=== PATIENT | male | born 1940 | race Caucasian/White ===

== ENCOUNTER 2016-07-31 19:36 | Inpatient (IN) | payer OTHER, MEDICARE ==
[~2016-07-31] VITALS: Ht 167.6 cm; Wt 69.0 kg
[2016-07-31] MEDS: ALBUTEROL 0.083% (NEB) 2.5 MG/3 ML AMP NEB SCH (02:00)
[~2016-07-31 19:36] MED LIST: ACET160O41 GTB; ASPI-535 GTB; ATOR10TA65 PO; DEXT37.55 PO; DEXT50DI2 INJ; DILT60TA29 PO; ENOX30DI10 SQ; GLUC1VIA7 IM; HYDR28CR43 TP; INSU100I22 SQ; MORP2CAR IV; NORM5DIS26 IJ; PANT40VI7 IV; RANI300T PO; [UNRECOGNIZED DRUG - CODE] IV; [UNRECOGNIZED DRUG - CODE] PO; [UNRECOGNIZED DRUG - OTHER] IV
--- NOTE | 2016-07-31 20:28 | RADRPT ---
PROCEDURE: XR Chest. CLINICAL INDICATION: Sepsis. TECHNIQUE: Chest x-ray, single view. COMPARISON: 10/14/2013. FINDINGS: The cardiac silhouette is magnified. Aortic arch atherosclerotic calcification is present. Low rain g volumes are observed. The lungs are clear. Skeletal structures and upper abdomen are unremarkabl e. IMPRESSION: No radiographic evidence of acute cardiopulmonary pathology. Low inspiratory lung volumes. RPTAT: HLST .Amber Orosco MD, MD Date Time Electronically viewed and signed by .Amber Orosco MD, MD on 07/31/2016 20:28 .T/
[2016-07-31 20:39] LABS: HEMATOCRIT 26.8 % (42.0-52.0); MEAN CORPUSCULAR HEMOGLOBIN 25.3 pg (29.0-33.0); MEAN CORPUSCULAR HGB CONC 33.7 g/dl (32.0-37.0); MEAN CORPUSCULAR VOLUME 75.1 fl (82.0-101.0); MEAN PLATELET VOLUME 9.1 fl (7.4-10.4); PLATELET COUNT 402 10^3/UL (140-440); RED BLOOD COUNT 3.57 10^6/ul (4.70-6.10); RED CELL DISTRIBUTION WIDTH 17.8 % (11.5-14.5); UNCORRECTED WBC 31.1 10^3/ul (4.8-10.8); WHITE BLOOD COUNT 31.1 10^3/ul (4.8-10.8)
[2016-07-31 20:45] LABS: CONDITION 1; SUSPECT 1
[2016-07-31 20:47] LABS: INR 0.99; PROTIME 13.1 Sec (12.2-14.2)
[2016-07-31 20:48] LABS: PARTIAL THROMBOPLASTIN TIME 29.2 Sec (25.0-35.0)
[2016-07-31] MEDS ORDERED: DILT120C77 GTB (20:51)
[2016-07-31] MEDS ORDERED: CHLO473M4 MM (20:54)
[2016-07-31] MEDS ORDERED: DOCU-144 GTB (20:55)
[2016-07-31] MEDS ORDERED: SODIUM CHLORIDE 0.9% 1L BAG IV* STA (20:55)
[2016-07-31 20:56] LABS: ALBUMIN 3.7 g/dl (3.3-4.9); POTASSIUM 5.7 mmol/L (3.5-5.1)
[2016-07-31] MEDS ORDERED: DOXA4TAB3 GTB (20:56)
[2016-07-31] MEDS ORDERED: DIGO125T6 GTB (20:56)
[2016-07-31] MEDS ORDERED: BISA10SU55 RC (20:57)
[2016-07-31 20:58] LABS: CREATININE 2.01 mg/dl (0.61-1.24)
[2016-07-31] MEDS ORDERED: OMEP20CA16 GTB (20:58)
[2016-07-31 20:59] LABS: ALBUMIN/GLOBULIN RATIO 1.05; BILIRUBIN,INDIRECT 0.1 mg/dl (0-1.1); BILIRUBIN,TOTAL 0.1 mg/dl (0.2-1.3); CALCIUM 11.6 mg/dl (8.4-10.2); TOTAL PROTEIN 7.2 g/dl (6.1-8.1)
[2016-07-31] MEDS ORDERED: MAGN400O4 GTB (20:59)
[2016-07-31 21:00] VITALS: TEMP 100.8
[2016-07-31] MEDS ORDERED: ENOX40DI14 SC (21:00)
[2016-07-31] MEDS ORDERED: ATOR20TA38 GTB (21:01)
[2016-07-31] MEDS ORDERED: NA P135E RC (21:02)
[2016-07-31] MEDS ORDERED: CRAN3875 GTB (21:04)
[2016-07-31] MEDS ORDERED: ASCO500S2 GTB (21:04)
[2016-07-31 21:05] LABS: ADD UMIC YES; URINE BLOOD (Dip) 3+ (NEGATIVE); URINE COLOR DK. RED (YELLOW); URINE KETONES (Dip) TRACE (NEGATIVE); URINE LEUKOCYTE ESTERASE (Dip) 2+ (NEGATIVE); URINE NITRITE (Dip) POSITIVE (NEGATIVE); URINE TOTAL PROTEIN (Dip) 4+ (NEGATIVE); URINE UROBILINOGEN (Dip) 1.0 E.U./dL (0.1-1.0)
[2016-07-31] MEDS ORDERED: ACET-2047 GTB ×2 (21:06→21:07)
[2016-07-31 21:08] LABS: URINE BILIRUBIN (Dip) NEGATIVE (NEGATIVE)
[2016-07-31] MEDS ORDERED: ACET-141 GTB (21:08)
[2016-07-31 21:09] LABS: TROPONIN-I 0.071 ng/ml (0.00-0.12)
[2016-07-31] MEDS ORDERED: LACTINEXG GTB (21:10)
[2016-07-31] MEDS ORDERED: ALBU2.5V3 NEB ×2 (21:10)
[2016-07-31 21:14] LABS: BACTERIA,URINE MODERATE; SQUAMOUS EPITHELIAL CELL,UR MODERATE; URINE RBCS >200 /HPF (0)
[2016-07-31 21:26] LABS: EOSINOPHILS # 0.6 10^3/ul (0.0-0.5); LYMPHOCYTES # 3.1 10^3/ul (0.8-2.9); MONOCYTE # 1.2 10^3/ul (0.3-0.9); NEUTROPHIL # 26.1 10^3/ul (1.6-7.5)
[2016-07-31 21:27] LABS: PLATELET ESTIMATE PLT APPEAR ADEQUATE; POLYCHROMASIA 1+
[2016-07-31] MEDS ORDERED: FERR220S3 GTB (21:33)
[2016-07-31] MEDS ORDERED: MULTI GTB (21:35)
[2016-07-31] MEDS ORDERED: FENO160T13 GTB (21:35)
[2016-07-31] MEDS ORDERED: VANCOMYCIN 1 GM (PMX) 250 ML IVPB STA (22:01)
[2016-07-31] MEDS ORDERED: PIPER-TAZO 3.375 GM IV (PMX) 100 ML IVPB STA (22:01)
[2016-07-31] MEDS ORDERED: DEXTROSE 50% 50 ML SYRINGE IV STA (22:04)
--- NOTE | 2016-07-31 22:11 | ERA ---
ER Documentation Chief Complaint Date/Time DATE: 07/31/16 TIME: 22:05 Chief Complaint BIBA from [facility],c/o hematuria & hyperglycemia accucheck >400 HPI This is a 76 year old male who presents to the emergency room for evaluation of hematuria and hypoglycemia from his fdc. According to his fdc his blood sugar was greater than 400, he did have blood in his [place] and was brought in for further evaluation. This patient is unable to give a history secondary to his clinical condition at this time. When I evaluated this patient he was tachycardic and did have a rectal temp of 100.4F ROS All systems reviewed and are negative except as per history of present illness. Medications Home Meds Reported Medications Multivitamins* (Theragran*) 1 Tab Tab, 1 TAB GTB DAILY, TAB 07/31/16 Fenofibrate, Micronized* (Fenofibrate*) 160 Mg Tablet, 160 MG GTB DAILY, TAB 07/31/16 Ferrous Sulfate (Ferrous Sulfate) 220 Mg/5 Ml Elixir, 7.5 ML GTB DAILY, BOTTLE 07/31/16 Acidophilus-Bulgaricus* (BD Lactinex*) 1 Pkt Packet, 1 PKT GTB BID, PACKET 07/31/16 Albuterol Sulfate* (Albuterol Sulfate* Neb) 0.083%-3 Ml Neb, 2.5 MG NEB Q6 Y for WHEEZING AND SOB, #30 VIAL 07/31/16 Albuterol Sulfate* (Albuterol Sulfate* Neb) 0.083%-3 Ml Neb, 2.5 MG NEB Q3H Y for WHEEZING AND SOB, #30 VIAL 07/31/16 Acetaminophen* (Acetaminophen*) 500 MG Extra Strength Tablet, 1000 MG GTB BID Y for REHAB, TAB 07/31/16 Acetaminophen* (Acetaminophen*) 650 Mg Tablet, 650 MG GTB Q4 Y for TRACH CHANGE , #30 TAB 07/31/16 Acetaminophen* (Acetaminophen*) 650 Mg Tablet, 650 MG GTB Q4 Y for ELEVATED TEMPERATURE, #30 TAB 07/31/16 Acetaminophen* (Acetaminophen*) 650 Mg Tablet, 650 MG GTB Q4 Y for MILD PAIN LEVEL 1-3, #30 TAB 07/31/16 Cran/Vitc/Mannose/Inulin/Brom (Uti-Stat Liquid) 3,875 Mg/30 Ml Liquid, 3875 MG GTB BID 07/31/16 Ascorbic Acid* (Vitamin C* Liq) 500 Mg/5 Ml Syrup, 500 MG GTB DAILY, ML 07/31/16 Na Phos,M-B/Na Phos,Di-Ba (ENEMA READY TO USE) 135 Ml Enema, 135 ML RC PRN Y for CONSTIPATION, ENEMA 07/31/16 Atorvastatin Calcium* (Atorvastatin Calcium*) 20 Mg Tablet, 20 MG GTB QHS, #30 TAB 07/31/16 Enoxaparin Sodium* (Lovenox*) 40 Mg/0.4 Ml Syringe, 40 MG SC DAILY, SYR 07/31/16 Magnesium Hydroxide* (Milk Of Magnesia*) 400 Mg/5 Ml Oral.susp, 30 ML GTB DAILY Y for CONSTIPATION, ML 07/31/16 Omeprazole* (Omeprazole*) 20 Mg Capsule.dr, 20 MG GTB DAILY, #30 CAP GIVE 30MIN PRIOR TO FEEDING 07/31/16 Bisacodyl (Dulcolax) 10 Mg Supp.rect, 10 MG RC PRN Y for CONSTIPATION, SUPP.RECT 07/31/16 Doxazosin Mesylate* (Doxazosin Mesylate*) 4 Mg Tablet, 4 MG GTB HS, TAB 07/31/16 Digoxin* (Lanoxin*) 0.125 Mg Tablet, 0.125 MG GTB DAILY, TAB 07/31/16 Docusate Sodium* (Colace*) 100 Mg Capsule, 100 MG GTB DAILY Y for CONSTIPATION, #30 CAP 07/31/16 Chlorhexidine Gluconate (Peridex) 473 Ml Mouthwash, 15 ML MM Q12, BOTTLE 07/31/16 Diltiazem Hcl* (Cardizem CD*) 120 Mg Cap.sr.24h, 120 MG GTB DAILY, #30 CAP 07/31/16 Glucagon* (Glucagen*) 1 Mg Soln, 1 MG IM Y [id number] NEEDED FOR UNCONCIOUS PATIENT OR NPO PATIENT WITHOUT IV ACCESS BLOOD GLUCOSE RESULT BELOW 70 REPEAT ABOVE TREATMENT EVERY 15 MINUTES UNTIL GLUCOSE IS GREATER THAN OR EQUAL TO 80 08/19/13 Aspirin Ec (Aspir 81) 81 Mg Tablet.dr, 81 MG GTB DAILY 08/19/13 Discontinued Reported Medications Levothyroxine Sodium* (Synthroid*) 112 Mcg Tablet, 112 MCG PO 10/14/13 Ranitidine Hcl* (Ranitidine Hcl*) 300 Mg Tablet, 300 MG PO 10/14/13 Insulin Aspart (Novolog FlexPen) 100 Unit/1 Ml Insuln.pen, 100 UNIT SQ Q4 SLIDING SCALE MILD ALGORITHM. NOVOLOG MEALTIME INSULIN COVERAGE BLOOD SUGAR: 70-140 0 UNITS 141-180 1 UNIT 181-220 2 UNITS [phone] 3 UNITS 261-300 4 UNITS 301-350 5 UNITS ABOVE 350 CALL PRESCRIBER FOR CORRECTION AND ADJUSTMENT OF MEALTIME/BASAL DOSE. 08/19/13 Normal Saline (Normal Saline Flush) 5 Ml Disp.syrin, 10 ML IJ DAILY WITH PROTONIX IVP 08/19/13 Pantoprazole* (Protonix* IV) 40 Mg Soln, 40 MG IV DAILY 08/19/13 Hydrocortisone (Neosporin) 28 Gm Cream..g., 30 GM TP TID APPLY TO TRACH SITE 08/19/13 Morphine Sulfate* (Morphine*) 2 Mg/1 Ml Cartridge, 2 MG IV Q4 NEEDED 08/19/13 Dextrose (Glutose) 15 Gm Gel..gm., 15 GM PO Y FOR UNCONCIOUS OR NPO PATIENT WITHOUT IV ACCESS FOR BLOOD GLUCOSE READING BELOW 70 IF UNCONCIOUS SQUEEZE GEL INTO LOWER CHEEK AND POSITION PATIENT ON SIDE REPEAT ABOVE TREATMENT EVERY 15 MIN UNTIL GLUCOSE IS GREATER THAN OR EQUAL TO 80 08/19/13 Dextrose (Glutose) 15 Gm Gel..gm., 15 GM PO Y Q15 MIN NEEDED FOR PATIENT WHO ARE ABLE TO SWALLOW FOR BLOOD GLUCOSE RESULT BELOW 51 REPEAT ABOVE TREATMENT EVERY 15 MIN UNTIL GLUCOSE IS GREATER THAN OR EQUAL TO 80 READINGS. 08/19/13 Dextrose (Glutose) 15 Gm Gel..gm., 15 GM PO Y Q15 MIN NEEDED FOR PATIENT WHO ARE ABLE TO SWALLOW FOR BLOOD GLUCOSE RESULT 51-69 REPEAT ABOVE TREATMENT EVERY 15 MIN UNTIL GLUCOSE IS GREATER THAN OR EQUAL TO 80 READINGS. 08/19/13 Enoxaparin Sodium* (Lovenox*) 30 Mg/0.3 Ml Disp.syrin, 30 MG SQ DAILY 08/19/13 Dextrose* (D50W Syringe*) 50 Ml Soln, 50 ML INJ Y Q15MIN NEEDED FOR UNCONCIOUS PATIENT OR NPO PATIENT WITH IV ACCESS FOR BLOOD GLUCOSE BELOW 51 REPEAT ABOVE TREATMENT EVERY 15 MIN UNTIL GLUCOSE IS GREATER THAN OR EQUAL TO 80 READINGS 08/19/13 Dextrose (Glutose) 15 Gm Gel..gm., 15 GM PO Y NEEDED FOR PATIENT ABLE TO SWALLOW FOR BLOOD SUGAR 51-69 08/19/13 Glucagon* (Glucagen*) 1 Mg Soln, 1 MG IM NEEDED FOR UNCONCIOUS OR NPO PATIENT FOR BLOOD SUGAR BELOW 70 08/19/13 Enoxaparin Sodium* (Lovenox*) 30 Mg/0.3 Ml Disp.syrin, 30 MG SQ DAILY 08/19/13 Diltiazem Hcl* (Cardizem*) 60 Mg Tablet, 30 MG PO Q8 HOLD FOR SBP LESS THAN 90 08/19/13 Dextrose* (D50W Syringe*) 50 Ml Soln, 50 ML INJ FOR BLOOD SUGAR 51-69 UNCONCIOUS OR NPO PATIENT WITH IV ACCESS REPEAT ABOVE TREATMENT EVERY 15 MINUTES UNTIL GLUCOSE IS GREATER THAN OR EQUAL TO 80 READINGS. 08/19/13 Dextrose (D5w) 100 Ml Iv.soln., 1000 ML IV 100ML/HR 08/19/13 Cefepime Hcl (MAXIPIME 1GM/D5W) 1 Gm/50 Ml Soln, 1 GM IV Q12 08/19/13 Atorvastatin Calcium (Atorvastatin Calcium) 10 Mg Tab, 20 MG PO DAILY 08/19/13 Acetaminophen* (Acetaminophen* Susp) 160 Mg/5 Ml Oral.susp, 650 MG GTB Q4 ACETAMINOPHEN 650MG/20.3ML CUP LIQUID TYLENOL MAXIMUM TOTAL ACETAMONIOPHEN 5 DOSES/24 HOURS CHECK FOR OTHER MEDS CONTAINING ACETAMINOPHEN 08/19/13 Allergies Allergies: Coded Allergies: No Known Allergy (Unverified , 07/31/16) PMhx/Soc History of Surgery: Yes (G-tube) Anesthesia Reaction: No Hx Neurological Disorder: Yes (CVA) Hx Respiratory Disorders: No (TRACH) Hx Cardiac Disorders: No Hx Psychiatric Problems: No Hx Miscellaneous Medical Probl: Yes (dyslipidemia, hematuria, neurogenic bladder) Hx Alcohol Use: No Hx Substance Use: No Hx Tobacco Use: No Smoking Status: Unknown if ever smoked Physical Exam Vitals Vital Signs Date Time Temp Pulse Resp B/P Pulse Ox O2 Delivery O2 Flow Rate FiO2 07/31/16 21:00 100.8 07/31/16 20:52 5 07/31/16 19:58 98.0 102 19 113/57 96 Physical Exam INITIAL VITAL SIGNS: Reviewed by me GENERAL: The patient is in ill-appearing older gentleman HEENT: Tracheostomy pupils equal, round, and reactive to light. EOMI. There is no scleral icterus. NECK: C-spine is soft and supple, there is no meningismus. There is no cervical lymphadenopathy. LUNGS: Clear to auscultation bilaterally. There are no rales, wheezes or rhonchi. HEART: Tachycardia, no murmurs, clicks, rubs or gallops. ABDOMEN: PEG tube in place soft, non-tender, non-distended. There are bowel sounds in all four quadrants. No rebound or guarding. EXTREMITIES: There is no peripheral cyanosis or edema. No focal swelling or erythema. NEUROLOGICAL: The patient moves all four extremities with 5/5 strength. Cranial nerves II - XII are intact. Normal gait. Alert and oriented SKIN: Warm to touch, there is no apparent rash or petechiae. HEME/LYMPHATIC: There is no evidence of excessive bruising or lymphedema. PSYCHIATRIC: The patient does not appear anxious or depressed. Result Diagram: 07/31/16201807/31/162018 Results 24 hrs Laboratory Tests Test 07/31/16 20:19 07/31/16 20:47 Activated Partial Thromboplast Time 29.2Sec Alanine Aminotransferase (ALT/SGPT) 23IU/L Albumin 3.7g/dl Albumin/Globulin Ratio 1.05 Alkaline Phosphatase 95IU/L Anion Gap 21 Aspartate Amino Transf (AST/SGOT) 20IU/L Blood Morphology Comment Blood Urea Nitrogen 63mg/dl Calcium Level 11.6mg/dl Carbon Dioxide Level 26mmol/L Chloride Level 88mmol/L Creatinine 2.01mg/dl Direct Bilirubin 0.00mg/dl Eosinophils # 0.610^3/ul Eosinophils % 2.0% Globulin 3.50g/dl Glucose Level 277mg/dl Hematocrit 26.8% Hemoglobin 9.0g/dl INR International Normalized Ratio 0.99 Indirect Bilirubin 0.1mg/dl Lactic Acid Level 3.4mmol/L Lymphocytes # 3.110^3/ul Lymphocytes % 10.0% Mean Corpuscular Hemoglobin 25.3pg Mean Corpuscular Hemoglobin Concent 33.7g/dl Mean Corpuscular Volume 75.1fl Mean Platelet Volume 9.1fl Monocytes # 1.210^3/ul Monocytes % 4.0% Neutrophils # 26.110^3/ul Neutrophils % 84.0% Nucleated Red Blood Cells % 1.0/100WBC Platelet Count 09597^3/UL Platelet Estimate PLT APPEAR ADEQUATE Polychromasia 1+ Potassium Level 5.7mmol/L Prothrombin Time 13.1Sec Prothrombin Time Ratio 1.0 Red Blood Count 3.5710^6/ul Red Cell Distribution Width 17.8% Sodium Level 129mmol/L Total Bilirubin 0.1mg/dl Total Protein 7.2g/dl Troponin I 0.071ng/ml White Blood Count 31.110^3/ul Urine Bacteria MODERATE Urine Bilirubin NEGATIVE Urine Clarity CLEAR Urine Color DK. RED Urine Glucose 0.25%% Urine Hemoglobin 3+ Urine Ketones TRACE Urine Leukocyte Esterase 2+ Urine Microscopic RBC >200/HPF Urine Microscopic WBC >50/HPF Urine Nitrite POSITIVE Urine Specific Iron 1.020 Urine Squamous Epithelial Cells MODERATE Urine Total Protein 4+ Urine Urobilinogen 1.0 E.U./dL Urine pH 7.0 Current Medications Medications (Trade) Dose Ordered Sig/Davidson Route PRN Reason Start Time Stop Time Status Last Admin Dose Admin Sodium Chloride 2470 ml 2,470 ml BOLUS OVER 2 HOURS STAT IV* 07/31/16 20:55 07/31/16 20:56 DC 07/31/16 21:01 Vancomycin HCl 250 ml @ 125 mls/hr ONCE STAT IVPB 07/31/16 22:01 08/01/16 00:00 Piperacillin Sod/ Tazobactam Sod 100 ml @ 200 mls/hr ONCE STAT IVPB 07/31/16 22:01 07/31/16 22:30 Calcium Gluconate/ Sodium Chloride (Ca Gluc/NS) 110 ml @ 110 mls/hr ONCE ONCE IVPB 07/31/16 22:30 07/31/16 23:29 Insulin Human Regular (Humulin R) 10 unit ONCE ONCE IV 07/31/16 22:30 07/31/16 22:31 Dextrose 50 ml 50 ml ONCE STAT IV 07/31/16 22:04 07/31/16 22:06 DC Sodium Chloride (NS) 1,000 ml @ 75 mls/hr [id number] IV 07/31/16 22:17 UNV IV Flush (NS 3 ml) 3 ml PER PROTOCOL IV 07/31/16 22:30 UNV Lorazepam (Ativan) 0.5 mg Q6H PRN IV ANXIETY 07/31/16 22:30 UNV Ondansetron HCl (Zofran Inj) 4 mg Q6H PRN IV NAUSEA AND/OR VOMITING 07/31/16 22:30 UNV Nitroglycerin (Nitroglycerin (Sl Tab) 0.4 Mg) 1 tab Q5M PRN SL CHEST PAIN 07/31/16 22:30 UNV Acetaminophen (Tylenol Supp) 650 mg Q6H PRN LA PAIN LEVEL 1-3 OR FEVER 07/31/16 22:30 UNV Morphine Sulfate (morphine) 2 mg Q4H PRN IV PAIN LEVEL 7-10 07/31/16 22:30 UNV Bisacodyl (Dulcolax Supp) 10 mg DAILY PRN LA CONSTIPATION 07/31/16 22:30 UNV Famotidine (Pepcid Iv) 20 mg Q12 IV 08/01/16 09:00 UNV Insulin Aspart (Novolog Insulin Pen) NOVOLOG *MILD* ALGORI... Q4 SC 08/01/16 01:00 UNV Miscellaneous Information (* Miscellaneous Pharmacy Order) HYPOGLYCEMIA PROTOCOL w... ONCE ONCE XX 07/31/16 22:30 07/31/16 22:31 UNV Miscellaneous Information (* Miscellaneous Pharmacy Order) Discontinue Glyburide, Glipizide,... ONCE ONCE XX 07/31/16 22:30 07/31/16 22:31 UNV Miscellaneous Information (* Miscellaneous Pharmacy Order) Discontinue all previ... ONCE ONCE XX 07/31/16 22:30 07/31/16 22:31 UNV Albuterol (Ventolin Hfa) 4 puff Q2H RESP THERAPY PRN INH SHORTNESS OF BREATH 07/31/16 22:30 UNV Albuterol (Proventil 0.083% (Neb)) 2.5 mg Q3H PRN NEB WHEEZING AND SOB 07/31/16 22:30 UNV Albuterol (Proventil 0.083% (Neb)) 2.5 mg Q6 PRN NEB WHEEZING AND SOB 07/31/16 22:30 UNV Ascorbic Acid (Vitamin C) 500 mg DAILY GTB 08/01/16 09:00 UNV Procedures/MDM Chest X-ray 1V Interpreted by me: Soft Tissue: No acute abnormalities Bones: No acute abnormalities Mediastinum/Cardiac Silhouette/Lungs: [No acute abnormalities] EKG: Rate/Rhythm: Sinus tachycardia QRS, ST, T-waves: [No changes consistent w/ acute ischemia] Impression: [No evidence of ischemia or arrhythmia] This is a 76-year-old male who presents to the emergency room for evaluation of a leukocytosis. This patient was sent from his fdc, further history was unobtainable from this patient. He did have a rectal temp of 100.8F. I did note that he was also tachycardic and the patient did undergo a septic workup with did show acute urinary tract infection with leukocytosis of 31,000 and lactic acid greater than 3 consistent with severe sepsis. The patient was given greater than 30 cc/kg of IV normal saline, he was started on vancomycin and Zosyn, there is no need for IV vasopressors at this time as the patient's mean arterial pressure is greater than 65. This patient will be admitted at this time to the telemetry floor under the care of our panel physician Dr. Razo. This patient was found also of acute renal failure with hyperkalemia. He was given calcium gluconate, Kayexalate, insulin, and D50. This patient also has hyponatremia, will be treated with IV fluids at this time. Patient's infectious symptoms have not stabilized and the patient is at risk of rapid decompensation. The patient will be admitted for careful hydration, antibiotic therapy, and infectious source control. Severe Sepsis Assessment: Infectious Source: Cystitis End organ damage indicated by: [Lactate > 2.0 mmol/L Hypotension( SBP < 90 or >40 mmHG drop or MAP < 65) Acute Resp Failure (sat < 92% w/o oxygen) Stuffer > 2.0 INR > 1.5 Plt < 100 Bili > 2] Severe Sepsis Managment: Blood Cultures X 2 before broad spectrum antibiotics initiated within 3 hours of recognition. 30 ml/kg NS bolus Completed Initial Lactate: 3.4 Repeat Lactate pending Critical Care: Time: 48 minutes Treatments/Evaluations: Emergent fluid management, while maintaining close respiratory support. Immediate broad spectrum antibiotic therapy. Simultaneous assessment for possible sources in order to direct therapy. Consideration for invasive and chemical support to prevent respiratory or cardiac collapse. Septic Shock Assessment (1 hour post 30 ml/kg fluid bolus): Hypotension (SBP < 90 or 40 mmHg drop, MAP < 65): [No] Lactic acid > 4.0 [No] Perfusion Reassessment for Septic Shock: Temp 98], [id number] RR 18, BP 113/57 Heart Exam: [Tachycardic] Lung Exam: [No Crackles] Capillary Refill: [Delayed] Peripheral Pulses: [Radially present] Skin: [Mottled, pale] Hypotensive Treatment (not required for isolated lactic acid elevation): Comfort Care: No Central LIne: [XOXOXO] Vasopressor started: [norepinephrine] I considered further perfusion assessment with CVP measurement, SCVO2, bedside ultrasound volume assessment, passive leg raise, trial of further fluid bolus. And preceded with further fluid bolus Accepting Care Team: Current data and ongoing care discussed. Time: Time of admission Primary Provider: José Consulting: [[email or web address]] Outstanding Data: none Departure Diagnosis: Primary Impression: Severe sepsis Additional Impressions: Acute cystitis Hyperkalemia Hyponatremia Acute renal failure Condition: Serious RICK CARTER DO Jul 31, 2016 22:10
[2016-07-31] MEDS: SOD CHLORIDE 0.9% 1,000 ML IV SCH (22:17)
[2016-07-31] MEDS ORDERED: SOD CHLORIDE 0.9% 1,000 ML IV SCH (22:27)
[2016-07-31] MEDS ORDERED: CALCIUM GLUCONATE 10% 1 GM in SOD CHLORIDE 0.9% 100 ML IVPB ONE (22:30)
[2016-07-31] MEDS ORDERED: NACL 0.9% 3 ML SYG IV SCH (22:30)
[2016-07-31] MEDS ORDERED: INSULIN REGULAR, HUMAN 100 UNIT/1 ML 3ML VIAL IV ONE (22:30)
[2016-07-31] MEDS ORDERED: ALBUTEROL 0.083% (NEB) 2.5 MG/3 ML AMP NEB PRN (22:30)
[2016-07-31] MEDS ORDERED: morphine 2 MG INJ IV PRN (22:30)
[2016-07-31] MEDS ORDERED: ALBUTEROL HFA 8 GM INHALER INH PRN (22:30)
[2016-07-31] MEDS ORDERED: VANCOMYCIN IV PER PHARMACY XX SCH (22:30)
[2016-07-31] MEDS ORDERED: MAGNESIUM HYDROXIDE 30ML CUP GTB PRN (22:30)
[2016-07-31] MEDS ORDERED: ACETAMINOPHEN 650 MG SUPP PR PRN (22:30)
[2016-07-31] MEDS ORDERED: NITROGLYCERIN (SL) 0.4 MG TAB SL PRN (22:30)
[2016-07-31] MEDS ORDERED: LORAZEPAM 2 MG INJ IV PRN (22:30)
[2016-07-31] MEDS ORDERED: ONDANSETRON 4 MG INJ IV PRN ×2 (22:30)
[2016-07-31] MEDS ORDERED: BISACODYL 10 MG SUPP PR PRN (22:30)
[2016-07-31] MEDS ORDERED: ACETAMINOPHEN 325 MG TAB PO PRN (22:30)
[2016-07-31 22:50] LABS: CHOLESTEROL 103 mg/dl (100-200)
[2016-07-31 22:51] LABS: HDL CHOLESTEROL 17 mg/dl (31-75); MAGNESIUM 2.5 mg/dl (1.7-2.5); TRIGLYCERIDES 434 mg/dl (0-149)
--- NOTE | 2016-07-31 22:54 | HP ---
Date/Time of Note Date/Time of Note DATE: 07/31/16 TIME: 22:42 Assessment/Plan VTE Prophylaxis VTE Prophylaxis Intervention: contraindicated VTE Contraindication Reason: bleeding Lines/Catheters Urinary Cath still in place: Yes Reason Cath still needed: urinary retention Assessment/Plan Assessment/Plan 76 yo male with a past medical history of trach/peg, SVT, anemia of chronic disease, indwelling catheter 2/2 neurogenic bladder, ASHD, essential hypertension, BPH, type II DM, CVA, dyslipidemia, GERD, previous GI bleed, COPD , who was brought in via ambulance from [facility] for evaluation of hematuria. 1. Hematuria - multifactorial - will admit the patient to telemetry - consult urology, avoid lovenox/aspirin - monitor UOP 2. Sepsis 2/2 UTI - tachycardia/leukocytosis - broad spectrum antibiotics, cultures drawn, ID c/s 3. ARF - 2/2 to #2 - dehydration - will continue with IVF 4. Trach dependent respiratory failure - will consult pulm 5. CVA with residual weakness/contractures - aspirin held for gross hematuria 6. Essential hypertension - continue with current SNF medications 7. Type II DM - ISS, check [id number] 8. GERD - pepcid IV 9. Anemia of chronic disease - monitor H/H, if < 8 g/dL consider tranfusion 10. Neurogenic bladder - see #1 11. Dyslipidemia - continue with statin 12. COPD - breathing treatments prn 13. Gi ppx - pepcid 14. DVT ppx - scds as per clinical course. this history and physical took greater then 45 minutes to complete HPI/ROS Admit Date/Time Admit Date/Time 07/31/2016, 10:42 pm Hx of Present Illness 76 yo male with a past medical history of trach/peg, SVT, anemia of chronic disease, indwelling catheter 2/2 neurogenic bladder, ASHD, essential hypertension, BPH, type II DM, CVA, dyslipidemia, GERD, previous GI bleed, COPD , who was brought in via ambulance from [facility] for evaluation of hematuria. All this information was gathered from the Chart and ED physician as he is not verbal communicating. 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 Medical History: coronary artery disease, diabetes, GERD, GI bleed, high cholesterol, hypertension, urinary tract infection Past Surgical History trach, PEG, cystoscopy, colonoscopy Family History Significant Family History: no pertinent family hx Social History Alcohol Use: none Smoking Status: Unknown if ever smoked Drug Use: none Exam/Review of Systems Vital Signs Vitals Vital Signs Date Time Temp Pulse Resp B/P Pulse Ox O2 Delivery O2 Flow Rate FiO2 07/31/16 21:00 100.8 07/31/16 20:52 5 07/31/16 19:58 102 19 113/57 96 Exam Exam Gen Erin: alert to self HEENT: NC/AT, PERRLA, trach, with copious secretions NECK: supple, no thyromegaly THORAX: symmetrical, no obvious deformities CV: S1S2, tachycardiac, no M/G/R Lungs: decreased aeration bibasilar, no wheezing/rhonchi Abd: soft, NT/ND, +BS, no rebound, no guarding, neg HSM, PEG site C/D/I, thapa noted EXT: no edema, no ecchymosis, no clubbing, contractures noted Neuro: contractures Psych: withdrawn Skin: clammy Labs Result Diagram: 07/31/16201807/31/162018 Medications Medications Current Medications Calcium Gluconate 1 gm/Sodium Chloride 110 ml @ 110 mls/hr ONCE ONCE IVPB ; Start 07/31/16 at 22:30; Stop 07/31/16 at 23:29 Sodium Chloride (NS) 1,000 ml @ 75 mls/hr [id number] IV ; Start 07/31/16 at 22:17; Status UNV Lorazepam (Ativan) 0.5 mg Q6H PRN IV ANXIETY; Start 07/31/16 at 22:30; Status UNV Ondansetron HCl (Zofran Inj) 4 mg Q6H PRN IV NAUSEA AND/OR VOMITING; Start 07/31 at 22:30; Status UNV Nitroglycerin (Nitroglycerin (Sl Tab) 0.4 Mg) 1 tab Q5M PRN SL CHEST PAIN; Start 07/31/16 at 22:30; Status UNV Acetaminophen (Tylenol Supp) 650 mg Q6H PRN [place] PAIN LEVEL 1-3 OR FEVER; Start 07/31/16 at 22:30; Status UNV Morphine Sulfate (morphine) 2 mg Q4H PRN IV PAIN LEVEL 7-10; Start 07/31/16 at 22:30; Status UNV Bisacodyl (Dulcolax Supp) 10 mg DAILY PRN CA CONSTIPATION; Start 07/31/16 at 22: 30; Status UNV Famotidine (Pepcid Iv) 20 mg Q12 IV ; Start 08/01/16 at 09:00; Status UNV Insulin Aspart (Novolog Insulin Pen) NOVOLOG *MILD* ALGORI... Q4 SC ; Start 05/08 at 01:00; Status UNV Miscellaneous Information (* Miscellaneous Pharmacy Order) HYPOGLYCEMIA PROTOCOL w... ONCE ONCE XX ; Start 07/31/16 at 22:30; Stop 07/31/16 at 22:31; Status UNV Miscellaneous Information (* Miscellaneous Pharmacy Order) Discontinue Glyburide , Glipizide,... ONCE ONCE XX ; Start 07/31/16 at 22:30; Stop 07/31/16 at 22:31; Status UNV Miscellaneous Information (* Miscellaneous Pharmacy Order) Discontinue all previ... ONCE ONCE XX ; Start 07/31/16 at 22:30; Stop 07/31/16 at 22:31; Status UNV Albuterol (Proventil 0.083% (Neb)) 2.5 mg Q3H PRN NEB WHEEZING AND SOB; Start 07/31/16 at 22:30; Status UNV Albuterol (Proventil 0.083% (Neb)) 2.5 mg Q6 PRN NEB WHEEZING AND SOB; Start at 22:30; Status UNV Ascorbic Acid (Vitamin C) 500 mg DAILY GTB ; Start 08/01/16 at 09:00; Status UNV Atorvastatin Calcium (Lipitor) 20 mg QHS GTB ; Start 08/01/16 at 21:00; Status UNV Chlorhexidine Gluconate (Peridex) 15 ml Q12 MM ; Start 08/01/16 at 09:00; Status UNV Digoxin (Digoxin) 0.125 mg DAILY GTB ; Start 08/01/16 at 09:00; Status UNV Diltiazem HCl (Cardizem Cd) 120 mg DAILY PO ; Start 08/01/16 at 09:00; Status UNV Doxazosin Mesylate (Cardura) 4 mg HS GTB ; Start 08/01/16 at 21:00; Status UNV Ferrous Sulfate (Ferrous Sulfate) 330 mg DAILY GTB ; Start 08/01/16 at 09:00; Status UNV Magnesium Hydroxide (Milk Of Mag) 30 ml DAILY PRN GTB CONSTIPATION; Start at 22:30; Status UNV Multivitamins Therapeutic (Theragran) 1 tab DAILY GTB ; Start 08/01/16 at 09:00 ; Status UNV Miscellaneous Information 1 pkt BID GTB ; Start 08/01/16 at 09:00; Status UNV Miscellaneous Information 3,875 mg BID GTB ; Start 08/01/16 at 09:00; Status UNV Miscellaneous Information 160 mg 160 mg DAILY GTB ; Start 08/01/16 at 09:00; Status UNV Cefepime HCl 50 ml @ 100 mls/hr Q12 IVPB ; Start 08/01/16 at 09:00; Status UNV Sodium Chloride (NS) 1,000 ml @ 125 mls/hr Q8H IV ; Start 07/31/16 at 22:27; Stop 08/01/16 at 06:26 Procedures Procedures CXR IMPRESSION: No radiographic evidence of acute cardiopulmonary pathology. Low inspiratory lung volumes. EV PEMBERTON MD Jul 31, 2016 22:53
[2016-07-31 23:22] LABS: THYROID STIMULATING HORMONE 0.651 MIU/L (0.465-4.680)
[2016-07-31] MEDS ORDERED: GLUCOSE GEL 15 GRAM TUBE BUCCAL PRN (23:30)
[2016-07-31] MEDS ORDERED: GLUCOSE GEL 15 GRAM TUBE PO PRN ×2 (23:30)
[2016-07-31] MEDS ORDERED: DEXTROSE 50% 50 ML SYRINGE IV PRN ×2 (23:30)
[2016-07-31] MEDS ORDERED: GLUCAGON 1 MG INJ IM PRN (23:30)
[2016-08-01] VITALS (11 sets, daily range): BP systolic 91–139; BP diastolic 52–80; PULSE 101–117; RESP 18–19; Ht 167.6 cm; Wt 69.0 kg
[2016-08-01] MEDS: INSULIN ASPART [NOVOLOG] 3 ML PEN SC SCH ×7 (01:00→22:19)
[2016-08-01 07:19] LABS: HEMATOCRIT 22.1 % (42.0-52.0); HEMOGLOBIN 7.4 g/dl (14.0-18.0); MEAN CORPUSCULAR HEMOGLOBIN 25.2 pg (29.0-33.0); MEAN CORPUSCULAR HGB CONC 33.4 g/dl (32.0-37.0); MEAN CORPUSCULAR VOLUME 75.4 fl (82.0-101.0); MEAN PLATELET VOLUME 9.1 fl (7.4-10.4); PLATELET COUNT 341 10^3/UL (140-440); RED BLOOD COUNT 2.92 10^6/ul (4.70-6.10); RED CELL DISTRIBUTION WIDTH 17.5 % (11.5-14.5); UNCORRECTED WBC 25.6 10^3/ul (4.8-10.8); WHITE BLOOD COUNT 25.6 10^3/ul (4.8-10.8)
[2016-08-01 07:21] LABS: CONDITION 1; LH ANALYZER COMMENTS 1; SUSPECT 1
[2016-08-01 07:58] LABS: POTASSIUM 5.4 mmol/L (3.5-5.1)
[2016-08-01 08:01] LABS: CALCIUM 10.4 mg/dl (8.4-10.2); CREATININE 2.07 mg/dl (0.61-1.24)
[2016-08-01] MEDS ORDERED: SOD CHLORIDE 0.9% 250 ML IV* ONE (08:19)
[2016-08-01] MEDS ORDERED: CEFEPIME 1GM/50 ML (PMX) 50 ML IVPB SCH (09:00)
[2016-08-01] MEDS ORDERED: FAMOTIDINE 20 MG INJ IV SCH (09:00)
[2016-08-01] MEDS ORDERED: NON-FORMULARY/PATIENT OWN MED (Fenofibrate, Micronized* (Fenofibrate*) 160 MG) GTB SCH (09:00)
[2016-08-01] MEDS ORDERED: FERROUS SULFATE 220 MG/5 ML ML GTB SCH (09:00)
[2016-08-01] MEDS ORDERED: NON-FORMULARY/PATIENT OWN MED (Cran/Vitc/Mannose/Inulin/Brom (Uti-Stat Liquid) 3,875 MG) GTB SCH (09:00)
[2016-08-01] MEDS ORDERED: ASCORBIC ACID 100 MG/ML 120ML BTL GTB SCH (09:00)
[2016-08-01] MEDS ORDERED: [UNRECOGNIZED DRUG - OTHER] GTB SCH (09:00)
[2016-08-01 09:19] LABS: EOSINOPHILS # 0.3 10^3/ul (0.0-0.5); LYMPHOCYTES # 1.3 10^3/ul (0.8-2.9); NEUTROPHIL # 22.5 10^3/ul (1.6-7.5)
[2016-08-01] MEDS: ALBUTEROL 0.083% (NEB) 2.5 MG/3 ML AMP NEB SCH ×3 (09:34→19:33)
[2016-08-01] MEDS: ASCORBIC ACID 500 MG TAB GTB SCH (10:36)
[2016-08-01] MEDS: CHLORHEXIDINE GLUCONATE 15 ML UD CUP MM SCH ×2 (10:36→22:12)
[2016-08-01] MEDS: FERROUS SULFATE 60 MG/ML 5ML CUP GTB SCH (10:36)
[2016-08-01] MEDS: MULTIVITAMINS THERAPEUTIC TAB GTB SCH (10:37)
[2016-08-01] MEDS: LACTOBACILLUS CHEW TAB GTB SCH ×2 (10:37→22:09)
[2016-08-01] MEDS: FAMOTIDINE 20 MG INJ IV SCH (10:37)
[2016-08-01] MEDS: FENOFIBRATE 145 MG TAB GTB SCH (10:37)
[2016-08-01] MEDS: DILTIAZEM (CD) 120 MG CAP PO SCH (10:40)
[2016-08-01] MEDS: CEFEPIME 2GM/50 ML IVPB SCH (11:08)
[2016-08-01] MEDS: SOD CHLORIDE 0.9% 1,000 ML IV SCH (11:37)
--- NOTE | 2016-08-01 12:55 | CONS ---
DATE OF ADMISSION: 07/31/2016 DATE OF CONSULTATION: 08/01/2016 TYPE OF CONSULTATION: Infectious Disease. REASON FOR CONSULTATION: Antibiotic management. HISTORY OF PRESENT ILLNESS: Kimberley Blackwood is a 76-year-old Greek [place] male with an ext ensive past medical history who comes in with fevers and is being seen for antibiotic management. His past problems include: 1. 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 2. Dysphagia, status post G-tube. 3. SVT. 4. Anemia of chronic disease. 5. Indwelling catheter secondary to neurogenic bladder. 6. Atherosclerotic cardiovascular disease. 7. Hypertension. 8. BPH. 9. Type 2 diabetes mellitus. 10. Cerebrovascular accident. 11. Dyslipidemia. 12. GERD. 13. Previous GI bleed. 14. COPD. The patient was brought in by ambulance from the [facility] for evaluation of hematuri a. He is nonverbal. PAST MEDICAL HISTORY: As outlined. 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 SURGICAL HISTORY: Status post trach, PEG, cystoscopy, colonoscopy. FAMILY HISTORY: Noncontributory. SOCIAL HISTORY: He does not smoke, drink or abuse drugs. ALLERGIES: NONE TO PENICILLIN, SULFA OR FOODS. MEDICATIONS: Per chart. REVIEW OF SYSTEMS: Noncontributory. PHYSICAL EXAMINATION: GENERAL: The patient is an elderly appearing male who is awake, noncommunicative, in no acute distr ess. VITAL SIGNS: Stable. He is afebrile. SKIN: Without generalized rash. HEENT: Within normal limits. NECK: Tracheostomy in place with copious secretions. Neck is supple. LYMPH NODES: None palpable. CHEST: Decreased breath sounds at the bases. HEART: Without murmur or gallop. ABDOMEN: Soft, nontender, without organosplenomegaly or masses. HEART: is tachycardic. CHEST: Decreased breath sounds at the bases is noted without rhonchi or wheezes. ABDOMEN: Soft, nontender without organosplenomegaly or masses. G-tube in place without discharge o r cellulitis. EXTREMITIES: Without cyanosis, clubbing, or edema. RECTAL AND GENITAL: Exams deferred. NEUROLOGIC EVALUATION: The patient is withdrawn, contractures. LABORATORY DATA: White count 31.1, H and H of 9 and 26.8, platelet count is 402,000. BUN and creat inine 63/2.0. Glucose is 277. BUN and creatinine 129/5.7. IMAGING STUDIES: Chest x-ray shows no radiographic evidence of acute pulmonary pathology. IMPRESSION AND PLAN: The patient does come in with fever and was started on vancomycin and cefepime . The patient did have blood in his urine and may have a urinary tract infection. Cultures are pen ding. I will dictate my findings to the hospitalist. Dictated By: VEGA BRUNER MD, JD/GENOVEVA Conf#: [id number] DID#: [id number]
[2016-08-01] MEDS: DIGOXIN 0.125 MG TAB GTB SCH (13:00)
--- NOTE | 2016-08-01 15:02 | CONS ---
DATE OF ADMISSION: 07/31/2016 DATE OF CONSULTATION: TYPE OF CONSULTATION: Pulmonary. REFERRING PHYSICIAN: Alex Kumar MD REASON FOR CONSULTATION: Chronic respiratory failure. HISTORY OF PRESENT ILLNESS: This is a 76-year-old male with a history of chronic respiratory failur e, trach-dependent, history of dysphagia status post G-tube placement, history of SVT, hypertension, atherosclerotic heart disease, anemia of chronic disease, neurogenic bladder with indwelling cathet er, BPH, type 2 diabetes mellitus, history of CVA, dyslipidemia, GERD, history of GI bleed and COPD, who was brought from the subacute care facility with findings of hematuria. He was found to have e vidence of sepsis and UTI and acute renal failure, and subsequently hospitalized. Bladder irrigatio n was started. Cultures were obtained. The patient was started on broad-spectrum antibiotics. Cur rently, the patient remains on oxygen via tracheostomy tube and is saturating 98%. The patient is q uite encephalopathic and is unable to provide any information. REVIEW OF SYSTEMS: Unable to obtain. PAST MEDICAL HISTORY: As mentioned above. ALLERGIES: NO KNOWN ALLERGIES. SOCIAL HABITS: Resident of a subacute care facility. FAMILY HISTORY: Unknown at this time. PHYSICAL EXAMINATION: VITAL SIGNS: Blood pressure 106/52, pulse 90, respirations 18, temperature 98.5. Currently on 28% FIO2, saturating 100%. HEENT: Pupils are equal and reactive to light. Anicteric sclerae. NECK: Supple, no JVD noted. No cervical lymphadenopathy noted. No carotid bruits heard. Tracheos katie site clear. LUNGS: Diminished breath sounds bilaterally with few scattered rhonchi. CARDIOVASCULAR: S1, S2 normal. ABDOMEN: Soft, nontender. G-tube in place. EXTREMITIES: No clubbing or cyanosis noted. Contractures are present in the upper extremities. NEUROLOGIC: The patient is severely encephalopathic. LABORATORY DATA: WBC 25.6, hemoglobin 7.4, hematocrit 22.1, platelets 341. Sodium 132, potassium 5 .4, chloride 93, CO2 of 23, BUN 64, creatinine 2.07, glucose 251. UA shows greater than 200 RBCs, g reater than 50 WBCs, nitrite is positive, leukocyte esterase is also positive. INR is 0.99, PTT is 29.2. IMAGING: Chest x-ray reportedly showed no acute infiltrates. IMPRESSION: A 76-year-old male with: 1. Hematuria secondary to . Also there is evidence of renal calculi on CAT scan. 2. Sepsis. 3. Urinary tract infection. 4. Chronic trach-dependent respiratory failure. 5. History of cerebrovascular accident. 6. Hypertension. 7. Diabetes mellitus type 2. 8. Anemia. 9. Neurogenic bladder. 10. Chronic obstructive pulmonary disease. 11. Dysphagia. RECOMMENDATIONS: 1. Check cultures. 2. Complete antibiotics. 3. Urology evaluation pending. 4. IV hydration. 5. Nephrology evaluation. 6. Followup labs. Dictated By: MARICARMEN MEZA MD, MA/GENOVEVA Conf#: [id number] DID#: [id number]
--- NOTE | 2016-08-01 16:18 | CONS ---
DATE OF ADMISSION: 07/31/2016 DATE OF CONSULTATION: 08/01/2016 REQUESTING PHYSICIAN: Dr. Kumar Dear Dr. Kumar: Thank you for asking me to see this patient in urological consultation. HISTORY OF PRESENT ILLNESS: This is a 76-year-old male who is a resident of a [facility] and has multiple medical problems and he was sent to the hospital yesterday because of gross hem aturia. Apparently, the patient had a Ferreira catheter and the catheter was changed in the emergency room and the urine remains bloody. PAST MEDICAL HISTORY: The patient himself is not capable of giving any history. He does have a his tory of chronic respiratory failure and he has a tracheostomy. He also does have a PEG tube, but it is not being used now. He has a supraventricular tachycardia and anemia. He does have a history o f neurogenic bladder and urinary retention, chronic indwelling Ferreira catheter and he also has arteri osclerotic heart disease, hypertension and type 2 diabetes. He also has a cerebrovascular accident, dyslipidemia, gastroesophageal reflux disease and GI bleed. PAST SURGICAL HISTORY: Includes history of tracheostomy and PEG tube placement. Previously also he has had a cystoscopy and a colonoscopy. He did also have in the past spinal surgery and hardware p lacement. SOCIAL HISTORY: Does not drink and there is no history. He does not smoke, and there is no history of drug abuse. ALLERGIES: HE HAS NO KNOWN DRUG ALLERGY. 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 MEDICATIONS: Presently His medications include: 1. Vancomycin. 2. Atorvastatin. 3. Doxazosin. 4. Digoxin. 5. Cefepime. 6. Cardizem. 7. Theragran. 8. Pepcid. 9. Ferrous sulfate. 10. Lactobacillus. 11. Tricor. 12. Insulin. 13. Multiple p.r.n. medications. PHYSICAL EXAMINATION: GENERAL: Reveals an elderly male who is in a tracheostomy. He weighs 69 kg and he is 66 inches bib l. ABDOMEN: Showed that the bladder is distended all the way up to the umbilicus, even though he does have a catheter that is draining gross bloody urine. GENITALIA: External genitalia otherwise are normal. EXTREMITIES: He does have contractures of his lower extremities. LABORATORY DATA: His CBC yesterday shows a white count of 31,100, today is 25,600, hemoglobin was 9 .0. This morning was 7.4. BUN is 64, creatinine 2.07, sodium 132, potassium 5.4, chloride 93, CO2 of 23. Blood cultures showing gram-positive cocci in clusters. IMPRESSION: 1. Gross hematuria. 2. Urinary clot retention. PLAN: To remove the Ferreira catheter and insert a new Ferreira catheter and irrigate the bladder until w e get all the clots out and then put him on continuous bladder irrigation. I did come in and see maddie nguyen at around 7:40 in the morning and I worked on him until about 9:10 in the morning. During that pe riod of time in addition to the consultation, I did remove the old Ferreira catheter, inserted a new 24 -[place] 3-way 30 mL balloon 3-way Ferreira catheter and I spent a good amount of time over 1 hour hand irrigating the blood clots out of the bladder until I got all the blood clots out and then I did sta rt him on continuous bladder irrigation. Since his hemoglobin has been low, I also asked the nurse to see if they could get order for blood transfusion on him and in fact he is getting blood transfu sions right now. I will follow his urological problem with you. I do thank you for allowing me to help in his care. Dictated By: TANA DUBOIS/GENOVEVA Conf#: [id number] DID#: [id number]
--- NOTE | 2016-08-01 16:52 | PN ---
DATE: 08/01/2016 HOSPITALIST PROGRESS NOTE TIME OF EVALUATION: 12:30 p.m. SUBJECTIVE DATA: The patient remains afebrile. The patient remains on continuous bladder irrigation. OBJECTIVE DATA: VITAL SIGNS: Temperature 98.5, pulse rate 105, respiratory rate 23, blood pressure 106/50, oxygen saturation 97% on oxygen via T-tube to a tracheostomy. GENERAL: This is an elderly, debilitated, male lying in bed in no apparent distress. HEENT: Head normocephalic and atraumatic. Eyes: Anicteric sclerae. Conjunctivae clear. ENT: Nasal septum is midline. Oral mucosa is dry. NECK: Short. Tracheostomy midline. RESPIRATORY: Bilaterally diminished breath sounds. No use of accessory muscles of respiration. Tracheostomy to T-tube. CARDIAC: S1, S2 heard. Tachycardic. ABDOMEN: Soft, nontender. Left upper quadrant G-tube in place. GENITOURINARY: Ferreira catheter with continuous bladder irrigation. EXTREMITIES: No cyanosis, no clubbing. NEUROLOGIC: Awake and alert. Follows commands. Contracture of the RUE. B/L LE flaccid. LABORATORY AND DIAGNOSTIC DATA: WBC 25.6, hemoglobin 7.4, hematocrit 22.1, platelet count 341. Sodium 132, potassium 5.4, chloride 98, carbon dioxide 23, anion gap 21, BUN 64, creatinine 2.07, glucose 251, calcium 10.4. ASSESSMENT AND PLAN: 1. Hematuria. Hold anticoagulation. Continue management as per urology. On continuous bladder irrigation. 2. Sepsis with underlying gram-positive bacteremia. No evidence of any septic shock. Continue antibiotics. Appreciate ID recommendations. 3. Acute kidney injury. Etiology unclear. The patient to be evaluated by nephrology. Nephrology consult was called. 4. Hyperkalemia, most probably secondary to worsening renal function. Will monitor the patient's telemetry rhythm. Will have nephrology evaluate the patient. 5. Essential hypertension. Continue antihypertensives. 6. Type 2 diabetes mellitus. Hemoglobin A1c 7.2. Continue sliding scale insulin. Will also start the patient on basal insulin since the patient was having elevated blood sugars. 7. Anemia of chronic disease. We will monitor the H and H closely. Will transfuse as needed. 8. Dyslipidemia. Continue statins. 9. Chronic obstructive pulmonary disease. Continue inhaled bronchodilators. 10. Hyponatremia. Etiology could be most probably from underlying acute kidney injury with fluid retention. Nephrology to evaluate the patient. 11. Dysphagia. Status post PEG tube placement. Continue aspiration precautions. 12. Chronic respiratory failure. Status post tracheostomy. Continue inhaled bronchodilators. Continue supplemental oxygen via T-tube. 13. Fluid, electrolytes, and nutrition. Continue IV fluids. Will start the patient on G-tube feedings. 14. Deep venous thrombosis prophylaxis. Bilateral SCDs. 15. Gastrointestinal prophylaxis. Histamine 2 receptor blockers. Plan. Continue antibiotics. Continue bladder irrigation as per urology recommendations. The patient is unstable to be discharged. Case discussed with Dr. Cervantes. DAX CERVANTES MD, AM/GENOVEVA Conf#: [id number] DID#: [id number] MTDD
--- NOTE | 2016-08-01 18:33 | CONS ---
DATE OF ADMISSION: 07/31/2016 DATE OF CONSULTATION: 08/01/2016 PHYSICIAN REQUESTING CONSULT: Dr. Pemberton REASON FOR CONSULTATION: Acute kidney injury, hyperkalemia. HISTORY OF PRESENT ILLNESS: This is a 76-year-old male with a past medical history of chronic respi ratory failure, status post tracheostomy, history of SVT, anemia, history of neurogenic bladder with indwelling Ferreira catheter, history of hypertension, BPH, diabetes, history of CVA, dyslipidemia, [place] who was brought in via ambulance from [facility] facility due to evaluation of gross hematur ia and fever. The patient, upon arrival in the emergency room, was noted to be afebrile with temper ature of 100.4. He was tachycardic. The patient, in the emergency room, had a chest x-ray obtained , which showed no findings of acute pulmonary disease. Laboratory data showed a white count of 31,0 00. Urinalysis was positive nitrites. The patient had blood cultures drawn in the emergency room, which showed gram-positive cocci. The patient was started on broad-spectrum antibiotics, IV fluids, and admitted to telemetry for further evaluation. While on telemetry, the patient was placed on co ntinuous bladder irrigation with improvement of his gross hematuria. No other acute events noted. No hemoptysis, hematemesis. In terms of the patient's renal history, the patient comes from a [facility] facility with prev iously unknown baseline serum creatinine. The patient's creatinine upon admission has been around 2 mg/dL. The patient had had gross hematuria that has been resolving. There have been no rashes, no hemoptysis. PAST MEDICAL HISTORY: As stated above. History of diabetes, CVA, GERD, chronic respiratory failure , history of neurogenic bladder with indwelling Ferreira catheter, history of hypertension. PAST SURGICAL HISTORY: Status post trach, status post PEG, status post colonoscopy. FAMILY HISTORY: No family history of kidney disease or heart disease. SOCIAL HISTORY: Lives at a skilled nurse facility. MEDICATIONS: The patient's medications have been reviewed. REVIEW OF SYSTEMS: Unable to do adequate review of systems, as the patient is obtunded. Pertinent positives obtained by reviewing medical records and speaking to hospital staff, stated in HPI, other mathew negative. PHYSICAL EXAMINATION: VITAL SIGNS: Blood pressure is 106/50, respiration 18, pulse 70, temperature 98.5. HEENT: Head is normocephalic. Pupils are reactive to light. NECK: Supple. HEART: Tachycardic. LUNGS: Show diminished breath sounds at base. ABDOMEN: Soft, nontender to palpation without rebound or guarding. EXTREMITIES: Negative for clubbing, cyanosis, edema. DERMATOLOGIC: No rashes. MUSCULOSKELETAL: No joint effusions. NEUROLOGIC: Limited exam due to lack of patient cooperation. LABORATORY DATA: Shows sodium 132, potassium 5.4, chloride 93, BUN 64, creatinine 2.7, glucose 251, calcium 10.4. Lactic acid is 3.0. Hemoglobin A1c 7.2. The patient's white count 25,000; hemoglob in 7.4, hematocrit 22.1, platelet count 341. IMAGING STUDIES: As stated in HPI. ASSESSMENT AND PLAN: This is a 76-year-old male who presents with: 1. Nonoliguric acute kidney injury with unknown baseline creatinine. Etiology of acute kidney inju ry is likely multifactorial secondary to septic acute kidney injury, volume depletion, possible unde rlying tubular injury. The patient's initial urinalysis shows gross hematuria, pyuria, and +4 prote in urine. These findings can be due to underlying gross hematuria and urinary tract infection. The possibility of interstitial nephritis and/or glomerulonephritis is less likely at this time, but wi ll be a consideration. Plan at this point is to check a renal ultrasound to rule out obstruction. Will repeat a urinalysis. We will check urine electrolytes. We will calculate FENa (fractional exc retion of urea). We will quantify the patient's proteinuria by checking a protein/creatinine ratio and an albumin/creatinine ratio. Would recommend to continue current treatment plan with aggressive IV hydration. Continue IV antibiotics. Will monitor renal function closely and if patient does sh ow significant levels of proteinuria, would also consider checking serological data. 2. Hyperkalemia secondary to acute kidney injury. The patient's potassium levels have been improvi ng. Continue IV hydration and monitor. 3. Hyponatremia secondary to acute kidney injury causing decreased free water urinary excretion. W ill continue to monitor with IV hydration. 4. Metabolic acidosis. Etiology secondary to acute kidney injury and lactic acidosis. We will con tinue to treat underlying sepsis, as stated above. Monitor lactic acid levels closely. 5. Gross hematuria. Underlying etiology is unclear. Possibly related to anticoagulation in the se tting of Ferreira catheter. Plan is to get a renal ultrasound. Consider urologic evaluation. Conside r CT scan of the abdomen and pelvis. 6. Sepsis. The patient has positive blood cultures, gram-positive cocci. Underlying source unclea r, possible urinary tract infection. Continue current medical management. Continue antibiotics. C ontinue IV fluids. Follow up with infectious disease. 7. Anemia. Etiology is like from gross hematuria. The patient is being transfused 2 units PRBC. Monitor H and H levels. 8. Chronic respiratory failure, status post tracheostomy. Currently stable on trach mask. We will continue. Follow up with pulmonary. 9. Diabetes. Will continue Accu-Cheks and sliding scale. 10. History of hypertension. Blood pressure currently controlled. Continue to monitor. 11. Acute encephalopathy on chronic dementia. Etiology is likely toxic metabolic. We will continu e current treatment plan. 12. Previous history of cerebrovascular accident. Continue medical management. 13. Neurogenic bladder with indwelling Ferreira catheter. Continue to monitor. Thank you, Dr. Pemberton, for this interesting consult. It will be a pleasure to follow patient with you throughout the hospital course. Dictated By: JOSÉ BLISS DO NR/NTS Conf#: [id number] DID#: [id number] CC: EV PEMBERTON MD;*EndCC*
[2016-08-01] MEDS ORDERED: INSULIN GLARGINE [LANtus] 3 ML PEN SC SCH (21:00)
[2016-08-01] MEDS ORDERED: DOXAZOSIN 4 MG TAB GTB SCH (21:00)
[2016-08-01] MEDS: ATORVASTATIN 20 MG TAB GTB SCH (22:09)
--- NOTE | 2016-08-01 22:21 | RADRPT ---
PROCEDURE: Renal US. CLINICAL INDICATION: Acute kidney injury. Hematuria. TECHNIQUE: Multiple sonographic images of the kidneys and urinary bladder were obtained. The imag es were reviewed on a PACS workstation. COMPARISON: No prior studies are available for comparison. FINDINGS: The right kidney measures 12.1 x 7.1 x 4.4 cm. The left kidney measures 10.0 x 5.6 x 4.3 cm. There is no solid renal mass. There are multiple benign right renal cysts with the largest measurin g 4.2 cm. There is a benign left renal cyst measuring 1.6 cm. There is mild bilateral hydronephrosis. There is no renal calculus. Renal parenchymal thickness and echogenicity is normal bilaterally. The perirenal regions are normal with no fluid collection or mass. There is a Ferreira catheter in the urinary bladder. There is moderate debris in the bladder consistent with blood clot. However, the bladder is distended with a volume of approximately 700 ml. IMPRESSION: 1. Benign bilateral renal cysts. 2. Mild bilateral hydronephrosis. 3. Ferreira catheter in the bladder. However, the bladder is distended indicating the Ferreira catheter may be occluded. Call report: A call report of the findings was made to the patient's nurse Rashad Jorge on 017 at 2220 hours. The the patient is on continuous bladder irritation which may account for the bl adder distension. RPTAT: QQ .Alhaji Schultz MD, Date Time Electronically viewed and signed by .Alhaji Schultz MD, MD on 08/01/2016 22:21 .R/
[2016-08-02] VITALS (12 sets, daily range): BP systolic 98–139; BP diastolic 50–73; PULSE 85–114; RESP 18–22
[2016-08-02] MEDS ORDERED: VANCOMYCIN 1.5 GM in SOD CHLORIDE 0.9% 250 ML IVPB SCH ×2
[2016-08-02] MEDS: SOD CHLORIDE 0.9% 1,000 ML IV SCH ×2 (00:57→14:31)
[2016-08-02] MEDS: INSULIN ASPART [NOVOLOG] 3 ML PEN SC SCH ×6 (00:59→22:47)
[2016-08-02] MEDS: ALBUTEROL 0.083% (NEB) 2.5 MG/3 ML AMP NEB SCH ×4 (01:49→20:54)
[2016-08-02 07:19] LABS: HEMATOCRIT 25.9 % (42.0-52.0); HEMOGLOBIN 8.7 g/dl (14.0-18.0); MEAN CORPUSCULAR HEMOGLOBIN 26.2 pg (29.0-33.0); MEAN CORPUSCULAR HGB CONC 33.7 g/dl (32.0-37.0); MEAN CORPUSCULAR VOLUME 77.9 fl (82.0-101.0); MEAN PLATELET VOLUME 8.7 fl (7.4-10.4); PLATELET COUNT 281 10^3/UL (140-440); RED BLOOD COUNT 3.32 10^6/ul (4.70-6.10); RED CELL DISTRIBUTION WIDTH 17.6 % (11.5-14.5); UNCORRECTED WBC 23.1 10^3/ul (4.8-10.8); WHITE BLOOD COUNT 23.1 10^3/ul (4.8-10.8)
[2016-08-02 07:20] LABS: CONDITION 1; LH ANALYZER COMMENTS 1; SUSPECT 1
[2016-08-02 07:28] LABS: POTASSIUM 5.1 mmol/L (3.5-5.1)
[2016-08-02 07:30] LABS: CREATININE 2.58 mg/dl (0.61-1.24)
[2016-08-02 07:31] LABS: CALCIUM 9.8 mg/dl (8.4-10.2)
[2016-08-02 07:43] LABS: MAGNESIUM 2.5 mg/dl (1.7-2.5); PHOSPHORUS 4.4 mg/dl (2.5-4.9)
[2016-08-02] MEDS: ASCORBIC ACID 500 MG TAB GTB SCH (08:27)
[2016-08-02] MEDS: FENOFIBRATE 145 MG TAB GTB SCH (08:27)
[2016-08-02] MEDS: FERROUS SULFATE 60 MG/ML 5ML CUP GTB SCH (08:27)
[2016-08-02] MEDS: LACTOBACILLUS CHEW TAB GTB SCH ×2 (08:27→22:46)
[2016-08-02] MEDS: DILTIAZEM (CD) 120 MG CAP PO SCH (08:27)
[2016-08-02] MEDS: FAMOTIDINE 20 MG INJ IV SCH (08:27)
[2016-08-02] MEDS: MULTIVITAMINS THERAPEUTIC TAB GTB SCH (08:28)
[2016-08-02] MEDS: CHLORHEXIDINE GLUCONATE 15 ML UD CUP MM SCH ×2 (08:28→22:46)
[2016-08-02 08:37] LABS: LH ANALYZER COMMENTS 1
[2016-08-02 09:55] LABS: ANISOCYTOSIS 1+; EOSINOPHILS # 0.2 10^3/ul (0.0-0.5); HYPOCHROMASIA 1+; MICROCYTOSIS 1+; MONOCYTE # 0.9 10^3/ul (0.3-0.9)
--- NOTE | 2016-08-02 10:27 | PN ---
DATE: 08/02/2016 SUBJECTIVE: Gross hematuria. Patient has continuous bladder irrigation. I did irrigate his bladder for over 1 hour yesterday and got all the clots out of the bladder. The patient appears to be comfortable and he does have tracheo stomy and G-tube and not communicative. PHYSICAL EXAMINATION: VITAL SIGNS: Temperature is 98.4, pulse is 109, respirations 20, blood pressure 98/56. ABDOMEN: Soft. GENITOURINARY: The bladder is not distended. External genitalia are normal and the Ferreira catheter is draining well and the return from the irrigation is water clear. LABORATORY DATA: CBC shows a white count of 23.1, hemoglobin 8.7, hematocrit 25.9. BUN is , c reatinine 2.58. Creatinine is going up compared to at the time of admission. The urine culture is t sebaso young to evaluate, but blood cultures did show gram-positive cocci in clusters. The patient is b eing followed by the infectious disease and he is on vancomycin and cefepime. He is also on doxazos in and that probably was given because of his urination issues maybe, and since his blood pressure i s low, I will discontinue that. IMPRESSION: Hematuria, it has reasonably cleared, this most likely related to his infection. PLAN: To continue the bladder irrigation and slow down the rate of the irrigation and stop the Card ura and once the urine remains clear, then we will stop the irrigation completely. Dictated By: TANA DUBOIS/GENOVEVA Conf#: [id number] DID#: [id number]
--- NOTE | 2016-08-02 11:08 | PN ---
DATE: 08/02/2016 SUBJECTIVE: The patient is stable, remains on continuous bladder irrigation, no acute events noted overnight. No hemoptysis, hematemesis or hematochezia. OBJECTIVE: VITAL SIGNS: Blood pressure is 134/73, respirations 22, pulse 102, temperature 99.0. I'S AND O'S: The patient had 1100 in with 400 out. HEENT: Head is normocephalic. NECK: Supple. HEART: Regular rate. LUNGS: Show diminished breath sounds at the base. ABDOMEN: Soft, nontender to palpation. No rebound or guarding. EXTREMITIES: Negative for clubbing, cyanosis. No edema. DERMATOLOGIC: No rashes. MUSCULOSKELETAL: No joint effusions. NEUROLOGIC: No change in exam. MEDICATIONS: The patient's medications have been reviewed. LABORATORY DATA: Showed sodium 134, potassium 5.1, chloride 98, bicarbonate 20, BUN 80, creatinine 2.58. White count 23.1, hemoglobin 9.7, hematocrit 25.9, platelet count is 281. Repeat urinalysis is pending. Renal ultrasound shows mild bilateral hydronephrosis with Ferreira catheter in bladder. B lood cultures have been reviewed. ASSESSMENT AND PLAN: 1. Nonoliguric acute kidney injury on top of chronic kidney disease stage IIIB/IV with a baseline c reatinine around 1.8 mg/dL. Etiology of current acute kidney injury is secondary to septic acute ki dney injury with possible tubular injury. The patient's renal ultrasound shows mild bilateral hydro nephrosis which may also be a contributing factor to THEO. The patient remains in injury phase of ac native tubular necrosis as renal function continues to decline. The possibility of acute glomeruloneph ritis and vasculitis is less likely, but a consideration given the patient's gross hematuria. Plan at this point is to repeat a UA with microanalysis. We will quantify the patient's proteinuria. Th e patient's repeat urinalysis continues to show findings of an active sediment we will do a full ser ological workup. Otherwise, continue current treatment plan with IV hydration. 2. Hyperkalemia secondary to acute kidney injury, improved. Continue to monitor. 3. Hypernatremia secondary to acute kidney injury. Continue to observe. Continue to limit free gautam er intake. 4. Metabolic acidosis secondary to acute kidney injury and lactic acidosis. Plan is to treat under lying sepsis. Continue to monitor. No need for bicarbonate therapy at this time. 5. Gross hematuria, etiology is unclear. Patient is clinically improving. Continue continuous yamile dder irrigation 6. Mild bilateral hydronephrosis. Urology is currently following the patient. We will continue to monitor closely. 7. Sepsis. Patient has positive gram-positive cocci on blood cultures, underlying source unclear. Continue current medical management, antibiotics and IV fluids. 8. Anemia. Continue to monitor H and H levels. 9. Chronic respiratory failure, status post tracheostomy, patient is stable on trach mask. Continu e to monitor. 10. Diabetes, continue Accu-Cheks and sliding scale. 11. Hypertension. Continue current blood pressure regimen. 12. Acute encephalopathy and chronic dementia. Etiology is likely metabolic. Continue current breonna tment plan. 13. Previous history of cerebrovascular accident. Continue medical management. 14. Neurogenic bladder with indwelling Ferreira catheter. Dictated By: JOSÉ BIGGS/NTS Conf#: [id number] DID#: [id number]
--- NOTE | 2016-08-02 11:46 | PN ---
Date/Time of Note Date/Time of Note DATE: 08/02/16 TIME: 11:45 Assessment/Plan VTE Prophylaxis VTE Prophylaxis Intervention: SCD's Lines/Catheters IV [facility]ter [facility]from [facility]): Saline Lock Urinary Cath still in place: Yes Reason Cath still needed: other (indicate) Assessment/Plan Chief Complaint/Hosp Course 1. Hematuria. Hold anticoagulation. Continue management as per urology. On continuous bladder irrigation. 2. Sepsis with underlying gram-positive bacteremia. No evidence of any septic shock. Continue antibiotics. Appreciate ID recommendations. 3. Acute kidney injury. Etiology unclear. Patient being followed by nephrology. 4. Hyperkalemia, most probably secondary to worsening renal function. Resolved. Will monitor the patient's telemetry rhythm. 5. Essential hypertension. Continue antihypertensives. 6. Type 2 diabetes mellitus. Hemoglobin A1c 7.2. Continue sliding scale insulin. Will adjust insulin to obtain optimal blood sugar control. 7. Anemia of chronic disease. Will monitor the H and H closely. Will transfuse as needed. 8. Dyslipidemia. Continue statins. 9. Chronic obstructive pulmonary disease. Continue inhaled bronchodilators. 10. Hyponatremia. Improving. 11. Dysphagia. Status post PEG tube placement. Continue aspiration precautions. 12. CVA with right hemiplegia. Continue supportive care. 13. Chronic respiratory failure. The patient has a tracheostomy in place. Continue supplemental oxygen. 12. Fluid, electrolytes, and nutrition. Continue IV fluids. Continue G-tube feedings. 13. Deep venous thrombosis prophylaxis. Bilateral SCDs. 14. Gastrointestinal prophylaxis. Histamine 2 receptor blockers. Plan. Continue antibiotics. Continue bladder irrigation as per urology recommendations. The patient is unstable to be discharged. Case discussed with Dr. Cervantes. Problems: Subjective 24 Hr Interval Summary Free Text/Dictation Remains on continuous bladder irrigation. Exam/Review of Systems Vital Signs Vitals Vital Signs Date Time Temp Pulse Resp B/P Pulse Ox O2 Delivery O2 Flow Rate FiO2 08/02/16 11:01 98.3 101 20 131/62 97 08/02/16 08:06 Aerosol 5.0 28 T Tube Intake and Output 08/01/16 08/01/16 08/02/16 15:00 23:00 07:00 Intake Total 50 ml 1100 ml Output Total 400 ml Balance -350 ml 1100 ml Exam GENERAL: This is an elderly, debilitated, male lying in bed in no apparent distress. HEENT: Head normocephalic and atraumatic. Eyes: Anicteric sclerae. Conjunctivae clear. ENT: Nasal septum is midline. Oral mucosa is dry. NECK: Short. Tracheostomy midline. RESPIRATORY: Bilaterally diminished breath sounds. No use of accessory muscles of respiration. Tracheostomy to T-tube. CARDIAC: S1, S2 heard. Tachycardic. ABDOMEN: Soft, nontender. Left upper quadrant G-tube in place. GENITOURINARY: Ferreira catheter with continuous bladder irrigation. EXTREMITIES: No cyanosis, no clubbing. NEUROLOGIC: Awake and alert. Follows commands. Contracture of the RUE. B/L LE flaccid. Results Result Diagram: 08/02/16 0610 08/02/16 0618 Results 24 hrs Laboratory Tests Test 08/01/16 13:17 08/01/16 17:57 08/01/16 22:15 08/02/16 00:35 Bedside Glucose 272 H 287 H 286 H 307 H Test 08/02/16 05:22 08/02/16 05:27 08/02/16 06:10 08/02/16 06:18 Bedside Glucose 293 H 288 H Anisocytosis 1+ Band Neutrophils % 4.0 Basophils # Basophils % Blood Morphology Comment Differential Comment MANUAL DIFF Eosinophils # 0.2 Eosinophils % 1.0 Hematocrit 25.9 L Hemoglobin 8.7 L Hypochromasia 1+ Large Platelets FEW Lymphocytes # 3.0 H Lymphocytes % 13.0 L Mean Corpuscular Hemoglobin 26.2 L Mean Corpuscular Hemoglobin Concent 33.7 Mean Corpuscular Volume 77.9 L Mean Platelet Volume 8.7 Microcytosis 1+ Monocytes # 0.9 Monocytes % 4.0 Neutrophils # 18.0 H Neutrophils % 78.0 H Nucleated Red Blood Cells # Nucleated Red Blood Cells % Platelet Count 281 Red Blood Count 3.32 L Red Cell Distribution Width 17.6 H White Blood Count 23.1 H Anion Gap 21 H Blood Urea Nitrogen 80 H Calcium Level 9.8 Carbon Dioxide Level 20 L Chloride Level 98 Creatinine 2.58 H Glucose Level 267 H Potassium Level 5.1 Sodium Level 134 L Test 08/02/16 06:19 08/02/16 08:41 Magnesium Level 2.5 Phosphorus Level 4.4 Bedside Glucose 334 H Medications Medications Current Medications Sodium Chloride (NS) 1,000 ml @ 75 mls/hr [id number] IV Last administered on 1/11 /17at 00:57; Admin Dose 75 MLS/HR; Start 07/31/16 at 22:17 Lorazepam (Ativan) 0.5 mg Q6H PRN IV ANXIETY; Start 07/31/16 at 22:30 Ondansetron HCl (Zofran Inj) 4 mg Q6H PRN IV NAUSEA AND/OR VOMITING; Start 07/31 at 22:30 Nitroglycerin (Nitroglycerin (Sl Tab) 0.4 Mg) 1 tab Q5M PRN SL CHEST PAIN; Start 07/31/16 at 22:30 Acetaminophen (Tylenol Supp) 650 mg Q6H PRN [place] PAIN LEVEL 1-3 OR FEVER; Start 07/31/16 at 22:30 Morphine Sulfate (morphine) 2 mg Q4H PRN IV PAIN LEVEL 7-10; Start 07/31/16 at 22:30 Bisacodyl (Dulcolax Supp) 10 mg DAILY PRN [place] CONSTIPATION; Start 07/31/16 at 22: 30 Insulin Aspart (Novolog Insulin Pen) NOVOLOG *MILD* ALGORI... Q4 SC Last administered on 08/02/16 08:43; Admin Dose 5 UNIT; Start 08/01/16 at 01:00 Atorvastatin Calcium (Lipitor) 20 mg QHS GTB Last administered on 08/01/16 22: 09; Admin Dose 20 MG; Start 08/01/16 at 21:00 Chlorhexidine Gluconate (Peridex) 15 ml Q12 MM Last administered on 08/02/16 08:28; Admin Dose 15 ML; Start 08/01/16 at 09:00 Digoxin (Digoxin) 0.125 mg DAILY@13 GTB Last administered on 08/01/16 13:00; Admin Dose 0.125 MG; Start 08/01/16 at 13:00 Diltiazem HCl (Cardizem Cd) 120 mg DAILY PO Last administered on 08/02/16 08: 27; Admin Dose 120 MG; Start 08/01/16 at 09:00 Magnesium Hydroxide (Milk Of Mag) 30 ml DAILY PRN GTB CONSTIPATION; Start at 22:30 Multivitamins Therapeutic (Theragran) 1 tab DAILY GTB Last administered on 08/02 08:28; Admin Dose 1 TAB; Start 08/01/16 at 09:00 Famotidine (Pepcid Iv) 20 mg DAILY IV Last administered on 08/02/16 08:27; Admin Dose 20 MG; Start 08/01/16 at 09:00 Ferrous Sulfate (Feosol Liquid Cup) 300 mg DAILY GTB Last administered on 08:27; Admin Dose 300 MG; Start 08/01/16 at 09:00 Lactobacillus Acidoph/Bulgaricus (Floranex) 1 tab BID GTB Last administered on 08/02/16 08:27; Admin Dose 1 TAB; Start 08/01/16 at 09:00 Fenofibrate (Tricor) 145 mg DAILY GTB Last administered on 08/02/16 08:27; Admin Dose 145 MG; Start 08/01/16 at 09:00 Ascorbic Acid (Vitamin C) 500 mg DAILY GTB Last administered on 08/02/16 08:27 ; Admin Dose 500 MG; Start 08/01/16 at 09:00 Miscellaneous Information 1 ea NOTE XX ; Start 07/31/16 at 23:30 Glucose (Glutose) 15 gm Q15M PRN PO DECREASED GLUCOSE; Start 07/31/16 at 23:30 Glucose (Glutose) 22.5 gm Q15M PRN PO DECREASED GLUCOSE; Start 07/31/16 at 23:30 Dextrose (D50w Syringe) 25 ml Q15M PRN IV DECREASED GLUCOSE; Start 07/31/16 at 23:30 Dextrose (D50w Syringe) 50 ml Q15M PRN IV DECREASED GLUCOSE; Start 07/31/16 at 23:30 Glucagon (Glucagen) 1 mg Q15M PRN IM DECREASED GLUCOSE; Start 07/31/16 at 23:30 Glucose 15 gm 15 gm Q15M PRN BUCCAL DECREASED GLUCOSE; Start 07/31/16 at 23:30 Vancomycin HCl 1.5 gm/Sodium Chloride 250 ml @ 83.333 mls/ hr Q48H IVPB Last administered on 08/02/16 00:01; Admin Dose 83.333 MLS/HR; Start 08/02/16 at 00: 00 Cefepime HCl (Maxipime 2gm/50 ml (Pmx)) 50 ml @ 100 mls/hr Q24H IVPB Last administered on 08/01/16 11:08; Admin Dose 100 MLS/HR; Start 08/01/16 at 12:30 Insulin Glargine (Lantus) 14 unit QHS SC Last administered on 08/01/16t 22:22; Admin Dose 14 UNIT; Start 08/01/16 at 21:00 DAX DENNIS NP Aug 02, 2016 11:46
[2016-08-02] MEDS ORDERED: INSULIN GLARGINE [LANtus] 3 ML PEN SC ONE (12:00)
[2016-08-02] MEDS: DIGOXIN 0.125 MG TAB GTB SCH (12:21)
[2016-08-02] MEDS: CEFEPIME 2GM/50 ML IVPB SCH (12:22)
--- NOTE | 2016-08-02 15:30 | CONS ---
Date/Time of Note Date/Time of Note DATE: 08/02/16 TIME: 15:27 Consult Date/Type/Reason Admit Date/Time Jul 31, 2016 at 22:29 Initial Consult Date Type of Consultation: pulmonary Subjective Patient remains stable on mechanical ventilation Still with hematuria continue bladder irrigation Currently hemodynamically stable Objective Vital Signs Date Time Temp Pulse Resp B/P Pulse Ox O2 Delivery O2 Flow Rate FiO2 08/02/16 15:07 107 20 98 Aerosol 5.0 28 T Tube 08/02/16 11:01 98.3 131/62 Intake and Output 08/01/16 08/01/16 08/02/16 15:00 23:00 07:00 Intake Total 50 ml 1100 ml Output Total 400 ml Balance -350 ml 1100 ml PHYSICAL EXAMINATION: VITAL SIGNS: HEENT: Pupils are equal and reactive to light. Anicteric sclerae. NECK: Supple, no JVD noted. No cervical lymphadenopathy noted. No carotid bruits heard. Tracheostomy site clear. LUNGS: Diminished breath sounds bilaterally with few scattered rhonchi. CARDIOVASCULAR: S1, S2 normal. ABDOMEN: Soft, nontender. G-tube in place. EXTREMITIES: No clubbing or cyanosis noted. Contractures are present in the upper extremities. NEUROLOGIC: The patient is severely encephalopathic. Results/Medications Result Diagram: 08/02/16 0610 08/02/16 0618 Results 24 hrs Laboratory Tests Test 08/01/16 17:57 08/01/16 22:15 08/02/16 00:35 08/02/16 05:22 Bedside Glucose 287 H 286 H 307 H 293 H Test 08/02/16 05:27 08/02/16 06:10 08/02/16 06:18 08/02/16 06:19 Bedside Glucose 288 H Anisocytosis 1+ Band Neutrophils % 4.0 Basophils # Basophils % Blood Morphology Comment Differential Comment MANUAL DIFF Eosinophils # 0.2 Eosinophils % 1.0 Hematocrit 25.9 L Hemoglobin 8.7 L Hypochromasia 1+ Large Platelets FEW Lymphocytes # 3.0 H Lymphocytes % 13.0 L Mean Corpuscular Hemoglobin 26.2 L Mean Corpuscular Hemoglobin Concent 33.7 Mean Corpuscular Volume 77.9 L Mean Platelet Volume 8.7 Microcytosis 1+ Monocytes # 0.9 Monocytes % 4.0 Neutrophils # 18.0 H Neutrophils % 78.0 H Nucleated Red Blood Cells # Nucleated Red Blood Cells % Platelet Count 281 Red Blood Count 3.32 L Red Cell Distribution Width 17.6 H White Blood Count 23.1 H Anion Gap 21 H Blood Urea Nitrogen 80 H Calcium Level 9.8 Carbon Dioxide Level 20 L Chloride Level 98 Creatinine 2.58 H Glucose Level 267 H Potassium Level 5.1 Sodium Level 134 L Magnesium Level 2.5 Phosphorus Level 4.4 Test 08/02/16 08:41 08/02/16 12:15 Bedside Glucose 334 H 293 H Medications Current Medications Sodium Chloride (NS) 1,000 ml @ 75 mls/hr [id number] IV Last administered on 08/02 14:31; Admin Dose 75 MLS/HR; Start 07/31/16 at 22:17 Lorazepam (Ativan) 0.5 mg Q6H PRN IV ANXIETY; Start 07/31/16 at 22:30 Ondansetron HCl (Zofran Inj) 4 mg Q6H PRN IV NAUSEA AND/OR VOMITING; Start 07/31 at 22:30 Nitroglycerin (Nitroglycerin (Sl Tab) 0.4 Mg) 1 tab Q5M PRN SL CHEST PAIN; Start 07/31/16 at 22:30 Acetaminophen (Tylenol Supp) 650 mg Q6H PRN [place] PAIN LEVEL 1-3 OR FEVER; Start 07/31/16 at 22:30 Morphine Sulfate (morphine) 2 mg Q4H PRN IV PAIN LEVEL 7-10; Start 07/31/16 at 22:30 Bisacodyl (Dulcolax Supp) 10 mg DAILY PRN [place] CONSTIPATION; Start 07/31/16 at 22: 30 Insulin Aspart (Novolog Insulin Pen) NOVOLOG *MILD* ALGORI... Q4 SC Last administered on 08/02/16 12:19; Admin Dose 4 UNIT; Start 08/01/16 at 01:00 Atorvastatin Calcium (Lipitor) 20 mg QHS GTB Last administered on 08/01/16 22: 09; Admin Dose 20 MG; Start 08/01/16 at 21:00 Chlorhexidine Gluconate (Peridex) 15 ml Q12 MM Last administered on 08/02/16 08:28; Admin Dose 15 ML; Start 08/01/16 at 09:00 Digoxin (Digoxin) 0.125 mg DAILY@13 GTB Last administered on 08/02/16 12:21; Admin Dose 0.125 MG; Start 08/01/16 at 13:00 Diltiazem HCl (Cardizem Cd) 120 mg DAILY PO Last administered on 08/02/16 08: 27; Admin Dose 120 MG; Start 08/01/16 at 09:00 Magnesium Hydroxide (Milk Of Mag) 30 ml DAILY PRN GTB CONSTIPATION; Start at 22:30 Multivitamins Therapeutic (Theragran) 1 tab DAILY GTB Last administered on 08/02 08:28; Admin Dose 1 TAB; Start 08/01/16 at 09:00 Famotidine (Pepcid Iv) 20 mg DAILY IV Last administered on 08/02/16 08:27; Admin Dose 20 MG; Start 08/01/16 at 09:00 Ferrous Sulfate (Feosol Liquid Cup) 300 mg DAILY GTB Last administered on 08:27; Admin Dose 300 MG; Start 08/01/16 at 09:00 Lactobacillus Acidoph/Bulgaricus (Floranex) 1 tab BID GTB Last administered on 08/02/16 08:27; Admin Dose 1 TAB; Start 08/01/16 at 09:00 Fenofibrate (Tricor) 145 mg DAILY GTB Last administered on 08/02/16 08:27; Admin Dose 145 MG; Start 08/01/16 at 09:00 Ascorbic Acid (Vitamin C) 500 mg DAILY GTB Last administered on 08/02/16 08:27 ; Admin Dose 500 MG; Start 08/01/16 at 09:00 Miscellaneous Information 1 ea NOTE XX ; Start 07/31/16 at 23:30 Glucose (Glutose) 15 gm Q15M PRN PO DECREASED GLUCOSE; Start 07/31/16 at 23:30 Glucose (Glutose) 22.5 gm Q15M PRN PO DECREASED GLUCOSE; Start 07/31/16 at 23:30 Dextrose (D50w Syringe) 25 ml Q15M PRN IV DECREASED GLUCOSE; Start 07/31/16 at 23:30 Dextrose (D50w Syringe) 50 ml Q15M PRN IV DECREASED GLUCOSE; Start 07/31/16 at 23:30 Glucagon (Glucagen) 1 mg Q15M PRN IM DECREASED GLUCOSE; Start 07/31/16 at 23:30 Glucose 15 gm 15 gm Q15M PRN BUCCAL DECREASED GLUCOSE; Start 07/31/16 at 23:30 Vancomycin HCl 1.5 gm/Sodium Chloride 250 ml @ 83.333 mls/ hr Q48H IVPB Last administered on 08/02/16 00:01; Admin Dose 83.333 MLS/HR; Start 08/02/16 at 00: 00 Cefepime HCl (Maxipime 2gm/50 ml (Pmx)) 50 ml @ 100 mls/hr Q24H IVPB Last administered on 08/02/16 12:22; Admin Dose 100 MLS/HR; Start 08/01/16 at 12:30 Insulin Glargine (Lantus) 18 unit QHS SC ; Start 08/02/16 at 21:00 Assessment/Plan Chief Complaint/Hosp Course IMPRESSION: A 76-year-old male with: 1. Hematuria. Urinary tract infection and renal calculi 2. Sepsis. 3. Urinary tract infection. 4. Chronic trach-dependent respiratory failure. 5. History of cerebrovascular accident. 6. Hypertension. 7. Diabetes mellitus type 2. 8. Anemia. 9. Neurogenic bladder. 10. Chronic obstructive pulmonary disease. 11. Dysphagia. RECOMMENDATIONS: 1. Check cultures. 2. Complete antibiotics. 3. Urology evaluation. Bladder Irrigation 4. IV hydration. 5. DVT and GI prophylaxis Disposition Garcia evaluation Problems: MUNIR DESHPANDE MD, [facility] Aug 02, 2016 15:29
--- NOTE | 2016-08-02 17:08 | PN ---
DATE: 08/02/2016 SUBJECTIVE: No acute events overnight. The patient is lying comfortably in bed. He is awake, not communicative. He is getting continuous bladder irrigation. WBC today 23.1 with platelets 281, esteban trophils 78, bands 4, lymphs 13, monos 4, BUN 80, creatinine 2.58, glucose 334. Sodium 134. MICROBIOLOGY: Blood culture growing staph species. Urine culture growing strep and gram-negative r ods. Nares swab negative for MRSA. INDWELLINGS: Trach, PEG, Ferreira. DIAGNOSTICS: Chest x-ray on admission revealed no radiographic evidence of acute cardiopulmonary pa thology. Renal ultrasound revealed bilateral hydronephrosis and distended bladder, possible Ferreira o cclusion. ANTIMICROBIALS: 1. Vancomycin. 2. Cefepime. PHYSICAL EXAMINATION: GENERAL: Fragile, elderly man, chronically ill-appearing, who is in no distress. HEENT: Head atraumatic, normocephalic. Sclerae anicteric. Buccal mucosa dry. NECK: Supple. Tracheostomy present. CHEST: Rise symmetrical. Breath sounds diminished to bases. HEART: S1, S2. ABDOMEN: Soft, bowel tones present. EXTREMITIES: Without cyanosis. ASSESSMENT: 1. Severe sepsis with bacteremia, likely secondary to #2. 2. Polymicrobial urinary tract infection with hematuria, currently getting continuous bladder irr igation and followed by urology. 3. Chronic respiratory failure. 4. Acute on chronic kidney disease. 5. Electrolyte imbalance. 6. Diabetes. 7. History of cerebrovascular accident. PLAN: The patient remains stable. White blood cell count tracing down. He is covered with broad s pectrum antibiotics, awaiting for final cultures. Dictated By: ADITYA CALLAHAN CLAY WASHER for VEGA SCHULER/GENOVEVA Conf#: [id number] DID#: [id number]
[2016-08-02] MEDS ORDERED: INSULIN GLARGINE [LANtus] 3 ML PEN SC SCH (21:00)
[2016-08-02] MEDS: ATORVASTATIN 20 MG TAB GTB SCH (22:46)
[2016-08-03] VITALS (10 sets, daily range): BP systolic 101–142; BP diastolic 49–82; PULSE 84–99; RESP 16–20
[2016-08-03] MEDS: ALBUTEROL 0.083% (NEB) 2.5 MG/3 ML AMP NEB SCH ×3 (01:23→13:54)
[2016-08-03] MEDS: INSULIN ASPART [NOVOLOG] 3 ML PEN SC SCH ×5 (02:02→16:41)
[2016-08-03] MEDS: SOD CHLORIDE 0.9% 1,000 ML IV SCH ×2 (03:37→10:08)
[2016-08-03 06:55] LABS: BASOPHILS % 0.2 % (0.0-2.0); EOSINOPHILS # 0.2 10^3/ul (0.0-0.5); EOSINOPHILS % 1.7 % (0.0-7.0); HEMATOCRIT 22.7 % (42.0-52.0); HEMOGLOBIN 7.6 g/dl (14.0-18.0); LYMPHOCYTES # 1.3 10^3/ul (0.8-2.9); LYMPHOCYTES % 9.1 % (15.0-51.0); MEAN CORPUSCULAR HEMOGLOBIN 26.7 pg (29.0-33.0); MEAN CORPUSCULAR HGB CONC 33.7 g/dl (32.0-37.0); MEAN CORPUSCULAR VOLUME 79.1 fl (82.0-101.0); MEAN PLATELET VOLUME 8.5 fl (7.4-10.4); MONOCYTE # 0.9 10^3/ul (0.3-0.9); MONOCYTES % 6.4 % (0.0-11.0); NEUTROPHIL # 12.2 10^3/ul (1.6-7.5); NEUTROPHILS % 82.6 % (39.0-77.0); PLATELET COUNT 268 10^3/UL (140-440); RED BLOOD COUNT 2.87 10^6/ul (4.70-6.10); RED CELL DISTRIBUTION WIDTH 17.7 % (11.5-14.5); UNCORRECTED WBC 14.7 10^3/ul (4.8-10.8); WHITE BLOOD COUNT 14.7 10^3/ul (4.8-10.8)
[2016-08-03 07:03] LABS: CONDITION 1; LH ANALYZER COMMENTS 1; POTASSIUM 4.7 mmol/L (3.5-5.1)
[2016-08-03 07:05] LABS: MAGNESIUM 2.4 mg/dl (1.7-2.5); PHOSPHORUS 4.2 mg/dl (2.5-4.9)
[2016-08-03 07:05] LABS: CREATININE 2.28 mg/dl (0.61-1.24)
[2016-08-03 07:06] LABS: CALCIUM 9.3 mg/dl (8.4-10.2)
[2016-08-03] MEDS: ASCORBIC ACID 500 MG TAB GTB SCH (08:59)
[2016-08-03] MEDS: DILTIAZEM (CD) 120 MG CAP PO SCH (08:59)
[2016-08-03] MEDS: FENOFIBRATE 145 MG TAB GTB SCH (08:59)
[2016-08-03] MEDS: LACTOBACILLUS CHEW TAB GTB SCH (08:59)
[2016-08-03] MEDS: FERROUS SULFATE 60 MG/ML 5ML CUP GTB SCH (08:59)
[2016-08-03] MEDS: MULTIVITAMINS THERAPEUTIC TAB GTB SCH (08:59)
[2016-08-03] MEDS ORDERED: FAMOTIDINE 20 MG TAB GTB SCH (09:00)
[2016-08-03] MEDS: CHLORHEXIDINE GLUCONATE 15 ML UD CUP MM SCH (09:01)
[2016-08-03 10:09] LABS: ADD UMIC YES; URINE BILIRUBIN (Dip) NEGATIVE (NEGATIVE); URINE BLOOD (Dip) 3+ (NEGATIVE); URINE COLOR LT. YELLOW (YELLOW); URINE GLUCOSE (Dip) NEGATIVE (NEGATIVE); URINE KETONES (Dip) NEGATIVE (NEGATIVE); URINE LEUKOCYTE ESTERASE (Dip) 1+ (NEGATIVE); URINE NITRITE (Dip) NEGATIVE (NEGATIVE); URINE TOTAL PROTEIN (Dip) NEGATIVE (NEGATIVE); URINE UROBILINOGEN (Dip) 0.2 E.U./dL (0.1-1.0)
--- NOTE | 2016-08-03 11:39 | PN ---
DATE: 08/03/2016 SUBJECTIVE: The patient remains stable on continuous bladder irrigation. No other acute events not ed. No hemoptysis, hemetemesis, hematochezia. OBJECTIVE: VITAL SIGNS: Blood pressure 112/54, respirations 20, pulse 74, temperature 98.5. INTAKE AND OUTPUT: The patient has 1500 in and output unclear as patient is on CBI. HEENT: Head is normocephalic. NECK: Shows trach. HEART: Regular rate. LUNGS: Show diminished breath sounds at base. ABDOMEN: Soft, nontender to palpation. No rebound or guarding. EXTREMITIES: Negative for clubbing, cyanosis, no edema. DERMATOLOGIC: No rashes. MUSCULOSKELETAL: No joint effusions. NEUROLOGIC: No change in exam. MEDICATIONS: The patient's medications have been reviewed. LABORATORY DATA: Shows white count 14.7, hemoglobin 7.6, hematocrit 32.7, platelet count is 268. S odium 141, potassium 4.7, chloride 103, BUN 78, creatinine 2.28. ASSESSMENT AND PLAN: 1. Nonoliguric acute kidney injury on top of chronic kidney disease stage IIIB/IV with a baseline c reatinine of 1.8 mg/dL. Etiology of acute kidney injury is secondary to sepsis with possible tubula r injury. The patient also noted to have mild bilateral hydronephrosis which may have been contribu ting factor to THEO. The patient's renal function has stabilized in the last 24 hours. At this point , would continue current treatment plan. Will decrease rate of IV fluids to 50 mL an hour and possi mery discontinue in the next 24 hours. Otherwise, continue supportive care, renally dose all meds, a void nephrotoxins. Please note, repeat urinalysis is still pending. 2. Hyperkalemia secondary to acute kidney injury, resolved. 3. Hypernatremia, resolved. 4. Metabolic acidosis secondary to acute kidney injury, improving. Continue to monitor. 5. Gross hematuria. Etiology is unclear. The patient is on CBI improving. Continue to monitor. 6. Mild bilateral hydronephrosis. The patient has been seen by urology. Continue to observe. 7. Sepsis. Likely secondary to urinary tract infection. Continue current antibiotic regimen. 8. Anemia. Continue to monitor hemoglobin and hematocrit levels. 9. Chronic respiratory failure, status post tracheostomy. The patient is currently stable on trach mask. Continue to observe. 10. Diabetes. Continue Accu-Cheks and sliding scale. 11. Hypertension. Continue current blood pressure regimen. 12. Acute encephalopathy and chronic dementia. Etiology is likely toxic metabolic. Continue to mo nitor. 13. History of cerebrovascular accident. Continue medical management. 14. Neurogenic bladder with indwelling Ferreira catheter. Continue to observe. Dictated By: JOSÉ BIGGS/GENOVEVA Conf#: [id number] DID#: [id number]
--- NOTE | 2016-08-03 11:45 | CONS ---
Date/Time of Note Date/Time of Note DATE: 08/03/16 TIME: 11:44 Consult Date/Type/Reason Admit Date/Time Jul 31, 2016 at 22:29 Type of Consultation: pulmonary Subjective Comfortable. No new events. Objective Vital Signs Date Time Temp Pulse Resp B/P Pulse Ox O2 Delivery O2 Flow Rate FiO2 08/03/16 08:56 5.0 28 08/03/16 08:56 86 22 94 Aerosol 08/03/16 08:28 98.5 112/54 Intake and Output 08/02/16 08/02/16 08/03/16 15:00 23:00 07:00 Intake Total 750 ml 800 ml Output Total 350 ml Balance 750 ml 450 ml PHYSICAL EXAMINATION: VITAL SIGNS: HEENT: Pupils are equal and reactive to light. Anicteric sclerae. NECK: Supple, no JVD noted. No cervical lymphadenopathy noted. No carotid bruits heard. Tracheostomy site clear. LUNGS: Diminished breath sounds bilaterally with few scattered rhonchi. CARDIOVASCULAR: S1, S2 normal. ABDOMEN: Soft, nontender. G-tube in place. EXTREMITIES: No clubbing or cyanosis noted. Contractures are present in the upper extremities. NEUROLOGIC: The patient is severely encephalopathic. Results/Medications Result Diagram: 08/03/16 0615 08/03/16 0615 Results 24 hrs Laboratory Tests Test 08/02/16 12:15 08/02/16 17:16 08/02/16 20:19 08/03/16 01:45 Bedside Glucose 293 H 276 H 243 H 193 Test 08/03/16 05:00 08/03/16 05:09 08/03/16 06:10 08/03/16 06:15 Urine Bilirubin NEGATIVE Urine Clarity SLIGHTLY CLOUDY Urine Color LT. YELLOW Urine Glucose NEGATIVE Urine Hemoglobin 3+ H Urine Ketones NEGATIVE Urine Leukocyte Esterase 1+ H Urine Microscopic RBC 10-25 Urine Microscopic WBC 2-5 Urine Nitrite NEGATIVE Urine Random Creatinine < 12.40 L Urine Random Sodium 147 H Urine Specific [place] 1.010 Urine Total Protein Urine Urobilinogen 0.2 E.U./dL Urine pH 6.0 Bedside Glucose 210 Magnesium Level 2.4 Phosphorus Level 4.2 Anion Gap 18 H Basophils # 0.0 Basophils % 0.2 Blood Morphology Comment Blood Urea Nitrogen 78 H Calcium Level 9.3 Carbon Dioxide Level 25 Chloride Level 103 Creatinine 2.28 H Eosinophils # 0.2 Eosinophils % 1.7 Glucose Level 192 Hematocrit 22.7 L Hemoglobin 7.6 L Lymphocytes # 1.3 Lymphocytes % 9.1 L Mean Corpuscular Hemoglobin 26.7 L Mean Corpuscular Hemoglobin Concent 33.7 Mean Corpuscular Volume 79.1 L Mean Platelet Volume 8.5 Monocytes # 0.9 Monocytes % 6.4 Neutrophils # 12.2 H Neutrophils % 82.6 H Nucleated Red Blood Cells # 0.0 Nucleated Red Blood Cells % 0.0 Platelet Count 268 Potassium Level 4.7 Red Blood Count 2.87 L Red Cell Distribution Width 17.7 H Sodium Level 141 White Blood Count 14.7 #H Test 08/03/16 08:51 Bedside Glucose 217 Medications Current Medications Sodium Chloride (NS) 1,000 ml @ 40 mls/hr Q24H IV Last administered on 10:08; Admin Dose 40 MLS/HR; Start 07/31/16 at 22:17 Lorazepam (Ativan) 0.5 mg Q6H PRN IV ANXIETY; Start 07/31/16 at 22:30 Ondansetron HCl (Zofran Inj) 4 mg Q6H PRN IV NAUSEA AND/OR VOMITING; Start 07/31 at 22:30 Nitroglycerin (Nitroglycerin (Sl Tab) 0.4 Mg) 1 tab Q5M PRN SL CHEST PAIN; Start 07/31/16 at 22:30 Acetaminophen (Tylenol Supp) 650 mg Q6H PRN SC PAIN LEVEL 1-3 OR FEVER; Start 07/31/16 at 22:30 Morphine Sulfate (morphine) 2 mg Q4H PRN IV PAIN LEVEL 7-10; Start 07/31/16 at 22:30 Bisacodyl (Dulcolax Supp) 10 mg DAILY PRN SC CONSTIPATION; Start 07/31/16 at 22: 30 Insulin Aspart (Novolog Insulin Pen) NOVOLOG *MILD* ALGORI... Q4 SC Last administered on 08/03/16 09:02; Admin Dose 2 UNIT; Start 08/01/16 at 01:00 Atorvastatin Calcium (Lipitor) 20 mg QHS GTB Last administered on 08/02/16 22: 46; Admin Dose 20 MG; Start 08/01/16 at 21:00 Chlorhexidine Gluconate (Peridex) 15 ml Q12 MM Last administered on 08/03/16 09:01; Admin Dose 15 ML; Start 08/01/16 at 09:00 Digoxin (Digoxin) 0.125 mg DAILY@13 GTB Last administered on 08/02/16 12:21; Admin Dose 0.125 MG; Start 08/01/16 at 13:00 Diltiazem HCl (Cardizem Cd) 120 mg DAILY PO Last administered on 08/03/16 08: 59; Admin Dose 120 MG; Start 08/01/16 at 09:00 Magnesium Hydroxide (Milk Of Mag) 30 ml DAILY PRN GTB CONSTIPATION; Start at 22:30 Multivitamins Therapeutic (Theragran) 1 tab DAILY GTB Last administered on 08/03 08:59; Admin Dose 1 TAB; Start 08/01/16 at 09:00 Ferrous Sulfate (Feosol Liquid Cup) 300 mg DAILY GTB Last administered on 08:59; Admin Dose 300 MG; Start 08/01/16 at 09:00 Lactobacillus Acidoph/Bulgaricus (Floranex) 1 tab BID GTB Last administered on 08/03/16 08:59; Admin Dose 1 TAB; Start 08/01/16 at 09:00 Fenofibrate (Tricor) 145 mg DAILY GTB Last administered on 08/03/16 08:59; Admin Dose 145 MG; Start 08/01/16 at 09:00 Ascorbic Acid (Vitamin C) 500 mg DAILY GTB Last administered on 08/03/16 08:59 ; Admin Dose 500 MG; Start 08/01/16 at 09:00 Miscellaneous Information 1 ea NOTE XX ; Start 07/31/16 at 23:30 Glucose (Glutose) 15 gm Q15M PRN PO DECREASED GLUCOSE; Start 07/31/16 at 23:30 Glucose (Glutose) 22.5 gm Q15M PRN PO DECREASED GLUCOSE; Start 07/31/16 at 23:30 Dextrose (D50w Syringe) 25 ml Q15M PRN IV DECREASED GLUCOSE; Start 07/31/16 at 23:30 Dextrose (D50w Syringe) 50 ml Q15M PRN IV DECREASED GLUCOSE; Start 07/31/16 at 23:30 Glucagon (Glucagen) 1 mg Q15M PRN IM DECREASED GLUCOSE; Start 07/31/16 at 23:30 Glucose 15 gm 15 gm Q15M PRN BUCCAL DECREASED GLUCOSE; Start 07/31/16 at 23:30 Vancomycin HCl 1.5 gm/Sodium Chloride 250 ml @ 83.333 mls/ hr Q48H IVPB Last administered on 08/02/16 00:01; Admin Dose 83.333 MLS/HR; Start 08/02/16 at 00: 00 Cefepime HCl (Maxipime 2gm/50 ml (Pmx)) 50 ml @ 100 mls/hr Q24H IVPB Last administered on 08/02/16 12:22; Admin Dose 100 MLS/HR; Start 08/01/16 at 12:30 Insulin Glargine (Lantus) 18 unit QHS SC Last administered on 08/02/16 22:48; Admin Dose 18 UNIT; Start 08/02/16 at 21:00 Famotidine (Pepcid) 20 mg DAILY GTB Last administered on 08/03/16 08:59; Admin Dose 20 MG; Start 08/03/16 at 09:00 Assessment/Plan Chief Complaint/Hosp Course IMPRESSION: A 76-year-old male with: 1. Hematuria. Urinary tract infection and renal calculi 2. Sepsis. 3. Urinary tract infection. 4. Chronic trach-dependent respiratory failure. 5. History of cerebrovascular accident. 6. Hypertension. 7. Diabetes mellitus type 2. 8. Anemia. 9. Neurogenic bladder. 10. Chronic obstructive pulmonary disease. 11. Dysphagia. RECOMMENDATIONS: 1. Check cultures. 2. Complete antibiotics. 3. Urology evaluation. Bladder Irrigation 4. IV hydration. 5. DVT and GI prophylaxis Radha merritt. Problems: MUNIR DESHPANDE MD, [facility] Aug 03, 2016 11:45
[2016-08-03] MEDS: CEFEPIME 2GM/50 ML IVPB SCH (12:42)
[2016-08-03] MEDS: DIGOXIN 0.125 MG TAB GTB SCH (12:42)
--- NOTE | 2016-08-03 15:04 | PDOCDIS ---
Discharge Instructions DIAGNOSIS Discharge Diagnosis: UTI, Sepsis. Hematuria. CONDITION Patient Condition: Stable HOME CARE INSTRUCTIONS: Special Diet: g-tube OTHER ORDERS: Other Orders: Transfer to [facility] with same orders. DAX DENNIS NP Aug 03, 2016 15:03
--- NOTE | 2016-08-03 15:12 | CONS ---
Date/Time of Note Date/Time of Note DATE: 08/03/16 TIME: 15:08 Consult Date/Type/Reason Admit Date/Time Jul 31, 2016 at 22:29 Initial Consult Date Type of Consultation: ID Subjective no acute changes, looks comfortable, no fevers Objective Vital Signs Date Time Temp Pulse Resp B/P Pulse Ox O2 Delivery O2 Flow Rate FiO2 08/03/16 13:54 83 20 96 Aerosol 5.0 28 08/03/16 12:00 98.9 110/59 Intake and Output 08/02/16 08/02/16 08/03/16 14:59 22:59 06:59 Intake Total 750 ml 800 ml Output Total 350 ml Balance 750 ml 450 ml Results/Medications Result Diagram: 08/03/16 0615 08/03/16 0615 Results 24 hrs Laboratory Tests Test 08/02/16 17:16 08/02/16 20:19 08/03/16 01:45 08/03/16 05:00 Bedside Glucose 276 H 243 H 193 Urine Bilirubin NEGATIVE Urine Clarity SLIGHTLY CLOUDY Urine Color LT. YELLOW Urine Glucose NEGATIVE Urine Hemoglobin 3+ H Urine Ketones NEGATIVE Urine Leukocyte Esterase 1+ H Urine Microscopic RBC 10-25 Urine Microscopic WBC 2-5 Urine Nitrite NEGATIVE Urine Random Creatinine < 12.40 L Urine Random Sodium 147 H Urine Specific [place] 1.010 Urine Total Protein Urine Urobilinogen 0.2 E.U./dL Urine pH 6.0 Test 08/03/16 05:09 08/03/16 06:10 08/03/16 06:15 08/03/16 08:51 Bedside Glucose 210 217 Magnesium Level 2.4 Phosphorus Level 4.2 Anion Gap 18 H Basophils # 0.0 Basophils % 0.2 Blood Morphology Comment Blood Urea Nitrogen 78 H Calcium Level 9.3 Carbon Dioxide Level 25 Chloride Level 103 Creatinine 2.28 H Eosinophils # 0.2 Eosinophils % 1.7 Glucose Level 192 Hematocrit 22.7 L Hemoglobin 7.6 L Lymphocytes # 1.3 Lymphocytes % 9.1 L Mean Corpuscular Hemoglobin 26.7 L Mean Corpuscular Hemoglobin Concent 33.7 Mean Corpuscular Volume 79.1 L Mean Platelet Volume 8.5 Monocytes # 0.9 Monocytes % 6.4 Neutrophils # 12.2 H Neutrophils % 82.6 H Nucleated Red Blood Cells # 0.0 Nucleated Red Blood Cells % 0.0 Platelet Count 268 Potassium Level 4.7 Red Blood Count 2.87 L Red Cell Distribution Width 17.7 H Sodium Level 141 White Blood Count 14.7 #H Test 08/03/16 12:40 Bedside Glucose 191 Medications Current Medications Sodium Chloride (NS) 1,000 ml @ 40 mls/hr Q24H IV Last administered on 10:08; Admin Dose 40 MLS/HR; Start 07/31/16 at 22:17 Lorazepam (Ativan) 0.5 mg Q6H PRN IV ANXIETY; Start 07/31/16 at 22:30 Ondansetron HCl (Zofran Inj) 4 mg Q6H PRN IV NAUSEA AND/OR VOMITING; Start 07/31 at 22:30 Nitroglycerin (Nitroglycerin (Sl Tab) 0.4 Mg) 1 tab Q5M PRN SL CHEST PAIN; Start 07/31/16 at 22:30 Acetaminophen (Tylenol Supp) 650 mg Q6H PRN [place] PAIN LEVEL 1-3 OR FEVER; Start 07/31/16 at 22:30 Morphine Sulfate (morphine) 2 mg Q4H PRN IV PAIN LEVEL 7-10; Start 07/31/16 at 22:30 Bisacodyl (Dulcolax Supp) 10 mg DAILY PRN [place] CONSTIPATION; Start 07/31/16 at 22: 30 Insulin Aspart (Novolog Insulin Pen) NOVOLOG *MILD* ALGORI... Q4 SC Last administered on 08/03/16 12:44; Admin Dose 2 UNIT; Start 08/01/16 at 01:00 Atorvastatin Calcium (Lipitor) 20 mg QHS GTB Last administered on 08/02/16 22: 46; Admin Dose 20 MG; Start 08/01/16 at 21:00 Chlorhexidine Gluconate (Peridex) 15 ml Q12 MM Last administered on 08/03/16 09:01; Admin Dose 15 ML; Start 08/01/16 at 09:00 Digoxin (Digoxin) 0.125 mg DAILY@13 GTB Last administered on 08/03/16 12:42; Admin Dose 0.125 MG; Start 08/01/16 at 13:00 Diltiazem HCl (Cardizem Cd) 120 mg DAILY PO Last administered on 08/03/16 08: 59; Admin Dose 120 MG; Start 08/01/16 at 09:00 Magnesium Hydroxide (Milk Of Mag) 30 ml DAILY PRN GTB CONSTIPATION; Start at 22:30 Multivitamins Therapeutic (Theragran) 1 tab DAILY GTB Last administered on 08/03 08:59; Admin Dose 1 TAB; Start 08/01/16 at 09:00 Ferrous Sulfate (Feosol Liquid Cup) 300 mg DAILY GTB Last administered on 08:59; Admin Dose 300 MG; Start 08/01/16 at 09:00 Lactobacillus Acidoph/Bulgaricus (Floranex) 1 tab BID GTB Last administered on 08/03/16 08:59; Admin Dose 1 TAB; Start 08/01/16 at 09:00 Fenofibrate (Tricor) 145 mg DAILY GTB Last administered on 08/03/16 08:59; Admin Dose 145 MG; Start 08/01/16 at 09:00 Ascorbic Acid (Vitamin C) 500 mg DAILY GTB Last administered on 08/03/16 08:59 ; Admin Dose 500 MG; Start 08/01/16 at 09:00 Miscellaneous Information 1 ea NOTE XX ; Start 07/31/16 at 23:30 Glucose (Glutose) 15 gm Q15M PRN PO DECREASED GLUCOSE; Start 07/31/16 at 23:30 Glucose (Glutose) 22.5 gm Q15M PRN PO DECREASED GLUCOSE; Start 07/31/16 at 23:30 Dextrose (D50w Syringe) 25 ml Q15M PRN IV DECREASED GLUCOSE; Start 07/31/16 at 23:30 Dextrose (D50w Syringe) 50 ml Q15M PRN IV DECREASED GLUCOSE; Start 07/31/16 at 23:30 Glucagon (Glucagen) 1 mg Q15M PRN IM DECREASED GLUCOSE; Start 07/31/16 at 23:30 Glucose 15 gm 15 gm Q15M PRN BUCCAL DECREASED GLUCOSE; Start 07/31/16 at 23:30 Vancomycin HCl 1.5 gm/Sodium Chloride 250 ml @ 83.333 mls/ hr Q48H IVPB Last administered on 08/02/16 00:01; Admin Dose 83.333 MLS/HR; Start 08/02/16 at 00: 00 Cefepime HCl (Maxipime 2gm/50 ml (Pmx)) 50 ml @ 100 mls/hr Q24H IVPB Last administered on 08/03/16 12:42; Admin Dose 100 MLS/HR; Start 08/01/16 at 12:30 Insulin Glargine (Lantus) 18 unit QHS SC Last administered on 08/02/16 22:48; Admin Dose 18 UNIT; Start 08/02/16 at 21:00 Famotidine (Pepcid) 20 mg DAILY GTB Last administered on 08/03/16 08:59; Admin Dose 20 MG; Start 08/03/16 at 09:00 Assessment/Plan Chief Complaint/Hosp Course MICROBIOLOGY: Blood culture growing staph species. Urine culture growing strep and PSA. Nares swab negative for MRSA. INDWELLINGS: Trach, PEG, Ferreira. DIAGNOSTICS: Chest x-ray on admission revealed no radiographic evidence of acute cardiopulmonary pathology. Renal ultrasound revealed bilateral hydronephrosis and distended bladder, possible Ferreira occlusion. ANTIMICROBIALS: 1. Vancomycin. 2. Cefepime. PHYSICAL EXAMINATION: GENERAL: Fragile, elderly man, chronically ill-appearing, who is in no distress. HEENT: Head atraumatic, normocephalic. Sclerae anicteric. Buccal mucosa dry. NECK: Supple. Tracheostomy present. CHEST: Rise symmetrical. Breath sounds diminished to bases. HEART: S1, S2. ABDOMEN: Soft, bowel tones present. EXTREMITIES: Without cyanosis. ASSESSMENT: 1. Severe sepsis with bacteremia, likely secondary to #2. 2. Polymicrobial urinary tract infection with hematuria===> on continuous bladder irrigation and followed by urology. 3. Chronic respiratory failure. 4. Acute on chronic kidney disease. 5. Electrolyte imbalance. 6. Diabetes. 7. History of cerebrovascular accident. PLAN: The patient remains stable. White blood cell count tracing down. Change Cefepime to Levaquin, continue Vanco, f/u repeat bld cx DW staff Problems: ADITYA CALLAHAN NP Aug 03, 2016 15:12
[2016-08-03] MEDS ORDERED: LEVOFLOXACIN 500 MG TAB PO ONE (15:30)
--- NOTE | 2016-08-03 16:06 | DS ---
DATE OF ADMISSION: 07/31/2016 DATE OF DISCHARGE: 08/03/2016 (Transfer to [facility]) FINAL DIAGNOSES 1. Hematuria, largely resolved. 2. Sepsis with coagulase negative staph bacteremia and urinary tract infection. 3. Acute kidney injury. 4. Hyperkalemia, resolved. 5. Essential hypertension. 6. Type 2 diabetes mellitus. 7. Anemia of chronic disease. 8. Dyslipidemia. 9. Chronic obstructive pulmonary disease. 10. Dysphagia. Status post percutaneous endoscopic gastrostomy tube placement. 11. Cerebrovascular accident with right hemiplegia. 12. Chronic respiratory failure, status post tracheostomy. 13. Chronic bedridden status. CONSULTATIONS: 1. Dr. Mustapha Chen, infectious disease. 2. Dr. Yann Miller, urology. 3. Dr. Andreia Pacheco, pulmonary. 4. Dr. Toro Maddox, pulmonary. 5. Dr. Juan Pitts, nephrology. HOSPITAL COURSE: This is a 76-year-old male with multiple comorbidities who has an indwelling Ferreira catheter secondary to neurogenic bladder. He was [facility] the emergency room [facility] because of hematuria. In the emergency room, the patient was noticed to have gross hematuria. The patient was also noticed to have severe leukocytosis with a WBC of 31.1. The patient was also had a febrile episode in the emergency room. Provided the patient's history of present illness, the comorbidities, and the diagnostic findings, a clinical decision was made to admit the patient to inpatient setting to have him further evaluated. The patient was admitted to inpatient telemetry floor. A pulmonary, infectious disease, and a urology consult was obtained on this patient. The patient was started on continuous bladder irrigation for his underlying hematuria. The patient's H and H was monitored closely and anticoagulation was held. The patient's hematuria resolved with continuous bladder irrigation. This was being managed by urology. The patient was also noticed to have sepsis with underlying gram-positive bacteremia and urinary tract infection. He was maintained on antibiotics as per infectious diseases. The patient had no evidence of any septic shock. The patient also had underlying acute kidney injury. The etiology of this remained unclear. It could be most probably from hemodynamics versus from underlying sepsis. Hence, nephrology was involved in the patient's care. The patient was also noticed to have hyperkalemia secondary to worsening renal function. The patient was monitored on telemetry floor with no underlying cardiac arrhythmias. The patient has underlying essential hypertension. He was maintained on antihypertensives for the same. He has underlying dyslipidemia. The patient was maintained on statins for the same. The patient also has underlying type 2 diabetes mellitus. The patient's hemoglobin A1c was found to be 7.2. The patient's insulin dose had to be adjusted multiple times to obtain optimal blood sugar control. The patient has underlying anemia of chronic disease. The patient's H and H was monitored closely. The patient did not require any blood transfusion during this hospitalization. The patient also has underlying COPD. The patient was treated with inhaled bronchodilators. The patient has history of chronic respiratory failure. The patient is status post tracheostomy. The patient was maintained on G tube feedings. The patient was being followed by pulmonology for the same. The patient has underlying dysphagia. He was maintained on PEG tube feedings throughout the hospital course. The patient has a CVA with right hemiplegia. The patient was provided with supportive care. The patient has multiple problems that require long-term care including the current sepsis that requires long-term antibiotics. Hence, it was decided that the patient can be transferred to [facility]. All the consultants agreed with transferring the patient to [facility]. Hence, the patient will be transferred to [facility] today. DISPOSITION AND PLAN: The patient will be discharged to [facility] today. The patient will be continued on T-tube for oxygenation. The patient will be continued on the same G-tube feedings. The patient will be continued on the same medications. The patient will remain a FULL CODE. CONDITION AT DISCHARGE: Stable. DISCHARGE MEDICATIONS: 1. Famotidine 20 mg via G-tube daily. 2. Lantus insulin 18 units subcutaneous at bedtime. 3. Intravenous vancomycin as per pharmacy. 4. Atorvastatin 20 mg p.o. via G-tube daily. 5. Digoxin 0.125 mg via G-tube daily. 6. Cefepime 2 gram IV piggyback q.24h. 7. Cardizem 120 mg via G-tube daily. 8. Theragran 1 tablet via G-tube daily. 9. Ferrous sulfate 300 mg via G-tube daily. 10. Lactobacillus 1 tab via G-tube b.i.d. 11. Fenofibrate 145 mg via G-tube daily. 12. Vitamin C 500 mg via G-tube. 13. Insulin sliding scale. 14. Ativan 0.5 mg IV q.6h. p.r.n. anxiety. 15. Zofran 4 mg IV q.6h. p.r.n. nausea, vomiting. 16. Morphine 2 mg q. 4 hours p.r.n. for symptoms of pain. 17. Ventolin HFA 2 puffs inhaled q.2h. p.r.n. shortness of breath. 18. Ventolin inhaler 2.5 q.3h. p.r.n. wheezing. 19. Sodium chloride at 40 mL per hour. 20. Albuterol nebulization 2.5 grams q.6h. around the clock. PERTINENT LABORATORY AND DIAGNOSTIC DATA: 1. Chest x-ray. No radiographic evidence of acute cardiopulmonary pathology. Low inspiratory lung volumes. 2. Renal ultrasound. Benign bilateral renal cysts. 3. Mild bilateral hydronephrosis. Ferreira catheter in the bladder. 4. Urine culture. Positive for strep agalactiae, strep beta hemolytic group G and Pseudomonas aeruginosa. 6. Blood culture x2 positive for coagulase-negative Staphylococcus. 7. Latest CBC: WBC 14.7, hemoglobin 7.6, hematocrit 20.7, platelet count 258. Latest BMP: Sodium 141, potassium 4.7, chloride 106, carbon dioxide 25, anion gap 18, BUN 70, creatinine 2.2, glucose 192, calcium 9.2, phosphorus 4.2, magnesium 2.4. 8. Fasting lipid panel: Triglycerides 434, total cholesterol 103, AST of 17. 9. Hemoglobin A1c 7.2. At this time, I would like to thank all the consultants for seeing the patient, doing the necessary procedures, and providing clinical recommendations. The case and management of this patient was fully discussed with Dr. Stevens. Approximately 40 minutes was spent on coordinating the discharge on this patient. DAX STEVENS MD, AM/GENOVEVA Conf#: [id number] DID#: [id number] MTDD
--- NOTE | 2016-08-03 17:56 | PN ---
DATE: 08/03/2016 SUBJECTIVE: Gross hematuria. The patient had urinary clot retention and had to have a bladder irri gation to remove a lot of blood clots from his bladder, then he was put on continuous bladder irriga tion. The irrigation did clear the urine, and now his urine is clear. The irrigation was stopped t his morning, and the urine remains clear. OBJECTIVE: VITAL SIGNS: Temperature is 98, pulse is 99, respirations 20, blood pressure 115/65. GENITOURINARY: The Ferreira catheter is still in place and draining clear urine. There is no irrigati on running, but it was still connected as I ordered. Therefore, since the urine remained clear with no irrigation running, we will discontinue the irriga tion and plug the irrigation port with a catheter plug, and the patient is going to be transferred t [facility] for respiratory treatment tonight, and that is okay from my side, but I will re commend to keep the Ferreira catheter in place. Dictated By: TANA DUBOIS/GENOVEVA Conf#: [id number] DID#: [id number]
[2016-08-04] MEDS ORDERED: LEVOFLOXACIN 250 MG TAB GTB SCH (06:00)
[2016-08-04 17:18] LABS: MICROALBUMIN 3.6 mg/dL
== END 2016-08-03 19:27 | DRG 871 ==
LOC: E/R 19:36 → TEL 22:29
PROVIDERS: ADMIT Student in an Organized Health Care Education/Training Program; ATTEND Student in an Organized Health Care Education/Training Program
PROC: 0T2BX0Z Change Drainage Device in Bladder, External Approach (ICD-10-PCS; principal; 2016-08-01)
PROC: 3E1K78Z Irrigation of Genitourinary Tract using Irrigating Substance, Via Natural or Artificial Opening (ICD-10-PCS; 2016-08-01)
PROC: 30233N1 Transfusion of Nonautologous Red Blood Cells into Peripheral Vein, Percutaneous Approach (ICD-10-PCS; 2016-08-01)
DX: A41.1 Sepsis due to other specified staphylococcus (principal); G93.40 Encephalopathy, unspecified; Z93.0 Tracheostomy status; N17.9 Acute kidney failure, unspecified; J96.10 Chronic respiratory failure, unspecified whether with hypoxia or hypercapnia; E87.2 Acidosis; N18.4 Chronic kidney disease, stage 4 (severe); N39.0 Urinary tract infection, site not specified; I47.1 Supraventricular tachycardia; E87.1 Hypo-osmolality and hyponatremia; I69.351 Hemiplegia and hemiparesis following cerebral infarction affecting right dominant side; N13.2 Hydronephrosis with renal and ureteral calculous obstruction; K21.9 Gastro-esophageal reflux disease without esophagitis; D63.8 Anemia in other chronic diseases classified elsewhere; N31.9 Neuromuscular dysfunction of bladder, unspecified; E78.5 Hyperlipidemia, unspecified; J44.9 Chronic obstructive pulmonary disease, unspecified; E86.0 Dehydration; Z93.1 Gastrostomy status; I25.10 Atherosclerotic heart disease of native coronary artery without angina pectoris; N40.1 Benign prostatic hyperplasia with lower urinary tract symptoms; R33.8 Other retention of urine; E11.9 Type 2 diabetes mellitus without complications; Z87.19 Personal history of other diseases of the digestive system; R31.0 Gross hematuria; E87.5 Hyperkalemia; F03.90 Unspecified dementia, unspecified severity, without behavioral disturbance, psychotic disturbance, mood disturbance, and anxiety; R65.20 Severe sepsis without septic shock; I12.9 Hypertensive chronic kidney disease with stage 1 through stage 4 chronic kidney disease, or unspecified chronic kidney disease; Z74.01 Bed confinement status
CPT/HCPCS: 36415; 36430; 71010; 76775; 80048; 80053; 80061; 81001; 81003; 82043; 82306; 82962; 83036; 83605; 83735; 84100; 84155; 84300; 84443; 84484; 85025; 85610; 85730; 86850; 86900; 86901; 86920; 87040; 87081; 87086; 93005; 94640; 96374; 96375; J0610; J0692; J1815; J2543; J3370; J7030; J7040; J7050; P9016

== ENCOUNTER 2016-08-16 20:13 | Inpatient (IN) | payer MEDICARE, OTHER ==
[~2016-08-16] VITALS: Ht 167.6 cm; Wt 73.0 kg
[~2016-08-16 20:13] MED LIST changes: +ACET-141 GTB; +ACET-2047 GTB; -ACET160O41 GTB; +ALBU2.5V3 NEB; +ASCO500S2 GTB; -ATOR10TA65 PO; +ATOR20TA38 GTB; +BISA10SU55 RC; +CHLO473M4 MM; +CRAN3875 GTB; -DEXT37.55 PO; -DEXT50DI2 INJ; +DIGO125T6 GTB; +DILT120C77 GTB; -DILT60TA29 PO; +DOCU-144 GTB; +DOXA4TAB3 GTB; -ENOX30DI10 SQ; +ENOX40DI14 SC; +FENO160T13 GTB; +FERR220S3 GTB; -HYDR28CR43 TP; -INSU100I22 SQ; +LACTINEXG GTB; +MAGN400O4 GTB; -MORP2CAR IV; +MULTI GTB; +NA P135E RC; -NORM5DIS26 IJ; +OMEP20CA16 GTB; -PANT40VI7 IV; -RANI300T PO; -[UNRECOGNIZED DRUG - CODE] IV; -[UNRECOGNIZED DRUG - CODE] PO; -[UNRECOGNIZED DRUG - OTHER] IV
[2016-08-16] MEDS: SOD CHLORIDE 0.9% 1,000 ML IV SCH ×2 (20:32→22:06)
[2016-08-16] MEDS ORDERED: morphine 2 MG INJ IV PRN (21:00)
[2016-08-16] MEDS ORDERED: LORAZEPAM 2 MG INJ IV PRN (21:00)
[2016-08-16] MEDS ORDERED: BISACODYL 10 MG SUPP PR PRN (21:00)
[2016-08-16] MEDS ORDERED: IPRATROPIUM (HFA) 12.9 GM INHALER INH PRN (21:00)
[2016-08-16] MEDS ORDERED: ALBUTEROL HFA 8 GM INHALER INH PRN (21:00)
[2016-08-16] MEDS ORDERED: ACETAMINOPHEN 650 MG SUPP PR PRN (21:00)
[2016-08-16] MEDS ORDERED: ONDANSETRON 4 MG INJ IV PRN (21:00)
[2016-08-16 21:30] VITALS: PULSE 99; RESP 30
[2016-08-16] MEDS ORDERED: GLUCAGON 1 MG INJ IM PRN (21:30)
[2016-08-16] MEDS ORDERED: GLUCOSE GEL 15 GRAM TUBE PO PRN ×2 (21:30)
[2016-08-16] MEDS ORDERED: PANTOPRAZOLE IV 80 MG in SOD CHLORIDE 0.9% 100 ML IV SCH (21:30)
[2016-08-16] MEDS ORDERED: DEXTROSE 50% 50 ML SYRINGE IV PRN ×2 (21:30)
[2016-08-16] MEDS: INSULIN ASPART [NOVOLOG] 3 ML PEN SC SCH (21:30)
[2016-08-16] MEDS ORDERED: GLUCOSE GEL 15 GRAM TUBE BUCCAL PRN (21:30)
[2016-08-16 21:38] VITALS: PULSE 98
--- NOTE | 2016-08-16 21:59 | HP ---
Date/Time of Note Date/Time of Note DATE: 08/16/16 TIME: 21:47 Assessment/Plan VTE Prophylaxis VTE Prophylaxis Intervention: contraindicated VTE Contraindication Reason: bleeding Assessment/Plan Assessment/Plan 76 yo male with a past medical history of essential hypertension, type II dm, anemia of chronic disease, trach dependent respiratory failure, COPD, dyslipidemia, dysphagia s/p PEG, who transferred from [place] for gross hematuria. 1. Gross hematuria - infectious vs clotting disorder - will admit the patient to the ICU, consult urology, continue with serial H/H, monitor for acute changes , check urine cultures. 2. Trach dependent respiratory failure - consult pulm, continue with supplemental oxygen 3. Dysphagia s/p peg - resume peg tube feeds 4. Essential hypertension - continue with current medications 5. Type II DM - continue with diabeta source, q6h POC glucose, ISS 6. Anemia of chronic disease - monitor H/H 7. COPD - prn breathing treatments 8. Dyslipidemia - continue with statin 9. GI ppx - protonix 10. DVT ppx - scds as per clinical course. this critical care note took greater than 1 hour to complete HPI/ROS Admit Date/Time Admit Date/Time Aug 16, 2016 at 9:47 pm Hx of Present Illness 76 yo male with a past medical history of essential hypertension, type II dm, anemia of chronic disease, trach dependent respiratory failure, COPD, dyslipidemia, dysphagia s/p PEG, who transferred from [place] for gross hematuria. He has been on continuous bladder irrigation as per urology. He had a similar admission on 08/03/16 for gross hematuria as well. No other complaints. Patient is non-verbal, all the information was gathered from the chart. ROS 14 point review of systems completed, please refer to HPI for any positive findings PMH/Family/Social Past Medical History trach dependent respiratory failure, COPD, dysphagia s/p PEG Medical History: diabetes, high cholesterol, hypertension, peptic ulcer disease , renal disease, urinary tract infection Past Surgical History colonoscopy, s/p trach, s/p PEG, cystoscopy Family History Significant Family History: no pertinent family hx Social History Alcohol Use: none Smoking Status: Unknown if ever smoked Drug Use: none Exam/Review of Systems Exam Exam Gen Erin: NAD, AAOx4 HEENT: NC/AT, PERRLA, EOMI, no pharyngeal erythema, no tonsillar exudates, no lymphadenopathy, no JVD, no carotid bruits NECK: supple, no thyromegaly, trach site C/D/I THORAX: symmetrical, no obvious deformities CV: S1S2, RRR, no M/G/R Lungs: CTAB no W/C/R/R Abd: soft, NT/ND, +BS, no rebound, no guarding, neg HSM : thapa in place - gross hematuria noted with irrigation EXT: no edema, no ecchymosis, no clubbing, FROM Neuro: contractures noted Psych: withdrawn Skin: C/D/I Medications Medications Current Medications Sodium Chloride (NS) 1,000 ml @ 50 mls/hr Q20H IV ; Start 08/16/16 at 20:32 Ondansetron HCl (Zofran Inj) 4 mg Q6H PRN IV NAUSEA AND/OR VOMITING; Start at 21:00 Acetaminophen (Tylenol Supp) 650 mg Q4H PRN [place] PAIN LEVEL 1-3 OR FEVER; Start 08/16/16 at 21:00 Morphine Sulfate (morphine) 2 mg Q4H PRN IV PAIN LEVEL 7-10; Start 08/16/16 at 21:00 Lorazepam (Ativan) 1 mg Q2H PRN IV ANXIETY; Start 08/16/16 at 21:00 Bisacodyl (Dulcolax Supp) 10 mg DAILY PRN [place] CONSTIPATION; Start 08/16/16 at 21 :00 Insulin Aspart NOVOLOG *MILD* ALGORI... Q4 SC ; Start 08/16/16 at 21:30 Pantoprazole/ Sodium Chloride (Protonix Iv/NS) 100 ml @ 10 mls/hr Q10H IV ; Start 08/16/16 at 21:30 Chlorhexidine Gluconate (Peridex) 15 ml Q12 MM ; Start 08/16/16 at 21:00 Digoxin (Digoxin) 0.125 mg DAILY@13 GTB ; Start 08/17/16 at 13:00 Diltiazem HCl (Cardizem Cd) 120 mg DAILY PO ; Start 08/17/16 at 09:00 Doxazosin Mesylate (Cardura) 4 mg HS GTB ; Start 08/16/16 at 22:00 Ferrous Sulfate (Feosol Liquid Cup) 300 mg DAILY GTB ; Start 08/17/16 at 09:00 Miscellaneous Information 1 ea NOTE XX ; Start 08/16/16 at 21:30 Glucose (Glutose) 15 gm Q15M PRN PO DECREASED GLUCOSE; Start 08/16/16 at 21:30 Glucose (Glutose) 22.5 gm Q15M PRN PO DECREASED GLUCOSE; Start 08/16/16 at 21: 30 Dextrose (D50w Syringe) 25 ml Q15M PRN IV DECREASED GLUCOSE; Start 08/16/16 at 21:30 Dextrose (D50w Syringe) 50 ml Q15M PRN IV DECREASED GLUCOSE; Start 08/16/16 at 21:30 Glucagon (Glucagen) 1 mg Q15M PRN IM DECREASED GLUCOSE; Start 08/16/16 at 21:30 Glucose (Glutose) 15 gm Q15M PRN BUCCAL DECREASED GLUCOSE; Start 08/16/16 at 21 :30 Procedures Procedures CXR IMPRESSION: 1. Tracheostomy tube. 2. Pulmonary edema or bilateral multifocal pneumonia, unchanged. 3. Atherosclerosis. EV PEMBERTON MD Aug 16, 2016 21:58
[2016-08-16 22:00] VITALS: BP 87/52; PULSE 82; RESP 23
[2016-08-16] MEDS: metroNIDAZOLE 500 MG/NS (PMX) 100 ML IVPB SCH (22:07)
[2016-08-16] MEDS: CHLORHEXIDINE GLUCONATE 15 ML UD CUP MM SCH (22:07)
[2016-08-16] MEDS: DOXAZOSIN 4 MG TAB GTB SCH (22:24)
[2016-08-16 22:30] VITALS: BP 99/48; PULSE 80; RESP 23
[2016-08-16 23:00] VITALS: BP 106/58; PULSE 80; RESP 23
[2016-08-16 23:30] VITALS: BP 90/54; PULSE 92; RESP 15
[2016-08-17] VITALS (31 sets, daily range): BP systolic 68–114; BP diastolic 41–74; PULSE 78–145; RESP 17–39
[2016-08-17] MEDS: INSULIN ASPART [NOVOLOG] 3 ML PEN SC SCH ×6 (01:00→20:48)
[2016-08-17] MEDS: metroNIDAZOLE 500 MG/NS (PMX) 100 ML IVPB SCH ×2 (05:02→13:28)
[2016-08-17 05:08] LABS: BASOPHILS % 0.2 % (0.0-2.0); EOSINOPHILS # 0.5 10^3/ul (0.0-0.5); EOSINOPHILS % 5.1 % (0.0-7.0); HEMATOCRIT 21.3 % (42.0-52.0); HEMOGLOBIN 7.1 g/dl (14.0-18.0); LYMPHOCYTES # 1.5 10^3/ul (0.8-2.9); LYMPHOCYTES % 16.7 % (15.0-51.0); MEAN CORPUSCULAR HEMOGLOBIN 28.2 pg (29.0-33.0); MEAN CORPUSCULAR HGB CONC 33.3 g/dl (32.0-37.0); MEAN CORPUSCULAR VOLUME 84.9 fl (82.0-101.0); MEAN PLATELET VOLUME 9.3 fl (7.4-10.4); MONOCYTE # 0.7 10^3/ul (0.3-0.9); NEUTROPHIL # 6.3 10^3/ul (1.6-7.5); PLATELET COUNT 247 10^3/UL (140-440); RED BLOOD COUNT 2.51 10^6/ul (4.70-6.10); RED CELL DISTRIBUTION WIDTH 19.6 % (11.5-14.5); UNCORRECTED WBC 8.9 10^3/ul (4.8-10.8); WHITE BLOOD COUNT 8.9 10^3/ul (4.8-10.8)
[2016-08-17 05:28] LABS: ALBUMIN 2.6 g/dl (3.3-4.9)
[2016-08-17 05:29] LABS: POTASSIUM 4.4 mmol/L (3.5-5.1)
[2016-08-17 05:31] LABS: ALBUMIN/GLOBULIN RATIO 0.81; CREATININE 1.61 mg/dl (0.61-1.24); TOTAL PROTEIN 5.8 g/dl (6.1-8.1)
[2016-08-17 05:32] LABS: CALCIUM 7.5 mg/dl (8.4-10.2)
[2016-08-17] MEDS ORDERED: PANTOPRAZOLE 40 MG INJ IV SCH (06:00)
[2016-08-17 06:04] LABS: CONDITION 1; LH ANALYZER COMMENTS 1
--- NOTE | 2016-08-17 08:26 | PN ---
Date/Time of Note Date/Time of Note DATE: 08/17/16 TIME: 08:24 Assessment/Plan VTE Prophylaxis VTE Prophylaxis Intervention: SCD's Lines/Catheters IV Catheter Type (from Nrs): Peripheral IV Urinary Cath still in place: Yes Reason Cath still needed: urinary retention Assessment/Plan Assessment/Plan 1. Gross hematuria - infectious vs clotting disorder - bladder irrigation, continue with serial H/H, monitor for acute changes, check urine cultures. 2. Trach dependent respiratory failure - pulm care, continue with supplemental oxygen 3. Dysphagia s/p peg - resume peg tube feeds 4. Essential hypertension - continue with current medications 5. Type II DM - continue with diabeta source, q6h POC glucose, ISS 6. Anemia of chronic disease - monitor H/H 7. COPD - prn breathing treatments 8. Dyslipidemia - continue with statin 9. PAF > NSR - NO AC DUE TO HEMATURIA 10. NSVT - REMAINS IN NSR 11. SVT - REMAINS IN NSR Subjective 24 Hr Interval Summary Free Text/Dictation The pteint transerrred to ICU due to hematuria Exam/Review of Systems Vital Signs Vitals Vital Signs Date Time Temp Pulse Resp B/P Pulse Ox O2 Delivery O2 Flow Rate FiO2 08/17/16 07:00 98.2 24 93/57 99 08/17/16 06:00 93 Trach Collar 08/17/16 05:40 10.0 40 Intake and Output 08/16/16 08/16/16 08/17/16 15:00 23:00 07:00 Intake Total 225 ml 700 ml Output Total 1000 ml 1600 ml Balance -775 ml -900 ml Results Result Diagram: 08/17/16 0428 08/17/16 0428 Results 24 hrs Laboratory Tests Test 08/16/16 22:15 08/17/16 01:45 08/17/16 04:28 08/17/16 04:54 Bedside Glucose 140 140 152 Alanine Aminotransferase (ALT/SGPT) 22 Albumin 2.6 L Albumin/Globulin Ratio 0.81 Alkaline Phosphatase 55 Anion Gap 14 Aspartate Amino Transf (AST/SGOT) 19 Basophils # 0.0 Basophils % 0.2 Blood Morphology Comment Blood Urea Nitrogen 49 H Calcium Level 7.5 L Carbon Dioxide Level 24 Chloride Level 107 Creatinine 1.61 H Direct Bilirubin 0.00 Eosinophils # 0.5 Eosinophils % 5.1 Globulin 3.20 Glucose Level 122 # Hematocrit 21.3 #L Hemoglobin 7.1 L Indirect Bilirubin 0.0 Lymphocytes # 1.5 Lymphocytes % 16.7 Mean Corpuscular Hemoglobin 28.2 L Mean Corpuscular Hemoglobin Concent 33.3 Mean Corpuscular Volume 84.9 Mean Platelet Volume 9.3 Monocytes # 0.7 Monocytes % 8.0 Neutrophils # 6.3 Neutrophils % 70.0 Nucleated Red Blood Cells # 0.0 Nucleated Red Blood Cells % 0.0 Platelet Count 247 Potassium Level 4.4 Red Blood Count 2.51 #L Red Cell Distribution Width 19.6 H Sodium Level 141 Total Bilirubin 0.0 L Total Protein 5.8 L White Blood Count 8.9 # Medications Medications Current Medications Sodium Chloride (NS) 1,000 ml @ 50 mls/hr Q20H IV Last administered on 22:06; Admin Dose 50 MLS/HR; Start 08/16/16 at 20:32 Ondansetron HCl (Zofran Inj) 4 mg Q6H PRN IV NAUSEA AND/OR VOMITING; Start at 21:00 Acetaminophen (Tylenol Supp) 650 mg Q4H PRN [place] PAIN LEVEL 1-3 OR FEVER; Start 08/16/16 at 21:00 Morphine Sulfate (morphine) 2 mg Q4H PRN IV PAIN LEVEL 7-10; Start 08/16/16 at 21:00 Lorazepam (Ativan) 1 mg Q2H PRN IV ANXIETY; Start 08/16/16 at 21:00 Bisacodyl (Dulcolax Supp) 10 mg DAILY PRN [place] CONSTIPATION; Start 08/16/16 at 21 :00 Insulin Aspart (Novolog Insulin Pen) NOVOLOG *MILD* ALGORI... Q4 SC Last administered on 08/17/16 05:03; Admin Dose 1 UNIT; Start 08/16/16 at 21:30 Chlorhexidine Gluconate (Peridex) 15 ml Q12 MM Last administered on 08/16/16 22:07; Admin Dose 15 ML; Start 08/16/16 at 21:00 Digoxin (Digoxin) 0.125 mg DAILY@13 GTB ; Start 08/17/16 at 13:00 Diltiazem HCl (Cardizem Cd) 120 mg DAILY PO ; Start 08/17/16 at 09:00 Doxazosin Mesylate (Cardura) 4 mg HS GTB Last administered on 08/16/16 22:24; Admin Dose 4 MG; Start 08/16/16 at 22:00 Ferrous Sulfate (Feosol Liquid Cup) 300 mg DAILY GTB ; Start 08/17/16 at 09:00 Miscellaneous Information 1 ea NOTE XX ; Start 08/16/16 at 21:30 Glucose (Glutose) 15 gm Q15M PRN PO DECREASED GLUCOSE; Start 08/16/16 at 21:30 Glucose (Glutose) 22.5 gm Q15M PRN PO DECREASED GLUCOSE; Start 08/16/16 at 21: 30 Dextrose (D50w Syringe) 25 ml Q15M PRN IV DECREASED GLUCOSE; Start 08/16/16 at 21:30 Dextrose (D50w Syringe) 50 ml Q15M PRN IV DECREASED GLUCOSE; Start 08/16/16 at 21:30 Glucagon (Glucagen) 1 mg Q15M PRN IM DECREASED GLUCOSE; Start 08/16/16 at 21:30 Glucose 15 gm 15 gm Q15M PRN BUCCAL DECREASED GLUCOSE; Start 08/16/16 at 21:30 Metronidazole (Flagyl 500 Mg (Pmx)) 100 ml @ 100 mls/hr Q8 IVPB Last administered on 08/17/16 05:02; Admin Dose 100 MLS/HR; Start 08/16/16 at 22:00 Pantoprazole (Protonix Iv) 40 mg DAILY@06 IV Last administered on 08/17/16 05: 55; Admin Dose 40 MG; Start 08/17/16 at 06:00 JORGE CAZARES MD Aug 17, 2016 08:26
[2016-08-17] MEDS: DILTIAZEM (CD) 120 MG CAP PO SCH ×2 (08:33→12:10)
[2016-08-17] MEDS: CHLORHEXIDINE GLUCONATE 15 ML UD CUP MM SCH ×2 (08:42→20:41)
[2016-08-17] MEDS: FERROUS SULFATE 60 MG/ML 5ML CUP GTB SCH (08:42)
--- NOTE | 2016-08-17 11:51 | CONS ---
DATE OF ADMISSION: 08/16/2016 DATE OF CONSULTATION: 08/17/2016 PULMONARY CONSULTATION REASON FOR CONSULTATION: Ventilator management. Thank you, Dr. Kumar, for this consultation. HISTORY OF PRESENT ILLNESS: This is a 76-year-old gentleman, vent-dependent respiratory failure, tr ansferred from [facility] for persistent gross hematuria requiring continuous bladd er irrigation upon request of urologist. The patient also had low blood pressure, but currently not requiring initiation of vasopressor support. PAST MEDICAL HISTORY: 1. Ongoing hematuria, pending urology recommendations. 2. Trach-dependent respiratory failure. 3. Dysphagia. 4. Essential hypertension. 5. Underlying history of chronic obstructive pulmonary disease. MEDICATIONS: Per chart. ALLERGIES: NONE. SOCIAL HISTORY: Ex-smoker, no alcohol, no history of drug use. FAMILY HISTORY: Unknown. REVIEW OF SYSTEMS: A 12-point review of systems currently unable to perform. PHYSICAL EXAMINATION: GENERAL: Elderly-appearing gentleman, intubated on mechanical ventilation. VITAL SIGNS: Currently afebrile, tracheostomy on cool aerosol. Temperature 98, pulse 78, blood pre ssure 93/57, O2 saturation 96%, FIO2 of 40%, cool aerosol. NECK: Trach site clean and intact. CARDIAC: S1, S2, no added sounds or murmurs. CHEST: Diminished air entry bilaterally. ABDOMEN: Soft, nontender. No guarding or rebound. EXTREMITIES: No cyanosis, clubbing or edema. NEUROLOGIC: Generalized weakness. LABORATORY DATA: White count 8.9, hemoglobin 7.1, platelets of 247. BUN 49, creatinine 1.61. DIAGNOSTIC DATA: Chest x-ray was reviewed, shows ongoing pulmonary edema. Renal ultrasound showed bilateral hydronephrosis, mild. Abdominal x-ray shows no free air or obstruction. IMPRESSION AND PLAN: 1. Chronic respiratory failure with tracheostomy. 2. Significant hematuria, pending further workup and recommendations. 3. Significant anemia, likely secondary to ongoing bleeding. 4. Paroxysmal atrial fibrillation complicated by supraventricular tachycardia, now in normal sinus rhythm. PLAN: 1. Transfusion of packed red blood cells. 2. Continue cool aerosol. 3. Tube feeding. 4. Urology recommendations. 5. DVT and GI prophylaxis. Dictated By: MUNIR JAMES/GENOVEVA Conf#: [id number] DID#: [id number]
[2016-08-17] MEDS: DIGOXIN 0.125 MG TAB GTB SCH (12:10)
[2016-08-17] MEDS ORDERED: AMIODARONE 150MG/D5W BOLUS 100 ML IV ONE (13:00)
[2016-08-17] MEDS ORDERED: AMIODARONE 900 MG in DEXTROSE 5% 482 ML IV SCH (13:00)
--- NOTE | 2016-08-17 13:00 | PN ---
DATE: 08/17/2016 SUBJECTIVE: The patient was transferred to ICU secondary to significant hematuria and anemia, curre ntly getting bladder irrigation. He is in no distress, awake. Tolerates tube feeding. VITAL SIGNS: Temperature 98.6, pulse 87, respirations 25, blood pressure 92/51, saturation 97% on T -piece. LABORATORY DATA: WBC 8.9, H and H 7.1 and 21.8, platelets 247, no shift, no bands. BUN 49, creatin ine 1.61. ANTIMICROBIALS: The patient remains on IV Flagyl. PHYSICAL EXAMINATION: GENERAL: This is a fragile, elderly man who is awake, in no distress. HEENT: Head atraumatic, normocephalic. Sclerae anicteric. Buccal mucosa dry. NECK: Supple. Tracheostomy present. CHEST: Rise symmetrical. Breath sounds diminished to bases. HEART: S1, S2. ABDOMEN: Soft, bowel sounds present. EXTREMITIES: Without cyanosis. Bilateral trace edema. ASSESSMENT: 1. Hematuria, getting bladder irrigation and being followed by Dr. Miller in urology consultation. 2. Clostridium difficile colitis. 3. Chronic respiratory failure. 4. Status post urinary tract infection. 5. Diabetes. 6. History of cerebrovascular accident. PLAN: The patient remains stable. Continue present care, bladder irrigation. Monitor H and H. Fo llow pulmonary, urology recommendations. Dictated By: ADITYA CALLAHAN HIDE SALTER for VEGA SCHULER/GENOVEVA Conf#: [id number] DID#: [id number]
--- NOTE | 2016-08-17 14:52 | PN ---
Date/Time of Note Date/Time of Note DATE: 08/17/16 TIME: 14:49 Assessment/Plan VTE Prophylaxis VTE Prophylaxis Intervention: SCD's Lines/Catheters IV [facility] Sal[place] Assessment/Plan Chief Complaint/Hosp Course 1. Gross hematuria - infectious vs clotting disorder - consult urology, continue with serial H/H, monitor for acute changes, check urine cultures. 2. Trach dependent respiratory failure - pulm consult appreciated, continue with supplemental oxygen 3. Dysphagia s/p peg - resume peg tube feeds 4. Essential hypertension - continue with current medications 5. Type II DM - continue with diabeta source, q6h POC glucose, ISS 6. Anemia of chronic disease - monitor H/H 7. COPD - prn breathing treatments 8. Dyslipidemia - continue with statin 9. C Diff Colitis -ID consult appreciated, cont Flagyl 10. DVT ppx - scds Problems: Subjective 24 Hr Interval Summary Subjective hx not possible: pt non-verbal Exam/Review of Systems Vital Signs Vitals Vital Signs Date Time Temp Pulse Resp B/P Pulse Ox O2 Delivery O2 Flow Rate FiO2 08/17/16 12:00 145 08/17/16 12:00 98.4 27 109/74 97 08/17/16 09:20 5.0 28 08/17/16 09:20 Aerosol T Tube Intake and Output 08/16/16 08/16/16 08/17/16 15:00 23:00 07:00 Intake Total 225 ml 700 ml Output Total 1000 ml 1600 ml Balance -775 ml -900 ml Exam Constitutional: non-verbal Respiratory: clear to auscultation Cardiovascular: regular rate and rhythm Gastrointestinal: soft, No distended Musculoskeletal: nl extremities to inspection Results Result Diagram: 08/17/16 0428 08/17/16 0428 Results 24 hrs Laboratory Tests Test 08/16/16 22:15 08/17/16 01:45 08/17/16 04:28 08/17/16 04:54 Bedside Glucose 140 140 152 Alanine Aminotransferase (ALT/SGPT) 22 Albumin 2.6 L Albumin/Globulin Ratio 0.81 Alkaline Phosphatase 55 Anion Gap 14 Aspartate Amino Transf (AST/SGOT) 19 Basophils # 0.0 Basophils % 0.2 Blood Morphology Comment Blood Urea Nitrogen 49 H Calcium Level 7.5 L Carbon Dioxide Level 24 Chloride Level 107 Creatinine 1.61 H Direct Bilirubin 0.00 Eosinophils # 0.5 Eosinophils % 5.1 Globulin 3.20 Glucose Level 122 # Hematocrit 21.3 #L Hemoglobin 7.1 L Indirect Bilirubin 0.0 Lymphocytes # 1.5 Lymphocytes % 16.7 Mean Corpuscular Hemoglobin 28.2 L Mean Corpuscular Hemoglobin Concent 33.3 Mean Corpuscular Volume 84.9 Mean Platelet Volume 9.3 Monocytes # 0.7 Monocytes % 8.0 Neutrophils # 6.3 Neutrophils % 70.0 Nucleated Red Blood Cells # 0.0 Nucleated Red Blood Cells % 0.0 Platelet Count 247 Potassium Level 4.4 Red Blood Count 2.51 #L Red Cell Distribution Width 19.6 H Sodium Level 141 Total Bilirubin 0.0 L Total Protein 5.8 L White Blood Count 8.9 # Test 08/17/16 08:41 08/17/16 13:06 Bedside Glucose 153 175 Medications Medications Current Medications Sodium Chloride (NS) 1,000 ml @ 50 mls/hr Q20H IV Last administered on 22:06; Admin Dose 50 MLS/HR; Start 08/16/16 at 20:32 Ondansetron HCl (Zofran Inj) 4 mg Q6H PRN IV NAUSEA AND/OR VOMITING; Start at 21:00 Acetaminophen (Tylenol Supp) 650 mg Q4H PRN [place] PAIN LEVEL 1-3 OR FEVER; Start 08/16/16 at 21:00 Morphine Sulfate (morphine) 2 mg Q4H PRN IV PAIN LEVEL 7-10 Last administered on 08/17/16 12:09; Admin Dose 2 MG; Start 08/16/16 at 21:00 Lorazepam (Ativan) 1 mg Q2H PRN IV ANXIETY; Start 08/16/16 at 21:00 Bisacodyl (Dulcolax Supp) 10 mg DAILY PRN [place] CONSTIPATION; Start 08/16/16 at 21 :00 Insulin Aspart (Novolog Insulin Pen) NOVOLOG *MILD* ALGORI... Q4 SC Last administered on 08/17/16 13:15; Admin Dose 1 UNIT; Start 08/16/16 at 21:30 Chlorhexidine Gluconate (Peridex) 15 ml Q12 MM Last administered on 08/17/16 08:42; Admin Dose 15 ML; Start 08/16/16 at 21:00 Digoxin (Digoxin) 0.125 mg DAILY@13 GTB Last administered on 08/17/16 12:10; Admin Dose 0.125 MG; Start 08/17/16 at 13:00 Diltiazem HCl (Cardizem Cd) 120 mg DAILY PO Last administered on 08/17/16 12: 10; Admin Dose 120 MG; Start 08/17/16 at 09:00 Doxazosin Mesylate (Cardura) 4 mg HS GTB Last administered on 08/16/16 22:24; Admin Dose 4 MG; Start 08/16/16 at 22:00 Ferrous Sulfate (Feosol Liquid Cup) 300 mg DAILY GTB Last administered on 08:42; Admin Dose 300 MG; Start 08/17/16 at 09:00 Miscellaneous Information 1 ea NOTE XX ; Start 08/16/16 at 21:30 Glucose (Glutose) 15 gm Q15M PRN PO DECREASED GLUCOSE; Start 08/16/16 at 21:30 Glucose (Glutose) 22.5 gm Q15M PRN PO DECREASED GLUCOSE; Start 08/16/16 at 21: 30 Dextrose (D50w Syringe) 25 ml Q15M PRN IV DECREASED GLUCOSE; Start 08/16/16 at 21:30 Dextrose (D50w Syringe) 50 ml Q15M PRN IV DECREASED GLUCOSE; Start 08/16/16 at 21:30 Glucagon (Glucagen) 1 mg Q15M PRN IM DECREASED GLUCOSE; Start 08/16/16 at 21:30 Glucose 15 gm 15 gm Q15M PRN BUCCAL DECREASED GLUCOSE; Start 08/16/16 at 21:30 Amiodarone HCl/ Dextrose (Cordarone Iv/ D5W) 500 ml @ 0 mls/hr Q0M IV Last administered on 08/17/16 14:14; Admin Dose 33.4 MLS/HR; Start 08/17/16 at 13:00 ; Stop 08/18/16 at 12:59 Metronidazole (Flagyl) 500 mg Q8 GTB ; Start 08/17/16 at 22:00 Lansoprazole (Prevacid) 30 mg DAILY@06 GTB ; Start 08/18/16 at 06:00 ISIS BATISTA Aug 17, 2016 14:52
--- NOTE | 2016-08-17 14:54 | CONS ---
DATE OF ADMISSION: 08/16/2016 DATE OF CONSULTATION: 08/17/2016 TYPE OF CONSULTATION: Nephrology. HISTORY OF PRESENT ILLNESS: This is a 76-year-old male with a past medical history of chronic respi ratory failure, status post tracheostomy, a history of SVT, anemia, a history of neurogenic bladder with indwelling Ferreira, a history of hypertension, BPH, diabetes, CVA, dyslipidemia, and COPD, who wa s transferred from [facility] to [facility] ICU due to gross hematuria. The patient was initially admitted to [facility] in early July. At that time the patient was noted to be septic, in acute kidney injury. The patient was eventually stabilized and t ransferred to [facility]. While at [place] the patient started developing gross hemat uria, and was seen by urologist, Dr. Miller, and placed on continuous bladder irrigation and transf erred to the intensive care unit for continued care. While in the intensive care unit the patient h as been hypotensive and tachycardic. There have been no episodes of hematochezia or hemoptysis. In terms of the patient's renal history, the patient has a previous creatinine of around 2.0 mg/dL o n initial admission. The patient's renal function has improved to 1.6 mg/dL. The patient is having gross hematuria. There is no reported NSAID use or recent contrast exposure noted. PAST MEDICAL HISTORY: As stated above, a history of chronic respiratory failure, a history of encep halopathy, hypertension, diabetes, as well as CKD, dysphagia, COPD, and dyslipidemia. PAST SURGICAL HISTORY: Status post trach, status post PEG, status post colonoscopy. FAMILY HISTORY: No family history of kidney disease or heart disease. SOCIAL HISTORY: He does not drink, smoke or do drugs. MEDICATIONS: The patient's medication were reviewed. REVIEW OF SYSTEMS: Unable to do an adequate review of systems as the patient is obtunded. Pertinen t positives were obtained by reviewing the medical records, speaking to the hospital staff, as stat ed in the HPI, otherwise negative. PHYSICAL EXAMINATION: VITAL SIGNS: Blood pressure is 109/74, respirations 27, pulse is 114, temperature 98.4. HEENT: Head is normocephalic. NECK: Supple. HEART: Tachycardic. LUNGS: Showed diminished breath sounds at the base. ABDOMEN: Soft, nontender to palpation. No rebound or guarding. EXTREMITIES: Negative for clubbing or cyanosis. No edema. DERMATOLOGIC: No rashes. MUSCULOSKELETAL: Have no joint effusion. NEUROLOGIC: Limited exam due to lack of patient cooperation. LABORATORY DATA: Showed sodium 141, potassium 4.4, chloride 107, BUN 49, creatinine 1.61, calcium 7 .5. White count 8.9, hemoglobin 7.1, hematocrit 21.3, platelet count is 247. ASSESSMENT AND PLAN: This is a 76-year-old male who presents with: 1. Nonoliguric acute kidney injury on top of chronic kidney disease stage IIIB/IV, with a previous baseline creatinine around 1.5 mg/dL. The etiology of acute kidney injury was secondary to acute tu bular necrosis, with a possible component of hydronephrosis. The patient's renal function has impro micah during the hospital course with supportive care. The patient's renal creatinine is currently be low previous baseline. At this point, continue the current treatment plan, continue continuous blad zeke irrigation, continue IV fluids, continue supportive care, renally dose all meds, and avoid nephr otoxins. 2. Gross hematuria. The patient is currently receiving continuous bladder irrigation. Will contin ue. Will follow up with urologist, Dr. Miller. 3. Metabolic acidosis secondary to acute kidney injury. The patient's bicarbonate levels have impr wan. Will continue to monitor. 4. Anemia secondary to gross hematuria. Continue to monitor hemoglobin and hematocrit levels and w ould recommend to transfuse 2 units of PRBC. 5. Chronic respiratory failure, status post tracheostomy, currently stable. Continue to monitor. 6. Dysphagia. Status post PEG. Continue tube feeding. 7. Chronic encephalopathy with a history of dementia. Continue to monitor. No significant changes . 8. Hypertension. The patient is currently hypotensive. Will continue to monitor, continue IV fluid s. Hold blood pressure medication. 9. Diabetes. Continue Accu-Cheks and insulin sliding scale. 10. History of cerebrovascular accident. Continue medical management. 11. History of neurogenic bladder, with indwelling Ferreira catheter. 12. Atrial fibrillation with rapid ventricular rate. The patient is currently on amiodarone. Will continue. 13. Gastrointestinal and deep venous thrombosis prophylaxis. Continue proton pump inhibitor and se quential leg squeezers. Thank you, Dr. Kumar, for this interesting consultation. It will be a pleasure to follow up the p atient with you throughout the hospital course. Dictated By: JOSÉ BIGGS/GENOVEVA Conf#: [id number] DID#: [id number]
[2016-08-17] MEDS: SOD CHLORIDE 0.9% 1,000 ML IV SCH (20:00)
[2016-08-17] MEDS: DOXAZOSIN 4 MG TAB GTB SCH (20:42)
--- NOTE | 2016-08-17 20:52 | PN ---
DATE: 08/17/2016 SUBJECTIVE: This is an unfortunate 76-year-old male, who has gross hematuria. He is on a respirato r and has a G-tube in place. The patient had to be transferred to the ICU from [facility] because of continuous gross hematuria and the need for continuous bladder irrigation, and mo re nursing care of this patient that would be needed to make sure that the irrigation does not go dr y and he bleeds again. OBJECTIVE: VITAL SIGNS: Temperature today is 97.7, blood pressure 99/47, pulse is 80, respirations 24. The magali brandon is on a respirator and G-tube in place. ABDOMEN: The Ferreira catheter that he has is a 26[place] 3-way catheter, and as I visited him in the ICU, the catheter was not draining. I called the nurse and had her hand irrigate the catheter, and once she had irrigated and got the clot out, then the bladder became not distended anymore and drain ed. The urine with the irrigation was still coming out blood-tinged. LABORATORY DATA: CBC shows hemoglobin of 7.1, hematocrit 21.3, WBC 8.9. BUN is 49, creatinine 1.61 . Electrolytes are normal. The patient did receive 1 unit of blood. IMPRESSION: Gross hematuria. Patient is getting continuous bladder irrigation with normal saline, and his hemoglobin and hematocrit will be monitored closely, and would transfuse him as needed. I d id see his [id number] at his bedside and talked to her. I explained to her his condition and t he problem that he is having. Dictated By: TANA DUBOIS/GENOVEVA Conf#: [id number] DID#: [id number]
[2016-08-17] MEDS: metroNIDAZOLE 500 MG TAB GTB SCH (21:37)
[2016-08-18] VITALS (27 sets, daily range): BP systolic 93–126; BP diastolic 44–67; PULSE 69–83; RESP 21–29
[2016-08-18] MEDS: INSULIN ASPART [NOVOLOG] 3 ML PEN SC SCH ×6 (00:48→21:00)
[2016-08-18] MEDS: LANSOPRAZOLE 30 MG CAP GTB SCH (05:42)
[2016-08-18] MEDS: metroNIDAZOLE 500 MG TAB GTB SCH ×3 (05:42→21:12)
[2016-08-18 07:20] LABS: BASOPHILS % 0.5 % (0.0-2.0); EOSINOPHILS # 0.5 10^3/ul (0.0-0.5); EOSINOPHILS % 5.8 % (0.0-7.0); HEMATOCRIT 27.1 % (42.0-52.0); LYMPHOCYTES # 1.5 10^3/ul (0.8-2.9); MEAN CORPUSCULAR HGB CONC 33.3 g/dl (32.0-37.0); MEAN CORPUSCULAR VOLUME 87.1 fl (82.0-101.0); MEAN PLATELET VOLUME 9.2 fl (7.4-10.4); MONOCYTE # 0.6 10^3/ul (0.3-0.9); NEUTROPHIL # 6.3 10^3/ul (1.6-7.5); NEUTROPHILS % 69.7 % (39.0-77.0); PLATELET COUNT 229 10^3/UL (140-440); RED BLOOD COUNT 3.12 10^6/ul (4.70-6.10); RED CELL DISTRIBUTION WIDTH 17.7 % (11.5-14.5)
[2016-08-18 07:23] LABS: POTASSIUM 4.2 mmol/L (3.5-5.1)
[2016-08-18 07:26] LABS: CREATININE 1.28 mg/dl (0.61-1.24)
[2016-08-18 07:27] LABS: CALCIUM 7.6 mg/dl (8.4-10.2); MAGNESIUM 2.3 mg/dl (1.7-2.5)
[2016-08-18 07:33] LABS: ALBUMIN 2.6 g/dl (3.3-4.9); POTASSIUM 4.3 mmol/L (3.5-5.1)
[2016-08-18 07:35] LABS: BILIRUBIN,INDIRECT 0.1 mg/dl (0-1.1); BILIRUBIN,TOTAL 0.1 mg/dl (0.2-1.3); CREATININE 1.25 mg/dl (0.61-1.24)
[2016-08-18 07:36] LABS: ALBUMIN/GLOBULIN RATIO 0.76; CALCIUM 7.7 mg/dl (8.4-10.2)
[2016-08-18 07:44] LABS: CONDITION 1
[2016-08-18 07:45] LABS: LH ANALYZER COMMENTS 1
--- NOTE | 2016-08-18 08:48 | PN ---
DATE: 08/18/2016 SUBJECTIVE: The patient is subjectively stable, remains on bladder irrigation. The patient is note d to have less hematuria and his urine is clearing. No other acute events noted. No hemoptysis or hematemesis. OBJECTIVE: VITAL SIGNS: Blood pressure is 113/61, respirations 25, pulse 76, temperature 98.2. I's AND O'S: The patient had 2.9 liters in, 2.3 liters out. HEENT: Head is normocephalic. NECK: Supple. HEART: Regular rate. LUNGS: Showed diminished breath sounds at the base. ABDOMEN: Soft, nontender to palpation. No rebound or guarding. EXTREMITIES: Negative for clubbing or cyanosis. Trace edema. DERMATOLOGIC: No rashes. MUSCULOSKELETAL: Have no joint effusion. NEUROLOGIC: No change in exam. MEDICATIONS: The patient's medication were reviewed. LABORATORY DATA: Shows sodium 145, potassium 4.3, chloride 111, BUN 34, creatinine 1.25. White cou nt 9.0, hemoglobin 9.0, hematocrit 27.1, platelet count 229. ASSESSMENT AND PLAN: 1. Nonoliguric acute kidney injury on top of chronic kidney disease stage IIIB/IV, with a previous baseline creatinine of 1.5 mg/dL. Etiology of acute kidney injury is secondary to acute tubular ne crosis. The patient's renal function has been improving during the hospital course. Will continue the current treatment plan, supportive care, renally dose all meds, and continue gentle IV hydration . 2. Hypernatremia. The patient has a free water deficit of approximately 2 liters. Will increase f ree water flushes to 100 mL q.6h and monitor. 4. Gross hematuria. The patient is currently receiving continuous bladder irrigation. Will contin ue. Follow up with urologist, Dr. Miller. 5. Anemia secondary to gross hematuria. The patient is status post blood transfusion. Continue to monitor H and H levels. 6. Chronic respiratory failure, status post trach. Continue the current medical management and fol low up with pulmonary. 7. Dysphagia. Status post PEG. Continue tube feeding. 8. Chronic encephalopathy. Continue to monitor. 9. Hypertension. Continue the current blood pressure regimen. 10. Diabetes. Continue Accu-Cheks and insulin sliding scale. 11. History of cerebrovascular accident. 12. History of neurogenic bladder, with indwelling Ferreira. 13. Atrial fibrillation. Currently rate controlled. The patient is on an amiodarone drip. Will mo shaeor. Follow up with cardiology. 14. Gastrointestinal and deep venous thrombosis prophylaxis. Continue proton pump inhibitor and se quential leg squeezers. Dictated By: JOSÉ BIGGS/GENOVEVA Conf#: [id number] DID#: [id number]
--- NOTE | 2016-08-18 09:01 | RADRPT ---
PROCEDURE: XR Chest. CLINICAL INDICATION: Shortness of breath. TECHNIQUE: Single frontal view. COMPARISON: 08/15/2016. FINDINGS: The tracheostomy tube, low lung volumes, and bilateral air space disease, unchanged. The heart is enlarged. There is calcification in the aorta consistent with atherosclerosis. There is no pleural effusion. There is no pneumothorax. IMPRESSION: 1. No change from 08/15/2016. RPTAT: QQ .Alhaji Schultz MD, MD Date Time Electronically viewed and signed by .Alhaji Schultz MD, MD on 08/18/2016 09:01 .R/
[2016-08-18] MEDS: CHLORHEXIDINE GLUCONATE 15 ML UD CUP MM SCH ×2 (09:05→21:04)
[2016-08-18] MEDS: FERROUS SULFATE 60 MG/ML 5ML CUP GTB SCH (09:05)
[2016-08-18] MEDS: DILTIAZEM (CD) 120 MG CAP PO SCH (09:06)
--- NOTE | 2016-08-18 10:03 | PN ---
Date/Time of Note Date/Time of Note DATE: 08/18/16 TIME: 10:00 Assessment/Plan VTE Prophylaxis VTE Prophylaxis Intervention: SCD's Lines/Catheters IV Catheter Type (from Nrs): Peripheral IV Urinary Cath still in place: Yes Reason Cath still needed: urinary retention Assessment/Plan Chief Complaint/Hosp Course A/P: 76 M sent from [place] for: 1. Gross hematuria - infectious vs clotting disorder. Seen by renal and teams yesterday, on CBI with improvement - monitor, f/u rec'a. - CBI for now - monitor for acute changes, check urine cultures. 2. Trach dependent respiratory failure - pulm consult appreciated, - continue with supplemental oxygen 3. Dysphagia s/p peg - resume peg tube feeds 4. Essential hypertension - continue with current medications 5. Type II DM - continue with diabeta source, q6h POC glucose, ISS 6. Anemia of chronic disease - monitor H/H 7. COPD - prn breathing treatments 8. Dyslipidemia - continue with statin 9. C Diff Colitis - Flagyl -ID consult appreciated, cont Flagyl 10. DVT ppx - scds Critical care time spent with pt care today = 40 min. Problems: Subjective 24 Hr Interval Summary Free Text/Dictation Pt still on CBI, no acute events overnight. Received blood transfusion yesterday. Exam/Review of Systems Vital Signs Vitals Vital Signs Date Time Temp Pulse Resp B/P Pulse Ox O2 Delivery O2 Flow Rate FiO2 08/18/16 08:00 72 08/18/16 07:00 25 113/61 96 08/18/16 05:38 Aerosol 5.0 28 T Tube 08/18/16 04:00 98.2 Intake and Output 08/17/16 08/17/16 08/18/16 14:59 22:59 06:59 Intake Total 950 ml 1183.7 ml 833.6 ml Output Total 755 ml 670 ml 875 ml Balance 195 ml 513.7 ml -41.4 ml Exam Constitutional: NAD Respiratory: clear to auscultation Cardiovascular: regular rate and rhythm Gastrointestinal: soft, No distended Musculoskeletal: nl extremities to inspection Results Result Diagram: 08/18/16 0640 08/18/16 0640 Results 24 hrs Laboratory Tests Test 08/17/16 13:06 08/17/16 17:29 08/17/16 20:41 08/18/16 00:45 Bedside Glucose 175 168 155 125 Test 08/18/16 05:03 08/18/16 06:40 08/18/16 09:05 Bedside Glucose 124 143 Alanine Aminotransferase (ALT/SGPT) 22 Albumin 2.6 L Albumin/Globulin Ratio 0.76 Alkaline Phosphatase 52 Anion Gap 16 Aspartate Amino Transf (AST/SGOT) 42 # Basophils # 0.0 Basophils % 0.5 Blood Morphology Comment Blood Urea Nitrogen 34 H Calcium Level 7.7 L Carbon Dioxide Level 22 Chloride Level 111 H Creatinine 1.25 H Direct Bilirubin 0.00 Eosinophils # 0.5 Eosinophils % 5.8 Globulin 3.40 H Glucose Level 122 Hematocrit 27.1 #L Hemoglobin 9.0 #L Indirect Bilirubin 0.1 Lymphocytes # 1.5 Lymphocytes % 17.0 Magnesium Level 2.3 Mean Corpuscular Hemoglobin 29.0 Mean Corpuscular Hemoglobin Concent 33.3 Mean Corpuscular Volume 87.1 Mean Platelet Volume 9.2 Monocytes # 0.6 Monocytes % 7.0 Neutrophils # 6.3 Neutrophils % 69.7 Nucleated Red Blood Cells # 0.0 Nucleated Red Blood Cells % 0.0 Phosphorus Level 3.0 Platelet Count 229 Potassium Level 4.3 Red Blood Count 3.12 #L Red Cell Distribution Width 17.7 H Sodium Level 145 H Total Bilirubin 0.1 L Total Protein 6.0 L White Blood Count 9.0 Medications Medications Current Medications Sodium Chloride (NS) 1,000 ml @ 50 mls/hr Q20H IV Last administered on 20:00; Admin Dose 50 MLS/HR; Start 08/16/16 at 20:32 Ondansetron HCl (Zofran Inj) 4 mg Q6H PRN IV NAUSEA AND/OR VOMITING; Start at 21:00 Acetaminophen (Tylenol Supp) 650 mg Q4H PRN [place] PAIN LEVEL 1-3 OR FEVER; Start 08/16/16 at 21:00 Morphine Sulfate (morphine) 2 mg Q4H PRN IV PAIN LEVEL 7-10 Last administered on 08/17/16 12:09; Admin Dose 2 MG; Start 08/16/16 at 21:00 Lorazepam (Ativan) 1 mg Q2H PRN IV ANXIETY; Start 08/16/16 at 21:00 Bisacodyl (Dulcolax Supp) 10 mg DAILY PRN [place] CONSTIPATION; Start 08/16/16 at 21 :00 Insulin Aspart (Novolog Insulin Pen) NOVOLOG *MILD* ALGORI... Q4 SC Last administered on 08/18/16 09:10; Admin Dose 1 UNIT; Start 08/16/16 at 21:30 Chlorhexidine Gluconate (Peridex) 15 ml Q12 MM Last administered on 08/18/16 09:05; Admin Dose 15 ML; Start 08/16/16 at 21:00 Digoxin (Digoxin) 0.125 mg DAILY@13 GTB Last administered on 08/17/16 12:10; Admin Dose 0.125 MG; Start 08/17/16 at 13:00 Diltiazem HCl (Cardizem Cd) 120 mg DAILY PO Last administered on 08/18/16 09: 06; Admin Dose 120 MG; Start 08/17/16 at 09:00 Doxazosin Mesylate (Cardura) 4 mg HS GTB Last administered on 08/17/16 20:42; Admin Dose 4 MG; Start 08/16/16 at 22:00 Ferrous Sulfate (Feosol Liquid Cup) 300 mg DAILY GTB Last administered on 09:05; Admin Dose 300 MG; Start 08/17/16 at 09:00 Miscellaneous Information 1 ea NOTE XX ; Start 08/16/16 at 21:30 Glucose (Glutose) 15 gm Q15M PRN PO DECREASED GLUCOSE; Start 08/16/16 at 21:30 Glucose (Glutose) 22.5 gm Q15M PRN PO DECREASED GLUCOSE; Start 08/16/16 at 21: 30 Dextrose (D50w Syringe) 25 ml Q15M PRN IV DECREASED GLUCOSE; Start 08/16/16 at 21:30 Dextrose (D50w Syringe) 50 ml Q15M PRN IV DECREASED GLUCOSE; Start 08/16/16 at 21:30 Glucagon (Glucagen) 1 mg Q15M PRN IM DECREASED GLUCOSE; Start 08/16/16 at 21:30 Glucose 15 gm 15 gm Q15M PRN BUCCAL DECREASED GLUCOSE; Start 08/16/16 at 21:30 Amiodarone HCl/ Dextrose (Cordarone Iv/ D5W) 500 ml @ 0 mls/hr Q0M IV Last administered on 08/17/16 14:14; Admin Dose 33.4 MLS/HR; Start 08/17/16 at 13:00 ; Stop 08/18/16 at 12:59 Metronidazole (Flagyl) 500 mg Q8 GTB Last administered on 08/18/16 05:42; Admin Dose 500 MG; Start 08/17/16 at 22:00 Lansoprazole (Prevacid) 30 mg DAILY@06 GTB Last administered on 08/18/16 05:42 ; Admin Dose 30 MG; Start 08/18/16 at 06:00 CAROLINE BARRETT Aug 18, 2016 10:02
[2016-08-18 10:41] LABS: AADO2 Arterial 77.3 mmHg (7.0-24.0); Allen Test ACCEPTAB; Arterial Base Excess -3.6 mmol/L (-3.0-3); Arterial COHb 0.3 % (0.0-3.0); Arterial Fraction of Oxyhgb 95.9 % (93.0-99.0); Arterial HCO3 19.9 mmol/L (22.0-26.0); Arterial MetHb 0 % (0.0-1.5); Arterial Total Hemglobin 9.8 g/dl (12.0-18.0); MODE TRACH COLLAR
--- NOTE | 2016-08-18 10:55 | CONS ---
Date/Time of Note Date/Time of Note DATE: 08/18/16 TIME: 10:52 Consult Date/Type/Reason Admit Date/Time Aug 16, 2016 at 20:13 Initial Consult Date Type of Consultation: Pulmonary Subjective Patient remains stable on cool aerosol with no significant respiratory distress Continues continues bladder irrigation with resolution of hematuria Continues amiodarone drip being switched to p.o. Objective Vital Signs Date Time Temp Pulse Resp B/P Pulse Ox O2 Delivery O2 Flow Rate FiO2 08/18/16 09:00 75 22 111/62 97 08/18/16 05:38 Aerosol 5.0 28 T Tube 08/18/16 04:00 98.2 Intake and Output 08/17/16 08/17/16 08/18/16 15:00 23:00 07:00 Intake Total 950 ml 1200.4 ml 741.9 ml Output Total 830 ml 695 ml 775 ml Balance 120 ml 505.4 ml -33.1 ml PHYSICAL EXAMINATION: GENERAL: Elderly-appearing gentleman, intubated on mechanical ventilation. VITAL SIGNS: As above NECK: Trach site clean and intact. CARDIAC: S1, S2, no added sounds or murmurs. CHEST: Diminished air entry bilaterally. ABDOMEN: Soft, nontender. No guarding or rebound. EXTREMITIES: No cyanosis, clubbing or edema. NEUROLOGIC: Generalized weakness. Results/Medications Result Diagram: 08/18/16 0640 08/18/16 0640 Results 24 hrs Laboratory Tests Test 08/17/16 13:06 08/17/16 17:29 08/17/16 20:41 08/18/16 00:45 Bedside Glucose 175 168 155 125 Test 08/18/16 05:03 08/18/16 06:40 08/18/16 07:00 08/18/16 09:05 Bedside Glucose 124 143 Alanine Aminotransferase (ALT/SGPT) 22 Albumin 2.6 L Albumin/Globulin Ratio 0.76 Alkaline Phosphatase 52 Anion Gap 16 Aspartate Amino Transf (AST/SGOT) 42 # Basophils # 0.0 Basophils % 0.5 Blood Morphology Comment Blood Urea Nitrogen 34 H Calcium Level 7.7 L Carbon Dioxide Level 22 Chloride Level 111 H Creatinine 1.25 H Direct Bilirubin 0.00 Eosinophils # 0.5 Eosinophils % 5.8 Globulin 3.40 H Glucose Level 122 Hematocrit 27.1 #L Hemoglobin 9.0 #L Indirect Bilirubin 0.1 Lymphocytes # 1.5 Lymphocytes % 17.0 Magnesium Level 2.3 Mean Corpuscular Hemoglobin 29.0 Mean Corpuscular Hemoglobin Concent 33.3 Mean Corpuscular Volume 87.1 Mean Platelet Volume 9.2 Monocytes # 0.6 Monocytes % 7.0 Neutrophils # 6.3 Neutrophils % 69.7 Nucleated Red Blood Cells # 0.0 Nucleated Red Blood Cells % 0.0 Phosphorus Level 3.0 Platelet Count 229 Potassium Level 4.3 Red Blood Count 3.12 #L Red Cell Distribution Width 17.7 H Sodium Level 145 H Total Bilirubin 0.1 L Total Protein 6.0 L White Blood Count 9.0 Arterial Blood HCO3 19.9 L Arterial Blood Base Excess -3.6 L Arterial Blood Oxygen Saturation 96.2 Vinayak Test ACCEPTAB Arterial Blood Gas Puncture Site Right Radial Arterial Blood Carboxyhemoglobin 0.3 Arterial Blood Date Drawn 08/18/2016 8:06:29 AM Arterial Blood Methemoglobin 0 Arterial Blood pCO2 (Temp correct) 30.4 L Arterial Blood pH (Temp corrected) 7.433 Arterial Blood pO2 (Temp corrected) 86.5 Blood Gas A-a O2 Differential 77.3 H Blood Gas Modality TRACH COLLAR Blood Gas Notified Time 08/18/2016 8:24:35 AM Blood Gas Notified Whom TM Blood Gas Specimen Source Blood arterial Blood Gas Temperature 37.0 FiO2 28.0 Oxyhemoglobin Percent 95.9 Total Hemoglobin 9.8 L Medications Current Medications Sodium Chloride (NS) 1,000 ml @ 50 mls/hr Q20H IV Last administered on 20:00; Admin Dose 50 MLS/HR; Start 08/16/16 at 20:32 Ondansetron HCl (Zofran Inj) 4 mg Q6H PRN IV NAUSEA AND/OR VOMITING; Start at 21:00 Acetaminophen (Tylenol Supp) 650 mg Q4H PRN [place] PAIN LEVEL 1-3 OR FEVER; Start 08/16/16 at 21:00 Morphine Sulfate (morphine) 2 mg Q4H PRN IV PAIN LEVEL 7-10 Last administered on 08/17/16 12:09; Admin Dose 2 MG; Start 08/16/16 at 21:00 Lorazepam (Ativan) 1 mg Q2H PRN IV ANXIETY; Start 08/16/16 at 21:00 Bisacodyl (Dulcolax Supp) 10 mg DAILY PRN [place] CONSTIPATION; Start 08/16/16 at 21 :00 Insulin Aspart (Novolog Insulin Pen) NOVOLOG *MILD* ALGORI... Q4 SC Last administered on 08/18/16 09:10; Admin Dose 1 UNIT; Start 08/16/16 at 21:30 Chlorhexidine Gluconate (Peridex) 15 ml Q12 MM Last administered on 08/18/16 09:05; Admin Dose 15 ML; Start 08/16/16 at 21:00 Digoxin (Digoxin) 0.125 mg DAILY@13 GTB Last administered on 08/17/16 12:10; Admin Dose 0.125 MG; Start 08/17/16 at 13:00 Diltiazem HCl (Cardizem Cd) 120 mg DAILY PO Last administered on 08/18/16 09: 06; Admin Dose 120 MG; Start 08/17/16 at 09:00 Doxazosin Mesylate (Cardura) 4 mg HS GTB Last administered on 08/17/16 20:42; Admin Dose 4 MG; Start 08/16/16 at 22:00 Ferrous Sulfate (Feosol Liquid Cup) 300 mg DAILY GTB Last administered on 09:05; Admin Dose 300 MG; Start 08/17/16 at 09:00 Miscellaneous Information 1 ea NOTE XX ; Start 08/16/16 at 21:30 Glucose (Glutose) 15 gm Q15M PRN PO DECREASED GLUCOSE; Start 08/16/16 at 21:30 Glucose (Glutose) 22.5 gm Q15M PRN PO DECREASED GLUCOSE; Start 08/16/16 at 21: 30 Dextrose (D50w Syringe) 25 ml Q15M PRN IV DECREASED GLUCOSE; Start 08/16/16 at 21:30 Dextrose (D50w Syringe) 50 ml Q15M PRN IV DECREASED GLUCOSE; Start 08/16/16 at 21:30 Glucagon (Glucagen) 1 mg Q15M PRN IM DECREASED GLUCOSE; Start 08/16/16 at 21:30 Glucose 15 gm 15 gm Q15M PRN BUCCAL DECREASED GLUCOSE; Start 08/16/16 at 21:30 Amiodarone HCl/ Dextrose (Cordarone Iv/ D5W) 500 ml @ 0 mls/hr Q0M IV Last administered on 08/17/16 14:14; Admin Dose 33.4 MLS/HR; Start 08/17/16 at 13:00 ; Stop 08/18/16 at 12:59 Metronidazole (Flagyl) 500 mg Q8 GTB Last administered on 08/18/16 05:42; Admin Dose 500 MG; Start 08/17/16 at 22:00 Lansoprazole (Prevacid) 30 mg DAILY@06 GTB Last administered on 08/18/16 05:42 ; Admin Dose 30 MG; Start 08/18/16 at 06:00 Assessment/Plan Chief Complaint/Hosp Course IMPRESSION AND PLAN: 1. Chronic respiratory failure with tracheostomy. 2. Significant hematuria, pending further workup and recommendations. Resolving hematuria 3. Significant anemia, likely secondary to hematuria 4. Paroxysmal atrial fibrillation complicated by supraventricular tachycardia, now in normal sinus rhythm. PLAN: 1. Status post transfusion of packed red blood cells monitor H&H 2. Continue cool aerosol. 3. Tube feeding. 4. Urology recommendations. 5. DVT and GI prophylaxis. 6. Continue rate control per cardiology Disposition Transfer back to follow okay from pulmonary standpoint Problems: MUNIR DESHPANDE MD, [facility] Aug 18, 2016 10:55
--- NOTE | 2016-08-18 12:31 | PN ---
DATE: 08/18/2016 INFECTIOUS DISEASE PROGRESS NOTE SUBJECTIVE: No changes overnight. No fevers. The patient was started on amiodarone for rapid atri al fibrillation, currently rate controlled. He is lying comfortably in bed. WBC 9, no shift, no ba nds. BUN 34, creatinine 1.25. ANTIMICROBIALS: Flagyl per G-tube. INDWELLINGS: Trach, PEG, Ferreira. PHYSICAL EXAMINATION: GENERAL: This is a fragile, elderly man, who is awake, noncommunicative and in no distress. HEENT: Head atraumatic, normocephalic. Sclerae are anicteric. Buccal mucosa dry. NECK: Supple. Tracheostomy present. CHEST: Chest rise is symmetrical. Breath sounds diminished to the bases. HEART: S1, S2. ABDOMEN: Soft. Bowel tones present. EXTREMITIES: With trace edema. ASSESSMENT: 1. Gross hematuria, improving. The patient is getting continuous bladder irrigation and followed by urology. 2. Atrial fibrillation, rate controlled. Currently on amiodarone drip. 3. Resolving Clostridium difficile colitis. 4. Status post urinary tract infection. 5. Chronic respiratory failure. 6. Dysphagia. 7. Diabetes. Blood sugar below 180. PLAN: The patient remains stable. Continue the present care, antibiotics and amiodarone drip. Fo llow recommendation of specialists. Monitor H and H. Dictated By: ADITYA CALLAHAN TRACTOR DISTRIBUTOR for [employer] SCH[employer]ER/GENOVEVA Conf#: [id number] DID#: [id number]
[2016-08-18] MEDS: DIGOXIN 0.125 MG TAB GTB SCH (13:24)
--- NOTE | 2016-08-18 16:19 | PN ---
Date/Time of Note Date/Time of Note DATE: 08/18/16 TIME: 16:18 Assessment/Plan VTE Prophylaxis VTE Prophylaxis Intervention: SCD's Lines/Catheters IV Catheter Type (from Nrs): Peripheral IV Urinary Cath still in place: Yes Reason Cath still needed: urinary retention Assessment/Plan Assessment/Plan 1. Gross hematuria - infectious vs clotting disorder - bladder irrigation, continue with serial H/H, monitor for acute changes, check urine cultures. 2. Trach dependent respiratory failure - pulm care, continue with supplemental oxygen 4. Essential hypertension - continue with current medications 5. Type II DM - continue with diabeta source, q6h POC glucose, ISS 6. Anemia of chronic disease - monitor H/H 7. COPD - prn breathing treatments 8. Dyslipidemia - continue with statin 9. PAF > NSR - NO AC DUE TO HEMATURIA, off iv amiodarone > if recurrent afib, rx detention po amiodaorne 10. NSVT - REMAINS IN NSR 11. SVT - REMAINS IN NSR Subjective 24 Hr Interval Summary Free Text/Dictation The patient stable off amiodarone Exam/Review of Systems Vital Signs Vitals Vital Signs Date Time Temp Pulse Resp B/P Pulse Ox O2 Delivery O2 Flow Rate FiO2 08/18/16 14:00 74 21 102/57 97 Trach Collar 08/18/16 12:00 98.4 08/18/16 05:38 5.0 28 Intake and Output 08/17/16 08/17/16 08/18/16 15:00 23:00 07:00 Intake Total 950 ml 1200.4 ml 766.9 ml Output Total 830 ml 695 ml 2575 ml Balance 120 ml 505.4 ml -1808.1 ml Results Result Diagram: 08/18/16 0640 08/18/16 0640 Results 24 hrs Laboratory Tests Test 08/17/16 17:29 08/17/16 20:41 08/18/16 00:45 08/18/16 05:03 Bedside Glucose 168 155 125 124 Test 08/18/16 06:40 08/18/16 07:00 08/18/16 09:05 08/18/16 13:19 Alanine Aminotransferase (ALT/SGPT) 22 Albumin 2.6 L Albumin/Globulin Ratio 0.76 Alkaline Phosphatase 52 Anion Gap 16 Aspartate Amino Transf (AST/SGOT) 42 # Basophils # 0.0 Basophils % 0.5 Blood Morphology Comment Blood Urea Nitrogen 34 H Calcium Level 7.7 L Carbon Dioxide Level 22 Chloride Level 111 H Creatinine 1.25 H Direct Bilirubin 0.00 Eosinophils # 0.5 Eosinophils % 5.8 Globulin 3.40 H Glucose Level 122 Hematocrit 27.1 #L Hemoglobin 9.0 #L Indirect Bilirubin 0.1 Lymphocytes # 1.5 Lymphocytes % 17.0 Magnesium Level 2.3 Mean Corpuscular Hemoglobin 29.0 Mean Corpuscular Hemoglobin Concent 33.3 Mean Corpuscular Volume 87.1 Mean Platelet Volume 9.2 Monocytes # 0.6 Monocytes % 7.0 Neutrophils # 6.3 Neutrophils % 69.7 Nucleated Red Blood Cells # 0.0 Nucleated Red Blood Cells % 0.0 Phosphorus Level 3.0 Platelet Count 229 Potassium Level 4.3 Red Blood Count 3.12 #L Red Cell Distribution Width 17.7 H Sodium Level 145 H Total Bilirubin 0.1 L Total Protein 6.0 L White Blood Count 9.0 Arterial Blood HCO3 19.9 L Arterial Blood Base Excess -3.6 L Arterial Blood Oxygen Saturation 96.2 Vinayak Test ACCEPTAB Arterial Blood Gas Puncture Site Right Radial Arterial Blood Carboxyhemoglobin 0.3 Arterial Blood Date Drawn 08/18/2016 8:06:29 AM Arterial Blood Methemoglobin 0 Arterial Blood pCO2 (Temp correct) 30.4 L Arterial Blood pH (Temp corrected) 7.433 Arterial Blood pO2 (Temp corrected) 86.5 Blood Gas A-a O2 Differential 77.3 H Blood Gas Modality TRACH COLLAR Blood Gas Notified Time 08/18/2016 8:24:35 AM Blood Gas Notified Whom TM Blood Gas Specimen Source Blood arterial Blood Gas Temperature 37.0 FiO2 28.0 Oxyhemoglobin Percent 95.9 Total Hemoglobin 9.8 L Bedside Glucose 143 145 Medications Medications Current Medications Sodium Chloride (NS) 1,000 ml @ 50 mls/hr Q20H IV Last administered on t 20:00; Admin Dose 50 MLS/HR; Start 08/16/16 at 20:32 Ondansetron HCl (Zofran Inj) 4 mg Q6H PRN IV NAUSEA AND/OR VOMITING; Start at 21:00 Acetaminophen (Tylenol Supp) 650 mg Q4H PRN [place] PAIN LEVEL 1-3 OR FEVER; Start 08/16/16 at 21:00 Morphine Sulfate (morphine) 2 mg Q4H PRN IV PAIN LEVEL 7-10 Last administered on 08/17/16 12:09; Admin Dose 2 MG; Start 08/16/16 at 21:00 Lorazepam (Ativan) 1 mg Q2H PRN IV ANXIETY; Start 08/16/16 at 21:00 Bisacodyl (Dulcolax Supp) 10 mg DAILY PRN [place] CONSTIPATION; Start 08/16/16 at 21 :00 Insulin Aspart (Novolog Insulin Pen) NOVOLOG *MILD* ALGORI... Q4 SC Last administered on 08/18/16 13:24; Admin Dose 1 UNIT; Start 08/16/16 at 21:30 Chlorhexidine Gluconate (Peridex) 15 ml Q12 MM Last administered on 08/18/16 09:05; Admin Dose 15 ML; Start 08/16/16 at 21:00 Digoxin (Digoxin) 0.125 mg DAILY@13 GTB Last administered on 08/18/16 13:24; Admin Dose 0.125 MG; Start 08/17/16 at 13:00 Diltiazem HCl (Cardizem Cd) 120 mg DAILY PO Last administered on 08/18/16 09: 06; Admin Dose 120 MG; Start 08/17/16 at 09:00 Doxazosin Mesylate (Cardura) 4 mg HS GTB Last administered on 08/17/16 20:42; Admin Dose 4 MG; Start 08/16/16 at 22:00 Ferrous Sulfate (Feosol Liquid Cup) 300 mg DAILY GTB Last administered on 09:05; Admin Dose 300 MG; Start 08/17/16 at 09:00 Miscellaneous Information 1 ea NOTE XX ; Start 08/16/16 at 21:30 Glucose (Glutose) 15 gm Q15M PRN PO DECREASED GLUCOSE; Start 08/16/16 at 21:30 Glucose (Glutose) 22.5 gm Q15M PRN PO DECREASED GLUCOSE; Start 08/16/16 at 21: 30 Dextrose (D50w Syringe) 25 ml Q15M PRN IV DECREASED GLUCOSE; Start 08/16/16 at 21:30 Dextrose (D50w Syringe) 50 ml Q15M PRN IV DECREASED GLUCOSE; Start 08/16/16 at 21:30 Glucagon (Glucagen) 1 mg Q15M PRN IM DECREASED GLUCOSE; Start 08/16/16 at 21:30 Glucose (Glutose) 15 gm Q15M PRN BUCCAL DECREASED GLUCOSE; Start 08/16/16 at 21 :30 Metronidazole (Flagyl) 500 mg Q8 GTB Last administered on 08/18/16 13:29; Admin Dose 500 MG; Start 08/17/16 at 22:00 Lansoprazole (Prevacid) 30 mg DAILY@06 GTB Last administered on 08/18/16 05:42 ; Admin Dose 30 MG; Start 08/18/16 at 06:00 JORGE CAZARES MD Aug 18, 2016 16:19
[2016-08-18] MEDS: SOD CHLORIDE 0.9% 1,000 ML IV SCH (17:15)
[2016-08-18] MEDS: DOXAZOSIN 4 MG TAB GTB SCH (21:12)
[2016-08-19] VITALS (23 sets, daily range): BP systolic 103–142; BP diastolic 56–105; PULSE 80–115; RESP 19–28; Ht 167.6 cm; Wt 73.0 kg
[2016-08-19] MEDS: INSULIN ASPART [NOVOLOG] 3 ML PEN SC SCH ×6 (00:22→21:00)
[2016-08-19] MEDS: metroNIDAZOLE 500 MG TAB GTB SCH ×3 (05:43→21:51)
[2016-08-19] MEDS: LANSOPRAZOLE 30 MG CAP GTB SCH (05:43)
--- NOTE | 2016-08-19 05:47 | PN ---
DATE: 08/18/2016 SUBJECTIVE: Gross hematuria. Patient on continuous bladder irrigation. He does have a tracheostomy and is on a respirator and not able to express any symptoms himself. OBJECTIVE VITAL SIGNS: His temperature is 98.3. The blood pressure 121/65, pulse is 83, respiratory rate 29. ABDOMEN: At the time of my visit, it appears that it was a little tender in the suprapubic area. As I checked the irrigation, was going in very slowly and not coming out. Therefore, I had the nurse h and-irrigate the catheter and so it will drain better. She did and I checked it later on and it was pinkish color. LABORATORY DATA: His CBC shows a white count of 9.0, hemoglobin 9.0, hematocrit 27.1. BUN is 34, creatinine 1.25. Sodium 145, potassium 4.3, chloride 111, CO2 22. IMPRESSION: Gross hematuria. The patient still has blood-tinged urine with continuous bladder irri gation. The plan is to continue the bladder irrigation and keep him in the ICU until we know that t he irrigation is slow and is draining well and there is no risk of him actively bleeding again and g oing into clot retention as he did twice already this week. We will have to transfuse him if there is any need for blood transfusions. He already got transfused so far 2 units. Dictated By: TANA DUBOIS/GENOVEVA Conf#: [id number] DID#: [id number]
--- NOTE | 2016-08-19 07:27 | PN ---
Date/Time of Note Date/Time of Note DATE: 08/19/16 TIME: 07:23 Assessment/Plan VTE Prophylaxis VTE Prophylaxis Intervention: contraindicated Lines/Catheters [facility] Saline Lock Urinary Cath still in place: Yes (3-way CBI in progress) Reason Cath still needed: urinary retention Assessment/Plan Problems: (1) COPD (chronic obstructive pulmonary disease) Status: Chronic Comment: Patient has a tracheostomy and is breathing adequately. 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 Given his renal function will use metformin and I will place him on Tradjenta to help smooth out his sugars (5) Anemia in chronic kidney disease Status: Chronic Comment: Noted the hematuria is not assisting with this but will continue to observe he is on iron replacement (6) Chronic kidney disease, stage III (moderate) Status: Chronic Comment: His renal function has actually improved with stabilizing and supporting his status (7) Hematuria Status: Acute Comment: As per urology (8) Status post insertion of percutaneous endoscopic gastrostomy (PEG) tube Status: Chronic Comment: He is receiving his nutrition through this without incident (9) Tracheostomy status Status: Chronic Comment: Respiratory status at this time is stable Subjective 24 Hr Interval Summary Free Text/Dictation 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 Please note he is not on a ventilator but has a trach. Subjective hx not possible: pt non-verbal Respiratory: shortness of breath (Patient indicates yes to questions about shortness of breath mild) Cardiovascular: no complaints Gastrointestinal: no complaints Genitourinary: bleeding (Patient does not complain of the hematuria but given his overall status he cannot see it), no complaints Skin: no complaints Exam/Review of Systems Vital Signs Vitals Vital Signs Date Time Temp Pulse Resp B/P Pulse Ox O2 Delivery O2 Flow Rate FiO2 08/19/16 05:00 142/78 99 Trach Collar 08/19/16 04:30 86 21 08/19/16 04:00 98.6 08/19/16 01:52 5.0 28 Intake and Output 08/18/16 08/18/16 08/19/16 15:00 23:00 07:00 Intake Total 88281 ml 6700 ml 700 ml Output Total 51264 ml 8700 ml 3900 ml Balance 1800 ml -2000 ml -3200 ml Exam Constitutional: alert Neck: non-tender, supple Respiratory: crackles/rales Cardiovascular: nl pulses, regular rate and rhythm Gastrointestinal: nl liver, spleen, non-tender, soft Genitourinary - Male: other (Urine is still blood-tinged) Extremities: other (Bilateral upper extremity hand contractures) Skin: other (He has protective issues for heel DTI's there is no evidence of significant acute) Results Result Diagram: 08/18/16 0640 08/18/16 0640 Results 24 hrs Laboratory Tests Test 08/18/16 09:05 08/18/16 13:19 08/18/16 16:19 08/18/16 21:06 Bedside Glucose 143 145 140 99 Test 08/19/16 00:21 08/19/16 05:39 Bedside Glucose 103 91 Medications Medications Current Medications Sodium Chloride (NS) 1,000 ml @ 50 mls/hr Q20H IV Last administered on 17:15; Admin Dose 50 MLS/HR; Start 08/16/16 at 20:32 Ondansetron HCl (Zofran Inj) 4 mg Q6H PRN IV NAUSEA AND/OR VOMITING; Start at 21:00 Acetaminophen (Tylenol Supp) 650 mg Q4H PRN [place] PAIN LEVEL 1-3 OR FEVER; Start 08/16/16 at 21:00 Morphine Sulfate (morphine) 2 mg Q4H PRN IV PAIN LEVEL 7-10 Last administered on 08/17/16 12:09; Admin Dose 2 MG; Start 08/16/16 at 21:00 Lorazepam (Ativan) 1 mg Q2H PRN IV ANXIETY; Start 08/16/16 at 21:00 Bisacodyl (Dulcolax Supp) 10 mg DAILY PRN [place] CONSTIPATION; Start 08/16/16 at 21 :00 Insulin Aspart (Novolog Insulin Pen) NOVOLOG *MILD* ALGORI... Q4 SC Last administered on 08/18/16 13:24; Admin Dose 1 UNIT; Start 08/16/16 at 21:30 Chlorhexidine Gluconate (Peridex) 15 ml Q12 MM Last administered on 08/18/16 21:04; Admin Dose 15 ML; Start 08/16/16 at 21:00 Digoxin (Digoxin) 0.125 mg DAILY@13 GTB Last administered on 08/18/16 13:24; Admin Dose 0.125 MG; Start 08/17/16 at 13:00 Diltiazem HCl (Cardizem Cd) 120 mg DAILY PO Last administered on 08/18/16 09: 06; Admin Dose 120 MG; Start 08/17/16 at 09:00 Doxazosin Mesylate (Cardura) 4 mg HS GTB Last administered on 08/18/16 21:12; Admin Dose 4 MG; Start 08/16/16 at 22:00 Ferrous Sulfate (Feosol Liquid Cup) 300 mg DAILY GTB Last administered on 09:05; Admin Dose 300 MG; Start 08/17/16 at 09:00 Miscellaneous Information 1 ea NOTE XX ; Start 08/16/16 at 21:30 Glucose (Glutose) 15 gm Q15M PRN PO DECREASED GLUCOSE; Start 08/16/16 at 21:30 Glucose (Glutose) 22.5 gm Q15M PRN PO DECREASED GLUCOSE; Start 08/16/16 at 21: 30 Dextrose (D50w Syringe) 25 ml Q15M PRN IV DECREASED GLUCOSE; Start 08/16/16 at 21:30 Dextrose (D50w Syringe) 50 ml Q15M PRN IV DECREASED GLUCOSE; Start 08/16/16 at 21:30 Glucagon (Glucagen) 1 mg Q15M PRN IM DECREASED GLUCOSE; Start 08/16/16 at 21:30 Glucose (Glutose) 15 gm Q15M PRN BUCCAL DECREASED GLUCOSE; Start 08/16/16 at 21 :30 Metronidazole (Flagyl) 500 mg Q8 GTB Last administered on 08/19/16 05:43; Admin Dose 500 MG; Start 08/17/16 at 22:00 Lansoprazole (Prevacid) 30 mg DAILY@06 GTB Last administered on 08/19/16 05:43 ; Admin Dose 30 MG; Start 08/18/16 at 06:00 OTTONIEL SEBASTIAN MD Aug 19, 2016 07:27
[2016-08-19 08:07] LABS: ALBUMIN 2.7 g/dl (3.3-4.9); BASOPHILS % 0.5 % (0.0-2.0); EOSINOPHILS # 0.5 10^3/ul (0.0-0.5); EOSINOPHILS % 5.2 % (0.0-7.0); HEMATOCRIT 26.3 % (42.0-52.0); HEMOGLOBIN 9.1 g/dl (14.0-18.0); LYMPHOCYTES # 1.4 10^3/ul (0.8-2.9); LYMPHOCYTES % 14.6 % (15.0-51.0); MEAN CORPUSCULAR HEMOGLOBIN 29.2 pg (29.0-33.0); MEAN CORPUSCULAR HGB CONC 34.5 g/dl (32.0-37.0); MEAN CORPUSCULAR VOLUME 84.7 fl (82.0-101.0); MEAN PLATELET VOLUME 9.6 fl (7.4-10.4); MONOCYTE # 0.6 10^3/ul (0.3-0.9); MONOCYTES % 6.9 % (0.0-11.0); NEUTROPHIL # 6.8 10^3/ul (1.6-7.5); NEUTROPHILS % 72.8 % (39.0-77.0); PLATELET COUNT 264 10^3/UL (140-440); POTASSIUM 4.1 mmol/L (3.5-5.1); RED CELL DISTRIBUTION WIDTH 17.4 % (11.5-14.5); UNCORRECTED WBC 9.4 10^3/ul (4.8-10.8); WHITE BLOOD COUNT 9.4 10^3/ul (4.8-10.8)
[2016-08-19 08:09] LABS: CREATININE 1.1 mg/dl (0.61-1.24)
[2016-08-19 08:10] LABS: ALBUMIN/GLOBULIN RATIO 0.79; CALCIUM 7.8 mg/dl (8.4-10.2); TOTAL PROTEIN 6.1 g/dl (6.1-8.1)
[2016-08-19] MEDS: FERROUS SULFATE 60 MG/ML 5ML CUP GTB SCH (08:15)
[2016-08-19] MEDS: CHLORHEXIDINE GLUCONATE 15 ML UD CUP MM SCH ×2 (08:15→21:50)
[2016-08-19] MEDS: LINAGLIPTIN 5 MG TABLET PEG SCH (08:15)
[2016-08-19] MEDS: DILTIAZEM (CD) 120 MG CAP PO SCH (08:15)
[2016-08-19 08:17] LABS: CONDITION 1; LH ANALYZER COMMENTS 1
--- NOTE | 2016-08-19 08:21 | PN ---
Date/Time of Note Date/Time of Note DATE: 08/19/16 TIME: 08:20 Assessment/Plan VTE Prophylaxis VTE Prophylaxis Intervention: SCD's Lines/Catheters IV Catheter Type (from Nrsg): Saline Lock Central line still needed: No Urinary Cath still in place: Yes (3-way CBI in progress) Reason Cath still needed: urinary retention Assessment/Plan Assessment/Plan Assessment/Plan 1. Gross hematuria - infectious vs clotting disorder - s/p bladder irrigation, continue with serial H/H, monitor for acute changes 2. Trach dependent respiratory failure - pulm care, continue with supplemental oxygen 4. Essential hypertension - continue with current medications 5. Type II DM - continue with diabeta source, q6h POC glucose, ISS 6. Anemia of chronic disease - monitor H/H 7. COPD - prn breathing treatments 8. Dyslipidemia - continue with statin 9. PAF > NSR - NO AC DUE TO HEMATURIA, off iv amiodarone > if recurrent afib, rx mcfp po amiodaorne 10. NSVT - REMAINS IN NSR 11. SVT - REMAINS IN NSR Subjective 24 Hr Interval Summary Free Text/Dictation The patinet is stable with no afib Exam/Review of Systems Vital Signs Vitals Vital Signs Date Time Temp Pulse Resp B/P Pulse Ox O2 Delivery O2 Flow Rate FiO2 08/19/16 08:00 5.0 08/19/16 05:00 142/78 99 Trach Collar 08/19/16 04:30 86 21 08/19/16 04:00 98.6 08/19/16 01:52 28 Intake and Output 08/18/16 08/18/16 08/19/16 15:00 23:00 07:00 Intake Total 99440 ml 6700 ml 700 ml Output Total 56227 ml 8700 ml 3900 ml Balance 1800 ml -2000 ml -3200 ml Results Result Diagram: 08/19/16 0650 08/19/16 0650 Results 24 hrs Laboratory Tests Test 08/18/16 09:05 08/18/16 13:19 08/18/16 16:19 08/18/16 21:06 Bedside Glucose 143 145 140 99 Test 08/19/16 00:21 08/19/16 05:39 08/19/16 06:50 08/19/16 08:14 Bedside Glucose 103 91 99 Alanine Aminotransferase (ALT/SGPT) 24 Albumin 2.7 L Albumin/Globulin Ratio 0.79 Alkaline Phosphatase 53 Anion Gap 14 Aspartate Amino Transf (AST/SGOT) 30 Basophils # 0.0 Basophils % 0.5 Blood Morphology Comment Blood Urea Nitrogen 24 H Calcium Level 7.8 L Carbon Dioxide Level 22 Chloride Level 110 Creatinine 1.10 Direct Bilirubin 0.00 Eosinophils # 0.5 Eosinophils % 5.2 Globulin 3.40 H Glucose Level 87 Hematocrit 26.3 L Hemoglobin 9.1 L Indirect Bilirubin 0.0 Lymphocytes # 1.4 Lymphocytes % 14.6 L Mean Corpuscular Hemoglobin 29.2 Mean Corpuscular Hemoglobin Concent 34.5 Mean Corpuscular Volume 84.7 Mean Platelet Volume 9.6 Monocytes # 0.6 Monocytes % 6.9 Neutrophils # 6.8 Neutrophils % 72.8 Nucleated Red Blood Cells # 0.0 Nucleated Red Blood Cells % 0.0 Platelet Count 264 Potassium Level 4.1 Red Blood Count 3.10 L Red Cell Distribution Width 17.4 H Sodium Level 142 Total Bilirubin 0.0 L Total Protein 6.1 White Blood Count 9.4 Medications Medications Current Medications Sodium Chloride (NS) 1,000 ml @ 50 mls/hr Q20H IV Last administered on 17:15; Admin Dose 50 MLS/HR; Start 08/16/16 at 20:32 Ondansetron HCl (Zofran Inj) 4 mg Q6H PRN IV NAUSEA AND/OR VOMITING; Start at 21:00 Acetaminophen (Tylenol Supp) 650 mg Q4H PRN [place] PAIN LEVEL 1-3 OR FEVER; Start 08/16/16 at 21:00 Morphine Sulfate (morphine) 2 mg Q4H PRN IV PAIN LEVEL 7-10 Last administered on 08/17/16 12:09; Admin Dose 2 MG; Start 08/16/16 at 21:00 Lorazepam (Ativan) 1 mg Q2H PRN IV ANXIETY; Start 08/16/16 at 21:00 Bisacodyl (Dulcolax Supp) 10 mg DAILY PRN [place] CONSTIPATION; Start 08/16/16 at 21 :00 Insulin Aspart (Novolog Insulin Pen) NOVOLOG *MILD* ALGORI... Q4 SC Last administered on 08/18/16 13:24; Admin Dose 1 UNIT; Start 08/16/16 at 21:30 Chlorhexidine Gluconate (Peridex) 15 ml Q12 MM Last administered on 08/19/16 08:15; Admin Dose 15 ML; Start 08/16/16 at 21:00 Digoxin (Digoxin) 0.125 mg DAILY@13 GTB Last administered on 08/18/16 13:24; Admin Dose 0.125 MG; Start 08/17/16 at 13:00 Diltiazem HCl (Cardizem Cd) 120 mg DAILY PO Last administered on 08/19/16 08: 15; Admin Dose 120 MG; Start 08/17/16 at 09:00 Doxazosin Mesylate (Cardura) 4 mg HS GTB Last administered on 08/18/16 21:12; Admin Dose 4 MG; Start 08/16/16 at 22:00 Ferrous Sulfate (Feosol Liquid Cup) 300 mg DAILY GTB Last administered on 08:15; Admin Dose 300 MG; Start 08/17/16 at 09:00 Miscellaneous Information 1 ea NOTE XX ; Start 08/16/16 at 21:30 Glucose (Glutose) 15 gm Q15M PRN PO DECREASED GLUCOSE; Start 08/16/16 at 21:30 Glucose (Glutose) 22.5 gm Q15M PRN PO DECREASED GLUCOSE; Start 08/16/16 at 21: 30 Dextrose (D50w Syringe) 25 ml Q15M PRN IV DECREASED GLUCOSE; Start 08/16/16 at 21:30 Dextrose (D50w Syringe) 50 ml Q15M PRN IV DECREASED GLUCOSE; Start 08/16/16 at 21:30 Glucagon (Glucagen) 1 mg Q15M PRN IM DECREASED GLUCOSE; Start 08/16/16 at 21:30 Glucose (Glutose) 15 gm Q15M PRN BUCCAL DECREASED GLUCOSE; Start 08/16/16 at 21 :30 Metronidazole (Flagyl) 500 mg Q8 GTB Last administered on 08/19/16 05:43; Admin Dose 500 MG; Start 08/17/16 at 22:00 Lansoprazole (Prevacid) 30 mg DAILY@06 GTB Last administered on 08/19/16 05:43 ; Admin Dose 30 MG; Start 08/18/16 at 06:00 Linagliptin 5 mg 5 mg DAILY PEG Last administered on 08/19/16 08:15; Admin Dose 5 MG; Start 08/19/16 at 09:00 Ferric Sodium Gluconate Complex/ Sodium Chloride (Ferrlecit/NS) 110 ml @ 100 mls/hr ONCE ONCE IVPB ; Start 08/19/16 at 08:30; Stop 08/19/16 at 09:35 JORGE CAZARES MD Aug 19, 2016 08:21
[2016-08-19] MEDS ORDERED: SOD FERRIC GLUC COMPLX 125 MG in SOD CHLORIDE 0.9% 100 ML IVPB ONE (08:30)
--- NOTE | 2016-08-19 09:56 | CONS ---
Date/Time of Note Date/Time of Note DATE: 08/19/16 TIME: 09:54 Assessment/Plan Assessment/Plan Chief Complaint/Hosp Course ID PROGRESS NOTE TOTAL ABX DAY =>FLAGYL GT 24H INTERVAL SUMMARY * Lethargic, VSS, NAD, Trach-> T-piece without dyspnea, (+)Hematuria on CBI * Chart reviewed. PHYSICAL EXAMINATION: GENERAL: 76 yo lethargic HEENT: Unremarkable NECK: Trach secure w/T-Piece CHEST: Equal chest rise bilaterally HEART: Pulse RRR ABDOMEN: Soft EXTREMITIES: Warm SKIN: See photos ID ASSESSMENT: 76 yo M with chronic Trach admit with: 1. Gross hematuria, improving. The patient is getting continuous bladder irrigation and followed by urology. * s/p polymicrobial UTI 07/31/16: (+)STREP x2 species + PSAR -> s/p ABX w/repeat Urine cx (-) 2. Atrial fibrillation, rate controlled. Currently on amiodarone drip. 3. Resolving Clostridium difficile colitis. 4. Status post urinary tract infection. 5. Chronic respiratory failure. 6. Dysphagia. 7. Diabetes 8. SIRS on admission with low grade temp 99.6, resolved 9. Acute kidney injury/CKD (-)MRSA Nares (+)VRE stool colonization INVASIVES: ABX ALLERGY: KNDA CURRENT ABX: Flagy GT ID RECOMMENDATIONS: 1. No evidence of recurrent urosepsis 2. Avoid renal toxic ABX 3. Flagyl continues for (+)C.Diff toxin @ [place] . Problems: Consultation Date/Type/Reason Admit Date/Time Aug 16, 2016 at 20:13 Initial Consult Date Type of Consultation: ID Exam/Review of Systems Vital Signs Vitals Vital Signs Date Time Temp Pulse Resp B/P Pulse Ox O2 Delivery O2 Flow Rate FiO2 08/19/16 09:00 87 26 119/66 97 Trach Collar 08/19/16 08:00 5.0 08/19/16 07:00 98.7 08/19/16 01:52 28 Intake and Output 08/18/16 08/18/16 08/19/16 15:00 23:00 07:00 Intake Total 22517 ml 6700 ml 700 ml Output Total 64834 ml 8700 ml 3900 ml Balance 1800 ml -2000 ml -3200 ml Results Result Diagram: 08/19/16 0650 08/19/16 0650 Results 24 hrs Laboratory Tests Test 08/18/16 13:19 08/18/16 16:19 08/18/16 21:06 08/19/16 00:21 Bedside Glucose 145 140 99 103 Test 08/19/16 05:39 08/19/16 06:50 08/19/16 08:14 Bedside Glucose 91 99 Alanine Aminotransferase (ALT/SGPT) 24 Albumin 2.7 L Albumin/Globulin Ratio 0.79 Alkaline Phosphatase 53 Anion Gap 14 Aspartate Amino Transf (AST/SGOT) 30 Basophils # 0.0 Basophils % 0.5 Blood Morphology Comment Blood Urea Nitrogen 24 H Calcium Level 7.8 L Carbon Dioxide Level 22 Chloride Level 110 Creatinine 1.10 Direct Bilirubin 0.00 Eosinophils # 0.5 Eosinophils % 5.2 Globulin 3.40 H Glucose Level 87 Hematocrit 26.3 L Hemoglobin 9.1 L Indirect Bilirubin 0.0 Lymphocytes # 1.4 Lymphocytes % 14.6 L Mean Corpuscular Hemoglobin 29.2 Mean Corpuscular Hemoglobin Concent 34.5 Mean Corpuscular Volume 84.7 Mean Platelet Volume 9.6 Monocytes # 0.6 Monocytes % 6.9 Neutrophils # 6.8 Neutrophils % 72.8 Nucleated Red Blood Cells # 0.0 Nucleated Red Blood Cells % 0.0 Platelet Count 264 Potassium Level 4.1 Red Blood Count 3.10 L Red Cell Distribution Width 17.4 H Sodium Level 142 Thyroid Stimulating Hormone (TSH) 1.250 Total Bilirubin 0.0 L Total Protein 6.1 White Blood Count 9.4 Medications Medications Current Medications Sodium Chloride (NS) 1,000 ml @ 50 mls/hr Q20H IV Last administered on 17:15; Admin Dose 50 MLS/HR; Start 08/16/16 at 20:32 Ondansetron HCl (Zofran Inj) 4 mg Q6H PRN IV NAUSEA AND/OR VOMITING; Start at 21:00 Acetaminophen (Tylenol Supp) 650 mg Q4H PRN [place] PAIN LEVEL 1-3 OR FEVER; Start 08/16/16 at 21:00 Morphine Sulfate (morphine) 2 mg Q4H PRN IV PAIN LEVEL 7-10 Last administered on 08/17/16 12:09; Admin Dose 2 MG; Start 08/16/16 at 21:00 Lorazepam (Ativan) 1 mg Q2H PRN IV ANXIETY; Start 08/16/16 at 21:00 Bisacodyl (Dulcolax Supp) 10 mg DAILY PRN [place] CONSTIPATION; Start 08/16/16 at 21 :00 Insulin Aspart (Novolog Insulin Pen) NOVOLOG *MILD* ALGORI... Q4 SC Last administered on 08/18/16 13:24; Admin Dose 1 UNIT; Start 08/16/16 at 21:30 Chlorhexidine Gluconate (Peridex) 15 ml Q12 MM Last administered on 08/19/16 08:15; Admin Dose 15 ML; Start 08/16/16 at 21:00 Digoxin (Digoxin) 0.125 mg DAILY@13 GTB Last administered on 08/18/16 13:24; Admin Dose 0.125 MG; Start 08/17/16 at 13:00 Diltiazem HCl (Cardizem Cd) 120 mg DAILY PO Last administered on 08/19/16 08: 15; Admin Dose 120 MG; Start 08/17/16 at 09:00 Doxazosin Mesylate (Cardura) 4 mg HS GTB Last administered on 08/18/16 21:12; Admin Dose 4 MG; Start 08/16/16 at 22:00 Ferrous Sulfate (Feosol Liquid Cup) 300 mg DAILY GTB Last administered on 08:15; Admin Dose 300 MG; Start 08/17/16 at 09:00 Miscellaneous Information 1 ea NOTE XX ; Start 08/16/16 at 21:30 Glucose (Glutose) 15 gm Q15M PRN PO DECREASED GLUCOSE; Start 08/16/16 at 21:30 Glucose (Glutose) 22.5 gm Q15M PRN PO DECREASED GLUCOSE; Start 08/16/16 at 21: 30 Dextrose (D50w Syringe) 25 ml Q15M PRN IV DECREASED GLUCOSE; Start 08/16/16 at 21:30 Dextrose (D50w Syringe) 50 ml Q15M PRN IV DECREASED GLUCOSE; Start 08/16/16 at 21:30 Glucagon (Glucagen) 1 mg Q15M PRN IM DECREASED GLUCOSE; Start 08/16/16 at 21:30 Glucose (Glutose) 15 gm Q15M PRN BUCCAL DECREASED GLUCOSE; Start 08/16/16 at 21 :30 Metronidazole (Flagyl) 500 mg Q8 GTB Last administered on 08/19/16 05:43; Admin Dose 500 MG; Start 08/17/16 at 22:00 Lansoprazole (Prevacid) 30 mg DAILY@06 GTB Last administered on 08/19/16 05:43 ; Admin Dose 30 MG; Start 08/18/16 at 06:00 Linagliptin (Tradjenta) 5 mg DAILY PEG Last administered on 08/19/16 08:15; Admin Dose 5 MG; Start 08/19/16 at 09:00 ANTON PORTILLO NP Aug 19, 2016 09:56
--- NOTE | 2016-08-19 09:57 | PN ---
DATE: 08/19/2016 SUBJECTIVE: The patient remains stable. The patient remains on bladder irrigation continuously. T he patient continues to have hematuria, although clearing. The urine is more blood-tinged. No other acute events noted. No hemoptysis, hematemesis or hematochezia. OBJECTIVE: VITAL SIGNS: Blood pressure is 142/78, respirations 21, pulse 86, temperature 98.6. HEENT: Head is normocephalic. NECK: Shows trach. HEART: Regular rate. LUNGS: Showed diminished breath sounds at the base. ABDOMEN: Soft, nontender to palpation. No rebound or guarding. EXTREMITIES: Negative for clubbing or cyanosis. No edema. DERMATOLOGIC: No rashes. MUSCULOSKELETAL: Have no joint effusion. NEUROLOGIC: No change in exam. GENITOURINARY: Positive Ferreira catheter. LABORATORY DATA: Currently pending. Chest x-ray 08/18/2016 shows no significant change. Bilateral air space disease. ASSESSMENT AND PLAN: 1. Nonoliguric acute kidney injury on top of chronic kidney disease stage IIIB/IV, with a previous baseline creatinine of 1.5 mg/dL. Etiology of acute kidney injury is secondary to acute tubular nec rosis. Renal function has been improving. Continue the current treatment plan, supportive care, re jozef dose, avoid nephrotoxins. 2. Hypernatremia. The patient is on free water flushes, 20 mL q.6h. Will follow up sodium level a nd monitor. 3. Gross hematuria. Improving. The patient is on continuous bladder irrigation. Follow up with [facility]. 4. Anemia. Continue to monitor H and H levels. Transfuse as needed. 5. Chronic respiratory failure. Status post trach. Continue the current medical management. 6. Dysphagia. Status post PEG. Continue tube feeding. 7. Chronic encephalopathy. No change. 8. Hypertension. Continue the current blood pressure regimen. 9. Diabetes. Continue Accu-Cheks and insulin sliding scale. 10. History of cerebrovascular accident. 11. Neurogenic bladder, with indwelling Ferreira. 12. Atrial fibrillation, rate controlled. The patient is currently rate controlled. Patient is on diltiazem, status post amiodarone drip. 13. Gastrointestinal and deep venous thrombosis prophylaxis. Continue proton pump inhibitor and se quential leg squeezers. 14. Clostridium difficile. The patient is on Flagyl. Continue. Dictated By: JOSÉ BIGGS/GENOVEVA Conf#: [id number] DID#: [id number]
[2016-08-19] MEDS: DIGOXIN 0.125 MG TAB GTB SCH (12:36)
[2016-08-19] MEDS: SOD CHLORIDE 0.9% 1,000 ML IV SCH (14:00)
--- NOTE | 2016-08-19 14:33 | CONS ---
Date/Time of Note Date/Time of Note DATE: 08/19/16 TIME: 14:32 Consult Date/Type/Reason Admit Date/Time Aug 16, 2016 at 20:13 Initial Consult Date Type of Consultation: pulm Subjective tolerating trach collar Objective Vital Signs Date Time Temp Pulse Resp B/P Pulse Ox O2 Delivery O2 Flow Rate FiO2 08/19/16 12:00 83 08/19/16 12:00 98.6 27 107/60 96 Trach Collar 08/19/16 08:00 5.0 08/19/16 01:52 28 Intake and Output 08/18/16 08/18/16 08/19/16 15:00 23:00 07:00 Intake Total 91362 ml 6700 ml 800 ml Output Total 13062 ml 8700 ml 4400 ml Balance 1800 ml -2000 ml -3600 ml NECK: Trach site clean and intact. CARDIAC: S1, S2, no added sounds or murmurs. CHEST: Diminished air entry bilaterally. ABDOMEN: Soft, nontender. No guarding or rebound. EXTREMITIES: No cyanosis, clubbing or edema. Results/Medications Result Diagram: 08/19/16 0650 08/19/16 0650 Results 24 hrs Laboratory Tests Test 08/18/16 16:19 08/18/16 21:06 08/19/16 00:21 08/19/16 05:39 Bedside Glucose 140 99 103 91 Test 08/19/16 06:50 08/19/16 08:14 08/19/16 12:24 Alanine Aminotransferase (ALT/SGPT) 24 Albumin 2.7 L Albumin/Globulin Ratio 0.79 Alkaline Phosphatase 53 Anion Gap 14 Aspartate Amino Transf (AST/SGOT) 30 Basophils # 0.0 Basophils % 0.5 Blood Morphology Comment Blood Urea Nitrogen 24 H Calcium Level 7.8 L Carbon Dioxide Level 22 Chloride Level 110 Creatinine 1.10 Direct Bilirubin 0.00 Eosinophils # 0.5 Eosinophils % 5.2 Globulin 3.40 H Glucose Level 87 Hematocrit 26.3 L Hemoglobin 9.1 L Indirect Bilirubin 0.0 Lymphocytes # 1.4 Lymphocytes % 14.6 L Mean Corpuscular Hemoglobin 29.2 Mean Corpuscular Hemoglobin Concent 34.5 Mean Corpuscular Volume 84.7 Mean Platelet Volume 9.6 Monocytes # 0.6 Monocytes % 6.9 Neutrophils # 6.8 Neutrophils % 72.8 Nucleated Red Blood Cells # 0.0 Nucleated Red Blood Cells % 0.0 Platelet Count 264 Potassium Level 4.1 Red Blood Count 3.10 L Red Cell Distribution Width 17.4 H Sodium Level 142 Thyroid Stimulating Hormone (TSH) 1.250 Total Bilirubin 0.0 L Total Protein 6.1 White Blood Count 9.4 Bedside Glucose 99 113 Medications Current Medications Sodium Chloride (NS) 1,000 ml @ 50 mls/hr Q20H IV Last administered on 17:15; Admin Dose 50 MLS/HR; Start 08/16/16 at 20:32 Ondansetron HCl (Zofran Inj) 4 mg Q6H PRN IV NAUSEA AND/OR VOMITING; Start at 21:00 Acetaminophen (Tylenol Supp) 650 mg Q4H PRN [place] PAIN LEVEL 1-3 OR FEVER; Start 08/16/16 at 21:00 Morphine Sulfate (morphine) 2 mg Q4H PRN IV PAIN LEVEL 7-10 Last administered on 08/17/16 12:09; Admin Dose 2 MG; Start 08/16/16 at 21:00 Lorazepam (Ativan) 1 mg Q2H PRN IV ANXIETY; Start 08/16/16 at 21:00 Bisacodyl (Dulcolax Supp) 10 mg DAILY PRN [place] CONSTIPATION; Start 08/16/16 at 21 :00 Insulin Aspart (Novolog Insulin Pen) NOVOLOG *MILD* ALGORI... Q4 SC Last administered on 08/18/16 13:24; Admin Dose 1 UNIT; Start 08/16/16 at 21:30 Chlorhexidine Gluconate (Peridex) 15 ml Q12 MM Last administered on 08/19/16 08:15; Admin Dose 15 ML; Start 08/16/16 at 21:00 Digoxin (Digoxin) 0.125 mg DAILY@13 GTB Last administered on 08/19/16 12:36; Admin Dose 0.125 MG; Start 08/17/16 at 13:00 Diltiazem HCl (Cardizem Cd) 120 mg DAILY PO Last administered on 08/19/16 08: 15; Admin Dose 120 MG; Start 08/17/16 at 09:00 Doxazosin Mesylate (Cardura) 4 mg HS GTB Last administered on 08/18/16 21:12; Admin Dose 4 MG; Start 08/16/16 at 22:00 Ferrous Sulfate (Feosol Liquid Cup) 300 mg DAILY GTB Last administered on 08:15; Admin Dose 300 MG; Start 08/17/16 at 09:00 Miscellaneous Information 1 ea NOTE XX ; Start 08/16/16 at 21:30 Glucose (Glutose) 15 gm Q15M PRN PO DECREASED GLUCOSE; Start 08/16/16 at 21:30 Glucose (Glutose) 22.5 gm Q15M PRN PO DECREASED GLUCOSE; Start 08/16/16 at 21: 30 Dextrose (D50w Syringe) 25 ml Q15M PRN IV DECREASED GLUCOSE; Start 08/16/16 at 21:30 Dextrose (D50w Syringe) 50 ml Q15M PRN IV DECREASED GLUCOSE; Start 08/16/16 at 21:30 Glucagon (Glucagen) 1 mg Q15M PRN IM DECREASED GLUCOSE; Start 08/16/16 at 21:30 Glucose (Glutose) 15 gm Q15M PRN BUCCAL DECREASED GLUCOSE; Start 08/16/16 at 21 :30 Metronidazole (Flagyl) 500 mg Q8 GTB Last administered on 08/19/16 05:43; Admin Dose 500 MG; Start 08/17/16 at 22:00 Lansoprazole (Prevacid) 30 mg DAILY@06 GTB Last administered on 08/19/16 05:43 ; Admin Dose 30 MG; Start 08/18/16 at 06:00 Linagliptin (Tradjenta) 5 mg DAILY PEG Last administered on 08/19/16 08:15; Admin Dose 5 MG; Start 08/19/16 at 09:00 Assessment/Plan Additional Assessment/Plan IMPRESSION: 1. Chronic respiratory failure with tracheostomy. 2. Significant hematuria, pending further workup and recommendations. Resolving hematuria 3. Significant anemia, likely secondary to hematuria 4. Paroxysmal atrial fibrillation complicated by supraventricular tachycardia, now in normal sinus rhythm. PLAN: 1. Status post transfusion of packed red blood cells monitor H&H 2. Continue cool aerosol. 3. Tube feeding. 4. Speech therapy MARI Menezes MD Aug 19, 2016 14:33
--- NOTE | 2016-08-19 20:22 | PN ---
DATE: 08/19/2016 SUBJECTIVE: Gross hematuria. The patient has an indwelling catheter and continuous bladder irrigat ion. He needs the irrigation to run in fast because he bleeds, and when he bleeds he goes very fast into clot retention. OBJECTIVE: VITAL SIGNS: Temperature is 98.6, blood pressure 107/60, respirations is 27, pulse is 82. ABDOMEN: Soft. GENITOURINARY: The bladder does not seem to be distended now. I hand irrigated the catheter, and i t irrigates reasonably well. I tried too; however, run the irrigation faster, it would not because the pole that it hangs is not too high, so we had to change it to a higher pole, and that sped it up a little bit more. LABORATORY DATA: His last CBC shows a white count of 9.4, hemoglobin 9.1, hematocrit 26.3. BUN is 24, creatinine 1. Electrolytes are normal. The patient did receive 2 units of blood since he was t ransferred to the ICU. IMPRESSION: Gross hematuria, most likely from infection, and the patient needs continuous bladder i rrigation, and we shall continue that. He is to remain in the ICU unless the urine is clear and it is running not fast, so if he does go to the floor, there will not be any problem with the bleeding to where he will need to be hand irrigated, and hopefully he does not have to go back to ICU after t hat. Dictated By: TANA DUBOIS/GENOVEVA Conf#: [id number] DID#: [id number]
[2016-08-19] MEDS: DOXAZOSIN 4 MG TAB GTB SCH (21:56)
[2016-08-20] VITALS (12 sets, daily range): BP systolic 109–131; BP diastolic 53–72; PULSE 75–100; RESP 18–34
[2016-08-20] MEDS: INSULIN ASPART [NOVOLOG] 3 ML PEN SC SCH ×6 (01:00→20:32)
[2016-08-20] MEDS: metroNIDAZOLE 500 MG TAB GTB SCH ×3 (05:40→21:44)
[2016-08-20] MEDS: LANSOPRAZOLE 30 MG CAP GTB SCH (05:40)
[2016-08-20 06:44] LABS: ALBUMIN 2.6 g/dl (3.3-4.9); BASOPHILS % 0.4 % (0.0-2.0); EOSINOPHILS # 0.5 10^3/ul (0.0-0.5); EOSINOPHILS % 5.2 % (0.0-7.0); HEMATOCRIT 28.3 % (42.0-52.0); HEMOGLOBIN 9.6 g/dl (14.0-18.0); LYMPHOCYTES # 1.5 10^3/ul (0.8-2.9); LYMPHOCYTES % 16.9 % (15.0-51.0); MEAN CORPUSCULAR HEMOGLOBIN 28.9 pg (29.0-33.0); MEAN CORPUSCULAR HGB CONC 33.9 g/dl (32.0-37.0); MEAN CORPUSCULAR VOLUME 85.3 fl (82.0-101.0); MONOCYTE # 0.7 10^3/ul (0.3-0.9); MONOCYTES % 7.6 % (0.0-11.0); NEUTROPHIL # 6.4 10^3/ul (1.6-7.5); NEUTROPHILS % 69.9 % (39.0-77.0); PLATELET COUNT 291 10^3/UL (140-440); POTASSIUM 3.8 mmol/L (3.5-5.1); RED BLOOD COUNT 3.32 10^6/ul (4.70-6.10); RED CELL DISTRIBUTION WIDTH 17.5 % (11.5-14.5); UNCORRECTED WBC 9.1 10^3/ul (4.8-10.8); WHITE BLOOD COUNT 9.1 10^3/ul (4.8-10.8)
[2016-08-20 06:46] LABS: CREATININE 1.05 mg/dl (0.61-1.24)
[2016-08-20 06:47] LABS: ALBUMIN/GLOBULIN RATIO 0.7; BILIRUBIN,INDIRECT 0.1 mg/dl (0-1.1); BILIRUBIN,TOTAL 0.1 mg/dl (0.2-1.3); TOTAL PROTEIN 6.3 g/dl (6.1-8.1)
[2016-08-20 06:48] LABS: CALCIUM 8.2 mg/dl (8.4-10.2)
[2016-08-20 06:50] LABS: CONDITION 1; LH ANALYZER COMMENTS 1
[2016-08-20 07:11] LABS: MAGNESIUM 1.7 mg/dl (1.7-2.5); PHOSPHORUS 2.7 mg/dl (2.5-4.9)
[2016-08-20] MEDS: FERROUS SULFATE 60 MG/ML 5ML CUP GTB SCH (09:27)
[2016-08-20] MEDS: CHLORHEXIDINE GLUCONATE 15 ML UD CUP MM SCH ×2 (09:27→20:29)
[2016-08-20] MEDS: LINAGLIPTIN 5 MG TABLET PEG SCH (09:34)
--- NOTE | 2016-08-20 10:02 | PN ---
Date/Time of Note Date/Time of Note DATE: 08/20/16 TIME: 09:59 Assessment/Plan VTE Prophylaxis VTE Prophylaxis Intervention: LMWH Lines/Catheters IV [facility]ter [facility]from [facility]): Peripheral IV Urinary Cath still in place: Yes Reason Cath still needed: urinary retention Assessment/Plan Problems: (1) COPD (chronic obstructive pulmonary disease) Status: Chronic Comment: His breathing is stabilized and is doing well on his current treatment regimen. He is approaching a time where he could return to [place] as indicated. Still waiting on full resolution of the hematuria. Qualifiers: COPD type: unspecified COPD Qualified Code: J44.9 - Chronic obstructive pulmonary disease, unspecified COPD type (2) Status post cerebrovascular accident Status: Chronic Comment: Noted with a primary effect being in the right upper extremity and right side no new event (3) Paroxysmal atrial fibrillation with rapid ventricular response Status: Chronic Comment: He is on amiodarone as well as other medications he is rate controlled. Can look at transitioning him over to medicines via his feeding tube (4) Hematuria Status: Acute Comment: Remains on a irrigation (5) Neurogenic bladder Status: Chronic Comment: Noted will need long-term drainage (6) Chronic kidney disease, stage III (moderate) Status: Chronic Comment: Stable and not worsening and in fact improved somewhat (7) Diabetes mellitus type 2 in nonobese Status: Chronic Comment: Good control Subjective 24 Hr Interval Summary Free Text/Dictation Patient is now stable in telemetry unit. He reports he is feeling a little bit less short of breath than yesterday. Respiratory: no complaints Exam/Review of Systems Vital Signs Vitals Vital Signs Date Time Temp Pulse Resp B/P Pulse Ox O2 Delivery O2 Flow Rate FiO2 08/20/16 08:14 97 08/20/16 07:38 98.1 19 131/72 95 08/20/16 04:00 Trach Collar 08/19/16 20:00 5.0 08/19/16 19:27 28 Intake and Output 08/19/16 08/19/16 08/20/16 15:00 23:00 07:00 Intake Total 5800 ml 38225 ml 91935 ml Output Total 6775 ml 66171 ml 67927 ml Balance -975 ml -5050 ml 2900 ml Exam Constitutional: alert Respiratory: clear to auscultation, normal air movement Cardiovascular: nl pulses, regular rate and rhythm Results Result Diagram: 08/20/16 0555 08/20/16 0555 Results 24 hrs Laboratory Tests Test 08/19/16 12:24 08/19/16 17:54 08/19/16 21:57 08/20/16 00:41 Bedside Glucose 113 106 84 87 Test 08/20/16 04:27 08/20/16 05:55 08/20/16 06:07 08/20/16 09:30 Bedside Glucose 90 102 Alanine Aminotransferase (ALT/SGPT) 24 Albumin 2.6 L Albumin/Globulin Ratio 0.70 Alkaline Phosphatase 53 Anion Gap 14 Aspartate Amino Transf (AST/SGOT) 25 Basophils # 0.0 Basophils % 0.4 Blood Morphology Comment Blood Urea Nitrogen 19 Calcium Level 8.2 L Carbon Dioxide Level 21 Chloride Level 111 H Creatinine 1.05 Direct Bilirubin 0.00 Eosinophils # 0.5 Eosinophils % 5.2 Globulin 3.70 H Glucose Level 82 Hematocrit 28.3 L Hemoglobin 9.6 L Indirect Bilirubin 0.1 Lymphocytes # 1.5 Lymphocytes % 16.9 Mean Corpuscular Hemoglobin 28.9 L Mean Corpuscular Hemoglobin Concent 33.9 Mean Corpuscular Volume 85.3 Mean Platelet Volume 9.0 Monocytes # 0.7 Monocytes % 7.6 Neutrophils # 6.4 Neutrophils % 69.9 Nucleated Red Blood Cells # 0.0 Nucleated Red Blood Cells % 0.0 Platelet Count 291 Potassium Level 3.8 Red Blood Count 3.32 L Red Cell Distribution Width 17.5 H Sodium Level 142 Total Bilirubin 0.1 L Total Protein 6.3 White Blood Count 9.1 Magnesium Level 1.7 Phosphorus Level 2.7 Medications Medications Current Medications Sodium Chloride (NS) 1,000 ml @ 50 mls/hr Q20H IV Last administered on 14:00; Admin Dose 50 MLS/HR; Start 08/16/16 at 20:32 Ondansetron HCl (Zofran Inj) 4 mg Q6H PRN IV NAUSEA AND/OR VOMITING; Start at 21:00 Acetaminophen (Tylenol Supp) 650 mg Q4H PRN [place] PAIN LEVEL 1-3 OR FEVER; Start 08/16/16 at 21:00 Morphine Sulfate (morphine) 2 mg Q4H PRN IV PAIN LEVEL 7-10 Last administered on 08/17/16 12:09; Admin Dose 2 MG; Start 08/16/16 at 21:00 Lorazepam (Ativan) 1 mg Q2H PRN IV ANXIETY; Start 08/16/16 at 21:00 Bisacodyl (Dulcolax Supp) 10 mg DAILY PRN [place] CONSTIPATION; Start 08/16/16 at 21 :00 Insulin Aspart (Novolog Insulin Pen) NOVOLOG *MILD* ALGORI... Q4 SC Last administered on 08/18/16 13:24; Admin Dose 1 UNIT; Start 08/16/16 at 21:30 Chlorhexidine Gluconate (Peridex) 15 ml Q12 MM Last administered on 08/20/16 09:27; Admin Dose 15 ML; Start 08/16/16 at 21:00 Digoxin (Digoxin) 0.125 mg DAILY@13 GTB Last administered on 08/19/16 12:36; Admin Dose 0.125 MG; Start 08/17/16 at 13:00 Doxazosin Mesylate (Cardura) 4 mg HS GTB Last administered on 08/19/16 21:56; Admin Dose 4 MG; Start 08/16/16 at 22:00 Ferrous Sulfate (Feosol Liquid Cup) 300 mg DAILY GTB Last administered on 09:27; Admin Dose 300 MG; Start 08/17/16 at 09:00 Miscellaneous Information 1 ea NOTE XX ; Start 08/16/16 at 21:30 Glucose (Glutose) 15 gm Q15M PRN PO DECREASED GLUCOSE; Start 08/16/16 at 21:30 Glucose (Glutose) 22.5 gm Q15M PRN PO DECREASED GLUCOSE; Start 08/16/16 at 21: 30 Dextrose (D50w Syringe) 25 ml Q15M PRN IV DECREASED GLUCOSE; Start 08/16/16 at 21:30 Dextrose (D50w Syringe) 50 ml Q15M PRN IV DECREASED GLUCOSE; Start 08/16/16 at 21:30 Glucagon (Glucagen) 1 mg Q15M PRN IM DECREASED GLUCOSE; Start 08/16/16 at 21:30 Glucose (Glutose) 15 gm Q15M PRN BUCCAL DECREASED GLUCOSE; Start 08/16/16 at 21 :30 Metronidazole (Flagyl) 500 mg Q8 GTB Last administered on 08/20/16 05:40; Admin Dose 500 MG; Start 08/17/16 at 22:00 Lansoprazole (Prevacid) 30 mg DAILY@06 GTB Last administered on 08/20/16 05:40 ; Admin Dose 30 MG; Start 08/18/16 at 06:00 Linagliptin (Tradjenta) 5 mg DAILY PEG Last administered on 08/20/16 09:34; Admin Dose 5 MG; Start 08/19/16 at 09:00 Diltiazem HCl (Cardizem) 30 mg Q6 GTB ; Start 08/20/16 at 12:00 OTTONIEL SEBASTIAN MD Aug 20, 2016 10:02
[2016-08-20] MEDS: DILTIAZEM 30 MG TAB GTB SCH ×2 (13:14→18:15)
[2016-08-20] MEDS: DIGOXIN 0.125 MG TAB GTB SCH (13:15)
--- NOTE | 2016-08-20 14:02 | CONS ---
Date/Time of Note Date/Time of Note DATE: 08/20/16 TIME: 14:00 Assessment/Plan Assessment/Plan Chief Complaint/Hosp Course ID PROGRESS NOTE TOTAL ABX DAY =>FLAGYL GT 24H INTERVAL SUMMARY * Awake, resting w/eyes closed, open eyes, No new complaints - breathing improved on T-piece/off Vent * TNS out of ICU to Tele still on CBI for hematuria PHYSICAL EXAMINATION: GENERAL: 76 yo lethargic - awakens HEENT: Unremarkable NECK: Trach secure w/T-Piece CHEST: Equal chest rise bilaterally w/course BS HEART: Pulse RRR ABDOMEN: Soft EXTREMITIES: Warm SKIN: See photos ID ASSESSMENT: 76 yo M with chronic Trach admit with: 1. Gross hematuria, improving. The patient is getting continuous bladder irrigation and followed by urology. * s/p polymicrobial UTI 07/31/16: (+)STREP x2 species + PSAR -> s/p ABX w/repeat Urine cx (-) 2. Atrial fibrillation, rate controlled. Currently on amiodarone drip. 3. Resolving Clostridium difficile colitis. 4. Status post urinary tract infection. 5. Chronic respiratory failure. 6. Dysphagia. 7. Diabetes 8. SIRS on admission with low grade temp 99.6=> RESOLVING 9. Acute kidney injury/CKD (-)MRSA Nares (+)VRE stool colonization INVASIVES: ABX ALLERGY: KNDA CURRENT ABX: Flagy GT ID RECOMMENDATIONS: 1. No evidence of recurrent urosepsis 2. Avoid renal toxic ABX 3. Flagyl continues for (+)C.Diff toxin @ [place] 4. ?Back to [place] when hematuria resolves . Problems: Consultation Date/Type/Reason Admit Date/Time Aug 16, 2016 at 20:13 Type of Consultation: ID Exam/Review of Systems Vital Signs Vitals Vital Signs Date Time Temp Pulse Resp B/P Pulse Ox O2 Delivery O2 Flow Rate FiO2 08/20/16 12:15 82 08/20/16 11:16 98.3 24 121/59 93 08/20/16 04:00 Trach Collar 08/19/16 20:00 5.0 08/19/16 19:27 28 Intake and Output 08/19/16 08/19/16 08/20/16 15:00 23:00 07:00 Intake Total 5800 ml 16902 ml 96466 ml Output Total 6775 ml 56556 ml 95813 ml Balance -975 ml -5050 ml 2900 ml Results Result Diagram: 08/20/16 0555 08/20/16 0555 Results 24 hrs Laboratory Tests Test 08/19/16 17:54 08/19/16 21:57 08/20/16 00:41 08/20/16 04:27 Bedside Glucose 106 84 87 90 Test 08/20/16 05:55 08/20/16 06:07 08/20/16 09:30 08/20/16 13:13 Alanine Aminotransferase (ALT/SGPT) 24 Albumin 2.6 L Albumin/Globulin Ratio 0.70 Alkaline Phosphatase 53 Anion Gap 14 Aspartate Amino Transf (AST/SGOT) 25 Basophils # 0.0 Basophils % 0.4 Blood Morphology Comment Blood Urea Nitrogen 19 Calcium Level 8.2 L Carbon Dioxide Level 21 Chloride Level 111 H Creatinine 1.05 Direct Bilirubin 0.00 Eosinophils # 0.5 Eosinophils % 5.2 Globulin 3.70 H Glucose Level 82 Hematocrit 28.3 L Hemoglobin 9.6 L Indirect Bilirubin 0.1 Lymphocytes # 1.5 Lymphocytes % 16.9 Mean Corpuscular Hemoglobin 28.9 L Mean Corpuscular Hemoglobin Concent 33.9 Mean Corpuscular Volume 85.3 Mean Platelet Volume 9.0 Monocytes # 0.7 Monocytes % 7.6 Neutrophils # 6.4 Neutrophils % 69.9 Nucleated Red Blood Cells # 0.0 Nucleated Red Blood Cells % 0.0 Platelet Count 291 Potassium Level 3.8 Red Blood Count 3.32 L Red Cell Distribution Width 17.5 H Sodium Level 142 Total Bilirubin 0.1 L Total Protein 6.3 White Blood Count 9.1 Magnesium Level 1.7 Phosphorus Level 2.7 Bedside Glucose 102 94 Medications Medications Current Medications Sodium Chloride (NS) 1,000 ml @ 50 mls/hr Q20H IV Last administered on t 14:00; Admin Dose 50 MLS/HR; Start 08/16/16 at 20:32 Ondansetron HCl (Zofran Inj) 4 mg Q6H PRN IV NAUSEA AND/OR VOMITING; Start at 21:00 Acetaminophen (Tylenol Supp) 650 mg Q4H PRN [place] PAIN LEVEL 1-3 OR FEVER; Start 08/16/16 at 21:00 Morphine Sulfate (morphine) 2 mg Q4H PRN IV PAIN LEVEL 7-10 Last administered on 08/17/16 12:09; Admin Dose 2 MG; Start 08/16/16 at 21:00 Lorazepam (Ativan) 1 mg Q2H PRN IV ANXIETY; Start 08/16/16 at 21:00 Bisacodyl (Dulcolax Supp) 10 mg DAILY PRN [place] CONSTIPATION; Start 08/16/16 at 21 :00 Insulin Aspart (Novolog Insulin Pen) NOVOLOG *MILD* ALGORI... Q4 SC Last administered on 08/18/16 13:24; Admin Dose 1 UNIT; Start 08/16/16 at 21:30 Chlorhexidine Gluconate (Peridex) 15 ml Q12 MM Last administered on 08/20/16 09:27; Admin Dose 15 ML; Start 08/16/16 at 21:00 Digoxin (Digoxin) 0.125 mg DAILY@13 GTB Last administered on 08/20/16 13:15; Admin Dose 0.125 MG; Start 08/17/16 at 13:00 Doxazosin Mesylate (Cardura) 4 mg HS GTB Last administered on 08/19/16 21:56; Admin Dose 4 MG; Start 08/16/16 at 22:00 Ferrous Sulfate (Feosol Liquid Cup) 300 mg DAILY GTB Last administered on 09:27; Admin Dose 300 MG; Start 08/17/16 at 09:00 Miscellaneous Information 1 ea NOTE XX ; Start 08/16/16 at 21:30 Glucose (Glutose) 15 gm Q15M PRN PO DECREASED GLUCOSE; Start 08/16/16 at 21:30 Glucose (Glutose) 22.5 gm Q15M PRN PO DECREASED GLUCOSE; Start 08/16/16 at 21: 30 Dextrose (D50w Syringe) 25 ml Q15M PRN IV DECREASED GLUCOSE; Start 08/16/16 at 21:30 Dextrose (D50w Syringe) 50 ml Q15M PRN IV DECREASED GLUCOSE; Start 08/16/16 at 21:30 Glucagon (Glucagen) 1 mg Q15M PRN IM DECREASED GLUCOSE; Start 08/16/16 at 21:30 Glucose (Glutose) 15 gm Q15M PRN BUCCAL DECREASED GLUCOSE; Start 08/16/16 at 21 :30 Metronidazole (Flagyl) 500 mg Q8 GTB Last administered on 08/20/16 13:14; Admin Dose 500 MG; Start 08/17/16 at 22:00 Lansoprazole (Prevacid) 30 mg DAILY@06 GTB Last administered on 08/20/16 05:40 ; Admin Dose 30 MG; Start 08/18/16 at 06:00 Linagliptin (Tradjenta) 5 mg DAILY PEG Last administered on 08/20/16 09:34; Admin Dose 5 MG; Start 08/19/16 at 09:00 Diltiazem HCl (Cardizem) 30 mg Q6 GTB Last administered on 08/20/16 13:14; Admin Dose 30 MG; Start 08/20/16 at 12:00 Influenza Virus Vaccine (Fluzone) 0.5 ml ONCE ONCE IM* ; Start 08/21/16 at 09:00 ; Stop 08/21/16 at 09:01 ANTON PORTILLO NP Aug 20, 2016 14:02
--- NOTE | 2016-08-20 14:56 | PN ---
DATE: 08/20/2016 SUBJECTIVE: The patient is stable, no acute events overnight. No fevers, chills, nausea, vomiting. The patient is currently off continuous bladder irrigation. No other events noted. OBJECTIVE: VITAL SIGNS: Blood pressure 131/72, respiration 19, pulse 96, temperature 98.1. HEENT: Head is normocephalic. NECK: Supple. HEART: Regular rate. LUNGS: Show diminished breath sounds at base. ABDOMEN: Soft, nontender to palpation. No rebound or guarding. EXTREMITIES: Negative for clubbing, cyanosis. No edema. DERMATOLOGIC: No rashes. MUSCULOSKELETAL: No joint effusions. NEUROLOGIC: No change in exam. MEDICATIONS: The patient's medications have been reviewed. LABORATORY DATA: Sodium 142, potassium 3.8, chloride 111, BUN 19, creatinine 1.05. White count 9.1 , hemoglobin 9.6, hematocrit 28.3, platelet count 291. ASSESSMENT AND PLAN: 1. Nonoliguric acute kidney injury on top of chronic kidney disease stage IIIB with previous baseli ne creatinine around 1.5 mg/dL. Etiology of acute kidney injury is secondary to acute tubular necro sis. The patient's renal function continues to improve renal function is currently below previous b aseline. Continue supportive care, renally dose has been nephrotoxins. 2. Hyponatremia, improved. Continue free water flushes and exercise gross hematuria improved. The patient is status post bladder irrigation, now discontinued. Continue to monitor. Follow up with urology. 3. Anemia. Continue to monitor hemoglobin and hematocrit levels. 4. Chronic respiratory failure, status post trach. Continue medical management. 5. Status post percutaneous endoscopic gastrostomy. Continue tube feeding. 6. Chronic encephalopathy. No change. 7. Hypertension. Continue current blood pressure regimen. 8. Diabetes, continue Accu-Cheks and sliding scale. 9. History of cerebrovascular accident. 10. Neurogenic bladder with Ferreira. 11. Atrial fibrillation, rate controlled. Continue current treatment plan. 12. Clostridium difficile. Continue Flagyl. Dictated By: JOSÉ BIGGS/GENOVEVA Conf#: [id number] DID#: [id number]
--- NOTE | 2016-08-20 17:46 | CONS ---
Date/Time of Note Date/Time of Note DATE: 08/20/16 TIME: 17:45 Consult Date/Type/Reason Admit Date/Time Aug 16, 2016 at 20:13 Type of Consultation: Pulm Subjective No events. Objective Vital Signs Date Time Temp Pulse Resp B/P Pulse Ox O2 Delivery O2 Flow Rate FiO2 08/20/16 16:28 75 08/20/16 15:27 98.1 34 127/60 96 08/20/16 04:00 Trach Collar 08/19/16 20:00 5.0 08/19/16 19:27 28 Intake and Output 08/19/16 08/19/16 08/20/16 15:00 23:00 07:00 Intake Total 5800 ml 59021 ml 17242 ml Output Total 6775 ml 73068 ml 96146 ml Balance -975 ml -5050 ml 2900 ml NECK: Trach site clean and intact. CARDIAC: S1, S2, no added sounds or murmurs. CHEST: Diminished air entry bilaterally. ABDOMEN: Soft, nontender. No guarding or rebound. EXTREMITIES: No cyanosis, clubbing or edema. Results/Medications Result Diagram: 08/20/16 0555 08/20/16 0555 Results 24 hrs Laboratory Tests Test 08/19/16 17:54 08/19/16 21:57 08/20/16 00:41 08/20/16 04:27 Bedside Glucose 106 84 87 90 Test 08/20/16 05:55 08/20/16 06:07 08/20/16 09:30 08/20/16 13:13 Alanine Aminotransferase (ALT/SGPT) 24 Albumin 2.6 L Albumin/Globulin Ratio 0.70 Alkaline Phosphatase 53 Anion Gap 14 Aspartate Amino Transf (AST/SGOT) 25 Basophils # 0.0 Basophils % 0.4 Blood Morphology Comment Blood Urea Nitrogen 19 Calcium Level 8.2 L Carbon Dioxide Level 21 Chloride Level 111 H Creatinine 1.05 Direct Bilirubin 0.00 Eosinophils # 0.5 Eosinophils % 5.2 Globulin 3.70 H Glucose Level 82 Hematocrit 28.3 L Hemoglobin 9.6 L Indirect Bilirubin 0.1 Lymphocytes # 1.5 Lymphocytes % 16.9 Mean Corpuscular Hemoglobin 28.9 L Mean Corpuscular Hemoglobin Concent 33.9 Mean Corpuscular Volume 85.3 Mean Platelet Volume 9.0 Monocytes # 0.7 Monocytes % 7.6 Neutrophils # 6.4 Neutrophils % 69.9 Nucleated Red Blood Cells # 0.0 Nucleated Red Blood Cells % 0.0 Platelet Count 291 Potassium Level 3.8 Red Blood Count 3.32 L Red Cell Distribution Width 17.5 H Sodium Level 142 Total Bilirubin 0.1 L Total Protein 6.3 White Blood Count 9.1 Magnesium Level 1.7 Phosphorus Level 2.7 Bedside Glucose 102 94 Medications Current Medications Sodium Chloride (NS) 1,000 ml @ 50 mls/hr Q20H IV Last administered on 14:00; Admin Dose 50 MLS/HR; Start 08/16/16 at 20:32 Ondansetron HCl (Zofran Inj) 4 mg Q6H PRN IV NAUSEA AND/OR VOMITING; Start at 21:00 Acetaminophen (Tylenol Supp) 650 mg Q4H PRN [place] PAIN LEVEL 1-3 OR FEVER; Start 08/16/16 at 21:00 Morphine Sulfate (morphine) 2 mg Q4H PRN IV PAIN LEVEL 7-10 Last administered on 08/17/16 12:09; Admin Dose 2 MG; Start 08/16/16 at 21:00 Lorazepam (Ativan) 1 mg Q2H PRN IV ANXIETY; Start 08/16/16 at 21:00 Bisacodyl (Dulcolax Supp) 10 mg DAILY PRN [place] CONSTIPATION; Start 08/16/16 at 21 :00 Insulin Aspart (Novolog Insulin Pen) NOVOLOG *MILD* ALGORI... Q4 SC Last administered on 08/18/16 13:24; Admin Dose 1 UNIT; Start 08/16/16 at 21:30 Chlorhexidine Gluconate (Peridex) 15 ml Q12 MM Last administered on 08/20/16 09:27; Admin Dose 15 ML; Start 08/16/16 at 21:00 Digoxin (Digoxin) 0.125 mg DAILY@13 GTB Last administered on 08/20/16 13:15; Admin Dose 0.125 MG; Start 08/17/16 at 13:00 Doxazosin Mesylate (Cardura) 4 mg HS GTB Last administered on 08/19/16 21:56; Admin Dose 4 MG; Start 08/16/16 at 22:00 Ferrous Sulfate (Feosol Liquid Cup) 300 mg DAILY GTB Last administered on 09:27; Admin Dose 300 MG; Start 08/17/16 at 09:00 Miscellaneous Information 1 ea NOTE XX ; Start 08/16/16 at 21:30 Glucose (Glutose) 15 gm Q15M PRN PO DECREASED GLUCOSE; Start 08/16/16 at 21:30 Glucose (Glutose) 22.5 gm Q15M PRN PO DECREASED GLUCOSE; Start 08/16/16 at 21: 30 Dextrose (D50w Syringe) 25 ml Q15M PRN IV DECREASED GLUCOSE; Start 08/16/16 at 21:30 Dextrose (D50w Syringe) 50 ml Q15M PRN IV DECREASED GLUCOSE; Start 08/16/16 at 21:30 Glucagon (Glucagen) 1 mg Q15M PRN IM DECREASED GLUCOSE; Start 08/16/16 at 21:30 Glucose (Glutose) 15 gm Q15M PRN BUCCAL DECREASED GLUCOSE; Start 08/16/16 at 21 :30 Metronidazole (Flagyl) 500 mg Q8 GTB Last administered on 08/20/16 13:14; Admin Dose 500 MG; Start 08/17/16 at 22:00 Lansoprazole (Prevacid) 30 mg DAILY@06 GTB Last administered on 08/20/16 05:40 ; Admin Dose 30 MG; Start 08/18/16 at 06:00 Linagliptin (Tradjenta) 5 mg DAILY PEG Last administered on 08/20/16 09:34; Admin Dose 5 MG; Start 08/19/16 at 09:00 Diltiazem HCl (Cardizem) 30 mg Q6 GTB Last administered on 08/20/16 13:14; Admin Dose 30 MG; Start 08/20/16 at 12:00 Influenza Virus Vaccine (Fluzone) 0.5 ml ONCE ONCE IM* ; Start 08/21/16 at 09:00 ; Stop 08/21/16 at 09:01 Assessment/Plan Additional Assessment/Plan IMPRESSION: 1. Chronic respiratory failure with tracheostomy. 2. Significant hematuria, pending further workup and recommendations. Resolving hematuria 3. Significant anemia, likely secondary to hematuria 4. Paroxysmal atrial fibrillation complicated by supraventricular tachycardia, now in normal sinus rhythm. PLAN: 1. Status post transfusion of packed red blood cells monitor H&H 2. Continue cool aerosol. 3. Tube feeding/free H2O 4. Speech therapy MARI Menezes MD Aug 20, 2016 17:46
--- NOTE | 2016-08-20 20:26 | PN ---
DATE: SUBJECTIVE: Gross hematuria. The patient does have a 3-way Ferreira catheter with continuous bladder irrigation. It seems that the hematuria has slowed down and the irrigation is running well and he d id not have to have the irrigation and hand irrigated today. He appears also to be comfortable. OBJECTIVE: VITAL SIGNS: Temperature 98.1, the pulse is 74, respiration is 34, and the blood pressure 126/60. ABDOMEN: Soft. The bladder is not distended. The Ferreira catheter is draining blood-tinged urine, b ut there are no clots. LABORATORY DATA: His CBC shows a white count of 9.1, hemoglobin 9.6, hematocrit 28.3. The BUN is 1 9, creatinine 1.05, sodium 142, potassium 3.8, chloride 111, CO2 of 21. IMPRESSION: Gross hematuria that has now stabilized. He is not actively bleeding, but he still nee ds continuous bladder irrigation. PLAN: To continue the continuous bladder irrigation, monitor his H and H, and transfuse him if need ed. Dictated By: TANA EMERSON MD BB/GENOVEVA Conf#: [id number] DID#: [id number] CC: DILIP ARELLANO MD;*EndCC*
[2016-08-20] MEDS: DOXAZOSIN 4 MG TAB GTB SCH (20:29)
[2016-08-21] VITALS (13 sets, daily range): BP systolic 102–124; BP diastolic 51–67; PULSE 77–80; RESP 18–20
[2016-08-21] MEDS: DILTIAZEM 30 MG TAB GTB SCH ×4 (00:10→17:33)
[2016-08-21] MEDS: SOD CHLORIDE 0.9% 1,000 ML IV SCH (00:10)
[2016-08-21] MEDS: INSULIN ASPART [NOVOLOG] 3 ML PEN SC SCH ×6 (00:20→21:00)
[2016-08-21] MEDS: LANSOPRAZOLE 30 MG CAP GTB SCH (05:45)
[2016-08-21] MEDS: metroNIDAZOLE 500 MG TAB GTB SCH ×3 (05:47→22:01)
[2016-08-21 06:37] LABS: BASOPHILS % 0.2 % (0.0-2.0); EOSINOPHILS # 0.5 10^3/ul (0.0-0.5); EOSINOPHILS % 4.2 % (0.0-7.0); HEMATOCRIT 30.6 % (42.0-52.0); HEMOGLOBIN 10.3 g/dl (14.0-18.0); LYMPHOCYTES # 1.5 10^3/ul (0.8-2.9); LYMPHOCYTES % 14.2 % (15.0-51.0); MEAN CORPUSCULAR HEMOGLOBIN 28.6 pg (29.0-33.0); MEAN CORPUSCULAR HGB CONC 33.7 g/dl (32.0-37.0); MEAN CORPUSCULAR VOLUME 84.9 fl (82.0-101.0); MEAN PLATELET VOLUME 8.8 fl (7.4-10.4); MONOCYTE # 0.7 10^3/ul (0.3-0.9); MONOCYTES % 6.2 % (0.0-11.0); NEUTROPHIL # 8.2 10^3/ul (1.6-7.5); NEUTROPHILS % 75.2 % (39.0-77.0); PLATELET COUNT 344 10^3/UL (140-440); RED CELL DISTRIBUTION WIDTH 17.8 % (11.5-14.5); UNCORRECTED WBC 10.9 10^3/ul (4.8-10.8); WHITE BLOOD COUNT 10.9 10^3/ul (4.8-10.8)
[2016-08-21 06:42] LABS: POTASSIUM 3.8 mmol/L (3.5-5.1)
[2016-08-21 06:43] LABS: CONDITION 1; LH ANALYZER COMMENTS 1
[2016-08-21 06:44] LABS: CREATININE 1.03 mg/dl (0.61-1.24)
[2016-08-21 06:45] LABS: CALCIUM 8.3 mg/dl (8.4-10.2); MAGNESIUM 1.8 mg/dl (1.7-2.5); PHOSPHORUS 2.5 mg/dl (2.5-4.9)
[2016-08-21] MEDS: FERROUS SULFATE 60 MG/ML 5ML CUP GTB SCH (08:45)
[2016-08-21] MEDS: LINAGLIPTIN 5 MG TABLET PEG SCH (08:45)
[2016-08-21] MEDS: CHLORHEXIDINE GLUCONATE 15 ML UD CUP MM SCH ×2 (08:45→22:01)
[2016-08-21] MEDS ORDERED: INFLUENZA VIRUS VACCINE 0.5 ML (DISPENSING) IM* ONE (09:00)
--- NOTE | 2016-08-21 09:18 | PN ---
DATE: 08/21/2016 SUBJECTIVE: The patient is stable, no acute events overnight. No fevers, chills, nausea, vomiting. OBJECTIVE: VITAL SIGNS: Blood pressure is 111/57, respirations 18, pulse 79, temperature 98.5. HEENT: Head is normocephalic. NECK: Supple. HEART: Regular rate. LUNGS: Show diminished breath sounds at base. ABDOMEN: Soft, nontender to palpation without rebound or guarding. EXTREMITIES: Negative for clubbing, cyanosis, no edema. DERMATOLOGIC: No rashes. MUSCULOSKELETAL: No joint effusions. NEUROLOGIC: No change in exam. MEDICATIONS: The patient's medications have been reviewed. LABORATORY DATA: Showed sodium 140, potassium 3.8, BUN 18, creatinine 1.03. White count 10.9, hemo globin 10.3, hematocrit 30.6, platelet count 344. ASSESSMENT AND PLAN: 1. Nonoliguric acute kidney injury on top of chronic kidney disease stage IIIB. With a baseline cr eatinine of 1.5 mg/dL. Etiology of acute kidney injury secondary to acute tubular necrosis. Renal fu nction has improved, currently below baseline. Continue supportive care, renally dose all medication s, avoid nephrotoxins. 2. Hypernatremia, improved. Continue free water flushes. 3. Anemia. Continue to monitor hemoglobin and hematocrit levels. 4. Chronic respiratory failure, status post tracheostomy, stable. Continue medical management. 5. Dysphagia, status post PEG. Continue tube feeding. 6. Chronic encephalopathy. No change. 7. Gross hematuria. The patient remains on continuous bladder irrigation. Will continue. Follow up with urology. 8. Hypertension. Continue current blood pressure regimen. 9. Diabetes, continue Accu-Cheks and sliding scale. 10. Neurogenic bladder with Ferreira catheter. 11. Atrial fibrillation, rate controlled. Continue medical management. 12. Clostridium difficile. Continue Flagyl. Dictated By: JOSÉ BIGGS/GENOVEVA Conf#: [id number] DID#: [id number]
--- NOTE | 2016-08-21 10:04 | PN ---
DATE: 08/21/2016 SUBJECTIVE: Gross hematuria. Patient on continuous bladder irrigation. The patient himself is not capable of giving any symptoms. He is on a respirator. OBJECTIVE VITAL SIGNS: His temperature is 98.5, blood pressure 111/57, pulse 79, respiration 18. ABDOMEN: Soft. The bladder does not seem to be distended. The Ferreira catheter is draining clear wi th a continuous bladder irrigation. There are no clots and no active bleeding. LABORATORY DATA: CBC today shows a white count of 10.9, hemoglobin 10.3, hematocrit 30.6. BUN is 1 8, creatinine 1.03. The electrolytes, sodium 140, potassium 3.8, chloride 111, CO2 19. IMPRESSION: Gross hematuria that has cleared and the patient on continuous bladder irrigation. PLAN: To slow down the irrigation, but keep it going and if the urine remains clear, then one may s top it; however, keep it connected just in case we need to resume it again. Continue to monitor his H and H and transfuse him as needed. Dictated By: TANA DUBOIS/GENOVEVA Conf#: [id number] DID#: [id number]
[2016-08-21] MEDS: DIGOXIN 0.125 MG TAB GTB SCH (12:17)
--- NOTE | 2016-08-21 13:01 | CONS ---
Date/Time of Note Date/Time of Note DATE: 08/21/16 TIME: 12:59 Consult Date/Type/Reason Admit Date/Time Aug 16, 2016 at 20:13 Type of Consultation: Pulm Subjective Patient remains comfortable no new events Awake alert oriented resolving hematuria Objective Vital Signs Date Time Temp Pulse Resp B/P Pulse Ox O2 Delivery O2 Flow Rate FiO2 08/21/16 12:40 80 08/21/16 11:46 98.7 18 113/59 96 08/21/16 11:46 Aerosol Mask 5.0 28 T Tube Intake and Output 08/20/16 08/20/16 08/21/16 15:00 23:00 07:00 Intake Total 79111 ml 94053 ml Output Total 68736 ml 67739 ml Balance -2050 ml -245 ml GENERAL: Elderly appearing gentleman on mechanical ventilation appears comfortable at rest VITAL SIGNS: per chart NECK: Supple. No JVD or lymphadenopathy. CARDIAC EXAM: S1, S2. No added sounds or murmurs. CHEST: clear bilaterally, No added sounds, rales or wheezes ABDOMEN: Soft, nontender. No guarding or rebound. EXTREMITIES: No cyanosis, clubbing or edema. NEUROLOGIC: Generalized weakness. No focal deficits. Results/Medications Result Diagram: 08/21/16 0556 08/21/16 0556 Results 24 hrs Laboratory Tests Test 08/20/16 13:13 08/20/16 17:24 08/20/16 20:31 08/21/16 00:20 Bedside Glucose 94 114 101 100 Test 08/21/16 05:44 08/21/16 05:56 08/21/16 07:59 08/21/16 12:07 Bedside Glucose 87 101 99 Anion Gap 14 Basophils # 0.0 Basophils % 0.2 Blood Morphology Comment Blood Urea Nitrogen 18 Calcium Level 8.3 L Carbon Dioxide Level 19 L Chloride Level 111 H Creatinine 1.03 Eosinophils # 0.5 Eosinophils % 4.2 Glucose Level 81 Hematocrit 30.6 L Hemoglobin 10.3 L Lymphocytes # 1.5 Lymphocytes % 14.2 L Magnesium Level 1.8 Mean Corpuscular Hemoglobin 28.6 L Mean Corpuscular Hemoglobin Concent 33.7 Mean Corpuscular Volume 84.9 Mean Platelet Volume 8.8 Monocytes # 0.7 Monocytes % 6.2 Neutrophils # 8.2 H Neutrophils % 75.2 Nucleated Red Blood Cells # 0.0 Nucleated Red Blood Cells % 0.0 Phosphorus Level 2.5 Platelet Count 344 Potassium Level 3.8 Red Blood Count 3.60 L Red Cell Distribution Width 17.8 H Sodium Level 140 White Blood Count 10.9 H Medications Current Medications Ondansetron HCl (Zofran Inj) 4 mg Q6H PRN IV NAUSEA AND/OR VOMITING; Start at 21:00 Acetaminophen (Tylenol Supp) 650 mg Q4H PRN [place] PAIN LEVEL 1-3 OR FEVER; Start 08/16/16 at 21:00 Morphine Sulfate (morphine) 2 mg Q4H PRN IV PAIN LEVEL 7-10 Last administered on 08/17/16 12:09; Admin Dose 2 MG; Start 08/16/16 at 21:00 Lorazepam (Ativan) 1 mg Q2H PRN IV ANXIETY Last administered on 08/20/16 20:28 ; Admin Dose 1 MG; Start 08/16/16 at 21:00 Bisacodyl (Dulcolax Supp) 10 mg DAILY PRN [place] CONSTIPATION; Start 08/16/16 at 21 :00 Insulin Aspart (Novolog Insulin Pen) NOVOLOG *MILD* ALGORI... Q4 SC Last administered on 08/18/16 13:24; Admin Dose 1 UNIT; Start 08/16/16 at 21:30 Chlorhexidine Gluconate (Peridex) 15 ml Q12 MM Last administered on 08/21/16 08:45; Admin Dose 15 ML; Start 08/16/16 at 21:00 Digoxin (Digoxin) 0.125 mg DAILY@13 GTB Last administered on 08/21/16 12:17; Admin Dose 0.125 MG; Start 08/17/16 at 13:00 Doxazosin Mesylate (Cardura) 4 mg HS GTB Last administered on 08/20/16 20:29; Admin Dose 4 MG; Start 08/16/16 at 22:00 Ferrous Sulfate (Feosol Liquid Cup) 300 mg DAILY GTB Last administered on 08:45; Admin Dose 300 MG; Start 08/17/16 at 09:00 Miscellaneous Information 1 ea NOTE XX ; Start 08/16/16 at 21:30 Glucose (Glutose) 15 gm Q15M PRN PO DECREASED GLUCOSE; Start 08/16/16 at 21:30 Glucose (Glutose) 22.5 gm Q15M PRN PO DECREASED GLUCOSE; Start 08/16/16 at 21: 30 Dextrose (D50w Syringe) 25 ml Q15M PRN IV DECREASED GLUCOSE; Start 08/16/16 at 21:30 Dextrose (D50w Syringe) 50 ml Q15M PRN IV DECREASED GLUCOSE; Start 08/16/16 at 21:30 Glucagon (Glucagen) 1 mg Q15M PRN IM DECREASED GLUCOSE; Start 08/16/16 at 21:30 Glucose (Glutose) 15 gm Q15M PRN BUCCAL DECREASED GLUCOSE; Start 08/16/16 at 21 :30 Metronidazole (Flagyl) 500 mg Q8 GTB Last administered on 08/21/16 05:47; Admin Dose 500 MG; Start 08/17/16 at 22:00 Lansoprazole (Prevacid) 30 mg DAILY@06 GTB Last administered on 08/21/16 05:45 ; Admin Dose 30 MG; Start 08/18/16 at 06:00 Linagliptin (Tradjenta) 5 mg DAILY PEG Last administered on 08/21/16 08:45; Admin Dose 5 MG; Start 08/19/16 at 09:00 Diltiazem HCl (Cardizem) 30 mg Q6 GTB Last administered on 08/21/16 12:09; Admin Dose 30 MG; Start 08/20/16 at 12:00 Assessment/Plan Chief Complaint/Hosp Course IMPRESSION: 1. Chronic respiratory failure with tracheostomy. 2. Significant hematuria, pending further workup and recommendations. Resolving hematuria 3. Significant anemia, likely secondary to hematuria 4. Paroxysmal atrial fibrillation complicated by supraventricular tachycardia, now in normal sinus rhythm. PLAN: 1. Status post transfusion of packed red blood cells monitor H&H 2. Continue cool aerosol. 3. Tube feeding/free H2O 4. Speech therapy eval Transfer back to [place] Problems: MUNIR DESHPANDE MD, [facility] Aug 21, 2016 13:01
--- NOTE | 2016-08-21 14:19 | CONS ---
Date/Time of Note Date/Time of Note DATE: 08/21/16 TIME: 14:17 Assessment/Plan Assessment/Plan Chief Complaint/Hosp Course SUBJECTIVE: No changes overnight. No fevers. The patient is awake, looks comfortable, no fevers ANTIMICROBIALS: Flagyl per G-tube. INDWELLINGS: Trach, PEG, Ferreira. PHYSICAL EXAMINATION: GENERAL: This is a fragile, elderly man, who is awake, noncommunicative and in no distress. HEENT: Head atraumatic, normocephalic. Sclerae are anicteric. Buccal mucosa dry. NECK: Supple. Tracheostomy present. CHEST: Chest rise is symmetrical. Breath sounds diminished to the bases. HEART: S1, S2. ABDOMEN: Soft. Bowel tones present. EXTREMITIES: With trace edema. ASSESSMENT: 1. Gross hematuria==> resolved. Urology follows. 2. Atrial fibrillation, rate controlled 3. Resolving Clostridium difficile colitis. 4. Status post urinary tract infection. 5. Chronic respiratory failure. 6. Dysphagia. 7. Diabetes. Blood sugar below 180. PLAN: The patient remains stable. Continue the present care, complete antibiotics. Follow recommendation of specialists. Dw staff Problems: Consultation Date/Type/Reason Admit Date/Time Aug 16, 2016 at 20:13 Initial Consult Date Type of Consultation: id Exam/Review of Systems Vital Signs Vitals Vital Signs Date Time Temp Pulse Resp B/P Pulse Ox O2 Delivery O2 Flow Rate FiO2 08/21/16 12:40 80 08/21/16 11:46 98.7 18 113/59 96 08/21/16 11:46 Aerosol Mask 5.0 28 T Tube Intake and Output 08/20/16 08/20/16 08/21/16 15:00 23:00 07:00 Intake Total 77427 ml 85009 ml Output Total 70280 ml 39280 ml Balance -2050 ml -245 ml Results Result Diagram: 08/21/16 0556 08/21/16 0556 Results 24 hrs Laboratory Tests Test 08/20/16 17:24 08/20/16 20:31 08/21/16 00:20 08/21/16 05:44 Bedside Glucose 114 101 100 87 Test 08/21/16 05:56 08/21/16 07:59 08/21/16 12:07 Anion Gap 14 Basophils # 0.0 Basophils % 0.2 Blood Morphology Comment Blood Urea Nitrogen 18 Calcium Level 8.3 L Carbon Dioxide Level 19 L Chloride Level 111 H Creatinine 1.03 Eosinophils # 0.5 Eosinophils % 4.2 Glucose Level 81 Hematocrit 30.6 L Hemoglobin 10.3 L Lymphocytes # 1.5 Lymphocytes % 14.2 L Magnesium Level 1.8 Mean Corpuscular Hemoglobin 28.6 L Mean Corpuscular Hemoglobin Concent 33.7 Mean Corpuscular Volume 84.9 Mean Platelet Volume 8.8 Monocytes # 0.7 Monocytes % 6.2 Neutrophils # 8.2 H Neutrophils % 75.2 Nucleated Red Blood Cells # 0.0 Nucleated Red Blood Cells % 0.0 Phosphorus Level 2.5 Platelet Count 344 Potassium Level 3.8 Red Blood Count 3.60 L Red Cell Distribution Width 17.8 H Sodium Level 140 White Blood Count 10.9 H Bedside Glucose 101 99 Medications Medications Current Medications Ondansetron HCl (Zofran Inj) 4 mg Q6H PRN IV NAUSEA AND/OR VOMITING; Start at 21:00 Acetaminophen (Tylenol Supp) 650 mg Q4H PRN [place] PAIN LEVEL 1-3 OR FEVER; Start 08/16/16 at 21:00 Morphine Sulfate (morphine) 2 mg Q4H PRN IV PAIN LEVEL 7-10 Last administered on 08/17/16 12:09; Admin Dose 2 MG; Start 08/16/16 at 21:00 Lorazepam (Ativan) 1 mg Q2H PRN IV ANXIETY Last administered on 08/20/16 20:28 ; Admin Dose 1 MG; Start 08/16/16 at 21:00 Bisacodyl (Dulcolax Supp) 10 mg DAILY PRN [place] CONSTIPATION; Start 08/16/16 at 21 :00 Insulin Aspart (Novolog Insulin Pen) NOVOLOG *MILD* ALGORI... Q4 SC Last administered on 08/18/16 13:24; Admin Dose 1 UNIT; Start 08/16/16 at 21:30 Chlorhexidine Gluconate (Peridex) 15 ml Q12 MM Last administered on 08/21/16 08:45; Admin Dose 15 ML; Start 08/16/16 at 21:00 Digoxin (Digoxin) 0.125 mg DAILY@13 GTB Last administered on 08/21/16 12:17; Admin Dose 0.125 MG; Start 08/17/16 at 13:00 Doxazosin Mesylate (Cardura) 4 mg HS GTB Last administered on 08/20/16 20:29; Admin Dose 4 MG; Start 08/16/16 at 22:00 Ferrous Sulfate (Feosol Liquid Cup) 300 mg DAILY GTB Last administered on 08:45; Admin Dose 300 MG; Start 08/17/16 at 09:00 Miscellaneous Information 1 ea NOTE XX ; Start 08/16/16 at 21:30 Glucose (Glutose) 15 gm Q15M PRN PO DECREASED GLUCOSE; Start 08/16/16 at 21:30 Glucose (Glutose) 22.5 gm Q15M PRN PO DECREASED GLUCOSE; Start 08/16/16 at 21: 30 Dextrose (D50w Syringe) 25 ml Q15M PRN IV DECREASED GLUCOSE; Start 08/16/16 at 21:30 Dextrose (D50w Syringe) 50 ml Q15M PRN IV DECREASED GLUCOSE; Start 08/16/16 at 21:30 Glucagon (Glucagen) 1 mg Q15M PRN IM DECREASED GLUCOSE; Start 08/16/16 at 21:30 Glucose (Glutose) 15 gm Q15M PRN BUCCAL DECREASED GLUCOSE; Start 08/16/16 at 21 :30 Metronidazole (Flagyl) 500 mg Q8 GTB Last administered on 08/21/16 14:09; Admin Dose 500 MG; Start 08/17/16 at 22:00 Lansoprazole (Prevacid) 30 mg DAILY@06 GTB Last administered on 08/21/16 05:45 ; Admin Dose 30 MG; Start 08/18/16 at 06:00 Linagliptin (Tradjenta) 5 mg DAILY PEG Last administered on 08/21/16 08:45; Admin Dose 5 MG; Start 08/19/16 at 09:00 Diltiazem HCl (Cardizem) 30 mg Q6 GTB Last administered on 08/21/16 12:09; Admin Dose 30 MG; Start 08/20/16 at 12:00 ADITYA CALLAHAN NP Aug 21, 2016 14:19
[2016-08-21] MEDS ORDERED: METR500T GTB (15:45)
--- NOTE | 2016-08-21 17:16 | PN ---
Date/Time of Note Date/Time of Note DATE: 08/21/16 TIME: 17:15 Assessment/Plan VTE Prophylaxis VTE Prophylaxis Intervention: SCD's Lines/Catheters IV Catheter Type (from Nrs): Saline Lock Urinary Cath still in place: Yes Reason Cath still needed: urinary retention Assessment/Plan Assessment/Plan 1. Gross hematuria - infectious vs clotting disorder - s/p bladder irrigation, continue with serial H/H, monitor for acute changes 2. Trach dependent respiratory failure - pulm care, continue with supplemental oxygen 4. Essential hypertension - continue with current medications 5. Type II DM - continue with diabeta source, q6h POC glucose, ISS 6. Anemia of chronic disease - monitor H/H 7. COPD - prn breathing treatments 8. Dyslipidemia - continue with statin 9. 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 NSVT - REMAINS IN NSR 11. SVT - REMAINS IN NSR Subjective 24 Hr Interval Summary Free Text/Dictation The patient with no change Exam/Review of Systems Vital Signs Vitals Vital Signs Date Time Temp Pulse Resp B/P Pulse Ox O2 Delivery O2 Flow Rate FiO2 08/21/16 16:02 78 18 98 Aerosol 5.0 28 T Tube 08/21/16 14:59 98.4 102/59 Intake and Output 08/20/16 08/20/16 08/21/16 15:00 23:00 07:00 Intake Total 05220 ml 25125 ml Output Total 01054 ml 29985 ml Balance -2050 ml -245 ml Results Result Diagram: 08/21/16 0556 08/21/16 0556 Results 24 hrs Laboratory Tests Test 08/20/16 17:24 08/20/16 20:31 08/21/16 00:20 08/21/16 05:44 Bedside Glucose 114 101 100 87 Test 08/21/16 05:56 08/21/16 07:59 08/21/16 12:07 Anion Gap 14 Basophils # 0.0 Basophils % 0.2 Blood Morphology Comment Blood Urea Nitrogen 18 Calcium Level 8.3 L Carbon Dioxide Level 19 L Chloride Level 111 H Creatinine 1.03 Eosinophils # 0.5 Eosinophils % 4.2 Glucose Level 81 Hematocrit 30.6 L Hemoglobin 10.3 L Lymphocytes # 1.5 Lymphocytes % 14.2 L Magnesium Level 1.8 Mean Corpuscular Hemoglobin 28.6 L Mean Corpuscular Hemoglobin Concent 33.7 Mean Corpuscular Volume 84.9 Mean Platelet Volume 8.8 Monocytes # 0.7 Monocytes % 6.2 Neutrophils # 8.2 H Neutrophils % 75.2 Nucleated Red Blood Cells # 0.0 Nucleated Red Blood Cells % 0.0 Phosphorus Level 2.5 Platelet Count 344 Potassium Level 3.8 Red Blood Count 3.60 L Red Cell Distribution Width 17.8 H Sodium Level 140 White Blood Count 10.9 H Bedside Glucose 101 99 Medications Medications Current Medications Ondansetron HCl (Zofran Inj) 4 mg Q6H PRN IV NAUSEA AND/OR VOMITING; Start at 21:00 Acetaminophen (Tylenol Supp) 650 mg Q4H PRN [place] PAIN LEVEL 1-3 OR FEVER; Start 08/16/16 at 21:00 Morphine Sulfate (morphine) 2 mg Q4H PRN IV PAIN LEVEL 7-10 Last administered on 08/17/16 12:09; Admin Dose 2 MG; Start 08/16/16 at 21:00 Lorazepam (Ativan) 1 mg Q2H PRN IV ANXIETY Last administered on 08/20/16 20:28 ; Admin Dose 1 MG; Start 08/16/16 at 21:00 Bisacodyl (Dulcolax Supp) 10 mg DAILY PRN [place] CONSTIPATION; Start 08/16/16 at 21 :00 Insulin Aspart (Novolog Insulin Pen) NOVOLOG *MILD* ALGORI... Q4 SC Last administered on 08/18/16 13:24; Admin Dose 1 UNIT; Start 08/16/16 at 21:30 Chlorhexidine Gluconate (Peridex) 15 ml Q12 MM Last administered on 08/21/16 08:45; Admin Dose 15 ML; Start 08/16/16 at 21:00 Digoxin (Digoxin) 0.125 mg DAILY@13 GTB Last administered on 08/21/16 12:17; Admin Dose 0.125 MG; Start 08/17/16 at 13:00 Doxazosin Mesylate (Cardura) 4 mg HS GTB Last administered on 08/20/16 20:29; Admin Dose 4 MG; Start 08/16/16 at 22:00 Ferrous Sulfate (Feosol Liquid Cup) 300 mg DAILY GTB Last administered on 08:45; Admin Dose 300 MG; Start 08/17/16 at 09:00 Miscellaneous Information 1 ea NOTE XX ; Start 08/16/16 at 21:30 Glucose (Glutose) 15 gm Q15M PRN PO DECREASED GLUCOSE; Start 08/16/16 at 21:30 Glucose (Glutose) 22.5 gm Q15M PRN PO DECREASED GLUCOSE; Start 08/16/16 at 21: 30 Dextrose (D50w Syringe) 25 ml Q15M PRN IV DECREASED GLUCOSE; Start 08/16/16 at 21:30 Dextrose (D50w Syringe) 50 ml Q15M PRN IV DECREASED GLUCOSE; Start 08/16/16 at 21:30 Glucagon (Glucagen) 1 mg Q15M PRN IM DECREASED GLUCOSE; Start 08/16/16 at 21:30 Glucose (Glutose) 15 gm Q15M PRN BUCCAL DECREASED GLUCOSE; Start 08/16/16 at 21 :30 Metronidazole (Flagyl) 500 mg Q8 GTB Last administered on 08/21/16 14:09; Admin Dose 500 MG; Start 08/17/16 at 22:00 Lansoprazole (Prevacid) 30 mg DAILY@06 GTB Last administered on 08/21/16 05:45 ; Admin Dose 30 MG; Start 08/18/16 at 06:00 Linagliptin (Tradjenta) 5 mg DAILY PEG Last administered on 08/21/16 08:45; Admin Dose 5 MG; Start 08/19/16 at 09:00 Diltiazem HCl (Cardizem) 30 mg Q6 GTB Last administered on 08/21/16 12:09; Admin Dose 30 MG; Start 08/20/16 at 12:00 JORGE CAZARES MD Aug 21, 2016 17:16
[2016-08-21] MEDS: DOXAZOSIN 4 MG TAB GTB SCH (22:01)
[2016-08-22] VITALS (11 sets, daily range): BP systolic 111–169; BP diastolic 62–89; PULSE 78–111; RESP 18–23
[2016-08-22] MEDS: DILTIAZEM 30 MG TAB GTB SCH ×3 (00:33→13:17)
[2016-08-22] MEDS: INSULIN ASPART [NOVOLOG] 3 ML PEN SC SCH ×6 (01:00→21:00)
[2016-08-22] MEDS: metroNIDAZOLE 500 MG TAB GTB SCH ×3 (06:23→21:21)
[2016-08-22] MEDS: LANSOPRAZOLE 30 MG CAP GTB SCH (06:23)
[2016-08-22 07:28] LABS: POTASSIUM 3.7 mmol/L (3.5-5.1)
[2016-08-22 07:30] LABS: CREATININE 0.99 mg/dl (0.61-1.24)
[2016-08-22 07:31] LABS: CALCIUM 8.5 mg/dl (8.4-10.2); PHOSPHORUS 2.6 mg/dl (2.5-4.9)
[2016-08-22 07:32] LABS: MAGNESIUM 1.8 mg/dl (1.7-2.5)
[2016-08-22] MEDS: CHLORHEXIDINE GLUCONATE 15 ML UD CUP MM SCH ×2 (08:39→21:21)
[2016-08-22] MEDS: LINAGLIPTIN 5 MG TABLET PEG SCH (08:39)
[2016-08-22] MEDS: FERROUS SULFATE 60 MG/ML 5ML CUP GTB SCH (08:39)
--- NOTE | 2016-08-22 09:59 | DS ---
DATE OF ADMISSION: 08/16/2016 DATE OF DISCHARGE: 08/21/2016 DISCHARGE DIAGNOSES 1. Chronic obstructive pulmonary disease, stable. 2. Clostridium difficile colitis. Continue Flagyl. 3. History of cerebrovascular accident. No acute issues 4. Paroxysmal atrial fibrillation with rapid ventricular rate. Hold any blood thinners at this josy e secondary to hematuria. 5. Hematuria. ____ consult appreciated. Continue bladder irrigation at [facility]. 6. Neurogenic bladder. Continue Ferreira. 7. Chronic kidney disease III, stable. 8. Diabetes type 2, stable. HOSPITAL COURSE: The patient is a 76-year-old male with history of hypertension, type 2 diabetes, a nemia of chronic disease, trach dependent respiratory failure, COPD, and dysphagia, status post PEG and hematuria. The patient presents with gross hematuria. The patient was seen by Dr. Miller of [facility]. The patient was started on continuous bladder irrigation. The hematuria did improve. The r ecommendation was to continue irrigation, but can stop if the urine remains clear. H and H was stab le. Patient was felt to be stable to return back to [facility]. On the day of discharge, the patient's vitals, labs, and physical exam were stable. The patient was being seen by ID and was on Flagyl du ring the hospitalization. CONDITION ON DISCHARGE: Fair. DISPOSITION: [place]. MEDICATIONS: The patient to continue his usual [place] medications, but is to stop aspirin and Loven ox, secondary to hematuria. The patient was given Flagyl. FOLLOWUP: The patient is to follow up with physicians at [facility]. Greater than 30 minutes was spent in coordinating discharge of this patient Dictated By: ISIS BATISTA MD BS/NTS Conf#: [id number] DID#: [id number]
--- NOTE | 2016-08-22 11:29 | PN ---
DATE: 08/22/2016 SUBJECTIVE: The patient is stable, no acute events overnight. Continues to be on continuous bladde r irrigation, no hemoptysis, hematemesis, hematochezia. OBJECTIVE: VITAL SIGNS: Blood pressure is 133/65, respiration 19, pulse 82, temperature 97.5. HEENT: Head is normocephalic. NECK: Shows trach. HEART: Regular rate. LUNGS: Show diminished breath sounds at the base. ABDOMEN: Soft, nontender to palpation. Positive PEG. EXTREMITIES: Negative for clubbing, cyanosis, no edema. DERMATOLOGIC: No rashes. MUSCULOSKELETAL: No joint effusions. NEUROLOGIC: No change in exam. MEDICATIONS: The patient's medications have been reviewed. LABORATORY DATA: Shows sodium 142, potassium 3.7, chloride 111, BUN 19, creatinine 0.99. White cou nt 10.9, hemoglobin 10.3, hematocrit 30.6, platelet count 344. ASSESSMENT AND PLAN: 1. Nonoliguric acute kidney injury on top of chronic kidney disease, stage IIIB. Etiology of acute kidney injury is secondary to acute tubular necrosis. Renal function has improved, currently below baseline. Continue current treatment plan, supportive care, renally dose medications. 2. Hyponatremia, improved. Continue free water flushes. 3. Gross hematuria, improving. The patient is on continuous bladder irrigation. Will continue. F ollow up with urology. 4. Anemia. Continue to monitor hemoglobin and hematocrit levels. 5. Chronic respiratory failure, status post trach. Continue medical management. 6. Dysphagia, status post PEG. Continue tube feeding. 7. Chronic encephalopathy. No change. 8. Hypertension. Continue current blood pressure regimen. 9. Diabetes, continue Accu-Cheks and sliding scale. 10. Atrial fibrillation, rate controlled. Continue medical management. 11. Clostridium difficile. Continue Flagyl. Dictated By: JOSÉ BIGGS/GENOVEVA Conf#: [id number] DID#: [id number]
[2016-08-22] MEDS: DIGOXIN 0.125 MG TAB GTB SCH (13:18)
--- NOTE | 2016-08-22 15:33 | PN ---
Date/Time of Note Date/Time of Note DATE: 08/22/16 TIME: 15:30 Assessment/Plan VTE Prophylaxis VTE Prophylaxis Intervention: SCD's Lines/Catheters IV Catheter Type (from Nrs): Saline Lock Assessment/Plan Chief Complaint/Hosp Course 1. Chronic obstructive pulmonary disease, stable 2. Clostridium difficile colitis. Continue Flagyl 3. History of cerebrovascular accident. No acute issues 4. Paroxysmal atrial fibrillation with rapid ventricular rate. Hold any blood thinners at this time secondary to hematuria. 5. Hematuria -Urology following, Continue bladder irrigation 6. Neurogenic bladder- Continue Ferreira. 7. Chronic kidney disease III- stable. 8. Diabetes type 2- stable PPx- SCD's Dispo- Have D/C'd to [facility] but bed pending Problems: Subjective 24 Hr Interval Summary Subjective hx not possible: pt non-verbal Exam/Review of Systems Vital Signs Vitals Vital Signs Date Time Temp Pulse Resp B/P Pulse Ox O2 Delivery O2 Flow Rate FiO2 08/22/16 15:02 120 32 93 T Tube 5.0 28 08/22/16 11:58 98.0 138/65 Intake and Output 08/21/16 08/21/16 08/22/16 15:00 23:00 07:00 Intake Total 6000 ml 350 ml 5350 ml Output Total 8000 ml 1900 ml 4500 ml Balance -2000 ml -1550 ml 850 ml Exam Constitutional: non-verbal Respiratory: clear to auscultation Cardiovascular: regular rate and rhythm Gastrointestinal: soft, No distended Musculoskeletal: nl extremities to inspection Results Result Diagram: 08/21/16 0556 08/22/16 0640 Results 24 hrs Laboratory Tests Test 08/21/16 17:11 08/21/16 22:03 08/22/16 06:17 08/22/16 06:40 Bedside Glucose 97 106 90 Anion Gap 14 Blood Urea Nitrogen 19 Calcium Level 8.5 Carbon Dioxide Level 21 Chloride Level 111 H Creatinine 0.99 Glucose Level 73 Magnesium Level 1.8 Phosphorus Level 2.6 Potassium Level 3.7 Sodium Level 142 Test 08/22/16 08:01 08/22/16 11:44 Bedside Glucose 83 101 Medications Medications Current Medications Ondansetron HCl (Zofran Inj) 4 mg Q6H PRN IV NAUSEA AND/OR VOMITING; Start at 21:00 Acetaminophen (Tylenol Supp) 650 mg Q4H PRN PA PAIN LEVEL 1-3 OR FEVER; Start 08/16/16 at 21:00 Morphine Sulfate (morphine) 2 mg Q4H PRN IV PAIN LEVEL 7-10 Last administered on 08/17/16 12:09; Admin Dose 2 MG; Start 08/16/16 at 21:00 Lorazepam (Ativan) 1 mg Q2H PRN IV ANXIETY Last administered on 08/20/16 20:28 ; Admin Dose 1 MG; Start 08/16/16 at 21:00 Bisacodyl (Dulcolax Supp) 10 mg DAILY PRN [place] CONSTIPATION; Start 08/16/16 at 21 :00 Insulin Aspart (Novolog Insulin Pen) NOVOLOG *MILD* ALGORI... Q4 SC Last administered on 08/18/16 13:24; Admin Dose 1 UNIT; Start 08/16/16 at 21:30 Chlorhexidine Gluconate (Peridex) 15 ml Q12 MM Last administered on 08/22/16 08:39; Admin Dose 15 ML; Start 08/16/16 at 21:00 Digoxin (Digoxin) 0.125 mg DAILY@13 GTB Last administered on 08/22/16 13:18; Admin Dose 0.125 MG; Start 08/17/16 at 13:00 Doxazosin Mesylate (Cardura) 4 mg HS GTB Last administered on 08/21/16 22:01; Admin Dose 4 MG; Start 08/16/16 at 22:00 Ferrous Sulfate (Feosol Liquid Cup) 300 mg DAILY GTB Last administered on 08:39; Admin Dose 300 MG; Start 08/17/16 at 09:00 Miscellaneous Information 1 ea NOTE XX ; Start 08/16/16 at 21:30 Glucose (Glutose) 15 gm Q15M PRN PO DECREASED GLUCOSE; Start 08/16/16 at 21:30 Glucose (Glutose) 22.5 gm Q15M PRN PO DECREASED GLUCOSE; Start 08/16/16 at 21: 30 Dextrose (D50w Syringe) 25 ml Q15M PRN IV DECREASED GLUCOSE; Start 08/16/16 at 21:30 Dextrose (D50w Syringe) 50 ml Q15M PRN IV DECREASED GLUCOSE; Start 08/16/16 at 21:30 Glucagon (Glucagen) 1 mg Q15M PRN IM DECREASED GLUCOSE; Start 08/16/16 at 21:30 Glucose (Glutose) 15 gm Q15M PRN BUCCAL DECREASED GLUCOSE; Start 08/16/16 at 21 :30 Metronidazole (Flagyl) 500 mg Q8 GTB Last administered on 08/22/16 13:17; Admin Dose 500 MG; Start 08/17/16 at 22:00 Lansoprazole (Prevacid) 30 mg DAILY@06 GTB Last administered on 08/22/16 06:23 ; Admin Dose 30 MG; Start 08/18/16 at 06:00 Linagliptin (Tradjenta) 5 mg DAILY PEG Last administered on 08/22/16 08:39; Admin Dose 5 MG; Start 08/19/16 at 09:00 Diltiazem HCl (Cardizem) 30 mg Q6 GTB Last administered on 08/22/16 13:17; Admin Dose 30 MG; Start 08/20/16 at 12:00 ISIS BATISTA Aug 22, 2016 15:33
--- NOTE | 2016-08-22 16:18 | CONS ---
Date/Time of Note Date/Time of Note DATE: 08/22/16 TIME: 16:15 Assessment/Plan Assessment/Plan Additional Assessment/Plan Paroxysmal atrial fibrillation Paroxysmal supraventricular tachycardia Hematuria Preserved ejection fraction Respiratory failure status post tracheostomy History of CVA -Heart rate appears stable on telemetry with episodes of rapid ventricular rates , would increase dose of Cardizem and blood pressure tolerates. No anticoagulation at the current time given hematuria. Consultation Date/Type/Reason Admit Date/Time Aug 16, 2016 at 20:13 Initial Consult Date Type of Consultation: cv 24 HR Interval Summary Free Text/Dictation Patient denies chest pain, shortness of breath or palpitations Exam/Review of Systems Vital Signs Vitals Vital Signs Date Time Temp Pulse Resp B/P Pulse Ox O2 Delivery O2 Flow Rate FiO2 08/22/16 16:05 98.5 105 19 169/89 96 08/22/16 16:01 Aerosol 5.0 28 T Tube Intake and Output 08/21/16 08/21/16 08/22/16 15:00 23:00 07:00 Intake Total 6000 ml 350 ml 5350 ml Output Total 8000 ml 1900 ml 4500 ml Balance -2000 ml -1550 ml 850 ml Exam No apparent distress Constitutional: alert, oriented Neck: other (tracheostomy) Cardiovascular: irregular rhythm, other (S1-S2 heard) Gastrointestinal: bowel sounds, non-tender, soft Extremities: other (no edema) Results Result Diagram: 08/21/16 0556 08/22/16 0640 Results 24 hrs Laboratory Tests Test 08/21/16 17:11 08/21/16 22:03 08/22/16 06:17 08/22/16 06:40 Bedside Glucose 97 106 90 Anion Gap 14 Blood Urea Nitrogen 19 Calcium Level 8.5 Carbon Dioxide Level 21 Chloride Level 111 H Creatinine 0.99 Glucose Level 73 Magnesium Level 1.8 Phosphorus Level 2.6 Potassium Level 3.7 Sodium Level 142 Test 08/22/16 08:01 08/22/16 11:44 Bedside Glucose 83 101 Medications Medications Current Medications Ondansetron HCl (Zofran Inj) 4 mg Q6H PRN IV NAUSEA AND/OR VOMITING; Start at 21:00 Acetaminophen (Tylenol Supp) 650 mg Q4H PRN [place] PAIN LEVEL 1-3 OR FEVER; Start 08/16/16 at 21:00 Morphine Sulfate (morphine) 2 mg Q4H PRN IV PAIN LEVEL 7-10 Last administered on 08/17/16 12:09; Admin Dose 2 MG; Start 08/16/16 at 21:00 Lorazepam (Ativan) 1 mg Q2H PRN IV ANXIETY Last administered on 08/20/16 20:28 ; Admin Dose 1 MG; Start 08/16/16 at 21:00 Bisacodyl (Dulcolax Supp) 10 mg DAILY PRN [place] CONSTIPATION; Start 08/16/16 at 21 :00 Insulin Aspart (Novolog Insulin Pen) NOVOLOG *MILD* ALGORI... Q4 SC Last administered on 08/18/16 13:24; Admin Dose 1 UNIT; Start 08/16/16 at 21:30 Chlorhexidine Gluconate (Peridex) 15 ml Q12 MM Last administered on 08/22/16 08:39; Admin Dose 15 ML; Start 08/16/16 at 21:00 Digoxin (Digoxin) 0.125 mg DAILY@13 GTB Last administered on 08/22/16 13:18; Admin Dose 0.125 MG; Start 08/17/16 at 13:00 Doxazosin Mesylate (Cardura) 4 mg HS GTB Last administered on 08/21/16 22:01; Admin Dose 4 MG; Start 08/16/16 at 22:00 Ferrous Sulfate (Feosol Liquid Cup) 300 mg DAILY GTB Last administered on 08:39; Admin Dose 300 MG; Start 08/17/16 at 09:00 Miscellaneous Information 1 ea NOTE XX ; Start 08/16/16 at 21:30 Glucose (Glutose) 15 gm Q15M PRN PO DECREASED GLUCOSE; Start 08/16/16 at 21:30 Glucose (Glutose) 22.5 gm Q15M PRN PO DECREASED GLUCOSE; Start 08/16/16 at 21: 30 Dextrose (D50w Syringe) 25 ml Q15M PRN IV DECREASED GLUCOSE; Start 08/16/16 at 21:30 Dextrose (D50w Syringe) 50 ml Q15M PRN IV DECREASED GLUCOSE; Start 08/16/16 at 21:30 Glucagon (Glucagen) 1 mg Q15M PRN IM DECREASED GLUCOSE; Start 08/16/16 at 21:30 Glucose (Glutose) 15 gm Q15M PRN BUCCAL DECREASED GLUCOSE; Start 08/16/16 at 21 :30 Metronidazole (Flagyl) 500 mg Q8 GTB Last administered on 08/22/16 13:17; Admin Dose 500 MG; Start 08/17/16 at 22:00 Lansoprazole (Prevacid) 30 mg DAILY@06 GTB Last administered on 08/22/16 06:23 ; Admin Dose 30 MG; Start 08/18/16 at 06:00 Linagliptin (Tradjenta) 5 mg DAILY PEG Last administered on 08/22/16 08:39; Admin Dose 5 MG; Start 08/19/16 at 09:00 Diltiazem HCl (Cardizem) 30 mg Q6 GTB Last administered on 08/22/16 13:17; Admin Dose 30 MG; Start 08/20/16 at 12:00 Ervin Ceja DO Aug 22, 2016 16:18
[2016-08-22] MEDS ORDERED: MAGNESIUM SULFATE 2 GM/50 ML 50 ML IVPB ONE (16:30)
[2016-08-22] MEDS ORDERED: POTASSIUM CHLORIDE 20 MEQ POWDER FOR ORAL SOLN NGT ONE (16:30)
--- NOTE | 2016-08-22 16:49 | CONS ---
Date/Time of Note Date/Time of Note DATE: 08/22/16 TIME: 16:48 Consult Date/Type/Reason Admit Date/Time Aug 16, 2016 at 20:13 Type of Consultation: Pulm Subjective Remains stable. Objective Vital Signs Date Time Temp Pulse Resp B/P Pulse Ox O2 Delivery O2 Flow Rate FiO2 08/22/16 16:05 98.5 105 19 169/89 96 08/22/16 16:01 Aerosol 5.0 28 T Tube Intake and Output 08/21/16 08/21/16 08/22/16 15:00 23:00 07:00 Intake Total 6000 ml 350 ml 5350 ml Output Total 8000 ml 1900 ml 4500 ml Balance -2000 ml -1550 ml 850 ml Results/Medications Result Diagram: 08/21/16 0556 08/22/16 0640 Results 24 hrs Laboratory Tests Test 08/21/16 17:11 08/21/16 22:03 08/22/16 06:17 08/22/16 06:40 Bedside Glucose 97 106 90 Anion Gap 14 Blood Urea Nitrogen 19 Calcium Level 8.5 Carbon Dioxide Level 21 Chloride Level 111 H Creatinine 0.99 Glucose Level 73 Magnesium Level 1.8 Phosphorus Level 2.6 Potassium Level 3.7 Sodium Level 142 Test 08/22/16 08:01 08/22/16 11:44 Bedside Glucose 83 101 Medications Current Medications Ondansetron HCl (Zofran Inj) 4 mg Q6H PRN IV NAUSEA AND/OR VOMITING; Start at 21:00 Acetaminophen (Tylenol Supp) 650 mg Q4H PRN PA PAIN LEVEL 1-3 OR FEVER; Start 08/16/16 at 21:00 Morphine Sulfate (morphine) 2 mg Q4H PRN IV PAIN LEVEL 7-10 Last administered on 08/17/16 12:09; Admin Dose 2 MG; Start 08/16/16 at 21:00 Lorazepam (Ativan) 1 mg Q2H PRN IV ANXIETY Last administered on 08/20/16 20:28 ; Admin Dose 1 MG; Start 08/16/16 at 21:00 Bisacodyl (Dulcolax Supp) 10 mg DAILY PRN PA CONSTIPATION; Start 08/16/16 at 21 :00 Insulin Aspart (Novolog Insulin Pen) NOVOLOG *MILD* ALGORI... Q4 SC Last administered on 08/18/16 13:24; Admin Dose 1 UNIT; Start 08/16/16 at 21:30 Chlorhexidine Gluconate (Peridex) 15 ml Q12 MM Last administered on 08/22/16 08:39; Admin Dose 15 ML; Start 08/16/16 at 21:00 Digoxin (Digoxin) 0.125 mg DAILY@13 GTB Last administered on 08/22/16 13:18; Admin Dose 0.125 MG; Start 08/17/16 at 13:00 Doxazosin Mesylate (Cardura) 4 mg HS GTB Last administered on 08/21/16 22:01; Admin Dose 4 MG; Start 08/16/16 at 22:00 Ferrous Sulfate (Feosol Liquid Cup) 300 mg DAILY GTB Last administered on 08:39; Admin Dose 300 MG; Start 08/17/16 at 09:00 Miscellaneous Information 1 ea NOTE XX ; Start 08/16/16 at 21:30 Glucose (Glutose) 15 gm Q15M PRN PO DECREASED GLUCOSE; Start 08/16/16 at 21:30 Glucose (Glutose) 22.5 gm Q15M PRN PO DECREASED GLUCOSE; Start 08/16/16 at 21: 30 Dextrose (D50w Syringe) 25 ml Q15M PRN IV DECREASED GLUCOSE; Start 08/16/16 at 21:30 Dextrose (D50w Syringe) 50 ml Q15M PRN IV DECREASED GLUCOSE; Start 08/16/16 at 21:30 Glucagon (Glucagen) 1 mg Q15M PRN IM DECREASED GLUCOSE; Start 08/16/16 at 21:30 Glucose (Glutose) 15 gm Q15M PRN BUCCAL DECREASED GLUCOSE; Start 08/16/16 at 21 :30 Metronidazole (Flagyl) 500 mg Q8 GTB Last administered on 08/22/16 13:17; Admin Dose 500 MG; Start 08/17/16 at 22:00 Lansoprazole (Prevacid) 30 mg DAILY@06 GTB Last administered on 08/22/16 06:23 ; Admin Dose 30 MG; Start 08/18/16 at 06:00 Linagliptin (Tradjenta) 5 mg DAILY PEG Last administered on 08/22/16 08:39; Admin Dose 5 MG; Start 08/19/16 at 09:00 Diltiazem HCl 60 mg 60 mg Q8 GTB ; Start 08/22/16 at 22:00 Magnesium Sulfate (Magnesium Sulfate 2 Gm/50 ml) 50 ml @ 25 mls/hr ONCE ONCE IVPB ; Start 08/22/16 at 16:30; Stop 08/22/16 at 18:29 Assessment/Plan Chief Complaint/Hosp Course IMPRESSION: 1. Chronic respiratory failure with tracheostomy. 2. Significant hematuria, pending further workup and recommendations. Resolving hematuria 3. Significant anemia, likely secondary to hematuria 4. Paroxysmal atrial fibrillation complicated by supraventricular tachycardia, now in normal sinus rhythm. PLAN: 1. Status post transfusion of packed red blood cells monitor H&H 2. Continue cool aerosol. 3. Tube feeding/free H2O 4. Speech therapy eval 5. Urology recs. Transfer back to [facility] Problems: MUNIR DESHPANDE MD, [facility] Aug 22, 2016 16:49
--- NOTE | 2016-08-22 17:40 | CONS ---
Date/Time of Note Date/Time of Note DATE: 08/22/16 TIME: 17:39 Assessment/Plan Assessment/Plan Chief Complaint/Hosp Course SUBJECTIVE: No changes overnight. No fevers. The patient is awake, looks comfortable, no fevers ANTIMICROBIALS: Flagyl per G-tube. INDWELLINGS: Trach, PEG, Ferreira. PHYSICAL EXAMINATION: GENERAL: This is a fragile, elderly man, who is awake, noncommunicative and in no distress. HEENT: Head atraumatic, normocephalic. Sclerae are anicteric. Buccal mucosa dry. NECK: Supple. Tracheostomy present. CHEST: Chest rise is symmetrical. Breath sounds diminished to the bases. HEART: S1, S2. ABDOMEN: Soft. Bowel tones present. EXTREMITIES: With trace edema. ASSESSMENT: 1. Gross hematuria==> resolved. Urology follows. 2. Atrial fibrillation, rate controlled 3. Resolving Clostridium difficile colitis. 4. Status post urinary tract infection. 5. Chronic respiratory failure. 6. Dysphagia. 7. Diabetes. Blood sugar below 180. PLAN: The patient remains stable, still with loose stools, no fevers, continue the present care, antibiotics. Follow recommendation of specialists. Dw staff Problems: Consultation Date/Type/Reason Admit Date/Time Aug 16, 2016 at 20:13 Type of Consultation: ID Exam/Review of Systems Vital Signs Vitals Vital Signs Date Time Temp Pulse Resp B/P Pulse Ox O2 Delivery O2 Flow Rate FiO2 08/22/16 17:00 109 08/22/16 16:05 98.5 19 169/89 96 08/22/16 16:01 Aerosol 5.0 28 T Tube Intake and Output 08/21/16 08/21/16 08/22/16 15:00 23:00 07:00 Intake Total 6000 ml 350 ml 5350 ml Output Total 8000 ml 1900 ml 4500 ml Balance -2000 ml -1550 ml 850 ml Results Result Diagram: 08/21/16 0556 08/22/16 0640 Results 24 hrs Laboratory Tests Test 08/21/16 22:03 08/22/16 06:17 08/22/16 06:40 08/22/16 08:01 Bedside Glucose 106 90 83 Anion Gap 14 Blood Urea Nitrogen 19 Calcium Level 8.5 Carbon Dioxide Level 21 Chloride Level 111 H Creatinine 0.99 Glucose Level 73 Magnesium Level 1.8 Phosphorus Level 2.6 Potassium Level 3.7 Sodium Level 142 Test 08/22/16 11:44 Bedside Glucose 101 Medications Medications Current Medications Ondansetron HCl (Zofran Inj) 4 mg Q6H PRN IV NAUSEA AND/OR VOMITING; Start at 21:00 Acetaminophen (Tylenol Supp) 650 mg Q4H PRN [place] PAIN LEVEL 1-3 OR FEVER; Start 08/16/16 at 21:00 Morphine Sulfate (morphine) 2 mg Q4H PRN IV PAIN LEVEL 7-10 Last administered on 08/17/16 12:09; Admin Dose 2 MG; Start 08/16/16 at 21:00 Lorazepam (Ativan) 1 mg Q2H PRN IV ANXIETY Last administered on 08/20/16 20:28 ; Admin Dose 1 MG; Start 08/16/16 at 21:00 Bisacodyl (Dulcolax Supp) 10 mg DAILY PRN ME CONSTIPATION; Start 08/16/16 at 21 :00 Insulin Aspart (Novolog Insulin Pen) NOVOLOG *MILD* ALGORI... Q4 SC Last administered on 08/18/16 13:24; Admin Dose 1 UNIT; Start 08/16/16 at 21:30 Chlorhexidine Gluconate (Peridex) 15 ml Q12 MM Last administered on 08/22/16 08:39; Admin Dose 15 ML; Start 08/16/16 at 21:00 Digoxin (Digoxin) 0.125 mg DAILY@13 GTB Last administered on 08/22/16 13:18; Admin Dose 0.125 MG; Start 08/17/16 at 13:00 Doxazosin Mesylate (Cardura) 4 mg HS GTB Last administered on 08/21/16 22:01; Admin Dose 4 MG; Start 08/16/16 at 22:00 Ferrous Sulfate (Feosol Liquid Cup) 300 mg DAILY GTB Last administered on 08:39; Admin Dose 300 MG; Start 08/17/16 at 09:00 Miscellaneous Information 1 ea NOTE XX ; Start 08/16/16 at 21:30 Glucose (Glutose) 15 gm Q15M PRN PO DECREASED GLUCOSE; Start 08/16/16 at 21:30 Glucose (Glutose) 22.5 gm Q15M PRN PO DECREASED GLUCOSE; Start 08/16/16 at 21: 30 Dextrose (D50w Syringe) 25 ml Q15M PRN IV DECREASED GLUCOSE; Start 08/16/16 at 21:30 Dextrose (D50w Syringe) 50 ml Q15M PRN IV DECREASED GLUCOSE; Start 08/16/16 at 21:30 Glucagon (Glucagen) 1 mg Q15M PRN IM DECREASED GLUCOSE; Start 08/16/16 at 21:30 Glucose (Glutose) 15 gm Q15M PRN BUCCAL DECREASED GLUCOSE; Start 08/16/16 at 21 :30 Metronidazole (Flagyl) 500 mg Q8 GTB Last administered on 08/22/16 13:17; Admin Dose 500 MG; Start 08/17/16 at 22:00 Lansoprazole (Prevacid) 30 mg DAILY@06 GTB Last administered on 08/22/16 06:23 ; Admin Dose 30 MG; Start 08/18/16 at 06:00 Linagliptin (Tradjenta) 5 mg DAILY PEG Last administered on 08/22/16 08:39; Admin Dose 5 MG; Start 08/19/16 at 09:00 Diltiazem HCl 60 mg 60 mg Q8 GTB ; Start 08/22/16 at 22:00 Magnesium Sulfate (Magnesium Sulfate 2 Gm/50 ml) 50 ml @ 25 mls/hr ONCE ONCE IVPB Last administered on 08/22/16 17:36; Admin Dose 25 MLS/HR; Start at 16:30; Stop 08/22/16 at 18:29 ADITYA CALLAHAN NP Aug 22, 2016 17:39
[2016-08-22] MEDS: DOXAZOSIN 4 MG TAB GTB SCH (21:22)
[2016-08-22] MEDS: DILTIAZEM 60 MG TAB GTB SCH (21:23)
[2016-08-23] VITALS (11 sets, daily range): BP systolic 118–127; BP diastolic 62–80; PULSE 83–92; RESP 20–86
[2016-08-23] MEDS: INSULIN ASPART [NOVOLOG] 3 ML PEN SC SCH ×6 (01:00→21:00)
[2016-08-23] MEDS: LANSOPRAZOLE 30 MG CAP GTB SCH (05:57)
[2016-08-23] MEDS: DILTIAZEM 60 MG TAB GTB SCH ×3 (05:57→21:47)
[2016-08-23] MEDS: metroNIDAZOLE 500 MG TAB GTB SCH ×3 (05:57→21:45)
[2016-08-23 06:16] LABS: BASOPHILS % 0.2 % (0.0-2.0); EOSINOPHILS # 0.3 10^3/ul (0.0-0.5); EOSINOPHILS % 2.9 % (0.0-7.0); HEMATOCRIT 32.6 % (42.0-52.0); HEMOGLOBIN 10.8 g/dl (14.0-18.0); LYMPHOCYTES # 1.2 10^3/ul (0.8-2.9); MEAN CORPUSCULAR HEMOGLOBIN 28.8 pg (29.0-33.0); MEAN CORPUSCULAR HGB CONC 33.3 g/dl (32.0-37.0); MEAN CORPUSCULAR VOLUME 86.6 fl (82.0-101.0); MEAN PLATELET VOLUME 8.7 fl (7.4-10.4); MONOCYTE # 0.8 10^3/ul (0.3-0.9); MONOCYTES % 7.9 % (0.0-11.0); PLATELET COUNT 359 10^3/UL (140-440); RED BLOOD COUNT 3.76 10^6/ul (4.70-6.10); RED CELL DISTRIBUTION WIDTH 17.7 % (11.5-14.5); UNCORRECTED WBC 10.4 10^3/ul (4.8-10.8); WHITE BLOOD COUNT 10.4 10^3/ul (4.8-10.8)
[2016-08-23 06:38] LABS: CONDITION 1; LH ANALYZER COMMENTS 1
[2016-08-23] MEDS: FERROUS SULFATE 60 MG/ML 5ML CUP GTB SCH (09:27)
[2016-08-23] MEDS: LINAGLIPTIN 5 MG TABLET PEG SCH (09:27)
[2016-08-23] MEDS: CHLORHEXIDINE GLUCONATE 15 ML UD CUP MM SCH ×2 (09:27→21:48)
--- NOTE | 2016-08-23 11:25 | PN ---
DATE: 08/23/2016 SUBJECTIVE: The patient is stable, no acute events overnight. No fevers, chills, nausea, vomiting, no shortness of breath. OBJECTIVE: VITAL SIGNS: Blood pressure 126/80, pulse 86, temperature 99.5. HEENT: Head is normocephalic. NECK: Supple. HEART: Regular rate. LUNGS: Show diminished breath sounds at the base. ABDOMEN: Soft, nontender to palpation. No rebound or guarding. EXTREMITIES: Negative for clubbing, cyanosis, no edema. DERMATOLOGIC: No rashes. MUSCULOSKELETAL: No joint effusions. NEUROLOGIC: No change in exam. MEDICATIONS: The patient's medications have been reviewed. ASSESSMENT AND PLAN: 1. Nonoliguric acute kidney injury on top of chronic kidney disease, stage IIIB. Etiology of acute kidney injury is secondary to acute tubular necrosis. Renal function has improved, currently below baseline. Will continue current treatment plan, supportive care, renally dose all meds. 2. Hypernatremia, improved. Continue free water flushes. 3. Gross hematuria, improving. Follow up with urology. 4. Anemia. Continue to monitor H and H levels. 5. Chronic respiratory failure, status post trach. Continue medical management. 6. Dysphagia. Status post PEG tube tube feeding. 7. Chronic encephalopathy. No change. 8. Hypertension. Continue current blood pressure regimen. 9. Diabetes, continue Accu-Cheks and sliding scale. 10. Atrial fibrillation, rate controlled. Continue medical management and follow up with cardiolog y. 11. Clostridium difficile. Continue Flagyl. Dictated By: JOSÉ BIGGS/GENOVEVA Conf#: [id number] DID#: [id number]
--- NOTE | 2016-08-23 11:33 | CONS ---
Date/Time of Note Date/Time of Note DATE: 08/23/16 TIME: 11:29 Assessment/Plan Assessment/Plan Additional Assessment/Plan Assessment and recommendations; 1. Chronic respiratory failure currently doing fairly well on T-piece. Next 2. Atrial fibrillation with history of STD. 3. Hematuria with interval improvement currently getting bladder irrigation. 4. Anemia with stable hematocrit now. Continue current supportive care. Consultation Date/Type/Reason Admit Date/Time Aug 16, 2016 at 20:13 Initial Consult Date Type of Consultation: ID [id number] HR Interval Summary Free Text/Dictation Patient's condition is stable. Patient is awake and responds appropriately by lip syncing and eye movements. Unable to move any extremities. General examination; elderly male, on T piece via tracheostomy. Currently in no distress. Exam/Review of Systems Vital Signs Vitals Vital Signs Date Time Temp Pulse Resp B/P Pulse Ox O2 Delivery O2 Flow Rate FiO2 08/23/16 09:05 96 5.0 28 08/23/16 08:30 86 08/23/16 05:18 99.5 86 126/80 08/23/16 04:45 Aerosol T Tube Intake and Output 08/22/16 08/22/16 08/23/16 15:00 23:00 07:00 Intake Total 5350 ml 5350 ml Output Total 4300 ml 4300 ml Balance 1050 ml 1050 ml Exam HEENT examination; supple neck, tracheostomy in place. No neck masses. No thyromegaly. No neck bruits. He does not multiple carious teeth. With the lower jaw being mostly edentulous. Chest examination; diminished breath sounds bilaterally. S1-S2 audible, irregular rhythm. Next Abdomen examination; soft, nondistended. PEG tube in place. Bowel sounds audible. No organomegaly felt. Extremity examination; no peripheral edema. Pulses 1+ bilaterally. [employer] examination; patient is awake, follows simple commands like mouth opening but is unable to move any extremities. Results Result Diagram: 08/23/16 0535 08/22/16 0640 Results 24 hrs Laboratory Tests Test 08/22/16 11:44 08/22/16 17:34 08/22/16 21:17 08/23/16 05:35 Bedside Glucose 101 118 109 Basophils # 0.0 Basophils % 0.2 Blood Morphology Comment Eosinophils # 0.3 Eosinophils % 2.9 Hematocrit 32.6 L Hemoglobin 10.8 L Lymphocytes # 1.2 Lymphocytes % 12.0 L Mean Corpuscular Hemoglobin 28.8 L Mean Corpuscular Hemoglobin Concent 33.3 Mean Corpuscular Volume 86.6 Mean Platelet Volume 8.7 Monocytes # 0.8 Monocytes % 7.9 Neutrophils # 8.0 H Neutrophils % 77.0 Nucleated Red Blood Cells # 0.0 Nucleated Red Blood Cells % 0.0 Platelet Count 359 Red Blood Count 3.76 L Red Cell Distribution Width 17.7 H White Blood Count 10.4 Test 08/23/16 08:29 Bedside Glucose 127 Medications Medications Current Medications Ondansetron HCl (Zofran Inj) 4 mg Q6H PRN IV NAUSEA AND/OR VOMITING; Start at 21:00 Acetaminophen (Tylenol Supp) 650 mg Q4H PRN [place] PAIN LEVEL 1-3 OR FEVER; Start 08/16/16 at 21:00 Morphine Sulfate (morphine) 2 mg Q4H PRN IV PAIN LEVEL 7-10 Last administered on 08/17/16 12:09; Admin Dose 2 MG; Start 08/16/16 at 21:00 Lorazepam (Ativan) 1 mg Q2H PRN IV ANXIETY Last administered on 08/20/16 20:28 ; Admin Dose 1 MG; Start 08/16/16 at 21:00 Bisacodyl (Dulcolax Supp) 10 mg DAILY PRN [place] CONSTIPATION; Start 08/16/16 at 21 :00 Insulin Aspart (Novolog Insulin Pen) NOVOLOG *MILD* ALGORI... Q4 SC Last administered on 08/18/16 13:24; Admin Dose 1 UNIT; Start 08/16/16 at 21:30 Chlorhexidine Gluconate (Peridex) 15 ml Q12 MM Last administered on 08/23/16 09 :27; Admin Dose 15 ML; Start 08/16/16 at 21:00 Digoxin (Digoxin) 0.125 mg DAILY@13 GTB Last administered on 08/22/16 13:18; Admin Dose 0.125 MG; Start 08/17/16 at 13:00 Doxazosin Mesylate (Cardura) 4 mg HS GTB Last administered on 08/22/16 21:22; Admin Dose 4 MG; Start 08/16/16 at 22:00 Ferrous Sulfate (Feosol Liquid Cup) 300 mg DAILY GTB Last administered on 09:27; Admin Dose 300 MG; Start 08/17/16 at 09:00 Miscellaneous Information 1 ea NOTE XX ; Start 08/16/16 at 21:30 Glucose (Glutose) 15 gm Q15M PRN PO DECREASED GLUCOSE; Start 08/16/16 at 21:30 Glucose (Glutose) 22.5 gm Q15M PRN PO DECREASED GLUCOSE; Start 08/16/16 at 21: 30 Dextrose (D50w Syringe) 25 ml Q15M PRN IV DECREASED GLUCOSE; Start 08/16/16 at 21:30 Dextrose (D50w Syringe) 50 ml Q15M PRN IV DECREASED GLUCOSE; Start 08/16/16 at 21:30 Glucagon (Glucagen) 1 mg Q15M PRN IM DECREASED GLUCOSE; Start 08/16/16 at 21:30 Glucose (Glutose) 15 gm Q15M PRN BUCCAL DECREASED GLUCOSE; Start 08/16/16 at 21 :30 Metronidazole (Flagyl) 500 mg Q8 GTB Last administered on 08/23/16 05:57; Admin Dose 500 MG; Start 08/17/16 at 22:00 Lansoprazole (Prevacid) 30 mg DAILY@06 GTB Last administered on 08/23/16 05:57 ; Admin Dose 30 MG; Start 08/18/16 at 06:00 Linagliptin (Tradjenta) 5 mg DAILY PEG Last administered on 08/23/16 09:27; Admin Dose 5 MG; Start 08/19/16 at 09:00 Diltiazem HCl (Cardizem) 60 mg Q8 GTB Last administered on 08/23/16 05:57; Admin Dose 60 MG; Start 08/22/16 at 22:00 JORGE ROBLES Aug 23, 2016 11:33
--- NOTE | 2016-08-23 13:17 | PN ---
DATE: 08/23/2016 SUBJECTIVE: Urinary retention, gross hematuria and urinary tract infection. The patient himself is on a respirator and not able to give any complaints; however, as one touches his lower abdomen he r eacts in pain and indeed his bladder is distended and there was some blood in the drainage tubing an d it was not the Ferreira catheter was not draining. It appears that the nurse during the night for so me reason, the patient was voiding around the catheter and they put towels rather than checking the irrigation and checking to make sure that the catheter is draining and is not blocked. OBJECTIVE: His temperature is 99.5, pulse is 86. The respiration is 20 and blood pressure 126/80. Again, the bladder was distended and the Ferreira catheter was not draining, so I did go ahead and jenn ve the old Ferreira catheter stop the irrigation and inserted a new 26-Portuguese 3-way Ferreira catheter and irrigated the bladder. I took out the blood clots that were blocking the catheter until at the end t he irrigation was coming out freely without any problem. So, continuous bladder irrigation was resu med. LABORATORY DATA: CBC today shows a white count of 10.4, hemoglobin 10.8, hematocrit 32.6. BUN is 1 9, creatinine 0.99. IMPRESSION: Urinary retention secondary to occlusion blockage of the Ferreira catheter by blood clots. PLAN: I did hand irrigate it, changed the Ferreira catheter and inserted a new one and irrigated all t he clots out and resumed the continuous bladder irrigation. Dictated By: TANA DUBOIS/GENOVEVA Conf#: [id number] DID#: [id number]
[2016-08-23] MEDS: DIGOXIN 0.125 MG TAB GTB SCH (13:54)
--- NOTE | 2016-08-23 15:21 | PN ---
Date/Time of Note Date/Time of Note DATE: 08/23/16 TIME: 15:20 Assessment/Plan VTE Prophylaxis VTE Prophylaxis Intervention: SCD's Lines/Catheters IV Catheter Type [facility]from [facility] [place] Assessment/Plan Chief Complaint/Hosp Course 1. Chronic obstructive pulmonary disease, stable 2. Clostridium difficile colitis. Continue Flagyl 3. History of cerebrovascular accident. No acute issues 4. Paroxysmal atrial fibrillation with rapid ventricular rate. Hold any blood thinners at this time secondary to hematuria. 5. Hematuria -Urology following, Continue bladder irrigation 6. Neurogenic bladder- Continue Ferreira. 7. Chronic kidney disease III- stable. 8. Diabetes type 2- stable PPx- SCD's Dispo- Have D/C'd to [facility] but bed pending Problems: Subjective 24 Hr Interval Summary Subjective hx not possible: pt non-verbal Exam/Review of Systems Vital Signs Vitals Vital Signs Date Time Temp Pulse Resp B/P Pulse Ox O2 Delivery O2 Flow Rate FiO2 08/23/16 15:09 98.4 82 82 126/64 96 08/23/16 09:05 5.0 28 08/23/16 04:45 Aerosol T Tube Intake and Output 08/22/16 08/22/16 08/23/16 15:00 23:00 07:00 Intake Total 5350 ml 5350 ml Output Total 4300 ml 4300 ml Balance 1050 ml 1050 ml Exam Constitutional: non-verbal Respiratory: clear to auscultation Cardiovascular: regular rate and rhythm Gastrointestinal: soft, No distended Musculoskeletal: nl extremities to inspection Results Result Diagram: 08/23/16 0535 08/22/16 0640 Results 24 hrs Laboratory Tests Test 08/22/16 17:34 08/22/16 21:17 08/23/16 05:35 08/23/16 08:29 Bedside Glucose 118 109 127 Basophils # 0.0 Basophils % 0.2 Blood Morphology Comment Eosinophils # 0.3 Eosinophils % 2.9 Hematocrit 32.6 L Hemoglobin 10.8 L Lymphocytes # 1.2 Lymphocytes % 12.0 L Mean Corpuscular Hemoglobin 28.8 L Mean Corpuscular Hemoglobin Concent 33.3 Mean Corpuscular Volume 86.6 Mean Platelet Volume 8.7 Monocytes # 0.8 Monocytes % 7.9 Neutrophils # 8.0 H Neutrophils % 77.0 Nucleated Red Blood Cells # 0.0 Nucleated Red Blood Cells % 0.0 Platelet Count 359 Red Blood Count 3.76 L Red Cell Distribution Width 17.7 H White Blood Count 10.4 Test 08/23/16 13:01 Bedside Glucose 128 Medications Medications Current Medications Ondansetron HCl (Zofran Inj) 4 mg Q6H PRN IV NAUSEA AND/OR VOMITING; Start at 21:00 Acetaminophen (Tylenol Supp) 650 mg Q4H PRN [place] PAIN LEVEL 1-3 OR FEVER; Start 08/16/16 at 21:00 Morphine Sulfate (morphine) 2 mg Q4H PRN IV PAIN LEVEL 7-10 Last administered on 08/17/16 12:09; Admin Dose 2 MG; Start 08/16/16 at 21:00 Lorazepam (Ativan) 1 mg Q2H PRN IV ANXIETY Last administered on 08/20/16 20:28 ; Admin Dose 1 MG; Start 08/16/16 at 21:00 Bisacodyl (Dulcolax Supp) 10 mg DAILY PRN [place] CONSTIPATION; Start 08/16/16 at 21 :00 Insulin Aspart (Novolog Insulin Pen) NOVOLOG *MILD* ALGORI... Q4 SC Last administered on 08/18/16 13:24; Admin Dose 1 UNIT; Start 08/16/16 at 21:30 Chlorhexidine Gluconate (Peridex) 15 ml Q12 MM Last administered on 08/23/16 09 :27; Admin Dose 15 ML; Start 08/16/16 at 21:00 Digoxin (Digoxin) 0.125 mg DAILY@13 GTB Last administered on 08/23/16 13:54; Admin Dose 0.125 MG; Start 08/17/16 at 13:00 Doxazosin Mesylate (Cardura) 4 mg HS GTB Last administered on 08/22/16 21:22; Admin Dose 4 MG; Start 08/16/16 at 22:00 Ferrous Sulfate (Feosol Liquid Cup) 300 mg DAILY GTB Last administered on 09:27; Admin Dose 300 MG; Start 08/17/16 at 09:00 Miscellaneous Information 1 ea NOTE XX ; Start 08/16/16 at 21:30 Glucose (Glutose) 15 gm Q15M PRN PO DECREASED GLUCOSE; Start 08/16/16 at 21:30 Glucose (Glutose) 22.5 gm Q15M PRN PO DECREASED GLUCOSE; Start 08/16/16 at 21: 30 Dextrose (D50w Syringe) 25 ml Q15M PRN IV DECREASED GLUCOSE; Start 08/16/16 at 21:30 Dextrose (D50w Syringe) 50 ml Q15M PRN IV DECREASED GLUCOSE; Start 08/16/16 at 21:30 Glucagon (Glucagen) 1 mg Q15M PRN IM DECREASED GLUCOSE; Start 08/16/16 at 21:30 Glucose (Glutose) 15 gm Q15M PRN BUCCAL DECREASED GLUCOSE; Start 08/16/16 at 21 :30 Metronidazole (Flagyl) 500 mg Q8 GTB Last administered on 08/23/16 13:54; Admin Dose 500 MG; Start 08/17/16 at 22:00 Lansoprazole (Prevacid) 30 mg DAILY@06 GTB Last administered on 08/23/16 05:57 ; Admin Dose 30 MG; Start 08/18/16 at 06:00 Linagliptin (Tradjenta) 5 mg DAILY PEG Last administered on 08/23/16 09:27; Admin Dose 5 MG; Start 08/19/16 at 09:00 Diltiazem HCl (Cardizem) 60 mg Q8 GTB Last administered on 08/23/16 13:54; Admin Dose 60 MG; Start 08/22/16 at 22:00 ISIS BATISTA Aug 23, 2016 15:21
--- NOTE | 2016-08-23 15:55 | CONS ---
Date/Time of Note Date/Time of Note DATE: 08/23/16 TIME: 15:54 Assessment/Plan Assessment/Plan Additional Assessment/Plan Paroxysmal atrial fibrillation Paroxysmal supraventricular tachycardia Hematuria Preserved ejection fraction Respiratory failure status post tracheostomy History of CVA -Heart rate trend improved, continue Cardizem, no anticoagulation at the current time given hematuria Consultation Date/Type/Reason Admit Date/Time Aug 16, 2016 at 20:13 Type of Consultation: cv 24 HR Interval Summary Free Text/Dictation Patient seen and examined, no cardiac issues as per nursing staff Exam/Review of Systems Vital Signs Vitals Vital Signs Date Time Temp Pulse Resp B/P Pulse Ox O2 Delivery O2 Flow Rate FiO2 08/23/16 15:09 98.4 82 82 126/64 96 08/23/16 09:05 5.0 28 08/23/16 04:45 Aerosol T Tube Intake and Output 08/22/16 08/22/16 08/23/16 15:00 23:00 07:00 Intake Total 5350 ml 5350 ml Output Total 4300 ml 4300 ml Balance 1050 ml 1050 ml Exam Follows commands, no apparent distress Constitutional: alert Head: normocephalic Neck: other (tracheostomy) Respiratory: other (course breath sounds bilaterally, no wheezing) Cardiovascular: other (S1-S2 heard), regular rate and rhythm (with occasional irregularities) Gastrointestinal: bowel sounds, non-tender, soft Extremities: edema Results Result Diagram: 08/23/16 0535 08/22/16 0640 Results 24 hrs Laboratory Tests Test 08/22/16 17:34 08/22/16 21:17 08/23/16 05:35 08/23/16 08:29 Bedside Glucose 118 109 127 Basophils # 0.0 Basophils % 0.2 Blood Morphology Comment Eosinophils # 0.3 Eosinophils % 2.9 Hematocrit 32.6 L Hemoglobin 10.8 L Lymphocytes # 1.2 Lymphocytes % 12.0 L Mean Corpuscular Hemoglobin 28.8 L Mean Corpuscular Hemoglobin Concent 33.3 Mean Corpuscular Volume 86.6 Mean Platelet Volume 8.7 Monocytes # 0.8 Monocytes % 7.9 Neutrophils # 8.0 H Neutrophils % 77.0 Nucleated Red Blood Cells # 0.0 Nucleated Red Blood Cells % 0.0 Platelet Count 359 Red Blood Count 3.76 L Red Cell Distribution Width 17.7 H White Blood Count 10.4 Test 08/23/16 13:01 Bedside Glucose 128 Medications Medications Current Medications Ondansetron HCl (Zofran Inj) 4 mg Q6H PRN IV NAUSEA AND/OR VOMITING; Start at 21:00 Acetaminophen (Tylenol Supp) 650 mg Q4H PRN [place] PAIN LEVEL 1-3 OR FEVER; Start 08/16/16 at 21:00 Morphine Sulfate (morphine) 2 mg Q4H PRN IV PAIN LEVEL 7-10 Last administered on 08/17/16 12:09; Admin Dose 2 MG; Start 08/16/16 at 21:00 Lorazepam (Ativan) 1 mg Q2H PRN IV ANXIETY Last administered on 08/20/16 20:28 ; Admin Dose 1 MG; Start 08/16/16 at 21:00 Bisacodyl (Dulcolax Supp) 10 mg DAILY PRN [place] CONSTIPATION; Start 08/16/16 at 21 :00 Insulin Aspart (Novolog Insulin Pen) NOVOLOG *MILD* ALGORI... Q4 SC Last administered on 08/18/16 13:24; Admin Dose 1 UNIT; Start 08/16/16 at 21:30 Chlorhexidine Gluconate (Peridex) 15 ml Q12 MM Last administered on 08/23/16 09 :27; Admin Dose 15 ML; Start 08/16/16 at 21:00 Digoxin (Digoxin) 0.125 mg DAILY@13 GTB Last administered on 08/23/16 13:54; Admin Dose 0.125 MG; Start 08/17/16 at 13:00 Doxazosin Mesylate (Cardura) 4 mg HS GTB Last administered on 08/22/16 21:22; Admin Dose 4 MG; Start 08/16/16 at 22:00 Ferrous Sulfate (Feosol Liquid Cup) 300 mg DAILY GTB Last administered on 09:27; Admin Dose 300 MG; Start 08/17/16 at 09:00 Miscellaneous Information 1 ea NOTE XX ; Start 08/16/16 at 21:30 Glucose (Glutose) 15 gm Q15M PRN PO DECREASED GLUCOSE; Start 08/16/16 at 21:30 Glucose (Glutose) 22.5 gm Q15M PRN PO DECREASED GLUCOSE; Start 08/16/16 at 21: 30 Dextrose (D50w Syringe) 25 ml Q15M PRN IV DECREASED GLUCOSE; Start 08/16/16 at 21:30 Dextrose (D50w Syringe) 50 ml Q15M PRN IV DECREASED GLUCOSE; Start 08/16/16 at 21:30 Glucagon (Glucagen) 1 mg Q15M PRN IM DECREASED GLUCOSE; Start 08/16/16 at 21:30 Glucose (Glutose) 15 gm Q15M PRN BUCCAL DECREASED GLUCOSE; Start 08/16/16 at 21 :30 Metronidazole (Flagyl) 500 mg Q8 GTB Last administered on 08/23/16 13:54; Admin Dose 500 MG; Start 08/17/16 at 22:00 Lansoprazole (Prevacid) 30 mg DAILY@06 GTB Last administered on 08/23/16 05:57 ; Admin Dose 30 MG; Start 08/18/16 at 06:00 Linagliptin (Tradjenta) 5 mg DAILY PEG Last administered on 08/23/16 09:27; Admin Dose 5 MG; Start 08/19/16 at 09:00 Diltiazem HCl (Cardizem) 60 mg Q8 GTB Last administered on 08/23/16 13:54; Admin Dose 60 MG; Start 08/22/16 at 22:00 Ervin Ceja DO Aug 23, 2016 15:55
--- NOTE | 2016-08-23 20:10 | CONS ---
Date/Time of Note Date/Time of Note DATE: 08/23/16 TIME: 20:07 Assessment/Plan Assessment/Plan Chief Complaint/Hosp Course SUBJECTIVE: All noted, chart reviewed. No changes overnight. No fevers. The patient is awake, looks comfortable ANTIMICROBIALS: Flagyl per G-tube. INDWELLINGS: Trach, PEG, Ferreira. PHYSICAL EXAMINATION: GENERAL: This is a fragile, elderly man, who is awake, noncommunicative and in no distress. HEENT: Head atraumatic, normocephalic. Sclerae are anicteric. Buccal mucosa dry. NECK: Supple. Tracheostomy present. CHEST: Chest rise is symmetrical. Breath sounds diminished to the bases. HEART: S1, S2. ABDOMEN: Soft. Bowel tones present. EXTREMITIES: With trace edema. ASSESSMENT: 1. Hematuria==> S/p Ferreira changed, on CBI 2. Atrial fibrillation, rate controlled 3. Resolving Clostridium difficile colitis. 4. Status post urinary tract infection. 5. Chronic respiratory failure. 6. Dysphagia. 7. Diabetes. PLAN: The patient remains stable, on CBI, follows, continue the present care , antibiotics. Follow recommendation of specialists. Dw staff Problems: Consultation Date/Type/Reason Admit Date/Time Aug 16, 2016 at 20:13 Type of Consultation: ID Exam/Review of Systems Vital Signs Vitals Vital Signs Date Time Temp Pulse Resp B/P Pulse Ox O2 Delivery O2 Flow Rate FiO2 08/23/16 17:46 96 5.0 28 08/23/16 16:34 83 08/23/16 15:09 98.4 82 126/64 08/23/16 04:45 Aerosol T Tube Intake and Output 08/22/16 08/22/16 08/23/16 15:00 23:00 07:00 Intake Total 5350 ml 5350 ml Output Total 4300 ml 4300 ml Balance 1050 ml 1050 ml Results Result Diagram: 08/23/16 0535 08/22/16 0640 Results 24 hrs Laboratory Tests Test 08/22/16 21:17 08/23/16 05:35 08/23/16 08:29 08/23/16 13:01 Bedside Glucose 109 127 128 Basophils # 0.0 Basophils % 0.2 Blood Morphology Comment Eosinophils # 0.3 Eosinophils % 2.9 Hematocrit 32.6 L Hemoglobin 10.8 L Lymphocytes # 1.2 Lymphocytes % 12.0 L Mean Corpuscular Hemoglobin 28.8 L Mean Corpuscular Hemoglobin Concent 33.3 Mean Corpuscular Volume 86.6 Mean Platelet Volume 8.7 Monocytes # 0.8 Monocytes % 7.9 Neutrophils # 8.0 H Neutrophils % 77.0 Nucleated Red Blood Cells # 0.0 Nucleated Red Blood Cells % 0.0 Platelet Count 359 Red Blood Count 3.76 L Red Cell Distribution Width 17.7 H White Blood Count 10.4 Test 08/23/16 17:11 Bedside Glucose 125 Medications Medications Current Medications Ondansetron HCl (Zofran Inj) 4 mg Q6H PRN IV NAUSEA AND/OR VOMITING; Start at 21:00 Acetaminophen (Tylenol Supp) 650 mg Q4H PRN IN PAIN LEVEL 1-3 OR FEVER; Start 08/16/16 at 21:00 Morphine Sulfate (morphine) 2 mg Q4H PRN IV PAIN LEVEL 7-10 Last administered on 08/17/16 12:09; Admin Dose 2 MG; Start 08/16/16 at 21:00 Lorazepam (Ativan) 1 mg Q2H PRN IV ANXIETY Last administered on 08/20/16 20:28 ; Admin Dose 1 MG; Start 08/16/16 at 21:00 Bisacodyl (Dulcolax Supp) 10 mg DAILY PRN IN CONSTIPATION; Start 08/16/16 at 21 :00 Insulin Aspart (Novolog Insulin Pen) NOVOLOG *MILD* ALGORI... Q4 SC Last administered on 08/18/16 13:24; Admin Dose 1 UNIT; Start 08/16/16 at 21:30 Chlorhexidine Gluconate (Peridex) 15 ml Q12 MM Last administered on 08/23/16 09 :27; Admin Dose 15 ML; Start 08/16/16 at 21:00 Digoxin (Digoxin) 0.125 mg DAILY@13 GTB Last administered on 08/23/16 13:54; Admin Dose 0.125 MG; Start 08/17/16 at 13:00 Doxazosin Mesylate (Cardura) 4 mg HS GTB Last administered on 08/22/16 21:22; Admin Dose 4 MG; Start 08/16/16 at 22:00 Ferrous Sulfate (Feosol Liquid Cup) 300 mg DAILY GTB Last administered on 09:27; Admin Dose 300 MG; Start 08/17/16 at 09:00 Miscellaneous Information 1 ea NOTE XX ; Start 08/16/16 at 21:30 Glucose (Glutose) 15 gm Q15M PRN PO DECREASED GLUCOSE; Start 08/16/16 at 21:30 Glucose (Glutose) 22.5 gm Q15M PRN PO DECREASED GLUCOSE; Start 08/16/16 at 21: 30 Dextrose (D50w Syringe) 25 ml Q15M PRN IV DECREASED GLUCOSE; Start 08/16/16 at 21:30 Dextrose (D50w Syringe) 50 ml Q15M PRN IV DECREASED GLUCOSE; Start 08/16/16 at 21:30 Glucagon (Glucagen) 1 mg Q15M PRN IM DECREASED GLUCOSE; Start 08/16/16 at 21:30 Glucose (Glutose) 15 gm Q15M PRN BUCCAL DECREASED GLUCOSE; Start 08/16/16 at 21 :30 Metronidazole (Flagyl) 500 mg Q8 GTB Last administered on 08/23/16 13:54; Admin Dose 500 MG; Start 08/17/16 at 22:00 Lansoprazole (Prevacid) 30 mg DAILY@06 GTB Last administered on 08/23/16 05:57 ; Admin Dose 30 MG; Start 08/18/16 at 06:00 Linagliptin (Tradjenta) 5 mg DAILY PEG Last administered on 08/23/16 09:27; Admin Dose 5 MG; Start 08/19/16 at 09:00 Diltiazem HCl (Cardizem) 60 mg Q8 GTB Last administered on 08/23/16 13:54; Admin Dose 60 MG; Start 08/22/16 at 22:00 ADITYA CALLAHAN NP Aug 23, 2016 20:10
[2016-08-23] MEDS: DOXAZOSIN 4 MG TAB GTB SCH (21:47)
[2016-08-24] VITALS (12 sets, daily range): BP systolic 101–131; BP diastolic 54–66; PULSE 83–100; RESP 17–20
[2016-08-24] MEDS: INSULIN ASPART [NOVOLOG] 3 ML PEN SC SCH ×6 (01:00→21:00)
[2016-08-24] MEDS: DILTIAZEM 60 MG TAB GTB SCH ×3 (06:00→23:13)
[2016-08-24] MEDS: LANSOPRAZOLE 30 MG CAP GTB SCH (06:07)
[2016-08-24] MEDS: metroNIDAZOLE 500 MG TAB GTB SCH ×3 (06:07→23:12)
[2016-08-24 08:21] LABS: BASOPHILS % 0.3 % (0.0-2.0); EOSINOPHILS # 0.4 10^3/ul (0.0-0.5); EOSINOPHILS % 3.8 % (0.0-7.0); HEMATOCRIT 29.4 % (42.0-52.0); HEMOGLOBIN 9.8 g/dl (14.0-18.0); LYMPHOCYTES # 1.4 10^3/ul (0.8-2.9); LYMPHOCYTES % 13.1 % (15.0-51.0); MEAN CORPUSCULAR HEMOGLOBIN 29.1 pg (29.0-33.0); MEAN CORPUSCULAR HGB CONC 33.3 g/dl (32.0-37.0); MEAN CORPUSCULAR VOLUME 87.4 fl (82.0-101.0); MEAN PLATELET VOLUME 8.5 fl (7.4-10.4); MONOCYTE # 0.7 10^3/ul (0.3-0.9); MONOCYTES % 6.3 % (0.0-11.0); NEUTROPHIL # 8.3 10^3/ul (1.6-7.5); NEUTROPHILS % 76.5 % (39.0-77.0); PLATELET COUNT 359 10^3/UL (140-440); RED BLOOD COUNT 3.37 10^6/ul (4.70-6.10); RED CELL DISTRIBUTION WIDTH 17.7 % (11.5-14.5); UNCORRECTED WBC 10.8 10^3/ul (4.8-10.8); WHITE BLOOD COUNT 10.8 10^3/ul (4.8-10.8)
[2016-08-24 08:29] LABS: CONDITION 1; LH ANALYZER COMMENTS 1
[2016-08-24 08:36] LABS: POTASSIUM 4.3 mmol/L (3.5-5.1)
[2016-08-24 08:38] LABS: CREATININE 1.3 mg/dl (0.61-1.24)
[2016-08-24 08:39] LABS: CALCIUM 8.7 mg/dl (8.4-10.2)
[2016-08-24 08:40] LABS: MAGNESIUM 2.1 mg/dl (1.7-2.5)
[2016-08-24] MEDS: FERROUS SULFATE 60 MG/ML 5ML CUP GTB SCH (09:44)
[2016-08-24] MEDS: LINAGLIPTIN 5 MG TABLET PEG SCH (09:44)
[2016-08-24] MEDS: CHLORHEXIDINE GLUCONATE 15 ML UD CUP MM SCH ×2 (09:44→23:12)
--- NOTE | 2016-08-24 11:56 | PN ---
DATE: 08/24/2016 SUBJECTIVE: The patient is stable, no acute events overnight. Continues to be on continuous bladde r irrigation No other events noted. OBJECTIVE: VITAL SIGNS: Blood pressure 109/57, respirations 20, pulse 95, temperature 98.9. INTAKE AND OUTPUT: Reviewed. HEENT: Head is normocephalic. NECK: Shows trach. HEART: Regular rate. LUNGS: Show diminished breath sounds at base, otherwise clear. ABDOMEN: Soft, nontender to palpation without rebound or guarding. EXTREMITIES: Negative for clubbing, cyanosis, edema. DERMATOLOGIC: No rashes. MUSCULOSKELETAL: No joint effusions. NEUROLOGIC: No change in exam. MEDICATIONS: Have been reviewed. LABORATORY DATA: Has been reviewed. No new labs. ASSESSMENT AND PLAN: 1. Nonoliguric acute kidney injury on top of chronic kidney disease, stage IIIB. Etiology of acute kidney injury is secondary to acute tubular necrosis. Renal function has improved, currently at go al placement. Continue current treatment, supportive care, renally dose medications. 2. Hyponatremia, improved. Continue free water flushes. 3. Gross hematuria improved, follow up with urology. Continue CBI. 4. Anemia, monitor hemoglobin and hematocrit levels. 5. Chronic respiratory failure, status post trach. Continue medical management. 6. Dysphagia, status post percutaneous endoscopic gastrostomy. Continue tube feed. 7. Chronic encephalopathy. No change. 8. Hypertension. Continue current blood pressure regimen. 9. Diabetes, continue Accu-Cheks and sliding scale. 10. Atrial fibrillation, rate controlled. Continue current medical management. Follow up with car diology. 11. Clostridium difficile. Continue Flagyl. Dictated By: JOSÉ BLISS DO NR/NTS Conf#: [id number] DID#: [id number]
--- NOTE | 2016-08-24 13:56 | CONS ---
Date/Time of Note Date/Time of Note DATE: 08/24/16 TIME: 13:53 Assessment/Plan Assessment/Plan Additional Assessment/Plan Assessment and recommendations; 1. Chronic respiratory failure currently doing very well on T piece 2. Colitis, improving 3. History of CVA. Continue current treatment. Consultation Date/Type/Reason Admit Date/Time Aug 16, 2016 at 20:13 Type of Consultation: ID 24 HR Interval Summary Free Text/Dictation Patient condition is stable. Awake. Currently in no distress. General examination; elderly male, on T piece. Exam/Review of Systems Vital Signs Vitals Vital Signs Date Time Temp Pulse Resp B/P Pulse Ox O2 Delivery O2 Flow Rate FiO2 08/24/16 13:34 86 08/24/16 11:38 99.5 20 101/54 95 08/24/16 11:17 5.0 28 08/24/16 04:55 Aerosol T Tube Intake and Output 08/23/16 08/23/16 08/24/16 15:00 23:00 07:00 Intake Total 6350 ml 4350 ml Output Total 6100 ml 4200 ml Balance 250 ml 150 ml Exam HEENT examination; supple neck, tracheostomy in place. He is edentulous. No neck masses. Chest examination; diminished but clear breath sounds. S1-S2 audible. Irregular rhythm. Abdomen; soft, nondistended. PEG tube in place. Bowel sounds audible. Extremity examination; no peripheral edema. CARDIOVASCULAR DISEASE SPECIALIST examination; patient is awake, responds by eye blinking. Results Result Diagram: 08/24/16 0723 08/24/16 0723 Results 24 hrs Laboratory Tests Test 08/23/16 17:11 08/23/16 23:31 08/24/16 07:23 08/24/16 09:42 Bedside Glucose 125 120 107 Anion Gap 15 Basophils # 0.0 Basophils % 0.3 Blood Morphology Comment Blood Urea Nitrogen 29 H Calcium Level 8.7 Carbon Dioxide Level 21 Chloride Level 113 H Creatinine 1.30 H Eosinophils # 0.4 Eosinophils % 3.8 Glucose Level 97 Hematocrit 29.4 L Hemoglobin 9.8 L Lymphocytes # 1.4 Lymphocytes % 13.1 L Magnesium Level 2.1 Mean Corpuscular Hemoglobin 29.1 Mean Corpuscular Hemoglobin Concent 33.3 Mean Corpuscular Volume 87.4 Mean Platelet Volume 8.5 Monocytes # 0.7 Monocytes % 6.3 Neutrophils # 8.3 H Neutrophils % 76.5 Nucleated Red Blood Cells # 0.0 Nucleated Red Blood Cells % 0.0 Phosphorus Level 3.0 Platelet Count 359 Potassium Level 4.3 Red Blood Count 3.37 L Red Cell Distribution Width 17.7 H Sodium Level 145 H White Blood Count 10.8 Test 08/24/16 11:47 Bedside Glucose 109 Medications Medications Current Medications Ondansetron HCl (Zofran Inj) 4 mg Q6H PRN IV NAUSEA AND/OR VOMITING; Start at 21:00 Acetaminophen (Tylenol Supp) 650 mg Q4H PRN MA PAIN LEVEL 1-3 OR FEVER; Start 08/16/16 at 21:00 Morphine Sulfate (morphine) 2 mg Q4H PRN IV PAIN LEVEL 7-10 Last administered on 08/17/16 12:09; Admin Dose 2 MG; Start 08/16/16 at 21:00 Lorazepam (Ativan) 1 mg Q2H PRN IV ANXIETY Last administered on 08/20/16 20:28 ; Admin Dose 1 MG; Start 08/16/16 at 21:00 Bisacodyl (Dulcolax Supp) 10 mg DAILY PRN MA CONSTIPATION; Start 08/16/16 at 21 :00 Insulin Aspart (Novolog Insulin Pen) NOVOLOG *MILD* ALGORI... Q4 SC Last administered on 08/18/16 13:24; Admin Dose 1 UNIT; Start 08/16/16 at 21:30 Chlorhexidine Gluconate (Peridex) 15 ml Q12 MM Last administered on 08/24/16 09 :44; Admin Dose 15 ML; Start 08/16/16 at 21:00 Digoxin (Digoxin) 0.125 mg DAILY@13 GTB Last administered on 08/23/16 13:54; Admin Dose 0.125 MG; Start 08/17/16 at 13:00 Doxazosin Mesylate (Cardura) 4 mg HS GTB Last administered on 08/23/16 21:47; Admin Dose 4 MG; Start 08/16/16 at 22:00 Ferrous Sulfate (Feosol Liquid Cup) 300 mg DAILY GTB Last administered on 09:44; Admin Dose 300 MG; Start 08/17/16 at 09:00 Miscellaneous Information 1 ea NOTE XX ; Start 08/16/16 at 21:30 Glucose (Glutose) 15 gm Q15M PRN PO DECREASED GLUCOSE; Start 08/16/16 at 21:30 Glucose (Glutose) 22.5 gm Q15M PRN PO DECREASED GLUCOSE; Start 08/16/16 at 21: 30 Dextrose (D50w Syringe) 25 ml Q15M PRN IV DECREASED GLUCOSE; Start 08/16/16 at 21:30 Dextrose (D50w Syringe) 50 ml Q15M PRN IV DECREASED GLUCOSE; Start 08/16/16 at 21:30 Glucagon (Glucagen) 1 mg Q15M PRN IM DECREASED GLUCOSE; Start 08/16/16 at 21:30 Glucose (Glutose) 15 gm Q15M PRN BUCCAL DECREASED GLUCOSE; Start 08/16/16 at 21 :30 Metronidazole (Flagyl) 500 mg Q8 GTB Last administered on 08/24/16 06:07; Admin Dose 500 MG; Start 08/17/16 at 22:00 Lansoprazole (Prevacid) 30 mg DAILY@06 GTB Last administered on 08/24/16 06:07 ; Admin Dose 30 MG; Start 08/18/16 at 06:00 Linagliptin (Tradjenta) 5 mg DAILY PEG Last administered on 08/24/16 09:44; Admin Dose 5 MG; Start 08/19/16 at 09:00 Diltiazem HCl (Cardizem) 60 mg Q8 GTB Last administered on 08/23/16 21:47; Admin Dose 60 MG; Start 08/22/16 at 22:00 JORGE ROBLES Aug 24, 2016 13:56
[2016-08-24] MEDS: DIGOXIN 0.125 MG TAB GTB SCH (14:16)
--- NOTE | 2016-08-24 15:42 | CONS ---
Date/Time of Note Date/Time of Note DATE: 08/24/16 TIME: 15:41 Assessment/Plan Assessment/Plan Chief Complaint/Hosp Course SUBJECTIVE: All noted, chart reviewed. No changes overnight. No fevers. The patient is sleeping, looks comfortable ANTIMICROBIALS: Flagyl per G-tube. INDWELLINGS: Trach, PEG, Ferreira. PHYSICAL EXAMINATION: GENERAL: This is a fragile, elderly man, who is awake, noncommunicative and in no distress. HEENT: Head atraumatic, normocephalic. Sclerae are anicteric. Buccal mucosa dry. NECK: Supple. Tracheostomy present. CHEST: Chest rise is symmetrical. Breath sounds diminished to the bases. HEART: S1, S2. ABDOMEN: Soft. Bowel tones present. EXTREMITIES: With trace edema. ASSESSMENT: 1. Hematuria==> S/p Ferreira changed, on CBI 2. Atrial fibrillation, rate controlled 3. Resolving Clostridium difficile colitis. 4. Status post urinary tract infection. 5. Chronic respiratory failure. 6. Dysphagia. 7. Diabetes. PLAN: The patient remains stable, continue the present care, antibiotics. Follow recommendation of specialists. Dw staff Problems: Consultation Date/Type/Reason Admit Date/Time Aug 16, 2016 at 20:13 Type of Consultation: ID 24 HR Interval Summary Subjective hx not possible: pt non-verbal Exam/Review of Systems Vital Signs Vitals Vital Signs Date Time Temp Pulse Resp B/P Pulse Ox O2 Delivery O2 Flow Rate FiO2 08/24/16 15:01 99.0 92 20 115/66 95 08/24/16 11:17 5.0 28 08/24/16 04:55 Aerosol T Tube Intake and Output 08/23/16 08/23/16 08/24/16 15:00 23:00 07:00 Intake Total 6350 ml 4350 ml Output Total 6100 ml 4200 ml Balance 250 ml 150 ml Results Result Diagram: 08/24/16 0723 08/24/16 0723 Results 24 hrs Laboratory Tests Test 08/23/16 17:11 08/23/16 23:31 08/24/16 07:23 08/24/16 09:42 Bedside Glucose 125 120 107 Anion Gap 15 Basophils # 0.0 Basophils % 0.3 Blood Morphology Comment Blood Urea Nitrogen 29 H Calcium Level 8.7 Carbon Dioxide Level 21 Chloride Level 113 H Creatinine 1.30 H Eosinophils # 0.4 Eosinophils % 3.8 Glucose Level 97 Hematocrit 29.4 L Hemoglobin 9.8 L Lymphocytes # 1.4 Lymphocytes % 13.1 L Magnesium Level 2.1 Mean Corpuscular Hemoglobin 29.1 Mean Corpuscular Hemoglobin Concent 33.3 Mean Corpuscular Volume 87.4 Mean Platelet Volume 8.5 Monocytes # 0.7 Monocytes % 6.3 Neutrophils # 8.3 H Neutrophils % 76.5 Nucleated Red Blood Cells # 0.0 Nucleated Red Blood Cells % 0.0 Phosphorus Level 3.0 Platelet Count 359 Potassium Level 4.3 Red Blood Count 3.37 L Red Cell Distribution Width 17.7 H Sodium Level 145 H White Blood Count 10.8 Test 08/24/16 11:47 Bedside Glucose 109 Medications Medications Current Medications Ondansetron HCl (Zofran Inj) 4 mg Q6H PRN IV NAUSEA AND/OR VOMITING; Start at 21:00 Acetaminophen (Tylenol Supp) 650 mg Q4H PRN MA PAIN LEVEL 1-3 OR FEVER; Start 08/16/16 at 21:00 Morphine Sulfate (morphine) 2 mg Q4H PRN IV PAIN LEVEL 7-10 Last administered on 08/17/16 12:09; Admin Dose 2 MG; Start 08/16/16 at 21:00 Lorazepam (Ativan) 1 mg Q2H PRN IV ANXIETY Last administered on 08/20/16 20:28 ; Admin Dose 1 MG; Start 08/16/16 at 21:00 Bisacodyl (Dulcolax Supp) 10 mg DAILY PRN MA CONSTIPATION; Start 08/16/16 at 21 :00 Insulin Aspart (Novolog Insulin Pen) NOVOLOG *MILD* ALGORI... Q4 SC Last administered on 08/18/16 13:24; Admin Dose 1 UNIT; Start 08/16/16 at 21:30 Chlorhexidine Gluconate (Peridex) 15 ml Q12 MM Last administered on 08/24/16 09 :44; Admin Dose 15 ML; Start 08/16/16 at 21:00 Digoxin (Digoxin) 0.125 mg DAILY@13 GTB Last administered on 08/24/16 14:16; Admin Dose 0.125 MG; Start 08/17/16 at 13:00 Doxazosin Mesylate (Cardura) 4 mg HS GTB Last administered on 08/23/16 21:47; Admin Dose 4 MG; Start 08/16/16 at 22:00 Ferrous Sulfate (Feosol Liquid Cup) 300 mg DAILY GTB Last administered on 09:44; Admin Dose 300 MG; Start 08/17/16 at 09:00 Miscellaneous Information 1 ea NOTE XX ; Start 08/16/16 at 21:30 Glucose (Glutose) 15 gm Q15M PRN PO DECREASED GLUCOSE; Start 08/16/16 at 21:30 Glucose (Glutose) 22.5 gm Q15M PRN PO DECREASED GLUCOSE; Start 08/16/16 at 21: 30 Dextrose (D50w Syringe) 25 ml Q15M PRN IV DECREASED GLUCOSE; Start 08/16/16 at 21:30 Dextrose (D50w Syringe) 50 ml Q15M PRN IV DECREASED GLUCOSE; Start 08/16/16 at 21:30 Glucagon (Glucagen) 1 mg Q15M PRN IM DECREASED GLUCOSE; Start 08/16/16 at 21:30 Glucose (Glutose) 15 gm Q15M PRN BUCCAL DECREASED GLUCOSE; Start 08/16/16 at 21 :30 Metronidazole (Flagyl) 500 mg Q8 GTB Last administered on 08/24/16 14:15; Admin Dose 500 MG; Start 08/17/16 at 22:00 Lansoprazole (Prevacid) 30 mg DAILY@06 GTB Last administered on 08/24/16 06:07 ; Admin Dose 30 MG; Start 08/18/16 at 06:00 Linagliptin (Tradjenta) 5 mg DAILY PEG Last administered on 08/24/16 09:44; Admin Dose 5 MG; Start 08/19/16 at 09:00 Diltiazem HCl (Cardizem) 60 mg Q8 GTB Last administered on 08/23/16 21:47; Admin Dose 60 MG; Start 08/22/16 at 22:00 ADITYA CALLAHAN NP Aug 24, 2016 15:42
--- NOTE | 2016-08-24 16:44 | CONS ---
Date/Time of Note Date/Time of Note DATE: 08/24/16 TIME: 16:43 Assessment/Plan Assessment/Plan Additional Assessment/Plan Paroxysmal atrial fibrillation Paroxysmal supraventricular tachycardia Hematuria Preserved ejection fraction Respiratory failure status post tracheostomy History of CVA -Heart rate remains well controlled, anticoagulation on hold secondary to hematuria, no new cardiac orders at the current time. Consultation Date/Type/Reason Admit Date/Time Aug 16, 2016 at 20:13 Type of Consultation: cv 24 HR Interval Summary Free Text/Dictation Patient seen and examined Exam/Review of Systems Vital Signs Vitals Vital Signs Date Time Temp Pulse Resp B/P Pulse Ox O2 Delivery O2 Flow Rate FiO2 08/24/16 16:37 89 20 97 Aerosol 5.0 28 T Tube 08/24/16 15:01 99.0 115/66 Intake and Output 08/23/16 08/23/16 08/24/16 15:00 23:00 07:00 Intake Total 6350 ml 4350 ml Output Total 6100 ml 4200 ml Balance 250 ml 150 ml Exam Sleeping, no apparent distress Head: normocephalic Neck: other (tracheostomy) Respiratory: other (course breath sounds bilaterally, no wheezing) Cardiovascular: irregular rhythm, other (S1-S2 heard) Gastrointestinal: bowel sounds, non-tender, soft Extremities: other (no edema) Results Result Diagram: 08/24/16 0723 08/24/16 0723 Results 24 hrs Laboratory Tests Test 08/23/16 17:11 08/23/16 23:31 08/24/16 07:23 08/24/16 09:42 Bedside Glucose 125 120 107 Anion Gap 15 Basophils # 0.0 Basophils % 0.3 Blood Morphology Comment Blood Urea Nitrogen 29 H Calcium Level 8.7 Carbon Dioxide Level 21 Chloride Level 113 H Creatinine 1.30 H Eosinophils # 0.4 Eosinophils % 3.8 Glucose Level 97 Hematocrit 29.4 L Hemoglobin 9.8 L Lymphocytes # 1.4 Lymphocytes % 13.1 L Magnesium Level 2.1 Mean Corpuscular Hemoglobin 29.1 Mean Corpuscular Hemoglobin Concent 33.3 Mean Corpuscular Volume 87.4 Mean Platelet Volume 8.5 Monocytes # 0.7 Monocytes % 6.3 Neutrophils # 8.3 H Neutrophils % 76.5 Nucleated Red Blood Cells # 0.0 Nucleated Red Blood Cells % 0.0 Phosphorus Level 3.0 Platelet Count 359 Potassium Level 4.3 Red Blood Count 3.37 L Red Cell Distribution Width 17.7 H Sodium Level 145 H White Blood Count 10.8 Test 08/24/16 11:47 Bedside Glucose 109 Medications Medications Current Medications Ondansetron HCl (Zofran Inj) 4 mg Q6H PRN IV NAUSEA AND/OR VOMITING; Start at 21:00 Acetaminophen (Tylenol Supp) [address] PAIN LEVEL 1-3 OR FEVER; Start 08/16/16 at 21:00 Morphine Sulfate (morphine) 2 mg Q4H PRN IV PAIN LEVEL 7-10 Last administered on 08/17/16 12:09; Admin Dose 2 MG; Start 08/16/16 at 21:00 Lorazepam (Ativan) 1 mg Q2H PRN IV ANXIETY Last administered on 08/20/16 20:28 ; Admin Dose 1 MG; Start 08/16/16 at 21:00 Bisacodyl (Dulcolax Supp) [address] CONSTIPATION; Start 08/16/16 at 21 :00 Insulin Aspart (Novolog Insulin Pen) NOVOLOG *MILD* ALGORI... Q4 SC Last administered on 08/18/16 13:24; Admin Dose 1 UNIT; Start 08/16/16 at 21:30 Chlorhexidine Gluconate (Peridex) 15 ml Q12 MM Last administered on 08/24/16 09 :44; Admin Dose 15 ML; Start 08/16/16 at 21:00 Digoxin (Digoxin) 0.125 mg DAILY@13 GTB Last administered on 08/24/16 14:16; Admin Dose 0.125 MG; Start 08/17/16 at 13:00 Doxazosin Mesylate (Cardura) 4 mg HS GTB Last administered on 08/23/16 21:47; Admin Dose 4 MG; Start 08/16/16 at 22:00 Ferrous Sulfate (Feosol Liquid Cup) 300 mg DAILY GTB Last administered on 09:44; Admin Dose 300 MG; Start 08/17/16 at 09:00 Miscellaneous Information 1 ea NOTE XX ; Start 08/16/16 at 21:30 Glucose (Glutose) 15 gm Q15M PRN PO DECREASED GLUCOSE; Start 08/16/16 at 21:30 Glucose (Glutose) 22.5 gm Q15M PRN PO DECREASED GLUCOSE; Start 08/16/16 at 21: 30 Dextrose (D50w Syringe) 25 ml Q15M PRN IV DECREASED GLUCOSE; Start 08/16/16 at 21:30 Dextrose (D50w Syringe) 50 ml Q15M PRN IV DECREASED GLUCOSE; Start 08/16/16 at 21:30 Glucagon (Glucagen) 1 mg Q15M PRN IM DECREASED GLUCOSE; Start 08/16/16 at 21:30 Glucose (Glutose) 15 gm Q15M PRN BUCCAL DECREASED GLUCOSE; Start 08/16/16 at 21 :30 Metronidazole (Flagyl) 500 mg Q8 GTB Last administered on 08/24/16 14:15; Admin Dose 500 MG; Start 08/17/16 at 22:00 Lansoprazole (Prevacid) 30 mg DAILY@06 GTB Last administered on 08/24/16 06:07 ; Admin Dose 30 MG; Start 08/18/16 at 06:00 Linagliptin (Tradjenta) 5 mg DAILY PEG Last administered on 08/24/16 09:44; Admin Dose 5 MG; Start 08/19/16 at 09:00 Diltiazem HCl (Cardizem) 60 mg Q8 GTB Last administered on 08/23/16 21:47; Admin Dose 60 MG; Start 08/22/16 at 22:00 Ervin Ceja DO Aug 24, 2016 16:44
--- NOTE | 2016-08-24 16:52 | PN ---
Date/Time of Note Date/Time of Note DATE: 08/24/16 TIME: 16:51 Assessment/Plan VTE Prophylaxis VTE Prophylaxis Intervention: SCD's Lines/Catheters IV [facility] Assessment/Plan Chief Complaint/Hosp Course 1. Chronic obstructive pulmonary disease, stable 2. Clostridium difficile colitis. Continue Flagyl 3. History of cerebrovascular accident. No acute issues 4. Paroxysmal atrial fibrillation with rapid ventricular rate. Hold any blood thinners at this time secondary to hematuria. 5. Hematuria -Urology following, Continue bladder irrigation 6. Neurogenic bladder- Continue Ferreira. 7. Chronic kidney disease III- stable. 8. Diabetes type 2- stable PPx- SCD's Dispo- Have D/C'd to [facility] but bed pending Problems: Subjective 24 Hr Interval Summary Subjective hx not possible: pt non-verbal Exam/Review of Systems Vital Signs Vitals Vital Signs Date Time Temp Pulse Resp B/P Pulse Ox O2 Delivery O2 Flow Rate FiO2 08/24/16 16:37 89 20 97 Aerosol 5.0 28 T Tube 08/24/16 15:01 99.0 115/66 Intake and Output 08/23/16 08/23/16 08/24/16 15:00 23:00 07:00 Intake Total 6350 ml 4350 ml Output Total 6100 ml 4200 ml Balance 250 ml 150 ml Exam Constitutional: non-verbal Respiratory: clear to auscultation Cardiovascular: regular rate and rhythm Gastrointestinal: soft, No distended Musculoskeletal: nl extremities to inspection Results Result Diagram: 08/24/16 0723 08/24/16 0723 Results 24 hrs Laboratory Tests Test 08/23/16 17:11 08/23/16 23:31 08/24/16 07:23 08/24/16 09:42 Bedside Glucose 125 120 107 Anion Gap 15 Basophils # 0.0 Basophils % 0.3 Blood Morphology Comment Blood Urea Nitrogen 29 H Calcium Level 8.7 Carbon Dioxide Level 21 Chloride Level 113 H Creatinine 1.30 H Eosinophils # 0.4 Eosinophils % 3.8 Glucose Level 97 Hematocrit 29.4 L Hemoglobin 9.8 L Lymphocytes # 1.4 Lymphocytes % 13.1 L Magnesium Level 2.1 Mean Corpuscular Hemoglobin 29.1 Mean Corpuscular Hemoglobin Concent 33.3 Mean Corpuscular Volume 87.4 Mean Platelet Volume 8.5 Monocytes # 0.7 Monocytes % 6.3 Neutrophils # 8.3 H Neutrophils % 76.5 Nucleated Red Blood Cells # 0.0 Nucleated Red Blood Cells % 0.0 Phosphorus Level 3.0 Platelet Count 359 Potassium Level 4.3 Red Blood Count 3.37 L Red Cell Distribution Width 17.7 H Sodium Level 145 H White Blood Count 10.8 Test 08/24/16 11:47 Bedside Glucose 109 Medications Medications Current Medications Ondansetron HCl (Zofran Inj) 4 mg Q6H PRN IV NAUSEA AND/OR VOMITING; Start at 21:00 Acetaminophen (Tylenol Supp) 650 mg Q4H PRN [place] PAIN LEVEL 1-3 OR FEVER; Start 08/16/16 at 21:00 Morphine Sulfate (morphine) 2 mg Q4H PRN IV PAIN LEVEL 7-10 Last administered on 08/17/16 12:09; Admin Dose 2 MG; Start 08/16/16 at 21:00 Lorazepam (Ativan) 1 mg Q2H PRN IV ANXIETY Last administered on 08/20/16 20:28 ; Admin Dose 1 MG; Start 08/16/16 at 21:00 Bisacodyl (Dulcolax Supp) 10 mg DAILY PRN [place] CONSTIPATION; Start 08/16/16 at 21 :00 Insulin Aspart (Novolog Insulin Pen) NOVOLOG *MILD* ALGORI... Q4 SC Last administered on 08/18/16 13:24; Admin Dose 1 UNIT; Start 08/16/16 at 21:30 Chlorhexidine Gluconate (Peridex) 15 ml Q12 MM Last administered on 08/24/16 09 :44; Admin Dose 15 ML; Start 08/16/16 at 21:00 Digoxin (Digoxin) 0.125 mg DAILY@13 GTB Last administered on 08/24/16 14:16; Admin Dose 0.125 MG; Start 08/17/16 at 13:00 Doxazosin Mesylate (Cardura) 4 mg HS GTB Last administered on 08/23/16 21:47; Admin Dose 4 MG; Start 08/16/16 at 22:00 Ferrous Sulfate (Feosol Liquid Cup) 300 mg DAILY GTB Last administered on 09:44; Admin Dose 300 MG; Start 08/17/16 at 09:00 Miscellaneous Information 1 ea NOTE XX ; Start 08/16/16 at 21:30 Glucose (Glutose) 15 gm Q15M PRN PO DECREASED GLUCOSE; Start 08/16/16 at 21:30 Glucose (Glutose) 22.5 gm Q15M PRN PO DECREASED GLUCOSE; Start 08/16/16 at 21: 30 Dextrose (D50w Syringe) 25 ml Q15M PRN IV DECREASED GLUCOSE; Start 08/16/16 at 21:30 Dextrose (D50w Syringe) 50 ml Q15M PRN IV DECREASED GLUCOSE; Start 08/16/16 at 21:30 Glucagon (Glucagen) 1 mg Q15M PRN IM DECREASED GLUCOSE; Start 08/16/16 at 21:30 Glucose (Glutose) 15 gm Q15M PRN BUCCAL DECREASED GLUCOSE; Start 08/16/16 at 21 :30 Metronidazole (Flagyl) 500 mg Q8 GTB Last administered on 08/24/16 14:15; Admin Dose 500 MG; Start 08/17/16 at 22:00 Lansoprazole (Prevacid) 30 mg DAILY@06 GTB Last administered on 08/24/16 06:07 ; Admin Dose 30 MG; Start 08/18/16 at 06:00 Linagliptin (Tradjenta) 5 mg DAILY PEG Last administered on 08/24/16 09:44; Admin Dose 5 MG; Start 08/19/16 at 09:00 Diltiazem HCl (Cardizem) 60 mg Q8 GTB Last administered on 08/23/16 21:47; Admin Dose 60 MG; Start 08/22/16 at 22:00 ISIS BATISTA Aug 24, 2016 16:52
--- NOTE | 2016-08-24 20:37 | PN ---
DATE: 08/24/2016 SUBJECTIVE: Gross hematuria. Patient is on continuous bladder irrigation. The patient is on a res pirator and a G-tube and cannot express any complaint himself. OBJECTIVE VITAL SIGNS: His temperature is 99.0, pulse is 95, respiration is 20, blood pressure 115/66. ABDOMEN: Soft. The Ferreira catheter is draining well and the urine is now turning yellowish with the irrigation that is at a slow rate. LABORATORY DATA: His CBC shows a white count of 10.8; hemoglobin 9.8; hematocrit 29.4; and the plat elet count 359,000. The BUN is 29, creatinine 1.3, sodium 145, potassium 4.3, chloride 113, CO2 is 21. IMPRESSION: Gross hematuria that now appears to be subsiding. PLAN: To keep irrigation overnight and tomorrow morning we will stop the irrigation and see if the urine remains clear. Dictated By: TANA DUBOIS/GENOVEVA Conf#: [id number] DID#: [id number]
[2016-08-24] MEDS: DOXAZOSIN 4 MG TAB GTB SCH (23:12)
[2016-08-25] VITALS (12 sets, daily range): BP systolic 106–136; BP diastolic 55–71; PULSE 80–140; RESP 18–22
[2016-08-25] MEDS: INSULIN ASPART [NOVOLOG] 3 ML PEN SC SCH ×6 (01:00→21:00)
[2016-08-25] MEDS: metroNIDAZOLE 500 MG TAB GTB SCH ×3 (06:34→22:16)
[2016-08-25] MEDS: LANSOPRAZOLE 30 MG CAP GTB SCH (06:34)
[2016-08-25] MEDS: DILTIAZEM 60 MG TAB GTB SCH ×3 (06:35→22:21)
[2016-08-25] MEDS: LINAGLIPTIN 5 MG TABLET PEG SCH (08:38)
[2016-08-25] MEDS: CHLORHEXIDINE GLUCONATE 15 ML UD CUP MM SCH ×2 (08:38→22:20)
[2016-08-25] MEDS: FERROUS SULFATE 60 MG/ML 5ML CUP GTB SCH (08:38)
--- NOTE | 2016-08-25 09:09 | CONS ---
Date/Time of Note Date/Time of Note DATE: 08/25/16 TIME: 09:05 Assessment/Plan Assessment/Plan Additional Assessment/Plan Chest x-ray was reviewed done just a minute ago which is showing infiltrative changes involving the right lung. Assessment and recommendations; next 1. Patient admitted for treatment of colitis. 2. Significant worsening in clinical status with patient becoming febrile heart rate in the 140s respiratory rate in the 40s as well and copious secretions through the endotracheal tube. Chest x-ray showing infiltrative changes in the right lung. 3. History of CVA with poor mental status. 4. Patient maintained on tracheostomy. Also the patient to ICU. Patient will be put on mechanical ventilation. The colostomy tube needs to be changed to a cuffed 1. Continue Flagyl for now added Zosyn 3.375 g every 8 hours and vancomycin 1 g IV daily to be followed by pharmacy. Send sputum for Gram stain culture. Consultation Date/Type/Reason Admit Date/Time Aug 16, 2016 at 20:13 Type of Consultation: pulmonary/critical care 24 HR Interval Summary Free Text/Dictation Patient condition is taken a turn for the worse. Patient appears quite tachypneic with a respiratory rate in the 40s also tachycardic with heart rate in the 140s as well abuse amounts of yellow secretions are being suctioned through the tracheostomy. Due to very poor mental status patient is not able to communicate but is awake. General examination; elderly male, appears in mild distress. Exam/Review of Systems Vital Signs Vitals Vital Signs Date Time Temp Pulse Resp B/P Pulse Ox O2 Delivery O2 Flow Rate FiO2 08/25/16 08:26 92 5.0 28 08/25/16 08:25 135 23 Aerosol T Tube 08/25/16 07:44 102.1 136/71 Intake and Output 08/24/16 08/24/16 08/25/16 15:00 23:00 07:00 Output Total 2500 ml Balance -2500 ml Exam H EENT examination; supple neck, tracheostomy in place. Patient does not multiple carious teeth, no neck masses. Next Chest examination; diminished breath sounds throughout. S1-S2 audible, no murmurs. Regular rhythm. Abdomen examination; soft, mildly protuberant. Bowel sounds audible. Extremity examination; no peripheral edema. PROMOTION SPECIALIST examination; patient is awake but does not follow any commands. Results Result Diagram: 08/24/16 0723 08/24/16 0723 Results 24 hrs Laboratory Tests Test 08/24/16 09:42 08/24/16 11:47 08/24/16 18:13 08/24/16 23:19 Bedside Glucose 107 109 118 112 Test 08/25/16 01:44 08/25/16 06:01 08/25/16 08:46 Bedside Glucose 103 118 127 Medications Medications Current Medications Ondansetron HCl (Zofran Inj) 4 mg Q6H PRN IV NAUSEA AND/OR VOMITING; Start at 21:00 Acetaminophen (Tylenol Supp) 650 mg Q4H PRN [place] PAIN LEVEL 1-3 OR FEVER Last administered on 08/25/16 08:38; Admin Dose 650 MG; Start 08/16/16 at 21:00 Morphine Sulfate (morphine) 2 mg Q4H PRN IV PAIN LEVEL 7-10 Last administered on 08/17/16 12:09; Admin Dose 2 MG; Start 08/16/16 at 21:00 Lorazepam (Ativan) 1 mg Q2H PRN IV ANXIETY Last administered on 08/20/16 20:28 ; Admin Dose 1 MG; Start 08/16/16 at 21:00 Bisacodyl (Dulcolax Supp) 10 mg DAILY PRN [place] CONSTIPATION; Start 08/16/16 at 21 :00 Insulin Aspart (Novolog Insulin Pen) NOVOLOG *MILD* ALGORI... Q4 SC Last administered on 08/18/16 13:24; Admin Dose 1 UNIT; Start 08/16/16 at 21:30 Chlorhexidine Gluconate (Peridex) 15 ml Q12 MM Last administered on 08/25/16 08 :38; Admin Dose 15 ML; Start 08/16/16 at 21:00 Digoxin (Digoxin) 0.125 mg DAILY@13 GTB Last administered on 08/24/16 14:16; Admin Dose 0.125 MG; Start 08/17/16 at 13:00 Doxazosin Mesylate (Cardura) 4 mg HS GTB Last administered on 08/24/16 23:12; Admin Dose 4 MG; Start 08/16/16 at 22:00 Ferrous Sulfate (Feosol Liquid Cup) 300 mg DAILY GTB Last administered on 08:38; Admin Dose 300 MG; Start 08/17/16 at 09:00 Miscellaneous Information 1 ea NOTE XX ; Start 08/16/16 at 21:30 Glucose (Glutose) 15 gm Q15M PRN PO DECREASED GLUCOSE; Start 08/16/16 at 21:30 Glucose (Glutose) 22.5 gm Q15M PRN PO DECREASED GLUCOSE; Start 08/16/16 at 21: 30 Dextrose (D50w Syringe) 25 ml Q15M PRN IV DECREASED GLUCOSE; Start 08/16/16 at 21:30 Dextrose (D50w Syringe) 50 ml Q15M PRN IV DECREASED GLUCOSE; Start 08/16/16 at 21:30 Glucagon (Glucagen) 1 mg Q15M PRN IM DECREASED GLUCOSE; Start 08/16/16 at 21:30 Glucose (Glutose) 15 gm Q15M PRN BUCCAL DECREASED GLUCOSE; Start 08/16/16 at 21 :30 Metronidazole (Flagyl) 500 mg Q8 GTB Last administered on 08/25/16 06:34; Admin Dose 500 MG; Start 08/17/16 at 22:00 Lansoprazole (Prevacid) 30 mg DAILY@06 GTB Last administered on 08/25/16 06:34 ; Admin Dose 30 MG; Start 08/18/16 at 06:00 Linagliptin (Tradjenta) 5 mg DAILY PEG Last administered on 08/25/16 08:38; Admin Dose 5 MG; Start 08/19/16 at 09:00 Diltiazem HCl (Cardizem) 60 mg Q8 GTB Last administered on 08/25/16 06:35; Admin Dose 60 MG; Start 08/22/16 at 22:00 JORGE ROBLES Aug 25, 2016 09:09
--- NOTE | 2016-08-25 09:29 | RADRPT ---
PROCEDURE: Chest Radiograph. CLINICAL INDICATION: Shortness of breath TECHNIQUE: Single frontal chest radiograph. COMPARISON: Chest radiograph 08/18/2016 FINDINGS: A tracheostomy tube remains in place. Heart size is poorly evaluated and may be enlarged. Atherosc lerotic calcifications of the aorta are present. Lung volumes are decreased in there is patchy basil ar atelectasis and central compressive changes.. There is mild improved aeration of the left lung with persistent patchy air space disease throughout the right lung. No definite pleural effusion i s seen. The bones are unchanged IMPRESSION: 1. Improved aeration of the left lung. 2. Otherwise stable radiographic appearance of the chest compared to 08/18/2016. RPTAT: AA .Addison Vilchis MD, Date Time Electronically viewed and signed by .Addison Vilchis MD, MD on 08/25/2016 09:28 .B/
[2016-08-25] MEDS ORDERED: VANCOMYCIN IV PER PHARMACY XX SCH (09:30)
--- NOTE | 2016-08-25 09:57 | PN ---
DATE: 08/25/2016 SUBJECTIVE: The patient noted to be afebrile overnight, to have copious secretions. No episodes of hemoptysis, hematemesis or hematochezia. The patient was noted to be tachycardic. OBJECTIVE: VITAL SIGNS: Blood pressure is 136/71, respirations 20, pulse 136, temperature 102.1. HEENT: Head is normocephalic. NECK: Supple. HEART: Tachycardic. LUNGS: Show diminished breath sounds at the base. ABDOMEN: Soft, nontender to palpation. No rebound or guarding. EXTREMITIES: Negative for clubbing, cyanosis, no edema. DERMATOLOGIC: No rashes. MUSCULOSKELETAL: No joint effusions. NEUROLOGIC: No change in exam. MEDICATIONS: The patient's medications have been reviewed. LABORATORY DATA: From 08/25/2016 is pending. Laboratory from 08/24/2016 showed sodium 145, potassi um 4.3, chloride 133, BUN 29, creatinine 1.30. ASSESSMENT AND PLAN: 1. Nonoliguric acute kidney injury on top of chronic kidney disease stage IIIB with previous baseli ne creatinine of 1.4 mg/dL. Renal function has been fluctuating but creatinine appears to be return ing at baseline. We will follow up with BMP today. Otherwise, continue supportive care, renally do se all medications. 2. Hypernatremia. The patient is on free water flushes. We will increase rate to 200 mL q.4 hours . 3. Gross hematuria improved with CBI. Continue to monitor. 4. Anemia. Continue to monitor H and H levels. 5. Chronic respiratory failure, status post trach. Patient is currently more tachypneic, short of breath, will be resumed back on vent settings. We will defer to pulmonary for management. 6. Dysphagia, status post PEG. Continue tube feeding. 7. Chronic encephalopathy. No change. 8. Hypertension. Continue current blood pressure regimen. 9. Diabetes, continue Accu-Cheks and sliding scale. 10. Atrial fibrillation, continue current medical management. Follow up with cardiology. 11. History of Clostridium difficile, continue Flagyl. Dictated By: JOSÉ BLISS DO NR/NTS Conf#: [id number] DID#: [id number]
[2016-08-25] MEDS ORDERED: VANCOMYCIN 1.25 GM in SOD CHLORIDE 0.9% 250 ML IVPB SCH (11:00)
--- NOTE | 2016-08-25 11:10 | CONS ---
Date/Time of Note Date/Time of Note DATE: 08/25/16 TIME: 11:08 Assessment/Plan Assessment/Plan Additional Assessment/Plan Sepsis Paroxysmal atrial fibrillation/flutter Paroxysmal supraventricular tachycardia Hematuria Preserved ejection fraction Respiratory failure status post tracheostomy History of CVA -Patient febrile this morning with tachypnea and tachycardia. Increased secretions and concern for possible pneumonia. Heart rate has since improved. Would continue Cardizem as blood pressure and renal function permits. No anticoagulation at the current time given hematuria. Consultation Date/Type/Reason Admit Date/Time Aug 16, 2016 at 20:13 Type of Consultation: cv 24 HR Interval Summary Free Text/Dictation Patient febrile this morning and tachypnea with tachycardia Exam/Review of Systems Vital Signs Vitals Vital Signs Date Time Temp Pulse Resp B/P Pulse Ox O2 Delivery O2 Flow Rate FiO2 08/25/16 08:26 92 5.0 28 08/25/16 08:25 135 23 Aerosol T Tube 08/25/16 07:44 102.1 136/71 Intake and Output 08/24/16 08/24/16 08/25/16 15:00 23:00 07:00 Output Total 2500 ml Balance -2500 ml Exam Follows commands, no apparent distress Constitutional: alert, frail Head: normocephalic Neck: other (tracheostomy) Respiratory: other (course breath sounds bilaterally with scattered rhonchi, no wheezing) Cardiovascular: irregular rhythm, other (S1-S2 heard) Gastrointestinal: bowel sounds, non-tender, soft Extremities: edema (trace) Results Result Diagram: 08/24/16 0723 08/24/16 0723 Results 24 hrs Laboratory Tests Test 08/24/16 11:47 08/24/16 18:13 08/24/16 23:19 08/25/16 01:44 Bedside Glucose 109 118 112 103 Test 08/25/16 06:01 08/25/16 08:46 Bedside Glucose 118 127 Medications Medications Current Medications Ondansetron HCl (Zofran Inj) 4 mg Q6H PRN IV NAUSEA AND/OR VOMITING; Start at 21:00 Acetaminophen (Tylenol Supp) 650 mg Q4H PRN [place] PAIN LEVEL 1-3 OR FEVER Last administered on 08/25/16 08:38; Admin Dose 650 MG; Start 08/16/16 at 21:00 Morphine Sulfate (morphine) 2 mg Q4H PRN IV PAIN LEVEL 7-10 Last administered on 08/17/16 12:09; Admin Dose 2 MG; Start 08/16/16 at 21:00 Lorazepam (Ativan) 1 mg Q2H PRN IV ANXIETY Last administered on 08/20/16 20:28 ; Admin Dose 1 MG; Start 08/16/16 at 21:00 Bisacodyl (Dulcolax Supp) 10 mg DAILY PRN [place] CONSTIPATION; Start 08/16/16 at 21 :00 Insulin Aspart (Novolog Insulin Pen) NOVOLOG *MILD* ALGORI... Q4 SC Last administered on 08/18/16 13:24; Admin Dose 1 UNIT; Start 08/16/16 at 21:30 Chlorhexidine Gluconate (Peridex) 15 ml Q12 MM Last administered on 08/25/16 08 :38; Admin Dose 15 ML; Start 08/16/16 at 21:00 Digoxin (Digoxin) 0.125 mg DAILY@13 GTB Last administered on 08/24/16 14:16; Admin Dose 0.125 MG; Start 08/17/16 at 13:00 Doxazosin Mesylate (Cardura) 4 mg HS GTB Last administered on 08/24/16 23:12; Admin Dose 4 MG; Start 08/16/16 at 22:00 Ferrous Sulfate (Feosol Liquid Cup) 300 mg DAILY GTB Last administered on 08:38; Admin Dose 300 MG; Start 08/17/16 at 09:00 Miscellaneous Information 1 ea NOTE XX ; Start 08/16/16 at 21:30 Glucose (Glutose) 15 gm Q15M PRN PO DECREASED GLUCOSE; Start 08/16/16 at 21:30 Glucose (Glutose) 22.5 gm Q15M PRN PO DECREASED GLUCOSE; Start 08/16/16 at 21: 30 Dextrose (D50w Syringe) 25 ml Q15M PRN IV DECREASED GLUCOSE; Start 08/16/16 at 21:30 Dextrose (D50w Syringe) 50 ml Q15M PRN IV DECREASED GLUCOSE; Start 08/16/16 at 21:30 Glucagon (Glucagen) 1 mg Q15M PRN IM DECREASED GLUCOSE; Start 08/16/16 at 21:30 Glucose (Glutose) 15 gm Q15M PRN BUCCAL DECREASED GLUCOSE; Start 08/16/16 at 21 :30 Metronidazole (Flagyl) 500 mg Q8 GTB Last administered on 08/25/16 06:34; Admin Dose 500 MG; Start 08/17/16 at 22:00 Lansoprazole (Prevacid) 30 mg DAILY@06 GTB Last administered on 08/25/16 06:34 ; Admin Dose 30 MG; Start 08/18/16 at 06:00 Linagliptin (Tradjenta) 5 mg DAILY PEG Last administered on 08/25/16 08:38; Admin Dose 5 MG; Start 08/19/16 at 09:00 Diltiazem HCl 60 mg 60 mg Q8 GTB Last administered on 08/25/16 06:35; Admin Dose 60 MG; Start 08/22/16 at 22:00 Piperacillin Sod/ Tazobactam Sod 100 ml @ 200 mls/hr Q8 IVPB ; Start 08/25/16 at 14:00 Vancomycin HCl/ Sodium Chloride (Vancocin/NS) 250 ml @ 83.333 mls/ hr ONCE IVPB ; Start 08/25/16 at 11:00; Stop 08/25/16 at 14:00 Vancomycin HCl PER PHARMACY DOSING NOTE XX ; Start 08/25/16 at 09:30 Vancomycin HCl (Vancocin) 250 ml @ 125 mls/hr Q24H IVPB ; Start 08/26/16 at 11: 00 Ervin Ceja DO Aug 25, 2016 11:09
[2016-08-25 11:58] LABS: POTASSIUM 4.4 mmol/L (3.5-5.1)
[2016-08-25 12:01] LABS: CALCIUM 8.8 mg/dl (8.4-10.2); CREATININE 1.12 mg/dl (0.61-1.24)
[2016-08-25 12:11] LABS: BASOPHILS % 0.3 % (0.0-2.0); EOSINOPHILS % 0.3 % (0.0-7.0); HEMATOCRIT 30.6 % (42.0-52.0); HEMOGLOBIN 10.1 g/dl (14.0-18.0); LYMPHOCYTES % 8.4 % (15.0-51.0); MEAN CORPUSCULAR HEMOGLOBIN 28.6 pg (29.0-33.0); MEAN CORPUSCULAR HGB CONC 33.1 g/dl (32.0-37.0); MEAN CORPUSCULAR VOLUME 86.5 fl (82.0-101.0); MEAN PLATELET VOLUME 8.8 fl (7.4-10.4); MONOCYTE # 0.8 10^3/ul (0.3-0.9); MONOCYTES % 6.8 % (0.0-11.0); NEUTROPHIL # 9.8 10^3/ul (1.6-7.5); NEUTROPHILS % 84.2 % (39.0-77.0); PLATELET COUNT 360 10^3/UL (140-440); RED BLOOD COUNT 3.54 10^6/ul (4.70-6.10); RED CELL DISTRIBUTION WIDTH 17.4 % (11.5-14.5); UNCORRECTED WBC 11.6 10^3/ul (4.8-10.8); WHITE BLOOD COUNT 11.6 10^3/ul (4.8-10.8)
[2016-08-25 12:16] LABS: CONDITION 1; LH ANALYZER COMMENTS 1
--- NOTE | 2016-08-25 12:54 | PN ---
Date/Time of Note Date/Time of Note DATE: 08/25/16 TIME: 12:50 Assessment/Plan VTE Prophylaxis VTE Prophylaxis Intervention: SCD's Lines/Catheters IV Catheter Type (from Nrs): Saline Lock Assessment/Plan Chief Complaint/Hosp Course 1. SIRS -check a UA -ID following and has been started on Vanco/Zosyn 2. Clostridium difficile colitis. Continue Flagyl 3. History of cerebrovascular accident s/p Trach/PEG in the past -Palliative Care consult 4. Paroxysmal atrial fibrillation with rapid ventricular rate. Hold any blood thinners at this time secondary to hematuria. 5. Hematuria -Urology following, Continue bladder irrigation 6. Neurogenic bladder- Continue Ferreira. 7. Chronic kidney disease III- stable. 8. Diabetes type 2- stable 9. Chronic obstructive pulmonary disease, stable PPx- SCD's Dispo- Have D/C'd to [place] but bed pending Problems: Subjective 24 Hr Interval Summary Subjective hx not possible: pt non-verbal Exam/Review of Systems Vital Signs Vitals Vital Signs Date Time Temp Pulse Resp B/P Pulse Ox O2 Delivery O2 Flow Rate FiO2 08/25/16 12:46 100.2 100 18 112/65 98 08/25/16 11:22 10.0 08/25/16 08:26 28 08/25/16 08:25 Aerosol T Tube Intake and Output 08/24/16 08/24/16 08/25/16 15:00 23:00 07:00 Output Total 2500 ml Balance -2500 ml Exam Constitutional: non-verbal Respiratory: clear to auscultation Cardiovascular: regular rate and rhythm Gastrointestinal: soft, No distended Musculoskeletal: nl extremities to inspection Results Result Diagram: 08/25/16 1135 08/25/16 1135 Results 24 hrs Laboratory Tests Test 08/24/16 18:13 08/24/16 23:19 08/25/16 01:44 08/25/16 06:01 Bedside Glucose 118 112 103 118 Test 08/25/16 08:46 08/25/16 11:35 Bedside Glucose 127 Anion Gap 15 Basophils # 0.0 Basophils % 0.3 Blood Morphology Comment Blood Urea Nitrogen 31 H Calcium Level 8.8 Carbon Dioxide Level 23 Chloride Level 111 H Creatinine 1.12 Eosinophils # 0.0 Eosinophils % 0.3 Glucose Level 136 Hematocrit 30.6 L Hemoglobin 10.1 L Lymphocytes # 1.0 Lymphocytes % 8.4 L Mean Corpuscular Hemoglobin 28.6 L Mean Corpuscular Hemoglobin Concent 33.1 Mean Corpuscular Volume 86.5 Mean Platelet Volume 8.8 Monocytes # 0.8 Monocytes % 6.8 Neutrophils # 9.8 H Neutrophils % 84.2 H Nucleated Red Blood Cells # 0.0 Nucleated Red Blood Cells % 0.0 Platelet Count 360 Potassium Level 4.4 Red Blood Count 3.54 L Red Cell Distribution Width 17.4 H Sodium Level 145 H White Blood Count 11.6 H Medications Medications Current Medications Ondansetron HCl (Zofran Inj) 4 mg Q6H PRN IV NAUSEA AND/OR VOMITING; Start at 21:00 Acetaminophen (Tylenol Supp) 650 mg Q4H PRN [place] PAIN LEVEL 1-3 OR FEVER Last administered on 08/25/16 08:38; Admin Dose 650 MG; Start 08/16/16 at 21:00 Morphine Sulfate (morphine) 2 mg Q4H PRN IV PAIN LEVEL 7-10 Last administered on 08/17/16 12:09; Admin Dose 2 MG; Start 08/16/16 at 21:00 Lorazepam (Ativan) 1 mg Q2H PRN IV ANXIETY Last administered on 08/20/16 20:28 ; Admin Dose 1 MG; Start 08/16/16 at 21:00 Bisacodyl (Dulcolax Supp) 10 mg DAILY PRN [place] CONSTIPATION; Start 08/16/16 at 21 :00 Insulin Aspart (Novolog Insulin Pen) NOVOLOG *MILD* ALGORI... Q4 SC Last administered on 08/18/16 13:24; Admin Dose 1 UNIT; Start 08/16/16 at 21:30 Chlorhexidine Gluconate (Peridex) 15 ml Q12 MM Last administered on 08/25/16 08 :38; Admin Dose 15 ML; Start 08/16/16 at 21:00 Digoxin (Digoxin) 0.125 mg DAILY@13 GTB Last administered on 08/24/16 14:16; Admin Dose 0.125 MG; Start 08/17/16 at 13:00 Doxazosin Mesylate (Cardura) 4 mg HS GTB Last administered on 08/24/16 23:12; Admin Dose 4 MG; Start 08/16/16 at 22:00 Ferrous Sulfate (Feosol Liquid Cup) 300 mg DAILY GTB Last administered on 08:38; Admin Dose 300 MG; Start 08/17/16 at 09:00 Miscellaneous Information 1 ea NOTE XX ; Start 08/16/16 at 21:30 Glucose (Glutose) 15 gm Q15M PRN PO DECREASED GLUCOSE; Start 08/16/16 at 21:30 Glucose (Glutose) 22.5 gm Q15M PRN PO DECREASED GLUCOSE; Start 08/16/16 at 21: 30 Dextrose (D50w Syringe) 25 ml Q15M PRN IV DECREASED GLUCOSE; Start 08/16/16 at 21:30 Dextrose (D50w Syringe) 50 ml Q15M PRN IV DECREASED GLUCOSE; Start 08/16/16 at 21:30 Glucagon (Glucagen) 1 mg Q15M PRN IM DECREASED GLUCOSE; Start 08/16/16 at 21:30 Glucose (Glutose) 15 gm Q15M PRN BUCCAL DECREASED GLUCOSE; Start 08/16/16 at 21 :30 Metronidazole (Flagyl) 500 mg Q8 GTB Last administered on 08/25/16 06:34; Admin Dose 500 MG; Start 08/17/16 at 22:00 Lansoprazole (Prevacid) 30 mg DAILY@06 GTB Last administered on 08/25/16 06:34 ; Admin Dose 30 MG; Start 08/18/16 at 06:00 Linagliptin (Tradjenta) 5 mg DAILY PEG Last administered on 08/25/16 08:38; Admin Dose 5 MG; Start 08/19/16 at 09:00 Diltiazem HCl 60 mg 60 mg Q8 GTB Last administered on 08/25/16 06:35; Admin Dose 60 MG; Start 08/22/16 at 22:00 Piperacillin Sod/ Tazobactam Sod 100 ml @ 200 mls/hr Q8 IVPB ; Start 08/25/16 at 14:00 Vancomycin HCl/ Sodium Chloride (Vancocin/NS) 250 ml @ 83.333 mls/ hr ONCE IVPB Last administered on 08/25/16 11:33; Admin Dose 83.333 MLS/HR; Start at 11:00; Stop 08/25/16 at 14:00 Vancomycin HCl PER PHARMACY DOSING NOTE XX ; Start 08/25/16 at 09:30 Vancomycin HCl (Vancocin) 250 ml @ 125 mls/hr Q24H IVPB ; Start 08/26/16 at 11: 00 ISIS BATISTA Aug 25, 2016 12:54
[2016-08-25] MEDS: DIGOXIN 0.125 MG TAB GTB SCH (13:21)
[2016-08-25] MEDS: PIPER-TAZO 3.375 GM IV (PMX) 100 ML IVPB SCH ×2 (13:22→22:21)
--- NOTE | 2016-08-25 15:24 | CONS ---
Date/Time of Note Date/Time of Note DATE: 08/25/16 TIME: 15:20 Assessment/Plan Assessment/Plan Chief Complaint/Hosp Course SUBJECTIVE: All noted, chart reviewed. Pt with high fevers, tachycardia, tachypnea, started on abx, s/p bdl cx's done ANTIMICROBIALS: Flagyl, Vanco Zosyn INDWELLINGS: Trach, PEG, Ferreira. PHYSICAL EXAMINATION: GENERAL: This is a fragile, elderly man, who is noncommunicative and in no distress. HEENT: Head atraumatic, normocephalic. Sclerae are anicteric. Buccal mucosa dry. NECK: Supple. Tracheostomy present. CHEST: Chest rise is symmetrical. Breath sounds with scattered rhonchi. HEART: S1, S2, tachycardic. ABDOMEN: Soft. Bowel tones present. EXTREMITIES: With trace edema. ASSESSMENT: 1. Sepsis 2. Poss aspiration PNA 3. S/p hematuria==> S/p Ferreira changed, on CBI 4. Atrial fibrillation with RVR 5. S/p Clostridium difficile colitis. 6. Status post urinary tract infection. 7. Chronic respiratory failure. 8. Dysphagia. 9. Diabetes. PLAN: Started on Vanco Zosyn, will repeat cx's, continue Flagyl, pulmonary/card/ rec-s Dw staff Problems: Consultation Date/Type/Reason Admit Date/Time Aug 16, 2016 at 20:13 Type of Consultation: id 24 HR Interval Summary Subjective hx not possible: pt non-verbal Exam/Review of Systems Vital Signs Vitals Vital Signs Date Time Temp Pulse Resp B/P Pulse Ox O2 Delivery O2 Flow Rate FiO2 08/25/16 13:23 115 08/25/16 12:46 100.2 18 112/65 98 08/25/16 11:22 10.0 08/25/16 08:26 28 08/25/16 08:25 Aerosol T Tube Intake and Output 08/24/16 08/24/16 08/25/16 15:00 23:00 07:00 Output Total 2500 ml Balance -2500 ml Results Result Diagram: 08/25/16 1135 08/25/16 1135 Results 24 hrs Laboratory Tests Test 08/24/16 18:13 08/24/16 23:19 08/25/16 01:44 08/25/16 06:01 Bedside Glucose 118 112 103 118 Test 08/25/16 08:46 08/25/16 11:35 08/25/16 12:52 Bedside Glucose 127 135 Anion Gap 15 Basophils # 0.0 Basophils % 0.3 Blood Morphology Comment Blood Urea Nitrogen 31 H Calcium Level 8.8 Carbon Dioxide Level 23 Chloride Level 111 H Creatinine 1.12 Eosinophils # 0.0 Eosinophils % 0.3 Glucose Level 136 Hematocrit 30.6 L Hemoglobin 10.1 L Lymphocytes # 1.0 Lymphocytes % 8.4 L Mean Corpuscular Hemoglobin 28.6 L Mean Corpuscular Hemoglobin Concent 33.1 Mean Corpuscular Volume 86.5 Mean Platelet Volume 8.8 Monocytes # 0.8 Monocytes % 6.8 Neutrophils # 9.8 H Neutrophils % 84.2 H Nucleated Red Blood Cells # 0.0 Nucleated Red Blood Cells % 0.0 Platelet Count 360 Potassium Level 4.4 Red Blood Count 3.54 L Red Cell Distribution Width 17.4 H Sodium Level 145 H White Blood Count 11.6 H Medications Medications Current Medications Ondansetron HCl (Zofran Inj) 4 mg Q6H PRN IV NAUSEA AND/OR VOMITING; Start at 21:00 Acetaminophen (Tylenol Supp) 650 mg Q4H PRN [place] PAIN LEVEL 1-3 OR FEVER Last administered on 08/25/16 08:38; Admin Dose 650 MG; Start 08/16/16 at 21:00 Morphine Sulfate (morphine) 2 mg Q4H PRN IV PAIN LEVEL 7-10 Last administered on 08/17/16 12:09; Admin Dose 2 MG; Start 08/16/16 at 21:00 Lorazepam (Ativan) 1 mg Q2H PRN IV ANXIETY Last administered on 08/20/16 20:28 ; Admin Dose 1 MG; Start 08/16/16 at 21:00 Bisacodyl (Dulcolax Supp) 10 mg DAILY PRN [place] CONSTIPATION; Start 08/16/16 at 21 :00 Insulin Aspart (Novolog Insulin Pen) NOVOLOG *MILD* ALGORI... Q4 SC Last administered on 08/18/16 13:24; Admin Dose 1 UNIT; Start 08/16/16 at 21:30 Chlorhexidine Gluconate (Peridex) 15 ml Q12 MM Last administered on 08/25/16 08 :38; Admin Dose 15 ML; Start 08/16/16 at 21:00 Digoxin (Digoxin) 0.125 mg DAILY@13 GTB Last administered on 08/25/16 13:21; Admin Dose 0.125 MG; Start 08/17/16 at 13:00 Doxazosin Mesylate (Cardura) 4 mg HS GTB Last administered on 08/24/16 23:12; Admin Dose 4 MG; Start 08/16/16 at 22:00 Ferrous Sulfate (Feosol Liquid Cup) 300 mg DAILY GTB Last administered on 08:38; Admin Dose 300 MG; Start 08/17/16 at 09:00 Miscellaneous Information 1 ea NOTE XX ; Start 08/16/16 at 21:30 Glucose (Glutose) 15 gm Q15M PRN PO DECREASED GLUCOSE; Start 08/16/16 at 21:30 Glucose (Glutose) 22.5 gm Q15M PRN PO DECREASED GLUCOSE; Start 08/16/16 at 21: 30 Dextrose (D50w Syringe) 25 ml Q15M PRN IV DECREASED GLUCOSE; Start 08/16/16 at 21:30 Dextrose (D50w Syringe) 50 ml Q15M PRN IV DECREASED GLUCOSE; Start 08/16/16 at 21:30 Glucagon (Glucagen) 1 mg Q15M PRN IM DECREASED GLUCOSE; Start 08/16/16 at 21:30 Glucose (Glutose) 15 gm Q15M PRN BUCCAL DECREASED GLUCOSE; Start 08/16/16 at 21 :30 Metronidazole (Flagyl) 500 mg Q8 GTB Last administered on 08/25/16 13:21; Admin Dose 500 MG; Start 08/17/16 at 22:00 Lansoprazole (Prevacid) 30 mg DAILY@06 GTB Last administered on 08/25/16 06:34 ; Admin Dose 30 MG; Start 08/18/16 at 06:00 Linagliptin (Tradjenta) 5 mg DAILY PEG Last administered on 08/25/16 08:38; Admin Dose 5 MG; Start 08/19/16 at 09:00 Diltiazem HCl 60 mg 60 mg Q8 GTB Last administered on 08/25/16 06:35; Admin Dose 60 MG; Start 08/22/16 at 22:00 Piperacillin Sod/ Tazobactam Sod (Zosyn 3.375gm/ 100 ml (Pmx)) 100 ml @ 200 mls /hr Q8 IVPB Last administered on 08/25/16t 13:22; Admin Dose 200 MLS/HR; Start 08/25/16 at 14:00 Vancomycin HCl PER PHARMACY DOSING NOTE XX ; Start 08/25/16 at 09:30 Vancomycin HCl (Vancocin) 250 ml @ 125 mls/hr Q24H IVPB ; Start 08/26/16 at 11: 00 ADITYA CALLAHAN NP Aug 25, 2016 15:24
[2016-08-25 16:11] LABS: ADD UMIC YES; URINE BILIRUBIN (Dip) NEGATIVE (NEGATIVE); URINE BLOOD (Dip) 2+ (NEGATIVE); URINE COLOR YELLOW (YELLOW); URINE GLUCOSE (Dip) NEGATIVE (NEGATIVE); URINE KETONES (Dip) TRACE (NEGATIVE); URINE LEUKOCYTE ESTERASE (Dip) 1+ (NEGATIVE); URINE NITRITE (Dip) NEGATIVE (NEGATIVE); URINE TOTAL PROTEIN (Dip) TRACE (NEGATIVE); URINE UROBILINOGEN (Dip) 1.0 E.U./dL (0.1-1.0)
--- NOTE | 2016-08-25 16:15 | PN ---
DATE: 08/25/2016 SUBJECTIVE: History of gross hematuria and the patient has had continuous bladder irrigation and th en the irrigation was stopped and the patient himself appeared to be comfortable and he is not capab le of expressing any symptoms. OBJECTIVE: VITAL SIGNS: His temperature is 100.2, and the maximum temperature was 102.1. The last temperature this afternoon at 12:46 it was 100.2. He had a temperature at 7:00 this morning of 102.1, the bloo d pressure is 112/65, pulse is 100, respiration 18. ABDOMEN: Ferreira catheter is draining clear urine. LABORATORY DATA: CBC shows a white count of 11.6, hemoglobin 10.1, hematocrit 30.6. BUN is 31, cre atinine 1.12, sodium 145, potassium 4.4, chloride 111, CO2 23. IMPRESSION: Gross hematuria that has cleared and the patient does have fever now, we shall do a uri ne culture and also the patient did have a chest x-ray today and that was reported as improved aerat ion of the left lung, otherwise, stable radiographic appearance of the chest compared to 08/18/2016. Patient is already placed on vancomycin and Zosyn. Dictated By: TANA DUBOIS/GENOVEVA Conf#: [id number] DID#: [id number]
[2016-08-25 16:30] LABS: BACTERIA,URINE MODERATE; TRANSITIONAL EPI CELLS,URINE FEW
[2016-08-25] MEDS: DOXAZOSIN 4 MG TAB GTB SCH (22:20)
--- NOTE | 2016-08-26 09:11 | DS ---
DATE OF ADMISSION: 08/16/2016 DATE OF DISCHARGE: 08/26/2016 DISCHARGE DIAGNOSES 1. Status post bladder irrigation. The patient continued on bladder irrigation for now, Urology is following. 2. Neurogenic bladder. Continue Ferreira. 3. Chronic kidney disease, stable. 4. Diabetes, stable. 5. Chronic obstructive pulmonary disease, stable. 6. Clostridium difficile colitis. Continue Flagyl. 7. History of cerebrovascular accident, status post tracheostomy and PEG in the past. 8. Systemic inflammatory response syndrome possibly secondary to urinary tract infection. I sent f or a UA, continue antibiotics. Infectious disease continue to follow. HOSPITAL COURSE: The patient is a 76-year-old male with a history of CVA, status post tracheostomy and PEG in the past. The patient presents with hematuria. The patient was seen by urology and was put on bladder irrigation. The patient was seen by ID during hospitalization, has a history of C. d ifficile colitis and this has been treated. The patient has been on Flagyl. There is a question of possible aspiration pneumonia. The patient was also put on antibiotics for that. The patient was discharged on 08/21/2014 and please refer to discharge summary on that date for further details. Th e patient's discharge was held as there were no beds available at [place]. In the interim, the patie nt did develop a fever was tachycardic. Blood pressure was stable. The patient was put on broad sp ectrum antibiotics with vancomycin, Zosyn and should be continued on this at [place]. The patient ot herwise felt stable for discharge. CONDITION ON DISCHARGE: Fair. DISPOSITION: To [place]. MEDICATIONS: The patient to continue in house medications. FOLLOWUP: The patient is to follow up with physicians at [place]. Greater than 30 minutes was spent coordinating discharge of this patient. Dictated By: ISIS BATISTA MD BS/NTS Conf#: [id number] DID#: [id number]
[2016-08-26] MEDS ORDERED: VANCOMYCIN 1 GM in NS 250 ML IVPB SCH (11:00)
== END 2016-08-26 | DRG 695 ==
LOC: ICU 20:13 → TEL 08-19 19:59
PROVIDERS: ADMIT Family Medicine; ATTEND Family Medicine
PROC: 30233N1 Transfusion of Nonautologous Red Blood Cells into Peripheral Vein, Percutaneous Approach (ICD-10-PCS; principal; 2016-08-17)
PROC: 3C1ZX8Z Irrigation of Indwelling Device using Irrigating Substance, External Approach (ICD-10-PCS; 2016-08-17)
PROC: 3E1K78Z Irrigation of Genitourinary Tract using Irrigating Substance, Via Natural or Artificial Opening (ICD-10-PCS; 2016-08-17)
DX: R31.0 Gross hematuria (principal); L89.153 Pressure ulcer of sacral region, stage 3; J69.0 Pneumonitis due to inhalation of food and vomit; N17.0 Acute kidney failure with tubular necrosis; G93.40 Encephalopathy, unspecified; A41.9 Sepsis, unspecified organism; J18.9 Pneumonia, unspecified organism; E87.0 Hyperosmolality and hypernatremia; J96.10 Chronic respiratory failure, unspecified whether with hypoxia or hypercapnia; A04.7 Enterocolitis due to Clostridium difficile; R65.10 Systemic inflammatory response syndrome (SIRS) of non-infectious origin without acute organ dysfunction; Z93.0 Tracheostomy status; Z93.1 Gastrostomy status; D63.8 Anemia in other chronic diseases classified elsewhere; J44.9 Chronic obstructive pulmonary disease, unspecified; E78.5 Hyperlipidemia, unspecified; Z86.73 Personal history of transient ischemic attack (TIA), and cerebral infarction without residual deficits; R13.10 Dysphagia, unspecified; N31.9 Neuromuscular dysfunction of bladder, unspecified; I12.9 Hypertensive chronic kidney disease with stage 1 through stage 4 chronic kidney disease, or unspecified chronic kidney disease; N18.3 Chronic kidney disease, stage 3 (moderate); E11.9 Type 2 diabetes mellitus without complications; T83.098A Other mechanical complication of other urinary catheter, initial encounter; R33.8 Other retention of urine
CPT/HCPCS: 36430; 36600; 71010; 80048; 80053; 81001; 81003; 82803; 82962; 83735; 84100; 84155; 84300; 84443; 85025; 86850; 86900; 86901; 86920; 87081; 87086; 90686; C9113; J0282; J1815; J2060; J2270; J2543; J2916; J3370; J3475; J7030; J7050; P9016

== ENCOUNTER → 2016-09-14 | Day surgery (SDC) | payer MEDICARE, OTHER ==
[~2016-09-14] VITALS: Ht 167.6 cm; Wt 66.1 kg
[~2016-09-14] MED LIST changes: -ASPI-535 GTB; -ENOX40DI14 SC; +GLYCOPYRROLATE 0.4 MG INJ ONE; +METR500T GTB; +NEOSTIGMINE 3 MG/3 ML SYRINGE ONE; +ROCURONIUM 50 MG INJ ONE
[2016-09-14 17:00] VITALS: BP 102/54; PULSE 69; RESP 20
[2016-09-14 19:40] VITALS: BP 125/55; PULSE 132; RESP 25
[2016-09-14 19:41] VITALS: BP 121/51; PULSE 132; RESP 24
[2016-09-14 19:46] VITALS: BP 123/68; PULSE 132
--- NOTE | 2016-09-15 00:01 | OPR ---
DATE OF OPERATION: 09/14/2016 PREOPERATIVE DIAGNOSIS: Gross hematuria, recurrent. POSTOPERATIVE DIAGNOSIS: Gross hematuria, recurrent. Patient is bleeding from the bladder around t he right ureteral orifice. He has bleeders also from an enlarged median lobe of the prostate. The prostatic fossa, however, is intact. OPERATION PERFORMED: Cystoscopy and fulguration of the bladder and right ureteral catheterization. TECHNIQUE: The patient was brought to the operating room. The patient was given general anesthesia and positioned in the lithotomy position. The patient was then positioned in the lithotomy positio n. The Ferreira catheter that he had was removed and the patient was then prepped and draped in the [facility] sterile manner. A #23 Faroese cystoscope sheath was introduced under direct vision through the p enile urethra all the way to the bladder. The bladder was full of blood clots. I had to irrigate t hem through the scope. Then, I did remove the scope and inserted a 26-Faroese resectoscope sheath wh ich made the irrigation much easier to remove all the clots. Once the clots were removed, then the bladder was inspected and the bleeders were coming lateral and distal to the right ureteral orifice and also medial over the trigone area and also from the median lobe that was protruding into the yamile dder. Most of the bleeders were on the right side. Therefore, I did use the resectoscope loop and cauterized all the bleeders. However, to protect the right ureteral orifice, I did pass a 5-Faroese open-ended ureteral catheter into the right ureter and kept it in place, removed the resectoscope an d reintroduced it again and this time, I cauterized all the bleeders and this way with the ureteral catheter inside the ureter, protected the ureteral orifice. Once all the bleeders were electrocoagu lated and there was no bleeder whatsoever, the resectoscope was removed. A #24 Faroese Ferreira cathete r, 3-way, with put in, connected to a drainage bag. Continuous bladder irrigation was started in th e operating room. The balloon of the Ferreira was inflated with 60 mL of sterile water and the patient was transferred to recovery room in stable and satisfactory condition. Dictated By: TANA DUBOIS/GENOVEVA Conf#: [id number] [facility]#: [id number]
== END | disposition home or self-care (01) ==
LOC: SUR 15:49 → SDS 16:33
PROVIDERS: ATTEND Urology
DX: R31.0 Gross hematuria (principal); I10 Essential (primary) hypertension; I25.10 Atherosclerotic heart disease of native coronary artery without angina pectoris; J96.90 Respiratory failure, unspecified, unspecified whether with hypoxia or hypercapnia; Z99.81 Dependence on supplemental oxygen; Z93.0 Tracheostomy status
CPT/HCPCS: 52214; 88304; J2710

== ENCOUNTER 2016-09-24 21:38 | Inpatient (IN) | payer OTHER, MEDICARE ==
[~2016-09-24] VITALS: Ht 167.6 cm; Wt 64.6 kg
[~2016-09-24 21:38] MED LIST changes: -GLYCOPYRROLATE 0.4 MG INJ ONE; -NEOSTIGMINE 3 MG/3 ML SYRINGE ONE; -ROCURONIUM 50 MG INJ ONE
[2016-09-24 21:51] VITALS: Ht 167.6 cm; Wt 64.6 kg
[2016-09-24] MEDS ORDERED: DILTIAZEM 25 MG INJ IV STA (22:13)
[2016-09-24] MEDS ORDERED: SOD CHLORIDE 0.9% 500 ML IV STA (22:13)
[2016-09-24 22:46] LABS: ADD SCAN DIFF NO
[2016-09-24 22:50] LABS: Allen Test ACCEPTAB; Arterial Base Excess 1.7 mmol/L (-3.0-3); Arterial COHb 0.3 % (0.0-3.0); Arterial Fraction of Oxyhgb 97.5 % (93.0-99.0); Arterial HCO3 25.3 mmol/L (22.0-26.0); Arterial MetHb 0.4 % (0.0-1.5); Arterial Total Hemglobin 12.5 g/dl (12.0-18.0); MODE VENT - AC
[2016-09-24 22:50] LABS: BASOPHIL # 0.1 10^3/ul (0.0-0.1); BASOPHILS % 0.4 % (0.0-2.0); EOSINOPHILS # 0.9 10^3/ul (0.0-0.5); EOSINOPHILS % 5.8 % (0.0-7.0); HEMATOCRIT 36.2 % (42.0-52.0); LYMPHOCYTES # 2.9 10^3/ul (0.8-2.9); LYMPHOCYTES % 18.2 % (15.0-51.0); MEAN CORPUSCULAR HEMOGLOBIN 27.1 pg (29.0-33.0); MEAN CORPUSCULAR HGB CONC 30.4 g/dl (32.0-37.0); MEAN CORPUSCULAR VOLUME 89.2 fl (82.0-101.0); MEAN PLATELET VOLUME 10.9 fl (7.4-10.4); MONOCYTE # 1.5 10^3/ul (0.3-0.9); MONOCYTES % 9.2 % (0.0-11.0); NEUTROPHIL # 10.5 10^3/ul (1.6-7.5); NEUTROPHILS % 65.8 % (39.0-77.0); PLATELET COUNT 402 10^3/UL (140-415); RED BLOOD COUNT 4.06 10^6/ul (4.70-6.10); RED CELL DISTRIBUTION WIDTH 17.2 % (11.5-14.5)
[2016-09-24 22:58] LABS: PROTIME 13.2 Sec (12.2-14.2)
[2016-09-24 22:59] LABS: PARTIAL THROMBOPLASTIN TIME 29.2 Sec (25.0-35.0)
--- NOTE | 2016-09-24 22:59 | RADRPT ---
PROCEDURE: XR Chest. CLINICAL INDICATION: Chest pain. TECHNIQUE: Portable AP supine view of the chest was obtained. COMPARISON: 09/03/2016 FINDINGS: The cardiomediastinal silhouette is borderline enlarged. Tracheostomy is again noted with minimal l eft lower lobe subsegmental atelectasis, the right lung is grossly clear. There is no evidence for pleural effusion, pneumothorax or pulmonary vascular congestion. The osseous structures are intact with no evidence for acute abnormality. RPTAT:HJJR IMPRESSION: Overall no significant interval change compared to 09/03/2016, tracheostomy, borderline cardiac silh ouette enlargement and left basilar subsegmental atelectasis. Physician Jr Date Time Electronically viewed and signed by Rico Davis Physician on 09/24/2016 22:59 /
[2016-09-24 23:21] LABS: ALBUMIN 3.8 g/dl (3.3-4.9); POTASSIUM 4.3 mmol/L (3.5-5.1)
[2016-09-24 23:23] LABS: CREATININE 1.33 mg/dl (0.61-1.24)
[2016-09-24 23:24] LABS: ALBUMIN/GLOBULIN RATIO 0.82; TOTAL PROTEIN 8.4 g/dl (6.1-8.1)
[2016-09-24 23:25] LABS: CALCIUM 10.3 mg/dl (8.4-10.2)
[2016-09-25] MEDS ORDERED: MAGNESIUM HYDROXIDE 30ML CUP PO PRN (01:00)
[2016-09-25] MEDS ORDERED: ONDANSETRON 4 MG INJ IV PRN (01:00)
[2016-09-25] MEDS ORDERED: ACETAMINOPHEN 325 MG TAB GTB PRN (01:00)
[2016-09-25] MEDS ORDERED: hydrALAzine 20 MG INJ IV PRN (01:00)
[2016-09-25] MEDS ORDERED: NACL 0.9% 3 ML SYG IV SCH (01:00)
[2016-09-25] MEDS ORDERED: NITROGLYCERIN (SL) 0.4 MG TAB SL PRN (01:00)
[2016-09-25] MEDS ORDERED: DOCUSATE SODIUM 100 MG CAP PO PRN (01:00)
[2016-09-25] MEDS ORDERED: ALBUTEROL 0.083% (NEB) 2.5 MG/3 ML AMP NEB PRN (01:00)
[2016-09-25] MEDS ORDERED: MAGNESIUM HYDROXIDE 30ML CUP GTB PRN (01:00)
[2016-09-25] MEDS ORDERED: NA PHOSPHATE/BIPHOS 133 ML ENEMA PR PRN (01:00)
[2016-09-25] MEDS ORDERED: ACETAMINOPHEN 325 MG TAB PO PRN (01:00)
[2016-09-25] MEDS ORDERED: HYDROCODONE/APAP (5/325) TAB PO PRN (01:00)
[2016-09-25] MEDS: DILTIAZEM-D5W 125MG/125ML DRIP 125 ML IV SCH ×2 (01:45→19:07)
--- NOTE | 2016-09-25 02:20 | ERA ---
ER Documentation Chief Complaint Date/Time DATE: 09/25/16 TIME: 02:18 Chief Complaint tachy HPI This is a 76-year-old male who comes in with complaints of tachycardia. Patient has a history of atrial fibrillation. Patient also had chest pain. Chest pain was mild to moderate in intensity with no exacerbating or alleviating factors. Lasted for about 10 minutes. On-and-off for the past 2 hours. Mild nausea. No vomiting. No other current complaints. ROS All systems reviewed and are negative except as per history of present illness. Medications Home Meds Active Scripts Metronidazole* (Flagyl*) 500 Mg Tablet, 500 MG GTB Q8 for 7 Days, TAB Prov:ISIS BATISTA 08/21/16 Reported Medications Multivitamins* (Theragran*) 1 Tab Tab, 1 TAB GTB DAILY, TAB 07/31/16 Fenofibrate, Micronized* (Fenofibrate*) 160 Mg Tablet, 160 MG GTB DAILY, TAB 07/31/16 Ferrous Sulfate (Ferrous Sulfate) 220 Mg/5 Ml Elixir, 7.5 ML GTB DAILY, BOTTLE 07/31/16 Acidophilus-Bulgaricus* (BD Lactinex*) 1 Pkt Packet, 1 PKT GTB BID, PACKET 07/31/16 Albuterol Sulfate* (Albuterol Sulfate* Neb) 0.083%-3 Ml Neb, 2.5 MG NEB Q6 Y for WHEEZING AND SOB, #30 VIAL 07/31/16 Albuterol Sulfate* (Albuterol Sulfate* Neb) 0.083%-3 Ml Neb, 2.5 MG NEB Q3H Y for WHEEZING AND SOB, #30 VIAL 07/31/16 Acetaminophen* (Acetaminophen*) 500 MG Extra Strength Tablet, 1000 MG GTB BID Y for REHAB, TAB 07/31/16 Acetaminophen* (Acetaminophen*) 650 Mg Tablet, 650 MG GTB Q4 Y for TRACH CHANGE , #30 TAB 07/31/16 Acetaminophen* (Acetaminophen*) 650 Mg Tablet, 650 MG GTB Q4 Y for ELEVATED TEMPERATURE, #30 TAB 07/31/16 Acetaminophen* (Acetaminophen*) 650 Mg Tablet, 650 MG GTB Q4 Y for MILD PAIN LEVEL 1-3, #30 TAB 07/31/16 Cran/Vitc/Mannose/Inulin/Brom (Uti-Stat Liquid) 3,875 Mg/30 Ml Liquid, 3875 MG GTB BID 07/31/16 Ascorbic Acid* (Vitamin C* Liq) 500 Mg/5 Ml Syrup, 500 MG GTB DAILY, ML 07/31/16 Na Phos,M-B/Na Phos,Di-Ba (ENEMA READY TO USE) 135 Ml Enema, 135 ML RC PRN Y for CONSTIPATION, ENEMA 07/31/16 Atorvastatin Calcium* (Atorvastatin Calcium*) 20 Mg Tablet, 20 MG GTB QHS, #30 TAB 07/31/16 Magnesium Hydroxide* (Milk Of Magnesia*) 400 Mg/5 Ml Oral.susp, 30 ML GTB DAILY Y for CONSTIPATION, ML 07/31/16 Omeprazole* (Omeprazole*) 20 Mg Capsule.dr, 20 MG GTB DAILY, #30 CAP GIVE 30MIN PRIOR TO FEEDING 07/31/16 Bisacodyl (Dulcolax) 10 Mg Supp.rect, 10 MG RC PRN Y for CONSTIPATION, SUPP.RECT 07/31/16 Doxazosin Mesylate* (Doxazosin Mesylate*) 4 Mg Tablet, 4 MG GTB HS, TAB 07/31/16 Digoxin* (Lanoxin*) 0.125 Mg Tablet, 0.125 MG GTB DAILY, TAB 07/31/16 Docusate Sodium* (Colace*) 100 Mg Capsule, 100 MG GTB DAILY Y for CONSTIPATION, #30 CAP 07/31/16 Chlorhexidine Gluconate (Peridex) 473 Ml Mouthwash, 15 ML MM Q12, BOTTLE 07/31/16 Diltiazem Hcl* (Cardizem CD*) 120 Mg Cap.sr.24h, 120 MG GTB DAILY, #30 CAP 07/31/16 Glucagon* (Glucagen*) 1 Mg Soln, 1 MG IM Y [id number] NEEDED FOR UNCONCIOUS PATIENT OR NPO PATIENT WITHOUT IV ACCESS BLOOD GLUCOSE RESULT BELOW 70 REPEAT ABOVE TREATMENT EVERY 15 MINUTES UNTIL GLUCOSE IS GREATER THAN OR EQUAL TO 80 08/19/13 Allergies Allergies: Coded Allergies: No Known Drug Allergies (Verified Allergy, Unknown, 08/01/16) PMhx/Soc History of Surgery: No (unable to assess) Anesthesia Reaction: No Hx Neurological Disorder: Yes (cva) Hx Respiratory Disorders: Yes (copd,resp failure, trach #6 portex-on humidifed o2) Hx Cardiac Disorders: Yes (a.fib, htn, cva, arteriosclerotic disease) Hx Psychiatric Problems: Yes (PT is AOx2) Hx Miscellaneous Medical Probl: No Hx Substance Use: No (unable to assess no family at bedside) Hx Tobacco Use: No (unable to assess no family at bedside) Smoking Status: Unknown if ever smoked Physical Exam Vitals Vital Signs Date Time Temp Pulse Resp B/P Pulse Ox O2 Delivery O2 Flow Rate FiO2 09/25/16 01:10 147 19 100 40 09/24/16 23:16 77 17 100 40 09/24/16 22:49 73 112/80 100 Mechanical Ventilator 09/24/16 21:51 97.4 146 16 112/80 100 09/24/16 21:40 145 21 99 40 Physical Exam Const: [] Head: Atraumatic Eyes: Normal Conjunctiva ENT: Normal External Ears, Nose and Mouth. Neck: Full range of motion..~ No meningismus. Resp: Clear to auscultation bilaterally Cardio: Regular rate and rhythm, no murmurs Abd: Soft, non tender, non distended. Normal bowel sounds Skin: No petechiae or rashes Back: No midline or flank tenderness Ext: No cyanosis, or edema Neur: Awake and alert Psych: Normal Mood and Affect Result Diagram: 09/24/16222409/24/162224 Results 24 hrs Laboratory Tests Test 09/24/16 22:25 09/24/16 22:30 Activated Partial Thromboplast Time 29.2Sec Alanine Aminotransferase (ALT/SGPT) 15IU/L Albumin 3.8g/dl Albumin/Globulin Ratio 0.82 Alkaline Phosphatase 148IU/L Anion Gap 23 Aspartate Amino Transf (AST/SGOT) 36IU/L B-Type Natriuretic Peptide 21832CK/ML Basophils # 0.110^3/ul Basophils % 0.4% Blood Urea Nitrogen 67mg/dl Calcium Level 10.3mg/dl Carbon Dioxide Level 26mmol/L Chloride Level 101mmol/L Creatinine 1.33mg/dl Direct Bilirubin 0.00mg/dl Eosinophils # 0.910^3/ul Eosinophils % 5.8% Globulin 4.60g/dl Glucose Level 200mg/dl Hematocrit 36.2% Hemoglobin 11.0g/dl INR International Normalized Ratio 1.00 Indirect Bilirubin 0.0mg/dl Lymphocytes # 2.910^3/ul Lymphocytes % 18.2% Mean Corpuscular Hemoglobin 27.1pg Mean Corpuscular Hemoglobin Concent 30.4g/dl Mean Corpuscular Volume 89.2fl Mean Platelet Volume 10.9fl Monocytes # 1.510^3/ul Monocytes % 9.2% Neutrophils # 10.510^3/ul Neutrophils % 65.8% Nucleated Red Blood Cells # 0.010^3/ul Nucleated Red Blood Cells % 0.0/100WBC Platelet Count 84729^3/UL Potassium Level 4.3mmol/L Prothrombin Time 13.2Sec Prothrombin Time Ratio 1.0 Red Blood Count 4.0610^6/ul Red Cell Distribution Width 17.2% Sodium Level 146mmol/L Total Bilirubin 0.0mg/dl Total Protein 8.4g/dl Troponin I 0.123ng/ml White Blood Count 16.010^3/ul Arterial Blood HCO3 25.3mmol/L Arterial Blood Base Excess 1.7mmol/L Arterial Blood Oxygen Saturation 98.2mmHG Vinayak Test ACCEPTAB Arterial Blood Gas Puncture Site Right Radial Arterial Blood Carboxyhemoglobin 0.3% Arterial Blood Date Drawn 09/24/2016 10:47:40 PM Arterial Blood Methemoglobin 0.4% Arterial Blood pCO2 (Temp correct) 36.1mmhg Arterial Blood pH (Temp corrected) 7.463 Arterial Blood pO2 (Temp corrected) 123.7mmHG Blood Gas A-a O2 Differential 120.0mmHg Blood Gas Actual Respiration Rate 20 Blood Gas Inspiratory Pressure 17.0 Blood Gas Low PEEP Setting 5.0cmH2O Blood Gas Modality VENT - AC Blood Gas Notified Time 09/24/2016 10:50:16 PM Blood Gas Notified Whom BR Blood Gas Respiration Rate 16.0 Blood Gas Specimen Source Blood arterial Blood Gas Temperature 37.0C Blood Gas Tidal Volume 500.0mL FiO2 40.0% Oxyhemoglobin Percent 97.5% Total Hemoglobin 12.5g/dl Current Medications Medications (Trade) Dose Ordered Sig/Davidson Route PRN Reason Start Time Stop Time Status Last Admin Dose Admin Sodium Chloride (NS) 500 ml @ 500 mls/hr Q1H STAT IV 09/24/16 22:13 09/24/16 23:12 DC 09/24/16 22:46 Diltiazem HCl (Cardizem Iv) 20 mg ONCE STAT IV 09/24/16 22:13 09/24/16 22:17 DC 09/24/16 22:45 IV Flush (NS 3 ml) 3 ml PER PROTOCOL IV 09/25/16 01:00 Ondansetron HCl (Zofran Inj) 4 mg Q6H PRN IV NAUSEA AND/OR VOMITING 09/25/16 01:00 Acetaminophen (Tylenol Tab) 650 mg Q6H PRN PO PAIN LEVEL 1-3 OR FEVER 09/25/16 01:00 Acetaminophen/ Hydrocodone Bitart ([place] (5/325)) 1 tab Q6H PRN PO MODERATE PAIN LEVEL 4-6 09/25/16 01:00 Morphine Sulfate (morphine) 2 mg Q4H PRN IV SEVERE PAIN LEVEL 7-10 09/25/16 01:00 Docusate Sodium (Colace) 100 mg Q12H PRN PO CONSTIPATION 09/25/16 01:00 Magnesium Hydroxide (Milk Of Mag) 30 ml DAILY PRN PO CONSTIPATION 09/25/16 01:00 09/25/16 01:36 DC Sodium Biphosphate/ Sodium Phosphate (Fleet Enema) 133 ml DAILY PRN [place] CONSTIPATION 09/25/16 01:00 Heparin Sodium (Porcine) (Heparin (5000 Units/0.5 ml)) 5,000 unit Q12 SC 09/25/16 09:00 Lorazepam (Ativan) 0.5 mg Q6H PRN IV ANXIETY 09/25/16 01:00 Albuterol/ Ipratropium 3 ml 3 ml Q4H RESP THERAPY PRN HHN SHORTNESS OF BREATH 09/25/16 01:00 Levofloxacin/ Dextrose (Levaquin 750 Mg/ D5W 150 ml (Pmx)) 150 ml @ 100 mls/hr DAILY IVPB 09/25/16 09:00 Hydralazine HCl (Apresoline) 10 mg Q6H PRN IV ELEVATED BLOOD PRESSURE 09/25/16 01:00 Nitroglycerin (Nitroglycerin (Sl Tab) 0.4 Mg) 1 tab Q5M PRN SL ANGINA 09/25/16 01:00 Aspirin (Ecotrin) 325 mg DAILY PO 09/25/16 09:00 Acetaminophen (Tylenol Tab) 650 mg Q4 PRN GTB ELEVATED TEMPERATURE 09/25/16 01:00 Albuterol (Proventil 0.083% (Neb)) 2.5 mg Q3H RESP THERAPY PRN NEB WHEEZING AND SOB 09/25/16 01:00 Ascorbic Acid (Vitamin C) 500 mg DAILY GTB 09/25/16 09:00 UNV Atorvastatin Calcium (Lipitor) 20 mg QHS GTB 09/25/16 21:00 Chlorhexidine Gluconate (Peridex) 15 ml Q12 MM 09/25/16 09:00 Digoxin (Digoxin) 0.125 mg DAILY@13 GTB 09/25/16 13:00 Doxazosin Mesylate (Cardura) 4 mg HS GTB 09/25/16 21:00 Ferrous Sulfate (Ferrous Sulfate) 330 mg DAILY GTB 09/25/16 09:00 UNV Magnesium Hydroxide (Milk Of Mag) 30 ml DAILY PRN GTB CONSTIPATION 09/25/16 01:00 Multivitamins Therapeutic (Theragran) 1 tab DAILY GTB 09/25/16 09:00 Miscellaneous Information 1 pkt BID GTB 09/25/16 09:00 UNV Miscellaneous Information 3,875 mg BID GTB 09/25/16 09:00 UNV Miscellaneous Information 160 mg DAILY GTB 09/25/16 09:00 UNV Miscellaneous Information 20 mg 20 mg DAILY GTB 09/25/16 09:00 UNV Diltiazem HCl (Cardizem-D5W 125 Mg/125 ml Drip) 125 ml @ 5 mls/hr TITRATE IV 09/25/16 01:00 09/25/16 01:45 Fenofibrate (Tricor) 145 mg DAILY PO 09/25/16 09:00 Lansoprazole (Prevacid) 30 mg DAILY@06 GTB 09/25/16 06:00 Lactobacillus Acidoph/Bulgaricus (Floranex) 1 tab BID GTB 09/25/16 09:00 Ascorbic Acid (Vitamin C) 500 mg DAILY PO 09/25/16 09:00 Ferrous Sulfate (Feosol Liquid Cup) 300 mg DAILY GTB 09/25/16 09:00 Procedures/MDM Chest X-ray 1V Interpreted by me: Soft Tissue: No acute abnormalities Bones: No acute abnormalities Mediastinum/Cardiac Silhouette/Lungs: No acute abnormalities EKG: Rate/Rhythm: Variable rhythm, variable rates. Variable [place] intervals QRS, ST, T-waves: [No changes consistent w/ acute ischemia] Impression: A. fib with RVR at 1 46 bpm EKG: #2 post Cardizem Rate/Rhythm: Variable [place] intervals, QRS, ST, T-waves: [No changes consistent w/ acute ischemia] Impression: [No evidence of ischemia or arrhythmia] Medical decision-makin-year-old male with a 2 fibrillation rapid ventricular response. Patient treated and placed on Cardizem drip. Patient will be admitted to telemetry. Critical Care: Time: 45 minutes Treatments/Evaluations: Close monitoring and treatment of unstable vital signs, cardiorespiratory, and neurologic status, while maintaining tight balance of fluid, respiratory, and cardiac interventions. Departure Diagnosis: Primary Impression: Paroxysmal atrial fibrillation with rapid ventricular response Additional Impression: Chest pain Qualified Code: R07.9 - Chest pain, unspecified type Condition: Critical GARCIA PERRY Sep 25, 2016 02:20
[2016-09-25 03:10] LABS: CREATINE KINASE < 20 IU/L (23-200)
[2016-09-25 03:17] LABS: CK-MB 0.93 ng/ml (0.0-2.4)
[2016-09-25 03:18] LABS: TROPONIN-I 0.127 ng/ml (0.00-0.12)
[2016-09-25 03:36] LABS: TROPONIN-I 0.123 ng/ml (0.00-0.12)
[2016-09-25] MEDS: LANSOPRAZOLE 30 MG CAP GTB SCH (06:30)
--- NOTE | 2016-09-25 07:04 | HP ---
DATE OF ADMISSION: 09/24/2016 The patient was seen and examined by me at 8 p.m. on 09/24/2016. CHIEF COMPLAINT: Shortness of breath. HISTORY OF PRESENT ILLNESS: A 76-year-old man with past medical history of atrial fibrillation, CAD , COPD, respiratory failure status post tracheostomy placement, hypertension, prior stroke who prese nts with tachycardia and shortness of breath. He also had some chest pressure as well, mild to mode rate in intensity. Chest pain lasted for about 10 minutes, but has been off and on for the past few hours. Having shortness breath that has been going on for about 1 day, mild nausea symptoms. No v omiting, no fever, no chills, no upper or lower GI bleeding. When he came into the ER today, he was found with elevated heart rate in the 140s and 150s, atrial fibrillation with RVR and was started o n Cardizem for that. The patient was last here at our hospital from 08/16/2016 2 to 08/26/2016. At that time, he was treated for a urologic issue and hematuria at that time. PAST MEDICAL HISTORY: As above. ALLERGIES: NO KNOWN DRUG ALLERGIES. HOME MEDICATIONS: 1. Flagyl 500 mg q.8 hours. 2. Albuterol nebulizers q.3 hours p.r.n. 3. Ferrous sulfate. 4. Atorvastatin 20 mg at bedtime. 5. Digoxin 0.125 mg daily. 6. Diltiazem 120 mg daily p.o. 7. ____ mg at bedtime. 8. Fenofibrate 160 mg daily. 9. Tylenol 650 q.4h. p.r.n. 10. Peridex 15 mL q.12 hours. 11. Dulcolax 10 mg p.r.n. 12. Lactinex 1 packet b.i.d. 13. Colace 100 mg daily p.r.n. 14. Milk of magnesia 30 mL daily p.r.n. 15. Fleets enema p.r.n. 16. Omeprazole 20 mg daily. 17. Vitamin C 500 mg daily. 18. Multivitamin 1 tab daily. 19. Cranberry as well. PAST SURGICAL HISTORY: Tracheostomy placement in the past. SOCIAL HISTORY: Negative for smoking, drinking, or IV drug abuse. FAMILY HISTORY: Noncontributory today. PHYSICAL EXAMINATION: VITAL SIGNS: T-max 97.4, pulse 73 to 146, respirations 16, blood pressure 112/80, saturating at 100 % on mechanical ventilation, FIO2 at 40%. GENERAL: The patient opens eyes, lying in bed, no acute distress. HEENT: Pupils equal, round, react to light. Extraocular muscles intact. NECK: Supple. Tracheostomy in place in the site. No bleeding or leakage from the trach site. LUNGS: Distant breath sounds bilaterally. CARDIOVASCULAR: Irregularly irregular heart rate, tachycardic. No rubs or gallops. ABDOMEN: Soft, nontender, nondistended. Normal bowel sounds. No rebound or guarding. MUSCULOSKELETAL: No lower extremity edema bilaterally. NEUROLOGIC: No focal deficits. LABORATORIES: WBC 16.0, hemoglobin 11.9, hematocrit 36.3, platelets of 402. Sodium 146, potassium 4.3, chloride 101, CO2 26, BUN 67, creatinine 1.33, glucose 200, calcium is 10.3. LFTs are normal. First troponin 0.123, second one 0.127. BNP is 14,400. Coags are normal. Chest x-ray: No signif icant interval change compared to 09/03/2016 chest x-ray. There is borderline cardiac silhouette en largement and left basilar subsegmental atelectasis. ASSESSMENT AND PLAN: This is a 76-year-old male coming in with atrial fibrillation with rapid ventr icular response after experiencing chest pressure and shortness of breath. 1. Chest pressure and shortness of breath secondary to atrial fibrillation with rapid ventricular r esponse. Continue Cardizem drip. Get cardiology consult. Continue checking 2-D echocardiogram as well. Continue p.o. digoxin as well. Check TSH, A1c, and lipid panel. 2. History of coronary artery disease. Again, he does have elevated troponins as well. Continue h igh dose aspirin. Trend his troponins. Could be signs of [id number] myocardial infarction ve rsus demand ischemia. We are going to get a cardiology consult. Continue high dose Lipitor and asp irin. 3. Morphine, oxygen, nitrates p.r.n. 4. History of prior stroke. Continue to monitor for now. 5. History of essential hypertension. Continue current medications. 6. History of respiratory failure along with tracheostomy. Get a pulmonary consult. Continue DuoN ebs p.r.n. 7. Gastrointestinal prophylaxis. Prevacid. 8. Deep venous thrombosis prophylaxis. Heparin subQ. Get PT and OT consult. Dictated By: CAROLINE WALL Conf#: [id number] DID#: [id number]
[2016-09-25 07:18] LABS: CK-MB 0.96 ng/ml (0.0-2.4); CREATINE KINASE < 20 IU/L (23-200)
[2016-09-25] MEDS ORDERED: ASCORBIC ACID 100 MG/ML 120ML BTL GTB SCH (09:00)
[2016-09-25] MEDS ORDERED: NON-FORMULARY/PATIENT OWN MED (Omeprazole* 20 MG) GTB SCH (09:00)
[2016-09-25] MEDS ORDERED: [UNRECOGNIZED DRUG - OTHER] GTB SCH (09:00)
[2016-09-25] MEDS ORDERED: NON-FORMULARY/PATIENT OWN MED (Fenofibrate, Micronized* (Fenofibrate*) 160 MG) GTB SCH (09:00)
[2016-09-25] MEDS ORDERED: FERROUS SULFATE 220 MG/5 ML ML GTB SCH (09:00)
[2016-09-25] MEDS ORDERED: NON-FORMULARY/PATIENT OWN MED (Cran/Vitc/Mannose/Inulin/Brom (Uti-Stat Liquid) 3,875 MG) GTB SCH (09:00)
[2016-09-25] MEDS: ASPIRIN (EC) 325 MG TAB PO SCH (10:07)
[2016-09-25] MEDS: FERROUS SULFATE 60 MG/ML 5ML CUP GTB SCH (10:08)
[2016-09-25] MEDS: MULTIVITAMINS THERAPEUTIC TAB GTB SCH (10:08)
[2016-09-25] MEDS: LEVOFLOXACIN 750MG/D5W (PMX) 150 ML IVPB SCH (10:08)
[2016-09-25] MEDS: FENOFIBRATE 145 MG TAB PO SCH (10:08)
[2016-09-25] MEDS: ASCORBIC ACID 500 MG TAB PO SCH (10:08)
[2016-09-25] MEDS: LACTOBACILLUS CHEW TAB GTB SCH ×2 (10:08→22:11)
[2016-09-25] MEDS: CHLORHEXIDINE GLUCONATE 15 ML UD CUP MM SCH ×2 (10:08→22:11)
[2016-09-25] MEDS: HEPARIN 5,000 UNIT/0.5 ML SYG SC SCH ×2 (10:11→21:47)
[2016-09-25 12:10] LABS: CREATINE KINASE < 20 IU/L (23-200)
[2016-09-25 12:21] LABS: TROPONIN-I 0.078 ng/ml (0.00-0.12)
[2016-09-25 12:38] LABS: CK-MB 0.81 ng/ml (0.0-2.4)
[2016-09-25] MEDS: DIGOXIN 0.125 MG TAB GTB SCH (13:00)
--- NOTE | 2016-09-25 14:25 | PN ---
Date/Time of Note Date/Time of Note DATE: 09/25/16 TIME: 14:20 Assessment/Plan VTE Prophylaxis VTE Prophylaxis Intervention: heparin Lines/Catheters IV [facility]ter Type [facility]from [facility] Assessment/Plan Chief Complaint/Hosp Course ASSESSMENT AND PLAN: 1. atrial fibrillation with rapid ventricular response , rate controlled, status post Cardizem drip, cardiology has been consulted 2. Chest pressure and shortness of breath secondary to atrial fibrillation with rapid ventricular response. Continue Cardizem drip. Continue p.o. digoxin 3. History of coronary artery disease. With elevated troponins which is trending down. Continue high dose aspirin. 4. NSTEMI versus demand ischemia. cardiology consult. Continue high dose Lipitor and aspirin. Morphine, oxygen, nitrates p.r.n. 5. History of prior stroke. Continue medical management 6. History of essential hypertension. Continue current medications. 7. History of respiratory failure along with tracheostomy. pulmonary consult. Continue DuoNebs p.r.n. 8. Urinary tract infection, continue Levaquin 9. Gastrointestinal prophylaxis. Prevacid. 10. Deep venous thrombosis prophylaxis. Heparin subQ. We will continue monitor patient closely for recommendation management treatment as clinical course Problems: Subjective 24 Hr Interval Summary Free Text/Dictation Patient is awake and alert though does not respond to verbal stimuli A phasic Exam/Review of Systems Vital Signs Vitals Vital Signs Date Time Temp Pulse Resp B/P Pulse Ox O2 Delivery O2 Flow Rate FiO2 09/25/16 13:00 77 16 100 40 09/25/16 12:33 98.0 110/72 Mechanical Ventilator Exam General: The patient is cachectic, Not in acute distress. HEENT: Atraumatic, normocephalic. The pupils are equal and round . Neck: Tracheostomy in place Chest: Normal expansion of the thorax during inspiration Lungs: Clear to auscultation bilaterally Heart: Normal S1-S2, Regular rhythm and rate. Abdomen: Soft , nontender, nondistended , bowel sounds are present. Extremities: Bilateral upper and lower extremity weakness, no edema no cyanosis Neurologic: The patient is awake, although neurologic for the examination is limited Results Result Diagram: 09/24/16222409/24/162224 Results 24 hrs Laboratory Tests Test 09/24/16 22:25 09/24/16 22:30 09/25/16 02:38 09/25/16 05:30 Activated Partial Thromboplast Time 29.2 Alanine Aminotransferase (ALT/SGPT) 15 Albumin 3.8 Albumin/Globulin Ratio 0.82 Alkaline Phosphatase 148 H Anion Gap 23 H Aspartate Amino Transf (AST/SGOT) 36 B-Type Natriuretic Peptide 69743 H Basophils # 0.1 Basophils % 0.4 Blood Urea Nitrogen 67 H Calcium Level 10.3 H Carbon Dioxide Level 26 Chloride Level 101 Creatinine 1.33 H Direct Bilirubin 0.00 Eosinophils # 0.9 H Eosinophils % 5.8 Globulin 4.60 H Glucose Level 200 Hematocrit 36.2 #L Hemoglobin 11.0 #L INR International Normalized Ratio 1.00 Indirect Bilirubin 0.0 Lymphocytes # 2.9 Lymphocytes % 18.2 Mean Corpuscular Hemoglobin 27.1 L Mean Corpuscular Hemoglobin Concent 30.4 L Mean Corpuscular Volume 89.2 Mean Platelet Volume 10.9 H Monocytes # 1.5 H Monocytes % 9.2 Neutrophils # 10.5 H Neutrophils % 65.8 Nucleated Red Blood Cells # 0.0 Nucleated Red Blood Cells % 0.0 Platelet Count 402 Potassium Level 4.3 Prothrombin Time 13.2 # Prothrombin Time Ratio 1.0 Red Blood Count 4.06 #L Red Cell Distribution Width 17.2 H Sodium Level 146 H Total Bilirubin 0.0 L Total Protein 8.4 H Troponin I 0.123 *H 0.127 *H 0.100 White Blood Count 16.0 #H Arterial Blood HCO3 25.3 Arterial Blood Base Excess 1.7 Arterial Blood Oxygen Saturation 98.2 Vinayak Test ACCEPTAB Arterial Blood Gas Puncture Site Right Radial Arterial Blood Carboxyhemoglobin 0.3 Arterial Blood Date Drawn 09/24/2016 10:47:40 PM Arterial Blood Methemoglobin 0.4 Arterial Blood pCO2 (Temp correct) 36.1 Arterial Blood pH (Temp corrected) 7.463 H Arterial Blood pO2 (Temp corrected) 123.7 H Blood Gas A-a O2 Differential 120.0 H Blood Gas Actual Respiration Rate 20 Blood Gas Inspiratory Pressure 17.0 Blood Gas Low PEEP Setting 5.0 Blood Gas Modality VENT - AC Blood Gas Notified Time 09/24/2016 10:50:16 PM Blood Gas Notified Whom BR Blood Gas Respiration Rate 16.0 Blood Gas Specimen Source Blood arterial Blood Gas Temperature 37.0 Blood Gas Tidal Volume 500.0 FiO2 40.0 Oxyhemoglobin Percent 97.5 Total Hemoglobin 12.5 Creatine Kinase < 20 L < 20 L Creatine Kinase Index Creatinine Kinase MB (Mass) 0.93 0.96 Free Thyroxine 1.85 Test 09/25/16 11:35 Creatine Kinase < 20 L Creatine Kinase Index Creatinine Kinase MB (Mass) 0.81 Troponin I 0.078 Medications Medications Current Medications Ondansetron HCl (Zofran Inj) 4 mg Q6H PRN IV NAUSEA AND/OR VOMITING; Start 09/25 at 01:00 Acetaminophen (Tylenol Tab) 650 mg Q6H PRN PO PAIN LEVEL 1-3 OR FEVER; Start at 01:00 Acetaminophen/ Hydrocodone Bitart ([place] (5/325)) 1 tab Q6H PRN PO MODERATE PAIN LEVEL 4-6; Start 09/25/16 at 01:00 Morphine Sulfate (morphine) 2 mg Q4H PRN IV SEVERE PAIN LEVEL 7-10; Start at 01:00 Docusate Sodium (Colace) 100 mg Q12H PRN PO CONSTIPATION; Start 09/25/16 at 01: 00 Sodium Biphosphate/ Sodium Phosphate (Fleet Enema) 133 ml DAILY PRN [place] CONSTIPATION; Start 09/25/16 at 01:00 Heparin Sodium (Porcine) (Heparin (5000 Units/0.5 ml)) 5,000 unit Q12 SC Last administered on 09/25/16 10:11; Admin Dose 5,000 UNIT; Start 09/25/16 at 09:00 Lorazepam 0.5 mg 0.5 mg Q6H PRN IV ANXIETY; Start 09/25/16 at 01:00 Levofloxacin/ Dextrose (Levaquin 750 Mg/ D5W 150 ml (Pmx)) 150 ml @ 100 mls/hr DAILY IVPB Last administered on 09/25/16 10:08; Admin Dose 100 MLS/HR; Start at 09:00 Hydralazine HCl (Apresoline) 10 mg Q6H PRN IV ELEVATED BLOOD PRESSURE; Start at 01:00 Nitroglycerin (Nitroglycerin (Sl Tab) 0.4 Mg) 1 tab Q5M PRN SL ANGINA; Start at 01:00 Aspirin (Ecotrin) 325 mg DAILY PO Last administered on 09/25/16 10:07; Admin Dose 325 MG; Start 09/25/16 at 09:00 Acetaminophen (Tylenol Tab) 650 mg Q4 PRN GTB ELEVATED TEMPERATURE; Start at 01:00 Atorvastatin Calcium (Lipitor) 20 mg QHS GTB ; Start 09/25/16 at 21:00 Chlorhexidine Gluconate (Peridex) 15 ml Q12 MM Last administered on 09/25/16 10 :08; Admin Dose 15 ML; Start 09/25/16 at 09:00 Digoxin (Digoxin) 0.125 mg DAILY@13 GTB ; Start 09/25/16 at 13:00 Doxazosin Mesylate (Cardura) 4 mg HS GTB ; Start 09/25/16 at 21:00 Magnesium Hydroxide (Milk Of Mag) 30 ml DAILY PRN GTB CONSTIPATION; Start at 01:00 Multivitamins Therapeutic 1 tab 1 tab DAILY GTB Last administered on 09/25/16 10:08; Admin Dose 1 TAB; Start 09/25/16 at 09:00 Diltiazem HCl (Cardizem-D5W 125 Mg/125 ml Drip) 125 ml @ 5 mls/hr TITRATE IV Last administered on 09/25/16 01:45; Admin Dose 5 MLS/HR; Start 09/25/16 at 01:00 Fenofibrate (Tricor) 145 mg DAILY PO Last administered on 09/25/16 10:08; Admin Dose 145 MG; Start 09/25/16 at 09:00 Lansoprazole (Prevacid) 30 mg DAILY@06 GTB Last administered on 09/25/16 06:30 ; Admin Dose 30 MG; Start 09/25/16 at 06:00 Lactobacillus Acidoph/Bulgaricus (Floranex) 1 tab BID GTB Last administered on 09/25/16 10:08; Admin Dose 1 TAB; Start 09/25/16 at 09:00 Ascorbic Acid (Vitamin C) 500 mg DAILY PO Last administered on 09/25/16 10:08; Admin Dose 500 MG; Start 09/25/16 at 09:00 Ferrous Sulfate (Feosol Liquid Cup) 300 mg DAILY GTB Last administered on 10:08; Admin Dose 300 MG; Start 09/25/16 at 09:00 DILIP ARELLANO MD Sep 25, 2016 14:25
--- NOTE | 2016-09-25 16:08 | CONS ---
Date/Time of Note Date/Time of Note DATE: 09/25/16 TIME: 16:03 Assessment/Plan Assessment/Plan Additional Assessment/Plan SIRS Paroxysmal atrial fibrillation/flutter Paroxysmal supraventricular tachycardia Preserved ejection fraction Respiratory failure status post tracheostomy History of CVA -Patient initially with tachycardia. He has a known history of atrial flutter and fibrillation as well as SVT. Heart rate improved on IV Cardizem. With switch to p.o. as blood pressure tolerates. Continue digoxin. Antibiotics as per our primary team colleagues. Withhold any antihypertensives at the current time given labile blood pressure. Consultation Date/Type/Reason Admit Date/Time Type of Consultation: cv Reason for Consultation Tachycardia and shortness of breath Hx of Present Illness This is a 76-year-old male who was transferred to our facility from a correction secondary to tachycardia, shortness of breath. Patient with history of tracheostomy. Patient was noted to have increased respiratory rates and increased secretions from the tracheostomy. Was also found to be tachycardic as well. Patient initially was having symptoms of chest pain and palpitations which has since resolved since heart rate has been controlled. He feels much better right now. He denies chest pain, palpitations, shortness of breath. He is able to answer yes or no questions by nodding his head. 12 point review of systems was performed with all pertinent positives and negatives mentioned above and all else is negative Past Medical History Paroxysmal atrial fibrillation/flutter Paroxysmal supraventricular tachycardia History of hematuria Preserved ejection fraction Respiratory failure status post tracheostomy History of CVA Past Surgical History Tracheostomy PEG placement Family History Significant Family History: no pertinent family hx Social History Smoking Status: Unknown if ever smoked Other Social History Patient from halfway facility Exam/Review of Systems Vital Signs Vitals Vital Signs Date Time Temp Pulse Resp B/P Pulse Ox O2 Delivery O2 Flow Rate FiO2 09/25/16 13:00 77 16 100 40 09/25/16 12:33 98.0 110/72 Mechanical Ventilator Exam Follows commands, no apparent distress, able to answer yes and no questions Constitutional: alert Head: normocephalic Neck: other (Tracheostomy) Respiratory: other (Coarse breath sounds bilaterally, no wheezing) Cardiovascular: irregular rhythm, other (S1-S2 heard) Gastrointestinal: bowel sounds, non-tender, other (No guarding), soft Extremities: other (No edema or cyanosis) Results Result Diagram: 09/24/165 09/24/16 2225 Results 24 hrs Laboratory Tests Test 09/24/16 22:25 09/24/16 22:30 09/25/16 02:38 09/25/16 05:30 Activated Partial Thromboplast Time 29.2 Alanine Aminotransferase (ALT/SGPT) 15 Albumin 3.8 Albumin/Globulin Ratio 0.82 Alkaline Phosphatase 148 H Anion Gap 23 H Aspartate Amino Transf (AST/SGOT) 36 B-Type Natriuretic Peptide 15974 H Basophils # 0.1 Basophils % 0.4 Blood Urea Nitrogen 67 H Calcium Level 10.3 H Carbon Dioxide Level 26 Chloride Level 101 Creatinine 1.33 H Direct Bilirubin 0.00 Eosinophils # 0.9 H Eosinophils % 5.8 Globulin 4.60 H Glucose Level 200 Hematocrit 36.2 #L Hemoglobin 11.0 #L INR International Normalized Ratio 1.00 Indirect Bilirubin 0.0 Lymphocytes # 2.9 Lymphocytes % 18.2 Mean Corpuscular Hemoglobin 27.1 L Mean Corpuscular Hemoglobin Concent 30.4 L Mean Corpuscular Volume 89.2 Mean Platelet Volume 10.9 H Monocytes # 1.5 H Monocytes % 9.2 Neutrophils # 10.5 H Neutrophils % 65.8 Nucleated Red Blood Cells # 0.0 Nucleated Red Blood Cells % 0.0 Platelet Count 402 Potassium Level 4.3 Prothrombin Time 13.2 # Prothrombin Time Ratio 1.0 Red Blood Count 4.06 #L Red Cell Distribution Width 17.2 H Sodium Level 146 H Total Bilirubin 0.0 L Total Protein 8.4 H Troponin I 0.123 *H 0.127 *H 0.100 White Blood Count 16.0 #H Arterial Blood HCO3 25.3 Arterial Blood Base Excess 1.7 Arterial Blood Oxygen Saturation 98.2 Vinayak Test ACCEPTAB Arterial Blood Gas Puncture Site Right Radial Arterial Blood Carboxyhemoglobin 0.3 Arterial Blood Date Drawn 09/24/2016 10:47:40 PM Arterial Blood Methemoglobin 0.4 Arterial Blood pCO2 (Temp correct) 36.1 Arterial Blood pH (Temp corrected) 7.463 H Arterial Blood pO2 (Temp corrected) 123.7 H Blood Gas A-a O2 Differential 120.0 H Blood Gas Actual Respiration Rate 20 Blood Gas Inspiratory Pressure 17.0 Blood Gas Low PEEP Setting 5.0 Blood Gas Modality VENT - AC Blood Gas Notified Time 09/24/2016 10:50:16 PM Blood Gas Notified Whom BR Blood Gas Respiration Rate 16.0 Blood Gas Specimen Source Blood arterial Blood Gas Temperature 37.0 Blood Gas Tidal Volume 500.0 FiO2 40.0 Oxyhemoglobin Percent 97.5 Total Hemoglobin 12.5 Creatine Kinase < 20 L < 20 L Creatine Kinase Index Creatinine Kinase MB (Mass) 0.93 0.96 Free Thyroxine 1.85 Test 09/25/16 11:35 Creatine Kinase < 20 L Creatine Kinase Index Creatinine Kinase MB (Mass) 0.81 Troponin I 0.078 Medications Medications Current Medications Ondansetron HCl (Zofran Inj) 4 mg Q6H PRN IV NAUSEA AND/OR VOMITING; Start 09/25 at 01:00 Acetaminophen (Tylenol Tab) 650 mg Q6H PRN PO PAIN LEVEL 1-3 OR FEVER; Start at 01:00 Acetaminophen/ Hydrocodone Bitart ([place] (5/325)) 1 tab Q6H PRN PO MODERATE PAIN LEVEL 4-6; Start 09/25/16 at 01:00 Morphine Sulfate (morphine) 2 mg Q4H PRN IV SEVERE PAIN LEVEL 7-10; Start at 01:00 Docusate Sodium (Colace) 100 mg Q12H PRN PO CONSTIPATION; Start 09/25/16 at 01: 00 Sodium Biphosphate/ Sodium Phosphate (Fleet Enema) 133 ml DAILY PRN [place] CONSTIPATION; Start 09/25/16 at 01:00 Heparin Sodium (Porcine) (Heparin (5000 Units/0.5 ml)) 5,000 unit Q12 SC Last administered on 09/25/16 10:11; Admin Dose 5,000 UNIT; Start 09/25/16 at 09:00 Lorazepam 0.5 mg 0.5 mg Q6H PRN IV ANXIETY; Start 09/25/16 at 01:00 Levofloxacin/ Dextrose (Levaquin 750 Mg/ D5W 150 ml (Pmx)) 150 ml @ 100 mls/hr DAILY IVPB Last administered on 09/25/16 10:08; Admin Dose 100 MLS/HR; Start at 09:00 Hydralazine HCl (Apresoline) 10 mg Q6H PRN IV ELEVATED BLOOD PRESSURE; Start at 01:00 Nitroglycerin (Nitroglycerin (Sl Tab) 0.4 Mg) 1 tab Q5M PRN SL ANGINA; Start at 01:00 Aspirin (Ecotrin) 325 mg DAILY PO Last administered on 09/25/16 10:07; Admin Dose 325 MG; Start 09/25/16 at 09:00 Acetaminophen (Tylenol Tab) 650 mg Q4 PRN GTB ELEVATED TEMPERATURE; Start at 01:00 Atorvastatin Calcium (Lipitor) 20 mg QHS GTB ; Start 09/25/16 at 21:00 Chlorhexidine Gluconate (Peridex) 15 ml Q12 MM Last administered on 09/25/16 10 :08; Admin Dose 15 ML; Start 09/25/16 at 09:00 Digoxin (Digoxin) 0.125 mg DAILY@13 GTB Last administered on 09/25/16 13:00; Admin Dose 0.125 MG; Start 09/25/16 at 13:00 Doxazosin Mesylate (Cardura) 4 mg HS GTB ; Start 09/25/16 at 21:00 Magnesium Hydroxide (Milk Of Mag) 30 ml DAILY PRN GTB CONSTIPATION; Start at 01:00 Multivitamins Therapeutic 1 tab 1 tab DAILY GTB Last administered on 09/25/16 10:08; Admin Dose 1 TAB; Start 09/25/16 at 09:00 Diltiazem HCl (Cardizem-D5W 125 Mg/125 ml Drip) 125 ml @ 5 mls/hr TITRATE IV Last administered on 09/25/16 01:45; Admin Dose 5 MLS/HR; Start 09/25/16 at 01:00 Fenofibrate (Tricor) 145 mg DAILY PO Last administered on 09/25/16 10:08; Admin Dose 145 MG; Start 09/25/16 at 09:00 Lansoprazole (Prevacid) 30 mg DAILY@06 GTB Last administered on 09/25/16 06:30 ; Admin Dose 30 MG; Start 09/25/16 at 06:00 Lactobacillus Acidoph/Bulgaricus (Floranex) 1 tab BID GTB Last administered on 09/25/16 10:08; Admin Dose 1 TAB; Start 09/25/16 at 09:00 Ascorbic Acid (Vitamin C) 500 mg DAILY PO Last administered on 09/25/16 10:08; Admin Dose 500 MG; Start 09/25/16 at 09:00 Ferrous Sulfate (Feosol Liquid Cup) 300 mg DAILY GTB Last administered on t 10:08; Admin Dose 300 MG; Start 09/25/16 at 09:00 Procedures Procedures Initial ECG with supraventricular tachycardia with heart rates in the 140s, possibly atrial flutter Ervin Ceja DO Sep 25, 2016 16:08
[2016-09-25] MEDS: LORAZEPAM 2 MG INJ IV PRN (18:23)
[2016-09-25 18:30] VITALS: TEMP 99.6
[2016-09-25] MEDS ORDERED: DOXAZOSIN 4 MG TAB GTB SCH (21:00)
[2016-09-25] MEDS: ATORVASTATIN 20 MG TAB GTB SCH (22:12)
[2016-09-25] MEDS: SOD CHLORIDE 0.9% 1,000 ML IV SCH (23:18)
[2016-09-26] VITALS (24 sets, daily range): BP systolic 92–145; BP diastolic 49–105; PULSE 70–147; RESP 14–35
[2016-09-26] MEDS: LANSOPRAZOLE 30 MG CAP GTB SCH (04:58)
[2016-09-26] MEDS: SOD CHLORIDE 0.9% 1,000 ML IV SCH ×2 (07:46→20:00)
[2016-09-26 08:35] LABS: ADD SCAN DIFF NO
--- NOTE | 2016-09-26 08:37 | CONS ---
Date/Time of Note Date/Time of Note DATE: 09/26/16 TIME: 08:32 Assessment/Plan Assessment/Plan Additional Assessment/Plan Continue to settings; AC of 16, tidal volume of 500, PEEP of 5, 30% FiO2. Chest x-ray was reviewed from the fifth of this month which is essentially clear. Assessment recommendations; 1. Patient admitted with atrial fibrillation with rapid ventricular response doing well now converted to sinus rhythm. 2. History of respiratory failure in the past not requiring invasive mechanical ventilation. ABG showing mild respiratory alkalosis. 3. History of hypertension. 4. History of COPD. Continue current supportive care. Wean the patient down to cool aerosol via tracheostomy as tolerated. Consultation Date/Type/Reason Admit Date/Time Date of Consultation: Sep 26, 2016 Type of Consultation: Pulmonary/critical care Reason for Consultation Pulmonary/critical care consult obtained for management of chronic respiratory failure. Patient admitted to hospital for atrial fibrillation with rapid ventricular response. Does not take any; patient is 76-year-old white male who was admitted to the hospital sent over to the ER from retirement on the fifth of this month with complaints of atrial fibrillation with rapid ventricular response. The patient was treated intravenously with medications with conversion to sinus rhythm patient was supposed to be admitted to telemetry unit however because of bed shortage patient has been transferred to ICU for continuation of care. The patient currently is on ventilator via tracheostomy is awake and follows very simple commands. Has remained hemodynamically stable not requiring any pressor support. Past medical history; next 1. Patient with a history of respiratory failure was weaned down to cool aerosol via T-piece transfer to retirement but is currently back on invasive mechanical ventilation. 2. History of CVA. 3. History of COPD. 4. History of paroxysmal atrial fibrillation Medications; were reviewed. Allergies; none. Social history; patient has a history of smoking in the past. Family history; not available. Occupational history; patient on disability. Review of systems; unable to be obtained. General exam; elderly male, awake, follows very simple commands like mouth opening and some eye movements. Social History Smoking Status: Unknown if ever smoked Exam/Review of Systems Vital Signs Vitals Vital Signs Date Time Temp Pulse Resp B/P Pulse Ox O2 Delivery O2 Flow Rate FiO2 09/26/16 05:46 92 18 100 30 09/26/16 05:09 116/67 Mechanical Ventilator Trach Collar 09/25/16 18:30 99.6 Intake and Output 09/25/16 09/25/16 09/26/16 15:00 23:00 07:00 Intake Total 900 ml Output Total 900 ml Balance 0 ml Exam H EENT examination; supple neck, no JVD. No lymphadenopathy. Midline trachea. No thyromegaly. Pharynx is clear. Fair dentition. Tracheostomy in place with clean insertion site. Pupils are midsize and reactive to light bilaterally. Chest examination; diminished but clear breath sounds bilaterally. S1-S2 audible, no murmurs. Regular rhythm. Abdomen examination; soft, nondistended, nontender. G-tube in place. Bowel sounds audible. No organomegaly. Extremity examination; no peripheral edema. Next [place] examination; patient does have contracture involving upper extremities. Able to move lower extremities able to move left upper extremity to some extent. Results Result Diagram: 09/24/16222409/24/162224 Results 24 hrs Laboratory Tests Test 09/25/16 11:35 09/25/16 19:52 Creatine Kinase < 20 L Creatine Kinase Index Creatinine Kinase MB (Mass) 0.81 Troponin I 0.078 Bedside Glucose 136 Medications Medications Current Medications Ondansetron HCl (Zofran Inj) 4 mg Q6H PRN IV NAUSEA AND/OR VOMITING; Start 09/25 at 01:00 Acetaminophen (Tylenol Tab) 650 mg Q6H PRN PO PAIN LEVEL 1-3 OR FEVER; Start at 01:00 Acetaminophen/ Hydrocodone Bitart ([place] (5/325)) 1 tab Q6H PRN PO MODERATE PAIN LEVEL 4-6; Start 09/25/16 at 01:00 Morphine Sulfate (morphine) 2 mg Q4H PRN IV SEVERE PAIN LEVEL 7-10; Start at 01:00 Docusate Sodium (Colace) 100 mg Q12H PRN PO CONSTIPATION; Start 09/25/16 at 01: 00 Sodium Biphosphate/ Sodium Phosphate (Fleet Enema) 133 ml DAILY PRN [place] CONSTIPATION; Start 09/25/16 at 01:00 Heparin Sodium (Porcine) (Heparin (5000 Units/0.5 ml)) 5,000 unit Q12 SC Last administered on 09/25/16t 21:47; Admin Dose 5,000 UNIT; Start 09/25/16 at 09:00 Lorazepam 0.5 mg 0.5 mg Q6H PRN IV ANXIETY Last administered on 09/25/16 18:23 ; Admin Dose 0.5 MG; Start 09/25/16 at 01:00 Levofloxacin/ Dextrose (Levaquin 750 Mg/ D5W 150 ml (Pmx)) 150 ml @ 100 mls/hr DAILY IVPB Last administered on 09/25/16 10:08; Admin Dose 100 MLS/HR; Start at 09:00 Hydralazine HCl (Apresoline) 10 mg Q6H PRN IV ELEVATED BLOOD PRESSURE; Start at 01:00 Nitroglycerin (Nitroglycerin (Sl Tab) 0.4 Mg) 1 tab Q5M PRN SL ANGINA; Start at 01:00 Aspirin (Ecotrin) 325 mg DAILY PO Last administered on 09/25/16 10:07; Admin Dose 325 MG; Start 09/25/16 at 09:00 Acetaminophen (Tylenol Tab) 650 mg Q4 PRN GTB ELEVATED TEMPERATURE; Start at 01:00 Atorvastatin Calcium (Lipitor) 20 mg QHS GTB Last administered on 09/25/16 22: 12; Admin Dose 20 MG; Start 09/25/16 at 21:00 Chlorhexidine Gluconate (Peridex) 15 ml Q12 MM Last administered on 09/25/16 22 :11; Admin Dose 15 ML; Start 09/25/16 at 09:00 Digoxin (Digoxin) 0.125 mg DAILY@13 GTB Last administered on 09/25/16 13:00; Admin Dose 0.125 MG; Start 09/25/16 at 13:00 Doxazosin Mesylate (Cardura) 4 mg HS GTB ; Start 09/25/16 at 21:00 Magnesium Hydroxide (Milk Of Mag) 30 ml DAILY PRN GTB CONSTIPATION; Start at 01:00 Multivitamins Therapeutic 1 tab 1 tab DAILY GTB Last administered on 09/25/16 10:08; Admin Dose 1 TAB; Start 09/25/16 at 09:00 Diltiazem HCl (Cardizem-D5W 125 Mg/125 ml Drip) 125 ml @ 5 mls/hr TITRATE IV Last administered on 09/25/16 19:07; Admin Dose 5 MLS/HR; Start 09/25/16 at 01:00 Fenofibrate (Tricor) 145 mg DAILY PO Last administered on 09/25/16 10:08; Admin Dose 145 MG; Start 09/25/16 at 09:00 Lansoprazole (Prevacid) 30 mg DAILY@06 GTB Last administered on 09/26/16 04:58 ; Admin Dose 30 MG; Start 09/25/16 at 06:00 Lactobacillus Acidoph/Bulgaricus (Floranex) 1 tab BID GTB Last administered on 09/25/16 22:11; Admin Dose 1 TAB; Start 09/25/16 at 09:00 Ascorbic Acid (Vitamin C) 500 mg DAILY PO Last administered on 09/25/16 10:08; Admin Dose 500 MG; Start 09/25/16 at 09:00 Ferrous Sulfate 300 mg 300 mg DAILY GTB Last administered on 09/25/16 10:08; Admin Dose 300 MG; Start 09/25/16 at 09:00 Sodium Chloride (NS) 1,000 ml @ 100 mls/hr Q10H IV Last administered on 07:46; Admin Dose 100 MLS/HR; Start 09/25/16 at 23:00 Diltiazem HCl (Cardizem Cd) 120 mg DAILY PO ; Start 09/26/16 at 09:00 JORGE ROBLES 7, 2017 08:37
[2016-09-26 08:47] LABS: POTASSIUM 3.8 mmol/L (3.5-5.1)
[2016-09-26 08:49] LABS: CHOL/HDL RATIO 7.8 RATIO; CREATININE 1.46 mg/dl (0.61-1.24)
[2016-09-26 08:50] LABS: CALCIUM 8.9 mg/dl (8.4-10.2); MAGNESIUM 2.6 mg/dl (1.7-2.5); PHOSPHORUS 4.6 mg/dl (2.5-4.9)
[2016-09-26 08:54] LABS: BASOPHILS % 0.4 % (0.0-2.0); EOSINOPHILS # 0.8 10^3/ul (0.0-0.5); EOSINOPHILS % 7.4 % (0.0-7.0); HEMATOCRIT 31.7 % (42.0-52.0); HEMOGLOBIN 9.5 g/dl (14.0-18.0); LYMPHOCYTES # 2.1 10^3/ul (0.8-2.9); LYMPHOCYTES % 18.8 % (15.0-51.0); MEAN CORPUSCULAR HEMOGLOBIN 26.7 pg (29.0-33.0); MEAN PLATELET VOLUME 10.9 fl (7.4-10.4); MONOCYTE # 0.9 10^3/ul (0.3-0.9); MONOCYTES % 8.1 % (0.0-11.0); NEUTROPHIL # 7.3 10^3/ul (1.6-7.5); NEUTROPHILS % 64.6 % (39.0-77.0); PLATELET COUNT 308 10^3/UL (140-415); RED BLOOD COUNT 3.56 10^6/ul (4.70-6.10); RED CELL DISTRIBUTION WIDTH 16.9 % (11.5-14.5); WHITE BLOOD COUNT 11.3 10^3/ul (4.8-10.8)
[2016-09-26] MEDS: ASPIRIN (EC) 325 MG TAB PO SCH (09:00)
[2016-09-26 09:20] LABS: THYROID STIMULATING HORMONE 1.16 MIU/L (0.465-4.680)
[2016-09-26] MEDS: HEPARIN 5,000 UNIT/0.5 ML SYG SC SCH ×2 (09:40→20:27)
[2016-09-26] MEDS: MULTIVITAMINS THERAPEUTIC TAB GTB SCH (09:40)
[2016-09-26] MEDS: ASCORBIC ACID 500 MG TAB PO SCH (09:40)
[2016-09-26] MEDS: CHLORHEXIDINE GLUCONATE 15 ML UD CUP MM SCH ×2 (09:40→20:15)
[2016-09-26] MEDS: LACTOBACILLUS CHEW TAB GTB SCH ×2 (09:40→20:15)
[2016-09-26] MEDS: FENOFIBRATE 145 MG TAB PO SCH (09:41)
[2016-09-26] MEDS: FERROUS SULFATE 60 MG/ML 5ML CUP GTB SCH (09:41)
[2016-09-26] MEDS: DILTIAZEM (CD) 120 MG CAP PO SCH (10:25)
[2016-09-26] MEDS: LEVOFLOXACIN 750MG/D5W (PMX) 150 ML IVPB SCH (11:01)
[2016-09-26] MEDS: DILTIAZEM-D5W 125MG/125ML DRIP 125 ML IV SCH (11:57)
[2016-09-26] MEDS ORDERED: AMIODARONE 150MG/D5W BOLUS 100 ML IV ONE (13:00)
--- NOTE | 2016-09-26 13:36 | CONS ---
Date/Time of Note Date/Time of Note DATE: 09/26/16 TIME: 13:33 Assessment/Plan Assessment/Plan Additional Assessment/Plan SIRS Paroxysmal atrial fibrillation/flutter Paroxysmal supraventricular tachycardia Preserved ejection fraction Respiratory failure status post tracheostomy History of CVA -Patient with atrial flutter with rapid ventricular rates this morning. Blood pressure has worsened since rapid rates. Would start amiodarone, continue digoxin. Patient has been off anticoagulation secondary to recurrent hematuria Consultation Date/Type/Reason Admit Date/Time Sep 26, 2016 at 07:55 Initial Consult Date 09/26/16 Type of Consultation: cv 24 HR Interval Summary Free Text/Dictation Patient with rapid atrial flutter this morning. Denies palpitations, chest pain or shortness of breath Exam/Review of Systems Vital Signs Vitals Vital Signs Date Time Temp Pulse Resp B/P Pulse Ox O2 Delivery O2 Flow Rate FiO2 09/26/16 12:00 146 09/26/16 05:46 18 100 30 09/26/16 05:09 116/67 Mechanical Ventilator Trach Collar 09/25/16 18:30 99.6 Intake and Output 09/25/16 09/25/16 09/26/16 15:00 23:00 07:00 Intake Total 900 ml Output Total 900 ml Balance 0 ml Exam Follows commands, no apparent distress Constitutional: alert Head: normocephalic Neck: other (Tracheostomy) Respiratory: other (Coarse breath sounds bilaterally, no wheezing) Cardiovascular: other (S1-S2 heard), regular rate and rhythm (Tachycardic) Gastrointestinal: bowel sounds, non-tender, other (No guarding), soft Extremities: edema (Trace) Results Result Diagram: 09/26/16 0828 09/26/16 0828 Results 24 hrs Laboratory Tests Test 09/25/16 19:52 09/26/16 08:28 Bedside Glucose 136 Anion Gap 20 H Basophils # 0.0 Basophils % 0.4 Blood Urea Nitrogen 74 H Calcium Level 8.9 Carbon Dioxide Level 23 Chloride Level 107 Cholesterol Level 149 Cholesterol/HDL Ratio 7.8 Creatinine 1.46 H Eosinophils # 0.8 H Eosinophils % 7.4 H Glucose Level 116 # HDL Cholesterol 19 L Hematocrit 31.7 L Hemoglobin 9.5 L LDL Cholesterol, Calculated 15 Lymphocytes # 2.1 Lymphocytes % 18.8 Magnesium Level 2.6 H Mean Corpuscular Hemoglobin 26.7 L Mean Corpuscular Hemoglobin Concent 30.0 L Mean Corpuscular Volume 89.0 Mean Platelet Volume 10.9 H Monocytes # 0.9 Monocytes % 8.1 Neutrophils # 7.3 Neutrophils % 64.6 Nucleated Red Blood Cells # 0.0 Nucleated Red Blood Cells % 0.0 Phosphorus Level 4.6 Platelet Count 308 # Potassium Level 3.8 Red Blood Count 3.56 L Red Cell Distribution Width 16.9 H Sodium Level 146 H Thyroid Stimulating Hormone (TSH) 1.160 Triglycerides Level 574 H White Blood Count 11.3 #H Medications Medications Current Medications Ondansetron HCl (Zofran Inj) 4 mg Q6H PRN IV NAUSEA AND/OR VOMITING; Start 09/25 at 01:00 Acetaminophen (Tylenol Tab) 650 mg Q6H PRN PO PAIN LEVEL 1-3 OR FEVER; Start at 01:00 Acetaminophen/ Hydrocodone Bitart ([place] (5/325)) 1 tab Q6H PRN PO MODERATE PAIN LEVEL 4-6; Start 09/25/16 at 01:00 Morphine Sulfate (morphine) 2 mg Q4H PRN IV SEVERE PAIN LEVEL 7-10; Start at 01:00 Docusate Sodium (Colace) 100 mg Q12H PRN PO CONSTIPATION; Start 09/25/16 at 01: 00 Sodium Biphosphate/ Sodium Phosphate (Fleet Enema) 133 ml DAILY PRN [place] CONSTIPATION; Start 09/25/16 at 01:00 Heparin Sodium (Porcine) (Heparin (5000 Units/0.5 ml)) 5,000 unit Q12 SC Last administered on 09/26/16 09:40; Admin Dose 5,000 UNIT; Start 09/25/16 at 09:00 Lorazepam 0.5 mg 0.5 mg Q6H PRN IV ANXIETY Last administered on 09/25/16 18:23 ; Admin Dose 0.5 MG; Start 09/25/16 at 01:00 Levofloxacin/ Dextrose (Levaquin 750 Mg/ D5W 150 ml (Pmx)) 150 ml @ 100 mls/hr DAILY IVPB Last administered on 09/26/16 11:01; Admin Dose 100 MLS/HR; Start at 09:00 Hydralazine HCl (Apresoline) 10 mg Q6H PRN IV ELEVATED BLOOD PRESSURE; Start at 01:00 Nitroglycerin (Nitroglycerin (Sl Tab) 0.4 Mg) 1 tab Q5M PRN SL ANGINA; Start at 01:00 Aspirin (Ecotrin) 325 mg DAILY PO Last administered on 09/25/16 10:07; Admin Dose 325 MG; Start 09/25/16 at 09:00 Acetaminophen (Tylenol Tab) 650 mg Q4 PRN GTB ELEVATED TEMPERATURE; Start at 01:00 Atorvastatin Calcium (Lipitor) 20 mg QHS GTB Last administered on 09/25/16 22: 12; Admin Dose 20 MG; Start 09/25/16 at 21:00 Chlorhexidine Gluconate (Peridex) 15 ml Q12 MM Last administered on 09/26/16 09 :40; Admin Dose 15 ML; Start 09/25/16 at 09:00 Digoxin (Digoxin) 0.125 mg DAILY@13 GTB Last administered on 09/25/16 13:00; Admin Dose 0.125 MG; Start 09/25/16 at 13:00 Doxazosin Mesylate (Cardura) 4 mg HS GTB ; Start 09/25/16 at 21:00 Magnesium Hydroxide (Milk Of Mag) 30 ml DAILY PRN GTB CONSTIPATION; Start at 01:00 Multivitamins Therapeutic (Theragran) 1 tab DAILY GTB Last administered on 09:40; Admin Dose 1 TAB; Start 09/25/16 at 09:00 Fenofibrate (Tricor) 145 mg DAILY PO Last administered on 09/26/16 09:41; Admin Dose 145 MG; Start 09/25/16 at 09:00 Lansoprazole (Prevacid) 30 mg DAILY@06 GTB Last administered on 09/26/16 04:58 ; Admin Dose 30 MG; Start 09/25/16 at 06:00 Lactobacillus Acidoph/Bulgaricus (Floranex) 1 tab BID GTB Last administered on 09/26/16 09:40; Admin Dose 1 TAB; Start 09/25/16 at 09:00 Ascorbic Acid (Vitamin C) 500 mg DAILY PO Last administered on 09/26/16 09:40; Admin Dose 500 MG; Start 09/25/16 at 09:00 Ferrous Sulfate 300 mg 300 mg DAILY GTB Last administered on 09/26/16 09:41; Admin Dose 300 MG; Start 09/25/16 at 09:00 Sodium Chloride (NS) 1,000 ml @ 100 mls/hr Q10H IV Last administered on 07:46; Admin Dose 100 MLS/HR; Start 09/25/16 at 23:00 Diltiazem HCl 120 mg 120 mg DAILY PO Last administered on 09/26/16 10:25; Admin Dose 120 MG; Start 09/26/16 at 09:00 Amiodarone HCl 100 ml @ 100 mls/hr ONCE ONCE IV Last administered on 13:22; Admin Dose 100 MLS/HR; Start 09/26/16 at 13:00; Stop 09/26/16 at 13:59 Amiodarone HCl/ Dextrose (Cordarone Iv/ D5W) 500 ml @ 0 mls/hr Q0M IV ; Start at 14:30; Stop 09/27/16 at 14:29 Ervin Ceja DO Sep 26, 2016 13:35
[2016-09-26] MEDS: DIGOXIN 0.125 MG TAB GTB SCH (14:00)
[2016-09-26] MEDS ORDERED: AMIODARONE 900 MG in DEXTROSE 5% 482 ML IV SCH (14:30)
--- NOTE | 2016-09-26 17:05 | PN ---
Date/Time of Note Date/Time of Note DATE: 09/26/16 TIME: 17:03 Assessment/Plan VTE Prophylaxis VTE Prophylaxis Intervention: heparin, SCD's Lines/Catheters IV Catheter Type (from [facility], [place]): [facility] Urinary Cath still in place: Yes (in place on admission) Reason Cath still needed: other (indicate) Assessment/Plan Chief Complaint/Hosp Course ASSESSMENT AND PLAN: 1. atrial fibrillation with rapid ventricular response , rate controlled, status post Cardizem drip now on amiodarone drip, cardiology has been consulted 2. Chest pressure and shortness of breath secondary to atrial fibrillation with rapid ventricular response. Continue p.o. digoxin 3. History of coronary artery disease. With elevated troponins which is trending down. Continue high dose aspirin. 4. NSTEMI versus demand ischemia. cardiology consult. Continue high dose Lipitor and aspirin. Morphine, oxygen, nitrates p.r.n. 5. History of prior stroke. Continue medical management 6. History of essential hypertension. Continue current medications. 7. History of respiratory failure along with tracheostomy. pulmonary consult. Continue DuoNebs p.r.n. 8. Urinary tract infection, continue Levaquin 9. Gastrointestinal prophylaxis. Prevacid. 10. Deep venous thrombosis prophylaxis. Heparin subQ. We will continue monitor patient closely for recommendation management treatment as clinical course Problems: Subjective 24 Hr Interval Summary Free Text/Dictation Patient has been having frequent coughs Has been placed back on amiodarone drip secondary to uncontrolled A. fib with RVR Exam/Review of Systems Vital Signs Vitals Vital Signs Date Time Temp Pulse Resp B/P Pulse Ox O2 Delivery O2 Flow Rate FiO2 09/26/16 16:40 5.0 28 09/26/16 16:00 71 09/26/16 10:00 28 102/49 97 Trach Collar 09/26/16 08:45 97.9 Intake and Output 09/25/16 09/25/16 09/26/16 14:59 22:59 06:59 Intake Total 900 ml Output Total 900 ml Balance 0 ml Exam General: The patient is not in acute distress HEENT: Atraumatic, normocephalic. The pupils are equal and round . Neck: Trach in place Chest: Normal expansion of the thorax during inspiration Lungs: Clear to auscultation bilaterally Heart: Irregular rhythm and rate Abdomen: Soft , nontender, nondistended , bowel sounds are present. PEG tube in place Extremities: Normal to inspection, no edema no cyanosis Neurologic: Normal mental status,The patient is awake, alert Results Result Diagram: 09/26/1682709/26/16827 Results 24 hrs Laboratory Tests Test 09/25/16 19:52 09/26/16 08:28 Bedside Glucose 136 Anion Gap 20 H Basophils # 0.0 Basophils % 0.4 Blood Urea Nitrogen 74 H Calcium Level 8.9 Carbon Dioxide Level 23 Chloride Level 107 Cholesterol Level 149 Cholesterol/HDL Ratio 7.8 Creatinine 1.46 H Eosinophils # 0.8 H Eosinophils % 7.4 H Glucose Level 116 # HDL Cholesterol 19 L Hematocrit 31.7 L Hemoglobin 9.5 L Hemoglobin A1c 6.0 H LDL Cholesterol, Calculated 15 Lymphocytes # 2.1 Lymphocytes % 18.8 Magnesium Level 2.6 H Mean Corpuscular Hemoglobin 26.7 L Mean Corpuscular Hemoglobin Concent 30.0 L Mean Corpuscular Volume 89.0 Mean Platelet Volume 10.9 H Monocytes # 0.9 Monocytes % 8.1 Neutrophils # 7.3 Neutrophils % 64.6 Nucleated Red Blood Cells # 0.0 Nucleated Red Blood Cells % 0.0 Phosphorus Level 4.6 Platelet Count 308 # Potassium Level 3.8 Red Blood Count 3.56 L Red Cell Distribution Width 16.9 H Sodium Level 146 H Thyroid Stimulating Hormone (TSH) 1.160 Triglycerides Level 574 H White Blood Count 11.3 #H Medications Medications Current Medications Ondansetron HCl (Zofran Inj) 4 mg Q6H PRN IV NAUSEA AND/OR VOMITING; Start 09/25 at 01:00 Acetaminophen (Tylenol Tab) 650 mg Q6H PRN PO PAIN LEVEL 1-3 OR FEVER; Start at 01:00 Acetaminophen/ Hydrocodone Bitart ([place] (5/325)) 1 tab Q6H PRN PO MODERATE PAIN LEVEL 4-6; Start 09/25/16 at 01:00 Morphine Sulfate (morphine) 2 mg Q4H PRN IV SEVERE PAIN LEVEL 7-10; Start at 01:00 Docusate Sodium (Colace) 100 mg Q12H PRN PO CONSTIPATION; Start 09/25/16 at 01: 00 Sodium Biphosphate/ Sodium Phosphate (Fleet Enema) [address] CONSTIPATION; Start 09/25/16 at 01:00 Heparin Sodium (Porcine) (Heparin (5000 Units/0.5 ml)) 5,000 unit Q12 SC Last administered on 09/26/16 09:40; Admin Dose 5,000 UNIT; Start 09/25/16 at 09:00 Lorazepam 0.5 mg 0.5 mg Q6H PRN IV ANXIETY Last administered on 09/25/16 18:23 ; Admin Dose 0.5 MG; Start 09/25/16 at 01:00 Levofloxacin/ Dextrose (Levaquin 750 Mg/ D5W 150 ml (Pmx)) 150 ml @ 100 mls/hr DAILY IVPB Last administered on 09/26/16 11:01; Admin Dose 100 MLS/HR; Start at 09:00 Hydralazine HCl (Apresoline) 10 mg Q6H PRN IV ELEVATED BLOOD PRESSURE; Start at 01:00 Nitroglycerin (Nitroglycerin (Sl Tab) 0.4 Mg) 1 tab Q5M PRN SL ANGINA; Start at 01:00 Aspirin (Ecotrin) 325 mg DAILY PO Last administered on 09/25/16 10:07; Admin Dose 325 MG; Start 09/25/16 at 09:00 Acetaminophen (Tylenol Tab) 650 mg Q4 PRN GTB ELEVATED TEMPERATURE; Start at 01:00 Atorvastatin Calcium (Lipitor) 20 mg QHS GTB Last administered on 09/25/16 22: 12; Admin Dose 20 MG; Start 09/25/16 at 21:00 Chlorhexidine Gluconate (Peridex) 15 ml Q12 MM Last administered on 09/26/16 09 :40; Admin Dose 15 ML; Start 09/25/16 at 09:00 Digoxin (Digoxin) 0.125 mg DAILY@13 GTB Last administered on 09/25/16 13:00; Admin Dose 0.125 MG; Start 09/25/16 at 13:00 Magnesium Hydroxide (Milk Of Mag) 30 ml DAILY PRN GTB CONSTIPATION; Start at 01:00 Multivitamins Therapeutic (Theragran) 1 tab DAILY GTB Last administered on 09:40; Admin Dose 1 TAB; Start 09/25/16 at 09:00 Fenofibrate (Tricor) 145 mg DAILY PO Last administered on 09/26/16 09:41; Admin Dose 145 MG; Start 09/25/16 at 09:00 Lansoprazole (Prevacid) 30 mg DAILY@06 GTB Last administered on 09/26/16 04:58 ; Admin Dose 30 MG; Start 09/25/16 at 06:00 Lactobacillus Acidoph/Bulgaricus (Floranex) 1 tab BID GTB Last administered on 09/26/16 09:40; Admin Dose 1 TAB; Start 09/25/16 at 09:00 Ascorbic Acid (Vitamin C) 500 mg DAILY PO Last administered on 09/26/16 09:40; Admin Dose 500 MG; Start 09/25/16 at 09:00 Ferrous Sulfate 300 mg 300 mg DAILY GTB Last administered on 09/26/16 09:41; Admin Dose 300 MG; Start 09/25/16 at 09:00 Sodium Chloride (NS) 1,000 ml @ 100 mls/hr Q10H IV Last administered on 07:46; Admin Dose 100 MLS/HR; Start 09/25/16 at 23:00 Diltiazem HCl 120 mg 120 mg DAILY PO Last administered on 09/26/16 10:25; Admin Dose 120 MG; Start 09/26/16 at 09:00 Amiodarone HCl/ Dextrose (Cordarone Iv/ D5W) 500 ml @ 0 mls/hr Q0M IV Last administered on 09/26/16 14:10; Admin Dose 33.4 MLS/HR; Start 09/26/16 at 14:30; Stop 09/27/16 at 14:29 DILIP ARELLANO MD Sep 26, 2016 17:05
[2016-09-26] MEDS ORDERED: GLUCAGON 1 MG INJ IM PRN (17:30)
[2016-09-26] MEDS ORDERED: DEXTROSE 50% 50 ML SYRINGE IV PRN ×2 (17:30)
[2016-09-26] MEDS ORDERED: GLUCOSE GEL 15 GRAM TUBE PO PRN ×2 (17:30)
[2016-09-26] MEDS ORDERED: GLUCOSE GEL 15 GRAM TUBE BUCCAL PRN (17:30)
[2016-09-26] MEDS: INSULIN ASPART [NOVOLOG] 3 ML PEN SC SCH ×2 (17:30→23:30)
[2016-09-26] MEDS: ATORVASTATIN 20 MG TAB GTB SCH (20:15)
[2016-09-27] VITALS (12 sets, daily range): BP systolic 111–140; BP diastolic 55–76; PULSE 71–146; RESP 17–20
[2016-09-27] MEDS: SOD CHLORIDE 0.9% 1,000 ML IV SCH ×3 (00:22→15:04)
[2016-09-27] MEDS: INSULIN ASPART [NOVOLOG] 3 ML PEN SC SCH ×3 (04:46→18:13)
[2016-09-27] MEDS: LANSOPRAZOLE 30 MG CAP GTB SCH (05:00)
[2016-09-27 07:16] LABS: ADD SCAN DIFF NO
[2016-09-27 07:24] LABS: POTASSIUM 3.4 mmol/L (3.5-5.1)
[2016-09-27 07:26] LABS: CREATININE 1.11 mg/dl (0.61-1.24)
[2016-09-27 07:27] LABS: BASOPHILS % 0.2 % (0.0-2.0); CALCIUM 8.8 mg/dl (8.4-10.2); EOSINOPHILS # 0.4 10^3/ul (0.0-0.5); EOSINOPHILS % 4.2 % (0.0-7.0); HEMATOCRIT 32.6 % (42.0-52.0); HEMOGLOBIN 9.8 g/dl (14.0-18.0); LYMPHOCYTES # 1.4 10^3/ul (0.8-2.9); LYMPHOCYTES % 13.4 % (15.0-51.0); MEAN CORPUSCULAR HEMOGLOBIN 27.3 pg (29.0-33.0); MEAN CORPUSCULAR HGB CONC 30.1 g/dl (32.0-37.0); MEAN CORPUSCULAR VOLUME 90.8 fl (82.0-101.0); MEAN PLATELET VOLUME 12.4 fl (7.4-10.4); MONOCYTE # 0.8 10^3/ul (0.3-0.9); MONOCYTES % 7.3 % (0.0-11.0); NEUTROPHIL # 7.7 10^3/ul (1.6-7.5); NEUTROPHILS % 74.4 % (39.0-77.0); PLATELET COUNT 264 10^3/UL (140-415); RED BLOOD COUNT 3.59 10^6/ul (4.70-6.10); WHITE BLOOD COUNT 10.4 10^3/ul (4.8-10.8)
[2016-09-27] MEDS: DILTIAZEM (CD) 120 MG CAP PO SCH (08:00)
[2016-09-27] MEDS ORDERED: DILTIAZEM 25 MG INJ IV ONE (10:30)
[2016-09-27] MEDS: CHLORHEXIDINE GLUCONATE 15 ML UD CUP MM SCH ×2 (10:31→21:11)
[2016-09-27] MEDS: LACTOBACILLUS CHEW TAB GTB SCH ×2 (10:31→21:11)
[2016-09-27] MEDS: ASPIRIN (EC) 325 MG TAB PO SCH (10:31)
[2016-09-27] MEDS: FENOFIBRATE 145 MG TAB PO SCH (10:31)
[2016-09-27] MEDS: MULTIVITAMINS THERAPEUTIC TAB GTB SCH (10:31)
[2016-09-27] MEDS: LEVOFLOXACIN 750MG/D5W (PMX) 150 ML IVPB SCH (10:31)
[2016-09-27] MEDS: ASCORBIC ACID 500 MG TAB PO SCH (10:31)
[2016-09-27] MEDS: FERROUS SULFATE 60 MG/ML 5ML CUP GTB SCH (10:31)
[2016-09-27] MEDS: HEPARIN 5,000 UNIT/0.5 ML SYG SC SCH ×2 (10:38→21:23)
--- NOTE | 2016-09-27 11:54 | CONS ---
Date/Time of Note Date/Time of Note DATE: 09/27/16 TIME: 11:52 Assessment/Plan Assessment/Plan Additional Assessment/Plan SIRS Paroxysmal atrial fibrillation/flutter Paroxysmal supraventricular tachycardia Preserved ejection fraction Respiratory failure status post tracheostomy History of CVA -Patient with rapid atrial flutter this morning, improved after IV Cardizem push. DC long-acting Cardizem and switch to short acting p.o. Maintain potassium above 4. and magnesium above 2.0. Consultation Date/Type/Reason Admit Date/Time Sep 26, 2016 at 07:55 Initial Consult Date 09/26/16 Type of Consultation: cv 24 HR Interval Summary Free Text/Dictation Patient with rapid a flutter this morning, denies shortness of breath, palpitations Exam/Review of Systems Vital Signs Vitals Vital Signs Date Time Temp Pulse Resp B/P Pulse Ox O2 Delivery O2 Flow Rate FiO2 09/27/16 11:16 99.0 98 18 128/63 96 09/27/16 08:00 5.0 09/27/16 07:51 28 09/27/16 05:44 Aerosol T Tube Intake and Output 09/26/16 09/26/16 09/27/16 15:00 23:00 07:00 Intake Total 883.4 ml 840.4 ml 200 ml Output Total 500 ml 365 ml 480 ml Balance 383.4 ml 475.4 ml -280 ml Exam Follows commands, no apparent distress Constitutional: alert Head: normocephalic Neck: other (Tracheostomy) Respiratory: other (Coarse breath sounds bilaterally with scattered rhonchi, no wheezing) Cardiovascular: other (S1-S2), regular rate and rhythm (Tachycardic) Gastrointestinal: bowel sounds, non-tender, other (No guarding), soft Extremities: edema (Trace), other (No cyanosis) Results Result Diagram: 09/27/16 0525 09/27/16 0525 Results 24 hrs Laboratory Tests Test 09/26/16 17:52 09/27/16 00:21 09/27/16 04:45 09/27/16 05:25 Bedside Glucose 100 116 134 Anion Gap 18 H Basophils # 0.0 Basophils % 0.2 Blood Urea Nitrogen 54 H Calcium Level 8.8 Carbon Dioxide Level 19 L Chloride Level 112 H Creatinine 1.11 Eosinophils # 0.4 Eosinophils % 4.2 Glucose Level 124 Hematocrit 32.6 L Hemoglobin 9.8 L Lymphocytes # 1.4 Lymphocytes % 13.4 L Mean Corpuscular Hemoglobin 27.3 L Mean Corpuscular Hemoglobin Concent 30.1 L Mean Corpuscular Volume 90.8 Mean Platelet Volume 12.4 H Monocytes # 0.8 Monocytes % 7.3 Neutrophils # 7.7 H Neutrophils % 74.4 Nucleated Red Blood Cells # 0.0 Nucleated Red Blood Cells % 0.0 Platelet Count 264 Potassium Level 3.4 L Prealbumin 25.3 Red Blood Count 3.59 L Red Cell Distribution Width 17.0 H Sodium Level 146 H White Blood Count 10.4 Test 09/27/16 11:15 Bedside Glucose 155 Medications Medications Current Medications Ondansetron HCl (Zofran Inj) 4 mg Q6H PRN IV NAUSEA AND/OR VOMITING; Start 09/25 at 01:00 Acetaminophen (Tylenol Tab) 650 mg Q6H PRN PO PAIN LEVEL 1-3 OR FEVER; Start at 01:00 Acetaminophen/ Hydrocodone Bitart ([place] (5/325)) 1 tab Q6H PRN PO MODERATE PAIN LEVEL 4-6; Start 09/25/16 at 01:00 Morphine Sulfate (morphine) 2 mg Q4H PRN IV SEVERE PAIN LEVEL 7-10; Start at 01:00 Docusate Sodium (Colace) 100 mg Q12H PRN PO CONSTIPATION; Start 09/25/16 at 01: 00 Sodium Biphosphate/ Sodium Phosphate (Fleet Enema) 133 ml DAILY PRN [place] CONSTIPATION; Start 09/25/16 at 01:00 Heparin Sodium (Porcine) (Heparin (5000 Units/0.5 ml)) 5,000 unit Q12 SC Last administered on 09/27/16 10:38; Admin Dose 5,000 UNIT; Start 09/25/16 at 09:00 Lorazepam 0.5 mg 0.5 mg Q6H PRN IV ANXIETY Last administered on 09/25/16 18:23 ; Admin Dose 0.5 MG; Start 09/25/16 at 01:00 Levofloxacin/ Dextrose (Levaquin 750 Mg/ D5W 150 ml (Pmx)) 150 ml @ 100 mls/hr DAILY IVPB Last administered on 09/27/16 10:31; Admin Dose 100 MLS/HR; Start at 09:00 Hydralazine HCl (Apresoline) 10 mg Q6H PRN IV ELEVATED BLOOD PRESSURE; Start at 01:00 Nitroglycerin (Nitroglycerin (Sl Tab) 0.4 Mg) 1 tab Q5M PRN SL ANGINA; Start at 01:00 Aspirin (Ecotrin) 325 mg DAILY PO Last administered on 09/27/16 10:31; Admin Dose 325 MG; Start 09/25/16 at 09:00 Acetaminophen (Tylenol Tab) 650 mg Q4 PRN GTB ELEVATED TEMPERATURE; Start at 01:00 Atorvastatin Calcium (Lipitor) 20 mg QHS GTB Last administered on 09/26/16 20: 15; Admin Dose 20 MG; Start 09/25/16 at 21:00 Chlorhexidine Gluconate (Peridex) 15 ml Q12 MM Last administered on 09/27/16 10 :31; Admin Dose 15 ML; Start 09/25/16 at 09:00 Digoxin (Digoxin) 0.125 mg DAILY@13 GTB Last administered on 09/25/16 13:00; Admin Dose 0.125 MG; Start 09/25/16 at 13:00 Magnesium Hydroxide (Milk Of Mag) 30 ml DAILY PRN GTB CONSTIPATION; Start at 01:00 Multivitamins Therapeutic (Theragran) 1 tab DAILY GTB Last administered on 10:31; Admin Dose 1 TAB; Start 09/25/16 at 09:00 Fenofibrate (Tricor) 145 mg DAILY PO Last administered on 09/27/16 10:31; Admin Dose 145 MG; Start 09/25/16 at 09:00 Lansoprazole (Prevacid) 30 mg DAILY@06 GTB Last administered on 09/27/16 05:00 ; Admin Dose 30 MG; Start 09/25/16 at 06:00 Lactobacillus Acidoph/Bulgaricus (Floranex) 1 tab BID GTB Last administered on 09/27/16 10:31; Admin Dose 1 TAB; Start 09/25/16 at 09:00 Ascorbic Acid (Vitamin C) 500 mg DAILY PO Last administered on 09/27/16 10:31; Admin Dose 500 MG; Start 09/25/16 at 09:00 Ferrous Sulfate 300 mg 300 mg DAILY GTB Last administered on 09/27/16 10:31; Admin Dose 300 MG; Start 09/25/16 at 09:00 Sodium Chloride (NS) 1,000 ml @ 100 mls/hr Q10H IV Last administered on 00:22; Admin Dose 100 MLS/HR; Start 09/25/16 at 23:00 Diltiazem HCl 120 mg 120 mg DAILY PO Last administered on 09/27/16 08:00; Admin Dose 120 MG; Start 09/26/16 at 09:00 Amiodarone HCl/ Dextrose (Cordarone Iv/ D5W) 500 ml @ 0 mls/hr Q0M IV Last administered on 09/26/16 14:10; Admin Dose 33.4 MLS/HR; Start 09/26/16 at 14:30; Stop 09/27/16 at 14:29 Insulin Aspart (Novolog Insulin Pen) NOVOLOG *MILD* ALGORI... Q6H SC ; Start 09/26/16 at 17:30 Miscellaneous Information 1 ea NOTE XX ; Start 09/26/16 at 17:30 Glucose (Glutose) 15 gm Q15M PRN PO DECREASED GLUCOSE; Start 09/26/16 at 17:30 Glucose (Glutose) 22.5 gm Q15M PRN PO DECREASED GLUCOSE; Start 09/26/16 at 17:30 Dextrose (D50w Syringe) 25 ml Q15M PRN IV DECREASED GLUCOSE; Start 09/26/16 at 17:30 Dextrose (D50w Syringe) 50 ml Q15M PRN IV DECREASED GLUCOSE; Start 09/26/16 at 17:30 Glucagon (Glucagen) 1 mg Q15M PRN IM DECREASED GLUCOSE; Start 09/26/16 at 17:30 Glucose (Glutose) 15 gm Q15M PRN BUCCAL DECREASED GLUCOSE; Start 09/26/16 at 17: 30 Collagenase (Santyl) 1 applic DAILY TOP ; Start 09/27/16 at 11:30 Ervin Ceja DO Sep 27, 2016 11:54
[2016-09-27] MEDS ORDERED: POTASSIUM CHLORIDE 20 MEQ POWDER FOR ORAL SOLN GTB ONE (12:00)
[2016-09-27] MEDS: COLLAGENASE 30 GM TUBE TOP SCH (13:04)
--- NOTE | 2016-09-27 13:04 | PN ---
Date/Time of Note Date/Time of Note DATE: 09/27/16 TIME: 13:00 Assessment/Plan VTE Prophylaxis VTE Prophylaxis Intervention: LMWH Lines/Catheters [facility] Type (from [facility] Peripheral IV Urinary Cath still in place: Yes Reason Cath still needed: urinary retention Assessment/Plan Chief Complaint/Hosp Course ASSESSMENT AND PLAN: 1. atrial fibrillation with rapid ventricular response , rate controlled, status post Cardizem transitioned to oral Cardizem, cardiology has been consulted 2. Chest pressure and shortness of breath secondary to atrial fibrillation with rapid ventricular response. Continue p.o. digoxin 3. History of coronary artery disease. With elevated troponins which is trending down. Continue high dose aspirin. 4. NSTEMI versus demand ischemia. cardiology consult. Continue high dose Lipitor and aspirin. Morphine, oxygen, nitrates p.r.n. 5. History of prior stroke. Continue medical management 6. History of essential hypertension. Continue current medications. 7. 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 continue breathing treatment and vent management, pulmonary consult. Continue DuoNebs p.r.n. 8. Urinary tract infection, continue Levaquin 9. Gastrointestinal prophylaxis. Prevacid. 10. Deep venous thrombosis prophylaxis. Heparin subQ. We will continue monitor patient closely for recommendation management treatment as clinical course Problems: Subjective 24 Hr Interval Summary Free Text/Dictation No acute changes Ventilator dependent respiratory failure on vent Denies of having any chest discomfort -Patient with rapid atrial flutter this morning, improved after IV Cardizem push. Exam/Review of Systems Vital Signs Vitals Vital Signs Date Time Temp Pulse Resp B/P Pulse Ox O2 Delivery O2 Flow Rate FiO2 09/27/16 12:35 96 09/27/16 11:16 99.0 18 128/63 96 09/27/16 08:00 5.0 09/27/16 07:51 28 09/27/16 05:44 Aerosol T Tube Intake and Output 09/26/16 09/26/16 09/27/16 15:00 23:00 07:00 Intake Total 883.4 ml 840.4 ml 200 ml Output Total 500 ml 365 ml 480 ml Balance 383.4 ml 475.4 ml -280 ml Exam General: The patient is not in acute distress. HEENT: Atraumatic, normocephalic. The pupils are equal and round . Neck: Tracheostomy in place Chest: Normal expansion of the thorax during inspiration Lungs: Clear to auscultation bilaterally Heart: Normal S1-S2, regular rhythm and rate Abdomen: Soft , nontender, nondistended , bowel sounds are present. PEG tube in place Extremities: Bilateral upper and lower extremity flexion with evidence of muscle wasting, no edema no cyanosis Neurologic: mental status at baseline,The patient is awake, alert Results Result Diagram: 09/27/16 0525 09/27/16 0525 Results 24 hrs Laboratory Tests Test 09/26/16 17:52 09/27/16 00:21 09/27/16 04:45 09/27/16 05:25 Bedside Glucose 100 116 134 Anion Gap 18 H Basophils # 0.0 Basophils % 0.2 Blood Urea Nitrogen 54 H Calcium Level 8.8 Carbon Dioxide Level 19 L Chloride Level 112 H Creatinine 1.11 Eosinophils # 0.4 Eosinophils % 4.2 Glucose Level 124 Hematocrit 32.6 L Hemoglobin 9.8 L Lymphocytes # 1.4 Lymphocytes % 13.4 L Mean Corpuscular Hemoglobin 27.3 L Mean Corpuscular Hemoglobin Concent 30.1 L Mean Corpuscular Volume 90.8 Mean Platelet Volume 12.4 H Monocytes # 0.8 Monocytes % 7.3 Neutrophils # 7.7 H Neutrophils % 74.4 Nucleated Red Blood Cells # 0.0 Nucleated Red Blood Cells % 0.0 Platelet Count 264 Potassium Level 3.4 L Prealbumin 25.3 Red Blood Count 3.59 L Red Cell Distribution Width 17.0 H Sodium Level 146 H White Blood Count 10.4 Test 09/27/16 11:15 Bedside Glucose 155 Medications Medications Current Medications Ondansetron HCl (Zofran Inj) 4 mg Q6H PRN IV NAUSEA AND/OR VOMITING; Start 09/25 at 01:00 Acetaminophen (Tylenol Tab) 650 mg Q6H PRN PO PAIN LEVEL 1-3 OR FEVER; Start at 01:00 Acetaminophen/ Hydrocodone Bitart ([place] (5/325)) 1 tab Q6H PRN PO MODERATE PAIN LEVEL 4-6; Start 09/25/16 at 01:00 Morphine Sulfate (morphine) 2 mg Q4H PRN IV SEVERE PAIN LEVEL 7-10; Start at 01:00 Docusate Sodium (Colace) 100 mg Q12H PRN PO CONSTIPATION; Start 09/25/16 at 01: 00 Sodium Biphosphate/ Sodium Phosphate (Fleet Enema) 133 ml DAILY PRN [place] CONSTIPATION; Start 09/25/16 at 01:00 Heparin Sodium (Porcine) (Heparin (5000 Units/0.5 ml)) 5,000 unit Q12 SC Last administered on 09/27/16 10:38; Admin Dose 5,000 UNIT; Start 09/25/16 at 09:00 Lorazepam 0.5 mg 0.5 mg Q6H PRN IV ANXIETY Last administered on 09/25/16 18:23 ; Admin Dose 0.5 MG; Start 09/25/16 at 01:00 Levofloxacin/ Dextrose (Levaquin 750 Mg/ D5W 150 ml (Pmx)) 150 ml @ 100 mls/hr DAILY IVPB Last administered on 09/27/16 10:31; Admin Dose 100 MLS/HR; Start at 09:00 Hydralazine HCl (Apresoline) 10 mg Q6H PRN IV ELEVATED BLOOD PRESSURE; Start at 01:00 Nitroglycerin (Nitroglycerin (Sl Tab) 0.4 Mg) 1 tab Q5M PRN SL ANGINA; Start at 01:00 Aspirin (Ecotrin) 325 mg DAILY PO Last administered on 09/27/16 10:31; Admin Dose 325 MG; Start 09/25/16 at 09:00 Acetaminophen (Tylenol Tab) 650 mg Q4 PRN GTB ELEVATED TEMPERATURE; Start at 01:00 Atorvastatin Calcium (Lipitor) 20 mg QHS GTB Last administered on 09/26/16 20: 15; Admin Dose 20 MG; Start 09/25/16 at 21:00 Chlorhexidine Gluconate (Peridex) 15 ml Q12 MM Last administered on 09/27/16 10 :31; Admin Dose 15 ML; Start 09/25/16 at 09:00 Digoxin (Digoxin) 0.125 mg DAILY@13 GTB Last administered on 09/25/16 13:00; Admin Dose 0.125 MG; Start 09/25/16 at 13:00 Magnesium Hydroxide (Milk Of Mag) 30 ml DAILY PRN GTB CONSTIPATION; Start at 01:00 Multivitamins Therapeutic (Theragran) 1 tab DAILY GTB Last administered on 10:31; Admin Dose 1 TAB; Start 09/25/16 at 09:00 Fenofibrate (Tricor) 145 mg DAILY PO Last administered on 09/27/16 10:31; Admin Dose 145 MG; Start 09/25/16 at 09:00 Lansoprazole (Prevacid) 30 mg DAILY@06 GTB Last administered on 09/27/16 05:00 ; Admin Dose 30 MG; Start 09/25/16 at 06:00 Lactobacillus Acidoph/Bulgaricus (Floranex) 1 tab BID GTB Last administered on 09/27/16 10:31; Admin Dose 1 TAB; Start 09/25/16 at 09:00 Ascorbic Acid (Vitamin C) 500 mg DAILY PO Last administered on 09/27/16 10:31; Admin Dose 500 MG; Start 09/25/16 at 09:00 Ferrous Sulfate 300 mg 300 mg DAILY GTB Last administered on 09/27/16 10:31; Admin Dose 300 MG; Start 09/25/16 at 09:00 Sodium Chloride 1,000 ml @ 100 mls/hr Q10H IV Last administered on 09/27/16 00 :22; Admin Dose 100 MLS/HR; Start 09/25/16 at 23:00 Amiodarone HCl/ Dextrose (Cordarone Iv/ D5W) 500 ml @ 0 mls/hr Q0M IV Last administered on 09/26/16 14:10; Admin Dose 33.4 MLS/HR; Start 09/26/16 at 14:30; Stop 09/27/16 at 14:29 Insulin Aspart (Novolog Insulin Pen) NOVOLOG *MILD* ALGORI... Q6H SC ; Start 09/26/16 at 17:30 Miscellaneous Information 1 ea NOTE XX ; Start 09/26/16 at 17:30 Glucose (Glutose) 15 gm Q15M PRN PO DECREASED GLUCOSE; Start 09/26/16 at 17:30 Glucose (Glutose) 22.5 gm Q15M PRN PO DECREASED GLUCOSE; Start 09/26/16 at 17:30 Dextrose (D50w Syringe) 25 ml Q15M PRN IV DECREASED GLUCOSE; Start 09/26/16 at 17:30 Dextrose (D50w Syringe) 50 ml Q15M PRN IV DECREASED GLUCOSE; Start 09/26/16 at 17:30 Glucagon (Glucagen) 1 mg Q15M PRN IM DECREASED GLUCOSE; Start 09/26/16 at 17:30 Glucose (Glutose) 15 gm Q15M PRN BUCCAL DECREASED GLUCOSE; Start 09/26/16 at 17: 30 Collagenase (Santyl) 1 applic DAILY TOP ; Start 09/27/16 at 11:30 Diltiazem HCl (Cardizem) 60 mg Q6 GTB ; Start 09/27/16 at 12:00 DILIP ARELLANO MD Sep 27, 2016 13:04
[2016-09-27] MEDS: DILTIAZEM 60 MG TAB GTB SCH ×3 (13:05→18:00)
[2016-09-27] MEDS: DIGOXIN 0.125 MG TAB GTB SCH (13:07)
[2016-09-27] MEDS ORDERED: DILTIAZEM 25 MG INJ IV PRN (16:30)
--- NOTE | 2016-09-27 16:44 | PN ---
DATE: 09/27/2016 PULMONARY FOLLOWUP NOTE SUBJECTIVE: The patient remains stable, no new events. Continues on nasal cannula oxygen. OBJECTIVE: VITAL SIGNS: Temperature 98, pulse is 100, blood pressure 139/60, O2 saturation 96%. NECK: Supple. No JVD or lymphadenopathy. CARDIAC: S1, S2, no added sounds or murmurs. CHEST: Diminished air entry bilaterally. ABDOMEN: Soft, nontender. No guarding or rebound. EXTREMITIES: No cyanosis, clubbing, edema. NEUROLOGIC: Generalized weakness. IMPRESSION AND PLAN: 1. Chronic respiratory failure with tracheostomy. 2. History of non-ST elevation myocardial infarction. 3. Atrial fibrillation with rapid ventricular response. 4. History of coronary artery disease. The patient to continue with 1. Supplemental O2 via tracheostomy. 2. Continue cardiac recommendations. 3. Continue rate control. 4. Deep venous thrombosis and gastrointestinal prophylaxis. 5. Start tube feeding as tolerated. Dictated By: MUNIR JAMES/GENOVEVA Conf#: [id number] DID#: [id number]
[2016-09-27] MEDS: ATORVASTATIN 20 MG TAB GTB SCH (21:11)
[2016-09-27] MEDS: AMIODARONE 200 MG TAB GTB SCH (21:12)
[2016-09-28] VITALS (12 sets, daily range): BP systolic 91–121; BP diastolic 50–71; PULSE 84–102; RESP 15–19
[2016-09-28] MEDS: DILTIAZEM 60 MG TAB GTB SCH ×4 (00:31→21:09)
[2016-09-28] MEDS: INSULIN ASPART [NOVOLOG] 3 ML PEN SC SCH ×4 (00:37→18:48)
[2016-09-28] MEDS: SOD CHLORIDE 0.9% 1,000 ML IV SCH ×2 (01:16→13:41)
[2016-09-28] MEDS: LANSOPRAZOLE 30 MG CAP GTB SCH (05:27)
[2016-09-28] MEDS: LEVOFLOXACIN 750 MG TABLET GTB SCH (05:27)
[2016-09-28 07:43] LABS: ADD SCAN DIFF NO
[2016-09-28 07:49] LABS: BASOPHILS % 0.2 % (0.0-2.0); EOSINOPHILS % 0.1 % (0.0-7.0); HEMATOCRIT 28.7 % (42.0-52.0); HEMOGLOBIN 8.8 g/dl (14.0-18.0); LYMPHOCYTES # 1.6 10^3/ul (0.8-2.9); LYMPHOCYTES % 10.9 % (15.0-51.0); MEAN CORPUSCULAR HGB CONC 30.7 g/dl (32.0-37.0); MEAN PLATELET VOLUME 11.9 fl (7.4-10.4); MONOCYTE # 1.2 10^3/ul (0.3-0.9); MONOCYTES % 7.8 % (0.0-11.0); NEUTROPHIL # 11.9 10^3/ul (1.6-7.5); NEUTROPHILS % 80.5 % (39.0-77.0); PLATELET COUNT 253 10^3/UL (140-415); RED BLOOD COUNT 3.26 10^6/ul (4.70-6.10); RED CELL DISTRIBUTION WIDTH 17.2 % (11.5-14.5); WHITE BLOOD COUNT 14.8 10^3/ul (4.8-10.8)
[2016-09-28 09:22] LABS: POTASSIUM 3.3 mmol/L (3.5-5.1)
[2016-09-28 09:24] LABS: CREATININE 1.13 mg/dl (0.61-1.24)
[2016-09-28 09:25] LABS: CALCIUM 8.4 mg/dl (8.4-10.2)
[2016-09-28] MEDS: LACTOBACILLUS CHEW TAB GTB SCH ×2 (09:32→21:04)
[2016-09-28] MEDS: FENOFIBRATE 145 MG TAB PO SCH (09:32)
[2016-09-28] MEDS: ASCORBIC ACID 500 MG TAB PO SCH (09:32)
[2016-09-28] MEDS: ASPIRIN (EC) 325 MG TAB PO SCH (09:33)
[2016-09-28] MEDS: CHLORHEXIDINE GLUCONATE 15 ML UD CUP MM SCH ×2 (09:33→21:04)
[2016-09-28] MEDS: FERROUS SULFATE 60 MG/ML 5ML CUP GTB SCH (09:33)
[2016-09-28] MEDS: MULTIVITAMINS THERAPEUTIC TAB GTB SCH (09:33)
[2016-09-28] MEDS: HEPARIN 5,000 UNIT/0.5 ML SYG SC SCH ×2 (09:34→21:06)
[2016-09-28] MEDS: AMIODARONE 200 MG TAB GTB SCH ×2 (09:37→21:07)
[2016-09-28] MEDS: COLLAGENASE 30 GM TUBE TOP SCH (09:43)
--- NOTE | 2016-09-28 11:21 | PN ---
DATE: 09/28/2016 SUBJECTIVE: Respiratory failure. The patient remains stable, continues cool aerosol. Makes eye co ntact, appears to have no respiratory distress. PHYSICAL EXAMINATION: VITAL SIGNS: Temperature 98, pulse is 100, blood pressure 121/60, O2 saturation 96%. NECK: Trach site clean and intact. CARDIAC: S1, S2, no added sounds or murmurs. CHEST: Diminished air entry bilaterally. ABDOMEN: Soft, nontender. No guarding or rebound. EXTREMITIES: No cyanosis, clubbing or edema. NEUROLOGIC: Generalized weakness. LABORATORY DATA: White count 14.8, hemoglobin 8.8, platelets of 253. Chemistry: Sodium 148, potas sium 3.3, BUN 41, creatinine 1.13. IMPRESSION AND PLAN: 1. Chronic respiratory failure. 2. Atrial fibrillation with rapid ventricular response. 3. Non-ST elevation myocardial infarction. 4. Urinary tract infection. PLAN: 1. Continue antibiotics of Levaquin. 2. Continue rate control. 3. Continue pulmonary toilet. 4. Deep venous thrombosis and gastrointestinal prophylaxis. 5. Tube feeding as tolerated. Consider discharge planning to shelter facility with continuation of antibiotics for another 7 days. Dictated By: MUNIR JAMES/GENOVEVA Conf#: [id number] DID#: [id number]
[2016-09-28] MEDS ORDERED: POTASSIUM CHLORIDE 250 ML IVPB SCH (13:30)
[2016-09-28] MEDS: DIGOXIN 0.125 MG TAB GTB SCH (13:50)
--- NOTE | 2016-09-28 14:37 | CONS ---
Date/Time of Note Date/Time of Note DATE: 09/28/16 TIME: 14:35 Assessment/Plan Assessment/Plan Additional Assessment/Plan SIRS Paroxysmal atrial fibrillation/flutter Paroxysmal supraventricular tachycardia Preserved ejection fraction Respiratory failure status post tracheostomy History of CVA -Heart rate trend has improved her blood pressure on the lower end, will decrease frequency of Cardizem. Maintain potassium above 4.0 and magnesium above 2.0. Consultation Date/Type/Reason Admit Date/Time Sep 26, 2016 at 07:55 Initial Consult Date 09/26/16 Type of Consultation: cv 24 HR Interval Summary Free Text/Dictation Heart rate improved, blood pressure on the lower end as per nursing staff. Exam/Review of Systems Vital Signs Vitals Vital Signs Date Time Temp Pulse Resp B/P Pulse Ox O2 Delivery O2 Flow Rate FiO2 09/28/16 12:09 98 09/28/16 11:27 98.6 19 98/55 97 09/28/16 09:00 Trach Collar 09/28/16 08:00 5.0 09/28/16 05:05 28 Intake and Output 09/27/16 09/27/16 09/28/16 15:00 23:00 07:00 Intake Total 2030 ml 786 ml Output Total 1200 ml 800 ml Balance 830 ml -14 ml Exam Sleeping, no apparent distress Head: normocephalic Neck: other (Tracheostomy) Respiratory: other (Coarse breath sounds bilaterally, no wheezing) Cardiovascular: other (S1-S2 heard), regular rate and rhythm (With occasional irregularities) Gastrointestinal: bowel sounds, non-tender, other (No grimacing with palpation) , soft Extremities: other (No edema or cyanosis) Results Result Diagram: 09/28/16 0658 09/28/16 0658 Results 24 hrs Laboratory Tests Test 09/27/16 18:09 09/28/16 00:29 09/28/16 05:25 09/28/16 06:58 Bedside Glucose 228 H 213 197 Anion Gap 16 Basophils # 0.0 Basophils % 0.2 Blood Urea Nitrogen 41 #H Calcium Level 8.4 Carbon Dioxide Level 20 L Chloride Level 115 H Creatinine 1.13 Eosinophils # 0.0 Eosinophils % 0.1 Glucose Level 221 H Hematocrit 28.7 L Hemoglobin 8.8 L Lymphocytes # 1.6 Lymphocytes % 10.9 L Magnesium Level 2.1 Mean Corpuscular Hemoglobin 27.0 L Mean Corpuscular Hemoglobin Concent 30.7 L Mean Corpuscular Volume 88.0 Mean Platelet Volume 11.9 H Monocytes # 1.2 H Monocytes % 7.8 Neutrophils # 11.9 H Neutrophils % 80.5 H Nucleated Red Blood Cells # 0.0 Nucleated Red Blood Cells % 0.0 Platelet Count 253 Potassium Level 3.3 L Red Blood Count 3.26 L Red Cell Distribution Width 17.2 H Sodium Level 148 H White Blood Count 14.8 #H Test 09/28/16 13:43 Bedside Glucose 200 Medications Medications Current Medications Ondansetron HCl (Zofran Inj) 4 mg Q6H PRN IV NAUSEA AND/OR VOMITING; Start 09/25 at 01:00 Acetaminophen (Tylenol Tab) 650 mg Q6H PRN PO PAIN LEVEL 1-3 OR FEVER; Start at 01:00 Acetaminophen/ Hydrocodone Bitart ([place] (5/325)) 1 tab Q6H PRN PO MODERATE PAIN LEVEL 4-6; Start 09/25/16 at 01:00 Morphine Sulfate (morphine) 2 mg Q4H PRN IV SEVERE PAIN LEVEL 7-10; Start at 01:00 Docusate Sodium (Colace) 100 mg Q12H PRN PO CONSTIPATION; Start 09/25/16 at 01: 00 Sodium Biphosphate/ Sodium Phosphate (Fleet Enema) 133 ml DAILY PRN [place] CONSTIPATION; Start 09/25/16 at 01:00 Heparin Sodium (Porcine) (Heparin (5000 Units/0.5 ml)) 5,000 unit Q12 SC Last administered on 09/28/16 09:34; Admin Dose 5,000 UNIT; Start 09/25/16 at 09:00 Lorazepam (Ativan) 0.5 mg Q6H PRN IV ANXIETY Last administered on 09/25/16 18: 23; Admin Dose 0.5 MG; Start 09/25/16 at 01:00 Hydralazine HCl (Apresoline) 10 mg Q6H PRN IV ELEVATED BLOOD PRESSURE; Start at 01:00 Nitroglycerin (Nitroglycerin (Sl Tab) 0.4 Mg) 1 tab Q5M PRN SL ANGINA; Start at 01:00 Aspirin (Ecotrin) 325 mg DAILY PO Last administered on 09/28/16 09:33; Admin Dose 325 MG; Start 09/25/16 at 09:00 Acetaminophen (Tylenol Tab) 650 mg Q4 PRN GTB ELEVATED TEMPERATURE; Start at 01:00 Atorvastatin Calcium (Lipitor) 20 mg QHS GTB Last administered on 09/27/16 21: 11; Admin Dose 20 MG; Start 09/25/16 at 21:00 Chlorhexidine Gluconate (Peridex) 15 ml Q12 MM Last administered on 09/28/16 09 :33; Admin Dose 15 ML; Start 09/25/16 at 09:00 Digoxin (Digoxin) 0.125 mg DAILY@13 GTB Last administered on 09/28/16 13:50; Admin Dose 0.125 MG; Start 09/25/16 at 13:00 Magnesium Hydroxide (Milk Of Mag) 30 ml DAILY PRN GTB CONSTIPATION; Start at 01:00 Multivitamins Therapeutic (Theragran) 1 tab DAILY GTB Last administered on 09:33; Admin Dose 1 TAB; Start 09/25/16 at 09:00 Fenofibrate (Tricor) 145 mg DAILY PO Last administered on 09/28/16 09:32; Admin Dose 145 MG; Start 09/25/16 at 09:00 Lansoprazole (Prevacid) 30 mg DAILY@06 GTB Last administered on 09/28/16 05:27 ; Admin Dose 30 MG; Start 09/25/16 at 06:00 Lactobacillus Acidoph/Bulgaricus (Floranex) 1 tab BID GTB Last administered on 09/28/16 09:32; Admin Dose 1 TAB; Start 09/25/16 at 09:00 Ascorbic Acid (Vitamin C) 500 mg DAILY PO Last administered on 09/28/16 09:32; Admin Dose 500 MG; Start 09/25/16 at 09:00 Ferrous Sulfate 300 mg 300 mg DAILY GTB Last administered on 09/28/16 09:33; Admin Dose 300 MG; Start 09/25/16 at 09:00 Sodium Chloride (NS) 1,000 ml @ 100 mls/hr Q10H IV Last administered on 13:41; Admin Dose 100 MLS/HR; Start 09/25/16 at 23:00 Insulin Aspart (Novolog Insulin Pen) NOVOLOG *MILD* ALGORI... Q6H SC Last administered on 09/28/16 13:45; Admin Dose 2 UNIT; Start 09/26/16 at 17:30 Miscellaneous Information 1 ea NOTE XX ; Start 09/26/16 at 17:30 Glucose (Glutose) 15 gm Q15M PRN PO DECREASED GLUCOSE; Start 09/26/16 at 17:30 Glucose (Glutose) 22.5 gm Q15M PRN PO DECREASED GLUCOSE; Start 09/26/16 at 17:30 Dextrose (D50w Syringe) 25 ml Q15M PRN IV DECREASED GLUCOSE; Start 09/26/16 at 17:30 Dextrose (D50w Syringe) 50 ml Q15M PRN IV DECREASED GLUCOSE; Start 09/26/16 at 17:30 Glucagon (Glucagen) 1 mg Q15M PRN IM DECREASED GLUCOSE; Start 09/26/16 at 17:30 Glucose (Glutose) 15 gm Q15M PRN BUCCAL DECREASED GLUCOSE; Start 09/26/16 at 17: 30 Collagenase (Santyl) 1 applic DAILY TOP Last administered on 09/28/16 09:43; Admin Dose 1 APPLIC; Start 09/27/16 at 11:30 Diltiazem HCl (Cardizem) 60 mg Q6 GTB Last administered on 09/28/16 00:31; Admin Dose 60 MG; Start 09/27/16 at 12:00 Amiodarone HCl (Cordarone) 400 mg BID GTB Last administered on 09/28/16 09:37; Admin Dose 400 MG; Start 09/27/16 at 21:00 Levofloxacin 750 mg 750 mg DAILY@06 GTB Last administered on 09/28/16 05:27; Admin Dose 750 MG; Start 09/28/16 at 06:00 Potassium Chloride (KCl 40 MEQ/250 ML NS) 250 ml @ 62.5 mls/hr ONCE IVPB Last administered on 09/28/16 13:50; Admin Dose 62.5 MLS/HR; Start 09/28/16 at 13:30; Stop 09/28/16 at 17:29 Ervin Ceja DO Sep 28, 2016 14:37
[2016-09-28] MEDS ORDERED: POTASSIUM CHLORIDE 20 MEQ POWDER FOR ORAL SOLN GTB ONE (15:00)
--- NOTE | 2016-09-28 15:33 | PN ---
Date/Time of Note Date/Time of Note DATE: 09/28/16 TIME: 15:28 Assessment/Plan VTE Prophylaxis VTE Prophylaxis Intervention: LMWH Lines/Catheters IV [facility] Type (from [facility] Peripheral IV Urinary Cath still in place: Yes Reason Cath still needed: urinary retention Assessment/Plan Chief Complaint/Hosp Course ASSESSMENT AND PLAN: 1. atrial fibrillation with rapid ventricular response , rate controlled, status post Cardizem transitioned to oral Cardizem and amiodarone, cardiology has been consulted 2. Chest pressure and shortness of breath secondary to atrial fibrillation with rapid ventricular response. Continue p.o. digoxin 3. History of coronary artery disease. With elevated troponins which is trending down. Continue high dose aspirin. Cardiology following 4. NSTEMI versus demand ischemia. cardiology consult. Continue high dose Lipitor and aspirin. Morphine, oxygen, nitrates p.r.n. 5. History of prior stroke. Continue medical management 6. History of essential hypertension. Continue current medications. 7. 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 continue breathing treatment and vent management, pulmonary consult. Continue DuoNebs p.r.n. 8. Urinary tract infection, continue Levaquin and Rocephin 9. Gastrointestinal prophylaxis. Prevacid. 10. Deep venous thrombosis prophylaxis. Heparin subQ. We will continue monitor patient closely for recommendation management treatment as clinical course Plan to discharge to [facility] facility if leukocytosis improves Problems: Subjective 24 Hr Interval Summary Free Text/Dictation No acute changes Heart rate is more stable in mid 90s Patient is tolerating PEG tube feeding Exam/Review of Systems Vital Signs Vitals Vital Signs Date Time Temp Pulse Resp B/P Pulse Ox O2 Delivery O2 Flow Rate FiO2 09/28/16 12:09 98 09/28/16 11:27 98.6 19 98/55 97 09/28/16 09:00 Trach Collar 09/28/16 08:00 5.0 09/28/16 05:05 28 Intake and Output 09/27/16 09/27/16 09/28/16 15:00 23:00 07:00 Intake Total 2030 ml 786 ml Output Total 1200 ml 800 ml Balance 830 ml -14 ml Exam General: The patient is not in acute distress. HEENT: Atraumatic, normocephalic. The pupils are equal and round . Neck: Trach in place Chest: Normal expansion of the thorax during inspiration Lungs: Decreased breath sounds bilateral lower lung field Heart: Normal S1-S2, irregular rhythm and rate Abdomen: Soft , nontender, nondistended , bowel sounds are present. Extremities: Normal to inspection, no edema no cyanosis Neurologic: mental status at baseline,The patient is awake Results Result Diagram: 09/28/16 0658 09/28/16 0658 Results 24 hrs Laboratory Tests Test 09/27/16 18:09 09/28/16 00:29 09/28/16 05:25 09/28/16 06:58 Bedside Glucose 228 H 213 197 Anion Gap 16 Basophils # 0.0 Basophils % 0.2 Blood Urea Nitrogen 41 #H Calcium Level 8.4 Carbon Dioxide Level 20 L Chloride Level 115 H Creatinine 1.13 Eosinophils # 0.0 Eosinophils % 0.1 Glucose Level 221 H Hematocrit 28.7 L Hemoglobin 8.8 L Lymphocytes # 1.6 Lymphocytes % 10.9 L Magnesium Level 2.1 Mean Corpuscular Hemoglobin 27.0 L Mean Corpuscular Hemoglobin Concent 30.7 L Mean Corpuscular Volume 88.0 Mean Platelet Volume 11.9 H Monocytes # 1.2 H Monocytes % 7.8 Neutrophils # 11.9 H Neutrophils % 80.5 H Nucleated Red Blood Cells # 0.0 Nucleated Red Blood Cells % 0.0 Platelet Count 253 Potassium Level 3.3 L Red Blood Count 3.26 L Red Cell Distribution Width 17.2 H Sodium Level 148 H White Blood Count 14.8 #H Test 09/28/16 13:43 Bedside Glucose 200 Medications Medications Current Medications Ondansetron HCl (Zofran Inj) 4 mg Q6H PRN IV NAUSEA AND/OR VOMITING; Start 09/25 at 01:00 Acetaminophen (Tylenol Tab) 650 mg Q6H PRN PO PAIN LEVEL 1-3 OR FEVER; Start at 01:00 Acetaminophen/ Hydrocodone Bitart ([place] (5/325)) 1 tab Q6H PRN PO MODERATE PAIN LEVEL 4-6; Start 09/25/16 at 01:00 Morphine Sulfate (morphine) 2 mg Q4H PRN IV SEVERE PAIN LEVEL 7-10; Start at 01:00 Docusate Sodium (Colace) 100 mg Q12H PRN PO CONSTIPATION; Start 09/25/16 at 01: 00 Sodium Biphosphate/ Sodium Phosphate (Fleet Enema) 133 ml DAILY PRN [place] CONSTIPATION; Start 09/25/16 at 01:00 Heparin Sodium (Porcine) (Heparin (5000 Units/0.5 ml)) 5,000 unit Q12 SC Last administered on 09/28/16 09:34; Admin Dose 5,000 UNIT; Start 09/25/16 at 09:00 Lorazepam (Ativan) 0.5 mg Q6H PRN IV ANXIETY Last administered on 09/25/16 18: 23; Admin Dose 0.5 MG; Start 09/25/16 at 01:00 Hydralazine HCl (Apresoline) 10 mg Q6H PRN IV ELEVATED BLOOD PRESSURE; Start at 01:00 Nitroglycerin (Nitroglycerin (Sl Tab) 0.4 Mg) 1 tab Q5M PRN SL ANGINA; Start at 01:00 Aspirin (Ecotrin) 325 mg DAILY PO Last administered on 09/28/16 09:33; Admin Dose 325 MG; Start 09/25/16 at 09:00 Acetaminophen (Tylenol Tab) 650 mg Q4 PRN GTB ELEVATED TEMPERATURE; Start at 01:00 Atorvastatin Calcium (Lipitor) 20 mg QHS GTB Last administered on 09/27/16 21: 11; Admin Dose 20 MG; Start 09/25/16 at 21:00 Chlorhexidine Gluconate (Peridex) 15 ml Q12 MM Last administered on 09/28/16 09 :33; Admin Dose 15 ML; Start 09/25/16 at 09:00 Digoxin (Digoxin) 0.125 mg DAILY@13 GTB Last administered on 09/28/16 13:50; Admin Dose 0.125 MG; Start 09/25/16 at 13:00 Magnesium Hydroxide (Milk Of Mag) 30 ml DAILY PRN GTB CONSTIPATION; Start at 01:00 Multivitamins Therapeutic (Theragran) 1 tab DAILY GTB Last administered on 09:33; Admin Dose 1 TAB; Start 09/25/16 at 09:00 Fenofibrate (Tricor) 145 mg DAILY PO Last administered on 09/28/16 09:32; Admin Dose 145 MG; Start 09/25/16 at 09:00 Lansoprazole (Prevacid) 30 mg DAILY@06 GTB Last administered on 09/28/16 05:27 ; Admin Dose 30 MG; Start 09/25/16 at 06:00 Lactobacillus Acidoph/Bulgaricus (Floranex) 1 tab BID GTB Last administered on 09/28/16 09:32; Admin Dose 1 TAB; Start 09/25/16 at 09:00 Ascorbic Acid (Vitamin C) 500 mg DAILY PO Last administered on 09/28/16 09:32; Admin Dose 500 MG; Start 09/25/16 at 09:00 Ferrous Sulfate 300 mg 300 mg DAILY GTB Last administered on 09/28/16 09:33; Admin Dose 300 MG; Start 09/25/16 at 09:00 Sodium Chloride (NS) 1,000 ml @ 100 mls/hr Q10H IV Last administered on 13:41; Admin Dose 100 MLS/HR; Start 09/25/16 at 23:00 Insulin Aspart (Novolog Insulin Pen) NOVOLOG *MILD* ALGORI... Q6H SC Last administered on 09/28/16 13:45; Admin Dose 2 UNIT; Start 09/26/16 at 17:30 Miscellaneous Information 1 ea NOTE XX ; Start 09/26/16 at 17:30 Glucose (Glutose) 15 gm Q15M PRN PO DECREASED GLUCOSE; Start 09/26/16 at 17:30 Glucose (Glutose) 22.5 gm Q15M PRN PO DECREASED GLUCOSE; Start 09/26/16 at 17:30 Dextrose (D50w Syringe) 25 ml Q15M PRN IV DECREASED GLUCOSE; Start 09/26/16 at 17:30 Dextrose (D50w Syringe) 50 ml Q15M PRN IV DECREASED GLUCOSE; Start 09/26/16 at 17:30 Glucagon (Glucagen) 1 mg Q15M PRN IM DECREASED GLUCOSE; Start 09/26/16 at 17:30 Glucose (Glutose) 15 gm Q15M PRN BUCCAL DECREASED GLUCOSE; Start 09/26/16 at 17: 30 Collagenase (Santyl) 1 applic DAILY TOP Last administered on 09/28/16 09:43; Admin Dose 1 APPLIC; Start 09/27/16 at 11:30 Amiodarone HCl (Cordarone) 400 mg BID GTB Last administered on 09/28/16 09:37; Admin Dose 400 MG; Start 09/27/16 at 21:00 Levofloxacin 750 mg 750 mg DAILY@06 GTB Last administered on 09/28/16 05:27; Admin Dose 750 MG; Start 09/28/16 at 06:00 Potassium Chloride (KCl 40 MEQ/250 ML NS) 250 ml @ 62.5 mls/hr ONCE IVPB Last administered on 09/28/16 13:50; Admin Dose 62.5 MLS/HR; Start 09/28/16 at 13:30; Stop 09/28/16 at 17:29 Diltiazem HCl (Cardizem) 60 mg Q8 GTB ; Start 09/28/16 at 22:00 DILIP ARELLANO MD Sep 28, 2016 15:32
[2016-09-28] MEDS: CEFTRIAXONE 1 GM/50 ML (PMX) 50 ML IVPB SCH (17:57)
[2016-09-28] MEDS: ATORVASTATIN 20 MG TAB GTB SCH (21:04)
[2016-09-28] MEDS: MUPIROCIN 2% 22 GM OINT TOP SCH (21:04)
[2016-09-29] VITALS (48 sets, daily range): BP systolic 89–125; BP diastolic 48–72; PULSE 71–137; RESP 7–27
[2016-09-29] MEDS: LORAZEPAM 2 MG INJ IV PRN ×2 (00:14→06:55)
[2016-09-29] MEDS: INSULIN ASPART [NOVOLOG] 3 ML PEN SC SCH ×5 (00:21→23:20)
[2016-09-29] MEDS: morphine 2 MG INJ IV PRN ×2 (02:39→11:26)
[2016-09-29] MEDS ORDERED: LEVALBUTEROL (NEB) 0.63 MG/3 ML AMP HHN PRN (04:05)
[2016-09-29] MEDS ORDERED: DILTIAZEM 60 MG TAB GTB ONE (04:09)
[2016-09-29 05:23] LABS: ADD SCAN DIFF NO
[2016-09-29] MEDS: LEVOFLOXACIN 750 MG TABLET GTB SCH (05:36)
[2016-09-29] MEDS: LANSOPRAZOLE 30 MG CAP GTB SCH (05:36)
[2016-09-29 05:45] LABS: BASOPHILS % 0.2 % (0.0-2.0); EOSINOPHILS % 0.1 % (0.0-7.0); HEMATOCRIT 31.7 % (42.0-52.0); HEMOGLOBIN 9.4 g/dl (14.0-18.0); LYMPHOCYTES # 2.1 10^3/ul (0.8-2.9); LYMPHOCYTES % 14.9 % (15.0-51.0); MEAN CORPUSCULAR HEMOGLOBIN 26.7 pg (29.0-33.0); MEAN CORPUSCULAR HGB CONC 29.7 g/dl (32.0-37.0); MEAN CORPUSCULAR VOLUME 90.1 fl (82.0-101.0); MEAN PLATELET VOLUME 12.5 fl (7.4-10.4); MONOCYTE # 0.9 10^3/ul (0.3-0.9); MONOCYTES % 6.2 % (0.0-11.0); NEUTROPHIL # 11.1 10^3/ul (1.6-7.5); NEUTROPHILS % 78.2 % (39.0-77.0); PLATELET COUNT 275 10^3/UL (140-415); RED BLOOD COUNT 3.52 10^6/ul (4.70-6.10); RED CELL DISTRIBUTION WIDTH 17.4 % (11.5-14.5); WHITE BLOOD COUNT 14.2 10^3/ul (4.8-10.8)
[2016-09-29 05:51] LABS: POTASSIUM 4.5 mmol/L (3.5-5.1)
[2016-09-29 05:53] LABS: CREATININE 1.07 mg/dl (0.61-1.24)
[2016-09-29 05:54] LABS: CALCIUM 8.2 mg/dl (8.4-10.2)
[2016-09-29] MEDS: DILTIAZEM 60 MG TAB GTB SCH ×3 (06:00→21:53)
[2016-09-29 06:10] LABS: AADO2 Arterial 199.3 mmHg (7.0-24.0); Allen Test ACCEPTAB; Arterial Base Excess -3.8 mmol/L (-3.0-3); Arterial COHb 0.3 % (0.0-3.0); Arterial Fraction of Oxyhgb 87.9 % (93.0-99.0); Arterial HCO3 19.1 mmol/L (22.0-26.0); Arterial MetHb 0.4 % (0.0-1.5); Arterial Total Hemglobin 10.6 g/dl (12.0-18.0); MODE TRACH COLLAR
[2016-09-29 07:07] LABS: D-DIMER 1843.49 ng/ml (<460)
[2016-09-29 09:20] LABS: AADO2 Arterial 258.9 mmHg (7.0-24.0); Allen Test ACCEPTAB; Arterial Base Excess -1.7 mmol/L (-3.0-3); Arterial COHb 0.3 % (0.0-3.0); Arterial Fraction of Oxyhgb 98.5 % (93.0-99.0); Arterial MetHb 0.5 % (0.0-1.5); Arterial Total Hemglobin 9.7 g/dl (12.0-18.0); MODE VENT - AC
[2016-09-29] MEDS: CHLORHEXIDINE GLUCONATE 15 ML UD CUP MM SCH ×2 (10:08→21:52)
[2016-09-29] MEDS: ASPIRIN (EC) 325 MG TAB PO SCH (10:08)
[2016-09-29] MEDS: LACTOBACILLUS CHEW TAB GTB SCH ×2 (10:08→21:52)
[2016-09-29] MEDS: FENOFIBRATE 145 MG TAB PO SCH (10:08)
[2016-09-29] MEDS: FERROUS SULFATE 60 MG/ML 5ML CUP GTB SCH (10:11)
[2016-09-29] MEDS: ASCORBIC ACID 500 MG TAB PO SCH (10:11)
[2016-09-29] MEDS: AMIODARONE 200 MG TAB GTB SCH ×2 (10:11→21:51)
[2016-09-29] MEDS: MULTIVITAMINS THERAPEUTIC TAB GTB SCH (10:12)
[2016-09-29] MEDS: HEPARIN 5,000 UNIT/0.5 ML SYG SC SCH ×2 (10:13→21:54)
--- NOTE | 2016-09-29 12:10 | PN ---
DATE: 09/29/2016 FOLLOWUP NOTE SUBJECTIVE: Patient Jaison was transferred to the intensive care unit for increasing congestion and hypoxemia, difficulty clearing secretions. Upon suctioning large mucus plugs were removed from his airway, with improvement in his overall respiratory status. PHYSICAL EXAMINATION: VITAL SIGNS: Temperature 98, pulse is 99, blood pressure 105/60, O2 saturation 96 on 28% cool aeros ol. NECK: Supple. No JVD or lymphadenopathy. CARDIAC EXAM: S1, S2. No added sounds or murmurs. CHEST: Diminished air entry bilaterally. ABDOMEN: Soft, nontender. No guarding or rebound. EXTREMITIES: No cyanosis, clubbing or edema. NEUROLOGIC: Generalized weakness, but unable to assess. LABORATORY: White count 14.2, hemoglobin 11.4, platelets of 275. BUN 45, creatinine 1.07. ABG, Pa O2 was 425 on mechanical ventilation. IMPRESSION AND PLAN: 1. Chronic respiratory failure, with evidence of mucus plugging, now improved following removal. 2. Atrial fibrillation with rapid ventricular response. 3. History of coronary artery disease. 4. Chronic encephalopathy. 5. Recent urinary tract infection. PLAN: 1. Continue pulmonary toilet. 2. Continue tube feeding. 3. Continue antibiotics. 4. Cardiology recommendations for current heart rate. 5. Consider transfer back to the nursing home facility now that the patient is more stable. Dictated By: MUNIR JAMES/GENOVEVA Conf#: [id number] DID#: [id number]
--- NOTE | 2016-09-29 12:45 | CONS ---
Date/Time of Note Date/Time of Note DATE: 09/29/16 TIME: 12:41 Assessment/Plan Assessment/Plan Additional Assessment/Plan SIRS Paroxysmal atrial fibrillation/flutter Paroxysmal supraventricular tachycardia Preserved ejection fraction Respiratory failure status post tracheostomy History of CVA -Patient with respiratory distress yesterday and resolved after treatment of mucous plugging and secretions. Heart rate trend has improved. Continue Cardizem, if his heart rate remains stable, with taper down amiodarone. Patient not on anticoagulation secondary to recent hematuria Consultation Date/Type/Reason Admit Date/Time Sep 25, 2016 at 06:58 Initial Consult Date 09/26/16 Type of Consultation: cv 24 HR Interval Summary Free Text/Dictation Patient with respiratory distress yesterday, found to have significant mucus plugging and resolved after treatment. Currently denies any shortness of breath , chest pain or palpitations Exam/Review of Systems Vital Signs Vitals Vital Signs Date Time Temp Pulse Resp B/P Pulse Ox O2 Delivery O2 Flow Rate FiO2 09/29/16 08:00 99 09/29/16 04:35 40 96 Aerosol 5.0 28 09/29/16 04:00 98.7 105/61 Intake and Output 09/28/16 09/28/16 09/29/16 15:00 23:00 07:00 Intake Total 900 ml 846 ml Output Total 500 ml 500 ml Balance 400 ml 346 ml Exam Follows commands, no apparent distress Constitutional: alert Head: normocephalic Neck: other (Tracheostomy) Respiratory: other (Coarse breath sounds bilaterally, no wheezing) Cardiovascular: irregular rhythm, other (S1-S2 heard) Gastrointestinal: bowel sounds, non-tender, other (No guarding), soft Extremities: edema (Trace), other (No cyanosis) Results Result Diagram: 09/29/16 0415 09/29/16 0415 Results 24 hrs Laboratory Tests Test 09/28/16 13:43 09/28/16 18:43 09/29/16 00:11 09/29/16 04:15 Bedside Glucose 200 186 181 Anion Gap 19 H Basophils # 0.0 Basophils % 0.2 Blood Urea Nitrogen 45 H Calcium Level 8.2 L Carbon Dioxide Level 22 Chloride Level 115 H Creatinine 1.07 D-Dimer 1843.49 H D-Dimer Comment Eosinophils # 0.0 Eosinophils % 0.1 Glucose Level 192 Hematocrit 31.7 L Hemoglobin 9.4 L Lymphocytes # 2.1 Lymphocytes % 14.9 L Mean Corpuscular Hemoglobin 26.7 L Mean Corpuscular Hemoglobin Concent 29.7 L Mean Corpuscular Volume 90.1 Mean Platelet Volume 12.5 H Monocytes # 0.9 Monocytes % 6.2 Neutrophils # 11.1 H Neutrophils % 78.2 H Nucleated Red Blood Cells # 0.0 Nucleated Red Blood Cells % 0.0 Platelet Count 275 Potassium Level 4.5 Red Blood Count 3.52 L Red Cell Distribution Width 17.4 H Sodium Level 151 H Troponin I 0.232 *H White Blood Count 14.2 H Test 09/29/16 05:34 09/29/16 06:05 09/29/16 09:14 09/29/16 12:02 Bedside Glucose 218 129 Arterial Blood HCO3 19.1 L 21.0 L Arterial Blood Base Excess -3.8 L -1.7 Arterial Blood Oxygen Saturation 88.5 L 99.3 Vinayak Test ACCEPTAB ACCEPTAB Arterial Blood Gas Puncture Site Right Radial Left Radial Arterial Blood Carboxyhemoglobin 0.3 0.3 Arterial Blood Date Drawn 09/29/2016 6:00:06 AM 09/29/2016 9:05:00 AM Arterial Blood Methemoglobin 0.4 0.5 Arterial Blood pCO2 (Temp correct) 27.7 L 28.4 L Arterial Blood pH (Temp corrected) 7.456 H 7.487 H Arterial Blood pO2 (Temp corrected) 54.0 *L 425.7 H Blood Gas A-a O2 Differential 199.3 H 258.9 H Blood Gas Critical Value Read Back [facility] RN Blood Gas Modality TRACH COLLAR VENT - AC Blood Gas Notified Time 09/29/2016 6:10:22 AM 09/29/2016 9:16:00 AM Blood Gas Notified Whom ANAYA ELIZONDO Blood Gas Specimen Source Blood arterial Blood arterial Blood Gas Temperature 37.0 37.0 FiO2 40.0 100.0 Oxyhemoglobin Percent 87.9 L 98.5 Total Hemoglobin 10.6 L 9.7 L Blood Gas Actual Respiration Rate 16 Blood Gas Low PEEP Setting 5.0 Blood Gas Respiration Rate 14.0 Blood Gas Tidal Volume 550.0 Medications Medications Current Medications Ondansetron HCl (Zofran Inj) 4 mg Q6H PRN IV NAUSEA AND/OR VOMITING; Start 09/25 at 01:00 Acetaminophen (Tylenol Tab) 650 mg Q6H PRN PO PAIN LEVEL 1-3 OR FEVER; Start at 01:00 Acetaminophen/ Hydrocodone Bitart ([place] (5/325)) 1 tab Q6H PRN PO MODERATE PAIN LEVEL 4-6; Start 09/25/16 at 01:00 Morphine Sulfate (morphine) 2 mg Q4H PRN IV SEVERE PAIN LEVEL 7-10 Last administered on 09/29/16 11:26; Admin Dose 2 MG; Start 09/25/16 at 01:00 Docusate Sodium (Colace) 100 mg Q12H PRN PO CONSTIPATION; Start 09/25/16 at 01: 00 Sodium Biphosphate/ Sodium Phosphate (Fleet Enema) 133 ml DAILY PRN [place] CONSTIPATION; Start 09/25/16 at 01:00 Heparin Sodium (Porcine) (Heparin (5000 Units/0.5 ml)) 5,000 unit Q12 SC Last administered on 09/29/16 10:13; Admin Dose 5,000 UNIT; Start 09/25/16 at 09:00 Lorazepam (Ativan) 0.5 mg Q6H PRN IV ANXIETY Last administered on 09/29/16 06: 55; Admin Dose 0.5 MG; Start 09/25/16 at 01:00 Hydralazine HCl (Apresoline) 10 mg Q6H PRN IV ELEVATED BLOOD PRESSURE; Start at 01:00 Nitroglycerin (Nitroglycerin (Sl Tab) 0.4 Mg) 1 tab Q5M PRN SL ANGINA; Start at 01:00 Aspirin (Ecotrin) 325 mg DAILY PO Last administered on 09/29/16 10:08; Admin Dose 325 MG; Start 09/25/16 at 09:00 Acetaminophen (Tylenol Tab) 650 mg Q4 PRN GTB ELEVATED TEMPERATURE; Start at 01:00 Atorvastatin Calcium (Lipitor) 20 mg QHS GTB Last administered on 09/28/16 21: 04; Admin Dose 20 MG; Start 09/25/16 at 21:00 Chlorhexidine Gluconate (Peridex) 15 ml Q12 MM Last administered on 09/29/16 10:08; Admin Dose 15 ML; Start 09/25/16 at 09:00 Digoxin (Digoxin) 0.125 mg DAILY@13 GTB Last administered on 09/28/16 13:50; Admin Dose 0.125 MG; Start 09/25/16 at 13:00 Magnesium Hydroxide (Milk Of Mag) 30 ml DAILY PRN GTB CONSTIPATION; Start at 01:00 Multivitamins Therapeutic (Theragran) 1 tab DAILY GTB Last administered on 09/29 10:12; Admin Dose 1 TAB; Start 09/25/16 at 09:00 Fenofibrate (Tricor) 145 mg DAILY PO Last administered on 09/29/16 10:08; Admin Dose 145 MG; Start 09/25/16 at 09:00 Lansoprazole (Prevacid) 30 mg DAILY@06 GTB Last administered on 09/29/16 05:36 ; Admin Dose 30 MG; Start 09/25/16 at 06:00 Lactobacillus Acidoph/Bulgaricus (Floranex) 1 tab BID GTB Last administered on 09/29/16 10:08; Admin Dose 1 TAB; Start 09/25/16 at 09:00 Ascorbic Acid (Vitamin C) 500 mg DAILY PO Last administered on 09/29/16 10:11 ; Admin Dose 500 MG; Start 09/25/16 at 09:00 Ferrous Sulfate (Feosol Liquid Cup) 300 mg DAILY GTB Last administered on 10:11; Admin Dose 300 MG; Start 09/25/16 at 09:00 Insulin Aspart (Novolog Insulin Pen) NOVOLOG *MILD* ALGORI... Q6H SC Last administered on 09/29/16 05:45; Admin Dose 2 UNIT; Start 09/26/16 at 17:30 Miscellaneous Information 1 ea NOTE XX ; Start 09/26/16 at 17:30 Glucose (Glutose) 15 gm Q15M PRN PO DECREASED GLUCOSE; Start 09/26/16 at 17:30 Glucose (Glutose) 22.5 gm Q15M PRN PO DECREASED GLUCOSE; Start 09/26/16 at 17:30 Dextrose (D50w Syringe) 25 ml Q15M PRN IV DECREASED GLUCOSE; Start 09/26/16 at 17:30 Dextrose (D50w Syringe) 50 ml Q15M PRN IV DECREASED GLUCOSE; Start 09/26/16 at 17:30 Glucagon (Glucagen) 1 mg Q15M PRN IM DECREASED GLUCOSE; Start 09/26/16 at 17:30 Glucose (Glutose) 15 gm Q15M PRN BUCCAL DECREASED GLUCOSE; Start 09/26/16 at 17: 30 Collagenase (Santyl) 1 applic DAILY TOP Last administered on 09/28/16 09:43; Admin Dose 1 APPLIC; Start 09/27/16 at 11:30 Amiodarone HCl (Cordarone) 400 mg BID GTB Last administered on 09/29/16 10:11 ; Admin Dose 400 MG; Start 09/27/16 at 21:00 Levofloxacin (Levaquin) 750 mg DAILY@06 GTB Last administered on 09/29/16 05: 36; Admin Dose 750 MG; Start 09/28/16 at 06:00 Diltiazem HCl 60 mg 60 mg Q8 GTB Last administered on 09/28/16 21:09; Admin Dose 60 MG; Start 09/28/16 at 22:00 Ceftriaxone Sodium (Rocephin) 50 ml @ 100 mls/hr Q24H IVPB Last administered on 09/28/16 17:57; Admin Dose 100 MLS/HR; Start 09/28/16 at 15:30 Mupirocin (Bactroban) 1 applic BID TOP Last administered on 09/28/16 21:04; Admin Dose 1 APPLIC; Start 09/28/16 at 21:00 Ervin Ceja DO Sep 29, 2016 12:44
[2016-09-29] MEDS: COLLAGENASE 30 GM TUBE TOP SCH (13:31)
[2016-09-29] MEDS: MUPIROCIN 2% 22 GM OINT TOP SCH ×2 (13:31→21:52)
[2016-09-29] MEDS: DIGOXIN 0.125 MG TAB GTB SCH (13:32)
[2016-09-29 14:36] LABS: CK-MB 0.35 ng/ml (0.0-2.4); CREATINE KINASE < 20 IU/L (23-200); TROPONIN-I 0.271 ng/ml (0.00-0.12)
--- NOTE | 2016-09-29 14:44 | RADRPT ---
Vent Rate: 131 bpm RR Interval: 0 msec [place] Interval: 0 msec QRS Duration: 96 msec QT Interval: 308 msec QTC Interval: 454 msec P-R-T [place]: 0 - 21 - -45 degrees Atrial fibrillation with rapis ventricvular response Cannot rule out Inferior infarct , age undetermined Abnormal ECG Electronically Signed By: Aram Ziegler [id number]
--- NOTE | 2016-09-29 16:55 | PN ---
Date/Time of Note Date/Time of Note DATE: 09/29/16 TIME: 16:53 Assessment/Plan VTE Prophylaxis VTE Prophylaxis Intervention: SCD's Lines/Catheters IV [facility] Urinary Cath still in place: Yes Reason Cath still needed: other (indicate) Assessment/Plan Chief Complaint/Hosp Course ASSESSMENT AND PLAN: 1. atrial fibrillation with rapid ventricular response , rate controlled, status post Cardizem transitioned to oral Cardizem and amiodarone, cardiology has been consulted 2. Chest pressure and shortness of breath secondary to atrial fibrillation with rapid ventricular response. Continue p.o. digoxin 3. History of coronary artery disease. With elevated troponins which is trending down. Continue high dose aspirin. Cardiology following 4. NSTEMI versus demand ischemia. cardiology consult. Continue high dose Lipitor and aspirin. Morphine, oxygen, nitrates p.r.n. 5. History of prior stroke. Continue medical management 6. History of essential hypertension. Continue current medications. 7. 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 continue breathing treatment and vent management, pulmonary consult. Continue DuoNebs p.r.n. 8. Urinary tract infection, continue Levaquin and Rocephin 9. Gastrointestinal prophylaxis. Prevacid. 10. Deep venous thrombosis prophylaxis. Heparin subQ. We will continue monitor patient closely for recommendation management treatment as clinical course Plan to discharge to assisted facility if leukocytosis improves Problems: Subjective 24 Hr Interval Summary Free Text/Dictation Patient was found to have respiratory distress this morning therefore was transferred to ICU He is awake alert Exam/Review of Systems Vital Signs Vitals Vital Signs Date Time Temp Pulse Resp B/P Pulse Ox O2 Delivery O2 Flow Rate FiO2 09/29/16 16:00 98.2 91 20 105/61 100 Mechanical Ventilator 09/29/16 04:35 5.0 28 Intake and Output 09/28/16 09/28/16 09/29/16 15:00 23:00 07:00 Intake Total 900 ml 846 ml Output Total 500 ml 500 ml Balance 400 ml 346 ml Exam General: The patient is in moderate distress. HEENT: Atraumatic, normocephalic. The pupils are equal and round . Neck: Trach in place Chest: Normal expansion of the thorax during inspiration Lungs: Clear to auscultation bilaterally Heart: Normal S1-S2, Regular rhythm and rate. Abdomen: Soft , nontender, nondistended , bowel sounds are present. PEG tube in place Extremities: Normal to inspection, no edema no cyanosis Neurologic: The patient is awake, alert Results Result Diagram: 09/29/16 0415 09/29/16 0415 Results 24 hrs Laboratory Tests Test 09/28/16 18:43 09/29/16 00:11 09/29/16 04:15 09/29/16 05:34 Bedside Glucose 186 181 218 Anion Gap 19 H Basophils # 0.0 Basophils % 0.2 Blood Urea Nitrogen 45 H Calcium Level 8.2 L Carbon Dioxide Level 22 Chloride Level 115 H Creatinine 1.07 D-Dimer 1843.49 H D-Dimer Comment Eosinophils # 0.0 Eosinophils % 0.1 Glucose Level 192 Hematocrit 31.7 L Hemoglobin 9.4 L Lymphocytes # 2.1 Lymphocytes % 14.9 L Mean Corpuscular Hemoglobin 26.7 L Mean Corpuscular Hemoglobin Concent 29.7 L Mean Corpuscular Volume 90.1 Mean Platelet Volume 12.5 H Monocytes # 0.9 Monocytes % 6.2 Neutrophils # 11.1 H Neutrophils % 78.2 H Nucleated Red Blood Cells # 0.0 Nucleated Red Blood Cells % 0.0 Platelet Count 275 Potassium Level 4.5 Red Blood Count 3.52 L Red Cell Distribution Width 17.4 H Sodium Level 151 H Troponin I 0.232 *H White Blood Count 14.2 H Test 09/29/16 06:05 09/29/16 09:14 09/29/16 12:02 09/29/16 13:20 Arterial Blood HCO3 19.1 L 21.0 L Arterial Blood Base Excess -3.8 L -1.7 Arterial Blood Oxygen Saturation 88.5 L 99.3 Vinayak Test ACCEPTAB ACCEPTAB Arterial Blood Gas Puncture Site Right Radial Left Radial Arterial Blood Carboxyhemoglobin 0.3 0.3 Arterial Blood Date Drawn 09/29/2016 6:00:06 AM 09/29/2016 9:05:00 AM Arterial Blood Methemoglobin 0.4 0.5 Arterial Blood pCO2 (Temp correct) 27.7 L 28.4 L Arterial Blood pH (Temp corrected) 7.456 H 7.487 H Arterial Blood pO2 (Temp corrected) 54.0 *L 425.7 H Blood Gas A-a O2 Differential 199.3 H 258.9 H Blood Gas Critical Value Read Back [facility] RN Blood Gas Modality TRACH COLLAR VENT - AC Blood Gas Notified Time 09/29/2016 6:10:22 AM 09/29/2016 9:16:00 AM Blood Gas Notified Whom ANAYA ELIZONDO Blood Gas Specimen Source Blood arterial Blood arterial Blood Gas Temperature 37.0 37.0 FiO2 40.0 100.0 Oxyhemoglobin Percent 87.9 L 98.5 Total Hemoglobin 10.6 L 9.7 L Blood Gas Actual Respiration Rate 16 Blood Gas Low PEEP Setting 5.0 Blood Gas Respiration Rate 14.0 Blood Gas Tidal Volume 550.0 Bedside Glucose 129 Creatine Kinase < 20 L Creatine Kinase Index Creatinine Kinase MB (Mass) 0.35 Troponin I 0.271 *H Medications Medications Current Medications Ondansetron HCl (Zofran Inj) 4 mg Q6H PRN IV NAUSEA AND/OR VOMITING; Start 09/25 at 01:00 Acetaminophen (Tylenol Tab) 650 mg Q6H PRN PO PAIN LEVEL 1-3 OR FEVER; Start at 01:00 Acetaminophen/ Hydrocodone Bitart ([place] (5/325)) 1 tab Q6H PRN PO MODERATE PAIN LEVEL 4-6; Start 09/25/16 at 01:00 Morphine Sulfate (morphine) 2 mg Q4H PRN IV SEVERE PAIN LEVEL 7-10 Last administered on 09/29/16 11:26; Admin Dose 2 MG; Start 09/25/16 at 01:00 Docusate Sodium (Colace) 100 mg Q12H PRN PO CONSTIPATION; Start 09/25/16 at 01: 00 Sodium Biphosphate/ Sodium Phosphate (Fleet Enema) 133 ml DAILY PRN [place] CONSTIPATION; Start 09/25/16 at 01:00 Heparin Sodium (Porcine) (Heparin (5000 Units/0.5 ml)) 5,000 unit Q12 SC Last administered on 09/29/16 10:13; Admin Dose 5,000 UNIT; Start 09/25/16 at 09:00 Lorazepam (Ativan) 0.5 mg Q6H PRN IV ANXIETY Last administered on 09/29/16 06: 55; Admin Dose 0.5 MG; Start 09/25/16 at 01:00 Hydralazine HCl (Apresoline) 10 mg Q6H PRN IV ELEVATED BLOOD PRESSURE; Start at 01:00 Nitroglycerin (Nitroglycerin (Sl Tab) 0.4 Mg) 1 tab Q5M PRN SL ANGINA; Start at 01:00 Aspirin (Ecotrin) 325 mg DAILY PO Last administered on 09/29/16 10:08; Admin Dose 325 MG; Start 09/25/16 at 09:00 Acetaminophen (Tylenol Tab) 650 mg Q4 PRN GTB ELEVATED TEMPERATURE; Start at 01:00 Atorvastatin Calcium (Lipitor) 20 mg QHS GTB Last administered on 09/28/16 21: 04; Admin Dose 20 MG; Start 09/25/16 at 21:00 Chlorhexidine Gluconate (Peridex) 15 ml Q12 MM Last administered on 09/29/16 10:08; Admin Dose 15 ML; Start 09/25/16 at 09:00 Digoxin (Digoxin) 0.125 mg DAILY@13 GTB Last administered on 09/29/16 13:32; Admin Dose 0.125 MG; Start 09/25/16 at 13:00 Magnesium Hydroxide (Milk Of Mag) 30 ml DAILY PRN GTB CONSTIPATION; Start at 01:00 Multivitamins Therapeutic (Theragran) 1 tab DAILY GTB Last administered on 09/29 10:12; Admin Dose 1 TAB; Start 09/25/16 at 09:00 Fenofibrate (Tricor) 145 mg DAILY PO Last administered on 09/29/16 10:08; Admin Dose 145 MG; Start 09/25/16 at 09:00 Lansoprazole (Prevacid) 30 mg DAILY@06 GTB Last administered on 09/29/16 05:36 ; Admin Dose 30 MG; Start 09/25/16 at 06:00 Lactobacillus Acidoph/Bulgaricus (Floranex) 1 tab BID GTB Last administered on 09/29/16 10:08; Admin Dose 1 TAB; Start 09/25/16 at 09:00 Ascorbic Acid (Vitamin C) 500 mg DAILY PO Last administered on 09/29/16 10:11 ; Admin Dose 500 MG; Start 09/25/16 at 09:00 Ferrous Sulfate (Feosol Liquid Cup) 300 mg DAILY GTB Last administered on 10:11; Admin Dose 300 MG; Start 09/25/16 at 09:00 Insulin Aspart (Novolog Insulin Pen) NOVOLOG *MILD* ALGORI... Q6H SC Last administered on 09/29/16 05:45; Admin Dose 2 UNIT; Start 09/26/16 at 17:30 Miscellaneous Information 1 ea NOTE XX ; Start 09/26/16 at 17:30 Glucose (Glutose) 15 gm Q15M PRN PO DECREASED GLUCOSE; Start 09/26/16 at 17:30 Glucose (Glutose) 22.5 gm Q15M PRN PO DECREASED GLUCOSE; Start 09/26/16 at 17:30 Dextrose (D50w Syringe) 25 ml Q15M PRN IV DECREASED GLUCOSE; Start 09/26/16 at 17:30 Dextrose (D50w Syringe) 50 ml Q15M PRN IV DECREASED GLUCOSE; Start 09/26/16 at 17:30 Glucagon (Glucagen) 1 mg Q15M PRN IM DECREASED GLUCOSE; Start 09/26/16 at 17:30 Glucose (Glutose) 15 gm Q15M PRN BUCCAL DECREASED GLUCOSE; Start 09/26/16 at 17: 30 Collagenase (Santyl) 1 applic DAILY TOP Last administered on 09/29/16 13:31; Admin Dose 1 APPLIC; Start 09/27/16 at 11:30 Amiodarone HCl (Cordarone) 400 mg BID GTB Last administered on 09/29/16 10:11 ; Admin Dose 400 MG; Start 09/27/16 at 21:00 Levofloxacin (Levaquin) 750 mg DAILY@06 GTB Last administered on 09/29/16 05: 36; Admin Dose 750 MG; Start 09/28/16 at 06:00 Diltiazem HCl 60 mg 60 mg Q8 GTB Last administered on 09/28/16 21:09; Admin Dose 60 MG; Start 09/28/16 at 22:00 Ceftriaxone Sodium (Rocephin) 50 ml @ 100 mls/hr Q24H IVPB Last administered on 09/28/16 17:57; Admin Dose 100 MLS/HR; Start 09/28/16 at 15:30 Mupirocin (Bactroban) 1 applic BID TOP Last administered on 09/29/16 13:31; Admin Dose 1 APPLIC; Start 09/28/16 at 21:00 DILIP ARELLANO MD Sep 29, 2016 16:55
[2016-09-29] MEDS: CEFTRIAXONE 1 GM/50 ML (PMX) 50 ML IVPB SCH (17:09)
[2016-09-29] MEDS: ATORVASTATIN 20 MG TAB GTB SCH (21:52)
[2016-09-30] VITALS (22 sets, daily range): BP systolic 89–114; BP diastolic 49–73; PULSE 67–140; RESP 13–30
[2016-09-30] MEDS ORDERED: DILTIAZEM 25 MG INJ IV ONE (01:00)
[2016-09-30] MEDS ORDERED: DILTIAZEM-D5W 125MG/125ML DRIP 125 ML IV SCH (02:26)
[2016-09-30 05:00] LABS: ADD SCAN DIFF NO
[2016-09-30] MEDS: INSULIN ASPART [NOVOLOG] 3 ML PEN SC SCH ×3 (05:14→17:36)
[2016-09-30] MEDS: DILTIAZEM 60 MG TAB GTB SCH ×3 (05:15→22:08)
[2016-09-30] MEDS: LANSOPRAZOLE 30 MG CAP GTB SCH (05:15)
[2016-09-30 05:16] LABS: BASOPHILS % 0.3 % (0.0-2.0); EOSINOPHILS % 0.1 % (0.0-7.0); HEMATOCRIT 30.4 % (42.0-52.0); LYMPHOCYTES # 2.2 10^3/ul (0.8-2.9); LYMPHOCYTES % 14.7 % (15.0-51.0); MEAN CORPUSCULAR HEMOGLOBIN 26.6 pg (29.0-33.0); MEAN CORPUSCULAR HGB CONC 29.6 g/dl (32.0-37.0); MEAN CORPUSCULAR VOLUME 89.9 fl (82.0-101.0); MEAN PLATELET VOLUME 11.8 fl (7.4-10.4); MONOCYTE # 0.8 10^3/ul (0.3-0.9); MONOCYTES % 5.2 % (0.0-11.0); NEUTROPHIL # 11.9 10^3/ul (1.6-7.5); NEUTROPHILS % 79.2 % (39.0-77.0); PLATELET COUNT 297 10^3/UL (140-415); RED BLOOD COUNT 3.38 10^6/ul (4.70-6.10); RED CELL DISTRIBUTION WIDTH 17.4 % (11.5-14.5)
[2016-09-30] MEDS: LEVOFLOXACIN 750 MG TABLET GTB SCH (05:16)
[2016-09-30 05:19] LABS: POTASSIUM 4.4 mmol/L (3.5-5.1)
[2016-09-30 05:22] LABS: CREATININE 1.51 mg/dl (0.61-1.24)
[2016-09-30 05:23] LABS: CALCIUM 8.9 mg/dl (8.4-10.2)
--- NOTE | 2016-09-30 08:55 | RADRPT ---
PROCEDURE: XR Chest. CLINICAL INDICATION: Shortness of breath. TECHNIQUE: Single frontal view. COMPARISON: 09/24/2016. FINDINGS: The tracheostomy tube is in satisfactory A position. There is mild pulmonary edema, worse than seen previously. Mild left basilar atelectasis is unchanged. The lungs are otherwise clear. The heart size is normal. There is no pleural effusion. There is no pneumothorax. IMPRESSION: 1. New mild pulmonary edema. 2. No other change from 09/24/2016. RPTAT: QQ .Alhaji Schultz MD, MD Date Time Electronically viewed and signed by .Alhaji Schultz MD, MD on 09/30/2016 08:54 .R/
[2016-09-30] MEDS: FERROUS SULFATE 60 MG/ML 5ML CUP GTB SCH (09:19)
[2016-09-30] MEDS: AMIODARONE 200 MG TAB GTB SCH ×2 (09:20→20:52)
[2016-09-30] MEDS: MULTIVITAMINS THERAPEUTIC TAB GTB SCH (09:22)
[2016-09-30] MEDS: LACTOBACILLUS CHEW TAB GTB SCH ×2 (09:22→21:02)
[2016-09-30] MEDS: ASPIRIN (EC) 325 MG TAB PO SCH (09:23)
[2016-09-30] MEDS: CHLORHEXIDINE GLUCONATE 15 ML UD CUP MM SCH ×2 (09:23→20:52)
[2016-09-30] MEDS: FENOFIBRATE 145 MG TAB PO SCH (09:24)
[2016-09-30] MEDS: ASCORBIC ACID 500 MG TAB PO SCH (09:24)
[2016-09-30] MEDS: MUPIROCIN 2% 22 GM OINT TOP SCH ×2 (09:26→21:21)
[2016-09-30] MEDS: COLLAGENASE 30 GM TUBE TOP SCH (09:26)
[2016-09-30] MEDS: HEPARIN 5,000 UNIT/0.5 ML SYG SC SCH ×2 (09:39→20:57)
--- NOTE | 2016-09-30 10:16 | PN ---
Date/Time of Note Date/Time of Note DATE: 09/30/16 TIME: 10:10 Assessment/Plan VTE Prophylaxis VTE Prophylaxis Intervention: heparin Lines/Catheters IV [facility]ter Type (from [facility]): Peripheral IV Urinary Cath still in place: Yes Reason Cath still needed: other (indicate) Assessment/Plan Chief Complaint/Hosp Course ASSESSMENT AND PLAN: 1. atrial fibrillation with rapid ventricular response , rate controlled, on Cardizem and amiodarone, cardiology has been consulted 2. Chest pressure and shortness of breath secondary to atrial fibrillation with rapid ventricular response. Continue p.o. digoxin 3. History of coronary artery disease. With elevated troponins which has trend down likely secondary to A. fib with RVR. Continue aspirin. Cardiology following 4. NSTEMI versus demand ischemia. cardiology consult. Continue high dose Lipitor and aspirin. Morphine, oxygen, nitrates p.r.n. 5. History of prior stroke. Continue medical management 6. History of essential hypertension. Continue current medications. 7. 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 continue breathing treatment and vent management, pulmonary consult. Continue DuoNebs p.r.n. 8. Urinary tract infection, continue Levaquin and Rocephin 9. Gastrointestinal prophylaxis. Prevacid. 10. Deep venous thrombosis prophylaxis. Heparin subQ. We will continue monitor patient closely for recommendation management treatment as clinical course Transfer to telemetry floor Problems: Subjective 24 Hr Interval Summary Free Text/Dictation No acute event Tolerating vent and PEG tube feeding Heart rate is well controlled on Cardizem Exam/Review of Systems Vital Signs Vitals Vital Signs Date Time Temp Pulse Resp B/P Pulse Ox O2 Delivery O2 Flow Rate FiO2 09/30/16 09:28 71 23 100 30 09/30/16 08:00 103/58 09/30/16 07:30 5.0 09/30/16 07:00 99.8 Trach Collar Intake and Output 09/29/16 09/29/16 09/30/16 15:00 23:00 07:00 Intake Total 100 ml 50 ml 1230 ml Output Total 275 ml 85 ml 700 ml Balance -175 ml -35 ml 530 ml Exam General: The patient is not in acute distress. HEENT: Atraumatic, normocephalic. The pupils are equal and round . Neck: Trach in place Chest: Normal expansion of the thorax during inspiration Lungs: Clear to auscultation bilaterally Heart: Normal S1-S2, irregular rhythm and rate Abdomen: Soft , nontender, nondistended , bowel sounds are present. PEG tube in place Extremities: Flaccid bilateral upper and lower extremity, with contracture, +1 edema no cyanosis Neurologic: Normal mental status,The patient is awake, alert and oriented . Results Result Diagram: 09/30/16 0425 09/30/16 0425 Results 24 hrs Laboratory Tests Test 09/29/16 12:02 09/29/16 13:20 09/29/16 17:03 09/29/16 23:17 Bedside Glucose 129 106 104 Creatine Kinase < 20 L Creatine Kinase Index Creatinine Kinase MB (Mass) 0.35 Troponin I 0.271 *H Test 09/30/16 04:25 09/30/16 05:13 Anion Gap 17 H Basophils # 0.0 Basophils % 0.3 Blood Urea Nitrogen 53 H Calcium Level 8.9 Carbon Dioxide Level 23 Chloride Level 119 H Creatinine 1.51 H Eosinophils # 0.0 Eosinophils % 0.1 Glucose Level 130 # Hematocrit 30.4 L Hemoglobin 9.0 L Lymphocytes # 2.2 Lymphocytes % 14.7 L Mean Corpuscular Hemoglobin 26.6 L Mean Corpuscular Hemoglobin Concent 29.6 L Mean Corpuscular Volume 89.9 Mean Platelet Volume 11.8 H Monocytes # 0.8 Monocytes % 5.2 Neutrophils # 11.9 H Neutrophils % 79.2 H Nucleated Red Blood Cells # 0.0 Nucleated Red Blood Cells % 0.0 Platelet Count 297 Potassium Level 4.4 Red Blood Count 3.38 L Red Cell Distribution Width 17.4 H Sodium Level 155 H White Blood Count 15.0 H Bedside Glucose 135 Medications Medications Current Medications Ondansetron HCl (Zofran Inj) 4 mg Q6H PRN IV NAUSEA AND/OR VOMITING; Start 09/25 at 01:00 Acetaminophen (Tylenol Tab) 650 mg Q6H PRN PO PAIN LEVEL 1-3 OR FEVER; Start at 01:00 Acetaminophen/ Hydrocodone Bitart ([place] (5/325)) 1 tab Q6H PRN PO MODERATE PAIN LEVEL 4-6; Start 09/25/16 at 01:00 Morphine Sulfate (morphine) 2 mg Q4H PRN IV SEVERE PAIN LEVEL 7-10 Last administered on 09/29/16t 11:26; Admin Dose 2 MG; Start 09/25/16 at 01:00 Docusate Sodium (Colace) 100 mg Q12H PRN PO CONSTIPATION; Start 09/25/16 at 01: 00 Heparin Sodium (Porcine) (Heparin (5000 Units/0.5 ml)) 5,000 unit Q12 SC Last administered on 09/30/16 09:39; Admin Dose 5,000 UNIT; Start 09/25/16 at 09:00 Lorazepam (Ativan) 0.5 mg Q6H PRN IV ANXIETY Last administered on 09/29/16 06: 55; Admin Dose 0.5 MG; Start 09/25/16 at 01:00 Hydralazine HCl (Apresoline) 10 mg Q6H PRN IV ELEVATED BLOOD PRESSURE; Start at 01:00 Nitroglycerin (Nitroglycerin (Sl Tab) 0.4 Mg) 1 tab Q5M PRN SL ANGINA; Start at 01:00 Aspirin (Ecotrin) 325 mg DAILY PO Last administered on 09/30/16 09:23; Admin Dose 325 MG; Start 09/25/16 at 09:00 Acetaminophen (Tylenol Tab) 650 mg Q4 PRN GTB ELEVATED TEMPERATURE Last administered on 09/30/16 09:27; Admin Dose 650 MG; Start 09/25/16 at 01:00 Atorvastatin Calcium (Lipitor) 20 mg QHS GTB Last administered on 09/29/16 21: 52; Admin Dose 20 MG; Start 09/25/16 at 21:00 Chlorhexidine Gluconate (Peridex) 15 ml Q12 MM Last administered on 09/30/16 09:23; Admin Dose 15 ML; Start 09/25/16 at 09:00 Digoxin (Digoxin) 0.125 mg DAILY@13 GTB Last administered on 09/29/16 13:32; Admin Dose 0.125 MG; Start 09/25/16 at 13:00 Multivitamins Therapeutic (Theragran) 1 tab DAILY GTB Last administered on 09/30 09:22; Admin Dose 1 TAB; Start 09/25/16 at 09:00 Fenofibrate (Tricor) 145 mg DAILY PO Last administered on 09/30/16 09:24; Admin Dose 145 MG; Start 09/25/16 at 09:00 Lansoprazole (Prevacid) 30 mg DAILY@06 GTB Last administered on 09/30/16 05:15 ; Admin Dose 30 MG; Start 09/25/16 at 06:00 Lactobacillus Acidoph/Bulgaricus (Floranex) 1 tab BID GTB Last administered on 09/30/16 09:22; Admin Dose 1 TAB; Start 09/25/16 at 09:00 Ascorbic Acid (Vitamin C) 500 mg DAILY PO Last administered on 09/30/16 09:24 ; Admin Dose 500 MG; Start 09/25/16 at 09:00 Ferrous Sulfate (Feosol Liquid Cup) 300 mg DAILY GTB Last administered on 09:19; Admin Dose 300 MG; Start 09/25/16 at 09:00 Insulin Aspart (Novolog Insulin Pen) NOVOLOG *MILD* ALGORI... Q6H SC Last administered on 09/29/16 05:45; Admin Dose 2 UNIT; Start 09/26/16 at 17:30 Miscellaneous Information 1 ea NOTE XX ; Start 09/26/16 at 17:30 Glucose (Glutose) 15 gm Q15M PRN PO DECREASED GLUCOSE; Start 09/26/16 at 17:30 Glucose (Glutose) 22.5 gm Q15M PRN PO DECREASED GLUCOSE; Start 09/26/16 at 17:30 Dextrose (D50w Syringe) 25 ml Q15M PRN IV DECREASED GLUCOSE; Start 09/26/16 at 17:30 Dextrose (D50w Syringe) 50 ml Q15M PRN IV DECREASED GLUCOSE; Start 09/26/16 at 17:30 Glucagon (Glucagen) 1 mg Q15M PRN IM DECREASED GLUCOSE; Start 09/26/16 at 17:30 Glucose (Glutose) 15 gm Q15M PRN BUCCAL DECREASED GLUCOSE; Start 09/26/16 at 17: 30 Collagenase (Santyl) 1 applic DAILY TOP Last administered on 09/30/16 09:26; Admin Dose 1 APPLIC; Start 09/27/16 at 11:30 Amiodarone HCl (Cordarone) 400 mg BID GTB Last administered on 09/30/16 09:20 ; Admin Dose 400 MG; Start 09/27/16 at 21:00 Levofloxacin (Levaquin) 750 mg DAILY@06 GTB Last administered on 09/30/16 05: 16; Admin Dose 750 MG; Start 09/28/16 at 06:00 Diltiazem HCl 60 mg 60 mg Q8 GTB Last administered on 09/29/16 21:53; Admin Dose 60 MG; Start 09/28/16 at 22:00 Ceftriaxone Sodium (Rocephin) 50 ml @ 100 mls/hr Q24H IVPB Last administered on 09/29/16 17:09; Admin Dose 100 MLS/HR; Start 09/28/16 at 15:30 Mupirocin (Bactroban) 1 applic BID TOP Last administered on 09/30/16 09:26; Admin Dose 1 APPLIC; Start 09/28/16 at 21:00 DILIP ARELLANO MD Sep 30, 2016 10:16
--- NOTE | 2016-09-30 11:24 | CONS ---
Date/Time of Note Date/Time of Note DATE: 09/30/16 TIME: 11:20 Assessment/Plan Assessment/Plan Additional Assessment/Plan Ventilator settings; AC of 14, tidal volume 500, PEEP of 5, 30% FiO2. Assessment recommendations; 1. Patient admitted for respiratory failure likely from underlying mucous plug with subsequent removal. Chest x-ray is essentially unremarkable. 2. History of dementia. 3. History of chronic respiratory failure, history of tracheostomy and G-tube placement. 4. History of coronary artery disease. 5. History of recent UTI. 6. History of cardiac arrhythmia. 7. History of COPD. 8. History of anemia. Continue current medications. Wean the patient to T-piece as tolerated. Consultation Date/Type/Reason Admit Date/Time Sep 25, 2016 at 06:58 Initial Consult Date 09/26/16 Type of Consultation: Coronary/critical care 24 HR Interval Summary Free Text/Dictation Patient's condition remains critical. Still on full ventilator support. Has remained hemodynamically stable. General exam; elderly male, on ventilator via tracheostomy , remains minimally responsive. Exam/Review of Systems Vital Signs Vitals Vital Signs Date Time Temp Pulse Resp B/P Pulse Ox O2 Delivery O2 Flow Rate FiO2 09/30/16 11:12 70 22 100 30 09/30/16 08:00 103/58 09/30/16 07:30 5.0 09/30/16 07:00 99.8 Trach Collar Intake and Output 09/29/16 09/29/16 09/30/16 15:00 23:00 07:00 Intake Total 100 ml 50 ml 1230 ml Output Total 275 ml 85 ml 700 ml Balance -175 ml -35 ml 530 ml Exam H EENT examination; supple neck, tracheostomy placed. Insertion site is clean. With a small bilaterally. No neck masses. No thyromegaly. Chest examination; diminished but clear breath sounds bilaterally. S1-S2 audible, irregular rhythm. No murmurs. Abdomen examination; soft, nondistended. No organomegaly. G-tube in place. Bowel sounds audible. Extremity examination; no peripheral edema. Pulses 1+ bilaterally. CHIEF OF PEDIATRIC UROLOGY examination; patient remains minimally responsive. Results Result Diagram: 09/30/16 0425 09/30/16 0425 Results 24 hrs Laboratory Tests Test 09/29/16 12:02 09/29/16 13:20 09/29/16 17:03 09/29/16 23:17 Bedside Glucose 129 106 104 Creatine Kinase < 20 L Creatine Kinase Index Creatinine Kinase MB (Mass) 0.35 Troponin I 0.271 *H Test 09/30/16 04:25 09/30/16 05:13 Anion Gap 17 H Basophils # 0.0 Basophils % 0.3 Blood Urea Nitrogen 53 H Calcium Level 8.9 Carbon Dioxide Level 23 Chloride Level 119 H Creatinine 1.51 H Eosinophils # 0.0 Eosinophils % 0.1 Glucose Level 130 # Hematocrit 30.4 L Hemoglobin 9.0 L Lymphocytes # 2.2 Lymphocytes % 14.7 L Mean Corpuscular Hemoglobin 26.6 L Mean Corpuscular Hemoglobin Concent 29.6 L Mean Corpuscular Volume 89.9 Mean Platelet Volume 11.8 H Monocytes # 0.8 Monocytes % 5.2 Neutrophils # 11.9 H Neutrophils % 79.2 H Nucleated Red Blood Cells # 0.0 Nucleated Red Blood Cells % 0.0 Platelet Count 297 Potassium Level 4.4 Red Blood Count 3.38 L Red Cell Distribution Width 17.4 H Sodium Level 155 H White Blood Count 15.0 H Bedside Glucose 135 Medications Medications Current Medications Ondansetron HCl (Zofran Inj) 4 mg Q6H PRN IV NAUSEA AND/OR VOMITING; Start 09/25 at 01:00 Acetaminophen (Tylenol Tab) 650 mg Q6H PRN PO PAIN LEVEL 1-3 OR FEVER; Start at 01:00 Acetaminophen/ Hydrocodone Bitart ([place] (5/325)) 1 tab Q6H PRN PO MODERATE PAIN LEVEL 4-6; Start 09/25/16 at 01:00 Morphine Sulfate (morphine) 2 mg Q4H PRN IV SEVERE PAIN LEVEL 7-10 Last administered on 09/29/16 11:26; Admin Dose 2 MG; Start 09/25/16 at 01:00 Docusate Sodium (Colace) 100 mg Q12H PRN PO CONSTIPATION; Start 09/25/16 at 01: 00 Heparin Sodium (Porcine) (Heparin (5000 Units/0.5 ml)) 5,000 unit Q12 SC Last administered on 09/30/16 09:39; Admin Dose 5,000 UNIT; Start 09/25/16 at 09:00 Lorazepam (Ativan) 0.5 mg Q6H PRN IV ANXIETY Last administered on 09/29/16 06: 55; Admin Dose 0.5 MG; Start 09/25/16 at 01:00 Hydralazine HCl (Apresoline) 10 mg Q6H PRN IV ELEVATED BLOOD PRESSURE; Start at 01:00 Nitroglycerin (Nitroglycerin (Sl Tab) 0.4 Mg) 1 tab Q5M PRN SL ANGINA; Start at 01:00 Aspirin (Ecotrin) 325 mg DAILY PO Last administered on 09/30/16 09:23; Admin Dose 325 MG; Start 09/25/16 at 09:00 Acetaminophen (Tylenol Tab) 650 mg Q4 PRN GTB ELEVATED TEMPERATURE Last administered on 09/30/16 09:27; Admin Dose 650 MG; Start 09/25/16 at 01:00 Atorvastatin Calcium (Lipitor) 20 mg QHS GTB Last administered on 09/29/16 21: 52; Admin Dose 20 MG; Start 09/25/16 at 21:00 Chlorhexidine Gluconate (Peridex) 15 ml Q12 MM Last administered on 09/30/16 09:23; Admin Dose 15 ML; Start 09/25/16 at 09:00 Digoxin (Digoxin) 0.125 mg DAILY@13 GTB Last administered on 09/29/16 13:32; Admin Dose 0.125 MG; Start 09/25/16 at 13:00 Multivitamins Therapeutic (Theragran) 1 tab DAILY GTB Last administered on 09/30 09:22; Admin Dose 1 TAB; Start 09/25/16 at 09:00 Fenofibrate (Tricor) 145 mg DAILY PO Last administered on 09/30/16 09:24; Admin Dose 145 MG; Start 09/25/16 at 09:00 Lansoprazole (Prevacid) 30 mg DAILY@06 GTB Last administered on 09/30/16 05:15 ; Admin Dose 30 MG; Start 09/25/16 at 06:00 Lactobacillus Acidoph/Bulgaricus (Floranex) 1 tab BID GTB Last administered on 09/30/16 09:22; Admin Dose 1 TAB; Start 09/25/16 at 09:00 Ascorbic Acid (Vitamin C) 500 mg DAILY PO Last administered on 09/30/16 09:24 ; Admin Dose 500 MG; Start 09/25/16 at 09:00 Ferrous Sulfate (Feosol Liquid Cup) 300 mg DAILY GTB Last administered on 09:19; Admin Dose 300 MG; Start 09/25/16 at 09:00 Insulin Aspart (Novolog Insulin Pen) NOVOLOG *MILD* ALGORI... Q6H SC Last administered on 09/29/16 05:45; Admin Dose 2 UNIT; Start 09/26/16 at 17:30 Miscellaneous Information 1 ea NOTE XX ; Start 09/26/16 at 17:30 Glucose (Glutose) 15 gm Q15M PRN PO DECREASED GLUCOSE; Start 09/26/16 at 17:30 Glucose (Glutose) 22.5 gm Q15M PRN PO DECREASED GLUCOSE; Start 09/26/16 at 17:30 Dextrose (D50w Syringe) 25 ml Q15M PRN IV DECREASED GLUCOSE; Start 09/26/16 at 17:30 Dextrose (D50w Syringe) 50 ml Q15M PRN IV DECREASED GLUCOSE; Start 09/26/16 at 17:30 Glucagon (Glucagen) 1 mg Q15M PRN IM DECREASED GLUCOSE; Start 09/26/16 at 17:30 Glucose (Glutose) 15 gm Q15M PRN BUCCAL DECREASED GLUCOSE; Start 09/26/16 at 17: 30 Collagenase (Santyl) 1 applic DAILY TOP Last administered on 09/30/16 09:26; Admin Dose 1 APPLIC; Start 09/27/16 at 11:30 Amiodarone HCl (Cordarone) 400 mg BID GTB Last administered on 09/30/16 09:20 ; Admin Dose 400 MG; Start 09/27/16 at 21:00 Levofloxacin (Levaquin) 750 mg DAILY@06 GTB Last administered on 09/30/16 05: 16; Admin Dose 750 MG; Start 09/28/16 at 06:00 Diltiazem HCl 60 mg 60 mg Q8 GTB Last administered on 09/29/16 21:53; Admin Dose 60 MG; Start 09/28/16 at 22:00 Ceftriaxone Sodium (Rocephin) 50 ml @ 100 mls/hr Q24H IVPB Last administered on 09/29/16 17:09; Admin Dose 100 MLS/HR; Start 09/28/16 at 15:30 Mupirocin (Bactroban) 1 applic BID TOP Last administered on 09/30/16t 09:26; Admin Dose 1 APPLIC; Start 09/28/16 at 21:00 JORGE ROBLES Sep 30, 2016 11:24
[2016-09-30] MEDS: DIGOXIN 0.125 MG TAB GTB SCH (15:14)
[2016-09-30] MEDS: CEFTRIAXONE 1 GM/50 ML (PMX) 50 ML IVPB SCH (15:15)
[2016-09-30] MEDS: ALBUTEROL/IPRATROPIUM (NEB) 3 ML AMP HHN PRN (20:46)
[2016-09-30] MEDS: ATORVASTATIN 20 MG TAB GTB SCH (20:52)
[2016-10-01] VITALS (13 sets, daily range): BP systolic 92–126; BP diastolic 55–60; PULSE 81–91; RESP 16–32
[2016-10-01] MEDS: INSULIN ASPART [NOVOLOG] 3 ML PEN SC SCH ×5 (00:01→23:42)
[2016-10-01] MEDS: DILTIAZEM 60 MG TAB GTB SCH ×3 (05:37→21:48)
[2016-10-01] MEDS: LEVOFLOXACIN 750 MG TABLET GTB SCH (05:38)
[2016-10-01] MEDS: LANSOPRAZOLE 30 MG CAP GTB SCH (05:38)
[2016-10-01] MEDS: LACTOBACILLUS CHEW TAB GTB SCH ×2 (08:22→21:02)
[2016-10-01] MEDS: AMIODARONE 200 MG TAB GTB SCH ×2 (08:22→21:02)
[2016-10-01] MEDS: CHLORHEXIDINE GLUCONATE 15 ML UD CUP MM SCH ×2 (08:22→21:02)
[2016-10-01] MEDS: FERROUS SULFATE 60 MG/ML 5ML CUP GTB SCH (08:22)
[2016-10-01] MEDS: ASPIRIN (EC) 325 MG TAB PO SCH (08:22)
[2016-10-01] MEDS: MULTIVITAMINS THERAPEUTIC TAB GTB SCH (08:22)
[2016-10-01] MEDS: ASCORBIC ACID 500 MG TAB PO SCH (08:23)
[2016-10-01] MEDS: FENOFIBRATE 145 MG TAB PO SCH (08:23)
[2016-10-01] MEDS: MUPIROCIN 2% 22 GM OINT TOP SCH ×2 (08:23→21:17)
[2016-10-01] MEDS: COLLAGENASE 30 GM TUBE TOP SCH (09:00)
[2016-10-01 09:03] LABS: ADD SCAN DIFF NO
[2016-10-01 09:05] LABS: ABNORMAL IP MESSAGE 1; BASOPHILS % 0.3 % (0.0-2.0); EOSINOPHILS # 0.1 10^3/ul (0.0-0.5); EOSINOPHILS % 1.4 % (0.0-7.0); HEMATOCRIT 30.2 % (42.0-52.0); HEMOGLOBIN 8.6 g/dl (14.0-18.0); LYMPHOCYTES # 1.9 10^3/ul (0.8-2.9); MEAN CORPUSCULAR HEMOGLOBIN 26.4 pg (29.0-33.0); MEAN CORPUSCULAR HGB CONC 28.5 g/dl (32.0-37.0); MEAN CORPUSCULAR VOLUME 92.6 fl (82.0-101.0); MEAN PLATELET VOLUME 11.6 fl (7.4-10.4); MONOCYTE # 0.7 10^3/ul (0.3-0.9); MONOCYTES % 6.6 % (0.0-11.0); NEUTROPHIL # 7.1 10^3/ul (1.6-7.5); NEUTROPHILS % 72.3 % (39.0-77.0); PLATELET COUNT 275 10^3/UL (140-415); RED BLOOD COUNT 3.26 10^6/ul (4.70-6.10); RED CELL DISTRIBUTION WIDTH 17.5 % (11.5-14.5); WHITE BLOOD COUNT 9.9 10^3/ul (4.8-10.8)
[2016-10-01] MEDS: HEPARIN 5,000 UNIT/0.5 ML SYG SC SCH ×2 (09:18→21:06)
[2016-10-01 09:29] LABS: POTASSIUM 4.3 mmol/L (3.5-5.1)
[2016-10-01 09:31] LABS: CREATININE 1.29 mg/dl (0.61-1.24)
[2016-10-01 09:32] LABS: CALCIUM 8.8 mg/dl (8.4-10.2)
--- NOTE | 2016-10-01 12:31 | PN ---
Date/Time of Note Date/Time of Note DATE: 10/01/16 TIME: 12:29 Assessment/Plan VTE Prophylaxis VTE Prophylaxis Intervention: LMWH Lines/Catheters [facility] Type (from [facility] Peripheral IV Urinary Cath still in place: Yes Reason Cath still needed: other (indicate) Assessment/Plan Chief Complaint/Hosp Course ASSESSMENT AND PLAN: 1. atrial fibrillation with rapid ventricular response , rate controlled, on Cardizem and amiodarone, cardiology has been consulted 2. Chest pressure and shortness of breath secondary to atrial fibrillation with rapid ventricular response. Continue p.o. digoxin 3. History of coronary artery disease. With elevated troponins which has trend down likely secondary to A. fib with RVR. Continue aspirin. Cardiology following 4. NSTEMI versus demand ischemia. cardiology consult. Continue high dose Lipitor and aspirin. Morphine, oxygen, nitrates p.r.n. 5. History of prior stroke. Continue medical management 6. History of essential hypertension. Continue current medications. 7. 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 continue breathing treatment and vent management, pulmonary consult. Continue DuoNebs p.r.n. 8. Urinary tract infection, continue Levaquin and Rocephin 9. Pulmonary edema, start patient on Lasix, 9. Gastrointestinal prophylaxis. Prevacid. 10. Deep venous thrombosis prophylaxis. Heparin subQ. We will continue monitor patient closely for recommendation management treatment as clinical course Transfer to telemetry floor Problems: Subjective 24 Hr Interval Summary Free Text/Dictation No acute changes Patient tolerating PEG tube feeding He is more alert than yesterday Exam/Review of Systems Vital Signs Vitals Vital Signs Date Time Temp Pulse Resp B/P Pulse Ox O2 Delivery O2 Flow Rate FiO2 10/01/16 12:22 85 10/01/16 12:02 18 92/55 99 Mechanical Ventilator 10/01/16 11:47 98.4 10/01/16 09:40 5.0 28 Intake and Output 09/30/16 09/30/16 10/01/16 15:00 23:00 07:00 Intake Total 670 ml 195 ml 1015 ml Output Total 540 ml 220 ml 450 ml Balance 130 ml -25 ml 565 ml Exam General: The patient is bedridden, Not in acute distress. HEENT: Atraumatic, normocephalic. The pupils are equal and round . Neck: Trach in place Chest: Normal expansion of the thorax during inspiration Lungs: Decreased breath sounds bilateral lower lung field Heart: Normal S1-S2, Regular rhythm and rate. Abdomen: Soft , nontender, nondistended , bowel sounds are present. PEG tube in place Extremities: Normal to inspection, no edema no cyanosis Neurologic: The patient is awake, alert Results Result Diagram: 10/01/16 0830 10/01/16 0830 Results 24 hrs Laboratory Tests Test 09/30/16 12:56 09/30/16 17:32 09/30/16 23:52 10/01/16 05:32 Bedside Glucose 154 181 187 181 Test 10/01/16 08:30 Anion Gap 17 H Basophils # 0.0 Basophils % 0.3 Blood Urea Nitrogen 58 H Calcium Level 8.8 Carbon Dioxide Level 25 Chloride Level 116 H Creatinine 1.29 H Eosinophils # 0.1 Eosinophils % 1.4 Glucose Level 153 Hematocrit 30.2 L Hemoglobin 8.6 L Lymphocytes # 1.9 Lymphocytes % 19.0 Mean Corpuscular Hemoglobin 26.4 L Mean Corpuscular Hemoglobin Concent 28.5 L Mean Corpuscular Volume 92.6 Mean Platelet Volume 11.6 H Monocytes # 0.7 Monocytes % 6.6 Neutrophils # 7.1 Neutrophils % 72.3 Nucleated Red Blood Cells # 0.0 Nucleated Red Blood Cells % 0.0 Platelet Count 275 Potassium Level 4.3 Red Blood Count 3.26 L Red Cell Distribution Width 17.5 H Sodium Level 154 H White Blood Count 9.9 # Medications Medications Current Medications Ondansetron HCl (Zofran Inj) 4 mg Q6H PRN IV NAUSEA AND/OR VOMITING; Start 09/25 at 01:00 Acetaminophen (Tylenol Tab) 650 mg Q6H PRN PO PAIN LEVEL 1-3 OR FEVER; Start at 01:00 Acetaminophen/ Hydrocodone Bitart ([place] (5/325)) 1 tab Q6H PRN PO MODERATE PAIN LEVEL 4-6; Start 09/25/16 at 01:00 Morphine Sulfate (morphine) 2 mg Q4H PRN IV SEVERE PAIN LEVEL 7-10 Last administered on 09/29/16t 11:26; Admin Dose 2 MG; Start 09/25/16 at 01:00 Docusate Sodium (Colace) 100 mg Q12H PRN PO CONSTIPATION; Start 09/25/16 at 01: 00 Heparin Sodium (Porcine) (Heparin (5000 Units/0.5 ml)) 5,000 unit Q12 SC Last administered on 10/01/16 09:18; Admin Dose 5,000 UNIT; Start 09/25/16 at 09:00 Lorazepam (Ativan) 0.5 mg Q6H PRN IV ANXIETY Last administered on 09/29/16 06: 55; Admin Dose 0.5 MG; Start 09/25/16 at 01:00 Hydralazine HCl (Apresoline) 10 mg Q6H PRN IV ELEVATED BLOOD PRESSURE; Start at 01:00 Nitroglycerin (Nitroglycerin (Sl Tab) 0.4 Mg) 1 tab Q5M PRN SL ANGINA; Start at 01:00 Aspirin (Ecotrin) 325 mg DAILY PO Last administered on 10/01/16 08:22; Admin Dose 325 MG; Start 09/25/16 at 09:00 Acetaminophen (Tylenol Tab) 650 mg Q4 PRN GTB ELEVATED TEMPERATURE Last administered on 09/30/16 09:27; Admin Dose 650 MG; Start 09/25/16 at 01:00 Atorvastatin Calcium (Lipitor) 20 mg QHS GTB Last administered on 09/30/16 20: 52; Admin Dose 20 MG; Start 09/25/16 at 21:00 Chlorhexidine Gluconate (Peridex) 15 ml Q12 MM Last administered on 10/01/16 08:22; Admin Dose 15 ML; Start 09/25/16 at 09:00 Digoxin (Digoxin) 0.125 mg DAILY@13 GTB Last administered on 09/30/16 15:14; Admin Dose 0.125 MG; Start 09/25/16 at 13:00 Multivitamins Therapeutic (Theragran) 1 tab DAILY GTB Last administered on 10/01 08:22; Admin Dose 1 TAB; Start 09/25/16 at 09:00 Fenofibrate (Tricor) 145 mg DAILY PO Last administered on 10/01/16 08:23; Admin Dose 145 MG; Start 09/25/16 at 09:00 Lansoprazole (Prevacid) 30 mg DAILY@06 GTB Last administered on 10/01/16 05:38 ; Admin Dose 30 MG; Start 09/25/16 at 06:00 Lactobacillus Acidoph/Bulgaricus (Floranex) 1 tab BID GTB Last administered on 10/01/16 08:22; Admin Dose 1 TAB; Start 09/25/16 at 09:00 Ascorbic Acid (Vitamin C) 500 mg DAILY PO Last administered on 10/01/16 08:23 ; Admin Dose 500 MG; Start 09/25/16 at 09:00 Ferrous Sulfate (Feosol Liquid Cup) 300 mg DAILY GTB Last administered on 08:22; Admin Dose 300 MG; Start 09/25/16 at 09:00 Insulin Aspart (Novolog Insulin Pen) NOVOLOG *MILD* ALGORI... Q6H SC Last administered on 10/01/16 12:21; Admin Dose 1 UNIT; Start 09/26/16 at 17:30 Miscellaneous Information 1 ea NOTE XX ; Start 09/26/16 at 17:30 Glucose (Glutose) 15 gm Q15M PRN PO DECREASED GLUCOSE; Start 09/26/16 at 17:30 Glucose (Glutose) 22.5 gm Q15M PRN PO DECREASED GLUCOSE; Start 09/26/16 at 17:30 Dextrose (D50w Syringe) 25 ml Q15M PRN IV DECREASED GLUCOSE; Start 09/26/16 at 17:30 Dextrose (D50w Syringe) 50 ml Q15M PRN IV DECREASED GLUCOSE; Start 09/26/16 at 17:30 Glucagon (Glucagen) 1 mg Q15M PRN IM DECREASED GLUCOSE; Start 09/26/16 at 17:30 Glucose (Glutose) 15 gm Q15M PRN BUCCAL DECREASED GLUCOSE; Start 09/26/16 at 17: 30 Collagenase (Santyl) 1 applic DAILY TOP Last administered on 09/30/16 09:26; Admin Dose 1 APPLIC; Start 09/27/16 at 11:30 Amiodarone HCl (Cordarone) 400 mg BID GTB Last administered on 10/01/16 08:22 ; Admin Dose 400 MG; Start 09/27/16 at 21:00 Levofloxacin (Levaquin) 750 mg DAILY@06 GTB Last administered on 10/01/16 05: 38; Admin Dose 750 MG; Start 09/28/16 at 06:00 Diltiazem HCl 60 mg 60 mg Q8 GTB Last administered on 10/01/16 05:37; Admin Dose 60 MG; Start 09/28/16 at 22:00 Ceftriaxone Sodium (Rocephin) 50 ml @ 100 mls/hr Q24H IVPB Last administered on 09/30/16 15:15; Admin Dose 100 MLS/HR; Start 09/28/16 at 15:30 Mupirocin (Bactroban) 1 applic BID TOP Last administered on 10/01/16 08:23; Admin Dose 1 APPLIC; Start 09/28/16 at 21:00 DILIP ARELLANO MD Oct 01, 2016 12:31
[2016-10-01] MEDS: DIGOXIN 0.125 MG TAB GTB SCH (13:55)
[2016-10-01] MEDS: FUROSEMIDE 20 MG INJ IV SCH ×2 (13:55→17:39)
--- NOTE | 2016-10-01 14:31 | PN ---
DATE: 09/30/2016 CARDIOLOGY FOLLOWUP SUBJECTIVE: The patient remains in atrial fibrillation. Heart rate remained stable. Discussed wit h the staff. Rhythm strip reviewed. The patient is still on the vent. MEDICATIONS: Reviewed. PHYSICAL EXAMINATION: VITAL SIGNS: Temperature 99.8, heart rate of 67, blood pressure 103/58, respiratory rate of 22. HEENT: Normocephalic, atraumatic. CARDIOVASCULAR: Irregularly irregular. PULMONARY: Anteriorly with mild rhonchi, diffuse. GASTROINTESTINAL: Soft, nontender. EXTREMITIES: With trivial edema. NEUROLOGIC: Opens his eyes, does not answer my questions. LABORATORY DATA: WBC of 15, hemoglobin 9, platelets 297. Sodium 155, potassium 4.4, BUN of 53, cre atinine 1.5, glucose of 130. ASSESSMENT AND PLAN: 1. Atrial fibrillation. 2. Hypoxemic respiratory failure. 3. Status post tracheostomy, on the vent 4. History of cerebrovascular accident. 5. Renal insufficiency. 6. History of coronary artery disease. 7. History of urinary tract infection. RECOMMENDATIONS: We will continue the current cardiac care. Heart rate control will be continued, off Cardizem drip. Vent support will be continued. Continue with ICU care. Dictated By: BOY FIERRO/GENOVEVA Conf#: [id number] DID#: [id number] CC: ;*EndCC*
[2016-10-01] MEDS: CEFTRIAXONE 1 GM/50 ML (PMX) 50 ML IVPB SCH (15:49)
[2016-10-01] MEDS: ALBUTEROL/IPRATROPIUM (NEB) 3 ML AMP HHN PRN (17:28)
[2016-10-01] MEDS: ATORVASTATIN 20 MG TAB GTB SCH (21:03)
[2016-10-02] VITALS (9 sets, daily range): BP systolic 120–135; BP diastolic 51–71; PULSE 80–88; RESP 18–19
[2016-10-02] MEDS: INSULIN ASPART [NOVOLOG] 3 ML PEN SC SCH ×2 (05:40→11:22)
[2016-10-02] MEDS: FUROSEMIDE 20 MG INJ IV SCH (05:41)
[2016-10-02] MEDS: LANSOPRAZOLE 30 MG CAP GTB SCH (05:41)
[2016-10-02] MEDS: LEVOFLOXACIN 750 MG TABLET GTB SCH (05:41)
[2016-10-02] MEDS: DILTIAZEM 60 MG TAB GTB SCH ×2 (05:49→13:18)
--- NOTE | 2016-10-02 07:21 | PN ---
DATE: 10/01/2016 CARDIOLOGY FOLLOWUP SUBJECTIVE: Discussed with the staff. Rhythm strip was reviewed. The patient remains in sinus rhy thm. No more episodes of atrial fibrillation. The patient denies any chest pain or pressure or pal pitations to me. Status post trach, on oxygen, now has been transferred out of ICU. MEDICATIONS: Reviewed. PHYSICAL EXAMINATION: VITAL SIGNS: Temperature 98, heart rate of 80, blood pressure 112/59, respiration rate of 17, satur ating 96%. HEENT: Normocephalic, atraumatic. status post tracheostomy, on oxygen. CARDIOVASCULAR: Regular rate and rhythm. PULMONARY: With mild rhonchi, diffuse. GASTROINTESTINAL: Soft, nontender. EXTREMITIES: With trivial edema. NEUROLOGIC: Opens his eyes, responds appropriately. PSYCHOLOGIC: Appears to be calm. ASSESSMENT AND PLAN: 1. Paroxysmal atrial fibrillation, currently in sinus. 2. Hypoxemic respiratory failure status post tracheostomy, vent dependent. 3. History of cerebrovascular accident. 4. Systemic inflammatory response syndrome. RECOMMENDATIONS: Respiratory care will be continued and managed as per pulmonary. We will continue to monitor on telemetry. Heart rate remains stable on the current regimen. Cardizem will be contin ued. Thank you, . , will resume the care tomorrow. Dictated By: BOY RANDOLPH MD AV/GENOVEVA Conf#: [id number] DID#: [id number] CC: DILIP ARELLANO MD;*End*
[2016-10-02 07:42] LABS: ADD SCAN DIFF NO
[2016-10-02 07:49] LABS: BASOPHIL # 0.1 10^3/ul (0.0-0.1); BASOPHILS % 0.4 % (0.0-2.0); EOSINOPHILS # 0.2 10^3/ul (0.0-0.5); EOSINOPHILS % 1.9 % (0.0-7.0); HEMATOCRIT 33.2 % (42.0-52.0); HEMOGLOBIN 9.8 g/dl (14.0-18.0); LYMPHOCYTES # 1.8 10^3/ul (0.8-2.9); LYMPHOCYTES % 14.4 % (15.0-51.0); MEAN CORPUSCULAR HEMOGLOBIN 26.8 pg (29.0-33.0); MEAN CORPUSCULAR HGB CONC 29.5 g/dl (32.0-37.0); MEAN CORPUSCULAR VOLUME 90.7 fl (82.0-101.0); MEAN PLATELET VOLUME 11.3 fl (7.4-10.4); MONOCYTE # 0.7 10^3/ul (0.3-0.9); MONOCYTES % 5.8 % (0.0-11.0); NEUTROPHIL # 9.5 10^3/ul (1.6-7.5); NEUTROPHILS % 76.9 % (39.0-77.0); NUCLEATED RED BLOOD CELLS% 0.2 /100WBC (0.0-0.0); PLATELET COUNT 277 10^3/UL (140-415); RED BLOOD COUNT 3.66 10^6/ul (4.70-6.10); RED CELL DISTRIBUTION WIDTH 17.2 % (11.5-14.5); WHITE BLOOD COUNT 12.4 10^3/ul (4.8-10.8)
[2016-10-02 08:21] LABS: CALCIUM 8.8 mg/dl (8.4-10.2); CREATININE 1.22 mg/dl (0.61-1.24)
[2016-10-02] MEDS: AMIODARONE 200 MG TAB GTB SCH (08:22)
[2016-10-02] MEDS: CHLORHEXIDINE GLUCONATE 15 ML UD CUP MM SCH (08:23)
[2016-10-02] MEDS: MULTIVITAMINS THERAPEUTIC TAB GTB SCH (08:23)
[2016-10-02] MEDS: LACTOBACILLUS CHEW TAB GTB SCH (08:23)
[2016-10-02] MEDS: ASPIRIN (EC) 325 MG TAB PO SCH (08:23)
[2016-10-02] MEDS: ASCORBIC ACID 500 MG TAB PO SCH (08:23)
[2016-10-02] MEDS: FENOFIBRATE 145 MG TAB PO SCH (08:23)
[2016-10-02] MEDS: FERROUS SULFATE 60 MG/ML 5ML CUP GTB SCH (08:23)
[2016-10-02] MEDS: MUPIROCIN 2% 22 GM OINT TOP SCH (08:24)
[2016-10-02] MEDS: COLLAGENASE 30 GM TUBE TOP SCH (08:25)
[2016-10-02] MEDS: HEPARIN 5,000 UNIT/0.5 ML SYG SC SCH (09:21)
[2016-10-02] MEDS: ALBUTEROL/IPRATROPIUM (NEB) 3 ML AMP HHN PRN (09:57)
--- NOTE | 2016-10-02 11:37 | PDOCDIS ---
Discharge Instructions CONDITION Patient Condition: Fair HOME CARE INSTRUCTIONS: Special Diet: PEG tube feeding ACTIVITY: Activity Restrictions: Special Program FOLLOW UP/APPOINTMENTS Appointments Follow up with Pulmonary and Cardiology as out-pt DILIP ARELLANO MD Oct 02, 2016 11:37
[2016-10-02] MEDS ORDERED: ASPI325T32 PO (11:48)
[2016-10-02] MEDS ORDERED: DIGO125T GTB (11:48)
[2016-10-02] MEDS ORDERED: DILT60TA29 GTB (11:48)
[2016-10-02] MEDS ORDERED: SAN30GM TOP (11:48)
[2016-10-02] MEDS ORDERED: AMIO200T2 GTB (11:48)
[2016-10-02] MEDS ORDERED: LEVO750T25 GTB (11:48)
[2016-10-02] MEDS: DIGOXIN 0.125 MG TAB GTB SCH (13:18)
--- NOTE | 2016-10-02 13:20 | PN ---
DATE: 10/02/2016 SUBJECTIVE: Patient Jaison is stable this morning. No shortness of breath, no hypoxemia, hypoxi a, moderate well-controlled secretions. PHYSICAL EXAMINATION: VITAL SIGNS: Temperature 98, pulse is 88, blood pressure 132/64, O2 saturation 96% on 5 liters cool aerosol. NECK: Supple. No JVD or lymphadenopathy. CARDIAC: S1, S2, no added sounds or murmurs. LUNGS: Clear to auscultation bilaterally. ABDOMEN: Soft, nontender. No guarding or rebound. EXTREMITIES: No cyanosis, clubbing, edema. NEUROLOGIC: Generalized weakness. LABORATORY DATA: White count 12.4, hemoglobin 9.8, platelets 277. BUN 59, creatinine 1.22. IMPRESSION AND PLAN: 1. Chronic hypoxemic respiratory failure, currently stable. 2. History of encephalopathy. 3. History of atrial fibrillation. 4. Non-ST elevation myocardial infarction. PLAN: 1. Continue pulmonary toilet. 2. Tube feeding. 3. Agree with discharge planning. 4 Have patient followup as scheduled. Dictated By: MUNIR JAMES/GENOVEVA Conf#: [id number] DID#: [id number]
--- NOTE | 2016-10-02 14:26 | DS ---
DATE OF ADMISSION: 09/25/2016 DATE OF DISCHARGE: 10/02/2016 CONSULTANTS: 1. Dr. Ervin Ceja 2. 3. Dr. Toro Maddox PROCEDURES: None. DISCHARGE DIAGNOSES: 1. Atrial fibrillation with rapid ventricular response, rate controlled on Cardizem and amiodarone. 2. Ventilator-dependent respiratory failure with tracheostomy. Continue breathing treatment. 3. Urinary tract infection, on Levaquin and Rocephin. 4. Pulmonary edema, on Lasix. 5. GERD. Continue Prevacid. 6. Essential hypertension, well controlled on medical management. 7. History of cerebrovascular accident. Continue aspirin and statin and blood pressure monitoring. 8. History of coronary artery disease, continue aggressive medical management. 9. Non-ST myocardial infarction versus demand ischemia. Cardiology was consulted. Continue Lipito r, aspirin. 10. Anxiety. Continue on lorazepam. MEDICATIONS: 1. Tylenol. 2. DuoNeb. 3. Amiodarone. 4. Vitamin C. 5. Aspirin. 6. Lipitor. 7. Rocephin x7 days. 8. Santyl. 9. Digoxin. 10. Cardizem. 11. Colace. 12. Milk of magnesia. 13. Fleet enema. 14. Tricor. 15. Ferrous sulfate. 16. [place]. 17. Insulin sliding scale. 18. 19. Prevacid. 20. Levaquin. 21. Multivitamin. 22. Bactroban x3 days. 23 Nitroglycerin. 24. Uristat liquid. 25. Lasix 20 mg G-tube b.i.d. x30 days mEq daily. 26. Free water 100 mL G-tube q.6h. 27. Isosource 45 mL per hour. 28. Lorazepam 1 mg PEG-tube q.6h. p.r.n. ALLERGIES: NO KNOWN DRUG ALLERGIES. HOSPITAL COURSE: This is an unfortunate 76-year-old gentleman with past medical history of atrial f ibrillation, coronary artery disease, COPD, respiratory failure, status post tracheostomy, hypertens ion, CVA, bed bound, dependent on others for his daily activity who resides at [facility], was transferred from [facility] to [facility] secondary to havi shortness of breath and was found to be tachycardic. The patient also complained of chest pressu re. The chest pain lasted about 10 minutes, was likely secondary to the palpitation. Upon arrival to ER, patient was found to have atrial fibrillation, uncontrolled 140 to 150s, with RVR, started on Cardizem drip and was admitted to ICU. Cardiology was consulted. The patient was also found to lopez ve pneumonia and left basilar segmental atelectasis. Was started on broad spectrum antibiotic, pulm onology was consulted. Patient was eventually transferred to telemetry floor, although was found to have respiratory depression and mucous plugging and rapid response was called and was transferred t o ICU, which he was found to be stable. He was transferred back to telemetry floor. He was continu ed on aggressive IV antibiotics, pain medication, PEG tube feeding which has been continued. The magali brandon's atrial fibrillation has been well controlled on Cardizem, amiodarone and for anti-coagulatio n has been placed on aspirin as per Cardiology. Today, the patient's vitals are stable with temperature 98.2, pulse 64, respiration 18, blood pressu re 132/64, saturation 95% on FIO2 of 28% on vent. LABORATORIES: WBC 12.4, hemoglobin 9.8, hematocrit 32.2, platelet 277. Sodium 153, potassium 4.0, chloride 111, bicarbonate 27, BUN 59, creatinine 1.22, glucose 138, calcium 8.8. The patient has be en started on free water for his hypernatremia and acute renal insufficiency, which has been actuall y improving for the past 2 days since his admission. CONDITION AT TIME OF DISCHARGE: Fair. The patient has been cleared from director of customer acquisition standpoint f or discharge. Dictated By: DILIP MITCHELL/NTS Conf#: [id number] DID#: [id number]
[2016-10-02] MEDS: CEFTRIAXONE 1 GM/50 ML (PMX) 50 ML IVPB SCH (15:30)
--- NOTE | 2016-10-02 15:32 | CONS ---
Date/Time of Note Date/Time of Note DATE: 10/02/16 TIME: 15:28 Assessment/Plan Assessment/Plan Additional Assessment/Plan SIRS Paroxysmal atrial fibrillation/flutter Paroxysmal supraventricular tachycardia Preserved ejection fraction Respiratory failure status post tracheostomy History of CVA -Patient in sinus rhythm, decrease amiodarone 200 mg twice a day, and slowly titrate down over the next few weeks if patient remains in sinus rhythm. Continue calcium channel fox as heart rate and blood pressure permits. Consultation Date/Type/Reason Admit Date/Time Sep 25, 2016 at 06:58 Initial Consult Date 09/26/16 Type of Consultation: cv 24 HR Interval Summary Free Text/Dictation Patient seen and examined. Denies shortness of breath, palpitations or chest pain Exam/Review of Systems Vital Signs Vitals Vital Signs Date Time Temp Pulse Resp B/P Pulse Ox O2 Delivery O2 Flow Rate FiO2 10/02/16 12:27 88 10/02/16 11:21 98.2 18 132/64 95 10/02/16 09:57 Aerosol 5.0 28 T Tube Intake and Output 10/01/16 10/01/16 10/02/16 15:00 23:00 07:00 Intake Total 1080 ml 950 ml Output Total 1050 ml 1500 ml Balance 30 ml -550 ml Exam Follows commands, no apparent distress Constitutional: alert Head: normocephalic Neck: other (Tracheostomy) Respiratory: other (Coarse breath sounds bilaterally, no wheezing) Cardiovascular: other (S1-S2 heard), regular rate and rhythm Gastrointestinal: bowel sounds, non-tender, other (No guarding), soft Extremities: other (Trace lower extremity edema, no cyanosis) Results Result Diagram: 10/02/16 0735 10/02/16 0735 Results 24 hrs Laboratory Tests Test 10/01/16 17:10 10/01/16 23:37 10/02/16 05:37 10/02/16 07:35 Bedside Glucose 155 183 164 Anion Gap 19 H Basophils # 0.1 Basophils % 0.4 Blood Urea Nitrogen 59 H Calcium Level 8.8 Carbon Dioxide Level 27 Chloride Level 111 H Creatinine 1.22 Eosinophils # 0.2 Eosinophils % 1.9 Glucose Level 138 Hematocrit 33.2 L Hemoglobin 9.8 L Lymphocytes # 1.8 Lymphocytes % 14.4 L Mean Corpuscular Hemoglobin 26.8 L Mean Corpuscular Hemoglobin Concent 29.5 L Mean Corpuscular Volume 90.7 Mean Platelet Volume 11.3 H Monocytes # 0.7 Monocytes % 5.8 Neutrophils # 9.5 H Neutrophils % 76.9 Nucleated Red Blood Cells # 0.0 Nucleated Red Blood Cells % 0.2 H Platelet Count 277 Potassium Level 4.0 Red Blood Count 3.66 L Red Cell Distribution Width 17.2 H Sodium Level 153 H White Blood Count 12.4 #H Test 10/02/16 11:18 Bedside Glucose 126 Medications Medications Current Medications Ondansetron HCl (Zofran Inj) 4 mg Q6H PRN IV NAUSEA AND/OR VOMITING; Start 09/25 at 01:00 Acetaminophen (Tylenol Tab) 650 mg Q6H PRN PO PAIN LEVEL 1-3 OR FEVER; Start at 01:00 Acetaminophen/ Hydrocodone Bitart ([place] (5/325)) 1 tab Q6H PRN PO MODERATE PAIN LEVEL 4-6; Start 09/25/16 at 01:00 Morphine Sulfate (morphine) 2 mg Q4H PRN IV SEVERE PAIN LEVEL 7-10 Last administered on 09/29/16 11:26; Admin Dose 2 MG; Start 09/25/16 at 01:00 Docusate Sodium (Colace) 100 mg Q12H PRN PO CONSTIPATION; Start 09/25/16 at 01: 00 Heparin Sodium (Porcine) (Heparin (5000 Units/0.5 ml)) 5,000 unit Q12 SC Last administered on 10/02/16 09:21; Admin Dose 5,000 UNIT; Start 09/25/16 at 09:00 Lorazepam (Ativan) 0.5 mg Q6H PRN IV ANXIETY Last administered on 09/29/16 06: 55; Admin Dose 0.5 MG; Start 09/25/16 at 01:00 Hydralazine HCl (Apresoline) 10 mg Q6H PRN IV ELEVATED BLOOD PRESSURE; Start at 01:00 Nitroglycerin (Nitroglycerin (Sl Tab) 0.4 Mg) 1 tab Q5M PRN SL ANGINA; Start at 01:00 Aspirin (Ecotrin) 325 mg DAILY PO Last administered on 10/02/16 08:23; Admin Dose 325 MG; Start 09/25/16 at 09:00 Acetaminophen (Tylenol Tab) 650 mg Q4 PRN GTB ELEVATED TEMPERATURE Last administered on 09/30/16 09:27; Admin Dose 650 MG; Start 09/25/16 at 01:00 Atorvastatin Calcium (Lipitor) 20 mg QHS GTB Last administered on 10/01/16 21: 03; Admin Dose 20 MG; Start 09/25/16 at 21:00 Chlorhexidine Gluconate (Peridex) 15 ml Q12 MM Last administered on 10/02/16 08:23; Admin Dose 15 ML; Start 09/25/16 at 09:00 Digoxin (Digoxin) 0.125 mg DAILY@13 GTB Last administered on 10/02/16 13:18; Admin Dose 0.125 MG; Start 09/25/16 at 13:00 Multivitamins Therapeutic (Theragran) 1 tab DAILY GTB Last administered on 10/02 08:23; Admin Dose 1 TAB; Start 09/25/16 at 09:00 Fenofibrate (Tricor) 145 mg DAILY PO Last administered on 10/02/16 08:23; Admin Dose 145 MG; Start 09/25/16 at 09:00 Lansoprazole (Prevacid) 30 mg DAILY@06 GTB Last administered on 10/02/16 05:41 ; Admin Dose 30 MG; Start 09/25/16 at 06:00 Lactobacillus Acidoph/[place] (Floranex) 1 tab BID GTB Last administered on 10/02/16 08:23; Admin Dose 1 TAB; Start 09/25/16 at 09:00 Ascorbic Acid (Vitamin C) 500 mg DAILY PO Last administered on 10/02/16 08:23 ; Admin Dose 500 MG; Start 09/25/16 at 09:00 Ferrous Sulfate (Feosol Liquid Cup) 300 mg DAILY GTB Last administered on 08:23; Admin Dose 300 MG; Start 09/25/16 at 09:00 Insulin Aspart (Novolog Insulin Pen) NOVOLOG *MILD* ALGORI... Q6H SC Last administered on 10/02/16 05:40; Admin Dose 1 UNIT; Start 09/26/16 at 17:30 Miscellaneous Information 1 ea NOTE XX ; Start 09/26/16 at 17:30 Glucose (Glutose) 15 gm Q15M PRN PO DECREASED GLUCOSE; Start 09/26/16 at 17:30 Glucose (Glutose) 22.5 gm Q15M PRN PO DECREASED GLUCOSE; Start 09/26/16 at 17:30 Dextrose (D50w Syringe) 25 ml Q15M PRN IV DECREASED GLUCOSE; Start 09/26/16 at 17:30 Dextrose (D50w Syringe) 50 ml Q15M PRN IV DECREASED GLUCOSE; Start 09/26/16 at 17:30 Glucagon (Glucagen) 1 mg Q15M PRN IM DECREASED GLUCOSE; Start 09/26/16 at 17:30 Glucose (Glutose) 15 gm Q15M PRN BUCCAL DECREASED GLUCOSE; Start 09/26/16 at 17: 30 Collagenase (Santyl) 1 applic DAILY TOP Last administered on 10/02/16 08:25; Admin Dose 1 APPLIC; Start 09/27/16 at 11:30 Amiodarone HCl (Cordarone) 400 mg BID GTB Last administered on 10/02/16 08:22 ; Admin Dose 400 MG; Start 09/27/16 at 21:00 Levofloxacin (Levaquin) 750 mg DAILY@06 GTB Last administered on 10/02/16 05: 41; Admin Dose 750 MG; Start 09/28/16 at 06:00 Diltiazem HCl 60 mg 60 mg Q8 GTB Last administered on 10/02/16 13:18; Admin Dose 60 MG; Start 09/28/16 at 22:00 Ceftriaxone Sodium (Rocephin) 50 ml @ 100 mls/hr Q24H IVPB Last administered on 10/01/16 15:49; Admin Dose 100 MLS/HR; Start 09/28/16 at 15:30 Mupirocin (Bactroban) 1 applic BID TOP Last administered on 10/02/16 08:24; Admin Dose 1 APPLIC; Start 09/28/16 at 21:00 Ervin Ceja DO Oct 02, 2016 15:31
[2016-10-02] MEDS ORDERED: AMIODARONE 200 MG TAB GTB SCH ×2 (16:00→21:00)
== END 2016-10-02 15:35 | DRG 280 ==
LOC: E/R 21:38 → ICU 09-25 06:58 → UNDOADMIN 09-26 07:55 → ICU 09-26 07:55 → MS4 09-26 23:32 → ICU 09-29 07:35 → TEL 09-30 19:58
PROVIDERS: ADMIT Hospitalist; ATTEND Hospitalist
PROC: 5A1945Z Respiratory Ventilation, 24-96 Consecutive Hours (ICD-10-PCS; principal; 2016-09-25)
DX: I48.0 Paroxysmal atrial fibrillation (principal); I21.4 Non-ST elevation (NSTEMI) myocardial infarction; J18.9 Pneumonia, unspecified organism; J81.1 Chronic pulmonary edema; E87.0 Hyperosmolality and hypernatremia; J96.10 Chronic respiratory failure, unspecified whether with hypoxia or hypercapnia; T17.890A Other foreign object in other parts of respiratory tract causing asphyxiation, initial encounter; F03.90 Unspecified dementia, unspecified severity, without behavioral disturbance, psychotic disturbance, mood disturbance, and anxiety; R65.10 Systemic inflammatory response syndrome (SIRS) of non-infectious origin without acute organ dysfunction; N39.0 Urinary tract infection, site not specified; I24.8 Other forms of acute ischemic heart disease; J98.11 Atelectasis; Z93.0 Tracheostomy status; I25.10 Atherosclerotic heart disease of native coronary artery without angina pectoris; J44.9 Chronic obstructive pulmonary disease, unspecified; I10 Essential (primary) hypertension; I47.1 Supraventricular tachycardia; X58.XXXA Exposure to other specified factors, initial encounter; Y92.230 Patient room in hospital as the place of occurrence of the external cause; K21.9 Gastro-esophageal reflux disease without esophagitis; F41.9 Anxiety disorder, unspecified; N28.9 Disorder of kidney and ureter, unspecified; Z86.73 Personal history of transient ischemic attack (TIA), and cerebral infarction without residual deficits; Z74.01 Bed confinement status; Z93.1 Gastrostomy status
CPT/HCPCS: 36600; 71010; 80048; 80053; 80061; 82550; 82553; 82803; 82962; 83036; 83735; 83880; 84100; 84134; 84439; 84443; 84484; 85025; 85378; 85610; 85730; 87081; 93005; 94002; 94003; 94640; 94664; 94770; J1940; J0282; J0696; J1815; J1956; J2060; J2270; J3480; J7030; J7040

== ENCOUNTER 2016-10-25 07:21 | Inpatient (IN) | payer OTHER, MEDICARE ==
[2016-10-25] VITALS (10 sets, daily range): BP systolic 81–91; BP diastolic 44–49; PULSE 74–86; RESP 14–21; TEMP 98.4
[~2016-10-25] VITALS: Ht 167.6 cm; Wt 73.0 kg
[~2016-10-25 07:21] MED LIST changes: -ACET-141 GTB; +AMIO200T2 GTB; +ASPI325T32 PO; -BISA10SU55 RC; +DIGO125T GTB; -DIGO125T6 GTB; -DILT120C77 GTB; +DILT60TA29 GTB; -DOXA4TAB3 GTB; -GLUC1VIA7 IM; +LEVO750T25 GTB; -METR500T GTB; +SAN30GM TOP
[2016-10-25] MEDS ORDERED: CEFEPIME 2GM/50 ML (PMX) 50 ML IVPB STA (07:34)
[2016-10-25] MEDS ORDERED: SODIUM CHLORIDE 0.9% 1L BAG IV* STA ×2 (07:34→11:47)
[2016-10-25] MEDS ORDERED: ACETAMINOPHEN 650MG/20.3ML CUP NGT STA (07:34)
--- NOTE | 2016-10-25 07:39 | ERA ---
ER Documentation Chief Complaint Date/Time DATE: 10/25/16 TIME: 07:38 Chief Complaint LO BP PER STAFF THIS MORNING. NO NEURO DEF. BASELINE MENTAL STATUS. FEVER HPI History is limited due to the patient's cognitive impairment and clinical condition and is obtained entirely from transferring paramedics and review a [facility] records and supplemented by private medical records. 76-year-old male history of CVA, diabetes mellitus type 2, or COPD, respiratory failure status post tracheostomy, dysphasia status post PEG tube placement, hypertension, peptic ulcer disease, BPH and ASHD brought to the ED via rescue ambulance from [facility] for evaluation of hypotension. He was found today in bed with low blood pressure normal saline fluid bolus was initiated, paramedics were called and he is transported to the ED for further evaluation. According to nurses at the penitentiary facility he was in his usual state of health without obvious distress. No shortness of breath or cough. No vomiting or diarrhea. No change in mental status. Afebrile. No other history is obtainable at this time. ROS All systems reviewed and are negative except as per history of present illness. Medications Home Meds Active Scripts Levofloxacin* (Levaquin*) 750 Mg Tablet, 750 MG GTB DAILY@06 for 10 Days, TAB Prov:DILIP ARELLANO MD 10/02/16 Diltiazem Hcl* (Cardizem*) 60 Mg Tablet, 60 MG GTB Q8 for 30 Days, TAB Prov:DILIP ARELLANO MD 10/02/16 Digoxin* (Digitek*) 125 Mcg Tablet, 0.125 MG GTB DAILY@13 for 30 Days, TAB Prov:DILIP ARELLANO MD 10/02/16 Collagenase* (Santyl*) 30 Gm Oint..gm., 1 APPLIC TOP DAILY for 30 Days Prov:DILIP ARELLANO MD 10/02/16 Aspirin (Aspir-Elvira) 325 Mg Tablet., 325 MG PO DAILY, #30 Prov:DILIP ARELLANO MD 10/02/16 Amiodarone Hcl* (Amiodarone Hcl*) 200 Mg Tablet, 400 MG GTB BID for 30 Days, TAB Prov:DILIP ARELLANO MD 10/02/16 Reported Medications Multivitamins* (Theragran*) 1 Tab Tab, 1 TAB GTB DAILY, TAB 07/31/16 Fenofibrate, Micronized* (Fenofibrate*) 160 Mg Tablet, 160 MG GTB DAILY, TAB 07/31/16 Ferrous Sulfate (Ferrous Sulfate) 220 Mg/5 Ml Elixir, 7.5 ML GTB DAILY, BOTTLE 07/31/16 Acidophilus-Bulgaricus* (BD Lactinex*) 1 Pkt Packet, 1 PKT GTB BID, PACKET 07/31/16 Albuterol Sulfate* (Albuterol Sulfate* Neb) 0.083%-3 Ml Neb, 2.5 MG NEB Q3H Y for WHEEZING AND SOB, #30 VIAL 07/31/16 Acetaminophen* (Acetaminophen*) 650 Mg Tablet, 650 MG GTB Q4 Y for MILD PAIN LEVEL 1-3, #30 TAB 07/31/16 Cran/Vitc/Mannose/Inulin/Brom (Uti-Stat Liquid) 3,875 Mg/30 Ml Liquid, 3875 MG GTB BID 07/31/16 Ascorbic Acid* (Vitamin C* Liq) 500 Mg/5 Ml Syrup, 500 MG GTB DAILY, ML 07/31/16 Na Phos,M-B/Na Phos,Di-Ba (ENEMA READY TO USE) 135 Ml Enema, 135 ML RC PRN Y for CONSTIPATION, ENEMA 07/31/16 Atorvastatin Calcium* (Atorvastatin Calcium*) 20 Mg Tablet, 20 MG GTB QHS, #30 TAB 07/31/16 Magnesium Hydroxide* (Milk Of Magnesia*) 400 Mg/5 Ml Oral.susp, 30 ML GTB DAILY Y for CONSTIPATION, ML 07/31/16 Omeprazole* (Omeprazole*) 20 Mg Capsule.dr, 20 MG GTB DAILY, #30 CAP GIVE 30MIN PRIOR TO FEEDING 07/31/16 Docusate Sodium* (Colace*) 100 Mg Capsule, 100 MG GTB DAILY Y for CONSTIPATION, #30 CAP 07/31/16 Chlorhexidine Gluconate (Peridex) 473 Ml Mouthwash, 15 ML MM Q12, BOTTLE 07/31/16 Allergies Allergies: Coded Allergies: No Known Drug Allergies (Verified Allergy, Unknown, 10/25/16) PMhx/Soc Reviewed in chart. As per HPI. 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 Physical Exam Vitals Vital Signs Date Time Temp Pulse Resp B/P Pulse Ox O2 Delivery O2 Flow Rate FiO2 10/25/16 09:15 73 15 100 50 10/25/16 07:45 87 21 100 50 10/25/16 07:26 100.9 86 16 84/46 98 Physical Exam Const: Alert but unresponsive. Chronically ill-appearing. Moderate to severe distress. Head: Atraumatic Eyes: Normal Conjunctiva ENT: Normal External Ears, Nose and Mouth. Mucous membranes are dry. Neck: Full range of motion tracheostomy site clean without erythema, induration or drainage. Resp: Breath sounds are equal bilaterally with assisted ventilations. Clear to auscultation bilaterally Cardio: Regular rate and rhythm, no murmurs Abd: Soft, non tender, non distended. Normal bowel sounds. G-tube site clean without erythema, induration or drainage Skin: No petechiae or rashes multiple decubiti in various stages including sacral and both heels. Back: No midline or flank tenderness Ext: No cyanosis, or edema Neur: Awake and alert but unresponsive. Uncooperative. Result Diagram: 10/28/16 0530 10/28/16 0530 Results 24 hrs Laboratory Tests Test 10/25/16 08:00 10/25/16 08:12 10/25/16 09:11 10/25/16 10:30 White Blood Count 12.610^3/ul Red Blood Count 2.4910^6/ul Hemoglobin 6.4g/dl Hematocrit 20.2% Mean Corpuscular Volume 81.1fl Mean Corpuscular Hemoglobin 25.7pg Mean Corpuscular Hemoglobin Concent 31.7g/dl Red Cell Distribution Width 16.5% Platelet Count 40887^3/UL Mean Platelet Volume 14.1fl Neutrophils % 81.0% Band Neutrophils % 4.0% Lymphocytes % 11.0% Monocytes % 4.0% Neutrophils # 10.210^3/ul Lymphocytes # 1.410^3/ul Monocytes # 0.510^3/ul Differential Comment MANUAL DIFF Large Platelets OCCASIONAL Prothrombin Time 15.4Sec Prothrombin Time Ratio 1.2 INR International Normalized Ratio 1.21 Activated Partial Thromboplast Time 29.1Sec Sodium Level 132mmol/L Potassium Level 6.0mmol/L Chloride Level 100mmol/L Carbon Dioxide Level 20mmol/L Anion Gap 18 Blood Urea Nitrogen 213mg/dl Creatinine 2.59mg/dl Glucose Level 207mg/dl Lactic Acid Level 2.3mmol/L 0.9mmol/L Calcium Level 7.2mg/dl Total Bilirubin 0.1mg/dl Direct Bilirubin 0.10mg/dl Indirect Bilirubin 0.0mg/dl Aspartate Amino Transf (AST/SGOT) 59IU/L Alanine Aminotransferase (ALT/SGPT) 26IU/L Alkaline Phosphatase 168IU/L Troponin I 0.152ng/ml Total Protein 6.4g/dl Albumin 2.8g/dl Globulin 3.60g/dl Albumin/Globulin Ratio 0.77 Thyroid Stimulating Hormone (TSH) 0.375MIU/L Free Thyroxine 2.92ng/dl Digoxin Level 3.0ng/ml Bedside Glucose 241mg/dL Stool Occult Blood POSITIVE Test 10/25/16 10:50 Hemoglobin 5.8g/dl Hematocrit 19.4% B-Type Natriuretic Peptide 37998HK/ML Current Medications Medications (Trade) Dose Ordered Sig/Davidson Route PRN Reason Start Time Stop Time Status Last Admin Dose Admin Sodium Chloride 2480 ml 2,480 ml BOLUS OVER 2 HOURS STAT IV* 10/25/16 07:34 10/25/16 07:38 DC 10/25/16 08:50 Cefepime HCl 50 ml @ 100 mls/hr ONCE STAT IVPB 10/25/16 07:34 10/25/16 08:03 DC 10/25/16 08:51 Vancomycin HCl (Vancocin) 250 ml @ 125 mls/hr ONCE ONCE IVPB 10/25/16 08:00 10/25/16 09:59 DC 10/25/16 08:51 Acetaminophen (Tylenol Liquid) 650 mg ONCE STAT NGT 10/25/16 07:34 10/25/16 07:38 DC 10/25/16 08:51 Lidocaine (Xylocaine 1% (Mdv) 20 ml) 20 ml ONCE ONCE SC 10/25/16 08:00 10/25/16 08:01 DC Pantoprazole (Protonix Iv) 40 mg ONCE ONCE IV 10/25/16 09:00 10/25/16 09:01 DC 10/25/16 08:50 Albuterol (Proventil 0.5% (Neb)) 15 mg ONCE STAT INH 10/25/16 10:45 10/25/16 10:46 DC 10/25/16 11:06 Insulin Human Regular (Humulin R) 10 unit ONCE STAT IV 10/25/16 10:47 10/25/16 10:49 DC 10/25/16 14:22 RHYTHM STRIP INTERPRETATION: Time: 07:40. Sinus rhythm. Ventricular rate 78. No ectopy. Indication: Hypotension. EKG: TIME: 08:06. Sinus rhythm. PA interval 258 ms consistent with first-degree AV block. Q waves in leads [address] depressions in V3 through V6. No acute ST segment elevations. No ectopy. EP Interpretation: Abnormal EKG. IMAGING: PROCEDURE: XR Chest. CLINICAL INDICATION: Shortness of breath. TECHNIQUE: Single frontal view. COMPARISON: 09/30/2016. FINDINGS: The tracheostomy tube is in satisfactory A position. There is mild pulmonary edema, decreased compared to the prior exam. Mild bibasilar atelectasis persists. The lungs are otherwise clear. The heart size is normal. There is no pleural effusion. There is no pneumothorax. IMPRESSION: 1. Interval decreased congestion/edema. 2. Persistent bibasilar atelectasis. RPTAT: JJ Clau .Troy Almeida MD, MD Date Time Electronically viewed and signed by .Troy Almeida MD, on 10/25/2016 09:05 .A/ Procedures/MDM DOCUMENTS REVIEWED: ED nurse, penitentiary facility records, prior admission records including history and physical, progress notes and discharge summary of an admission 09/25/2016 through 10/02/2016. PROCEDURES: 08:45. Patient with a Randleman Coma Scale of 3 unable to provide consent obtained from his son. MEDICAL DECISION MAKIN-year-old male history of CVA, diabetes mellitus type 2, or COPD, respiratory failure status post tracheostomy, dysphasia status post PEG tube placement, hypertension, peptic ulcer disease, BPH and ASHD brought to the ED via rescue ambulance from [facility] for evaluation of hypotension. Patient with multiple criteria for systemic inflammatory response syndrome and sepsis secondary to urinary tract infection with hypotension and septic shock. Initial lactate was 2.3 and repeat 0.9. Normal saline 30 mL/kg fluid bolus given and cefepime and vancomycin initiated after cultures. Severe anemia with guaiac positive stools. Patient typed and crossmatched for 2 units of packed red blood cells. Patient's infectious symptoms have not stabilized and the patient is at risk of rapid decompensation. The patient will be admitted to the intensive care unit for further evaluation and management including careful hydration, antibiotic therapy, and infectious source control. Severe Sepsis criteria: Infectious source: Urinary tract infection End organ damage indicated by: Lactate > 2.0 mmol/L Hypotension (SBP < 90 or >40 mmHG drop or MAP < 65) Acute Resp Failure (sat < 92% w/o oxygen) Gasket Former > 2.0 Sepsis Management: Time of recognition of severe sepsis/septic shock: 08:00 Within 3 hours of recognition: Blood cultures x 2 before broad-spectrum antibiotics: Yes 30 ml/kg NS bolus Completed Initial lactate 2.3 Repeat lactate 0.9 Septic Shock Assessment: Persistent hypotension (SBP < 90 or 40 mmHg drop, MAP < 65) despite 30 mL/kg IV fluid bolus []No Volume Re-assessment for Septic Shock (post 30 ml/kg bolus @ time:11:20 Temp 98.1, BP 84/48, HR 71, RR 18, Pox 100% Heart Regular rate & rhythm Lungs No crackles Skin Warm & dry Cap Refill Less than 2 seconds Peripheral pulses Radially present Persistent Hypotension Treatment: Comfort care No Hypotension caused by: pt. baseline, med-induced, erroneous value, condition other than infection No Refusal by patient/decision maker for: blood draw, IVF, Antibiotics, Pressors No Central line periphery inserted central catheter I considered further perfusion assessment with CVP measurement, SCVO2, bedside ultrasound volume assessment, passive leg raise, trial of further fluid bolus and proceeded with repeat fluid bolus and blood transfusion. Critical Care Note: Treatments/Evaluations: Close monitoring and treatment of unstable vital signs, cardiorespiratory, and neurologic status, while maintaining tight balance of fluid, respiratory, and cardiac interventions. This includes the administration of emergency fluid management while maintaining close respiratory support as well as the provision of immediate and broad-spectrum antibiotic therapy, while performing a simultaneous assessment for possible sources in order to direct targeted therapy. This time includes the consideration for invasive and chemical support to prevent cardiopulmonary collapse. This time does not include all procedures stated elsewhere in this record. This time also includes reviewing old records, labs and radiological studies. This time includes examining and re-examining the patient. Additionally, this time also includes arranging care with admitting and consulting physicians. Family history not relevant to presenting complaint. Total critical care time not including other separately reportable procedures: 35 minutes. CALLS/CONSULTS: Time 10:00, Dr. Arellano, Recommends admission to the intensive care unit and will arrange for cardiology and infectious disease consultations PATIENT CARE TRANSITIONED: Time: 10:10, Dr. Arellano. Departure Diagnosis: Primary Impression: Septic shock Additional Impressions: Chronic respiratory failure Qualified Code: J96.11 - Chronic respiratory failure with hypoxia Ventilator dependent Urinary tract infection without hematuria Qualified Code: N39.0 - Urinary tract infection without hematuria, site unspecified Acute renal failure Qualified Code: N17.9 - Acute renal failure, unspecified acute renal failure type Dehydration History of CVA (cerebrovascular accident) Diabetes mellitus type 2 in obese History of atrial fibrillation Severe anemia Upper GI bleed Condition: Critical BRIANNA CALLES MD Oct 25, 2016 07:39 Insulin Human Regular (Humulin R) 10 unit ONCE STAT IV 10/25/16 10:47 10/25/16 10:49 DC 10/25/16 14:22 Dextrose (D50w Syringe) 50 ml ONCE PRN IV POC BLOOD GLUCOSE <250 MG/DL 10/25/16 11:00 Ondansetron HCl (Zofran Inj) 4 mg Q6H PRN IV NAUSEA AND/OR VOMITING 10/25/16 11:00 Nitroglycerin (Nitroglycerin (Sl Tab) 0.4 Mg) 1 tab Q5M PRN SL CHEST PAIN 10/25/16 11:00 Acetaminophen (Tylenol Tab) 650 mg Q6H PRN PO PAIN LEVEL 1-3 OR FEVER 10/25/16 11:00 Acetaminophen (Tylenol Supp) 650 mg Q4H PRN PA PAIN LEVEL 1-3 OR FEVER 10/25/16 11:00 Docusate Sodium (Colace) 100 mg Q12H PRN PO CONSTIPATION 10/25/16 11:00 Bisacodyl (Dulcolax Supp) 10 mg DAILY PRN PA CONSTIPATION 10/25/16 11:00 Pantoprazole (Protonix Iv) 40 mg DAILY@06 IV 10/26/16 06:00 10/26/16 06:00 DC Albuterol (Proventil 0.083% (Neb)) 2.5 mg Q3H RESP THERAPY PRN NEB WHEEZING AND SOB 10/25/16 11:00 Amiodarone HCl (Cordarone) 400 mg BID GTB 10/25/16 21:00 Ascorbic Acid (Vitamin C) 500 mg DAILY GTB 10/26/16 09:00 Chlorhexidine Gluconate (Peridex) 15 ml Q12 MM 10/25/16 21:00 Collagenase (Santyl) 1 applic DAILY TOP 10/26/16 09:00 Digoxin (Digoxin) 0.125 mg DAILY@13 GTB 10/25/16 13:00 Future Hold Ferrous Sulfate (Ferrous Sulfate) 330 mg DAILY GTB 10/26/16 09:00 UNV Multivitamins Therapeutic (Theragran) 1 tab DAILY GTB 10/26/16 09:00 Miscellaneous Information 1 pkt BID GTB 10/25/16 21:00 UNV Miscellaneous Information 3,875 mg BID GTB 10/25/16 21:00 UNV Miscellaneous Information 160 mg 160 mg DAILY GTB 10/26/16 09:00 UNV Dextrose/Sodium Chloride 1,000 ml @ 75 mls/hr [id number] IV 10/25/16 15:30 10/25/16 14:35 Sodium Chloride 1,000 ml @ 1,000 mls/hr Q1H IV 10/25/16 13:30 10/25/16 15:29 10/25/16 14:13 Dobutamine HCl/ Dextrose 250 ml @ 12 mls/hr TITRATE IV 10/25/16 11:30 UNV Aztreonam/Sodium Chloride (Azactam/NS) 100 ml @ 100 mls/hr Q8 IVPB 10/25/16 14:00 UNV IV Flush (NS 10 ml) 10 ml PRN PRN IV IV PROTOCOL 10/25/16 11:30 Sodium Chloride 2480 ml 2,480 ml BOLUS OVER 2 HOURS STAT IV* 10/25/16 11:47 10/25/16 11:48 DC 10/25/16 11:47 Sodium Chloride (NS) 100 ml @ ud STK-MED ONCE .ROUTE 10/25/16 12:09 10/25/16 12:10 DC 10/25/16 10:10 Atorvastatin Calcium (Lipitor) 20 mg HS PO 10/25/16 21:00 Pantoprazole (Protonix Iv) 40 mg BID IV 10/25/16 21:00 RHYTHM STRIP INTERPRETATION: Time: 07:40. Sinus rhythm. Ventricular rate 78. No ectopy. Indication: Hypotension. EKG: TIME: 08:06. Sinus rhythm. PA interval 258 ms consistent with first-degree AV block. Q waves in leads [address] depressions in V3 through V6. No acute ST segment elevations. No ectopy. EP Interpretation: Abnormal EKG. IMAGING: PROCEDURE: XR Chest. CLINICAL INDICATION: Shortness of breath. TECHNIQUE: Single frontal view. COMPARISON: 09/30/2016. FINDINGS: The tracheostomy tube is in satisfactory A position. There is mild pulmonary edema, decreased compared to the prior exam. Mild bibasilar atelectasis persists. The lungs are otherwise clear. The heart size is normal. There is no pleural effusion. There is no pneumothorax. IMPRESSION: 1. Interval decreased congestion/edema. 2. Persistent bibasilar atelectasis. RPTAT: JJ Clau .Troy Almeida MD, Date Time Electronically viewed and signed by .Troy Almeida MD, on 10/25/2016 09:05 .A/ Procedures/MDM DOCUMENTS REVIEWED: ED nurse, penitentiary facility records, prior admission records including history and physical, progress notes and discharge summary of an admission 09/25/2016 through 10/02/2016. PROCEDURES: 08:45. Patient with a Randleman Coma Scale of 3 unable to provide consent obtained from his son. ED COURSE: [] REEXAMINATION/REEVALUATION: Time:[] MEDICAL DECISION MAKIN-year-old male history of CVA, diabetes mellitus type 2, or COPD, respiratory failure status post tracheostomy, dysphasia status post PEG tube placement, hypertension, peptic ulcer disease, BPH and ASHD brought to the ED via rescue ambulance from [facility] for evaluation of hypotension. Patient's infectious symptoms have not stabilized and the patient is at risk of rapid decompensation. The patient will be admitted to the intensive care unit for further evaluation and management including careful hydration, antibiotic therapy, and infectious source control. Severe Sepsis criteria: Infectious source: Urinary tract infection End organ damage indicated by: [] Lactate > 2.0 mmol/L Hypotension (SBP < 90 or >40 mmHG drop or MAP < 65) Acute Resp Failure (sat < 92% w/o oxygen) Gasket Former > 2.0 INR > 1.5 Plt < 100 Bili > 2 Sepsis Management: Time of recognition of severe sepsis/septic shock: [] Within 3 hours of recognition: Blood cultures x 2 before broad-spectrum antibiotics: []Yes 30 ml/kg NS bolus []Completed Initial lactate [] Repeat lactate []Not indicated as initial lactate < 2.0 Septic Shock Assessment: Any lactic acid > 4.0 []No Persistent hypotension (SBP < 90 or 40 mmHg drop, MAP < 65) despite 30 mL/kg IV fluid bolus []No Volume Re-assessment for Septic Shock (post 30 ml/kg bolus @ [] time): Temp [], BP [], HR [], RR[], Pox [] Heart []Regular rate & rhythm Lungs []No crackles Skin []Warm & dry Cap Refill []Less than 2 seconds Peripheral pulses []Radially present Persistent Hypotension Treatment: Comfort care []No Hypotension caused by: pt. baseline, med-induced, erroneous value, condition other than infection []No Refusal by patient/decision maker for: blood draw, IVF, Antibiotics, Pressors [* ]No Central line [] Vasopressor started []Norepinehrine I considered further perfusion assessment with CVP measurement, SCVO2, bedside ultrasound volume assessment, passive leg raise, trial of further fluid bolus and proceeded with []. Accepting Care Team Current data and ongoing care discussed. Time: [] Admitting Physician: [] Manager Mall(s): Outstanding Data: []None Critical Care Note: Treatments/Evaluations: Close monitoring and treatment of unstable vital signs, cardiorespiratory, and neurologic status, while maintaining tight balance of fluid, respiratory, and cardiac interventions. This includes the administration of emergency fluid management while maintaining close respiratory support as well as the provision of immediate and broad-spectrum antibiotic therapy, while performing a simultaneous assessment for possible sources in order to direct targeted therapy. This time includes the consideration for invasive and chemical support to prevent cardiopulmonary collapse. This time does not include all procedures stated elsewhere in this record. This time also includes reviewing old records, labs and radiological studies. This time includes examining and re-examining the patient. Additionally, this time also includes arranging care with admitting and consulting physicians. Total critical care time not including other separately reportable procedures: 35 minutes. CALLS/CONSULTS: Time[Dr. Greer [], Recommends []. PATIENT CARE TRANSITIONED: Time: [Dr. Greer []. Departure Diagnosis: Primary Impression: Severe sepsis Additional Impressions: Severe anemia Acute renal failure Qualified Code: N17.9 - Acute renal failure, unspecified acute renal failure type Dehydration History of CVA (cerebrovascular accident) Diabetes mellitus type 2 in obese Condition: Critical BRIANNA CALLES MD Oct 25, 2016 07:39
[2016-10-25] MEDS ORDERED: VANCOMYCIN 1 GM (PMX) 250 ML IVPB ONE (08:00)
[2016-10-25] MEDS ORDERED: LIDOCAINE 1% (MDV) 20 ML INJ SC ONE (08:00)
[2016-10-25 08:18] LABS: ADD SCAN DIFF NO
[2016-10-25 08:22] LABS: ABNORMAL IP MESSAGE 1; HEMATOCRIT 20.2 % (42.0-52.0); MEAN CORPUSCULAR HEMOGLOBIN 25.7 pg (29.0-33.0); MEAN CORPUSCULAR HGB CONC 31.7 g/dl (32.0-37.0); MEAN CORPUSCULAR VOLUME 81.1 fl (82.0-101.0); MEAN PLATELET VOLUME 14.1 fl (7.4-10.4); PLATELET COUNT 186 10^3/UL (140-415); RED BLOOD COUNT 2.49 10^6/ul (4.70-6.10); RED CELL DISTRIBUTION WIDTH 16.5 % (11.5-14.5); WHITE BLOOD COUNT 12.6 10^3/ul (4.8-10.8)
[2016-10-25 08:28] LABS: HEMOGLOBIN 6.4 g/dl (14.0-18.0)
[2016-10-25 08:36] LABS: ALBUMIN 2.8 g/dl (3.3-4.9)
[2016-10-25 08:39] LABS: ALBUMIN/GLOBULIN RATIO 0.77; BILIRUBIN,DIRECT 0.1 mg/dl (0.00-0.20); BILIRUBIN,TOTAL 0.1 mg/dl (0.2-1.3); TOTAL PROTEIN 6.4 g/dl (6.1-8.1)
[2016-10-25 08:40] LABS: CALCIUM 7.2 mg/dl (8.4-10.2)
[2016-10-25 08:45] LABS: INR 1.21; PROTIME 15.4 Sec (12.2-14.2); PT RATIO 1.2
[2016-10-25 08:46] LABS: CREATININE 2.59 mg/dl (0.61-1.24); PARTIAL THROMBOPLASTIN TIME 29.1 Sec (25.0-35.0)
[2016-10-25] MEDS ORDERED: PANTOPRAZOLE 40 MG INJ IV ONE (09:00)
--- NOTE | 2016-10-25 09:05 | RADRPT ---
PROCEDURE: XR Chest. CLINICAL INDICATION: Shortness of breath. TECHNIQUE: Single frontal view. COMPARISON: 09/30/2016. FINDINGS: The tracheostomy tube is in satisfactory A position. There is mild pulmonary edema, decreased shalom red to the prior exam. Mild bibasilar atelectasis persists. The lungs are otherwise clear. The he art size is normal. There is no pleural effusion. There is no pneumothorax. IMPRESSION: 1. Interval decreased congestion/edema. 2. Persistent bibasilar atelectasis. RPTAT: JJ Clau .Troy Almeida MD, MD Date Time Electronically viewed and signed by .Troy Almeida MD, on 10/25/2016 09:05 .A/
[2016-10-25 09:07] LABS: TROPONIN-I 0.152 ng/ml (0.00-0.12)
[2016-10-25 09:59] LABS: LYMPHOCYTES # 1.4 10^3/ul (0.8-2.9); MONOCYTE # 0.5 10^3/ul (0.3-0.9); NEUTROPHIL # 10.2 10^3/ul (1.6-7.5)
--- NOTE | 2016-10-25 10:40 | RADRPT ---
PROCEDURE: US guidance for PICC line CLINICAL INDICATION: PICC line placement TECHNIQUE: Multiple real-time images were acquired of the patient's arm utilizing a high resolutio n transducer. This was performed by the PICC line nurse for venous access. COMPARISON: None FINDINGS: Ultrasound guidance for PICC line placement. IMPRESSION: Ultrasound guidance for PICC line placement. RPTAT: AA .Pan Galloway MD, MD Date Time Electronically viewed and signed by .Pan Galloway MD, on 10/25/2016 10:39 .S/
[2016-10-25] MEDS ORDERED: ALBUTEROL 0.5% (NEB) 2.5 MG/0.5 ML AMP INH STA (10:45)
[2016-10-25] MEDS ORDERED: INSULIN REGULAR, HUMAN 100 UNIT/1 ML 3ML VIAL IV STA (10:47)
[2016-10-25] MEDS ORDERED: ACETAMINOPHEN 650 MG SUPP PR PRN (11:00)
[2016-10-25] MEDS ORDERED: DOCUSATE SODIUM 100 MG CAP PO PRN (11:00)
[2016-10-25] MEDS ORDERED: NITROGLYCERIN (SL) 0.4 MG TAB SL PRN (11:00)
[2016-10-25] MEDS ORDERED: ALBUTEROL 0.083% (NEB) 2.5 MG/3 ML AMP NEB PRN (11:00)
[2016-10-25] MEDS ORDERED: ONDANSETRON 4 MG INJ IV PRN (11:00)
[2016-10-25] MEDS ORDERED: DEXTROSE 50% 50 ML SYRINGE IV PRN (11:00)
[2016-10-25] MEDS ORDERED: ACETAMINOPHEN 325 MG TAB PO PRN (11:00)
[2016-10-25] MEDS ORDERED: BISACODYL 10 MG SUPP PR PRN (11:00)
[2016-10-25 11:03] LABS: HEMATOCRIT 19.4 % (42.0-52.0)
[2016-10-25 11:08] LABS: HEMOGLOBIN 5.8 g/dl (14.0-18.0)
--- NOTE | 2016-10-25 11:12 | RADRPT ---
PROCEDURE: XR Chest. CLINICAL INDICATION: PICC line placement TECHNIQUE: An AP view of the chest was obtained. COMPARISON: Chest x-ray dated 10/25/2016 at 08:19 a.m. FINDINGS: A tracheostomy tube remains in place. There is a left upper extremity PICC line with tip near the cavoatrial junction. There is prominence of the bibasilar interstitial markings probable small right pleural effusion. No focal airspace opacification or pneumothorax is seen. The cardiomediastinal silhouette is mildl y enlarged . Calcifications are seen within the aortic arch. The osseous structures demonstrate sen escent changes. IMPRESSION: 1. Bibasilar interstitial edema versus atelectasis with probable small right pleural effusion. Over all, no significant interval change. 2. Mild cardiomegaly and aortic atherosclerosis. 3. Tubes and lines, as described above. Interval placement of a left upper extremity PICC line with tip near the cavoatrial junction. RPTAT: HH .Lorraine Sarabia MD, MD Date Time Electronically viewed and signed by .Lorraine Sarabia MD, on 10/25/2016 11:12 .G/
[2016-10-25 11:35] LABS: ADD UMIC YES; URINE BILIRUBIN (Dip) NEGATIVE (NEGATIVE); URINE BLOOD (Dip) 1+ (NEGATIVE); URINE COLOR LT. YELLOW (YELLOW); URINE GLUCOSE (Dip) NEGATIVE (NEGATIVE); URINE KETONES (Dip) NEGATIVE (NEGATIVE); URINE LEUKOCYTE ESTERASE (Dip) 3+ (NEGATIVE); URINE NITRITE (Dip) NEGATIVE (NEGATIVE); URINE TOTAL PROTEIN (Dip) TRACE (NEGATIVE); URINE UROBILINOGEN (Dip) 0.2 E.U./dL (0.1-1.0)
[2016-10-25 11:59] LABS: BACTERIA,URINE MANY
[2016-10-25] MEDS ORDERED: SOD CHLORIDE 0.9% 100 ML ONE (12:09)
--- NOTE | 2016-10-25 12:14 | CONS ---
Date/Time of Note Date/Time of Note DATE: 10/25/16 TIME: 12:08 Assessment/Plan Assessment/Plan Additional Assessment/Plan Septic shock Acute blood loss anemia Elevated troponin likely secondary to above Respiratory failure Paroxysmal atrial fibrillation, currently sinus rhythm Paroxysmal atrial tachycardia Preserved ejection fraction Acute kidney injury with hyperkalemia -Patient with severe hypotension likely evidence of sepsis as well as acute blood loss anemia and acute kidney injury. Troponins are minimally elevated likely secondary to above. Patient receiving IV fluid boluses, awaiting blood transfusion, and blood pressure does not improve with urgent blood transfusion, would recommend initiation of IV levophed to maintain SBP greater than 90 and/ or map above 60. No aspirin at the current time secondary to severe anemia. Start statin therapy, no beta-fox secondary to hypotension. Serial cardiac enzymes. Consultation Date/Type/Reason Admit Date/Time Type of Consultation: cv Reason for Consultation Hypotension and elevated troponin Hx of Present Illness This is a 76-year-old male with history of CVA, respiratory failure with tracheostomy, paroxysmal atrial fibrillation, atrial tachycardia who presented from a nursing facility secondary to altered mental status, fevers and hypotension. Patient with presumed diagnosis of sepsis. Patient also found to be severely anemic and acute kidney injury and mildly elevated troponin. Cardiology position was requested secondary to above. Unable to be performed at the current time given patient's mental status Past Medical History Respiratory failure Paroxysmal atrial fibrillation CVA Atrial tachycardia Past Surgical History Including but not limited to tracheostomy, PEG placement Family History Significant Family History: no pertinent family hx Social History Alcohol Use: none Smoking Status: Unknown if ever smoked Other Social History From half-way facility Exam/Review of Systems Vital Signs Vitals Vital Signs Date Time Temp Pulse Resp B/P Pulse Ox O2 Delivery O2 Flow Rate FiO2 10/25/16 11:29 98.1 71 18 84/48 100 Room Air 10/25/16 11:00 50 Exam Sleeping, opens his eyes to his name but does not follow commands, being seen in the emergency room Head: normocephalic Neck: other (Tracheostomy) Respiratory: crackles/rales, other (Coarse breath sounds bilaterally, no wheezing) Cardiovascular: other (S1-S2 heard), regular rate and rhythm Gastrointestinal: bowel sounds, distended, other (No grimacing with palpation) , soft Extremities: edema (Trace), other (Bandage lower extremity) Results Result Diagram: 10/25/16 1050 10/25/16 0800 Results 24 hrs Laboratory Tests Test 10/25/16 08:00 10/25/16 08:12 10/25/16 09:11 10/25/16 10:30 White Blood Count 12.6 H Red Blood Count 2.49 #L Hemoglobin 6.4 #*L Hematocrit 20.2 #L Mean Corpuscular Volume 81.1 L Mean Corpuscular Hemoglobin 25.7 L Mean Corpuscular Hemoglobin Concent 31.7 L Red Cell Distribution Width 16.5 H Platelet Count 186 # Mean Platelet Volume 14.1 #H Neutrophils % 81.0 H Band Neutrophils % 4.0 Lymphocytes % 11.0 L Monocytes % 4.0 Neutrophils # 10.2 H Lymphocytes # 1.4 Monocytes # 0.5 Differential Comment MANUAL DIFF Large Platelets OCCASIONAL Prothrombin Time 15.4 H Prothrombin Time Ratio 1.2 INR International Normalized Ratio 1.21 Activated Partial Thromboplast Time 29.1 Sodium Level 132 L Potassium Level 6.0 H Chloride Level 100 Carbon Dioxide Level 20 L Anion Gap 18 H Blood Urea Nitrogen 213 H Creatinine 2.59 H Glucose Level 207 Lactic Acid Level 2.3 H 0.9 Calcium Level 7.2 L Total Bilirubin 0.1 L Direct Bilirubin 0.10 Indirect Bilirubin 0.0 Aspartate Amino Transf (AST/SGOT) 59 H Alanine Aminotransferase (ALT/SGPT) 26 Alkaline Phosphatase 168 H Troponin I 0.152 *H Total Protein 6.4 Albumin 2.8 L Globulin 3.60 H Albumin/Globulin Ratio 0.77 Thyroid Stimulating Hormone (TSH) 0.375 L Digoxin Level 3.0 *H Bedside Glucose 241 H Stool Occult Blood POSITIVE Test 10/25/16 10:50 10/25/16 11:00 10/25/16 11:15 Hemoglobin 5.8 *L Hematocrit 19.4 L B-Type Natriuretic Peptide 56306 H Urine Color LT. YELLOW Urine Clarity CLEAR Urine pH 5.0 Urine Specific [place] <=1.005 L Urine Ketones NEGATIVE Urine Nitrite NEGATIVE Urine Bilirubin NEGATIVE Urine Urobilinogen 0.2 E.U./dL Urine Leukocyte Esterase 3+ H Urine Microscopic RBC 2-5 Urine Microscopic WBC >50 Urine Bacteria MANY Urine Yeast MODERATE Urine Hemoglobin 1+ H Urine Glucose NEGATIVE Urine Total Protein TRACE Lactic Acid Level 0.8 Medications Medications Current Medications Dextrose (D50w Syringe) 50 ml ONCE PRN IV POC BLOOD GLUCOSE <250 MG/DL; Start 10/25/16 at 11:00 Ondansetron HCl (Zofran Inj) 4 mg Q6H PRN IV NAUSEA AND/OR VOMITING; Start 10/25 at 11:00; Status UNV Nitroglycerin (Nitroglycerin (Sl Tab) 0.4 Mg) 1 tab Q5M PRN SL CHEST PAIN; Start 10/25/16 at 11:00; Status UNV Acetaminophen (Tylenol Tab) 650 mg Q6H PRN PO PAIN LEVEL 1-3 OR FEVER; Start at 11:00; Status UNV Acetaminophen (Tylenol Supp) 650 mg Q4H PRN [place] PAIN LEVEL 1-3 OR FEVER; Start 10/25/16 at 11:00; Status UNV Docusate Sodium (Colace) 100 mg Q12H PRN PO CONSTIPATION; Start 10/25/16 at 11: 00; Status UNV Bisacodyl (Dulcolax Supp) 10 mg DAILY PRN [place] CONSTIPATION; Start 10/25/16 at 11: 00; Status UNV Pantoprazole (Protonix Iv) 40 mg DAILY@06 IV ; Start 10/26/16 at 06:00; Status UNV Albuterol (Proventil 0.083% (Neb)) 2.5 mg Q3H PRN NEB WHEEZING AND SOB; Start 10/25/16 at 11:00; Status UNV Amiodarone HCl (Cordarone) 400 mg BID GTB ; Start 10/25/16 at 21:00; Status UNV Ascorbic Acid (Vitamin C) 500 mg DAILY GTB ; Start 10/26/16 at 09:00; Status UNV Chlorhexidine Gluconate (Peridex) 15 ml Q12 MM ; Start 10/25/16 at 21:00; Status UNV Collagenase (Santyl) 1 applic DAILY TOP ; Start 10/26/16 at 09:00; Status UNV Digoxin (Digoxin) 0.125 mg DAILY@13 GTB ; Start 10/25/16 at 13:00; Status UNV Ferrous Sulfate (Ferrous Sulfate) 330 mg DAILY GTB ; Start 10/26/16 at 09:00; Status UNV Multivitamins Therapeutic (Theragran) 1 tab DAILY GTB ; Start 10/26/16 at 09:00; Status UNV Miscellaneous Information 1 pkt BID GTB ; Start 10/25/16 at 21:00; Status UNV Miscellaneous Information 3,875 mg BID GTB ; Start 10/25/16 at 21:00; Status UNV Miscellaneous Information 160 mg 160 mg DAILY GTB ; Start 10/26/16 at 09:00; Status UNV Dextrose/Sodium Chloride 1,000 ml @ 75 mls/hr [id number] IV ; Start 10/25/16 at 11: 00; Status UNV Sodium Chloride 1,000 ml @ 1,000 mls/hr Q1H IV ; Start 10/25/16 at 11:01; Stop 10/25/16 at 13:00; Status UNV Dobutamine HCl/ Dextrose 250 ml @ 12 mls/hr TITRATE IV ; Start 10/25/16 at 11:30 ; Status UNV Aztreonam/Sodium Chloride (Azactam/NS) 100 ml @ 100 mls/hr Q8 IVPB ; Start 10/25 at 14:00; Status UNV IV Flush (NS 10 ml) 10 ml PRN PRN IV IV PROTOCOL; Start 10/25/16 at 11:30; Status UNV Procedures Procedures ECG demonstrates sinus rhythm with first-degree AV block, nonspecific STT wave abnormalities Ervin Ceja DO Oct 25, 2016 12:13
[2016-10-25] MEDS ORDERED: DIGOXIN 0.125 MG TAB GTB SCH (13:00)
[2016-10-25 13:19] LABS: ADD SCAN DIFF NO
[2016-10-25 13:22] LABS: ABNORMAL IP MESSAGE 1; HEMATOCRIT 18.1 % (42.0-52.0); LYMPHOCYTES # 2.1 10^3/ul (0.8-2.9); LYMPHOCYTES % 17.4 % (15.0-51.0); MEAN CORPUSCULAR HEMOGLOBIN 26.2 pg (29.0-33.0); MEAN CORPUSCULAR HGB CONC 30.9 g/dl (32.0-37.0); MEAN CORPUSCULAR VOLUME 84.6 fl (82.0-101.0); MEAN PLATELET VOLUME 13.7 fl (7.4-10.4); MONOCYTE # 0.7 10^3/ul (0.3-0.9); NEUTROPHIL # 9.1 10^3/ul (1.6-7.5); NEUTROPHILS % 76.2 % (39.0-77.0); PLATELET COUNT 119 10^3/UL (140-415); RED BLOOD COUNT 2.14 10^6/ul (4.70-6.10); RED CELL DISTRIBUTION WIDTH 16.4 % (11.5-14.5); WHITE BLOOD COUNT 11.9 10^3/ul (4.8-10.8)
[2016-10-25 13:33] LABS: ALBUMIN 2.3 g/dl (3.3-4.9); POTASSIUM 4.4 mmol/L (3.5-5.1)
[2016-10-25 13:35] LABS: CREATININE 2.4 mg/dl (0.61-1.24)
[2016-10-25 13:36] LABS: ALBUMIN/GLOBULIN RATIO 0.69; BILIRUBIN,DIRECT 0.1 mg/dl (0.00-0.20); BILIRUBIN,TOTAL 0.1 mg/dl (0.2-1.3); CALCIUM 6.3 mg/dl (8.4-10.2); TOTAL PROTEIN 5.6 g/dl (6.1-8.1)
--- NOTE | 2016-10-25 13:39 | CONS ---
Date/Time of Note Date/Time of Note DATE: 10/25/16 TIME: 13:34 Assessment/Plan Assessment/Plan Additional Assessment/Plan Ventilator settings; AC of 12, tidal volume 550, PEEP of 5, 50% FiO2. Chest x-ray was reviewed from today which is essentially clear. UA is positive for UTI. Assessment recommendations; 1. Patient admitted for anemia etiology is unclear. 2. Hypotension combination of intravascular volume depletion as well as anemia. Patient adequately fluid resuscitated not requiring any further pressor support. 3. 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 4. Chronic respiratory failure, ventilator dependent. 5. Multiple episodes of sepsis and pneumonia in the past. 6. UTI. Continue current supportive care. Patient overall prognosis remains poor. Consultation Date/Type/Reason Admit Date/Time Date of Consultation: Oct 25, 2016 Type of Consultation: Pulmonary/critical care Reason for Consultation Pulmonary consultations requested for evaluation of hypotension, chronic respiratory failure. History presenting any; patient is a 76-year-old white male who was transferred over from senior living with complaints of being hypotensive. Upon further evaluation here the patient also found to be quite anemic as well as dehydrated patient. The patient has been fluid resuscitated and also will be getting packed RBC transfusion for anemia. The patient because of history of severe CVA is unable to give any history whatsoever. History was obtained from medical records. Past medical history; 1. History of chronic respiratory failure, ventilator dependent. 2. History of multiple CVAs. 3. Status post tracheostomy and G-tube placement. 4. Peripheral vascular disease. 5. Chronic renal insufficiency. 6. Multiple episodes of pneumonia and sepsis in the past. Medications; were reviewed. Allergies; are none. Social history; most of any smoking. Family history; not available. Next Occupational history; not available. Review of systems; unable to be obtained. General exam; elderly male, awake and follows very simple commands by head nodding. Currently in no distress. Social History Alcohol Use: none Smoking Status: Unknown if ever smoked Exam/Review of Systems Vital Signs Vitals Vital Signs Date Time Temp Pulse Resp B/P Pulse Ox O2 Delivery O2 Flow Rate FiO2 10/25/16 11:29 98.1 71 18 84/48 100 Room Air 10/25/16 11:00 50 Exam H EENT exam; supple neck, no JVD. No lymphadenopathy. Midline trachea. Nipples are equal and reactive to light. Patient does have fair dentition. Trachea ostomy in place with clean insertion site. No thyromegaly, no neck bruits. Chest exam is; diminished but clear breath sounds bilaterally. S1-S2 audible, no murmurs. Regular rhythm. Abdomen exam is; there is mild abdominal wall edema present. G-tube in place. Bowel sounds audible. There is no scrotal or penile edema. Extremity exam is; there is a dressing applied over the left foot. Dorsalis pedis pulses 1+ on the right side and not palpable on the left foot. HOOKER ON examination; patient is awake and answers simple questions by head nodding. Results Result Diagram: 10/25/16 1050 10/25/16 0800 Results 24 hrs Laboratory Tests Test 10/25/16 08:00 10/25/16 08:12 10/25/16 09:11 10/25/16 10:30 White Blood Count 12.6 H Red Blood Count 2.49 #L Hemoglobin 6.4 #*L Hematocrit 20.2 #L Mean Corpuscular Volume 81.1 L Mean Corpuscular Hemoglobin 25.7 L Mean Corpuscular Hemoglobin Concent 31.7 L Red Cell Distribution Width 16.5 H Platelet Count 186 # Mean Platelet Volume 14.1 #H Neutrophils % 81.0 H Band Neutrophils % 4.0 Lymphocytes % 11.0 L Monocytes % 4.0 Neutrophils # 10.2 H Lymphocytes # 1.4 Monocytes # 0.5 Differential Comment MANUAL DIFF Large Platelets OCCASIONAL Prothrombin Time 15.4 H Prothrombin Time Ratio 1.2 INR International Normalized Ratio 1.21 Activated Partial Thromboplast Time 29.1 Sodium Level 132 L Potassium Level 6.0 H Chloride Level 100 Carbon Dioxide Level 20 L Anion Gap 18 H Blood Urea Nitrogen 213 H Creatinine 2.59 H Glucose Level 207 Lactic Acid Level 2.3 H 0.9 Calcium Level 7.2 L Total Bilirubin 0.1 L Direct Bilirubin 0.10 Indirect Bilirubin 0.0 Aspartate Amino Transf (AST/SGOT) 59 H Alanine Aminotransferase (ALT/SGPT) 26 Alkaline Phosphatase 168 H Troponin I 0.152 *H Total Protein 6.4 Albumin 2.8 L Globulin 3.60 H Albumin/Globulin Ratio 0.77 Thyroid Stimulating Hormone (TSH) 0.375 L Free Thyroxine 2.92 H Digoxin Level 3.0 *H Bedside Glucose 241 H Stool Occult Blood POSITIVE Test 10/25/16 10:50 10/25/16 11:00 10/25/16 11:15 Hemoglobin 5.8 *L Hematocrit 19.4 L B-Type Natriuretic Peptide 23016 H Urine Color LT. YELLOW Urine Clarity CLEAR Urine pH 5.0 Urine Specific [place] <=1.005 L Urine Ketones NEGATIVE Urine Nitrite NEGATIVE Urine Bilirubin NEGATIVE Urine Urobilinogen 0.2 E.U./dL Urine Leukocyte Esterase 3+ H Urine Microscopic RBC 2-5 Urine Microscopic WBC >50 Urine Bacteria MANY Urine Yeast MODERATE Urine Hemoglobin 1+ H Urine Glucose NEGATIVE Urine Total Protein TRACE Lactic Acid Level 0.8 Medications Medications Current Medications Dextrose (D50w Syringe) 50 ml ONCE PRN IV POC BLOOD GLUCOSE <250 MG/DL; Start 10/25/16 at 11:00 Ondansetron HCl (Zofran Inj) 4 mg Q6H PRN IV NAUSEA AND/OR VOMITING; Start 10/25 at 11:00 Nitroglycerin (Nitroglycerin (Sl Tab) 0.4 Mg) 1 tab Q5M PRN SL CHEST PAIN; Start 10/25/16 at 11:00 Acetaminophen (Tylenol Tab) 650 mg Q6H PRN PO PAIN LEVEL 1-3 OR FEVER; Start at 11:00 Acetaminophen (Tylenol Supp) 650 mg Q4H PRN [place] PAIN LEVEL 1-3 OR FEVER; Start 10/25/16 at 11:00 Docusate Sodium (Colace) 100 mg Q12H PRN PO CONSTIPATION; Start 10/25/16 at 11: 00 Bisacodyl (Dulcolax Supp) 10 mg DAILY PRN [place] CONSTIPATION; Start 10/25/16 at 11: 00 Pantoprazole (Protonix Iv) 40 mg DAILY@06 IV ; Start 10/26/16 at 06:00 Amiodarone HCl (Cordarone) 400 mg BID GTB ; Start 10/25/16 at 21:00 Ascorbic Acid (Vitamin C) 500 mg DAILY GTB ; Start 10/26/16 at 09:00 Chlorhexidine Gluconate (Peridex) 15 ml Q12 MM ; Start 10/25/16 at 21:00 Collagenase (Santyl) 1 applic DAILY TOP ; Start 10/26/16 at 09:00 Digoxin (Digoxin) 0.125 mg DAILY@13 GTB ; Start 10/25/16 at 13:00; Status Future Hold Ferrous Sulfate (Ferrous Sulfate) 330 mg DAILY GTB ; Start 10/26/16 at 09:00; Status UNV Multivitamins Therapeutic (Theragran) 1 tab DAILY GTB ; Start 10/26/16 at 09:00 Miscellaneous Information 1 pkt BID GTB ; Start 10/25/16 at 21:00; Status UNV Miscellaneous Information 3,875 mg BID GTB ; Start 10/25/16 at 21:00; Status UNV Miscellaneous Information 160 mg 160 mg DAILY GTB ; Start 10/26/16 at 09:00; Status UNV Dextrose/Sodium Chloride 1,000 ml @ 75 mls/hr [id number] IV ; Start 10/25/16 at 15: 30 Sodium Chloride 1,000 ml @ 1,000 mls/hr Q1H IV ; Start 10/25/16 at 13:30; Stop 10/25/16 at 15:29 Dobutamine HCl/ Dextrose 250 ml @ 12 mls/hr TITRATE IV ; Start 10/25/16 at 11:30 ; Status UNV Aztreonam/Sodium Chloride (Azactam/NS) 100 ml @ 100 mls/hr Q8 IVPB ; Start 10/25 at 14:00; Status UNV IV Flush (NS 10 ml) 10 ml PRN PRN IV IV PROTOCOL; Start 10/25/16 at 11:30 Atorvastatin Calcium (Lipitor) 20 mg HS PO ; Start 10/25/16 at 21:00 JORGE ROBLES Oct 25, 2016 13:39
[2016-10-25 13:42] LABS: INR 1.43; PROTIME 17.5 Sec (12.2-14.2); PT RATIO 1.4
[2016-10-25 13:43] LABS: PARTIAL THROMBOPLASTIN TIME 29.2 Sec (25.0-35.0)
[2016-10-25 13:45] LABS: HEMOGLOBIN 5.6 g/dl (14.0-18.0)
[2016-10-25 13:55] LABS: TROPONIN-I 0.139 ng/ml (0.00-0.12)
[2016-10-25] MEDS: SOD CHLORIDE 0.9% 1,000 ML IV SCH ×2 (14:13→14:30)
[2016-10-25] MEDS: DEXTROSE 5%-0.9% NACL 1,000 ML IV SCH ×2 (14:35→22:59)
--- NOTE | 2016-10-25 15:18 | HP ---
DATE OF ADMISSION: 10/25/2016 CONSULTANTS: 1. Dr. Ervin Ceja 2. Dr. Min Degroot 3. Dr. Chen, infectious disease. A great amount of information was obtained from the ER note and the patient's old records. The [facility] ent is not able to provide me with any information. 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 HISTORY OF PRESENT ILLNESS: This is a 76-year-old gentleman with past medical history of CVA, diabe jinny mellitus type 2, COPD, respiratory failure, status post tracheostomy, dysphagia, status post PEG tube placement, hypertension, peptic ulcer disease, BPH, coronary artery disease, arrhythmia, anemi a, and dyslipidemia who resides at [facility], and was found to be severely hypotensive. The patient was found today in bed with low blood p ressure. Normal saline fluid bolus was initiated. Paramedics were called. The patient was transpo rted to the emergency room for further evaluation. According to the nurses at the [facility], he was in usual state of health without any obvious distress yesterday. No shortness of br eath or cough, no vomiting, no diarrhea, no change in mental status, although at this time, the [facility] ent has worsening of his mental status compared to his previous hospitalization last month. Upon ev aluation in the ER, the patient was found to have temperature of 100.9, pulse 86, respirations 16, b lood pressure 84/46, oxygen saturation 98% on FIO2 of 50%. He was treated with Tylenol, cefepime, n ormal saline, 2.5 liter, Vancomycin, Protonix, albuterol, and insulin. The patient was found to be severely anemic with hemoglobin 6.4, hematocrit 20.2, platelets 186. His BUN was found to be 213, c reatinine 2.59. Lactic acid 2.3. Troponin 0.152. At this time, the patient is not able to provide me any information. He continues to be hypotensive and encephalopathic, not able to respond to any of my questions and is not able to follow commands. PAST MEDICAL AND SURGICAL HISTORY: As above per HPI. MEDICATIONS: 1. Tylenol. 2. Albuterol sulfate. 3. Amiodarone. 4. Vitamin C. 5. Aspirin. 6. Lipitor. 7. Peridex. 8. Santyl. 9. liquid. 10. Digoxin 11. Cardizem. 12. Colace. 13. Fenofibrate. 14. Ferrous sulfate. 15. Lactobacillus. 16. Levaquin. 17. Milk of magnesia. 18. Multivitamin. 19. Enema. 20. Omeprazole. ALLERGIES: NO KNOWN DRUG ALLERGY. FAMILY HISTORY: Noncontributory. SOCIAL HISTORY: He resides at a longterm facility and is dependent on others for his daily a ctivity. Substance abuse, unknown if he ever smoked. REVIEW OF SYSTEMS: Not obtainable secondary to patient's mental status. PHYSICAL EXAMINATION: VITAL SIGNS: At this time, temperature 98.1, pulse 71, respiration 18, blood pressure 84/48, oxygen saturation 100%, FiO2 50%. GENERAL APPEARANCE: The patient is lying in the bed on the vent via trach. Minimal response to zain n and verbal stimuli. EYES AND ENT: Conjunctivae and lids are normal. Pupils are normal. Extraocular normal. Oral muco sa is severely dry. NECK: Supple. There is a trach in place. CARDIOVASCULAR: Normal S1, S2. Irregular rhythm, regular rate. No murmur. Positive 1 bilateral l ower extremity edema. LUNGS: Decreased breath sounds bilateral lower lung may. No crackles, no rales. ABDOMEN: Soft, nontender, not distended. PEG tube in place. GENITOURINARY: There is a Ferreira in place. Otherwise, normal external genitalia. MUSCULOSKELETAL: Upper and lower extremities within normal limits. No deformity. Positive 1 edema . NEUROLOGIC: The patient is awake but not able to follow commands. LABORATORY WORK AND IMAGING: Sodium 132, potassium 6.0, chloride 100, bicarbonate 20, BUN 213, crea tinine 2.59, anion gap 18, glucose 241. Lactic acid 2.3, calcium 7.2, total bilirubin 0.1, AST 59, ALT 26, alkaline phosphatase 168. Troponin 0.152. TSH 0.375, free T4 2.98, albumin 2.8. WBC 12.6, hemoglobin 6.4, hematocrit 20.2, platelets 186. Chest x-ray showed interval decreased congestion a nd edema with persistent bibasilar atelectasis. ASSESSMENT AND PLAN: 1. Sepsis, likely secondary to urinary tract infection with +3 leukocyte esterase, WBC greater than 50, many bacteria. The patient has been started on Zosyn and ____. Infectious disease doctor has been consulted. 2. Ventilator-dependent respiratory failure. Continue vent management by chairman emeritus. 3. Non-ST myocardial infarction with elevated troponin, likely demand ischemia secondary to anemia. Cardiology has been consulted. 4. Anemia, unknown source. Follow up guaiac. The patient has been placed on IV PPI. The patient has been typed and screened. We will transfuse 2 units of packed red blood cell. 5. Severe dehydration, likely secondary to anemia. The patient has been typed and crossed and whitney sfused 2 units of packed red blood cells and IV fluid. Follow renal panel. 6. Acute renal insufficiency. Nephrology has been consulted. 7. Elevated glucose level. Follow hemoglobin A1c. Place the patient on insulin sliding scale. 8. History of essential hypertension. At this time, the patient is hypotensive secondary to septic shock. Hold all blood pressure medication. 9. Dyslipidemia, on statin. CONDITION: Poor and critical. We will continue to monitor patient closely. Further recommendations, management, and treatment as per clinical course. Dictated By: DILIP MITCHELL/GENOVEVA Conf#: [id number] DID#: [id number]
[2016-10-25] MEDS: AZTREONAM 2 GM in SOD CHLORIDE 0.9% 100 ML IVPB SCH (15:57)
--- NOTE | 2016-10-25 16:39 | CONS ---
DATE OF ADMISSION: 10/25/2016 DATE OF CONSULTATION: 10/25/2016 TYPE OF CONSULTATION: Infectious Disease. REASON FOR CONSULTATION: Antibiotic management. HISTORY OF PRESENT ILLNESS: Mr. Blackwood is a 76-year-old [place]istanian [place]ian male who comes in with hypotension and fever and is being seen for antibiotic management. The patient has a past history of: 1. History of cerebrovascular accident. 2. Adult-onset diabetes mellitus. 3. Chronic obstructive pulmonary disease. 4. Respiratory failure, status post tracheostomy. 5. Dysphagia, status post G-tube placement. 6. Hypertension. 7. Peptic ulcer disease. 8. Benign prostatic hypertrophy. 9. Coronary artery disease. Acutely, the patient is brought in from [facility] with hypotension. He was g iven a saline bolus and transported to the emergency room. On admission, his white count was 11.9, H and H of 5.6 and 18.1, very anemic. Platelet count 119,000. BUN and creatinine 187/2.40, glucose of 224. The patient was started on aztreonam. He received a dose of vancomycin and cefepime and a lso aztreonam. He had a PICC line that was placed. He has bibasilar interstitial edema versus atel ectasis. He has a tracheostomy, left upper extremity PICC line, mild cardiomegaly. The patient was seen in consultation also by Dr. Degroot and Dr. Ceja. Dr. Degroot, from pulmonary, chest x-ray was clear. The patient admitted with anemia, multiple episodes of sepsis in the past, and also UTI. PAST MEDICAL HISTORY: Operations as outlined. FAMILY HISTORY: Noncontributory. SOCIAL HISTORY: He smoked in the past. He does not drink or abuse drugs. ALLERGIES: NONE TO PENICILLIN, SULFA, OR FOODS. MEDICATIONS: Per chart. REVIEW OF SYSTEMS: Noncontributory. PHYSICAL EXAMINATION: GENERAL: The patient is a chronically ill-appearing male who is in moderate to severe distress. VITAL SIGNS: Stable with T-max of 100.9. SKIN: Without generalized rash. HEENT: Within normal limits. NECK: Tracheostomy site is clean without erythema, induration, or drainage. CHEST: Decreased breath sounds at the bases. HEART: Without murmur or gallop. ABDOMEN: Soft, nontender, without organosplenomegaly or masses. G-tube in place which is also johny n. EXTREMITIES: Without cyanosis, clubbing, or edema. RECTAL AND GENITAL: Deferred. NEUROLOGIC: No focal neurological abnormality. His laboratory data shows a BUN and creatinine of 1 87 and 2.4, significant for renal failure. He has 3+ leukocyte esterase, greater than 50 white cell s per high-power field. IMPRESSION AND PLAN: Mr. Blackwood comes in now with urinary tract infections and with septic shock . He received vancomycin and cefepime which should be continued. I will dictate my findings. Bloo d cultures are pending. C. difficile is pending. MRSA urine cultures are pending. I will dictate my findings to the hospitalist. Dictated By: VEGA BRUNER MD, JD/GENOVEVA Conf#: [id number] DID#: [id number]
[2016-10-25] MEDS: DOBUTamine/D5W 1 MG/ML DRIP 250 ML IV SCH ×2 (17:01→23:01)
--- NOTE | 2016-10-25 20:29 | CONS ---
Date/Time of Note Date/Time of Note DATE: 10/25/16 TIME: 20:28 Assessment/Plan Assessment/Plan Additional Assessment/Plan 76 yo Male with 1) Septic Shock 2nd to UTI 2) Severe Anemia 3) THEO on likely CKD, Pre-Renal Azotemia 4) Hyperkalemia- Resolved 5) Metabolic Acidosis 6) VDRF, S/p Tracheostomy 7) Dysphagia, S/p PEG S/p Aggressive IVFs in ER Planned for PRBC, repeat H/Hct and Chemistry after transfusion. As patients BUN/Cr are improving with Fluids, Non Oliguric and Hyperkalemia has resolved, there is no emergent indication for Dialysis at this time Will cont to closely monitor electrolytes, ACID/Base/Volume Status and renal function closely. If acidosis is persistent then will start Bicitra through Gtube. Would appreciate ABG if worsening. Thank you for the opportunity to participate in the care of Mr Blackwood. Consultation Date/Type/Reason Admit Date/Time Date of Consultation: Oct 25, 2016 Type of Consultation: Nephrology Reason for Consultation THEO Referring Provider: DILIP ARELLANO MD Hx of Present Illness 76-year-old male history of CVA, Diabetes mellitus type 2, or COPD, Chronic respiratory failure S/p Tracheostomy, history of dysphagia S/P PEG tube Essential hypertension, history BPH and ASHD who was BIBEMS from [facility] for evaluation of sepsis. In the emergency department was for to be hypotensive and with severe anemia, S/p aggressive IVFs with plan for PRBC later today. Urinalysis revealed UTI. History is limited due to patient condition. Nephrology is consulted for THEO, elevated BUN /Cr. Pt is making urine output and has thapa catheter placed. Past Medical History Medical History: diabetes, hypertension, renal disease Past Surgical History Past Surgical Hx: other (as above) Family History Significant Family History: no pertinent family hx Social History Alcohol Use: none Smoking Status: Unknown if ever smoked Drug Use: none Exam/Review of Systems Vital Signs Vitals Vital Signs Date Time Temp Pulse Resp B/P Pulse Ox O2 Delivery O2 Flow Rate FiO2 10/25/16 18:47 98.6 82 18 84/47 100 Mechanical Ventilator 10/25/16 17:00 50 Exam Constitutional: No distress Eyes: EOMI ENMT: mucosa pink and moist, other (Trach) Neck: No jvd Respiratory: crackles/rales, other (Vent), No diminished breath sounds Cardiovascular: edema, regular rate and rhythm Gastrointestinal: non-tender, soft, No distended Extremities: pitting pedal edema Neurological: other (Arousable) Results Result Diagram: 10/25/16 1310 10/25/16 1310 Results 24 hrs Laboratory Tests Test 10/25/16 08:00 10/25/16 08:12 10/25/16 09:11 10/25/16 10:30 White Blood Count 12.6 H Red Blood Count 2.49 #L Hemoglobin 6.4 #*L Hematocrit 20.2 #L Mean Corpuscular Volume 81.1 L Mean Corpuscular Hemoglobin 25.7 L Mean Corpuscular Hemoglobin Concent 31.7 L Red Cell Distribution Width 16.5 H Platelet Count 186 # Mean Platelet Volume 14.1 #H Neutrophils % 81.0 H Band Neutrophils % 4.0 Lymphocytes % 11.0 L Monocytes % 4.0 Neutrophils # 10.2 H Lymphocytes # 1.4 Monocytes # 0.5 Differential Comment MANUAL DIFF Large Platelets OCCASIONAL Prothrombin Time 15.4 H Prothrombin Time Ratio 1.2 INR International Normalized Ratio 1.21 Activated Partial Thromboplast Time 29.1 Sodium Level 132 L Potassium Level 6.0 H Chloride Level 100 Carbon Dioxide Level 20 L Anion Gap 18 H Blood Urea Nitrogen 213 H Creatinine 2.59 H Glucose Level 207 Lactic Acid Level 2.3 H 0.9 Calcium Level 7.2 L Total Bilirubin 0.1 L Direct Bilirubin 0.10 Indirect Bilirubin 0.0 Aspartate Amino Transf (AST/SGOT) 59 H Alanine Aminotransferase (ALT/SGPT) 26 Alkaline Phosphatase 168 H Troponin I 0.152 *H Total Protein 6.4 Albumin 2.8 L Globulin 3.60 H Albumin/Globulin Ratio 0.77 Thyroid Stimulating Hormone (TSH) 0.375 L Free Thyroxine 2.92 H Digoxin Level 3.0 *H Bedside Glucose 241 H Stool Occult Blood POSITIVE Test 10/25/16 10:50 10/25/16 11:00 10/25/16 11:15 10/25/16 13:10 Hemoglobin 5.8 *L 5.6 *L Hematocrit 19.4 L 18.1 L B-Type Natriuretic Peptide 04291 H Urine Color LT. YELLOW Urine Clarity CLEAR Urine pH 5.0 Urine Specific [place] <=1.005 L Urine Ketones NEGATIVE Urine Nitrite NEGATIVE Urine Bilirubin NEGATIVE Urine Urobilinogen 0.2 E.U./dL Urine Leukocyte Esterase 3+ H Urine Microscopic RBC 2-5 Urine Microscopic WBC >50 Urine Bacteria MANY Urine Yeast MODERATE Urine Hemoglobin 1+ H Urine Glucose NEGATIVE Urine Total Protein TRACE Lactic Acid Level 0.8 0.7 White Blood Count 11.9 H Red Blood Count 2.14 L Mean Corpuscular Volume 84.6 Mean Corpuscular Hemoglobin 26.2 L Mean Corpuscular Hemoglobin Concent 30.9 L Red Cell Distribution Width 16.4 H Platelet Count 119 #L Mean Platelet Volume 13.7 H Neutrophils % 76.2 Lymphocytes % 17.4 Monocytes % 6.0 Eosinophils % 0.0 Basophils % 0.0 Nucleated Red Blood Cells % 0.0 Neutrophils # 9.1 H Lymphocytes # 2.1 Monocytes # 0.7 Eosinophils # 0.0 Basophils # 0.0 Nucleated Red Blood Cells # 0.0 Prothrombin Time 17.5 H Prothrombin Time Ratio 1.4 INR International Normalized Ratio 1.43 Activated Partial Thromboplast Time 29.2 Sodium Level 138 Potassium Level 4.4 Chloride Level 106 Carbon Dioxide Level 19 L Anion Gap 17 H Blood Urea Nitrogen 187 H Creatinine 2.40 H Glucose Level 224 H Calcium Level 6.3 L Total Bilirubin 0.1 L Direct Bilirubin 0.10 Indirect Bilirubin 0.0 Aspartate Amino Transf (AST/SGOT) 50 H Alanine Aminotransferase (ALT/SGPT) 32 Alkaline Phosphatase 141 H Lactate Dehydrogenase 590 Troponin I 0.139 *H Total Protein 5.6 L Albumin 2.3 L Globulin 3.30 H Albumin/Globulin Ratio 0.69 Test 10/25/16 14:24 Bedside Glucose 222 H Medications Medications Current Medications Dextrose (D50w Syringe) 50 ml ONCE PRN IV POC BLOOD GLUCOSE <250 MG/DL; Start 10/25/16 at 11:00 Ondansetron HCl (Zofran Inj) 4 mg Q6H PRN IV NAUSEA AND/OR VOMITING; Start 10/25 at 11:00 Nitroglycerin (Nitroglycerin (Sl Tab) 0.4 Mg) 1 tab Q5M PRN SL CHEST PAIN; Start 10/25/16 at 11:00 Acetaminophen (Tylenol Tab) 650 mg Q6H PRN PO PAIN LEVEL 1-3 OR FEVER; Start at 11:00 Acetaminophen (Tylenol Supp) 650 mg Q4H PRN [place] PAIN LEVEL 1-3 OR FEVER; Start 10/25/16 at 11:00 Docusate Sodium (Colace) 100 mg Q12H PRN PO CONSTIPATION; Start 10/25/16 at 11: 00 Bisacodyl (Dulcolax Supp) 10 mg DAILY PRN [place] CONSTIPATION; Start 10/25/16 at 11: 00 Amiodarone HCl (Cordarone) 400 mg BID GTB ; Start 10/25/16 at 21:00 Ascorbic Acid (Vitamin C) 500 mg DAILY GTB ; Start 10/26/16 at 09:00 Chlorhexidine Gluconate (Peridex) 15 ml Q12 MM ; Start 10/25/16 at 21:00 Collagenase (Santyl) 1 applic DAILY TOP ; Start 10/26/16 at 09:00 Ferrous Sulfate (Ferrous Sulfate) 330 mg DAILY GTB ; Start 10/26/16 at 09:00 Multivitamins Therapeutic (Theragran) 1 tab DAILY GTB ; Start 10/26/16 at 09:00 Lactobacillus Acidoph/Bulgaricus (Floranex) 1 tab BID PO ; Start 10/25/16 at 21: 00 Fenofibrate 145 mg 145 mg DAILY PO ; Start 10/26/16 at 09:00 Dextrose/Sodium Chloride 1,000 ml @ 75 mls/hr [id number] IV Last administered on 10/25/16 14:35; Admin Dose 75 MLS/HR; Start 10/25/16 at 15:30 Dobutamine HCl/ Dextrose 250 ml @ 12 mls/hr TITRATE IV Last administered on 17:01; Admin Dose 12 MLS/HR; Start 10/25/16 at 11:30 Aztreonam/Sodium Chloride (Azactam/NS) 100 ml @ 100 mls/hr Q8 IVPB Last administered on 10/25/16 15:57; Admin Dose 100 MLS/HR; Start 10/25/16 at 14:00 IV Flush (NS 10 ml) 10 ml PRN PRN IV IV PROTOCOL; Start 10/25/16 at 11:30 Atorvastatin Calcium (Lipitor) 20 mg HS PO ; Start 10/25/16 at 21:00 Pantoprazole (Protonix Iv) 40 mg BID IV ; Start 10/25/16 at 21:00 Procedures Procedures PROCEDURE: XR Chest. CLINICAL INDICATION: Shortness of breath. TECHNIQUE: Single frontal view. COMPARISON: 09/30/2016. FINDINGS: The tracheostomy tube is in satisfactory A position. There is mild pulmonary edema, decreased compared to the prior exam. Mild bibasilar atelectasis persists. The lungs are otherwise clear. The heart size is normal. There is no pleural effusion. There is no pneumothorax. IMPRESSION: 1. Interval decreased congestion/edema. 2. Persistent bibasilar atelectasis. RPTAT: JJ Clau .Troy Almeida MD, MD Date Time Electronically viewed and signed by .Troy Almeida MD, MD on 10/25/2016 09:05 ODALIS REYNA MD Oct 25, 2016 20:29
[2016-10-25 20:51] LABS: ADD SCAN DIFF NO
[2016-10-25 20:53] LABS: ABNORMAL IP MESSAGE 1; HEMATOCRIT 23.9 % (42.0-52.0); HEMOGLOBIN 7.2 g/dl (14.0-18.0); MEAN CORPUSCULAR HEMOGLOBIN 25.8 pg (29.0-33.0); MEAN CORPUSCULAR HGB CONC 30.1 g/dl (32.0-37.0); MEAN CORPUSCULAR VOLUME 85.7 fl (82.0-101.0); MEAN PLATELET VOLUME 13.6 fl (7.4-10.4); PLATELET COUNT 99 10^3/UL (140-415); RED BLOOD COUNT 2.79 10^6/ul (4.70-6.10); WHITE BLOOD COUNT 10.3 10^3/ul (4.8-10.8)
[2016-10-25] MEDS ORDERED: NON-FORMULARY/PATIENT OWN MED (Cran/Vitc/Mannose/Inulin/Brom (Uti-Stat Liquid) 3,875 MG) GTB SCH (21:00)
[2016-10-25 21:52] LABS: POTASSIUM 3.8 mmol/L (3.5-5.1)
[2016-10-25 21:54] LABS: CREATININE 1.82 mg/dl (0.61-1.24)
[2016-10-25 22:00] LABS: CALCIUM 5.8 mg/dl (8.4-10.2)
[2016-10-25] MEDS: LACTOBACILLUS CHEW TAB PO SCH (22:59)
[2016-10-25] MEDS: CHLORHEXIDINE GLUCONATE 15 ML UD CUP MM SCH (22:59)
[2016-10-25] MEDS: AMIODARONE 200 MG TAB GTB SCH (22:59)
[2016-10-25] MEDS: ATORVASTATIN 20 MG TAB PO SCH (22:59)
[2016-10-25] MEDS: PANTOPRAZOLE 40 MG INJ IV SCH (22:59)
[2016-10-25 23:08] LABS: LYMPHOCYTES # 0.6 10^3/ul (0.8-2.9); MONOCYTE # 0.4 10^3/ul (0.3-0.9); NEUTROPHIL # 9.3 10^3/ul (1.6-7.5)
[2016-10-25 23:09] LABS: PLATELET ESTIMATE PLT APPEAR DECREASED
[2016-10-26] VITALS (89 sets, daily range): BP systolic 83–126; BP diastolic 42–62; PULSE 71–92; RESP 11–30
[2016-10-26] MEDS: AZTREONAM 2 GM in SOD CHLORIDE 0.9% 100 ML IVPB SCH ×2 (01:11→05:20)
[2016-10-26] MEDS: DOBUTamine/D5W 1 MG/ML DRIP 250 ML IV SCH ×4 (02:05→12:19)
[2016-10-26 03:27] LABS: ADD SCAN DIFF NO
[2016-10-26 03:31] LABS: BASOPHILS % 0.1 % (0.0-2.0); EOSINOPHILS % 0.1 % (0.0-7.0); HEMATOCRIT 24.7 % (42.0-52.0); HEMOGLOBIN 7.6 g/dl (14.0-18.0); LYMPHOCYTES # 0.8 10^3/ul (0.8-2.9); LYMPHOCYTES % 6.9 % (15.0-51.0); MEAN CORPUSCULAR HEMOGLOBIN 26.4 pg (29.0-33.0); MEAN CORPUSCULAR HGB CONC 30.8 g/dl (32.0-37.0); MEAN CORPUSCULAR VOLUME 85.8 fl (82.0-101.0); MEAN PLATELET VOLUME 13.7 fl (7.4-10.4); MONOCYTE # 0.5 10^3/ul (0.3-0.9); MONOCYTES % 4.8 % (0.0-11.0); NEUTROPHIL # 9.7 10^3/ul (1.6-7.5); NEUTROPHILS % 87.7 % (39.0-77.0); PLATELET COUNT 103 10^3/UL (140-415); RED BLOOD COUNT 2.88 10^6/ul (4.70-6.10); WHITE BLOOD COUNT 11.1 10^3/ul (4.8-10.8)
[2016-10-26 04:01] LABS: POTASSIUM 3.6 mmol/L (3.5-5.1)
[2016-10-26 04:04] LABS: CREATININE 1.66 mg/dl (0.61-1.24); IRON 17 ug/dl (35-150)
[2016-10-26 04:05] LABS: CALCIUM 6.2 mg/dl (8.4-10.2)
[2016-10-26 04:15] LABS: TOTAL IRON BINDING CAPACITY 217 ug/dl (241-421)
[2016-10-26] MEDS ORDERED: PANTOPRAZOLE 40 MG INJ IV SCH (06:00)
[2016-10-26] MEDS ORDERED: NORepinephrine 32 MG in DEXTROSE 5% 218 ML IV SCH (09:30)
[2016-10-26] MEDS ORDERED: GLUCOSE GEL 15 GRAM TUBE BUCCAL PRN (09:30)
[2016-10-26] MEDS ORDERED: GLUCOSE GEL 15 GRAM TUBE PO PRN ×2 (09:30)
[2016-10-26] MEDS ORDERED: GLUCAGON 1 MG INJ IM PRN (09:30)
[2016-10-26] MEDS ORDERED: DEXTROSE 50% 50 ML SYRINGE IV PRN (09:30)
[2016-10-26] MEDS: LACTOBACILLUS CHEW TAB PO SCH ×2 (09:44→20:27)
[2016-10-26] MEDS: MULTIVITAMINS THERAPEUTIC TAB GTB SCH (09:44)
[2016-10-26] MEDS: ASCORBIC ACID 500 MG TAB GTB SCH (09:45)
[2016-10-26] MEDS: FENOFIBRATE 145 MG TAB PO SCH (09:45)
[2016-10-26] MEDS: AMIODARONE 200 MG TAB GTB SCH ×2 (09:45→20:27)
[2016-10-26] MEDS: PANTOPRAZOLE 40 MG INJ IV SCH ×2 (09:46→20:27)
[2016-10-26] MEDS: FERROUS SULFATE 60 MG/ML 5ML CUP GTB SCH (09:46)
[2016-10-26] MEDS: COLLAGENASE 30 GM TUBE TOP SCH (09:46)
[2016-10-26] MEDS: CHLORHEXIDINE GLUCONATE 15 ML UD CUP MM SCH ×2 (09:46→20:27)
--- NOTE | 2016-10-26 09:50 | CONS ---
Date/Time of Note Date/Time of Note DATE: 10/26/16 TIME: 09:48 Consult Date/Type/Reason Admit Date/Time Oct 25, 2016 at 10:54 Initial Consult Date 10/25/16 Type of Consultation: pulmonary intensive care Ordering Provider: DILIP ARELLANO MD Subjective Patient remains somnolent on mechanical ventilation Continues vasopressors Neurologically unchanged Objective Vital Signs Date Time Temp Pulse Resp B/P Pulse Ox O2 Delivery O2 Flow Rate FiO2 10/26/16 09:08 87 18 100 35 10/26/16 08:45 102/48 Mechanical Ventilator 10/26/16 08:00 98.2 Intake and Output 10/25/16 10/25/16 10/26/16 15:00 23:00 07:00 Intake Total 50 ml 1318.4 ml Output Total 500 ml 1570 ml Balance -450 ml -251.6 ml Exam PHYSICAL EXAMINATION GENERAL: Elderly gentleman, tracheostomy on mechanical ventilation, opens eyes. VITAL SIGNS: see below. HEENT: Pupils equal, round, and reactive to light. Tracheostomy site clean and intact. CARDIAC: S1, S2, 2/6 systolic ejection murmur CHEST: Diminished air entry bilaterally. ABDOMEN: Mildly distended. Bowel sounds present no guarding or rebound EXTREMITIES: No cyanosis, clubbing edema +2 NEUROLOGIC: Unable to assess Results/Medications Result Diagram: 10/26/16 0318 10/26/16 0318 Results 24 hrs Laboratory Tests Test 10/25/16 10:30 10/25/16 10:50 10/25/16 11:00 10/25/16 11:15 Lactic Acid Level 0.9 0.8 Hemoglobin 5.8 *L Hematocrit 19.4 L B-Type Natriuretic Peptide 66670 H Urine Color LT. YELLOW Urine Clarity CLEAR Urine pH 5.0 Urine Specific [place] <=1.005 L Urine Ketones NEGATIVE Urine Nitrite NEGATIVE Urine Bilirubin NEGATIVE Urine Urobilinogen 0.2 E.U./dL Urine Leukocyte Esterase 3+ H Urine Microscopic RBC 2-5 Urine Microscopic WBC >50 Urine Bacteria MANY Urine Yeast MODERATE Urine Hemoglobin 1+ H Urine Glucose NEGATIVE Urine Total Protein TRACE Test 10/25/16 13:10 10/25/16 14:24 10/25/16 20:45 10/25/16 21:35 White Blood Count 11.9 H 10.3 Red Blood Count 2.14 L 2.79 #L Hemoglobin 5.6 *L 7.2 #L Hematocrit 18.1 L 23.9 #L Mean Corpuscular Volume 84.6 85.7 Mean Corpuscular Hemoglobin 26.2 L 25.8 L Mean Corpuscular Hemoglobin Concent 30.9 L 30.1 L Red Cell Distribution Width 16.4 H 16.0 H Platelet Count 119 #L 99 L Mean Platelet Volume 13.7 H 13.6 H Neutrophils % 76.2 90.0 H Lymphocytes % 17.4 6.0 L Monocytes % 6.0 4.0 Eosinophils % 0.0 Basophils % 0.0 Nucleated Red Blood Cells % 0.0 Neutrophils # 9.1 H 9.3 H Lymphocytes # 2.1 0.6 L Monocytes # 0.7 0.4 Eosinophils # 0.0 Basophils # 0.0 Nucleated Red Blood Cells # 0.0 Prothrombin Time 17.5 H Prothrombin Time Ratio 1.4 INR International Normalized Ratio 1.43 Activated Partial Thromboplast Time 29.2 Sodium Level 138 138 Potassium Level 4.4 3.8 Chloride Level 106 115 H Carbon Dioxide Level 19 L 15 L Anion Gap 17 H 12 Blood Urea Nitrogen 187 H 151 H Creatinine 2.40 H 1.82 H Glucose Level 224 H 356 H Lactic Acid Level 0.7 Calcium Level 6.3 L 5.8 *L Total Bilirubin 0.1 L Direct Bilirubin 0.10 Indirect Bilirubin 0.0 Aspartate Amino Transf (AST/SGOT) 50 H Alanine Aminotransferase (ALT/SGPT) 32 Alkaline Phosphatase 141 H Lactate Dehydrogenase 590 Troponin I 0.139 *H Total Protein 5.6 L Albumin 2.3 L Globulin 3.30 H Albumin/Globulin Ratio 0.69 Bedside Glucose 222 H Platelet Estimate PLT APPEAR DECREASED Test 10/25/16 23:45 10/26/16 03:18 10/26/16 07:55 Lactic Acid Level 2.3 H 1.4 1.8 White Blood Count 11.1 H Red Blood Count 2.88 L Hemoglobin 7.6 L Hematocrit 24.7 L Mean Corpuscular Volume 85.8 Mean Corpuscular Hemoglobin 26.4 L Mean Corpuscular Hemoglobin Concent 30.8 L Red Cell Distribution Width 16.0 H Platelet Count 103 L Mean Platelet Volume 13.7 H Neutrophils % 87.7 H Lymphocytes % 6.9 L Monocytes % 4.8 Eosinophils % 0.1 Basophils % 0.1 Nucleated Red Blood Cells % 0.0 Neutrophils # 9.7 H Lymphocytes # 0.8 Monocytes # 0.5 Eosinophils # 0.0 Basophils # 0.0 Nucleated Red Blood Cells # 0.0 Sodium Level 139 Potassium Level 3.6 Chloride Level 115 H Carbon Dioxide Level 15 L Anion Gap 13 Blood Urea Nitrogen 142 H Creatinine 1.66 H Glucose Level 313 H Calcium Level 6.2 L Magnesium Level 3.0 H Iron Level 17 L Total Iron Binding Capacity 217 L Percent Iron Saturation 8 L Ferritin 2110.0 H Free Thyroxine 2.67 H Free Triiodothyronine (T3) pg/mL 3.42 Medications Current Medications Dextrose (D50w Syringe) 50 ml ONCE PRN IV POC BLOOD GLUCOSE <250 MG/DL; Start 10/25/16 at 11:00 Ondansetron HCl (Zofran Inj) 4 mg Q6H PRN IV NAUSEA AND/OR VOMITING; Start 10/25 at 11:00 Nitroglycerin (Nitroglycerin (Sl Tab) 0.4 Mg) 1 tab Q5M PRN SL CHEST PAIN; Start 10/25/16 at 11:00 Acetaminophen (Tylenol Tab) 650 mg Q6H PRN PO PAIN LEVEL 1-3 OR FEVER; Start at 11:00 Acetaminophen (Tylenol Supp) 650 mg Q4H PRN [place] PAIN LEVEL 1-3 OR FEVER; Start 10/25/16 at 11:00 Docusate Sodium (Colace) 100 mg Q12H PRN PO CONSTIPATION; Start 10/25/16 at 11: 00 Bisacodyl (Dulcolax Supp) 10 mg DAILY PRN [place] CONSTIPATION; Start 10/25/16 at 11: 00 Amiodarone HCl (Cordarone) 400 mg BID GTB Last administered on 10/26/16 09:45; Admin Dose 400 MG; Start 10/25/16 at 21:00 Ascorbic Acid (Vitamin C) 500 mg DAILY GTB Last administered on 10/26/16 09:45 ; Admin Dose 500 MG; Start 10/26/16 at 09:00 Chlorhexidine Gluconate (Peridex) 15 ml Q12 MM Last administered on 10/26/16 09 :46; Admin Dose 15 ML; Start 10/25/16 at 21:00 Collagenase (Santyl) 1 applic DAILY TOP Last administered on 10/26/16 09:46; Admin Dose 1 APPLIC; Start 10/26/16 at 09:00 Ferrous Sulfate (Feosol Liquid Cup) 330 mg DAILY GTB Last administered on 09:46; Admin Dose 330 MG; Start 10/26/16 at 09:00 Multivitamins Therapeutic (Theragran) 1 tab DAILY GTB Last administered on 09:44; Admin Dose 1 TAB; Start 10/26/16 at 09:00 Lactobacillus Acidoph/Bulgaricus (Floranex) 1 tab BID PO Last administered on 09:44; Admin Dose 1 TAB; Start 10/25/16 at 21:00 Fenofibrate 145 mg 145 mg DAILY PO Last administered on 10/26/16 09:45; Admin Dose 145 MG; Start 10/26/16 at 09:00 Dextrose/Sodium Chloride 1,000 ml @ 75 mls/hr [id number] IV Last administered on 10/25/16 22:59; Admin Dose 75 MLS/HR; Start 10/25/16 at 15:30 Dobutamine HCl/ Dextrose 250 ml @ 12 mls/hr TITRATE IV Last administered on 05:23; Admin Dose 96 MLS/HR; Start 10/25/16 at 11:30 Aztreonam/Sodium Chloride (Azactam/NS) 100 ml @ 100 mls/hr Q8 IVPB Last administered on 10/26/16 05:20; Admin Dose 100 MLS/HR; Start 10/25/16 at 14:00 IV Flush (NS 10 ml) 10 ml PRN PRN IV IV PROTOCOL; Start 10/25/16 at 11:30 Atorvastatin Calcium (Lipitor) 20 mg HS PO Last administered on 10/25/16 22:59 ; Admin Dose 20 MG; Start 10/25/16 at 21:00 Pantoprazole (Protonix Iv) 40 mg BID IV Last administered on 10/26/16 09:46; Admin Dose 40 MG; Start 10/25/16 at 21:00 Insulin Aspart NOVOLOG *MILD* ALGORI... Q4 SC ; Start 10/26/16 at 13:00 Norepinephrine/ Dextrose (Levophed/D5W) 250 ml @ 0.46 mls/hr TITRATE IV ; Start 10/26/16 at 09:30 Miscellaneous Information 1 ea NOTE XX ; Start 10/26/16 at 09:30 Glucose (Glutose) 15 gm Q15M PRN PO DECREASED GLUCOSE; Start 10/26/16 at 09:30 Glucose (Glutose) 22.5 gm Q15M PRN PO DECREASED GLUCOSE; Start 10/26/16 at 09:30 Dextrose (D50w Syringe) 25 ml Q15M PRN IV DECREASED GLUCOSE; Start 10/26/16 at 09:30 Dextrose (D50w Syringe) 50 ml Q15M PRN IV DECREASED GLUCOSE; Start 10/26/16 at 09:30 Glucagon (Glucagen) 1 mg Q15M PRN IM DECREASED GLUCOSE; Start 10/26/16 at 09:30 Glucose (Glutose) 15 gm Q15M PRN [place] DECREASED GLUCOSE; Start 10/26/16 at 09: 30 Assessment/Plan Chief Complaint/Hosp Course Assessment 1. Septic shock secondary to urinary tract infection cultures pending 2. Severe anemia possibly secondary to chronic disease with component of GI bleeding 3. Metabolic acidosis 4. Chronic renal insufficiency component of dehydration also 5. Vent dependent respiratory failure 6. Chronic encephalopathy 7. Dysphagia with G-tube Plan 1. Continue broad-spectrum antibiotics pending cultures 2. Continue mechanical ventilation 3. Continue to feeding as tolerated 4. Transfusion 1 unit packed red blood cells for hemodynamic support 5. DVT and GI prophylaxis 6. Consider discussion of CODE STATUS with family as overall prognosis very poor Disposition Continue ICU care until hemodynamically stable Stable for transfer to telemetry once off vasopressors Problems: MUNIR DESHPANDE MD, [facility] Oct 26, 2016 09:50
--- NOTE | 2016-10-26 10:01 | CONS ---
Date/Time of Note Date/Time of Note DATE: 10/26/16 TIME: 10:00 Assessment/Plan Assessment/Plan Additional Assessment/Plan 76 yo Male with 1) Septic Shock 2nd to UTI 2) Severe Anemia 3) THEO on likely CKD, Pre-Renal Azotemia 4) Hyperkalemia- Resolved 5) Metabolic Acidosis 6) VDRF, S/p Tracheostomy 7) Dysphagia, S/p PEG Bun/Cr cont to improve with IVFs Pt may benefit from another unit of PRBC Pressor Support as needed Will order Bicitra BID PEG for acidosis. Will Cont to monitor UO, Electrolytes and renal function Consultation Date/Type/Reason Admit Date/Time Oct 25, 2016 at 10:54 Initial Consult Date 10/25/16 Type of Consultation: Nephrology Reason for Consultation THEO Referring Provider: DILIP ARELLANO MD 24 HR Interval Summary Free Text/Dictation Pt is making urine output. Requires pressors due to hypotension. S/p PRBC and is currently receiving IVFs. Seen by Pulm and ID Consultants Subjective hx not possible: pt critical status Constitutional: requiring O2 (Vent) Exam/Review of Systems Vital Signs Vitals Vital Signs Date Time Temp Pulse Resp B/P Pulse Ox O2 Delivery O2 Flow Rate FiO2 10/26/16 09:08 87 18 100 35 10/26/16 08:45 102/48 Mechanical Ventilator 10/26/16 08:00 98.2 Intake and Output 10/25/16 10/25/16 10/26/16 15:00 23:00 07:00 Intake Total 50 ml 1318.4 ml Output Total 500 ml 1570 ml Balance -450 ml -251.6 ml Exam Eyes: EOMI Neck: No jvd Respiratory: crackles/rales, other (Vemt) Cardiovascular: edema, regular rate and rhythm Gastrointestinal: non-tender, soft, No distended Neurological: other (Responsive to verbal and tactile stimuli. ) Skin: No diaphoresis Results Result Diagram: 10/26/1631710/26/16317 Results 24 hrs Laboratory Tests Test 10/25/16 10:30 10/25/16 10:50 10/25/16 11:00 10/25/16 11:15 Lactic Acid Level 0.9 0.8 Hemoglobin 5.8 *L Hematocrit 19.4 L B-Type Natriuretic Peptide 86945 H Urine Color LT. YELLOW Urine Clarity CLEAR Urine pH 5.0 Urine Specific [place] <=1.005 L Urine Ketones NEGATIVE Urine Nitrite NEGATIVE Urine Bilirubin NEGATIVE Urine Urobilinogen 0.2 E.U./dL Urine Leukocyte Esterase 3+ H Urine Microscopic RBC 2-5 Urine Microscopic WBC >50 Urine Bacteria MANY Urine Yeast MODERATE Urine Hemoglobin 1+ H Urine Glucose NEGATIVE Urine Total Protein TRACE Test 10/25/16 13:10 10/25/16 14:24 10/25/16 20:45 10/25/16 21:35 White Blood Count 11.9 H 10.3 Red Blood Count 2.14 L 2.79 #L Hemoglobin 5.6 *L 7.2 #L Hematocrit 18.1 L 23.9 #L Mean Corpuscular Volume 84.6 85.7 Mean Corpuscular Hemoglobin 26.2 L 25.8 L Mean Corpuscular Hemoglobin Concent 30.9 L 30.1 L Red Cell Distribution Width 16.4 H 16.0 H Platelet Count 119 #L 99 L Mean Platelet Volume 13.7 H 13.6 H Neutrophils % 76.2 90.0 H Lymphocytes % 17.4 6.0 L Monocytes % 6.0 4.0 Eosinophils % 0.0 Basophils % 0.0 Nucleated Red Blood Cells % 0.0 Neutrophils # 9.1 H 9.3 H Lymphocytes # 2.1 0.6 L Monocytes # 0.7 0.4 Eosinophils # 0.0 Basophils # 0.0 Nucleated Red Blood Cells # 0.0 Prothrombin Time 17.5 H Prothrombin Time Ratio 1.4 INR International Normalized Ratio 1.43 Activated Partial Thromboplast Time 29.2 Sodium Level 138 138 Potassium Level 4.4 3.8 Chloride Level 106 115 H Carbon Dioxide Level 19 L 15 L Anion Gap 17 H 12 Blood Urea Nitrogen 187 H 151 H Creatinine 2.40 H 1.82 H Glucose Level 224 H 356 H Lactic Acid Level 0.7 Calcium Level 6.3 L 5.8 *L Total Bilirubin 0.1 L Direct Bilirubin 0.10 Indirect Bilirubin 0.0 Aspartate Amino Transf (AST/SGOT) 50 H Alanine Aminotransferase (ALT/SGPT) 32 Alkaline Phosphatase 141 H Lactate Dehydrogenase 590 Troponin I 0.139 *H Total Protein 5.6 L Albumin 2.3 L Globulin 3.30 H Albumin/Globulin Ratio 0.69 Bedside Glucose 222 H Platelet Estimate PLT APPEAR DECREASED Test 10/25/16 23:45 10/26/16 03:18 10/26/16 07:55 Lactic Acid Level 2.3 H 1.4 1.8 White Blood Count 11.1 H Red Blood Count 2.88 L Hemoglobin 7.6 L Hematocrit 24.7 L Mean Corpuscular Volume 85.8 Mean Corpuscular Hemoglobin 26.4 L Mean Corpuscular Hemoglobin Concent 30.8 L Red Cell Distribution Width 16.0 H Platelet Count 103 L Mean Platelet Volume 13.7 H Neutrophils % 87.7 H Lymphocytes % 6.9 L Monocytes % 4.8 Eosinophils % 0.1 Basophils % 0.1 Nucleated Red Blood Cells % 0.0 Neutrophils # 9.7 H Lymphocytes # 0.8 Monocytes # 0.5 Eosinophils # 0.0 Basophils # 0.0 Nucleated Red Blood Cells # 0.0 Sodium Level 139 Potassium Level 3.6 Chloride Level 115 H Carbon Dioxide Level 15 L Anion Gap 13 Blood Urea Nitrogen 142 H Creatinine 1.66 H Glucose Level 313 H Calcium Level 6.2 L Magnesium Level 3.0 H Iron Level 17 L Total Iron Binding Capacity 217 L Percent Iron Saturation 8 L Ferritin 2110.0 H Free Thyroxine 2.67 H Free Triiodothyronine (T3) pg/mL 3.42 Medications Medications Current Medications Dextrose (D50w Syringe) 50 ml ONCE PRN IV POC BLOOD GLUCOSE <250 MG/DL; Start 10/25/16 at 11:00 Ondansetron HCl (Zofran Inj) 4 mg Q6H PRN IV NAUSEA AND/OR VOMITING; Start 10/25 at 11:00 Nitroglycerin (Nitroglycerin (Sl Tab) 0.4 Mg) 1 tab Q5M PRN SL CHEST PAIN; Start 10/25/16 at 11:00 Acetaminophen (Tylenol Tab) 650 mg Q6H PRN PO PAIN LEVEL 1-3 OR FEVER; Start at 11:00 Acetaminophen (Tylenol Supp) 650 mg Q4H PRN [place] PAIN LEVEL 1-3 OR FEVER; Start 10/25/16 at 11:00 Docusate Sodium (Colace) 100 mg Q12H PRN PO CONSTIPATION; Start 10/25/16 at 11: 00 Bisacodyl (Dulcolax Supp) 10 mg DAILY PRN [place] CONSTIPATION; Start 10/25/16 at 11: 00 Amiodarone HCl (Cordarone) 400 mg BID GTB Last administered on 10/26/16 09:45; Admin Dose 400 MG; Start 10/25/16 at 21:00 Ascorbic Acid (Vitamin C) 500 mg DAILY GTB Last administered on 10/26/16 09:45 ; Admin Dose 500 MG; Start 10/26/16 at 09:00 Chlorhexidine Gluconate (Peridex) 15 ml Q12 MM Last administered on 10/26/16 09 :46; Admin Dose 15 ML; Start 10/25/16 at 21:00 Collagenase (Santyl) 1 applic DAILY TOP Last administered on 10/26/16 09:46; Admin Dose 1 APPLIC; Start 10/26/16 at 09:00 Ferrous Sulfate (Feosol Liquid Cup) 330 mg DAILY GTB Last administered on 09:46; Admin Dose 330 MG; Start 10/26/16 at 09:00 Multivitamins Therapeutic (Theragran) 1 tab DAILY GTB Last administered on 09:44; Admin Dose 1 TAB; Start 10/26/16 at 09:00 Lactobacillus Acidoph/Bulgaricus (Floranex) 1 tab BID PO Last administered on 09:44; Admin Dose 1 TAB; Start 10/25/16 at 21:00 Fenofibrate 145 mg 145 mg DAILY PO Last administered on 10/26/16 09:45; Admin Dose 145 MG; Start 10/26/16 at 09:00 Dextrose/Sodium Chloride 1,000 ml @ 75 mls/hr [id number] IV Last administered on 10/25/16 22:59; Admin Dose 75 MLS/HR; Start 10/25/16 at 15:30 Dobutamine HCl/ Dextrose 250 ml @ 12 mls/hr TITRATE IV Last administered on 05:23; Admin Dose 96 MLS/HR; Start 10/25/16 at 11:30 Aztreonam/Sodium Chloride (Azactam/NS) 100 ml @ 100 mls/hr Q8 IVPB Last administered on 10/26/16 05:20; Admin Dose 100 MLS/HR; Start 10/25/16 at 14:00 IV Flush (NS 10 ml) 10 ml PRN PRN IV IV PROTOCOL; Start 10/25/16 at 11:30 Atorvastatin Calcium (Lipitor) 20 mg HS PO Last administered on 10/25/16 22:59 ; Admin Dose 20 MG; Start 10/25/16 at 21:00 Pantoprazole (Protonix Iv) 40 mg BID IV Last administered on 10/26/16 09:46; Admin Dose 40 MG; Start 10/25/16 at 21:00 Insulin Aspart NOVOLOG *MILD* ALGORI... Q4 SC ; Start 10/26/16 at 13:00 Norepinephrine/ Dextrose (Levophed/D5W) 250 ml @ 0.46 mls/hr TITRATE IV ; Start 10/26/16 at 09:30 Miscellaneous Information 1 ea NOTE XX ; Start 10/26/16 at 09:30 Glucose (Glutose) 15 gm Q15M PRN PO DECREASED GLUCOSE; Start 10/26/16 at 09:30 Glucose (Glutose) 22.5 gm Q15M PRN PO DECREASED GLUCOSE; Start 10/26/16 at 09:30 Dextrose (D50w Syringe) 25 ml Q15M PRN IV DECREASED GLUCOSE; Start 10/26/16 at 09:30 Dextrose (D50w Syringe) 50 ml Q15M PRN IV DECREASED GLUCOSE; Start 10/26/16 at 09:30 Glucagon (Glucagen) 1 mg Q15M PRN IM DECREASED GLUCOSE; Start 10/26/16 at 09:30 Glucose (Glutose) 15 gm Q15M PRN BUCCAL DECREASED GLUCOSE; Start 10/26/16 at 09: 30 ODALIS REYNA MD Oct 26, 2016 10:01
--- NOTE | 2016-10-26 10:27 | PN ---
Date/Time of Note Date/Time of Note DATE: 10/26/16 TIME: 10:10 Assessment/Plan VTE Prophylaxis VTE Prophylaxis Intervention: other Lines/Catheters IV C[facility] Type ([facility] PICC Line Central line still needed: Yes Urinary Cath still in place: Yes Reason Cath still needed: other (indicate) Assessment/Plan Chief Complaint/Hosp Course ASSESSMENT AND PLAN: 1. Sepsis, likely secondary to urinary tract infection Continue Zosyn and Aztreonam. Infectious disease doctor has been consulted. 2. Ventilator-dependent respiratory failure. Continue vent management by [employer] professor. 3. Non-ST myocardial infarction with elevated troponin, likely demand ischemia secondary to anemia. Cardiology has been consulted. 4. Anemia, secondary to GI bleed positive guaiac. We will consult international logistics coordinator, continue IV PPI. Status post 2 units of packed red blood cell. Follow hemoglobin hematocrit 5. Severe dehydration, improving, status post 2 units of packed red blood cells and IV fluid. Follow renal panel. 6. Acute renal insufficiency. Secondary to #5 as above, nephrology has been consulted. 7. Diabetic mellitus . Place the patient on Lantus, continue insulin sliding scale. 8. History of essential hypertension. At this time, the patient is hypotensive secondary to septic shock. Hold all blood pressure medication. 9. Dyslipidemia, on statin. 10. GI bleed, gastroenterology been consulted continue IV PPI CONDITION: Poor and critical. We will continue to monitor patient closely. Further recommendations, management, and treatment as per clinical course. Critical time 40 minutes Problems: Subjective 24 Hr Interval Summary Free Text/Dictation Patient is more awake and alert Able to respond to verbal stimuli On pressors via dopamine On vent via trach Exam/Review of Systems Vital Signs Vitals Vital Signs Date Time Temp Pulse Resp B/P Pulse Ox O2 Delivery O2 Flow Rate FiO2 10/26/16 09:08 87 18 100 35 10/26/16 08:45 102/48 Mechanical Ventilator 10/26/16 08:00 98.2 Intake and Output 10/25/16 10/25/16 10/26/16 15:00 23:00 07:00 Intake Total 50 ml 1318.4 ml Output Total 500 ml 1570 ml Balance -450 ml -251.6 ml Exam General: The patient is not in acute distress. HEENT: Atraumatic, normocephalic. The pupils are equal and round . Patient also has bilateral earlobes Neck: Supple , trach in place Chest: Normal Lungs: Decreased breath sounds bilateral lower lung field with crackles Heart: Normal S1-S2, irregular regular Abdomen: Soft , nontender, nondistended , bowel sounds are present. PEG tube in place Extremities: Sacral decubitus with multiple lower extremity decubitus, no edema no cyanosis Neurologic: The patient is awake, alert Results Result Diagram: 10/26/16 0318 10/26/16 0318 Results 24 hrs Laboratory Tests Test 10/25/16 10:30 10/25/16 10:50 10/25/16 11:00 10/25/16 11:15 Lactic Acid Level 0.9 0.8 Hemoglobin 5.8 *L Hematocrit 19.4 L B-Type Natriuretic Peptide 95048 H Urine Color LT. YELLOW Urine Clarity CLEAR Urine pH 5.0 Urine Specific [place] <=1.005 L Urine Ketones NEGATIVE Urine Nitrite NEGATIVE Urine Bilirubin NEGATIVE Urine Urobilinogen 0.2 E.U./dL Urine Leukocyte Esterase 3+ H Urine Microscopic RBC 2-5 Urine Microscopic WBC >50 Urine Bacteria MANY Urine Yeast MODERATE Urine Hemoglobin 1+ H Urine Glucose NEGATIVE Urine Total Protein TRACE Test 10/25/16 13:10 10/25/16 14:24 10/25/16 20:45 10/25/16 21:35 White Blood Count 11.9 H 10.3 Red Blood Count 2.14 L 2.79 #L Hemoglobin 5.6 *L 7.2 #L Hematocrit 18.1 L 23.9 #L Mean Corpuscular Volume 84.6 85.7 Mean Corpuscular Hemoglobin 26.2 L 25.8 L Mean Corpuscular Hemoglobin Concent 30.9 L 30.1 L Red Cell Distribution Width 16.4 H 16.0 H Platelet Count 119 #L 99 L Mean Platelet Volume 13.7 H 13.6 H Neutrophils % 76.2 90.0 H Lymphocytes % 17.4 6.0 L Monocytes % 6.0 4.0 Eosinophils % 0.0 Basophils % 0.0 Nucleated Red Blood Cells % 0.0 Neutrophils # 9.1 H 9.3 H Lymphocytes # 2.1 0.6 L Monocytes # 0.7 0.4 Eosinophils # 0.0 Basophils # 0.0 Nucleated Red Blood Cells # 0.0 Prothrombin Time 17.5 H Prothrombin Time Ratio 1.4 INR International Normalized Ratio 1.43 Activated Partial Thromboplast Time 29.2 Sodium Level 138 138 Potassium Level 4.4 3.8 Chloride Level 106 115 H Carbon Dioxide Level 19 L 15 L Anion Gap 17 H 12 Blood Urea Nitrogen 187 H 151 H Creatinine 2.40 H 1.82 H Glucose Level 224 H 356 H Lactic Acid Level 0.7 Calcium Level 6.3 L 5.8 *L Total Bilirubin 0.1 L Direct Bilirubin 0.10 Indirect Bilirubin 0.0 Aspartate Amino Transf (AST/SGOT) 50 H Alanine Aminotransferase (ALT/SGPT) 32 Alkaline Phosphatase 141 H Lactate Dehydrogenase 590 Troponin I 0.139 *H Total Protein 5.6 L Albumin 2.3 L Globulin 3.30 H Albumin/Globulin Ratio 0.69 Bedside Glucose 222 H Platelet Estimate PLT APPEAR DECREASED Test 10/25/16 23:45 10/26/16 03:18 10/26/16 07:55 Lactic Acid Level 2.3 H 1.4 1.8 White Blood Count 11.1 H Red Blood Count 2.88 L Hemoglobin 7.6 L Hematocrit 24.7 L Mean Corpuscular Volume 85.8 Mean Corpuscular Hemoglobin 26.4 L Mean Corpuscular Hemoglobin Concent 30.8 L Red Cell Distribution Width 16.0 H Platelet Count 103 L Mean Platelet Volume 13.7 H Neutrophils % 87.7 H Lymphocytes % 6.9 L Monocytes % 4.8 Eosinophils % 0.1 Basophils % 0.1 Nucleated Red Blood Cells % 0.0 Neutrophils # 9.7 H Lymphocytes # 0.8 Monocytes # 0.5 Eosinophils # 0.0 Basophils # 0.0 Nucleated Red Blood Cells # 0.0 Sodium Level 139 Potassium Level 3.6 Chloride Level 115 H Carbon Dioxide Level 15 L Anion Gap 13 Blood Urea Nitrogen 142 H Creatinine 1.66 H Glucose Level 313 H Calcium Level 6.2 L Magnesium Level 3.0 H Iron Level 17 L Total Iron Binding Capacity 217 L Percent Iron Saturation 8 L Ferritin 2110.0 H Free Thyroxine 2.67 H Free Triiodothyronine (T3) pg/mL 3.42 Medications Medications Current Medications Dextrose (D50w Syringe) 50 ml ONCE PRN IV POC BLOOD GLUCOSE <250 MG/DL; Start 10/25/16 at 11:00 Ondansetron HCl (Zofran Inj) 4 mg Q6H PRN IV NAUSEA AND/OR VOMITING; Start 10/25 at 11:00 Nitroglycerin (Nitroglycerin (Sl Tab) 0.4 Mg) 1 tab Q5M PRN SL CHEST PAIN; Start 10/25/16 at 11:00 Acetaminophen (Tylenol Tab) 650 mg Q6H PRN PO PAIN LEVEL 1-3 OR FEVER; Start at 11:00 Acetaminophen (Tylenol Supp) 650 mg Q4H PRN [place] PAIN LEVEL 1-3 OR FEVER; Start 10/25/16 at 11:00 Docusate Sodium (Colace) 100 mg Q12H PRN PO CONSTIPATION; Start 10/25/16 at 11: 00 Bisacodyl (Dulcolax Supp) 10 mg DAILY PRN [place] CONSTIPATION; Start 10/25/16 at 11: 00 Amiodarone HCl (Cordarone) 400 mg BID GTB Last administered on 10/26/16 09:45; Admin Dose 400 MG; Start 10/25/16 at 21:00 Ascorbic Acid (Vitamin C) 500 mg DAILY GTB Last administered on 10/26/16 09:45 ; Admin Dose 500 MG; Start 10/26/16 at 09:00 Chlorhexidine Gluconate (Peridex) 15 ml Q12 MM Last administered on 10/26/16 09 :46; Admin Dose 15 ML; Start 10/25/16 at 21:00 Collagenase (Santyl) 1 applic DAILY TOP Last administered on 10/26/16 09:46; Admin Dose 1 APPLIC; Start 10/26/16 at 09:00 Ferrous Sulfate (Feosol Liquid Cup) 330 mg DAILY GTB Last administered on 09:46; Admin Dose 330 MG; Start 10/26/16 at 09:00 Multivitamins Therapeutic (Theragran) 1 tab DAILY GTB Last administered on 09:44; Admin Dose 1 TAB; Start 10/26/16 at 09:00 Lactobacillus Acidoph/Bulgaricus (Floranex) 1 tab BID PO Last administered on 09:44; Admin Dose 1 TAB; Start 10/25/16 at 21:00 Fenofibrate 145 mg 145 mg DAILY PO Last administered on 10/26/16 09:45; Admin Dose 145 MG; Start 10/26/16 at 09:00 Dextrose/Sodium Chloride 1,000 ml @ 75 mls/hr [id number] IV Last administered on 10/25/16 22:59; Admin Dose 75 MLS/HR; Start 10/25/16 at 15:30 Dobutamine HCl/ Dextrose 250 ml @ 12 mls/hr TITRATE IV Last administered on 05:23; Admin Dose 96 MLS/HR; Start 10/25/16 at 11:30 Aztreonam/Sodium Chloride (Azactam/NS) 100 ml @ 100 mls/hr Q8 IVPB Last administered on 10/26/16 05:20; Admin Dose 100 MLS/HR; Start 10/25/16 at 14:00 IV Flush (NS 10 ml) 10 ml PRN PRN IV IV PROTOCOL; Start 10/25/16 at 11:30 Atorvastatin Calcium (Lipitor) 20 mg HS PO Last administered on 10/25/16 22:59 ; Admin Dose 20 MG; Start 10/25/16 at 21:00 Pantoprazole (Protonix Iv) 40 mg BID IV Last administered on 10/26/16 09:46; Admin Dose 40 MG; Start 10/25/16 at 21:00 Insulin Aspart NOVOLOG *MILD* ALGORI... Q4 SC ; Start 10/26/16 at 13:00 Norepinephrine/ Dextrose (Levophed/D5W) 250 ml @ 0.46 mls/hr TITRATE IV ; Start 10/26/16 at 09:30 Miscellaneous Information 1 ea NOTE XX ; Start 10/26/16 at 09:30 Glucose (Glutose) 15 gm Q15M PRN PO DECREASED GLUCOSE; Start 10/26/16 at 09:30 Glucose (Glutose) 22.5 gm Q15M PRN PO DECREASED GLUCOSE; Start 10/26/16 at 09:30 Dextrose (D50w Syringe) 25 ml Q15M PRN IV DECREASED GLUCOSE; Start 10/26/16 at 09:30 Dextrose (D50w Syringe) 50 ml Q15M PRN IV DECREASED GLUCOSE; Start 10/26/16 at 09:30 Glucagon (Glucagen) 1 mg Q15M PRN IM DECREASED GLUCOSE; Start 10/26/16 at 09:30 Glucose (Glutose) 15 gm Q15M PRN BUCCAL DECREASED GLUCOSE; Start 10/26/16 at 09: 30 DILIP ARELLANO MD Oct 26, 2016 10:20
[2016-10-26] MEDS ORDERED: SOD CHLORIDE 0.45% 1,000 ML IV SCH (10:30)
[2016-10-26] MEDS: CITRIC ACID/NA CITRATE 30 ML CUP PO SCH ×2 (12:00→20:27)
[2016-10-26] MEDS ORDERED: VANCOMYCIN IV PER PHARMACY XX SCH (13:30)
--- NOTE | 2016-10-26 13:37 | PN ---
DATE: 10/26/2016 SUBJECTIVE: The patient is lying comfortably in bed. He is on dobutamine drip, afebrile. VITAL SIGNS: Temperature 97.8, pulse 89, respirations 22, blood pressure 106/50, saturation 100 on vent. WBC 11.1, H and H 7.6 and 24.7, platelets 103, neutrophils 87.7. BUN 142, creatinine 1.66. MICROBIOLOGY: Blood cultures growing gram-negative rods and gram-positive cocci in clusters. Urine culture growing gram-negative rods INDWELLINGS: PICC line placed yesterday. Ferreira, trach, PEG. DIAGNOSTICS: Chest x-ray revealed persistent bibasilar atelectasis. ANTIMICROBIALS: Aztreonam. PHYSICAL EXAMINATION: GENERAL: This is a chronically ill-appearing, elderly man who is in no distress. HEENT: Head atraumatic, normocephalic. Sclerae anicteric. Buccal mucosa dry. NECK: Supple. Tracheostomy present. CHEST: Rise symmetrical. Breath sounds diminished to bases. HEART: S1, S2. ABDOMEN: Soft, bowel tones present. EXTREMITIES: Without cyanosis. ASSESSMENT: 1. Septic shock. 2. Polymicrobial bacteremia, likely secondary to #2. 3. Gram-negative rods urinary tract infection. 4. Acute on chronic anemia. 5. Chronic respiratory failure. 6. Atrial fibrillation status post rapid ventricular response. 7. Diabetes. PLAN: We are going to change antibiotics to meropenem and add vancomycin to cover gram-positive jimbo ci that he is growing in his blood. Repeat blood cultures and await for final cultures. Follow rec ommendations of consultants. Dictated By: ADITYA CALLAHAN MAIL FORWARDING SYSTEM MARKUP CLERK for [employer] Conf#: [id number] DID#: [id number]
[2016-10-26] MEDS: INSULIN ASPART [NOVOLOG] 3 ML PEN SC SCH ×3 (13:57→20:31)
[2016-10-26] MEDS ORDERED: BISACODYL (EC) 5 MG TAB PO ONE (14:00)
--- NOTE | 2016-10-26 14:17 | CONS ---
Date/Time of Note Date/Time of Note DATE: 10/26/16 TIME: 13:43 Assessment/Plan Assessment/Plan Additional Assessment/Plan Assessment * Sepsis * Anemia GI bleed upper vs lower vs tumors vs others * Ventilator dependent respiratory failure * Decubitus ulcer sacral * Diabetes mellitus * History of Hypertension * Dyslipidemia Plan * continue pressors * monitor H and h Q6 and transfuse per protocol * EGD/Colonoscopy in 10/27/2016 family aware of the planned procedures,risks benefits explained to relatives ,agreed with the planned procedure * continue present management * continue ppi Consultation Date/Type/Reason Admit Date/Time Oct 25, 2016 at 10:54 Type of Consultation: gastroenterology Reason for Consultation anemia Referring Provider: DILIP ARELLANO MD Hx of Present Illness 76 year old male with with history of cva,dm, , chronic respiratory failure, trach to vent,s/p peg,hypertension,coronary artery disease,anemia,and multiple decubitus ulcer was brought to er because of hypotension and altered level of consciousness.He was found to be hypotensive at the [place] [facility] facility and subsequently transferred.upon examination at the er,he was hypotensive and altered level of consciousness Laboratory examination revealed hemoglobin 6.4, wbc 11.8,,bun 187,creatinine 2.4 and lactic acid 0.9 a total of 3 units of blood was tranfused.Presently ,no active bleeding,no nausea,no vomiting,,no blood per G tube,nor hematochezia.Patient presently on pressors with latest hemoglobin of 7.6 Subjective hx not possible: pt non-verbal Constitutional: requiring O2 (Vent) Past Medical History Medical History: diabetes, hypertension, renal disease Past Surgical History Past Surgical Hx: other (as above) Social History Alcohol Use: none Smoking Status: Unknown if ever smoked Drug Use: none Exam/Review of Systems Vital Signs Vitals Vital Signs Date Time Temp Pulse Resp B/P Pulse Ox O2 Delivery O2 Flow Rate FiO2 10/26/16 13:22 91 19 100 30 10/26/16 12:15 106/50 Mechanical Ventilator 10/26/16 12:00 97.8 Intake and Output 10/25/16 10/25/16 10/26/16 15:00 23:00 07:00 Intake Total 50 ml 1318.4 ml Output Total 500 ml 1570 ml Balance -450 ml -251.6 ml Exam Constitutional: frail Eyes: PERRL, nl sclera, other (pale conjunctiva) ENMT: other (trach to vent) Neck: supple Respiratory: diminished breath sounds, normal air movement Cardiovascular: nl pulses, regular rate and rhythm Gastrointestinal: bowel sounds, non-tender, other (g tube in placed), soft, No rebound or guarding Genitourinary - Male: other (thapa cathether) Musculoskeletal: muscle weakness Extremities: normal pulses Skin: other (multiple decubitus sacral) Lymph: nl lymph nodes Results Result Diagram: 10/26/1631710/26/16 0318 Results 24 hrs Laboratory Tests Test 10/25/16 14:24 10/25/16 20:45 10/25/16 21:35 10/25/16 23:45 Bedside Glucose 222 H White Blood Count 10.3 Red Blood Count 2.79 #L Hemoglobin 7.2 #L Hematocrit 23.9 #L Mean Corpuscular Volume 85.7 Mean Corpuscular Hemoglobin 25.8 L Mean Corpuscular Hemoglobin Concent 30.1 L Red Cell Distribution Width 16.0 H Platelet Count 99 L Mean Platelet Volume 13.6 H Neutrophils % 90.0 H Lymphocytes % 6.0 L Monocytes % 4.0 Neutrophils # 9.3 H Lymphocytes # 0.6 L Monocytes # 0.4 Platelet Estimate PLT APPEAR DECREASED Sodium Level 138 Potassium Level 3.8 Chloride Level 115 H Carbon Dioxide Level 15 L Anion Gap 12 Blood Urea Nitrogen 151 H Creatinine 1.82 H Glucose Level 356 H Calcium Level 5.8 *L Lactic Acid Level 2.3 H Test 10/26/16 03:18 10/26/16 07:55 White Blood Count 11.1 H Red Blood Count 2.88 L Hemoglobin 7.6 L Hematocrit 24.7 L Mean Corpuscular Volume 85.8 Mean Corpuscular Hemoglobin 26.4 L Mean Corpuscular Hemoglobin Concent 30.8 L Red Cell Distribution Width 16.0 H Platelet Count 103 L Mean Platelet Volume 13.7 H Neutrophils % 87.7 H Lymphocytes % 6.9 L Monocytes % 4.8 Eosinophils % 0.1 Basophils % 0.1 Nucleated Red Blood Cells % 0.0 Neutrophils # 9.7 H Lymphocytes # 0.8 Monocytes # 0.5 Eosinophils # 0.0 Basophils # 0.0 Nucleated Red Blood Cells # 0.0 Sodium Level 139 Potassium Level 3.6 Chloride Level 115 H Carbon Dioxide Level 15 L Anion Gap 13 Blood Urea Nitrogen 142 H Creatinine 1.66 H Glucose Level 313 H Lactic Acid Level 1.4 1.8 Calcium Level 6.2 L Magnesium Level 3.0 H Iron Level 17 L Total Iron Binding Capacity 217 L Percent Iron Saturation 8 L Ferritin 2110.0 H Free Thyroxine 2.67 H Free Triiodothyronine (T3) pg/mL 3.42 Medications Medications Current Medications Dextrose (D50w Syringe) 50 ml ONCE PRN IV POC BLOOD GLUCOSE <250 MG/DL; Start 10/25/16 at 11:00 Ondansetron HCl (Zofran Inj) 4 mg Q6H PRN IV NAUSEA AND/OR VOMITING; Start 10/25 at 11:00 Nitroglycerin (Nitroglycerin (Sl Tab) 0.4 Mg) 1 tab Q5M PRN SL CHEST PAIN; Start 10/25/16 at 11:00 Acetaminophen (Tylenol Tab) 650 mg Q6H PRN PO PAIN LEVEL 1-3 OR FEVER; Start at 11:00 Acetaminophen (Tylenol Supp) 650 mg Q4H PRN [place] PAIN LEVEL 1-3 OR FEVER; Start 10/25/16 at 11:00 Docusate Sodium (Colace) 100 mg Q12H PRN PO CONSTIPATION; Start 10/25/16 at 11: 00 Bisacodyl (Dulcolax Supp) 10 mg DAILY PRN [place] CONSTIPATION; Start 10/25/16 at 11: 00 Amiodarone HCl (Cordarone) 400 mg BID GTB Last administered on 10/26/16 09:45; Admin Dose 400 MG; Start 10/25/16 at 21:00 Ascorbic Acid (Vitamin C) 500 mg DAILY GTB Last administered on 10/26/16 09:45 ; Admin Dose 500 MG; Start 10/26/16 at 09:00 Chlorhexidine Gluconate (Peridex) 15 ml Q12 MM Last administered on 10/26/16 09 :46; Admin Dose 15 ML; Start 10/25/16 at 21:00 Collagenase (Santyl) 1 applic DAILY TOP Last administered on 10/26/16 09:46; Admin Dose 1 APPLIC; Start 10/26/16 at 09:00 Ferrous Sulfate (Feosol Liquid Cup) 330 mg DAILY GTB Last administered on 09:46; Admin Dose 330 MG; Start 10/26/16 at 09:00 Multivitamins Therapeutic (Theragran) 1 tab DAILY GTB Last administered on 09:44; Admin Dose 1 TAB; Start 10/26/16 at 09:00 Lactobacillus Acidoph/Bulgaricus (Floranex) 1 tab BID PO Last administered on 09:44; Admin Dose 1 TAB; Start 10/25/16 at 21:00 Fenofibrate 145 mg 145 mg DAILY PO Last administered on 10/26/16 09:45; Admin Dose 145 MG; Start 10/26/16 at 09:00 Dobutamine HCl/ Dextrose 250 ml @ 12 mls/hr TITRATE IV Last administered on 12:19; Admin Dose 9.4 MLS/HR; Start 10/25/16 at 11:30 IV Flush (NS 10 ml) 10 ml PRN PRN IV IV PROTOCOL; Start 10/25/16 at 11:30 Atorvastatin Calcium (Lipitor) 20 mg HS PO Last administered on 10/25/16 22:59 ; Admin Dose 20 MG; Start 10/25/16 at 21:00 Pantoprazole (Protonix Iv) 40 mg BID IV Last administered on 10/26/16 09:46; Admin Dose 40 MG; Start 10/25/16 at 21:00 Insulin Aspart NOVOLOG *MILD* ALGORI... Q4 SC ; Start 10/26/16 at 13:00 Norepinephrine/ Dextrose (Levophed/D5W) 250 ml @ 0.46 mls/hr TITRATE IV ; Start 10/26/16 at 09:30 Miscellaneous Information 1 ea NOTE XX ; Start 10/26/16 at 09:30 Glucose (Glutose) 15 gm Q15M PRN PO DECREASED GLUCOSE; Start 10/26/16 at 09:30 Glucose (Glutose) 22.5 gm Q15M PRN PO DECREASED GLUCOSE; Start 10/26/16 at 09:30 Dextrose (D50w Syringe) 25 ml Q15M PRN IV DECREASED GLUCOSE; Start 10/26/16 at 09:30 Dextrose (D50w Syringe) 50 ml Q15M PRN IV DECREASED GLUCOSE; Start 10/26/16 at 09:30 Glucagon (Glucagen) 1 mg Q15M PRN IM DECREASED GLUCOSE; Start 10/26/16 at 09:30 Glucose (Glutose) 15 gm Q15M PRN BUCCAL DECREASED GLUCOSE; Start 10/26/16 at 09: 30 Insulin Glargine 12 unit 12 unit DAILY@20 SC ; Start 10/26/16 at 20:00 Sodium Chloride (1/2 NS) 1,000 ml @ 70 mls/hr [id number] IV Last administered on 10/26/16 11:30; Admin Dose 70 MLS/HR; Start 10/26/16 at 10:30 Citric Acid/ Sodium Citrate 30 ml 30 ml BID PO Last administered on 10/26/16 12 :00; Admin Dose 30 ML; Start 10/26/16 at 10:30 Meropenem (Merrem 500 Mg/ 100 ml (Pmx)) 100 ml @ 200 mls/hr Q8 IVPB ; Start 10/26/16 at 14:00 RAYMON BETANCOURT MD Oct 26, 2016 13:54
[2016-10-26] MEDS: MEROPENEM 500 MG/100 ML (PMX) 100 ML IVPB SCH ×2 (14:24→22:46)
[2016-10-26] MEDS ORDERED: VANCOMYCIN 1 GM in NS 250 ML IVPB SCH (15:10)
[2016-10-26] MEDS ORDERED: MAGNESIUM CITRATE 300 ML BTL PO ONE (17:30)
--- NOTE | 2016-10-26 17:34 | CONS ---
Date/Time of Note Date/Time of Note DATE: 10/26/16 TIME: 17:32 Assessment/Plan Assessment/Plan Additional Assessment/Plan Septic shock Acute blood loss anemia Elevated troponin likely secondary to above Respiratory failure Paroxysmal atrial fibrillation, currently sinus rhythm Paroxysmal atrial tachycardia Preserved ejection fraction Acute kidney injury -IV pressor requirements are decreasing, titrate to maintain SBP greater than 90 and/or map above 60. IV fluids as per nephrology. No antihypertensive medications at the current time. Consultation Date/Type/Reason Admit Date/Time Oct 25, 2016 at 10:54 Initial Consult Date 10/25/16 Type of Consultation: cv Referring Provider: DILIP AERLLANO MD 24 HR Interval Summary Free Text/Dictation Patient seen and examined, pressor requirements decreasing, no new cardiac issues as per nursing staff Exam/Review of Systems Vital Signs Vitals Vital Signs Date Time Temp Pulse Resp B/P Pulse Ox O2 Delivery O2 Flow Rate FiO2 10/26/16 16:00 85 10/26/16 13:22 19 100 30 10/26/16 12:15 106/50 Mechanical Ventilator 10/26/16 12:00 97.8 Intake and Output 10/25/16 10/25/16 10/26/16 15:00 23:00 07:00 Intake Total 50 ml 1318.4 ml Output Total 500 ml 1570 ml Balance -450 ml -251.6 ml Exam No apparent distress Head: normocephalic Neck: other (Tracheostomy) Respiratory: crackles/rales, other (Coarse breath sounds bilaterally) Cardiovascular: other (S1-S2), regular rate and rhythm Gastrointestinal: bowel sounds, non-tender, other (No guarding), soft Extremities: edema Results Result Diagram: 10/26/16 0318 10/26/16 0318 Results 24 hrs Laboratory Tests Test 10/25/16 20:45 10/25/16 21:35 10/25/16 23:45 10/26/16 03:18 White Blood Count 10.3 11.1 H Red Blood Count 2.79 #L 2.88 L Hemoglobin 7.2 #L 7.6 L Hematocrit 23.9 #L 24.7 L Mean Corpuscular Volume 85.7 85.8 Mean Corpuscular Hemoglobin 25.8 L 26.4 L Mean Corpuscular Hemoglobin Concent 30.1 L 30.8 L Red Cell Distribution Width 16.0 H 16.0 H Platelet Count 99 L 103 L Mean Platelet Volume 13.6 H 13.7 H Neutrophils % 90.0 H 87.7 H Lymphocytes % 6.0 L 6.9 L Monocytes % 4.0 4.8 Neutrophils # 9.3 H 9.7 H Lymphocytes # 0.6 L 0.8 Monocytes # 0.4 0.5 Platelet Estimate PLT APPEAR DECREASED Sodium Level 138 139 Potassium Level 3.8 3.6 Chloride Level 115 H 115 H Carbon Dioxide Level 15 L 15 L Anion Gap 12 13 Blood Urea Nitrogen 151 H 142 H Creatinine 1.82 H 1.66 H Glucose Level 356 H 313 H Calcium Level 5.8 *L 6.2 L Lactic Acid Level 2.3 H 1.4 Eosinophils % 0.1 Basophils % 0.1 Nucleated Red Blood Cells % 0.0 Eosinophils # 0.0 Basophils # 0.0 Nucleated Red Blood Cells # 0.0 Magnesium Level 3.0 H Iron Level 17 L Total Iron Binding Capacity 217 L Percent Iron Saturation 8 L Ferritin 2110.0 H Free Thyroxine 2.67 H Free Triiodothyronine (T3) pg/mL 3.42 Test 10/26/16 07:55 10/26/16 13:52 10/26/16 16:55 Lactic Acid Level 1.8 1.9 Bedside Glucose 347 H Medications Medications Current Medications Dextrose (D50w Syringe) 50 ml ONCE PRN IV POC BLOOD GLUCOSE <250 MG/DL; Start 10/25/16 at 11:00 Ondansetron HCl (Zofran Inj) 4 mg Q6H PRN IV NAUSEA AND/OR VOMITING; Start 10/25 at 11:00 Nitroglycerin (Nitroglycerin (Sl Tab) 0.4 Mg) 1 tab Q5M PRN SL CHEST PAIN; Start 10/25/16 at 11:00 Acetaminophen (Tylenol Tab) 650 mg Q6H PRN PO PAIN LEVEL 1-3 OR FEVER; Start at 11:00 Acetaminophen (Tylenol Supp) 650 mg Q4H PRN [place] PAIN LEVEL 1-3 OR FEVER; Start 10/25/16 at 11:00 Docusate Sodium (Colace) 100 mg Q12H PRN PO CONSTIPATION; Start 10/25/16 at 11: 00 Bisacodyl (Dulcolax Supp) 10 mg DAILY PRN [place] CONSTIPATION; Start 10/25/16 at 11: 00 Amiodarone HCl (Cordarone) 400 mg BID GTB Last administered on 10/26/16 09:45; Admin Dose 400 MG; Start 10/25/16 at 21:00 Ascorbic Acid (Vitamin C) 500 mg DAILY GTB Last administered on 10/26/16 09:45 ; Admin Dose 500 MG; Start 10/26/16 at 09:00 Chlorhexidine Gluconate (Peridex) 15 ml Q12 MM Last administered on 10/26/16 09 :46; Admin Dose 15 ML; Start 10/25/16 at 21:00 Collagenase (Santyl) 1 applic DAILY TOP Last administered on 10/26/16 09:46; Admin Dose 1 APPLIC; Start 10/26/16 at 09:00 Ferrous Sulfate (Feosol Liquid Cup) 330 mg DAILY GTB Last administered on 09:46; Admin Dose 330 MG; Start 10/26/16 at 09:00 Multivitamins Therapeutic (Theragran) 1 tab DAILY GTB Last administered on 09:44; Admin Dose 1 TAB; Start 10/26/16 at 09:00 Lactobacillus Acidoph/Bulgaricus (Floranex) 1 tab BID PO Last administered on 09:44; Admin Dose 1 TAB; Start 10/25/16 at 21:00 Fenofibrate 145 mg 145 mg DAILY PO Last administered on 10/26/16 09:45; Admin Dose 145 MG; Start 10/26/16 at 09:00 Dobutamine HCl/ Dextrose 250 ml @ 12 mls/hr TITRATE IV Last administered on 12:19; Admin Dose 9.4 MLS/HR; Start 10/25/16 at 11:30 IV Flush (NS 10 ml) 10 ml PRN PRN IV IV PROTOCOL; Start 10/25/16 at 11:30 Atorvastatin Calcium (Lipitor) 20 mg HS PO Last administered on 10/25/16 22:59 ; Admin Dose 20 MG; Start 10/25/16 at 21:00 Pantoprazole (Protonix Iv) 40 mg BID IV Last administered on 10/26/16 09:46; Admin Dose 40 MG; Start 10/25/16 at 21:00 Insulin Aspart NOVOLOG *MILD* ALGORI... Q4 SC Last administered on 10/26/16 13: 57; Admin Dose 5 UNIT; Start 10/26/16 at 13:00 Norepinephrine/ Dextrose (Levophed/D5W) 250 ml @ 0.46 mls/hr TITRATE IV Last administered on 10/26/16 13:48; Admin Dose 1.87 MLS/HR; Start 10/26/16 at 09:30 Miscellaneous Information 1 ea NOTE XX ; Start 10/26/16 at 09:30 Glucose (Glutose) 15 gm Q15M PRN PO DECREASED GLUCOSE; Start 10/26/16 at 09:30 Glucose (Glutose) 22.5 gm Q15M PRN PO DECREASED GLUCOSE; Start 10/26/16 at 09:30 Dextrose (D50w Syringe) 25 ml Q15M PRN IV DECREASED GLUCOSE; Start 10/26/16 at 09:30 Dextrose (D50w Syringe) 50 ml Q15M PRN IV DECREASED GLUCOSE; Start 10/26/16 at 09:30 Glucagon (Glucagen) 1 mg Q15M PRN IM DECREASED GLUCOSE; Start 10/26/16 at 09:30 Glucose (Glutose) 15 gm Q15M PRN BUCCAL DECREASED GLUCOSE; Start 10/26/16 at 09: 30 Insulin Glargine (Lantus) 12 unit DAILY@20 SC ; Start 10/26/16 at 20:00 Citric Acid/ Sodium Citrate 30 ml 30 ml BID PO Last administered on 10/26/16 12 :00; Admin Dose 30 ML; Start 10/26/16 at 10:30 Meropenem (Merrem 500 Mg/ 100 ml (Pmx)) 100 ml @ 200 mls/hr Q8 IVPB Last administered on 10/26/16 14:24; Admin Dose 200 MLS/HR; Start 10/26/16 at 14:00 Polyethylene Glycol 119 gm 119 gm ONCE ONCE PO ; Start 10/26/16 at 18:30; Stop 10/26/16 at 18:31 Vancomycin HCl 250 ml @ 125 mls/hr Q24H IVPB Last administered on 10/26/16 16: 30; Admin Dose 125 MLS/HR; Start 10/26/16 at 15:10 Dextrose/Sodium Chloride (D5-1/2ns) 1,000 ml @ 75 mls/hr [id number] IV ; Start 10/26/16 at 17:30 Ervin Ceja DO Oct 26, 2016 17:34
[2016-10-26] MEDS: DEXTROSE 5%-0.45% NACL 1,000 ML IV SCH (18:08)
[2016-10-26] MEDS ORDERED: POLYETHYLENE GLYCOL 3350 119 GM POWDER PO ONE (18:30)
[2016-10-26] MEDS: ATORVASTATIN 20 MG TAB PO SCH (20:27)
[2016-10-26] MEDS: INSULIN GLARGINE [LANtus] 3 ML PEN SC SCH (20:38)
[2016-10-27] VITALS (52 sets, daily range): BP systolic 78–121; BP diastolic 43–67; PULSE 74–92; RESP 12–27
[2016-10-27] MEDS: INSULIN ASPART [NOVOLOG] 3 ML PEN SC SCH ×6 (01:00→20:12)
[2016-10-27] MEDS: MEROPENEM 500 MG/100 ML (PMX) 100 ML IVPB SCH ×3 (05:31→21:02)
[2016-10-27] MEDS ORDERED: POLYETHYLENE GLYCOL 3350 119 GM POWDER PO ONE (06:00)
[2016-10-27 06:08] LABS: ADD SCAN DIFF NO
[2016-10-27 06:30] LABS: BASOPHILS % 0.1 % (0.0-2.0); EOSINOPHILS % 0.3 % (0.0-7.0); HEMATOCRIT 26.9 % (42.0-52.0); HEMOGLOBIN 8.5 g/dl (14.0-18.0); LYMPHOCYTES # 0.7 10^3/ul (0.8-2.9); LYMPHOCYTES % 5.7 % (15.0-51.0); MEAN CORPUSCULAR HEMOGLOBIN 26.9 pg (29.0-33.0); MEAN CORPUSCULAR HGB CONC 31.6 g/dl (32.0-37.0); MEAN CORPUSCULAR VOLUME 85.1 fl (82.0-101.0); MONOCYTE # 0.6 10^3/ul (0.3-0.9); MONOCYTES % 4.9 % (0.0-11.0); NEUTROPHIL # 11.5 10^3/ul (1.6-7.5); NEUTROPHILS % 88.7 % (39.0-77.0); PLATELET COUNT 113 10^3/UL (140-415); RED BLOOD COUNT 3.16 10^6/ul (4.70-6.10); RED CELL DISTRIBUTION WIDTH 16.2 % (11.5-14.5); WHITE BLOOD COUNT 12.9 10^3/ul (4.8-10.8)
[2016-10-27] MEDS: DEXTROSE 5%-0.45% NACL 1,000 ML IV SCH ×2 (06:46→09:42)
[2016-10-27 07:03] LABS: CREATININE 1.11 mg/dl (0.61-1.24)
[2016-10-27 07:04] LABS: CALCIUM 7.4 mg/dl (8.4-10.2); MAGNESIUM 2.9 mg/dl (1.7-2.5)
[2016-10-27] MEDS ORDERED: BISACODYL (EC) 5 MG TAB PO ONE (08:00)
[2016-10-27] MEDS: ASCORBIC ACID 500 MG TAB GTB SCH (08:40)
[2016-10-27] MEDS: AMIODARONE 200 MG TAB GTB SCH ×2 (08:40→20:13)
[2016-10-27] MEDS: LACTOBACILLUS CHEW TAB PO SCH ×2 (08:40→20:13)
[2016-10-27] MEDS: MULTIVITAMINS THERAPEUTIC TAB GTB SCH (08:40)
[2016-10-27] MEDS: FERROUS SULFATE 60 MG/ML 5ML CUP GTB SCH (08:40)
[2016-10-27] MEDS: FENOFIBRATE 145 MG TAB PO SCH (08:40)
[2016-10-27] MEDS: CHLORHEXIDINE GLUCONATE 15 ML UD CUP MM SCH ×2 (08:41→20:13)
[2016-10-27] MEDS: COLLAGENASE 30 GM TUBE TOP SCH (08:41)
[2016-10-27] MEDS: PANTOPRAZOLE 40 MG INJ IV SCH ×2 (08:41→20:13)
[2016-10-27] MEDS: CITRIC ACID/NA CITRATE 30 ML CUP PO SCH ×2 (08:41→20:13)
[2016-10-27] MEDS: SODIUM HYPOCHLORITE 0.125% 473 ML BTL IRR SCH (08:41)
--- NOTE | 2016-10-27 09:19 | RADRPT ---
PROCEDURE: XR Chest. CLINICAL INDICATION: Shortness of breath. TECHNIQUE: Single frontal view. COMPARISON: 10/25/2016. FINDINGS: The tracheostomy tube and left arm PICC line remain in satisfactory position. There is atelectasis at the lung bases, unchanged. The lungs are otherwise clear. The heart is enlarged. There is calcification in the aorta consistent with atherosclerosis. There are small bilateral pleural effusions. There is no pneumothorax. IMPRESSION: 1. No change from 10/25/2016. RPTAT: QQ .Alhaji Schultz MD, MD Date Time Electronically viewed and signed by .Alhaji Schultz MD, MD on 10/27/2016 09:19 .R/
--- NOTE | 2016-10-27 10:08 | PN ---
Date/Time of Note Date/Time of Note DATE: 10/27/16 TIME: 10:02 Assessment/Plan VTE Prophylaxis VTE Prophylaxis Intervention: other Lines/Catheters IV [facility] Type ([facility] PICC Line Central line still needed: Yes Urinary Cath still in place: Yes Reason Cath still needed: other (indicate) Assessment/Plan Chief Complaint/Hosp Course ASSESSMENT AND PLAN: 1. Sepsis, likely secondary to urinary tract infection Off pressors Continue Zosyn and Aztreonam. Infectious disease doctor has been consulted. 2. Ventilator-dependent respiratory failure. Continue vent management by adjuster. 3. Non-ST myocardial infarction with elevated troponin, likely demand ischemia secondary to anemia. Follow-up cardiology recommendations 4. Anemia, secondary to GI bleed positive guaiac. 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 Status post 2 units of packed red blood cell. Follow hemoglobin hematocrit 5. Severe dehydration, improving, status post 2 units of packed red blood cells and IV fluid. Follow renal panel. 6. Acute renal insufficiency. Secondary to #5 as above, nephrology has been consulted. 7. Diabetic mellitus . Place the patient on Lantus, continue insulin sliding scale. 8. History of essential hypertension. At this time, the patient is hypotensive secondary to septic shock. Hold all blood pressure medication. 9. Dyslipidemia, on statin. 10. GI bleed, gastroenterology been consulted continue IV PPI CONDITION: Poor and critical. We will continue to monitor patient closely. Further recommendations, management, and treatment as per clinical course. Critical time 40 minutes Transfer to telemetry floor Problems: Subjective 24 Hr Interval Summary Free Text/Dictation Off pressors No tube feeding secondary to GI bleed Tolerating vent Easily arousable Exam/Review of Systems Vital Signs Vitals Vital Signs Date Time Temp Pulse Resp B/P Pulse Ox O2 Delivery O2 Flow Rate FiO2 10/27/16 08:00 86 10/27/16 06:00 22 96/52 99 Mechanical Ventilator 10/27/16 05:52 30 10/27/16 04:00 99.0 Intake and Output 10/26/16 10/26/16 10/27/16 15:00 23:00 07:00 Intake Total 902.87 ml 796 ml 625 ml Output Total 760 ml 1030 ml 1150 ml Balance 142.87 ml -234 ml -525 ml Exam General: The patient is not in acute distress. HEENT: Atraumatic, normocephalic. The pupils are equal and round . Neck: Supple, trach in place Chest: Normal Lungs: Clear to auscultation bilaterally Heart: Normal S1-S2, Regular rhythm and rate. Abdomen: Soft , nontender, nondistended , bowel sounds are present. PEG tube in place Extremities: Bilateral lower extremity decubitus ulcer, sacral decubitus ulcer stage III, no edema no cyanosis Neurologic:,The patient is awake, alert Results Result Diagram: 10/27/16 0500 10/27/16 0400 Results 24 hrs Laboratory Tests Test 10/26/16 13:52 10/26/16 16:55 10/26/16 18:18 10/26/16 19:00 Bedside Glucose 347 H 194 Lactic Acid Level 1.9 1.6 Test 10/26/16 20:26 10/27/16 01:14 10/27/16 04:00 10/27/16 05:00 Bedside Glucose 191 139 Sodium Level 148 H Potassium Level 3.0 L Chloride Level 120 H Carbon Dioxide Level 17 L Anion Gap 14 Blood Urea Nitrogen 110 #H Creatinine 1.11 Glucose Level 91 # Calcium Level 7.4 L Magnesium Level 2.9 H White Blood Count 12.9 H Red Blood Count 3.16 L Hemoglobin 8.5 L Hematocrit 26.9 L Mean Corpuscular Volume 85.1 Mean Corpuscular Hemoglobin 26.9 L Mean Corpuscular Hemoglobin Concent 31.6 L Red Cell Distribution Width 16.2 H Platelet Count 113 L Mean Platelet Volume 14.0 H Neutrophils % 88.7 H Lymphocytes % 5.7 L Monocytes % 4.9 Eosinophils % 0.3 Basophils % 0.1 Nucleated Red Blood Cells % 0.0 Neutrophils # 11.5 H Lymphocytes # 0.7 L Monocytes # 0.6 Eosinophils # 0.0 Basophils # 0.0 Nucleated Red Blood Cells # 0.0 Hemoglobin A1c 6.0 H Test 10/27/16 05:29 10/27/16 08:33 Bedside Glucose 110 91 Medications Medications Current Medications Dextrose (D50w Syringe) 50 ml ONCE PRN IV POC BLOOD GLUCOSE <250 MG/DL; Start 10/25/16 at 11:00 Ondansetron HCl (Zofran Inj) 4 mg Q6H PRN IV NAUSEA AND/OR VOMITING; Start 10/25 at 11:00 Nitroglycerin (Nitroglycerin (Sl Tab) 0.4 Mg) 1 tab Q5M PRN SL CHEST PAIN; Start 10/25/16 at 11:00 Acetaminophen (Tylenol Tab) 650 mg Q6H PRN PO PAIN LEVEL 1-3 OR FEVER; Start at 11:00 Acetaminophen (Tylenol Supp) 650 mg Q4H PRN [place] PAIN LEVEL 1-3 OR FEVER; Start 10/25/16 at 11:00 Docusate Sodium (Colace) 100 mg Q12H PRN PO CONSTIPATION; Start 10/25/16 at 11: 00 Bisacodyl (Dulcolax Supp) 10 mg DAILY PRN [place] CONSTIPATION; Start 10/25/16 at 11: 00 Amiodarone HCl (Cordarone) 400 mg BID GTB Last administered on 10/27/16 08:40; Admin Dose 400 MG; Start 10/25/16 at 21:00 Ascorbic Acid (Vitamin C) 500 mg DAILY GTB Last administered on 10/27/16 08:40 ; Admin Dose 500 MG; Start 10/26/16 at 09:00 Chlorhexidine Gluconate (Peridex) 15 ml Q12 MM Last administered on 10/27/16 08 :41; Admin Dose 15 ML; Start 10/25/16 at 21:00 Collagenase (Santyl) 1 applic DAILY TOP Last administered on 10/27/16 08:41; Admin Dose 1 APPLIC; Start 10/26/16 at 09:00 Ferrous Sulfate (Feosol Liquid Cup) 330 mg DAILY GTB Last administered on 08:40; Admin Dose 330 MG; Start 10/26/16 at 09:00 Multivitamins Therapeutic (Theragran) 1 tab DAILY GTB Last administered on 08:40; Admin Dose 1 TAB; Start 10/26/16 at 09:00 Lactobacillus Acidoph/Bulgaricus (Floranex) 1 tab BID PO Last administered on 08:40; Admin Dose 1 TAB; Start 10/25/16 at 21:00 Fenofibrate 145 mg 145 mg DAILY PO Last administered on 10/27/16 08:40; Admin Dose 145 MG; Start 10/26/16 at 09:00 Dobutamine HCl/ Dextrose 250 ml @ 12 mls/hr TITRATE IV Last administered on 12:19; Admin Dose 9.4 MLS/HR; Start 10/25/16 at 11:30 IV Flush (NS 10 ml) 10 ml PRN PRN IV IV PROTOCOL; Start 10/25/16 at 11:30 Atorvastatin Calcium (Lipitor) 20 mg HS PO Last administered on 10/26/16 20:27 ; Admin Dose 20 MG; Start 10/25/16 at 21:00 Pantoprazole (Protonix Iv) 40 mg BID IV Last administered on 10/27/16 08:41; Admin Dose 40 MG; Start 10/25/16 at 21:00 Insulin Aspart NOVOLOG *MILD* ALGORI... Q4 SC Last administered on 10/26/16 20: 31; Admin Dose 2 UNIT; Start 10/26/16 at 13:00 Norepinephrine/ Dextrose (Levophed/D5W) 250 ml @ 0.46 mls/hr TITRATE IV Last administered on 10/26/16 13:48; Admin Dose 1.87 MLS/HR; Start 10/26/16 at 09:30 Miscellaneous Information 1 ea NOTE XX ; Start 10/26/16 at 09:30 Glucose (Glutose) 15 gm Q15M PRN PO DECREASED GLUCOSE; Start 10/26/16 at 09:30 Glucose (Glutose) 22.5 gm Q15M PRN PO DECREASED GLUCOSE; Start 10/26/16 at 09:30 Dextrose (D50w Syringe) 25 ml Q15M PRN IV DECREASED GLUCOSE; Start 10/26/16 at 09:30 Dextrose (D50w Syringe) 50 ml Q15M PRN IV DECREASED GLUCOSE; Start 10/26/16 at 09:30 Glucagon (Glucagen) 1 mg Q15M PRN IM DECREASED GLUCOSE; Start 10/26/16 at 09:30 Glucose (Glutose) 15 gm Q15M PRN BUCCAL DECREASED GLUCOSE; Start 10/26/16 at 09: 30 Insulin Glargine (Lantus) 12 unit DAILY@20 SC Last administered on 10/26/16 20: 38; Admin Dose 12 UNIT; Start 10/26/16 at 20:00 Citric Acid/ Sodium Citrate 30 ml 30 ml BID PO Last administered on 10/27/16 08 :41; Admin Dose 30 ML; Start 4/6/17 at 10:30 Meropenem 100 ml @ 200 mls/hr Q8 IVPB Last administered on 10/27/16 05:31; Admin Dose 200 MLS/HR; Start 10/26/16 at 14:00 Dextrose/Sodium Chloride (D5-1/2ns) 1,000 ml @ 75 mls/hr [id number] IV Last administered on 10/27/16 09:42; Admin Dose 75 MLS/HR; Start 10/26/16 at 17:30 Sodium Hypochlorite 1 applic 1 applic DAILY IRR Last administered on 10/27/16 08:41; Admin Dose 1 APPLIC; Start 10/27/16 at 09:00 Vancomycin HCl/ Sodium Chloride (Vancocin/NS) 250 ml @ 83.333 mls/ hr Q24H IVPB ; Start 10/27/16 at 16:00 DILIP ARELLANO MD Oct 27, 2016 10:08
--- NOTE | 2016-10-27 10:13 | CONS ---
Date/Time of Note Date/Time of Note DATE: 10/27/16 TIME: 10:12 Consult Date/Type/Reason Admit Date/Time Oct 25, 2016 at 10:54 Initial Consult Date 10/25/16 Type of Consultation: pulmonary ICU Ordering Provider: DILIP ARELLANO MD Subjective Continues mechanical ventilation Makes eye contact but is otherwise nonverbal. Not requiring vasopressors at present Objective Vital Signs Date Time Temp Pulse Resp B/P Pulse Ox O2 Delivery O2 Flow Rate FiO2 10/27/16 08:00 86 10/27/16 06:00 22 96/52 99 Mechanical Ventilator 10/27/16 05:52 30 10/27/16 04:00 99.0 Intake and Output 10/26/16 10/26/16 10/27/16 15:00 23:00 07:00 Intake Total 902.87 ml 796 ml 625 ml Output Total 760 ml 1030 ml 1150 ml Balance 142.87 ml -234 ml -525 ml Exam PHYSICAL EXAMINATION GENERAL: Elderly gentleman, tracheostomy on mechanical ventilation, opens eyes. VITAL SIGNS: see below. HEENT: Pupils equal, round, and reactive to light. Tracheostomy site clean and intact. CARDIAC: S1, S2, 2/6 systolic ejection murmur CHEST: Diminished air entry bilaterally. ABDOMEN: Mildly distended. Bowel sounds present no guarding or rebound EXTREMITIES: No cyanosis, clubbing edema +2 NEUROLOGIC: Unable to assess Results/Medications Result Diagram: 10/27/16 0500 10/27/16 0400 Results 24 hrs Chest x-ray Pulmonary edema Laboratory Tests Test 10/26/16 13:52 10/26/16 16:55 10/26/16 18:18 10/26/16 19:00 Bedside Glucose 347 H 194 Lactic Acid Level 1.9 1.6 Test 10/26/16 20:26 10/27/16 01:14 10/27/16 04:00 10/27/16 05:00 Bedside Glucose 191 139 Sodium Level 148 H Potassium Level 3.0 L Chloride Level 120 H Carbon Dioxide Level 17 L Anion Gap 14 Blood Urea Nitrogen 110 #H Creatinine 1.11 Glucose Level 91 # Calcium Level 7.4 L Magnesium Level 2.9 H White Blood Count 12.9 H Red Blood Count 3.16 L Hemoglobin 8.5 L Hematocrit 26.9 L Mean Corpuscular Volume 85.1 Mean Corpuscular Hemoglobin 26.9 L Mean Corpuscular Hemoglobin Concent 31.6 L Red Cell Distribution Width 16.2 H Platelet Count 113 L Mean Platelet Volume 14.0 H Neutrophils % 88.7 H Lymphocytes % 5.7 L Monocytes % 4.9 Eosinophils % 0.3 Basophils % 0.1 Nucleated Red Blood Cells % 0.0 Neutrophils # 11.5 H Lymphocytes # 0.7 L Monocytes # 0.6 Eosinophils # 0.0 Basophils # 0.0 Nucleated Red Blood Cells # 0.0 Hemoglobin A1c 6.0 H Test 10/27/16 05:29 10/27/16 08:33 Bedside Glucose 110 91 Medications Current Medications Dextrose (D50w Syringe) 50 ml ONCE PRN IV POC BLOOD GLUCOSE <250 MG/DL; Start 10/25/16 at 11:00 Ondansetron HCl (Zofran Inj) 4 mg Q6H PRN IV NAUSEA AND/OR VOMITING; Start 10/25 at 11:00 Nitroglycerin (Nitroglycerin (Sl Tab) 0.4 Mg) 1 tab Q5M PRN SL CHEST PAIN; Start 10/25/16 at 11:00 Acetaminophen (Tylenol Tab) 650 mg Q6H PRN PO PAIN LEVEL 1-3 OR FEVER; Start at 11:00 Acetaminophen (Tylenol Supp) 650 mg Q4H PRN SD PAIN LEVEL 1-3 OR FEVER; Start 10/25/16 at 11:00 Docusate Sodium (Colace) 100 mg Q12H PRN PO CONSTIPATION; Start 10/25/16 at 11: 00 Bisacodyl (Dulcolax Supp) 10 mg DAILY PRN SD CONSTIPATION; Start 10/25/16 at 11: 00 Amiodarone HCl (Cordarone) 400 mg BID GTB Last administered on 10/27/16 08:40; Admin Dose 400 MG; Start 10/25/16 at 21:00 Ascorbic Acid (Vitamin C) 500 mg DAILY GTB Last administered on 10/27/16 08:40 ; Admin Dose 500 MG; Start 10/26/16 at 09:00 Chlorhexidine Gluconate (Peridex) 15 ml Q12 MM Last administered on 10/27/16 08 :41; Admin Dose 15 ML; Start 10/25/16 at 21:00 Collagenase (Santyl) 1 applic DAILY TOP Last administered on 10/27/16 08:41; Admin Dose 1 APPLIC; Start 10/26/16 at 09:00 Ferrous Sulfate (Feosol Liquid Cup) 330 mg DAILY GTB Last administered on 08:40; Admin Dose 330 MG; Start 10/26/16 at 09:00 Multivitamins Therapeutic (Theragran) 1 tab DAILY GTB Last administered on 08:40; Admin Dose 1 TAB; Start 10/26/16 at 09:00 Lactobacillus Acidoph/Bulgaricus (Floranex) 1 tab BID PO Last administered on 08:40; Admin Dose 1 TAB; Start 10/25/16 at 21:00 Fenofibrate 145 mg 145 mg DAILY PO Last administered on 10/27/16 08:40; Admin Dose 145 MG; Start 10/26/16 at 09:00 Dobutamine HCl/ Dextrose 250 ml @ 12 mls/hr TITRATE IV Last administered on 12:19; Admin Dose 9.4 MLS/HR; Start 10/25/16 at 11:30 IV Flush (NS 10 ml) 10 ml PRN PRN IV IV PROTOCOL; Start 10/25/16 at 11:30 Atorvastatin Calcium (Lipitor) 20 mg HS PO Last administered on 10/26/16 20:27 ; Admin Dose 20 MG; Start 10/25/16 at 21:00 Pantoprazole (Protonix Iv) 40 mg BID IV Last administered on 10/27/16 08:41; Admin Dose 40 MG; Start 10/25/16 at 21:00 Insulin Aspart NOVOLOG *MILD* ALGORI... Q4 SC Last administered on 10/26/16 20: 31; Admin Dose 2 UNIT; Start 10/26/16 at 13:00 Norepinephrine/ Dextrose (Levophed/D5W) 250 ml @ 0.46 mls/hr TITRATE IV Last administered on 10/26/16 13:48; Admin Dose 1.87 MLS/HR; Start 10/26/16 at 09:30 Miscellaneous Information 1 ea NOTE XX ; Start 10/26/16 at 09:30 Glucose (Glutose) 15 gm Q15M PRN PO DECREASED GLUCOSE; Start 10/26/16 at 09:30 Glucose (Glutose) 22.5 gm Q15M PRN PO DECREASED GLUCOSE; Start 10/26/16 at 09:30 Dextrose (D50w Syringe) 25 ml Q15M PRN IV DECREASED GLUCOSE; Start 10/26/16 at 09:30 Dextrose (D50w Syringe) 50 ml Q15M PRN IV DECREASED GLUCOSE; Start 10/26/16 at 09:30 Glucagon (Glucagen) 1 mg Q15M PRN IM DECREASED GLUCOSE; Start 10/26/16 at 09:30 Glucose (Glutose) 15 gm Q15M PRN BUCCAL DECREASED GLUCOSE; Start 10/26/16 at 09: 30 Insulin Glargine (Lantus) 12 unit DAILY@20 SC Last administered on 10/26/16 20: 38; Admin Dose 12 UNIT; Start 10/26/16 at 20:00 Citric Acid/ Sodium Citrate 30 ml 30 ml BID PO Last administered on 10/27/16 08 :41; Admin Dose 30 ML; Start 10/26/16 at 10:30 Meropenem 100 ml @ 200 mls/hr Q8 IVPB Last administered on 10/27/16 05:31; Admin Dose 200 MLS/HR; Start 10/26/16 at 14:00 Dextrose/Sodium Chloride (D5-1/2ns) 1,000 ml @ 75 mls/hr [id number] IV Last administered on 10/27/16 09:42; Admin Dose 75 MLS/HR; Start 10/26/16 at 17:30 Sodium Hypochlorite 1 applic 1 applic DAILY IRR Last administered on 10/27/16 08:41; Admin Dose 1 APPLIC; Start 10/27/16 at 09:00 Vancomycin HCl/ Sodium Chloride (Vancocin/NS) 250 ml @ 83.333 mls/ hr Q24H IVPB ; Start 10/27/16 at 16:00 Assessment/Plan Chief Complaint/Hosp Course Assessment 1. Status post Septic shock secondary to urinary tract infection cultures demonstrating gram-negative organism 2. Severe anemia possibly secondary to chronic disease with component of GI bleeding 3. Metabolic acidosis 4. Chronic renal insufficiency component of dehydration also 5. Vent dependent respiratory failure 6. Chronic encephalopathy 7. Dysphagia with G-tube Plan 1. Continue broad-spectrum antibiotics 2. Continue mechanical ventilation 3. Continue to feeding as tolerated 4. Status post transfusion 1 unit packed cells 5. DVT and GI prophylaxis 6. Consider discussion of CODE STATUS with family as overall prognosis very poor 7. Replace potassium Disposition Transfer to telemetry Problems: MUNIR DESHPANDE MD, [facility] Oct 27, 2016 10:13
[2016-10-27] MEDS ORDERED: MAGNESIUM CITRATE 300 ML BTL PO ONE (12:00)
[2016-10-27] MEDS ORDERED: SOD CHLORIDE 0.9% 500 ML IV ONE (12:30)
--- NOTE | 2016-10-27 12:48 | CONS ---
Date/Time of Note Date/Time of Note DATE: 10/27/16 TIME: 12:46 Assessment/Plan Assessment/Plan Additional Assessment/Plan Septic shock Acute blood loss anemia Elevated troponin likely secondary to above Respiratory failure Paroxysmal atrial fibrillation, currently sinus rhythm Paroxysmal atrial tachycardia Preserved ejection fraction Acute kidney injury -Blood pressure on the lower end this morning, will give fluid bolus, blood pressure does not improve, restart IV pressor and titrate to maintain SBP greater than 90 and/or map above 60. We will give him 1 dose of IV potassium now. Consultation Date/Type/Reason Admit Date/Time Oct 25, 2016 at 10:54 Initial Consult Date 10/25/16 Type of Consultation: cv Referring Provider: DILIP ARELLANO MD 24 HR Interval Summary Free Text/Dictation Patient seen and examined, denies shortness of breath. Blood pressure lower this morning as per nursing staff Exam/Review of Systems Vital Signs Vitals Vital Signs Date Time Temp Pulse Resp B/P Pulse Ox O2 Delivery O2 Flow Rate FiO2 10/27/16 12:00 85 10/27/16 11:15 22 98 30 10/27/16 06:00 96/52 Mechanical Ventilator 10/27/16 04:00 99.0 Intake and Output 10/26/16 10/26/16 10/27/16 15:00 23:00 07:00 Intake Total 902.87 ml 796 ml 625 ml Output Total 760 ml 1030 ml 1150 ml Balance 142.87 ml -234 ml -525 ml Exam Awake, no apparent distress Head: normocephalic Neck: other (Tracheostomy) Respiratory: crackles/rales, other (Coarse breath sounds bilaterally, no wheezing) Cardiovascular: other (S1-S2 heard), regular rate and rhythm Gastrointestinal: bowel sounds, distended, other (No pain with palpation), soft Extremities: edema Results Result Diagram: 10/27/16 0500 10/27/16 0400 Results 24 hrs Laboratory Tests Test 10/26/16 13:52 10/26/16 16:55 10/26/16 18:18 10/26/16 19:00 Bedside Glucose 347 H 194 Lactic Acid Level 1.9 1.6 Test 10/26/16 20:26 10/27/16 01:14 10/27/16 04:00 10/27/16 05:00 Bedside Glucose 191 139 Sodium Level 148 H Potassium Level 3.0 L Chloride Level 120 H Carbon Dioxide Level 17 L Anion Gap 14 Blood Urea Nitrogen 110 #H Creatinine 1.11 Glucose Level 91 # Calcium Level 7.4 L Magnesium Level 2.9 H White Blood Count 12.9 H Red Blood Count 3.16 L Hemoglobin 8.5 L Hematocrit 26.9 L Mean Corpuscular Volume 85.1 Mean Corpuscular Hemoglobin 26.9 L Mean Corpuscular Hemoglobin Concent 31.6 L Red Cell Distribution Width 16.2 H Platelet Count 113 L Mean Platelet Volume 14.0 H Neutrophils % 88.7 H Lymphocytes % 5.7 L Monocytes % 4.9 Eosinophils % 0.3 Basophils % 0.1 Nucleated Red Blood Cells % 0.0 Neutrophils # 11.5 H Lymphocytes # 0.7 L Monocytes # 0.6 Eosinophils # 0.0 Basophils # 0.0 Nucleated Red Blood Cells # 0.0 Hemoglobin A1c 6.0 H Test 10/27/16 05:29 10/27/16 08:33 10/27/16 12:43 Bedside Glucose 110 91 91 Medications Medications Current Medications Dextrose (D50w Syringe) 50 ml ONCE PRN IV POC BLOOD GLUCOSE <250 MG/DL; Start 10/25/16 at 11:00 Ondansetron HCl (Zofran Inj) 4 mg Q6H PRN IV NAUSEA AND/OR VOMITING; Start 10/25 at 11:00 Nitroglycerin (Nitroglycerin (Sl Tab) 0.4 Mg) 1 tab Q5M PRN SL CHEST PAIN; Start 10/25/16 at 11:00 Acetaminophen (Tylenol Tab) 650 mg Q6H PRN PO PAIN LEVEL 1-3 OR FEVER; Start at 11:00 Acetaminophen (Tylenol Supp) 650 mg Q4H PRN IN PAIN LEVEL 1-3 OR FEVER; Start 10/25/16 at 11:00 Docusate Sodium (Colace) 100 mg Q12H PRN PO CONSTIPATION; Start 10/25/16 at 11: 00 Bisacodyl (Dulcolax Supp) 10 mg DAILY PRN IN CONSTIPATION; Start 10/25/16 at 11: 00 Amiodarone HCl (Cordarone) 400 mg BID GTB Last administered on 10/27/16t 08:40; Admin Dose 400 MG; Start 10/25/16 at 21:00 Ascorbic Acid (Vitamin C) 500 mg DAILY GTB Last administered on 10/27/16 08:40 ; Admin Dose 500 MG; Start 10/26/16 at 09:00 Chlorhexidine Gluconate (Peridex) 15 ml Q12 MM Last administered on 10/27/16 08 :41; Admin Dose 15 ML; Start 10/25/16 at 21:00 Collagenase (Santyl) 1 applic DAILY TOP Last administered on 10/27/16 08:41; Admin Dose 1 APPLIC; Start 10/26/16 at 09:00 Ferrous Sulfate (Feosol Liquid Cup) 330 mg DAILY GTB Last administered on 08:40; Admin Dose 330 MG; Start 10/26/16 at 09:00 Multivitamins Therapeutic (Theragran) 1 tab DAILY GTB Last administered on 08:40; Admin Dose 1 TAB; Start 10/26/16 at 09:00 Lactobacillus Acidoph/Bulgaricus (Floranex) 1 tab BID PO Last administered on 08:40; Admin Dose 1 TAB; Start 10/25/16 at 21:00 Fenofibrate 145 mg 145 mg DAILY PO Last administered on 10/27/16 08:40; Admin Dose 145 MG; Start 10/26/16 at 09:00 Dobutamine HCl/ Dextrose 250 ml @ 12 mls/hr TITRATE IV Last administered on 12:19; Admin Dose 9.4 MLS/HR; Start 10/25/16 at 11:30 IV Flush (NS 10 ml) 10 ml PRN PRN IV IV PROTOCOL; Start 10/25/16 at 11:30 Atorvastatin Calcium (Lipitor) 20 mg HS PO Last administered on 10/26/16 20:27 ; Admin Dose 20 MG; Start 10/25/16 at 21:00 Pantoprazole (Protonix Iv) 40 mg BID IV Last administered on 10/27/16 08:41; Admin Dose 40 MG; Start 10/25/16 at 21:00 Insulin Aspart NOVOLOG *MILD* ALGORI... Q4 SC Last administered on 10/26/16 20: 31; Admin Dose 2 UNIT; Start 10/26/16 at 13:00 Norepinephrine/ Dextrose (Levophed/D5W) 250 ml @ 0.46 mls/hr TITRATE IV Last administered on 10/26/16 13:48; Admin Dose 1.87 MLS/HR; Start 10/26/16 at 09:30 Miscellaneous Information 1 ea NOTE XX ; Start 10/26/16 at 09:30 Glucose (Glutose) 15 gm Q15M PRN PO DECREASED GLUCOSE; Start 10/26/16 at 09:30 Glucose (Glutose) 22.5 gm Q15M PRN PO DECREASED GLUCOSE; Start 10/26/16 at 09:30 Dextrose (D50w Syringe) 25 ml Q15M PRN IV DECREASED GLUCOSE; Start 10/26/16 at 09:30 Dextrose (D50w Syringe) 50 ml Q15M PRN IV DECREASED GLUCOSE; Start 10/26/16 at 09:30 Glucagon (Glucagen) 1 mg Q15M PRN IM DECREASED GLUCOSE; Start 10/26/16 at 09:30 Glucose (Glutose) 15 gm Q15M PRN BUCCAL DECREASED GLUCOSE; Start 10/26/16 at 09: 30 Insulin Glargine (Lantus) 12 unit DAILY@20 SC Last administered on 10/26/16 20: 38; Admin Dose 12 UNIT; Start 10/26/16 at 20:00 Citric Acid/ Sodium Citrate 30 ml 30 ml BID PO Last administered on 10/27/16 08 :41; Admin Dose 30 ML; Start 10/26/16 at 10:30 Meropenem 100 ml @ 200 mls/hr Q8 IVPB Last administered on 10/27/16 05:31; Admin Dose 200 MLS/HR; Start 10/26/16 at 14:00 Dextrose/Sodium Chloride (D5-1/2ns) 1,000 ml @ 75 mls/hr [id number] IV Last administered on 10/27/16 09:42; Admin Dose 75 MLS/HR; Start 10/26/16 at 17:30 Sodium Hypochlorite 1 applic 1 applic DAILY IRR Last administered on 10/27/16 08:41; Admin Dose 1 APPLIC; Start 10/27/16 at 09:00 Vancomycin HCl 1.5 gm/Sodium Chloride 250 ml @ 83.333 mls/ hr Q24H IVPB ; Start 10/27/16 at 16:00 Sodium Chloride (NS) 500 ml @ 500 mls/hr Q1H ONCE IV Last administered on 4/7/ 17at 12:20; Admin Dose 500 MLS/HR; Start 10/27/16 at 12:30; Stop 10/27/16 at 13:29 Ervin Ceja DO Oct 27, 2016 12:48
--- NOTE | 2016-10-27 12:54 | PN ---
DATE: 10/27/2016 SUBJECTIVE: No acute changes. The patient is back on Levophed drip. Blood pressure is low. He is also bleeding from the sacral wound. He is lethargic, in no distress. VITAL SIGNS: Temperature 99, pulse 85, respirations 22, blood pressure 96/52, saturation 99% on 30 FIO2. LABORATORY DATA: WBC 12.9, H and H 8.5 and 26.9, platelets 113, neutrophils 88.7, no bands. BUN 110, creatinine 1.11. MICROBIOLOGY: Blood culture growing gram-negative rods and gram-positive cocci in clusters. Urine culture growing E. coli and Morganella morganii, both susceptible to cefotaxime and gentamicin. Wound culture growing gram-negative rods. DIAGNOSTICS: Chest x-ray this morning revealed unchanged. INDWELLINGS: Trach, PEG, Ferreira, left upper extremity PICC line placed on 2016. ANTIMICROBIALS: The patient is: 1. IV vancomycin. 2. Meropenem. PHYSICAL EXAMINATION: GENERAL: This is a well-developed, fragile, chronically ill-appearing, elderly man who is lying comfortably in bed. HEENT: Head atraumatic, normocephalic. Sclerae anicteric. Buccal mucosa dry. NECK: Supple. Tracheostomy present. CHEST: Rise symmetrical. Breath sounds diminished at the bases. HEART: S1, S2. ABDOMEN: Soft. Bowel tones present. EXTREMITIES: Without cyanosis. Trace edema and multiple pressure sores. SKIN: With unstageable sacral wound. ASSESSMENT: 1. Severe sepsis with shock, multifactorial. 2. Acute anemia. 3. Recurrent urinary tract infection. 4. Polymicrobial bacteremia. 5. Unstageable sacral decubitus. 6. Chronic respiratory failure. 7. Atrial fibrillation. 8. Diabetes, blood sugars controlled. PLAN: The patient remains hemodynamically unstable, pending EGD and colonoscopy. He is on appropriate antimicrobials, pending final cultures. He is being followed by multiple consultants. Dictated By: ADITYA CALLAHAN HOUSEKEEPER C[employer] for [employer] Conf#: [id number] DID#: [id number] [facility]
[2016-10-27] MEDS ORDERED: POTASSIUM CHLORIDE 250 ML IVPB ONE (13:00)
[2016-10-27 13:33] LABS: AADO2 Arterial 74.6 mmHg (7.0-24.0); Allen Test ACCEPTAB; Arterial Base Excess -5.7 mmol/L (-3.0-3); Arterial COHb 0.3 % (0.0-3.0); Arterial Fraction of Oxyhgb 96.9 % (93.0-99.0); Arterial HCO3 17.1 mmol/L (22.0-26.0); Arterial MetHb 0.4 % (0.0-1.5); Arterial Total Hemglobin 9.4 g/dl (12.0-18.0); MODE VENT - AC
--- NOTE | 2016-10-27 13:37 | CONS ---
Date/Time of Note Date/Time of Note DATE: 10/27/16 TIME: 13:33 Assessment/Plan Assessment/Plan Additional Assessment/Plan 76 yo Male with 1) S/p Septic Shock 2nd to UTI 2) Severe Anemia- Stable, improved 3) THEO on likely CKD, Pre-Renal Azotemia, Improving 4) Hyperkalemia- Resolved, now Hypokalemic 5) Metabolic Acidosis- Improving on Bicitra, 6) VDRF, S/p Tracheostomy 7) Dysphagia, S/p PEG Renal function continues to improve with current treatment Cont Bicitra, Supplement K already ordered. Check Mg in am Will Cont to monitor UO, Electrolytes and renal function Consultation Date/Type/Reason Admit Date/Time Oct 25, 2016 at 10:54 Initial Consult Date 10/25/16 Type of Consultation: Nephrology Reason for Consultation THEO Referring Provider: DILIP ARELLANO MD 24 HR Interval Summary Free Text/Dictation S/p PRBC yesterday, No IV pressors, IV Bolus. Subjective hx not possible: pt critical status Constitutional: requiring O2 Exam/Review of Systems Vital Signs Vitals Vital Signs Date Time Temp Pulse Resp B/P Pulse Ox O2 Delivery O2 Flow Rate FiO2 10/27/16 12:00 85 10/27/16 11:15 22 98 30 10/27/16 06:00 96/52 Mechanical Ventilator 10/27/16 04:00 99.0 Intake and Output 10/26/16 10/26/16 10/27/16 15:00 23:00 07:00 Intake Total 902.87 ml 796 ml 625 ml Output Total 760 ml 1030 ml 1150 ml Balance 142.87 ml -234 ml -525 ml Exam Constitutional: No distress ENMT: mucosa pink and moist Respiratory: other (Vent), No labored breathing Cardiovascular: edema, regular rate and rhythm Gastrointestinal: non-tender, soft Neurological: lethargic, other (Arousable) Results Result Diagram: 10/27/16 0500 10/27/16 0400 Results 24 hrs Laboratory Tests Test 10/26/16 13:52 10/26/16 16:55 10/26/16 18:18 10/26/16 19:00 Bedside Glucose 347 H 194 Lactic Acid Level 1.9 1.6 Test 10/26/16 20:26 10/27/16 01:14 10/27/16 04:00 10/27/16 05:00 Bedside Glucose 191 139 Sodium Level 148 H Potassium Level 3.0 L Chloride Level 120 H Carbon Dioxide Level 17 L Anion Gap 14 Blood Urea Nitrogen 110 #H Creatinine 1.11 Glucose Level 91 # Calcium Level 7.4 L Magnesium Level 2.9 H White Blood Count 12.9 H Red Blood Count 3.16 L Hemoglobin 8.5 L Hematocrit 26.9 L Mean Corpuscular Volume 85.1 Mean Corpuscular Hemoglobin 26.9 L Mean Corpuscular Hemoglobin Concent 31.6 L Red Cell Distribution Width 16.2 H Platelet Count 113 L Mean Platelet Volume 14.0 H Neutrophils % 88.7 H Lymphocytes % 5.7 L Monocytes % 4.9 Eosinophils % 0.3 Basophils % 0.1 Nucleated Red Blood Cells % 0.0 Neutrophils # 11.5 H Lymphocytes # 0.7 L Monocytes # 0.6 Eosinophils # 0.0 Basophils # 0.0 Nucleated Red Blood Cells # 0.0 Hemoglobin A1c 6.0 H Test 10/27/16 05:29 10/27/16 08:33 10/27/16 12:43 Bedside Glucose 110 91 91 Medications Medications Current Medications Dextrose (D50w Syringe) 50 ml ONCE PRN IV POC BLOOD GLUCOSE <250 MG/DL; Start 10/25/16 at 11:00 Ondansetron HCl (Zofran Inj) 4 mg Q6H PRN IV NAUSEA AND/OR VOMITING; Start 10/25 at 11:00 Nitroglycerin (Nitroglycerin (Sl Tab) 0.4 Mg) 1 tab Q5M PRN SL CHEST PAIN; Start 10/25/16 at 11:00 Acetaminophen (Tylenol Tab) 650 mg Q6H PRN PO PAIN LEVEL 1-3 OR FEVER; Start at 11:00 Acetaminophen (Tylenol Supp) 650 mg Q4H PRN DC PAIN LEVEL 1-3 OR FEVER; Start 10/25/16 at 11:00 Docusate Sodium (Colace) 100 mg Q12H PRN PO CONSTIPATION; Start 10/25/16 at 11: 00 Bisacodyl (Dulcolax Supp) 10 mg DAILY PRN DC CONSTIPATION; Start 10/25/16 at 11: 00 Amiodarone HCl (Cordarone) 400 mg BID GTB Last administered on 10/27/16t 08:40; Admin Dose 400 MG; Start 10/25/16 at 21:00 Ascorbic Acid (Vitamin C) 500 mg DAILY GTB Last administered on 10/27/16 08:40 ; Admin Dose 500 MG; Start 10/26/16 at 09:00 Chlorhexidine Gluconate (Peridex) 15 ml Q12 MM Last administered on 10/27/16 08 :41; Admin Dose 15 ML; Start 10/25/16 at 21:00 Collagenase (Santyl) 1 applic DAILY TOP Last administered on 10/27/16 08:41; Admin Dose 1 APPLIC; Start 10/26/16 at 09:00 Ferrous Sulfate (Feosol Liquid Cup) 330 mg DAILY GTB Last administered on 08:40; Admin Dose 330 MG; Start 10/26/16 at 09:00 Multivitamins Therapeutic (Theragran) 1 tab DAILY GTB Last administered on 08:40; Admin Dose 1 TAB; Start 10/26/16 at 09:00 Lactobacillus Acidoph/Bulgaricus (Floranex) 1 tab BID PO Last administered on 08:40; Admin Dose 1 TAB; Start 10/25/16 at 21:00 Fenofibrate 145 mg 145 mg DAILY PO Last administered on 10/27/16 08:40; Admin Dose 145 MG; Start 10/26/16 at 09:00 Dobutamine HCl/ Dextrose 250 ml @ 12 mls/hr TITRATE IV Last administered on 12:19; Admin Dose 9.4 MLS/HR; Start 10/25/16 at 11:30 IV Flush (NS 10 ml) 10 ml PRN PRN IV IV PROTOCOL; Start 10/25/16 at 11:30 Atorvastatin Calcium (Lipitor) 20 mg HS PO Last administered on 10/26/16 20:27 ; Admin Dose 20 MG; Start 10/25/16 at 21:00 Pantoprazole (Protonix Iv) 40 mg BID IV Last administered on 10/27/16 08:41; Admin Dose 40 MG; Start 10/25/16 at 21:00 Insulin Aspart NOVOLOG *MILD* ALGORI... Q4 SC Last administered on 10/26/16 20: 31; Admin Dose 2 UNIT; Start 10/26/16 at 13:00 Norepinephrine/ Dextrose (Levophed/D5W) 250 ml @ 0.46 mls/hr TITRATE IV Last administered on 10/26/16 13:48; Admin Dose 1.87 MLS/HR; Start 10/26/16 at 09:30 Miscellaneous Information 1 ea NOTE XX ; Start 10/26/16 at 09:30 Glucose (Glutose) 15 gm Q15M PRN PO DECREASED GLUCOSE; Start 10/26/16 at 09:30 Glucose (Glutose) 22.5 gm Q15M PRN PO DECREASED GLUCOSE; Start 10/26/16 at 09:30 Dextrose (D50w Syringe) 25 ml Q15M PRN IV DECREASED GLUCOSE; Start 10/26/16 at 09:30 Dextrose (D50w Syringe) 50 ml Q15M PRN IV DECREASED GLUCOSE; Start 10/26/16 at 09:30 Glucagon (Glucagen) 1 mg Q15M PRN IM DECREASED GLUCOSE; Start 10/26/16 at 09:30 Glucose (Glutose) 15 gm Q15M PRN BUCCAL DECREASED GLUCOSE; Start 10/26/16 at 09: 30 Insulin Glargine (Lantus) 12 unit DAILY@20 SC Last administered on 10/26/16 20: 38; Admin Dose 12 UNIT; Start 10/26/16 at 20:00 Citric Acid/ Sodium Citrate 30 ml 30 ml BID PO Last administered on 10/27/16 08 :41; Admin Dose 30 ML; Start 10/26/16 at 10:30 Meropenem 100 ml @ 200 mls/hr Q8 IVPB Last administered on 10/27/16 05:31; Admin Dose 200 MLS/HR; Start 10/26/16 at 14:00 Dextrose/Sodium Chloride (D5-1/2ns) 1,000 ml @ 75 mls/hr [id number] IV Last administered on 10/27/16 09:42; Admin Dose 75 MLS/HR; Start 10/26/16 at 17:30 Sodium Hypochlorite 1 applic 1 applic DAILY IRR Last administered on 10/27/16 08:41; Admin Dose 1 APPLIC; Start 10/27/16 at 09:00 Vancomycin HCl 1.5 gm/Sodium Chloride 250 ml @ 83.333 mls/ hr Q24H IVPB ; Start 10/27/16 at 16:00 Potassium Chloride (KCl 40 MEQ/250 ML NS) 250 ml @ 62.5 mls/hr ONCE ONCE IVPB ; Start 10/27/16 at 13:00; Stop 10/27/16 at 16:59 Procedures Procedures PROCEDURE: XR Chest. CLINICAL INDICATION: Shortness of breath. TECHNIQUE: Single frontal view. COMPARISON: 10/25/2016. FINDINGS: The tracheostomy tube and left arm PICC line remain in satisfactory position. There is atelectasis at the lung bases, unchanged. The lungs are otherwise clear. The heart is enlarged. There is calcification in the aorta consistent with atherosclerosis. There are small bilateral pleural effusions. There is no pneumothorax. IMPRESSION: 1. No change from 10/25/2016. RPTAT: QQ .Alhaji Schultz MD, MD Date Time Electronically viewed and signed by .Alhaji Schultz MD, MD on 10/27/2016 09:19 ODLAIS REYNA MD Oct 27, 2016 13:37
[2016-10-27] MEDS ORDERED: FENTAnyl 50 MCG/ML VIAL ONE (16:55)
[2016-10-27] MEDS ORDERED: PROPOFOL 40 ML ONE (16:55)
[2016-10-27] MEDS ORDERED: MIDAZOLAM 1 MG/ML 2 ML INJ ONE (16:56)
[2016-10-27] MEDS: VANCOMYCIN 1.5 GM in SOD CHLORIDE 0.9% 250 ML IVPB SCH (16:56)
[2016-10-27] MEDS ORDERED: METOCLOPRAMIDE 10 MG INJ ONE (16:56)
[2016-10-27] MEDS ORDERED: FAMOTIDINE 20 MG INJ ONE (16:56)
[2016-10-27] MEDS: INSULIN GLARGINE [LANtus] 3 ML PEN SC SCH (20:00)
[2016-10-27] MEDS: ATORVASTATIN 20 MG TAB PO SCH (20:14)
[2016-10-28] VITALS (31 sets, daily range): BP systolic 88–121; BP diastolic 52–61; PULSE 85–99; RESP 12–26
[2016-10-28] MEDS: INSULIN ASPART [NOVOLOG] 3 ML PEN SC SCH ×6 (01:00→20:55)
--- NOTE | 2016-10-28 04:23 | CONS ---
DATE OF ADMISSION: 10/25/2016 DATE OF CONSULTATION: 10/27/2016 TYPE OF CONSULTATION: Surgical. REFERRING PHYSICIAN: DILIP ARELLANO MD CHIEF COMPLAINT: 1. Sacral deep tissue injury. 2. Sepsis with shock. 3. Anemia, questionable bleeding. 4. Acute kidney injury. 5. Metabolic acidosis. HISTORY OF PRESENT ILLNESS: Kimberley Blackwood is a 76-year-old male with multiple significant com orbidities who is a resident of long term facility, [facility] and was found to be significantly hypotensive. He was transferred to [facility] and found to have significant anemia and lactic acidosis with elevated troponin. He was also foun d to have UTI. He is admitted to ICU on pressors. The patient is found to have multiple decubitus ulcers with deep tissue injury of the sacrum. Surgical consult is obtained for further evaluation a nd treatment. The patient is unable to give any information. There are no fevers or chills. There is no cough. No seizure. There is no blood per mouth, however, dark stool per rectum. No blood i n urine. PAST MEDICAL HISTORY: 1. Sepsis. 2. Urinary tract infection. 3. Anemia. 4. Shock. 5. Non-ST elevation myocardial infarction, acute. 6. Ventilator dependent respiratory failure. 7. Dehydration. 8. Acute renal insufficiency. 9. Essential hypertension history. 10. Dyslipidemia. 11. Cerebrovascular accident history. 12. Diabetes mellitus type 2. 13. Chronic obstructive pulmonary disease. 14. Dysphagia. 15. Peptic ulcer disease. 16. Benign prostatic hypertrophy. 17. Coronary artery disease. 18. Arrhythmia. 19. Functional quadriplegia. 20. Metabolic acidosis. PAST SURGICAL HISTORY: 1. Trach 2. PEG. MEDICATIONS: As per MAR. ALLERGIES: As per chart. SOCIAL HISTORY: No current alcohol, drugs or tobacco. Resides at a nursing facility. REVIEW OF SYSTEMS: A 12-point systems negative unless addressed in the HPI. PHYSICAL EXAMINATION: VITAL SIGNS: Temperature is 98.1, pulse 80s to 90s, blood pressure 80s to 100s over 40s to 60s, cur rently on pressor. 100% on 50% FIO2. GENERAL: Awake but noncommunicative. HEENT: The pupils are equal and reactive. No scleral icterus. Mucous membranes are moist. NECK: Trach in place. No JVD. PULMONARY: Decreased breath sounds. No wheezing. CARDIAC: S1, S2 present. ABDOMEN: Soft. PEG in place. EXTREMITIES: Minimal edema. VASCULAR: Capillary refill is 3 seconds. NEUROLOGIC: Awake, but does not follow commands. SKIN: Deep tissue injury of the sacrococcyx. Bilateral lower extremity skin injuries. LABORATORY AND RADIOGRAPHIC DATA : Per chart and HPI with a leukocytosis at 12.9, hemoglobin 8, hem atocrit 27, platelets of 113 and low. Lactic acid was initially 2.3. It is down to 1.6 and normal. Troponin 0.152, down to 0.139 with mild coagulopathy. INR 1.43. ASSESSMENT AND PLAN: Kimberley Blackwood is a 76-year-old male with multiple significant comorbiditi es. 1. Sacral deep tissue injury. Will eventually need excisional debridement; however, the patient is not stable for surgical intervention at this time. Continue offloading, optimize nutrition, vitamin C administration and local care. 2. Lower extremity decubitus ulcerations as above. 3. Shock (sepsis plus or minus hypovolemia, plus or minus cardiac). 4. Continue judicious fluid management, cardiac optimization and treatment of underlying infections . 5. Urinary tract infection. Continue antibiotics. 6. Significant anemia of unknown etiology. EGD performed. No sources identified. Apparently howev er, patient needs a colonoscopy. 7. Diabetes. Continue nutrition and medication control. 8. Elevated troponin with non-ST elevation myocardial infarction. Continue cardiac optimization. 9. History of cerebrovascular accident. Continue medical optimization. 10. Peptic ulcer disease. Continue proton pump inhibitors. 11. Coronary artery disease. Continue cardiac optimization. 12. Acute renal insufficiency secondary to above. Continue judicious fluid management. 13. Ventilator-dependent respiratory failure. Continue pulmonary toilet. 14. Dysphagia and tube feeds. Thank you very much for consulting me in this patient's care. Dictated By: MINNIE TODD/GENOVEVA Conf#: [id number] DID#: [id number]
[2016-10-28] MEDS: DEXTROSE 5%-0.45% NACL 1,000 ML IV SCH (04:49)
[2016-10-28] MEDS: MEROPENEM 500 MG/100 ML (PMX) 100 ML IVPB SCH ×4 (05:02→22:00)
[2016-10-28 05:59] LABS: ADD SCAN DIFF NO
[2016-10-28 06:16] LABS: CALCIUM 7.4 mg/dl (8.4-10.2); CREATININE 0.87 mg/dl (0.61-1.24); MAGNESIUM 2.8 mg/dl (1.7-2.5); POTASSIUM 3.3 mmol/L (3.5-5.1)
--- NOTE | 2016-10-28 06:24 | GILP ---
DATE OF PROCEDURE: PROCEDURE: Esophagogastroduodenoscopy with biopsies. BRIEF HISTORY AND INDICATIONS: The patient is being evaluated for significant anemia. PREMEDICATION: Monitored anesthesia care by anesthesiologist. SURGEON: Raymon Overton MD. INSTRUMENT USED: Olympus panendoscope. TECHNIQUE: After informed consent, with the patient/relatives understanding the procedure, its indic ations, potential risks and complications, including but not limited to: allergic reaction, bleeding , perforation or infection, and after all pertinent questions were answered to the patients satisfac tion, the patient/relatives signed witnessed informed consent. Following this, premedication was administered slowly IV push under careful cardiovascular and respi ratory monitoring with pulse oximetry, automatic blood pressure and media monitor. Once the sedative effect was achieved the patient was place in the left lateral decubitus, the panen doscope was introduced and advanced under visual control. Careful examination of the upper gastrointestinal tract, both on insertion as well as withdrawal of the instrument disclosed the following findings: ESOPHAGUS: The mucosa of the entire esophagus appears within normal limits. There is no evidence of esophagitis, varices, neoplasm or stricture. No hiatal hernia identified. STOMACH: Upon entrance to the stomach, air was insufflated, and the gastric alvarado distended normall y. There is the presence of a gastrostomy tube. Otherwise, the gastric mucosa appears unremarkable . PYLORUS: The pylorus appears patent and within normal limits, with no evidence of gastric outlet obs truction. DUODENUM: The duodenal mucosa was carefully examined in the duodenal bulb as well as the second port ion of the duodenum and appears unremarkable with no evidence of duodenitis, ulcer or neoplasm. The instrument was then withdrawn, the patient tolerated the procedure well and was transfer out of the endoscopy suite awake, and in good condition to continue recovery under observation IMPRESSION: 1. Gastrostomy tube in the body of the stomach. 2. Otherwise, normal esophagogastroduodenoscopy with no bleeding site identified. PLAN: The patient will undergo colonoscopy. Unfortunately preparation is suboptimal today; therefor e, this procedure had to be postponed and further preparation will be administered to the patient. Dictated By: RAYMON OVERTON MS/GENOVEVA Conf#: [id number] DID#: [id number]
[2016-10-28 07:21] LABS: BASOPHILS % 0.2 % (0.0-2.0); EOSINOPHILS # 0.1 10^3/ul (0.0-0.5); EOSINOPHILS % 0.8 % (0.0-7.0); HEMATOCRIT 27.5 % (42.0-52.0); HEMOGLOBIN 8.4 g/dl (14.0-18.0); LYMPHOCYTES # 1.2 10^3/ul (0.8-2.9); LYMPHOCYTES % 9.1 % (15.0-51.0); MEAN CORPUSCULAR HEMOGLOBIN 25.9 pg (29.0-33.0); MEAN CORPUSCULAR HGB CONC 30.5 g/dl (32.0-37.0); MEAN CORPUSCULAR VOLUME 84.9 fl (82.0-101.0); MEAN PLATELET VOLUME 13.5 fl (7.4-10.4); MONOCYTE # 0.5 10^3/ul (0.3-0.9); NEUTROPHIL # 11.3 10^3/ul (1.6-7.5); NEUTROPHILS % 84.6 % (39.0-77.0); PLATELET COUNT 134 10^3/UL (140-415); RED BLOOD COUNT 3.24 10^6/ul (4.70-6.10); RED CELL DISTRIBUTION WIDTH 16.4 % (11.5-14.5); WHITE BLOOD COUNT 13.3 10^3/ul (4.8-10.8)
--- NOTE | 2016-10-28 08:28 | CONS ---
Date/Time of Note Date/Time of Note DATE: 10/28/16 TIME: 08:18 Assessment/Plan Assessment/Plan Additional Assessment/Plan Acute anemia Evaluate GI bleed versus chronic iron deficiency vs other etiology EGD:Gastrostomy tube in the body of the stomach. Monitor H&H every 8 hours, transfuse 2 units for hemoglobin less than 7.5 Monitor labs Continue PPI therapy Colonoscopy on Sunday with Dr. Overton. Pt and family advised of R/B/A to procedure and provide informed consent to proceed Ventilator dependent respiratory failure Pulmonology following Status post tracheostomy Decubitus ulcer sacral Continue supportive care Management per Primary Diabetes mellitus Continue home medication Management per Primary History of Hypertension Continue home medication Management per Primary Dyslipidemia Continue home medication Management per Primary Further recommendations depend on clinical course Patient seen in collaboration with Dr. Overton Consultation Date/Type/Reason Admit Date/Time Oct 25, 2016 at 10:54 Initial Consult Date 10/25/16 Type of Consultation: Gastroenterology Referring Provider: DILIP ARELLANO MD 24 HR Interval Summary Free Text/Dictation Hemoglobin stable Loose stool and rectal bag Will start tube feedings per dietary recommendations Exam/Review of Systems Vital Signs Vitals Vital Signs Date Time Temp Pulse Resp B/P Pulse Ox O2 Delivery O2 Flow Rate FiO2 10/28/16 07:00 86 20 101/54 100 10/28/16 06:00 Mechanical Ventilator 10/28/16 05:47 30 10/28/16 04:00 98.5 Intake and Output 10/27/16 10/27/16 10/28/16 15:00 23:00 07:00 Intake Total 420 ml 464.67 ml 625 ml Output Total 915 ml 570 ml 750 ml Balance -495 ml -105.33 ml -125 ml Exam Constitutional: alert, oriented, well developed Psych: nl mood/affect Head: normocephalic Eyes: EOMI, nl conjunctiva, nl lids ENMT: nl external ears & nose, nl lips & teeth, nl nasal mucosa & septum Respiratory: Status post tracheostomy Cardiovascular: regular rate and rhythm Gastrointestinal: soft, non-tender Musculoskeletal: nl extremities to inspection Neurological: TECHNICAL AGRONOMIST II-XII intact Results Result Diagram: 10/28/16 0530 10/28/16 0530 Results 24 hrs Laboratory Tests Test 10/27/16 08:33 10/27/16 12:43 10/27/16 17:00 10/27/16 20:10 Bedside Glucose 91 91 92 86 Test 10/28/16 01:18 10/28/16 04:48 10/28/16 05:30 Bedside Glucose 115 100 White Blood Count 13.3 H Red Blood Count 3.24 L Hemoglobin 8.4 L Hematocrit 27.5 L Mean Corpuscular Volume 84.9 Mean Corpuscular Hemoglobin 25.9 L Mean Corpuscular Hemoglobin Concent 30.5 L Red Cell Distribution Width 16.4 H Platelet Count 134 L Mean Platelet Volume 13.5 H Neutrophils % 84.6 H Lymphocytes % 9.1 L Monocytes % 4.0 Eosinophils % 0.8 Basophils % 0.2 Nucleated Red Blood Cells % 0.0 Neutrophils # 11.3 H Lymphocytes # 1.2 Monocytes # 0.5 Eosinophils # 0.1 Basophils # 0.0 Nucleated Red Blood Cells # 0.0 Sodium Level 151 H Potassium Level 3.3 L Chloride Level 127 H Carbon Dioxide Level 19 L Anion Gap 8 Blood Urea Nitrogen 78 #H Creatinine 0.87 Glucose Level 102 Calcium Level 7.4 L Magnesium Level 2.8 H Medications Medications Current Medications Dextrose (D50w Syringe) 50 ml ONCE PRN IV POC BLOOD GLUCOSE <250 MG/DL; Start 10/25/16 at 11:00 Ondansetron HCl (Zofran Inj) 4 mg Q6H PRN IV NAUSEA AND/OR VOMITING Last administered on 10/27/16 13:51; Admin Dose 4 MG; Start 10/25/16 at 11:00 Nitroglycerin (Nitroglycerin (Sl Tab) 0.4 Mg) 1 tab Q5M PRN SL CHEST PAIN; Start 10/25/16 at 11:00 Acetaminophen (Tylenol Tab) 650 mg Q6H PRN PO PAIN LEVEL 1-3 OR FEVER; Start at 11:00 Acetaminophen (Tylenol Supp) 650 mg Q4H PRN [place] PAIN LEVEL 1-3 OR FEVER; Start 10/25/16 at 11:00 Docusate Sodium (Colace) 100 mg Q12H PRN PO CONSTIPATION; Start 10/25/16 at 11: 00 Bisacodyl (Dulcolax Supp) 10 mg DAILY PRN [place] CONSTIPATION; Start 10/25/16 at 11: 00 Amiodarone HCl (Cordarone) 400 mg BID GTB Last administered on 10/27/16 20:13; Admin Dose 400 MG; Start 10/25/16 at 21:00 Ascorbic Acid (Vitamin C) 500 mg DAILY GTB Last administered on 10/27/16 08:40 ; Admin Dose 500 MG; Start 10/26/16 at 09:00 Chlorhexidine Gluconate (Peridex) 15 ml Q12 MM Last administered on 10/27/16 20 :13; Admin Dose 15 ML; Start 10/25/16 at 21:00 Collagenase (Santyl) 1 applic DAILY TOP Last administered on 10/27/16 08:41; Admin Dose 1 APPLIC; Start 10/26/16 at 09:00 Ferrous Sulfate (Feosol Liquid Cup) 330 mg DAILY GTB Last administered on 08:40; Admin Dose 330 MG; Start 10/26/16 at 09:00 Multivitamins Therapeutic (Theragran) 1 tab DAILY GTB Last administered on 08:40; Admin Dose 1 TAB; Start 10/26/16 at 09:00 Lactobacillus Acidoph/Bulgaricus (Floranex) 1 tab BID PO Last administered on 20:13; Admin Dose 1 TAB; Start 10/25/16 at 21:00 Fenofibrate 145 mg 145 mg DAILY PO Last administered on 10/27/16 08:40; Admin Dose 145 MG; Start 10/26/16 at 09:00 Dobutamine HCl/ Dextrose 250 ml @ 12 mls/hr TITRATE IV Last administered on 12:19; Admin Dose 9.4 MLS/HR; Start 10/25/16 at 11:30 IV Flush (NS 10 ml) 10 ml PRN PRN IV IV PROTOCOL; Start 10/25/16 at 11:30 Atorvastatin Calcium (Lipitor) 20 mg HS PO Last administered on 10/27/16 20:14 ; Admin Dose 20 MG; Start 10/25/16 at 21:00 Pantoprazole (Protonix Iv) 40 mg BID IV Last administered on 10/27/16 20:13; Admin Dose 40 MG; Start 10/25/16 at 21:00 Insulin Aspart NOVOLOG *MILD* ALGORI... Q4 SC Last administered on 10/26/16 20: 31; Admin Dose 2 UNIT; Start 10/26/16 at 13:00 Norepinephrine/ Dextrose (Levophed/D5W) 250 ml @ 0.46 mls/hr TITRATE IV Last administered on 10/26/16 13:48; Admin Dose 1.87 MLS/HR; Start 10/26/16 at 09:30 Miscellaneous Information 1 ea NOTE XX ; Start 10/26/16 at 09:30 Glucose (Glutose) 15 gm Q15M PRN PO DECREASED GLUCOSE; Start 10/26/16 at 09:30 Glucose (Glutose) 22.5 gm Q15M PRN PO DECREASED GLUCOSE; Start 10/26/16 at 09:30 Dextrose (D50w Syringe) 25 ml Q15M PRN IV DECREASED GLUCOSE; Start 10/26/16 at 09:30 Dextrose (D50w Syringe) 50 ml Q15M PRN IV DECREASED GLUCOSE; Start 10/26/16 at 09:30 Glucagon (Glucagen) 1 mg Q15M PRN IM DECREASED GLUCOSE; Start 10/26/16 at 09:30 Glucose (Glutose) 15 gm Q15M PRN BUCCAL DECREASED GLUCOSE; Start 10/26/16 at 09: 30 Insulin Glargine (Lantus) 12 unit DAILY@20 SC Last administered on 10/26/16 20: 38; Admin Dose 12 UNIT; Start 10/26/16 at 20:00 Citric Acid/ Sodium Citrate 30 ml 30 ml BID PO Last administered on 10/27/16 20 :13; Admin Dose 30 ML; Start 10/26/16 at 10:30 Meropenem 100 ml @ 200 mls/hr Q8 IVPB Last administered on 10/28/16 05:02; Admin Dose 200 MLS/HR; Start 10/26/16 at 14:00 Dextrose/Sodium Chloride (D5-1/2ns) 1,000 ml @ 75 mls/hr [id number] IV Last administered on 10/28/16 04:49; Admin Dose 75 MLS/HR; Start 10/26/16 at 17:30 Sodium Hypochlorite 1 applic 1 applic DAILY IRR Last administered on 10/27/16 08:41; Admin Dose 1 APPLIC; Start 10/27/16 at 09:00 Vancomycin HCl/ Sodium Chloride (Vancocin/NS) 250 ml @ 83.333 mls/ hr Q24H IVPB Last administered on 4/7/17at 16:56; Admin Dose 83.333 MLS/HR; Start at 16:00 SABINE STEWART Oct 28, 2016 08:28
[2016-10-28] MEDS: AMIODARONE 200 MG TAB GTB SCH ×2 (09:17→20:54)
[2016-10-28] MEDS: MULTIVITAMINS THERAPEUTIC TAB GTB SCH (09:18)
[2016-10-28] MEDS: ASCORBIC ACID 500 MG TAB GTB SCH (09:19)
[2016-10-28] MEDS: SODIUM HYPOCHLORITE 0.125% 473 ML BTL IRR SCH (09:19)
[2016-10-28] MEDS: CITRIC ACID/NA CITRATE 30 ML CUP PO SCH ×2 (09:20→20:54)
[2016-10-28] MEDS: FENOFIBRATE 145 MG TAB PO SCH (09:20)
[2016-10-28] MEDS: PANTOPRAZOLE 40 MG INJ IV SCH ×2 (09:20→20:55)
[2016-10-28] MEDS: LACTOBACILLUS CHEW TAB PO SCH ×2 (09:20→20:54)
[2016-10-28] MEDS: CHLORHEXIDINE GLUCONATE 15 ML UD CUP MM SCH ×2 (09:20→20:54)
[2016-10-28] MEDS: FERROUS SULFATE 60 MG/ML 5ML CUP GTB SCH (09:27)
[2016-10-28] MEDS: COLLAGENASE 30 GM TUBE TOP SCH (09:31)
[2016-10-28] MEDS: D5-0.2 NACL + KCL 20 MEQ 1,000 ML IV SCH ×2 (09:45→22:20)
--- NOTE | 2016-10-28 10:51 | PN ---
Date/Time of Note Date/Time of Note DATE: 10/28/16 TIME: 10:43 Assessment/Plan VTE Prophylaxis VTE Prophylaxis Intervention: SCD's Lines/Catheters IV Catheter Type (from [facility]): PICC Line Central line still needed: Yes Urinary Cath still in place: Yes Reason Cath still needed: other (indicate) Assessment/Plan Chief Complaint/Hosp Course ASSESSMENT AND PLAN: 1. Sepsis, likely secondary to urinary tract infection Was placed on pressors on 10/28/1999 10:43 PM , off pressors Continue Zosyn and Aztreonam. Infectious disease doctor has been consulted. 2. Ventilator-dependent respiratory failure. Continue vent management by casting coordinator. 3. Non-ST myocardial infarction with elevated troponin, likely demand ischemia secondary to anemia. Follow-up cardiology recommendations 4. Anemia, secondary to GI bleed positive guaiac. precision printing worker consulted , continue IV PPI. Status post 2 units of packed red blood cell. Follow hemoglobin hematocrit. No evidence of bleeding on upper endoscopy. Plan for colonoscopy on 10/30/2016 5. Severe dehydration, improving, status post 2 units of packed red blood cells and IV fluid. Follow renal panel. 6. Acute renal insufficiency. Secondary to #5 as above, nephrology has been consulted. 7. Diabetic mellitus . Place the patient on Lantus, continue insulin sliding scale. 8. History of essential hypertension. At this time, the patient is hypotensive secondary to septic shock. Hold all blood pressure medication. 9. Dyslipidemia, on statin. 10. GI bleed, gastroenterology been consulted continue IV PPI CONDITION: Poor and critical. We will continue to monitor patient closely. Further recommendations, management, and treatment as per clinical course. Critical time 40 minutes Transfer to telemetry floor Problems: Subjective 24 Hr Interval Summary Free Text/Dictation No acute changes Off pressors Tolerating PEG tube feeding Exam/Review of Systems Vital Signs Vitals Vital Signs Date Time Temp Pulse Resp B/P Pulse Ox O2 Delivery O2 Flow Rate FiO2 10/28/16 08:00 92 10/28/16 08:00 98.4 18 109/61 100 Mechanical Ventilator 10/28/16 05:47 30 Intake and Output 10/27/16 10/27/16 10/28/16 15:00 23:00 07:00 Intake Total 420 ml 464.67 ml 625 ml Output Total 915 ml 570 ml 750 ml Balance -495 ml -105.33 ml -125 ml Exam General: The patient is not in acute distress. HEENT: Atraumatic, normocephalic. The pupils are equal and round . Neck: Supple , trach in place Chest: Normal Lungs: Decreased breath sounds bilateral lower lung field Heart: Normal S1-S2, Regular rhythm and rate. Abdomen: Soft , nontender, nondistended , bowel sounds are present. PEG tube in place Extremities: Stage III to IV sacral decubitus, decubitus ulcer bilateral lower extremity, no edema no cyanosis Neurologic: ,The patient is awake, alert Results Result Diagram: 10/28/16 0530 10/28/1630 Results 24 hrs Laboratory Tests Test 10/27/16 12:43 10/27/16 17:00 10/27/16 20:10 10/28/16 01:18 Bedside Glucose 91 92 86 115 Test 10/28/16 04:48 10/28/16 05:30 10/28/16 09:36 Bedside Glucose 100 110 White Blood Count 13.3 H Red Blood Count 3.24 L Hemoglobin 8.4 L Hematocrit 27.5 L Mean Corpuscular Volume 84.9 Mean Corpuscular Hemoglobin 25.9 L Mean Corpuscular Hemoglobin Concent 30.5 L Red Cell Distribution Width 16.4 H Platelet Count 134 L Mean Platelet Volume 13.5 H Neutrophils % 84.6 H Lymphocytes % 9.1 L Monocytes % 4.0 Eosinophils % 0.8 Basophils % 0.2 Nucleated Red Blood Cells % 0.0 Neutrophils # 11.3 H Lymphocytes # 1.2 Monocytes # 0.5 Eosinophils # 0.1 Basophils # 0.0 Nucleated Red Blood Cells # 0.0 Sodium Level 151 H Potassium Level 3.3 L Chloride Level 127 H Carbon Dioxide Level 19 L Anion Gap 8 Blood Urea Nitrogen 78 #H Creatinine 0.87 Glucose Level 102 Calcium Level 7.4 L Magnesium Level 2.8 H Medications Medications Current Medications Dextrose (D50w Syringe) 50 ml ONCE PRN IV POC BLOOD GLUCOSE <250 MG/DL; Start 10/25/16 at 11:00 Ondansetron HCl (Zofran Inj) 4 mg Q6H PRN IV NAUSEA AND/OR VOMITING Last administered on 10/27/16t 13:51; Admin Dose 4 MG; Start 10/25/16 at 11:00 Nitroglycerin (Nitroglycerin (Sl Tab) 0.4 Mg) 1 tab Q5M PRN SL CHEST PAIN; Start 10/25/16 at 11:00 Acetaminophen (Tylenol Tab) 650 mg Q6H PRN PO PAIN LEVEL 1-3 OR FEVER; Start at 11:00 Acetaminophen (Tylenol Supp) 650 mg Q4H PRN [place] PAIN LEVEL 1-3 OR FEVER; Start 10/25/16 at 11:00 Docusate Sodium (Colace) 100 mg Q12H PRN PO CONSTIPATION; Start 10/25/16 at 11: 00 Bisacodyl (Dulcolax Supp) 10 mg DAILY PRN [place] CONSTIPATION; Start 10/25/16 at 11: 00 Amiodarone HCl (Cordarone) 400 mg BID GTB Last administered on 10/28/16 09:17; Admin Dose 400 MG; Start 10/25/16 at 21:00 Ascorbic Acid (Vitamin C) 500 mg DAILY GTB Last administered on 10/28/16 09:19 ; Admin Dose 500 MG; Start 10/26/16 at 09:00 Chlorhexidine Gluconate (Peridex) 15 ml Q12 MM Last administered on 10/28/16 09 :20; Admin Dose 15 ML; Start 10/25/16 at 21:00 Collagenase (Santyl) 1 applic DAILY TOP Last administered on 10/28/16 09:31; Admin Dose 1 APPLIC; Start 10/26/16 at 09:00 Ferrous Sulfate (Feosol Liquid Cup) 330 mg DAILY GTB Last administered on 09:27; Admin Dose 330 MG; Start 10/26/16 at 09:00 Multivitamins Therapeutic (Theragran) 1 tab DAILY GTB Last administered on 09:18; Admin Dose 1 TAB; Start 10/26/16 at 09:00 Lactobacillus Acidoph/Bulgaricus (Floranex) 1 tab BID PO Last administered on 09:20; Admin Dose 1 TAB; Start 10/25/16 at 21:00 Fenofibrate 145 mg 145 mg DAILY PO Last administered on 10/28/16 09:20; Admin Dose 145 MG; Start 10/26/16 at 09:00 Dobutamine HCl/ Dextrose 250 ml @ 12 mls/hr TITRATE IV Last administered on 12:19; Admin Dose 9.4 MLS/HR; Start 10/25/16 at 11:30 IV Flush (NS 10 ml) 10 ml PRN PRN IV IV PROTOCOL; Start 10/25/16 at 11:30 Atorvastatin Calcium (Lipitor) 20 mg HS PO Last administered on 10/27/16 20:14 ; Admin Dose 20 MG; Start 10/25/16 at 21:00 Pantoprazole (Protonix Iv) 40 mg BID IV Last administered on 10/28/16 09:20; Admin Dose 40 MG; Start 10/25/16 at 21:00 Insulin Aspart NOVOLOG *MILD* ALGORI... Q4 SC Last administered on 10/26/16 20: 31; Admin Dose 2 UNIT; Start 10/26/16 at 13:00 Norepinephrine/ Dextrose (Levophed/D5W) 250 ml @ 0.46 mls/hr TITRATE IV Last administered on 10/26/16 13:48; Admin Dose 1.87 MLS/HR; Start 10/26/16 at 09:30 Miscellaneous Information 1 ea NOTE XX ; Start 10/26/16 at 09:30 Glucose (Glutose) 15 gm Q15M PRN PO DECREASED GLUCOSE; Start 10/26/16 at 09:30 Glucose (Glutose) 22.5 gm Q15M PRN PO DECREASED GLUCOSE; Start 10/26/16 at 09:30 Dextrose (D50w Syringe) 25 ml Q15M PRN IV DECREASED GLUCOSE; Start 10/26/16 at 09:30 Dextrose (D50w Syringe) 50 ml Q15M PRN IV DECREASED GLUCOSE; Start 10/26/16 at 09:30 Glucagon (Glucagen) 1 mg Q15M PRN IM DECREASED GLUCOSE; Start 10/26/16 at 09:30 Glucose (Glutose) 15 gm Q15M PRN BUCCAL DECREASED GLUCOSE; Start 10/26/16 at 09: 30 Insulin Glargine (Lantus) 12 unit DAILY@20 SC Last administered on 10/26/16 20: 38; Admin Dose 12 UNIT; Start 10/26/16 at 20:00 Citric Acid/ Sodium Citrate 30 ml 30 ml BID PO Last administered on 10/28/16 09 :20; Admin Dose 30 ML; Start 10/26/16 at 10:30 Meropenem (Merrem 500 Mg/ 100 ml (Pmx)) 100 ml @ 200 mls/hr Q8 IVPB Last administered on 10/28/16 05:02; Admin Dose 200 MLS/HR; Start 10/26/16 at 14:00 Sodium Hypochlorite 1 applic 1 applic DAILY IRR Last administered on 10/28/16 09:19; Admin Dose 1 APPLIC; Start 10/27/16 at 09:00 Vancomycin HCl 1.5 gm/Sodium Chloride 250 ml @ 83.333 mls/ hr Q24H IVPB Last administered on 10/27/16 16:56; Admin Dose 83.333 MLS/HR; Start 10/27/16 at 16:00 Potassium Chloride/Dextrose/ Sod Cl (D5-1/4ns + KCl 20 Meq) 1,000 ml @ 75 mls/ hr [id number] IV Last administered on 10/28/16 09:45; Admin Dose 75 MLS/HR; Start 10/28/16 at 09:00 Miscellaneous Information (*Rx Drug Level Order Reminder*) VANCOMYCIN TROUGH 10/29 AT 1500 ONCE ONCE XX ; Start 10/29/16 at 15:00; Stop 10/29/16 at 15:01 DILIP ARELLANO MD Oct 28, 2016 10:51
[2016-10-28] MEDS ORDERED: POTASSIUM CHLORIDE (SR) 10 MEQ TAB PO ONE (11:00)
[2016-10-28] MEDS ORDERED: POTASSIUM CHLORIDE 20 MEQ POWDER FOR ORAL SOLN GTB SCH (12:00)
--- NOTE | 2016-10-28 12:06 | CONS ---
Date/Time of Note Date/Time of Note DATE: 10/28/16 TIME: 12:06 Assessment/Plan Assessment/Plan Chief Complaint/Hosp Course ID PROGRESS NOTE CURRENT ABX=> Vanco IV + Merrem 24H INTERVAL SUMMARY * Resting comfortably, awake, nonverbal eyes tracking * 1. MICROBIOLOGY: Blood culture growing gram-negative rods and gram-positive cocci in clusters. Urine culture growing E. coli and Morganella morganii, both susceptible to cefotaxime and gentamicin. Wound culture growing gram-negative rods. * BLOOD CX Organism 1 PROTEUS MIRABILIS Organism 2 COAGULASE NEGATIVE STAPH P. MIRAB COAG NEG M.I.C. RX M.I.C. RX --------- --- --------- --- AMPICILLIN >=32 R CEFAZOLIN >=64 R CEFOTAXIME S CIPROFLOXACIN >=4 R >=8 R CLINDAMYCIN <=0.25 S DOXYCYCLINE S ERYTHROMYCIN <=0.25 S GENTAMICIN 4 S LEVOFLOXACIN >=8 R >=8 R OXACILLIN 2 R PENICILLIN-G >=0.5 R RIFAMPIN <=0.5 S VANCOMYCIN 2 S TOBRAMYCIN >=16 R TRIMETHOPRIM/SULFAMETHOXAZOLE >=320 R 80 R URINE CULTURE Final Organism 1 ESCHERICHIA COLI COLONY COUNT >100,000 CFU/ml Organism 2 MORGANELLA MORGANII SSP MORG. E COLI MORMOSP M.I.C. RX M.I.C. RX --------- --- --------- --- AMIKACIN 4 S AMPICILLIN >=32 R CEFAZOLIN S CEFOTAXIME S S CIPROFLOXACIN >=4 R >=4 R GENTAMICIN <=1 S <=1 S LEVOFLOXACIN >=8 R >=8 R NITROFURANTOIN 64 I R TOBRAMYCIN >=16 R <=1 S TRIMETHOPRIM/SULFAMETHOXAZOLE >=320 R >=320 R WOUND CULTURE Preliminary Organism 1 ACINETOBACTER BAUMANNII QUANTITY 4+ A.BAUMANNI M.I.C. RX --------- --- AMIKACIN R CEFTAZIDIME >=64 R CIPROFLOXACIN >=4 R GENTAMICIN 8 I IMIPENEM >=16 R LEVOFLOXACIN >=8 R TOBRAMYCIN 8 I TRIMETHOPRIM/SULFAMETHOXAZOLE >=320 R PIPERACILLIN/TAZOBACTAM >=128 R PHYSICAL EXAMINATION: GENERAL: VSS, NAD, Afebrile HEENT: Unremarkable NECK: Supple, trach-> Vent secure CHEST: Rise symmetrical, without dyspnea on observation HEART: Pulse RRR ABDOMEN: Soft, peg EXTREMITIES: Warm, trace edema SKIN: See wound photos ID ASSESSMENT 76 yo M admit with: 1. Severe sepsis with shock, Polymicrobial bacteremia=> multifactorial. 2. Acute anemia. 3. Recurrent urinary tract infection.URINE CULTURE Final Organism 1 ESCHERICHIA COLI COLONY COUNT >100,000 CFU/ml Organism 2 MORGANELLA MORGANII SSP MORG. 4. Chronic respiratory failure. 5. Unstageable sacral decubitus => GROWING MDRO * OUND CULTURE Preliminary Organism 1 ACINETOBACTER BAUMANNII QUANTITY 4+ 6. Diabetes, blood sugars controlled. 7. Atrial fibrillation. MRSA Nares -> INVASIVES: Trach, PEG, Ferreira, left upper extremity PICC line placed on 2016. ABX ALLERGY: KNDA CURRENT ABX: => Vanco IV + Merrem ID RECOMMENDATIONS 1. Continue current ABX => wound growing MDRO ACBA -- hold off on adding Colistin IV, local wound care w/debridement if possible 2. Observe over the weekend on ABX -> Reassess by ID team next week . Problems: Consultation Date/Type/Reason Admit Date/Time Oct 25, 2016 at 10:54 Initial Consult Date 10/25/16 Type of Consultation: ID Referring Provider: DILIP ARELLANO MD Exam/Review of Systems Vital Signs Vitals Vital Signs Date Time Temp Pulse Resp B/P Pulse Ox O2 Delivery O2 Flow Rate FiO2 10/28/16 08:00 92 10/28/16 08:00 98.4 18 109/61 100 Mechanical Ventilator 10/28/16 05:47 30 Intake and Output 10/27/16 10/27/16 10/28/16 15:00 23:00 07:00 Intake Total 420 ml 464.67 ml 625 ml Output Total 915 ml 570 ml 750 ml Balance -495 ml -105.33 ml -125 ml Results Result Diagram: 10/28/16 0530 10/28/16 0530 Results 24 hrs Laboratory Tests Test 10/27/16 12:43 10/27/16 17:00 10/27/16 20:10 10/28/16 01:18 Bedside Glucose 91 92 86 115 Test 10/28/16 04:48 10/28/16 05:30 10/28/16 09:36 Bedside Glucose 100 110 White Blood Count 13.3 H Red Blood Count 3.24 L Hemoglobin 8.4 L Hematocrit 27.5 L Mean Corpuscular Volume 84.9 Mean Corpuscular Hemoglobin 25.9 L Mean Corpuscular Hemoglobin Concent 30.5 L Red Cell Distribution Width 16.4 H Platelet Count 134 L Mean Platelet Volume 13.5 H Neutrophils % 84.6 H Lymphocytes % 9.1 L Monocytes % 4.0 Eosinophils % 0.8 Basophils % 0.2 Nucleated Red Blood Cells % 0.0 Neutrophils # 11.3 H Lymphocytes # 1.2 Monocytes # 0.5 Eosinophils # 0.1 Basophils # 0.0 Nucleated Red Blood Cells # 0.0 Sodium Level 151 H Potassium Level 3.3 L Chloride Level 127 H Carbon Dioxide Level 19 L Anion Gap 8 Blood Urea Nitrogen 78 #H Creatinine 0.87 Glucose Level 102 Calcium Level 7.4 L Magnesium Level 2.8 H Medications Medications Current Medications Dextrose (D50w Syringe) 50 ml ONCE PRN IV POC BLOOD GLUCOSE <250 MG/DL; Start 10/25/16 at 11:00 Ondansetron HCl (Zofran Inj) 4 mg Q6H PRN IV NAUSEA AND/OR VOMITING Last administered on 10/27/16t 13:51; Admin Dose 4 MG; Start 10/25/16 at 11:00 Nitroglycerin (Nitroglycerin (Sl Tab) 0.4 Mg) 1 tab Q5M PRN SL CHEST PAIN; Start 10/25/16 at 11:00 Acetaminophen (Tylenol Tab) 650 mg Q6H PRN PO PAIN LEVEL 1-3 OR FEVER; Start at 11:00 Acetaminophen (Tylenol Supp) 650 mg Q4H PRN IN PAIN LEVEL 1-3 OR FEVER; Start 10/25/16 at 11:00 Docusate Sodium (Colace) 100 mg Q12H PRN PO CONSTIPATION; Start 10/25/16 at 11: 00 Bisacodyl (Dulcolax Supp) 10 mg DAILY PRN IN CONSTIPATION; Start 10/25/16 at 11: 00 Amiodarone HCl (Cordarone) 400 mg BID GTB Last administered on 10/28/16 09:17; Admin Dose 400 MG; Start 10/25/16 at 21:00 Ascorbic Acid (Vitamin C) 500 mg DAILY GTB Last administered on 10/28/16 09:19 ; Admin Dose 500 MG; Start 10/26/16 at 09:00 Chlorhexidine Gluconate (Peridex) 15 ml Q12 MM Last administered on 10/28/16 09 :20; Admin Dose 15 ML; Start 10/25/16 at 21:00 Collagenase (Santyl) 1 applic DAILY TOP Last administered on 10/28/16 09:31; Admin Dose 1 APPLIC; Start 10/26/16 at 09:00 Ferrous Sulfate (Feosol Liquid Cup) 330 mg DAILY GTB Last administered on 09:27; Admin Dose 330 MG; Start 10/26/16 at 09:00 Multivitamins Therapeutic (Theragran) 1 tab DAILY GTB Last administered on 09:18; Admin Dose 1 TAB; Start 10/26/16 at 09:00 Lactobacillus Acidoph/Bulgaricus (Floranex) 1 tab BID PO Last administered on 09:20; Admin Dose 1 TAB; Start 10/25/16 at 21:00 Fenofibrate 145 mg 145 mg DAILY PO Last administered on 10/28/16 09:20; Admin Dose 145 MG; Start 10/26/16 at 09:00 Dobutamine HCl/ Dextrose 250 ml @ 12 mls/hr TITRATE IV Last administered on 12:19; Admin Dose 9.4 MLS/HR; Start 10/25/16 at 11:30 IV Flush (NS 10 ml) 10 ml PRN PRN IV IV PROTOCOL; Start 10/25/16 at 11:30 Atorvastatin Calcium (Lipitor) 20 mg HS PO Last administered on 10/27/16 20:14 ; Admin Dose 20 MG; Start 10/25/16 at 21:00 Pantoprazole (Protonix Iv) 40 mg BID IV Last administered on 10/28/16 09:20; Admin Dose 40 MG; Start 10/25/16 at 21:00 Insulin Aspart NOVOLOG *MILD* ALGORI... Q4 SC Last administered on 10/26/16 20: 31; Admin Dose 2 UNIT; Start 10/26/16 at 13:00 Norepinephrine/ Dextrose (Levophed/D5W) 250 ml @ 0.46 mls/hr TITRATE IV Last administered on 10/26/16 13:48; Admin Dose 1.87 MLS/HR; Start 10/26/16 at 09:30 Miscellaneous Information 1 ea NOTE XX ; Start 10/26/16 at 09:30 Glucose (Glutose) 15 gm Q15M PRN PO DECREASED GLUCOSE; Start 10/26/16 at 09:30 Glucose (Glutose) 22.5 gm Q15M PRN PO DECREASED GLUCOSE; Start 10/26/16 at 09:30 Dextrose (D50w Syringe) 25 ml Q15M PRN IV DECREASED GLUCOSE; Start 10/26/16 at 09:30 Dextrose (D50w Syringe) 50 ml Q15M PRN IV DECREASED GLUCOSE; Start 10/26/16 at 09:30 Glucagon (Glucagen) 1 mg Q15M PRN IM DECREASED GLUCOSE; Start 10/26/16 at 09:30 Glucose (Glutose) 15 gm Q15M PRN BUCCAL DECREASED GLUCOSE; Start 10/26/16 at 09: 30 Insulin Glargine (Lantus) 12 unit DAILY@20 SC Last administered on 10/26/16 20: 38; Admin Dose 12 UNIT; Start 10/26/16 at 20:00 Citric Acid/ Sodium Citrate 30 ml 30 ml BID PO Last administered on 10/28/16 09 :20; Admin Dose 30 ML; Start 10/26/16 at 10:30 Meropenem (Merrem 500 Mg/ 100 ml (Pmx)) 100 ml @ 200 mls/hr Q8 IVPB Last administered on 10/28/16 05:02; Admin Dose 200 MLS/HR; Start 10/26/16 at 14:00 Sodium Hypochlorite 1 applic 1 applic DAILY IRR Last administered on 10/28/16 09:19; Admin Dose 1 APPLIC; Start 10/27/16 at 09:00 Vancomycin HCl 1.5 gm/Sodium Chloride 250 ml @ 83.333 mls/ hr Q24H IVPB Last administered on 10/27/16 16:56; Admin Dose 83.333 MLS/HR; Start 10/27/16 at 16:00 Potassium Chloride/Dextrose/ Sod Cl (D5-1/4ns + KCl 20 Meq) 1,000 ml @ 75 mls/ hr [id number] IV Last administered on 10/28/16 09:45; Admin Dose 75 MLS/HR; Start 10/28/16 at 09:00 Miscellaneous Information (*Rx Drug Level Order Reminder*) VANCOMYCIN TROUGH 10/29 AT 1500 ONCE ONCE XX ; Start 10/29/16 at 15:00; Stop 10/29/16 at 15:01 Potassium Chloride (Potassium Chloride Pwd/Soln) 30 meq ONCE GTB Last administered on 10/28/16 11:59; Admin Dose 30 MEQ; Start 10/28/16 at 12:00; Stop 10/28/16 at 13:00 ANTON PORTILLO NP Oct 28, 2016 12:06
--- NOTE | 2016-10-28 13:46 | PN ---
DATE: 10/28/2016 CARDIOLOGY FOLLOWUP SUBJECTIVE: Discussed with the staff. The patient is ____. Lethargy has improved and off all pres sors. MEDICATIONS: Reviewed. PHYSICAL EXAMINATION: VITAL SIGNS: Temperature 98.4, heart rate of 91, blood pressure 111/61, respirations 18, saturating 100%. HEENT: Normocephalic, atraumatic. NECK: Tracheostomy. CARDIOVASCULAR: Regular rate and rhythm. PULMONARY: Mild rhonchi, diffuse. GASTROINTESTINAL: Soft. EXTREMITIES: With positive edema. NEUROLOGIC: Opens his eyes, responds appropriately. LABORATORY: WBC of 13.3, hemoglobin 8.4, platelet 134. Sodium 151, potassium 3.3, BUN of 78, creat inine 0.87, glucose ____ ASSESSMENT AND PLAN: 1. Hypoxemic respiratory failure, status post tracheostomy. 2. Paroxysmal atrial fibrillation, currently in sinus. 3. Septic shock and sepsis, currently is improving. Mildly abnormal troponin secondary to above. 4. Tachycardia secondary to above. 5. Renal insufficiency. 6. Electrolyte abnormalities with hypernatremia and hypokalemia. RECOMMENDATIONS: Electrolytes will be corrected as needed. We will continue with the supportive ca re, antibiotic as per internal medicine as well as ID recommendations. We will continue the ventila tor support and ICU care. Dictated By: BOY RANDOLPH MD AV/GENOVEVA Conf#: [id number] DID#: [id number] CC: DILIP ARELLANO MD;*EndCC*
--- NOTE | 2016-10-28 14:33 | CONS ---
Date/Time of Note Date/Time of Note DATE: 10/28/16 TIME: 14:30 Consult Date/Type/Reason Admit Date/Time Oct 25, 2016 at 10:54 Initial Consult Date 10/25/16 Type of Consultation: Pulm/CCM Ordering Provider: DILIP ARELLANO MD Subjective No events on MV. Objective Vital Signs Date Time Temp Pulse Resp B/P Pulse Ox O2 Delivery O2 Flow Rate FiO2 10/28/16 13:00 93 17 106/61 99 10/28/16 12:00 98.8 Mechanical Ventilator 10/28/16 12:00 30 Intake and Output 10/27/16 10/27/16 10/28/16 15:00 23:00 07:00 Intake Total 420 ml 464.67 ml 625 ml Output Total 915 ml 570 ml 850 ml Balance -495 ml -105.33 ml -225 ml Exam HEENT: Pupils equal, round, and reactive to light. Tracheostomy site clean and intact. CARDIAC: S1, S2, 2/6 systolic ejection murmur CHEST: Diminished air entry bilaterally. ABDOMEN: Mildly distended. Bowel sounds present no guarding or rebound EXTREMITIES: No cyanosis, clubbing edema +2 Results/Medications Result Diagram: 10/28/16 0530 10/28/16 0530 Results 24 hrs Laboratory Tests Test 10/27/16 17:00 10/27/16 20:10 10/28/16 01:18 10/28/16 04:48 Bedside Glucose 92 86 115 100 Test 10/28/16 05:30 10/28/16 09:36 White Blood Count 13.3 H Red Blood Count 3.24 L Hemoglobin 8.4 L Hematocrit 27.5 L Mean Corpuscular Volume 84.9 Mean Corpuscular Hemoglobin 25.9 L Mean Corpuscular Hemoglobin Concent 30.5 L Red Cell Distribution Width 16.4 H Platelet Count 134 L Mean Platelet Volume 13.5 H Neutrophils % 84.6 H Lymphocytes % 9.1 L Monocytes % 4.0 Eosinophils % 0.8 Basophils % 0.2 Nucleated Red Blood Cells % 0.0 Neutrophils # 11.3 H Lymphocytes # 1.2 Monocytes # 0.5 Eosinophils # 0.1 Basophils # 0.0 Nucleated Red Blood Cells # 0.0 Sodium Level 151 H Potassium Level 3.3 L Chloride Level 127 H Carbon Dioxide Level 19 L Anion Gap 8 Blood Urea Nitrogen 78 #H Creatinine 0.87 Glucose Level 102 Calcium Level 7.4 L Magnesium Level 2.8 H Bedside Glucose 110 Medications Current Medications Dextrose (D50w Syringe) 50 ml ONCE PRN IV POC BLOOD GLUCOSE <250 MG/DL; Start 10/25/16 at 11:00 Ondansetron HCl (Zofran Inj) 4 mg Q6H PRN IV NAUSEA AND/OR VOMITING Last administered on 10/27/16 13:51; Admin Dose 4 MG; Start 10/25/16 at 11:00 Nitroglycerin (Nitroglycerin (Sl Tab) 0.4 Mg) 1 tab Q5M PRN SL CHEST PAIN; Start 10/25/16 at 11:00 Acetaminophen (Tylenol Tab) 650 mg Q6H PRN PO PAIN LEVEL 1-3 OR FEVER; Start at 11:00 Acetaminophen (Tylenol Supp) 650 mg Q4H PRN [place] PAIN LEVEL 1-3 OR FEVER; Start 10/25/16 at 11:00 Docusate Sodium (Colace) 100 mg Q12H PRN PO CONSTIPATION; Start 10/25/16 at 11: 00 Bisacodyl (Dulcolax Supp) 10 mg DAILY PRN [place] CONSTIPATION; Start 10/25/16 at 11: 00 Amiodarone HCl (Cordarone) 400 mg BID GTB Last administered on 10/28/16 09:17; Admin Dose 400 MG; Start 10/25/16 at 21:00 Ascorbic Acid (Vitamin C) 500 mg DAILY GTB Last administered on 10/28/16 09:19 ; Admin Dose 500 MG; Start 10/26/16 at 09:00 Chlorhexidine Gluconate (Peridex) 15 ml Q12 MM Last administered on 10/28/16 09 :20; Admin Dose 15 ML; Start 10/25/16 at 21:00 Collagenase (Santyl) 1 applic DAILY TOP Last administered on 10/28/16 09:31; Admin Dose 1 APPLIC; Start 10/26/16 at 09:00 Ferrous Sulfate (Feosol Liquid Cup) 330 mg DAILY GTB Last administered on 09:27; Admin Dose 330 MG; Start 10/26/16 at 09:00 Multivitamins Therapeutic (Theragran) 1 tab DAILY GTB Last administered on 09:18; Admin Dose 1 TAB; Start 10/26/16 at 09:00 Lactobacillus Acidoph/Bulgaricus (Floranex) 1 tab BID PO Last administered on 09:20; Admin Dose 1 TAB; Start 10/25/16 at 21:00 Fenofibrate 145 mg 145 mg DAILY PO Last administered on 10/28/16 09:20; Admin Dose 145 MG; Start 10/26/16 at 09:00 Dobutamine HCl/ Dextrose 250 ml @ 12 mls/hr TITRATE IV Last administered on 12:19; Admin Dose 9.4 MLS/HR; Start 10/25/16 at 11:30 IV Flush (NS 10 ml) 10 ml PRN PRN IV IV PROTOCOL; Start 10/25/16 at 11:30 Atorvastatin Calcium (Lipitor) 20 mg HS PO Last administered on 10/27/16 20:14 ; Admin Dose 20 MG; Start 10/25/16 at 21:00 Pantoprazole (Protonix Iv) 40 mg BID IV Last administered on 10/28/16 09:20; Admin Dose 40 MG; Start 10/25/16 at 21:00 Insulin Aspart NOVOLOG *MILD* ALGORI... Q4 SC Last administered on 10/26/16 20: 31; Admin Dose 2 UNIT; Start 10/26/16 at 13:00 Norepinephrine/ Dextrose (Levophed/D5W) 250 ml @ 0.46 mls/hr TITRATE IV Last administered on 10/26/16 13:48; Admin Dose 1.87 MLS/HR; Start 10/26/16 at 09:30 Miscellaneous Information 1 ea NOTE XX ; Start 10/26/16 at 09:30 Glucose (Glutose) 15 gm Q15M PRN PO DECREASED GLUCOSE; Start 10/26/16 at 09:30 Glucose (Glutose) 22.5 gm Q15M PRN PO DECREASED GLUCOSE; Start 10/26/16 at 09:30 Dextrose (D50w Syringe) 25 ml Q15M PRN IV DECREASED GLUCOSE; Start 10/26/16 at 09:30 Dextrose (D50w Syringe) 50 ml Q15M PRN IV DECREASED GLUCOSE; Start 10/26/16 at 09:30 Glucagon (Glucagen) 1 mg Q15M PRN IM DECREASED GLUCOSE; Start 10/26/16 at 09:30 Glucose (Glutose) 15 gm Q15M PRN BUCCAL DECREASED GLUCOSE; Start 10/26/16 at 09: 30 Insulin Glargine (Lantus) 12 unit DAILY@20 SC Last administered on 10/26/16 20: 38; Admin Dose 12 UNIT; Start 10/26/16 at 20:00 Citric Acid/ Sodium Citrate 30 ml 30 ml BID PO Last administered on 10/28/16 09 :20; Admin Dose 30 ML; Start 10/26/16 at 10:30 Meropenem (Merrem 500 Mg/ 100 ml (Pmx)) 100 ml @ 200 mls/hr Q8 IVPB Last administered on 10/28/16 05:02; Admin Dose 200 MLS/HR; Start 10/26/16 at 14:00 Sodium Hypochlorite 1 applic 1 applic DAILY IRR Last administered on 10/28/16 09:19; Admin Dose 1 APPLIC; Start 10/27/16 at 09:00 Vancomycin HCl 1.5 gm/Sodium Chloride 250 ml @ 83.333 mls/ hr Q24H IVPB Last administered on 10/27/16 16:56; Admin Dose 83.333 MLS/HR; Start 10/27/16 at 16:00 Potassium Chloride/Dextrose/ Sod Cl (D5-1/4ns + KCl 20 Meq) 1,000 ml @ 75 mls/ hr [id number] IV Last administered on 10/28/16 09:45; Admin Dose 75 MLS/HR; Start 10/28/16 at 09:00 Miscellaneous Information (*Rx Drug Level Order Reminder*) VANCOMYCIN TROUGH 10/29 AT 1500 ONCE ONCE XX ; Start 10/29/16 at 15:00; Stop 10/29/16 at 15:01 Assessment/Plan Additional Assessment/Plan IMPRESSION: 1. Septic shock secondary to urinary tract infection 2. Severe anemia possibly secondary to chronic disease with component of GI bleeding 3. Metabolic acidosis 4. Chronic renal insufficiency 5. Vent dependent respiratory failure 6. Chronic encephalopathy 7. Dysphagia with G-tube RECS: 1. De-escalate abx 2. Vent support 3. Follow cultures 4. Continue to hold antihypertensives 5. Increase free H2O 35 min cc time MARI PACHECO MD Oct 28, 2016 14:33
--- NOTE | 2016-10-28 19:31 | CONS ---
Date/Time of Note Date/Time of Note DATE: 10/28/16 TIME: 19:27 Assessment/Plan Assessment/Plan Additional Assessment/Plan Will increase free water via GTube Note Stools ob +ve for bld, suggesting high BUN could be due to blood loss Pt being followed by GI Consultation Date/Type/Reason Admit Date/Time Oct 25, 2016 at 10:54 Initial Consult Date 10/25/16 Type of Consultation: renal Referring Provider: DILIP ARELLANO MD 24 HR Interval Summary Subjective hx not possible: pt non-verbal Exam/Review of Systems Vital Signs Vitals Vital Signs Date Time Temp Pulse Resp B/P Pulse Ox O2 Delivery O2 Flow Rate FiO2 10/28/16 18:42 98.2 89 18 105/55 99 10/28/16 17:50 30 10/28/16 12:00 Mechanical Ventilator Intake and Output 10/27/16 10/27/16 10/28/16 15:00 23:00 07:00 Intake Total 420 ml 464.67 ml 625 ml Output Total 915 ml 570 ml 850 ml Balance -495 ml -105.33 ml -225 ml Exam Constitutional: non-verbal, obese Head: normocephalic Eyes: EOMI, PERRL ENMT: intubated Neck: supple Respiratory: clear to auscultation, diminished breath sounds Cardiovascular: regular rate and rhythm Gastrointestinal: soft Additional Comments Note higher SNa Results Pt with Ch resp f, vent dependent Result Diagram: 10/28/16 0530 10/28/16 0530 Results 24 hrs Laboratory Tests Test 10/27/16 20:10 10/28/16 01:18 10/28/16 04:48 10/28/16 05:30 Bedside Glucose 86 115 100 White Blood Count 13.3 H Red Blood Count 3.24 L Hemoglobin 8.4 L Hematocrit 27.5 L Mean Corpuscular Volume 84.9 Mean Corpuscular Hemoglobin 25.9 L Mean Corpuscular Hemoglobin Concent 30.5 L Red Cell Distribution Width 16.4 H Platelet Count 134 L Mean Platelet Volume 13.5 H Neutrophils % 84.6 H Lymphocytes % 9.1 L Monocytes % 4.0 Eosinophils % 0.8 Basophils % 0.2 Nucleated Red Blood Cells % 0.0 Neutrophils # 11.3 H Lymphocytes # 1.2 Monocytes # 0.5 Eosinophils # 0.1 Basophils # 0.0 Nucleated Red Blood Cells # 0.0 Sodium Level 151 H Potassium Level 3.3 L Chloride Level 127 H Carbon Dioxide Level 19 L Anion Gap 8 Blood Urea Nitrogen 78 #H Creatinine 0.87 Glucose Level 102 Calcium Level 7.4 L Magnesium Level 2.8 H Test 10/28/16 09:36 10/28/16 18:44 Bedside Glucose 110 117 Medications Medications Current Medications Dextrose (D50w Syringe) 50 ml ONCE PRN IV POC BLOOD GLUCOSE <250 MG/DL; Start 10/25/16 at 11:00 Ondansetron HCl (Zofran Inj) 4 mg Q6H PRN IV NAUSEA AND/OR VOMITING Last administered on 10/27/16 13:51; Admin Dose 4 MG; Start 10/25/16 at 11:00 Nitroglycerin (Nitroglycerin (Sl Tab) 0.4 Mg) 1 tab Q5M PRN SL CHEST PAIN; Start 10/25/16 at 11:00 Acetaminophen (Tylenol Tab) 650 mg Q6H PRN PO PAIN LEVEL 1-3 OR FEVER; Start at 11:00 Acetaminophen (Tylenol Supp) 650 mg Q4H PRN [place] PAIN LEVEL 1-3 OR FEVER; Start 10/25/16 at 11:00 Docusate Sodium (Colace) 100 mg Q12H PRN PO CONSTIPATION; Start 10/25/16 at 11: 00 Bisacodyl (Dulcolax Supp) 10 mg DAILY PRN [place] CONSTIPATION; Start 10/25/16 at 11: 00 Amiodarone HCl (Cordarone) 400 mg BID GTB Last administered on 10/28/16 09:17; Admin Dose 400 MG; Start 10/25/16 at 21:00 Ascorbic Acid (Vitamin C) 500 mg DAILY GTB Last administered on 10/28/16 09:19 ; Admin Dose 500 MG; Start 10/26/16 at 09:00 Chlorhexidine Gluconate (Peridex) 15 ml Q12 MM Last administered on 10/28/16 09 :20; Admin Dose 15 ML; Start 10/25/16 at 21:00 Collagenase (Santyl) 1 applic DAILY TOP Last administered on 10/28/16 09:31; Admin Dose 1 APPLIC; Start 10/26/16 at 09:00 Ferrous Sulfate (Feosol Liquid Cup) 330 mg DAILY GTB Last administered on 09:27; Admin Dose 330 MG; Start 10/26/16 at 09:00 Multivitamins Therapeutic (Theragran) 1 tab DAILY GTB Last administered on 09:18; Admin Dose 1 TAB; Start 10/26/16 at 09:00 Lactobacillus Acidoph/Bulgaricus (Floranex) 1 tab BID PO Last administered on 09:20; Admin Dose 1 TAB; Start 10/25/16 at 21:00 Fenofibrate (Tricor) 145 mg DAILY PO Last administered on 10/28/16 09:20; Admin Dose 145 MG; Start 10/26/16 at 09:00 IV Flush (NS 10 ml) 10 ml PRN PRN IV IV PROTOCOL; Start 10/25/16 at 11:30 Atorvastatin Calcium (Lipitor) 20 mg HS PO Last administered on 10/27/16 20:14 ; Admin Dose 20 MG; Start 10/25/16 at 21:00 Pantoprazole (Protonix Iv) 40 mg BID IV Last administered on 10/28/16 09:20; Admin Dose 40 MG; Start 10/25/16 at 21:00 Insulin Aspart (Novolog Insulin Pen) NOVOLOG *MILD* ALGORI... Q4 SC Last administered on 10/26/16 20:31; Admin Dose 2 UNIT; Start 10/26/16 at 13:00 Miscellaneous Information 1 ea NOTE XX ; Start 10/26/16 at 09:30 Glucose (Glutose) 15 gm Q15M PRN PO DECREASED GLUCOSE; Start 10/26/16 at 09:30 Glucose (Glutose) 22.5 gm Q15M PRN PO DECREASED GLUCOSE; Start 10/26/16 at 09:30 Dextrose (D50w Syringe) 25 ml Q15M PRN IV DECREASED GLUCOSE; Start 10/26/16 at 09:30 Dextrose (D50w Syringe) 50 ml Q15M PRN IV DECREASED GLUCOSE; Start 10/26/16 at 09:30 Glucagon (Glucagen) 1 mg Q15M PRN IM DECREASED GLUCOSE; Start 10/26/16 at 09:30 Glucose (Glutose) 15 gm Q15M PRN BUCCAL DECREASED GLUCOSE; Start 10/26/16 at 09: 30 Insulin Glargine (Lantus) 12 unit DAILY@20 SC Last administered on 10/26/16 20: 38; Admin Dose 12 UNIT; Start 10/26/16 at 20:00 Citric Acid/ Sodium Citrate 30 ml 30 ml BID PO Last administered on 10/28/16 09 :20; Admin Dose 30 ML; Start 10/26/16 at 10:30 Meropenem (Merrem 500 Mg/ 100 ml (Pmx)) 100 ml @ 200 mls/hr Q8 IVPB Last administered on 10/28/16 05:02; Admin Dose 200 MLS/HR; Start 10/26/16 at 14:00 Sodium Hypochlorite 1 applic 1 applic DAILY IRR Last administered on 10/28/16 09:19; Admin Dose 1 APPLIC; Start 10/27/16 at 09:00 Vancomycin HCl 1.5 gm/Sodium Chloride 250 ml @ 83.333 mls/ hr Q24H IVPB Last administered on 10/27/16 16:56; Admin Dose 83.333 MLS/HR; Start 10/27/16 at 16:00 Potassium Chloride/Dextrose/ Sod Cl (D5-1/4ns + KCl 20 Meq) 1,000 ml @ 75 mls/ hr [id number] IV Last administered on 10/28/16 09:45; Admin Dose 75 MLS/HR; Start 10/28/16 at 09:00 Miscellaneous Information (*Rx Drug Level Order Reminder*) VANCOMYCIN TROUGH 10/29 AT 1500 ONCE ONCE XX ; Start 10/29/16 at 15:00; Stop 10/29/16 at 15:01 RANDALL FRANKLIN MD Oct 28, 2016 19:31
[2016-10-28] MEDS: VANCOMYCIN 1.5 GM in SOD CHLORIDE 0.9% 250 ML IVPB SCH (20:51)
[2016-10-28] MEDS: ATORVASTATIN 20 MG TAB PO SCH (20:54)
[2016-10-28] MEDS: INSULIN GLARGINE [LANtus] 3 ML PEN SC SCH (21:07)
[2016-10-29] VITALS (23 sets, daily range): BP systolic 109–124; BP diastolic 59–69; PULSE 92–107; RESP 15–23
[2016-10-29] MEDS: MEROPENEM 500 MG/100 ML (PMX) 100 ML IVPB SCH ×4 (00:51→22:34)
[2016-10-29] MEDS: INSULIN ASPART [NOVOLOG] 3 ML PEN SC SCH ×4 (01:05→17:51)
[2016-10-29 05:28] LABS: AADO2 Arterial 77.5 mmHg (7.0-24.0); Allen Test ACCEPTAB; Arterial Base Excess -2.9 mmol/L (-3.0-3); Arterial COHb 0.3 % (0.0-3.0); Arterial Fraction of Oxyhgb 97.1 % (93.0-99.0); Arterial HCO3 18.7 mmol/L (22.0-26.0); Arterial MetHb 0.4 % (0.0-1.5); MODE VENT - AC
[2016-10-29] MEDS: D5-0.2 NACL + KCL 20 MEQ 1,000 ML IV SCH (06:09)
[2016-10-29 08:54] LABS: ADD SCAN DIFF NO
[2016-10-29 09:02] LABS: BASOPHILS % 0.1 % (0.0-2.0); EOSINOPHILS # 0.2 10^3/ul (0.0-0.5); EOSINOPHILS % 1.7 % (0.0-7.0); HEMATOCRIT 27.2 % (42.0-52.0); HEMOGLOBIN 8.2 g/dl (14.0-18.0); LYMPHOCYTES # 1.7 10^3/ul (0.8-2.9); LYMPHOCYTES % 13.1 % (15.0-51.0); MEAN CORPUSCULAR HEMOGLOBIN 25.9 pg (29.0-33.0); MEAN CORPUSCULAR HGB CONC 30.1 g/dl (32.0-37.0); MEAN CORPUSCULAR VOLUME 85.8 fl (82.0-101.0); MEAN PLATELET VOLUME 12.3 fl (7.4-10.4); MONOCYTE # 0.5 10^3/ul (0.3-0.9); NEUTROPHIL # 10.3 10^3/ul (1.6-7.5); NEUTROPHILS % 80.2 % (39.0-77.0); PLATELET COUNT 142 10^3/UL (140-415); RED BLOOD COUNT 3.17 10^6/ul (4.70-6.10); RED CELL DISTRIBUTION WIDTH 16.6 % (11.5-14.5); WHITE BLOOD COUNT 12.9 10^3/ul (4.8-10.8)
[2016-10-29 09:18] LABS: POTASSIUM 3.7 mmol/L (3.5-5.1)
[2016-10-29 09:20] LABS: CREATININE 0.71 mg/dl (0.61-1.24)
[2016-10-29 09:21] LABS: CALCIUM 7.8 mg/dl (8.4-10.2)
--- NOTE | 2016-10-29 10:19 | CONS ---
Date/Time of Note Date/Time of Note DATE: 10/29/16 TIME: 10:18 Assessment/Plan Assessment/Plan Additional Assessment/Plan Acute anemia Evaluate GI bleed versus chronic iron deficiency vs other etiology EGD:Gastrostomy tube in the body of the stomach. Monitor H&H every 8 hours, transfuse 2 units for hemoglobin less than 7.5 Monitor labs Continue PPI therapy Colonoscopy on Sunday with Dr. Overton. Pt and family advised of R/B/A to procedure and provide informed consent to proceed Ventilator dependent respiratory failure Pulmonology following Status post tracheostomy Decubitus ulcer sacral Continue supportive care Management per Primary Diabetes mellitus Continue home medication Management per Primary History of Hypertension Continue home medication Management per Primary Dyslipidemia Continue home medication Management per Primary Further recommendations depend on clinical course Patient seen in collaboration with Dr. Overton Consultation Date/Type/Reason Admit Date/Time Oct 25, 2016 at 10:54 Initial Consult Date 10/25/16 Type of Consultation: renal Referring Provider: DILIP ARELLANO MD 24 HR Interval Summary Free Text/Dictation Hemoglobin stable Prepare for colonoscopy on Sunday with Dr. Overton Exam/Review of Systems Vital Signs Vitals Vital Signs Date Time Temp Pulse Resp B/P Pulse Ox O2 Delivery O2 Flow Rate FiO2 10/29/16 09:20 102 18 99 30 10/29/16 07:35 99.4 112/63 10/28/16 12:00 Mechanical Ventilator Intake and Output 10/28/16 10/28/16 10/29/16 15:00 23:00 07:00 Intake Total 75 ml 250 ml 1450 ml Output Total 600 ml 1300 ml Balance -525 ml 250 ml 150 ml Exam Constitutional: alert, oriented, well developed Psych: nl mood/affect Head: normocephalic Eyes: EOMI, nl conjunctiva, nl lids ENMT: nl external ears & nose, nl lips & teeth, nl nasal mucosa & septum Respiratory: Status post tracheostomy Cardiovascular: regular rate and rhythm Gastrointestinal: soft, non-tender Musculoskeletal: nl extremities to inspection Neurological: ICT BUSINESS ANALYST II-XII intact Results Result Diagram: 10/29/16 0555 10/29/16 0555 Results 24 hrs Laboratory Tests Test 10/28/16 18:44 10/28/16 20:53 10/29/16 00:54 10/29/16 05:00 Bedside Glucose 117 117 146 Blood Gas Specimen Source Blood arterial Arterial Blood Date Drawn 10/29/2016 5:12:21 AM Arterial Blood pH (Temp corrected) 7.521 H Arterial Blood pCO2 (Temp correct) 23.4 L Arterial Blood pO2 (Temp corrected) 108.9 H Arterial Blood HCO3 18.7 L Arterial Blood Base Excess -2.9 Arterial Blood Oxygen Saturation 97.8 Vinayak Test ACCEPTAB Arterial Blood Gas Puncture Site Right Radial Arterial Blood Carboxyhemoglobin 0.3 Arterial Blood Methemoglobin 0.4 Blood Gas A-a O2 Differential 77.5 H Oxyhemoglobin Percent 97.1 Total Hemoglobin 10.0 L Blood Gas Temperature 37.0 Blood Gas Respiration Rate 12.0 Blood Gas Actual Respiration Rate 18 Blood Gas Modality VENT - AC FiO2 30.0 Blood Gas Tidal Volume 550.0 Blood Gas Low PEEP Setting 5.0 Blood Gas Inspiratory Pressure 20.0 Blood Gas Notified Whom AA Blood Gas Notified Time 10/29/2016 5:26:59 AM Test 10/29/16 05:55 10/29/16 06:07 10/29/16 09:06 White Blood Count 12.9 H Red Blood Count 3.17 L Hemoglobin 8.2 L Hematocrit 27.2 L Mean Corpuscular Volume 85.8 Mean Corpuscular Hemoglobin 25.9 L Mean Corpuscular Hemoglobin Concent 30.1 L Red Cell Distribution Width 16.6 H Platelet Count 142 Mean Platelet Volume 12.3 H Neutrophils % 80.2 H Lymphocytes % 13.1 L Monocytes % 4.0 Eosinophils % 1.7 Basophils % 0.1 Nucleated Red Blood Cells % 0.0 Neutrophils # 10.3 H Lymphocytes # 1.7 Monocytes # 0.5 Eosinophils # 0.2 Basophils # 0.0 Nucleated Red Blood Cells # 0.0 Sodium Level 153 H Potassium Level 3.7 Chloride Level 124 H Carbon Dioxide Level 18 L Anion Gap 15 # Blood Urea Nitrogen 57 H Creatinine 0.71 Glucose Level 118 Lactic Acid Level 0.9 Calcium Level 7.8 L Bedside Glucose 130 134 Medications Medications Current Medications Dextrose (D50w Syringe) 50 ml ONCE PRN IV POC BLOOD GLUCOSE <250 MG/DL; Start 10/25/16 at 11:00 Ondansetron HCl (Zofran Inj) 4 mg Q6H PRN IV NAUSEA AND/OR VOMITING Last administered on 10/27/16t 13:51; Admin Dose 4 MG; Start 10/25/16 at 11:00 Nitroglycerin (Nitroglycerin (Sl Tab) 0.4 Mg) 1 tab Q5M PRN SL CHEST PAIN; Start 10/25/16 at 11:00 Acetaminophen (Tylenol Tab) 650 mg Q6H PRN PO PAIN LEVEL 1-3 OR FEVER; Start at 11:00 Acetaminophen (Tylenol Supp) 650 mg Q4H PRN [place] PAIN LEVEL 1-3 OR FEVER; Start 10/25/16 at 11:00 Docusate Sodium (Colace) 100 mg Q12H PRN PO CONSTIPATION; Start 10/25/16 at 11: 00 Bisacodyl (Dulcolax Supp) 10 mg DAILY PRN [place] CONSTIPATION; Start 10/25/16 at 11: 00 Amiodarone HCl (Cordarone) 400 mg BID GTB Last administered on 10/28/16 20:54; Admin Dose 400 MG; Start 10/25/16 at 21:00 Ascorbic Acid (Vitamin C) 500 mg DAILY GTB Last administered on 10/28/16 09:19 ; Admin Dose 500 MG; Start 10/26/16 at 09:00 Chlorhexidine Gluconate (Peridex) 15 ml Q12 MM Last administered on 10/28/16 20 :54; Admin Dose 15 ML; Start 10/25/16 at 21:00 Collagenase (Santyl) 1 applic DAILY TOP Last administered on 10/28/16 09:31; Admin Dose 1 APPLIC; Start 10/26/16 at 09:00 Ferrous Sulfate (Feosol Liquid Cup) 330 mg DAILY GTB Last administered on 09:27; Admin Dose 330 MG; Start 10/26/16 at 09:00 Multivitamins Therapeutic (Theragran) 1 tab DAILY GTB Last administered on 09:18; Admin Dose 1 TAB; Start 10/26/16 at 09:00 Lactobacillus Acidoph/Bulgaricus (Floranex) 1 tab BID PO Last administered on 20:54; Admin Dose 1 TAB; Start 10/25/16 at 21:00 Fenofibrate (Tricor) 145 mg DAILY PO Last administered on 10/28/16 09:20; Admin Dose 145 MG; Start 10/26/16 at 09:00 IV Flush (NS 10 ml) 10 ml PRN PRN IV IV PROTOCOL; Start 10/25/16 at 11:30 Atorvastatin Calcium (Lipitor) 20 mg HS PO Last administered on 10/28/16 20:54 ; Admin Dose 20 MG; Start 10/25/16 at 21:00 Pantoprazole (Protonix Iv) 40 mg BID IV Last administered on 10/28/16 20:55; Admin Dose 40 MG; Start 10/25/16 at 21:00 Miscellaneous Information 1 ea NOTE XX ; Start 10/26/16 at 09:30 Glucose (Glutose) 15 gm Q15M PRN PO DECREASED GLUCOSE; Start 10/26/16 at 09:30 Glucose (Glutose) 22.5 gm Q15M PRN PO DECREASED GLUCOSE; Start 10/26/16 at 09:30 Dextrose (D50w Syringe) 25 ml Q15M PRN IV DECREASED GLUCOSE; Start 10/26/16 at 09:30 Dextrose (D50w Syringe) 50 ml Q15M PRN IV DECREASED GLUCOSE; Start 10/26/16 at 09:30 Glucagon (Glucagen) 1 mg Q15M PRN IM DECREASED GLUCOSE; Start 10/26/16 at 09:30 Glucose (Glutose) 15 gm Q15M PRN BUCCAL DECREASED GLUCOSE; Start 10/26/16 at 09: 30 Insulin Glargine (Lantus) 12 unit DAILY@20 SC Last administered on 10/28/16 21: 07; Admin Dose 12 UNIT; Start 10/26/16 at 20:00 Citric Acid/ Sodium Citrate 30 ml 30 ml BID PO Last administered on 10/28/16 20 :54; Admin Dose 30 ML; Start 10/26/16 at 10:30 Meropenem (Merrem 500 Mg/ 100 ml (Pmx)) 100 ml @ 200 mls/hr Q8 IVPB Last administered on 10/29/16 06:08; Admin Dose 200 MLS/HR; Start 10/26/16 at 14:00 Sodium Hypochlorite 1 applic 1 applic DAILY IRR Last administered on 10/28/16 09:19; Admin Dose 1 APPLIC; Start 10/27/16 at 09:00 Vancomycin HCl 1.5 gm/Sodium Chloride 250 ml @ 83.333 mls/ hr Q24H IVPB Last administered on 10/28/16 20:51; Admin Dose 83.333 MLS/HR; Start 10/27/16 at 16:00 Potassium Chloride/Dextrose/ Sod Cl (D5-1/4ns + KCl 20 Meq) 1,000 ml @ 75 mls/ hr [id number] IV Last administered on 10/29/16t 06:09; Admin Dose 75 MLS/HR; Start 10/28/16 at 09:00 Miscellaneous Information (*Rx Drug Level Order Reminder*) VANCOMYCIN TROUGH 10/29 AT 1900 ONCE ONCE XX ; Start 10/29/16 at 19:00; Stop 10/29/16 at 19:01 Insulin Aspart (Novolog Insulin Pen) NOVOLOG *MILD* ALGORI... Q6 SC ; Start 10/29 at 12:00 Miscellaneous Information (* Miscellaneous Pharmacy Order) HYPOGLYCEMIA PROTOCOL w... ONCE ONCE XX ; Start 10/29/16 at 09:30; Stop 10/29/16 at 09:31; Status UNV Miscellaneous Information (* Miscellaneous Pharmacy Order) Discontinue Glyburide , Glipizide,... ONCE ONCE XX ; Start 10/29/16 at 09:30; Stop 10/29/16 at 09:31; Status UNV Miscellaneous Information (* Miscellaneous Pharmacy Order) Discontinue all previ... ONCE ONCE XX ; Start 10/29/16 at 09:30; Stop 10/29/16 at 09:31; Status UNV SABINE STEWART Oct 29, 2016 10:19
[2016-10-29] MEDS: PANTOPRAZOLE 40 MG INJ IV SCH ×2 (10:51→20:28)
[2016-10-29] MEDS: CHLORHEXIDINE GLUCONATE 15 ML UD CUP MM SCH ×2 (10:51→20:28)
[2016-10-29] MEDS: FERROUS SULFATE 60 MG/ML 5ML CUP GTB SCH (10:51)
[2016-10-29] MEDS: CITRIC ACID/NA CITRATE 30 ML CUP PO SCH ×2 (10:51→20:28)
[2016-10-29] MEDS: LACTOBACILLUS CHEW TAB PO SCH ×2 (10:52→20:27)
[2016-10-29] MEDS: FENOFIBRATE 145 MG TAB PO SCH (10:53)
[2016-10-29] MEDS: ASCORBIC ACID 500 MG TAB GTB SCH (10:53)
[2016-10-29] MEDS: SODIUM HYPOCHLORITE 0.125% 473 ML BTL IRR SCH (10:53)
[2016-10-29] MEDS: MULTIVITAMINS THERAPEUTIC TAB GTB SCH (10:53)
[2016-10-29] MEDS: AMIODARONE 200 MG TAB GTB SCH ×2 (10:54→20:28)
[2016-10-29] MEDS: COLLAGENASE 30 GM TUBE TOP SCH (10:54)
[2016-10-29] MEDS: D5W + KCL 20 MEQ 1,000 ML IV SCH ×2 (11:30→20:48)
[2016-10-29] MEDS ORDERED: BISACODYL (EC) 5 MG TAB PO ONE ×2 (14:00→18:00)
[2016-10-29] MEDS ORDERED: MAGNESIUM CITRATE 300 ML BTL PO ONE (15:00)
--- NOTE | 2016-10-29 15:08 | PN ---
Date/Time of Note Date/Time of Note DATE: 10/29/16 TIME: 15:05 Assessment/Plan VTE Prophylaxis VTE Prophylaxis Intervention: SCD's Lines/Catheters IV [facility] Type ([facility]): PICC Line Central line still needed: Yes Urinary Cath still in place: Yes Reason Cath still needed: other (indicate) Assessment/Plan Chief Complaint/Hosp Course ASSESSMENT AND PLAN: 1. Sepsis, likely secondary to urinary tract infection Was placed on pressors on 10/28/1999 10:43 PM , off pressors Continue Zosyn and Aztreonam. Infectious disease doctor has been consulted. 2. Ventilator-dependent respiratory failure. Continue vent management by economics consultant. 3. Non-ST myocardial infarction with elevated troponin, likely demand ischemia secondary to anemia. Follow-up cardiology recommendations 4. Anemia, secondary to GI bleed positive guaiac. seafood clerk consulted , continue IV PPI. Status post 2 units of packed red blood cell. Follow hemoglobin hematocrit. No evidence of bleeding on upper endoscopy. Plan for colonoscopy on 10/30/2016 5. Severe dehydration, improving, status post 2 units of packed red blood cells and IV fluid. Follow renal panel. 6. Acute renal insufficiency. Secondary to #5 as above, nephrology has been consulted. 7. Diabetic mellitus . Place the patient on Lantus, continue insulin sliding scale. 8. History of essential hypertension. At this time, the patient is hypotensive secondary to septic shock. Hold all blood pressure medication. 9. Dyslipidemia, on statin. 10. GI bleed, gastroenterology been consulted continue IV PPI 11. Sacral decubitus, continue wound care, general surgery has been consulted and will follow his recommendations CONDITION: Guarded We will continue to monitor patient closely. Further recommendations, management, and treatment as per clinical course. Continue to monitor and telemetry floor Plan for colonoscopy tomorrow on 10/30/2016 Problems: Subjective 24 Hr Interval Summary Free Text/Dictation No acute changes Tolerating PEG tube feeding Exam/Review of Systems Vital Signs Vitals Vital Signs Date Time Temp Pulse Resp B/P Pulse Ox O2 Delivery O2 Flow Rate FiO2 10/29/16 13:30 104 21 98 30 10/29/16 10:59 98.2 124/69 10/28/16 12:00 Mechanical Ventilator Intake and Output 10/28/16 10/28/16 10/29/16 15:00 23:00 07:00 Intake Total 75 ml 250 ml 1450 ml Output Total 600 ml 1300 ml Balance -525 ml 250 ml 150 ml Exam General: The patient is minimally lethargic, Not in acute distress. HEENT: Atraumatic, normocephalic. The pupils are equal and round . Neck: Supple , trach in place Chest: Normal expansion of the thorax during inspiration Lungs: Clear to auscultation bilaterally Heart: Normal S1-S2, Regular rhythm and rate. Abdomen: Soft , nontender, nondistended , bowel sounds are present. PEG tube in place Extremities: Normal to inspection, no edema no cyanosis Neurologic: The patient is awake, easily arousable Results Result Diagram: 10/29/16 0555 10/29/16 0555 Results 24 hrs Laboratory Tests Test 10/28/16 18:44 10/28/16 20:53 10/29/16 00:54 10/29/16 05:00 Bedside Glucose 117 117 146 Blood Gas Specimen Source Blood arterial Arterial Blood Date Drawn 10/29/2016 5:12:21 AM Arterial Blood pH (Temp corrected) 7.521 H Arterial Blood pCO2 (Temp correct) 23.4 L Arterial Blood pO2 (Temp corrected) 108.9 H Arterial Blood HCO3 18.7 L Arterial Blood Base Excess -2.9 Arterial Blood Oxygen Saturation 97.8 Vinayak Test ACCEPTAB Arterial Blood Gas Puncture Site Right Radial Arterial Blood Carboxyhemoglobin 0.3 Arterial Blood Methemoglobin 0.4 Blood Gas A-a O2 Differential 77.5 H Oxyhemoglobin Percent 97.1 Total Hemoglobin 10.0 L Blood Gas Temperature 37.0 Blood Gas Respiration Rate 12.0 Blood Gas Actual Respiration Rate 18 Blood Gas Modality VENT - AC FiO2 30.0 Blood Gas Tidal Volume 550.0 Blood Gas Low PEEP Setting 5.0 Blood Gas Inspiratory Pressure 20.0 Blood Gas Notified Whom AA Blood Gas Notified Time 10/29/2016 5:26:59 AM Test 10/29/16 05:55 10/29/16 06:07 10/29/16 09:06 10/29/16 12:56 White Blood Count 12.9 H Red Blood Count 3.17 L Hemoglobin 8.2 L Hematocrit 27.2 L Mean Corpuscular Volume 85.8 Mean Corpuscular Hemoglobin 25.9 L Mean Corpuscular Hemoglobin Concent 30.1 L Red Cell Distribution Width 16.6 H Platelet Count 142 Mean Platelet Volume 12.3 H Neutrophils % 80.2 H Lymphocytes % 13.1 L Monocytes % 4.0 Eosinophils % 1.7 Basophils % 0.1 Nucleated Red Blood Cells % 0.0 Neutrophils # 10.3 H Lymphocytes # 1.7 Monocytes # 0.5 Eosinophils # 0.2 Basophils # 0.0 Nucleated Red Blood Cells # 0.0 Sodium Level 153 H Potassium Level 3.7 Chloride Level 124 H Carbon Dioxide Level 18 L Anion Gap 15 # Blood Urea Nitrogen 57 H Creatinine 0.71 Glucose Level 118 Lactic Acid Level 0.9 Calcium Level 7.8 L Bedside Glucose 130 134 170 Medications Medications Current Medications Dextrose (D50w Syringe) 50 ml ONCE PRN IV POC BLOOD GLUCOSE <250 MG/DL; Start 10/25/16 at 11:00 Ondansetron HCl (Zofran Inj) 4 mg Q6H PRN IV NAUSEA AND/OR VOMITING Last administered on 10/27/16 13:51; Admin Dose 4 MG; Start 10/25/16 at 11:00 Nitroglycerin (Nitroglycerin (Sl Tab) 0.4 Mg) 1 tab Q5M PRN SL CHEST PAIN; Start 10/25/16 at 11:00 Acetaminophen (Tylenol Tab) 650 mg Q6H PRN PO PAIN LEVEL 1-3 OR FEVER; Start at 11:00 Acetaminophen (Tylenol Supp) 650 mg Q4H PRN [place] PAIN LEVEL 1-3 OR FEVER; Start 10/25/16 at 11:00 Docusate Sodium (Colace) 100 mg Q12H PRN PO CONSTIPATION; Start 10/25/16 at 11: 00 Bisacodyl (Dulcolax Supp) 10 mg DAILY PRN [place] CONSTIPATION; Start 10/25/16 at 11: 00 Amiodarone HCl (Cordarone) 400 mg BID GTB Last administered on 10/29/16 10:54; Admin Dose 400 MG; Start 10/25/16 at 21:00 Ascorbic Acid (Vitamin C) 500 mg DAILY GTB Last administered on 10/29/16 10:53 ; Admin Dose 500 MG; Start 10/26/16 at 09:00 Chlorhexidine Gluconate (Peridex) 15 ml Q12 MM Last administered on 10/29/16 10 :51; Admin Dose 15 ML; Start 10/25/16 at 21:00 Collagenase (Santyl) 1 applic DAILY TOP Last administered on 10/29/16 10:54; Admin Dose 1 APPLIC; Start 10/26/16 at 09:00 Ferrous Sulfate (Feosol Liquid Cup) 330 mg DAILY GTB Last administered on 10:51; Admin Dose 330 MG; Start 10/26/16 at 09:00 Multivitamins Therapeutic (Theragran) 1 tab DAILY GTB Last administered on 10:53; Admin Dose 1 TAB; Start 10/26/16 at 09:00 Lactobacillus Acidoph/Bulgaricus (Floranex) 1 tab BID PO Last administered on 10:52; Admin Dose 1 TAB; Start 10/25/16 at 21:00 Fenofibrate (Tricor) 145 mg DAILY PO Last administered on 10/29/16 10:53; Admin Dose 145 MG; Start 10/26/16 at 09:00 IV Flush (NS 10 ml) 10 ml PRN PRN IV IV PROTOCOL; Start 10/25/16 at 11:30 Atorvastatin Calcium (Lipitor) 20 mg HS PO Last administered on 10/28/16 20:54 ; Admin Dose 20 MG; Start 10/25/16 at 21:00 Pantoprazole (Protonix Iv) 40 mg BID IV Last administered on 10/29/16 10:51; Admin Dose 40 MG; Start 10/25/16 at 21:00 Miscellaneous Information 1 ea NOTE XX ; Start 10/26/16 at 09:30 Glucose (Glutose) 15 gm Q15M PRN PO DECREASED GLUCOSE; Start 10/26/16 at 09:30 Glucose (Glutose) 22.5 gm Q15M PRN PO DECREASED GLUCOSE; Start 10/26/16 at 09:30 Dextrose (D50w Syringe) 25 ml Q15M PRN IV DECREASED GLUCOSE; Start 10/26/16 at 09:30 Dextrose (D50w Syringe) 50 ml Q15M PRN IV DECREASED GLUCOSE; Start 10/26/16 at 09:30 Glucagon (Glucagen) 1 mg Q15M PRN IM DECREASED GLUCOSE; Start 10/26/16 at 09:30 Glucose (Glutose) 15 gm Q15M PRN BUCCAL DECREASED GLUCOSE; Start 10/26/16 at 09: 30 Insulin Glargine (Lantus) 12 unit DAILY@20 SC Last administered on 10/28/16 21: 07; Admin Dose 12 UNIT; Start 10/26/16 at 20:00 Citric Acid/ Sodium Citrate 30 ml 30 ml BID PO Last administered on 10/29/16 10 :51; Admin Dose 30 ML; Start 10/26/16 at 10:30 Meropenem (Merrem 500 Mg/ 100 ml (Pmx)) 100 ml @ 200 mls/hr Q8 IVPB Last administered on 10/29/16 06:08; Admin Dose 200 MLS/HR; Start 10/26/16 at 14:00 Sodium Hypochlorite (Dakin'S (/ Strength)) 1 applic DAILY IRR Last administered on 10/29/16 10:53; Admin Dose 1 APPLIC; Start 10/27/16 at 09:00 Miscellaneous Information (*Rx Drug Level Order Reminder*) VANCOMYCIN TROUGH 10/29 AT 1900 ONCE ONCE XX ; Start 10/29/16 at 19:00; Stop 10/29/16 at 19:01 Insulin Aspart NOVOLOG *MILD* ALGORI... Q6 SC Last administered on 10/29/16 12: 57; Admin Dose 1 UNIT; Start 10/29/16 at 12:00 Vancomycin HCl/ Sodium Chloride (Vancocin/NS) 250 ml @ 83.333 mls/ hr Q24H IVPB ; Start 10/29/16 at 20:00 Polyethylene Glycol 119 gm 119 gm ONCE ONCE PO ; Start 10/29/16 at 16:00; Stop 10/29/16 at 16:01 Potassium Chloride/Dextrose (D5W + KCl 20 Meq) 1,000 ml @ 80 mls/hr [id number] IV ; Start 10/29/16 at 11:30 DILIP ARELLANO MD Oct 29, 2016 15:08
[2016-10-29] MEDS ORDERED: POLYETHYLENE GLYCOL 3350 119 GM POWDER PO ONE ×2 (16:00→18:00)
--- NOTE | 2016-10-29 16:36 | CONS ---
Date/Time of Note Date/Time of Note DATE: 10/29/16 TIME: 16:34 Consult Date/Type/Reason Admit Date/Time Oct 25, 2016 at 10:54 Initial Consult Date 10/25/16 Type of Consultation: Pulm Ordering Provider: DILIP ARELLANO MD Subjective No events overnight. Objective Vital Signs Date Time Temp Pulse Resp B/P Pulse Ox O2 Delivery O2 Flow Rate FiO2 10/29/16 16:22 104 10/29/16 15:05 18 98 30 10/29/16 10:59 98.2 124/69 10/28/16 12:00 Mechanical Ventilator Intake and Output 10/28/16 10/28/16 10/29/16 15:00 23:00 07:00 Intake Total 75 ml 250 ml 1450 ml Output Total 600 ml 1300 ml Balance -525 ml 250 ml 150 ml Exam HEENT: Pupils equal, round, and reactive to light. Tracheostomy site clean and intact. CARDIAC: S1, S2, 2/6 systolic ejection murmur CHEST: Diminished air entry bilaterally. ABDOMEN: Mildly distended. Bowel sounds present no guarding or rebound EXTREMITIES: No cyanosis, clubbing edema +2 Results/Medications Result Diagram: 10/29/16 0555 10/29/16 0555 Results 24 hrs Laboratory Tests Test 10/28/16 18:44 10/28/16 20:53 10/29/16 00:54 10/29/16 05:00 Bedside Glucose 117 117 146 Blood Gas Specimen Source Blood arterial Arterial Blood Date Drawn 10/29/2016 5:12:21 AM Arterial Blood pH (Temp corrected) 7.521 H Arterial Blood pCO2 (Temp correct) 23.4 L Arterial Blood pO2 (Temp corrected) 108.9 H Arterial Blood HCO3 18.7 L Arterial Blood Base Excess -2.9 Arterial Blood Oxygen Saturation 97.8 Vinayak Test ACCEPTAB Arterial Blood Gas Puncture Site Right Radial Arterial Blood Carboxyhemoglobin 0.3 Arterial Blood Methemoglobin 0.4 Blood Gas A-a O2 Differential 77.5 H Oxyhemoglobin Percent 97.1 Total Hemoglobin 10.0 L Blood Gas Temperature 37.0 Blood Gas Respiration Rate 12.0 Blood Gas Actual Respiration Rate 18 Blood Gas Modality VENT - AC FiO2 30.0 Blood Gas Tidal Volume 550.0 Blood Gas Low PEEP Setting 5.0 Blood Gas Inspiratory Pressure 20.0 Blood Gas Notified Whom AA Blood Gas Notified Time 10/29/2016 5:26:59 AM Test 10/29/16 05:55 10/29/16 06:07 10/29/16 09:06 10/29/16 12:56 White Blood Count 12.9 H Red Blood Count 3.17 L Hemoglobin 8.2 L Hematocrit 27.2 L Mean Corpuscular Volume 85.8 Mean Corpuscular Hemoglobin 25.9 L Mean Corpuscular Hemoglobin Concent 30.1 L Red Cell Distribution Width 16.6 H Platelet Count 142 Mean Platelet Volume 12.3 H Neutrophils % 80.2 H Lymphocytes % 13.1 L Monocytes % 4.0 Eosinophils % 1.7 Basophils % 0.1 Nucleated Red Blood Cells % 0.0 Neutrophils # 10.3 H Lymphocytes # 1.7 Monocytes # 0.5 Eosinophils # 0.2 Basophils # 0.0 Nucleated Red Blood Cells # 0.0 Sodium Level 153 H Potassium Level 3.7 Chloride Level 124 H Carbon Dioxide Level 18 L Anion Gap 15 # Blood Urea Nitrogen 57 H Creatinine 0.71 Glucose Level 118 Lactic Acid Level 0.9 Calcium Level 7.8 L Bedside Glucose 130 134 170 Medications Current Medications Dextrose (D50w Syringe) 50 ml ONCE PRN IV POC BLOOD GLUCOSE <250 MG/DL; Start 10/25/16 at 11:00 Ondansetron HCl (Zofran Inj) 4 mg Q6H PRN IV NAUSEA AND/OR VOMITING Last administered on 10/27/16t 13:51; Admin Dose 4 MG; Start 10/25/16 at 11:00 Nitroglycerin (Nitroglycerin (Sl Tab) 0.4 Mg) 1 tab Q5M PRN SL CHEST PAIN; Start 10/25/16 at 11:00 Acetaminophen (Tylenol Tab) 650 mg Q6H PRN PO PAIN LEVEL 1-3 OR FEVER; Start at 11:00 Acetaminophen (Tylenol Supp) 650 mg Q4H PRN [place] PAIN LEVEL 1-3 OR FEVER; Start 10/25/16 at 11:00 Docusate Sodium (Colace) 100 mg Q12H PRN PO CONSTIPATION; Start 10/25/16 at 11: 00 Bisacodyl (Dulcolax Supp) 10 mg DAILY PRN [place] CONSTIPATION; Start 10/25/16 at 11: 00 Amiodarone HCl (Cordarone) 400 mg BID GTB Last administered on 10/29/16 10:54; Admin Dose 400 MG; Start 10/25/16 at 21:00 Ascorbic Acid (Vitamin C) 500 mg DAILY GTB Last administered on 10/29/16 10:53 ; Admin Dose 500 MG; Start 10/26/16 at 09:00 Chlorhexidine Gluconate (Peridex) 15 ml Q12 MM Last administered on 10/29/16 10 :51; Admin Dose 15 ML; Start 10/25/16 at 21:00 Collagenase (Santyl) 1 applic DAILY TOP Last administered on 10/29/16 10:54; Admin Dose 1 APPLIC; Start 10/26/16 at 09:00 Ferrous Sulfate (Feosol Liquid Cup) 330 mg DAILY GTB Last administered on 10:51; Admin Dose 330 MG; Start 10/26/16 at 09:00 Multivitamins Therapeutic (Theragran) 1 tab DAILY GTB Last administered on 10:53; Admin Dose 1 TAB; Start 10/26/16 at 09:00 Lactobacillus Acidoph/Bulgaricus (Floranex) 1 tab BID PO Last administered on 10:52; Admin Dose 1 TAB; Start 10/25/16 at 21:00 Fenofibrate (Tricor) 145 mg DAILY PO Last administered on 10/29/16 10:53; Admin Dose 145 MG; Start 10/26/16 at 09:00 IV Flush (NS 10 ml) 10 ml PRN PRN IV IV PROTOCOL; Start 10/25/16 at 11:30 Atorvastatin Calcium (Lipitor) 20 mg HS PO Last administered on 10/28/16 20:54 ; Admin Dose 20 MG; Start 10/25/16 at 21:00 Pantoprazole (Protonix Iv) 40 mg BID IV Last administered on 10/29/16 10:51; Admin Dose 40 MG; Start 10/25/16 at 21:00 Miscellaneous Information 1 ea NOTE XX ; Start 10/26/16 at 09:30 Glucose (Glutose) 15 gm Q15M PRN PO DECREASED GLUCOSE; Start 10/26/16 at 09:30 Glucose (Glutose) 22.5 gm Q15M PRN PO DECREASED GLUCOSE; Start 10/26/16 at 09:30 Dextrose (D50w Syringe) 25 ml Q15M PRN IV DECREASED GLUCOSE; Start 10/26/16 at 09:30 Dextrose (D50w Syringe) 50 ml Q15M PRN IV DECREASED GLUCOSE; Start 10/26/16 at 09:30 Glucagon (Glucagen) 1 mg Q15M PRN IM DECREASED GLUCOSE; Start 10/26/16 at 09:30 Glucose (Glutose) 15 gm Q15M PRN BUCCAL DECREASED GLUCOSE; Start 10/26/16 at 09: 30 Insulin Glargine (Lantus) 12 unit DAILY@20 SC Last administered on 10/28/16 21: 07; Admin Dose 12 UNIT; Start 10/26/16 at 20:00 Citric Acid/ Sodium Citrate 30 ml 30 ml BID PO Last administered on 10/29/16 10 :51; Admin Dose 30 ML; Start 10/26/16 at 10:30 Meropenem (Merrem 500 Mg/ 100 ml (Pmx)) 100 ml @ 200 mls/hr Q8 IVPB Last administered on 10/29/16 15:12; Admin Dose 200 MLS/HR; Start 10/26/16 at 14:00 Sodium Hypochlorite (Dakin'S (1/4 Strength)) 1 applic DAILY IRR Last administered on 10/29/16 10:53; Admin Dose 1 APPLIC; Start 10/27/16 at 09:00 Miscellaneous Information (*Rx Drug Level Order Reminder*) VANCOMYCIN TROUGH 10/29 AT 1900 ONCE ONCE XX ; Start 10/29/16 at 19:00; Stop 10/29/16 at 19:01 Insulin Aspart NOVOLOG *MILD* ALGORI... Q6 SC Last administered on 10/29/16 12: 57; Admin Dose 1 UNIT; Start 10/29/16 at 12:00 Vancomycin HCl 1.5 gm/Sodium Chloride 250 ml @ 83.333 mls/ hr Q24H IVPB ; Start 10/29/16 at 20:00 Potassium Chloride/Dextrose (D5W + KCl 20 Meq) 1,000 ml @ 80 mls/hr [id number] IV ; Start 10/29/16 at 11:30 Assessment/Plan Additional Assessment/Plan IMPRESSION: 1. S/P septic shock secondary to urinary tract infection 2. Severe anemia possibly secondary to chronic disease with component of GI bleeding 3. Metabolic acidosis--improved 4. Chronic renal insufficiency 5. Vent dependent respiratory failure 6. Chronic encephalopathy 7. Dysphagia with G-tube RECS: 1. De-escalate abx 2. Vent support 3. Follow cultures 4. TF's 5. Increase free H2O MARI PACHECO MD Oct 29, 2016 16:35
--- NOTE | 2016-10-29 19:30 | CONS ---
Date/Time of Note Date/Time of Note DATE: 10/29/16 TIME: 19:29 Assessment/Plan Assessment/Plan Chief Complaint/Hosp Course ID PROGRESS NOTE CURRENT ABX=> Vanco IV + Merrem 24H INTERVAL SUMMARY * Overall improved -- transferred out of ICU to [facility] -- WBC down with low grade [id number] -- awake, nonverbal eyes tracking * 1. MICROBIOLOGY: Blood culture growing gram-negative rods and gram-positive cocci in clusters. Urine culture growing E. coli and Morganella morganii, both susceptible to cefotaxime and gentamicin. Wound culture growing gram-negative rods. * BLOOD CX Organism 1 PROTEUS MIRABILIS Organism 2 COAGULASE NEGATIVE STAPH P. MIRAB COAG NEG M.I.C. RX M.I.C. RX --------- --- --------- --- AMPICILLIN >=32 R CEFAZOLIN >=64 R CEFOTAXIME S CIPROFLOXACIN >=4 R >=8 R CLINDAMYCIN <=0.25 S DOXYCYCLINE S ERYTHROMYCIN <=0.25 S GENTAMICIN 4 S LEVOFLOXACIN >=8 R >=8 R OXACILLIN 2 R PENICILLIN-G >=0.5 R RIFAMPIN <=0.5 S VANCOMYCIN 2 S TOBRAMYCIN >=16 R TRIMETHOPRIM/SULFAMETHOXAZOLE >=320 R 80 R URINE CULTURE Final Organism 1 ESCHERICHIA COLI COLONY COUNT >100,000 CFU/ml Organism 2 MORGANELLA MORGANII SSP MORG. E COLI MORMOSP M.I.C. RX M.I.C. RX --------- --- --------- --- AMIKACIN 4 S AMPICILLIN >=32 R CEFAZOLIN S CEFOTAXIME S S CIPROFLOXACIN >=4 R >=4 R GENTAMICIN <=1 S <=1 S LEVOFLOXACIN >=8 R >=8 R NITROFURANTOIN 64 I R TOBRAMYCIN >=16 R <=1 S TRIMETHOPRIM/SULFAMETHOXAZOLE >=320 R >=320 R WOUND CULTURE Preliminary Organism 1 ACINETOBACTER BAUMANNII QUANTITY 4+ A.BAUMANNI M.I.C. RX --------- --- AMIKACIN R CEFTAZIDIME >=64 R CIPROFLOXACIN >=4 R GENTAMICIN 8 I IMIPENEM >=16 R LEVOFLOXACIN >=8 R TOBRAMYCIN 8 I TRIMETHOPRIM/SULFAMETHOXAZOLE >=320 R PIPERACILLIN/TAZOBACTAM >=128 R PHYSICAL EXAMINATION: GENERAL: VSS, NAD, Afebrile HEENT: Unremarkable NECK: Supple, trach-> Vent secure CHEST: Rise symmetrical, without dyspnea on observation HEART: Pulse RRR ABDOMEN: Soft, peg EXTREMITIES: Warm, trace edema SKIN: See wound photos ID ASSESSMENT 76 yo M admit with: 1. Severe sepsis with shock, Polymicrobial bacteremia=> multifactorial. 2. Acute anemia. 3. Recurrent urinary tract infection.URINE CULTURE Final Organism 1 ESCHERICHIA COLI COLONY COUNT >100,000 CFU/ml Organism 2 MORGANELLA MORGANII SSP MORG. 4. Chronic respiratory failure. 5. Unstageable sacral decubitus => GROWING MDRO * OUND CULTURE Preliminary Organism 1 ACINETOBACTER BAUMANNII QUANTITY 4+ 6. Diabetes, blood sugars controlled. 7. Atrial fibrillation. MRSA Nares -> INVASIVES: Trach, PEG, Ferreira, left upper extremity PICC line placed on 2016. ABX ALLERGY: KNDA CURRENT ABX: => Vanco IV + Merrem ID RECOMMENDATIONS 1. Continue current ABX => wound growing MDRO ACBA -- hold off on adding Colistin IV, local wound care w/debridement if possible 2. Observe over the weekend on ABX -> Reassess by ID team next week . Problems: Consultation Date/Type/Reason Admit Date/Time Oct 25, 2016 at 10:54 Initial Consult Date 10/25/16 Type of Consultation: ID Referring Provider: DILIP ARELLANO MD Exam/Review of Systems Vital Signs Vitals Vital Signs Date Time Temp Pulse Resp B/P Pulse Ox O2 Delivery O2 Flow Rate FiO2 10/29/16 17:05 105 18 98 30 10/29/16 10:59 98.2 124/69 10/28/16 12:00 Mechanical Ventilator Intake and Output 10/28/16 10/28/16 10/29/16 15:00 23:00 07:00 Intake Total 75 ml 250 ml 1450 ml Output Total 600 ml 1300 ml Balance -525 ml 250 ml 150 ml Results Result Diagram: 10/29/16 0555 10/29/16 0555 Results 24 hrs Laboratory Tests Test 10/28/16 20:53 10/29/16 00:54 10/29/16 05:00 10/29/16 05:55 Bedside Glucose 117 146 Blood Gas Specimen Source Blood arterial Arterial Blood Date Drawn 10/29/2016 5:12:21 AM Arterial Blood pH (Temp corrected) 7.521 H Arterial Blood pCO2 (Temp correct) 23.4 L Arterial Blood pO2 (Temp corrected) 108.9 H Arterial Blood HCO3 18.7 L Arterial Blood Base Excess -2.9 Arterial Blood Oxygen Saturation 97.8 Vinayak Test ACCEPTAB Arterial Blood Gas Puncture Site Right Radial Arterial Blood Carboxyhemoglobin 0.3 Arterial Blood Methemoglobin 0.4 Blood Gas A-a O2 Differential 77.5 H Oxyhemoglobin Percent 97.1 Total Hemoglobin 10.0 L Blood Gas Temperature 37.0 Blood Gas Respiration Rate 12.0 Blood Gas Actual Respiration Rate 18 Blood Gas Modality VENT - AC FiO2 30.0 Blood Gas Tidal Volume 550.0 Blood Gas Low PEEP Setting 5.0 Blood Gas Inspiratory Pressure 20.0 Blood Gas Notified Whom AA Blood Gas Notified Time 10/29/2016 5:26:59 AM White Blood Count 12.9 H Red Blood Count 3.17 L Hemoglobin 8.2 L Hematocrit 27.2 L Mean Corpuscular Volume 85.8 Mean Corpuscular Hemoglobin 25.9 L Mean Corpuscular Hemoglobin Concent 30.1 L Red Cell Distribution Width 16.6 H Platelet Count 142 Mean Platelet Volume 12.3 H Neutrophils % 80.2 H Lymphocytes % 13.1 L Monocytes % 4.0 Eosinophils % 1.7 Basophils % 0.1 Nucleated Red Blood Cells % 0.0 Neutrophils # 10.3 H Lymphocytes # 1.7 Monocytes # 0.5 Eosinophils # 0.2 Basophils # 0.0 Nucleated Red Blood Cells # 0.0 Sodium Level 153 H Potassium Level 3.7 Chloride Level 124 H Carbon Dioxide Level 18 L Anion Gap 15 # Blood Urea Nitrogen 57 H Creatinine 0.71 Glucose Level 118 Lactic Acid Level 0.9 Calcium Level 7.8 L Test 10/29/16 06:07 10/29/16 09:06 10/29/16 12:56 10/29/16 17:18 Bedside Glucose 130 134 170 167 Medications Medications Current Medications Dextrose (D50w Syringe) 50 ml ONCE PRN IV POC BLOOD GLUCOSE <250 MG/DL; Start 10/25/16 at 11:00 Ondansetron HCl (Zofran Inj) 4 mg Q6H PRN IV NAUSEA AND/OR VOMITING Last administered on 10/27/16 13:51; Admin Dose 4 MG; Start 10/25/16 at 11:00 Nitroglycerin (Nitroglycerin (Sl Tab) 0.4 Mg) 1 tab Q5M PRN SL CHEST PAIN; Start 10/25/16 at 11:00 Acetaminophen (Tylenol Tab) 650 mg Q6H PRN PO PAIN LEVEL 1-3 OR FEVER; Start at 11:00 Acetaminophen (Tylenol Supp) 650 mg Q4H PRN [place] PAIN LEVEL 1-3 OR FEVER; Start 10/25/16 at 11:00 Docusate Sodium (Colace) 100 mg Q12H PRN PO CONSTIPATION; Start 10/25/16 at 11: 00 Bisacodyl (Dulcolax Supp) 10 mg DAILY PRN [place] CONSTIPATION; Start 10/25/16 at 11: 00 Amiodarone HCl (Cordarone) 400 mg BID GTB Last administered on 10/29/16 10:54; Admin Dose 400 MG; Start 10/25/16 at 21:00 Ascorbic Acid (Vitamin C) 500 mg DAILY GTB Last administered on 10/29/16 10:53 ; Admin Dose 500 MG; Start 10/26/16 at 09:00 Chlorhexidine Gluconate (Peridex) 15 ml Q12 MM Last administered on 10/29/16 10 :51; Admin Dose 15 ML; Start 10/25/16 at 21:00 Collagenase (Santyl) 1 applic DAILY TOP Last administered on 10/29/16 10:54; Admin Dose 1 APPLIC; Start 10/26/16 at 09:00 Ferrous Sulfate (Feosol Liquid Cup) 330 mg DAILY GTB Last administered on 10:51; Admin Dose 330 MG; Start 10/26/16 at 09:00 Multivitamins Therapeutic (Theragran) 1 tab DAILY GTB Last administered on 10:53; Admin Dose 1 TAB; Start 10/26/16 at 09:00 Lactobacillus Acidoph/Bulgaricus (Floranex) 1 tab BID PO Last administered on 10:52; Admin Dose 1 TAB; Start 10/25/16 at 21:00 Fenofibrate (Tricor) 145 mg DAILY PO Last administered on 10/29/16 10:53; Admin Dose 145 MG; Start 10/26/16 at 09:00 IV Flush (NS 10 ml) 10 ml PRN PRN IV IV PROTOCOL; Start 10/25/16 at 11:30 Atorvastatin Calcium (Lipitor) 20 mg HS PO Last administered on 10/28/16 20:54 ; Admin Dose 20 MG; Start 10/25/16 at 21:00 Pantoprazole (Protonix Iv) 40 mg BID IV Last administered on 10/29/16 10:51; Admin Dose 40 MG; Start 10/25/16 at 21:00 Miscellaneous Information 1 ea NOTE XX ; Start 10/26/16 at 09:30 Glucose (Glutose) 15 gm Q15M PRN PO DECREASED GLUCOSE; Start 10/26/16 at 09:30 Glucose (Glutose) 22.5 gm Q15M PRN PO DECREASED GLUCOSE; Start 10/26/16 at 09:30 Dextrose (D50w Syringe) 25 ml Q15M PRN IV DECREASED GLUCOSE; Start 10/26/16 at 09:30 Dextrose (D50w Syringe) 50 ml Q15M PRN IV DECREASED GLUCOSE; Start 10/26/16 at 09:30 Glucagon (Glucagen) 1 mg Q15M PRN IM DECREASED GLUCOSE; Start 10/26/16 at 09:30 Glucose (Glutose) 15 gm Q15M PRN BUCCAL DECREASED GLUCOSE; Start 10/26/16 at 09: 30 Insulin Glargine (Lantus) 12 unit DAILY@20 SC Last administered on 10/28/16 21: 07; Admin Dose 12 UNIT; Start 10/26/16 at 20:00 Citric Acid/ Sodium Citrate 30 ml 30 ml BID PO Last administered on 10/29/16 10 :51; Admin Dose 30 ML; Start 10/26/16 at 10:30 Meropenem (Merrem 500 Mg/ 100 ml (Pmx)) 100 ml @ 200 mls/hr Q8 IVPB Last administered on 10/29/16 15:12; Admin Dose 200 MLS/HR; Start 10/26/16 at 14:00 Sodium Hypochlorite (Dakin'S (07/26 Strength)) 1 applic DAILY IRR Last administered on 10/29/16 10:53; Admin Dose 1 APPLIC; Start 10/27/16 at 09:00 Insulin Aspart NOVOLOG *MILD* ALGORI... Q6 SC Last administered on 10/29/16 17: 51; Admin Dose 1 UNIT; Start 10/29/16 at 12:00 Vancomycin HCl 1.5 gm/Sodium Chloride 250 ml @ 83.333 mls/ hr Q24H IVPB ; Start 10/29/16 at 20:00 Potassium Chloride/Dextrose (D5W + KCl 20 Meq) 1,000 ml @ 80 mls/hr [id number] IV ; Start 10/29/16 at 11:30 [facility] Oct 29, 2016 19:30
--- NOTE | 2016-10-29 19:48 | CONS ---
Date/Time of Note Date/Time of Note DATE: 10/29/16 TIME: 19:43 Assessment/Plan Assessment/Plan Chief Complaint/Hosp Course Pt being closely followed by several consultatnts Problems: Additional Assessment/Plan Renal mathew improved, will change IV & try free water via GT F/U lab in AM Consultation Date/Type/Reason Admit Date/Time Oct 25, 2016 at 10:54 Initial Consult Date 10/25/16 Type of Consultation: renal Referring Provider: DILIP ARELLANO MD 24 HR Interval Summary Free Text/Dictation Pt is vent dependant, confined to bed Subjective hx not possible: pt non-verbal Exam/Review of Systems Vital Signs Vitals Vital Signs Date Time Temp Pulse Resp B/P Pulse Ox O2 Delivery O2 Flow Rate FiO2 10/29/16 17:05 105 18 98 30 10/29/16 10:59 98.2 124/69 10/28/16 12:00 Mechanical Ventilator Intake and Output 10/28/16 10/28/16 10/29/16 15:00 23:00 07:00 Intake Total 75 ml 250 ml 1450 ml Output Total 600 ml 1300 ml Balance -525 ml 250 ml 150 ml Exam Constitutional: non-verbal Head: normocephalic Eyes: PERRL ENMT: intubated Neck: other (Trach), supple Respiratory: crackles/rales Cardiovascular: regular rate and rhythm Gastrointestinal: other (peg site inflamed, pt to have colonoscopy in AM), soft Extremities: normal pulses Skin: nl turgor Results Seum Na is higher at 153 Result Diagram: 10/29/16 0555 10/29/16 0555 Results 24 hrs Laboratory Tests Test 10/28/16 20:53 10/29/16 00:54 10/29/16 05:00 10/29/16 05:55 Bedside Glucose 117 146 Blood Gas Specimen Source Blood arterial Arterial Blood Date Drawn 10/29/2016 5:12:21 AM Arterial Blood pH (Temp corrected) 7.521 H Arterial Blood pCO2 (Temp correct) 23.4 L Arterial Blood pO2 (Temp corrected) 108.9 H Arterial Blood HCO3 18.7 L Arterial Blood Base Excess -2.9 Arterial Blood Oxygen Saturation 97.8 Vinayak Test ACCEPTAB Arterial Blood Gas Puncture Site Right Radial Arterial Blood Carboxyhemoglobin 0.3 Arterial Blood Methemoglobin 0.4 Blood Gas A-a O2 Differential 77.5 H Oxyhemoglobin Percent 97.1 Total Hemoglobin 10.0 L Blood Gas Temperature 37.0 Blood Gas Respiration Rate 12.0 Blood Gas Actual Respiration Rate 18 Blood Gas Modality VENT - AC FiO2 30.0 Blood Gas Tidal Volume 550.0 Blood Gas Low PEEP Setting 5.0 Blood Gas Inspiratory Pressure 20.0 Blood Gas Notified Whom AA Blood Gas Notified Time 10/29/2016 5:26:59 AM White Blood Count 12.9 H Red Blood Count 3.17 L Hemoglobin 8.2 L Hematocrit 27.2 L Mean Corpuscular Volume 85.8 Mean Corpuscular Hemoglobin 25.9 L Mean Corpuscular Hemoglobin Concent 30.1 L Red Cell Distribution Width 16.6 H Platelet Count 142 Mean Platelet Volume 12.3 H Neutrophils % 80.2 H Lymphocytes % 13.1 L Monocytes % 4.0 Eosinophils % 1.7 Basophils % 0.1 Nucleated Red Blood Cells % 0.0 Neutrophils # 10.3 H Lymphocytes # 1.7 Monocytes # 0.5 Eosinophils # 0.2 Basophils # 0.0 Nucleated Red Blood Cells # 0.0 Sodium Level 153 H Potassium Level 3.7 Chloride Level 124 H Carbon Dioxide Level 18 L Anion Gap 15 # Blood Urea Nitrogen 57 H Creatinine 0.71 Glucose Level 118 Lactic Acid Level 0.9 Calcium Level 7.8 L Test 10/29/16 06:07 10/29/16 09:06 10/29/16 12:56 10/29/16 17:18 Bedside Glucose 130 134 170 167 Medications Medications Current Medications Dextrose (D50w Syringe) 50 ml ONCE PRN IV POC BLOOD GLUCOSE <250 MG/DL; Start 10/25/16 at 11:00 Ondansetron HCl (Zofran Inj) 4 mg Q6H PRN IV NAUSEA AND/OR VOMITING Last administered on 10/27/16t 13:51; Admin Dose 4 MG; Start 10/25/16 at 11:00 Nitroglycerin (Nitroglycerin (Sl Tab) 0.4 Mg) 1 tab Q5M PRN SL CHEST PAIN; Start 10/25/16 at 11:00 Acetaminophen (Tylenol Tab) 650 mg Q6H PRN PO PAIN LEVEL 1-3 OR FEVER; Start at 11:00 Acetaminophen (Tylenol Supp) 650 mg Q4H PRN [place] PAIN LEVEL 1-3 OR FEVER; Start 10/25/16 at 11:00 Docusate Sodium (Colace) 100 mg Q12H PRN PO CONSTIPATION; Start 10/25/16 at 11: 00 Bisacodyl (Dulcolax Supp) 10 mg DAILY PRN [place] CONSTIPATION; Start 10/25/16 at 11: 00 Amiodarone HCl (Cordarone) 400 mg BID GTB Last administered on 10/29/16 10:54; Admin Dose 400 MG; Start 10/25/16 at 21:00 Ascorbic Acid (Vitamin C) 500 mg DAILY GTB Last administered on 10/29/16 10:53 ; Admin Dose 500 MG; Start 10/26/16 at 09:00 Chlorhexidine Gluconate (Peridex) 15 ml Q12 MM Last administered on 10/29/16 10 :51; Admin Dose 15 ML; Start 10/25/16 at 21:00 Collagenase (Santyl) 1 applic DAILY TOP Last administered on 10/29/16 10:54; Admin Dose 1 APPLIC; Start 10/26/16 at 09:00 Ferrous Sulfate (Feosol Liquid Cup) 330 mg DAILY GTB Last administered on 10:51; Admin Dose 330 MG; Start 10/26/16 at 09:00 Multivitamins Therapeutic (Theragran) 1 tab DAILY GTB Last administered on 10:53; Admin Dose 1 TAB; Start 10/26/16 at 09:00 Lactobacillus Acidoph/Bulgaricus (Floranex) 1 tab BID PO Last administered on 10:52; Admin Dose 1 TAB; Start 10/25/16 at 21:00 Fenofibrate (Tricor) 145 mg DAILY PO Last administered on 10/29/16 10:53; Admin Dose 145 MG; Start 10/26/16 at 09:00 IV Flush (NS 10 ml) 10 ml PRN PRN IV IV PROTOCOL; Start 10/25/16 at 11:30 Atorvastatin Calcium (Lipitor) 20 mg HS PO Last administered on 10/28/16 20:54 ; Admin Dose 20 MG; Start 10/25/16 at 21:00 Pantoprazole (Protonix Iv) 40 mg BID IV Last administered on 10/29/16 10:51; Admin Dose 40 MG; Start 10/25/16 at 21:00 Miscellaneous Information 1 ea NOTE XX ; Start 10/26/16 at 09:30 Glucose (Glutose) 15 gm Q15M PRN PO DECREASED GLUCOSE; Start 10/26/16 at 09:30 Glucose (Glutose) 22.5 gm Q15M PRN PO DECREASED GLUCOSE; Start 10/26/16 at 09:30 Dextrose (D50w Syringe) 25 ml Q15M PRN IV DECREASED GLUCOSE; Start 10/26/16 at 09:30 Dextrose (D50w Syringe) 50 ml Q15M PRN IV DECREASED GLUCOSE; Start 10/26/16 at 09:30 Glucagon (Glucagen) 1 mg Q15M PRN IM DECREASED GLUCOSE; Start 10/26/16 at 09:30 Glucose (Glutose) 15 gm Q15M PRN BUCCAL DECREASED GLUCOSE; Start 10/26/16 at 09: 30 Insulin Glargine (Lantus) 12 unit DAILY@20 SC Last administered on 10/28/16 21: 07; Admin Dose 12 UNIT; Start 10/26/16 at 20:00 Citric Acid/ Sodium Citrate 30 ml 30 ml BID PO Last administered on 10/29/16 10 :51; Admin Dose 30 ML; Start 10/26/16 at 10:30 Meropenem (Merrem 500 Mg/ 100 ml (Pmx)) 100 ml @ 200 mls/hr Q8 IVPB Last administered on 10/29/16 15:12; Admin Dose 200 MLS/HR; Start 10/26/16 at 14:00 Sodium Hypochlorite (Dakin'S (1/4 Strength)) 1 applic DAILY IRR Last administered on 10/29/16 10:53; Admin Dose 1 APPLIC; Start 10/27/16 at 09:00 Insulin Aspart NOVOLOG *MILD* ALGORI... Q6 SC Last administered on 10/29/16 17: 51; Admin Dose 1 UNIT; Start 10/29/16 at 12:00 Vancomycin HCl 1.5 gm/Sodium Chloride 250 ml @ 83.333 mls/ hr Q24H IVPB ; Start 10/29/16 at 20:00 Potassium Chloride/Dextrose (D5W + KCl 20 Meq) 1,000 ml @ 80 mls/hr [id number] IV ; Start 10/29/16 at 11:30 RANDALL FRANKLIN MD Oct 29, 2016 19:48
[2016-10-29] MEDS ORDERED: VANCOMYCIN 1.5 GM in SOD CHLORIDE 0.9% 250 ML IVPB SCH (20:00)
--- NOTE | 2016-10-29 20:06 | PN ---
Date/Time of Note Date/Time of Note DATE: 10/28/16 TIME: 20:03 Assessment/Plan Lines/Catheters IV Catheter Type (from [facility]): PICC Line Ferreira in Place (from [facility]): Yes Assessment/Plan Chief Complaint/Hosp Course 1. Sacral deep tissue injury. -eventual excisional debridement -offloading -optimize nutrition per feeding tube -vitamin C administration -local care. 2. Lower extremity decubitus ulcerations as above. 3. Shock (sepsis plus or minus hypovolemia, plus or minus cardiac). Improved 4. Continue judicious fluid management, cardiac optimization and treatment of underlying infections. 5. Urinary tract infection. Continue antibiotics. 6. Significant anemia of unknown etiology. EGD performed. No sources identified. Apparently however, patient needs a colonoscopy. 7. Diabetes. Continue nutrition and medication control. 8. Elevated troponin with non-ST elevation myocardial infarction. Continue cardiac optimization. 9. History of cerebrovascular accident. Continue medical optimization. 10. Peptic ulcer disease. Continue proton pump inhibitors. 11. Coronary artery disease. Continue cardiac optimization. 12. Acute renal insufficiency secondary to above. Continue judicious fluid management. 13. Ventilator-dependent respiratory failure. Continue pulmonary toilet. 14. Dysphagia and tube feeds s/p PEG Thank you Late entry 10/28 Problems: Subjective 24 Hr Interval Summary Transferred out of ICU. No f/c. No pressors. No cough. No sz/rash. No bloating. No vomiting. Leukocytosis. Exam/Review of Systems Vital Signs Vitals Vital Signs Date Time Temp Pulse Resp B/P Pulse Ox O2 Delivery O2 Flow Rate FiO2 10/29/16 17:05 105 18 98 30 10/29/16 10:59 98.2 124/69 10/28/16 12:00 Mechanical Ventilator Intake and Output 10/28/16 10/28/16 10/29/16 15:00 23:00 07:00 Intake Total 75 ml 250 ml 1450 ml Output Total 600 ml 1300 ml Balance -525 ml 250 ml 150 ml Exam Free Text/Dictation GENERAL: Awake but noncommunicative. HEENT: The pupils are equal and reactive. No scleral icterus. Mucous membranes are moist. NECK: Trach in place. No JVD. PULMONARY: Decreased breath sounds. No wheezing. CARDIAC: S1, S2 present. ABDOMEN: Soft. PEG in place. EXTREMITIES: Minimal edema. VASCULAR: Capillary refill is 3 seconds. NEUROLOGIC: Awake, but does not follow commands. SKIN: Deep tissue injury of the sacrococcyx. Bilateral lower extremity skin injuries. Results Result Diagram: 10/29/16 0555 10/29/16 0555 MINNIE SHIELDS MD Oct 29, 2016 20:06
--- NOTE | 2016-10-29 20:07 | PN ---
Date/Time of Note Date/Time of Note DATE: 10/29/16 TIME: 20:06 Assessment/Plan Lines/Catheters IV Catheter Type (from [facility]): PICC Line Ferreira in Place (from [facility]): Yes Assessment/Plan Chief Complaint/Hosp Course 1. Sacral deep tissue injury. -eventual excisional debridement -offloading -optimize nutrition per feeding tube -vitamin C administration -local care. 2. Lower extremity decubitus ulcerations as above. 3. Shock (sepsis plus or minus hypovolemia, plus or minus cardiac). Improved 4. Continue judicious fluid management, cardiac optimization and treatment of underlying infections. 5. Urinary tract infection. Continue antibiotics. 6. Significant anemia of unknown etiology. EGD performed. No sources identified. Apparently however, patient needs a colonoscopy. 7. Diabetes. Continue nutrition and medication control. 8. Elevated troponin with non-ST elevation myocardial infarction. Continue cardiac optimization. 9. History of cerebrovascular accident. Continue medical optimization. 10. Peptic ulcer disease. Continue proton pump inhibitors. 11. Coronary artery disease. Continue cardiac optimization. 12. Acute renal insufficiency secondary to above. Continue judicious fluid management. 13. Ventilator-dependent respiratory failure. Continue pulmonary toilet. 14. Dysphagia and tube feeds s/p PEG Thank you, Problems: Subjective 24 Hr Interval Summary Transferred out of ICU. No f/c. No pressors. No cough. No sz/rash. No bloating. No vomiting. Leukocytosis. Exam/Review of Systems Vital Signs Vitals Vital Signs Date Time Temp Pulse Resp B/P Pulse Ox O2 Delivery O2 Flow Rate FiO2 10/29/16 17:05 105 18 98 30 10/29/16 10:59 98.2 124/69 10/28/16 12:00 Mechanical Ventilator Intake and Output 10/28/16 10/28/16 10/29/16 15:00 23:00 07:00 Intake Total 75 ml 250 ml 1450 ml Output Total 600 ml 1300 ml Balance -525 ml 250 ml 150 ml Exam Free Text/Dictation GENERAL: Awake but noncommunicative. HEENT: The pupils are equal and reactive. No scleral icterus. Mucous membranes are moist. NECK: Trach in place. No JVD. PULMONARY: Decreased breath sounds. No wheezing. CARDIAC: S1, S2 present. ABDOMEN: Soft. PEG in place. EXTREMITIES: Minimal edema. VASCULAR: Capillary refill is 3 seconds. NEUROLOGIC: Awake, but does not follow commands. SKIN: Deep tissue injury of the sacrococcyx. Bilateral lower extremity skin injuries. Results Result Diagram: 10/29/16 0555 10/29/16 0555 MINNIE SHIELDS MD Oct 29, 2016 20:07
[2016-10-29] MEDS: ATORVASTATIN 20 MG TAB PO SCH (20:28)
[2016-10-29] MEDS: INSULIN GLARGINE [LANtus] 3 ML PEN SC SCH (20:43)
[2016-10-30] VITALS (23 sets, daily range): BP systolic 104–143; BP diastolic 53–73; PULSE 89–103; RESP 14–22
[2016-10-30] MEDS ORDERED: VANCOMYCIN 1 GM in NS 250 ML IVPB SCH (04:00)
[2016-10-30] MEDS: INSULIN ASPART [NOVOLOG] 3 ML PEN SC SCH ×4 (06:00→17:18)
[2016-10-30] MEDS ORDERED: PEG/ELECTROLYTES 4L BTL GTB ONE ×2 (06:00→18:30)
[2016-10-30] MEDS: MEROPENEM 500 MG/100 ML (PMX) 100 ML IVPB SCH ×2 (06:14→14:24)
[2016-10-30 07:11] LABS: ADD SCAN DIFF NO
[2016-10-30 07:14] LABS: BASOPHILS % 0.2 % (0.0-2.0); EOSINOPHILS # 0.2 10^3/ul (0.0-0.5); HEMATOCRIT 25.8 % (42.0-52.0); HEMOGLOBIN 7.6 g/dl (14.0-18.0); LYMPHOCYTES % 19.1 % (15.0-51.0); MEAN CORPUSCULAR HEMOGLOBIN 25.7 pg (29.0-33.0); MEAN CORPUSCULAR HGB CONC 29.5 g/dl (32.0-37.0); MEAN CORPUSCULAR VOLUME 87.2 fl (82.0-101.0); MEAN PLATELET VOLUME 12.2 fl (7.4-10.4); MONOCYTE # 0.8 10^3/ul (0.3-0.9); MONOCYTES % 5.2 % (0.0-11.0); NEUTROPHIL # 11.4 10^3/ul (1.6-7.5); NEUTROPHILS % 72.8 % (39.0-77.0); PLATELET COUNT 133 10^3/UL (140-415); RED BLOOD COUNT 2.96 10^6/ul (4.70-6.10); RED CELL DISTRIBUTION WIDTH 17.2 % (11.5-14.5); WHITE BLOOD COUNT 15.6 10^3/ul (4.8-10.8)
[2016-10-30 07:25] LABS: INR 1.36; PARTIAL THROMBOPLASTIN TIME 35.1 Sec (25.0-35.0); PROTIME 16.8 Sec (12.2-14.2); PT RATIO 1.3
[2016-10-30 07:26] LABS: POTASSIUM 3.7 mmol/L (3.5-5.1)
[2016-10-30 07:29] LABS: CREATININE 0.72 mg/dl (0.61-1.24)
[2016-10-30 07:30] LABS: CALCIUM 7.8 mg/dl (8.4-10.2)
--- NOTE | 2016-10-30 07:46 | PN ---
DATE: 10/29/2016 CARDIOLOGY FOLLOWUP SUBJECTIVE: Discussed with the staff in the ICU. remains status post tracheostomy, on the ve nt. She remains in sinus tachycardia. No evidence of atrial fibrillation. MEDICATIONS: Reviewed. PHYSICAL EXAMINATION: VITAL SIGNS: Temperature 98, heart rate of 104, blood pressure 124/69, respiration rate of 21, satu rating 98%. HEENT: Normocephalic, atraumatic. Pupils are equal. NECK: Status post tracheostomy, on the vent. CARDIOVASCULAR: Tachycardic. PULMONARY: With mild rhonchi. GASTROINTESTINAL: Soft. EXTREMITIES: Diffuse edema. NEUROLOGIC: Opens eyes, does not follow commands. LABORATORY: WBC of 12.9, hemoglobin 8.2, platelets of 142. Sodium 153, potassium 3.7, BUN of 57, c reatinine 0.71, glucose 118. ASSESSMENT AND PLAN: 1. Hypoxemia respiratory failure, status post tracheostomy. 2. Paroxysmal atrial fibrillation, currently in sinus rhythm, sinus tachycardia. 3. Status post septic shock, currently blood pressure has improved. 4. Mildly abnormal troponin due to above. 5. Tachycardia secondary to above as well as anemia. 6. Renal insufficiency. 7. Severe anemia, electrolyte abnormalities including hypernatremia, hyperkalemia. RECOMMENDATIONS: 1. electrolytes. Continue vent support. Antibiotic as per ID's recommendations. 2. Respiratory care will be continued. Diabetic management as per internal medicine. 3. Dr. Ceja and associate will follow up tomorrow. Dictated By: BOY FIERRO/GENOVEVA Conf#: [id number] DID#: [id number]
[2016-10-30] MEDS: FERROUS SULFATE 60 MG/ML 5ML CUP GTB SCH (09:48)
[2016-10-30] MEDS: AMIODARONE 200 MG TAB GTB SCH ×2 (09:48→22:04)
[2016-10-30] MEDS: CITRIC ACID/NA CITRATE 30 ML CUP PO SCH ×2 (09:49→20:58)
[2016-10-30] MEDS: FENOFIBRATE 145 MG TAB PO SCH (09:49)
[2016-10-30] MEDS: LACTOBACILLUS CHEW TAB PO SCH ×2 (09:49→21:00)
[2016-10-30] MEDS: CHLORHEXIDINE GLUCONATE 15 ML UD CUP MM SCH ×2 (09:49→20:58)
[2016-10-30] MEDS: MULTIVITAMINS THERAPEUTIC TAB GTB SCH (09:49)
[2016-10-30] MEDS: PANTOPRAZOLE 40 MG INJ IV SCH ×2 (09:49→20:58)
[2016-10-30] MEDS: ASCORBIC ACID 500 MG TAB GTB SCH (09:49)
[2016-10-30] MEDS: COLLAGENASE 30 GM TUBE TOP SCH (09:49)
[2016-10-30] MEDS: SODIUM HYPOCHLORITE 0.125% 473 ML BTL IRR SCH (09:50)
--- NOTE | 2016-10-30 10:56 | CONS ---
Date/Time of Note Date/Time of Note DATE: 10/30/16 TIME: 10:53 Assessment/Plan Assessment/Plan Additional Assessment/Plan Septic shock Acute blood loss anemia Elevated troponin likely secondary to above Respiratory failure Paroxysmal atrial fibrillation, currently sinus rhythm Paroxysmal atrial tachycardia Preserved ejection fraction Acute kidney injury -Blood pressure trend improved, IV fluids as per nephrology. Continue to hold any antihypertensives at the current time. No anticoagulation given history of recurrent hematuria and currently active hematuria. Consultation Date/Type/Reason Admit Date/Time Oct 25, 2016 at 10:54 Initial Consult Date 10/25/16 Type of Consultation: cv Referring Provider: DILIP ARELLANO MD 24 HR Interval Summary Free Text/Dictation Patient seen and examined, now with hematuria Exam/Review of Systems Vital Signs Vitals Vital Signs Date Time Temp Pulse Resp B/P Pulse Ox O2 Delivery O2 Flow Rate FiO2 10/30/16 09:37 100 14 99 30 10/30/16 07:21 99.1 114/73 10/28/16 12:00 Mechanical Ventilator Intake and Output 10/29/16 10/29/16 10/30/16 15:00 23:00 07:00 Intake Total 1160 ml 1300 ml Output Total 800 ml 5850 ml Balance 360 ml -4550 ml Exam Alert, no apparent distress, occasionally following commands Head: normocephalic Neck: other (Tracheostomy) Respiratory: other (Coarse breath sounds bilaterally, no wheezing) Cardiovascular: other (S1-S2 heard), regular rate and rhythm Gastrointestinal: bowel sounds, non-tender, soft Extremities: edema Results Result Diagram: 10/30/16 0655 10/30/16 0655 Results 24 hrs Laboratory Tests Test 10/29/16 12:56 10/29/16 17:18 10/29/16 19:05 10/29/16 20:31 Bedside Glucose 170 167 159 Vancomycin Level Trough 23.4 *H Test 10/30/16 00:24 10/30/16 05:29 10/30/16 06:55 Bedside Glucose 130 105 White Blood Count 15.6 #H Red Blood Count 2.96 L Hemoglobin 7.6 L Hematocrit 25.8 L Mean Corpuscular Volume 87.2 Mean Corpuscular Hemoglobin 25.7 L Mean Corpuscular Hemoglobin Concent 29.5 L Red Cell Distribution Width 17.2 H Platelet Count 133 L Mean Platelet Volume 12.2 H Neutrophils % 72.8 Lymphocytes % 19.1 Monocytes % 5.2 Eosinophils % 1.0 Basophils % 0.2 Nucleated Red Blood Cells % 0.0 Neutrophils # 11.4 H Lymphocytes # 3.0 H Monocytes # 0.8 Eosinophils # 0.2 Basophils # 0.0 Nucleated Red Blood Cells # 0.0 Prothrombin Time 16.8 H Prothrombin Time Ratio 1.3 INR International Normalized Ratio 1.36 Activated Partial Thromboplast Time 35.1 H Sodium Level 152 H Potassium Level 3.7 Chloride Level 124 H Carbon Dioxide Level 22 Anion Gap 10 # Blood Urea Nitrogen 38 #H Creatinine 0.72 Glucose Level 97 Calcium Level 7.8 L Medications Medications Current Medications Dextrose (D50w Syringe) 50 ml ONCE PRN IV POC BLOOD GLUCOSE <250 MG/DL; Start 10/25/16 at 11:00 Ondansetron HCl (Zofran Inj) 4 mg Q6H PRN IV NAUSEA AND/OR VOMITING Last administered on 10/27/16 13:51; Admin Dose 4 MG; Start 10/25/16 at 11:00 Nitroglycerin (Nitroglycerin (Sl Tab) 0.4 Mg) 1 tab Q5M PRN SL CHEST PAIN; Start 10/25/16 at 11:00 Acetaminophen (Tylenol Tab) 650 mg Q6H PRN PO PAIN LEVEL 1-3 OR FEVER; Start at 11:00 Acetaminophen (Tylenol Supp) 650 mg Q4H PRN [place] PAIN LEVEL 1-3 OR FEVER; Start 10/25/16 at 11:00 Docusate Sodium (Colace) 100 mg Q12H PRN PO CONSTIPATION; Start 10/25/16 at 11: 00 Bisacodyl (Dulcolax Supp) 10 mg DAILY PRN [place] CONSTIPATION; Start 10/25/16 at 11: 00 Amiodarone HCl (Cordarone) 400 mg BID GTB Last administered on 10/30/16 09:48 ; Admin Dose 400 MG; Start 10/25/16 at 21:00 Ascorbic Acid (Vitamin C) 500 mg DAILY GTB Last administered on 10/30/16 09:49 ; Admin Dose 500 MG; Start 10/26/16 at 09:00 Chlorhexidine Gluconate (Peridex) 15 ml Q12 MM Last administered on 10/30/16 09:49; Admin Dose 15 ML; Start 10/25/16 at 21:00 Collagenase (Santyl) 1 applic DAILY TOP Last administered on 10/30/16 09:49; Admin Dose 1 APPLIC; Start 10/26/16 at 09:00 Ferrous Sulfate (Feosol Liquid Cup) 330 mg DAILY GTB Last administered on 09:48; Admin Dose 330 MG; Start 10/26/16 at 09:00 Multivitamins Therapeutic (Theragran) 1 tab DAILY GTB Last administered on 10/30 09:49; Admin Dose 1 TAB; Start 10/26/16 at 09:00 Lactobacillus Acidoph/Bulgaricus (Floranex) 1 tab BID PO Last administered on 09:49; Admin Dose 1 TAB; Start 10/25/16 at 21:00 Fenofibrate (Tricor) 145 mg DAILY PO Last administered on 10/30/16 09:49; Admin Dose 145 MG; Start 10/26/16 at 09:00 IV Flush (NS 10 ml) 10 ml PRN PRN IV IV PROTOCOL; Start 10/25/16 at 11:30 Atorvastatin Calcium (Lipitor) 20 mg HS PO Last administered on 10/29/16 20:28 ; Admin Dose 20 MG; Start 10/25/16 at 21:00 Pantoprazole (Protonix Iv) 40 mg BID IV Last administered on 10/30/16 09:49; Admin Dose 40 MG; Start 10/25/16 at 21:00 Miscellaneous Information 1 ea NOTE XX ; Start 10/26/16 at 09:30 Glucose (Glutose) 15 gm Q15M PRN PO DECREASED GLUCOSE; Start 10/26/16 at 09:30 Glucose (Glutose) 22.5 gm Q15M PRN PO DECREASED GLUCOSE; Start 10/26/16 at 09:30 Dextrose (D50w Syringe) 25 ml Q15M PRN IV DECREASED GLUCOSE; Start 10/26/16 at 09:30 Dextrose (D50w Syringe) 50 ml Q15M PRN IV DECREASED GLUCOSE; Start 10/26/16 at 09:30 Glucagon (Glucagen) 1 mg Q15M PRN IM DECREASED GLUCOSE; Start 10/26/16 at 09:30 Glucose (Glutose) 15 gm Q15M PRN BUCCAL DECREASED GLUCOSE; Start 10/26/16 at 09: 30 Insulin Glargine (Lantus) 12 unit DAILY@20 SC Last administered on 10/29/16 20: 43; Admin Dose 12 UNIT; Start 10/26/16 at 20:00 Citric Acid/ Sodium Citrate 30 ml 30 ml BID PO Last administered on 10/30/16 09:49; Admin Dose 30 ML; Start 10/26/16 at 10:30 Meropenem (Merrem 500 Mg/ 100 ml (Pmx)) 100 ml @ 200 mls/hr Q8 IVPB Last administered on 10/30/16 06:14; Admin Dose 200 MLS/HR; Start 10/26/16 at 14:00 Sodium Hypochlorite (Dakin'S (1/4 Strength)) 1 applic DAILY IRR Last administered on 10/30/16 09:50; Admin Dose 1 APPLIC; Start 10/27/16 at 09:00 Insulin Aspart NOVOLOG *MILD* ALGORI... Q6 SC Last administered on 10/29/16 17: 51; Admin Dose 1 UNIT; Start 10/29/16 at 12:00 Potassium Chloride/Dextrose 1,000 ml @ 80 mls/hr [id number] IV Last administered on 10/29/16 20:48; Admin Dose 80 MLS/HR; Start 10/29/16 at 11:30 Vancomycin HCl (Vancocin) 250 ml @ 125 mls/hr Q24H IVPB Last administered on 04:40; Admin Dose 125 MLS/HR; Start 10/30/16 at 04:00 Ervin Ceja DO Oct 30, 2016 10:56
[2016-10-30] MEDS: D5W + KCL 20 MEQ 1,000 ML IV SCH ×4 (12:55→20:36)
[2016-10-30] MEDS ORDERED: MAGNESIUM CITRATE 300 ML BTL GTB ONE (13:00)
--- NOTE | 2016-10-30 13:29 | CONS ---
Date/Time of Note Date/Time of Note DATE: 10/30/16 TIME: 13:27 Assessment/Plan Assessment/Plan Additional Assessment/Plan Ventilator settings; AC of 12, tidal volume 550, PEEP of 5, 30% FiO2. Assessment recommendations; next 1. Patient admitted for UTI and sepsis with significant clinical improvement. 2. History of multiple pneumonias in the past. 3. Chronic respiratory failure, ventilator dependent. 5. History of multi-infarct dementia. Continue current treatment. Patient can be transferred to the half-way. Consultation Date/Type/Reason Admit Date/Time Oct 25, 2016 at 10:54 Initial Consult Date 10/25/16 Type of Consultation: Pulmonary Referring Provider: DILIP ARELLANO MD 24 HR Interval Summary Free Text/Dictation Patient condition remains stable. Has been transferred out to telemetry unit. Because of underlying dementia patient not much responsive. Has remained hemodynamically stable. General exam; elderly male, on ventilator via tracheostomy currently in no distress. Exam/Review of Systems Vital Signs Vitals Vital Signs Date Time Temp Pulse Resp B/P Pulse Ox O2 Delivery O2 Flow Rate FiO2 10/30/16 13:08 100 14 95 30 10/30/16 11:53 99.0 121/70 10/28/16 12:00 Mechanical Ventilator Intake and Output 10/29/16 10/29/16 10/30/16 15:00 23:00 07:00 Intake Total 1160 ml 1300 ml Output Total 800 ml 5850 ml Balance 360 ml -4550 ml Exam H EENT exam is; supple neck, tracheostomy in place. Insertion site is clean. No neck masses. No thyromegaly. Pupils are small bilaterally. No lymphadenopathy. Chest examination; clear to auscultation bilaterally. S1-S2 audible, no murmurs. Regular rhythm. Abdomen examination; soft, G-tube in place. No organomegaly. Nondistended. Bowel sounds audible. Extremity exam is; no peripheral edema. VISUAL ASSOCIATE examination; patient wakes up on command. Results Result Diagram: 10/30/16 0655 10/30/16 0655 Results 24 hrs Laboratory Tests Test 10/29/16 17:18 10/29/16 19:05 10/29/16 20:31 10/30/16 00:24 Bedside Glucose 167 159 130 Vancomycin Level Trough 23.4 *H Test 10/30/16 05:29 10/30/16 06:55 10/30/16 12:55 Bedside Glucose 105 111 White Blood Count 15.6 #H Red Blood Count 2.96 L Hemoglobin 7.6 L Hematocrit 25.8 L Mean Corpuscular Volume 87.2 Mean Corpuscular Hemoglobin 25.7 L Mean Corpuscular Hemoglobin Concent 29.5 L Red Cell Distribution Width 17.2 H Platelet Count 133 L Mean Platelet Volume 12.2 H Neutrophils % 72.8 Lymphocytes % 19.1 Monocytes % 5.2 Eosinophils % 1.0 Basophils % 0.2 Nucleated Red Blood Cells % 0.0 Neutrophils # 11.4 H Lymphocytes # 3.0 H Monocytes # 0.8 Eosinophils # 0.2 Basophils # 0.0 Nucleated Red Blood Cells # 0.0 Prothrombin Time 16.8 H Prothrombin Time Ratio 1.3 INR International Normalized Ratio 1.36 Activated Partial Thromboplast Time 35.1 H Sodium Level 152 H Potassium Level 3.7 Chloride Level 124 H Carbon Dioxide Level 22 Anion Gap 10 # Blood Urea Nitrogen 38 #H Creatinine 0.72 Glucose Level 97 Calcium Level 7.8 L Medications Medications Current Medications Dextrose (D50w Syringe) 50 ml ONCE PRN IV POC BLOOD GLUCOSE <250 MG/DL; Start 10/25/16 at 11:00 Ondansetron HCl (Zofran Inj) 4 mg Q6H PRN IV NAUSEA AND/OR VOMITING Last administered on 10/27/16 13:51; Admin Dose 4 MG; Start 10/25/16 at 11:00 Nitroglycerin (Nitroglycerin (Sl Tab) 0.4 Mg) 1 tab Q5M PRN SL CHEST PAIN; Start 10/25/16 at 11:00 Acetaminophen (Tylenol Tab) 650 mg Q6H PRN PO PAIN LEVEL 1-3 OR FEVER; Start at 11:00 Acetaminophen (Tylenol Supp) 650 mg Q4H PRN [place] PAIN LEVEL 1-3 OR FEVER; Start 10/25/16 at 11:00 Docusate Sodium (Colace) 100 mg Q12H PRN PO CONSTIPATION; Start 10/25/16 at 11: 00 Bisacodyl (Dulcolax Supp) 10 mg DAILY PRN [place] CONSTIPATION; Start 10/25/16 at 11: 00 Amiodarone HCl (Cordarone) 400 mg BID GTB Last administered on 10/30/16 09:48 ; Admin Dose 400 MG; Start 10/25/16 at 21:00 Ascorbic Acid (Vitamin C) 500 mg DAILY GTB Last administered on 10/30/16 09:49 ; Admin Dose 500 MG; Start 10/26/16 at 09:00 Chlorhexidine Gluconate (Peridex) 15 ml Q12 MM Last administered on 10/30/16 09:49; Admin Dose 15 ML; Start 10/25/16 at 21:00 Collagenase (Santyl) 1 applic DAILY TOP Last administered on 10/30/16 09:49; Admin Dose 1 APPLIC; Start 10/26/16 at 09:00 Ferrous Sulfate (Feosol Liquid Cup) 330 mg DAILY GTB Last administered on 09:48; Admin Dose 330 MG; Start 10/26/16 at 09:00 Multivitamins Therapeutic (Theragran) 1 tab DAILY GTB Last administered on 10/30 09:49; Admin Dose 1 TAB; Start 10/26/16 at 09:00 Lactobacillus Acidoph/Bulgaricus (Floranex) 1 tab BID PO Last administered on 09:49; Admin Dose 1 TAB; Start 10/25/16 at 21:00 Fenofibrate (Tricor) 145 mg DAILY PO Last administered on 10/30/16 09:49; Admin Dose 145 MG; Start 10/26/16 at 09:00 IV Flush (NS 10 ml) 10 ml PRN PRN IV IV PROTOCOL; Start 10/25/16 at 11:30 Atorvastatin Calcium (Lipitor) 20 mg HS PO Last administered on 10/29/16 20:28 ; Admin Dose 20 MG; Start 10/25/16 at 21:00 Pantoprazole (Protonix Iv) 40 mg BID IV Last administered on 10/30/16 09:49; Admin Dose 40 MG; Start 10/25/16 at 21:00 Miscellaneous Information 1 ea NOTE XX ; Start 10/26/16 at 09:30 Glucose (Glutose) 15 gm Q15M PRN PO DECREASED GLUCOSE; Start 10/26/16 at 09:30 Glucose (Glutose) 22.5 gm Q15M PRN PO DECREASED GLUCOSE; Start 10/26/16 at 09:30 Dextrose (D50w Syringe) 25 ml Q15M PRN IV DECREASED GLUCOSE; Start 10/26/16 at 09:30 Dextrose (D50w Syringe) 50 ml Q15M PRN IV DECREASED GLUCOSE; Start 10/26/16 at 09:30 Glucagon (Glucagen) 1 mg Q15M PRN IM DECREASED GLUCOSE; Start 10/26/16 at 09:30 Glucose (Glutose) 15 gm Q15M PRN BUCCAL DECREASED GLUCOSE; Start 10/26/16 at 09: 30 Insulin Glargine (Lantus) 12 unit DAILY@20 SC Last administered on 10/29/16 20: 43; Admin Dose 12 UNIT; Start 10/26/16 at 20:00 Citric Acid/ Sodium Citrate 30 ml 30 ml BID PO Last administered on 10/30/16 09:49; Admin Dose 30 ML; Start 10/26/16 at 10:30 Meropenem (Merrem 500 Mg/ 100 ml (Pmx)) 100 ml @ 200 mls/hr Q8 IVPB Last administered on 10/30/16 06:14; Admin Dose 200 MLS/HR; Start 10/26/16 at 14:00 Sodium Hypochlorite (Dakin'S (1/4 Strength)) 1 applic DAILY IRR Last administered on 10/30/16 09:50; Admin Dose 1 APPLIC; Start 10/27/16 at 09:00 Insulin Aspart NOVOLOG *MILD* ALGORI... Q6 SC Last administered on 10/29/16 17: 51; Admin Dose 1 UNIT; Start 10/29/16 at 12:00 Potassium Chloride/Dextrose 1,000 ml @ 125 mls/hr Q8H IV Last administered on 10/30/16 12:55; Admin Dose 125 MLS/HR; Start 10/29/16 at 11:30; Stop 10/31/16 at 11:29 Vancomycin HCl 250 ml @ 125 mls/hr Q24H IVPB Last administered on 10/30/16 04 :40; Admin Dose 125 MLS/HR; Start 10/30/16 at 04:00 Potassium Chloride/Dextrose (D5W + KCl 20 Meq) 1,000 ml @ 60 mls/hr [id number] IV ; Start 10/31/16 at 11:00; Stop 11/01/16 at 10:59 JORGE ROBLES Oct 30, 2016 13:29
--- NOTE | 2016-10-30 14:32 | PN ---
Date/Time of Note Date/Time of Note DATE: 10/30/16 TIME: 14:27 Assessment/Plan VTE Prophylaxis VTE Prophylaxis Intervention: SCD's Lines/Catheters IV [facility] PICC Line Central line still needed: Yes Urinary Cath still in place: Yes Reason Cath still needed: other (indicate) Assessment/Plan Chief Complaint/Hosp Course ASSESSMENT AND PLAN: 1. Sepsis, likely secondary to urinary tract infection off pressors Continue Zosyn and Aztreonam. Infectious disease doctor has been consulted. 2. Ventilator-dependent respiratory failure. Continue vent management by mechanical and auto body car checker. 3. Non-ST myocardial infarction with elevated troponin, likely demand ischemia secondary to anemia. Follow-up cardiology recommendations 4. Anemia, secondary to GI bleed positive guaiac. campground caretaker consulted , continue IV PPI. Status post 2 units of packed red blood cell. Follow hemoglobin hematocrit. No evidence of bleeding on upper endoscopy. Plan for colonoscopy on 10/30/2016 5. Severe dehydration, improving, status post 2 units of packed red blood cells and IV fluid. Follow renal panel. 6. Acute renal insufficiency. Secondary to #5 as above, nephrology has been consulted. 7. Diabetic mellitus . Place the patient on Lantus, continue insulin sliding scale. 8. History of essential hypertension. At this time, the patient is hypotensive secondary to septic shock. Hold all blood pressure medication. 9. Dyslipidemia, on statin. 10. GI bleed, gastroenterology been consulted continue IV PPI, plan for colonoscopy today 11. Sacral decubitus, continue wound care, general surgery has been consulted and will follow his recommendations 12. Hematuria, urology has been consulted, recommend to start continuous irrigation CONDITION: Guarded We will continue to monitor patient closely. Further recommendations, management, and treatment as per clinical course. Continue to monitor and telemetry floor Plan for colonoscopy Problems: Subjective 24 Hr Interval Summary Free Text/Dictation Patient started to have hematuria through his Ferreira yesterday evening No other acute changes Lethargic although arousable Off pressors Vent via trach Exam/Review of Systems Vital Signs Vitals Vital Signs Date Time Temp Pulse Resp B/P Pulse Ox O2 Delivery O2 Flow Rate FiO2 10/30/16 13:08 100 14 95 30 10/30/16 11:53 99.0 121/70 10/28/16 12:00 Mechanical Ventilator Intake and Output 4/910/29/16 10/30/16 15:00 23:00 07:00 Intake Total 1160 ml 1300 ml Output Total 800 ml 5850 ml Balance 360 ml -4550 ml Exam General: The patient is well-developed, Not in acute distress. HEENT: Atraumatic, normocephalic. The pupils are equal and round . Neck: Supple with full range of motion. Chest: Normal expansion of the thorax during inspiration Lungs: Clear to auscultation bilaterally Heart: Normal S1-S2, Regular rhythm and rate. Abdomen: Soft , nontender, nondistended , bowel sounds are present. Extremities: Bilateral lower extremity decubitus ulcer, +1 edema no cyanosis Neurologic: Patient is awake and arousable but not alert Genitourinary: Ferreira in place with evidence of hematuria Skin: Stage III sacral decubitus Results Result Diagram: 10/30/16 0655 10/30/16 0655 Results 24 hrs Laboratory Tests Test 10/29/16 17:18 10/29/16 19:05 10/29/16 20:31 10/30/16 00:24 Bedside Glucose 167 159 130 Vancomycin Level Trough 23.4 *H Test 10/30/16 05:29 10/30/16 06:55 10/30/16 12:55 Bedside Glucose 105 111 White Blood Count 15.6 #H Red Blood Count 2.96 L Hemoglobin 7.6 L Hematocrit 25.8 L Mean Corpuscular Volume 87.2 Mean Corpuscular Hemoglobin 25.7 L Mean Corpuscular Hemoglobin Concent 29.5 L Red Cell Distribution Width 17.2 H Platelet Count 133 L Mean Platelet Volume 12.2 H Neutrophils % 72.8 Lymphocytes % 19.1 Monocytes % 5.2 Eosinophils % 1.0 Basophils % 0.2 Nucleated Red Blood Cells % 0.0 Neutrophils # 11.4 H Lymphocytes # 3.0 H Monocytes # 0.8 Eosinophils # 0.2 Basophils # 0.0 Nucleated Red Blood Cells # 0.0 Prothrombin Time 16.8 H Prothrombin Time Ratio 1.3 INR International Normalized Ratio 1.36 Activated Partial Thromboplast Time 35.1 H Sodium Level 152 H Potassium Level 3.7 Chloride Level 124 H Carbon Dioxide Level 22 Anion Gap 10 # Blood Urea Nitrogen 38 #H Creatinine 0.72 Glucose Level 97 Calcium Level 7.8 L Medications Medications Current Medications Dextrose (D50w Syringe) 50 ml ONCE PRN IV POC BLOOD GLUCOSE <250 MG/DL; Start 10/25/16 at 11:00 Ondansetron HCl (Zofran Inj) 4 mg Q6H PRN IV NAUSEA AND/OR VOMITING Last administered on 10/27/16 13:51; Admin Dose 4 MG; Start 10/25/16 at 11:00 Nitroglycerin (Nitroglycerin (Sl Tab) 0.4 Mg) 1 tab Q5M PRN SL CHEST PAIN; Start 10/25/16 at 11:00 Acetaminophen (Tylenol Tab) 650 mg Q6H PRN PO PAIN LEVEL 1-3 OR FEVER; Start at 11:00 Acetaminophen (Tylenol Supp) 650 mg Q4H PRN [place] PAIN LEVEL 1-3 OR FEVER; Start 10/25/16 at 11:00 Docusate Sodium (Colace) 100 mg Q12H PRN PO CONSTIPATION; Start 10/25/16 at 11: 00 Bisacodyl (Dulcolax Supp) 10 mg DAILY PRN [place] CONSTIPATION; Start 10/25/16 at 11: 00 Amiodarone HCl (Cordarone) 400 mg BID GTB Last administered on 10/30/16 09:48 ; Admin Dose 400 MG; Start 10/25/16 at 21:00 Ascorbic Acid (Vitamin C) 500 mg DAILY GTB Last administered on 10/30/16 09:49 ; Admin Dose 500 MG; Start 10/26/16 at 09:00 Chlorhexidine Gluconate (Peridex) 15 ml Q12 MM Last administered on 10/30/16 09:49; Admin Dose 15 ML; Start 10/25/16 at 21:00 Collagenase (Santyl) 1 applic DAILY TOP Last administered on 10/30/16 09:49; Admin Dose 1 APPLIC; Start 10/26/16 at 09:00 Ferrous Sulfate (Feosol Liquid Cup) 330 mg DAILY GTB Last administered on 09:48; Admin Dose 330 MG; Start 10/26/16 at 09:00 Multivitamins Therapeutic (Theragran) 1 tab DAILY GTB Last administered on 10/30 09:49; Admin Dose 1 TAB; Start 10/26/16 at 09:00 Lactobacillus Acidoph/Bulgaricus (Floranex) 1 tab BID PO Last administered on 09:49; Admin Dose 1 TAB; Start 10/25/16 at 21:00 Fenofibrate (Tricor) 145 mg DAILY PO Last administered on 10/30/16 09:49; Admin Dose 145 MG; Start 10/26/16 at 09:00 IV Flush (NS 10 ml) 10 ml PRN PRN IV IV PROTOCOL; Start 10/25/16 at 11:30 Atorvastatin Calcium (Lipitor) 20 mg HS PO Last administered on 10/29/16 20:28 ; Admin Dose 20 MG; Start 10/25/16 at 21:00 Pantoprazole (Protonix Iv) 40 mg BID IV Last administered on 10/30/16 09:49; Admin Dose 40 MG; Start 10/25/16 at 21:00 Miscellaneous Information 1 ea NOTE XX ; Start 10/26/16 at 09:30 Glucose (Glutose) 15 gm Q15M PRN PO DECREASED GLUCOSE; Start 10/26/16 at 09:30 Glucose (Glutose) 22.5 gm Q15M PRN PO DECREASED GLUCOSE; Start 10/26/16 at 09:30 Dextrose (D50w Syringe) 25 ml Q15M PRN IV DECREASED GLUCOSE; Start 10/26/16 at 09:30 Dextrose (D50w Syringe) 50 ml Q15M PRN IV DECREASED GLUCOSE; Start 10/26/16 at 09:30 Glucagon (Glucagen) 1 mg Q15M PRN IM DECREASED GLUCOSE; Start 10/26/16 at 09:30 Glucose (Glutose) 15 gm Q15M PRN BUCCAL DECREASED GLUCOSE; Start 10/26/16 at 09: 30 Insulin Glargine (Lantus) 12 unit DAILY@20 SC Last administered on 10/29/16 20: 43; Admin Dose 12 UNIT; Start 10/26/16 at 20:00 Citric Acid/ Sodium Citrate 30 ml 30 ml BID PO Last administered on 10/30/16 09:49; Admin Dose 30 ML; Start 10/26/16 at 10:30 Meropenem (Merrem 500 Mg/ 100 ml (Pmx)) 100 ml @ 200 mls/hr Q8 IVPB Last administered on 10/30/16 06:14; Admin Dose 200 MLS/HR; Start 10/26/16 at 14:00 Sodium Hypochlorite (Dakin'S (1/4 Strength)) 1 applic DAILY IRR Last administered on 10/30/16 09:50; Admin Dose 1 APPLIC; Start 10/27/16 at 09:00 Insulin Aspart NOVOLOG *MILD* ALGORI... Q6 SC Last administered on 10/29/16 17: 51; Admin Dose 1 UNIT; Start 10/29/16 at 12:00 Potassium Chloride/Dextrose 1,000 ml @ 125 mls/hr Q8H IV Last administered on 10/30/16 12:55; Admin Dose 125 MLS/HR; Start 10/29/16 at 11:30; Stop 10/31/16 at 11:29 Vancomycin HCl 250 ml @ 125 mls/hr Q24H IVPB Last administered on 10/30/16 04 :40; Admin Dose 125 MLS/HR; Start 10/30/16 at 04:00 Potassium Chloride/Dextrose (D5W + KCl 20 Meq) 1,000 ml @ 60 mls/hr [id number] IV ; Start 10/31/16 at 11:00; Stop 11/01/16 at 10:59 DILIP ARELLANO MD Oct 30, 2016 14:32
--- NOTE | 2016-10-30 17:15 | PN ---
DATE: 10/30/2016 SUBJECTIVE: No events overnight. The patient is nonverbal, lying comfortably in bed. He is afebri le, still has hematuria. WBC today 15.6, H and H 7.6 and 25.8, platelets 133, neutrophils 72.8, BUN 38, creatinine 0.7. MICROBIOLOGY: Blood culture growing Proteus and coagulase-negative staph species. Urine culture gr owing E. coli, Morganella morganii. Nares swab came back positive for MRSA. Sacral wound culture g rowing methicillin-resistant Staphylococcus and Acinetobacter baumannii, multi-drug resistant. ANTIMICROBIALS: The patient is on IV vancomycin and meropenem. INDWELLINGS: Trach, PEG, Ferreira, PICC line placed on 10/25/2016. PHYSICAL EXAMINATION: GENERAL: This is a fragile, chronically ill-appearing, elderly man who is lying comfortably in bed. HEENT: Head atraumatic, normocephalic. Sclerae anicteric. Buccal mucosa dry. NECK: Supple. Tracheostomy present. CHEST: Rise symmetrical. Breath sounds diminished to bases. HEART: S1, S2. ABDOMEN: Soft, bowel tones present. EXTREMITIES: Without cyanosis. Bilateral trace edema. ASSESSMENT: 1. Sepsis, status post shock. 2. Polymicrobial bacteremia. 3. Current urinary tract infection. 4. Sacral decubitus. 5. Methicillin-resistant Staphylococcus aureus nares colonization. 6. Recurrent hematuria. 7. Acute on chronic anemia. PLAN: We are going to change antibiotics to Zyvox and colistin to cover multi-drug resistant organi sms and to preserve renal function. Continue Bactroban to nares. Consider urology evaluation for r ecurrent hematuria. Continue local wound care as per surgery. Dictated By: ADITYA CALLAHAN LIABILITY CLAIMS ADJUSTER for VEGA BRUNER MD NI/NTS Conf#: [id number] DID#: [id number]
--- NOTE | 2016-10-30 18:07 | PN ---
Date/Time of Note Date/Time of Note DATE: 10/30/16 TIME: 17:59 Assessment/Plan VTE Prophylaxis VTE Prophylaxis Intervention: SCD's Lines/Catheters IV Catheter Type (from [facility]): PICC Line Central line still needed: Yes Urinary Cath still in place: Yes Reason Cath still needed: urinary retention Assessment/Plan Chief Complaint/Hosp Course 76 year old male with with history of cva,dm, , chronic respiratory failure, trach to vent,s/p peg,hypertension,coronary artery disease,anemia,and multiple decubitus ulcer was brought to er because of hypotension and altered level of consciousness.He was found to be hypotensive at the [facility] and subsequently transferred.upon examination at the er,he was hypotensive and altered level of consciousness Laboratory examination revealed hemoglobin 6.4, wbc 11.8,,bun 187,creatinine 2.4 and lactic acid 0.9 a total of 3 units of blood was tranfused.Presently ,no active bleeding,no nausea,no vomiting,,no blood per G tube,nor hematochezia.Patient presently on pressors with latest hemoglobin of 7.6 Problems: Assessment/Plan Assessment * Sepsis resolving * Anemia GI bleed lower vs tumors vs others 10/27/2016 EGD Gastrostomy tube in the body of the stomach. Otherwise, normal esophagogastroduodenoscopy with no bleeding site identified. * Ventilator dependent respiratory failure * Decubitus ulcer sacral * Diabetes mellitus * History of Hypertension * Dyslipidemia Plan * * monitor H and h Q6 and transfuse per protocol * Colonoscopy in 10/31/2016 family aware of the planned procedures,risks benefits explained to relatives ,agreed with the planned procedure * continue present management * continue ppi Subjective 24 Hr Interval Summary Free Text/Dictation * course reviewed with rn * patient seen and examined * patient colonoscopy will be rescheduled tomorrow because of poor bowel prep * EGD 10/27/2016 * Gastrostomy tube in the body of the stomach. * Otherwise, normal esophagogastroduodenoscopy with no bleeding site identified. Exam/Review of Systems Vital Signs Vitals Vital Signs Date Time Temp Pulse Resp B/P Pulse Ox O2 Delivery O2 Flow Rate FiO2 10/30/16 17:09 84 15 98 30 10/30/16 15:58 98.2 143/62 10/28/16 12:00 Mechanical Ventilator Intake and Output 410/29/16 10/30/16 15:00 23:00 07:00 Intake Total 1160 ml 1300 ml Output Total 800 ml 5850 ml Balance 360 ml -4550 ml Exam Constitutional: frail Respiratory: diminished breath sounds, other (trach to vent) Cardiovascular: nl pulses, regular rate and rhythm Gastrointestinal: other (g tube in placed), rebound or guarding, soft Results Result Diagram: 10/30/16 0655 10/30/16 0655 Results 24 hrs Laboratory Tests Test 10/29/16 19:05 10/29/16 20:31 10/30/16 00:24 10/30/16 05:29 Vancomycin Level Trough 23.4 *H Bedside Glucose 159 130 105 Test 10/30/16 06:55 10/30/16 12:55 10/30/16 17:17 White Blood Count 15.6 #H Red Blood Count 2.96 L Hemoglobin 7.6 L Hematocrit 25.8 L Mean Corpuscular Volume 87.2 Mean Corpuscular Hemoglobin 25.7 L Mean Corpuscular Hemoglobin Concent 29.5 L Red Cell Distribution Width 17.2 H Platelet Count 133 L Mean Platelet Volume 12.2 H Neutrophils % 72.8 Lymphocytes % 19.1 Monocytes % 5.2 Eosinophils % 1.0 Basophils % 0.2 Nucleated Red Blood Cells % 0.0 Neutrophils # 11.4 H Lymphocytes # 3.0 H Monocytes # 0.8 Eosinophils # 0.2 Basophils # 0.0 Nucleated Red Blood Cells # 0.0 Prothrombin Time 16.8 H Prothrombin Time Ratio 1.3 INR International Normalized Ratio 1.36 Activated Partial Thromboplast Time 35.1 H Sodium Level 152 H Potassium Level 3.7 Chloride Level 124 H Carbon Dioxide Level 22 Anion Gap 10 # Blood Urea Nitrogen 38 #H Creatinine 0.72 Glucose Level 97 Calcium Level 7.8 L Bedside Glucose 111 126 Medications Medications Current Medications Dextrose (D50w Syringe) 50 ml ONCE PRN IV POC BLOOD GLUCOSE <250 MG/DL; Start 10/25/16 at 11:00 Ondansetron HCl (Zofran Inj) 4 mg Q6H PRN IV NAUSEA AND/OR VOMITING Last administered on 10/27/16t 13:51; Admin Dose 4 MG; Start 10/25/16 at 11:00 Nitroglycerin (Nitroglycerin (Sl Tab) 0.4 Mg) 1 tab Q5M PRN SL CHEST PAIN; Start 10/25/16 at 11:00 Acetaminophen (Tylenol Tab) 650 mg Q6H PRN PO PAIN LEVEL 1-3 OR FEVER; Start at 11:00 Acetaminophen (Tylenol Supp) 650 mg Q4H PRN MO PAIN LEVEL 1-3 OR FEVER; Start 10/25/16 at 11:00 Docusate Sodium (Colace) 100 mg Q12H PRN PO CONSTIPATION; Start 10/25/16 at 11: 00 Bisacodyl (Dulcolax Supp) 10 mg DAILY PRN MO CONSTIPATION; Start 10/25/16 at 11: 00 Amiodarone HCl (Cordarone) 400 mg BID GTB Last administered on 10/30/16 09:48 ; Admin Dose 400 MG; Start 10/25/16 at 21:00 Ascorbic Acid (Vitamin C) 500 mg DAILY GTB Last administered on 10/30/16 09:49 ; Admin Dose 500 MG; Start 10/26/16 at 09:00 Chlorhexidine Gluconate (Peridex) 15 ml Q12 MM Last administered on 10/30/16 09:49; Admin Dose 15 ML; Start 10/25/16 at 21:00 Collagenase (Santyl) 1 applic DAILY TOP Last administered on 10/30/16 09:49; Admin Dose 1 APPLIC; Start 10/26/16 at 09:00 Ferrous Sulfate (Feosol Liquid Cup) 330 mg DAILY GTB Last administered on 09:48; Admin Dose 330 MG; Start 10/26/16 at 09:00 Multivitamins Therapeutic (Theragran) 1 tab DAILY GTB Last administered on 10/30 09:49; Admin Dose 1 TAB; Start 10/26/16 at 09:00 Lactobacillus Acidoph/Bulgaricus (Floranex) 1 tab BID PO Last administered on 09:49; Admin Dose 1 TAB; Start 10/25/16 at 21:00 Fenofibrate (Tricor) 145 mg DAILY PO Last administered on 10/30/16 09:49; Admin Dose 145 MG; Start 10/26/16 at 09:00 IV Flush (NS 10 ml) 10 ml PRN PRN IV IV PROTOCOL; Start 10/25/16 at 11:30 Atorvastatin Calcium (Lipitor) 20 mg HS PO Last administered on 10/29/16 20:28 ; Admin Dose 20 MG; Start 10/25/16 at 21:00 Pantoprazole (Protonix Iv) 40 mg BID IV Last administered on 10/30/16 09:49; Admin Dose 40 MG; Start 10/25/16 at 21:00 Miscellaneous Information 1 ea NOTE XX ; Start 10/26/16 at 09:30 Glucose (Glutose) 15 gm Q15M PRN PO DECREASED GLUCOSE; Start 10/26/16 at 09:30 Glucose (Glutose) 22.5 gm Q15M PRN PO DECREASED GLUCOSE; Start 10/26/16 at 09:30 Dextrose (D50w Syringe) 25 ml Q15M PRN IV DECREASED GLUCOSE; Start 10/26/16 at 09:30 Dextrose (D50w Syringe) 50 ml Q15M PRN IV DECREASED GLUCOSE; Start 10/26/16 at 09:30 Glucagon (Glucagen) 1 mg Q15M PRN IM DECREASED GLUCOSE; Start 10/26/16 at 09:30 Glucose (Glutose) 15 gm Q15M PRN BUCCAL DECREASED GLUCOSE; Start 10/26/16 at 09: 30 Insulin Glargine (Lantus) 12 unit DAILY@20 SC Last administered on 10/29/16 20: 43; Admin Dose 12 UNIT; Start 10/26/16 at 20:00 Citric Acid/ Sodium Citrate (Bicitra) 30 ml BID PO Last administered on 09:49; Admin Dose 30 ML; Start 10/26/16 at 10:30 Sodium Hypochlorite (Dakin'S (1/4 Strength)) 1 applic DAILY IRR Last administered on 10/30/16 09:50; Admin Dose 1 APPLIC; Start 10/27/16 at 09:00 Insulin Aspart NOVOLOG *MILD* ALGORI... Q6 SC Last administered on 10/29/16 17: 51; Admin Dose 1 UNIT; Start 10/29/16 at 12:00 Potassium Chloride/Dextrose 1,000 ml @ 125 mls/hr Q8H IV Last administered on 10/30/16 14:26; Admin Dose 125 MLS/HR; Start 10/29/16 at 11:30; Stop 10/31/16 at 11:29 Potassium Chloride/Dextrose (D5W + KCl 20 Meq) 1,000 ml @ 60 mls/hr [id number] IV ; Start 10/31/16 at 11:00; Stop 11/01/16 at 10:59 Linezolid 600 mg 600 mg BID PO ; Start 10/30/16 at 21:00 Colistimethate Sodium/Sodium Chloride (Coly-Mycin/NS) 100 ml @ 200 mls/hr Q12 IVPB ; Start 10/30/16 at 21:00 RAYMON BETANCOURT MD Oct 30, 2016 18:07
--- NOTE | 2016-10-30 18:09 | PN ---
Date/Time of Note Date/Time of Note DATE: 10/30/16 TIME: 18:08 Assessment/Plan Lines/Catheters IV Catheter Type (from [facility]): PICC Line Ferreira in Place (from [facility]): Yes Assessment/Plan Chief Complaint/Hosp Course 1. Sacral deep tissue injury. -eventual excisional debridement -offloading -optimize nutrition per feeding tube -vitamin C administration -local care. 2. Lower extremity decubitus ulcerations as above. 3. Shock (sepsis plus or minus hypovolemia, plus or minus cardiac). Improved 4. Continue judicious fluid management, cardiac optimization and treatment of underlying infections. 5. Urinary tract infection. Continue antibiotics. 6. Significant anemia of unknown etiology. EGD performed. No sources identified. Apparently however, patient needs a colonoscopy. 7. Diabetes. Continue nutrition and medication control. 8. Elevated troponin with non-ST elevation myocardial infarction. Continue cardiac optimization. 9. History of cerebrovascular accident. Continue medical optimization. 10. Peptic ulcer disease. Continue proton pump inhibitors. 11. Coronary artery disease. Continue cardiac optimization. 12. Acute renal insufficiency secondary to above. Continue judicious fluid management. 13. Ventilator-dependent respiratory failure. Continue pulmonary toilet. 14. Dysphagia and tube feeds s/p PEG Thank you, Problems: Subjective 24 Hr Interval Summary No f/c. No cough. No sz/rash. No bloating. No vomiting. Leukocytosis worsening. Bowel function. Exam/Review of Systems Vital Signs Vitals Vital Signs Date Time Temp Pulse Resp B/P Pulse Ox O2 Delivery O2 Flow Rate FiO2 10/30/16 17:09 84 15 98 30 10/30/16 15:58 98.2 143/62 10/28/16 12:00 Mechanical Ventilator Intake and Output 10/29/16 10/29/16 10/30/16 15:00 23:00 07:00 Intake Total 1160 ml 1300 ml Output Total 800 ml 5850 ml Balance 360 ml -4550 ml Exam Free Text/Dictation GENERAL: Awake but noncommunicative. HEENT: The pupils are equal and reactive. No scleral icterus. Mucous membranes are moist. NECK: Trach in place. No JVD. PULMONARY: Decreased breath sounds. No wheezing. CARDIAC: S1, S2 present. ABDOMEN: Soft. PEG in place. EXTREMITIES: Minimal edema. VASCULAR: Capillary refill is 3 seconds. NEUROLOGIC: Awake, but does not follow commands. SKIN: Deep tissue injury of the sacrococcyx. Bilateral lower extremity skin injuries. Results Result Diagram: 10/30/16 0655 10/30/16 0655 MINNIE SHIELDS MD Oct 30, 2016 18:09
[2016-10-30] MEDS: ATORVASTATIN 20 MG TAB PO SCH (20:59)
[2016-10-30] MEDS: ZYVOX 600 MG TAB PO SCH (20:59)
--- NOTE | 2016-10-30 21:00 | CONS ---
DATE OF ADMISSION: 10/25/2016 DATE OF CONSULTATION: 10/30/2016 REQUESTING PHYSICIAN: Dr. Quintana Dear Fawad, Thank you for asking me to help again in the care of Mr. Blackwood. He is a well-known patient to [facility]. I have seen him multiple times in the hospital here for similar problem where he does have hemat uria, and last time in August of this year, I did a cystoscopy on him and electrocoagulated bleede rs from the right side of the bladder. Then the urine became clear, and then the patient was discha rged. Presently, the patient was admitted to the hospital with sepsis, most likely secondary to uri nary tract infection. At the time of his admission, he was placed on vasopressors, and right now he is off that. He is known to have respiratory failure and is ventilator-dependent respiratory failu re, and he has had a non-ST myocardial infarction, dehydration, renal insufficiency, diabetes mellit us, hypertension, dyslipidemia, history of gross hematuria in the past requiring bladder irrigation and hand irrigation and even blood transfusions and also sacral decubitus. The patient himself is n ot able of complaining of any pain or discomfort. MEDICATION LIST: Reviewed, and he is on: 1. Potassium chloride. 2. Linezolid. 3. Colistimethate. 4. Insulin. 5. Citric acid. 6. Sodium citrate (Bicitra). 7. Ascorbic acid. 8. Ferrous sulfate. 9. Multivitamin. 10. Fenofibrate. 11. Cordarone. 12. Atorvastatin. 13. Pantoprazole. 14. Nitroglycerin p.r.n. 15. Tylenol p.r.n. 16. Colace 100 mg twice a day. 17. Dulcolax suppository p.r.n. 18. Albuterol. PHYSICAL EXAMINATION: GENERAL: Again reveals an elderly male. He is 76 years old. He weighs about 73 kg. He is 66 inch es tall. VITAL SIGNS: Temperature is 98.2, respirations 18, ____ blood pressure 143/62. ABDOMEN: A little distended but the bladder is not distended. GENITOURINARY: The patient does have penoscrotal edema, and he does have diarrhea, and the Ferreira ca theter that he has appears to be the Ferreira catheter that we probably used when he was here in and doesn't seem that it has been changed. The patient also had diarrhea, and that was contamina ting the Ferreira catheter as well. EXTREMITIES: The patient does have extremity contractures. LABORATORY DATA: His CBC today shows a white count of 15.6, hemoglobin 7.6, hematocrit 25.8. BUN i s 38, creatinine 0.72, sodium 152, potassium 3.7, chloride 124 and CO2 22. The Ferreira catheter is draining bloody urine, and then sometimes the urine in the tubing appears to b e somehow clear. The urine culture showing E. coli and Morganella morganii. Blood cultures are pos itive for proteus. IMPRESSION: Gross hematuria which is recurrent. The patient has urinary tract infection. At the present I will keep the Ferreira catheter in, and I'll see him again in the morning, see how the urine is clearing or not, and then I may have to change the catheter, but the patient is going to h ave what appears colonoscopy tomorrow, so I will wait until that is done and then I will change the Ferreira catheter, and if we have to hand irrigate or continuous bladder irrigation, will do that. Dictated By: TANA DUBOIS/GENOVEVA Conf#: [id number] DID#: [id number]
[2016-10-30] MEDS: INSULIN GLARGINE [LANtus] 3 ML PEN SC SCH (21:46)
[2016-10-30] MEDS: COLISTIMETHATE 75 MG in SOD CHLORIDE 0.9% 100 ML IVPB SCH (21:59)
--- NOTE | 2016-10-30 23:01 | CONS ---
DATE OF ADMISSION: 10/25/2016 DATE OF CONSULTATION: This unfortunate [place] man has been on chronic ventilator support and is confined to bed. This renal function has improved. His BUN is minimally elevated, although sodium remains high despite changing the IV fluids. At this time, the patient's IV fluid rate has increased and the patient's BUN & SNa should improve gradually with this therapy. I would continue to monitor the patient's clinical course closely. Dictated By: RANDALL ROMO/NTS Conf#: [id number] DID#: [id number] CC: DILIP ARELLANO MD;*EndCC* MTDD
[2016-10-31] VITALS (25 sets, daily range): BP systolic 97–127; BP diastolic 46–68; PULSE 72–97; RESP 12–23
[2016-10-31] MEDS: D5W + KCL 20 MEQ 1,000 ML IV SCH ×2 (04:36→11:00)
[2016-10-31] MEDS: INSULIN ASPART [NOVOLOG] 3 ML PEN SC SCH ×4 (06:00→18:00)
[2016-10-31] MEDS ORDERED: EPINEPHrine 100 MCG/10 ML SYG IV ONE (07:00)
--- NOTE | 2016-10-31 07:23 | PN ---
Date/Time of Note Date/Time of Note DATE: 10/31/16 TIME: 07:22 Assessment/Plan VTE Prophylaxis VTE Prophylaxis Intervention: SCD's Lines/Catheters IV Catheter Type (from [facility]): PICC Line Central line still needed: No Urinary Cath still in place: Yes Reason Cath still needed: urinary retention Assessment/Plan Assessment/Plan Septic shock Acute blood loss anemia Elevated troponin likely secondary to above Respiratory failure Paroxysmal atrial fibrillation, currently sinus rhythm Paroxysmal atrial tachycardia Preserved ejection fraction Acute kidney injury -Blood pressure trend improved, IV fluids as per nephrology. Continue to hold any antihypertensives at the current time. No anticoagulation given history of recurrent hematuria and currently active hematuria. Subjective 24 Hr Interval Summary Free Text/Dictation The patient with no change Exam/Review of Systems Vital Signs Vitals Vital Signs Date Time Temp Pulse Resp B/P Pulse Ox O2 Delivery O2 Flow Rate FiO2 10/31/16 05:50 85 14 97 30 10/31/16 04:00 98.3 127/68 10/28/16 12:00 Mechanical Ventilator Intake and Output 10/30/16 10/30/16 10/31/16 15:00 23:00 07:00 Output Total 450 ml Balance -450 ml Results Result Diagram: 10/30/16 0655 10/30/16 0655 Results 24 hrs Laboratory Tests Test 10/30/16 12:55 10/30/16 17:17 10/30/16 21:42 10/31/16 01:20 Bedside Glucose 111 126 158 129 Medications Medications Current Medications Dextrose (D50w Syringe) 50 ml ONCE PRN IV POC BLOOD GLUCOSE <250 MG/DL; Start 10/25/16 at 11:00 Ondansetron HCl (Zofran Inj) 4 mg Q6H PRN IV NAUSEA AND/OR VOMITING Last administered on 10/27/16t 13:51; Admin Dose 4 MG; Start 10/25/16 at 11:00 Nitroglycerin (Nitroglycerin (Sl Tab) 0.4 Mg) 1 tab Q5M PRN SL CHEST PAIN; Start 10/25/16 at 11:00 Acetaminophen (Tylenol Tab) 650 mg Q6H PRN PO PAIN LEVEL 1-3 OR FEVER; Start at 11:00 Acetaminophen (Tylenol Supp) 650 mg Q4H PRN GA PAIN LEVEL 1-3 OR FEVER; Start 10/25/16 at 11:00 Docusate Sodium (Colace) 100 mg Q12H PRN PO CONSTIPATION; Start 10/25/16 at 11: 00 Bisacodyl (Dulcolax Supp) 10 mg DAILY PRN GA CONSTIPATION; Start 10/25/16 at 11: 00 Amiodarone HCl (Cordarone) 400 mg BID GTB Last administered on 10/30/16 22:04 ; Admin Dose 400 MG; Start 10/25/16 at 21:00 Ascorbic Acid (Vitamin C) 500 mg DAILY GTB Last administered on 10/30/16 09:49 ; Admin Dose 500 MG; Start 10/26/16 at 09:00 Chlorhexidine Gluconate (Peridex) 15 ml Q12 MM Last administered on 10/30/16 20:58; Admin Dose 15 ML; Start 10/25/16 at 21:00 Collagenase (Santyl) 1 applic DAILY TOP Last administered on 10/30/16 09:49; Admin Dose 1 APPLIC; Start 10/26/16 at 09:00 Ferrous Sulfate (Feosol Liquid Cup) 330 mg DAILY GTB Last administered on 09:48; Admin Dose 330 MG; Start 10/26/16 at 09:00 Multivitamins Therapeutic (Theragran) 1 tab DAILY GTB Last administered on 10/30 09:49; Admin Dose 1 TAB; Start 10/26/16 at 09:00 Lactobacillus Acidoph/Bulgaricus (Floranex) 1 tab BID PO Last administered on 09:49; Admin Dose 1 TAB; Start 10/25/16 at 21:00 Fenofibrate (Tricor) 145 mg DAILY PO Last administered on 10/30/16 09:49; Admin Dose 145 MG; Start 10/26/16 at 09:00 IV Flush (NS 10 ml) 10 ml PRN PRN IV IV PROTOCOL; Start 10/25/16 at 11:30 Atorvastatin Calcium (Lipitor) 20 mg HS PO Last administered on 10/30/16 20:59 ; Admin Dose 20 MG; Start 10/25/16 at 21:00 Pantoprazole (Protonix Iv) 40 mg BID IV Last administered on 10/30/16 20:58; Admin Dose 40 MG; Start 10/25/16 at 21:00 Miscellaneous Information 1 ea NOTE XX ; Start 10/26/16 at 09:30 Glucose (Glutose) 15 gm Q15M PRN PO DECREASED GLUCOSE; Start 10/26/16 at 09:30 Glucose (Glutose) 22.5 gm Q15M PRN PO DECREASED GLUCOSE; Start 10/26/16 at 09:30 Dextrose (D50w Syringe) 25 ml Q15M PRN IV DECREASED GLUCOSE; Start 10/26/16 at 09:30 Dextrose (D50w Syringe) 50 ml Q15M PRN IV DECREASED GLUCOSE; Start 10/26/16 at 09:30 Glucagon (Glucagen) 1 mg Q15M PRN IM DECREASED GLUCOSE; Start 10/26/16 at 09:30 Glucose (Glutose) 15 gm Q15M PRN BUCCAL DECREASED GLUCOSE; Start 10/26/16 at 09: 30 Insulin Glargine (Lantus) 12 unit DAILY@20 SC Last administered on 10/30/16 21 :46; Admin Dose 12 UNIT; Start 10/26/16 at 20:00 Citric Acid/ Sodium Citrate (Bicitra) 30 ml BID PO Last administered on 20:58; Admin Dose 30 ML; Start 10/26/16 at 10:30 Sodium Hypochlorite (Dakin'S (1/4 Strength)) 1 applic DAILY IRR Last administered on 10/30/16 09:50; Admin Dose 1 APPLIC; Start 10/27/16 at 09:00 Insulin Aspart NOVOLOG *MILD* ALGORI... Q6 SC Last administered on 10/29/16 17: 51; Admin Dose 1 UNIT; Start 10/29/16 at 12:00 Potassium Chloride/Dextrose 1,000 ml @ 125 mls/hr Q8H IV Last administered on 10/31/16 04:36; Admin Dose 125 MLS/HR; Start 10/29/16 at 11:30; Stop 10/31/16 at 11:29 Potassium Chloride/Dextrose (D5W + KCl 20 Meq) 1,000 ml @ 60 mls/hr [id number] IV ; Start 10/31/16 at 11:00; Stop 11/01/16 at 10:59 Linezolid 600 mg 600 mg BID PO Last administered on 10/30/16 20:59; Admin Dose 600 MG; Start 10/30/16 at 21:00 Colistimethate Sodium/Sodium Chloride (Coly-Mycin/NS) 100 ml @ 200 mls/hr Q12 IVPB Last administered on 10/30/16t 21:59; Admin Dose 200 MLS/HR; Start at 21:00 JORGE CAZARES MD Oct 31, 2016 07:23
[2016-10-31] MEDS: LACTOBACILLUS CHEW TAB PO SCH ×2 (09:00→20:23)
[2016-10-31] MEDS: SODIUM HYPOCHLORITE 0.125% 473 ML BTL IRR SCH (09:00)
--- NOTE | 2016-10-31 09:23 | PN ---
DATE: 10/31/2016 SUBJECTIVE: The patient himself is on a respirator and does not express any complaints. The patien t does have gross hematuria. OBJECTIVE VITAL SIGNS: His temperature is 97.6, pulse 72, respiration 18, blood pressure 119/58. ABDOMEN: The Ferreira catheter is draining bloody urine. In the tubing one notices that sometimes the urine is clear. It looks an infected urine, and indeed the patient does have a urinary tract infection with E. coli and Morganella morganii. The patient is already on linezolid and colistin. For now I would leave the Ferreira catheter in and I would repla ce it later on. He still has a lot of diarrhea. We just have wait and hopefully with the antibioti c treatment his hematuria will subside. Dictated By: TANA DUBOIS/GENOVEVA Conf#: [id number] DID#: [id number]
[2016-10-31] MEDS: FERROUS SULFATE 60 MG/ML 5ML CUP GTB SCH (09:35)
[2016-10-31] MEDS: MULTIVITAMINS THERAPEUTIC TAB GTB SCH (09:35)
[2016-10-31] MEDS: CHLORHEXIDINE GLUCONATE 15 ML UD CUP MM SCH ×2 (09:35→20:26)
[2016-10-31] MEDS: ASCORBIC ACID 500 MG TAB GTB SCH (09:36)
[2016-10-31] MEDS: FENOFIBRATE 145 MG TAB PO SCH (09:36)
[2016-10-31] MEDS: ZYVOX 600 MG TAB PO SCH ×2 (09:36→20:24)
[2016-10-31] MEDS: AMIODARONE 200 MG TAB GTB SCH ×2 (09:36→20:25)
[2016-10-31] MEDS: CITRIC ACID/NA CITRATE 30 ML CUP PO SCH ×2 (09:37→22:24)
[2016-10-31] MEDS: PANTOPRAZOLE 40 MG INJ IV SCH ×2 (09:37→20:26)
[2016-10-31] MEDS: COLLAGENASE 30 GM TUBE TOP SCH (09:37)
[2016-10-31] MEDS: COLISTIMETHATE 75 MG in SOD CHLORIDE 0.9% 100 ML IVPB SCH ×2 (09:43→20:26)
--- NOTE | 2016-10-31 10:42 | CONS ---
Date/Time of Note Date/Time of Note DATE: 10/31/16 TIME: 10:41 Assessment/Plan Assessment/Plan Additional Assessment/Plan 76 yo Male with 1) S/p Septic Shock 2nd to UTI 2) Severe Anemia 3) THOE on likely CKD, Pre-Renal Azotemia, Improving 4) Hyperkalemia- Resolved 5) Metabolic Acidosis- Improved 6) VDRF, S/p Tracheostomy 7) Dysphagia, S/p PEG Renal function continues to improve with current treatment Will DC Bicitra at this time. Will Cont to monitor UO, Electrolytes and renal function Consultation Date/Type/Reason Admit Date/Time Oct 25, 2016 at 10:54 Initial Consult Date 10/25/16 Type of Consultation: Renal Referring Provider: DILIP ARELLANO MD 24 HR Interval Summary Free Text/Dictation No overnight Events Exam/Review of Systems Vital Signs Vitals Vital Signs Date Time Temp Pulse Resp B/P Pulse Ox O2 Delivery O2 Flow Rate FiO2 10/31/16 09:23 78 14 98 30 10/31/16 08:26 97.6 119/58 10/28/16 12:00 Mechanical Ventilator Intake and Output 10/30/16 10/30/16 10/31/16 15:00 23:00 07:00 Intake Total 5080 ml Output Total 2250 ml Balance 2830 ml Exam Constitutional: distress ENMT: mucosa pink and moist, other (Trach) Respiratory: crackles/rales Cardiovascular: edema Neurological: lethargic Results Result Diagram: 10/30/16 0655 10/30/16 0655 Results 24 hrs Laboratory Tests Test 10/30/16 12:55 10/30/16 17:17 10/30/16 21:42 10/31/16 01:20 Bedside Glucose 111 126 158 129 Test 10/31/16 07:16 10/31/16 08:08 Bedside Glucose 96 96 Medications Medications Current Medications Dextrose (D50w Syringe) 50 ml ONCE PRN IV POC BLOOD GLUCOSE <250 MG/DL; Start 10/25/16 at 11:00 Ondansetron HCl (Zofran Inj) 4 mg Q6H PRN IV NAUSEA AND/OR VOMITING Last administered on 10/27/16t 13:51; Admin Dose 4 MG; Start 10/25/16 at 11:00 Nitroglycerin (Nitroglycerin (Sl Tab) 0.4 Mg) 1 tab Q5M PRN SL CHEST PAIN; Start 10/25/16 at 11:00 Acetaminophen (Tylenol Tab) 650 mg Q6H PRN PO PAIN LEVEL 1-3 OR FEVER; Start at 11:00 Acetaminophen (Tylenol Supp) 650 mg Q4H PRN [place] PAIN LEVEL 1-3 OR FEVER; Start 10/25/16 at 11:00 Docusate Sodium (Colace) 100 mg Q12H PRN PO CONSTIPATION; Start 10/25/16 at 11: 00 Bisacodyl (Dulcolax Supp) 10 mg DAILY PRN [place] CONSTIPATION; Start 10/25/16 at 11: 00 Amiodarone HCl (Cordarone) 400 mg BID GTB Last administered on 10/31/16 09:36 ; Admin Dose 400 MG; Start 10/25/16 at 21:00 Ascorbic Acid (Vitamin C) 500 mg DAILY GTB Last administered on 10/31/16 09:36 ; Admin Dose 500 MG; Start 10/26/16 at 09:00 Chlorhexidine Gluconate (Peridex) 15 ml Q12 MM Last administered on 10/31/16 09:35; Admin Dose 15 ML; Start 10/25/16 at 21:00 Collagenase (Santyl) 1 applic DAILY TOP Last administered on 10/31/16 09:37; Admin Dose 1 APPLIC; Start 10/26/16 at 09:00 Ferrous Sulfate (Feosol Liquid Cup) 330 mg DAILY GTB Last administered on 09:35; Admin Dose 330 MG; Start 10/26/16 at 09:00 Multivitamins Therapeutic (Theragran) 1 tab DAILY GTB Last administered on 10/31 09:35; Admin Dose 1 TAB; Start 10/26/16 at 09:00 Lactobacillus Acidoph/Bulgaricus (Floranex) 1 tab BID PO Last administered on 09:49; Admin Dose 1 TAB; Start 10/25/16 at 21:00 Fenofibrate (Tricor) 145 mg DAILY PO Last administered on 10/31/16 09:36; Admin Dose 145 MG; Start 10/26/16 at 09:00 IV Flush (NS 10 ml) 10 ml PRN PRN IV IV PROTOCOL; Start 10/25/16 at 11:30 Atorvastatin Calcium (Lipitor) 20 mg HS PO Last administered on 10/30/16 20:59 ; Admin Dose 20 MG; Start 10/25/16 at 21:00 Pantoprazole (Protonix Iv) 40 mg BID IV Last administered on 10/31/16 09:37; Admin Dose 40 MG; Start 10/25/16 at 21:00 Miscellaneous Information 1 ea NOTE XX ; Start 10/26/16 at 09:30 Glucose (Glutose) 15 gm Q15M PRN PO DECREASED GLUCOSE; Start 10/26/16 at 09:30 Glucose (Glutose) 22.5 gm Q15M PRN PO DECREASED GLUCOSE; Start 10/26/16 at 09:30 Dextrose (D50w Syringe) 25 ml Q15M PRN IV DECREASED GLUCOSE; Start 10/26/16 at 09:30 Dextrose (D50w Syringe) 50 ml Q15M PRN IV DECREASED GLUCOSE; Start 10/26/16 at 09:30 Glucagon (Glucagen) 1 mg Q15M PRN IM DECREASED GLUCOSE; Start 10/26/16 at 09:30 Glucose (Glutose) 15 gm Q15M PRN BUCCAL DECREASED GLUCOSE; Start 10/26/16 at 09: 30 Insulin Glargine (Lantus) 12 unit DAILY@20 SC Last administered on 10/30/16 21 :46; Admin Dose 12 UNIT; Start 10/26/16 at 20:00 Citric Acid/ Sodium Citrate (Bicitra) 30 ml BID PO Last administered on 09:37; Admin Dose 30 ML; Start 10/26/16 at 10:30 Sodium Hypochlorite (Dakin'S (1/4 Strength)) 1 applic DAILY IRR Last administered on 10/30/16 09:50; Admin Dose 1 APPLIC; Start 10/27/16 at 09:00 Insulin Aspart NOVOLOG *MILD* ALGORI... Q6 SC Last administered on 10/29/16 17: 51; Admin Dose 1 UNIT; Start 10/29/16 at 12:00 Potassium Chloride/Dextrose 1,000 ml @ 125 mls/hr Q8H IV Last administered on 10/31/16 04:36; Admin Dose 125 MLS/HR; Start 10/29/16 at 11:30; Stop 10/31/16 at 11:29 Potassium Chloride/Dextrose (D5W + KCl 20 Meq) 1,000 ml @ 60 mls/hr [id number] IV ; Start 10/31/16 at 11:00; Stop 11/01/16 at 10:59 Linezolid 600 mg 600 mg BID PO Last administered on 10/31/16 09:36; Admin Dose 600 MG; Start 10/30/16 at 21:00 Colistimethate Sodium/Sodium Chloride (Coly-Mycin/NS) 100 ml @ 200 mls/hr Q12 IVPB Last administered on 10/31/16 09:43; Admin Dose 200 MLS/HR; Start at 21:00 ODALIS REYNA MD Oct 31, 2016 10:42
[2016-10-31 10:45] LABS: ADD SCAN DIFF NO
[2016-10-31 10:48] LABS: BASOPHIL # 0.1 10^3/ul (0.0-0.1); BASOPHILS % 0.3 % (0.0-2.0); EOSINOPHILS # 0.3 10^3/ul (0.0-0.5); EOSINOPHILS % 1.9 % (0.0-7.0); HEMATOCRIT 27.9 % (42.0-52.0); HEMOGLOBIN 8.3 g/dl (14.0-18.0); LYMPHOCYTES # 3.1 10^3/ul (0.8-2.9); LYMPHOCYTES % 18.2 % (15.0-51.0); MEAN CORPUSCULAR HEMOGLOBIN 26.3 pg (29.0-33.0); MEAN CORPUSCULAR HGB CONC 29.7 g/dl (32.0-37.0); MEAN CORPUSCULAR VOLUME 88.3 fl (82.0-101.0); MEAN PLATELET VOLUME 11.9 fl (7.4-10.4); MONOCYTE # 0.9 10^3/ul (0.3-0.9); MONOCYTES % 5.2 % (0.0-11.0); NEUTROPHIL # 12.4 10^3/ul (1.6-7.5); NEUTROPHILS % 73.2 % (39.0-77.0); PLATELET COUNT 126 10^3/UL (140-415); RED BLOOD COUNT 3.16 10^6/ul (4.70-6.10); RED CELL DISTRIBUTION WIDTH 17.2 % (11.5-14.5)
--- NOTE | 2016-10-31 10:48 | CONS ---
Date/Time of Note Date/Time of Note DATE: 10/31/16 TIME: 10:46 Assessment/Plan Assessment/Plan Additional Assessment/Plan Ventilator settings; AC of 12, tidal volume 550, PEEP of 5, 30% FiO2. Assessment recommendations; 1. Patient admitted for sepsis and UTI with significant clinical improvement. 2. Chronic respiratory failure, ventilator dependent. 3. Multi-infarct dementia. 4. Prior history of multiple episodes of pneumonia and sepsis. 5. History of cardiac arrhythmia. Continue current treatment. Patient can be transferred to the correction. Consultation Date/Type/Reason Admit Date/Time Oct 25, 2016 at 10:54 Initial Consult Date 10/25/16 Type of Consultation: Pulmonary Referring Provider: DILIP ARELLANO MD 24 HR Interval Summary Free Text/Dictation Patient condition stable. Remains ventilator dependent. He is arousable. General exam; elderly male, on ventilator via tracheostomy currently in no distress. Exam/Review of Systems Vital Signs Vitals Vital Signs Date Time Temp Pulse Resp B/P Pulse Ox O2 Delivery O2 Flow Rate FiO2 10/31/16 09:23 78 14 98 30 10/31/16 08:26 97.6 119/58 10/28/16 12:00 Mechanical Ventilator Intake and Output 10/30/16 10/30/16 10/31/16 15:00 23:00 07:00 Intake Total 5080 ml Output Total 2250 ml Balance 2830 ml Results HEENT examination; supple neck, JVD no JVD no lymphadenopathy midline trachea. Tracheostomy in place with clean insertion site. Pupils are small bilaterally. Chest examination; clear to auscultation. S1-S2 audible, no murmurs. Regular rhythm. Abdomen examination; soft, no organomegaly. Bowel sounds audible. G-tube in place. Extremity examination; no peripheral edema. [employer] exam is; patient is awake and does not follow any commands. Result Diagram: 10/30/16 0655 10/30/1655 Results 24 hrs Laboratory Tests Test 10/30/16 12:55 10/30/16 17:17 10/30/16 21:42 10/31/16 01:20 Bedside Glucose 111 126 158 129 Test 10/31/16 07:16 10/31/16 08:08 Bedside Glucose 96 96 Medications Medications Current Medications Dextrose (D50w Syringe) 50 ml ONCE PRN IV POC BLOOD GLUCOSE <250 MG/DL; Start 10/25/16 at 11:00 Ondansetron HCl (Zofran Inj) 4 mg Q6H PRN IV NAUSEA AND/OR VOMITING Last administered on 10/27/16 13:51; Admin Dose 4 MG; Start 10/25/16 at 11:00 Nitroglycerin (Nitroglycerin (Sl Tab) 0.4 Mg) 1 tab Q5M PRN SL CHEST PAIN; Start 10/25/16 at 11:00 Acetaminophen (Tylenol Tab) 650 mg Q6H PRN PO PAIN LEVEL 1-3 OR FEVER; Start at 11:00 Acetaminophen (Tylenol Supp) 650 mg Q4H PRN [place] PAIN LEVEL 1-3 OR FEVER; Start 10/25/16 at 11:00 Docusate Sodium (Colace) 100 mg Q12H PRN PO CONSTIPATION; Start 10/25/16 at 11: 00 Bisacodyl (Dulcolax Supp) 10 mg DAILY PRN [place] CONSTIPATION; Start 10/25/16 at 11: 00 Amiodarone HCl (Cordarone) 400 mg BID GTB Last administered on 10/31/16 09:36 ; Admin Dose 400 MG; Start 10/25/16 at 21:00 Ascorbic Acid (Vitamin C) 500 mg DAILY GTB Last administered on 10/31/16 09:36 ; Admin Dose 500 MG; Start 10/26/16 at 09:00 Chlorhexidine Gluconate (Peridex) 15 ml Q12 MM Last administered on 10/31/16 09:35; Admin Dose 15 ML; Start 10/25/16 at 21:00 Collagenase (Santyl) 1 applic DAILY TOP Last administered on 10/31/16 09:37; Admin Dose 1 APPLIC; Start 10/26/16 at 09:00 Ferrous Sulfate (Feosol Liquid Cup) 330 mg DAILY GTB Last administered on 09:35; Admin Dose 330 MG; Start 10/26/16 at 09:00 Multivitamins Therapeutic (Theragran) 1 tab DAILY GTB Last administered on 10/31 09:35; Admin Dose 1 TAB; Start 10/26/16 at 09:00 Lactobacillus Acidoph/Bulgaricus (Floranex) 1 tab BID PO Last administered on 09:49; Admin Dose 1 TAB; Start 10/25/16 at 21:00 Fenofibrate (Tricor) 145 mg DAILY PO Last administered on 10/31/16 09:36; Admin Dose 145 MG; Start 10/26/16 at 09:00 IV Flush (NS 10 ml) 10 ml PRN PRN IV IV PROTOCOL; Start 10/25/16 at 11:30 Atorvastatin Calcium (Lipitor) 20 mg HS PO Last administered on 10/30/16 20:59 ; Admin Dose 20 MG; Start 10/25/16 at 21:00 Pantoprazole (Protonix Iv) 40 mg BID IV Last administered on 10/31/16 09:37; Admin Dose 40 MG; Start 10/25/16 at 21:00 Miscellaneous Information 1 ea NOTE XX ; Start 10/26/16 at 09:30 Glucose (Glutose) 15 gm Q15M PRN PO DECREASED GLUCOSE; Start 10/26/16 at 09:30 Glucose (Glutose) 22.5 gm Q15M PRN PO DECREASED GLUCOSE; Start 10/26/16 at 09:30 Dextrose (D50w Syringe) 25 ml Q15M PRN IV DECREASED GLUCOSE; Start 10/26/16 at 09:30 Dextrose (D50w Syringe) 50 ml Q15M PRN IV DECREASED GLUCOSE; Start 10/26/16 at 09:30 Glucagon (Glucagen) 1 mg Q15M PRN IM DECREASED GLUCOSE; Start 10/26/16 at 09:30 Glucose (Glutose) 15 gm Q15M PRN BUCCAL DECREASED GLUCOSE; Start 10/26/16 at 09: 30 Insulin Glargine (Lantus) 12 unit DAILY@20 SC Last administered on 10/30/16 21 :46; Admin Dose 12 UNIT; Start 10/26/16 at 20:00 Citric Acid/ Sodium Citrate (Bicitra) 30 ml BID PO Last administered on 09:37; Admin Dose 30 ML; Start 10/26/16 at 10:30 Sodium Hypochlorite (Dakin'S (1/4 Strength)) 1 applic DAILY IRR Last administered on 10/30/16 09:50; Admin Dose 1 APPLIC; Start 10/27/16 at 09:00 Insulin Aspart NOVOLOG *MILD* ALGORI... Q6 SC Last administered on 10/29/16 17: 51; Admin Dose 1 UNIT; Start 10/29/16 at 12:00 Potassium Chloride/Dextrose 1,000 ml @ 125 mls/hr Q8H IV Last administered on 10/31/16 04:36; Admin Dose 125 MLS/HR; Start 10/29/16 at 11:30; Stop 10/31/16 at 11:29 Potassium Chloride/Dextrose (D5W + KCl 20 Meq) 1,000 ml @ 60 mls/hr [id number] IV ; Start 10/31/16 at 11:00; Stop 11/01/16 at 10:59 Linezolid 600 mg 600 mg BID PO Last administered on 10/31/16 09:36; Admin Dose 600 MG; Start 10/30/16 at 21:00 Colistimethate Sodium/Sodium Chloride (Coly-Mycin/NS) 100 ml @ 200 mls/hr Q12 IVPB Last administered on 10/31/16 09:43; Admin Dose 200 MLS/HR; Start at 21:00 JORGE ROBLES Oct 31, 2016 10:48
[2016-10-31 11:02] LABS: CALCIUM 7.6 mg/dl (8.4-10.2); CREATININE 0.61 mg/dl (0.61-1.24); POTASSIUM 3.8 mmol/L (3.5-5.1)
--- NOTE | 2016-10-31 13:43 | CONS ---
Date/Time of Note Date/Time of Note DATE: 10/31/16 TIME: 13:40 Assessment/Plan Assessment/Plan Chief Complaint/Hosp Course SUBJECTIVE: No events overnight. The patient is nonverbal, awake, lying comfortably in bed. MICROBIOLOGY: Blood culture growing Proteus and coagulase-negative staph species. Urine culture growing E. coli, Morganella morganii. Nares swab came back positive for MRSA. Sacral wound culture growing methicillin-resistant Staphylococcus and Acinetobacter baumannii, multi-drug resistant. ANTIMICROBIALS: Zyvox, Colistin INDWELLINGS: Trach, PEG, Ferreira, PICC line placed on 10/25/2016. PHYSICAL EXAMINATION: GENERAL: This is a fragile, chronically ill-appearing, elderly man who is lying comfortably in bed. HEENT: Head atraumatic, normocephalic. Sclerae anicteric. Buccal mucosa dry. NECK: Supple. Tracheostomy present. CHEST: Rise symmetrical. Breath sounds diminished to bases. HEART: S1, S2. ABDOMEN: Soft, bowel tones present. EXTREMITIES: Without cyanosis. Bilateral trace edema. ASSESSMENT: 1. Sepsis, status post shock. 2. Polymicrobial bacteremia. 3. Recurrent urinary tract infection with hematuria. 4. Sacral decubitus. 5. Methicillin-resistant Staphylococcus aureus nares colonization. 6. Recurrent hematuria. 7. Acute on chronic anemia. PLAN: Stable, pending colonoscopy, continue abx, Bactroban to nares, local wound care as per surgery. Urology rec-s noted. DW staff Problems: Consultation Date/Type/Reason Admit Date/Time Oct 25, 2016 at 10:54 Initial Consult Date 10/25/16 Type of Consultation: id Referring Provider: DILIP ARELLANO MD Exam/Review of Systems Vital Signs Vitals Vital Signs Date Time Temp Pulse Resp B/P Pulse Ox O2 Delivery O2 Flow Rate FiO2 10/31/16 13:16 80 15 100 30 10/31/16 11:34 97.6 124/57 10/28/16 12:00 Mechanical Ventilator Intake and Output 10/30/16 10/30/16 10/31/16 14:59 22:59 06:59 Intake Total 5080 ml Output Total 2250 ml Balance 2830 ml Results Result Diagram: 10/31/16 1020 10/31/16 1020 Results 24 hrs Laboratory Tests Test 10/30/16 17:17 10/30/16 21:42 10/31/16 01:20 10/31/16 07:16 Bedside Glucose 126 158 129 96 Test 10/31/16 08:08 10/31/16 10:20 10/31/16 12:48 Bedside Glucose 96 89 White Blood Count 17.0 H Red Blood Count 3.16 L Hemoglobin 8.3 L Hematocrit 27.9 L Mean Corpuscular Volume 88.3 Mean Corpuscular Hemoglobin 26.3 L Mean Corpuscular Hemoglobin Concent 29.7 L Red Cell Distribution Width 17.2 H Platelet Count 126 L Mean Platelet Volume 11.9 H Neutrophils % 73.2 Lymphocytes % 18.2 Monocytes % 5.2 Eosinophils % 1.9 Basophils % 0.3 Nucleated Red Blood Cells % 0.0 Neutrophils # 12.4 H Lymphocytes # 3.1 H Monocytes # 0.9 Eosinophils # 0.3 Basophils # 0.1 Nucleated Red Blood Cells # 0.0 Sodium Level 146 H Potassium Level 3.8 Chloride Level 118 H Carbon Dioxide Level 22 Anion Gap 10 Blood Urea Nitrogen 25 #H Creatinine 0.61 Glucose Level 84 Calcium Level 7.6 L Medications Medications Current Medications Dextrose (D50w Syringe) 50 ml ONCE PRN IV POC BLOOD GLUCOSE <250 MG/DL; Start 10/25/16 at 11:00 Ondansetron HCl (Zofran Inj) 4 mg Q6H PRN IV NAUSEA AND/OR VOMITING Last administered on 10/27/16 13:51; Admin Dose 4 MG; Start 10/25/16 at 11:00 Nitroglycerin (Nitroglycerin (Sl Tab) 0.4 Mg) 1 tab Q5M PRN SL CHEST PAIN; Start 10/25/16 at 11:00 Acetaminophen (Tylenol Tab) 650 mg Q6H PRN PO PAIN LEVEL 1-3 OR FEVER; Start at 11:00 Acetaminophen (Tylenol Supp) 650 mg Q4H PRN [place] PAIN LEVEL 1-3 OR FEVER; Start 10/25/16 at 11:00 Docusate Sodium (Colace) 100 mg Q12H PRN PO CONSTIPATION; Start 10/25/16 at 11: 00 Bisacodyl (Dulcolax Supp) 10 mg DAILY PRN [place] CONSTIPATION; Start 10/25/16 at 11: 00 Amiodarone HCl (Cordarone) 400 mg BID GTB Last administered on 10/31/16 09:36 ; Admin Dose 400 MG; Start 10/25/16 at 21:00 Ascorbic Acid (Vitamin C) 500 mg DAILY GTB Last administered on 10/31/16 09:36 ; Admin Dose 500 MG; Start 10/26/16 at 09:00 Chlorhexidine Gluconate (Peridex) 15 ml Q12 MM Last administered on 10/31/16 09:35; Admin Dose 15 ML; Start 10/25/16 at 21:00 Collagenase (Santyl) 1 applic DAILY TOP Last administered on 10/31/16 09:37; Admin Dose 1 APPLIC; Start 10/26/16 at 09:00 Ferrous Sulfate (Feosol Liquid Cup) 330 mg DAILY GTB Last administered on 09:35; Admin Dose 330 MG; Start 10/26/16 at 09:00 Multivitamins Therapeutic (Theragran) 1 tab DAILY GTB Last administered on 10/31 09:35; Admin Dose 1 TAB; Start 10/26/16 at 09:00 Lactobacillus Acidoph/Bulgaricus (Floranex) 1 tab BID PO Last administered on 09:49; Admin Dose 1 TAB; Start 10/25/16 at 21:00 Fenofibrate (Tricor) 145 mg DAILY PO Last administered on 10/31/16 09:36; Admin Dose 145 MG; Start 10/26/16 at 09:00 IV Flush (NS 10 ml) 10 ml PRN PRN IV IV PROTOCOL; Start 10/25/16 at 11:30 Atorvastatin Calcium (Lipitor) 20 mg HS PO Last administered on 10/30/16 20:59 ; Admin Dose 20 MG; Start 10/25/16 at 21:00 Pantoprazole (Protonix Iv) 40 mg BID IV Last administered on 10/31/16 09:37; Admin Dose 40 MG; Start 10/25/16 at 21:00 Miscellaneous Information 1 ea NOTE XX ; Start 10/26/16 at 09:30 Glucose (Glutose) 15 gm Q15M PRN PO DECREASED GLUCOSE; Start 10/26/16 at 09:30 Glucose (Glutose) 22.5 gm Q15M PRN PO DECREASED GLUCOSE; Start 10/26/16 at 09:30 Dextrose (D50w Syringe) 25 ml Q15M PRN IV DECREASED GLUCOSE; Start 10/26/16 at 09:30 Dextrose (D50w Syringe) 50 ml Q15M PRN IV DECREASED GLUCOSE; Start 10/26/16 at 09:30 Glucagon (Glucagen) 1 mg Q15M PRN IM DECREASED GLUCOSE; Start 10/26/16 at 09:30 Glucose (Glutose) 15 gm Q15M PRN BUCCAL DECREASED GLUCOSE; Start 10/26/16 at 09: 30 Insulin Glargine (Lantus) 12 unit DAILY@20 SC Last administered on 10/30/16 21 :46; Admin Dose 12 UNIT; Start 10/26/16 at 20:00 Citric Acid/ Sodium Citrate (Bicitra) 30 ml BID PO Last administered on 09:37; Admin Dose 30 ML; Start 10/26/16 at 10:30 Sodium Hypochlorite (Dakin'S (1/4 Strength)) 1 applic DAILY IRR Last administered on 10/30/16 09:50; Admin Dose 1 APPLIC; Start 10/27/16 at 09:00 Insulin Aspart NOVOLOG *MILD* ALGORI... Q6 SC Last administered on 10/29/16 17: 51; Admin Dose 1 UNIT; Start 10/29/16 at 12:00 Potassium Chloride/Dextrose (D5W + KCl 20 Meq) 1,000 ml @ 60 mls/hr [id number] IV ; Start 10/31/16 at 11:00; Stop 11/01/16 at 10:59 Linezolid 600 mg 600 mg BID PO Last administered on 10/31/16 09:36; Admin Dose 600 MG; Start 10/30/16 at 21:00 Colistimethate Sodium/Sodium Chloride (Coly-Mycin/NS) 100 ml @ 200 mls/hr Q12 IVPB Last administered on 10/31/16 09:43; Admin Dose 200 MLS/HR; Start at 21:00 ADITYA CALLAHAN NP Oct 31, 2016 13:43
--- NOTE | 2016-10-31 14:55 | PN ---
Date/Time of Note Date/Time of Note DATE: 10/31/16 TIME: 14:51 Assessment/Plan VTE Prophylaxis VTE Prophylaxis Intervention: SCD's Lines/Catheters IV Catheter Type (from [facility]): PICC Line Central line still needed: Yes Urinary Cath still in place: Yes Reason Cath still needed: other (indicate) Assessment/Plan Chief Complaint/Hosp Course ASSESSMENT AND PLAN: 1. Sepsis, likely secondary to urinary tract infection off pressors Continue Zosyn and Aztreonam. Infectious disease doctor has been consulted. 2. Ventilator-dependent respiratory failure. Continue vent management by alum operator. 3. Non-ST myocardial infarction with elevated troponin, likely demand ischemia secondary to anemia. Follow-up cardiology recommendations 4. Anemia, secondary to GI bleed positive guaiac. electrical mechanical technician consulted , continue IV PPI. Status post 2 units of packed red blood cell. Follow hemoglobin hematocrit. No evidence of bleeding on upper endoscopy. Colonoscopy demonstrated 2 ulcers colon , continue medical management 5. Severe dehydration, improving, status post 2 units of packed red blood cells and IV fluid. Follow renal panel. 6. Acute renal insufficiency. Secondary to #5 as above, nephrology has been consulted. 7. Diabetic mellitus . Place the patient on Lantus, continue insulin sliding scale. 8. History of essential hypertension. At this time, the patient is hypotensive secondary to septic shock. Hold all blood pressure medication. 9. Dyslipidemia, on statin. 10. GI bleed, gastroenterology been consulted continue IV PPI, plan for colonoscopy today 11. Sacral decubitus, continue wound care, general surgery has been consulted and will follow his recommendations 12. Hematuria, urology has been consulted, recommend to start continuous irrigation CONDITION: Guarded We will continue to monitor patient closely. Further recommendations, management, and treatment as per clinical course. Continue to monitor and telemetry floor Plan for cystoscopy Problems: Subjective 24 Hr Interval Summary Free Text/Dictation No acute changes Patient is being made n.p.o. for GI evaluation Tolerating trach/vent Exam/Review of Systems Vital Signs Vitals Vital Signs Date Time Temp Pulse Resp B/P Pulse Ox O2 Delivery O2 Flow Rate FiO2 10/31/16 13:16 80 15 100 30 10/31/16 11:34 97.6 124/57 10/28/16 12:00 Mechanical Ventilator Intake and Output 10/30/16 10/30/16 10/31/16 15:00 23:00 07:00 Intake Total 5080 ml Output Total 2250 ml Balance 2830 ml Exam General: The patient is cachectic, Not in acute distress. HEENT: Atraumatic, normocephalic. The pupils are equal and round . Neck: Trach in place Chest: Normal Lungs: Decreased breath sounds bilateral lower lung field Heart: Normal S1-S2, irregularly irregular Abdomen: Soft , nontender, nondistended , bowel sounds are present. PEG tube in place Extremities: Bilateral lower extremity decubitus ulcers, no edema no cyanosis Neurologic: ,The patient is awake, Lumbar sacral: Stage III decubitus ulcer Results Result Diagram: 10/31/16 1020 10/31/16 1020 Results 24 hrs Laboratory Tests Test 10/30/16 17:17 10/30/16 21:42 10/31/16 01:20 10/31/16 07:16 Bedside Glucose 126 158 129 96 Test 10/31/16 08:08 10/31/16 10:20 10/31/16 12:48 Bedside Glucose 96 89 White Blood Count 17.0 H Red Blood Count 3.16 L Hemoglobin 8.3 L Hematocrit 27.9 L Mean Corpuscular Volume 88.3 Mean Corpuscular Hemoglobin 26.3 L Mean Corpuscular Hemoglobin Concent 29.7 L Red Cell Distribution Width 17.2 H Platelet Count 126 L Mean Platelet Volume 11.9 H Neutrophils % 73.2 Lymphocytes % 18.2 Monocytes % 5.2 Eosinophils % 1.9 Basophils % 0.3 Nucleated Red Blood Cells % 0.0 Neutrophils # 12.4 H Lymphocytes # 3.1 H Monocytes # 0.9 Eosinophils # 0.3 Basophils # 0.1 Nucleated Red Blood Cells # 0.0 Sodium Level 146 H Potassium Level 3.8 Chloride Level 118 H Carbon Dioxide Level 22 Anion Gap 10 Blood Urea Nitrogen 25 #H Creatinine 0.61 Glucose Level 84 Calcium Level 7.6 L Medications Medications Current Medications Ondansetron HCl (Zofran Inj) 4 mg Q6H PRN IV NAUSEA AND/OR VOMITING Last administered on 10/27/16t 13:51; Admin Dose 4 MG; Start 10/25/16 at 11:00 Nitroglycerin (Nitroglycerin (Sl Tab) 0.4 Mg) 1 tab Q5M PRN SL CHEST PAIN; Start 10/25/16 at 11:00 Acetaminophen (Tylenol Tab) 650 mg Q6H PRN PO PAIN LEVEL 1-3 OR FEVER; Start at 11:00 Acetaminophen (Tylenol Supp) 650 mg Q4H PRN NV PAIN LEVEL 1-3 OR FEVER; Start 10/25/16 at 11:00 Docusate Sodium (Colace) 100 mg Q12H PRN PO CONSTIPATION; Start 10/25/16 at 11: 00 Bisacodyl (Dulcolax Supp) 10 mg DAILY PRN NV CONSTIPATION; Start 10/25/16 at 11: 00 Amiodarone HCl (Cordarone) 400 mg BID GTB Last administered on 10/31/16 09:36 ; Admin Dose 400 MG; Start 10/25/16 at 21:00 Ascorbic Acid (Vitamin C) 500 mg DAILY GTB Last administered on 10/31/16 09:36 ; Admin Dose 500 MG; Start 10/26/16 at 09:00 Chlorhexidine Gluconate (Peridex) 15 ml Q12 MM Last administered on 10/31/16 09:35; Admin Dose 15 ML; Start 10/25/16 at 21:00 Collagenase (Santyl) 1 applic DAILY TOP Last administered on 10/31/16 09:37; Admin Dose 1 APPLIC; Start 10/26/16 at 09:00 Ferrous Sulfate (Feosol Liquid Cup) 330 mg DAILY GTB Last administered on 09:35; Admin Dose 330 MG; Start 10/26/16 at 09:00 Multivitamins Therapeutic (Theragran) 1 tab DAILY GTB Last administered on 10/31 09:35; Admin Dose 1 TAB; Start 10/26/16 at 09:00 Lactobacillus Acidoph/Bulgaricus (Floranex) 1 tab BID PO Last administered on 09:49; Admin Dose 1 TAB; Start 10/25/16 at 21:00 Fenofibrate (Tricor) 145 mg DAILY PO Last administered on 10/31/16 09:36; Admin Dose 145 MG; Start 10/26/16 at 09:00 IV Flush (NS 10 ml) 10 ml PRN PRN IV IV PROTOCOL; Start 10/25/16 at 11:30 Atorvastatin Calcium (Lipitor) 20 mg HS PO Last administered on 10/30/16 20:59 ; Admin Dose 20 MG; Start 10/25/16 at 21:00 Pantoprazole (Protonix Iv) 40 mg BID IV Last administered on 10/31/16 09:37; Admin Dose 40 MG; Start 10/25/16 at 21:00 Miscellaneous Information 1 ea NOTE XX ; Start 10/26/16 at 09:30 Glucose (Glutose) 15 gm Q15M PRN PO DECREASED GLUCOSE; Start 10/26/16 at 09:30 Glucose (Glutose) 22.5 gm Q15M PRN PO DECREASED GLUCOSE; Start 10/26/16 at 09:30 Dextrose (D50w Syringe) 25 ml Q15M PRN IV DECREASED GLUCOSE; Start 10/26/16 at 09:30 Dextrose (D50w Syringe) 50 ml Q15M PRN IV DECREASED GLUCOSE; Start 10/26/16 at 09:30 Glucagon (Glucagen) 1 mg Q15M PRN IM DECREASED GLUCOSE; Start 10/26/16 at 09:30 Glucose (Glutose) 15 gm Q15M PRN BUCCAL DECREASED GLUCOSE; Start 10/26/16 at 09: 30 Insulin Glargine (Lantus) 12 unit DAILY@20 SC Last administered on 10/30/16 21 :46; Admin Dose 12 UNIT; Start 10/26/16 at 20:00 Citric Acid/ Sodium Citrate (Bicitra) 30 ml BID PO Last administered on 09:37; Admin Dose 30 ML; Start 10/26/16 at 10:30 Sodium Hypochlorite (Dakin'S (1/4 Strength)) 1 applic DAILY IRR Last administered on 10/30/16 09:50; Admin Dose 1 APPLIC; Start 10/27/16 at 09:00 Insulin Aspart NOVOLOG *MILD* ALGORI... Q6 SC Last administered on 10/29/16 17: 51; Admin Dose 1 UNIT; Start 10/29/16 at 12:00 Potassium Chloride/Dextrose (D5W + KCl 20 Meq) 1,000 ml @ 60 mls/hr [id number] IV Last administered on 10/31/16 11:00; Admin Dose 60 MLS/HR; Start 10/31/16 at 11:00; Stop 11/01/16 at 10:59 Linezolid 600 mg 600 mg BID PO Last administered on 10/31/16 09:36; Admin Dose 600 MG; Start 10/30/16 at 21:00 Colistimethate Sodium/Sodium Chloride (Coly-Mycin/NS) 100 ml @ 200 mls/hr Q12 IVPB Last administered on 10/31/16 09:43; Admin Dose 200 MLS/HR; Start at 21:00 DILIP ARELLANO MD Oct 31, 2016 14:55
[2016-10-31] MEDS ORDERED: morphine (1 MG/ML) 10ML SYRINGE IV PRN ×2 (15:30)
[2016-10-31] MEDS ORDERED: EPHEDrine SULFATE 50 MG/5 ML SYG IV PRN (15:30)
[2016-10-31] MEDS ORDERED: LABETALOL HCL 20MG INJ IV PRN (15:30)
[2016-10-31] MEDS ORDERED: hydrALAzine 20 MG INJ IV PRN (15:30)
[2016-10-31] MEDS ORDERED: SULFASALAZINE 500 MG TAB GTB SCH (17:00)
--- NOTE | 2016-10-31 17:06 | QN ---
Documentation Job number: Medical evaluation Comment This is a 76-year-old gentleman with past medical history of CVA, diabetes mellitus type 2, COPD, respiratory failure, status post tracheostomy, dysphagia , status post PEG tube placement, hypertension, peptic ulcer disease, BPH, coronary artery disease, arrhythmia, anemia, and dyslipidemia who resides at [facility], and was found to be severely hypotensive. Patient was admitted to ICU and was placed on pressors secondary to severe hypotension and sepsis. Patient has been placed on IV antibiotics IV fluid and at this time is off pressors. On physical examination patient is been found to have stage III to IV sacral decubitus and general surgery has been consulted for debridement. At this time patient has been transferred to telemetry floor. Consultation with infectious disease and surgeon has been obtain. Patient is found to have multiple comorbidities. He presents with moderate to high risk for any perioperative event due to his comorbidities. DILIP ARELLANO MD Oct 31, 2016 17:06
[2016-10-31] MEDS: DEXTROSE 50% 50 ML SYRINGE IV PRN (17:52)
[2016-10-31] MEDS: SULFASALAZINE GTB SCH ×2 (18:15→20:18)
--- NOTE | 2016-10-31 18:37 | GILP ---
DATE OF PROCEDURE: 10/31/2016 DATE: 10/31/2016 NAME OF PROCEDURE: Colonoscopy with biopsies. SURGEON: Elder Overton MD HISTORY AND INDICATIONS: The patient is being evaluated for severe anemia. PREMEDICATION: Monitored anesthesia care by anesthesiologist. INSTRUMENT USED: Olympus colonoscope. PREPARATION: Adequate. TECHNIQUE: After informed consent, with the patient/relatives understanding the procedure, its indic ations potential risks and complications, including but not limited to: allergic reaction, bleeding, perforation, infection, missed lesions and, after all pertinent questions were answered to the mel ent's satisfaction, the patient/relatives signed the witnessed informed consent. Following this, premedication was administered slowly IV push by under careful cardiovascular and re spiratory monitoring with pulse oximetry, automatic blood pressure and telemetry monitor. Once the sedati ve effect was achieved, the patient was placed in the left lateral decubitus position, digital recta l examination was performed. The colonoscope was then introduced and advanced under visual control throughout all segments of the colon including: the rectum, sigmoid, descending colon, splenic flexu re, transverse colon, hepatic flexure, ascending colon and finally reaching the cecum which was johny rly identified by transillumination, finger indentation and the ileocecal valve. Careful examinatio n of the mucosa of the lower gastrointestinal tract both on insertion as well as withdrawal of the i nstrument disclosed the following findings: Rectal Examination: Small external hemorrhoids are noted. Colonic Mucosa: There is an 8 mm area of ulceration in the proximal descending colon. Biopsies wer e obtained. The remainder of colonic mucosa is unremarkable until we reached the area of the cecum where a 4 cm ulceration with no stigmata of recent bleeding was identified. Biopsies were obtained. The remainder of colonic mucosa unremarkable. The terminal ileum was unremarkable as well. The instrument was withdrawn. On withdrawal of the instrument, no additional abnormalities are note d with the exception of large internal hemorrhoids. IMPRESSION: 1. An 8 mm ulcer in the proximal descending colon, biopsied. 2. A 4 cm ulcer in the cecum, biopsied. 3. Normal ileum. 4. Otherwise, normal colonic mucosa. 5. Large internal hemorrhoids. PLAN: The patient will be treated with ____ suspension. This will be formulated or compounded by [facility]. One dose would be 1 gram q.i.d. Pathology will be reviewed as soon as available. Dictated By: ELDER OVERTON MS/NTS Conf#: [id number] DID#: [id number] CC: DILIP ARELLANO MD; ELDER OVERTON;*EndCC*
--- NOTE | 2016-10-31 19:06 | PN ---
Date/Time of Note Date/Time of Note DATE: 10/31/16 TIME: 19:03 Assessment/Plan Lines/Catheters IV Catheter Type (from [facility]): PICC Line Ferreira in Place (from [facility]): Yes Assessment/Plan Chief Complaint/Hosp Course 1. Sacral deep tissue injury. -eventual excisional debridement -offloading -optimize nutrition per feeding tube -vitamin C administration -local care. 2. Lower extremity decubitus ulcerations as above. 3. Shock (sepsis plus or minus hypovolemia, plus or minus cardiac). Improved -Continue judicious fluid management, cardiac optimization and treatment of underlying infections. 4. Urinary tract infection. Continue antibiotics. 5. Significant anemia of unknown etiology. EGD performed. Colonoscopy noted . -await path -gi/medical management -tx prn 6. Diabetes. Continue nutrition and medication control. 7. Elevated troponin with non-ST elevation myocardial infarction. Continue cardiac optimization. 8. History of cerebrovascular accident. Continue medical optimization. 9. Peptic ulcer disease. Continue proton pump inhibitors. 10. Coronary artery disease. Continue cardiac optimization. 11. Acute renal insufficiency secondary to above. Continue judicious fluid management. 12. Ventilator-dependent respiratory failure. Continue pulmonary toilet. 13. Dysphagia and tube feeds s/p PEG Thank you, Problems: Subjective 24 Hr Interval Summary s/p Colonoscopy 10/31. No f/c. No cough. No sz/rash. No bloating. No vomiting. Leukocytosis worsening. Bowel function. Exam/Review of Systems Vital Signs Vitals Vital Signs Date Time Temp Pulse Resp B/P Pulse Ox O2 Delivery O2 Flow Rate FiO2 10/31/16 17:31 93 15 100 30 10/31/16 15:56 98.1 108/51 10/28/16 12:00 Mechanical Ventilator Intake and Output 10/30/16 10/30/16 10/31/16 15:00 23:00 07:00 Intake Total 5080 ml Output Total 2250 ml Balance 2830 ml Exam Free Text/Dictation GENERAL: Awake but noncommunicative. HEENT: The pupils are equal and reactive. No scleral icterus. Mucous membranes are moist. NECK: Trach in place. No JVD. PULMONARY: Decreased breath sounds. No wheezing. CARDIAC: S1, S2 present. ABDOMEN: Soft. PEG in place. EXTREMITIES: Minimal edema. VASCULAR: Capillary refill is 3 seconds. NEUROLOGIC: Awake, but does not follow commands. SKIN: Deep tissue injury of the sacrococcyx. Bilateral lower extremity skin injuries. Results Free Text/Dictation Colonoscopy: 1. An 8 mm ulcer in the proximal descending colon, biopsied. 2. A 4 cm ulcer in the cecum, biopsied. 3. Normal ileum. 4. Otherwise, normal colonic mucosa. 5. Large internal hemorrhoids. Result Diagram: 10/31/16 1020 10/31/16 1020 MINNIE SHIELDS MD Oct 31, 2016 19:06
[2016-10-31] MEDS: INSULIN GLARGINE [LANtus] 3 ML PEN SC SCH ×2 (20:00→20:33)
[2016-10-31] MEDS: ATORVASTATIN 20 MG TAB PO SCH (20:24)
[2016-11-01] VITALS (42 sets, daily range): BP systolic 86–132; BP diastolic 50–72; PULSE 89–99; RESP 14–30
[2016-11-01] MEDS: D5W + KCL 20 MEQ 1,000 ML IV SCH (03:40)
--- NOTE | 2016-11-01 05:37 | RADRPT ---
PROCEDURE: XR Chest. CLINICAL INDICATION: Preop TECHNIQUE: An AP view of the chest was obtained. COMPARISON: Chest x-ray dated 10/27/2016 FINDINGS: A tracheostomy tube is in place. There is a left upper extremity PICC line with tip near the cavoat rial junction. There is prominence of the interstitial and central pulmonary vascular markings with small bilatera l pleural effusions. No focal airspace opacification or pneumothorax is seen. The cardiomediastina l silhouette is mildly enlarged . Calcifications are seen within the aortic arch. The osseous stru ctures demonstrate senescent changes. IMPRESSION: 1. Findings suggestive of pulmonary vascular congestion with small bilateral pleural effusions. Fi ndings are increased when compared to the prior examination. 2. Mild cardiomegaly and aortic atherosclerosis. 3. Tubes and lines, as described above. RPTAT: HH .Lorraine Sarabia MD, MD Date Time Electronically viewed and signed by .Lorraine Sarabia MD, MD on 11/01/2016 05:37 .G/
[2016-11-01] MEDS: INSULIN ASPART [NOVOLOG] 3 ML PEN SC SCH ×4 (06:00→18:00)
[2016-11-01 06:17] LABS: ADD SCAN DIFF NO
[2016-11-01 06:18] LABS: BASOPHIL # 0.1 10^3/ul (0.0-0.1); BASOPHILS % 0.3 % (0.0-2.0); EOSINOPHILS # 0.3 10^3/ul (0.0-0.5); EOSINOPHILS % 1.6 % (0.0-7.0); HEMATOCRIT 24.3 % (42.0-52.0); HEMOGLOBIN 7.4 g/dl (14.0-18.0); LYMPHOCYTES # 2.4 10^3/ul (0.8-2.9); LYMPHOCYTES % 13.9 % (15.0-51.0); MEAN CORPUSCULAR HEMOGLOBIN 26.8 pg (29.0-33.0); MEAN CORPUSCULAR HGB CONC 30.5 g/dl (32.0-37.0); MEAN PLATELET VOLUME 12.4 fl (7.4-10.4); MONOCYTE # 0.6 10^3/ul (0.3-0.9); MONOCYTES % 3.5 % (0.0-11.0); NEUTROPHIL # 13.9 10^3/ul (1.6-7.5); NEUTROPHILS % 79.9 % (39.0-77.0); PLATELET COUNT 146 10^3/UL (140-415); RED BLOOD COUNT 2.76 10^6/ul (4.70-6.10); RED CELL DISTRIBUTION WIDTH 17.7 % (11.5-14.5); WHITE BLOOD COUNT 17.4 10^3/ul (4.8-10.8)
[2016-11-01 06:44] LABS: CALCIUM 7.5 mg/dl (8.4-10.2); CREATININE 0.59 mg/dl (0.61-1.24); POTASSIUM 3.6 mmol/L (3.5-5.1)
[2016-11-01] MEDS ORDERED: SEVOFLURANE 15 MIN ONE (07:00)
[2016-11-01] MEDS: CITRIC ACID/NA CITRATE 30 ML CUP PO SCH (09:00)
--- NOTE | 2016-11-01 10:00 | PN ---
Date/Time of Note Date/Time of Note DATE: 11/01/16 TIME: 09:59 Assessment/Plan Lines/Catheters IV Catheter Type (from [facility]): PICC Line Ferreira in Place (from [facility]): Yes Assessment/Plan Chief Complaint/Hosp Course 1. Sacral deep tissue injury. -eventual excisional debridement -offloading -optimize nutrition per feeding tube -vitamin C administration -local care. 2. Lower extremity decubitus ulcerations as above. 3. Shock (sepsis plus or minus hypovolemia, plus or minus cardiac). Improved -Continue judicious fluid management, cardiac optimization and treatment of underlying infections. 4. Urinary tract infection. Continue antibiotics. 5. Significant anemia of unknown etiology. EGD performed. Colonoscopy noted . -await path -gi/medical management -tx prn 6. Diabetes. Continue nutrition and medication control. 7. Elevated troponin with non-ST elevation myocardial infarction. Continue cardiac optimization. 8. History of cerebrovascular accident. Continue medical optimization. 9. Peptic ulcer disease. Continue proton pump inhibitors. 10. Coronary artery disease. Continue cardiac optimization. 11. Acute renal insufficiency secondary to above. Continue judicious fluid management. 12. Ventilator-dependent respiratory failure. Continue pulmonary toilet. 13. Dysphagia and tube feeds s/p PEG Thank you, Problems: Subjective 24 Hr Interval Summary s/p Colonoscopy 10/31. No f/c. No cough. No sz/rash. No bloating. No vomiting. Leukocytosis persisting. Bowel function. Exam/Review of Systems Vital Signs Vitals Vital Signs Date Time Temp Pulse Resp B/P Pulse Ox O2 Delivery O2 Flow Rate FiO2 11/01/16 08:38 89 11/01/16 08:07 99.0 18 107/52 96 11/01/16 05:02 30 10/28/16 12:00 Mechanical Ventilator Intake and Output 10/31/16 10/31/16 11/01/16 15:00 23:00 07:00 Intake Total 100 ml 440 ml Output Total 900 ml 400 ml Balance -800 ml 40 ml Exam Free Text/Dictation GENERAL: Awake but noncommunicative. HEENT: The pupils are equal and reactive. No scleral icterus. Mucous membranes are moist. NECK: Trach in place. No JVD. PULMONARY: Decreased breath sounds. No wheezing. CARDIAC: S1, S2 present. ABDOMEN: Soft. PEG in place. EXTREMITIES: Minimal edema. VASCULAR: Capillary refill is 3 seconds. NEUROLOGIC: Awake, but does not follow commands. SKIN: Deep tissue injury of the sacrococcyx. Bilateral lower extremity skin injuries. Results Result Diagram: 11/01/16 0542 11/01/16 0542 MINNIE SHIELDS MD Nov 01, 2016 10:00
--- NOTE | 2016-11-01 10:00 | HPN ---
Date/Time of Note Date/Time of Note DATE: 11/01/16 TIME: 10:00 Interval H&P Admission Note Pt. seen H&P reviewed: Systems changes noted below per daily notes MINNIE SHIELDS MD Nov 01, 2016 10:00
--- NOTE | 2016-11-01 10:02 | PN ---
DATE: 11/01/2016 SUBJECTIVE: Gross hematuria. The patient is on a respirator and is not communicative. OBJECTIVE: VITAL SIGNS: His temperature is 99.0, blood pressure 107/52, pulse is 89, respirations 18. GENITOURINARY: The Ferreira catheter is draining well and the urine now is clear and there is no bleed ing. LABORATORY DATA: The urine culture did show E. coli and Morganella morganii, and The patient is fol lowed by infectious disease for antibiotic coverage. CBC shows a white count of 17.4, hemoglobin 7. 4, hematocrit 24.3. BUN is 22, creatinine 0.59, sodium 141, potassium 3.6, chloride 116, CO2 of 22. RECOMMENDATIONS: From a urological standpoint just for the time being, we will just keep the Ferreira catheter in and no need for irrigation and treat his infection. Dictated By: TANA DUBOIS/GENOVEVA Conf#: [id number] DID#: [id number]
--- NOTE | 2016-11-01 10:15 | PN ---
Date/Time of Note Date/Time of Note DATE: 11/01/16 TIME: 10:06 Assessment/Plan VTE Prophylaxis VTE Prophylaxis Intervention: SCD's Lines/Catheters IV C[facility]ter Type (from [facility]): PICC Line Central line still needed: Yes Urinary Cath still in place: Yes Reason Cath still needed: urinary retention Assessment/Plan Chief Complaint/Hosp Course 76 year old male with with history of cva,dm, , chronic respiratory failure, trach to vent,s/p peg,hypertension,coronary artery disease,anemia,and multiple decubitus ulcer was brought to er because of hypotension and altered level of consciousness.He was found to be hypotensive at the [facility] and subsequently transferred.upon examination at the er,he was hypotensive and altered level of consciousness Laboratory examination revealed hemoglobin 6.4, wbc 11.8,,bun 187,creatinine 2.4 and lactic acid 0.9 a total of 3 units of blood was tranfused.Presently ,no active bleeding,no nausea,no vomiting,,no blood per G tube,nor hematochezia.Patient presently on pressors with latest hemoglobin of 7.6 Problems: Assessment/Plan * Sepsis resolving * Anemia GI bleed lower vs tumors vs others 10/27/2016 EGD Gastrostomy tube in the body of the stomach. Otherwise, normal esophagogastroduodenoscopy with no bleeding site identified. 10/31/2016 Colonoscopy * 1. An 8 mm ulcer in the proximal descending colon, biopsied. 2. A 4 cm ulcer in the cecum, biopsied. 3. Normal ileum. 4. Otherwise, normal colonic mucosa. 5. Large internal hemorrhoids. * Ventilator dependent respiratory failure * Decubitus ulcer sacral * Diabetes mellitus * History of Hypertension * Dyslipidemia * Plan * continue present management Subjective 24 Hr Interval Summary Free Text/Dictation * course reviewed with Nurse * patient seen and examined * no episodes of diarrhea nor bleeding * Colonoscopy 10/31/2016 * 1. An 8 mm ulcer in the proximal descending colon, biopsied. 2. A 4 cm ulcer in the cecum, biopsied. 3. Normal ileum. 4. Otherwise, normal colonic mucosa. 5. Large internal hemorrhoids. Exam/Review of Systems Vital Signs Vitals Vital Signs Date Time Temp Pulse Resp B/P Pulse Ox O2 Delivery O2 Flow Rate FiO2 11/01/16 08:38 89 11/01/16 08:07 99.0 18 107/52 96 11/01/16 05:02 30 10/28/16 12:00 Mechanical Ventilator Intake and Output 10/31/16 10/31/16 11/01/16 15:00 23:00 07:00 Intake Total 100 ml 440 ml Output Total 900 ml 400 ml Balance -800 ml 40 ml Exam Constitutional: frail, non-verbal Neck: supple Respiratory: diminished breath sounds, other (trach to vent) Cardiovascular: nl pulses, regular rate and rhythm Gastrointestinal: non-tender, other (g tube in placed), soft Results Result Diagram: 11/01/16 0542 11/01/16 0542 Results 24 hrs Laboratory Tests Test 10/31/16 10:20 10/31/16 12:48 10/31/16 17:26 10/31/16 17:51 White Blood Count 17.0 H Red Blood Count 3.16 L Hemoglobin 8.3 L Hematocrit 27.9 L Mean Corpuscular Volume 88.3 Mean Corpuscular Hemoglobin 26.3 L Mean Corpuscular Hemoglobin Concent 29.7 L Red Cell Distribution Width 17.2 H Platelet Count 126 L Mean Platelet Volume 11.9 H Neutrophils % 73.2 Lymphocytes % 18.2 Monocytes % 5.2 Eosinophils % 1.9 Basophils % 0.3 Nucleated Red Blood Cells % 0.0 Neutrophils # 12.4 H Lymphocytes # 3.1 H Monocytes # 0.9 Eosinophils # 0.3 Basophils # 0.1 Nucleated Red Blood Cells # 0.0 Sodium Level 146 H Potassium Level 3.8 Chloride Level 118 H Carbon Dioxide Level 22 Anion Gap 10 Blood Urea Nitrogen 25 #H Creatinine 0.61 Glucose Level 84 Calcium Level 7.6 L Bedside Glucose 89 63 L 62 L Test 10/31/16 18:14 10/31/16 18:42 10/31/16 20:07 11/01/16 00:24 Bedside Glucose 101 99 100 100 Test 11/01/16 05:42 11/01/16 06:13 11/01/16 08:58 White Blood Count 17.4 H Red Blood Count 2.76 L Hemoglobin 7.4 L Hematocrit 24.3 L Mean Corpuscular Volume 88.0 Mean Corpuscular Hemoglobin 26.8 L Mean Corpuscular Hemoglobin Concent 30.5 L Red Cell Distribution Width 17.7 H Platelet Count 146 Mean Platelet Volume 12.4 H Neutrophils % 79.9 H Lymphocytes % 13.9 L Monocytes % 3.5 Eosinophils % 1.6 Basophils % 0.3 Nucleated Red Blood Cells % 0.0 Neutrophils # 13.9 H Lymphocytes # 2.4 Monocytes # 0.6 Eosinophils # 0.3 Basophils # 0.1 Nucleated Red Blood Cells # 0.0 Sodium Level 141 Potassium Level 3.6 Chloride Level 116 H Carbon Dioxide Level 22 Anion Gap 7 L Blood Urea Nitrogen 22 H Creatinine 0.59 L Glucose Level 98 Calcium Level 7.5 L Bedside Glucose 102 81 Medications Medications Current Medications Ondansetron HCl (Zofran Inj) 4 mg Q6H PRN IV NAUSEA AND/OR VOMITING Last administered on 10/27/16 13:51; Admin Dose 4 MG; Start 10/25/16 at 11:00 Nitroglycerin (Nitroglycerin (Sl Tab) 0.4 Mg) 1 tab Q5M PRN SL CHEST PAIN; Start 10/25/16 at 11:00 Acetaminophen (Tylenol Tab) 650 mg Q6H PRN PO PAIN LEVEL 1-3 OR FEVER; Start at 11:00 Acetaminophen (Tylenol Supp) 650 mg Q4H PRN [place] PAIN LEVEL 1-3 OR FEVER; Start 10/25/16 at 11:00 Docusate Sodium (Colace) 100 mg Q12H PRN PO CONSTIPATION; Start 10/25/16 at 11: 00 Bisacodyl (Dulcolax Supp) 10 mg DAILY PRN [place] CONSTIPATION; Start 10/25/16 at 11: 00 Amiodarone HCl (Cordarone) 400 mg BID GTB Last administered on 10/31/16 20:25 ; Admin Dose 400 MG; Start 10/25/16 at 21:00 Ascorbic Acid (Vitamin C) 500 mg DAILY GTB Last administered on 10/31/16 09:36 ; Admin Dose 500 MG; Start 10/26/16 at 09:00 Chlorhexidine Gluconate (Peridex) 15 ml Q12 MM Last administered on 10/31/16 20:26; Admin Dose 15 ML; Start 10/25/16 at 21:00 Collagenase (Santyl) 1 applic DAILY TOP Last administered on 10/31/16 09:37; Admin Dose 1 APPLIC; Start 10/26/16 at 09:00 Ferrous Sulfate (Feosol Liquid Cup) 330 mg DAILY GTB Last administered on 09:35; Admin Dose 330 MG; Start 10/26/16 at 09:00 Multivitamins Therapeutic (Theragran) 1 tab DAILY GTB Last administered on 10/31 09:35; Admin Dose 1 TAB; Start 10/26/16 at 09:00 Lactobacillus Acidoph/Bulgaricus (Floranex) 1 tab BID PO Last administered on 20:23; Admin Dose 1 TAB; Start 10/25/16 at 21:00 Fenofibrate (Tricor) 145 mg DAILY PO Last administered on 10/31/16 09:36; Admin Dose 145 MG; Start 10/26/16 at 09:00 IV Flush (NS 10 ml) 10 ml PRN PRN IV IV PROTOCOL; Start 10/25/16 at 11:30 Atorvastatin Calcium (Lipitor) 20 mg HS PO Last administered on 10/31/16 20:24 ; Admin Dose 20 MG; Start 10/25/16 at 21:00 Pantoprazole (Protonix Iv) 40 mg BID IV Last administered on 10/31/16 20:26; Admin Dose 40 MG; Start 10/25/16 at 21:00 Miscellaneous Information 1 ea NOTE XX ; Start 10/26/16 at 09:30 Glucose (Glutose) 15 gm Q15M PRN PO DECREASED GLUCOSE; Start 10/26/16 at 09:30 Glucose (Glutose) 22.5 gm Q15M PRN PO DECREASED GLUCOSE; Start 10/26/16 at 09:30 Dextrose (D50w Syringe) 25 ml Q15M PRN IV DECREASED GLUCOSE Last administered on 10/31/16 17:52; Admin Dose 25 ML; Start 10/26/16 at 09:30 Dextrose (D50w Syringe) 50 ml Q15M PRN IV DECREASED GLUCOSE; Start 10/26/16 at 09:30 Glucagon (Glucagen) 1 mg Q15M PRN IM DECREASED GLUCOSE; Start 10/26/16 at 09:30 Glucose (Glutose) 15 gm Q15M PRN BUCCAL DECREASED GLUCOSE; Start 10/26/16 at 09: 30 Insulin Glargine (Lantus) 12 unit DAILY@20 SC Last administered on 10/30/16 21 :46; Admin Dose 12 UNIT; Start 10/26/16 at 20:00 Citric Acid/ Sodium Citrate (Bicitra) 30 ml BID PO Last administered on 22:24; Admin Dose 30 ML; Start 10/26/16 at 10:30 Sodium Hypochlorite (Dakin'S (1/4 Strength)) 1 applic DAILY IRR Last administered on 10/31/16 09:00; Admin Dose 1 APPLIC; Start 10/27/16 at 09:00 Insulin Aspart NOVOLOG *MILD* ALGORI... Q6 SC Last administered on 10/29/16 17: 51; Admin Dose 1 UNIT; Start 10/29/16 at 12:00 Potassium Chloride/Dextrose (D5W + KCl 20 Meq) 1,000 ml @ 60 mls/hr [id number] IV Last administered on 10/31/16 11:00; Admin Dose 60 MLS/HR; Start 10/31/16 at 11:00; Stop 11/01/16 at 10:59 Linezolid 600 mg 600 mg BID PO Last administered on 10/31/16 20:24; Admin Dose 600 MG; Start 10/30/16 at 21:00 Colistimethate Sodium/Sodium Chloride (Coly-Mycin/NS) 100 ml @ 200 mls/hr Q12 IVPB Last administered on 10/31/16 20:26; Admin Dose 200 MLS/HR; Start at 21:00 Non-Formulary Medication 10 ml QID GTB Last administered on 10/31/16 18:15; Admin Dose 10 ML; Start 10/31/16 at 17:00 RAYMON BETANCOURT MD Nov 01, 2016 10:15
[2016-11-01] MEDS: MULTIVITAMINS THERAPEUTIC TAB GTB SCH (10:20)
[2016-11-01] MEDS: FENOFIBRATE 145 MG TAB PO SCH (10:20)
[2016-11-01] MEDS: ASCORBIC ACID 500 MG TAB GTB SCH (10:21)
[2016-11-01] MEDS: ZYVOX 600 MG TAB PO SCH ×2 (10:21→21:40)
[2016-11-01] MEDS: AMIODARONE 200 MG TAB GTB SCH ×2 (10:22→21:00)
[2016-11-01] MEDS: PANTOPRAZOLE 40 MG INJ IV SCH ×2 (10:29→21:39)
[2016-11-01] MEDS: FERROUS SULFATE 60 MG/ML 5ML CUP GTB SCH (10:29)
[2016-11-01] MEDS: CHLORHEXIDINE GLUCONATE 15 ML UD CUP MM SCH ×2 (10:29→21:41)
[2016-11-01] MEDS: SODIUM HYPOCHLORITE 0.125% 473 ML BTL IRR SCH (10:30)
[2016-11-01] MEDS: LACTOBACILLUS CHEW TAB PO SCH ×2 (10:45→21:40)
[2016-11-01] MEDS: COLISTIMETHATE 75 MG in SOD CHLORIDE 0.9% 100 ML IVPB SCH ×2 (10:45→21:54)
[2016-11-01] MEDS: SULFASALAZINE GTB SCH ×3 (10:45→21:39)
[2016-11-01] MEDS: COLLAGENASE 30 GM TUBE TOP SCH (10:46)
--- NOTE | 2016-11-01 13:16 | CONS ---
Date/Time of Note Date/Time of Note DATE: 11/01/16 TIME: 13:14 Assessment/Plan Assessment/Plan Additional Assessment/Plan Ventilator settings; AC of 12, tidal volume 550, PEEP of 5, 30% FiO2. Chest x-ray was reviewed which is showing bibasilar infiltrates. Assessment recommendations; 1. Patient admitted for UTI and sepsis currently on appropriate antibiotic regimen. 2. Possibly bibasilar pneumonia. 3. Chronic respiratory failure. 4. Multi-infarct dementia. Continue current treatment. Prognosis remains poor. Consultation Date/Type/Reason Admit Date/Time Oct 25, 2016 at 10:54 Initial Consult Date 10/25/16 Type of Consultation: Pulmonary Referring Provider: DILIP ARELLANO MD 24 HR Interval Summary Free Text/Dictation Patient condition remains stable. Remains essentially unresponsive to any commands. Remains ventilator dependent. Has remained hemodynamically stable. General exam; elderly male, on ventilator via tracheostomy currently in no distress. Exam/Review of Systems Vital Signs Vitals Vital Signs Date Time Temp Pulse Resp B/P Pulse Ox O2 Delivery O2 Flow Rate FiO2 11/01/16 12:26 99 11/01/16 12:08 98.9 18 116/64 96 11/01/16 05:02 30 10/28/16 12:00 Mechanical Ventilator Intake and Output 10/31/16 10/31/16 11/01/16 14:59 22:59 06:59 Intake Total 100 ml 440 ml Output Total 900 ml 400 ml Balance -800 ml 40 ml Exam HEENT exam is; supple neck, no JVD. No lymphadenopathy. Midline trachea. No thyromegaly. Tracheostomy in place with clean insertion site. No neck masses. Chest exam; diminished breath on lung bases. Upper lobes are clear to auscultation. S1-S2 audible, no murmurs. Regular rhythm. Abdomen examination; soft, G-tube in place. No organomegaly. Bowel sounds audible. Extremity exam is; no peripheral edema. PNEUMATIC TUBE FITTER examination; patient remains unresponsive. But remains awake. Results Result Diagram: 11/01/16 0542 11/01/16 0542 Results 24 hrs Laboratory Tests Test 10/31/16 17:26 10/31/16 17:51 10/31/16 18:14 10/31/16 18:42 Bedside Glucose 63 L 62 L 101 99 Test 10/31/16 20:07 11/01/16 00:24 11/01/16 05:42 11/01/16 06:13 Bedside Glucose 100 100 102 White Blood Count 17.4 H Red Blood Count 2.76 L Hemoglobin 7.4 L Hematocrit 24.3 L Mean Corpuscular Volume 88.0 Mean Corpuscular Hemoglobin 26.8 L Mean Corpuscular Hemoglobin Concent 30.5 L Red Cell Distribution Width 17.7 H Platelet Count 146 Mean Platelet Volume 12.4 H Neutrophils % 79.9 H Lymphocytes % 13.9 L Monocytes % 3.5 Eosinophils % 1.6 Basophils % 0.3 Nucleated Red Blood Cells % 0.0 Neutrophils # 13.9 H Lymphocytes # 2.4 Monocytes # 0.6 Eosinophils # 0.3 Basophils # 0.1 Nucleated Red Blood Cells # 0.0 Sodium Level 141 Potassium Level 3.6 Chloride Level 116 H Carbon Dioxide Level 22 Anion Gap 7 L Blood Urea Nitrogen 22 H Creatinine 0.59 L Glucose Level 98 Calcium Level 7.5 L Test 11/01/16 08:58 11/01/16 12:32 Bedside Glucose 81 90 Medications Medications Current Medications Ondansetron HCl (Zofran Inj) 4 mg Q6H PRN IV NAUSEA AND/OR VOMITING Last administered on 10/27/16 13:51; Admin Dose 4 MG; Start 10/25/16 at 11:00 Nitroglycerin (Nitroglycerin (Sl Tab) 0.4 Mg) 1 tab Q5M PRN SL CHEST PAIN; Start 10/25/16 at 11:00 Acetaminophen (Tylenol Tab) 650 mg Q6H PRN PO PAIN LEVEL 1-3 OR FEVER; Start at 11:00 Acetaminophen (Tylenol Supp) 650 mg Q4H PRN [place] PAIN LEVEL 1-3 OR FEVER; Start 10/25/16 at 11:00 Docusate Sodium (Colace) 100 mg Q12H PRN PO CONSTIPATION; Start 10/25/16 at 11: 00 Bisacodyl (Dulcolax Supp) 10 mg DAILY PRN [place] CONSTIPATION; Start 10/25/16 at 11: 00 Amiodarone HCl (Cordarone) 400 mg BID GTB Last administered on 11/01/16 10:22 ; Admin Dose 400 MG; Start 10/25/16 at 21:00 Ascorbic Acid (Vitamin C) 500 mg DAILY GTB Last administered on 11/01/16 10:21 ; Admin Dose 500 MG; Start 10/26/16 at 09:00 Chlorhexidine Gluconate (Peridex) 15 ml Q12 MM Last administered on 11/01/16 10:29; Admin Dose 15 ML; Start 10/25/16 at 21:00 Collagenase (Santyl) 1 applic DAILY TOP Last administered on 11/01/16 10:46; Admin Dose 1 APPLIC; Start 10/26/16 at 09:00 Ferrous Sulfate (Feosol Liquid Cup) 330 mg DAILY GTB Last administered on 10:29; Admin Dose 330 MG; Start 10/26/16 at 09:00 Multivitamins Therapeutic (Theragran) 1 tab DAILY GTB Last administered on 11/01 10:20; Admin Dose 1 TAB; Start 10/26/16 at 09:00 Lactobacillus Acidoph/Bulgaricus (Floranex) 1 tab BID PO Last administered on 10:45; Admin Dose 1 TAB; Start 10/25/16 at 21:00 Fenofibrate (Tricor) 145 mg DAILY PO Last administered on 11/01/16 10:20; Admin Dose 145 MG; Start 10/26/16 at 09:00 IV Flush (NS 10 ml) 10 ml PRN PRN IV IV PROTOCOL; Start 10/25/16 at 11:30 Atorvastatin Calcium (Lipitor) 20 mg HS PO Last administered on 10/31/16 20:24 ; Admin Dose 20 MG; Start 10/25/16 at 21:00 Pantoprazole (Protonix Iv) 40 mg BID IV Last administered on 11/01/16 10:29; Admin Dose 40 MG; Start 10/25/16 at 21:00 Miscellaneous Information 1 ea NOTE XX ; Start 10/26/16 at 09:30 Glucose (Glutose) 15 gm Q15M PRN PO DECREASED GLUCOSE; Start 10/26/16 at 09:30 Glucose (Glutose) 22.5 gm Q15M PRN PO DECREASED GLUCOSE; Start 10/26/16 at 09:30 Dextrose (D50w Syringe) 25 ml Q15M PRN IV DECREASED GLUCOSE Last administered on 10/31/16 17:52; Admin Dose 25 ML; Start 10/26/16 at 09:30 Dextrose (D50w Syringe) 50 ml Q15M PRN IV DECREASED GLUCOSE; Start 10/26/16 at 09:30 Glucagon (Glucagen) 1 mg Q15M PRN IM DECREASED GLUCOSE; Start 10/26/16 at 09:30 Glucose (Glutose) 15 gm Q15M PRN BUCCAL DECREASED GLUCOSE; Start 10/26/16 at 09: 30 Insulin Glargine (Lantus) 12 unit DAILY@20 SC Last administered on 10/30/16 21 :46; Admin Dose 12 UNIT; Start 10/26/16 at 20:00 Citric Acid/ Sodium Citrate (Bicitra) 30 ml BID PO Last administered on 09:00; Admin Dose 30 ML; Start 10/26/16 at 10:30 Sodium Hypochlorite (Dakin'S (1/4 Strength)) 1 applic DAILY IRR Last administered on 11/01/16 10:30; Admin Dose 1 APPLIC; Start 10/27/16 at 09:00 Insulin Aspart (Novolog Insulin Pen) NOVOLOG *MILD* ALGORI... Q6 SC Last administered on 10/29/16 17:51; Admin Dose 1 UNIT; Start 10/29/16 at 12:00 Linezolid 600 mg 600 mg BID PO Last administered on 11/01/16 10:21; Admin Dose 600 MG; Start 10/30/16 at 21:00 Colistimethate Sodium/Sodium Chloride (Coly-Mycin/NS) 100 ml @ 200 mls/hr Q12 IVPB Last administered on 11/01/16 10:45; Admin Dose 200 MLS/HR; Start at 21:00 Non-Formulary Medication 10 ml QID GTB Last administered on 11/01/16 10:45; Admin Dose 10 ML; Start 10/31/16 at 17:00 JORGE ROBLES Nov 01, 2016 13:16
--- NOTE | 2016-11-01 13:26 | PN ---
Date/Time of Note Date/Time of Note DATE: 11/01/16 TIME: 13:20 Assessment/Plan VTE Prophylaxis VTE Prophylaxis Intervention: SCD's Lines/Catheters IV [facility]ter Type (from [facility]): PICC Line Central line still needed: Yes Urinary Cath still in place: Yes Reason Cath still needed: urinary retention Assessment/Plan Chief Complaint/Hosp Course ASSESSMENT AND PLAN: 1. Sepsis, likely secondary to urinary tract infection Status post pressors, off pressors at this time Continue Zosyn and Aztreonam. Infectious disease doctor has been consulted. 2. Ventilator-dependent respiratory failure. Continue vent management by ranch hand supervisor. 3. Non-ST myocardial infarction with elevated troponin, likely demand ischemia secondary to anemia. Follow-up cardiology recommendations 4. Anemia, secondary to GI bleed positive guaiac. program management intern consulted , continue IV PPI. Status post 2 units of packed red blood cell, Plan to transfuse 1 unit of PRBC today . Follow hemoglobin hematocrit. No evidence of bleeding on upper endoscopy. Colonoscopy demonstrated 2 ulcers colon , continue medical management 5. Severe dehydration, improving, status post 2 units of packed red blood cells and IV fluid. Follow renal panel. 6. Acute renal insufficiency. Secondary to #5 as above, nephrology has been consulted. 7. Diabetic mellitus . Place the patient on Lantus, continue insulin sliding scale. 8. History of essential hypertension. At this time, the patient is hypotensive secondary to septic shock. Hold all blood pressure medication. 9. Dyslipidemia, on statin. 10. GI bleed, gastroenterology been consulted continue IV PPI, plan for colonoscopy today 11. Sacral decubitus, continue wound care, plan for surgical debridement today , continue postop care 12. Hematuria, urology has been consulted, recommend to start continuous irrigation CONDITION: Guarded We will continue to monitor patient closely. Further recommendations, management, and treatment as per clinical course. Continue to monitor and telemetry floor Plan for cystoscopy Problems: Subjective 24 Hr Interval Summary Free Text/Dictation No acute changes Patient is scheduled for sacral decubitus debridement Tolerating vent N.p.o. Exam/Review of Systems Vital Signs Vitals Vital Signs Date Time Temp Pulse Resp B/P Pulse Ox O2 Delivery O2 Flow Rate FiO2 11/01/16 12:26 99 11/01/16 12:08 98.9 18 116/64 96 11/01/16 05:02 30 10/28/16 12:00 Mechanical Ventilator Intake and Output 10/31/16 10/31/16 11/01/16 15:00 23:00 07:00 Intake Total 100 ml 440 ml Output Total 900 ml 400 ml Balance -800 ml 40 ml Exam General: The patient is cachectic, Not in acute distress. HEENT: Atraumatic, normocephalic. The pupils are equal and round . Neck: Tracheostomy in place Chest: Normal Lungs: Decreased breath sounds bilateral lower lung field Heart: Normal S1-S2, Regular rhythm and rate. Abdomen: Soft , nontender, nondistended , bowel sounds are present. PEG tube in place Extremities: Lower extremity decubitus ulcers, +1 edema no cyanosis Neurologic: Patient is arousable, and awake, does not follow any command Skin: Stage III sacral decubitus Results Result Diagram: 11/01/16 0542 11/01/16 0542 Results 24 hrs Laboratory Tests Test 10/31/16 17:26 10/31/16 17:51 10/31/16 18:14 10/31/16 18:42 Bedside Glucose 63 L 62 L 101 99 Test 10/31/16 20:07 11/01/16 00:24 11/01/16 05:42 11/01/16 06:13 Bedside Glucose 100 100 102 White Blood Count 17.4 H Red Blood Count 2.76 L Hemoglobin 7.4 L Hematocrit 24.3 L Mean Corpuscular Volume 88.0 Mean Corpuscular Hemoglobin 26.8 L Mean Corpuscular Hemoglobin Concent 30.5 L Red Cell Distribution Width 17.7 H Platelet Count 146 Mean Platelet Volume 12.4 H Neutrophils % 79.9 H Lymphocytes % 13.9 L Monocytes % 3.5 Eosinophils % 1.6 Basophils % 0.3 Nucleated Red Blood Cells % 0.0 Neutrophils # 13.9 H Lymphocytes # 2.4 Monocytes # 0.6 Eosinophils # 0.3 Basophils # 0.1 Nucleated Red Blood Cells # 0.0 Sodium Level 141 Potassium Level 3.6 Chloride Level 116 H Carbon Dioxide Level 22 Anion Gap 7 L Blood Urea Nitrogen 22 H Creatinine 0.59 L Glucose Level 98 Calcium Level 7.5 L Test 11/01/16 08:58 11/01/16 12:32 Bedside Glucose 81 90 Medications Medications Current Medications Ondansetron HCl (Zofran Inj) 4 mg Q6H PRN IV NAUSEA AND/OR VOMITING Last administered on 10/27/16 13:51; Admin Dose 4 MG; Start 10/25/16 at 11:00 Nitroglycerin (Nitroglycerin (Sl Tab) 0.4 Mg) 1 tab Q5M PRN SL CHEST PAIN; Start 10/25/16 at 11:00 Acetaminophen (Tylenol Tab) 650 mg Q6H PRN PO PAIN LEVEL 1-3 OR FEVER; Start at 11:00 Acetaminophen (Tylenol Supp) 650 mg Q4H PRN [place] PAIN LEVEL 1-3 OR FEVER; Start 10/25/16 at 11:00 Docusate Sodium (Colace) 100 mg Q12H PRN PO CONSTIPATION; Start 10/25/16 at 11: 00 Bisacodyl (Dulcolax Supp) 10 mg DAILY PRN [place] CONSTIPATION; Start 10/25/16 at 11: 00 Amiodarone HCl (Cordarone) 400 mg BID GTB Last administered on 11/01/16 10:22 ; Admin Dose 400 MG; Start 10/25/16 at 21:00 Ascorbic Acid (Vitamin C) 500 mg DAILY GTB Last administered on 11/01/16 10:21 ; Admin Dose 500 MG; Start 10/26/16 at 09:00 Chlorhexidine Gluconate (Peridex) 15 ml Q12 MM Last administered on 11/01/16 10:29; Admin Dose 15 ML; Start 10/25/16 at 21:00 Collagenase (Santyl) 1 applic DAILY TOP Last administered on 11/01/16 10:46; Admin Dose 1 APPLIC; Start 10/26/16 at 09:00 Ferrous Sulfate (Feosol Liquid Cup) 330 mg DAILY GTB Last administered on 10:29; Admin Dose 330 MG; Start 10/26/16 at 09:00 Multivitamins Therapeutic (Theragran) 1 tab DAILY GTB Last administered on 11/01 10:20; Admin Dose 1 TAB; Start 10/26/16 at 09:00 Lactobacillus Acidoph/Bulgaricus (Floranex) 1 tab BID PO Last administered on 10:45; Admin Dose 1 TAB; Start 10/25/16 at 21:00 Fenofibrate (Tricor) 145 mg DAILY PO Last administered on 11/01/16 10:20; Admin Dose 145 MG; Start 10/26/16 at 09:00 IV Flush (NS 10 ml) 10 ml PRN PRN IV IV PROTOCOL; Start 10/25/16 at 11:30 Atorvastatin Calcium (Lipitor) 20 mg HS PO Last administered on 10/31/16 20:24 ; Admin Dose 20 MG; Start 10/25/16 at 21:00 Pantoprazole (Protonix Iv) 40 mg BID IV Last administered on 11/01/16 10:29; Admin Dose 40 MG; Start 10/25/16 at 21:00 Miscellaneous Information 1 ea NOTE XX ; Start 10/26/16 at 09:30 Glucose (Glutose) 15 gm Q15M PRN PO DECREASED GLUCOSE; Start 10/26/16 at 09:30 Glucose (Glutose) 22.5 gm Q15M PRN PO DECREASED GLUCOSE; Start 10/26/16 at 09:30 Dextrose (D50w Syringe) 25 ml Q15M PRN IV DECREASED GLUCOSE Last administered on 10/31/16 17:52; Admin Dose 25 ML; Start 10/26/16 at 09:30 Dextrose (D50w Syringe) 50 ml Q15M PRN IV DECREASED GLUCOSE; Start 10/26/16 at 09:30 Glucagon (Glucagen) 1 mg Q15M PRN IM DECREASED GLUCOSE; Start 10/26/16 at 09:30 Glucose (Glutose) 15 gm Q15M PRN BUCCAL DECREASED GLUCOSE; Start 10/26/16 at 09: 30 Insulin Glargine (Lantus) 12 unit DAILY@20 SC Last administered on 10/30/16 21 :46; Admin Dose 12 UNIT; Start 10/26/16 at 20:00 Citric Acid/ Sodium Citrate (Bicitra) 30 ml BID PO Last administered on 09:00; Admin Dose 30 ML; Start 10/26/16 at 10:30 Sodium Hypochlorite (Dakin'S (1/4 Strength)) 1 applic DAILY IRR Last administered on 11/01/16 10:30; Admin Dose 1 APPLIC; Start 10/27/16 at 09:00 Insulin Aspart (Novolog Insulin Pen) NOVOLOG *MILD* ALGORI... Q6 SC Last administered on 10/29/16 17:51; Admin Dose 1 UNIT; Start 10/29/16 at 12:00 Linezolid 600 mg 600 mg BID PO Last administered on 11/01/16 10:21; Admin Dose 600 MG; Start 10/30/16 at 21:00 Colistimethate Sodium/Sodium Chloride (Coly-Mycin/NS) 100 ml @ 200 mls/hr Q12 IVPB Last administered on 11/01/16 10:45; Admin Dose 200 MLS/HR; Start at 21:00 Non-Formulary Medication 10 ml QID GTB Last administered on 11/01/16 10:45; Admin Dose 10 ML; Start 10/31/16 at 17:00 DILIP ARELLANO MD Nov 01, 2016 13:26
--- NOTE | 2016-11-01 14:16 | OPR ---
Date/Time of Note Date/Time of Note DATE: 11/01/16 TIME: 14:14 Operative Report Procedure Date: Nov 01, 2016 Preoperative Diagnosis Sacral deep tissue injury Postoperative Diagnosis Sacral decubitus ulcer with necrotic skin and subcutaneous tissue Operation Performed Excisional debridement of skin and subcutaneous tissue of sacral decubitus ulcer. 9 x 7 cm Surgeon: MINNIE SHIELDS MD Anesthesia: general Anesthesiologist: JADON HAMEED MD Estimated Blood Loss: 0 - 10 ml's Specimens Tissue Tubes/Drains Curlex packing with Betadine Complications: None Pt Condition Post Procedure: stable Disposition: PACU Indications Per consult note Risks include but are not limited to bleeding, infection, abscess, seroma, chronic pain, need for re-operations or further surgeries, ID, stroke, PE, DVT, pneumonia, organ failures, or even . Procedure Description Patient was brought in on his own bed to the OR. Placed in lateral decubitus position. All pressure points were well-padded. Patient is already on antibiotics. Anesthesia was instituted. Timeout was performed. He was prepped and draped in usual sterile fashion. Using electrocautery skin, subcutaneous were excised down to healthier tissue. Hemostasis was obtained. Wound was irrigated and packed with Betadine soaked Kerlix. Dry dressing was applied. Patient was taken back to recovery room in stable condition. All counts were correct at the end of the operation 2. MINNIE SHIELDS MD Nov 01, 2016 14:16
[2016-11-01] MEDS ORDERED: morphine (1 MG/ML) 10ML SYRINGE IV PRN ×2 (14:30)
[2016-11-01] MEDS ORDERED: MEPERIDINE 25 MG INJ IV PRN (14:30)
[2016-11-01] MEDS ORDERED: MIDAZOLAM 1 MG/ML 2 ML INJ IV PRN (14:30)
[2016-11-01] MEDS ORDERED: ONDANSETRON 4 MG INJ IV PRN (14:30)
[2016-11-01] MEDS ORDERED: DIPHENHYDRAMINE 50 MG INJ IV PRN (14:30)
[2016-11-01] MEDS ORDERED: FENTAnyl 50 MCG/ML VIAL IV PRN ×2 (14:30)
[2016-11-01] MEDS ORDERED: METOCLOPRAMIDE 10 MG INJ IV PRN (14:30)
--- NOTE | 2016-11-01 14:38 | CONS ---
Date/Time of Note Date/Time of Note DATE: 11/01/16 TIME: 14:36 Assessment/Plan Assessment/Plan Additional Assessment/Plan 76 yo Male with 1) S/p Septic Shock 2nd to UTI 2) Severe Anemia 3) THEO on likely CKD, Pre-Renal Azotemia, Improving 4) Hyperkalemia- Resolved 5) Metabolic Acidosis- Improved 6) VDRF, S/p Tracheostomy 7) Dysphagia, S/p PEG Renal function continues to improve with current treatment Possible need for PRBC, Hemodynamicall stable, will defer to primary Bicitra has been discontinued. CXR reviewed, Diuretic Rx as needed. Will Cont to monitor UO, Electrolytes and renal function Consultation Date/Type/Reason Admit Date/Time Oct 25, 2016 at 10:54 Initial Consult Date 10/25/16 Type of Consultation: Renal Referring Provider: DILIP ARELLANO MD 24 HR Interval Summary Constitutional: requiring O2 Exam/Review of Systems Vital Signs Vitals Vital Signs Date Time Temp Pulse Resp B/P Pulse Ox O2 Delivery O2 Flow Rate FiO2 11/01/16 12:26 99 11/01/16 12:08 98.9 18 116/64 96 11/01/16 09:00 30 10/28/16 12:00 Mechanical Ventilator Intake and Output 10/31/16 10/31/16 11/01/16 15:00 23:00 07:00 Intake Total 100 ml 440 ml Output Total 900 ml 400 ml Balance -800 ml 40 ml Exam Constitutional: distress ENMT: mucosa pink and moist Respiratory: labored breathing Cardiovascular: edema Extremities: edema Results Result Diagram: 11/01/16 0542 11/01/16 0542 Results 24 hrs Laboratory Tests Test 10/31/16 17:26 10/31/16 17:51 10/31/16 18:14 10/31/16 18:42 Bedside Glucose 63 L 62 L 101 99 Test 10/31/16 20:07 11/01/16 00:24 11/01/16 05:42 11/01/16 06:13 Bedside Glucose 100 100 102 White Blood Count 17.4 H Red Blood Count 2.76 L Hemoglobin 7.4 L Hematocrit 24.3 L Mean Corpuscular Volume 88.0 Mean Corpuscular Hemoglobin 26.8 L Mean Corpuscular Hemoglobin Concent 30.5 L Red Cell Distribution Width 17.7 H Platelet Count 146 Mean Platelet Volume 12.4 H Neutrophils % 79.9 H Lymphocytes % 13.9 L Monocytes % 3.5 Eosinophils % 1.6 Basophils % 0.3 Nucleated Red Blood Cells % 0.0 Neutrophils # 13.9 H Lymphocytes # 2.4 Monocytes # 0.6 Eosinophils # 0.3 Basophils # 0.1 Nucleated Red Blood Cells # 0.0 Sodium Level 141 Potassium Level 3.6 Chloride Level 116 H Carbon Dioxide Level 22 Anion Gap 7 L Blood Urea Nitrogen 22 H Creatinine 0.59 L Glucose Level 98 Calcium Level 7.5 L Test 11/01/16 08:58 11/01/16 12:32 Bedside Glucose 81 90 Medications Medications Current Medications Ondansetron HCl (Zofran Inj) 4 mg Q6H PRN IV NAUSEA AND/OR VOMITING Last administered on 10/27/16 13:51; Admin Dose 4 MG; Start 10/25/16 at 11:00 Nitroglycerin (Nitroglycerin (Sl Tab) 0.4 Mg) 1 tab Q5M PRN SL CHEST PAIN; Start 10/25/16 at 11:00 Acetaminophen (Tylenol Tab) 650 mg Q6H PRN PO PAIN LEVEL 1-3 OR FEVER; Start at 11:00 Acetaminophen (Tylenol Supp) 650 mg Q4H PRN [place] PAIN LEVEL 1-3 OR FEVER; Start 10/25/16 at 11:00 Docusate Sodium (Colace) 100 mg Q12H PRN PO CONSTIPATION; Start 10/25/16 at 11: 00 Bisacodyl (Dulcolax Supp) 10 mg DAILY PRN [place] CONSTIPATION; Start 10/25/16 at 11: 00 Amiodarone HCl (Cordarone) 400 mg BID GTB Last administered on 11/01/16 10:22 ; Admin Dose 400 MG; Start 10/25/16 at 21:00 Ascorbic Acid (Vitamin C) 500 mg DAILY GTB Last administered on 11/01/16 10:21 ; Admin Dose 500 MG; Start 10/26/16 at 09:00 Chlorhexidine Gluconate (Peridex) 15 ml Q12 MM Last administered on 11/01/16 10:29; Admin Dose 15 ML; Start 10/25/16 at 21:00 Collagenase (Santyl) 1 applic DAILY TOP Last administered on 11/01/16 10:46; Admin Dose 1 APPLIC; Start 10/26/16 at 09:00 Ferrous Sulfate (Feosol Liquid Cup) 330 mg DAILY GTB Last administered on 10:29; Admin Dose 330 MG; Start 10/26/16 at 09:00 Multivitamins Therapeutic (Theragran) 1 tab DAILY GTB Last administered on 11/01 10:20; Admin Dose 1 TAB; Start 10/26/16 at 09:00 Lactobacillus Acidoph/Bulgaricus (Floranex) 1 tab BID PO Last administered on 10:45; Admin Dose 1 TAB; Start 10/25/16 at 21:00 Fenofibrate (Tricor) 145 mg DAILY PO Last administered on 11/01/16 10:20; Admin Dose 145 MG; Start 10/26/16 at 09:00 IV Flush (NS 10 ml) 10 ml PRN PRN IV IV PROTOCOL; Start 10/25/16 at 11:30 Atorvastatin Calcium (Lipitor) 20 mg HS PO Last administered on 10/31/16 20:24 ; Admin Dose 20 MG; Start 10/25/16 at 21:00 Pantoprazole (Protonix Iv) 40 mg BID IV Last administered on 11/01/16 10:29; Admin Dose 40 MG; Start 10/25/16 at 21:00 Miscellaneous Information 1 ea NOTE XX ; Start 10/26/16 at 09:30 Glucose (Glutose) 15 gm Q15M PRN PO DECREASED GLUCOSE; Start 10/26/16 at 09:30 Glucose (Glutose) 22.5 gm Q15M PRN PO DECREASED GLUCOSE; Start 10/26/16 at 09:30 Dextrose (D50w Syringe) 25 ml Q15M PRN IV DECREASED GLUCOSE Last administered on 10/31/16 17:52; Admin Dose 25 ML; Start 10/26/16 at 09:30 Dextrose (D50w Syringe) 50 ml Q15M PRN IV DECREASED GLUCOSE; Start 10/26/16 at 09:30 Glucagon (Glucagen) 1 mg Q15M PRN IM DECREASED GLUCOSE; Start 10/26/16 at 09:30 Glucose (Glutose) 15 gm Q15M PRN BUCCAL DECREASED GLUCOSE; Start 10/26/16 at 09: 30 Insulin Glargine (Lantus) 12 unit DAILY@20 SC Last administered on 10/30/16 21 :46; Admin Dose 12 UNIT; Start 10/26/16 at 20:00 Citric Acid/ Sodium Citrate (Bicitra) 30 ml BID PO Last administered on 09:00; Admin Dose 30 ML; Start 10/26/16 at 10:30 Sodium Hypochlorite (Dakin'S (1/4 Strength)) 1 applic DAILY IRR Last administered on 11/01/16 10:30; Admin Dose 1 APPLIC; Start 10/27/16 at 09:00 Insulin Aspart (Novolog Insulin Pen) NOVOLOG *MILD* ALGORI... Q6 SC Last administered on 10/29/16 17:51; Admin Dose 1 UNIT; Start 10/29/16 at 12:00 Linezolid 600 mg 600 mg BID PO Last administered on 11/01/16 10:21; Admin Dose 600 MG; Start 10/30/16 at 21:00 Colistimethate Sodium/Sodium Chloride (Coly-Mycin/NS) 100 ml @ 200 mls/hr Q12 IVPB Last administered on 11/01/16 10:45; Admin Dose 200 MLS/HR; Start at 21:00 Non-Formulary Medication 10 ml QID GTB Last administered on 11/01/16 10:45; Admin Dose 10 ML; Start 10/31/16 at 17:00 Procedures Procedures PROCEDURE: XR Chest. CLINICAL INDICATION: Preop TECHNIQUE: An AP view of the chest was obtained. COMPARISON: Chest x-ray dated 10/27/2016 FINDINGS: A tracheostomy tube is in place. There is a left upper extremity PICC line with tip near the cavoatrial junction. There is prominence of the interstitial and central pulmonary vascular markings with small bilateral pleural effusions. No focal airspace opacification or pneumothorax is seen. The cardiomediastinal silhouette is mildly enlarged . Calcifications are seen within the aortic arch. The osseous structures demonstrate senescent changes. IMPRESSION: 1. Findings suggestive of pulmonary vascular congestion with small bilateral pleural effusions. Findings are increased when compared to the prior examination. 2. Mild cardiomegaly and aortic atherosclerosis. 3. Tubes and lines, as described above. RPTAT: .Lorraine Sarabia MD, Date Time Electronically viewed and signed by .Lorraine Sarabia MD, MD on 11/01/2016 05 :37 ODALIS REYNA MD Nov 01, 2016 14:37
[2016-11-01] MEDS: DEXTROSE 50% 50 ML SYRINGE IV PRN (15:12)
--- NOTE | 2016-11-01 16:29 | CONS ---
Date/Time of Note Date/Time of Note DATE: 11/01/16 TIME: 16:28 Assessment/Plan Assessment/Plan Chief Complaint/Hosp Course SUBJECTIVE: No events overnight. The patient is nonverbal, lying comfortably in bed. MICROBIOLOGY: Blood culture growing Proteus and coagulase-negative staph species. Urine culture growing E. coli, Morganella morganii. Nares swab came back positive for MRSA. Sacral wound culture growing methicillin-resistant Staphylococcus and Acinetobacter baumannii, multi-drug resistant. ANTIMICROBIALS: Zyvox, Colistin INDWELLINGS: Trach, PEG, Ferreira, PICC line placed on 10/25/2016. PHYSICAL EXAMINATION: GENERAL: This is a fragile, chronically ill-appearing, elderly man who is lying comfortably in bed. HEENT: Head atraumatic, normocephalic. Sclerae anicteric. Buccal mucosa dry. NECK: Supple. Tracheostomy present. CHEST: Rise symmetrical. Breath sounds diminished to bases. HEART: S1, S2. ABDOMEN: Soft, bowel tones present. EXTREMITIES: Without cyanosis. Bilateral trace edema. ASSESSMENT: 1. Sepsis, status post shock. 2. Polymicrobial bacteremia. 3. Recurrent urinary tract infection with hematuria. 4. Sacral decubitus===> s/p debridement. 5. Methicillin-resistant Staphylococcus aureus nares colonization. 6. Recurrent hematuria. 7. Acute on chronic anemia==> s/p EGD/colonoscopy. PLAN: Clinically stable,continue abx, Bactroban to nares, local wound care as per surgery. Urology/GI rec-s, pending patho report [facility] staff Problems: Consultation Date/Type/Reason Admit Date/Time Oct 25, 2016 at 10:54 Initial Consult Date 10/25/16 Type of Consultation: id Referring Provider: DILIP ARELLANO MD Exam/Review of Systems Vital Signs Vitals Vital Signs Date Time Temp Pulse Resp B/P Pulse Ox O2 Delivery O2 Flow Rate FiO2 11/01/16 15:58 98.2 99 18 112/58 100 11/01/16 14:42 30 10/28/16 12:00 Mechanical Ventilator Intake and Output 10/31/16 10/31/16 11/01/16 15:00 23:00 07:00 Intake Total 100 ml 440 ml Output Total 900 ml 400 ml Balance -800 ml 40 ml Results Result Diagram: 11/01/16 0542 11/01/16 0542 Results 24 hrs Laboratory Tests Test 10/31/16 17:26 10/31/16 17:51 10/31/16 18:14 10/31/16 18:42 Bedside Glucose 63 L 62 L 101 99 Test 10/31/16 20:07 11/01/16 00:24 11/01/16 05:42 11/01/16 06:13 Bedside Glucose 100 100 102 White Blood Count 17.4 H Red Blood Count 2.76 L Hemoglobin 7.4 L Hematocrit 24.3 L Mean Corpuscular Volume 88.0 Mean Corpuscular Hemoglobin 26.8 L Mean Corpuscular Hemoglobin Concent 30.5 L Red Cell Distribution Width 17.7 H Platelet Count 146 Mean Platelet Volume 12.4 H Neutrophils % 79.9 H Lymphocytes % 13.9 L Monocytes % 3.5 Eosinophils % 1.6 Basophils % 0.3 Nucleated Red Blood Cells % 0.0 Neutrophils # 13.9 H Lymphocytes # 2.4 Monocytes # 0.6 Eosinophils # 0.3 Basophils # 0.1 Nucleated Red Blood Cells # 0.0 Sodium Level 141 Potassium Level 3.6 Chloride Level 116 H Carbon Dioxide Level 22 Anion Gap 7 L Blood Urea Nitrogen 22 H Creatinine 0.59 L Glucose Level 98 Calcium Level 7.5 L Test 11/01/16 08:58 11/01/16 12:32 11/01/16 15:10 11/01/16 15:27 Bedside Glucose 81 90 67 L 115 Test 11/01/16 15:44 Bedside Glucose 109 Medications Medications Current Medications Ondansetron HCl (Zofran Inj) 4 mg Q6H PRN IV NAUSEA AND/OR VOMITING Last administered on 10/27/16t 13:51; Admin Dose 4 MG; Start 10/25/16 at 11:00 Nitroglycerin (Nitroglycerin (Sl Tab) 0.4 Mg) 1 tab Q5M PRN SL CHEST PAIN; Start 10/25/16 at 11:00 Acetaminophen (Tylenol Tab) 650 mg Q6H PRN PO PAIN LEVEL 1-3 OR FEVER; Start at 11:00 Acetaminophen (Tylenol Supp) 650 mg Q4H PRN [place] PAIN LEVEL 1-3 OR FEVER; Start 10/25/16 at 11:00 Docusate Sodium (Colace) 100 mg Q12H PRN PO CONSTIPATION; Start 10/25/16 at 11: 00 Bisacodyl (Dulcolax Supp) 10 mg DAILY PRN [place] CONSTIPATION; Start 10/25/16 at 11: 00 Amiodarone HCl (Cordarone) 400 mg BID GTB Last administered on 11/01/16 10:22 ; Admin Dose 400 MG; Start 10/25/16 at 21:00 Ascorbic Acid (Vitamin C) 500 mg DAILY GTB Last administered on 11/01/16 10:21 ; Admin Dose 500 MG; Start 10/26/16 at 09:00 Chlorhexidine Gluconate (Peridex) 15 ml Q12 MM Last administered on 11/01/16 10:29; Admin Dose 15 ML; Start 10/25/16 at 21:00 Collagenase (Santyl) 1 applic DAILY TOP Last administered on 11/01/16 10:46; Admin Dose 1 APPLIC; Start 10/26/16 at 09:00 Ferrous Sulfate (Feosol Liquid Cup) 330 mg DAILY GTB Last administered on 10:29; Admin Dose 330 MG; Start 10/26/16 at 09:00 Multivitamins Therapeutic (Theragran) 1 tab DAILY GTB Last administered on 11/01 10:20; Admin Dose 1 TAB; Start 10/26/16 at 09:00 Lactobacillus Acidoph/Bulgaricus (Floranex) 1 tab BID PO Last administered on 10:45; Admin Dose 1 TAB; Start 10/25/16 at 21:00 Fenofibrate (Tricor) 145 mg DAILY PO Last administered on 11/01/16 10:20; Admin Dose 145 MG; Start 10/26/16 at 09:00 IV Flush (NS 10 ml) 10 ml PRN PRN IV IV PROTOCOL; Start 10/25/16 at 11:30 Atorvastatin Calcium (Lipitor) 20 mg HS PO Last administered on 10/31/16 20:24 ; Admin Dose 20 MG; Start 10/25/16 at 21:00 Pantoprazole (Protonix Iv) 40 mg BID IV Last administered on 11/01/16 10:29; Admin Dose 40 MG; Start 10/25/16 at 21:00 Miscellaneous Information 1 ea NOTE XX ; Start 10/26/16 at 09:30 Glucose (Glutose) 15 gm Q15M PRN PO DECREASED GLUCOSE; Start 10/26/16 at 09:30 Glucose (Glutose) 22.5 gm Q15M PRN PO DECREASED GLUCOSE; Start 10/26/16 at 09:30 Dextrose (D50w Syringe) 25 ml Q15M PRN IV DECREASED GLUCOSE Last administered on 11/01/16 15:12; Admin Dose 25 ML; Start 10/26/16 at 09:30 Dextrose (D50w Syringe) 50 ml Q15M PRN IV DECREASED GLUCOSE; Start 10/26/16 at 09:30 Glucagon (Glucagen) 1 mg Q15M PRN IM DECREASED GLUCOSE; Start 10/26/16 at 09:30 Glucose (Glutose) 15 gm Q15M PRN BUCCAL DECREASED GLUCOSE; Start 10/26/16 at 09: 30 Insulin Glargine (Lantus) 12 unit DAILY@20 SC Last administered on 10/30/16 21 :46; Admin Dose 12 UNIT; Start 10/26/16 at 20:00 Sodium Hypochlorite (Dakin'S (1/4 Strength)) 1 applic DAILY IRR Last administered on 11/01/16 10:30; Admin Dose 1 APPLIC; Start 10/27/16 at 09:00 Insulin Aspart (Novolog Insulin Pen) NOVOLOG *MILD* ALGORI... Q6 SC Last administered on 10/29/16 17:51; Admin Dose 1 UNIT; Start 10/29/16 at 12:00 Linezolid 600 mg 600 mg BID PO Last administered on 11/01/16 10:21; Admin Dose 600 MG; Start 10/30/16 at 21:00 Colistimethate Sodium/Sodium Chloride (Coly-Mycin/NS) 100 ml @ 200 mls/hr Q12 IVPB Last administered on 11/01/16 10:45; Admin Dose 200 MLS/HR; Start at 21:00 Non-Formulary Medication 10 ml QID GTB Last administered on 11/01/16 10:45; Admin Dose 10 ML; Start 10/31/16 at 17:00 ADITYA CALLAHAN NP Nov 01, 2016 16:29
--- NOTE | 2016-11-01 17:05 | CONS ---
Date/Time of Note Date/Time of Note DATE: 11/01/16 TIME: 17:03 Assessment/Plan Assessment/Plan Additional Assessment/Plan 76 yo Male with 1) S/p Septic Shock 2nd to UTI 2) Severe Anemia 3) THEO on likely CKD, Pre-Renal Azotemia, Improving 4) Hyperkalemia- Resolved 5) Metabolic Acidosis- Improved 6) VDRF, S/p Tracheostomy 7) Dysphagia, S/p PEG 8) S/p wound debridement Renal function continues to improve with current treatment CXR reviewed, Diuretic Rx as needed, when BP more stable. Borderline especially after procedure Repeat after PRBC transfusion. Will Cont to monitor UO, Electrolytes and renal function Consultation Date/Type/Reason Admit Date/Time Oct 25, 2016 at 10:54 Initial Consult Date 10/25/16 Type of Consultation: Renal Referring Provider: DILIP ARELLANO MD 24 HR Interval Summary Free Text/Dictation Recieving PRBC transfusion, S/p Wound debridement Exam/Review of Systems Vital Signs Vitals Vital Signs Date Time Temp Pulse Resp B/P Pulse Ox O2 Delivery O2 Flow Rate FiO2 11/01/16 16:31 94 11/01/16 15:58 98.2 18 112/58 100 11/01/16 14:42 30 10/28/16 12:00 Mechanical Ventilator Intake and Output 10/31/16 10/31/16 11/01/16 15:00 23:00 07:00 Intake Total 100 ml 440 ml Output Total 900 ml 400 ml Balance -800 ml 40 ml Exam Constitutional: alert, No distress ENMT: mucosa pink and moist Respiratory: crackles/rales, other (Vent) Cardiovascular: edema, regular rate and rhythm Gastrointestinal: non-tender, soft Results Result Diagram: 11/01/16 0542 11/01/16 0542 Results 24 hrs Laboratory Tests Test 10/31/16 17:26 10/31/16 17:51 10/31/16 18:14 10/31/16 18:42 Bedside Glucose 63 L 62 L 101 99 Test 10/31/16 20:07 11/01/16 00:24 11/01/16 05:42 11/01/16 06:13 Bedside Glucose 100 100 102 White Blood Count 17.4 H Red Blood Count 2.76 L Hemoglobin 7.4 L Hematocrit 24.3 L Mean Corpuscular Volume 88.0 Mean Corpuscular Hemoglobin 26.8 L Mean Corpuscular Hemoglobin Concent 30.5 L Red Cell Distribution Width 17.7 H Platelet Count 146 Mean Platelet Volume 12.4 H Neutrophils % 79.9 H Lymphocytes % 13.9 L Monocytes % 3.5 Eosinophils % 1.6 Basophils % 0.3 Nucleated Red Blood Cells % 0.0 Neutrophils # 13.9 H Lymphocytes # 2.4 Monocytes # 0.6 Eosinophils # 0.3 Basophils # 0.1 Nucleated Red Blood Cells # 0.0 Sodium Level 141 Potassium Level 3.6 Chloride Level 116 H Carbon Dioxide Level 22 Anion Gap 7 L Blood Urea Nitrogen 22 H Creatinine 0.59 L Glucose Level 98 Calcium Level 7.5 L Test 11/01/16 08:58 11/01/16 12:32 11/01/16 15:10 11/01/16 15:27 Bedside Glucose 81 90 67 L 115 Test 11/01/16 15:44 Bedside Glucose 109 Medications Medications Current Medications Ondansetron HCl (Zofran Inj) 4 mg Q6H PRN IV NAUSEA AND/OR VOMITING Last administered on 10/27/16 13:51; Admin Dose 4 MG; Start 10/25/16 at 11:00 Nitroglycerin (Nitroglycerin (Sl Tab) 0.4 Mg) 1 tab Q5M PRN SL CHEST PAIN; Start 10/25/16 at 11:00 Acetaminophen (Tylenol Tab) 650 mg Q6H PRN PO PAIN LEVEL 1-3 OR FEVER; Start at 11:00 Acetaminophen (Tylenol Supp) 650 mg Q4H PRN [place] PAIN LEVEL 1-3 OR FEVER; Start 10/25/16 at 11:00 Docusate Sodium (Colace) 100 mg Q12H PRN PO CONSTIPATION; Start 10/25/16 at 11: 00 Bisacodyl (Dulcolax Supp) 10 mg DAILY PRN [place] CONSTIPATION; Start 10/25/16 at 11: 00 Amiodarone HCl (Cordarone) 400 mg BID GTB Last administered on 11/01/16 10:22 ; Admin Dose 400 MG; Start 10/25/16 at 21:00 Ascorbic Acid (Vitamin C) 500 mg DAILY GTB Last administered on 11/01/16 10:21 ; Admin Dose 500 MG; Start 10/26/16 at 09:00 Chlorhexidine Gluconate (Peridex) 15 ml Q12 MM Last administered on 11/01/16 10:29; Admin Dose 15 ML; Start 10/25/16 at 21:00 Collagenase (Santyl) 1 applic DAILY TOP Last administered on 11/01/16 10:46; Admin Dose 1 APPLIC; Start 10/26/16 at 09:00 Ferrous Sulfate (Feosol Liquid Cup) 330 mg DAILY GTB Last administered on 10:29; Admin Dose 330 MG; Start 10/26/16 at 09:00 Multivitamins Therapeutic (Theragran) 1 tab DAILY GTB Last administered on 11/01 10:20; Admin Dose 1 TAB; Start 10/26/16 at 09:00 Lactobacillus Acidoph/Bulgaricus (Floranex) 1 tab BID PO Last administered on 10:45; Admin Dose 1 TAB; Start 10/25/16 at 21:00 Fenofibrate (Tricor) 145 mg DAILY PO Last administered on 11/01/16 10:20; Admin Dose 145 MG; Start 10/26/16 at 09:00 IV Flush (NS 10 ml) 10 ml PRN PRN IV IV PROTOCOL; Start 10/25/16 at 11:30 Atorvastatin Calcium (Lipitor) 20 mg HS PO Last administered on 10/31/16 20:24 ; Admin Dose 20 MG; Start 10/25/16 at 21:00 Pantoprazole (Protonix Iv) 40 mg BID IV Last administered on 11/01/16 10:29; Admin Dose 40 MG; Start 10/25/16 at 21:00 Miscellaneous Information 1 ea NOTE XX ; Start 10/26/16 at 09:30 Glucose (Glutose) 15 gm Q15M PRN PO DECREASED GLUCOSE; Start 10/26/16 at 09:30 Glucose (Glutose) 22.5 gm Q15M PRN PO DECREASED GLUCOSE; Start 10/26/16 at 09:30 Dextrose (D50w Syringe) 25 ml Q15M PRN IV DECREASED GLUCOSE Last administered on 11/01/16 15:12; Admin Dose 25 ML; Start 10/26/16 at 09:30 Dextrose (D50w Syringe) 50 ml Q15M PRN IV DECREASED GLUCOSE; Start 10/26/16 at 09:30 Glucagon (Glucagen) 1 mg Q15M PRN IM DECREASED GLUCOSE; Start 10/26/16 at 09:30 Glucose (Glutose) 15 gm Q15M PRN BUCCAL DECREASED GLUCOSE; Start 10/26/16 at 09: 30 Insulin Glargine (Lantus) 12 unit DAILY@20 SC Last administered on 10/30/16 21 :46; Admin Dose 12 UNIT; Start 10/26/16 at 20:00 Sodium Hypochlorite (Dakin'S (/ Strength)) 1 applic DAILY IRR Last administered on 11/01/16 10:30; Admin Dose 1 APPLIC; Start 10/27/16 at 09:00 Insulin Aspart (Novolog Insulin Pen) NOVOLOG *MILD* ALGORI... Q6 SC Last administered on 10/29/16 17:51; Admin Dose 1 UNIT; Start 10/29/16 at 12:00 Linezolid 600 mg 600 mg BID PO Last administered on 11/01/16 10:21; Admin Dose 600 MG; Start 10/30/16 at 21:00 Colistimethate Sodium/Sodium Chloride (Coly-Mycin/NS) 100 ml @ 200 mls/hr Q12 IVPB Last administered on 11/01/16 10:45; Admin Dose 200 MLS/HR; Start at 21:00 Non-Formulary Medication 10 ml QID GTB Last administered on 11/01/16 10:45; Admin Dose 10 ML; Start 10/31/16 at 17:00 ODALIS REYNA MD Nov 01, 2016 17:05
[2016-11-01] MEDS: INSULIN GLARGINE [LANtus] 3 ML PEN SC SCH (20:00)
[2016-11-01] MEDS: ATORVASTATIN 20 MG TAB PO SCH (21:40)
[2016-11-01 23:38] LABS: HEMATOCRIT 28.8 % (42.0-52.0); HEMOGLOBIN 8.6 g/dl (14.0-18.0)
[2016-11-02] VITALS (24 sets, daily range): BP systolic 73–103; BP diastolic 37–54; PULSE 85–103; RESP 12–20
[2016-11-02] MEDS: INSULIN ASPART [NOVOLOG] 3 ML PEN SC SCH ×4 (06:00→18:00)
[2016-11-02 06:45] LABS: ADD SCAN DIFF NO
[2016-11-02 06:48] LABS: BASOPHILS % 0.2 % (0.0-2.0); EOSINOPHILS # 0.1 10^3/ul (0.0-0.5); EOSINOPHILS % 0.8 % (0.0-7.0); HEMATOCRIT 27.6 % (42.0-52.0); HEMOGLOBIN 8.3 g/dl (14.0-18.0); LYMPHOCYTES % 17.9 % (15.0-51.0); MEAN CORPUSCULAR HEMOGLOBIN 26.8 pg (29.0-33.0); MEAN CORPUSCULAR HGB CONC 30.1 g/dl (32.0-37.0); MEAN PLATELET VOLUME 12.9 fl (7.4-10.4); MONOCYTE # 0.7 10^3/ul (0.3-0.9); MONOCYTES % 4.1 % (0.0-11.0); NEUTROPHILS % 76.4 % (39.0-77.0); PLATELET COUNT 143 10^3/UL (140-415); RED CELL DISTRIBUTION WIDTH 17.9 % (11.5-14.5)
[2016-11-02 06:57] LABS: POTASSIUM 3.4 mmol/L (3.5-5.1)
[2016-11-02 07:00] LABS: CREATININE 0.61 mg/dl (0.61-1.24)
[2016-11-02 07:01] LABS: CALCIUM 7.7 mg/dl (8.4-10.2); MAGNESIUM 1.4 mg/dl (1.7-2.5)
--- NOTE | 2016-11-02 08:11 | PN ---
Date/Time of Note Date/Time of Note DATE: 11/02/16 TIME: 08:11 Assessment/Plan VTE Prophylaxis VTE Prophylaxis Intervention: SCD's Lines/Catheters IV Catheter Type (from Nrs): PICC Line Central line still needed: No Urinary Cath still in place: Yes Reason Cath still needed: urinary retention Assessment/Plan Assessment/Plan Septic shock Acute blood loss anemia Elevated troponin likely secondary to above Respiratory failure Paroxysmal atrial fibrillation, currently sinus rhythm Paroxysmal atrial tachycardia Preserved ejection fraction Acute kidney injury -Blood pressure trend improved, IV fluids as per nephrology. Continue to hold any antihypertensives at the current time. No anticoagulation given history of recurrent hematuria - possibly in the future Subjective 24 Hr Interval Summary Free Text/Dictation the patient with no change Exam/Review of Systems Vital Signs Vitals Vital Signs Date Time Temp Pulse Resp B/P Pulse Ox O2 Delivery O2 Flow Rate FiO2 11/02/16 07:07 98.5 95 18 83/53 95 11/02/16 05:22 30 11/01/16 15:44 Mechanical Ventilator Intake and Output 11/01/16 11/01/16 11/02/16 15:00 23:00 07:00 Intake Total 50 ml 730 ml 880 ml Output Total 2 ml 500 ml 900 ml Balance 48 ml 230 ml -20 ml Results Result Diagram: 11/02/16 0613 11/02/16 0613 Results 24 hrs Laboratory Tests Test 11/01/16 08:58 11/01/16 12:32 11/01/16 15:10 11/01/16 15:27 Bedside Glucose 81 90 67 L 115 Test 11/01/16 15:44 11/01/16 17:47 11/01/16 21:20 11/01/16 23:03 Bedside Glucose 109 85 94 Hemoglobin 8.6 L Hematocrit 28.8 L Test 11/02/16 01:06 11/02/16 05:00 11/02/16 06:13 Bedside Glucose 134 106 White Blood Count 17.0 H Red Blood Count 3.10 L Hemoglobin 8.3 L Hematocrit 27.6 L Mean Corpuscular Volume 89.0 Mean Corpuscular Hemoglobin 26.8 L Mean Corpuscular Hemoglobin Concent 30.1 L Red Cell Distribution Width 17.9 H Platelet Count 143 Mean Platelet Volume 12.9 H Neutrophils % 76.4 Lymphocytes % 17.9 Monocytes % 4.1 Eosinophils % 0.8 Basophils % 0.2 Nucleated Red Blood Cells % 0.0 Neutrophils # 13.0 H Lymphocytes # 3.0 H Monocytes # 0.7 Eosinophils # 0.1 Basophils # 0.0 Nucleated Red Blood Cells # 0.0 Sodium Level 141 Potassium Level 3.4 L Chloride Level 111 H Carbon Dioxide Level 21 Anion Gap 12 Blood Urea Nitrogen 20 Creatinine 0.61 Glucose Level 96 Calcium Level 7.7 L Magnesium Level 1.4 L Medications Medications Current Medications Ondansetron HCl (Zofran Inj) 4 mg Q6H PRN IV NAUSEA AND/OR VOMITING Last administered on 10/27/16 13:51; Admin Dose 4 MG; Start 10/25/16 at 11:00 Nitroglycerin (Nitroglycerin (Sl Tab) 0.4 Mg) 1 tab Q5M PRN SL CHEST PAIN; Start 10/25/16 at 11:00 Acetaminophen (Tylenol Tab) 650 mg Q6H PRN PO PAIN LEVEL 1-3 OR FEVER; Start at 11:00 Acetaminophen (Tylenol Supp) 650 mg Q4H PRN HI PAIN LEVEL 1-3 OR FEVER; Start 10/25/16 at 11:00 Docusate Sodium (Colace) 100 mg Q12H PRN PO CONSTIPATION; Start 10/25/16 at 11: 00 Bisacodyl (Dulcolax Supp) 10 mg DAILY PRN [place] CONSTIPATION; Start 10/25/16 at 11: 00 Amiodarone HCl (Cordarone) 400 mg BID GTB Last administered on 11/01/16 10:22 ; Admin Dose 400 MG; Start 10/25/16 at 21:00 Ascorbic Acid (Vitamin C) 500 mg DAILY GTB Last administered on 11/01/16 10:21 ; Admin Dose 500 MG; Start 10/26/16 at 09:00 Chlorhexidine Gluconate (Peridex) 15 ml Q12 MM Last administered on 11/01/16 21:41; Admin Dose 15 ML; Start 10/25/16 at 21:00 Collagenase (Santyl) 1 applic DAILY TOP Last administered on 11/01/16 10:46; Admin Dose 1 APPLIC; Start 10/26/16 at 09:00 Ferrous Sulfate (Feosol Liquid Cup) 330 mg DAILY GTB Last administered on 10:29; Admin Dose 330 MG; Start 10/26/16 at 09:00 Multivitamins Therapeutic (Theragran) 1 tab DAILY GTB Last administered on 11/01 10:20; Admin Dose 1 TAB; Start 10/26/16 at 09:00 Lactobacillus Acidoph/Bulgaricus (Floranex) 1 tab BID PO Last administered on 21:40; Admin Dose 1 TAB; Start 10/25/16 at 21:00 Fenofibrate (Tricor) 145 mg DAILY PO Last administered on 11/01/16 10:20; Admin Dose 145 MG; Start 10/26/16 at 09:00 IV Flush (NS 10 ml) 10 ml PRN PRN IV IV PROTOCOL; Start 10/25/16 at 11:30 Atorvastatin Calcium (Lipitor) 20 mg HS PO Last administered on 11/01/16 21:40 ; Admin Dose 20 MG; Start 10/25/16 at 21:00 Pantoprazole (Protonix Iv) 40 mg BID IV Last administered on 11/01/16 21:39; Admin Dose 40 MG; Start 10/25/16 at 21:00 Miscellaneous Information 1 ea NOTE XX ; Start 10/26/16 at 09:30 Glucose (Glutose) 15 gm Q15M PRN PO DECREASED GLUCOSE; Start 10/26/16 at 09:30 Glucose (Glutose) 22.5 gm Q15M PRN PO DECREASED GLUCOSE; Start 10/26/16 at 09:30 Dextrose (D50w Syringe) 25 ml Q15M PRN IV DECREASED GLUCOSE Last administered on 11/01/16 15:12; Admin Dose 25 ML; Start 10/26/16 at 09:30 Dextrose (D50w Syringe) 50 ml Q15M PRN IV DECREASED GLUCOSE; Start 10/26/16 at 09:30 Glucagon (Glucagen) 1 mg Q15M PRN IM DECREASED GLUCOSE; Start 10/26/16 at 09:30 Glucose (Glutose) 15 gm Q15M PRN BUCCAL DECREASED GLUCOSE; Start 10/26/16 at 09: 30 Insulin Glargine (Lantus) 12 unit DAILY@20 SC Last administered on 10/30/16 21 :46; Admin Dose 12 UNIT; Start 10/26/16 at 20:00 Sodium Hypochlorite (Dakin'S (/ Strength)) 1 applic DAILY IRR Last administered on 11/01/16 10:30; Admin Dose 1 APPLIC; Start 10/27/16 at 09:00 Insulin Aspart (Novolog Insulin Pen) NOVOLOG *MILD* ALGORI... Q6 SC Last administered on 10/29/16 17:51; Admin Dose 1 UNIT; Start 10/29/16 at 12:00 Linezolid 600 mg 600 mg BID PO Last administered on 11/01/16 21:40; Admin Dose 600 MG; Start 10/30/16 at 21:00 Colistimethate Sodium/Sodium Chloride (Coly-Mycin/NS) 100 ml @ 200 mls/hr Q12 IVPB Last administered on 11/01/16 21:54; Admin Dose 200 MLS/HR; Start at 21:00 Non-Formulary Medication 10 ml QID GTB Last administered on 11/01/16 21:39; Admin Dose 10 ML; Start 10/31/16 at 17:00 JORGE CAZARES MD Nov 02, 2016 08:11
[2016-11-02] MEDS: SODIUM HYPOCHLORITE 0.125% 473 ML BTL IRR SCH (09:00)
[2016-11-02] MEDS: LACTOBACILLUS CHEW TAB PO SCH ×2 (09:00→20:47)
[2016-11-02] MEDS: ZYVOX 600 MG TAB PO SCH ×2 (09:00→20:48)
[2016-11-02] MEDS: AMIODARONE 200 MG TAB GTB SCH ×2 (09:00→20:47)
[2016-11-02] MEDS: ASCORBIC ACID 500 MG TAB GTB SCH (09:00)
[2016-11-02] MEDS: FENOFIBRATE 145 MG TAB PO SCH (09:00)
[2016-11-02] MEDS: CHLORHEXIDINE GLUCONATE 15 ML UD CUP MM SCH ×2 (09:00→20:47)
[2016-11-02] MEDS: COLLAGENASE 30 GM TUBE TOP SCH (09:00)
[2016-11-02] MEDS: FERROUS SULFATE 60 MG/ML 5ML CUP GTB SCH (09:00)
[2016-11-02] MEDS: SULFASALAZINE GTB SCH ×4 (09:00→20:46)
[2016-11-02] MEDS: MULTIVITAMINS THERAPEUTIC TAB GTB SCH (09:00)
--- NOTE | 2016-11-02 10:36 | CONS ---
Date/Time of Note Date/Time of Note DATE: 11/02/16 TIME: 10:33 Assessment/Plan Assessment/Plan Additional Assessment/Plan Ventilator settings; AC of 12, tidal volume 550, PEEP of 5, 30% FiO2. Assessment recommendations; 1. Patient admitted for UTI and sepsis with interval improvement. 2. Multi-infarct dementia. 3. Chronic respiratory failure, ventilator dependent. Continue current treatment. Patient can be discharged to [facility]. Consultation Date/Type/Reason Admit Date/Time Oct 25, 2016 at 10:54 Initial Consult Date 10/25/16 Type of Consultation: Pulmonary Referring Provider: DILIP ARELLANO MD 24 HR Interval Summary Free Text/Dictation Patient condition remains stable. Awaiting discharge to [facility] facility. Has remained hemodynamically stable. General exam; elderly male, on ventilator via tracheostomy awake but does not follow any commands. Exam/Review of Systems Vital Signs Vitals Vital Signs Date Time Temp Pulse Resp B/P Pulse Ox O2 Delivery O2 Flow Rate FiO2 11/02/16 09:15 90 13 98 30 11/02/16 07:07 98.5 83/53 11/01/16 15:44 Mechanical Ventilator Intake and Output 11/01/16 11/01/16 11/02/16 15:00 23:00 07:00 Intake Total 50 ml 730 ml 880 ml Output Total 2 ml 500 ml 900 ml Balance 48 ml 230 ml -20 ml Exam HEENT exam is; supple neck, no JVD. No lymphadenopathy. Midline trachea. No thyromegaly. Pupils are small bilaterally. Vision has fair dentition. No neck masses. Chest examination; diminished but clear breath sounds bilaterally tracheostomy in place with clean insertion site. S1-S2 audible, no murmurs. Regular rhythm. Abdomen examination; soft, G-tube in place. Nondistended. No organomegaly. Bowel sounds audible. Extremity exam is; no peripheral edema. Patient does have contractures involving all 4 extremities. RECONCILIATION CLERK exam is; patient is awake but does not follow any commands. Results Result Diagram: 11/02/16 0613 11/02/16 0613 Results 24 hrs Laboratory Tests Test 11/01/16 12:32 11/01/16 15:10 11/01/16 15:27 11/01/16 15:44 Bedside Glucose 90 67 L 115 109 Test 11/01/16 17:47 11/01/16 21:20 11/01/16 23:03 11/02/16 01:06 Bedside Glucose 85 94 134 Hemoglobin 8.6 L Hematocrit 28.8 L Test 11/02/16 05:00 11/02/16 06:13 Bedside Glucose 106 White Blood Count 17.0 H Red Blood Count 3.10 L Hemoglobin 8.3 L Hematocrit 27.6 L Mean Corpuscular Volume 89.0 Mean Corpuscular Hemoglobin 26.8 L Mean Corpuscular Hemoglobin Concent 30.1 L Red Cell Distribution Width 17.9 H Platelet Count 143 Mean Platelet Volume 12.9 H Neutrophils % 76.4 Lymphocytes % 17.9 Monocytes % 4.1 Eosinophils % 0.8 Basophils % 0.2 Nucleated Red Blood Cells % 0.0 Neutrophils # 13.0 H Lymphocytes # 3.0 H Monocytes # 0.7 Eosinophils # 0.1 Basophils # 0.0 Nucleated Red Blood Cells # 0.0 Sodium Level 141 Potassium Level 3.4 L Chloride Level 111 H Carbon Dioxide Level 21 Anion Gap 12 Blood Urea Nitrogen 20 Creatinine 0.61 Glucose Level 96 Calcium Level 7.7 L Magnesium Level 1.4 L Medications Medications Current Medications Ondansetron HCl (Zofran Inj) 4 mg Q6H PRN IV NAUSEA AND/OR VOMITING Last administered on 10/27/16 13:51; Admin Dose 4 MG; Start 10/25/16 at 11:00 Nitroglycerin (Nitroglycerin (Sl Tab) 0.4 Mg) 1 tab Q5M PRN SL CHEST PAIN; Start 10/25/16 at 11:00 Acetaminophen (Tylenol Tab) 650 mg Q6H PRN PO PAIN LEVEL 1-3 OR FEVER; Start at 11:00 Acetaminophen (Tylenol Supp) 650 mg Q4H PRN SD PAIN LEVEL 1-3 OR FEVER; Start 10/25/16 at 11:00 Docusate Sodium (Colace) 100 mg Q12H PRN PO CONSTIPATION; Start 10/25/16 at 11: 00 Bisacodyl (Dulcolax Supp) 10 mg DAILY PRN [place] CONSTIPATION; Start 10/25/16 at 11: 00 Amiodarone HCl (Cordarone) 400 mg BID GTB Last administered on 11/01/16 10:22 ; Admin Dose 400 MG; Start 10/25/16 at 21:00 Ascorbic Acid (Vitamin C) 500 mg DAILY GTB Last administered on 11/01/16 10:21 ; Admin Dose 500 MG; Start 10/26/16 at 09:00 Chlorhexidine Gluconate (Peridex) 15 ml Q12 MM Last administered on 11/01/16 21:41; Admin Dose 15 ML; Start 10/25/16 at 21:00 Collagenase (Santyl) 1 applic DAILY TOP Last administered on 11/01/16 10:46; Admin Dose 1 APPLIC; Start 10/26/16 at 09:00 Ferrous Sulfate (Feosol Liquid Cup) 330 mg DAILY GTB Last administered on 10:29; Admin Dose 330 MG; Start 10/26/16 at 09:00 Multivitamins Therapeutic (Theragran) 1 tab DAILY GTB Last administered on 11/01 10:20; Admin Dose 1 TAB; Start 10/26/16 at 09:00 Lactobacillus Acidoph/Bulgaricus (Floranex) 1 tab BID PO Last administered on 21:40; Admin Dose 1 TAB; Start 10/25/16 at 21:00 Fenofibrate (Tricor) 145 mg DAILY PO Last administered on 11/01/16 10:20; Admin Dose 145 MG; Start 10/26/16 at 09:00 IV Flush (NS 10 ml) 10 ml PRN PRN IV IV PROTOCOL; Start 10/25/16 at 11:30 Atorvastatin Calcium (Lipitor) 20 mg HS PO Last administered on 11/01/16 21:40 ; Admin Dose 20 MG; Start 10/25/16 at 21:00 Pantoprazole (Protonix Iv) 40 mg BID IV Last administered on 11/01/16 21:39; Admin Dose 40 MG; Start 10/25/16 at 21:00 Miscellaneous Information 1 ea NOTE XX ; Start 10/26/16 at 09:30 Glucose (Glutose) 15 gm Q15M PRN PO DECREASED GLUCOSE; Start 10/26/16 at 09:30 Glucose (Glutose) 22.5 gm Q15M PRN PO DECREASED GLUCOSE; Start 10/26/16 at 09:30 Dextrose (D50w Syringe) 25 ml Q15M PRN IV DECREASED GLUCOSE Last administered on 11/01/16 15:12; Admin Dose 25 ML; Start 10/26/16 at 09:30 Dextrose (D50w Syringe) 50 ml Q15M PRN IV DECREASED GLUCOSE; Start 10/26/16 at 09:30 Glucagon (Glucagen) 1 mg Q15M PRN IM DECREASED GLUCOSE; Start 10/26/16 at 09:30 Glucose (Glutose) 15 gm Q15M PRN BUCCAL DECREASED GLUCOSE; Start 10/26/16 at 09: 30 Insulin Glargine (Lantus) 12 unit DAILY@20 SC Last administered on 10/30/16 21 :46; Admin Dose 12 UNIT; Start 10/26/16 at 20:00 Sodium Hypochlorite (Dakin'S (07/26 Strength)) 1 applic DAILY IRR Last administered on 11/01/16 10:30; Admin Dose 1 APPLIC; Start 10/27/16 at 09:00 Insulin Aspart (Novolog Insulin Pen) NOVOLOG *MILD* ALGORI... Q6 SC Last administered on 10/29/16 17:51; Admin Dose 1 UNIT; Start 10/29/16 at 12:00 Linezolid 600 mg 600 mg BID PO Last administered on 11/01/16 21:40; Admin Dose 600 MG; Start 10/30/16 at 21:00 Colistimethate Sodium/Sodium Chloride (Coly-Mycin/NS) 100 ml @ 200 mls/hr Q12 IVPB Last administered on 11/01/16 21:54; Admin Dose 200 MLS/HR; Start at 21:00 Non-Formulary Medication 10 ml QID GTB Last administered on 11/01/16 21:39; Admin Dose 10 ML; Start 10/31/16 at 17:00 JORGE ROBLES Nov 02, 2016 10:35
[2016-11-02] MEDS: PANTOPRAZOLE 40 MG INJ IV SCH ×2 (12:07→20:48)
[2016-11-02] MEDS: COLISTIMETHATE 75 MG in SOD CHLORIDE 0.9% 100 ML IVPB SCH ×2 (12:07→20:47)
[2016-11-02] MEDS: D5W-0.45 NACL + KCL 20 MEQ 1,000 ML IV SCH (12:44)
--- NOTE | 2016-11-02 15:22 | PN ---
DATE: 11/02/2016 INFECTIOUS DISEASE PROGRESS NOTE SUBJECTIVE: No events overnight. No fevers. The patient is nonverbal, non-communicative. Per rep ort, G-tube was dislodged. The patient is now n.p.o. WBC today 17, platelets 143, neutrophils 76.4, BUN 20, creatinine 0.61. MICROBIOLOGY: Sacral wound on admission grew MRSA, Acinetobacter baumannii. Urine culture grew E. coli, Morganella. Blood cultures grew coagulase-negative staph and Proteus mirabilis. Repeat blood cultures negative. MRSA swab came back positive. INDWELLINGS: Trach, Ferreira. PICC line placed on 10/25/2016. ANTIMICROBIALS: The patient is on: 1. Zyvox. 2. Colistin. 3. He is also getting topical Bactroban to the nares. PHYSICAL EXAMINATION: GENERAL: This is a chronically ill-appearing, elderly man, who is in no distress. HEENT: Head atraumatic, normocephalic. Sclerae anicteric. Buccal mucosa dry. NECK: Supple. Tracheostomy present. CHEST: Chest rise is symmetrical. Breath sounds diminished. HEART: S1, S2. ABDOMEN: Soft. G-tube site with some leakage. EXTREMITIES: Without cyanosis. ASSESSMENT: 1. Sepsis with polymicrobial bacteremia. 2. Recurrent urinary tract infections. 3. Sacral decubitus, status post debridement. 4. Methicillin-resistant Staphylococcus aureus nares colonization. 5. Anemia, status post esophagogastroduodenoscopy and colonoscopy. No evidence for malignancy, per pathology report. PLAN: The patient remains stable. Gastroenterology on the case. He is also seen by pulmonary and cardiology teams. He is covered with appropriate antimicrobials. Renal function within normal limi ts. He will need a new PEG placement. Dictated By: ADITYA CALLAHAN [employer]WARE DEVELOPER for [employer] Conf#: [id number] DID#: [id number]
--- NOTE | 2016-11-02 15:37 | PN ---
Date/Time of Note Date/Time of Note DATE: 11/02/16 TIME: 15:30 Assessment/Plan VTE Prophylaxis VTE Prophylaxis Intervention: SCD's Lines/Catheters IV [facility]ter Type (from [email or web address] PICC Line Central line still needed: Yes Urinary Cath still in place: Yes Reason Cath still needed: urinary retention Assessment/Plan Chief Complaint/Hosp Course Problems: Assessment/Plan Assessment/Plan * Sepsis resolving * Anemia GI bleed lower vs tumors vs others 10/27/2016 EGD Gastrostomy tube in the body of the stomach. Otherwise, normal esophagogastroduodenoscopy with no bleeding site identified. 10/31/2016 Colonoscopy * 1. An 8 mm ulcer in the proximal descending colon, biopsied. 2. A 4 cm ulcer in the cecum, biopsied. 3. Normal ileum. 4. Otherwise, normal colonic mucosa. 5. Large internal hemorrhoids. * Ventilator dependent respiratory failure * Decubitus ulcer sacral * Diabetes mellitus * History of Hypertension * Dyslipidemia * Plan * continue present management * will check for thapa Gastrostomy tube location * hold tube feeding Subjective 24 Hr Interval Summary Free Text/Dictation * course reviewed with RN * thapa catheter g tube found on the dressing site and allegedly reinserted by RN on duty * patient seen and examined' * tube feeding on hold * Colonoscopy 10/21/2016 * 1. An 8 mm ulcer in the proximal descending colon, biopsied. 2. A 4 cm ulcer in the cecum, biopsied. 3. Normal ileum. 4. Otherwise, normal colonic mucosa. 5. Large internal hemorrhoids. Exam/Review of Systems Vital Signs Vitals Vital Signs Date Time Temp Pulse Resp B/P Pulse Ox O2 Delivery O2 Flow Rate FiO2 11/02/16 15:05 98.5 88 18 86/50 97 11/02/16 13:40 30 11/01/16 15:44 Mechanical Ventilator Intake and Output 11/01/16 11/01/16 11/02/16 15:00 23:00 07:00 Intake Total 50 ml 730 ml 880 ml Output Total 2 ml 500 ml 900 ml Balance 48 ml 230 ml -20 ml Exam Constitutional: frail, non-verbal Neck: supple Respiratory: diminished breath sounds, other (trach to vent) Cardiovascular: nl pulses, regular rate and rhythm Gastrointestinal: non-tender, other (thapa catheter g tube in abdomen,minimal drainage), soft Results Result Diagram: 11/02/16 0613 11/02/16 0613 Results 24 hrs Laboratory Tests Test 11/01/16 15:44 11/01/16 17:47 11/01/16 21:20 11/01/16 23:03 Bedside Glucose 109 85 94 Hemoglobin 8.6 L Hematocrit 28.8 L Test 11/02/16 01:06 11/02/16 05:00 11/02/16 06:13 11/02/16 12:05 Bedside Glucose 134 106 72 White Blood Count 17.0 H Red Blood Count 3.10 L Hemoglobin 8.3 L Hematocrit 27.6 L Mean Corpuscular Volume 89.0 Mean Corpuscular Hemoglobin 26.8 L Mean Corpuscular Hemoglobin Concent 30.1 L Red Cell Distribution Width 17.9 H Platelet Count 143 Mean Platelet Volume 12.9 H Neutrophils % 76.4 Lymphocytes % 17.9 Monocytes % 4.1 Eosinophils % 0.8 Basophils % 0.2 Nucleated Red Blood Cells % 0.0 Neutrophils # 13.0 H Lymphocytes # 3.0 H Monocytes # 0.7 Eosinophils # 0.1 Basophils # 0.0 Nucleated Red Blood Cells # 0.0 Sodium Level 141 Potassium Level 3.4 L Chloride Level 111 H Carbon Dioxide Level 21 Anion Gap 12 Blood Urea Nitrogen 20 Creatinine 0.61 Glucose Level 96 Calcium Level 7.7 L Magnesium Level 1.4 L Medications Medications Current Medications Ondansetron HCl (Zofran Inj) 4 mg Q6H PRN IV NAUSEA AND/OR VOMITING Last administered on 10/27/16t 13:51; Admin Dose 4 MG; Start 10/25/16 at 11:00 Nitroglycerin (Nitroglycerin (Sl Tab) 0.4 Mg) 1 tab Q5M PRN SL CHEST PAIN; Start 10/25/16 at 11:00 Acetaminophen (Tylenol Tab) 650 mg Q6H PRN PO PAIN LEVEL 1-3 OR FEVER; Start at 11:00 Acetaminophen (Tylenol Supp) 650 mg Q4H PRN [place] PAIN LEVEL 1-3 OR FEVER; Start 10/25/16 at 11:00 Docusate Sodium (Colace) 100 mg Q12H PRN PO CONSTIPATION; Start 10/25/16 at 11: 00 Bisacodyl (Dulcolax Supp) 10 mg DAILY PRN [place] CONSTIPATION; Start 10/25/16 at 11: 00 Amiodarone HCl (Cordarone) 400 mg BID GTB Last administered on 11/01/16 10:22 ; Admin Dose 400 MG; Start 10/25/16 at 21:00 Ascorbic Acid (Vitamin C) 500 mg DAILY GTB Last administered on 11/01/16 10:21 ; Admin Dose 500 MG; Start 10/26/16 at 09:00 Chlorhexidine Gluconate (Peridex) 15 ml Q12 MM Last administered on 11/02/16 09:00; Admin Dose 15 ML; Start 10/25/16 at 21:00 Collagenase (Santyl) 1 applic DAILY TOP Last administered on 11/01/16 10:46; Admin Dose 1 APPLIC; Start 10/26/16 at 09:00 Ferrous Sulfate (Feosol Liquid Cup) 330 mg DAILY GTB Last administered on 10:29; Admin Dose 330 MG; Start 10/26/16 at 09:00 Multivitamins Therapeutic (Theragran) 1 tab DAILY GTB Last administered on 11/01 10:20; Admin Dose 1 TAB; Start 10/26/16 at 09:00 Lactobacillus Acidoph/Bulgaricus (Floranex) 1 tab BID PO Last administered on 21:40; Admin Dose 1 TAB; Start 10/25/16 at 21:00 Fenofibrate (Tricor) 145 mg DAILY PO Last administered on 11/01/16 10:20; Admin Dose 145 MG; Start 10/26/16 at 09:00 IV Flush (NS 10 ml) 10 ml PRN PRN IV IV PROTOCOL; Start 10/25/16 at 11:30 Atorvastatin Calcium (Lipitor) 20 mg HS PO Last administered on 11/01/16 21:40 ; Admin Dose 20 MG; Start 10/25/16 at 21:00 Pantoprazole (Protonix Iv) 40 mg BID IV Last administered on 11/02/16 12:07; Admin Dose 40 MG; Start 10/25/16 at 21:00 Miscellaneous Information 1 ea NOTE XX ; Start 10/26/16 at 09:30 Glucose (Glutose) 15 gm Q15M PRN PO DECREASED GLUCOSE; Start 10/26/16 at 09:30 Glucose (Glutose) 22.5 gm Q15M PRN PO DECREASED GLUCOSE; Start 10/26/16 at 09:30 Dextrose (D50w Syringe) 25 ml Q15M PRN IV DECREASED GLUCOSE Last administered on 11/01/16 15:12; Admin Dose 25 ML; Start 10/26/16 at 09:30 Dextrose (D50w Syringe) 50 ml Q15M PRN IV DECREASED GLUCOSE; Start 10/26/16 at 09:30 Glucagon (Glucagen) 1 mg Q15M PRN IM DECREASED GLUCOSE; Start 10/26/16 at 09:30 Glucose (Glutose) 15 gm Q15M PRN BUCCAL DECREASED GLUCOSE; Start 10/26/16 at 09: 30 Insulin Glargine (Lantus) 12 unit DAILY@20 SC Last administered on 10/30/16 21 :46; Admin Dose 12 UNIT; Start 10/26/16 at 20:00 Sodium Hypochlorite (Dakin'S (1/4 Strength)) 1 applic DAILY IRR Last administered on 11/02/16 09:00; Admin Dose 1 APPLIC; Start 10/27/16 at 09:00 Insulin Aspart (Novolog Insulin Pen) NOVOLOG *MILD* ALGORI... Q6 SC Last administered on 10/29/16 17:51; Admin Dose 1 UNIT; Start 10/29/16 at 12:00 Linezolid 600 mg 600 mg BID PO Last administered on 11/01/16 21:40; Admin Dose 600 MG; Start 10/30/16 at 21:00 Colistimethate Sodium/Sodium Chloride (Coly-Mycin/NS) 100 ml @ 200 mls/hr Q12 IVPB Last administered on 11/02/16 12:07; Admin Dose 200 MLS/HR; Start at 21:00 Non-Formulary Medication 10 ml 10 ml QID GTB Last administered on 11/01/16 21: 39; Admin Dose 10 ML; Start 10/31/16 at 17:00 Potassium Chloride/Dextrose/ Sod Cl (D5-1/2ns + KCl 20 Meq) 1,000 ml @ 60 mls/ hr [id number] IV Last administered on 11/02/16 12:44; Admin Dose 60 MLS/HR; Start 11/02/16 at 12:30 Mupirocin 1 applic 1 applic BID TOP ; Start 11/02/16 at 16:30 Metronidazole (Flagyl 500 Mg (Pmx)) 100 ml @ 100 mls/hr Q8 IVPB ; Start at 15:30 RAYMON BETANCOURT MD Nov 02, 2016 15:37
--- NOTE | 2016-11-02 16:03 | PN ---
Date/Time of Note Date/Time of Note DATE: 11/02/16 TIME: 16:00 Assessment/Plan VTE Prophylaxis VTE Prophylaxis Intervention: other Lines/Catheters IV Catheter Type (from [facility]): PICC Line Central line still needed: Yes Urinary Cath still in place: Yes Reason Cath still needed: other (indicate) Assessment/Plan Chief Complaint/Hosp Course ASSESSMENT AND PLAN: 1. Sepsis, likely secondary to urinary tract infection Status post pressors, off pressors at this time Continue Zosyn and Aztreonam. Infectious disease doctor has been consulted. 2. Ventilator-dependent respiratory failure. Continue vent management by lead injection mold technician. 3. Non-ST myocardial infarction with elevated troponin, likely demand ischemia secondary to anemia. Follow-up cardiology recommendations 4. Anemia, secondary to GI bleed positive guaiac. credit risk management director consulted , continue IV PPI. Status post 2 units of packed red blood cell, Plan to transfuse 1 unit of PRBC today . Follow hemoglobin hematocrit. No evidence of bleeding on upper endoscopy. Colonoscopy demonstrated 2 ulcers colon , continue medical management 5. Severe dehydration, improving, status post 2 units of packed red blood cells and IV fluid. Follow renal panel. 6. Acute renal insufficiency. Secondary to #5 as above, nephrology has been consulted. 7. Diabetic mellitus . Place the patient on Lantus, continue insulin sliding scale. 8. History of essential hypertension. At this time, the patient is hypotensive secondary to septic shock. Hold all blood pressure medication. 9. Dyslipidemia, on statin. 10. GI bleed, gastroenterology been consulted continue IV PPI, plan for colonoscopy today 11. Sacral decubitus, continue wound care, status post surgical debridement on 11/01/2016, continue postop care 12. Hematuria, urology has been consulted, resolved 13. PEG tube dysfunction, credit risk management director been consulted, replaced CONDITION: Guarded We will continue to monitor patient closely. Further recommendations, management, and treatment as per clinical course. Continue to monitor and telemetry floor Problems: Subjective 24 Hr Interval Summary Free Text/Dictation Patient found to have PEG tube dysfunction No other acute event Exam/Review of Systems Vital Signs Vitals Vital Signs Date Time Temp Pulse Resp B/P Pulse Ox O2 Delivery O2 Flow Rate FiO2 11/02/16 15:05 98.5 88 18 86/50 97 11/02/16 15:05 30 11/01/16 15:44 Mechanical Ventilator Intake and Output 11/01/16 11/01/16 11/02/16 15:00 23:00 07:00 Intake Total 50 ml 730 ml 880 ml Output Total 2 ml 500 ml 900 ml Balance 48 ml 230 ml -20 ml Exam General: The patient is cachectic, Not in acute distress. HEENT: Atraumatic, normocephalic. The pupils are equal and round . Neck: Trach in place Chest: Normal expansion of the thorax during inspiration Lungs: Clear to auscultation bilaterally Heart: Normal S1-S2, Regular rhythm and rate. Abdomen: Soft , nontender, nondistended , bowel sounds are present. PEG tube has been replaced by GI Extremities: Normal to inspection, no edema no cyanosis Neurologic:The patient is awake, Results Result Diagram: 11/02/1661211/02/16612 Results 24 hrs Laboratory Tests Test 11/01/16 17:47 11/01/16 21:20 11/01/16 23:03 11/02/16 01:06 Bedside Glucose 85 94 134 Hemoglobin 8.6 L Hematocrit 28.8 L Test 11/02/16 05:00 11/02/16 06:13 11/02/16 12:05 Bedside Glucose 106 72 White Blood Count 17.0 H Red Blood Count 3.10 L Hemoglobin 8.3 L Hematocrit 27.6 L Mean Corpuscular Volume 89.0 Mean Corpuscular Hemoglobin 26.8 L Mean Corpuscular Hemoglobin Concent 30.1 L Red Cell Distribution Width 17.9 H Platelet Count 143 Mean Platelet Volume 12.9 H Neutrophils % 76.4 Lymphocytes % 17.9 Monocytes % 4.1 Eosinophils % 0.8 Basophils % 0.2 Nucleated Red Blood Cells % 0.0 Neutrophils # 13.0 H Lymphocytes # 3.0 H Monocytes # 0.7 Eosinophils # 0.1 Basophils # 0.0 Nucleated Red Blood Cells # 0.0 Sodium Level 141 Potassium Level 3.4 L Chloride Level 111 H Carbon Dioxide Level 21 Anion Gap 12 Blood Urea Nitrogen 20 Creatinine 0.61 Glucose Level 96 Calcium Level 7.7 L Magnesium Level 1.4 L Medications Medications Current Medications Ondansetron HCl (Zofran Inj) 4 mg Q6H PRN IV NAUSEA AND/OR VOMITING Last administered on 10/27/16t 13:51; Admin Dose 4 MG; Start 10/25/16 at 11:00 Nitroglycerin (Nitroglycerin (Sl Tab) 0.4 Mg) 1 tab Q5M PRN SL CHEST PAIN; Start 10/25/16 at 11:00 Acetaminophen (Tylenol Tab) 650 mg Q6H PRN PO PAIN LEVEL 1-3 OR FEVER; Start at 11:00 Acetaminophen (Tylenol Supp) 650 mg Q4H PRN MA PAIN LEVEL 1-3 OR FEVER; Start 10/25/16 at 11:00 Docusate Sodium (Colace) 100 mg Q12H PRN PO CONSTIPATION; Start 10/25/16 at 11: 00 Bisacodyl (Dulcolax Supp) 10 mg DAILY PRN MA CONSTIPATION; Start 10/25/16 at 11: 00 Amiodarone HCl (Cordarone) 400 mg BID GTB Last administered on 11/01/16 10:22 ; Admin Dose 400 MG; Start 10/25/16 at 21:00 Ascorbic Acid (Vitamin C) 500 mg DAILY GTB Last administered on 11/01/16 10:21 ; Admin Dose 500 MG; Start 10/26/16 at 09:00 Chlorhexidine Gluconate (Peridex) 15 ml Q12 MM Last administered on 11/02/16 09:00; Admin Dose 15 ML; Start 10/25/16 at 21:00 Collagenase (Santyl) 1 applic DAILY TOP Last administered on 11/01/16 10:46; Admin Dose 1 APPLIC; Start 10/26/16 at 09:00 Ferrous Sulfate (Feosol Liquid Cup) 330 mg DAILY GTB Last administered on 10:29; Admin Dose 330 MG; Start 10/26/16 at 09:00 Multivitamins Therapeutic (Theragran) 1 tab DAILY GTB Last administered on 11/01 10:20; Admin Dose 1 TAB; Start 10/26/16 at 09:00 Lactobacillus Acidoph/Bulgaricus (Floranex) 1 tab BID PO Last administered on 21:40; Admin Dose 1 TAB; Start 10/25/16 at 21:00 Fenofibrate (Tricor) 145 mg DAILY PO Last administered on 11/01/16 10:20; Admin Dose 145 MG; Start 10/26/16 at 09:00 IV Flush (NS 10 ml) 10 ml PRN PRN IV IV PROTOCOL; Start 10/25/16 at 11:30 Atorvastatin Calcium (Lipitor) 20 mg HS PO Last administered on 11/01/16 21:40 ; Admin Dose 20 MG; Start 10/25/16 at 21:00 Pantoprazole (Protonix Iv) 40 mg BID IV Last administered on 11/02/16 12:07; Admin Dose 40 MG; Start 10/25/16 at 21:00 Miscellaneous Information 1 ea NOTE XX ; Start 10/26/16 at 09:30 Glucose (Glutose) 15 gm Q15M PRN PO DECREASED GLUCOSE; Start 10/26/16 at 09:30 Glucose (Glutose) 22.5 gm Q15M PRN PO DECREASED GLUCOSE; Start 10/26/16 at 09:30 Dextrose (D50w Syringe) 25 ml Q15M PRN IV DECREASED GLUCOSE Last administered on 11/01/16 15:12; Admin Dose 25 ML; Start 10/26/16 at 09:30 Dextrose (D50w Syringe) 50 ml Q15M PRN IV DECREASED GLUCOSE; Start 10/26/16 at 09:30 Glucagon (Glucagen) 1 mg Q15M PRN IM DECREASED GLUCOSE; Start 10/26/16 at 09:30 Glucose (Glutose) 15 gm Q15M PRN BUCCAL DECREASED GLUCOSE; Start 10/26/16 at 09: 30 Insulin Glargine (Lantus) 12 unit DAILY@20 SC Last administered on 10/30/16 21 :46; Admin Dose 12 UNIT; Start 10/26/16 at 20:00 Sodium Hypochlorite (Dakin'S (1/4 Strength)) 1 applic DAILY IRR Last administered on 11/02/16 09:00; Admin Dose 1 APPLIC; Start 10/27/16 at 09:00 Insulin Aspart (Novolog Insulin Pen) NOVOLOG *MILD* ALGORI... Q6 SC Last administered on 10/29/16 17:51; Admin Dose 1 UNIT; Start 10/29/16 at 12:00 Linezolid 600 mg 600 mg BID PO Last administered on 11/01/16 21:40; Admin Dose 600 MG; Start 10/30/16 at 21:00 Colistimethate Sodium/Sodium Chloride (Coly-Mycin/NS) 100 ml @ 200 mls/hr Q12 IVPB Last administered on 11/02/16 12:07; Admin Dose 200 MLS/HR; Start at 21:00 Non-Formulary Medication 10 ml 10 ml QID GTB Last administered on 11/01/16 21: 39; Admin Dose 10 ML; Start 10/31/16 at 17:00 Potassium Chloride/Dextrose/ Sod Cl (D5-1/2ns + KCl 20 Meq) 1,000 ml @ 60 mls/ hr [id number] IV Last administered on 11/02/16 12:44; Admin Dose 60 MLS/HR; Start 11/02/16 at 12:30 Mupirocin 1 applic 1 applic BID TOP ; Start 11/02/16 at 16:30 Metronidazole (Flagyl 500 Mg (Pmx)) 100 ml @ 100 mls/hr Q8 IVPB ; Start at 15:30 DILIP ARELLANO MD Nov 02, 2016 16:02
--- NOTE | 2016-11-02 17:00 | RADRPT ---
PROCEDURE: XR Abdomen. CLINICAL INDICATION: Abdomen pain. TECHNIQUE: AP supine abdomen x-ray. COMPARISON: 08/10/2016. FINDINGS: There is a tube overlying the midline abdomen. An IVC filter is present with the superior tip at th e mid L2 level. There is mild gaseous distension of the colon. The bowel gas pattern is otherwise normal. There are no abnormal calcifications overlying the urinary tracts. There are degenerative changes of the spine. IMPRESSION: 1. Tube overlying the mid abdomen. 2. IVC filter. 3. Mild gaseous distension of the colon. Clinical correlation advised. No evidence of obstruction . 4. Degenerative changes of the spine. RPTAT: QQ .Alhaji Schultz MD, MD Date Time Electronically viewed and signed by .Alhaji Schultz MD, MD on 11/02/2016 16:59 .R/
[2016-11-02] MEDS: metroNIDAZOLE 500 MG/NS (PMX) 100 ML IVPB SCH (18:01)
[2016-11-02] MEDS: MUPIROCIN 2% 22 GM OINT TOP SCH (18:02)
[2016-11-02] MEDS ORDERED: DIATR MEGLU/DIATRIZOATE SODIUM 120 ML BTL ONE (18:49)
[2016-11-02] MEDS ORDERED: MAGNESIUM SULFATE 3 GM in SOD CHLORIDE 0.9% 100 ML IVPB ONE (20:00)
[2016-11-02] MEDS: INSULIN GLARGINE [LANtus] 3 ML PEN SC SCH (20:00)
[2016-11-02] MEDS ORDERED: POTASSIUM CHLORIDE 50 ML IVPB ONE (20:00)
[2016-11-02] MEDS: ATORVASTATIN 20 MG TAB PO SCH (20:48)
--- NOTE | 2016-11-02 21:29 | RADRPT ---
PROCEDURE: XR Abdomen CLINICAL INDICATION: G tube placement TECHNIQUE: An AP supine radiograph of the abdomen was submitted. COMPARISON: 08/10/2016 FINDINGS: Contrast is seen to have been introduced into a G tube and mildly descends the fundus of the stomach with no extravasation of contrast evident. Dilated and distended segments of colon are seen within the abdomen was compatible with colonic ileus. No organomegaly or discrete mass is identified. No pathological calcification is identified. An inferior vena cava filter is again seen to be in place. Mild degenerative spine changes are noted. IMPRESSION: 1. The G tube tip is seen to lie within the stomach and there is no extravasation of contrast. 2. Development of increased gaseous distension of colon most compatible with colonic ileus. 3. The vena cava filter remains in place. 4. Degenerative spine changes are again noted. Physician Mino Date Time Electronically viewed and signed by Physician Mino on 11/02/2016 21:29 /
--- NOTE | 2016-11-02 23:52 | PN ---
Date/Time of Note Date/Time of Note DATE: 11/02/16 TIME: 23:49 Assessment/Plan Lines/Catheters IV Catheter Type (from [facility]): PICC Line Ferreira in Place (from [facility]): Yes Assessment/Plan Chief Complaint/Hosp Course 1. Sacral deep tissue injury s/p excisional debridement 11/01 -offloading -optimize nutrition per feeding tube -vitamin C administration -local care. 2. Lower extremity decubitus ulcerations as above. 3. Shock (sepsis plus or minus hypovolemia, plus or minus cardiac). Improved -Continue judicious fluid management, cardiac optimization and treatment of underlying infections. 4. Urinary tract infection. Continue antibiotics. 5. Significant anemia of unknown etiology. EGD performed. Colonoscopy noted . -await path -gi/medical management -tx prn 6. Diabetes. Continue nutrition and medication control. 7. Elevated troponin with non-ST elevation myocardial infarction. Continue cardiac optimization. 8. History of cerebrovascular accident. Continue medical optimization. 9. Peptic ulcer disease. Continue proton pump inhibitors. 10. Coronary artery disease. Continue cardiac optimization. 11. Acute renal insufficiency secondary to above. Continue judicious fluid management. 12. Ventilator-dependent respiratory failure. Continue pulmonary toilet. 13. Dysphagia and tube feeds s/p PEG Thank you, Problems: Subjective 24 Hr Interval Summary s/p Exc huy sacrum 11/01. s/p Colonoscopy 10/31. No f/c. No cough. No sz/ rash. No bloating. No vomiting. Leukocytosis persisting. Bowel function. Exam/Review of Systems Vital Signs Vitals Vital Signs Date Time Temp Pulse Resp B/P Pulse Ox O2 Delivery O2 Flow Rate FiO2 11/02/16 20:35 85 11/02/16 20:00 97.8 20 91/54 92 11/02/16 17:40 30 11/01/16 15:44 Mechanical Ventilator Intake and Output 11/01/16 11/01/16 11/02/16 15:00 23:00 07:00 Intake Total 50 ml 730 ml 880 ml Output Total 2 ml 500 ml 900 ml Balance 48 ml 230 ml -20 ml Exam Free Text/Dictation GENERAL: Awake but noncommunicative. HEENT: The pupils are equal and reactive. No scleral icterus. Mucous membranes are moist. NECK: Trach in place. No JVD. PULMONARY: Decreased breath sounds. No wheezing. CARDIAC: S1, S2 present. ABDOMEN: Soft. PEG in place. EXTREMITIES: Minimal edema. VASCULAR: Capillary refill is 3 seconds. NEUROLOGIC: Awake, but does not follow commands. SKIN: Sacrococcygeal ulcer with packing. Bilateral lower extremity skin injuries. Results Result Diagram: 11/02/16 0613 11/02/16 0613 MINNIE SHIELDS MD Nov 02, 2016 23:51
[2016-11-03] VITALS (24 sets, daily range): BP systolic 81–99; BP diastolic 46–54; PULSE 80–97; RESP 12–19
[2016-11-03] MEDS: MUPIROCIN 2% 22 GM OINT TOP SCH ×3 (00:52→20:48)
[2016-11-03] MEDS: metroNIDAZOLE 500 MG/NS (PMX) 100 ML IVPB SCH ×4 (00:52→22:43)
[2016-11-03] MEDS: D5W-0.45 NACL + KCL 20 MEQ 1,000 ML IV SCH ×3 (05:10→22:43)
[2016-11-03] MEDS: INSULIN ASPART [NOVOLOG] 3 ML PEN SC SCH ×5 (06:00→23:46)
[2016-11-03 07:09] LABS: ADD SCAN DIFF NO
[2016-11-03 07:18] LABS: BASOPHILS % 0.2 % (0.0-2.0); EOSINOPHILS # 0.1 10^3/ul (0.0-0.5); EOSINOPHILS % 0.7 % (0.0-7.0); HEMATOCRIT 24.2 % (42.0-52.0); HEMOGLOBIN 7.4 g/dl (14.0-18.0); LYMPHOCYTES # 2.1 10^3/ul (0.8-2.9); LYMPHOCYTES % 17.4 % (15.0-51.0); MEAN CORPUSCULAR HEMOGLOBIN 26.9 pg (29.0-33.0); MEAN CORPUSCULAR HGB CONC 30.6 g/dl (32.0-37.0); MEAN PLATELET VOLUME 12.7 fl (7.4-10.4); MONOCYTE # 0.5 10^3/ul (0.3-0.9); NEUTROPHIL # 9.4 10^3/ul (1.6-7.5); PLATELET COUNT 138 10^3/UL (140-415); RED BLOOD COUNT 2.75 10^6/ul (4.70-6.10); RED CELL DISTRIBUTION WIDTH 17.7 % (11.5-14.5); WHITE BLOOD COUNT 12.2 10^3/ul (4.8-10.8)
[2016-11-03] MEDS: MULTIVITAMINS THERAPEUTIC TAB GTB SCH (07:44)
[2016-11-03] MEDS: AMIODARONE 200 MG TAB GTB SCH ×2 (07:44→20:30)
[2016-11-03] MEDS: FERROUS SULFATE 60 MG/ML 5ML CUP GTB SCH (07:44)
[2016-11-03] MEDS: SULFASALAZINE GTB SCH ×4 (07:44→20:31)
[2016-11-03] MEDS: ASCORBIC ACID 500 MG TAB GTB SCH (07:44)
[2016-11-03] MEDS: LACTOBACILLUS CHEW TAB PO SCH ×2 (07:45→20:32)
[2016-11-03] MEDS: FENOFIBRATE 145 MG TAB PO SCH (07:45)
[2016-11-03] MEDS: ZYVOX 600 MG TAB PO SCH ×2 (07:45→20:32)
[2016-11-03 07:50] LABS: CALCIUM 7.8 mg/dl (8.4-10.2); CREATININE 0.69 mg/dl (0.61-1.24); POTASSIUM 3.6 mmol/L (3.5-5.1)
[2016-11-03] MEDS: COLISTIMETHATE 75 MG in SOD CHLORIDE 0.9% 100 ML IVPB SCH ×2 (08:48→20:47)
[2016-11-03] MEDS: PANTOPRAZOLE 40 MG INJ IV SCH ×2 (08:49→20:42)
[2016-11-03] MEDS: CHLORHEXIDINE GLUCONATE 15 ML UD CUP MM SCH ×2 (08:49→20:41)
--- NOTE | 2016-11-03 11:18 | PN ---
DATE: 11/03/2016 SUBJECTIVE: The patient is not verbal, has had hematuria, and has an indwelling Ferreira catheter. OBJECTIVE: VITAL SIGNS: Temperature is 98.5, the blood pressure 81/46, pulse is 85, respiration 15. ABDOMEN: Soft but a little large. GENITOURINARY: Ferreira catheter is draining clear urine. There is no more bleeding, and the scrotum is normal. LABORATORY DATA: CBC shows a white count of 12.2, hemoglobin 7.4, hematocrit 24.2, BUN is 16, creat inine 0.69. Sodium 137, potassium 3.6, chloride 115, CO2 21. IMPRESSION: From a urological standpoint, the patient's urine is clear for now. The Ferreira catheter is draining well. Therefore, we will just continue the present treatment. The patient has had pre vious gross hematuria in the past, and I cauterized his bladder and his prostate area. For now, we will leave the Ferreira catheter in. The urine is clear, so we do not have to do anything else. Dictated By: TANA DUBOIS/GENOVEVA Conf#: [id number] DID#: [id number]
--- NOTE | 2016-11-03 11:19 | CONS ---
Date/Time of Note Date/Time of Note DATE: 11/03/16 TIME: 11:18 Assessment/Plan Assessment/Plan Additional Assessment/Plan Sepsis resolving Anemia * GI bleed evaluate lower vs tumors vs others * s/p EGD 10/27/2016. 1.Gastrostomy tube in the body of the stomach.Otherwise, normal esophagogastroduodenoscopy with no bleeding site identified * s/o 10/31/2016 Colonoscopy * 1. An 8 mm ulcer in the proximal descending colon, biopsied. * 2. A 4 cm ulcer in the cecum, biopsied. * 3. Normal ileum. * 4. Otherwise, normal colonic mucosa. * 5. Large internal hemorrhoids. Ventilator dependent respiratory failure Decubitus ulcer sacral Diabetes mellitus History of Hypertension Dyslipidemia Plan * Repeat KUB in a.m. to assess colonic ileus * Plan for bedside PEG reinsertion * Monitor H&H daily, transfuse 1 unit for hemoglobin less than 7.5 and 2 units for hemoglobin less than 7 Consultation Date/Type/Reason Admit Date/Time Oct 25, 2016 at 10:54 Initial Consult Date 10/25/16 Type of Consultation: GI Referring Provider: DILIP ARELLANO MD 24 HR Interval Summary Free Text/Dictation Patient passing gas and having bowel movements Thapa inserted secondary to G-tube being dislodged Repeat KUB tomorrow to assess for ileus Plan for bedside PEG reinsertion Exam/Review of Systems Vital Signs Vitals Vital Signs Date Time Temp Pulse Resp B/P Pulse Ox O2 Delivery O2 Flow Rate FiO2 11/03/16 11:04 98.2 98 18 99/54 89 11/03/16 09:40 30 11/01/16 15:44 Mechanical Ventilator Intake and Output 11/02/16 11/02/16 11/03/16 15:00 23:00 07:00 Intake Total 100 ml Output Total 1100 ml 750 ml Balance -1100 ml -650 ml Exam Constitutional: frail, non-verbal Neck: supple Respiratory: diminished breath sounds, other (trach to vent) Cardiovascular: nl pulses, regular rate and rhythm Gastrointestinal: non-tender, other (thapa catheter in abdomen,minimal drainage , slight erythema), soft Results Result Diagram: 11/03/16 0630 11/03/16 0630 Results 24 hrs Laboratory Tests Test 11/02/16 12:05 11/02/16 18:11 11/02/16 20:06 11/03/16 00:53 Bedside Glucose 72 80 72 85 Test 11/03/16 06:30 11/03/16 06:36 White Blood Count 12.2 #H Red Blood Count 2.75 L Hemoglobin 7.4 L Hematocrit 24.2 L Mean Corpuscular Volume 88.0 Mean Corpuscular Hemoglobin 26.9 L Mean Corpuscular Hemoglobin Concent 30.6 L Red Cell Distribution Width 17.7 H Platelet Count 138 L Mean Platelet Volume 12.7 H Neutrophils % 77.0 Lymphocytes % 17.4 Monocytes % 4.0 Eosinophils % 0.7 Basophils % 0.2 Nucleated Red Blood Cells % 0.0 Neutrophils # 9.4 H Lymphocytes # 2.1 Monocytes # 0.5 Eosinophils # 0.1 Basophils # 0.0 Nucleated Red Blood Cells # 0.0 Sodium Level 137 Potassium Level 3.6 Chloride Level 115 H Carbon Dioxide Level 21 Anion Gap 5 L Blood Urea Nitrogen 16 Creatinine 0.69 Glucose Level 77 Calcium Level 7.8 L Bedside Glucose 81 Medications Medications Current Medications Ondansetron HCl (Zofran Inj) 4 mg Q6H PRN IV NAUSEA AND/OR VOMITING Last administered on 10/27/16 13:51; Admin Dose 4 MG; Start 10/25/16 at 11:00 Nitroglycerin (Nitroglycerin (Sl Tab) 0.4 Mg) 1 tab Q5M PRN SL CHEST PAIN; Start 10/25/16 at 11:00 Acetaminophen (Tylenol Tab) 650 mg Q6H PRN PO PAIN LEVEL 1-3 OR FEVER; Start at 11:00 Acetaminophen (Tylenol Supp) 650 mg Q4H PRN MA PAIN LEVEL 1-3 OR FEVER; Start 10/25/16 at 11:00 Docusate Sodium (Colace) 100 mg Q12H PRN PO CONSTIPATION; Start 10/25/16 at 11: 00 Bisacodyl (Dulcolax Supp) 10 mg DAILY PRN MA CONSTIPATION; Start 10/25/16 at 11: 00 Amiodarone HCl (Cordarone) 400 mg BID GTB Last administered on 11/01/16 10:22 ; Admin Dose 400 MG; Start 10/25/16 at 21:00 Ascorbic Acid (Vitamin C) 500 mg DAILY GTB Last administered on 11/01/16 10:21 ; Admin Dose 500 MG; Start 10/26/16 at 09:00 Chlorhexidine Gluconate (Peridex) 15 ml Q12 MM Last administered on 11/03/16 08:49; Admin Dose 15 ML; Start 10/25/16 at 21:00 Collagenase (Santyl) 1 applic DAILY TOP Last administered on 11/01/16 10:46; Admin Dose 1 APPLIC; Start 10/26/16 at 09:00 Ferrous Sulfate (Feosol Liquid Cup) 330 mg DAILY GTB Last administered on 10:29; Admin Dose 330 MG; Start 10/26/16 at 09:00 Multivitamins Therapeutic (Theragran) 1 tab DAILY GTB Last administered on 11/01 10:20; Admin Dose 1 TAB; Start 10/26/16 at 09:00 Lactobacillus Acidoph/Bulgaricus (Floranex) 1 tab BID PO Last administered on 21:40; Admin Dose 1 TAB; Start 10/25/16 at 21:00 Fenofibrate (Tricor) 145 mg DAILY PO Last administered on 11/01/16 10:20; Admin Dose 145 MG; Start 10/26/16 at 09:00 IV Flush (NS 10 ml) 10 ml PRN PRN IV IV PROTOCOL; Start 10/25/16 at 11:30 Atorvastatin Calcium (Lipitor) 20 mg HS PO Last administered on 11/01/16 21:40 ; Admin Dose 20 MG; Start 10/25/16 at 21:00 Pantoprazole (Protonix Iv) 40 mg BID IV Last administered on 11/03/16 08:49; Admin Dose 40 MG; Start 10/25/16 at 21:00 Miscellaneous Information 1 ea NOTE XX ; Start 10/26/16 at 09:30 Glucose (Glutose) 15 gm Q15M PRN PO DECREASED GLUCOSE; Start 10/26/16 at 09:30 Glucose (Glutose) 22.5 gm Q15M PRN PO DECREASED GLUCOSE; Start 10/26/16 at 09:30 Dextrose (D50w Syringe) 25 ml Q15M PRN IV DECREASED GLUCOSE Last administered on 11/01/16 15:12; Admin Dose 25 ML; Start 10/26/16 at 09:30 Dextrose (D50w Syringe) 50 ml Q15M PRN IV DECREASED GLUCOSE; Start 10/26/16 at 09:30 Glucagon (Glucagen) 1 mg Q15M PRN IM DECREASED GLUCOSE; Start 10/26/16 at 09:30 Glucose (Glutose) 15 gm Q15M PRN BUCCAL DECREASED GLUCOSE; Start 10/26/16 at 09: 30 Insulin Glargine (Lantus) 12 unit DAILY@20 SC Last administered on 10/30/16 21 :46; Admin Dose 12 UNIT; Start 10/26/16 at 20:00 Sodium Hypochlorite (Dakin'S (07/26 Strength)) 1 applic DAILY IRR Last administered on 11/02/16 09:00; Admin Dose 1 APPLIC; Start 10/27/16 at 09:00 Insulin Aspart (Novolog Insulin Pen) NOVOLOG *MILD* ALGORI... Q6 SC Last administered on 10/29/16 17:51; Admin Dose 1 UNIT; Start 10/29/16 at 12:00 Linezolid 600 mg 600 mg BID PO Last administered on 11/01/16 21:40; Admin Dose 600 MG; Start 10/30/16 at 21:00 Colistimethate Sodium/Sodium Chloride (Coly-Mycin/NS) 100 ml @ 200 mls/hr Q12 IVPB Last administered on 11/03/16 08:48; Admin Dose 200 MLS/HR; Start at 21:00 Non-Formulary Medication 10 ml 10 ml QID GTB Last administered on 11/01/16 21: 39; Admin Dose 10 ML; Start 10/31/16 at 17:00 Potassium Chloride/Dextrose/ Sod Cl (D5-1/2ns + KCl 20 Meq) 1,000 ml @ 60 mls/ hr [id number] IV Last administered on 11/03/16 07:56; Admin Dose 60 MLS/HR; Start 11/02/16 at 12:30 Mupirocin 1 applic 1 applic BID TOP Last administered on 11/03/16 08:49; Admin Dose 1 APPLIC; Start 11/02/16 at 16:30 Metronidazole (Flagyl 500 Mg (Pmx)) 100 ml @ 100 mls/hr Q8 IVPB Last administered on 11/03/16 06:38; Admin Dose 100 MLS/HR; Start 11/02/16 at 15:30 SABINE STEWART Nov 03, 2016 11:18
--- NOTE | 2016-11-03 11:53 | PN ---
Date/Time of Note Date/Time of Note DATE: 11/03/16 TIME: 11:43 Assessment/Plan VTE Prophylaxis VTE Prophylaxis Intervention: other Lines/Catheters IV C[facility] Type ([facility] PICC Line Central line still needed: Yes Urinary Cath still in place: Yes Reason Cath still needed: other (indicate) Assessment/Plan Chief Complaint/Hosp Course ASSESSMENT AND PLAN: 1. Sepsis, likely secondary to urinary tract infection Status post pressors, off pressors at this time Continue Zyvox and Flagyl. Infectious disease doctor has been consulted. 2. Ventilator-dependent respiratory failure. Continue vent management by commercial construction project manager. 3. Non-ST myocardial infarction with elevated troponin, likely demand ischemia secondary to anemia. Follow-up cardiology recommendations 4. Anemia, secondary to GI bleed positive guaiac. brewery technician consulted , continue IV PPI. Status post total of 3 units of packed red blood cell, . Follow hemoglobin hematocrit. s/p EGD 10/27/2016 with finding of gastrostomy tube in the body of the stomach.Otherwise, normal esophagogastroduodenoscopy with no bleeding site identified s/p 10/31/2016 Colonoscopy and finding of an 8 mm ulcer in the proximal descending colon & A 4 cm ulcer in the cecum with Large internal hemorrhoids. 5. Severe dehydration, improving, status post 2 units of packed red blood cells and IV fluid. Follow renal panel. 6. Acute renal insufficiency. Secondary to #5 as above, nephrology has been consulted. 7. Diabetic mellitus . Place the patient on Lantus, continue insulin sliding scale. 8. History of essential hypertension. At this time, the patient is hypotensive secondary to septic shock. Hold all blood pressure medication. 9. Dyslipidemia, on statin. 10. GI bleed, gastroenterology been consulted continue IV PPI, status post colonoscopy result as above 11. Sacral decubitus, continue wound care, status post surgical debridement on 11/01/2016, continue postop care 12. Hematuria, urology has been consulted, resolved 13. PEG tube dysfunction, brewery technician been consulted, Plan for repeat EGD plus PEG CONDITION: Guarded We will continue to monitor patient closely. Further recommendations, management, and treatment as per clinical course. Continue to monitor and telemetry floor Problems: Subjective 24 Hr Interval Summary Free Text/Dictation No acute changes Patient PEG tube is not functioning, waiting for brewery technician Awake and alert does not follow commands Exam/Review of Systems Vital Signs Vitals Vital Signs Date Time Temp Pulse Resp B/P Pulse Ox O2 Delivery O2 Flow Rate FiO2 11/03/16 11:04 98.2 98 18 99/54 89 11/03/16 09:40 30 11/01/16 15:44 Mechanical Ventilator Intake and Output 11/02/16 11/02/16 11/03/16 15:00 23:00 07:00 Intake Total 100 ml Output Total 1100 ml 750 ml Balance -1100 ml -650 ml Exam General: The patient is cachectic, Not in acute distress. HEENT: Atraumatic, normocephalic. The pupils are equal and round . Neck: Trach in place Chest: Normal expansion of the thorax during inspiration Lungs: Clear to auscultation bilaterally Heart: Normal S1-S2, Regular rhythm and rate. Abdomen: Soft , nontender, nondistended , bowel sounds are present. PEG tube dysfunction Extremities: Normal to inspection, no edema no cyanosis Neurologic:The patient is awake, and alert Results Result Diagram: 11/03/16 0630 11/03/16 0630 Results 24 hrs Laboratory Tests Test 11/02/16 12:05 11/02/16 18:11 11/02/16 20:06 11/03/16 00:53 Bedside Glucose 72 80 72 85 Test 11/03/16 06:30 11/03/16 06:36 White Blood Count 12.2 #H Red Blood Count 2.75 L Hemoglobin 7.4 L Hematocrit 24.2 L Mean Corpuscular Volume 88.0 Mean Corpuscular Hemoglobin 26.9 L Mean Corpuscular Hemoglobin Concent 30.6 L Red Cell Distribution Width 17.7 H Platelet Count 138 L Mean Platelet Volume 12.7 H Neutrophils % 77.0 Lymphocytes % 17.4 Monocytes % 4.0 Eosinophils % 0.7 Basophils % 0.2 Nucleated Red Blood Cells % 0.0 Neutrophils # 9.4 H Lymphocytes # 2.1 Monocytes # 0.5 Eosinophils # 0.1 Basophils # 0.0 Nucleated Red Blood Cells # 0.0 Sodium Level 137 Potassium Level 3.6 Chloride Level 115 H Carbon Dioxide Level 21 Anion Gap 5 L Blood Urea Nitrogen 16 Creatinine 0.69 Glucose Level 77 Calcium Level 7.8 L Bedside Glucose 81 Medications Medications Current Medications Ondansetron HCl (Zofran Inj) 4 mg Q6H PRN IV NAUSEA AND/OR VOMITING Last administered on 10/27/16 13:51; Admin Dose 4 MG; Start 10/25/16 at 11:00 Nitroglycerin (Nitroglycerin (Sl Tab) 0.4 Mg) 1 tab Q5M PRN SL CHEST PAIN; Start 10/25/16 at 11:00 Acetaminophen (Tylenol Tab) 650 mg Q6H PRN PO PAIN LEVEL 1-3 OR FEVER; Start at 11:00 Acetaminophen (Tylenol Supp) 650 mg Q4H PRN [place] PAIN LEVEL 1-3 OR FEVER; Start 10/25/16 at 11:00 Docusate Sodium (Colace) 100 mg Q12H PRN PO CONSTIPATION; Start 10/25/16 at 11: 00 Bisacodyl (Dulcolax Supp) 10 mg DAILY PRN [place] CONSTIPATION; Start 10/25/16 at 11: 00 Amiodarone HCl (Cordarone) 400 mg BID GTB Last administered on 11/01/16 10:22 ; Admin Dose 400 MG; Start 10/25/16 at 21:00 Ascorbic Acid (Vitamin C) 500 mg DAILY GTB Last administered on 11/01/16 10:21 ; Admin Dose 500 MG; Start 10/26/16 at 09:00 Chlorhexidine Gluconate (Peridex) 15 ml Q12 MM Last administered on 11/03/16 08:49; Admin Dose 15 ML; Start 10/25/16 at 21:00 Collagenase (Santyl) 1 applic DAILY TOP Last administered on 11/01/16 10:46; Admin Dose 1 APPLIC; Start 10/26/16 at 09:00 Ferrous Sulfate (Feosol Liquid Cup) 330 mg DAILY GTB Last administered on 10:29; Admin Dose 330 MG; Start 10/26/16 at 09:00 Multivitamins Therapeutic (Theragran) 1 tab DAILY GTB Last administered on 11/01 10:20; Admin Dose 1 TAB; Start 10/26/16 at 09:00 Lactobacillus Acidoph/Bulgaricus (Floranex) 1 tab BID PO Last administered on 21:40; Admin Dose 1 TAB; Start 10/25/16 at 21:00 Fenofibrate (Tricor) 145 mg DAILY PO Last administered on 4/12/17at 10:20; Admin Dose 145 MG; Start 10/26/16 at 09:00 IV Flush (NS 10 ml) 10 ml PRN PRN IV IV PROTOCOL; Start 10/25/16 at 11:30 Atorvastatin Calcium (Lipitor) 20 mg HS PO Last administered on 11/01/16 21:40 ; Admin Dose 20 MG; Start 10/25/16 at 21:00 Pantoprazole (Protonix Iv) 40 mg BID IV Last administered on 11/03/16 08:49; Admin Dose 40 MG; Start 10/25/16 at 21:00 Miscellaneous Information 1 ea NOTE XX ; Start 10/26/16 at 09:30 Glucose (Glutose) 15 gm Q15M PRN PO DECREASED GLUCOSE; Start 10/26/16 at 09:30 Glucose (Glutose) 22.5 gm Q15M PRN PO DECREASED GLUCOSE; Start 10/26/16 at 09:30 Dextrose (D50w Syringe) 25 ml Q15M PRN IV DECREASED GLUCOSE Last administered on 11/01/16 15:12; Admin Dose 25 ML; Start 10/26/16 at 09:30 Dextrose (D50w Syringe) 50 ml Q15M PRN IV DECREASED GLUCOSE; Start 10/26/16 at 09:30 Glucagon (Glucagen) 1 mg Q15M PRN IM DECREASED GLUCOSE; Start 10/26/16 at 09:30 Glucose (Glutose) 15 gm Q15M PRN BUCCAL DECREASED GLUCOSE; Start 10/26/16 at 09: 30 Insulin Glargine (Lantus) 12 unit DAILY@20 SC Last administered on 10/30/16 21 :46; Admin Dose 12 UNIT; Start 10/26/16 at 20:00 Sodium Hypochlorite (Dakin'S (1/4 Strength)) 1 applic DAILY IRR Last administered on 11/02/16 09:00; Admin Dose 1 APPLIC; Start 10/27/16 at 09:00 Insulin Aspart (Novolog Insulin Pen) NOVOLOG *MILD* ALGORI... Q6 SC Last administered on 10/29/16 17:51; Admin Dose 1 UNIT; Start 10/29/16 at 12:00 Linezolid 600 mg 600 mg BID PO Last administered on 11/01/16 21:40; Admin Dose 600 MG; Start 10/30/16 at 21:00 Colistimethate Sodium/Sodium Chloride (Coly-Mycin/NS) 100 ml @ 200 mls/hr Q12 IVPB Last administered on 11/03/16 08:48; Admin Dose 200 MLS/HR; Start at 21:00 Non-Formulary Medication 10 ml 10 ml QID GTB Last administered on 11/01/16 21: 39; Admin Dose 10 ML; Start 10/31/16 at 17:00 Potassium Chloride/Dextrose/ Sod Cl (D5-1/2ns + KCl 20 Meq) 1,000 ml @ 60 mls/ hr [id number] IV Last administered on 11/03/16 07:56; Admin Dose 60 MLS/HR; Start 11/02/16 at 12:30 Mupirocin 1 applic 1 applic BID TOP Last administered on 11/03/16 08:49; Admin Dose 1 APPLIC; Start 11/02/16 at 16:30 Metronidazole (Flagyl 500 Mg (Pmx)) 100 ml @ 100 mls/hr Q8 IVPB Last administered on 11/03/16 06:38; Admin Dose 100 MLS/HR; Start 11/02/16 at 15:30 DILIP ARELLANO MD Nov 03, 2016 11:52
--- NOTE | 2016-11-03 12:22 | CONS ---
Date/Time of Note Date/Time of Note DATE: 11/03/16 TIME: 12:21 Assessment/Plan Assessment/Plan Additional Assessment/Plan Ventilator settings; AC of 12, tidal volume 550, PEEP of 5, 30% FiO2. Assessment recommendations; 1. Patient admitted for UTI and sepsis 2. Chronic respiratory failure. 3. Multi-infarct dementia. 4. Anemia. Continue current treatment. Transfuse 1 unit packed RBC. Prognosis remains poor Consultation Date/Type/Reason Admit Date/Time Oct 25, 2016 at 10:54 Initial Consult Date 10/25/16 Type of Consultation: Pulmonary Referring Provider: DILIP ARELLANO MD 24 HR Interval Summary Free Text/Dictation Patient condition remains stable. Remains essentially unresponsive. Has remained hemodynamically stable. General exam; elderly male, on ventilator via tracheostomy currently in no distress unresponsive. Exam/Review of Systems Vital Signs Vitals Vital Signs Date Time Temp Pulse Resp B/P Pulse Ox O2 Delivery O2 Flow Rate FiO2 11/03/16 11:20 90 15 96 30 11/03/16 11:04 98.2 99/54 11/01/16 15:44 Mechanical Ventilator Intake and Output 11/02/16 11/02/16 11/03/16 15:00 23:00 07:00 Intake Total 100 ml Output Total 1100 ml 750 ml Balance -1100 ml -650 ml Exam HEENT exam is; supple neck, no JVD. No lymphadenopathy. Midline trachea. No thyromegaly. Tracheostomy in place with clean insertion site. Chest examination; diminished but clear vessel bilaterally. S1-S2 audible, no murmurs. Regular rhythm. Abdomen examination; soft, no organomegaly. G-tube in place. Bowel sounds audible. Extremity exam is; no peripheral edema. SHOE LACER exam is; patient remains unresponsive. Has contractures involving all 4 extremities. Results Result Diagram: 11/03/16 0630 11/03/16 0630 Results 24 hrs Laboratory Tests Test 11/02/16 18:11 11/02/16 20:06 11/03/16 00:53 11/03/16 06:30 Bedside Glucose 80 72 85 White Blood Count 12.2 #H Red Blood Count 2.75 L Hemoglobin 7.4 L Hematocrit 24.2 L Mean Corpuscular Volume 88.0 Mean Corpuscular Hemoglobin 26.9 L Mean Corpuscular Hemoglobin Concent 30.6 L Red Cell Distribution Width 17.7 H Platelet Count 138 L Mean Platelet Volume 12.7 H Neutrophils % 77.0 Lymphocytes % 17.4 Monocytes % 4.0 Eosinophils % 0.7 Basophils % 0.2 Nucleated Red Blood Cells % 0.0 Neutrophils # 9.4 H Lymphocytes # 2.1 Monocytes # 0.5 Eosinophils # 0.1 Basophils # 0.0 Nucleated Red Blood Cells # 0.0 Sodium Level 137 Potassium Level 3.6 Chloride Level 115 H Carbon Dioxide Level 21 Anion Gap 5 L Blood Urea Nitrogen 16 Creatinine 0.69 Glucose Level 77 Calcium Level 7.8 L Test 11/03/16 06:36 Bedside Glucose 81 Medications Medications Current Medications Ondansetron HCl (Zofran Inj) 4 mg Q6H PRN IV NAUSEA AND/OR VOMITING Last administered on 10/27/16 13:51; Admin Dose 4 MG; Start 10/25/16 at 11:00 Nitroglycerin (Nitroglycerin (Sl Tab) 0.4 Mg) 1 tab Q5M PRN SL CHEST PAIN; Start 10/25/16 at 11:00 Acetaminophen (Tylenol Tab) 650 mg Q6H PRN PO PAIN LEVEL 1-3 OR FEVER; Start at 11:00 Acetaminophen (Tylenol Supp) 650 mg Q4H PRN [place] PAIN LEVEL 1-3 OR FEVER; Start 10/25/16 at 11:00 Docusate Sodium (Colace) 100 mg Q12H PRN PO CONSTIPATION; Start 10/25/16 at 11: 00 Bisacodyl (Dulcolax Supp) 10 mg DAILY PRN [place] CONSTIPATION; Start 10/25/16 at 11: 00 Amiodarone HCl (Cordarone) 400 mg BID GTB Last administered on 11/01/16 10:22 ; Admin Dose 400 MG; Start 10/25/16 at 21:00 Ascorbic Acid (Vitamin C) 500 mg DAILY GTB Last administered on 11/01/16 10:21 ; Admin Dose 500 MG; Start 10/26/16 at 09:00 Chlorhexidine Gluconate (Peridex) 15 ml Q12 MM Last administered on 11/03/16 08:49; Admin Dose 15 ML; Start 10/25/16 at 21:00 Collagenase (Santyl) 1 applic DAILY TOP Last administered on 11/01/16 10:46; Admin Dose 1 APPLIC; Start 10/26/16 at 09:00 Ferrous Sulfate (Feosol Liquid Cup) 330 mg DAILY GTB Last administered on 10:29; Admin Dose 330 MG; Start 10/26/16 at 09:00 Multivitamins Therapeutic (Theragran) 1 tab DAILY GTB Last administered on 11/01 10:20; Admin Dose 1 TAB; Start 10/26/16 at 09:00 Lactobacillus Acidoph/Bulgaricus (Floranex) 1 tab BID PO Last administered on 21:40; Admin Dose 1 TAB; Start 10/25/16 at 21:00 Fenofibrate (Tricor) 145 mg DAILY PO Last administered on 11/01/16 10:20; Admin Dose 145 MG; Start 10/26/16 at 09:00 IV Flush (NS 10 ml) 10 ml PRN PRN IV IV PROTOCOL; Start 10/25/16 at 11:30 Atorvastatin Calcium (Lipitor) 20 mg HS PO Last administered on 11/01/16 21:40 ; Admin Dose 20 MG; Start 10/25/16 at 21:00 Pantoprazole (Protonix Iv) 40 mg BID IV Last administered on 11/03/16 08:49; Admin Dose 40 MG; Start 10/25/16 at 21:00 Miscellaneous Information 1 ea NOTE XX ; Start 10/26/16 at 09:30 Glucose (Glutose) 15 gm Q15M PRN PO DECREASED GLUCOSE; Start 10/26/16 at 09:30 Glucose (Glutose) 22.5 gm Q15M PRN PO DECREASED GLUCOSE; Start 10/26/16 at 09:30 Dextrose (D50w Syringe) 25 ml Q15M PRN IV DECREASED GLUCOSE Last administered on 11/01/16 15:12; Admin Dose 25 ML; Start 10/26/16 at 09:30 Dextrose (D50w Syringe) 50 ml Q15M PRN IV DECREASED GLUCOSE; Start 10/26/16 at 09:30 Glucagon (Glucagen) 1 mg Q15M PRN IM DECREASED GLUCOSE; Start 10/26/16 at 09:30 Glucose (Glutose) 15 gm Q15M PRN BUCCAL DECREASED GLUCOSE; Start 10/26/16 at 09: 30 Insulin Glargine (Lantus) 12 unit DAILY@20 SC Last administered on 10/30/16 21 :46; Admin Dose 12 UNIT; Start 10/26/16 at 20:00 Sodium Hypochlorite (Dakin'S (1/4 Strength)) 1 applic DAILY IRR Last administered on 11/02/16 09:00; Admin Dose 1 APPLIC; Start 10/27/16 at 09:00 Insulin Aspart (Novolog Insulin Pen) NOVOLOG *MILD* ALGORI... Q6 SC Last administered on 10/29/16 17:51; Admin Dose 1 UNIT; Start 10/29/16 at 12:00 Linezolid 600 mg 600 mg BID PO Last administered on 11/01/16 21:40; Admin Dose 600 MG; Start 10/30/16 at 21:00 Colistimethate Sodium/Sodium Chloride (Coly-Mycin/NS) 100 ml @ 200 mls/hr Q12 IVPB Last administered on 11/03/16 08:48; Admin Dose 200 MLS/HR; Start at 21:00 Non-Formulary Medication 10 ml 10 ml QID GTB Last administered on 11/01/16 21: 39; Admin Dose 10 ML; Start 10/31/16 at 17:00 Potassium Chloride/Dextrose/ Sod Cl (D5-1/2ns + KCl 20 Meq) 1,000 ml @ 60 mls/ hr [id number] IV Last administered on 11/03/16 07:56; Admin Dose 60 MLS/HR; Start 11/02/16 at 12:30 Mupirocin 1 applic 1 applic BID TOP Last administered on 11/03/16 08:49; Admin Dose 1 APPLIC; Start 11/02/16 at 16:30 Metronidazole 100 ml @ 100 mls/hr Q8 IVPB Last administered on 11/03/16 06:38 ; Admin Dose 100 MLS/HR; Start 11/02/16 at 15:30 Potassium Chloride/Sodium Chloride (KCl/NS) 110 ml @ 55 mls/hr ONCE ONCE IVPB ; Start 11/03/16 at 13:00; Stop 11/03/16 at 14:59 JORGE ROBLES Nov 03, 2016 12:22
[2016-11-03] MEDS ORDERED: POTASSIUM CHLORIDE 20 MEQ in SOD CHLORIDE 0.9% 100 ML IVPB ONE (13:00)
[2016-11-03] MEDS: COLLAGENASE 30 GM TUBE TOP SCH (13:48)
[2016-11-03] MEDS: SODIUM HYPOCHLORITE 0.125% 473 ML BTL IRR SCH (13:48)
--- NOTE | 2016-11-03 15:33 | PN ---
Date/Time of Note Date/Time of Note DATE: 11/03/16 TIME: 15:33 Assessment/Plan VTE Prophylaxis VTE Prophylaxis Intervention: SCD's Lines/Catheters IV Catheter Type (from Nrs): PICC Line Central line still needed: No Urinary Cath still in place: Yes Reason Cath still needed: urinary retention Assessment/Plan Assessment/Plan Septic shock Acute blood loss anemia Elevated troponin likely secondary to above Respiratory failure Paroxysmal atrial fibrillation, currently sinus rhythm Paroxysmal atrial tachycardia Preserved ejection fraction Acute kidney injury -Blood pressure trend improved, IV fluids as per nephrology. Continue to hold any antihypertensives at the current time. No anticoagulation given history of recurrent hematuria - possibly in the future Subjective 24 Hr Interval Summary Free Text/Dictation the patient with no change Exam/Review of Systems Vital Signs Vitals Vital Signs Date Time Temp Pulse Resp B/P Pulse Ox O2 Delivery O2 Flow Rate FiO2 11/03/16 13:30 102 18 98 30 11/03/16 11:04 98.2 99/54 11/01/16 15:44 Mechanical Ventilator Intake and Output 11/02/16 11/02/16 11/03/16 15:00 23:00 07:00 Intake Total 100 ml Output Total 1100 ml 750 ml Balance -1100 ml -650 ml Results Result Diagram: 11/03/16 0630 11/03/16 0630 Results 24 hrs Laboratory Tests Test 11/02/16 18:11 11/02/16 20:06 11/03/16 00:53 11/03/16 06:30 Bedside Glucose 80 72 85 White Blood Count 12.2 #H Red Blood Count 2.75 L Hemoglobin 7.4 L Hematocrit 24.2 L Mean Corpuscular Volume 88.0 Mean Corpuscular Hemoglobin 26.9 L Mean Corpuscular Hemoglobin Concent 30.6 L Red Cell Distribution Width 17.7 H Platelet Count 138 L Mean Platelet Volume 12.7 H Neutrophils % 77.0 Lymphocytes % 17.4 Monocytes % 4.0 Eosinophils % 0.7 Basophils % 0.2 Nucleated Red Blood Cells % 0.0 Neutrophils # 9.4 H Lymphocytes # 2.1 Monocytes # 0.5 Eosinophils # 0.1 Basophils # 0.0 Nucleated Red Blood Cells # 0.0 Sodium Level 137 Potassium Level 3.6 Chloride Level 115 H Carbon Dioxide Level 21 Anion Gap 5 L Blood Urea Nitrogen 16 Creatinine 0.69 Glucose Level 77 Calcium Level 7.8 L Test 11/03/16 06:36 11/03/16 13:02 Bedside Glucose 81 74 Medications Medications Current Medications Ondansetron HCl (Zofran Inj) 4 mg Q6H PRN IV NAUSEA AND/OR VOMITING Last administered on 10/27/16 13:51; Admin Dose 4 MG; Start 10/25/16 at 11:00 Nitroglycerin (Nitroglycerin (Sl Tab) 0.4 Mg) 1 tab Q5M PRN SL CHEST PAIN; Start 10/25/16 at 11:00 Acetaminophen (Tylenol Tab) 650 mg Q6H PRN PO PAIN LEVEL 1-3 OR FEVER; Start at 11:00 Acetaminophen (Tylenol Supp) 650 mg Q4H PRN [place] PAIN LEVEL 1-3 OR FEVER; Start 10/25/16 at 11:00 Docusate Sodium (Colace) 100 mg Q12H PRN PO CONSTIPATION; Start 10/25/16 at 11: 00 Bisacodyl (Dulcolax Supp) 10 mg DAILY PRN [place] CONSTIPATION; Start 10/25/16 at 11: 00 Amiodarone HCl (Cordarone) 400 mg BID GTB Last administered on 11/01/16 10:22 ; Admin Dose 400 MG; Start 10/25/16 at 21:00 Ascorbic Acid (Vitamin C) 500 mg DAILY GTB Last administered on 11/01/16 10:21 ; Admin Dose 500 MG; Start 10/26/16 at 09:00 Chlorhexidine Gluconate (Peridex) 15 ml Q12 MM Last administered on 11/03/16 08:49; Admin Dose 15 ML; Start 10/25/16 at 21:00 Collagenase (Santyl) 1 applic DAILY TOP Last administered on 11/03/16 13:48; Admin Dose 1 APPLIC; Start 10/26/16 at 09:00 Ferrous Sulfate (Feosol Liquid Cup) 330 mg DAILY GTB Last administered on 10:29; Admin Dose 330 MG; Start 10/26/16 at 09:00 Multivitamins Therapeutic (Theragran) 1 tab DAILY GTB Last administered on 11/01 10:20; Admin Dose 1 TAB; Start 10/26/16 at 09:00 Lactobacillus Acidoph/Bulgaricus (Floranex) 1 tab BID PO Last administered on 21:40; Admin Dose 1 TAB; Start 10/25/16 at 21:00 Fenofibrate (Tricor) 145 mg DAILY PO Last administered on 11/01/16 10:20; Admin Dose 145 MG; Start 10/26/16 at 09:00 IV Flush (NS 10 ml) 10 ml PRN PRN IV IV PROTOCOL; Start 10/25/16 at 11:30 Atorvastatin Calcium (Lipitor) 20 mg HS PO Last administered on 11/01/16 21:40 ; Admin Dose 20 MG; Start 10/25/16 at 21:00 Pantoprazole (Protonix Iv) 40 mg BID IV Last administered on 11/03/16 08:49; Admin Dose 40 MG; Start 10/25/16 at 21:00 Miscellaneous Information 1 ea NOTE XX ; Start 10/26/16 at 09:30 Glucose (Glutose) 15 gm Q15M PRN PO DECREASED GLUCOSE; Start 10/26/16 at 09:30 Glucose (Glutose) 22.5 gm Q15M PRN PO DECREASED GLUCOSE; Start 10/26/16 at 09:30 Dextrose (D50w Syringe) 25 ml Q15M PRN IV DECREASED GLUCOSE Last administered on 11/01/16 15:12; Admin Dose 25 ML; Start 10/26/16 at 09:30 Dextrose (D50w Syringe) 50 ml Q15M PRN IV DECREASED GLUCOSE; Start 10/26/16 at 09:30 Glucagon (Glucagen) 1 mg Q15M PRN IM DECREASED GLUCOSE; Start 10/26/16 at 09:30 Glucose (Glutose) 15 gm Q15M PRN BUCCAL DECREASED GLUCOSE; Start 10/26/16 at 09: 30 Insulin Glargine (Lantus) 12 unit DAILY@20 SC Last administered on 10/30/16 21 :46; Admin Dose 12 UNIT; Start 10/26/16 at 20:00 Sodium Hypochlorite (Dakin'S (1/4 Strength)) 1 applic DAILY IRR Last administered on 11/03/16 13:48; Admin Dose 1 APPLIC; Start 10/27/16 at 09:00 Insulin Aspart (Novolog Insulin Pen) NOVOLOG *MILD* ALGORI... Q6 SC Last administered on 10/29/16 17:51; Admin Dose 1 UNIT; Start 10/29/16 at 12:00 Linezolid 600 mg 600 mg BID PO Last administered on 11/01/16 21:40; Admin Dose 600 MG; Start 10/30/16 at 21:00 Colistimethate Sodium/Sodium Chloride (Coly-Mycin/NS) 100 ml @ 200 mls/hr Q12 IVPB Last administered on 11/03/16 08:48; Admin Dose 200 MLS/HR; Start at 21:00 Non-Formulary Medication 10 ml 10 ml QID GTB Last administered on 11/01/16 21: 39; Admin Dose 10 ML; Start 10/31/16 at 17:00 Potassium Chloride/Dextrose/ Sod Cl (D5-1/2ns + KCl 20 Meq) 1,000 ml @ 60 mls/ hr [id number] IV Last administered on 11/03/16 07:56; Admin Dose 60 MLS/HR; Start 11/02/16 at 12:30 Mupirocin 1 applic 1 applic BID TOP Last administered on 11/03/16 08:49; Admin Dose 1 APPLIC; Start 11/02/16 at 16:30 Metronidazole (Flagyl 500 Mg (Pmx)) 100 ml @ 100 mls/hr Q8 IVPB Last administered on 11/03/16 14:13; Admin Dose 100 MLS/HR; Start 11/02/16 at 15:30 JORGE CAZARES MD Nov 03, 2016 15:33
--- NOTE | 2016-11-03 15:36 | PN ---
Date/Time of Note Date/Time of Note DATE: 11/03/16 TIME: 15:34 Assessment/Plan VTE Prophylaxis VTE Prophylaxis Intervention: SCD's Lines/Catheters IV Catheter Type (from Nrs): PICC Line Central line still needed: No Urinary Cath still in place: Yes Reason Cath still needed: urinary retention Assessment/Plan Assessment/Plan Septic shock Acute blood loss anemia Elevated troponin likely secondary to above Respiratory failure Paroxysmal atrial fibrillation, currently sinus rhythm Paroxysmal atrial tachycardia Preserved ejection fraction Acute kidney injury -Blood pressure trend improved, IV fluids as per nephrology. Continue to hold any antihypertensives at the current time. No anticoagulation given history of recurrent hematuria - possibly in the future Subjective 24 Hr Interval Summary Free Text/Dictation the patient with no cahgne Exam/Review of Systems Vital Signs Vitals Vital Signs Date Time Temp Pulse Resp B/P Pulse Ox O2 Delivery O2 Flow Rate FiO2 11/03/16 13:30 102 18 98 30 11/03/16 11:04 98.2 99/54 11/01/16 15:44 Mechanical Ventilator Intake and Output 11/02/16 11/02/16 11/03/16 15:00 23:00 07:00 Intake Total 100 ml Output Total 1100 ml 750 ml Balance -1100 ml -650 ml Results Result Diagram: 11/03/16 0630 11/03/16 0630 Results 24 hrs Laboratory Tests Test 11/02/16 18:11 11/02/16 20:06 11/03/16 00:53 11/03/16 06:30 Bedside Glucose 80 72 85 White Blood Count 12.2 #H Red Blood Count 2.75 L Hemoglobin 7.4 L Hematocrit 24.2 L Mean Corpuscular Volume 88.0 Mean Corpuscular Hemoglobin 26.9 L Mean Corpuscular Hemoglobin Concent 30.6 L Red Cell Distribution Width 17.7 H Platelet Count 138 L Mean Platelet Volume 12.7 H Neutrophils % 77.0 Lymphocytes % 17.4 Monocytes % 4.0 Eosinophils % 0.7 Basophils % 0.2 Nucleated Red Blood Cells % 0.0 Neutrophils # 9.4 H Lymphocytes # 2.1 Monocytes # 0.5 Eosinophils # 0.1 Basophils # 0.0 Nucleated Red Blood Cells # 0.0 Sodium Level 137 Potassium Level 3.6 Chloride Level 115 H Carbon Dioxide Level 21 Anion Gap 5 L Blood Urea Nitrogen 16 Creatinine 0.69 Glucose Level 77 Calcium Level 7.8 L Test 11/03/16 06:36 11/03/16 13:02 Bedside Glucose 81 74 Medications Medications Current Medications Ondansetron HCl (Zofran Inj) 4 mg Q6H PRN IV NAUSEA AND/OR VOMITING Last administered on 10/27/16 13:51; Admin Dose 4 MG; Start 10/25/16 at 11:00 Nitroglycerin (Nitroglycerin (Sl Tab) 0.4 Mg) 1 tab Q5M PRN SL CHEST PAIN; Start 10/25/16 at 11:00 Acetaminophen (Tylenol Tab) 650 mg Q6H PRN PO PAIN LEVEL 1-3 OR FEVER; Start at 11:00 Acetaminophen (Tylenol Supp) 650 mg Q4H PRN NE PAIN LEVEL 1-3 OR FEVER; Start 10/25/16 at 11:00 Docusate Sodium (Colace) 100 mg Q12H PRN PO CONSTIPATION; Start 10/25/16 at 11: 00 Bisacodyl (Dulcolax Supp) 10 mg DAILY PRN NE CONSTIPATION; Start 10/25/16 at 11: 00 Amiodarone HCl (Cordarone) 400 mg BID GTB Last administered on 11/01/16 10:22 ; Admin Dose 400 MG; Start 10/25/16 at 21:00 Ascorbic Acid (Vitamin C) 500 mg DAILY GTB Last administered on 11/01/16 10:21 ; Admin Dose 500 MG; Start 10/26/16 at 09:00 Chlorhexidine Gluconate (Peridex) 15 ml Q12 MM Last administered on 11/03/16 08:49; Admin Dose 15 ML; Start 10/25/16 at 21:00 Collagenase (Santyl) 1 applic DAILY TOP Last administered on 11/03/16 13:48; Admin Dose 1 APPLIC; Start 10/26/16 at 09:00 Ferrous Sulfate (Feosol Liquid Cup) 330 mg DAILY GTB Last administered on 10:29; Admin Dose 330 MG; Start 10/26/16 at 09:00 Multivitamins Therapeutic (Theragran) 1 tab DAILY GTB Last administered on 11/01 10:20; Admin Dose 1 TAB; Start 10/26/16 at 09:00 Lactobacillus Acidoph/Bulgaricus (Floranex) 1 tab BID PO Last administered on 21:40; Admin Dose 1 TAB; Start 10/25/16 at 21:00 Fenofibrate (Tricor) 145 mg DAILY PO Last administered on 11/01/16 10:20; Admin Dose 145 MG; Start 10/26/16 at 09:00 IV Flush (NS 10 ml) 10 ml PRN PRN IV IV PROTOCOL; Start 10/25/16 at 11:30 Atorvastatin Calcium (Lipitor) 20 mg HS PO Last administered on 11/01/16 21:40 ; Admin Dose 20 MG; Start 10/25/16 at 21:00 Pantoprazole (Protonix Iv) 40 mg BID IV Last administered on 11/03/16 08:49; Admin Dose 40 MG; Start 10/25/16 at 21:00 Miscellaneous Information 1 ea NOTE XX ; Start 10/26/16 at 09:30 Glucose (Glutose) 15 gm Q15M PRN PO DECREASED GLUCOSE; Start 10/26/16 at 09:30 Glucose (Glutose) 22.5 gm Q15M PRN PO DECREASED GLUCOSE; Start 10/26/16 at 09:30 Dextrose (D50w Syringe) 25 ml Q15M PRN IV DECREASED GLUCOSE Last administered on 11/01/16 15:12; Admin Dose 25 ML; Start 10/26/16 at 09:30 Dextrose (D50w Syringe) 50 ml Q15M PRN IV DECREASED GLUCOSE; Start 10/26/16 at 09:30 Glucagon (Glucagen) 1 mg Q15M PRN IM DECREASED GLUCOSE; Start 10/26/16 at 09:30 Glucose (Glutose) 15 gm Q15M PRN BUCCAL DECREASED GLUCOSE; Start 10/26/16 at 09: 30 Insulin Glargine (Lantus) 12 unit DAILY@20 SC Last administered on 10/30/16 21 :46; Admin Dose 12 UNIT; Start 10/26/16 at 20:00 Sodium Hypochlorite (Dakin'S (1/4 Strength)) 1 applic DAILY IRR Last administered on 11/03/16 13:48; Admin Dose 1 APPLIC; Start 10/27/16 at 09:00 Insulin Aspart (Novolog Insulin Pen) NOVOLOG *MILD* ALGORI... Q6 SC Last administered on 10/29/16 17:51; Admin Dose 1 UNIT; Start 10/29/16 at 12:00 Linezolid 600 mg 600 mg BID PO Last administered on 11/01/16 21:40; Admin Dose 600 MG; Start 10/30/16 at 21:00 Colistimethate Sodium/Sodium Chloride (Coly-Mycin/NS) 100 ml @ 200 mls/hr Q12 IVPB Last administered on 11/03/16 08:48; Admin Dose 200 MLS/HR; Start at 21:00 Non-Formulary Medication 10 ml 10 ml QID GTB Last administered on 11/01/16 21: 39; Admin Dose 10 ML; Start 10/31/16 at 17:00 Potassium Chloride/Dextrose/ Sod Cl (D5-1/2ns + KCl 20 Meq) 1,000 ml @ 60 mls/ hr [id number] IV Last administered on 11/03/16 07:56; Admin Dose 60 MLS/HR; Start 11/02/16 at 12:30 Mupirocin 1 applic 1 applic BID TOP Last administered on 11/03/16 08:49; Admin Dose 1 APPLIC; Start 11/02/16 at 16:30 Metronidazole (Flagyl 500 Mg (Pmx)) 100 ml @ 100 mls/hr Q8 IVPB Last administered on 11/03/16 14:13; Admin Dose 100 MLS/HR; Start 11/02/16 at 15:30 JORGE CAZARES MD Nov 03, 2016 15:36
--- NOTE | 2016-11-03 15:44 | CONS ---
Date/Time of Note Date/Time of Note DATE: 11/03/16 TIME: 15:42 Assessment/Plan Assessment/Plan Chief Complaint/Hosp Course SUBJECTIVE: No events overnight. No fevers. The patient is nonverbal, non- communicative. No fevers MICROBIOLOGY: Sacral wound on admission grew MRSA, Acinetobacter baumannii. Urine culture grew E. coli, Morganella. Blood cultures grew coagulase-negative staph and Proteus mirabilis. Repeat blood cultures negative. MRSA swab came back positive. INDWELLINGS: Trach, Ferreira, PEG. PICC line placed on 10/25/2016. ANTIMICROBIALS: The patient is on: 1. Zyvox. 2. Colistin. 3. Bactroban to the nares. 4. Flagyl PHYSICAL EXAMINATION: GENERAL: This is a chronically ill-appearing, elderly man, who is in no distress. HEENT: Head atraumatic, normocephalic. Sclerae anicteric. Buccal mucosa dry. NECK: Supple. Tracheostomy present. CHEST: Chest rise is symmetrical. Breath sounds diminished. HEART: S1, S2. ABDOMEN: Soft. G-tube site with some leakage. EXTREMITIES: Without cyanosis. ASSESSMENT: 1. Sepsis with polymicrobial bacteremia. 2. Recurrent urinary tract infections. 3. Sacral decubitus, status post debridement. 4. Methicillin-resistant Staphylococcus aureus nares colonization. 5. Anemia, status post esophagogastroduodenoscopy and colonoscopy. 6. Ileus PLAN: The patient remains stable. Continue present care, abx, GI/card/pulmonary /urology rec-s. S/p PEG. DW staff Problems: Consultation Date/Type/Reason Admit Date/Time Oct 25, 2016 at 10:54 Initial Consult Date 10/25/16 Type of Consultation: id Referring Provider: DILIP ARELLANO MD Exam/Review of Systems Vital Signs Vitals Vital Signs Date Time Temp Pulse Resp B/P Pulse Ox O2 Delivery O2 Flow Rate FiO2 11/03/16 13:30 102 18 98 30 11/03/16 11:04 98.2 99/54 11/01/16 15:44 Mechanical Ventilator Intake and Output 11/02/16 11/02/16 11/03/16 15:00 23:00 07:00 Intake Total 100 ml Output Total 1100 ml 750 ml Balance -1100 ml -650 ml Results Result Diagram: 11/03/16 0630 11/03/16 0630 Results 24 hrs Laboratory Tests Test 11/02/16 18:11 11/02/16 20:06 11/03/16 00:53 11/03/16 06:30 Bedside Glucose 80 72 85 White Blood Count 12.2 #H Red Blood Count 2.75 L Hemoglobin 7.4 L Hematocrit 24.2 L Mean Corpuscular Volume 88.0 Mean Corpuscular Hemoglobin 26.9 L Mean Corpuscular Hemoglobin Concent 30.6 L Red Cell Distribution Width 17.7 H Platelet Count 138 L Mean Platelet Volume 12.7 H Neutrophils % 77.0 Lymphocytes % 17.4 Monocytes % 4.0 Eosinophils % 0.7 Basophils % 0.2 Nucleated Red Blood Cells % 0.0 Neutrophils # 9.4 H Lymphocytes # 2.1 Monocytes # 0.5 Eosinophils # 0.1 Basophils # 0.0 Nucleated Red Blood Cells # 0.0 Sodium Level 137 Potassium Level 3.6 Chloride Level 115 H Carbon Dioxide Level 21 Anion Gap 5 L Blood Urea Nitrogen 16 Creatinine 0.69 Glucose Level 77 Calcium Level 7.8 L Test 11/03/16 06:36 11/03/16 13:02 Bedside Glucose 81 74 Medications Medications Current Medications Ondansetron HCl (Zofran Inj) 4 mg Q6H PRN IV NAUSEA AND/OR VOMITING Last administered on 10/27/16 13:51; Admin Dose 4 MG; Start 10/25/16 at 11:00 Nitroglycerin (Nitroglycerin (Sl Tab) 0.4 Mg) 1 tab Q5M PRN SL CHEST PAIN; Start 10/25/16 at 11:00 Acetaminophen (Tylenol Tab) 650 mg Q6H PRN PO PAIN LEVEL 1-3 OR FEVER; Start at 11:00 Acetaminophen (Tylenol Supp) 650 mg Q4H PRN RI PAIN LEVEL 1-3 OR FEVER; Start 10/25/16 at 11:00 Docusate Sodium (Colace) 100 mg Q12H PRN PO CONSTIPATION; Start 10/25/16 at 11: 00 Bisacodyl (Dulcolax Supp) 10 mg DAILY PRN RI CONSTIPATION; Start 10/25/16 at 11: 00 Amiodarone HCl (Cordarone) 400 mg BID GTB Last administered on 11/01/16 10:22 ; Admin Dose 400 MG; Start 10/25/16 at 21:00 Ascorbic Acid (Vitamin C) 500 mg DAILY GTB Last administered on 11/01/16 10:21 ; Admin Dose 500 MG; Start 10/26/16 at 09:00 Chlorhexidine Gluconate (Peridex) 15 ml Q12 MM Last administered on 11/03/16 08:49; Admin Dose 15 ML; Start 10/25/16 at 21:00 Collagenase (Santyl) 1 applic DAILY TOP Last administered on 11/03/16 13:48; Admin Dose 1 APPLIC; Start 10/26/16 at 09:00 Ferrous Sulfate (Feosol Liquid Cup) 330 mg DAILY GTB Last administered on 10:29; Admin Dose 330 MG; Start 10/26/16 at 09:00 Multivitamins Therapeutic (Theragran) 1 tab DAILY GTB Last administered on 11/01 10:20; Admin Dose 1 TAB; Start 10/26/16 at 09:00 Lactobacillus Acidoph/Bulgaricus (Floranex) 1 tab BID PO Last administered on 21:40; Admin Dose 1 TAB; Start 10/25/16 at 21:00 Fenofibrate (Tricor) 145 mg DAILY PO Last administered on 11/01/16 10:20; Admin Dose 145 MG; Start 10/26/16 at 09:00 IV Flush (NS 10 ml) 10 ml PRN PRN IV IV PROTOCOL; Start 10/25/16 at 11:30 Atorvastatin Calcium (Lipitor) 20 mg HS PO Last administered on 11/01/16 21:40 ; Admin Dose 20 MG; Start 10/25/16 at 21:00 Pantoprazole (Protonix Iv) 40 mg BID IV Last administered on 11/03/16 08:49; Admin Dose 40 MG; Start 10/25/16 at 21:00 Miscellaneous Information 1 ea NOTE XX ; Start 10/26/16 at 09:30 Glucose (Glutose) 15 gm Q15M PRN PO DECREASED GLUCOSE; Start 10/26/16 at 09:30 Glucose (Glutose) 22.5 gm Q15M PRN PO DECREASED GLUCOSE; Start 10/26/16 at 09:30 Dextrose (D50w Syringe) 25 ml Q15M PRN IV DECREASED GLUCOSE Last administered on 11/01/16 15:12; Admin Dose 25 ML; Start 10/26/16 at 09:30 Dextrose (D50w Syringe) 50 ml Q15M PRN IV DECREASED GLUCOSE; Start 10/26/16 at 09:30 Glucagon (Glucagen) 1 mg Q15M PRN IM DECREASED GLUCOSE; Start 10/26/16 at 09:30 Glucose (Glutose) 15 gm Q15M PRN BUCCAL DECREASED GLUCOSE; Start 10/26/16 at 09: 30 Insulin Glargine (Lantus) 12 unit DAILY@20 SC Last administered on 10/30/16 21 :46; Admin Dose 12 UNIT; Start 10/26/16 at 20:00 Sodium Hypochlorite (Dakin'S (07/26 Strength)) 1 applic DAILY IRR Last administered on 11/03/16 13:48; Admin Dose 1 APPLIC; Start 10/27/16 at 09:00 Insulin Aspart (Novolog Insulin Pen) NOVOLOG *MILD* ALGORI... Q6 SC Last administered on 10/29/16 17:51; Admin Dose 1 UNIT; Start 10/29/16 at 12:00 Linezolid 600 mg 600 mg BID PO Last administered on 11/01/16 21:40; Admin Dose 600 MG; Start 10/30/16 at 21:00 Colistimethate Sodium/Sodium Chloride (Coly-Mycin/NS) 100 ml @ 200 mls/hr Q12 IVPB Last administered on 11/03/16 08:48; Admin Dose 200 MLS/HR; Start at 21:00 Non-Formulary Medication 10 ml 10 ml QID GTB Last administered on 11/01/16 21: 39; Admin Dose 10 ML; Start 10/31/16 at 17:00 Potassium Chloride/Dextrose/ Sod Cl (D5-1/2ns + KCl 20 Meq) 1,000 ml @ 60 mls/ hr [id number] IV Last administered on 11/03/16 07:56; Admin Dose 60 MLS/HR; Start 11/02/16 at 12:30 Mupirocin 1 applic 1 applic BID TOP Last administered on 11/03/16 08:49; Admin Dose 1 APPLIC; Start 11/02/16 at 16:30 Metronidazole (Flagyl 500 Mg (Pmx)) 100 ml @ 100 mls/hr Q8 IVPB Last administered on 11/03/16t 14:13; Admin Dose 100 MLS/HR; Start 11/02/16 at 15:30 ADITYA CALLAHAN NP Nov 03, 2016 15:44
[2016-11-03] MEDS: DEXTROSE 50% 50 ML SYRINGE IV PRN (17:45)
[2016-11-03] MEDS: INSULIN GLARGINE [LANtus] 3 ML PEN SC SCH (20:00)
[2016-11-03] MEDS: ATORVASTATIN 20 MG TAB PO SCH (20:32)
--- NOTE | 2016-11-03 22:52 | PN ---
Date/Time of Note Date/Time of Note DATE: 11/03/16 TIME: 22:51 Assessment/Plan Lines/Catheters IV Catheter Type (from [facility]): PICC Line Ferreira in Place (from [facility]): Yes Assessment/Plan Chief Complaint/Hosp Course 1. Sacral deep tissue injury s/p excisional debridement 11/01 -offloading -optimize nutrition per feeding tube -vitamin C administration -local care. 2. Lower extremity decubitus ulcerations as above. 3. Shock (sepsis plus or minus hypovolemia, plus or minus cardiac). Improved -Continue judicious fluid management, cardiac optimization and treatment of underlying infections. 4. Urinary tract infection. Continue antibiotics. 5. Significant anemia of unknown etiology. EGD performed. Colonoscopy noted . -await path -gi/medical management -tx prn 6. Diabetes. Continue nutrition and medication control. 7. Elevated troponin with non-ST elevation myocardial infarction. Continue cardiac optimization. 8. History of cerebrovascular accident. Continue medical optimization. 9. Peptic ulcer disease. Continue proton pump inhibitors. 10. Coronary artery disease. Continue cardiac optimization. 11. Acute renal insufficiency secondary to above. Continue judicious fluid management. 12. Ventilator-dependent respiratory failure. Continue pulmonary toilet. 13. Dysphagia and tube feeds s/p PEG Thank you, Problems: Subjective 24 Hr Interval Summary s/p Exc huy sacrum 11/01. s/p Colonoscopy 10/31. No f/c. No cough. No sz/ rash. No bloating. No vomiting. Leukocytosis improving. Bowel function. Exam/Review of Systems Vital Signs Vitals Vital Signs Date Time Temp Pulse Resp B/P Pulse Ox O2 Delivery O2 Flow Rate FiO2 11/03/16 21:25 92 15 97 30 11/03/16 20:52 98/53 11/03/16 20:31 99.1 11/01/16 15:44 Mechanical Ventilator Intake and Output 11/02/16 11/02/16 11/03/16 15:00 23:00 07:00 Intake Total 100 ml Output Total 1100 ml 750 ml Balance -1100 ml -650 ml Exam Free Text/Dictation GENERAL: Awake but noncommunicative. HEENT: The pupils are equal and reactive. No scleral icterus. Mucous membranes are moist. NECK: Trach in place. No JVD. PULMONARY: Decreased breath sounds. No wheezing. CARDIAC: S1, S2 present. ABDOMEN: Soft. PEG in place. EXTREMITIES: Minimal edema. VASCULAR: Capillary refill is 3 seconds. NEUROLOGIC: Awake, but does not follow commands. SKIN: Sacrococcygeal ulcer with packing. Bilateral lower extremity skin injuries. Results Result Diagram: 11/03/16 0630 11/03/16 0630 MINNIE SHIELDS MD Nov 03, 2016 22:52
[2016-11-04] VITALS (33 sets, daily range): BP systolic 79–106; BP diastolic 48–57; PULSE 79–112; RESP 12–19
[2016-11-04] MEDS: metroNIDAZOLE 500 MG/NS (PMX) 100 ML IVPB SCH ×3 (05:09→21:51)
[2016-11-04] MEDS: D5W-0.45 NACL + KCL 20 MEQ 1,000 ML IV SCH ×2 (05:11→14:30)
[2016-11-04] MEDS: INSULIN ASPART [NOVOLOG] 3 ML PEN SC SCH ×3 (05:21→17:54)
[2016-11-04 06:15] LABS: ADD SCAN DIFF NO
[2016-11-04 06:24] LABS: BASOPHILS % 0.2 % (0.0-2.0); EOSINOPHILS # 0.1 10^3/ul (0.0-0.5); EOSINOPHILS % 0.8 % (0.0-7.0); HEMATOCRIT 27.1 % (42.0-52.0); HEMOGLOBIN 8.1 g/dl (14.0-18.0); LYMPHOCYTES # 1.6 10^3/ul (0.8-2.9); LYMPHOCYTES % 16.3 % (15.0-51.0); MEAN CORPUSCULAR HEMOGLOBIN 26.5 pg (29.0-33.0); MEAN CORPUSCULAR HGB CONC 29.9 g/dl (32.0-37.0); MEAN CORPUSCULAR VOLUME 88.6 fl (82.0-101.0); MEAN PLATELET VOLUME 12.7 fl (7.4-10.4); MONOCYTE # 0.5 10^3/ul (0.3-0.9); MONOCYTES % 4.5 % (0.0-11.0); NEUTROPHIL # 7.7 10^3/ul (1.6-7.5); NEUTROPHILS % 77.5 % (39.0-77.0); PLATELET COUNT 140 10^3/UL (140-415); RED BLOOD COUNT 3.06 10^6/ul (4.70-6.10); RED CELL DISTRIBUTION WIDTH 17.3 % (11.5-14.5)
[2016-11-04 06:45] LABS: POTASSIUM 3.2 mmol/L (3.5-5.1)
[2016-11-04 06:48] LABS: CREATININE 0.72 mg/dl (0.61-1.24)
[2016-11-04 06:49] LABS: CALCIUM 8.2 mg/dl (8.4-10.2)
[2016-11-04] MEDS: DEXTROSE 50% 50 ML SYRINGE IV PRN (07:38)
--- NOTE | 2016-11-04 08:46 | PN ---
Date/Time of Note Date/Time of Note DATE: 11/04/16 TIME: 08:45 Assessment/Plan VTE Prophylaxis VTE Prophylaxis Intervention: SCD's Lines/Catheters IV Catheter Type (from Nrs): PICC Line Central line still needed: No Urinary Cath still in place: Yes Reason Cath still needed: urinary retention Assessment/Plan Assessment/Plan Septic shock Acute blood loss anemia Elevated troponin likely secondary to above Respiratory failure Paroxysmal atrial fibrillation, currently sinus rhythm Paroxysmal atrial tachycardia Preserved ejection fraction Acute kidney injury Hypokalemia -Blood pressure trend improved, IV fluids as per nephrology. Continue to hold any antihypertensives at the current time. No anticoagulation given history of recurrent hematuria - possibly in the future -rx kcl due to hypokalemia - renal service involved Subjective 24 Hr Interval Summary Free Text/Dictation The patient stable at this time Exam/Review of Systems Vital Signs Vitals Vital Signs Date Time Temp Pulse Resp B/P Pulse Ox O2 Delivery O2 Flow Rate FiO2 11/04/16 08:28 88 11/04/16 07:17 98.6 18 95/51 96 11/04/16 05:28 30 11/03/16 23:47 Mechanical Ventilator Intake and Output 11/03/16 11/03/16 11/04/16 15:00 23:00 07:00 Intake Total 1460 ml 850 ml Output Total 1100 ml 750 ml Balance 360 ml 100 ml Results Result Diagram: 11/04/1617 11/04/1617 Results 24 hrs Laboratory Tests Test 11/03/16 13:02 11/03/16 17:38 11/03/16 19:23 11/03/16 23:45 Bedside Glucose 74 62 L 82 73 Test 11/04/16 05:17 11/04/16 05:19 11/04/16 07:35 11/04/16 07:56 White Blood Count 10.0 Red Blood Count 3.06 L Hemoglobin 8.1 L Hematocrit 27.1 L Mean Corpuscular Volume 88.6 Mean Corpuscular Hemoglobin 26.5 L Mean Corpuscular Hemoglobin Concent 29.9 L Red Cell Distribution Width 17.3 H Platelet Count 140 Mean Platelet Volume 12.7 H Neutrophils % 77.5 H Lymphocytes % 16.3 Monocytes % 4.5 Eosinophils % 0.8 Basophils % 0.2 Nucleated Red Blood Cells % 0.0 Neutrophils # 7.7 H Lymphocytes # 1.6 Monocytes # 0.5 Eosinophils # 0.1 Basophils # 0.0 Nucleated Red Blood Cells # 0.0 Sodium Level 141 Potassium Level 3.2 L Chloride Level 113 H Carbon Dioxide Level 20 L Anion Gap 11 Blood Urea Nitrogen 13 Creatinine 0.72 Glucose Level 89 Calcium Level 8.2 L Bedside Glucose 83 67 L 97 Test 11/04/16 08:18 Bedside Glucose 95 Medications Medications Current Medications Ondansetron HCl (Zofran Inj) 4 mg Q6H PRN IV NAUSEA AND/OR VOMITING Last administered on 10/27/16 13:51; Admin Dose 4 MG; Start 10/25/16 at 11:00 Nitroglycerin (Nitroglycerin (Sl Tab) 0.4 Mg) 1 tab Q5M PRN SL CHEST PAIN; Start 10/25/16 at 11:00 Acetaminophen (Tylenol Tab) 650 mg Q6H PRN PO PAIN LEVEL 1-3 OR FEVER; Start at 11:00 Acetaminophen (Tylenol Supp) 650 mg Q4H PRN DC PAIN LEVEL 1-3 OR FEVER; Start 10/25/16 at 11:00 Docusate Sodium (Colace) 100 mg Q12H PRN PO CONSTIPATION; Start 10/25/16 at 11: 00 Bisacodyl (Dulcolax Supp) 10 mg DAILY PRN DC CONSTIPATION; Start 10/25/16 at 11: 00 Amiodarone HCl (Cordarone) 400 mg BID GTB Last administered on 11/01/16 10:22 ; Admin Dose 400 MG; Start 10/25/16 at 21:00 Ascorbic Acid (Vitamin C) 500 mg DAILY GTB Last administered on 11/01/16 10:21 ; Admin Dose 500 MG; Start 10/26/16 at 09:00 Chlorhexidine Gluconate (Peridex) 15 ml Q12 MM Last administered on 11/03/16 20:41; Admin Dose 15 ML; Start 10/25/16 at 21:00 Collagenase (Santyl) 1 applic DAILY TOP Last administered on 11/03/16 13:48; Admin Dose 1 APPLIC; Start 10/26/16 at 09:00 Ferrous Sulfate (Feosol Liquid Cup) 330 mg DAILY GTB Last administered on 10:29; Admin Dose 330 MG; Start 10/26/16 at 09:00 Multivitamins Therapeutic (Theragran) 1 tab DAILY GTB Last administered on 11/01 10:20; Admin Dose 1 TAB; Start 10/26/16 at 09:00 Lactobacillus Acidoph/Bulgaricus (Floranex) 1 tab BID PO Last administered on 21:40; Admin Dose 1 TAB; Start 10/25/16 at 21:00 Fenofibrate (Tricor) 145 mg DAILY PO Last administered on 11/01/16 10:20; Admin Dose 145 MG; Start 10/26/16 at 09:00 IV Flush (NS 10 ml) 10 ml PRN PRN IV IV PROTOCOL; Start 10/25/16 at 11:30 Atorvastatin Calcium (Lipitor) 20 mg HS PO Last administered on 11/01/16 21:40 ; Admin Dose 20 MG; Start 10/25/16 at 21:00 Pantoprazole (Protonix Iv) 40 mg BID IV Last administered on 11/03/16 20:42; Admin Dose 40 MG; Start 10/25/16 at 21:00 Miscellaneous Information 1 ea NOTE XX ; Start 10/26/16 at 09:30 Glucose (Glutose) 15 gm Q15M PRN PO DECREASED GLUCOSE; Start 10/26/16 at 09:30 Glucose (Glutose) 22.5 gm Q15M PRN PO DECREASED GLUCOSE; Start 10/26/16 at 09:30 Dextrose (D50w Syringe) 25 ml Q15M PRN IV DECREASED GLUCOSE Last administered on 11/04/16 07:38; Admin Dose 25 ML; Start 10/26/16 at 09:30 Dextrose (D50w Syringe) 50 ml Q15M PRN IV DECREASED GLUCOSE; Start 10/26/16 at 09:30 Glucagon (Glucagen) 1 mg Q15M PRN IM DECREASED GLUCOSE; Start 10/26/16 at 09:30 Glucose (Glutose) 15 gm Q15M PRN BUCCAL DECREASED GLUCOSE; Start 10/26/16 at 09: 30 Insulin Glargine (Lantus) 12 unit DAILY@20 SC Last administered on 10/30/16 21 :46; Admin Dose 12 UNIT; Start 10/26/16 at 20:00 Sodium Hypochlorite (Dakin'S (1/4 Strength)) 1 applic DAILY IRR Last administered on 11/03/16 13:48; Admin Dose 1 APPLIC; Start 10/27/16 at 09:00 Insulin Aspart (Novolog Insulin Pen) NOVOLOG *MILD* ALGORI... Q6 SC Last administered on 10/29/16 17:51; Admin Dose 1 UNIT; Start 10/29/16 at 12:00 Linezolid 600 mg 600 mg BID PO Last administered on 11/01/16 21:40; Admin Dose 600 MG; Start 10/30/16 at 21:00 Colistimethate Sodium/Sodium Chloride (Coly-Mycin/NS) 100 ml @ 200 mls/hr Q12 IVPB Last administered on 11/03/16 20:47; Admin Dose 200 MLS/HR; Start at 21:00 Non-Formulary Medication 10 ml 10 ml QID GTB Last administered on 11/01/16 21: 39; Admin Dose 10 ML; Start 10/31/16 at 17:00 Potassium Chloride/Dextrose/ Sod Cl (D5-1/2ns + KCl 20 Meq) 1,000 ml @ 60 mls/ hr [id number] IV Last administered on 11/04/16 05:11; Admin Dose 60 MLS/HR; Start 11/02/16 at 12:30 Mupirocin 1 applic 1 applic BID TOP Last administered on 11/03/16 20:48; Admin Dose 1 APPLIC; Start 11/02/16 at 16:30 Metronidazole (Flagyl 500 Mg (Pmx)) 100 ml @ 100 mls/hr Q8 IVPB Last administered on 11/04/16 05:09; Admin Dose 100 MLS/HR; Start 11/02/16 at 15:30 JORGE CAZARES MD Nov 04, 2016 08:46
[2016-11-04] MEDS: AMIODARONE 200 MG TAB GTB SCH ×2 (08:48→21:00)
[2016-11-04] MEDS: SULFASALAZINE GTB SCH ×4 (08:48→21:00)
[2016-11-04] MEDS: MULTIVITAMINS THERAPEUTIC TAB GTB SCH (08:49)
[2016-11-04] MEDS: SODIUM HYPOCHLORITE 0.125% 473 ML BTL IRR SCH (08:49)
[2016-11-04] MEDS: ASCORBIC ACID 500 MG TAB GTB SCH (08:49)
[2016-11-04] MEDS: FERROUS SULFATE 60 MG/ML 5ML CUP GTB SCH (08:49)
[2016-11-04] MEDS: ZYVOX 600 MG TAB PO SCH ×2 (08:50→21:00)
[2016-11-04] MEDS: FENOFIBRATE 145 MG TAB PO SCH (08:50)
[2016-11-04] MEDS: CHLORHEXIDINE GLUCONATE 15 ML UD CUP MM SCH ×2 (08:50→21:50)
[2016-11-04] MEDS: COLISTIMETHATE 75 MG in SOD CHLORIDE 0.9% 100 ML IVPB SCH ×2 (08:50→21:50)
[2016-11-04] MEDS: MUPIROCIN 2% 22 GM OINT TOP SCH ×2 (08:50→21:51)
[2016-11-04] MEDS: LACTOBACILLUS CHEW TAB PO SCH ×2 (08:50→21:00)
[2016-11-04] MEDS: PANTOPRAZOLE 40 MG INJ IV SCH ×2 (08:50→21:50)
[2016-11-04] MEDS: COLLAGENASE 30 GM TUBE TOP SCH (08:51)
--- NOTE | 2016-11-04 10:43 | PN ---
DATE: 11/04/2016 SUBJECTIVE: Gross hematuria. The patient himself is on a respirator and has no complaints that he could express. OBJECTIVE: VITAL SIGNS: His temperature is 98.6, pulse is 86, respirations 18, blood pressure 95/51. ABDOMEN: Obese. GENITOURINARY: The Ferreira catheter is draining clear urine. There is no more hematuria. LABORATORY DATA: CBC shows a white count of 10.0, hemoglobin 8.1, hematocrit 27.1. BUN is 13, crea tinine 0.72, sodium 141, potassium 3.2, chloride 113, CO2 of 20. The patient is getting potassium c hloride IV. IMPRESSION: Gross hematuria that has cleared. PLAN: To keep the Ferreira catheter in, and I will change the catheter later on since this catheter lopez s been probably there for a while. Dictated By: TANA DUBOIS/GENOVEVA Conf#: [id number] DID#: [id number]
--- NOTE | 2016-11-04 12:05 | CONS ---
Date/Time of Note Date/Time of Note DATE: 11/04/16 TIME: 12:01 Assessment/Plan Assessment/Plan Additional Assessment/Plan Sepsis resolving Anemia * GI bleed evaluate lower vs tumors vs others * s/p EGD 10/27/2016. 1.Gastrostomy tube in the body of the stomach.Otherwise, normal esophagogastroduodenoscopy with no bleeding site identified * Status post bedside PEG reinsertion * s/o 10/31/2016 Colonoscopy * 1. An 8 mm ulcer in the proximal descending colon, biopsied. * 2. A 4 cm ulcer in the cecum, biopsied. * 3. Normal ileum. * 4. Otherwise, normal colonic mucosa. * 5. Large internal hemorrhoids. Ventilator dependent respiratory failure Decubitus ulcer sacral Diabetes mellitus History of Hypertension Dyslipidemia Plan * Review KUB in a.m. to assess colonic ileus * Monitor tube feed for residual every 12 hours, hold tube feeds for residual greater than 150 mL * Monitor H&H daily, transfuse 1 unit for hemoglobin less than 7.5 and 2 units for hemoglobin less than 7 * Further recommendations pending clinical course * Patient seen in collaboration with Dr. Overton Consultation Date/Type/Reason Admit Date/Time Oct 25, 2016 at 10:54 Initial Consult Date 10/25/16 Type of Consultation: GI Referring Provider: DILIP ARELLANO MD 24 HR Interval Summary Free Text/Dictation Pt had large stool last night and this morning We will restart tube feed at 30ml and monitor residuals Exam/Review of Systems Vital Signs Vitals Vital Signs Date Time Temp Pulse Resp B/P Pulse Ox O2 Delivery O2 Flow Rate FiO2 11/04/16 09:25 86 18 98 30 11/04/16 07:17 98.6 95/51 11/03/16 23:47 Mechanical Ventilator Intake and Output 11/03/16 11/03/16 11/04/16 15:00 23:00 07:00 Intake Total 1460 ml 850 ml Output Total 1100 ml 750 ml Balance 360 ml 100 ml Exam Constitutional: frail, non-verbal Neck: supple Respiratory: diminished breath sounds, other (trach to vent) Cardiovascular: nl pulses, regular rate and rhythm Gastrointestinal: non-tender, other (G-tube in abdomen,minimal drainage, slight erythema), soft Results Result Diagram: 11/04/1651611/04/16516 Results 24 hrs Laboratory Tests Test 11/03/16 13:02 11/03/16 17:38 11/03/16 19:23 11/03/16 23:45 Bedside Glucose 74 62 L 82 73 Test 11/04/16 05:17 11/04/16 05:19 11/04/16 07:35 11/04/16 07:56 White Blood Count 10.0 Red Blood Count 3.06 L Hemoglobin 8.1 L Hematocrit 27.1 L Mean Corpuscular Volume 88.6 Mean Corpuscular Hemoglobin 26.5 L Mean Corpuscular Hemoglobin Concent 29.9 L Red Cell Distribution Width 17.3 H Platelet Count 140 Mean Platelet Volume 12.7 H Neutrophils % 77.5 H Lymphocytes % 16.3 Monocytes % 4.5 Eosinophils % 0.8 Basophils % 0.2 Nucleated Red Blood Cells % 0.0 Neutrophils # 7.7 H Lymphocytes # 1.6 Monocytes # 0.5 Eosinophils # 0.1 Basophils # 0.0 Nucleated Red Blood Cells # 0.0 Sodium Level 141 Potassium Level 3.2 L Chloride Level 113 H Carbon Dioxide Level 20 L Anion Gap 11 Blood Urea Nitrogen 13 Creatinine 0.72 Glucose Level 89 Calcium Level 8.2 L Bedside Glucose 83 67 L 97 Test 11/04/16 08:18 11/04/16 11:47 Bedside Glucose 95 75 Medications Medications Current Medications Ondansetron HCl (Zofran Inj) 4 mg Q6H PRN IV NAUSEA AND/OR VOMITING Last administered on 10/27/16t 13:51; Admin Dose 4 MG; Start 10/25/16 at 11:00 Nitroglycerin (Nitroglycerin (Sl Tab) 0.4 Mg) 1 tab Q5M PRN SL CHEST PAIN; Start 10/25/16 at 11:00 Acetaminophen (Tylenol Tab) 650 mg Q6H PRN PO PAIN LEVEL 1-3 OR FEVER; Start at 11:00 Acetaminophen (Tylenol Supp) 650 mg Q4H PRN [place] PAIN LEVEL 1-3 OR FEVER; Start 10/25/16 at 11:00 Docusate Sodium (Colace) 100 mg Q12H PRN PO CONSTIPATION; Start 10/25/16 at 11: 00 Bisacodyl (Dulcolax Supp) 10 mg DAILY PRN [place] CONSTIPATION; Start 10/25/16 at 11: 00 Amiodarone HCl (Cordarone) 400 mg BID GTB Last administered on 11/01/16 10:22 ; Admin Dose 400 MG; Start 10/25/16 at 21:00 Ascorbic Acid (Vitamin C) 500 mg DAILY GTB Last administered on 11/01/16 10:21 ; Admin Dose 500 MG; Start 10/26/16 at 09:00 Chlorhexidine Gluconate (Peridex) 15 ml Q12 MM Last administered on 11/04/16 08:50; Admin Dose 15 ML; Start 10/25/16 at 21:00 Collagenase (Santyl) 1 applic DAILY TOP Last administered on 11/04/16 08:51; Admin Dose 1 APPLIC; Start 10/26/16 at 09:00 Ferrous Sulfate (Feosol Liquid Cup) 330 mg DAILY GTB Last administered on 10:29; Admin Dose 330 MG; Start 10/26/16 at 09:00 Multivitamins Therapeutic (Theragran) 1 tab DAILY GTB Last administered on 11/01 10:20; Admin Dose 1 TAB; Start 10/26/16 at 09:00 Lactobacillus Acidoph/Bulgaricus (Floranex) 1 tab BID PO Last administered on 21:40; Admin Dose 1 TAB; Start 10/25/16 at 21:00 Fenofibrate (Tricor) 145 mg DAILY PO Last administered on 11/01/16 10:20; Admin Dose 145 MG; Start 10/26/16 at 09:00 IV Flush (NS 10 ml) 10 ml PRN PRN IV IV PROTOCOL; Start 10/25/16 at 11:30 Atorvastatin Calcium (Lipitor) 20 mg HS PO Last administered on 11/01/16 21:40 ; Admin Dose 20 MG; Start 10/25/16 at 21:00 Pantoprazole (Protonix Iv) 40 mg BID IV Last administered on 11/04/16 08:50; Admin Dose 40 MG; Start 10/25/16 at 21:00 Miscellaneous Information 1 ea NOTE XX ; Start 10/26/16 at 09:30 Glucose (Glutose) 15 gm Q15M PRN PO DECREASED GLUCOSE; Start 10/26/16 at 09:30 Glucose (Glutose) 22.5 gm Q15M PRN PO DECREASED GLUCOSE; Start 10/26/16 at 09:30 Dextrose (D50w Syringe) 25 ml Q15M PRN IV DECREASED GLUCOSE Last administered on 11/04/16 07:38; Admin Dose 25 ML; Start 10/26/16 at 09:30 Dextrose (D50w Syringe) 50 ml Q15M PRN IV DECREASED GLUCOSE; Start 10/26/16 at 09:30 Glucagon (Glucagen) 1 mg Q15M PRN IM DECREASED GLUCOSE; Start 10/26/16 at 09:30 Glucose (Glutose) 15 gm Q15M PRN BUCCAL DECREASED GLUCOSE; Start 10/26/16 at 09: 30 Insulin Glargine (Lantus) 12 unit DAILY@20 SC Last administered on 10/30/16 21 :46; Admin Dose 12 UNIT; Start 10/26/16 at 20:00 Sodium Hypochlorite (Dakin'S (/ Strength)) 1 applic DAILY IRR Last administered on 11/04/16 08:49; Admin Dose 1 APPLIC; Start 10/27/16 at 09:00 Insulin Aspart (Novolog Insulin Pen) NOVOLOG *MILD* ALGORI... Q6 SC Last administered on 10/29/16 17:51; Admin Dose 1 UNIT; Start 10/29/16 at 12:00 Linezolid 600 mg 600 mg BID PO Last administered on 11/01/16 21:40; Admin Dose 600 MG; Start 10/30/16 at 21:00 Colistimethate Sodium/Sodium Chloride (Coly-Mycin/NS) 100 ml @ 200 mls/hr Q12 IVPB Last administered on 11/04/16 08:50; Admin Dose 200 MLS/HR; Start at 21:00 Non-Formulary Medication 10 ml 10 ml QID GTB Last administered on 11/01/16 21: 39; Admin Dose 10 ML; Start 10/31/16 at 17:00 Potassium Chloride/Dextrose/ Sod Cl (D5-1/2ns + KCl 20 Meq) 1,000 ml @ 60 mls/ hr [id number] IV Last administered on 11/04/16 05:11; Admin Dose 60 MLS/HR; Start 11/02/16 at 12:30 Mupirocin 1 applic 1 applic BID TOP Last administered on 11/04/16 08:50; Admin Dose 1 APPLIC; Start 11/02/16 at 16:30 Metronidazole (Flagyl 500 Mg (Pmx)) 100 ml @ 100 mls/hr Q8 IVPB Last administered on 11/04/16t 05:09; Admin Dose 100 MLS/HR; Start 11/02/16 at 15:30 SABINE STEWART Nov 04, 2016 12:05
--- NOTE | 2016-11-04 16:36 | PN ---
Date/Time of Note Date/Time of Note DATE: 11/04/16 TIME: 16:32 Assessment/Plan Lines/Catheters IV Catheter Type (from [facility]): PICC Line Ferreira in Place (from [facility]): Yes Assessment/Plan Chief Complaint/Hosp Course 1. Sacral deep tissue injury s/p excisional debridement 11/01 -offloading -optimize nutrition per feeding tube -vitamin C administration -local care. 2. Lower extremity decubitus ulcerations as above. 3. Shock (sepsis plus or minus hypovolemia, plus or minus cardiac). Improved -Continue judicious fluid management, cardiac optimization and treatment of underlying infections. 4. Urinary tract infection. Continue antibiotics. 5. Significant anemia of unknown etiology. EGD performed. Colonoscopy noted . -await path -gi/medical management -tx prn 6. Diabetes. Continue nutrition and medication control. 7. Elevated troponin with non-ST elevation myocardial infarction. Continue cardiac optimization. 8. History of cerebrovascular accident. Continue medical optimization. 9. Peptic ulcer disease. Continue proton pump inhibitors. 10. Coronary artery disease. Continue cardiac optimization. 11. Acute renal insufficiency secondary to above. Continue judicious fluid management. 12. Ventilator-dependent respiratory failure. Continue pulmonary toilet. 13. Dysphagia and tube feeds s/p PEG Thank you, Problems: Subjective 24 Hr Interval Summary s/p Exc huy sacrum 11/01. s/p Colonoscopy 10/31. Fevers with tachycardia. No cough. No sz/rash. No bloating. No vomiting. Leukocytosis improved. Bowel function. Exam/Review of Systems Vital Signs Vitals Vital Signs Date Time Temp Pulse Resp B/P Pulse Ox O2 Delivery O2 Flow Rate FiO2 11/04/16 16:21 99.0 109 91/50 11/04/16 15:21 18 98 11/04/16 13:48 30 11/03/16 23:47 Mechanical Ventilator Intake and Output 11/03/16 11/03/16 11/04/16 15:00 23:00 07:00 Intake Total 1460 ml 850 ml Output Total 1100 ml 750 ml Balance 360 ml 100 ml Exam Free Text/Dictation GENERAL: Awake but noncommunicative. HEENT: The pupils are equal and reactive. No scleral icterus. Mucous membranes are moist. NECK: Trach in place. No JVD. PULMONARY: Decreased breath sounds. No wheezing. CARDIAC: S1, S2 present. ABDOMEN: Soft. PEG in place. EXTREMITIES: Minimal edema. VASCULAR: Capillary refill is 3 seconds. NEUROLOGIC: Awake, but does not follow commands. SKIN: Sacrococcygeal ulcer with packing. Bilateral lower extremity skin injuries. Results Result Diagram: 11/04/16 0517 11/04/16 0517 MINNIE SHIELDS MD Nov 04, 2016 16:36
[2016-11-04] MEDS: INSULIN GLARGINE [LANtus] 3 ML PEN SC SCH (20:00)
--- NOTE | 2016-11-04 20:40 | CONS ---
Date/Time of Note Date/Time of Note DATE: 11/04/16 TIME: 20:38 Assessment/Plan Assessment/Plan Chief Complaint/Hosp Course SUBJECTIVE: No events overnight. No fevers. The patient is non- communicative. NAD MICROBIOLOGY: Sacral wound on admission grew MRSA, Acinetobacter baumannii. Urine culture grew E. coli, Morganella. Blood cultures grew coagulase-negative staph and Proteus mirabilis. Repeat blood cultures negative. MRSA swab came back positive. INDWELLINGS: Trach, Ferreira, PEG. PICC line placed on 10/25/2016. ANTIMICROBIALS: 1. Zyvox. 2. Colistin. 3. Bactroban to the nares. 4. Flagyl PHYSICAL EXAMINATION: GENERAL: This is a chronically ill-appearing, elderly man, who is in no distress. HEENT: Head atraumatic, normocephalic. Sclerae anicteric. Buccal mucosa dry. NECK: Supple. Tracheostomy present. CHEST: Chest rise is symmetrical. Breath sounds diminished. HEART: S1, S2. ABDOMEN: Soft. G-tube site with some leakage. EXTREMITIES: Without cyanosis. ASSESSMENT: 1. Sepsis with polymicrobial bacteremia==> repeat bld cx negative. 2. Recurrent urinary tract infections. 3. Sacral decubitus, status post debridement. 4. Methicillin-resistant Staphylococcus aureus nares colonization. 5. Anemia, status post esophagogastroduodenoscopy and colonoscopy. 6. Ileus PLAN: The patient remains stable. Continue present care, abx, f/u GI/card/ pulmonary/urology/surgical rec-s. DW staff Problems: Consultation Date/Type/Reason Admit Date/Time Oct 25, 2016 at 10:54 Initial Consult Date 10/25/16 Type of Consultation: ID Referring Provider: DILIP ARELLANO MD Exam/Review of Systems Vital Signs Vitals Vital Signs Date Time Temp Pulse Resp B/P Pulse Ox O2 Delivery O2 Flow Rate FiO2 11/04/16 19:41 96 18 100 30 11/04/16 19:32 98.3 106/56 11/03/16 23:47 Mechanical Ventilator Intake and Output 11/03/16 11/03/16 11/04/16 15:00 23:00 07:00 Intake Total 1460 ml 850 ml Output Total 1100 ml 750 ml Balance 360 ml 100 ml Results Result Diagram: 11/04/1651611/04/1617 Results 24 hrs Laboratory Tests Test 11/03/16 23:45 11/04/16 05:17 11/04/16 05:19 11/04/16 07:35 Bedside Glucose 73 83 67 L White Blood Count 10.0 Red Blood Count 3.06 L Hemoglobin 8.1 L Hematocrit 27.1 L Mean Corpuscular Volume 88.6 Mean Corpuscular Hemoglobin 26.5 L Mean Corpuscular Hemoglobin Concent 29.9 L Red Cell Distribution Width 17.3 H Platelet Count 140 Mean Platelet Volume 12.7 H Neutrophils % 77.5 H Lymphocytes % 16.3 Monocytes % 4.5 Eosinophils % 0.8 Basophils % 0.2 Nucleated Red Blood Cells % 0.0 Neutrophils # 7.7 H Lymphocytes # 1.6 Monocytes # 0.5 Eosinophils # 0.1 Basophils # 0.0 Nucleated Red Blood Cells # 0.0 Sodium Level 141 Potassium Level 3.2 L Chloride Level 113 H Carbon Dioxide Level 20 L Anion Gap 11 Blood Urea Nitrogen 13 Creatinine 0.72 Glucose Level 89 Calcium Level 8.2 L Test 11/04/16 07:56 11/04/16 08:18 11/04/16 11:47 11/04/16 16:04 Bedside Glucose 97 95 75 95 Test 11/04/16 17:19 Bedside Glucose 93 Medications Medications Current Medications Ondansetron HCl (Zofran Inj) 4 mg Q6H PRN IV NAUSEA AND/OR VOMITING Last administered on 10/27/16 13:51; Admin Dose 4 MG; Start 10/25/16 at 11:00 Nitroglycerin (Nitroglycerin (Sl Tab) 0.4 Mg) 1 tab Q5M PRN SL CHEST PAIN; Start 10/25/16 at 11:00 Acetaminophen (Tylenol Tab) 650 mg Q6H PRN PO PAIN LEVEL 1-3 OR FEVER Last administered on 11/04/16 15:30; Admin Dose 650 MG; Start 10/25/16 at 11:00 Acetaminophen (Tylenol Supp) 650 mg Q4H PRN [place] PAIN LEVEL 1-3 OR FEVER; Start 10/25/16 at 11:00 Docusate Sodium (Colace) 100 mg Q12H PRN PO CONSTIPATION; Start 10/25/16 at 11: 00 Bisacodyl (Dulcolax Supp) 10 mg DAILY PRN [place] CONSTIPATION; Start 10/25/16 at 11: 00 Amiodarone HCl (Cordarone) 400 mg BID GTB Last administered on 11/01/16 10:22 ; Admin Dose 400 MG; Start 10/25/16 at 21:00 Ascorbic Acid (Vitamin C) 500 mg DAILY GTB Last administered on 11/01/16 10:21 ; Admin Dose 500 MG; Start 10/26/16 at 09:00 Chlorhexidine Gluconate (Peridex) 15 ml Q12 MM Last administered on 11/04/16 08:50; Admin Dose 15 ML; Start 10/25/16 at 21:00 Collagenase (Santyl) 1 applic DAILY TOP Last administered on 11/04/16 08:51; Admin Dose 1 APPLIC; Start 10/26/16 at 09:00 Ferrous Sulfate (Feosol Liquid Cup) 330 mg DAILY GTB Last administered on 10:29; Admin Dose 330 MG; Start 10/26/16 at 09:00 Multivitamins Therapeutic (Theragran) 1 tab DAILY GTB Last administered on 11/01 10:20; Admin Dose 1 TAB; Start 10/26/16 at 09:00 Lactobacillus Acidoph/Bulgaricus (Floranex) 1 tab BID PO Last administered on 21:40; Admin Dose 1 TAB; Start 10/25/16 at 21:00 Fenofibrate (Tricor) 145 mg DAILY PO Last administered on 11/01/16 10:20; Admin Dose 145 MG; Start 10/26/16 at 09:00 IV Flush (NS 10 ml) 10 ml PRN PRN IV IV PROTOCOL; Start 10/25/16 at 11:30 Atorvastatin Calcium (Lipitor) 20 mg HS PO Last administered on 11/01/16 21:40 ; Admin Dose 20 MG; Start 10/25/16 at 21:00 Pantoprazole (Protonix Iv) 40 mg BID IV Last administered on 11/04/16 08:50; Admin Dose 40 MG; Start 10/25/16 at 21:00 Miscellaneous Information 1 ea NOTE XX ; Start 10/26/16 at 09:30 Glucose (Glutose) 15 gm Q15M PRN PO DECREASED GLUCOSE; Start 10/26/16 at 09:30 Glucose (Glutose) 22.5 gm Q15M PRN PO DECREASED GLUCOSE; Start 10/26/16 at 09:30 Dextrose (D50w Syringe) 25 ml Q15M PRN IV DECREASED GLUCOSE Last administered on 11/04/16 07:38; Admin Dose 25 ML; Start 10/26/16 at 09:30 Dextrose (D50w Syringe) 50 ml Q15M PRN IV DECREASED GLUCOSE; Start 10/26/16 at 09:30 Glucagon (Glucagen) 1 mg Q15M PRN IM DECREASED GLUCOSE; Start 10/26/16 at 09:30 Glucose (Glutose) 15 gm Q15M PRN BUCCAL DECREASED GLUCOSE; Start 10/26/16 at 09: 30 Insulin Glargine (Lantus) 12 unit DAILY@20 SC Last administered on 10/30/16 21 :46; Admin Dose 12 UNIT; Start 10/26/16 at 20:00 Sodium Hypochlorite (Dakin'S (1/4 Strength)) 1 applic DAILY IRR Last administered on 11/04/16 08:49; Admin Dose 1 APPLIC; Start 10/27/16 at 09:00 Insulin Aspart (Novolog Insulin Pen) NOVOLOG *MILD* ALGORI... Q6 SC Last administered on 10/29/16 17:51; Admin Dose 1 UNIT; Start 10/29/16 at 12:00 Linezolid 600 mg 600 mg BID PO Last administered on 11/01/16 21:40; Admin Dose 600 MG; Start 10/30/16 at 21:00 Colistimethate Sodium/Sodium Chloride (Coly-Mycin/NS) 100 ml @ 200 mls/hr Q12 IVPB Last administered on 11/04/16 08:50; Admin Dose 200 MLS/HR; Start at 21:00 Non-Formulary Medication 10 ml 10 ml QID GTB Last administered on 11/04/16 17: 59; Admin Dose 10 ML; Start 10/31/16 at 17:00 Potassium Chloride/Dextrose/ Sod Cl (D5-1/2ns + KCl 20 Meq) 1,000 ml @ 60 mls/ hr [id number] IV Last administered on 11/04/16 05:11; Admin Dose 60 MLS/HR; Start 11/02/16 at 12:30 Mupirocin 1 applic 1 applic BID TOP Last administered on 11/04/16 08:50; Admin Dose 1 APPLIC; Start 11/02/16 at 16:30 Metronidazole (Flagyl 500 Mg (Pmx)) 100 ml @ 100 mls/hr Q8 IVPB Last administered on 11/04/16 14:47; Admin Dose 100 MLS/HR; Start 11/02/16 at 15:30 ADITYA CALLAHAN NP Nov 04, 2016 20:39
[2016-11-04] MEDS: ATORVASTATIN 20 MG TAB PO SCH (21:00)
--- NOTE | 2016-11-04 21:57 | PN ---
Date/Time of Note Date/Time of Note DATE: 11/04/16 TIME: 21:51 Assessment/Plan VTE Prophylaxis VTE Prophylaxis Intervention: SCD's Lines/Catheters IV Catheter Type (from Nrs): PICC Line Central line still needed: Yes (IV abx ) Urinary Cath still in place: Yes Reason Cath still needed: urinary retention Assessment/Plan Assessment/Plan 1. S/p Septic shock 2/2 urinary tract infection, Off Pressors now, ID following 2. Ventilator-dependent respiratory failure. Continue vent management by dough cutter. 3. Non-ST myocardial infarction with elevated troponin, likely demand ischemia secondary to anemia. 4. Severe symptomatic anemia due to lower Gi bleeding s/p 2 U PRBC transfusion during this hospitalization- s/p EGD 10/27/2016 with finding of gastrostomy tube in the body of the stomach.Otherwise, normal esophagogastroduodenoscopy with no bleeding site identified s/p 10/31/2016 Colonoscopy and finding of an 8 mm ulcer in the proximal descending colon & A 4 cm ulcer in the cecum with Large internal hemorrhoids. 5. THEO due to ATN from sepsis and prerenal azotemia 7. Diabetic mellitus . Place the patient on Lantus, continue insulin sliding scale. 8. History of essential hypertension. At this time, the patient is hypotensive secondary to septic shock. Hold all blood pressure medication. 9. Dyslipidemia, on statin. 10. Sacral decubitus, continue wound care, status post surgical debridement on 11/01/2016, continue postop care 12. Hematuria, urology has been consulted, resolved 13. PEG tube dysfunction, GI on case DVT prophylaxis; SCD, no Heparin/Lovenox due to GI bleeding CONDITION: Guarded We will continue to monitor patient closely. Further recommendations, management, and treatment as per clinical course. Continue to monitor and telemetry floor Subjective 24 Hr Interval Summary Free Text/Dictation remained stable on ventilator, Bp stable Exam/Review of Systems Vital Signs Vitals Vital Signs Date Time Temp Pulse Resp B/P Pulse Ox O2 Delivery O2 Flow Rate FiO2 11/04/16 21:48 94 106/53 11/04/16 21:28 17 100 30 11/04/16 19:32 98.3 11/03/16 23:47 Mechanical Ventilator Intake and Output 11/03/16 11/03/16 11/04/16 15:00 23:00 07:00 Intake Total 1460 ml 850 ml Output Total 1100 ml 750 ml Balance 360 ml 100 ml Exam General: The patient is cachectic, Not in acute distress. HEENT: Atraumatic, normocephalic. The pupils are equal and round . Neck: Tracheostomy in place Chest: Normal expansion of the thorax during inspiration Lungs: Clear to auscultation bilaterally Heart: Normal S1-S2, Regular rhythm and rate. Abdomen: Soft , nontender, nondistended , bowel sounds are present. + PEG tube in place Extremities: Normal to inspection, no edema no cyanosis Results Result Diagram: 11/04/1651611/04/16516 Results 24 hrs Laboratory Tests Test 11/03/16 23:45 11/04/16 05:17 11/04/16 05:19 11/04/16 07:35 Bedside Glucose 73 83 67 L White Blood Count 10.0 Red Blood Count 3.06 L Hemoglobin 8.1 L Hematocrit 27.1 L Mean Corpuscular Volume 88.6 Mean Corpuscular Hemoglobin 26.5 L Mean Corpuscular Hemoglobin Concent 29.9 L Red Cell Distribution Width 17.3 H Platelet Count 140 Mean Platelet Volume 12.7 H Neutrophils % 77.5 H Lymphocytes % 16.3 Monocytes % 4.5 Eosinophils % 0.8 Basophils % 0.2 Nucleated Red Blood Cells % 0.0 Neutrophils # 7.7 H Lymphocytes # 1.6 Monocytes # 0.5 Eosinophils # 0.1 Basophils # 0.0 Nucleated Red Blood Cells # 0.0 Sodium Level 141 Potassium Level 3.2 L Chloride Level 113 H Carbon Dioxide Level 20 L Anion Gap 11 Blood Urea Nitrogen 13 Creatinine 0.72 Glucose Level 89 Calcium Level 8.2 L Test 11/04/16 07:56 11/04/16 08:18 11/04/16 11:47 11/04/16 16:04 Bedside Glucose 97 95 75 95 Test 11/04/16 17:19 11/04/16 21:48 Bedside Glucose 93 98 Medications Medications Current Medications Ondansetron HCl (Zofran Inj) 4 mg Q6H PRN IV NAUSEA AND/OR VOMITING Last administered on 10/27/16t 13:51; Admin Dose 4 MG; Start 10/25/16 at 11:00 Nitroglycerin (Nitroglycerin (Sl Tab) 0.4 Mg) 1 tab Q5M PRN SL CHEST PAIN; Start 10/25/16 at 11:00 Acetaminophen (Tylenol Tab) 650 mg Q6H PRN PO PAIN LEVEL 1-3 OR FEVER Last administered on 11/04/16 15:30; Admin Dose 650 MG; Start 10/25/16 at 11:00 Acetaminophen (Tylenol Supp) 650 mg Q4H PRN [place] PAIN LEVEL 1-3 OR FEVER; Start 10/25/16 at 11:00 Docusate Sodium (Colace) 100 mg Q12H PRN PO CONSTIPATION; Start 10/25/16 at 11: 00 Bisacodyl (Dulcolax Supp) 10 mg DAILY PRN [place] CONSTIPATION; Start 10/25/16 at 11: 00 Amiodarone HCl (Cordarone) 400 mg BID GTB Last administered on 11/01/16 10:22 ; Admin Dose 400 MG; Start 10/25/16 at 21:00 Ascorbic Acid (Vitamin C) 500 mg DAILY GTB Last administered on 11/01/16 10:21 ; Admin Dose 500 MG; Start 10/26/16 at 09:00 Chlorhexidine Gluconate (Peridex) 15 ml Q12 MM Last administered on 11/04/16 08:50; Admin Dose 15 ML; Start 10/25/16 at 21:00 Collagenase (Santyl) 1 applic DAILY TOP Last administered on 11/04/16 08:51; Admin Dose 1 APPLIC; Start 10/26/16 at 09:00 Ferrous Sulfate (Feosol Liquid Cup) 330 mg DAILY GTB Last administered on 10:29; Admin Dose 330 MG; Start 10/26/16 at 09:00 Multivitamins Therapeutic (Theragran) 1 tab DAILY GTB Last administered on 11/01 10:20; Admin Dose 1 TAB; Start 10/26/16 at 09:00 Lactobacillus Acidoph/Bulgaricus (Floranex) 1 tab BID PO Last administered on 21:40; Admin Dose 1 TAB; Start 10/25/16 at 21:00 Fenofibrate (Tricor) 145 mg DAILY PO Last administered on 11/01/16 10:20; Admin Dose 145 MG; Start 10/26/16 at 09:00 IV Flush (NS 10 ml) 10 ml PRN PRN IV IV PROTOCOL; Start 10/25/16 at 11:30 Atorvastatin Calcium (Lipitor) 20 mg HS PO Last administered on 11/01/16 21:40 ; Admin Dose 20 MG; Start 10/25/16 at 21:00 Pantoprazole (Protonix Iv) 40 mg BID IV Last administered on 11/04/16 08:50; Admin Dose 40 MG; Start 10/25/16 at 21:00 Miscellaneous Information 1 ea NOTE XX ; Start 10/26/16 at 09:30 Glucose (Glutose) 15 gm Q15M PRN PO DECREASED GLUCOSE; Start 10/26/16 at 09:30 Glucose (Glutose) 22.5 gm Q15M PRN PO DECREASED GLUCOSE; Start 10/26/16 at 09:30 Dextrose (D50w Syringe) 25 ml Q15M PRN IV DECREASED GLUCOSE Last administered on 11/04/16 07:38; Admin Dose 25 ML; Start 10/26/16 at 09:30 Dextrose (D50w Syringe) 50 ml Q15M PRN IV DECREASED GLUCOSE; Start 10/26/16 at 09:30 Glucagon (Glucagen) 1 mg Q15M PRN IM DECREASED GLUCOSE; Start 10/26/16 at 09:30 Glucose (Glutose) 15 gm Q15M PRN BUCCAL DECREASED GLUCOSE; Start 10/26/16 at 09: 30 Insulin Glargine (Lantus) 12 unit DAILY@20 SC Last administered on 10/30/16 21 :46; Admin Dose 12 UNIT; Start 10/26/16 at 20:00 Sodium Hypochlorite (Dakin'S (1/4 Strength)) 1 applic DAILY IRR Last administered on 11/04/16 08:49; Admin Dose 1 APPLIC; Start 10/27/16 at 09:00 Insulin Aspart (Novolog Insulin Pen) NOVOLOG *MILD* ALGORI... Q6 SC Last administered on 10/29/16 17:51; Admin Dose 1 UNIT; Start 10/29/16 at 12:00 Linezolid 600 mg 600 mg BID PO Last administered on 11/01/16 21:40; Admin Dose 600 MG; Start 10/30/16 at 21:00 Colistimethate Sodium/Sodium Chloride (Coly-Mycin/NS) 100 ml @ 200 mls/hr Q12 IVPB Last administered on 11/04/16 08:50; Admin Dose 200 MLS/HR; Start at 21:00 Non-Formulary Medication 10 ml 10 ml QID GTB Last administered on 11/04/16 17: 59; Admin Dose 10 ML; Start 10/31/16 at 17:00 Potassium Chloride/Dextrose/ Sod Cl (D5-1/2ns + KCl 20 Meq) 1,000 ml @ 60 mls/ hr [id number] IV Last administered on 11/04/16 05:11; Admin Dose 60 MLS/HR; Start 11/02/16 at 12:30 Mupirocin 1 applic 1 applic BID TOP Last administered on 11/04/16 08:50; Admin Dose 1 APPLIC; Start 11/02/16 at 16:30 Metronidazole (Flagyl 500 Mg (Pmx)) 100 ml @ 100 mls/hr Q8 IVPB Last administered on 11/04/16 14:47; Admin Dose 100 MLS/HR; Start 11/02/16 at 15:30 DAO PÉREZ MD Nov 04, 2016 21:56
[2016-11-05] VITALS (26 sets, daily range): BP systolic 87–110; BP diastolic 52–55; PULSE 93–109; RESP 14–20
[2016-11-05] MEDS: D5W-0.45 NACL + KCL 20 MEQ 1,000 ML IV SCH (02:36)
--- NOTE | 2016-11-05 03:10 | RADRPT ---
PROCEDURE: XR Abdomen. CLINICAL INDICATION: Colonic ileus. TECHNIQUE: 3 frontal views of the abdomen. COMPARISON: CT abdomen pelvis dated 07/08/2017. Plain film abdomen dated 11/02/2016. Plain film ab domen dated 08/10/2016. FINDINGS: Dilation the cecum measures up to 13 cm, with increased risk of perforation. Differential considerat ions include dilated sigmoid colon. The anatomy is not clear on this plain film series. Recommend CT correlation. Sigmoid colon was filled with stool and CT abdomen and pelvis dated 09/08/2016. Transverse colon measures up to 8 cm. Differential considerations include dilated proximal sigmoid c olon. There is a new small bowel ileus in the left lower quadrant and this is mild to moderate. Cardiomeg douglas with left lung base atelectasis versus airspace disease versus pleural effusion. Right lung bas e is clear. IMPRESSION: 1. New dilation of the cecum measuring up to 13 cm, with increased risk of perforation. 2. Differential considerations include dilated sigmoid colon. 3. Recommend CT correlation. 4. New dilatation of the transverse colon measuring up to about 8 cm, and differential consideratio ns include dilated air-filled sigmoid colon. 3. New mild to moderate small bowel ileus, otherwise nonspecific. RPTAT: [facility]U Physician Kailee Date Time Electronically viewed and signed by Physician Kailee on 11/05/2016 03:09 RS/
[2016-11-05] MEDS: metroNIDAZOLE 500 MG/NS (PMX) 100 ML IVPB SCH ×3 (05:50→21:40)
[2016-11-05] MEDS: INSULIN ASPART [NOVOLOG] 3 ML PEN SC SCH ×4 (05:50→17:44)
[2016-11-05] MEDS: ZYVOX 600 MG TAB PO SCH ×2 (09:00→21:00)
[2016-11-05] MEDS: LACTOBACILLUS CHEW TAB PO SCH ×2 (09:00→21:00)
[2016-11-05] MEDS: ASCORBIC ACID 500 MG TAB GTB SCH (09:00)
[2016-11-05] MEDS: FERROUS SULFATE 60 MG/ML 5ML CUP GTB SCH (09:00)
[2016-11-05] MEDS: FENOFIBRATE 145 MG TAB PO SCH (09:00)
[2016-11-05] MEDS: AMIODARONE 200 MG TAB GTB SCH ×2 (09:00→21:00)
[2016-11-05] MEDS: MULTIVITAMINS THERAPEUTIC TAB GTB SCH (09:00)
[2016-11-05] MEDS: SULFASALAZINE GTB SCH ×4 (09:00→21:00)
[2016-11-05] MEDS: CHLORHEXIDINE GLUCONATE 15 ML UD CUP MM SCH ×2 (09:10→21:37)
[2016-11-05] MEDS: COLISTIMETHATE 75 MG in SOD CHLORIDE 0.9% 100 ML IVPB SCH ×2 (09:10→21:35)
[2016-11-05] MEDS: PANTOPRAZOLE 40 MG INJ IV SCH ×2 (09:10→21:35)
[2016-11-05] MEDS: COLLAGENASE 30 GM TUBE TOP SCH (09:11)
[2016-11-05] MEDS: SODIUM HYPOCHLORITE 0.125% 473 ML BTL IRR SCH (09:11)
[2016-11-05] MEDS: MUPIROCIN 2% 22 GM OINT TOP SCH ×2 (09:11→21:38)
--- NOTE | 2016-11-05 11:00 | PN ---
Date/Time of Note Date/Time of Note DATE: 11/05/16 TIME: 10:57 Assessment/Plan VTE Prophylaxis VTE Prophylaxis Intervention: SCD's Lines/Catheters IV Catheter Type (from Nrs): PICC Line Central line still needed: Yes (IV access , IV Fluid, difficult to maintain peripheral access ) Urinary Cath still in place: Yes Reason Cath still needed: urinary retention Assessment/Plan Assessment/Plan 1. S/p Septic shock 2/2 urinary tract infection, Off Pressors now, ID following 2. Ventilator-dependent respiratory failure. 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 3. Non-ST myocardial infarction with elevated troponin, likely demand ischemia secondary to anemia. 4. Severe symptomatic anemia due to lower Gi bleeding s/p 2 U PRBC transfusion during this hospitalization- s/p EGD 10/27/2016 with finding of gastrostomy tube in the body of the stomach.Otherwise, normal esophagogastroduodenoscopy with no bleeding site identified s/p 10/31/2016 Colonoscopy and finding of an 8 mm ulcer in the proximal descending colon & A 4 cm ulcer in the cecum with Large internal hemorrhoids. 5. THEO due to ATN from sepsis and prerenal azotemia 7. Diabetic mellitus . Place the patient on Lantus, continue insulin sliding scale. 8. History of essential hypertension. At this time, the patient is hypotensive secondary to septic shock. Hold all blood pressure medication. 9. Dyslipidemia, on statin. 10. Sacral decubitus, continue wound care, status post surgical debridement on 11/01/2016, continue postop care 12. Hematuria, urology has been consulted, resolved 13. PEG tube dysfunction, GI on case DVT prophylaxis; SCD, no Heparin/Lovenox due to GI bleeding CONDITION: Guarded We will continue to monitor patient closely. Further recommendations, management, and treatment as per clinical course. Continue to monitor and telemetry floor Subjective 24 Hr Interval Summary Free Text/Dictation K low, Bp stable Exam/Review of Systems Vital Signs Vitals Vital Signs Date Time Temp Pulse Resp B/P Pulse Ox O2 Delivery O2 Flow Rate FiO2 11/05/16 08:48 101 11/05/16 08:00 30 11/05/16 07:50 99.0 17 96/52 98 11/03/16 23:47 Mechanical Ventilator Intake and Output 11/04/16 11/04/16 11/05/16 15:00 23:00 07:00 Intake Total 950 ml 750 ml Output Total 400 ml 650 ml Balance 550 ml 100 ml Exam General: The patient is cachectic, Not in acute distress. HEENT: Atraumatic, normocephalic. The pupils are equal and round . Neck: Tracheostomy in place Chest: Normal expansion of the thorax during inspiration Lungs: Clear to auscultation bilaterally Heart: Normal S1-S2, Regular rhythm and rate. Abdomen: Soft , nontender, nondistended , bowel sounds are present. + PEG tube in place Extremities: Normal to inspection, no edema no cyanosis Results Result Diagram: 11/04/1651611/04/16516 Results 24 hrs Laboratory Tests Test 11/04/16 11:47 11/04/16 16:04 11/04/16 17:19 11/04/16 21:48 Bedside Glucose 75 95 93 98 Test 11/05/16 00:27 11/05/16 04:05 11/05/16 05:49 11/05/16 07:47 Bedside Glucose 80 87 89 83 Medications Medications Current Medications Ondansetron HCl (Zofran Inj) 4 mg Q6H PRN IV NAUSEA AND/OR VOMITING Last administered on 10/27/16 13:51; Admin Dose 4 MG; Start 10/25/16 at 11:00 Nitroglycerin (Nitroglycerin (Sl Tab) 0.4 Mg) 1 tab Q5M PRN SL CHEST PAIN; Start 10/25/16 at 11:00 Acetaminophen (Tylenol Tab) 650 mg Q6H PRN PO PAIN LEVEL 1-3 OR FEVER Last administered on 11/04/16 15:30; Admin Dose 650 MG; Start 10/25/16 at 11:00 Acetaminophen (Tylenol Supp) 650 mg Q4H PRN [place] PAIN LEVEL 1-3 OR FEVER; Start 10/25/16 at 11:00 Docusate Sodium (Colace) 100 mg Q12H PRN PO CONSTIPATION; Start 10/25/16 at 11: 00 Bisacodyl (Dulcolax Supp) 10 mg DAILY PRN [place] CONSTIPATION; Start 10/25/16 at 11: 00 Amiodarone HCl (Cordarone) 400 mg BID GTB Last administered on 11/01/16 10:22 ; Admin Dose 400 MG; Start 10/25/16 at 21:00 Ascorbic Acid (Vitamin C) 500 mg DAILY GTB Last administered on 11/01/16 10:21 ; Admin Dose 500 MG; Start 10/26/16 at 09:00 Chlorhexidine Gluconate (Peridex) 15 ml Q12 MM Last administered on 11/05/16 09:10; Admin Dose 15 ML; Start 10/25/16 at 21:00 Collagenase (Santyl) 1 applic DAILY TOP Last administered on 11/05/16 09:11; Admin Dose 1 APPLIC; Start 10/26/16 at 09:00 Ferrous Sulfate (Feosol Liquid Cup) 330 mg DAILY GTB Last administered on 10:29; Admin Dose 330 MG; Start 10/26/16 at 09:00 Multivitamins Therapeutic (Theragran) 1 tab DAILY GTB Last administered on 11/01 10:20; Admin Dose 1 TAB; Start 10/26/16 at 09:00 Lactobacillus Acidoph/Bulgaricus (Floranex) 1 tab BID PO Last administered on 21:40; Admin Dose 1 TAB; Start 10/25/16 at 21:00 Fenofibrate (Tricor) 145 mg DAILY PO Last administered on 11/01/16 10:20; Admin Dose 145 MG; Start 10/26/16 at 09:00 IV Flush (NS 10 ml) 10 ml PRN PRN IV IV PROTOCOL; Start 10/25/16 at 11:30 Atorvastatin Calcium (Lipitor) 20 mg HS PO Last administered on 11/01/16 21:40 ; Admin Dose 20 MG; Start 10/25/16 at 21:00 Pantoprazole (Protonix Iv) 40 mg BID IV Last administered on 11/05/16 09:10; Admin Dose 40 MG; Start 10/25/16 at 21:00 Miscellaneous Information 1 ea NOTE XX ; Start 10/26/16 at 09:30 Glucose (Glutose) 15 gm Q15M PRN PO DECREASED GLUCOSE; Start 10/26/16 at 09:30 Glucose (Glutose) 22.5 gm Q15M PRN PO DECREASED GLUCOSE; Start 10/26/16 at 09:30 Dextrose (D50w Syringe) 25 ml Q15M PRN IV DECREASED GLUCOSE Last administered on 11/04/16 07:38; Admin Dose 25 ML; Start 10/26/16 at 09:30 Dextrose (D50w Syringe) 50 ml Q15M PRN IV DECREASED GLUCOSE; Start 10/26/16 at 09:30 Glucagon (Glucagen) 1 mg Q15M PRN IM DECREASED GLUCOSE; Start 10/26/16 at 09:30 Glucose (Glutose) 15 gm Q15M PRN BUCCAL DECREASED GLUCOSE; Start 10/26/16 at 09: 30 Insulin Glargine (Lantus) 12 unit DAILY@20 SC Last administered on 10/30/16 21 :46; Admin Dose 12 UNIT; Start 10/26/16 at 20:00 Sodium Hypochlorite (Dakin'S (07/26 Strength)) 1 applic DAILY IRR Last administered on 11/05/16 09:11; Admin Dose 1 APPLIC; Start 10/27/16 at 09:00 Insulin Aspart (Novolog Insulin Pen) NOVOLOG *MILD* ALGORI... Q6 SC Last administered on 10/29/16 17:51; Admin Dose 1 UNIT; Start 10/29/16 at 12:00 Linezolid 600 mg 600 mg BID PO Last administered on 11/01/16 21:40; Admin Dose 600 MG; Start 10/30/16 at 21:00 Colistimethate Sodium/Sodium Chloride (Coly-Mycin/NS) 100 ml @ 200 mls/hr Q12 IVPB Last administered on 11/05/16 09:10; Admin Dose 200 MLS/HR; Start at 21:00 Non-Formulary Medication 10 ml 10 ml QID GTB Last administered on 11/04/16 17: 59; Admin Dose 10 ML; Start 10/31/16 at 17:00 Potassium Chloride/Dextrose/ Sod Cl (D5-1/2ns + KCl 20 Meq) 1,000 ml @ 60 mls/ hr [id number] IV Last administered on 11/05/16 02:36; Admin Dose 60 MLS/HR; Start 11/02/16 at 12:30 Mupirocin 1 applic 1 applic BID TOP Last administered on 11/05/16 09:11; Admin Dose 1 APPLIC; Start 11/02/16 at 16:30 Metronidazole (Flagyl 500 Mg (Pmx)) 100 ml @ 100 mls/hr Q8 IVPB Last administered on 11/05/16t 05:50; Admin Dose 100 MLS/HR; Start 11/02/16 at 15:30 DAO PÉREZ MD Nov 05, 2016 10:59
--- NOTE | 2016-11-05 11:55 | PN ---
Date/Time of Note Date/Time of Note DATE: 11/05/16 TIME: 11:54 Assessment/Plan VTE Prophylaxis VTE Prophylaxis Intervention: SCD's Lines/Catheters IV Catheter Type (from Nrsg): PICC Line Central line still needed: No Urinary Cath still in place: Yes Reason Cath still needed: urinary retention Assessment/Plan Assessment/Plan Septic shock Acute blood loss anemia Elevated troponin likely secondary to above Respiratory failure Paroxysmal atrial fibrillation, currently sinus rhythm Paroxysmal atrial tachycardia Preserved ejection fraction Acute kidney injury Hypokalemia -Blood pressure trend improved, IV fluids as per nephrology. Continue to hold any antihypertensives at the current time. No anticoagulation given history of recurrent hematuria - possibly in the future -rx kcl due to hypokalemia - renal service involved Subjective 24 Hr Interval Summary Free Text/Dictation the patient with no cahge Exam/Review of Systems Vital Signs Vitals Vital Signs Date Time Temp Pulse Resp B/P Pulse Ox O2 Delivery O2 Flow Rate FiO2 11/05/16 11:49 93 18 100 30 11/05/16 11:19 99.0 89/54 11/03/16 23:47 Mechanical Ventilator Intake and Output 11/04/16 11/04/16 11/05/16 15:00 23:00 07:00 Intake Total 950 ml 750 ml Output Total 400 ml 650 ml Balance 550 ml 100 ml Results Result Diagram: 11/04/1651611/04/16 0517 Results 24 hrs Laboratory Tests Test 11/04/16 16:04 11/04/16 17:19 11/04/16 21:48 11/05/16 00:27 Bedside Glucose 95 93 98 80 Test 11/05/16 04:05 11/05/16 05:49 11/05/16 07:47 11/05/16 11:42 Bedside Glucose 87 89 83 80 Medications Medications Current Medications Ondansetron HCl (Zofran Inj) 4 mg Q6H PRN IV NAUSEA AND/OR VOMITING Last administered on 10/27/16 13:51; Admin Dose 4 MG; Start 10/25/16 at 11:00 Nitroglycerin (Nitroglycerin (Sl Tab) 0.4 Mg) 1 tab Q5M PRN SL CHEST PAIN; Start 10/25/16 at 11:00 Acetaminophen (Tylenol Tab) 650 mg Q6H PRN PO PAIN LEVEL 1-3 OR FEVER Last administered on 11/04/16 15:30; Admin Dose 650 MG; Start 10/25/16 at 11:00 Acetaminophen (Tylenol Supp) 650 mg Q4H PRN [place] PAIN LEVEL 1-3 OR FEVER; Start 10/25/16 at 11:00 Docusate Sodium (Colace) 100 mg Q12H PRN PO CONSTIPATION; Start 10/25/16 at 11: 00 Bisacodyl (Dulcolax Supp) 10 mg DAILY PRN [place] CONSTIPATION; Start 10/25/16 at 11: 00 Amiodarone HCl (Cordarone) 400 mg BID GTB Last administered on 11/01/16 10:22 ; Admin Dose 400 MG; Start 10/25/16 at 21:00 Ascorbic Acid (Vitamin C) 500 mg DAILY GTB Last administered on 11/01/16 10:21 ; Admin Dose 500 MG; Start 10/26/16 at 09:00 Chlorhexidine Gluconate (Peridex) 15 ml Q12 MM Last administered on 11/05/16 09:10; Admin Dose 15 ML; Start 10/25/16 at 21:00 Collagenase (Santyl) 1 applic DAILY TOP Last administered on 11/05/16 09:11; Admin Dose 1 APPLIC; Start 10/26/16 at 09:00 Ferrous Sulfate (Feosol Liquid Cup) 330 mg DAILY GTB Last administered on 10:29; Admin Dose 330 MG; Start 10/26/16 at 09:00 Multivitamins Therapeutic (Theragran) 1 tab DAILY GTB Last administered on 11/01 10:20; Admin Dose 1 TAB; Start 10/26/16 at 09:00 Lactobacillus Acidoph/Bulgaricus (Floranex) 1 tab BID PO Last administered on 21:40; Admin Dose 1 TAB; Start 10/25/16 at 21:00 Fenofibrate (Tricor) 145 mg DAILY PO Last administered on 11/01/16 10:20; Admin Dose 145 MG; Start 10/26/16 at 09:00 IV Flush (NS 10 ml) 10 ml PRN PRN IV IV PROTOCOL; Start 10/25/16 at 11:30 Atorvastatin Calcium (Lipitor) 20 mg HS PO Last administered on 11/01/16 21:40 ; Admin Dose 20 MG; Start 10/25/16 at 21:00 Pantoprazole (Protonix Iv) 40 mg BID IV Last administered on 11/05/16 09:10; Admin Dose 40 MG; Start 10/25/16 at 21:00 Miscellaneous Information 1 ea NOTE XX ; Start 10/26/16 at 09:30 Glucose (Glutose) 15 gm Q15M PRN PO DECREASED GLUCOSE; Start 10/26/16 at 09:30 Glucose (Glutose) 22.5 gm Q15M PRN PO DECREASED GLUCOSE; Start 10/26/16 at 09:30 Dextrose (D50w Syringe) 25 ml Q15M PRN IV DECREASED GLUCOSE Last administered on 11/04/16 07:38; Admin Dose 25 ML; Start 10/26/16 at 09:30 Dextrose (D50w Syringe) 50 ml Q15M PRN IV DECREASED GLUCOSE; Start 10/26/16 at 09:30 Glucagon (Glucagen) 1 mg Q15M PRN IM DECREASED GLUCOSE; Start 10/26/16 at 09:30 Glucose (Glutose) 15 gm Q15M PRN BUCCAL DECREASED GLUCOSE; Start 10/26/16 at 09: 30 Insulin Glargine (Lantus) 12 unit DAILY@20 SC Last administered on 10/30/16 21 :46; Admin Dose 12 UNIT; Start 10/26/16 at 20:00 Sodium Hypochlorite (Dakin'S (1/4 Strength)) 1 applic DAILY IRR Last administered on 11/05/16 09:11; Admin Dose 1 APPLIC; Start 10/27/16 at 09:00 Insulin Aspart (Novolog Insulin Pen) NOVOLOG *MILD* ALGORI... Q6 SC Last administered on 10/29/16 17:51; Admin Dose 1 UNIT; Start 10/29/16 at 12:00 Linezolid 600 mg 600 mg BID PO Last administered on 11/01/16 21:40; Admin Dose 600 MG; Start 10/30/16 at 21:00 Colistimethate Sodium/Sodium Chloride (Coly-Mycin/NS) 100 ml @ 200 mls/hr Q12 IVPB Last administered on 11/05/16 09:10; Admin Dose 200 MLS/HR; Start at 21:00 Non-Formulary Medication 10 ml 10 ml QID GTB Last administered on 11/04/16 17: 59; Admin Dose 10 ML; Start 10/31/16 at 17:00 Potassium Chloride/Dextrose/ Sod Cl (D5-1/2ns + KCl 20 Meq) 1,000 ml @ 60 mls/ hr [id number] IV Last administered on 11/05/16 02:36; Admin Dose 60 MLS/HR; Start 11/02/16 at 12:30 Mupirocin 1 applic 1 applic BID TOP Last administered on 11/05/16 09:11; Admin Dose 1 APPLIC; Start 11/02/16 at 16:30 Metronidazole (Flagyl 500 Mg (Pmx)) 100 ml @ 100 mls/hr Q8 IVPB Last administered on 11/05/16 05:50; Admin Dose 100 MLS/HR; Start 11/02/16 at 15:30 JORGE CAZARES MD Nov 05, 2016 11:55
--- NOTE | 2016-11-05 13:59 | PN ---
Date/Time of Note Date/Time of Note DATE: 11/05/16 TIME: 13:49 Assessment/Plan VTE Prophylaxis VTE Prophylaxis Intervention: SCD's Lines/Catheters IV [facility] Type (from [facility]): PICC Line Central line still needed: Yes Urinary Cath still in place: Yes Reason Cath still needed: urinary retention Assessment/Plan Chief Complaint/Hosp Course Problems: Assessment/Plan Colonic ileus KUB 11/04/2016 1. New dilation of the cecum measuring up to 13 cm, with increased risk of perforation. 2. Differential considerations include dilated sigmoid colon. 3. Recommend CT correlation. 4. New dilatation of the transverse colon measuring up to about 8 cm , and differential considerations include dilated air-filled sigmoid colon. 3. New mild to moderate small bowel ileus, otherwise nonspecific. Sepsis resolving Anemia * Cecal ulcer /ulcer descending colon * s/p EGD 10/27/2016. 1.Gastrostomy tube in the body of the stomach.Otherwise, normal esophagogastroduodenoscopy with no bleeding site identified * Status post bedside PEG reinsertion * s/o 10/31/2016 Colonoscopy * 1. An 8 mm ulcer in the proximal descending colon, biopsied. * 2. A 4 cm ulcer in the cecum, biopsied. * 3. Normal ileum. * 4. Otherwise, normal colonic mucosa. * 5. Large internal hemorrhoids. Ventilator dependent respiratory failure Decubitus ulcer sacral Diabetes mellitus History of Hypertension Dyslipidemia Plan * npo * insert rectal tube * CT abdomen/ pelvis Subjective 24 Hr Interval Summary Free Text/Dictation * course reviewed with RN * patient seen and examined * Still on npo * KUB * 1. New dilation of the cecum measuring up to 13 cm, with increased risk of perforation. 2. Differential considerations include dilated sigmoid colon. 3. Recommend CT correlation. 4. New dilatation of the transverse colon measuring up to about 8 cm, and differential considerations include dilated air-filled sigmoid colon. 3. New mild to moderate small bowel ileus, otherwise nonspecific. Exam/Review of Systems Vital Signs Vitals Vital Signs Date Time Temp Pulse Resp B/P Pulse Ox O2 Delivery O2 Flow Rate FiO2 11/05/16 13:16 109 11/05/16 11:49 18 100 30 11/05/16 11:19 99.0 89/54 11/03/16 23:47 Mechanical Ventilator Intake and Output 411/04/16 11/05/16 15:00 23:00 07:00 Intake Total 950 ml 750 ml Output Total 400 ml 650 ml Balance 550 ml 100 ml Exam Constitutional: frail Respiratory: clear to auscultation, diminished breath sounds Cardiovascular: nl pulses, regular rate and rhythm Gastrointestinal: bowel sounds, distended, non-tender, soft Skin: other (nultiple decubitus ulcer) Results Result Diagram: 11/04/1651611/04/16516 Results 24 hrs Laboratory Tests Test 11/04/16 16:04 11/04/16 17:19 11/04/16 21:48 11/05/16 00:27 Bedside Glucose 95 93 98 80 Test 11/05/16 04:05 11/05/16 05:49 11/05/16 07:47 11/05/16 11:42 Bedside Glucose 87 89 83 80 Medications Medications Current Medications Ondansetron HCl (Zofran Inj) 4 mg Q6H PRN IV NAUSEA AND/OR VOMITING Last administered on 10/27/16 13:51; Admin Dose 4 MG; Start 10/25/16 at 11:00 Nitroglycerin (Nitroglycerin (Sl Tab) 0.4 Mg) 1 tab Q5M PRN SL CHEST PAIN; Start 10/25/16 at 11:00 Acetaminophen (Tylenol Tab) 650 mg Q6H PRN PO PAIN LEVEL 1-3 OR FEVER Last administered on 11/04/16 15:30; Admin Dose 650 MG; Start 10/25/16 at 11:00 Acetaminophen (Tylenol Supp) 650 mg Q4H PRN [place] PAIN LEVEL 1-3 OR FEVER; Start 10/25/16 at 11:00 Docusate Sodium (Colace) 100 mg Q12H PRN PO CONSTIPATION; Start 10/25/16 at 11: 00 Bisacodyl (Dulcolax Supp) 10 mg DAILY PRN [place] CONSTIPATION; Start 10/25/16 at 11: 00 Amiodarone HCl (Cordarone) 400 mg BID GTB Last administered on 11/01/16 10:22 ; Admin Dose 400 MG; Start 10/25/16 at 21:00 Ascorbic Acid (Vitamin C) 500 mg DAILY GTB Last administered on 11/01/16 10:21 ; Admin Dose 500 MG; Start 4/6/17 at 09:00 Chlorhexidine Gluconate (Peridex) 15 ml Q12 MM Last administered on 11/05/16 09:10; Admin Dose 15 ML; Start 10/25/16 at 21:00 Collagenase (Santyl) 1 applic DAILY TOP Last administered on 11/05/16 09:11; Admin Dose 1 APPLIC; Start 10/26/16 at 09:00 Ferrous Sulfate (Feosol Liquid Cup) 330 mg DAILY GTB Last administered on 10:29; Admin Dose 330 MG; Start 10/26/16 at 09:00 Multivitamins Therapeutic (Theragran) 1 tab DAILY GTB Last administered on 11/01 10:20; Admin Dose 1 TAB; Start 10/26/16 at 09:00 Lactobacillus Acidoph/Bulgaricus (Floranex) 1 tab BID PO Last administered on 21:40; Admin Dose 1 TAB; Start 10/25/16 at 21:00 Fenofibrate (Tricor) 145 mg DAILY PO Last administered on 11/01/16 10:20; Admin Dose 145 MG; Start 10/26/16 at 09:00 IV Flush (NS 10 ml) 10 ml PRN PRN IV IV PROTOCOL; Start 10/25/16 at 11:30 Atorvastatin Calcium (Lipitor) 20 mg HS PO Last administered on 11/01/16 21:40 ; Admin Dose 20 MG; Start 10/25/16 at 21:00 Pantoprazole (Protonix Iv) 40 mg BID IV Last administered on 11/05/16 09:10; Admin Dose 40 MG; Start 10/25/16 at 21:00 Miscellaneous Information 1 ea NOTE XX ; Start 10/26/16 at 09:30 Glucose (Glutose) 15 gm Q15M PRN PO DECREASED GLUCOSE; Start 10/26/16 at 09:30 Glucose (Glutose) 22.5 gm Q15M PRN PO DECREASED GLUCOSE; Start 10/26/16 at 09:30 Dextrose (D50w Syringe) 25 ml Q15M PRN IV DECREASED GLUCOSE Last administered on 11/04/16 07:38; Admin Dose 25 ML; Start 10/26/16 at 09:30 Dextrose (D50w Syringe) 50 ml Q15M PRN IV DECREASED GLUCOSE; Start 10/26/16 at 09:30 Glucagon (Glucagen) 1 mg Q15M PRN IM DECREASED GLUCOSE; Start 10/26/16 at 09:30 Glucose (Glutose) 15 gm Q15M PRN BUCCAL DECREASED GLUCOSE; Start 10/26/16 at 09: 30 Insulin Glargine (Lantus) 12 unit DAILY@20 SC Last administered on 10/30/16 21 :46; Admin Dose 12 UNIT; Start 10/26/16 at 20:00 Sodium Hypochlorite (Dakin'S (07/26 Strength)) 1 applic DAILY IRR Last administered on 11/05/16 09:11; Admin Dose 1 APPLIC; Start 10/27/16 at 09:00 Insulin Aspart (Novolog Insulin Pen) NOVOLOG *MILD* ALGORI... Q6 SC Last administered on 10/29/16 17:51; Admin Dose 1 UNIT; Start 10/29/16 at 12:00 Linezolid 600 mg 600 mg BID PO Last administered on 11/01/16 21:40; Admin Dose 600 MG; Start 10/30/16 at 21:00 Colistimethate Sodium/Sodium Chloride (Coly-Mycin/NS) 100 ml @ 200 mls/hr Q12 IVPB Last administered on 11/05/16 09:10; Admin Dose 200 MLS/HR; Start at 21:00 Non-Formulary Medication 10 ml 10 ml QID GTB Last administered on 11/04/16 17: 59; Admin Dose 10 ML; Start 10/31/16 at 17:00 Potassium Chloride/Dextrose/ Sod Cl (D5-1/2ns + KCl 20 Meq) 1,000 ml @ 60 mls/ hr [id number] IV Last administered on 11/05/16 02:36; Admin Dose 60 MLS/HR; Start 11/02/16 at 12:30 Mupirocin 1 applic 1 applic BID TOP Last administered on 11/05/16 09:11; Admin Dose 1 APPLIC; Start 11/02/16 at 16:30 Metronidazole (Flagyl 500 Mg (Pmx)) 100 ml @ 100 mls/hr Q8 IVPB Last administered on 11/05/16 13:18; Admin Dose 100 MLS/HR; Start 11/02/16 at 15:30 RAYMON BETANCOURT MD Nov 05, 2016 13:59
--- NOTE | 2016-11-05 15:19 | CONS ---
Date/Time of Note Date/Time of Note DATE: 11/05/16 TIME: 15:17 Assessment/Plan Assessment/Plan Additional Assessment/Plan Ventilator settings; AC of 12, tidal volume 550, PEEP of 5, 30% FiO2. Assessment recommendations; 1. Patient admitted for UTI and sepsis also has sacral decubitus ulcer. Currently on broad-spectrum antibiotic coverage. 2. Chronic respiratory failure, ventilator dependent. 3. Anemia. 4. Multi-infarct dementia. Continue current supportive care. Overall prognosis remains poor. Consultation Date/Type/Reason Admit Date/Time Oct 25, 2016 at 10:54 Initial Consult Date 10/25/16 Type of Consultation: Pulmonary/critical care Referring Provider: DILIP ARELLANO MD 24 HR Interval Summary Free Text/Dictation Patient condition remains unchanged. Remains essentially unresponsive. Has remained hemodynamically stable. General exam; elderly male, on ventilator via tracheostomy currently in no distress. Exam/Review of Systems Vital Signs Vitals Vital Signs Date Time Temp Pulse Resp B/P Pulse Ox O2 Delivery O2 Flow Rate FiO2 11/05/16 13:16 109 11/05/16 13:02 18 100 30 11/05/16 11:19 99.0 89/54 11/03/16 23:47 Mechanical Ventilator Intake and Output 11/04/16 11/04/16 11/05/16 15:00 23:00 07:00 Intake Total 950 ml 750 ml Output Total 400 ml 650 ml Balance 550 ml 100 ml Exam HEENT exam is; supple neck, no JVD. No lymphadenopathy. Midline trachea. Tracheostomy in place with clean insertion site. Chest examination OH: Diminished but clear breath sound bilaterally. S1-S2 audible no murmurs. Regular rhythm. Abdomen exam is; soft, G-tube in place. Bowel sounds audible. No organomegaly. Abdomen is nondistended. Extremity exam; no peripheral edema. Patient has severe contractures involving all 4 extremities. 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 Results Result Diagram: 11/04/1651611/04/16516 Results 24 hrs Laboratory Tests Test 11/04/16 16:04 11/04/16 17:19 11/04/16 21:48 11/05/16 00:27 Bedside Glucose 95 93 98 80 Test 11/05/16 04:05 11/05/16 05:49 11/05/16 07:47 11/05/16 11:42 Bedside Glucose 87 89 83 80 Medications Medications Current Medications Ondansetron HCl (Zofran Inj) 4 mg Q6H PRN IV NAUSEA AND/OR VOMITING Last administered on 10/27/16 13:51; Admin Dose 4 MG; Start 10/25/16 at 11:00 Nitroglycerin (Nitroglycerin (Sl Tab) 0.4 Mg) 1 tab Q5M PRN SL CHEST PAIN; Start 10/25/16 at 11:00 Acetaminophen (Tylenol Tab) 650 mg Q6H PRN PO PAIN LEVEL 1-3 OR FEVER Last administered on 11/04/16 15:30; Admin Dose 650 MG; Start 10/25/16 at 11:00 Acetaminophen (Tylenol Supp) 650 mg Q4H PRN MD PAIN LEVEL 1-3 OR FEVER; Start 10/25/16 at 11:00 Docusate Sodium (Colace) 100 mg Q12H PRN PO CONSTIPATION; Start 10/25/16 at 11: 00 Bisacodyl (Dulcolax Supp) 10 mg DAILY PRN MD CONSTIPATION; Start 10/25/16 at 11: 00 Amiodarone HCl (Cordarone) 400 mg BID GTB Last administered on 11/01/16 10:22 ; Admin Dose 400 MG; Start 10/25/16 at 21:00 Ascorbic Acid (Vitamin C) 500 mg DAILY GTB Last administered on 11/01/16 10:21 ; Admin Dose 500 MG; Start 10/26/16 at 09:00 Chlorhexidine Gluconate (Peridex) 15 ml Q12 MM Last administered on 11/05/16 09:10; Admin Dose 15 ML; Start 10/25/16 at 21:00 Collagenase (Santyl) 1 applic DAILY TOP Last administered on 11/05/16 09:11; Admin Dose 1 APPLIC; Start 10/26/16 at 09:00 Ferrous Sulfate (Feosol Liquid Cup) 330 mg DAILY GTB Last administered on 10:29; Admin Dose 330 MG; Start 10/26/16 at 09:00 Multivitamins Therapeutic (Theragran) 1 tab DAILY GTB Last administered on 11/01 10:20; Admin Dose 1 TAB; Start 10/26/16 at 09:00 Lactobacillus Acidoph/Bulgaricus (Floranex) 1 tab BID PO Last administered on 21:40; Admin Dose 1 TAB; Start 10/25/16 at 21:00 Fenofibrate (Tricor) 145 mg DAILY PO Last administered on 11/01/16 10:20; Admin Dose 145 MG; Start 10/26/16 at 09:00 IV Flush (NS 10 ml) 10 ml PRN PRN IV IV PROTOCOL; Start 10/25/16 at 11:30 Atorvastatin Calcium (Lipitor) 20 mg HS PO Last administered on 11/01/16 21:40 ; Admin Dose 20 MG; Start 10/25/16 at 21:00 Pantoprazole (Protonix Iv) 40 mg BID IV Last administered on 11/05/16 09:10; Admin Dose 40 MG; Start 10/25/16 at 21:00 Miscellaneous Information 1 ea NOTE XX ; Start 10/26/16 at 09:30 Glucose (Glutose) 15 gm Q15M PRN PO DECREASED GLUCOSE; Start 10/26/16 at 09:30 Glucose (Glutose) 22.5 gm Q15M PRN PO DECREASED GLUCOSE; Start 10/26/16 at 09:30 Dextrose (D50w Syringe) 25 ml Q15M PRN IV DECREASED GLUCOSE Last administered on 11/04/16 07:38; Admin Dose 25 ML; Start 10/26/16 at 09:30 Dextrose (D50w Syringe) 50 ml Q15M PRN IV DECREASED GLUCOSE; Start 10/26/16 at 09:30 Glucagon (Glucagen) 1 mg Q15M PRN IM DECREASED GLUCOSE; Start 10/26/16 at 09:30 Glucose (Glutose) 15 gm Q15M PRN BUCCAL DECREASED GLUCOSE; Start 10/26/16 at 09: 30 Insulin Glargine (Lantus) 12 unit DAILY@20 SC Last administered on 10/30/16 21 :46; Admin Dose 12 UNIT; Start 10/26/16 at 20:00 Sodium Hypochlorite (Dakin'S (1/4 Strength)) 1 applic DAILY IRR Last administered on 11/05/16 09:11; Admin Dose 1 APPLIC; Start 10/27/16 at 09:00 Insulin Aspart (Novolog Insulin Pen) NOVOLOG *MILD* ALGORI... Q6 SC Last administered on 10/29/16 17:51; Admin Dose 1 UNIT; Start 10/29/16 at 12:00 Linezolid 600 mg 600 mg BID PO Last administered on 11/01/16 21:40; Admin Dose 600 MG; Start 10/30/16 at 21:00 Colistimethate Sodium/Sodium Chloride (Coly-Mycin/NS) 100 ml @ 200 mls/hr Q12 IVPB Last administered on 11/05/16 09:10; Admin Dose 200 MLS/HR; Start at 21:00 Non-Formulary Medication 10 ml 10 ml QID GTB Last administered on 11/04/16 17: 59; Admin Dose 10 ML; Start 10/31/16 at 17:00 Potassium Chloride/Dextrose/ Sod Cl (D5-1/2ns + KCl 20 Meq) 1,000 ml @ 60 mls/ hr [id number] IV Last administered on 11/05/16 02:36; Admin Dose 60 MLS/HR; Start 11/02/16 at 12:30 Mupirocin 1 applic 1 applic BID TOP Last administered on 11/05/16 09:11; Admin Dose 1 APPLIC; Start 11/02/16 at 16:30 Metronidazole (Flagyl 500 Mg (Pmx)) 100 ml @ 100 mls/hr Q8 IVPB Last administered on 11/05/16 13:18; Admin Dose 100 MLS/HR; Start 11/02/16 at 15:30 JORGE ROBLES Nov 05, 2016 15:19
--- NOTE | 2016-11-05 15:29 | PN ---
DATE: 11/05/2016 SUBJECTIVE: Gross hematuria. The patient is on a respirator and does not communicate any complaint s. OBJECTIVE: VITAL SIGNS: His temperature is 99.0. The blood pressure 89/54, pulse 105, respirations 17. ABDOMEN: Soft. The Ferreira catheter presently is draining clear urine. He does have some sediment i n the tubing itself. There is no however any gross hematuria. LABORATORY DATA: CBC shows a white count of 10.0, hemoglobin 8.1, hematocrit 27.1. The BUN is 13, creatinine 0.72. The urine culture did show initially E. coli and Morganella morganii and that has been treated. IMPRESSION: Gross hematuria that has cleared with treatment. PLAN: To continue present treatment and before he is discharged back to the [facility], I will ch jolanta his Ferreira catheter and insert a new one. Dictated By: TANA DUBOIS/GENOVEVA Conf#: [id number] DID#: [id number]
[2016-11-05] MEDS: INSULIN GLARGINE [LANtus] 3 ML PEN SC SCH (20:00)
--- NOTE | 2016-11-05 20:25 | PN ---
DATE: 11/05/2016 SUBJECTIVE: No acute events overnight. The patient is awake, lying comfortably in bed. He is nonc ommunicative. No fevers. LABORATORY DATA: No labs. DIAGNOSTICS: KUB is a new dilatation of the cecum, new dilatation of the transverse colon, new mild to moderate small bowel ileus. INDWELLINGS: Trach, PEG, Ferreira. ANTIMICROBIALS: 1. Flagyl. 2. Colistin. 3. Zyvox. 4. Topical Bactroban to nares. PHYSICAL EXAMINATION: GENERAL: Chronically ill-appearing, elderly man who is in no distress. HEENT: Head atraumatic, normocephalic. Sclerae anicteric. Buccal mucosa dry. NECK: Supple. Tracheostomy present. CHEST: Rise symmetrical. Breath sounds diminished. HEART: S1, S2. ABDOMEN: Distended, soft. Bowel tones hypoactive. EXTREMITIES: Bilateral trace edema. ASSESSMENT: 1. Ileus with new dilatation of the cecum and transverse colon. 2. Status post bacteremia and urinary tract infection. Repeat blood cultures negative. 3. Methicillin-resistant Staphylococcus aureus nares colonization. 4. Unstageable sacral decubitus where culture grew methicillin-resistant Staphylococcus aureus, Aci netobacter baumannii, status post debridement. 5. Resolved hematuria. 6. Anemia, status post esophagogastroduodenoscopy and colonoscopy. PLAN: The patient is clinically stable. Per GI recommendations, plan for rectal tube and repeat CT of the abdomen. Continue present care, antibiotics. Follow recommendations of consultants. Dictated By: ADITYA CALLAHAN JANITORIAL SUPERVISOR for VEGA SCHULER/NTS Conf#: [id number] DID#: [id number]
[2016-11-05] MEDS: ATORVASTATIN 20 MG TAB PO SCH (21:00)
--- NOTE | 2016-11-05 22:19 | PN ---
Date/Time of Note Date/Time of Note DATE: 11/05/16 TIME: 22:18 Assessment/Plan Lines/Catheters IV Catheter Type (from [facility]): PICC Line Ferreira in Place (from [facility]): Yes Assessment/Plan Chief Complaint/Hosp Course 1. Sacral deep tissue injury s/p excisional debridement 11/01 -offloading -optimize nutrition per feeding tube -vitamin C administration -local care. 2. Lower extremity decubitus ulcerations as above. 3. Shock (sepsis plus or minus hypovolemia, plus or minus cardiac). Improved -Continue judicious fluid management, cardiac optimization and treatment of underlying infections. 4. Urinary tract infection. Continue antibiotics. 5. Significant anemia of unknown etiology. EGD performed. Colonoscopy noted . -await path -gi/medical management -tx prn 6. Diabetes. Continue nutrition and medication control. 7. Elevated troponin with non-ST elevation myocardial infarction. Continue cardiac optimization. 8. History of cerebrovascular accident. Continue medical optimization. 9. Peptic ulcer disease. Continue proton pump inhibitors. 10. Coronary artery disease. Continue cardiac optimization. 11. Acute renal insufficiency secondary to above. Continue judicious fluid management. 12. Ventilator-dependent respiratory failure. Continue pulmonary toilet. 13. Dysphagia and tube feeds s/p PEG Thank you, Problems: Subjective 24 Hr Interval Summary s/p Exc huy sacrum 11/01. s/p Colonoscopy 10/31. Fevers with tachycardia. No cough. No sz/rash. No bloating. No vomiting. Leukocytosis resolved. Bowel function. Exam/Review of Systems Vital Signs Vitals Vital Signs Date Time Temp Pulse Resp B/P Pulse Ox O2 Delivery O2 Flow Rate FiO2 11/05/16 21:41 101 18 98 30 11/05/16 19:47 98.4 110/54 11/03/16 23:47 Mechanical Ventilator Intake and Output 11/04/16 11/04/16 11/05/16 15:00 23:00 07:00 Intake Total 950 ml 750 ml Output Total 400 ml 650 ml Balance 550 ml 100 ml Exam Free Text/Dictation GENERAL: Awake but noncommunicative. HEENT: The pupils are equal and reactive. No scleral icterus. Mucous membranes are moist. NECK: Trach in place. No JVD. PULMONARY: Decreased breath sounds. No wheezing. CARDIAC: S1, S2 present. ABDOMEN: Soft. PEG in place. EXTREMITIES: Minimal edema. VASCULAR: Capillary refill is 3 seconds. NEUROLOGIC: Awake, but does not follow commands. SKIN: Sacrococcygeal ulcer with packing. Bilateral lower extremity skin injuries. Results Result Diagram: 11/04/16 0517 11/04/16 0517 MINNIE SHIELDS MD Nov 05, 2016 22:19
--- NOTE | 2016-11-05 23:44 | RADRPT ---
PROCEDURE: CT abdomen and pelvis without contrast. CLINICAL INDICATION: Colonic ileus and dilated cecum. TECHNIQUE: Noncontrast CT examination of the abdomen and pelvis, with axial, sagittal and coronal reformatted images. CTDI: 19.27 mGy and DLP: 1171.81 mGy-cm. COMPARISON: Plain film abdomen dated 11/04/2016. CT abdomen and pelvis dated 09/08/2016. FINDINGS: CT abdomen: Bilateral moderate pleural effusions with dependent atelectasis versus airspace disease. Cardiomega ly. No evident pleural fluid. G tube in place with tip in bone in the gastric lumen. Mild ascites the liver. Mild to moderate ascites of the spleen and in the left pericolic gutter. Ab dominal ascites is new over interval. The liver is normal in size and density without focal mass or intrahepatic biliary dilatation. The spleen is normal in size and homogeneous in density. The stomach is partially collapsed, but is maxwell ssly unremarkable. The pancreas as visualized is normal. The gallbladder and biliary tree are unre markable and there is no evidence for biliary dilatation. The adrenal glands are symmetric and norm al. Bilateral renal cysts are seen. With relatively high attenuation exophytic cyst of the right k idney suggesting proteinaceous fluid. The largest cyst measures about 4 cm than right. Consider ul trasound correlation. Otherwise, the kidneys are unremarkable. No renal calculus or obstructive uro yessenia or mass lesion is seen. The aorta is of normal caliber. Aortic vascular calcifications are present. There is no retroperit baird lymphadenopathy. The chaz hepatis region is clear. Mild small bowel ascites in the left abdomen is otherwise nonspecific. IVC filter in place. CT pelvis: The sigmoid colon is dilated from its midportion to distal portion, and distended with air. The dis ibb sigmoid colon measures up to 8 cm in diameter. Dilation appears to be decreased over interval s teddy plain film abdomen dated 11/04/2016. There is no evident sigmoid volvulus. The cecum is not distended. A rectal tube and balloon are in place. The small bowel loops situated within the pelvis are unremarkable. The pelvic organs are normal. T he pelvic sidewalls and inguinal regions are clear. The sigmoid colon and rectum are all unremarkab le. Mild left pericolic gutter ascites. No evident mass or adenopathy. Mild inflammatory changes in the left celso pelvis associated with ascites. The region of the appendix is somewhat obscured by p eristaltic bowel motion, and the appendix is otherwise not identified. Unremarkable appendix was cassi ntified on prior CT examination dated to 09/08/2016. The surrounding osseous structures are remarkable for mild degenerative spondylosis of the spine. N o osteolytic or osteoblastic lesion is detected. IMPRESSION: 1. Dilation air distension of the mid to distal sigmoid colon, without evident volvulus. 2. The cecum is not dilated. 3. Moderate bilateral pleural effusions with dependent atelectasis versus airspace disease. 4. Cardiomegaly, without pericardial fluid. 5. Mild ascites over the liver, and moderate ascites over the spleen and extending into the left pe ricolic gutter. 6. Mild nonspecific small bowel ileus in the left abdomen. RPTAT: [facility] Physician Kailee Date Time Electronically viewed and signed by Physician Kailee on 11/05/2016 23:43 RS/
[2016-11-06] VITALS (24 sets, daily range): BP systolic 86–102; BP diastolic 50–57; PULSE 96–110; RESP 14–20
[2016-11-06] MEDS: D5W-0.45 NACL + KCL 20 MEQ 1,000 ML IV SCH (02:11)
[2016-11-06] MEDS: metroNIDAZOLE 500 MG/NS (PMX) 100 ML IVPB SCH ×3 (05:39→22:47)
[2016-11-06] MEDS: INSULIN ASPART [NOVOLOG] 3 ML PEN SC SCH ×4 (05:46→18:00)
[2016-11-06 06:04] LABS: ADD SCAN DIFF NO
[2016-11-06 06:18] LABS: BASOPHILS % 0.3 % (0.0-2.0); EOSINOPHILS # 0.1 10^3/ul (0.0-0.5); EOSINOPHILS % 1.2 % (0.0-7.0); HEMATOCRIT 26.5 % (42.0-52.0); HEMOGLOBIN 8.1 g/dl (14.0-18.0); LYMPHOCYTES # 1.6 10^3/ul (0.8-2.9); LYMPHOCYTES % 15.8 % (15.0-51.0); MEAN CORPUSCULAR HEMOGLOBIN 27.1 pg (29.0-33.0); MEAN CORPUSCULAR HGB CONC 30.6 g/dl (32.0-37.0); MEAN CORPUSCULAR VOLUME 88.6 fl (82.0-101.0); MEAN PLATELET VOLUME 11.9 fl (7.4-10.4); MONOCYTE # 0.7 10^3/ul (0.3-0.9); MONOCYTES % 6.7 % (0.0-11.0); NEUTROPHIL # 7.7 10^3/ul (1.6-7.5); NEUTROPHILS % 75.5 % (39.0-77.0); PLATELET COUNT 166 10^3/UL (140-415); RED BLOOD COUNT 2.99 10^6/ul (4.70-6.10); RED CELL DISTRIBUTION WIDTH 17.8 % (11.5-14.5); WHITE BLOOD COUNT 10.2 10^3/ul (4.8-10.8)
[2016-11-06 06:29] LABS: INR 2.05; PROTIME 23.3 Sec (12.2-14.2); PT RATIO 1.8
[2016-11-06 06:30] LABS: PARTIAL THROMBOPLASTIN TIME 55.3 Sec (25.0-35.0)
[2016-11-06 07:33] LABS: ALBUMIN 1.6 g/dl (3.3-4.9); ALBUMIN/GLOBULIN RATIO 0.57; CALCIUM 8.3 mg/dl (8.4-10.2); CREATININE 0.87 mg/dl (0.61-1.24); TOTAL PROTEIN 4.4 g/dl (6.1-8.1)
[2016-11-06] MEDS: COLLAGENASE 30 GM TUBE TOP SCH ×3 (09:00→12:43)
[2016-11-06] MEDS: LACTOBACILLUS CHEW TAB PO SCH ×2 (09:00→22:47)
[2016-11-06] MEDS: ZYVOX 600 MG TAB PO SCH ×2 (09:00→21:54)
[2016-11-06] MEDS: ASCORBIC ACID 500 MG TAB GTB SCH (09:00)
[2016-11-06] MEDS: MULTIVITAMINS THERAPEUTIC TAB GTB SCH (09:00)
[2016-11-06] MEDS: FERROUS SULFATE 60 MG/ML 5ML CUP GTB SCH (09:00)
[2016-11-06] MEDS: FENOFIBRATE 145 MG TAB PO SCH (09:00)
[2016-11-06] MEDS: SULFASALAZINE GTB SCH ×4 (09:00→21:53)
[2016-11-06] MEDS: SODIUM HYPOCHLORITE 0.125% 473 ML BTL IRR SCH ×3 (09:00→12:44)
[2016-11-06] MEDS: AMIODARONE 200 MG TAB GTB SCH ×2 (09:00→21:00)
[2016-11-06] MEDS: MUPIROCIN 2% 22 GM OINT TOP SCH ×2 (09:18→21:54)
[2016-11-06] MEDS: COLISTIMETHATE 75 MG in SOD CHLORIDE 0.9% 100 ML IVPB SCH ×2 (09:18→21:54)
[2016-11-06] MEDS: CHLORHEXIDINE GLUCONATE 15 ML UD CUP MM SCH ×2 (09:19→21:53)
[2016-11-06] MEDS: PANTOPRAZOLE 40 MG INJ IV SCH (09:19)
--- NOTE | 2016-11-06 09:29 | PN ---
Date/Time of Note Date/Time of Note DATE: 11/06/16 TIME: 09:26 Assessment/Plan VTE Prophylaxis VTE Prophylaxis Intervention: SCD's Lines/Catheters IV Catheter Type (from Nrs): PICC Line Central line still needed: Yes (IV abx , IVF bicarbonate drip ) Urinary Cath still in place: Yes Reason Cath still needed: urinary retention Assessment/Plan Assessment/Plan 1. S/p Septic shock 2/2 urinary tract infection, Off Pressors now, ID following 2. Ventilator-dependent respiratory failure. 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 3. Non-ST myocardial infarction with elevated troponin, likely demand ischemia secondary to anemia. 4. Severe symptomatic anemia due to lower Gi bleeding s/p 2 U PRBC transfusion during this hospitalization- s/p EGD 10/27/2016 with finding of gastrostomy tube in the body of the stomach.Otherwise, normal esophagogastroduodenoscopy with no bleeding site identified s/p 10/31/2016 Colonoscopy and finding of an 8 mm ulcer in the proximal descending colon & A 4 cm ulcer in the cecum with Large internal hemorrhoids. 5. THEO due to ATN from sepsis and prerenal azotemia 7. Diabetic mellitus . Place the patient on Lantus, continue insulin sliding scale. 8. History of essential hypertension. At this time, the patient is hypotensive secondary to septic shock. Hold all blood pressure medication. 9. Dyslipidemia, on statin. 10. Sacral decubitus, continue wound care, status post surgical debridement on 11/01/2016, continue postop care 12. Hematuria, urology has been consulted, resolved 13. PEG tube dysfunction, GI on case 14. Hypokalemia, Hypomagnesemia KCl 40mEQ IV x 1 , magensium suflate 3 gram IV x 1 dose now will switch iVF to D5W with 1 ampoule of Sodium bicarbonate to run at 80 cc/hr DVT prophylaxis; SCD, no Heparin/Lovenox due to GI bleeding CONDITION: Guarded Subjective 24 Hr Interval Summary Free Text/Dictation HCO3 17, K low, mag 1.0, pt stable on current vent settings Exam/Review of Systems Vital Signs Vitals Vital Signs Date Time Temp Pulse Resp B/P Pulse Ox O2 Delivery O2 Flow Rate FiO2 11/06/16 08:18 96 11/06/16 07:58 98.3 17 95/52 99 11/06/16 07:20 30 11/03/16 23:47 Mechanical Ventilator Intake and Output 11/05/16 11/05/16 11/06/16 15:00 23:00 07:00 Intake Total 1020 ml 450 ml Output Total 600 ml 400 ml Balance 420 ml 50 ml Exam General: The patient is cachectic, Not in acute distress. HEENT: Atraumatic, normocephalic. The pupils are equal and round . Neck: Tracheostomy in place Chest: Normal expansion of the thorax during inspiration Lungs: Clear to auscultation bilaterally Heart: Normal S1-S2, Regular rhythm and rate. Abdomen: Soft , nontender, nondistended , bowel sounds are present. + PEG tube in place Extremities: Normal to inspection, no edema no cyanosis Results Result Diagram: 11/06/16 0542 11/06/16 0542 Results 24 hrs Laboratory Tests Test 11/05/16 11:42 11/05/16 17:40 11/05/16 19:57 11/05/16 23:52 Bedside Glucose 80 83 80 78 Test 11/06/16 05:42 11/06/16 05:44 White Blood Count 10.2 Red Blood Count 2.99 L Hemoglobin 8.1 L Hematocrit 26.5 L Mean Corpuscular Volume 88.6 Mean Corpuscular Hemoglobin 27.1 L Mean Corpuscular Hemoglobin Concent 30.6 L Red Cell Distribution Width 17.8 H Platelet Count 166 Mean Platelet Volume 11.9 H Neutrophils % 75.5 Lymphocytes % 15.8 Monocytes % 6.7 Eosinophils % 1.2 Basophils % 0.3 Nucleated Red Blood Cells % 0.0 Neutrophils # 7.7 H Lymphocytes # 1.6 Monocytes # 0.7 Eosinophils # 0.1 Basophils # 0.0 Nucleated Red Blood Cells # 0.0 Prothrombin Time 23.3 #H Prothrombin Time Ratio 1.8 INR International Normalized Ratio 2.05 Activated Partial Thromboplast Time 55.3 H Sodium Level 138 Potassium Level 3.0 L Chloride Level 116 H Carbon Dioxide Level 17 L Anion Gap 8 Blood Urea Nitrogen 9 Creatinine 0.87 Glucose Level 82 Calcium Level 8.3 L Phosphorus Level 4.0 Magnesium Level 1.0 L Total Bilirubin 0.0 L Direct Bilirubin 0.00 Indirect Bilirubin 0.0 Aspartate Amino Transf (AST/SGOT) 27 Alanine Aminotransferase (ALT/SGPT) 28 Alkaline Phosphatase 73 Total Protein 4.4 L Albumin 1.6 L Globulin 2.80 Albumin/Globulin Ratio 0.57 Bedside Glucose 73 Medications Medications Current Medications Ondansetron HCl (Zofran Inj) 4 mg Q6H PRN IV NAUSEA AND/OR VOMITING Last administered on 10/27/16 13:51; Admin Dose 4 MG; Start 10/25/16 at 11:00 Nitroglycerin (Nitroglycerin (Sl Tab) 0.4 Mg) 1 tab Q5M PRN SL CHEST PAIN; Start 10/25/16 at 11:00 Acetaminophen (Tylenol Tab) 650 mg Q6H PRN PO PAIN LEVEL 1-3 OR FEVER Last administered on 11/04/16 15:30; Admin Dose 650 MG; Start 10/25/16 at 11:00 Acetaminophen (Tylenol Supp) 650 mg Q4H PRN MT PAIN LEVEL 1-3 OR FEVER; Start 10/25/16 at 11:00 Docusate Sodium (Colace) 100 mg Q12H PRN PO CONSTIPATION; Start 10/25/16 at 11: 00 Bisacodyl (Dulcolax Supp) 10 mg DAILY PRN MT CONSTIPATION; Start 10/25/16 at 11: 00 Amiodarone HCl (Cordarone) 400 mg BID GTB Last administered on 11/01/16 10:22 ; Admin Dose 400 MG; Start 10/25/16 at 21:00 Ascorbic Acid (Vitamin C) 500 mg DAILY GTB Last administered on 11/01/16 10:21 ; Admin Dose 500 MG; Start 10/26/16 at 09:00 Chlorhexidine Gluconate (Peridex) 15 ml Q12 MM Last administered on 11/05/16 21:37; Admin Dose 15 ML; Start 10/25/16 at 21:00 Collagenase (Santyl) 1 applic DAILY TOP Last administered on 11/05/16 09:11; Admin Dose 1 APPLIC; Start 10/26/16 at 09:00 Ferrous Sulfate (Feosol Liquid Cup) 330 mg DAILY GTB Last administered on 10:29; Admin Dose 330 MG; Start 10/26/16 at 09:00 Multivitamins Therapeutic (Theragran) 1 tab DAILY GTB Last administered on 11/01 10:20; Admin Dose 1 TAB; Start 10/26/16 at 09:00 Lactobacillus Acidoph/Bulgaricus (Floranex) 1 tab BID PO Last administered on 21:40; Admin Dose 1 TAB; Start 10/25/16 at 21:00 Fenofibrate (Tricor) 145 mg DAILY PO Last administered on 11/01/16 10:20; Admin Dose 145 MG; Start 10/26/16 at 09:00 IV Flush (NS 10 ml) 10 ml PRN PRN IV IV PROTOCOL; Start 10/25/16 at 11:30 Atorvastatin Calcium (Lipitor) 20 mg HS PO Last administered on 11/01/16 21:40 ; Admin Dose 20 MG; Start 10/25/16 at 21:00 Pantoprazole (Protonix Iv) 40 mg BID IV Last administered on 11/05/16 21:35; Admin Dose 40 MG; Start 10/25/16 at 21:00 Miscellaneous Information 1 ea NOTE XX ; Start 10/26/16 at 09:30 Glucose (Glutose) 15 gm Q15M PRN PO DECREASED GLUCOSE; Start 10/26/16 at 09:30 Glucose (Glutose) 22.5 gm Q15M PRN PO DECREASED GLUCOSE; Start 10/26/16 at 09:30 Dextrose (D50w Syringe) 25 ml Q15M PRN IV DECREASED GLUCOSE Last administered on 11/04/16 07:38; Admin Dose 25 ML; Start 10/26/16 at 09:30 Dextrose (D50w Syringe) 50 ml Q15M PRN IV DECREASED GLUCOSE; Start 10/26/16 at 09:30 Glucagon (Glucagen) 1 mg Q15M PRN IM DECREASED GLUCOSE; Start 10/26/16 at 09:30 Glucose (Glutose) 15 gm Q15M PRN BUCCAL DECREASED GLUCOSE; Start 10/26/16 at 09: 30 Insulin Glargine (Lantus) 12 unit DAILY@20 SC Last administered on 10/30/16 21 :46; Admin Dose 12 UNIT; Start 10/26/16 at 20:00 Sodium Hypochlorite (Dakin'S (1/4 Strength)) 1 applic DAILY IRR Last administered on 11/05/16 09:11; Admin Dose 1 APPLIC; Start 10/27/16 at 09:00 Insulin Aspart (Novolog Insulin Pen) NOVOLOG *MILD* ALGORI... Q6 SC Last administered on 10/29/16 17:51; Admin Dose 1 UNIT; Start 10/29/16 at 12:00 Linezolid 600 mg 600 mg BID PO Last administered on 11/01/16 21:40; Admin Dose 600 MG; Start 10/30/16 at 21:00 Colistimethate Sodium/Sodium Chloride (Coly-Mycin/NS) 100 ml @ 200 mls/hr Q12 IVPB Last administered on 11/05/16 21:35; Admin Dose 200 MLS/HR; Start at 21:00 Non-Formulary Medication 10 ml 10 ml QID GTB Last administered on 11/04/16 17: 59; Admin Dose 10 ML; Start 10/31/16 at 17:00 Potassium Chloride/Dextrose/ Sod Cl (D5-1/2ns + KCl 20 Meq) 1,000 ml @ 60 mls/ hr [id number] IV Last administered on 11/06/16 02:11; Admin Dose 60 MLS/HR; Start 11/02/16 at 12:30 Mupirocin 1 applic 1 applic BID TOP Last administered on 11/05/16 21:38; Admin Dose 1 APPLIC; Start 11/02/16 at 16:30 Metronidazole 100 ml @ 100 mls/hr Q8 IVPB Last administered on 11/06/16 05:39 ; Admin Dose 100 MLS/HR; Start 11/02/16 at 15:30 Magnesium Sulfate 3 gm/Sodium Chloride 106 ml @ 35.333 mls/ hr ONCE ONCE IVPB ; Start 11/06/16 at 09:30; Stop 11/06/16 at 12:29 Potassium Chloride (KCl 40 MEQ/250 ML NS) 250 ml @ 62.5 mls/hr ONCE ONCE IVPB ; Start 11/06/16 at 12:30; Stop 11/06/16 at 16:29 DAO PÉREZ MD Nov 06, 2016 09:29
[2016-11-06] MEDS ORDERED: MAGNESIUM SULFATE 3 GM in SOD CHLORIDE 0.9% 100 ML IVPB ONE (09:30)
[2016-11-06] MEDS: SODIUM BICARBONATE (IV ADD) 50 MEQ in DEXTROSE 5% 1,000 ML IV SCH ×2 (11:44→23:08)
[2016-11-06] MEDS ORDERED: POTASSIUM CHLORIDE 250 ML IVPB ONE (12:30)
--- NOTE | 2016-11-06 14:18 | CONS ---
Date/Time of Note Date/Time of Note DATE: 11/06/16 TIME: 14:17 Consult Date/Type/Reason Admit Date/Time Oct 25, 2016 at 10:54 Initial Consult Date 10/25/16 Type of Consultation: Pulmonary/critical care Ordering Provider: DILIP ARELLANO MD Subjective Patient remains comfortable no new events Objective Vital Signs Date Time Temp Pulse Resp B/P Pulse Ox O2 Delivery O2 Flow Rate FiO2 11/06/16 13:30 98 16 98 30 11/06/16 11:12 98.6 86/50 11/03/16 23:47 Mechanical Ventilator Intake and Output 11/05/16 11/05/16 11/06/16 15:00 23:00 07:00 Intake Total 1020 ml 450 ml Output Total 600 ml 400 ml Balance 420 ml 50 ml Exam PHYSICAL EXAMINATION GENERAL: Elderly gentleman, on mechanical ventilation VITAL SIGNS: see below. HEENT: Pupils equal, round, and reactive to light. Tracheostomy site clean and intact. CARDIAC: S1, S2, no added sounds or murmurs CHEST: Diminished air entry bilaterally. ABDOMEN: Mildly distended. Bowel sounds present. EXTREMITIES: No cyanosis, clubbing or edema. NEUROLOGIC: Unable to assess Results/Medications Result Diagram: 11/06/16 0542 11/06/16 0542 Results 24 hrs Laboratory Tests Test 11/05/16 17:40 11/05/16 19:57 11/05/16 23:52 11/06/16 05:42 Bedside Glucose 83 80 78 White Blood Count 10.2 Red Blood Count 2.99 L Hemoglobin 8.1 L Hematocrit 26.5 L Mean Corpuscular Volume 88.6 Mean Corpuscular Hemoglobin 27.1 L Mean Corpuscular Hemoglobin Concent 30.6 L Red Cell Distribution Width 17.8 H Platelet Count 166 Mean Platelet Volume 11.9 H Neutrophils % 75.5 Lymphocytes % 15.8 Monocytes % 6.7 Eosinophils % 1.2 Basophils % 0.3 Nucleated Red Blood Cells % 0.0 Neutrophils # 7.7 H Lymphocytes # 1.6 Monocytes # 0.7 Eosinophils # 0.1 Basophils # 0.0 Nucleated Red Blood Cells # 0.0 Prothrombin Time 23.3 #H Prothrombin Time Ratio 1.8 INR International Normalized Ratio 2.05 Activated Partial Thromboplast Time 55.3 H Sodium Level 138 Potassium Level 3.0 L Chloride Level 116 H Carbon Dioxide Level 17 L Anion Gap 8 Blood Urea Nitrogen 9 Creatinine 0.87 Glucose Level 82 Calcium Level 8.3 L Phosphorus Level 4.0 Magnesium Level 1.0 L Total Bilirubin 0.0 L Direct Bilirubin 0.00 Indirect Bilirubin 0.0 Aspartate Amino Transf (AST/SGOT) 27 Alanine Aminotransferase (ALT/SGPT) 28 Alkaline Phosphatase 73 Total Protein 4.4 L Albumin 1.6 L Globulin 2.80 Albumin/Globulin Ratio 0.57 Test 11/06/16 05:44 11/06/16 12:19 Bedside Glucose 73 90 Medications Current Medications Ondansetron HCl (Zofran Inj) 4 mg Q6H PRN IV NAUSEA AND/OR VOMITING Last administered on 10/27/16 13:51; Admin Dose 4 MG; Start 10/25/16 at 11:00 Nitroglycerin (Nitroglycerin (Sl Tab) 0.4 Mg) 1 tab Q5M PRN SL CHEST PAIN; Start 10/25/16 at 11:00 Acetaminophen (Tylenol Tab) 650 mg Q6H PRN PO PAIN LEVEL 1-3 OR FEVER Last administered on 11/04/16 15:30; Admin Dose 650 MG; Start 10/25/16 at 11:00 Acetaminophen (Tylenol Supp) 650 mg Q4H PRN [place] PAIN LEVEL 1-3 OR FEVER; Start 10/25/16 at 11:00 Docusate Sodium (Colace) 100 mg Q12H PRN PO CONSTIPATION; Start 10/25/16 at 11: 00 Bisacodyl (Dulcolax Supp) 10 mg DAILY PRN [place] CONSTIPATION; Start 10/25/16 at 11: 00 Amiodarone HCl (Cordarone) 400 mg BID GTB Last administered on 11/01/16 10:22 ; Admin Dose 400 MG; Start 10/25/16 at 21:00 Ascorbic Acid (Vitamin C) 500 mg DAILY GTB Last administered on 11/01/16 10:21 ; Admin Dose 500 MG; Start 10/26/16 at 09:00 Chlorhexidine Gluconate (Peridex) 15 ml Q12 MM Last administered on 11/06/16 09:19; Admin Dose 15 ML; Start 10/25/16 at 21:00 Collagenase (Santyl) 1 applic DAILY TOP Last administered on 11/06/16 12:43; Admin Dose 1 APPLIC; Start 10/26/16 at 09:00 Ferrous Sulfate (Feosol Liquid Cup) 330 mg DAILY GTB Last administered on 10:29; Admin Dose 330 MG; Start 10/26/16 at 09:00 Multivitamins Therapeutic (Theragran) 1 tab DAILY GTB Last administered on 11/01 10:20; Admin Dose 1 TAB; Start 10/26/16 at 09:00 Lactobacillus Acidoph/Bulgaricus (Floranex) 1 tab BID PO Last administered on 21:40; Admin Dose 1 TAB; Start 10/25/16 at 21:00 Fenofibrate (Tricor) 145 mg DAILY PO Last administered on 11/01/16 10:20; Admin Dose 145 MG; Start 10/26/16 at 09:00 IV Flush (NS 10 ml) 10 ml PRN PRN IV IV PROTOCOL; Start 10/25/16 at 11:30 Atorvastatin Calcium (Lipitor) 20 mg HS PO Last administered on 11/01/16 21:40 ; Admin Dose 20 MG; Start 10/25/16 at 21:00 Miscellaneous Information 1 ea NOTE XX ; Start 10/26/16 at 09:30 Glucose (Glutose) 15 gm Q15M PRN PO DECREASED GLUCOSE; Start 10/26/16 at 09:30 Glucose (Glutose) 22.5 gm Q15M PRN PO DECREASED GLUCOSE; Start 10/26/16 at 09:30 Dextrose (D50w Syringe) 25 ml Q15M PRN IV DECREASED GLUCOSE Last administered on 11/04/16 07:38; Admin Dose 25 ML; Start 10/26/16 at 09:30 Dextrose (D50w Syringe) 50 ml Q15M PRN IV DECREASED GLUCOSE; Start 10/26/16 at 09:30 Glucagon (Glucagen) 1 mg Q15M PRN IM DECREASED GLUCOSE; Start 10/26/16 at 09:30 Glucose (Glutose) 15 gm Q15M PRN BUCCAL DECREASED GLUCOSE; Start 10/26/16 at 09: 30 Insulin Glargine (Lantus) 12 unit DAILY@20 SC Last administered on 10/30/16 21 :46; Admin Dose 12 UNIT; Start 10/26/16 at 20:00 Sodium Hypochlorite (Dakin'S (1/4 Strength)) 1 applic DAILY IRR Last administered on 11/06/16 12:44; Admin Dose 1 APPLIC; Start 10/27/16 at 09:00 Insulin Aspart (Novolog Insulin Pen) NOVOLOG *MILD* ALGORI... Q6 SC Last administered on 10/29/16 17:51; Admin Dose 1 UNIT; Start 10/29/16 at 12:00 Linezolid 600 mg 600 mg BID PO Last administered on 11/01/16 21:40; Admin Dose 600 MG; Start 10/30/16 at 21:00 Colistimethate Sodium/Sodium Chloride (Coly-Mycin/NS) 100 ml @ 200 mls/hr Q12 IVPB Last administered on 11/06/16 09:18; Admin Dose 200 MLS/HR; Start at 21:00 Non-Formulary Medication 10 ml QID GTB Last administered on 11/04/16 17:59; Admin Dose 10 ML; Start 10/31/16 at 17:00 Mupirocin 1 applic 1 applic BID TOP Last administered on 11/06/16 09:18; Admin Dose 1 APPLIC; Start 11/02/16 at 16:30 Metronidazole 100 ml @ 100 mls/hr Q8 IVPB Last administered on 11/06/16 14:15 ; Admin Dose 100 MLS/HR; Start 11/02/16 at 15:30 Potassium Chloride 250 ml @ 62.5 mls/hr ONCE ONCE IVPB Last administered on 12:44; Admin Dose 62.5 MLS/HR; Start 11/06/16 at 12:30; Stop 11/06/16 at 16:29 Sodium Bicarbonate/ Dextrose (Na Bicarb/D5W) 1,050 ml @ 80 mls/hr Q13H8M IV Last administered on 11/06/16 11:44; Admin Dose 80 MLS/HR; Start 11/06/16 at 10 :00 Lansoprazole (Prevacid) 30 mg BID@06,18 PO ; Start 11/06/16 at 18:00 Assessment/Plan Chief Complaint/Hosp Course Assessment 1. Status post Septic shock secondary to urinary tract infection cultures demonstrating gram-negative organism 2. Severe anemia possibly secondary to chronic disease with component of GI bleeding status post colonoscopy and endoscopy 3. Metabolic acidosis 4. Chronic renal insufficiency component of dehydration improved 5. Vent dependent respiratory failure 6. Chronic encephalopathy 7. Dysphagia with G-tube Plan 1. Continue ID recommendations 2. Continue mechanical ventilation 3. Continue to feeding as tolerated 4. Monitor H&H 5. DVT and GI prophylaxis 6. Consider discussion of CODE STATUS with family as overall prognosis very poor 7. Replace potassium Disposition Discharge planning Problems: MUNIR DESHPANDE [facility], [facility] Nov 06, 2016 14:18
--- NOTE | 2016-11-06 14:32 | CONS ---
Date/Time of Note Date/Time of Note DATE: 11/06/16 TIME: 14:29 Assessment/Plan Assessment/Plan Chief Complaint/Hosp Course SUBJECTIVE: No acute events overnight. The patient is awake, lying comfortably in bed. He is noncommunicative. No fevers. DIAGNOSTICS: CT abdomen ==> no volvulus INDWELLINGS: Trach, PEG, Ferreira, PICC, rectal tube. ANTIMICROBIALS: 1. Flagyl. 2. Colistin. 3. Zyvox. 4. Topical Bactroban to nares. PHYSICAL EXAMINATION: GENERAL: Chronically ill-appearing, elderly man who is in no distress. HEENT: Head atraumatic, normocephalic. Sclerae anicteric. Buccal mucosa dry. NECK: Supple. Tracheostomy present. CHEST: Rise symmetrical. Breath sounds diminished. HEART: S1, S2. ABDOMEN: Distended, soft. Bowel tones hypoactive. EXTREMITIES: Bilateral trace edema. ASSESSMENT: 1. Ileus with new dilatation of the cecum and transverse colon. 2. Status post bacteremia and urinary tract infection. Repeat blood cultures negative. 3. Methicillin-resistant Staphylococcus aureus nares colonization. 4. Unstageable sacral decubitus where culture grew methicillin-resistant Staphylococcus aureus, Acinetobacter baumannii, status post debridement. 5. Resolved hematuria. 6. Anemia, status post esophagogastroduodenoscopy and colonoscopy. PLAN: The patient is clinically stable. S/p rectal tube placed, no volvulus per CT of the abdomen. Continue present care, antibiotics. Follow recommendations of consultants. DW staff Problems: Consultation Date/Type/Reason Admit Date/Time Oct 25, 2016 at 10:54 Initial Consult Date 10/25/16 Type of Consultation: ID Referring Provider: DILIP ARELLANO MD Exam/Review of Systems Vital Signs Vitals Vital Signs Date Time Temp Pulse Resp B/P Pulse Ox O2 Delivery O2 Flow Rate FiO2 11/06/16 13:30 98 16 98 30 11/06/16 11:12 98.6 86/50 11/03/16 23:47 Mechanical Ventilator Intake and Output 11/05/16 11/05/16 11/06/16 15:00 23:00 07:00 Intake Total 1020 ml 450 ml Output Total 600 ml 400 ml Balance 420 ml 50 ml Results Result Diagram: 11/06/16 0542 11/06/16 0542 Results 24 hrs Laboratory Tests Test 11/05/16 17:40 11/05/16 19:57 11/05/16 23:52 11/06/16 05:42 Bedside Glucose 83 80 78 White Blood Count 10.2 Red Blood Count 2.99 L Hemoglobin 8.1 L Hematocrit 26.5 L Mean Corpuscular Volume 88.6 Mean Corpuscular Hemoglobin 27.1 L Mean Corpuscular Hemoglobin Concent 30.6 L Red Cell Distribution Width 17.8 H Platelet Count 166 Mean Platelet Volume 11.9 H Neutrophils % 75.5 Lymphocytes % 15.8 Monocytes % 6.7 Eosinophils % 1.2 Basophils % 0.3 Nucleated Red Blood Cells % 0.0 Neutrophils # 7.7 H Lymphocytes # 1.6 Monocytes # 0.7 Eosinophils # 0.1 Basophils # 0.0 Nucleated Red Blood Cells # 0.0 Prothrombin Time 23.3 #H Prothrombin Time Ratio 1.8 INR International Normalized Ratio 2.05 Activated Partial Thromboplast Time 55.3 H Sodium Level 138 Potassium Level 3.0 L Chloride Level 116 H Carbon Dioxide Level 17 L Anion Gap 8 Blood Urea Nitrogen 9 Creatinine 0.87 Glucose Level 82 Calcium Level 8.3 L Phosphorus Level 4.0 Magnesium Level 1.0 L Total Bilirubin 0.0 L Direct Bilirubin 0.00 Indirect Bilirubin 0.0 Aspartate Amino Transf (AST/SGOT) 27 Alanine Aminotransferase (ALT/SGPT) 28 Alkaline Phosphatase 73 Total Protein 4.4 L Albumin 1.6 L Globulin 2.80 Albumin/Globulin Ratio 0.57 Test 11/06/16 05:44 11/06/16 12:19 Bedside Glucose 73 90 Medications Medications Current Medications Ondansetron HCl (Zofran Inj) 4 mg Q6H PRN IV NAUSEA AND/OR VOMITING Last administered on 10/27/16 13:51; Admin Dose 4 MG; Start 10/25/16 at 11:00 Nitroglycerin (Nitroglycerin (Sl Tab) 0.4 Mg) 1 tab Q5M PRN SL CHEST PAIN; Start 10/25/16 at 11:00 Acetaminophen (Tylenol Tab) 650 mg Q6H PRN PO PAIN LEVEL 1-3 OR FEVER Last administered on 11/04/16 15:30; Admin Dose 650 MG; Start 10/25/16 at 11:00 Acetaminophen (Tylenol Supp) 650 mg Q4H PRN [place] PAIN LEVEL 1-3 OR FEVER; Start 10/25/16 at 11:00 Docusate Sodium (Colace) 100 mg Q12H PRN PO CONSTIPATION; Start 10/25/16 at 11: 00 Bisacodyl (Dulcolax Supp) 10 mg DAILY PRN [place] CONSTIPATION; Start 10/25/16 at 11: 00 Amiodarone HCl (Cordarone) 400 mg BID GTB Last administered on 11/01/16 10:22 ; Admin Dose 400 MG; Start 10/25/16 at 21:00 Ascorbic Acid (Vitamin C) 500 mg DAILY GTB Last administered on 11/01/16 10:21 ; Admin Dose 500 MG; Start 10/26/16 at 09:00 Chlorhexidine Gluconate (Peridex) 15 ml Q12 MM Last administered on 11/06/16 09:19; Admin Dose 15 ML; Start 10/25/16 at 21:00 Collagenase (Santyl) 1 applic DAILY TOP Last administered on 11/06/16 12:43; Admin Dose 1 APPLIC; Start 10/26/16 at 09:00 Ferrous Sulfate (Feosol Liquid Cup) 330 mg DAILY GTB Last administered on 10:29; Admin Dose 330 MG; Start 10/26/16 at 09:00 Multivitamins Therapeutic (Theragran) 1 tab DAILY GTB Last administered on 11/01 10:20; Admin Dose 1 TAB; Start 10/26/16 at 09:00 Lactobacillus Acidoph/Bulgaricus (Floranex) 1 tab BID PO Last administered on 21:40; Admin Dose 1 TAB; Start 10/25/16 at 21:00 Fenofibrate (Tricor) 145 mg DAILY PO Last administered on 11/01/16 10:20; Admin Dose 145 MG; Start 10/26/16 at 09:00 IV Flush (NS 10 ml) 10 ml PRN PRN IV IV PROTOCOL; Start 10/25/16 at 11:30 Atorvastatin Calcium (Lipitor) 20 mg HS PO Last administered on 11/01/16 21:40 ; Admin Dose 20 MG; Start 10/25/16 at 21:00 Miscellaneous Information 1 ea NOTE XX ; Start 10/26/16 at 09:30 Glucose (Glutose) 15 gm Q15M PRN PO DECREASED GLUCOSE; Start 10/26/16 at 09:30 Glucose (Glutose) 22.5 gm Q15M PRN PO DECREASED GLUCOSE; Start 10/26/16 at 09:30 Dextrose (D50w Syringe) 25 ml Q15M PRN IV DECREASED GLUCOSE Last administered on 11/04/16 07:38; Admin Dose 25 ML; Start 10/26/16 at 09:30 Dextrose (D50w Syringe) 50 ml Q15M PRN IV DECREASED GLUCOSE; Start 10/26/16 at 09:30 Glucagon (Glucagen) 1 mg Q15M PRN IM DECREASED GLUCOSE; Start 10/26/16 at 09:30 Glucose (Glutose) 15 gm Q15M PRN BUCCAL DECREASED GLUCOSE; Start 10/26/16 at 09: 30 Insulin Glargine (Lantus) 12 unit DAILY@20 SC Last administered on 10/30/16 21 :46; Admin Dose 12 UNIT; Start 10/26/16 at 20:00 Sodium Hypochlorite (Dakin'S (1/4 Strength)) 1 applic DAILY IRR Last administered on 11/06/16 12:44; Admin Dose 1 APPLIC; Start 10/27/16 at 09:00 Insulin Aspart (Novolog Insulin Pen) NOVOLOG *MILD* ALGORI... Q6 SC Last administered on 10/29/16 17:51; Admin Dose 1 UNIT; Start 10/29/16 at 12:00 Linezolid 600 mg 600 mg BID PO Last administered on 11/01/16 21:40; Admin Dose 600 MG; Start 10/30/16 at 21:00 Colistimethate Sodium/Sodium Chloride (Coly-Mycin/NS) 100 ml @ 200 mls/hr Q12 IVPB Last administered on 11/06/16 09:18; Admin Dose 200 MLS/HR; Start at 21:00 Non-Formulary Medication 10 ml QID GTB Last administered on 11/04/16 17:59; Admin Dose 10 ML; Start 10/31/16 at 17:00 Mupirocin 1 applic 1 applic BID TOP Last administered on 11/06/16 09:18; Admin Dose 1 APPLIC; Start 11/02/16 at 16:30 Metronidazole 100 ml @ 100 mls/hr Q8 IVPB Last administered on 11/06/16 14:15 ; Admin Dose 100 MLS/HR; Start 11/02/16 at 15:30 Potassium Chloride 250 ml @ 62.5 mls/hr ONCE ONCE IVPB Last administered on 12:44; Admin Dose 62.5 MLS/HR; Start 11/06/16 at 12:30; Stop 11/06/16 at 16:29 Sodium Bicarbonate/ Dextrose (Na Bicarb/D5W) 1,050 ml @ 80 mls/hr Q13H8M IV Last administered on 11/06/16 11:44; Admin Dose 80 MLS/HR; Start 11/06/16 at 10 :00 Lansoprazole (Prevacid) 30 mg BID@06,18 PO ; Start 11/06/16 at 18:00 ADITYA CALLAHAN NP Nov 06, 2016 14:32
--- NOTE | 2016-11-06 15:26 | PN ---
Date/Time of Note Date/Time of Note DATE: 11/06/16 TIME: 15:18 Assessment/Plan VTE Prophylaxis VTE Prophylaxis Intervention: SCD's Lines/Catheters IV Catheter Type (from Nrs): PICC Line Central line still needed: Yes Urinary Cath still in place: Yes Reason Cath still needed: urinary retention Assessment/Plan Chief Complaint/Hosp Course Problems: Assessment/Plan Colonic ileus resolving CT abdomen /Pelvis 11/05/2016 1. Dilation air distension of the mid to distal sigmoid colon, without evident volvulus. 2. The cecum is not dilated. 3. Moderate bilateral pleural effusions with dependent atelectasis versus airspace disease. 4. Cardiomegaly, without pericardial fluid. 5. Mild ascites over the liver, and moderate ascites over the spleen and extending into the left pericolic gutter. 6. Mild nonspecific small bowel ileus in the left abdomen. KUB 11/04/2016 1. New dilation of the cecum measuring up to 13 cm, with increased risk of perforation. 2. Differential considerations include dilated sigmoid colon. 3. Recommend CT correlation. 4. New dilatation of the transverse colon measuring up to about 8 cm , and differential considerations include dilated air-filled sigmoid colon. 3. New mild to moderate small bowel ileus, otherwise nonspecific. Sepsis resolving Anemia * Cecal ulcer /ulcer descending colon * s/p EGD 10/27/2016. 1.Gastrostomy tube in the body of the stomach.Otherwise, normal esophagogastroduodenoscopy with no bleeding site identified * Status post bedside PEG reinsertion * s/o 10/31/2016 Colonoscopy * 1. An 8 mm ulcer in the proximal descending colon, biopsied. * 2. A 4 cm ulcer in the cecum, biopsied. * 3. Normal ileum. * 4. Otherwise, normal colonic mucosa. * 5. Large internal hemorrhoids. Plan * Resume tube feeding * continue present management Subjective 24 Hr Interval Summary Free Text/Dictation * Course reviewed with RN * patient seen and examined * CT abdomen/Pelvis 11/05/2016 * . 1 Dilation air distension of the mid to distal sigmoid colon, without evident volvulus. 2. The cecum is not dilated. 3. Moderate bilateral pleural effusions with dependent atelectasis versus airspace disease. 4. Cardiomegaly, without pericardial fluid. 5. Mild ascites over the liver, and moderate ascites over the spleen and extending into the left pericolic gutter. 6. Mild nonspecific small bowel ileus in the left abdomen. Exam/Review of Systems Vital Signs Vitals Vital Signs Date Time Temp Pulse Resp B/P Pulse Ox O2 Delivery O2 Flow Rate FiO2 11/06/16 13:30 98 16 98 30 11/06/16 11:12 98.6 86/50 11/03/16 23:47 Mechanical Ventilator Intake and Output 11/05/16 11/05/16 11/06/16 15:00 23:00 07:00 Intake Total 1020 ml 450 ml Output Total 600 ml 400 ml Balance 420 ml 50 ml Exam Constitutional: frail, non-verbal Neck: supple Respiratory: diminished breath sounds, normal air movement, other (trach to vent) Cardiovascular: nl pulses, regular rate and rhythm Gastrointestinal: bowel sounds, distended, non-tender, other (rectal tube in placed), soft, No rebound or guarding Skin: other (multiple decubitus) Results Result Diagram: 11/06/16 0542 11/06/16 0542 Results 24 hrs Laboratory Tests Test 11/05/16 17:40 11/05/16 19:57 11/05/16 23:52 11/06/16 05:42 Bedside Glucose 83 80 78 White Blood Count 10.2 Red Blood Count 2.99 L Hemoglobin 8.1 L Hematocrit 26.5 L Mean Corpuscular Volume 88.6 Mean Corpuscular Hemoglobin 27.1 L Mean Corpuscular Hemoglobin Concent 30.6 L Red Cell Distribution Width 17.8 H Platelet Count 166 Mean Platelet Volume 11.9 H Neutrophils % 75.5 Lymphocytes % 15.8 Monocytes % 6.7 Eosinophils % 1.2 Basophils % 0.3 Nucleated Red Blood Cells % 0.0 Neutrophils # 7.7 H Lymphocytes # 1.6 Monocytes # 0.7 Eosinophils # 0.1 Basophils # 0.0 Nucleated Red Blood Cells # 0.0 Prothrombin Time 23.3 #H Prothrombin Time Ratio 1.8 INR International Normalized Ratio 2.05 Activated Partial Thromboplast Time 55.3 H Sodium Level 138 Potassium Level 3.0 L Chloride Level 116 H Carbon Dioxide Level 17 L Anion Gap 8 Blood Urea Nitrogen 9 Creatinine 0.87 Glucose Level 82 Calcium Level 8.3 L Phosphorus Level 4.0 Magnesium Level 1.0 L Total Bilirubin 0.0 L Direct Bilirubin 0.00 Indirect Bilirubin 0.0 Aspartate Amino Transf (AST/SGOT) 27 Alanine Aminotransferase (ALT/SGPT) 28 Alkaline Phosphatase 73 Total Protein 4.4 L Albumin 1.6 L Globulin 2.80 Albumin/Globulin Ratio 0.57 Test 11/06/16 05:44 11/06/16 12:19 Bedside Glucose 73 90 Medications Medications Current Medications Ondansetron HCl (Zofran Inj) 4 mg Q6H PRN IV NAUSEA AND/OR VOMITING Last administered on 10/27/16 13:51; Admin Dose 4 MG; Start 10/25/16 at 11:00 Nitroglycerin (Nitroglycerin (Sl Tab) 0.4 Mg) 1 tab Q5M PRN SL CHEST PAIN; Start 10/25/16 at 11:00 Acetaminophen (Tylenol Tab) 650 mg Q6H PRN PO PAIN LEVEL 1-3 OR FEVER Last administered on 11/04/16 15:30; Admin Dose 650 MG; Start 10/25/16 at 11:00 Acetaminophen (Tylenol Supp) 650 mg Q4H PRN [place] PAIN LEVEL 1-3 OR FEVER; Start 10/25/16 at 11:00 Docusate Sodium (Colace) 100 mg Q12H PRN PO CONSTIPATION; Start 10/25/16 at 11: 00 Bisacodyl (Dulcolax Supp) 10 mg DAILY PRN [place] CONSTIPATION; Start 10/25/16 at 11: 00 Amiodarone HCl (Cordarone) 400 mg BID GTB Last administered on 11/01/16 10:22 ; Admin Dose 400 MG; Start 10/25/16 at 21:00 Ascorbic Acid (Vitamin C) 500 mg DAILY GTB Last administered on 11/01/16 10:21 ; Admin Dose 500 MG; Start 10/26/16 at 09:00 Chlorhexidine Gluconate (Peridex) 15 ml Q12 MM Last administered on 11/06/16 09:19; Admin Dose 15 ML; Start 10/25/16 at 21:00 Collagenase (Santyl) 1 applic DAILY TOP Last administered on 11/06/16 12:43; Admin Dose 1 APPLIC; Start 10/26/16 at 09:00 Ferrous Sulfate (Feosol Liquid Cup) 330 mg DAILY GTB Last administered on 10:29; Admin Dose 330 MG; Start 10/26/16 at 09:00 Multivitamins Therapeutic (Theragran) 1 tab DAILY GTB Last administered on 11/01 10:20; Admin Dose 1 TAB; Start 10/26/16 at 09:00 Lactobacillus Acidoph/Bulgaricus (Floranex) 1 tab BID PO Last administered on 21:40; Admin Dose 1 TAB; Start 10/25/16 at 21:00 Fenofibrate (Tricor) 145 mg DAILY PO Last administered on 11/01/16 10:20; Admin Dose 145 MG; Start 10/26/16 at 09:00 IV Flush (NS 10 ml) 10 ml PRN PRN IV IV PROTOCOL; Start 10/25/16 at 11:30 Atorvastatin Calcium (Lipitor) 20 mg HS PO Last administered on 11/01/16 21:40 ; Admin Dose 20 MG; Start 10/25/16 at 21:00 Miscellaneous Information 1 ea NOTE XX ; Start 10/26/16 at 09:30 Glucose (Glutose) 15 gm Q15M PRN PO DECREASED GLUCOSE; Start 10/26/16 at 09:30 Glucose (Glutose) 22.5 gm Q15M PRN PO DECREASED GLUCOSE; Start 10/26/16 at 09:30 Dextrose (D50w Syringe) 25 ml Q15M PRN IV DECREASED GLUCOSE Last administered on 11/04/16 07:38; Admin Dose 25 ML; Start 10/26/16 at 09:30 Dextrose (D50w Syringe) 50 ml Q15M PRN IV DECREASED GLUCOSE; Start 10/26/16 at 09:30 Glucagon (Glucagen) 1 mg Q15M PRN IM DECREASED GLUCOSE; Start 10/26/16 at 09:30 Glucose (Glutose) 15 gm Q15M PRN BUCCAL DECREASED GLUCOSE; Start 10/26/16 at 09: 30 Insulin Glargine (Lantus) 12 unit DAILY@20 SC Last administered on 10/30/16 21 :46; Admin Dose 12 UNIT; Start 10/26/16 at 20:00 Sodium Hypochlorite (Dakin'S (1/4 Strength)) 1 applic DAILY IRR Last administered on 11/06/16 12:44; Admin Dose 1 APPLIC; Start 10/27/16 at 09:00 Insulin Aspart (Novolog Insulin Pen) NOVOLOG *MILD* ALGORI... Q6 SC Last administered on 10/29/16 17:51; Admin Dose 1 UNIT; Start 10/29/16 at 12:00 Linezolid 600 mg 600 mg BID PO Last administered on 11/01/16 21:40; Admin Dose 600 MG; Start 10/30/16 at 21:00 Colistimethate Sodium/Sodium Chloride (Coly-Mycin/NS) 100 ml @ 200 mls/hr Q12 IVPB Last administered on 11/06/16 09:18; Admin Dose 200 MLS/HR; Start at 21:00 Non-Formulary Medication 10 ml QID GTB Last administered on 11/04/16 17:59; Admin Dose 10 ML; Start 10/31/16 at 17:00 Mupirocin 1 applic 1 applic BID TOP Last administered on 11/06/16 09:18; Admin Dose 1 APPLIC; Start 11/02/16 at 16:30 Metronidazole 100 ml @ 100 mls/hr Q8 IVPB Last administered on 11/06/16 14:15 ; Admin Dose 100 MLS/HR; Start 11/02/16 at 15:30 Potassium Chloride 250 ml @ 62.5 mls/hr ONCE ONCE IVPB Last administered on 12:44; Admin Dose 62.5 MLS/HR; Start 11/06/16 at 12:30; Stop 11/06/16 at 16:29 Sodium Bicarbonate/ Dextrose (Na Bicarb/D5W) 1,050 ml @ 80 mls/hr Q13H8M IV Last administered on 11/06/16 11:44; Admin Dose 80 MLS/HR; Start 11/06/16 at 10 :00 Lansoprazole (Prevacid) 30 mg BID@06,18 PO ; Start 11/06/16 at 18:00 RAYMON BETANCOURT MD Nov 06, 2016 15:25
--- NOTE | 2016-11-06 16:48 | PN ---
Date/Time of Note Date/Time of Note DATE: 11/06/16 TIME: 16:47 Assessment/Plan VTE Prophylaxis VTE Prophylaxis Intervention: SCD's Lines/Catheters IV Catheter Type (from Nrs): PICC Line Central line still needed: No Urinary Cath still in place: Yes Reason Cath still needed: urinary retention Assessment/Plan Assessment/Plan Septic shock Acute blood loss anemia Elevated troponin likely secondary to above Respiratory failure Paroxysmal atrial fibrillation, currently sinus rhythm Paroxysmal atrial tachycardia Preserved ejection fraction Acute kidney injury Hypokalemia -Blood pressure trend improved, IV fluids as per nephrology. Continue to hold any antihypertensives at the current time. No anticoagulation given history of recurrent hematuria - possibly in the future -rx kcl due to hypokalemia - renal service involved Subjective 24 Hr Interval Summary Free Text/Dictation The patient with no cahnge Exam/Review of Systems Vital Signs Vitals Vital Signs Date Time Temp Pulse Resp B/P Pulse Ox O2 Delivery O2 Flow Rate FiO2 11/06/16 16:20 110 11/06/16 16:07 98.5 19 102/57 96 11/06/16 15:20 30 11/03/16 23:47 Mechanical Ventilator Intake and Output 11/05/16 11/05/16 11/06/16 15:00 23:00 07:00 Intake Total 1020 ml 450 ml Output Total 600 ml 400 ml Balance 420 ml 50 ml Results Result Diagram: 11/06/16 0542 11/06/16 0542 Results 24 hrs Laboratory Tests Test 11/05/16 17:40 11/05/16 19:57 11/05/16 23:52 11/06/16 05:42 Bedside Glucose 83 80 78 White Blood Count 10.2 Red Blood Count 2.99 L Hemoglobin 8.1 L Hematocrit 26.5 L Mean Corpuscular Volume 88.6 Mean Corpuscular Hemoglobin 27.1 L Mean Corpuscular Hemoglobin Concent 30.6 L Red Cell Distribution Width 17.8 H Platelet Count 166 Mean Platelet Volume 11.9 H Neutrophils % 75.5 Lymphocytes % 15.8 Monocytes % 6.7 Eosinophils % 1.2 Basophils % 0.3 Nucleated Red Blood Cells % 0.0 Neutrophils # 7.7 H Lymphocytes # 1.6 Monocytes # 0.7 Eosinophils # 0.1 Basophils # 0.0 Nucleated Red Blood Cells # 0.0 Prothrombin Time 23.3 #H Prothrombin Time Ratio 1.8 INR International Normalized Ratio 2.05 Activated Partial Thromboplast Time 55.3 H Sodium Level 138 Potassium Level 3.0 L Chloride Level 116 H Carbon Dioxide Level 17 L Anion Gap 8 Blood Urea Nitrogen 9 Creatinine 0.87 Glucose Level 82 Calcium Level 8.3 L Phosphorus Level 4.0 Magnesium Level 1.0 L Total Bilirubin 0.0 L Direct Bilirubin 0.00 Indirect Bilirubin 0.0 Aspartate Amino Transf (AST/SGOT) 27 Alanine Aminotransferase (ALT/SGPT) 28 Alkaline Phosphatase 73 Total Protein 4.4 L Albumin 1.6 L Globulin 2.80 Albumin/Globulin Ratio 0.57 Test 11/06/16 05:44 11/06/16 12:19 Bedside Glucose 73 90 Medications Medications Current Medications Ondansetron HCl (Zofran Inj) 4 mg Q6H PRN IV NAUSEA AND/OR VOMITING Last administered on 10/27/16 13:51; Admin Dose 4 MG; Start 10/25/16 at 11:00 Nitroglycerin (Nitroglycerin (Sl Tab) 0.4 Mg) 1 tab Q5M PRN SL CHEST PAIN; Start 10/25/16 at 11:00 Acetaminophen (Tylenol Tab) 650 mg Q6H PRN PO PAIN LEVEL 1-3 OR FEVER Last administered on 11/04/16 15:30; Admin Dose 650 MG; Start 10/25/16 at 11:00 Acetaminophen (Tylenol Supp) 650 mg Q4H PRN ID PAIN LEVEL 1-3 OR FEVER; Start 10/25/16 at 11:00 Docusate Sodium (Colace) 100 mg Q12H PRN PO CONSTIPATION; Start 10/25/16 at 11: 00 Bisacodyl (Dulcolax Supp) 10 mg DAILY PRN ID CONSTIPATION; Start 10/25/16 at 11: 00 Amiodarone HCl (Cordarone) 400 mg BID GTB Last administered on 11/01/16 10:22 ; Admin Dose 400 MG; Start 10/25/16 at 21:00 Ascorbic Acid (Vitamin C) 500 mg DAILY GTB Last administered on 11/01/16 10:21 ; Admin Dose 500 MG; Start 10/26/16 at 09:00 Chlorhexidine Gluconate (Peridex) 15 ml Q12 MM Last administered on 11/06/16 09:19; Admin Dose 15 ML; Start 10/25/16 at 21:00 Collagenase (Santyl) 1 applic DAILY TOP Last administered on 11/06/16 12:43; Admin Dose 1 APPLIC; Start 10/26/16 at 09:00 Ferrous Sulfate (Feosol Liquid Cup) 330 mg DAILY GTB Last administered on 10:29; Admin Dose 330 MG; Start 10/26/16 at 09:00 Multivitamins Therapeutic (Theragran) 1 tab DAILY GTB Last administered on 11/01 10:20; Admin Dose 1 TAB; Start 10/26/16 at 09:00 Lactobacillus Acidoph/Bulgaricus (Floranex) 1 tab BID PO Last administered on 21:40; Admin Dose 1 TAB; Start 10/25/16 at 21:00 Fenofibrate (Tricor) 145 mg DAILY PO Last administered on 11/01/16 10:20; Admin Dose 145 MG; Start 10/26/16 at 09:00 IV Flush (NS 10 ml) 10 ml PRN PRN IV IV PROTOCOL; Start 10/25/16 at 11:30 Atorvastatin Calcium (Lipitor) 20 mg HS PO Last administered on 11/01/16 21:40 ; Admin Dose 20 MG; Start 10/25/16 at 21:00 Miscellaneous Information 1 ea NOTE XX ; Start 10/26/16 at 09:30 Glucose (Glutose) 15 gm Q15M PRN PO DECREASED GLUCOSE; Start 10/26/16 at 09:30 Glucose (Glutose) 22.5 gm Q15M PRN PO DECREASED GLUCOSE; Start 10/26/16 at 09:30 Dextrose (D50w Syringe) 25 ml Q15M PRN IV DECREASED GLUCOSE Last administered on 11/04/16 07:38; Admin Dose 25 ML; Start 10/26/16 at 09:30 Dextrose (D50w Syringe) 50 ml Q15M PRN IV DECREASED GLUCOSE; Start 10/26/16 at 09:30 Glucagon (Glucagen) 1 mg Q15M PRN IM DECREASED GLUCOSE; Start 10/26/16 at 09:30 Glucose (Glutose) 15 gm Q15M PRN BUCCAL DECREASED GLUCOSE; Start 10/26/16 at 09: 30 Insulin Glargine (Lantus) 12 unit DAILY@20 SC Last administered on 10/30/16 21 :46; Admin Dose 12 UNIT; Start 10/26/16 at 20:00 Sodium Hypochlorite (Dakin'S (1/4 Strength)) 1 applic DAILY IRR Last administered on 11/06/16 12:44; Admin Dose 1 APPLIC; Start 10/27/16 at 09:00 Insulin Aspart (Novolog Insulin Pen) NOVOLOG *MILD* ALGORI... Q6 SC Last administered on 10/29/16 17:51; Admin Dose 1 UNIT; Start 10/29/16 at 12:00 Linezolid 600 mg 600 mg BID PO Last administered on 11/01/16 21:40; Admin Dose 600 MG; Start 10/30/16 at 21:00 Colistimethate Sodium/Sodium Chloride (Coly-Mycin/NS) 100 ml @ 200 mls/hr Q12 IVPB Last administered on 11/06/16 09:18; Admin Dose 200 MLS/HR; Start at 21:00 Non-Formulary Medication 10 ml QID GTB Last administered on 11/04/16 17:59; Admin Dose 10 ML; Start 10/31/16 at 17:00 Mupirocin 1 applic 1 applic BID TOP Last administered on 11/06/16 09:18; Admin Dose 1 APPLIC; Start 11/02/16 at 16:30 Metronidazole 100 ml @ 100 mls/hr Q8 IVPB Last administered on 11/06/16 14:15 ; Admin Dose 100 MLS/HR; Start 11/02/16 at 15:30 Sodium Bicarbonate/ Dextrose (Na Bicarb/D5W) 1,050 ml @ 80 mls/hr Q13H8M IV Last administered on 11/06/16 11:44; Admin Dose 80 MLS/HR; Start 11/06/16 at 10 :00 Lansoprazole (Prevacid) 30 mg BID@06,18 PO ; Start 11/06/16 at 18:00 JORGE CAZARES MD Nov 06, 2016 16:48
[2016-11-06] MEDS: LANSOPRAZOLE 30 MG CAP PO SCH (17:19)
[2016-11-06] MEDS: INSULIN GLARGINE [LANtus] 3 ML PEN SC SCH (20:00)
--- NOTE | 2016-11-06 20:12 | PN ---
Date/Time of Note Date/Time of Note DATE: 11/06/16 TIME: 20:10 Assessment/Plan Lines/Catheters IV Catheter Type (from [facility]): PICC Line Ferreira in Place (from [facility]): Yes Assessment/Plan Chief Complaint/Hosp Course 1. Sacral deep tissue injury s/p excisional debridement 11/01 -offloading -optimize nutrition per feeding tube -vitamin C administration -local care. 2. Lower extremity decubitus ulcerations as above. 3. Shock (sepsis plus or minus hypovolemia, plus or minus cardiac). Improved -Continue judicious fluid management, cardiac optimization and treatment of underlying infections. 4. Urinary tract infection. Continue antibiotics. 5. Significant anemia of unknown etiology. EGD performed. Colonoscopy 10/31. -gi/medical management -tx prn 6. Diabetes. Continue nutrition and medication control. 7. Elevated troponin with non-ST elevation myocardial infarction. Continue cardiac optimization. 8. History of cerebrovascular accident. Continue medical optimization. 9. Peptic ulcer disease. Continue proton pump inhibitors. 10. Coronary artery disease. Continue cardiac optimization. 11. Acute renal insufficiency secondary to above. Continue judicious fluid management. 12. Ventilator-dependent respiratory failure. Continue pulmonary toilet. 13. Dysphagia and tube feeds s/p PEG Thank you, Problems: Subjective 24 Hr Interval Summary Fevers resolved. Tachycardia on/off. No cough. No sz/rash. No bloating. No vomiting. Bowel function. Exam/Review of Systems Vital Signs Vitals Vital Signs Date Time Temp Pulse Resp B/P Pulse Ox O2 Delivery O2 Flow Rate FiO2 11/06/16 17:25 108 17 96 30 11/06/16 16:07 98.5 102/57 11/03/16 23:47 Mechanical Ventilator Intake and Output 11/05/16 11/05/16 11/06/16 15:00 23:00 07:00 Intake Total 1020 ml 450 ml Output Total 600 ml 400 ml Balance 420 ml 50 ml Exam Free Text/Dictation GENERAL: Awake but noncommunicative. HEENT: The pupils are equal and reactive. No scleral icterus. Mucous membranes are moist. NECK: Trach in place. No JVD. PULMONARY: Decreased breath sounds. No wheezing. CARDIAC: S1, S2 ABDOMEN: Soft. PEG in place. EXTREMITIES: Minimal edema. VASCULAR: Capillary refill is 3 seconds. NEUROLOGIC: Awake, but does not follow commands. SKIN: Sacrococcygeal ulcer with packing. Bilateral lower extremity skin injuries. Results Result Diagram: 11/06/16 0542 11/06/16 0542 MINNIE SHIELDS MD Nov 06, 2016 20:12
[2016-11-06] MEDS: ATORVASTATIN 20 MG TAB PO SCH (21:54)
[2016-11-07] VITALS (24 sets, daily range): BP systolic 88–107; BP diastolic 50–57; PULSE 95–105; RESP 16–21
[2016-11-07] MEDS: INSULIN ASPART [NOVOLOG] 3 ML PEN SC SCH ×4 (00:32→17:43)
--- NOTE | 2016-11-07 00:38 | PN ---
DATE: 11/06/2016 SUBJECTIVE: Gross hematuria that has subsided and the patient is on a respirator and cannot express any complaints. PHYSICAL EXAMINATION: VITAL SIGNS: His temperature is 98.1, blood pressure 93/51, pulse 108, CO2 18. ABDOMEN: A little obese. GENITOURINARY: The Ferreira catheter that he has now is draining clear urine. LABORATORY DATA: His CBC shows a white count 10.2, hemoglobin 8.1, hematocrit 26.5. BUN is 9, crea tinine 0.87, sodium 138, potassium 3.0, chloride 116, and CO2 17. IMPRESSION: Gross hematuria that has cleared and the Ferreira catheter is draining well. PLAN: To continue present treatment. Dictated By: TANA DUBOIS/GENOVEVA Conf#: [id number] DID#: [id number]
[2016-11-07] MEDS: metroNIDAZOLE 500 MG/NS (PMX) 100 ML IVPB SCH ×3 (06:01→22:32)
[2016-11-07] MEDS: SODIUM BICARBONATE (IV ADD) 50 MEQ in DEXTROSE 5% 1,000 ML IV SCH (06:02)
[2016-11-07] MEDS: LANSOPRAZOLE 30 MG CAP PO SCH ×2 (06:02→17:34)
[2016-11-07 06:34] LABS: ADD SCAN DIFF NO
[2016-11-07 06:39] LABS: BASOPHILS % 0.2 % (0.0-2.0); EOSINOPHILS # 0.1 10^3/ul (0.0-0.5); EOSINOPHILS % 1.3 % (0.0-7.0); HEMOGLOBIN 7.9 g/dl (14.0-18.0); LYMPHOCYTES # 1.6 10^3/ul (0.8-2.9); LYMPHOCYTES % 16.5 % (15.0-51.0); MEAN CORPUSCULAR HEMOGLOBIN 27.1 pg (29.0-33.0); MEAN CORPUSCULAR HGB CONC 30.4 g/dl (32.0-37.0); MEAN PLATELET VOLUME 11.9 fl (7.4-10.4); MONOCYTE # 0.6 10^3/ul (0.3-0.9); MONOCYTES % 6.7 % (0.0-11.0); NEUTROPHIL # 7.1 10^3/ul (1.6-7.5); NEUTROPHILS % 74.6 % (39.0-77.0); PLATELET COUNT 192 10^3/UL (140-415); RED BLOOD COUNT 2.92 10^6/ul (4.70-6.10); RED CELL DISTRIBUTION WIDTH 17.8 % (11.5-14.5); WHITE BLOOD COUNT 9.6 10^3/ul (4.8-10.8)
[2016-11-07 06:57] LABS: INR 2.21; PROTIME 24.8 Sec (12.2-14.2); PT RATIO 1.9
[2016-11-07 06:58] LABS: PARTIAL THROMBOPLASTIN TIME 52.2 Sec (25.0-35.0)
[2016-11-07 07:07] LABS: CALCIUM 7.9 mg/dl (8.4-10.2); CREATININE 0.91 mg/dl (0.61-1.24); POTASSIUM 3.2 mmol/L (3.5-5.1)
[2016-11-07] MEDS: AMIODARONE 200 MG TAB GTB SCH ×2 (09:00→20:54)
[2016-11-07] MEDS: ZYVOX 600 MG TAB PO SCH ×2 (09:32→20:37)
[2016-11-07] MEDS: ASCORBIC ACID 500 MG TAB GTB SCH (09:32)
[2016-11-07] MEDS: MULTIVITAMINS THERAPEUTIC TAB GTB SCH (09:32)
[2016-11-07] MEDS: LACTOBACILLUS CHEW TAB PO SCH ×2 (09:32→20:37)
[2016-11-07] MEDS: FERROUS SULFATE 60 MG/ML 5ML CUP GTB SCH (09:32)
[2016-11-07] MEDS: FENOFIBRATE 145 MG TAB PO SCH (09:33)
[2016-11-07] MEDS: SULFASALAZINE GTB SCH ×4 (09:33→20:37)
[2016-11-07] MEDS: CHLORHEXIDINE GLUCONATE 15 ML UD CUP MM SCH ×2 (09:33→20:37)
[2016-11-07] MEDS: MUPIROCIN 2% 22 GM OINT TOP SCH ×2 (09:34→21:03)
[2016-11-07] MEDS: COLISTIMETHATE 75 MG in SOD CHLORIDE 0.9% 100 ML IVPB SCH ×2 (09:34→22:24)
--- NOTE | 2016-11-07 09:37 | PN ---
Date/Time of Note Date/Time of Note DATE: 11/07/16 TIME: 09:32 Assessment/Plan VTE Prophylaxis VTE Prophylaxis Intervention: SCD's Lines/Catheters IV Catheter Type (from Nrs): PICC Line Central line still needed: Yes (IV acces, IV abx ) Urinary Cath still in place: Yes Reason Cath still needed: pres ulcer contaminated by urine Assessment/Plan Assessment/Plan 1. S/p Septic shock 2/2 urinary tract infection, Off Pressors now, ID following 2. Ventilator-dependent respiratory failure. Continue vent management by heel seat fitter. 3. Non-ST myocardial infarction with elevated troponin, likely demand ischemia secondary to anemia. 4. Severe symptomatic anemia due to lower Gi bleeding s/p 2 U PRBC transfusion during this hospitalization- s/p EGD 10/27/2016 with finding of gastrostomy tube in the body of the stomach.Otherwise, normal esophagogastroduodenoscopy with no bleeding site identified s/p 10/31/2016 Colonoscopy and finding of an 8 mm ulcer in the proximal descending colon & A 4 cm ulcer in the cecum with Large internal hemorrhoids. 5. THEO due to ATN from sepsis and prerenal azotemia - stable cr 7. Diabetic mellitus . Place the patient on Lantus, continue insulin sliding scale. 8. History of essential hypertension. 9. Dyslipidemia, on statin. 10. Sacral decubitus, continue wound care, status post surgical debridement on 11/01/2016, continue postop care 12. Hematuria, urology has been consulted, resolved 13. PEG tube dysfunction, GI on case 14. Hypokalemia, Hypomagnesemia - pt is having interstitial defect due to IV colistin, will replace electrolytes, Continue Bicarbonate drip for low HCo3 16 KCl 30mEQ IV x 1 , magensium suflate 4 gram IV x 1 dose now continue D5W with 1 ampoule of Sodium bicarbonate to run at 80 cc/hr , HCO3 still low 16 DVT prophylaxis; SCD, no Heparin/Lovenox due to GI bleeding CONDITION: Guarded Subjective 24 Hr Interval Summary Free Text/Dictation pt remained stable on ventilator but his Mag and K has been low, Hb 7.9 Exam/Review of Systems Vital Signs Vitals Vital Signs Date Time Temp Pulse Resp B/P Pulse Ox O2 Delivery O2 Flow Rate FiO2 11/07/16 08:26 105 4/18/17 07:45 16 98 30 11/07/16 07:35 98.5 96/53 11/03/16 23:47 Mechanical Ventilator Intake and Output 11/06/16 11/06/16 11/07/16 15:00 23:00 07:00 Intake Total 326 ml 810 ml 670 ml Output Total 300 ml 415 ml Balance 326 ml 510 ml 255 ml Exam General: The patient is cachectic, Not in acute distress. unresponsive HEENT: Atraumatic, normocephalic. The pupils are equal and round . Neck: Tracheostomy in place Chest: Normal expansion of the thorax during inspiration Lungs: Bilateral Coarse BS + Heart: Normal S1-S2, Regular rhythm and rate. Abdomen: Soft , nontender, nondistended , bowel sounds are present. + PEG tube in place Extremities: Normal to inspection, no edema no cyanosis Results Result Diagram: 11/07/16 0445 11/07/16 0445 Results 24 hrs Laboratory Tests Test 11/06/16 12:19 11/06/16 17:23 11/07/16 00:27 11/07/16 04:45 Bedside Glucose 90 78 149 White Blood Count 9.6 Red Blood Count 2.92 L Hemoglobin 7.9 L Hematocrit 26.0 L Mean Corpuscular Volume 89.0 Mean Corpuscular Hemoglobin 27.1 L Mean Corpuscular Hemoglobin Concent 30.4 L Red Cell Distribution Width 17.8 H Platelet Count 192 Mean Platelet Volume 11.9 H Neutrophils % 74.6 Lymphocytes % 16.5 Monocytes % 6.7 Eosinophils % 1.3 Basophils % 0.2 Nucleated Red Blood Cells % 0.0 Neutrophils # 7.1 Lymphocytes # 1.6 Monocytes # 0.6 Eosinophils # 0.1 Basophils # 0.0 Nucleated Red Blood Cells # 0.0 Prothrombin Time 24.8 H Prothrombin Time Ratio 1.9 INR International Normalized Ratio 2.21 Activated Partial Thromboplast Time 52.2 H Sodium Level 134 L Potassium Level 3.2 L Chloride Level 114 H Carbon Dioxide Level 16 L Anion Gap 7 L Blood Urea Nitrogen 9 Creatinine 0.91 Glucose Level 147 # Calcium Level 7.9 L Magnesium Level 1.3 L Test 11/07/16 05:07 Bedside Glucose 160 Medications Medications Current Medications Ondansetron HCl (Zofran Inj) 4 mg Q6H PRN IV NAUSEA AND/OR VOMITING Last administered on 10/27/16t 13:51; Admin Dose 4 MG; Start 10/25/16 at 11:00 Nitroglycerin (Nitroglycerin (Sl Tab) 0.4 Mg) 1 tab Q5M PRN SL CHEST PAIN; Start 10/25/16 at 11:00 Acetaminophen (Tylenol Tab) 650 mg Q6H PRN PO PAIN LEVEL 1-3 OR FEVER Last administered on 11/04/16 15:30; Admin Dose 650 MG; Start 10/25/16 at 11:00 Acetaminophen (Tylenol Supp) 650 mg Q4H PRN GA PAIN LEVEL 1-3 OR FEVER; Start 10/25/16 at 11:00 Docusate Sodium (Colace) 100 mg Q12H PRN PO CONSTIPATION; Start 10/25/16 at 11: 00 Bisacodyl (Dulcolax Supp) 10 mg DAILY PRN GA CONSTIPATION; Start 10/25/16 at 11: 00 Amiodarone HCl (Cordarone) 400 mg BID GTB Last administered on 11/01/16 10:22 ; Admin Dose 400 MG; Start 10/25/16 at 21:00 Ascorbic Acid (Vitamin C) 500 mg DAILY GTB Last administered on 11/01/16 10:21 ; Admin Dose 500 MG; Start 10/26/16 at 09:00 Chlorhexidine Gluconate (Peridex) 15 ml Q12 MM Last administered on 11/06/16 21:53; Admin Dose 15 ML; Start 10/25/16 at 21:00 Collagenase (Santyl) 1 applic DAILY TOP Last administered on 11/06/16 12:43; Admin Dose 1 APPLIC; Start 10/26/16 at 09:00 Ferrous Sulfate (Feosol Liquid Cup) 330 mg DAILY GTB Last administered on 10:29; Admin Dose 330 MG; Start 10/26/16 at 09:00 Multivitamins Therapeutic (Theragran) 1 tab DAILY GTB Last administered on 11/01 10:20; Admin Dose 1 TAB; Start 10/26/16 at 09:00 Lactobacillus Acidoph/Bulgaricus (Floranex) 1 tab BID PO Last administered on 22:47; Admin Dose 1 TAB; Start 10/25/16 at 21:00 Fenofibrate (Tricor) 145 mg DAILY PO Last administered on 11/01/16 10:20; Admin Dose 145 MG; Start 10/26/16 at 09:00 IV Flush (NS 10 ml) 10 ml PRN PRN IV IV PROTOCOL; Start 10/25/16 at 11:30 Atorvastatin Calcium (Lipitor) 20 mg HS PO Last administered on 11/06/16 21:54 ; Admin Dose 20 MG; Start 10/25/16 at 21:00 Miscellaneous Information 1 ea NOTE XX ; Start 10/26/16 at 09:30 Glucose (Glutose) 15 gm Q15M PRN PO DECREASED GLUCOSE; Start 10/26/16 at 09:30 Glucose (Glutose) 22.5 gm Q15M PRN PO DECREASED GLUCOSE; Start 10/26/16 at 09:30 Dextrose (D50w Syringe) 25 ml Q15M PRN IV DECREASED GLUCOSE Last administered on 11/04/16 07:38; Admin Dose 25 ML; Start 10/26/16 at 09:30 Dextrose (D50w Syringe) 50 ml Q15M PRN IV DECREASED GLUCOSE; Start 10/26/16 at 09:30 Glucagon (Glucagen) 1 mg Q15M PRN IM DECREASED GLUCOSE; Start 10/26/16 at 09:30 Glucose (Glutose) 15 gm Q15M PRN BUCCAL DECREASED GLUCOSE; Start 10/26/16 at 09: 30 Insulin Glargine (Lantus) 12 unit DAILY@20 SC Last administered on 10/30/16 21 :46; Admin Dose 12 UNIT; Start 10/26/16 at 20:00 Sodium Hypochlorite (Dakin'S (1/4 Strength)) 1 applic DAILY IRR Last administered on 11/06/16 12:44; Admin Dose 1 APPLIC; Start 10/27/16 at 09:00 Insulin Aspart (Novolog Insulin Pen) NOVOLOG *MILD* ALGORI... Q6 SC Last administered on 11/07/16 05:20; Admin Dose 1 UNIT; Start 10/29/16 at 12:00 Linezolid 600 mg 600 mg BID PO Last administered on 11/06/16 21:54; Admin Dose 600 MG; Start 10/30/16 at 21:00 Colistimethate Sodium/Sodium Chloride (Coly-Mycin/NS) 100 ml @ 200 mls/hr Q12 IVPB Last administered on 11/06/16 21:54; Admin Dose 200 MLS/HR; Start at 21:00 Non-Formulary Medication 10 ml QID GTB Last administered on 11/06/16 21:53; Admin Dose 10 ML; Start 10/31/16 at 17:00 Mupirocin 1 applic 1 applic BID TOP Last administered on 11/06/16 21:54; Admin Dose 1 APPLIC; Start 11/02/16 at 16:30 Metronidazole 100 ml @ 100 mls/hr Q8 IVPB Last administered on 11/07/16 06:01 ; Admin Dose 100 MLS/HR; Start 11/02/16 at 15:30 Sodium Bicarbonate/ Dextrose (Na Bicarb/D5W) 1,050 ml @ 80 mls/hr Q13H8M IV Last administered on 11/07/16 06:02; Admin Dose 80 MLS/HR; Start 11/06/16 at 10 :00 Lansoprazole (Prevacid) 30 mg BID@06,18 PO Last administered on 11/07/16 06:02 ; Admin Dose 30 MG; Start 11/06/16 at 18:00 DAO PÉREZ MD Nov 07, 2016 09:37
--- NOTE | 2016-11-07 10:58 | CONS ---
Date/Time of Note Date/Time of Note DATE: 11/07/16 TIME: 10:54 Assessment/Plan Assessment/Plan Additional Assessment/Plan Ventilator settings; AC of 12, tidal volume 550, PEEP of 5, 30% FiO2. Assessment recommendations; 1. Patient admitted for sepsis due to sacral decubitus ulcer and UTI , currently on broad-spectrum antibiotic coverage. 2. Advanced multi-infarct dementia. 3. Chronic respiratory failure, ventilator dependent. 4. Anemia and diabetes. Continue current supportive care. Prognosis remains poor. Consultation Date/Type/Reason Admit Date/Time Oct 25, 2016 at 10:54 Initial Consult Date 10/25/16 Type of Consultation: Pulmonary Referring Provider: DILIP ARELLANO MD 24 HR Interval Summary Free Text/Dictation Patient condition remains unchanged. Remains essentially unresponsive. Has remained hemodynamically stable. General exam; elderly male, on ventilator via tracheostomy currently in no distress. Exam/Review of Systems Vital Signs Vitals Vital Signs Date Time Temp Pulse Resp B/P Pulse Ox O2 Delivery O2 Flow Rate FiO2 11/07/16 09:40 102 17 97 30 11/07/16 07:35 98.5 96/53 11/03/16 23:47 Mechanical Ventilator Intake and Output 11/06/16 11/06/16 11/07/16 15:00 23:00 07:00 Intake Total 326 ml 810 ml 670 ml Output Total 300 ml 415 ml Balance 326 ml 510 ml 255 ml Exam HEENT exam is; supple neck, no JVD. No lymphadenopathy. Midline trachea. No thyromegaly. Trach ostomy in place with clean insertion site. Chest exam; clear to auscultation. S1-S2 audible, no murmurs. Regular rhythm. Abdomen examination; soft, nondistended. G-tube in place. No organomegaly. Extremity exam is; 2+ pitting lower extremity peripheral edema. WEB ENGINEER examination; patient remains unresponsive. Results Result Diagram: 11/07/16 0445 11/07/16 0445 Results 24 hrs Laboratory Tests Test 11/06/16 12:19 11/06/16 17:23 11/07/16 00:27 11/07/16 04:45 Bedside Glucose 90 78 149 White Blood Count 9.6 Red Blood Count 2.92 L Hemoglobin 7.9 L Hematocrit 26.0 L Mean Corpuscular Volume 89.0 Mean Corpuscular Hemoglobin 27.1 L Mean Corpuscular Hemoglobin Concent 30.4 L Red Cell Distribution Width 17.8 H Platelet Count 192 Mean Platelet Volume 11.9 H Neutrophils % 74.6 Lymphocytes % 16.5 Monocytes % 6.7 Eosinophils % 1.3 Basophils % 0.2 Nucleated Red Blood Cells % 0.0 Neutrophils # 7.1 Lymphocytes # 1.6 Monocytes # 0.6 Eosinophils # 0.1 Basophils # 0.0 Nucleated Red Blood Cells # 0.0 Prothrombin Time 24.8 H Prothrombin Time Ratio 1.9 INR International Normalized Ratio 2.21 Activated Partial Thromboplast Time 52.2 H Sodium Level 134 L Potassium Level 3.2 L Chloride Level 114 H Carbon Dioxide Level 16 L Anion Gap 7 L Blood Urea Nitrogen 9 Creatinine 0.91 Glucose Level 147 # Calcium Level 7.9 L Magnesium Level 1.3 L Test 11/07/16 05:07 Bedside Glucose 160 Medications Medications Current Medications Ondansetron HCl (Zofran Inj) 4 mg Q6H PRN IV NAUSEA AND/OR VOMITING Last administered on 10/27/16 13:51; Admin Dose 4 MG; Start 10/25/16 at 11:00 Nitroglycerin (Nitroglycerin (Sl Tab) 0.4 Mg) 1 tab Q5M PRN SL CHEST PAIN; Start 10/25/16 at 11:00 Acetaminophen (Tylenol Tab) 650 mg Q6H PRN PO PAIN LEVEL 1-3 OR FEVER Last administered on 11/04/16 15:30; Admin Dose 650 MG; Start 10/25/16 at 11:00 Acetaminophen (Tylenol Supp) 650 mg Q4H PRN [place] PAIN LEVEL 1-3 OR FEVER; Start 10/25/16 at 11:00 Docusate Sodium (Colace) 100 mg Q12H PRN PO CONSTIPATION; Start 10/25/16 at 11: 00 Bisacodyl (Dulcolax Supp) 10 mg DAILY PRN [place] CONSTIPATION; Start 10/25/16 at 11: 00 Amiodarone HCl (Cordarone) 400 mg BID GTB Last administered on 11/01/16 10:22 ; Admin Dose 400 MG; Start 10/25/16 at 21:00 Ascorbic Acid (Vitamin C) 500 mg DAILY GTB Last administered on 11/07/16 09:32 ; Admin Dose 500 MG; Start 10/26/16 at 09:00 Chlorhexidine Gluconate (Peridex) 15 ml Q12 MM Last administered on 11/07/16 09:33; Admin Dose 15 ML; Start 10/25/16 at 21:00 Collagenase (Santyl) 1 applic DAILY TOP Last administered on 11/06/16 12:43; Admin Dose 1 APPLIC; Start 10/26/16 at 09:00 Ferrous Sulfate (Feosol Liquid Cup) 330 mg DAILY GTB Last administered on 09:32; Admin Dose 330 MG; Start 10/26/16 at 09:00 Multivitamins Therapeutic (Theragran) 1 tab DAILY GTB Last administered on 11/07 09:32; Admin Dose 1 TAB; Start 10/26/16 at 09:00 Lactobacillus Acidoph/Bulgaricus (Floranex) 1 tab BID PO Last administered on 09:32; Admin Dose 1 TAB; Start 10/25/16 at 21:00 Fenofibrate (Tricor) 145 mg DAILY PO Last administered on 11/07/16 09:33; Admin Dose 145 MG; Start 10/26/16 at 09:00 IV Flush (NS 10 ml) 10 ml PRN PRN IV IV PROTOCOL; Start 10/25/16 at 11:30 Atorvastatin Calcium (Lipitor) 20 mg HS PO Last administered on 11/06/16 21:54 ; Admin Dose 20 MG; Start 10/25/16 at 21:00 Miscellaneous Information 1 ea NOTE XX ; Start 10/26/16 at 09:30 Glucose (Glutose) 15 gm Q15M PRN PO DECREASED GLUCOSE; Start 10/26/16 at 09:30 Glucose (Glutose) 22.5 gm Q15M PRN PO DECREASED GLUCOSE; Start 10/26/16 at 09:30 Dextrose (D50w Syringe) 25 ml Q15M PRN IV DECREASED GLUCOSE Last administered on 11/04/16 07:38; Admin Dose 25 ML; Start 10/26/16 at 09:30 Dextrose (D50w Syringe) 50 ml Q15M PRN IV DECREASED GLUCOSE; Start 10/26/16 at 09:30 Glucagon (Glucagen) 1 mg Q15M PRN IM DECREASED GLUCOSE; Start 10/26/16 at 09:30 Glucose (Glutose) 15 gm Q15M PRN BUCCAL DECREASED GLUCOSE; Start 10/26/16 at 09: 30 Insulin Glargine (Lantus) 12 unit DAILY@20 SC Last administered on 10/30/16 21 :46; Admin Dose 12 UNIT; Start 10/26/16 at 20:00 Sodium Hypochlorite (Dakin'S (1/4 Strength)) 1 applic DAILY IRR Last administered on 11/06/16 12:44; Admin Dose 1 APPLIC; Start 10/27/16 at 09:00 Insulin Aspart (Novolog Insulin Pen) NOVOLOG *MILD* ALGORI... Q6 SC Last administered on 11/07/16 05:20; Admin Dose 1 UNIT; Start 10/29/16 at 12:00 Linezolid 600 mg 600 mg BID PO Last administered on 11/07/16 09:32; Admin Dose 600 MG; Start 10/30/16 at 21:00 Colistimethate Sodium/Sodium Chloride (Coly-Mycin/NS) 100 ml @ 200 mls/hr Q12 IVPB Last administered on 11/07/16 09:34; Admin Dose 200 MLS/HR; Start at 21:00 Non-Formulary Medication 10 ml QID GTB Last administered on 11/07/16 09:33; Admin Dose 10 ML; Start 10/31/16 at 17:00 Mupirocin 1 applic 1 applic BID TOP Last administered on 11/07/16 09:34; Admin Dose 1 APPLIC; Start 11/02/16 at 16:30 Metronidazole 100 ml @ 100 mls/hr Q8 IVPB Last administered on 11/07/16 06:01 ; Admin Dose 100 MLS/HR; Start 11/02/16 at 15:30 Sodium Bicarbonate/ Dextrose (Na Bicarb/D5W) 1,050 ml @ 80 mls/hr Q13H8M IV Last administered on 11/07/16 06:02; Admin Dose 80 MLS/HR; Start 11/06/16 at 10 :00 Lansoprazole 30 mg 30 mg BID@06,18 PO Last administered on 11/07/16 06:02; Admin Dose 30 MG; Start 11/06/16 at 18:00 Magnesium Sulfate 100 ml @ 25 mls/hr ONCE ONCE IVPB ; Start 11/07/16 at 11:00 ; Stop 11/07/16 at 14:59 Potassium Chloride/Sodium Chloride (KCl/NS) 165 ml @ 55 mls/hr ONCE ONCE IVPB ; Start 11/07/16 at 11:00; Stop 11/07/16 at 13:59 JORGE ROBLES Nov 07, 2016 10:58
[2016-11-07] MEDS ORDERED: POTASSIUM CHLORIDE 30 MEQ in SOD CHLORIDE 0.9% 150 ML IVPB ONE (11:00)
[2016-11-07] MEDS ORDERED: MAGNESIUM SULFATE 4 GM/100 ML 100 ML IVPB ONE (11:00)
--- NOTE | 2016-11-07 13:06 | PN ---
Date/Time of Note Date/Time of Note DATE: 11/07/16 TIME: 13:05 Assessment/Plan Lines/Catheters IV Catheter Type (from [facility]): PICC Line Ferreira in Place (from [facility]): Yes Assessment/Plan Chief Complaint/Hosp Course 1. Sacral deep tissue injury s/p excisional debridement 11/01 -offloading -optimize nutrition per feeding tube -vitamin C administration -local care. 2. Lower extremity decubitus ulcerations as above. 3. Shock (sepsis plus or minus hypovolemia, plus or minus cardiac). Improved -Continue judicious fluid management, cardiac optimization and treatment of underlying infections. 4. Urinary tract infection. Continue antibiotics. 5. Significant anemia of unknown etiology. EGD performed. Colonoscopy 10/31. -gi/medical management -tx prn 6. Diabetes. Continue nutrition and medication control. 7. Elevated troponin with non-ST elevation myocardial infarction. Continue cardiac optimization. 8. History of cerebrovascular accident. Continue medical optimization. 9. Peptic ulcer disease. Continue proton pump inhibitors. 10. Coronary artery disease. Continue cardiac optimization. 11. Acute renal insufficiency secondary to above. Continue judicious fluid management. 12. Ventilator-dependent respiratory failure. Continue pulmonary toilet. 13. Dysphagia and tube feeds s/p PEG Thank you, Problems: Subjective 24 Hr Interval Summary Fevers resolved. Tachycardia on/off. No cough. No sz/rash. No bloating. No vomiting. Bowel function. Exam/Review of Systems Vital Signs Vitals Vital Signs Date Time Temp Pulse Resp B/P Pulse Ox O2 Delivery O2 Flow Rate FiO2 11/07/16 12:12 103 11/07/16 11:04 98.8 18 98/57 96 11/07/16 11:00 30 11/03/16 23:47 Mechanical Ventilator Intake and Output 11/06/16 11/06/16 11/07/16 15:00 23:00 07:00 Intake Total 326 ml 810 ml 670 ml Output Total 300 ml 415 ml Balance 326 ml 510 ml 255 ml Exam Free Text/Dictation GENERAL: Awake but noncommunicative. HEENT: The pupils are equal and reactive. No scleral icterus. Mucous membranes are moist. NECK: Trach in place. No JVD. PULMONARY: Decreased breath sounds. No wheezing. CARDIAC: S1, S2 ABDOMEN: Soft. PEG in place. EXTREMITIES: Minimal edema. VASCULAR: Capillary refill is 3 seconds. NEUROLOGIC: Awake, but does not follow commands. SKIN: Sacrococcygeal ulcer with packing. Bilateral lower extremity skin injuries. Results Result Diagram: 11/07/16 0445 11/07/16 0445 MINNIE SHIELDS MD Nov 07, 2016 13:06
--- NOTE | 2016-11-07 17:21 | PN ---
Date/Time of Note Date/Time of Note DATE: 11/07/16 TIME: 17:18 Assessment/Plan VTE Prophylaxis VTE Prophylaxis Intervention: SCD's Lines/Catheters IV Catheter Type (from [facility]): PICC Line Central line still needed: Yes Urinary Cath still in place: Yes Reason Cath still needed: urinary retention Assessment/Plan Chief Complaint/Hosp Course Problems: Assessment/Plan Colonic ileus resolver CT abdomen /Pelvis 11/05/2016 1. Dilation air distension of the mid to distal sigmoid colon, without evident volvulus. 2. The cecum is not dilated. 3. Moderate bilateral pleural effusions with dependent atelectasis versus airspace disease. 4. Cardiomegaly, without pericardial fluid. 5. Mild ascites over the liver, and moderate ascites over the spleen and extending into the left pericolic gutter. 6. Mild nonspecific small bowel ileus in the left abdomen. KUB 11/04/2016 1. New dilation of the cecum measuring up to 13 cm, with increased risk of perforation. 2. Differential considerations include dilated sigmoid colon. 3. Recommend CT correlation. 4. New dilatation of the transverse colon measuring up to about 8 cm , and differential considerations include dilated air-filled sigmoid colon. 3. New mild to moderate small bowel ileus, otherwise nonspecific. Sepsis resolving Anemia * Cecal ulcer /ulcer descending colon * s/p EGD 10/27/2016. 1.Gastrostomy tube in the body of the stomach.Otherwise, normal esophagogastroduodenoscopy with no bleeding site identified * Status post bedside PEG reinsertion * s/o 10/31/2016 Colonoscopy * 1. An 8 mm ulcer in the proximal descending colon, biopsied. * 2. A 4 cm ulcer in the cecum, biopsied. * 3. Normal ileum. * 4. Otherwise, normal colonic mucosa. * 5. Large internal hemorrhoids. Plan * tolerating diet * continue present management Subjective 24 Hr Interval Summary Free Text/Dictation * course reviewed with Nurse * patient seen and examined * tolerating feeding minimal residuals Exam/Review of Systems Vital Signs Vitals Vital Signs Date Time Temp Pulse Resp B/P Pulse Ox O2 Delivery O2 Flow Rate FiO2 11/07/16 15:05 100 19 97 30 11/07/16 14:57 97.9 99/55 11/03/16 23:47 Mechanical Ventilator Intake and Output 11/06/16 11/06/16 11/07/16 15:00 23:00 07:00 Intake Total 326 ml 810 ml 670 ml Output Total 300 ml 415 ml Balance 326 ml 510 ml 255 ml Exam Constitutional: frail Respiratory: diminished breath sounds, normal air movement, other (trach to vent) Cardiovascular: nl pulses, regular rate and rhythm Gastrointestinal: bowel sounds, distended, other (g tube in placed/rectal tube intact), soft Skin: other (multiple decubitus) Results Result Diagram: 11/07/165 11/07/16 0445 Results 24 hrs Laboratory Tests Test 11/06/16 17:23 11/07/16 00:27 11/07/16 04:45 11/07/16 05:07 Bedside Glucose 78 149 160 White Blood Count 9.6 Red Blood Count 2.92 L Hemoglobin 7.9 L Hematocrit 26.0 L Mean Corpuscular Volume 89.0 Mean Corpuscular Hemoglobin 27.1 L Mean Corpuscular Hemoglobin Concent 30.4 L Red Cell Distribution Width 17.8 H Platelet Count 192 Mean Platelet Volume 11.9 H Neutrophils % 74.6 Lymphocytes % 16.5 Monocytes % 6.7 Eosinophils % 1.3 Basophils % 0.2 Nucleated Red Blood Cells % 0.0 Neutrophils # 7.1 Lymphocytes # 1.6 Monocytes # 0.6 Eosinophils # 0.1 Basophils # 0.0 Nucleated Red Blood Cells # 0.0 Prothrombin Time 24.8 H Prothrombin Time Ratio 1.9 INR International Normalized Ratio 2.21 Activated Partial Thromboplast Time 52.2 H Sodium Level 134 L Potassium Level 3.2 L Chloride Level 114 H Carbon Dioxide Level 16 L Anion Gap 7 L Blood Urea Nitrogen 9 Creatinine 0.91 Glucose Level 147 # Calcium Level 7.9 L Magnesium Level 1.3 L Test 11/07/16 12:00 Bedside Glucose 191 Medications Medications Current Medications Ondansetron HCl (Zofran Inj) 4 mg Q6H PRN IV NAUSEA AND/OR VOMITING Last administered on 10/27/16 13:51; Admin Dose 4 MG; Start 10/25/16 at 11:00 Nitroglycerin (Nitroglycerin (Sl Tab) 0.4 Mg) 1 tab Q5M PRN SL CHEST PAIN; Start 10/25/16 at 11:00 Acetaminophen (Tylenol Tab) 650 mg Q6H PRN PO PAIN LEVEL 1-3 OR FEVER Last administered on 11/04/16 15:30; Admin Dose 650 MG; Start 10/25/16 at 11:00 Acetaminophen (Tylenol Supp) 650 mg Q4H PRN [place] PAIN LEVEL 1-3 OR FEVER; Start 10/25/16 at 11:00 Docusate Sodium (Colace) 100 mg Q12H PRN PO CONSTIPATION; Start 10/25/16 at 11: 00 Bisacodyl (Dulcolax Supp) 10 mg DAILY PRN [place] CONSTIPATION; Start 10/25/16 at 11: 00 Amiodarone HCl (Cordarone) 400 mg BID GTB Last administered on 11/01/16 10:22 ; Admin Dose 400 MG; Start 10/25/16 at 21:00 Ascorbic Acid (Vitamin C) 500 mg DAILY GTB Last administered on 11/07/16 09:32 ; Admin Dose 500 MG; Start 10/26/16 at 09:00 Chlorhexidine Gluconate (Peridex) 15 ml Q12 MM Last administered on 11/07/16 09:33; Admin Dose 15 ML; Start 10/25/16 at 21:00 Collagenase (Santyl) 1 applic DAILY TOP Last administered on 11/06/16 12:43; Admin Dose 1 APPLIC; Start 10/26/16 at 09:00 Ferrous Sulfate (Feosol Liquid Cup) 330 mg DAILY GTB Last administered on 09:32; Admin Dose 330 MG; Start 10/26/16 at 09:00 Multivitamins Therapeutic (Theragran) 1 tab DAILY GTB Last administered on 11/07 09:32; Admin Dose 1 TAB; Start 10/26/16 at 09:00 Lactobacillus Acidoph/Bulgaricus (Floranex) 1 tab BID PO Last administered on 09:32; Admin Dose 1 TAB; Start 10/25/16 at 21:00 Fenofibrate (Tricor) 145 mg DAILY PO Last administered on 11/07/16 09:33; Admin Dose 145 MG; Start 10/26/16 at 09:00 IV Flush (NS 10 ml) 10 ml PRN PRN IV IV PROTOCOL; Start 10/25/16 at 11:30 Atorvastatin Calcium (Lipitor) 20 mg HS PO Last administered on 11/06/16 21:54 ; Admin Dose 20 MG; Start 10/25/16 at 21:00 Miscellaneous Information 1 ea NOTE XX ; Start 10/26/16 at 09:30 Glucose (Glutose) 15 gm Q15M PRN PO DECREASED GLUCOSE; Start 10/26/16 at 09:30 Glucose (Glutose) 22.5 gm Q15M PRN PO DECREASED GLUCOSE; Start 10/26/16 at 09:30 Dextrose (D50w Syringe) 25 ml Q15M PRN IV DECREASED GLUCOSE Last administered on 11/04/16 07:38; Admin Dose 25 ML; Start 10/26/16 at 09:30 Dextrose (D50w Syringe) 50 ml Q15M PRN IV DECREASED GLUCOSE; Start 10/26/16 at 09:30 Glucagon (Glucagen) 1 mg Q15M PRN IM DECREASED GLUCOSE; Start 10/26/16 at 09:30 Glucose (Glutose) 15 gm Q15M PRN BUCCAL DECREASED GLUCOSE; Start 10/26/16 at 09: 30 Insulin Glargine (Lantus) 12 unit DAILY@20 SC Last administered on 10/30/16 21 :46; Admin Dose 12 UNIT; Start 10/26/16 at 20:00 Sodium Hypochlorite (Dakin'S (1/4 Strength)) 1 applic DAILY IRR Last administered on 11/06/16 12:44; Admin Dose 1 APPLIC; Start 10/27/16 at 09:00 Insulin Aspart (Novolog Insulin Pen) NOVOLOG *MILD* ALGORI... Q6 SC Last administered on 11/07/16 12:07; Admin Dose 2 UNIT; Start 10/29/16 at 12:00 Linezolid 600 mg 600 mg BID PO Last administered on 11/07/16 09:32; Admin Dose 600 MG; Start 10/30/16 at 21:00 Colistimethate Sodium/Sodium Chloride (Coly-Mycin/NS) 100 ml @ 200 mls/hr Q12 IVPB Last administered on 11/07/16 09:34; Admin Dose 200 MLS/HR; Start at 21:00 Non-Formulary Medication 10 ml QID GTB Last administered on 11/07/16 13:51; Admin Dose 10 ML; Start 10/31/16 at 17:00 Mupirocin 1 applic 1 applic BID TOP Last administered on 11/07/16 09:34; Admin Dose 1 APPLIC; Start 11/02/16 at 16:30 Metronidazole 100 ml @ 100 mls/hr Q8 IVPB Last administered on 11/07/16 13:51 ; Admin Dose 100 MLS/HR; Start 11/02/16 at 15:30 Sodium Bicarbonate/ Dextrose (Na Bicarb/D5W) 1,050 ml @ 80 mls/hr Q13H8M IV Last administered on 11/07/16 06:02; Admin Dose 80 MLS/HR; Start 11/06/16 at 10 :00 Lansoprazole (Prevacid) 30 mg BID@06,18 PO Last administered on 11/07/16 06:02 ; Admin Dose 30 MG; Start 11/06/16 at 18:00 RAYMON BETANCOURT MD Nov 07, 2016 17:21
--- NOTE | 2016-11-07 18:22 | PN ---
DATE: 11/07/2016 SUBJECTIVE: No acute events. The patient is lying comfortably in bed, nonverbal, noncommunicative WBC 9.6, no shift, no bands. BUN 9, creatinine 0.91. ANTIMICROBIALS: The patient remains on: 1. Flagyl. 2. Topical Bactroban to nares. 3. Zyvox. 4. Colistin. INDWELLINGS: Trach, PEG, Ferreira, rectal tube and PICC line placed on 10/25/2016. PHYSICAL EXAMINATION: GENERAL: This is a fragile, chronically ill-appearing, elderly man who is noncommunicative, in no distress. HEENT: Head atraumatic, normocephalic. Sclerae anicteric. Buccal mucosa dry. NECK: Supple. Tracheostomy present. CHEST: Rise symmetrical. Breath sounds diminished to bases. HEART: S1, S2. ABDOMEN: Distended, soft. Bowel tones present. EXTREMITIES: Without cyanosis. ASSESSMENT: 1. Sepsis, status post shock. 2. Ileus with dilatation of the cecum and transverse colon per CT of the abdomen, status post rectal tube placement, no volvulus per CT, gastroenterology on case. 4. Status post Proteus mirabilis bacteremia. 5. Status post Escherichia coli UTI. 6. Methicillin-resistant Staphylococcus aureus nares colonization. 7. Unstageable sacral decubitus, status post debridement on 11/01/2016. 8. History of cerebrovascular accident and hematuria. PLAN: The patient remains stable, covered with appropriate antimicrobials. Continue present care. Follow recommendations of consultants. Dictated By: ADITYA CALLAHAN UNIX ENGINEER for VEGA SCHULER/GENOVEVA Conf#: [id number] DID#: [id number]
--- NOTE | 2016-11-07 19:18 | CONS ---
Date/Time of Note Date/Time of Note DATE: 11/07/16 TIME: 19:17 Consultation Date/Type/Reason Admit Date/Time Oct 25, 2016 at 10:54 Initial Consult Date 10/25/16 Type of Consultation: renal Referring Provider: DILIP ARELLANO MD Exam/Review of Systems Vital Signs Vitals Vital Signs Date Time Temp Pulse Resp B/P Pulse Ox O2 Delivery O2 Flow Rate FiO2 11/07/16 17:10 99 21 97 30 11/07/16 14:57 97.9 99/55 11/03/16 23:47 Mechanical Ventilator Intake and Output 11/06/16 11/06/16 11/07/16 15:00 23:00 07:00 Intake Total 326 ml 810 ml 670 ml Output Total 300 ml 415 ml Balance 326 ml 510 ml 255 ml Exam Constitutional: No distress ENMT: mucosa pink and moist Respiratory: crackles/rales Cardiovascular: edema Gastrointestinal: soft Results Result Diagram: 11/07/16 0445 11/07/16 0445 Results 24 hrs Laboratory Tests Test 11/07/16 00:27 11/07/16 04:45 11/07/16 05:07 11/07/16 12:00 Bedside Glucose 149 160 191 White Blood Count 9.6 Red Blood Count 2.92 L Hemoglobin 7.9 L Hematocrit 26.0 L Mean Corpuscular Volume 89.0 Mean Corpuscular Hemoglobin 27.1 L Mean Corpuscular Hemoglobin Concent 30.4 L Red Cell Distribution Width 17.8 H Platelet Count 192 Mean Platelet Volume 11.9 H Neutrophils % 74.6 Lymphocytes % 16.5 Monocytes % 6.7 Eosinophils % 1.3 Basophils % 0.2 Nucleated Red Blood Cells % 0.0 Neutrophils # 7.1 Lymphocytes # 1.6 Monocytes # 0.6 Eosinophils # 0.1 Basophils # 0.0 Nucleated Red Blood Cells # 0.0 Prothrombin Time 24.8 H Prothrombin Time Ratio 1.9 INR International Normalized Ratio 2.21 Activated Partial Thromboplast Time 52.2 H Sodium Level 134 L Potassium Level 3.2 L Chloride Level 114 H Carbon Dioxide Level 16 L Anion Gap 7 L Blood Urea Nitrogen 9 Creatinine 0.91 Glucose Level 147 # Calcium Level 7.9 L Magnesium Level 1.3 L Test 11/07/16 17:08 Bedside Glucose 202 Medications Medications Current Medications Ondansetron HCl (Zofran Inj) 4 mg Q6H PRN IV NAUSEA AND/OR VOMITING Last administered on 10/27/16 13:51; Admin Dose 4 MG; Start 10/25/16 at 11:00 Nitroglycerin (Nitroglycerin (Sl Tab) 0.4 Mg) 1 tab Q5M PRN SL CHEST PAIN; Start 10/25/16 at 11:00 Acetaminophen (Tylenol Tab) 650 mg Q6H PRN PO PAIN LEVEL 1-3 OR FEVER Last administered on 11/04/16 15:30; Admin Dose 650 MG; Start 10/25/16 at 11:00 Acetaminophen (Tylenol Supp) 650 mg Q4H PRN [place] PAIN LEVEL 1-3 OR FEVER; Start 10/25/16 at 11:00 Docusate Sodium (Colace) 100 mg Q12H PRN PO CONSTIPATION; Start 10/25/16 at 11: 00 Bisacodyl (Dulcolax Supp) 10 mg DAILY PRN [place] CONSTIPATION; Start 10/25/16 at 11: 00 Amiodarone HCl (Cordarone) 400 mg BID GTB Last administered on 11/01/16 10:22 ; Admin Dose 400 MG; Start 10/25/16 at 21:00 Ascorbic Acid (Vitamin C) 500 mg DAILY GTB Last administered on 11/07/16 09:32 ; Admin Dose 500 MG; Start 10/26/16 at 09:00 Chlorhexidine Gluconate (Peridex) 15 ml Q12 MM Last administered on 11/07/16 09:33; Admin Dose 15 ML; Start 10/25/16 at 21:00 Collagenase (Santyl) 1 applic DAILY TOP Last administered on 11/06/16 12:43; Admin Dose 1 APPLIC; Start 10/26/16 at 09:00 Ferrous Sulfate (Feosol Liquid Cup) 330 mg DAILY GTB Last administered on 09:32; Admin Dose 330 MG; Start 10/26/16 at 09:00 Multivitamins Therapeutic (Theragran) 1 tab DAILY GTB Last administered on 11/07 09:32; Admin Dose 1 TAB; Start 10/26/16 at 09:00 Lactobacillus Acidoph/Bulgaricus (Floranex) 1 tab BID PO Last administered on 09:32; Admin Dose 1 TAB; Start 10/25/16 at 21:00 Fenofibrate (Tricor) 145 mg DAILY PO Last administered on 11/07/16 09:33; Admin Dose 145 MG; Start 10/26/16 at 09:00 IV Flush (NS 10 ml) 10 ml PRN PRN IV IV PROTOCOL; Start 10/25/16 at 11:30 Atorvastatin Calcium (Lipitor) 20 mg HS PO Last administered on 11/06/16 21:54 ; Admin Dose 20 MG; Start 10/25/16 at 21:00 Miscellaneous Information 1 ea NOTE XX ; Start 10/26/16 at 09:30 Glucose (Glutose) 15 gm Q15M PRN PO DECREASED GLUCOSE; Start 10/26/16 at 09:30 Glucose (Glutose) 22.5 gm Q15M PRN PO DECREASED GLUCOSE; Start 10/26/16 at 09:30 Dextrose (D50w Syringe) 25 ml Q15M PRN IV DECREASED GLUCOSE Last administered on 11/04/16 07:38; Admin Dose 25 ML; Start 10/26/16 at 09:30 Dextrose (D50w Syringe) 50 ml Q15M PRN IV DECREASED GLUCOSE; Start 10/26/16 at 09:30 Glucagon (Glucagen) 1 mg Q15M PRN IM DECREASED GLUCOSE; Start 10/26/16 at 09:30 Glucose (Glutose) 15 gm Q15M PRN BUCCAL DECREASED GLUCOSE; Start 10/26/16 at 09: 30 Insulin Glargine (Lantus) 12 unit DAILY@20 SC Last administered on 10/30/16 21 :46; Admin Dose 12 UNIT; Start 10/26/16 at 20:00 Sodium Hypochlorite (Dakin'S (1/4 Strength)) 1 applic DAILY IRR Last administered on 11/06/16 12:44; Admin Dose 1 APPLIC; Start 10/27/16 at 09:00 Insulin Aspart (Novolog Insulin Pen) NOVOLOG *MILD* ALGORI... Q6 SC Last administered on 11/07/16 17:43; Admin Dose 2 UNIT; Start 10/29/16 at 12:00 Linezolid 600 mg 600 mg BID PO Last administered on 11/07/16 09:32; Admin Dose 600 MG; Start 10/30/16 at 21:00 Colistimethate Sodium/Sodium Chloride (Coly-Mycin/NS) 100 ml @ 200 mls/hr Q12 IVPB Last administered on 11/07/16 09:34; Admin Dose 200 MLS/HR; Start at 21:00 Non-Formulary Medication 10 ml QID GTB Last administered on 11/07/16 17:34; Admin Dose 10 ML; Start 10/31/16 at 17:00 Mupirocin 1 applic 1 applic BID TOP Last administered on 11/07/16 09:34; Admin Dose 1 APPLIC; Start 11/02/16 at 16:30 Metronidazole 100 ml @ 100 mls/hr Q8 IVPB Last administered on 11/07/16 13:51 ; Admin Dose 100 MLS/HR; Start 11/02/16 at 15:30 Sodium Bicarbonate/ Dextrose (Na Bicarb/D5W) 1,050 ml @ 80 mls/hr Q13H8M IV Last administered on 11/07/16 06:02; Admin Dose 80 MLS/HR; Start 11/06/16 at 10 :00 Lansoprazole (Prevacid) 30 mg BID@06,18 PO Last administered on 11/07/16 17:34 ; Admin Dose 30 MG; Start 11/06/16 at 18:00 ODALIS REYNA MD Nov 07, 2016 19:18
--- NOTE | 2016-11-07 19:51 | CONS ---
Date/Time of Note Date/Time of Note DATE: 11/07/16 TIME: 19:49 Assessment/Plan Assessment/Plan Additional Assessment/Plan 76 yo Male with 1) S/p Septic Shock 2nd to UTI 2) Severe Anemia 3) THEO on likely CKD, Pre-Renal Azotemia, Improving 4) Hyperkalemia- Resolved 5) Metabolic Acidosis 6) VDRF, S/p Tracheostomy 7) Dysphagia, S/p PEG 8) S/p wound debridement 9) Hyponatremia 10) Hypmagnesemia 11) Hypokalemia Will Cont to monitor UO, Electrolytes and renal function Supplement K and Mg as needed, Repeat labs in am. Consultation Date/Type/Reason Admit Date/Time Oct 25, 2016 at 10:54 Initial Consult Date 10/25/16 Type of Consultation: renal Referring Provider: DILIP ARELLANO MD Exam/Review of Systems Vital Signs Vitals Vital Signs Date Time Temp Pulse Resp B/P Pulse Ox O2 Delivery O2 Flow Rate FiO2 11/07/16 19:25 97 20 98 30 11/07/16 14:57 97.9 99/55 11/03/16 23:47 Mechanical Ventilator Intake and Output 11/06/16 11/06/16 11/07/16 15:00 23:00 07:00 Intake Total 326 ml 810 ml 670 ml Output Total 300 ml 415 ml Balance 326 ml 510 ml 255 ml Results Result Diagram: 11/07/16 0445 11/07/16 0445 Results 24 hrs Laboratory Tests Test 11/07/16 00:27 11/07/16 04:45 11/07/16 05:07 11/07/16 12:00 Bedside Glucose 149 160 191 White Blood Count 9.6 Red Blood Count 2.92 L Hemoglobin 7.9 L Hematocrit 26.0 L Mean Corpuscular Volume 89.0 Mean Corpuscular Hemoglobin 27.1 L Mean Corpuscular Hemoglobin Concent 30.4 L Red Cell Distribution Width 17.8 H Platelet Count 192 Mean Platelet Volume 11.9 H Neutrophils % 74.6 Lymphocytes % 16.5 Monocytes % 6.7 Eosinophils % 1.3 Basophils % 0.2 Nucleated Red Blood Cells % 0.0 Neutrophils # 7.1 Lymphocytes # 1.6 Monocytes # 0.6 Eosinophils # 0.1 Basophils # 0.0 Nucleated Red Blood Cells # 0.0 Prothrombin Time 24.8 H Prothrombin Time Ratio 1.9 INR International Normalized Ratio 2.21 Activated Partial Thromboplast Time 52.2 H Sodium Level 134 L Potassium Level 3.2 L Chloride Level 114 H Carbon Dioxide Level 16 L Anion Gap 7 L Blood Urea Nitrogen 9 Creatinine 0.91 Glucose Level 147 # Calcium Level 7.9 L Magnesium Level 1.3 L Test 11/07/16 17:08 Bedside Glucose 202 Medications Medications Current Medications Ondansetron HCl (Zofran Inj) 4 mg Q6H PRN IV NAUSEA AND/OR VOMITING Last administered on 10/27/16 13:51; Admin Dose 4 MG; Start 10/25/16 at 11:00 Nitroglycerin (Nitroglycerin (Sl Tab) 0.4 Mg) 1 tab Q5M PRN SL CHEST PAIN; Start 10/25/16 at 11:00 Acetaminophen (Tylenol Tab) 650 mg Q6H PRN PO PAIN LEVEL 1-3 OR FEVER Last administered on 11/04/16 15:30; Admin Dose 650 MG; Start 10/25/16 at 11:00 Acetaminophen (Tylenol Supp) 650 mg Q4H PRN [place] PAIN LEVEL 1-3 OR FEVER; Start 10/25/16 at 11:00 Docusate Sodium (Colace) 100 mg Q12H PRN PO CONSTIPATION; Start 10/25/16 at 11: 00 Bisacodyl (Dulcolax Supp) 10 mg DAILY PRN [place] CONSTIPATION; Start 10/25/16 at 11: 00 Amiodarone HCl (Cordarone) 400 mg BID GTB Last administered on 11/01/16 10:22 ; Admin Dose 400 MG; Start 10/25/16 at 21:00 Ascorbic Acid (Vitamin C) 500 mg DAILY GTB Last administered on 11/07/16 09:32 ; Admin Dose 500 MG; Start 10/26/16 at 09:00 Chlorhexidine Gluconate (Peridex) 15 ml Q12 MM Last administered on 11/07/16 09:33; Admin Dose 15 ML; Start 10/25/16 at 21:00 Collagenase (Santyl) 1 applic DAILY TOP Last administered on 11/06/16 12:43; Admin Dose 1 APPLIC; Start 10/26/16 at 09:00 Ferrous Sulfate (Feosol Liquid Cup) 330 mg DAILY GTB Last administered on 09:32; Admin Dose 330 MG; Start 10/26/16 at 09:00 Multivitamins Therapeutic (Theragran) 1 tab DAILY GTB Last administered on 11/07 09:32; Admin Dose 1 TAB; Start 10/26/16 at 09:00 Lactobacillus Acidoph/Bulgaricus (Floranex) 1 tab BID PO Last administered on 09:32; Admin Dose 1 TAB; Start 10/25/16 at 21:00 Fenofibrate (Tricor) 145 mg DAILY PO Last administered on 11/07/16 09:33; Admin Dose 145 MG; Start 10/26/16 at 09:00 IV Flush (NS 10 ml) 10 ml PRN PRN IV IV PROTOCOL; Start 10/25/16 at 11:30 Atorvastatin Calcium (Lipitor) 20 mg HS PO Last administered on 11/06/16 21:54 ; Admin Dose 20 MG; Start 10/25/16 at 21:00 Miscellaneous Information 1 ea NOTE XX ; Start 10/26/16 at 09:30 Glucose (Glutose) 15 gm Q15M PRN PO DECREASED GLUCOSE; Start 10/26/16 at 09:30 Glucose (Glutose) 22.5 gm Q15M PRN PO DECREASED GLUCOSE; Start 10/26/16 at 09:30 Dextrose (D50w Syringe) 25 ml Q15M PRN IV DECREASED GLUCOSE Last administered on 11/04/16 07:38; Admin Dose 25 ML; Start 10/26/16 at 09:30 Dextrose (D50w Syringe) 50 ml Q15M PRN IV DECREASED GLUCOSE; Start 10/26/16 at 09:30 Glucagon (Glucagen) 1 mg Q15M PRN IM DECREASED GLUCOSE; Start 10/26/16 at 09:30 Glucose (Glutose) 15 gm Q15M PRN BUCCAL DECREASED GLUCOSE; Start 10/26/16 at 09: 30 Insulin Glargine (Lantus) 12 unit DAILY@20 SC Last administered on 10/30/16 21 :46; Admin Dose 12 UNIT; Start 10/26/16 at 20:00 Sodium Hypochlorite (Dakin'S (1/4 Strength)) 1 applic DAILY IRR Last administered on 11/06/16 12:44; Admin Dose 1 APPLIC; Start 10/27/16 at 09:00 Insulin Aspart (Novolog Insulin Pen) NOVOLOG *MILD* ALGORI... Q6 SC Last administered on 11/07/16 17:43; Admin Dose 2 UNIT; Start 10/29/16 at 12:00 Linezolid 600 mg 600 mg BID PO Last administered on 11/07/16 09:32; Admin Dose 600 MG; Start 10/30/16 at 21:00 Colistimethate Sodium/Sodium Chloride (Coly-Mycin/NS) 100 ml @ 200 mls/hr Q12 IVPB Last administered on 11/07/16 09:34; Admin Dose 200 MLS/HR; Start at 21:00 Non-Formulary Medication 10 ml QID GTB Last administered on 11/07/16 17:34; Admin Dose 10 ML; Start 10/31/16 at 17:00 Mupirocin 1 applic 1 applic BID TOP Last administered on 11/07/16 09:34; Admin Dose 1 APPLIC; Start 11/02/16 at 16:30 Metronidazole 100 ml @ 100 mls/hr Q8 IVPB Last administered on 11/07/16 13:51 ; Admin Dose 100 MLS/HR; Start 11/02/16 at 15:30 Sodium Bicarbonate/ Dextrose (Na Bicarb/D5W) 1,050 ml @ 80 mls/hr Q13H8M IV Last administered on 11/07/16 06:02; Admin Dose 80 MLS/HR; Start 11/06/16 at 10 :00 Lansoprazole (Prevacid) 30 mg BID@06,18 PO Last administered on 11/07/16 17:34 ; Admin Dose 30 MG; Start 11/06/16 at 18:00 ODALIS REYNA MD Nov 07, 2016 19:51
[2016-11-07] MEDS ORDERED: SODIUM BICARBONATE (IV ADD) 100 MEQ in SOD CHLORIDE 0.45% 900 ML IV SCH (20:00)
[2016-11-07] MEDS: ATORVASTATIN 20 MG TAB PO SCH (20:37)
[2016-11-07] MEDS: INSULIN GLARGINE [LANtus] 3 ML PEN SC SCH (21:01)
[2016-11-07] MEDS: SODIUM BICARBONATE (IV ADD) 100 MEQ in SOD CHLORIDE 0.45% 900 ML IV SCH (22:24)
--- NOTE | 2016-11-07 22:50 | PN ---
Date/Time of Note Date/Time of Note DATE: 11/07/16 TIME: 22:49 Assessment/Plan VTE Prophylaxis VTE Prophylaxis Intervention: SCD's Lines/Catheters [facility] PICC Line Central line still needed: No Urinary Cath still in place: Yes Reason Cath still needed: urinary retention Assessment/Plan Assessment/Plan Septic shock Acute blood loss anemia Elevated troponin likely secondary to above Respiratory failure Paroxysmal atrial fibrillation, currently sinus rhythm Paroxysmal atrial tachycardia Preserved ejection fraction Acute kidney injury Hypokalemia -Blood pressure trend improved, IV fluids as per nephrology. Continue to hold any antihypertensives at the current time. No anticoagulation given history of recurrent hematuria - possibly in the future -rx kcl due to hypokalemia - renal service involved Subjective 24 Hr Interval Summary Free Text/Dictation the patient iwth no cahgne Exam/Review of Systems Vital Signs Vitals Vital Signs Date Time Temp Pulse Resp B/P Pulse Ox O2 Delivery O2 Flow Rate FiO2 11/07/16 21:24 97.9 100 20 100/57 96 11/07/16 20:53 30 11/03/16 23:47 Mechanical Ventilator Intake and Output 11/06/16 11/06/16 11/07/16 15:00 23:00 07:00 Intake Total 326 ml 810 ml 670 ml Output Total 300 ml 415 ml Balance 326 ml 510 ml 255 ml Results Result Diagram: 11/07/16 0445 11/07/16 0445 Results 24 hrs Laboratory Tests Test 11/07/16 00:27 11/07/16 04:45 11/07/16 05:07 11/07/16 12:00 Bedside Glucose 149 160 191 White Blood Count 9.6 Red Blood Count 2.92 L Hemoglobin 7.9 L Hematocrit 26.0 L Mean Corpuscular Volume 89.0 Mean Corpuscular Hemoglobin 27.1 L Mean Corpuscular Hemoglobin Concent 30.4 L Red Cell Distribution Width 17.8 H Platelet Count 192 Mean Platelet Volume 11.9 H Neutrophils % 74.6 Lymphocytes % 16.5 Monocytes % 6.7 Eosinophils % 1.3 Basophils % 0.2 Nucleated Red Blood Cells % 0.0 Neutrophils # 7.1 Lymphocytes # 1.6 Monocytes # 0.6 Eosinophils # 0.1 Basophils # 0.0 Nucleated Red Blood Cells # 0.0 Prothrombin Time 24.8 H Prothrombin Time Ratio 1.9 INR International Normalized Ratio 2.21 Activated Partial Thromboplast Time 52.2 H Sodium Level 134 L Potassium Level 3.2 L Chloride Level 114 H Carbon Dioxide Level 16 L Anion Gap 7 L Blood Urea Nitrogen 9 Creatinine 0.91 Glucose Level 147 # Calcium Level 7.9 L Magnesium Level 1.3 L Test 11/07/16 17:08 11/07/16 20:52 Bedside Glucose 202 187 Medications Medications Current Medications Ondansetron HCl (Zofran Inj) 4 mg Q6H PRN IV NAUSEA AND/OR VOMITING Last administered on 10/27/16 13:51; Admin Dose 4 MG; Start 10/25/16 at 11:00 Nitroglycerin (Nitroglycerin (Sl Tab) 0.4 Mg) 1 tab Q5M PRN SL CHEST PAIN; Start 10/25/16 at 11:00 Acetaminophen (Tylenol Tab) 650 mg Q6H PRN PO PAIN LEVEL 1-3 OR FEVER Last administered on 11/04/16 15:30; Admin Dose 650 MG; Start 10/25/16 at 11:00 Acetaminophen (Tylenol Supp) 650 mg Q4H PRN [place] PAIN LEVEL 1-3 OR FEVER; Start 10/25/16 at 11:00 Docusate Sodium (Colace) 100 mg Q12H PRN PO CONSTIPATION; Start 10/25/16 at 11: 00 Bisacodyl (Dulcolax Supp) 10 mg DAILY PRN [place] CONSTIPATION; Start 10/25/16 at 11: 00 Amiodarone HCl (Cordarone) 400 mg BID GTB Last administered on 11/01/16 10:22 ; Admin Dose 400 MG; Start 10/25/16 at 21:00 Ascorbic Acid (Vitamin C) 500 mg DAILY GTB Last administered on 11/07/16 09:32 ; Admin Dose 500 MG; Start 10/26/16 at 09:00 Chlorhexidine Gluconate (Peridex) 15 ml Q12 MM Last administered on 11/07/16 20:37; Admin Dose 15 ML; Start 10/25/16 at 21:00 Collagenase (Santyl) 1 applic DAILY TOP Last administered on 11/06/16 12:43; Admin Dose 1 APPLIC; Start 10/26/16 at 09:00 Ferrous Sulfate (Feosol Liquid Cup) 330 mg DAILY GTB Last administered on 09:32; Admin Dose 330 MG; Start 10/26/16 at 09:00 Multivitamins Therapeutic (Theragran) 1 tab DAILY GTB Last administered on 11/07 09:32; Admin Dose 1 TAB; Start 10/26/16 at 09:00 Lactobacillus Acidoph/Bulgaricus (Floranex) 1 tab BID PO Last administered on 20:37; Admin Dose 1 TAB; Start 10/25/16 at 21:00 Fenofibrate (Tricor) 145 mg DAILY PO Last administered on 11/07/16 09:33; Admin Dose 145 MG; Start 10/26/16 at 09:00 IV Flush (NS 10 ml) 10 ml PRN PRN IV IV PROTOCOL; Start 10/25/16 at 11:30 Atorvastatin Calcium (Lipitor) 20 mg HS PO Last administered on 11/07/16 20:37 ; Admin Dose 20 MG; Start 10/25/16 at 21:00 Miscellaneous Information 1 ea NOTE XX ; Start 10/26/16 at 09:30 Glucose (Glutose) 15 gm Q15M PRN PO DECREASED GLUCOSE; Start 10/26/16 at 09:30 Glucose (Glutose) 22.5 gm Q15M PRN PO DECREASED GLUCOSE; Start 10/26/16 at 09:30 Dextrose (D50w Syringe) 25 ml Q15M PRN IV DECREASED GLUCOSE Last administered on 11/04/16 07:38; Admin Dose 25 ML; Start 10/26/16 at 09:30 Dextrose (D50w Syringe) 50 ml Q15M PRN IV DECREASED GLUCOSE; Start 10/26/16 at 09:30 Glucagon (Glucagen) 1 mg Q15M PRN IM DECREASED GLUCOSE; Start 10/26/16 at 09:30 Glucose (Glutose) 15 gm Q15M PRN BUCCAL DECREASED GLUCOSE; Start 10/26/16 at 09: 30 Insulin Glargine (Lantus) 12 unit DAILY@20 SC Last administered on 11/07/16 21 :01; Admin Dose 12 UNIT; Start 10/26/16 at 20:00 Sodium Hypochlorite (Dakin'S (1/4 Strength)) 1 applic DAILY IRR Last administered on 11/06/16 12:44; Admin Dose 1 APPLIC; Start 10/27/16 at 09:00 Insulin Aspart (Novolog Insulin Pen) NOVOLOG *MILD* ALGORI... Q6 SC Last administered on 11/07/16 17:43; Admin Dose 2 UNIT; Start 10/29/16 at 12:00 Linezolid 600 mg 600 mg BID PO Last administered on 11/07/16 20:37; Admin Dose 600 MG; Start 10/30/16 at 21:00 Colistimethate Sodium/Sodium Chloride (Coly-Mycin/NS) 100 ml @ 200 mls/hr Q12 IVPB Last administered on 11/07/16 22:24; Admin Dose 200 MLS/HR; Start at 21:00 Non-Formulary Medication 10 ml QID GTB Last administered on 11/07/16 20:37; Admin Dose 10 ML; Start 10/31/16 at 17:00 Mupirocin 1 applic 1 applic BID TOP Last administered on 11/07/16 21:03; Admin Dose 1 APPLIC; Start 11/02/16 at 16:30 Metronidazole (Flagyl 500 Mg (Pmx)) 100 ml @ 100 mls/hr Q8 IVPB Last administered on 11/07/16 22:32; Admin Dose 100 MLS/HR; Start 11/02/16 at 15:30 Lansoprazole 30 mg 30 mg BID@06,18 PO Last administered on 11/07/16 17:34; Admin Dose 30 MG; Start 11/06/16 at 18:00 Sodium Bicarbonate/ Sodium Chloride (Na Bicarb/1/2 NS) 1,000 ml @ 40 mls/hr Q24H IV Last administered on 11/07/16 22:24; Admin Dose 40 MLS/HR; Start 11/07 at 21:00 JORGE CAZARES MD Nov 07, 2016 22:50
--- NOTE | 2016-11-07 23:51 | PN ---
DATE: 11/07/2016 SUBJECTIVE: Gross hematuria that has cleared. The patient is on a respirator and has a G-tube. OBJECTIVE: VITAL SIGNS: His temperature is 97.9, blood pressure 99/55, pulse is 98, respiration 19. ABDOMEN: A little obese, but there is no mass palpable. GENITOURINARY: Ferreira catheter is draining clear yellow urine. LABORATORY DATA: CBC shows a white count of 9.6, hemoglobin 7.9, hematocrit 26.0, platelet count is 192,000. The BUN is 9, creatinine 0.91. The electrolytes, sodium 134, potassium 3.2, chloride 114 , CO2 of 16. IMPRESSION: From a urological standpoint, gross hematuria that has cleared. PLAN: To keep the Ferreira catheter in and I will change the Ferreira catheter before [facility] goes back to the [facility]. Dictated By: TANA EMERSON MD BB/NTS Conf#: [id number] DID#: [id number] CC: DILIP ARELLANO MD;*End*
[2016-11-08] VITALS (24 sets, daily range): BP systolic 74–97; BP diastolic 50–55; PULSE 92–100; RESP 13–20
[2016-11-08] MEDS: INSULIN ASPART [NOVOLOG] 3 ML PEN SC SCH ×4 (02:37→18:00)
[2016-11-08] MEDS: LANSOPRAZOLE 30 MG CAP PO SCH ×2 (05:39→17:55)
[2016-11-08] MEDS: metroNIDAZOLE 500 MG/NS (PMX) 100 ML IVPB SCH ×3 (05:39→21:05)
[2016-11-08 07:48] LABS: INR 2.26; PROTIME 25.2 Sec (12.2-14.2)
[2016-11-08 07:49] LABS: PARTIAL THROMBOPLASTIN TIME 52.5 Sec (25.0-35.0)
[2016-11-08 07:50] LABS: POTASSIUM 3.1 mmol/L (3.5-5.1)
[2016-11-08 07:53] LABS: CREATININE 0.99 mg/dl (0.61-1.24)
[2016-11-08 07:54] LABS: CALCIUM 8.3 mg/dl (8.4-10.2)
[2016-11-08 08:12] LABS: PHOSPHORUS 3.2 mg/dl (2.5-4.9)
[2016-11-08] MEDS: AMIODARONE 200 MG TAB GTB SCH ×2 (09:00→20:52)
[2016-11-08] MEDS: FERROUS SULFATE 60 MG/ML 5ML CUP GTB SCH (09:31)
[2016-11-08] MEDS: CHLORHEXIDINE GLUCONATE 15 ML UD CUP MM SCH ×2 (09:31→20:50)
[2016-11-08] MEDS: MUPIROCIN 2% 22 GM OINT TOP SCH ×2 (09:31→20:55)
[2016-11-08] MEDS: SULFASALAZINE GTB SCH ×4 (09:31→20:50)
[2016-11-08] MEDS: LACTOBACILLUS CHEW TAB PO SCH ×2 (09:32→20:50)
[2016-11-08] MEDS: ZYVOX 600 MG TAB PO SCH ×2 (09:32→20:50)
[2016-11-08] MEDS: MULTIVITAMINS THERAPEUTIC TAB GTB SCH (09:32)
[2016-11-08] MEDS: FENOFIBRATE 145 MG TAB PO SCH (09:32)
[2016-11-08] MEDS: ASCORBIC ACID 500 MG TAB GTB SCH (09:32)
[2016-11-08] MEDS: COLLAGENASE 30 GM TUBE TOP SCH (09:33)
[2016-11-08] MEDS: SODIUM HYPOCHLORITE 0.125% 473 ML BTL IRR SCH (09:35)
[2016-11-08] MEDS: COLISTIMETHATE 75 MG in SOD CHLORIDE 0.9% 100 ML IVPB SCH ×2 (09:51→20:50)
--- NOTE | 2016-11-08 11:47 | PN ---
Date/Time of Note Date/Time of Note DATE: 11/08/16 TIME: 11:43 Assessment/Plan VTE Prophylaxis VTE Prophylaxis Intervention: SCD's Lines/Catheters IV [facility]atheter Type (from [facility]): PICC Line Central line still needed: Yes (IV abx, Bicarbonate drip ) Urinary Cath still in place: Yes Reason Cath still needed: urinary retention Assessment/Plan Assessment/Plan 1. S/p Septic shock 2/2 urinary tract infection, Off Pressors now, ID following 2. Ventilator-dependent respiratory failure. Continue vent management by turner in. 3. Non-ST myocardial infarction with elevated troponin, likely demand ischemia secondary to anemia. 4. Severe symptomatic anemia due to lower Gi bleeding s/p 2 U PRBC transfusion during this hospitalization- s/p EGD 10/27/2016 with finding of gastrostomy tube in the body of the stomach.Otherwise, normal esophagogastroduodenoscopy with no bleeding site identified s/p 10/31/2016 Colonoscopy and finding of an 8 mm ulcer in the proximal descending colon & A 4 cm ulcer in the cecum with Large internal hemorrhoids. 5. THEO due to ATN from sepsis and prerenal azotemia - stable cr 7. Diabetic mellitus . Place the patient on Lantus, continue insulin sliding scale. 8. History of essential hypertension. 9. Dyslipidemia, on statin. 10. Sacral decubitus, continue wound care, status post surgical debridement on 11/01/2016, continue postop care 12. Hematuria, urology has been consulted, resolved 13. PEG tube dysfunction, GI on case 14. Hypokalemia, Hypomagnesemia - pt is having interstitial defect due to IV colistin, will replace electrolytes, Continue Bicarbonate drip for low HCo3- Nephrology /Patricia has been following patient KCl 20mEQ IV x 1 HCo3 still low, switched from D5W to 1/2 NS with sodium bicarbonate DVT prophylaxis; SCD, no Heparin/Lovenox due to GI bleeding CONDITION: Guarded possible transfer to [facility] if ok with Nephrology and Pulmonary Subjective 24 Hr Interval Summary Free Text/Dictation pt stable, HCO3 still low but on bicarbonate drip, switched from D5W to 1/2 NS with Sodium bicarbonate, pt non verbal Exam/Review of Systems Vital Signs Vitals Vital Signs Date Time Temp Pulse Resp B/P Pulse Ox O2 Delivery O2 Flow Rate FiO2 11/08/16 11:22 98.4 96 19 97/50 100 11/08/16 05:58 30 Intake and Output 11/07/16 11/07/16 11/08/16 15:00 23:00 07:00 Intake Total 200 ml 1515 ml Output Total 300 ml Balance 200 ml 1215 ml Exam General: The patient is cachectic, Not in acute distress. unresponsive HEENT: Atraumatic, normocephalic. The pupils are equal and round . Neck: Tracheostomy in place Chest: Normal expansion of the thorax during inspiration Lungs: Bilateral Coarse BS + Heart: Normal S1-S2, Regular rhythm and rate. Abdomen: Soft , nontender, nondistended , bowel sounds are present. + PEG tube in place Extremities: Normal to inspection, no edema no cyanosis Results Result Diagram: 11/07/16 0445 11/08/16 0650 Results 24 hrs Laboratory Tests Test 11/07/16 12:00 11/07/16 17:08 11/07/16 20:52 11/08/16 02:26 Bedside Glucose 191 202 187 177 Test 11/08/16 05:36 11/08/16 06:50 Bedside Glucose 152 Prothrombin Time 25.2 H Prothrombin Time Ratio 2.0 INR International Normalized Ratio 2.26 Activated Partial Thromboplast Time 52.5 H Sodium Level 135 Potassium Level 3.1 L Chloride Level 108 Carbon Dioxide Level 17 L Anion Gap 13 Blood Urea Nitrogen 11 Creatinine 0.99 Glucose Level 143 Calcium Level 8.3 L Phosphorus Level 3.2 Magnesium Level 2.0 Medications Medications Current Medications Ondansetron HCl (Zofran Inj) 4 mg Q6H PRN IV NAUSEA AND/OR VOMITING Last administered on 10/27/16 13:51; Admin Dose 4 MG; Start 10/25/16 at 11:00 Nitroglycerin (Nitroglycerin (Sl Tab) 0.4 Mg) 1 tab Q5M PRN SL CHEST PAIN; Start 10/25/16 at 11:00 Acetaminophen (Tylenol Tab) 650 mg Q6H PRN PO PAIN LEVEL 1-3 OR FEVER Last administered on 11/04/16 15:30; Admin Dose 650 MG; Start 10/25/16 at 11:00 Acetaminophen (Tylenol Supp) 650 mg Q4H PRN CO PAIN LEVEL 1-3 OR FEVER; Start 10/25/16 at 11:00 Docusate Sodium (Colace) 100 mg Q12H PRN PO CONSTIPATION; Start 10/25/16 at 11: 00 Bisacodyl (Dulcolax Supp) 10 mg DAILY PRN CO CONSTIPATION; Start 10/25/16 at 11: 00 Amiodarone HCl (Cordarone) 400 mg BID GTB Last administered on 11/01/16 10:22 ; Admin Dose 400 MG; Start 10/25/16 at 21:00 Ascorbic Acid (Vitamin C) 500 mg DAILY GTB Last administered on 11/08/16 09:32 ; Admin Dose 500 MG; Start 10/26/16 at 09:00 Chlorhexidine Gluconate (Peridex) 15 ml Q12 MM Last administered on 11/08/16 09:31; Admin Dose 15 ML; Start 10/25/16 at 21:00 Collagenase (Santyl) 1 applic DAILY TOP Last administered on 11/08/16 09:33; Admin Dose 1 APPLIC; Start 10/26/16 at 09:00 Ferrous Sulfate (Feosol Liquid Cup) 330 mg DAILY GTB Last administered on 09:31; Admin Dose 330 MG; Start 10/26/16 at 09:00 Multivitamins Therapeutic (Theragran) 1 tab DAILY GTB Last administered on 11/08 09:32; Admin Dose 1 TAB; Start 10/26/16 at 09:00 Lactobacillus Acidoph/Bulgaricus (Floranex) 1 tab BID PO Last administered on 09:32; Admin Dose 1 TAB; Start 10/25/16 at 21:00 Fenofibrate (Tricor) 145 mg DAILY PO Last administered on 11/08/16 09:32; Admin Dose 145 MG; Start 10/26/16 at 09:00 IV Flush (NS 10 ml) 10 ml PRN PRN IV IV PROTOCOL; Start 10/25/16 at 11:30 Atorvastatin Calcium (Lipitor) 20 mg HS PO Last administered on 11/07/16 20:37 ; Admin Dose 20 MG; Start 10/25/16 at 21:00 Miscellaneous Information 1 ea NOTE XX ; Start 10/26/16 at 09:30 Glucose (Glutose) 15 gm Q15M PRN PO DECREASED GLUCOSE; Start 10/26/16 at 09:30 Glucose (Glutose) 22.5 gm Q15M PRN PO DECREASED GLUCOSE; Start 10/26/16 at 09:30 Dextrose (D50w Syringe) 25 ml Q15M PRN IV DECREASED GLUCOSE Last administered on 11/04/16 07:38; Admin Dose 25 ML; Start 10/26/16 at 09:30 Dextrose (D50w Syringe) 50 ml Q15M PRN IV DECREASED GLUCOSE; Start 10/26/16 at 09:30 Glucagon (Glucagen) 1 mg Q15M PRN IM DECREASED GLUCOSE; Start 10/26/16 at 09:30 Glucose (Glutose) 15 gm Q15M PRN BUCCAL DECREASED GLUCOSE; Start 10/26/16 at 09: 30 Insulin Glargine (Lantus) 12 unit DAILY@20 SC Last administered on 11/07/16 21 :01; Admin Dose 12 UNIT; Start 10/26/16 at 20:00 Sodium Hypochlorite (Dakin'S (1/4 Strength)) 1 applic DAILY IRR Last administered on 11/08/16 09:35; Admin Dose 1 APPLIC; Start 10/27/16 at 09:00 Insulin Aspart (Novolog Insulin Pen) NOVOLOG *MILD* ALGORI... Q6 SC Last administered on 11/08/16 05:40; Admin Dose 1 UNIT; Start 10/29/16 at 12:00 Linezolid 600 mg 600 mg BID PO Last administered on 11/08/16 09:32; Admin Dose 600 MG; Start 10/30/16 at 21:00 Colistimethate Sodium/Sodium Chloride (Coly-Mycin/NS) 100 ml @ 200 mls/hr Q12 IVPB Last administered on 11/08/16 09:51; Admin Dose 200 MLS/HR; Start at 21:00 Non-Formulary Medication 10 ml QID GTB Last administered on 11/08/16 09:31; Admin Dose 10 ML; Start 10/31/16 at 17:00 Mupirocin 1 applic 1 applic BID TOP Last administered on 11/08/16 09:31; Admin Dose 1 APPLIC; Start 11/02/16 at 16:30 Metronidazole (Flagyl 500 Mg (Pmx)) 100 ml @ 100 mls/hr Q8 IVPB Last administered on 11/08/16 05:39; Admin Dose 100 MLS/HR; Start 11/02/16 at 15:30 Lansoprazole 30 mg 30 mg BID@06,18 PO Last administered on 11/08/16 05:39; Admin Dose 30 MG; Start 11/06/16 at 18:00 Sodium Bicarbonate/ Sodium Chloride (Na Bicarb/1/2 NS) 1,000 ml @ 40 mls/hr Q24H IV Last administered on 11/07/16 22:24; Admin Dose 40 MLS/HR; Start 11/07 at 21:00 DAO PÉREZ MD Nov 08, 2016 11:47
--- NOTE | 2016-11-08 11:48 | PDOCDIS ---
Discharge Instructions CONDITION Patient Condition: Good HOME CARE INSTRUCTIONS: Special Diet: GTF ACTIVITY: Activity Restrictions: Slowly Increase Activity Rest between Activity Avoid heavy lifting Avoid Heavy Housework FOLLOW UP/APPOINTMENTS Appointments follow up with /Yuly at [place], pt will be followed up by nephrology /jennifer over there DAO PÉREZ MD Nov 08, 2016 11:48
[2016-11-08] MEDS ORDERED: POTASSIUM CHLORIDE 20 MEQ in SOD CHLORIDE 0.9% 100 ML IVPB ONE (12:00)
--- NOTE | 2016-11-08 12:14 | CONS ---
Date/Time of Note Date/Time of Note DATE: 11/08/16 TIME: 12:12 Assessment/Plan Assessment/Plan Additional Assessment/Plan Ventilator settings; AC of 12, tidal volume 550, PEEP of 5, 30% FiO2. Assessment recommendations; 1. Patient admitted for sepsis due to UTI and sacral decubitus ulcer currently on broad-spectrum antibiotic coverage. 2. Advanced multi-infarct dementia. 3. Chronic respiratory failure. 4. History of diabetes and anemia. Continue current treatment. Consultation Date/Type/Reason Admit Date/Time Oct 25, 2016 at 10:54 Initial Consult Date 10/25/16 Type of Consultation: Pulmonary Referring Provider: DILIP ARELLANO MD 24 HR Interval Summary Free Text/Dictation Patient condition is stable. Remains unresponsive. Has remained hemodynamically stable. General exam; elderly male, on ventilator via tracheostomy currently in no distress. Exam/Review of Systems Vital Signs Vitals Vital Signs Date Time Temp Pulse Resp B/P Pulse Ox O2 Delivery O2 Flow Rate FiO2 11/08/16 11:22 98.4 96 19 97/50 100 11/08/16 05:58 30 Intake and Output 11/07/16 11/07/16 11/08/16 15:00 23:00 07:00 Intake Total 200 ml 1515 ml Output Total 300 ml Balance 200 ml 1215 ml Exam HEENT exam is; supple neck, tracheostomy in place. No neck masses. No thyromegaly. No neck bruits. Pupils are small bilaterally. Chest examination NM: Diminished but clear breath sound bilaterally. S1-S2 audible, no murmurs. Regular rhythm. Abdomen exam is; soft, G-tube in place. No organomegaly. Bowel sounds audible. Extremity exam is; no peripheral edema. Patient has contractures involving all 4 extremities. 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 Results Result Diagram: 11/07/16 0445 11/08/16 0650 Results 24 hrs Laboratory Tests Test 11/07/16 17:08 11/07/16 20:52 11/08/16 02:26 11/08/16 05:36 Bedside Glucose 202 187 177 152 Test 11/08/16 06:50 Prothrombin Time 25.2 H Prothrombin Time Ratio 2.0 INR International Normalized Ratio 2.26 Activated Partial Thromboplast Time 52.5 H Sodium Level 135 Potassium Level 3.1 L Chloride Level 108 Carbon Dioxide Level 17 L Anion Gap 13 Blood Urea Nitrogen 11 Creatinine 0.99 Glucose Level 143 Calcium Level 8.3 L Phosphorus Level 3.2 Magnesium Level 2.0 Medications Medications Current Medications Ondansetron HCl (Zofran Inj) 4 mg Q6H PRN IV NAUSEA AND/OR VOMITING Last administered on 10/27/16 13:51; Admin Dose 4 MG; Start 10/25/16 at 11:00 Nitroglycerin (Nitroglycerin (Sl Tab) 0.4 Mg) 1 tab Q5M PRN SL CHEST PAIN; Start 10/25/16 at 11:00 Acetaminophen (Tylenol Tab) 650 mg Q6H PRN PO PAIN LEVEL 1-3 OR FEVER Last administered on 11/04/16 15:30; Admin Dose 650 MG; Start 10/25/16 at 11:00 Acetaminophen (Tylenol Supp) 650 mg Q4H PRN SD PAIN LEVEL 1-3 OR FEVER; Start 10/25/16 at 11:00 Docusate Sodium (Colace) 100 mg Q12H PRN PO CONSTIPATION; Start 10/25/16 at 11: 00 Bisacodyl (Dulcolax Supp) 10 mg DAILY PRN SD CONSTIPATION; Start 10/25/16 at 11: 00 Amiodarone HCl (Cordarone) 400 mg BID GTB Last administered on 11/01/16 10:22 ; Admin Dose 400 MG; Start 10/25/16 at 21:00 Ascorbic Acid (Vitamin C) 500 mg DAILY GTB Last administered on 11/08/16 09:32 ; Admin Dose 500 MG; Start 10/26/16 at 09:00 Chlorhexidine Gluconate (Peridex) 15 ml Q12 MM Last administered on 11/08/16 09:31; Admin Dose 15 ML; Start 10/25/16 at 21:00 Collagenase (Santyl) 1 applic DAILY TOP Last administered on 11/08/16 09:33; Admin Dose 1 APPLIC; Start 10/26/16 at 09:00 Ferrous Sulfate (Feosol Liquid Cup) 330 mg DAILY GTB Last administered on 09:31; Admin Dose 330 MG; Start 10/26/16 at 09:00 Multivitamins Therapeutic (Theragran) 1 tab DAILY GTB Last administered on 11/08 09:32; Admin Dose 1 TAB; Start 10/26/16 at 09:00 Lactobacillus Acidoph/Bulgaricus (Floranex) 1 tab BID PO Last administered on 09:32; Admin Dose 1 TAB; Start 10/25/16 at 21:00 Fenofibrate (Tricor) 145 mg DAILY PO Last administered on 11/08/16 09:32; Admin Dose 145 MG; Start 10/26/16 at 09:00 IV Flush (NS 10 ml) 10 ml PRN PRN IV IV PROTOCOL; Start 10/25/16 at 11:30 Atorvastatin Calcium (Lipitor) 20 mg HS PO Last administered on 11/07/16 20:37 ; Admin Dose 20 MG; Start 10/25/16 at 21:00 Miscellaneous Information 1 ea NOTE XX ; Start 10/26/16 at 09:30 Glucose (Glutose) 15 gm Q15M PRN PO DECREASED GLUCOSE; Start 10/26/16 at 09:30 Glucose (Glutose) 22.5 gm Q15M PRN PO DECREASED GLUCOSE; Start 10/26/16 at 09:30 Dextrose (D50w Syringe) 25 ml Q15M PRN IV DECREASED GLUCOSE Last administered on 11/04/16 07:38; Admin Dose 25 ML; Start 10/26/16 at 09:30 Dextrose (D50w Syringe) 50 ml Q15M PRN IV DECREASED GLUCOSE; Start 10/26/16 at 09:30 Glucagon (Glucagen) 1 mg Q15M PRN IM DECREASED GLUCOSE; Start 10/26/16 at 09:30 Glucose (Glutose) 15 gm Q15M PRN BUCCAL DECREASED GLUCOSE; Start 10/26/16 at 09: 30 Insulin Glargine (Lantus) 12 unit DAILY@20 SC Last administered on 11/07/16 21 :01; Admin Dose 12 UNIT; Start 10/26/16 at 20:00 Sodium Hypochlorite (Dakin'S (1/4 Strength)) 1 applic DAILY IRR Last administered on 11/08/16 09:35; Admin Dose 1 APPLIC; Start 10/27/16 at 09:00 Insulin Aspart (Novolog Insulin Pen) NOVOLOG *MILD* ALGORI... Q6 SC Last administered on 11/08/16 05:40; Admin Dose 1 UNIT; Start 10/29/16 at 12:00 Linezolid 600 mg 600 mg BID PO Last administered on 11/08/16 09:32; Admin Dose 600 MG; Start 10/30/16 at 21:00 Colistimethate Sodium/Sodium Chloride (Coly-Mycin/NS) 100 ml @ 200 mls/hr Q12 IVPB Last administered on 11/08/16 09:51; Admin Dose 200 MLS/HR; Start at 21:00 Non-Formulary Medication 10 ml QID GTB Last administered on 11/08/16 09:31; Admin Dose 10 ML; Start 10/31/16 at 17:00 Mupirocin 1 applic 1 applic BID TOP Last administered on 11/08/16 09:31; Admin Dose 1 APPLIC; Start 11/02/16 at 16:30 Metronidazole (Flagyl 500 Mg (Pmx)) 100 ml @ 100 mls/hr Q8 IVPB Last administered on 11/08/16 05:39; Admin Dose 100 MLS/HR; Start 11/02/16 at 15:30 Lansoprazole 30 mg 30 mg BID@06,18 PO Last administered on 11/08/16 05:39; Admin Dose 30 MG; Start 11/06/16 at 18:00 Sodium Bicarbonate 100 meq/Sodium Chloride 1,000 ml @ 40 mls/hr Q24H IV Last administered on 11/07/16 22:24; Admin Dose 40 MLS/HR; Start 11/07/16 at 21:00 Potassium Chloride/Sodium Chloride (KCl/NS) 110 ml @ 55 mls/hr ONCE ONCE IVPB ; Start 11/08/16 at 12:00; Stop 11/08/16 at 13:59 JORGE ROBLES Nov 08, 2016 12:14
--- NOTE | 2016-11-08 13:59 | PN ---
DATE: 11/08/2016 SUBJECTIVE: The patient is on a respirator, has a G-tube and indwelling Ferreira catheter. He has no complaints himself and he cannot express any symptoms. OBJECTIVE: VITAL SIGNS: His temperature is 98.4, blood pressure is 97/50, pulse is 93, respirations 19. ABDOMEN: A little obese, but soft. GENITOURINARY: The Ferreira catheter is draining clear urine. There is no bleeding. LABORATORY DATA: CBC shows a white count 9.6, hemoglobin 7.9, hematocrit 26.0. BUN is 11, creatini ne 0.99, sodium 135, potassium 3.1, chloride 108, CO2 of 17. PLAN: The patient again is getting potassium chloride and he is going to be transferred today to [facility] (formerly [facility] for continuation of his respiratory care. I will have to change his Ferreira catheter once he get s Garcia and I will do that later on. Dictated By: TANA DUBOIS/GENOVEVA Conf#: [id number] DID#: [id number]
--- NOTE | 2016-11-08 14:12 | PN ---
Date/Time of Note Date/Time of Note DATE: 11/08/16 TIME: 14:11 Assessment/Plan Lines/Catheters IV Catheter Type (from [facility]): PICC Line Ferreira in Place (from [facility]): Yes Assessment/Plan Chief Complaint/Hosp Course 1. Sacral deep tissue injury s/p excisional debridement 11/01 -offloading -optimize nutrition per feeding tube -vitamin C administration -local care. 2. Lower extremity decubitus ulcerations as above. 3. Shock (sepsis plus or minus hypovolemia, plus or minus cardiac). Improved -Continue judicious fluid management, cardiac optimization and treatment of underlying infections. 4. Urinary tract infection. Continue antibiotics. 5. Significant anemia of unknown etiology. EGD performed. Colonoscopy 10/31. -gi/medical management -tx prn 6. Diabetes. Continue nutrition and medication control. 7. Elevated troponin with non-ST elevation myocardial infarction. Continue cardiac optimization. 8. History of cerebrovascular accident. Continue medical optimization. 9. Peptic ulcer disease. Continue proton pump inhibitors. 10. Coronary artery disease. Continue cardiac optimization. 11. Acute renal insufficiency secondary to above. Continue judicious fluid management. 12. Ventilator-dependent respiratory failure. Continue pulmonary toilet. 13. Dysphagia and tube feeds s/p PEG Thank you, Problems: Subjective 24 Hr Interval Summary No fevers or chills. No cough. No sz/rash. No bloating. No vomiting. Bowel function. No bleeding Exam/Review of Systems Vital Signs Vitals Vital Signs Date Time Temp Pulse Resp B/P Pulse Ox O2 Delivery O2 Flow Rate FiO2 11/08/16 12:12 93 11/08/16 11:22 98.4 19 97/50 100 11/08/16 10:00 30 Intake and Output 11/07/16 11/07/16 11/08/16 15:00 23:00 07:00 Intake Total 200 ml 1515 ml Output Total 300 ml Balance 200 ml 1215 ml Exam Free Text/Dictation GENERAL: Awake but noncommunicative. HEENT: The pupils are equal and reactive. No scleral icterus. Mucous membranes are moist. NECK: Trach in place. No JVD. PULMONARY: Decreased breath sounds. No wheezing. CARDIAC: S1, S2 ABDOMEN: Soft. PEG in place. EXTREMITIES: Minimal edema. VASCULAR: Capillary refill is 3 seconds. NEUROLOGIC: Awake, but does not follow commands. SKIN: Sacrococcygeal ulcer with packing. Bilateral lower extremity skin injuries. Results Result Diagram: 11/07/16 0445 11/08/16 0650 MINNIE SHIELDS MD Nov 08, 2016 14:12
--- NOTE | 2016-11-08 14:54 | PN ---
Date/Time of Note Date/Time of Note DATE: 11/08/16 TIME: 14:48 Assessment/Plan VTE Prophylaxis VTE Prophylaxis Intervention: SCD's Lines/Catheters IV C[facility]ter Type [facility]from [facility]): PICC Line Central line still needed: Yes Urinary Cath still in place: Yes Reason Cath still needed: urinary retention Assessment/Plan Chief Complaint/Hosp Course Problems: Assessment/Plan Hypokalemia 3.[address] abdomen /Pelvis 11/05/2016 1. Dilation air distension of the mid to distal sigmoid colon, without evident volvulus. 2. The cecum is not dilated. 3. Moderate bilateral pleural effusions with dependent atelectasis versus airspace disease. 4. Cardiomegaly, without pericardial fluid. 5. Mild ascites over the liver, and moderate ascites over the spleen and extending into the left pericolic gutter. 6. Mild nonspecific small bowel ileus in the left abdomen. KUB 11/04/2016 1. New dilation of the cecum measuring up to 13 cm, with increased risk of perforation. 2. Differential considerations include dilated sigmoid colon. 3. Recommend CT correlation. 4. New dilatation of the transverse colon measuring up to about 8 cm , and differential considerations include dilated air-filled sigmoid colon. 3. New mild to moderate small bowel ileus, otherwise nonspecific. Sepsis resolving Anemia * Cecal ulcer /ulcer descending colon * s/p EGD 10/27/2016. 1.Gastrostomy tube in the body of the stomach.Otherwise, normal esophagogastroduodenoscopy with no bleeding site identified * Status post bedside PEG reinsertion * s/o 10/31/2016 Colonoscopy * 1. An 8 mm ulcer in the proximal descending colon, biopsied. * 2. A 4 cm ulcer in the cecum, biopsied. * 3. Normal ileum. * 4. Otherwise, normal colonic mucosa. * 5. Large internal hemorrhoids. Plan * continue tube feeding to reach goal of 65 cc/hour * continue present management * correct hypokalemia * d/c rectal tube Subjective 24 Hr Interval Summary Free Text/Dictation * Course reviewed with RN * patient seen and examined * tolerating g tube feeding no residuals * K 3.1 Exam/Review of Systems Vital Signs Vitals Vital Signs Date Time Temp Pulse Resp B/P Pulse Ox O2 Delivery O2 Flow Rate FiO2 11/08/16 13:20 99 18 99 30 11/08/16 11:22 98.4 97/50 Intake and Output 11/07/16 11/07/16 11/08/16 15:00 23:00 07:00 Intake Total 200 ml 1515 ml Output Total 300 ml Balance 200 ml 1215 ml Exam Constitutional: frail Head: normocephalic Neck: supple Respiratory: clear to auscultation, diminished breath sounds, other (trach to vent) Cardiovascular: nl pulses, regular rate and rhythm Gastrointestinal: distended, non-tender, other (g tube in placed,dressing dry intact,rectal tube in placed ) Genitourinary - Male: other (thapa catheter in placed) Skin: other (multiple decubitus) Results Result Diagram: 11/07/16 0445 11/08/16 0650 Results 24 hrs Laboratory Tests Test 11/07/16 17:08 11/07/16 20:52 11/08/16 02:26 11/08/16 05:36 Bedside Glucose 202 187 177 152 Test 11/08/16 06:50 11/08/16 12:09 Prothrombin Time 25.2 H Prothrombin Time Ratio 2.0 INR International Normalized Ratio 2.26 Activated Partial Thromboplast Time 52.5 H Sodium Level 135 Potassium Level 3.1 L Chloride Level 108 Carbon Dioxide Level 17 L Anion Gap 13 Blood Urea Nitrogen 11 Creatinine 0.99 Glucose Level 143 Calcium Level 8.3 L Phosphorus Level 3.2 Magnesium Level 2.0 Bedside Glucose 143 Medications Medications Current Medications Ondansetron HCl (Zofran Inj) 4 mg Q6H PRN IV NAUSEA AND/OR VOMITING Last administered on 10/27/16 13:51; Admin Dose 4 MG; Start 10/25/16 at 11:00 Nitroglycerin (Nitroglycerin (Sl Tab) 0.4 Mg) 1 tab Q5M PRN SL CHEST PAIN; Start 10/25/16 at 11:00 Acetaminophen (Tylenol Tab) 650 mg Q6H PRN PO PAIN LEVEL 1-3 OR FEVER Last administered on 11/04/16 15:30; Admin Dose 650 MG; Start 10/25/16 at 11:00 Acetaminophen (Tylenol Supp) 650 mg Q4H PRN [place] PAIN LEVEL 1-3 OR FEVER; Start 10/25/16 at 11:00 Docusate Sodium (Colace) 100 mg Q12H PRN PO CONSTIPATION; Start 10/25/16 at 11: 00 Bisacodyl (Dulcolax Supp) 10 mg DAILY PRN [place] CONSTIPATION; Start 10/25/16 at 11: 00 Amiodarone HCl (Cordarone) 400 mg BID GTB Last administered on 11/01/16 10:22 ; Admin Dose 400 MG; Start 10/25/16 at 21:00 Ascorbic Acid (Vitamin C) 500 mg DAILY GTB Last administered on 11/08/16 09:32 ; Admin Dose 500 MG; Start 10/26/16 at 09:00 Chlorhexidine Gluconate (Peridex) 15 ml Q12 MM Last administered on 11/08/16 09:31; Admin Dose 15 ML; Start 10/25/16 at 21:00 Collagenase (Santyl) 1 applic DAILY TOP Last administered on 11/08/16 09:33; Admin Dose 1 APPLIC; Start 10/26/16 at 09:00 Ferrous Sulfate (Feosol Liquid Cup) 330 mg DAILY GTB Last administered on 09:31; Admin Dose 330 MG; Start 10/26/16 at 09:00 Multivitamins Therapeutic (Theragran) 1 tab DAILY GTB Last administered on 11/08 09:32; Admin Dose 1 TAB; Start 10/26/16 at 09:00 Lactobacillus Acidoph/Bulgaricus (Floranex) 1 tab BID PO Last administered on 09:32; Admin Dose 1 TAB; Start 10/25/16 at 21:00 Fenofibrate (Tricor) 145 mg DAILY PO Last administered on 11/08/16 09:32; Admin Dose 145 MG; Start 10/26/16 at 09:00 IV Flush (NS 10 ml) 10 ml PRN PRN IV IV PROTOCOL; Start 10/25/16 at 11:30 Atorvastatin Calcium (Lipitor) 20 mg HS PO Last administered on 11/07/16 20:37 ; Admin Dose 20 MG; Start 10/25/16 at 21:00 Miscellaneous Information 1 ea NOTE XX ; Start 10/26/16 at 09:30 Glucose (Glutose) 15 gm Q15M PRN PO DECREASED GLUCOSE; Start 10/26/16 at 09:30 Glucose (Glutose) 22.5 gm Q15M PRN PO DECREASED GLUCOSE; Start 10/26/16 at 09:30 Dextrose (D50w Syringe) 25 ml Q15M PRN IV DECREASED GLUCOSE Last administered on 11/04/16 07:38; Admin Dose 25 ML; Start 10/26/16 at 09:30 Dextrose (D50w Syringe) 50 ml Q15M PRN IV DECREASED GLUCOSE; Start 10/26/16 at 09:30 Glucagon (Glucagen) 1 mg Q15M PRN IM DECREASED GLUCOSE; Start 10/26/16 at 09:30 Glucose (Glutose) 15 gm Q15M PRN BUCCAL DECREASED GLUCOSE; Start 10/26/16 at 09: 30 Insulin Glargine (Lantus) 12 unit DAILY@20 SC Last administered on 11/07/16 21 :01; Admin Dose 12 UNIT; Start 10/26/16 at 20:00 Sodium Hypochlorite (Dakin'S (/ Strength)) 1 applic DAILY IRR Last administered on 11/08/16 09:35; Admin Dose 1 APPLIC; Start 10/27/16 at 09:00 Insulin Aspart (Novolog Insulin Pen) NOVOLOG *MILD* ALGORI... Q6 SC Last administered on 11/08/16 12:17; Admin Dose 1 UNIT; Start 10/29/16 at 12:00 Linezolid 600 mg 600 mg BID PO Last administered on 11/08/16 09:32; Admin Dose 600 MG; Start 10/30/16 at 21:00 Colistimethate Sodium/Sodium Chloride (Coly-Mycin/NS) 100 ml @ 200 mls/hr Q12 IVPB Last administered on 11/08/16 09:51; Admin Dose 200 MLS/HR; Start at 21:00 Non-Formulary Medication 10 ml QID GTB Last administered on 11/08/16 13:29; Admin Dose 10 ML; Start 10/31/16 at 17:00 Mupirocin 1 applic 1 applic BID TOP Last administered on 11/08/16 09:31; Admin Dose 1 APPLIC; Start 11/02/16 at 16:30 Metronidazole (Flagyl 500 Mg (Pmx)) 100 ml @ 100 mls/hr Q8 IVPB Last administered on 11/08/16 13:30; Admin Dose 100 MLS/HR; Start 11/02/16 at 15:30 Lansoprazole 30 mg 30 mg BID@06,18 PO Last administered on 11/08/16 05:39; Admin Dose 30 MG; Start 11/06/16 at 18:00 Sodium Bicarbonate/ Sodium Chloride (Na Bicarb/1/2 NS) 1,000 ml @ 40 mls/hr Q24H IV Last administered on 11/07/16 22:24; Admin Dose 40 MLS/HR; Start 11/07 at 21:00 RAYMON BETANCOURT MD Nov 08, 2016 14:54
--- NOTE | 2016-11-08 16:59 | CONS ---
Date/Time of Note Date/Time of Note DATE: 11/08/16 TIME: 16:58 Assessment/Plan Assessment/Plan Additional Assessment/Plan Septic shock Acute blood loss anemia Elevated troponin likely secondary to above Respiratory failure Paroxysmal atrial fibrillation, currently sinus rhythm Paroxysmal atrial tachycardia Preserved ejection fraction Acute kidney injury -Patient remains in sinus rhythm, supplement potassium to maintain above 4.0 and magnesium above 2.0. No anticoagulation at the current time given recurrent hematuria and anemia. Consultation Date/Type/Reason Admit Date/Time Oct 25, 2016 at 10:54 Initial Consult Date 10/25/16 Type of Consultation: cv Referring Provider: DILIP ARELLANO MD 24 HR Interval Summary Free Text/Dictation Patient seen and examined Exam/Review of Systems Vital Signs Vitals Vital Signs Date Time Temp Pulse Resp B/P Pulse Ox O2 Delivery O2 Flow Rate FiO2 11/08/16 16:19 95 11/08/16 15:51 98.3 19 95/52 95 11/08/16 13:20 30 Intake and Output 11/07/16 11/07/16 11/08/16 15:00 23:00 07:00 Intake Total 200 ml 1515 ml Output Total 300 ml Balance 200 ml 1215 ml Exam No apparent distress Head: normocephalic Neck: other (Tracheostomy) Respiratory: other (Coarse breath sounds bilaterally, no wheezing) Cardiovascular: other (S1-S2 heard), regular rate and rhythm Gastrointestinal: bowel sounds, non-tender, soft Extremities: edema Results Result Diagram: 11/07/16 0445 11/08/16 0650 Results 24 hrs Laboratory Tests Test 11/07/16 17:08 11/07/16 20:52 11/08/16 02:26 11/08/16 05:36 Bedside Glucose 202 187 177 152 Test 11/08/16 06:50 11/08/16 12:09 Prothrombin Time 25.2 H Prothrombin Time Ratio 2.0 INR International Normalized Ratio 2.26 Activated Partial Thromboplast Time 52.5 H Sodium Level 135 Potassium Level 3.1 L Chloride Level 108 Carbon Dioxide Level 17 L Anion Gap 13 Blood Urea Nitrogen 11 Creatinine 0.99 Glucose Level 143 Calcium Level 8.3 L Phosphorus Level 3.2 Magnesium Level 2.0 Bedside Glucose 143 Medications Medications Current Medications Ondansetron HCl (Zofran Inj) 4 mg Q6H PRN IV NAUSEA AND/OR VOMITING Last administered on 10/27/16 13:51; Admin Dose 4 MG; Start 10/25/16 at 11:00 Nitroglycerin (Nitroglycerin (Sl Tab) 0.4 Mg) 1 tab Q5M PRN SL CHEST PAIN; Start 10/25/16 at 11:00 Acetaminophen (Tylenol Tab) 650 mg Q6H PRN PO PAIN LEVEL 1-3 OR FEVER Last administered on 11/04/16 15:30; Admin Dose 650 MG; Start 10/25/16 at 11:00 Acetaminophen (Tylenol Supp) 650 mg Q4H PRN [place] PAIN LEVEL 1-3 OR FEVER; Start 10/25/16 at 11:00 Docusate Sodium (Colace) 100 mg Q12H PRN PO CONSTIPATION; Start 10/25/16 at 11: 00 Bisacodyl (Dulcolax Supp) 10 mg DAILY PRN [place] CONSTIPATION; Start 10/25/16 at 11: 00 Amiodarone HCl (Cordarone) 400 mg BID GTB Last administered on 11/01/16 10:22 ; Admin Dose 400 MG; Start 10/25/16 at 21:00 Ascorbic Acid (Vitamin C) 500 mg DAILY GTB Last administered on 11/08/16 09:32 ; Admin Dose 500 MG; Start 10/26/16 at 09:00 Chlorhexidine Gluconate (Peridex) 15 ml Q12 MM Last administered on 11/08/16 09:31; Admin Dose 15 ML; Start 10/25/16 at 21:00 Collagenase (Santyl) 1 applic DAILY TOP Last administered on 11/08/16 09:33; Admin Dose 1 APPLIC; Start 10/26/16 at 09:00 Ferrous Sulfate (Feosol Liquid Cup) 330 mg DAILY GTB Last administered on 09:31; Admin Dose 330 MG; Start 10/26/16 at 09:00 Multivitamins Therapeutic (Theragran) 1 tab DAILY GTB Last administered on 11/08 09:32; Admin Dose 1 TAB; Start 10/26/16 at 09:00 Lactobacillus Acidoph/Bulgaricus (Floranex) 1 tab BID PO Last administered on 09:32; Admin Dose 1 TAB; Start 10/25/16 at 21:00 Fenofibrate (Tricor) 145 mg DAILY PO Last administered on 11/08/16 09:32; Admin Dose 145 MG; Start 10/26/16 at 09:00 IV Flush (NS 10 ml) 10 ml PRN PRN IV IV PROTOCOL; Start 10/25/16 at 11:30 Atorvastatin Calcium (Lipitor) 20 mg HS PO Last administered on 11/07/16 20:37 ; Admin Dose 20 MG; Start 10/25/16 at 21:00 Miscellaneous Information 1 ea NOTE XX ; Start 10/26/16 at 09:30 Glucose (Glutose) 15 gm Q15M PRN PO DECREASED GLUCOSE; Start 10/26/16 at 09:30 Glucose (Glutose) 22.5 gm Q15M PRN PO DECREASED GLUCOSE; Start 10/26/16 at 09:30 Dextrose (D50w Syringe) 25 ml Q15M PRN IV DECREASED GLUCOSE Last administered on 11/04/16 07:38; Admin Dose 25 ML; Start 10/26/16 at 09:30 Dextrose (D50w Syringe) 50 ml Q15M PRN IV DECREASED GLUCOSE; Start 10/26/16 at 09:30 Glucagon (Glucagen) 1 mg Q15M PRN IM DECREASED GLUCOSE; Start 10/26/16 at 09:30 Glucose (Glutose) 15 gm Q15M PRN BUCCAL DECREASED GLUCOSE; Start 10/26/16 at 09: 30 Insulin Glargine (Lantus) 12 unit DAILY@20 SC Last administered on 11/07/16 21 :01; Admin Dose 12 UNIT; Start 10/26/16 at 20:00 Sodium Hypochlorite (Dakin'S (1/4 Strength)) 1 applic DAILY IRR Last administered on 11/08/16 09:35; Admin Dose 1 APPLIC; Start 10/27/16 at 09:00 Insulin Aspart (Novolog Insulin Pen) NOVOLOG *MILD* ALGORI... Q6 SC Last administered on 11/08/16 12:17; Admin Dose 1 UNIT; Start 10/29/16 at 12:00 Linezolid 600 mg 600 mg BID PO Last administered on 11/08/16 09:32; Admin Dose 600 MG; Start 10/30/16 at 21:00 Colistimethate Sodium/Sodium Chloride (Coly-Mycin/NS) 100 ml @ 200 mls/hr Q12 IVPB Last administered on 11/08/16 09:51; Admin Dose 200 MLS/HR; Start at 21:00 Non-Formulary Medication 10 ml QID GTB Last administered on 11/08/16 13:29; Admin Dose 10 ML; Start 10/31/16 at 17:00 Mupirocin 1 applic 1 applic BID TOP Last administered on 11/08/16 09:31; Admin Dose 1 APPLIC; Start 11/02/16 at 16:30 Metronidazole (Flagyl 500 Mg (Pmx)) 100 ml @ 100 mls/hr Q8 IVPB Last administered on 11/08/16 13:30; Admin Dose 100 MLS/HR; Start 11/02/16 at 15:30 Lansoprazole 30 mg 30 mg BID@06,18 PO Last administered on 11/08/16 05:39; Admin Dose 30 MG; Start 11/06/16 at 18:00 Sodium Bicarbonate/ Sodium Chloride (Na Bicarb/1/2 NS) 1,000 ml @ 40 mls/hr Q24H IV Last administered on 11/07/16 22:24; Admin Dose 40 MLS/HR; Start 11/07 at 21:00 Ervin Ceja DO Nov 08, 2016 16:59
--- NOTE | 2016-11-08 17:08 | CONS ---
Date/Time of Note Date/Time of Note DATE: 11/08/16 TIME: 17:06 Assessment/Plan Assessment/Plan Chief Complaint/Hosp Course SUBJECTIVE: No acute events. The patient is lying comfortably in bed, started on TF, no fevers. ANTIMICROBIALS: The patient remains on: 1. Flagyl. 2. Topical Bactroban to nares. 3. Zyvox. 4. Colistin. INDWELLINGS: Trach, PEG, Ferreira, rectal tube and PICC line placed on 10/25/2016. PHYSICAL EXAMINATION: GENERAL: This is a fragile, chronically ill-appearing, elderly man who is noncommunicative, in no distress. HEENT: Head atraumatic, normocephalic. Sclerae anicteric. Buccal mucosa dry. NECK: Supple. Tracheostomy present. CHEST: Rise symmetrical. Breath sounds diminished to bases. HEART: S1, S2. ABDOMEN: Distended, soft. Bowel tones present. EXTREMITIES: Without cyanosis. ASSESSMENT: 1. Sepsis, status post shock. 2. Ileus with dilatation of the cecum and transverse colon per CT of the abdomen, status post rectal tube placement, no volvulus per CT, gastroenterology on case. 4. Status post Proteus mirabilis bacteremia. 5. Status post Escherichia coli UTI. 6. Methicillin-resistant Staphylococcus aureus nares colonization. 7. Unstageable sacral decubitus, status post debridement on 11/01/2016. 8. History of cerebrovascular accident and hematuria. PLAN: The patient remains stable, tolerates TF, continue abx, GI/surgical/ urology rec-s [facility] staff Problems: Consultation Date/Type/Reason Admit Date/Time Oct 25, 2016 at 10:54 Initial Consult Date 10/25/16 Type of Consultation: ID Referring Provider: DILIP ARELLANO MD Exam/Review of Systems Vital Signs Vitals Vital Signs Date Time Temp Pulse Resp B/P Pulse Ox O2 Delivery O2 Flow Rate FiO2 11/08/16 16:19 95 11/08/16 15:51 98.3 19 95/52 95 11/08/16 13:20 30 Intake and Output 11/07/16 11/07/16 11/08/16 14:59 22:59 06:59 Intake Total 200 ml 1515 ml Output Total 300 ml Balance 200 ml 1215 ml Results Result Diagram: 11/07/16 0445 11/08/16 0650 Results 24 hrs Laboratory Tests Test 11/07/16 17:08 11/07/16 20:52 11/08/16 02:26 11/08/16 05:36 Bedside Glucose 202 187 177 152 Test 11/08/16 06:50 11/08/16 12:09 Prothrombin Time 25.2 H Prothrombin Time Ratio 2.0 INR International Normalized Ratio 2.26 Activated Partial Thromboplast Time 52.5 H Sodium Level 135 Potassium Level 3.1 L Chloride Level 108 Carbon Dioxide Level 17 L Anion Gap 13 Blood Urea Nitrogen 11 Creatinine 0.99 Glucose Level 143 Calcium Level 8.3 L Phosphorus Level 3.2 Magnesium Level 2.0 Bedside Glucose 143 Medications Medications Current Medications Ondansetron HCl (Zofran Inj) 4 mg Q6H PRN IV NAUSEA AND/OR VOMITING Last administered on 10/27/16 13:51; Admin Dose 4 MG; Start 10/25/16 at 11:00 Nitroglycerin (Nitroglycerin (Sl Tab) 0.4 Mg) 1 tab Q5M PRN SL CHEST PAIN; Start 10/25/16 at 11:00 Acetaminophen (Tylenol Tab) 650 mg Q6H PRN PO PAIN LEVEL 1-3 OR FEVER Last administered on 11/04/16 15:30; Admin Dose 650 MG; Start 10/25/16 at 11:00 Acetaminophen (Tylenol Supp) 650 mg Q4H PRN [place] PAIN LEVEL 1-3 OR FEVER; Start 10/25/16 at 11:00 Docusate Sodium (Colace) 100 mg Q12H PRN PO CONSTIPATION; Start 10/25/16 at 11: 00 Bisacodyl (Dulcolax Supp) 10 mg DAILY PRN [place] CONSTIPATION; Start 10/25/16 at 11: 00 Amiodarone HCl (Cordarone) 400 mg BID GTB Last administered on 11/01/16 10:22 ; Admin Dose 400 MG; Start 10/25/16 at 21:00 Ascorbic Acid (Vitamin C) 500 mg DAILY GTB Last administered on 11/08/16 09:32 ; Admin Dose 500 MG; Start 10/26/16 at 09:00 Chlorhexidine Gluconate (Peridex) 15 ml Q12 MM Last administered on 11/08/16 09:31; Admin Dose 15 ML; Start 10/25/16 at 21:00 Collagenase (Santyl) 1 applic DAILY TOP Last administered on 11/08/16 09:33; Admin Dose 1 APPLIC; Start 10/26/16 at 09:00 Ferrous Sulfate (Feosol Liquid Cup) 330 mg DAILY GTB Last administered on 09:31; Admin Dose 330 MG; Start 10/26/16 at 09:00 Multivitamins Therapeutic (Theragran) 1 tab DAILY GTB Last administered on 11/08 09:32; Admin Dose 1 TAB; Start 10/26/16 at 09:00 Lactobacillus Acidoph/Bulgaricus (Floranex) 1 tab BID PO Last administered on 09:32; Admin Dose 1 TAB; Start 10/25/16 at 21:00 Fenofibrate (Tricor) 145 mg DAILY PO Last administered on 11/08/16 09:32; Admin Dose 145 MG; Start 10/26/16 at 09:00 IV Flush (NS 10 ml) 10 ml PRN PRN IV IV PROTOCOL; Start 10/25/16 at 11:30 Atorvastatin Calcium (Lipitor) 20 mg HS PO Last administered on 11/07/16 20:37 ; Admin Dose 20 MG; Start 10/25/16 at 21:00 Miscellaneous Information 1 ea NOTE XX ; Start 10/26/16 at 09:30 Glucose (Glutose) 15 gm Q15M PRN PO DECREASED GLUCOSE; Start 10/26/16 at 09:30 Glucose (Glutose) 22.5 gm Q15M PRN PO DECREASED GLUCOSE; Start 10/26/16 at 09:30 Dextrose (D50w Syringe) 25 ml Q15M PRN IV DECREASED GLUCOSE Last administered on 11/04/16 07:38; Admin Dose 25 ML; Start 10/26/16 at 09:30 Dextrose (D50w Syringe) 50 ml Q15M PRN IV DECREASED GLUCOSE; Start 10/26/16 at 09:30 Glucagon (Glucagen) 1 mg Q15M PRN IM DECREASED GLUCOSE; Start 10/26/16 at 09:30 Glucose (Glutose) 15 gm Q15M PRN BUCCAL DECREASED GLUCOSE; Start 10/26/16 at 09: 30 Insulin Glargine (Lantus) 12 unit DAILY@20 SC Last administered on 11/07/16 21 :01; Admin Dose 12 UNIT; Start 10/26/16 at 20:00 Sodium Hypochlorite (Dakin'S (07/26 Strength)) 1 applic DAILY IRR Last administered on 11/08/16 09:35; Admin Dose 1 APPLIC; Start 10/27/16 at 09:00 Insulin Aspart (Novolog Insulin Pen) NOVOLOG *MILD* ALGORI... Q6 SC Last administered on 11/08/16 12:17; Admin Dose 1 UNIT; Start 10/29/16 at 12:00 Linezolid 600 mg 600 mg BID PO Last administered on 11/08/16 09:32; Admin Dose 600 MG; Start 10/30/16 at 21:00 Colistimethate Sodium/Sodium Chloride (Coly-Mycin/NS) 100 ml @ 200 mls/hr Q12 IVPB Last administered on 11/08/16 09:51; Admin Dose 200 MLS/HR; Start at 21:00 Non-Formulary Medication 10 ml QID GTB Last administered on 11/08/16 13:29; Admin Dose 10 ML; Start 10/31/16 at 17:00 Mupirocin 1 applic 1 applic BID TOP Last administered on 11/08/16 09:31; Admin Dose 1 APPLIC; Start 11/02/16 at 16:30 Metronidazole (Flagyl 500 Mg (Pmx)) 100 ml @ 100 mls/hr Q8 IVPB Last administered on 11/08/16 13:30; Admin Dose 100 MLS/HR; Start 11/02/16 at 15:30 Lansoprazole 30 mg 30 mg BID@06,18 PO Last administered on 11/08/16 05:39; Admin Dose 30 MG; Start 11/06/16 at 18:00 Sodium Bicarbonate/ Sodium Chloride (Na Bicarb/1/2 NS) 1,000 ml @ 40 mls/hr Q24H IV Last administered on 11/07/16 22:24; Admin Dose 40 MLS/HR; Start 11/07 at 21:00 ADITYA CALLAHAN NP Nov 08, 2016 17:08
--- NOTE | 2016-11-08 18:09 | CONS ---
Date/Time of Note Date/Time of Note DATE: 11/08/16 TIME: 18:07 Consultation Date/Type/Reason Admit Date/Time Oct 25, 2016 at 10:54 Initial Consult Date 10/25/16 Type of Consultation: Nephrology Reason for Consultation THEO Referring Provider: DILIP ARELLANO MD Exam/Review of Systems Vital Signs Vitals Vital Signs Date Time Temp Pulse Resp B/P Pulse Ox O2 Delivery O2 Flow Rate FiO2 11/08/16 16:19 95 11/08/16 15:51 98.3 19 95/52 95 11/08/16 13:20 30 Intake and Output 11/07/16 11/07/16 11/08/16 15:00 23:00 07:00 Intake Total 200 ml 1515 ml Output Total 300 ml Balance 200 ml 1215 ml Results Result Diagram: 11/07/16 0445 11/08/16 0650 Results 24 hrs Laboratory Tests Test 11/07/16 20:52 11/08/16 02:26 11/08/16 05:36 11/08/16 06:50 Bedside Glucose 187 177 152 Prothrombin Time 25.2 H Prothrombin Time Ratio 2.0 INR International Normalized Ratio 2.26 Activated Partial Thromboplast Time 52.5 H Sodium Level 135 Potassium Level 3.1 L Chloride Level 108 Carbon Dioxide Level 17 L Anion Gap 13 Blood Urea Nitrogen 11 Creatinine 0.99 Glucose Level 143 Calcium Level 8.3 L Phosphorus Level 3.2 Magnesium Level 2.0 Test 11/08/16 12:09 Bedside Glucose 143 Medications Medications Current Medications Ondansetron HCl (Zofran Inj) 4 mg Q6H PRN IV NAUSEA AND/OR VOMITING Last administered on 10/27/16 13:51; Admin Dose 4 MG; Start 10/25/16 at 11:00 Nitroglycerin (Nitroglycerin (Sl Tab) 0.4 Mg) 1 tab Q5M PRN SL CHEST PAIN; Start 10/25/16 at 11:00 Acetaminophen (Tylenol Tab) 650 mg Q6H PRN PO PAIN LEVEL 1-3 OR FEVER Last administered on 11/04/16 15:30; Admin Dose 650 MG; Start 10/25/16 at 11:00 Acetaminophen (Tylenol Supp) 650 mg Q4H PRN [place] PAIN LEVEL 1-3 OR FEVER; Start 10/25/16 at 11:00 Docusate Sodium (Colace) 100 mg Q12H PRN PO CONSTIPATION; Start 10/25/16 at 11: 00 Bisacodyl (Dulcolax Supp) 10 mg DAILY PRN [place] CONSTIPATION; Start 10/25/16 at 11: 00 Amiodarone HCl (Cordarone) 400 mg BID GTB Last administered on 11/01/16 10:22 ; Admin Dose 400 MG; Start 10/25/16 at 21:00 Ascorbic Acid (Vitamin C) 500 mg DAILY GTB Last administered on 11/08/16 09:32 ; Admin Dose 500 MG; Start 10/26/16 at 09:00 Chlorhexidine Gluconate (Peridex) 15 ml Q12 MM Last administered on 11/08/16 09:31; Admin Dose 15 ML; Start 10/25/16 at 21:00 Collagenase (Santyl) 1 applic DAILY TOP Last administered on 11/08/16 09:33; Admin Dose 1 APPLIC; Start 10/26/16 at 09:00 Ferrous Sulfate (Feosol Liquid Cup) 330 mg DAILY GTB Last administered on 09:31; Admin Dose 330 MG; Start 10/26/16 at 09:00 Multivitamins Therapeutic (Theragran) 1 tab DAILY GTB Last administered on 11/08 09:32; Admin Dose 1 TAB; Start 10/26/16 at 09:00 Lactobacillus Acidoph/Bulgaricus (Floranex) 1 tab BID PO Last administered on 09:32; Admin Dose 1 TAB; Start 10/25/16 at 21:00 Fenofibrate (Tricor) 145 mg DAILY PO Last administered on 11/08/16 09:32; Admin Dose 145 MG; Start 10/26/16 at 09:00 IV Flush (NS 10 ml) 10 ml PRN PRN IV IV PROTOCOL; Start 10/25/16 at 11:30 Atorvastatin Calcium (Lipitor) 20 mg HS PO Last administered on 11/07/16 20:37 ; Admin Dose 20 MG; Start 10/25/16 at 21:00 Miscellaneous Information 1 ea NOTE XX ; Start 10/26/16 at 09:30 Glucose (Glutose) 15 gm Q15M PRN PO DECREASED GLUCOSE; Start 10/26/16 at 09:30 Glucose (Glutose) 22.5 gm Q15M PRN PO DECREASED GLUCOSE; Start 10/26/16 at 09:30 Dextrose (D50w Syringe) 25 ml Q15M PRN IV DECREASED GLUCOSE Last administered on 11/04/16 07:38; Admin Dose 25 ML; Start 10/26/16 at 09:30 Dextrose (D50w Syringe) 50 ml Q15M PRN IV DECREASED GLUCOSE; Start 10/26/16 at 09:30 Glucagon (Glucagen) 1 mg Q15M PRN IM DECREASED GLUCOSE; Start 10/26/16 at 09:30 Glucose (Glutose) 15 gm Q15M PRN BUCCAL DECREASED GLUCOSE; Start 10/26/16 at 09: 30 Insulin Glargine (Lantus) 12 unit DAILY@20 SC Last administered on 11/07/16 21 :01; Admin Dose 12 UNIT; Start 10/26/16 at 20:00 Sodium Hypochlorite (Dakin'S (1/4 Strength)) 1 applic DAILY IRR Last administered on 11/08/16 09:35; Admin Dose 1 APPLIC; Start 10/27/16 at 09:00 Insulin Aspart (Novolog Insulin Pen) NOVOLOG *MILD* ALGORI... Q6 SC Last administered on 11/08/16 12:17; Admin Dose 1 UNIT; Start 10/29/16 at 12:00 Linezolid 600 mg 600 mg BID PO Last administered on 11/08/16 09:32; Admin Dose 600 MG; Start 10/30/16 at 21:00 Colistimethate Sodium/Sodium Chloride (Coly-Mycin/NS) 100 ml @ 200 mls/hr Q12 IVPB Last administered on 11/08/16 09:51; Admin Dose 200 MLS/HR; Start at 21:00 Non-Formulary Medication 10 ml QID GTB Last administered on 11/08/16 17:59; Admin Dose 10 ML; Start 10/31/16 at 17:00 Mupirocin 1 applic 1 applic BID TOP Last administered on 11/08/16 09:31; Admin Dose 1 APPLIC; Start 11/02/16 at 16:30 Metronidazole (Flagyl 500 Mg (Pmx)) 100 ml @ 100 mls/hr Q8 IVPB Last administered on 11/08/16 13:30; Admin Dose 100 MLS/HR; Start 11/02/16 at 15:30 Lansoprazole 30 mg 30 mg BID@06,18 PO Last administered on 11/08/16 17:55; Admin Dose 30 MG; Start 11/06/16 at 18:00 Sodium Bicarbonate/ Sodium Chloride (Na Bicarb/1/2 NS) 1,000 ml @ 40 mls/hr Q24H IV Last administered on 11/07/16 22:24; Admin Dose 40 MLS/HR; Start 11/07 at 21:00 ODALIS REYNA MD Nov 08, 2016 18:09
[2016-11-08] MEDS: ATORVASTATIN 20 MG TAB PO SCH (20:50)
[2016-11-08] MEDS: INSULIN GLARGINE [LANtus] 3 ML PEN SC SCH (21:02)
[2016-11-08] MEDS: SODIUM BICARBONATE (IV ADD) 100 MEQ in SOD CHLORIDE 0.45% 900 ML IV SCH (22:40)
[2016-11-09] VITALS (24 sets, daily range): BP systolic 88–174; BP diastolic 48–79; PULSE 89–104; RESP 14–25
[2016-11-09] MEDS: INSULIN ASPART [NOVOLOG] 3 ML PEN SC SCH ×5 (05:06→23:57)
[2016-11-09] MEDS: LANSOPRAZOLE 30 MG CAP PO SCH ×2 (05:06→19:42)
[2016-11-09] MEDS: metroNIDAZOLE 500 MG/NS (PMX) 100 ML IVPB SCH ×3 (05:06→21:18)
[2016-11-09 07:06] LABS: ADD SCAN DIFF NO; HEMATOCRIT 27.7 % (42.0-52.0); HEMOGLOBIN 8.6 g/dl (14.0-18.0); MEAN CORPUSCULAR HEMOGLOBIN 27.1 pg (29.0-33.0); MEAN CORPUSCULAR VOLUME 87.4 fl (82.0-101.0); MEAN PLATELET VOLUME 11.2 fl (7.4-10.4); PLATELET COUNT 219 10^3/UL (140-415); RED BLOOD COUNT 3.17 10^6/ul (4.70-6.10); RED CELL DISTRIBUTION WIDTH 18.2 % (11.5-14.5); WHITE BLOOD COUNT 8.8 10^3/ul (4.8-10.8)
[2016-11-09 07:08] LABS: ALBUMIN 1.6 g/dl (3.3-4.9); INR 2.15; PROTIME 24.2 Sec (12.2-14.2); PT RATIO 1.9
[2016-11-09 07:09] LABS: PARTIAL THROMBOPLASTIN TIME 51.9 Sec (25.0-35.0); POTASSIUM 3.1 mmol/L (3.5-5.1)
[2016-11-09 07:11] LABS: ALBUMIN/GLOBULIN RATIO 0.57; CREATININE 0.94 mg/dl (0.61-1.24); TOTAL PROTEIN 4.4 g/dl (6.1-8.1)
[2016-11-09 07:12] LABS: CALCIUM 8.4 mg/dl (8.4-10.2)
[2016-11-09] MEDS: AMIODARONE 200 MG TAB GTB SCH ×2 (09:00→21:00)
[2016-11-09 11:07] LABS: EOSINOPHILS # 0.2 10^3/ul (0.0-0.5); LYMPHOCYTES # 0.8 10^3/ul (0.8-2.9); MONOCYTE # 0.3 10^3/ul (0.3-0.9); NEUTROPHIL # 7.3 10^3/ul (1.6-7.5)
[2016-11-09] MEDS: CHLORHEXIDINE GLUCONATE 15 ML UD CUP MM SCH ×2 (11:15→21:17)
[2016-11-09] MEDS: COLISTIMETHATE 75 MG in SOD CHLORIDE 0.9% 100 ML IVPB SCH ×2 (11:15→22:50)
[2016-11-09] MEDS: FERROUS SULFATE 60 MG/ML 5ML CUP GTB SCH (11:15)
[2016-11-09] MEDS: SULFASALAZINE GTB SCH ×4 (11:16→21:25)
[2016-11-09] MEDS: ASCORBIC ACID 500 MG TAB GTB SCH (11:16)
[2016-11-09] MEDS: LACTOBACILLUS CHEW TAB PO SCH ×2 (11:16→21:18)
[2016-11-09] MEDS: FENOFIBRATE 145 MG TAB PO SCH (11:17)
[2016-11-09] MEDS: ZYVOX 600 MG TAB PO SCH ×2 (11:17→21:18)
[2016-11-09] MEDS: MULTIVITAMINS THERAPEUTIC TAB GTB SCH (11:17)
[2016-11-09] MEDS: COLLAGENASE 30 GM TUBE TOP SCH (11:18)
[2016-11-09] MEDS: MUPIROCIN 2% 22 GM OINT TOP SCH ×2 (11:18→21:19)
[2016-11-09] MEDS: SODIUM HYPOCHLORITE 0.125% 473 ML BTL IRR SCH (11:39)
--- NOTE | 2016-11-09 11:47 | PN ---
Date/Time of Note Date/Time of Note DATE: 11/09/16 TIME: 11:43 Assessment/Plan VTE Prophylaxis VTE Prophylaxis Intervention: SCD's Lines/Catheters IV Catheter Type (from Nrs): PICC Line Central line still needed: Yes (DIFFICULT PERIPHERAL iv ACCESS, ON ivf, IV ABX ) Urinary Cath still in place: Yes Reason Cath still needed: urinary retention Assessment/Plan Assessment/Plan 1. S/p Septic shock 2/2 urinary tract infection, Off Pressors now, ID following 2. Ventilator-dependent respiratory failure. Continue vent management by ground mixer. 3. Non-ST myocardial infarction with elevated troponin, likely demand ischemia secondary to anemia. 4. Severe symptomatic anemia due to lower Gi bleeding s/p 2 U PRBC transfusion during this hospitalization- s/p EGD 10/27/2016 with finding of gastrostomy tube in the body of the stomach.Otherwise, normal esophagogastroduodenoscopy with no bleeding site identified s/p 10/31/2016 Colonoscopy and finding of an 8 mm ulcer in the proximal descending colon & A 4 cm ulcer in the cecum with Large internal hemorrhoids. 5. THEO due to ATN from sepsis and prerenal azotemia - stable cr 7. Diabetic mellitus . Place the patient on Lantus, continue insulin sliding scale. 8. History of essential hypertension. 9. Dyslipidemia, on statin. 10. Sacral decubitus, continue wound care, status post surgical debridement on 11/01/2016, continue postop care 12. Hematuria, urology has been consulted, resolved 13. PEG tube dysfunction, GI on case 14. Hypokalemia, Hypomagnesemia - pt is having interstitial defect due to IV colistin, d/c bicarbonate drip KCl 20mEQ IV x 1 dose now, D/c bicarbonate drip DVT prophylaxis; SCD, no Heparin/Lovenox due to GI bleeding possible transfer to [place] Subjective 24 Hr Interval Summary Free Text/Dictation remained stable on Fio2 30%,. on Bicarbonate drip Exam/Review of Systems Vital Signs Vitals Vital Signs Date Time Temp Pulse Resp B/P Pulse Ox O2 Delivery O2 Flow Rate FiO2 11/09/16 11:34 97.9 104 95/50 99 Mechanical Ventilator 11/09/16 09:17 19 30 Intake and Output 11/08/16 11/08/16 11/09/16 15:00 23:00 07:00 Intake Total 420 ml 630 ml 630 ml Output Total 450 ml 500 ml 600 ml Balance -30 ml 130 ml 30 ml Exam General: The patient is cachectic, Not in acute distress. unresponsive HEENT: Atraumatic, normocephalic. The pupils are equal and round . Neck: Tracheostomy in place Chest: Normal expansion of the thorax during inspiration Lungs: Bilateral Coarse BS + Heart: Normal S1-S2, Regular rhythm and rate. Abdomen: Soft , nontender, nondistended , bowel sounds are present. + PEG tube in place Extremities: Normal to inspection, no edema no cyanosis Results Result Diagram: 11/09/16 0636 11/09/16 0636 Results 24 hrs Laboratory Tests Test 11/08/16 12:09 11/08/16 17:53 11/08/16 20:58 11/09/16 01:06 Bedside Glucose 143 134 135 132 Test 11/09/16 04:58 11/09/16 06:36 Bedside Glucose 122 White Blood Count 8.8 Red Blood Count 3.17 L Hemoglobin 8.6 L Hematocrit 27.7 L Mean Corpuscular Volume 87.4 Mean Corpuscular Hemoglobin 27.1 L Mean Corpuscular Hemoglobin Concent 31.0 L Red Cell Distribution Width 18.2 H Platelet Count 219 Mean Platelet Volume 11.2 H Neutrophils % 83.0 H Band Neutrophils % 3.0 Lymphocytes % 9.0 L Monocytes % 3.0 Eosinophils % 2.0 Neutrophils # 7.3 Lymphocytes # 0.8 Monocytes # 0.3 Eosinophils # 0.2 Prothrombin Time 24.2 H Prothrombin Time Ratio 1.9 INR International Normalized Ratio 2.15 Activated Partial Thromboplast Time 51.9 H Sodium Level 135 Potassium Level 3.1 L Chloride Level 106 Carbon Dioxide Level 17 L Anion Gap 15 Blood Urea Nitrogen 13 Creatinine 0.94 Glucose Level 112 Calcium Level 8.4 Magnesium Level 1.8 Total Bilirubin Direct Bilirubin Indirect Bilirubin Aspartate Amino Transf (AST/SGOT) 25 Alanine Aminotransferase (ALT/SGPT) 13 Alkaline Phosphatase 208 H Total Protein 4.4 L Albumin 1.6 L Globulin 2.80 Albumin/Globulin Ratio 0.57 Medications Medications Current Medications Ondansetron HCl (Zofran Inj) 4 mg Q6H PRN IV NAUSEA AND/OR VOMITING Last administered on 10/27/16t 13:51; Admin Dose 4 MG; Start 10/25/16 at 11:00 Nitroglycerin (Nitroglycerin (Sl Tab) 0.4 Mg) 1 tab Q5M PRN SL CHEST PAIN; Start 10/25/16 at 11:00 Acetaminophen (Tylenol Tab) 650 mg Q6H PRN PO PAIN LEVEL 1-3 OR FEVER Last administered on 11/04/16 15:30; Admin Dose 650 MG; Start 10/25/16 at 11:00 Acetaminophen (Tylenol Supp) 650 mg Q4H PRN [place] PAIN LEVEL 1-3 OR FEVER; Start 10/25/16 at 11:00 Docusate Sodium (Colace) 100 mg Q12H PRN PO CONSTIPATION; Start 10/25/16 at 11: 00 Bisacodyl (Dulcolax Supp) 10 mg DAILY PRN [place] CONSTIPATION; Start 10/25/16 at 11: 00 Amiodarone HCl (Cordarone) 400 mg BID GTB Last administered on 11/01/16 10:22 ; Admin Dose 400 MG; Start 10/25/16 at 21:00 Ascorbic Acid (Vitamin C) 500 mg DAILY GTB Last administered on 11/09/16 11:16 ; Admin Dose 500 MG; Start 10/26/16 at 09:00 Chlorhexidine Gluconate (Peridex) 15 ml Q12 MM Last administered on 11/09/16 11:15; Admin Dose 15 ML; Start 10/25/16 at 21:00 Collagenase (Santyl) 1 applic DAILY TOP Last administered on 11/09/16 11:18; Admin Dose 1 APPLIC; Start 10/26/16 at 09:00 Ferrous Sulfate (Feosol Liquid Cup) 330 mg DAILY GTB Last administered on 11:15; Admin Dose 330 MG; Start 10/26/16 at 09:00 Multivitamins Therapeutic (Theragran) 1 tab DAILY GTB Last administered on 11/09 11:17; Admin Dose 1 TAB; Start 10/26/16 at 09:00 Lactobacillus Acidoph/Bulgaricus (Floranex) 1 tab BID PO Last administered on 11:16; Admin Dose 1 TAB; Start 10/25/16 at 21:00 Fenofibrate (Tricor) 145 mg DAILY PO Last administered on 11/09/16 11:17; Admin Dose 145 MG; Start 10/26/16 at 09:00 IV Flush (NS 10 ml) 10 ml PRN PRN IV IV PROTOCOL; Start 10/25/16 at 11:30 Atorvastatin Calcium (Lipitor) 20 mg HS PO Last administered on 11/08/16 20:50 ; Admin Dose 20 MG; Start 10/25/16 at 21:00 Miscellaneous Information 1 ea NOTE XX ; Start 10/26/16 at 09:30 Glucose (Glutose) 15 gm Q15M PRN PO DECREASED GLUCOSE; Start 10/26/16 at 09:30 Glucose (Glutose) 22.5 gm Q15M PRN PO DECREASED GLUCOSE; Start 10/26/16 at 09:30 Dextrose (D50w Syringe) 25 ml Q15M PRN IV DECREASED GLUCOSE Last administered on 11/04/16 07:38; Admin Dose 25 ML; Start 10/26/16 at 09:30 Dextrose (D50w Syringe) 50 ml Q15M PRN IV DECREASED GLUCOSE; Start 10/26/16 at 09:30 Glucagon (Glucagen) 1 mg Q15M PRN IM DECREASED GLUCOSE; Start 10/26/16 at 09:30 Glucose (Glutose) 15 gm Q15M PRN BUCCAL DECREASED GLUCOSE; Start 10/26/16 at 09: 30 Insulin Glargine (Lantus) 12 unit DAILY@20 SC Last administered on 11/08/16 21 :02; Admin Dose 12 UNIT; Start 10/26/16 at 20:00 Sodium Hypochlorite (Dakin'S (1/4 Strength)) 1 applic DAILY IRR Last administered on 11/09/16 11:39; Admin Dose 1 APPLIC; Start 10/27/16 at 09:00 Insulin Aspart (Novolog Insulin Pen) NOVOLOG *MILD* ALGORI... Q6 SC Last administered on 11/08/16 12:17; Admin Dose 1 UNIT; Start 10/29/16 at 12:00 Linezolid 600 mg 600 mg BID PO Last administered on 11/09/16 11:17; Admin Dose 600 MG; Start 10/30/16 at 21:00 Colistimethate Sodium/Sodium Chloride (Coly-Mycin/NS) 100 ml @ 200 mls/hr Q12 IVPB Last administered on 11/09/16 11:15; Admin Dose 200 MLS/HR; Start at 21:00 Non-Formulary Medication 10 ml QID GTB Last administered on 11/09/16 11:16; Admin Dose 10 ML; Start 10/31/16 at 17:00 Mupirocin 1 applic 1 applic BID TOP Last administered on 11/09/16 11:18; Admin Dose 1 APPLIC; Start 11/02/16 at 16:30 Metronidazole (Flagyl 500 Mg (Pmx)) 100 ml @ 100 mls/hr Q8 IVPB Last administered on 11/09/16 05:06; Admin Dose 100 MLS/HR; Start 11/02/16 at 15:30 Lansoprazole 30 mg 30 mg BID@06,18 PO Last administered on 11/09/16 05:06; Admin Dose 30 MG; Start 11/06/16 at 18:00 Sodium Bicarbonate/ Sodium Chloride (Na Bicarb/1/2 NS) 1,000 ml @ 40 mls/hr Q24H IV Last administered on 11/08/16 22:40; Admin Dose 40 MLS/HR; Start 11/07 at 21:00 DAO PÉREZ MD Nov 09, 2016 11:47
--- NOTE | 2016-11-09 12:08 | CONS ---
Date/Time of Note Date/Time of Note DATE: 11/09/16 TIME: 12:06 Assessment/Plan Assessment/Plan Additional Assessment/Plan Ventilator settings; AC of 12, tidal volume 550, PEEP of 5, 30% FiO2. Assessment recommendations; 1. Patient admitted for sacral decubitus ulcer currently on broad-spectrum antibiotic coverage. 2. Multi-infarct dementia. 3. Chronic respiratory failure, ventilator dependent. Continue current treatment. Consultation Date/Type/Reason Admit Date/Time Oct 25, 2016 at 10:54 Initial Consult Date 10/25/16 Type of Consultation: Pulmonary Referring Provider: DILIP ARELLANO MD 24 HR Interval Summary Free Text/Dictation Patient condition remains stable. Remains essentially unresponsive. Has remained hemodynamically stable. General exam; elderly male, on ventilator via tracheostomy currently in no distress. Exam/Review of Systems Vital Signs Vitals Vital Signs Date Time Temp Pulse Resp B/P Pulse Ox O2 Delivery O2 Flow Rate FiO2 11/09/16 11:51 107 18 97 30 11/09/16 11:34 97.9 95/50 Mechanical Ventilator Intake and Output 11/08/16 11/08/16 11/09/16 15:00 23:00 07:00 Intake Total 420 ml 630 ml 630 ml Output Total 450 ml 500 ml 600 ml Balance -30 ml 130 ml 30 ml Exam HEENT exam is; supple neck, no JVD. No lymphadenopathy. Midline trachea. Ostomy in place. Chest exam; diminished but clear vessel. S1-S2 audible, no murmurs. Regular rhythm. Abdomen exam is; soft, G-tube in place. No organomegaly. Bowel sounds audible. Extremity exam; no peripheral edema. Patient does have contractures involving all 4 remedies. QUALITY CONTROL CHEMIST examination; patient remains unresponsive but is awake. Results Result Diagram: 11/09/16 0636 11/09/16 0636 Results 24 hrs Laboratory Tests Test 11/08/16 12:09 11/08/16 17:53 11/08/16 20:58 11/09/16 01:06 Bedside Glucose 143 134 135 132 Test 11/09/16 04:58 11/09/16 06:36 Bedside Glucose 122 White Blood Count 8.8 Red Blood Count 3.17 L Hemoglobin 8.6 L Hematocrit 27.7 L Mean Corpuscular Volume 87.4 Mean Corpuscular Hemoglobin 27.1 L Mean Corpuscular Hemoglobin Concent 31.0 L Red Cell Distribution Width 18.2 H Platelet Count 219 Mean Platelet Volume 11.2 H Neutrophils % 83.0 H Band Neutrophils % 3.0 Lymphocytes % 9.0 L Monocytes % 3.0 Eosinophils % 2.0 Neutrophils # 7.3 Lymphocytes # 0.8 Monocytes # 0.3 Eosinophils # 0.2 Prothrombin Time 24.2 H Prothrombin Time Ratio 1.9 INR International Normalized Ratio 2.15 Activated Partial Thromboplast Time 51.9 H Sodium Level 135 Potassium Level 3.1 L Chloride Level 106 Carbon Dioxide Level 17 L Anion Gap 15 Blood Urea Nitrogen 13 Creatinine 0.94 Glucose Level 112 Calcium Level 8.4 Magnesium Level 1.8 Total Bilirubin Direct Bilirubin Indirect Bilirubin Aspartate Amino Transf (AST/SGOT) 25 Alanine Aminotransferase (ALT/SGPT) 13 Alkaline Phosphatase 208 H Total Protein 4.4 L Albumin 1.6 L Globulin 2.80 Albumin/Globulin Ratio 0.57 Medications Medications Current Medications Ondansetron HCl (Zofran Inj) 4 mg Q6H PRN IV NAUSEA AND/OR VOMITING Last administered on 10/27/16 13:51; Admin Dose 4 MG; Start 10/25/16 at 11:00 Nitroglycerin (Nitroglycerin (Sl Tab) 0.4 Mg) 1 tab Q5M PRN SL CHEST PAIN; Start 10/25/16 at 11:00 Acetaminophen (Tylenol Tab) 650 mg Q6H PRN PO PAIN LEVEL 1-3 OR FEVER Last administered on 11/04/16 15:30; Admin Dose 650 MG; Start 10/25/16 at 11:00 Acetaminophen (Tylenol Supp) 650 mg Q4H PRN [place] PAIN LEVEL 1-3 OR FEVER; Start 10/25/16 at 11:00 Docusate Sodium (Colace) 100 mg Q12H PRN PO CONSTIPATION; Start 10/25/16 at 11: 00 Bisacodyl (Dulcolax Supp) 10 mg DAILY PRN [place] CONSTIPATION; Start 10/25/16 at 11: 00 Amiodarone HCl (Cordarone) 400 mg BID GTB Last administered on 11/01/16 10:22 ; Admin Dose 400 MG; Start 10/25/16 at 21:00 Ascorbic Acid (Vitamin C) 500 mg DAILY GTB Last administered on 11/09/16 11:16 ; Admin Dose 500 MG; Start 10/26/16 at 09:00 Chlorhexidine Gluconate (Peridex) 15 ml Q12 MM Last administered on 11/09/16 11:15; Admin Dose 15 ML; Start 10/25/16 at 21:00 Collagenase (Santyl) 1 applic DAILY TOP Last administered on 11/09/16 11:18; Admin Dose 1 APPLIC; Start 10/26/16 at 09:00 Ferrous Sulfate (Feosol Liquid Cup) 330 mg DAILY GTB Last administered on 11:15; Admin Dose 330 MG; Start 10/26/16 at 09:00 Multivitamins Therapeutic (Theragran) 1 tab DAILY GTB Last administered on 11/09 11:17; Admin Dose 1 TAB; Start 10/26/16 at 09:00 Lactobacillus Acidoph/Bulgaricus (Floranex) 1 tab BID PO Last administered on 11:16; Admin Dose 1 TAB; Start 10/25/16 at 21:00 Fenofibrate (Tricor) 145 mg DAILY PO Last administered on 11/09/16 11:17; Admin Dose 145 MG; Start 10/26/16 at 09:00 IV Flush (NS 10 ml) 10 ml PRN PRN IV IV PROTOCOL; Start 10/25/16 at 11:30 Atorvastatin Calcium (Lipitor) 20 mg HS PO Last administered on 11/08/16 20:50 ; Admin Dose 20 MG; Start 10/25/16 at 21:00 Miscellaneous Information 1 ea NOTE XX ; Start 10/26/16 at 09:30 Glucose (Glutose) 15 gm Q15M PRN PO DECREASED GLUCOSE; Start 10/26/16 at 09:30 Glucose (Glutose) 22.5 gm Q15M PRN PO DECREASED GLUCOSE; Start 10/26/16 at 09:30 Dextrose (D50w Syringe) 25 ml Q15M PRN IV DECREASED GLUCOSE Last administered on 11/04/16 07:38; Admin Dose 25 ML; Start 10/26/16 at 09:30 Dextrose (D50w Syringe) 50 ml Q15M PRN IV DECREASED GLUCOSE; Start 10/26/16 at 09:30 Glucagon (Glucagen) 1 mg Q15M PRN IM DECREASED GLUCOSE; Start 10/26/16 at 09:30 Glucose (Glutose) 15 gm Q15M PRN BUCCAL DECREASED GLUCOSE; Start 10/26/16 at 09: 30 Insulin Glargine (Lantus) 12 unit DAILY@20 SC Last administered on 11/08/16 21 :02; Admin Dose 12 UNIT; Start 10/26/16 at 20:00 Sodium Hypochlorite (Dakin'S (1/4 Strength)) 1 applic DAILY IRR Last administered on 11/09/16 11:39; Admin Dose 1 APPLIC; Start 10/27/16 at 09:00 Insulin Aspart (Novolog Insulin Pen) NOVOLOG *MILD* ALGORI... Q6 SC Last administered on 11/08/16 12:17; Admin Dose 1 UNIT; Start 10/29/16 at 12:00 Linezolid 600 mg 600 mg BID PO Last administered on 11/09/16 11:17; Admin Dose 600 MG; Start 10/30/16 at 21:00 Colistimethate Sodium/Sodium Chloride (Coly-Mycin/NS) 100 ml @ 200 mls/hr Q12 IVPB Last administered on 11/09/16 11:15; Admin Dose 200 MLS/HR; Start at 21:00 Non-Formulary Medication 10 ml QID GTB Last administered on 11/09/16 11:16; Admin Dose 10 ML; Start 10/31/16 at 17:00 Mupirocin 1 applic 1 applic BID TOP Last administered on 11/09/16 11:18; Admin Dose 1 APPLIC; Start 11/02/16 at 16:30 Metronidazole (Flagyl 500 Mg (Pmx)) 100 ml @ 100 mls/hr Q8 IVPB Last administered on 11/09/16 05:06; Admin Dose 100 MLS/HR; Start 11/02/16 at 15:30 Lansoprazole (Prevacid) 30 mg BID@06,18 PO Last administered on 11/09/16 05:06 ; Admin Dose 30 MG; Start 11/06/16 at 18:00 Citric Acid/ Sodium Citrate 30 ml 30 ml TID PO ; Start 11/09/16 at 13:00 Potassium Chloride/Sodium Chloride (KCl/NS) 110 ml @ 55 mls/hr ONCE ONCE IVPB ; Start 11/09/16 at 13:00; Stop 11/09/16 at 14:59 JORGE ROBLES Apr 20, 2017 12:08
[2016-11-09] MEDS ORDERED: POTASSIUM CHLORIDE 20 MEQ in SOD CHLORIDE 0.9% 100 ML IVPB ONE (13:00)
--- NOTE | 2016-11-09 15:16 | PN ---
Date/Time of Note Date/Time of Note DATE: 11/09/16 TIME: 15:11 Assessment/Plan VTE Prophylaxis VTE Prophylaxis Intervention: SCD's Lines/Catheters IV C[facility]ter Type (from [facility]): PICC Line Central line still needed: Yes Urinary Cath still in place: Yes Reason Cath still needed: urinary retention Assessment/Plan Chief Complaint/Hosp Course Problems: Assessment/Plan Hypokalemia 3.[address] abdomen /Pelvis 11/05/2016 1. Dilation air distension of the mid to distal sigmoid colon, without evident volvulus. 2. The cecum is not dilated. 3. Moderate bilateral pleural effusions with dependent atelectasis versus airspace disease. 4. Cardiomegaly, without pericardial fluid. 5. Mild ascites over the liver, and moderate ascites over the spleen and extending into the left pericolic gutter. 6. Mild nonspecific small bowel ileus in the left abdomen. KUB 11/04/2016 1. New dilation of the cecum measuring up to 13 cm, with increased risk of perforation. 2. Differential considerations include dilated sigmoid colon. 3. Recommend CT correlation. 4. New dilatation of the transverse colon measuring up to about 8 cm , and differential considerations include dilated air-filled sigmoid colon. 3. New mild to moderate small bowel ileus, otherwise nonspecific. Sepsis resolving Anemia * Cecal ulcer /ulcer descending colon * s/p EGD 10/27/2016. 1.Gastrostomy tube in the body of the stomach.Otherwise, normal esophagogastroduodenoscopy with no bleeding site identified * Status post bedside PEG reinsertion * s/o 10/31/2016 Colonoscopy * 1. An 8 mm ulcer in the proximal descending colon, biopsied. * 2. A 4 cm ulcer in the cecum, biopsied. * 3. Normal ileum. * 4. Otherwise, normal colonic mucosa. * 5. Large internal hemorrhoids. Plan * continue tube feeding to reach goal of 65 cc/hour * continue present management * correct hypokalemia Subjective 24 Hr Interval Summary Free Text/Dictation * Course reviewed with RN * patient seen and examined * tolerating tube feeding * no vomiting * K 3.1 despite replacement yesterday Exam/Review of Systems Vital Signs Vitals Vital Signs Date Time Temp Pulse Resp B/P Pulse Ox O2 Delivery O2 Flow Rate FiO2 11/09/16 13:50 99 15 97 30 11/09/16 11:34 97.9 95/50 Mechanical Ventilator Intake and Output 11/08/16 11/08/16 11/09/16 15:00 23:00 07:00 Intake Total 420 ml 630 ml 630 ml Output Total 450 ml 500 ml 600 ml Balance -30 ml 130 ml 30 ml Exam Constitutional: frail Neck: non-tender, supple Respiratory: diminished breath sounds, normal air movement, other (trach to ventilator) Cardiovascular: nl pulses, regular rate and rhythm Gastrointestinal: bowel sounds, distended, non-tender, other (tube feeding in placed), soft, No rebound or guarding Extremities: normal pulses Skin: other (multiple decubitus) Results Result Diagram: 11/09/16 0636 11/09/16 0636 Results 24 hrs Laboratory Tests Test 11/08/16 17:53 11/08/16 20:58 11/09/16 01:06 11/09/16 04:58 Bedside Glucose 134 135 132 122 Test 11/09/16 06:36 11/09/16 12:39 White Blood Count 8.8 Red Blood Count 3.17 L Hemoglobin 8.6 L Hematocrit 27.7 L Mean Corpuscular Volume 87.4 Mean Corpuscular Hemoglobin 27.1 L Mean Corpuscular Hemoglobin Concent 31.0 L Red Cell Distribution Width 18.2 H Platelet Count 219 Mean Platelet Volume 11.2 H Neutrophils % 83.0 H Band Neutrophils % 3.0 Lymphocytes % 9.0 L Monocytes % 3.0 Eosinophils % 2.0 Neutrophils # 7.3 Lymphocytes # 0.8 Monocytes # 0.3 Eosinophils # 0.2 Prothrombin Time 24.2 H Prothrombin Time Ratio 1.9 INR International Normalized Ratio 2.15 Activated Partial Thromboplast Time 51.9 H Sodium Level 135 Potassium Level 3.1 L Chloride Level 106 Carbon Dioxide Level 17 L Anion Gap 15 Blood Urea Nitrogen 13 Creatinine 0.94 Glucose Level 112 Calcium Level 8.4 Magnesium Level 1.8 Total Bilirubin Direct Bilirubin Indirect Bilirubin Aspartate Amino Transf (AST/SGOT) 25 Alanine Aminotransferase (ALT/SGPT) 13 Alkaline Phosphatase 208 H Total Protein 4.4 L Albumin 1.6 L Globulin 2.80 Albumin/Globulin Ratio 0.57 Bedside Glucose 109 Medications Medications Current Medications Ondansetron HCl (Zofran Inj) 4 mg Q6H PRN IV NAUSEA AND/OR VOMITING Last administered on 10/27/16 13:51; Admin Dose 4 MG; Start 10/25/16 at 11:00 Nitroglycerin (Nitroglycerin (Sl Tab) 0.4 Mg) 1 tab Q5M PRN SL CHEST PAIN; Start 10/25/16 at 11:00 Acetaminophen (Tylenol Tab) 650 mg Q6H PRN PO PAIN LEVEL 1-3 OR FEVER Last administered on 11/04/16 15:30; Admin Dose 650 MG; Start 10/25/16 at 11:00 Acetaminophen (Tylenol Supp) 650 mg Q4H PRN [place] PAIN LEVEL 1-3 OR FEVER; Start 10/25/16 at 11:00 Docusate Sodium (Colace) 100 mg Q12H PRN PO CONSTIPATION; Start 10/25/16 at 11: 00 Bisacodyl (Dulcolax Supp) 10 mg DAILY PRN [place] CONSTIPATION; Start 10/25/16 at 11: 00 Amiodarone HCl (Cordarone) 400 mg BID GTB Last administered on 11/01/16 10:22 ; Admin Dose 400 MG; Start 10/25/16 at 21:00 Ascorbic Acid (Vitamin C) 500 mg DAILY GTB Last administered on 11/09/16 11:16 ; Admin Dose 500 MG; Start 10/26/16 at 09:00 Chlorhexidine Gluconate (Peridex) 15 ml Q12 MM Last administered on 11/09/16 11:15; Admin Dose 15 ML; Start 10/25/16 at 21:00 Collagenase (Santyl) 1 applic DAILY TOP Last administered on 11/09/16 11:18; Admin Dose 1 APPLIC; Start 10/26/16 at 09:00 Ferrous Sulfate (Feosol Liquid Cup) 330 mg DAILY GTB Last administered on 11:15; Admin Dose 330 MG; Start 10/26/16 at 09:00 Multivitamins Therapeutic (Theragran) 1 tab DAILY GTB Last administered on 11/09 11:17; Admin Dose 1 TAB; Start 10/26/16 at 09:00 Lactobacillus Acidoph/Bulgaricus (Floranex) 1 tab BID PO Last administered on 11:16; Admin Dose 1 TAB; Start 10/25/16 at 21:00 Fenofibrate (Tricor) 145 mg DAILY PO Last administered on 11/09/16 11:17; Admin Dose 145 MG; Start 10/26/16 at 09:00 IV Flush (NS 10 ml) 10 ml PRN PRN IV IV PROTOCOL; Start 10/25/16 at 11:30 Atorvastatin Calcium (Lipitor) 20 mg HS PO Last administered on 11/08/16 20:50 ; Admin Dose 20 MG; Start 10/25/16 at 21:00 Miscellaneous Information 1 ea NOTE XX ; Start 10/26/16 at 09:30 Glucose (Glutose) 15 gm Q15M PRN PO DECREASED GLUCOSE; Start 10/26/16 at 09:30 Glucose (Glutose) 22.5 gm Q15M PRN PO DECREASED GLUCOSE; Start 10/26/16 at 09:30 Dextrose (D50w Syringe) 25 ml Q15M PRN IV DECREASED GLUCOSE Last administered on 11/04/16 07:38; Admin Dose 25 ML; Start 10/26/16 at 09:30 Dextrose (D50w Syringe) 50 ml Q15M PRN IV DECREASED GLUCOSE; Start 10/26/16 at 09:30 Glucagon (Glucagen) 1 mg Q15M PRN IM DECREASED GLUCOSE; Start 10/26/16 at 09:30 Glucose (Glutose) 15 gm Q15M PRN BUCCAL DECREASED GLUCOSE; Start 10/26/16 at 09: 30 Insulin Glargine (Lantus) 12 unit DAILY@20 SC Last administered on 11/08/16 21 :02; Admin Dose 12 UNIT; Start 10/26/16 at 20:00 Sodium Hypochlorite (Dakin'S (1/4 Strength)) 1 applic DAILY IRR Last administered on 11/09/16 11:39; Admin Dose 1 APPLIC; Start 10/27/16 at 09:00 Insulin Aspart (Novolog Insulin Pen) NOVOLOG *MILD* ALGORI... Q6 SC Last administered on 11/08/16 12:17; Admin Dose 1 UNIT; Start 10/29/16 at 12:00 Linezolid 600 mg 600 mg BID PO Last administered on 11/09/16 11:17; Admin Dose 600 MG; Start 10/30/16 at 21:00 Colistimethate Sodium/Sodium Chloride (Coly-Mycin/NS) 100 ml @ 200 mls/hr Q12 IVPB Last administered on 11/09/16 11:15; Admin Dose 200 MLS/HR; Start at 21:00 Non-Formulary Medication 10 ml QID GTB Last administered on 11/09/16 11:16; Admin Dose 10 ML; Start 10/31/16 at 17:00 Mupirocin 1 applic 1 applic BID TOP Last administered on 11/09/16 11:18; Admin Dose 1 APPLIC; Start 11/02/16 at 16:30 Metronidazole (Flagyl 500 Mg (Pmx)) 100 ml @ 100 mls/hr Q8 IVPB Last administered on 11/09/16 05:06; Admin Dose 100 MLS/HR; Start 11/02/16 at 15:30 Lansoprazole (Prevacid) 30 mg BID@06,18 PO Last administered on 11/09/16 05:06 ; Admin Dose 30 MG; Start 11/06/16 at 18:00 Citric Acid/ Sodium Citrate (Bicitra) 30 ml TID PO ; Start 11/09/16 at 13:00 RAYMON BETANCOURT MD Nov 09, 2016 15:16
--- NOTE | 2016-11-09 15:34 | CONS ---
Date/Time of Note Date/Time of Note DATE: 11/09/16 TIME: 15:32 Assessment/Plan Assessment/Plan Chief Complaint/Hosp Course SUBJECTIVE: No acute events. The patient is lying comfortably in bed, tolerates TF, no fevers. ANTIMICROBIALS: 1. Flagyl. 2. Topical Bactroban to nares. 3. Zyvox. 4. Colistin. INDWELLINGS: Trach, PEG, Ferreira, rectal tube and PICC line placed on 10/25/2016. PHYSICAL EXAMINATION: GENERAL: This is a fragile, chronically ill-appearing, elderly man who is noncommunicative, in no distress. HEENT: Head atraumatic, normocephalic. Sclerae anicteric. Buccal mucosa dry. NECK: Supple. Tracheostomy present. CHEST: Rise symmetrical. Breath sounds diminished to bases. HEART: S1, S2. ABDOMEN: Distended, soft. Bowel tones present. EXTREMITIES: Without cyanosis. ASSESSMENT: 1. Resolving sepsis, status post shock. 2. Ileus with dilatation of the cecum and transverse colon per CT of the abdomen, status post rectal tube placement, no volvulus per CT, gastroenterology on case. 4. Status post Proteus mirabilis bacteremia. 5. Status post Escherichia coli UTI. 6. Methicillin-resistant Staphylococcus aureus nares colonization. 7. Unstageable sacral decubitus, status post debridement on 11/01/2016. 8. History of cerebrovascular accident and hematuria. PLAN: Improving, tolerates TF, will dc abx in am, GI/surgical/urology rec-s [facility] staff Problems: Consultation Date/Type/Reason Admit Date/Time Oct 25, 2016 at 10:54 Initial Consult Date 10/25/16 Type of Consultation: id Referring Provider: DILIP ARELLANO MD Exam/Review of Systems Vital Signs Vitals Vital Signs Date Time Temp Pulse Resp B/P Pulse Ox O2 Delivery O2 Flow Rate FiO2 11/09/16 13:50 99 15 97 30 11/09/16 11:34 97.9 95/50 Mechanical Ventilator Intake and Output 11/08/16 11/08/16 11/09/16 15:00 23:00 07:00 Intake Total 420 ml 630 ml 630 ml Output Total 450 ml 500 ml 600 ml Balance -30 ml 130 ml 30 ml Results Result Diagram: 11/09/16 0636 11/09/16 0636 Results 24 hrs Laboratory Tests Test 11/08/16 17:53 11/08/16 20:58 11/09/16 01:06 11/09/16 04:58 Bedside Glucose 134 135 132 122 Test 11/09/16 06:36 11/09/16 12:39 White Blood Count 8.8 Red Blood Count 3.17 L Hemoglobin 8.6 L Hematocrit 27.7 L Mean Corpuscular Volume 87.4 Mean Corpuscular Hemoglobin 27.1 L Mean Corpuscular Hemoglobin Concent 31.0 L Red Cell Distribution Width 18.2 H Platelet Count 219 Mean Platelet Volume 11.2 H Neutrophils % 83.0 H Band Neutrophils % 3.0 Lymphocytes % 9.0 L Monocytes % 3.0 Eosinophils % 2.0 Neutrophils # 7.3 Lymphocytes # 0.8 Monocytes # 0.3 Eosinophils # 0.2 Prothrombin Time 24.2 H Prothrombin Time Ratio 1.9 INR International Normalized Ratio 2.15 Activated Partial Thromboplast Time 51.9 H Sodium Level 135 Potassium Level 3.1 L Chloride Level 106 Carbon Dioxide Level 17 L Anion Gap 15 Blood Urea Nitrogen 13 Creatinine 0.94 Glucose Level 112 Calcium Level 8.4 Magnesium Level 1.8 Total Bilirubin Direct Bilirubin Indirect Bilirubin Aspartate Amino Transf (AST/SGOT) 25 Alanine Aminotransferase (ALT/SGPT) 13 Alkaline Phosphatase 208 H Total Protein 4.4 L Albumin 1.6 L Globulin 2.80 Albumin/Globulin Ratio 0.57 Bedside Glucose 109 Medications Medications Current Medications Ondansetron HCl (Zofran Inj) 4 mg Q6H PRN IV NAUSEA AND/OR VOMITING Last administered on 10/27/16 13:51; Admin Dose 4 MG; Start 10/25/16 at 11:00 Nitroglycerin (Nitroglycerin (Sl Tab) 0.4 Mg) 1 tab Q5M PRN SL CHEST PAIN; Start 10/25/16 at 11:00 Acetaminophen (Tylenol Tab) 650 mg Q6H PRN PO PAIN LEVEL 1-3 OR FEVER Last administered on 11/04/16 15:30; Admin Dose 650 MG; Start 10/25/16 at 11:00 Acetaminophen (Tylenol Supp) 650 mg Q4H PRN [place] PAIN LEVEL 1-3 OR FEVER; Start 10/25/16 at 11:00 Docusate Sodium (Colace) 100 mg Q12H PRN PO CONSTIPATION; Start 10/25/16 at 11: 00 Bisacodyl (Dulcolax Supp) 10 mg DAILY PRN [place] CONSTIPATION; Start 10/25/16 at 11: 00 Amiodarone HCl (Cordarone) 400 mg BID GTB Last administered on 11/01/16 10:22 ; Admin Dose 400 MG; Start 10/25/16 at 21:00 Ascorbic Acid (Vitamin C) 500 mg DAILY GTB Last administered on 11/09/16 11:16 ; Admin Dose 500 MG; Start 10/26/16 at 09:00 Chlorhexidine Gluconate (Peridex) 15 ml Q12 MM Last administered on 11/09/16 11:15; Admin Dose 15 ML; Start 10/25/16 at 21:00 Collagenase (Santyl) 1 applic DAILY TOP Last administered on 11/09/16 11:18; Admin Dose 1 APPLIC; Start 10/26/16 at 09:00 Ferrous Sulfate (Feosol Liquid Cup) 330 mg DAILY GTB Last administered on 11:15; Admin Dose 330 MG; Start 10/26/16 at 09:00 Multivitamins Therapeutic (Theragran) 1 tab DAILY GTB Last administered on 11/09 11:17; Admin Dose 1 TAB; Start 10/26/16 at 09:00 Lactobacillus Acidoph/Bulgaricus (Floranex) 1 tab BID PO Last administered on 11:16; Admin Dose 1 TAB; Start 10/25/16 at 21:00 Fenofibrate (Tricor) 145 mg DAILY PO Last administered on 11/09/16 11:17; Admin Dose 145 MG; Start 10/26/16 at 09:00 IV Flush (NS 10 ml) 10 ml PRN PRN IV IV PROTOCOL; Start 10/25/16 at 11:30 Atorvastatin Calcium (Lipitor) 20 mg HS PO Last administered on 11/08/16 20:50 ; Admin Dose 20 MG; Start 10/25/16 at 21:00 Miscellaneous Information 1 ea NOTE XX ; Start 10/26/16 at 09:30 Glucose (Glutose) 15 gm Q15M PRN PO DECREASED GLUCOSE; Start 10/26/16 at 09:30 Glucose (Glutose) 22.5 gm Q15M PRN PO DECREASED GLUCOSE; Start 10/26/16 at 09:30 Dextrose (D50w Syringe) 25 ml Q15M PRN IV DECREASED GLUCOSE Last administered on 11/04/16 07:38; Admin Dose 25 ML; Start 10/26/16 at 09:30 Dextrose (D50w Syringe) 50 ml Q15M PRN IV DECREASED GLUCOSE; Start 10/26/16 at 09:30 Glucagon (Glucagen) 1 mg Q15M PRN IM DECREASED GLUCOSE; Start 10/26/16 at 09:30 Glucose (Glutose) 15 gm Q15M PRN BUCCAL DECREASED GLUCOSE; Start 10/26/16 at 09: 30 Insulin Glargine (Lantus) 12 unit DAILY@20 SC Last administered on 11/08/16 21 :02; Admin Dose 12 UNIT; Start 10/26/16 at 20:00 Sodium Hypochlorite (Dakin'S (/ Strength)) 1 applic DAILY IRR Last administered on 11/09/16 11:39; Admin Dose 1 APPLIC; Start 10/27/16 at 09:00 Insulin Aspart (Novolog Insulin Pen) NOVOLOG *MILD* ALGORI... Q6 SC Last administered on 11/08/16 12:17; Admin Dose 1 UNIT; Start 10/29/16 at 12:00 Linezolid 600 mg 600 mg BID PO Last administered on 11/09/16 11:17; Admin Dose 600 MG; Start 10/30/16 at 21:00 Colistimethate Sodium/Sodium Chloride (Coly-Mycin/NS) 100 ml @ 200 mls/hr Q12 IVPB Last administered on 11/09/16 11:15; Admin Dose 200 MLS/HR; Start at 21:00 Non-Formulary Medication 10 ml QID GTB Last administered on 11/09/16 11:16; Admin Dose 10 ML; Start 10/31/16 at 17:00 Mupirocin 1 applic 1 applic BID TOP Last administered on 11/09/16 11:18; Admin Dose 1 APPLIC; Start 11/02/16 at 16:30 Metronidazole (Flagyl 500 Mg (Pmx)) 100 ml @ 100 mls/hr Q8 IVPB Last administered on 11/09/16 05:06; Admin Dose 100 MLS/HR; Start 11/02/16 at 15:30 Lansoprazole (Prevacid) 30 mg BID@06,18 PO Last administered on 11/09/16 05:06 ; Admin Dose 30 MG; Start 11/06/16 at 18:00 Citric Acid/ Sodium Citrate (Bicitra) 30 ml TID PO ; Start 11/09/16 at 13:00 ADITYA CALLAHAN NP Nov 09, 2016 15:34
[2016-11-09] MEDS: CITRIC ACID/NA CITRATE 30 ML CUP PO SCH ×2 (15:42→21:17)
--- NOTE | 2016-11-09 16:41 | CONS ---
Date/Time of Note Date/Time of Note DATE: 11/09/16 TIME: 16:40 Assessment/Plan Assessment/Plan Additional Assessment/Plan Sepsis Acute blood loss anemia Elevated troponin likely secondary to above Respiratory failure Paroxysmal atrial fibrillation, currently sinus rhythm Paroxysmal atrial tachycardia Preserved ejection fraction Acute kidney injury, improving -Patient remains in sinus rhythm, supplement potassium to maintain above 4.0 and magnesium above 2.0. No anticoagulation at the current time given recurrent hematuria and anemia. Consultation Date/Type/Reason Admit Date/Time Oct 25, 2016 at 10:54 Initial Consult Date 10/25/16 Type of Consultation: cv Referring Provider: DILIP ARELLANO MD 24 HR Interval Summary Free Text/Dictation Patient seen and examined. No new cardiac issues as per nursing staff Exam/Review of Systems Vital Signs Vitals Vital Signs Date Time Temp Pulse Resp B/P Pulse Ox O2 Delivery O2 Flow Rate FiO2 11/09/16 15:45 99 17 96 30 11/09/16 11:34 97.9 95/50 Mechanical Ventilator Intake and Output 11/08/16 11/08/16 11/09/16 15:00 23:00 07:00 Intake Total 420 ml 630 ml 630 ml Output Total 450 ml 500 ml 600 ml Balance -30 ml 130 ml 30 ml Exam No apparent distress Head: normocephalic Neck: other (Tracheostomy) Respiratory: other (Coarse breath sounds bilaterally, no wheezing) Cardiovascular: other (S1-S2 heard), regular rate and rhythm Gastrointestinal: bowel sounds, distended, soft Extremities: edema Results Result Diagram: 11/09/16 0636 11/09/16 0636 Results 24 hrs Laboratory Tests Test 11/08/16 17:53 11/08/16 20:58 11/09/16 01:06 11/09/16 04:58 Bedside Glucose 134 135 132 122 Test 11/09/16 06:36 11/09/16 12:39 White Blood Count 8.8 Red Blood Count 3.17 L Hemoglobin 8.6 L Hematocrit 27.7 L Mean Corpuscular Volume 87.4 Mean Corpuscular Hemoglobin 27.1 L Mean Corpuscular Hemoglobin Concent 31.0 L Red Cell Distribution Width 18.2 H Platelet Count 219 Mean Platelet Volume 11.2 H Neutrophils % 83.0 H Band Neutrophils % 3.0 Lymphocytes % 9.0 L Monocytes % 3.0 Eosinophils % 2.0 Neutrophils # 7.3 Lymphocytes # 0.8 Monocytes # 0.3 Eosinophils # 0.2 Prothrombin Time 24.2 H Prothrombin Time Ratio 1.9 INR International Normalized Ratio 2.15 Activated Partial Thromboplast Time 51.9 H Sodium Level 135 Potassium Level 3.1 L Chloride Level 106 Carbon Dioxide Level 17 L Anion Gap 15 Blood Urea Nitrogen 13 Creatinine 0.94 Glucose Level 112 Calcium Level 8.4 Magnesium Level 1.8 Total Bilirubin Direct Bilirubin Indirect Bilirubin Aspartate Amino Transf (AST/SGOT) 25 Alanine Aminotransferase (ALT/SGPT) 13 Alkaline Phosphatase 208 H Total Protein 4.4 L Albumin 1.6 L Globulin 2.80 Albumin/Globulin Ratio 0.57 Bedside Glucose 109 Medications Medications Current Medications Ondansetron HCl (Zofran Inj) 4 mg Q6H PRN IV NAUSEA AND/OR VOMITING Last administered on 10/27/16 13:51; Admin Dose 4 MG; Start 10/25/16 at 11:00 Nitroglycerin (Nitroglycerin (Sl Tab) 0.4 Mg) 1 tab Q5M PRN SL CHEST PAIN; Start 10/25/16 at 11:00 Acetaminophen (Tylenol Tab) 650 mg Q6H PRN PO PAIN LEVEL 1-3 OR FEVER Last administered on 11/04/16 15:30; Admin Dose 650 MG; Start 10/25/16 at 11:00 Acetaminophen (Tylenol Supp) 650 mg Q4H PRN [place] PAIN LEVEL 1-3 OR FEVER; Start 10/25/16 at 11:00 Docusate Sodium (Colace) 100 mg Q12H PRN PO CONSTIPATION; Start 10/25/16 at 11: 00 Bisacodyl (Dulcolax Supp) 10 mg DAILY PRN [place] CONSTIPATION; Start 10/25/16 at 11: 00 Amiodarone HCl (Cordarone) 400 mg BID GTB Last administered on 11/01/16 10:22 ; Admin Dose 400 MG; Start 10/25/16 at 21:00 Ascorbic Acid (Vitamin C) 500 mg DAILY GTB Last administered on 11/09/16 11:16 ; Admin Dose 500 MG; Start 10/26/16 at 09:00 Chlorhexidine Gluconate (Peridex) 15 ml Q12 MM Last administered on 11/09/16 11:15; Admin Dose 15 ML; Start 10/25/16 at 21:00 Collagenase (Santyl) 1 applic DAILY TOP Last administered on 11/09/16 11:18; Admin Dose 1 APPLIC; Start 10/26/16 at 09:00 Ferrous Sulfate (Feosol Liquid Cup) 330 mg DAILY GTB Last administered on 11:15; Admin Dose 330 MG; Start 10/26/16 at 09:00 Multivitamins Therapeutic (Theragran) 1 tab DAILY GTB Last administered on 11/09 11:17; Admin Dose 1 TAB; Start 10/26/16 at 09:00 Lactobacillus Acidoph/Bulgaricus (Floranex) 1 tab BID PO Last administered on 11:16; Admin Dose 1 TAB; Start 10/25/16 at 21:00 Fenofibrate (Tricor) 145 mg DAILY PO Last administered on 11/09/16 11:17; Admin Dose 145 MG; Start 10/26/16 at 09:00 IV Flush (NS 10 ml) 10 ml PRN PRN IV IV PROTOCOL; Start 10/25/16 at 11:30 Atorvastatin Calcium (Lipitor) 20 mg HS PO Last administered on 11/08/16 20:50 ; Admin Dose 20 MG; Start 10/25/16 at 21:00 Miscellaneous Information 1 ea NOTE XX ; Start 10/26/16 at 09:30 Glucose (Glutose) 15 gm Q15M PRN PO DECREASED GLUCOSE; Start 10/26/16 at 09:30 Glucose (Glutose) 22.5 gm Q15M PRN PO DECREASED GLUCOSE; Start 10/26/16 at 09:30 Dextrose (D50w Syringe) 25 ml Q15M PRN IV DECREASED GLUCOSE Last administered on 11/04/16 07:38; Admin Dose 25 ML; Start 10/26/16 at 09:30 Dextrose (D50w Syringe) 50 ml Q15M PRN IV DECREASED GLUCOSE; Start 10/26/16 at 09:30 Glucagon (Glucagen) 1 mg Q15M PRN IM DECREASED GLUCOSE; Start 10/26/16 at 09:30 Glucose (Glutose) 15 gm Q15M PRN BUCCAL DECREASED GLUCOSE; Start 10/26/16 at 09: 30 Insulin Glargine (Lantus) 12 unit DAILY@20 SC Last administered on 11/08/16 21 :02; Admin Dose 12 UNIT; Start 10/26/16 at 20:00 Sodium Hypochlorite (Dakin'S (07/26 Strength)) 1 applic DAILY IRR Last administered on 11/09/16 11:39; Admin Dose 1 APPLIC; Start 10/27/16 at 09:00 Insulin Aspart (Novolog Insulin Pen) NOVOLOG *MILD* ALGORI... Q6 SC Last administered on 11/08/16 12:17; Admin Dose 1 UNIT; Start 10/29/16 at 12:00 Linezolid 600 mg 600 mg BID PO Last administered on 11/09/16 11:17; Admin Dose 600 MG; Start 10/30/16 at 21:00 Colistimethate Sodium/Sodium Chloride (Coly-Mycin/NS) 100 ml @ 200 mls/hr Q12 IVPB Last administered on 11/09/16 11:15; Admin Dose 200 MLS/HR; Start at 21:00 Non-Formulary Medication 10 ml QID GTB Last administered on 11/09/16 15:42; Admin Dose 10 ML; Start 10/31/16 at 17:00 Mupirocin 1 applic 1 applic BID TOP Last administered on 11/09/16 11:18; Admin Dose 1 APPLIC; Start 11/02/16 at 16:30 Metronidazole (Flagyl 500 Mg (Pmx)) 100 ml @ 100 mls/hr Q8 IVPB Last administered on 11/09/16 15:43; Admin Dose 100 MLS/HR; Start 11/02/16 at 15:30 Lansoprazole (Prevacid) 30 mg BID@06,18 PO Last administered on 11/09/16 05:06 ; Admin Dose 30 MG; Start 11/06/16 at 18:00 Citric Acid/ Sodium Citrate (Bicitra) 30 ml TID PO Last administered on 15:42; Admin Dose 30 ML; Start 11/09/16 at 13:00 Ervin Ceja DO Nov 09, 2016 16:41
[2016-11-09] MEDS ORDERED: MAGNESIUM SULFATE 2 GM/50 ML 50 ML IVPB ONE (17:00)
--- NOTE | 2016-11-09 20:35 | PN ---
Date/Time of Note Date/Time of Note DATE: 11/09/16 TIME: 20:34 Assessment/Plan Lines/Catheters IV Catheter Type (from [facility]): PICC Line Ferreira in Place (from [facility]): Yes Assessment/Plan Chief Complaint/Hosp Course 1. Sacral deep tissue injury s/p excisional debridement 11/01 -offloading -optimize nutrition per feeding tube -vitamin C administration -local care. 2. Lower extremity decubitus ulcerations as above. 3. Shock (sepsis plus or minus hypovolemia, plus or minus cardiac). Improved -Continue judicious fluid management, cardiac optimization and treatment of underlying infections. 4. Urinary tract infection. Continue antibiotics. 5. Significant anemia of unknown etiology. EGD performed. Colonoscopy 10/31. -gi/medical management -tx prn 6. Diabetes. Continue nutrition and medication control. 7. Elevated troponin with non-ST elevation myocardial infarction. Continue cardiac optimization. 8. History of cerebrovascular accident. Continue medical optimization. 9. Peptic ulcer disease. Continue proton pump inhibitors. 10. Coronary artery disease. Continue cardiac optimization. 11. Acute renal insufficiency secondary to above. Continue judicious fluid management. 12. Ventilator-dependent respiratory failure. Continue pulmonary toilet. 13. Dysphagia and tube feeds s/p PEG Thank you, Problems: Subjective 24 Hr Interval Summary No fevers or chills. No cough. No sz/rash. No bloating. No vomiting. Bowel function. No bleeding Exam/Review of Systems Vital Signs Vitals Vital Signs Date Time Temp Pulse Resp B/P Pulse Ox O2 Delivery O2 Flow Rate FiO2 11/09/16 17:20 101 15 95 30 11/09/16 16:58 97.6 96/52 11/09/16 11:34 Mechanical Ventilator Intake and Output 11/08/16 11/08/16 11/09/16 15:00 23:00 07:00 Intake Total 420 ml 630 ml 630 ml Output Total 450 ml 500 ml 600 ml Balance -30 ml 130 ml 30 ml Exam Free Text/Dictation GENERAL: Awake but noncommunicative. HEENT: The pupils are equal and reactive. No scleral icterus. Mucous membranes are moist. NECK: Trach in place. No JVD. PULMONARY: Decreased breath sounds. No wheezing. CARDIAC: S1, S2 ABDOMEN: Soft. PEG in place. EXTREMITIES: Minimal edema. VASCULAR: Capillary refill is 3 seconds. NEUROLOGIC: Awake, but does not follow commands. SKIN: Sacrococcygeal ulcer with packing. Bilateral lower extremity skin injuries. Results Result Diagram: 11/09/16 0636 11/09/16 0636 MINNIE SHIELDS MD Nov 09, 2016 20:35
[2016-11-09] MEDS: ATORVASTATIN 20 MG TAB PO SCH (21:18)
[2016-11-09] MEDS: INSULIN GLARGINE [LANtus] 3 ML PEN SC SCH (21:22)
[2016-11-10] VITALS (23 sets, daily range): BP systolic 92–116; BP diastolic 51–70; PULSE 100–112; RESP 17–24
[2016-11-10] MEDS: metroNIDAZOLE 500 MG/NS (PMX) 100 ML IVPB SCH ×2 (05:42→13:27)
[2016-11-10] MEDS: LANSOPRAZOLE 30 MG CAP PO SCH ×2 (05:42→18:03)
[2016-11-10] MEDS: INSULIN ASPART [NOVOLOG] 3 ML PEN SC SCH ×4 (05:46→23:24)
[2016-11-10 06:06] LABS: ADD SCAN DIFF NO
[2016-11-10 06:08] LABS: AADO2 Arterial 114.6 mmHg (7.0-24.0); Allen Test ACCEPTAB; Arterial Base Excess -4.5 mmol/L (-3.0-3); Arterial COHb 0.3 % (0.0-3.0); Arterial Fraction of Oxyhgb 93.6 % (93.0-99.0); Arterial MetHb 0.4 % (0.0-1.5); Arterial Total Hemglobin 11.3 g/dl (12.0-18.0); MODE VENT - AC
[2016-11-10 07:05] LABS: CALCIUM 8.7 mg/dl (8.4-10.2); CREATININE 1.08 mg/dl (0.61-1.24); POTASSIUM 3.6 mmol/L (3.5-5.1)
[2016-11-10 07:14] LABS: INR 1.99; PROTIME 22.8 Sec (12.2-14.2); PT RATIO 1.8
[2016-11-10 07:15] LABS: PARTIAL THROMBOPLASTIN TIME 51.7 Sec (25.0-35.0)
--- NOTE | 2016-11-10 08:47 | PN ---
DATE: 11/10/2016 SUBJECTIVE: Urinary retention, a history of gross hematuria, penoscrotal edema and cloudy urine. Th e patient himself is on a respirator, has a tracheostomy and is not able to give any subjective comp laints. OBJECTIVE: VITAL SIGNS: His temperature is 98.0, pulse is 107, respirations 18, blood pressure 97/57. ABDOMEN: A little obese. GENITALIA: The external genitalia, he does have an indwelling Ferreira catheter that is draining cloud y urine and there was lot of sediment in it. The patient does have significant penoscrotal edema, i n fact it is very difficult to see the meatus because of the edema. EXTREMITIES: He does have edema of the lower extremities and contractures. LABORATORY DATA: His CBC shows a white count of 8.8, hemoglobin 8.6, hematocrit 27.7. BUN is 15, c reatinine 1.08. Sodium 134, potassium 3.6, chloride 108, CO2 17. IMPRESSION: Penoscrotal edema. The hematuria has cleared, but he has very cloudy urine with a lot o f sediment. PLAN: I when went and removed the old Ferreira catheter. Then I cleaned the penis. There was a lot of debris around the meatus because of the edema and not doing meatal care. The tip of the penis was e xposed and then I injected 2% lidocaine gel for lubrication. Then I passed a 24-[place] 3-way Ferreira catheter all the way into the bladder and inflated the balloon, first with 30 mL of sterile water, a nd then irrigated the bladder and got the sediment out of the bladder, sent the urine for culture an d connected the Ferreira to a drainage bag. We also shall keep the scrotum and the penis elevated on a towel all the time. Dictated By: TANA DUBOIS/GENOVEVA Conf#: [id number] DID#: [id number]
--- NOTE | 2016-11-10 10:18 | PN ---
Date/Time of Note Date/Time of Note DATE: 11/10/16 TIME: 10:14 Assessment/Plan VTE Prophylaxis VTE Prophylaxis Intervention: SCD's Lines/Catheters IV [facility] Type (from [facility]): PICC Line Central line still needed: Yes Urinary Cath still in place: Yes Reason Cath still needed: urinary retention Assessment/Plan Chief Complaint/Hosp Course Problems: Assessment/Plan Hypokalemia resolved Colonic ileus resolved CT abdomen /Pelvis 11/05/2016 1. Dilation air distension of the mid to distal sigmoid colon, without evident volvulus. 2. The cecum is not dilated. 3. Moderate bilateral pleural effusions with dependent atelectasis versus airspace disease. 4. Cardiomegaly, without pericardial fluid. 5. Mild ascites over the liver, and moderate ascites over the spleen and extending into the left pericolic gutter. 6. Mild nonspecific small bowel ileus in the left abdomen. KUB 11/04/2016 1. New dilation of the cecum measuring up to 13 cm, with increased risk of perforation. 2. Differential considerations include dilated sigmoid colon. 3. Recommend CT correlation. 4. New dilatation of the transverse colon measuring up to about 8 cm , and differential considerations include dilated air-filled sigmoid colon. 3. New mild to moderate small bowel ileus, otherwise nonspecific. Sepsis resolving Anemia * Cecal ulcer /ulcer descending colon * s/p EGD 10/27/2016. 1.Gastrostomy tube in the body of the stomach.Otherwise, normal esophagogastroduodenoscopy with no bleeding site identified * Status post bedside PEG reinsertion * s/o 10/31/2016 Colonoscopy * 1. An 8 mm ulcer in the proximal descending colon, biopsied. * 2. A 4 cm ulcer in the cecum, biopsied. * 3. Normal ileum. * 4. Otherwise, normal colonic mucosa. * 5. Large internal hemorrhoids. Plan * continue tube feeding to reach goal of 65 cc/hour * continue present management * correct hypokalemia Subjective 24 Hr Interval Summary Free Text/Dictation * Course reviewed with RN * Patient seen and examined * Tube feeding tolerated * No leak around G tube site * K 3.6 Exam/Review of Systems Vital Signs Vitals Vital Signs Date Time Temp Pulse Resp B/P Pulse Ox O2 Delivery O2 Flow Rate FiO2 11/10/16 09:29 106 11/10/16 09:25 18 98 30 11/10/16 03:44 98.0 97/57 11/09/16 11:34 Mechanical Ventilator Intake and Output 11/09/16 11/09/16 11/10/16 15:00 23:00 07:00 Intake Total 700 ml 880 ml Output Total 700 ml 500 ml Balance 0 ml 380 ml Exam Constitutional: frail Neck: non-tender, supple Respiratory: clear to auscultation, diminished breath sounds, normal air movement, other (trach to ventilator) Cardiovascular: nl pulses, regular rate and rhythm Gastrointestinal: bowel sounds, non-tender, other (G tube site dry ,no leak), soft Genitourinary - Male: other (scrotal edema) Extremities: normal pulses Results Result Diagram: 11/09/16 0636 11/10/16 0545 Results 24 hrs Laboratory Tests Test 11/09/16 12:39 11/09/16 19:12 11/09/16 21:16 11/09/16 23:57 Bedside Glucose 109 108 124 120 Test 11/10/16 05:00 11/10/16 05:40 11/10/16 05:45 11/10/16 05:46 Blood Gas Specimen Source Blood arterial Arterial Blood Date Drawn 11/10/2016 6:00:19 AM Arterial Blood pH (Temp corrected) 7.459 H Arterial Blood pCO2 (Temp correct) 26.0 L Arterial Blood pO2 (Temp corrected) 68.8 L Arterial Blood HCO3 18.0 L Arterial Blood Base Excess -4.5 L Arterial Blood Oxygen Saturation 94.3 L Vinayak Test ACCEPTAB Arterial Blood Gas Puncture Site Right Radial Arterial Blood Carboxyhemoglobin 0.3 Arterial Blood Methemoglobin 0.4 Blood Gas A-a O2 Differential 114.6 H Oxyhemoglobin Percent 93.6 Total Hemoglobin 11.3 L Blood Gas Temperature 37.0 Blood Gas Respiration Rate 12.0 Blood Gas Actual Respiration Rate 12 Blood Gas Modality VENT - AC FiO2 30.0 Blood Gas Tidal Volume 550.0 Blood Gas Low PEEP Setting 5.0 Blood Gas Notified Whom MA Blood Gas Notified Time 11/10/2016 6:08:20 AM Prothrombin Time 22.8 H Prothrombin Time Ratio 1.8 INR International Normalized Ratio 1.99 Activated Partial Thromboplast Time 51.7 H Sodium Level 134 L Potassium Level 3.6 Chloride Level 108 Carbon Dioxide Level 17 L Anion Gap 13 Blood Urea Nitrogen 15 Creatinine 1.08 Glucose Level 106 Calcium Level 8.7 Bedside Glucose 122 Medications Medications Current Medications Ondansetron HCl (Zofran Inj) 4 mg Q6H PRN IV NAUSEA AND/OR VOMITING Last administered on 10/27/16 13:51; Admin Dose 4 MG; Start 10/25/16 at 11:00 Nitroglycerin (Nitroglycerin (Sl Tab) 0.4 Mg) 1 tab Q5M PRN SL CHEST PAIN; Start 10/25/16 at 11:00 Acetaminophen (Tylenol Tab) 650 mg Q6H PRN PO PAIN LEVEL 1-3 OR FEVER Last administered on 11/04/16 15:30; Admin Dose 650 MG; Start 10/25/16 at 11:00 Acetaminophen (Tylenol Supp) 650 mg Q4H PRN [place] PAIN LEVEL 1-3 OR FEVER; Start 10/25/16 at 11:00 Docusate Sodium (Colace) 100 mg Q12H PRN PO CONSTIPATION; Start 10/25/16 at 11: 00 Bisacodyl (Dulcolax Supp) 10 mg DAILY PRN [place] CONSTIPATION; Start 10/25/16 at 11: 00 Amiodarone HCl (Cordarone) 400 mg BID GTB Last administered on 11/01/16 10:22 ; Admin Dose 400 MG; Start 10/25/16 at 21:00 Ascorbic Acid (Vitamin C) 500 mg DAILY GTB Last administered on 11/09/16 11:16 ; Admin Dose 500 MG; Start 10/26/16 at 09:00 Chlorhexidine Gluconate (Peridex) 15 ml Q12 MM Last administered on 11/09/16 21:17; Admin Dose 15 ML; Start 10/25/16 at 21:00 Collagenase (Santyl) 1 applic DAILY TOP Last administered on 11/09/16 11:18; Admin Dose 1 APPLIC; Start 10/26/16 at 09:00 Ferrous Sulfate (Feosol Liquid Cup) 330 mg DAILY GTB Last administered on 11:15; Admin Dose 330 MG; Start 10/26/16 at 09:00 Multivitamins Therapeutic (Theragran) 1 tab DAILY GTB Last administered on 11/09 11:17; Admin Dose 1 TAB; Start 10/26/16 at 09:00 Lactobacillus Acidoph/Bulgaricus (Floranex) 1 tab BID PO Last administered on 21:18; Admin Dose 1 TAB; Start 10/25/16 at 21:00 Fenofibrate (Tricor) 145 mg DAILY PO Last administered on 11/09/16 11:17; Admin Dose 145 MG; Start 10/26/16 at 09:00 IV Flush (NS 10 ml) 10 ml PRN PRN IV IV PROTOCOL; Start 10/25/16 at 11:30 Atorvastatin Calcium (Lipitor) 20 mg HS PO Last administered on 11/09/16 21:18 ; Admin Dose 20 MG; Start 10/25/16 at 21:00 Miscellaneous Information 1 ea NOTE XX ; Start 10/26/16 at 09:30 Glucose (Glutose) 15 gm Q15M PRN PO DECREASED GLUCOSE; Start 10/26/16 at 09:30 Glucose (Glutose) 22.5 gm Q15M PRN PO DECREASED GLUCOSE; Start 10/26/16 at 09:30 Dextrose (D50w Syringe) 25 ml Q15M PRN IV DECREASED GLUCOSE Last administered on 11/04/16 07:38; Admin Dose 25 ML; Start 10/26/16 at 09:30 Dextrose (D50w Syringe) 50 ml Q15M PRN IV DECREASED GLUCOSE; Start 10/26/16 at 09:30 Glucagon (Glucagen) 1 mg Q15M PRN IM DECREASED GLUCOSE; Start 10/26/16 at 09:30 Glucose (Glutose) 15 gm Q15M PRN BUCCAL DECREASED GLUCOSE; Start 10/26/16 at 09: 30 Insulin Glargine (Lantus) 12 unit DAILY@20 SC Last administered on 11/09/16 21 :22; Admin Dose 12 UNIT; Start 10/26/16 at 20:00 Sodium Hypochlorite (Dakin'S (1/4 Strength)) 1 applic DAILY IRR Last administered on 11/09/16 11:39; Admin Dose 1 APPLIC; Start 10/27/16 at 09:00 Insulin Aspart (Novolog Insulin Pen) NOVOLOG *MILD* ALGORI... Q6 SC Last administered on 11/08/16 12:17; Admin Dose 1 UNIT; Start 10/29/16 at 12:00 Linezolid 600 mg 600 mg BID PO Last administered on 11/09/16 21:18; Admin Dose 600 MG; Start 10/30/16 at 21:00 Colistimethate Sodium/Sodium Chloride (Coly-Mycin/NS) 100 ml @ 200 mls/hr Q12 IVPB Last administered on 11/09/16 22:50; Admin Dose 200 MLS/HR; Start at 21:00 Non-Formulary Medication 10 ml QID GTB Last administered on 11/09/16 21:25; Admin Dose 10 ML; Start 10/31/16 at 17:00 Mupirocin 1 applic 1 applic BID TOP Last administered on 11/09/16 21:19; Admin Dose 1 APPLIC; Start 11/02/16 at 16:30 Metronidazole (Flagyl 500 Mg (Pmx)) 100 ml @ 100 mls/hr Q8 IVPB Last administered on 11/10/16 05:42; Admin Dose 100 MLS/HR; Start 11/02/16 at 15:30 Lansoprazole (Prevacid) 30 mg BID@06,18 PO Last administered on 11/10/16 05:42 ; Admin Dose 30 MG; Start 11/06/16 at 18:00 Citric Acid/ Sodium Citrate (Bicitra) 30 ml TID PO Last administered on 21:17; Admin Dose 30 ML; Start 11/09/16 at 13:00 RAYMON BETANCOURT MD Nov 10, 2016 10:18
--- NOTE | 2016-11-10 10:43 | PN ---
Date/Time of Note Date/Time of Note DATE: 11/10/16 TIME: 10:42 Assessment/Plan Lines/Catheters IV Catheter Type (from [facility]): PICC Line Ferreira in Place (from [facility]): Yes Assessment/Plan Chief Complaint/Hosp Course 1. Sacral deep tissue injury s/p excisional debridement 11/01 -offloading -optimize nutrition per feeding tube -vitamin C administration -local care. 2. Lower extremity decubitus ulcerations as above. 3. Shock (sepsis plus or minus hypovolemia, plus or minus cardiac). Improved -Continue judicious fluid management, cardiac optimization and treatment of underlying infections. 4. Urinary tract infection. Continue antibiotics. 5. Significant anemia of unknown etiology. EGD performed. Colonoscopy 10/31. -gi/medical management -tx prn 6. Diabetes. Continue nutrition and medication control. 7. Elevated troponin with non-ST elevation myocardial infarction. Continue cardiac optimization. 8. History of cerebrovascular accident. Continue medical optimization. 9. Peptic ulcer disease. Continue proton pump inhibitors. 10. Coronary artery disease. Continue cardiac optimization. 11. Acute renal insufficiency secondary to above. Continue judicious fluid management. 12. Ventilator-dependent respiratory failure. Continue pulmonary toilet. 13. Dysphagia and tube feeds s/p PEG Thank you, Problems: Subjective 24 Hr Interval Summary No fevers or chills. No cough. No sz/rash. No bloating. No vomiting. Bowel function. No bleeding. Tube feeds. Exam/Review of Systems Vital Signs Vitals Vital Signs Date Time Temp Pulse Resp B/P Pulse Ox O2 Delivery O2 Flow Rate FiO2 11/10/16 09:29 106 11/10/16 09:25 18 98 30 11/10/16 03:44 98.0 97/57 11/09/16 11:34 Mechanical Ventilator Intake and Output 11/09/16 11/09/16 11/10/16 15:00 23:00 07:00 Intake Total 700 ml 880 ml Output Total 700 ml 500 ml Balance 0 ml 380 ml Exam Free Text/Dictation GENERAL: Awake but noncommunicative. HEENT: The pupils are equal and reactive. No scleral icterus. Mucous membranes are moist. NECK: Trach in place. No JVD. PULMONARY: Decreased breath sounds. No wheezing. CARDIAC: S1, S2 ABDOMEN: Soft. PEG in place. EXTREMITIES: Minimal edema. VASCULAR: Capillary refill is 3 seconds. NEUROLOGIC: Awake, but does not follow commands. SKIN: Sacrococcygeal ulcer with packing. Bilateral lower extremity skin injuries. Results Result Diagram: 11/09/16 0636 11/10/16 0545 MINNIE SHIELDS MD Nov 10, 2016 10:43
[2016-11-10] MEDS: CHLORHEXIDINE GLUCONATE 15 ML UD CUP MM SCH ×2 (10:45→22:01)
[2016-11-10] MEDS: ASCORBIC ACID 500 MG TAB GTB SCH (10:45)
[2016-11-10] MEDS: SODIUM HYPOCHLORITE 0.125% 473 ML BTL IRR SCH (10:45)
[2016-11-10] MEDS: SULFASALAZINE GTB SCH ×4 (10:45→22:01)
[2016-11-10] MEDS: MULTIVITAMINS THERAPEUTIC TAB GTB SCH (10:46)
[2016-11-10] MEDS: ZYVOX 600 MG TAB PO SCH (10:46)
[2016-11-10] MEDS: FENOFIBRATE 145 MG TAB PO SCH (10:46)
[2016-11-10] MEDS: MUPIROCIN 2% 22 GM OINT TOP SCH ×2 (10:47→22:02)
[2016-11-10] MEDS: COLLAGENASE 30 GM TUBE TOP SCH (10:47)
[2016-11-10] MEDS: FERROUS SULFATE 60 MG/ML 5ML CUP GTB SCH (10:56)
[2016-11-10] MEDS: COLISTIMETHATE 75 MG in SOD CHLORIDE 0.9% 100 ML IVPB SCH (10:59)
[2016-11-10] MEDS: LACTOBACILLUS CHEW TAB PO SCH ×2 (10:59→21:00)
[2016-11-10] MEDS: CITRIC ACID/NA CITRATE 30 ML CUP PO SCH ×3 (10:59→22:01)
--- NOTE | 2016-11-10 11:27 | PN ---
Date/Time of Note Date/Time of Note DATE: 11/10/16 TIME: 11:21 Assessment/Plan VTE Prophylaxis VTE Prophylaxis Intervention: SCD's Lines/Catheters IV Catheter Type (from Nrs): PICC Line Central line still needed: Yes (IV abx ) Urinary Cath still in place: Yes Reason Cath still needed: urinary retention Assessment/Plan Assessment/Plan 1. S/p Septic shock 2/2 urinary tract infection, Off Pressors now, ID following 2. Ventilator-dependent respiratory failure. Continue vent management by hot roll inspector. 3. Non-ST myocardial infarction with elevated troponin, likely demand ischemia secondary to anemia. 4. Severe symptomatic anemia due to lower Gi bleeding s/p 2 U PRBC transfusion during this hospitalization- s/p EGD 10/27/2016 with finding of gastrostomy tube in the body of the stomach.Otherwise, normal esophagogastroduodenoscopy with no bleeding site identified s/p 10/31/2016 Colonoscopy and finding of an 8 mm ulcer in the proximal descending colon & A 4 cm ulcer in the cecum with Large internal hemorrhoids. 5. THEO due to ATN from sepsis and prerenal azotemia - stable cr 7. Diabetic mellitus . Place the patient on Lantus, continue insulin sliding scale. 8. History of essential hypertension. 9. Dyslipidemia, on statin. 10. Sacral decubitus, continue wound care, status post surgical debridement on 11/01/2016, continue postop care 12. Hematuria, urology has been consulted, resolved 13. PEG tube dysfunction, GI on case 14. Hypokalemia, Hypomagnesemia - pt is having interstitial defect due to IV colistin, d/c bicarbonate drip DVT prophylaxis; SCD, no Heparin/Lovenox due to GI bleeding possible transfer to [place] Subjective 24 Hr Interval Summary Free Text/Dictation no acute events, HCo3 stable off Bicarbonate drip Exam/Review of Systems Vital Signs Vitals Vital Signs Date Time Temp Pulse Resp B/P Pulse Ox O2 Delivery O2 Flow Rate FiO2 11/10/16 09:29 106 11/10/16 09:25 18 98 30 11/10/16 03:44 98.0 97/57 11/09/16 11:34 Mechanical Ventilator Intake and Output 11/09/16 11/09/16 11/10/16 15:00 23:00 07:00 Intake Total 700 ml 880 ml Output Total 700 ml 500 ml Balance 0 ml 380 ml Exam General: The patient is cachectic, Not in acute distress. unresponsive HEENT: Atraumatic, normocephalic. The pupils are equal and round . Neck: Tracheostomy in place Chest: Normal expansion of the thorax during inspiration Lungs: Bilateral Coarse BS + Heart: Normal S1-S2, Regular rhythm and rate. Abdomen: Soft , nontender, nondistended , bowel sounds are present. + PEG tube in place Extremities: Normal to inspection, no edema no cyanosis Results Result Diagram: 11/09/16 0636 11/10/16 0545 Results 24 hrs Laboratory Tests Test 11/09/16 12:39 11/09/16 19:12 11/09/16 21:16 11/09/16 23:57 Bedside Glucose 109 108 124 120 Test 11/10/16 05:00 11/10/16 05:40 11/10/16 05:45 11/10/16 05:46 Blood Gas Specimen Source Blood arterial Arterial Blood Date Drawn 11/10/2016 6:00:19 AM Arterial Blood pH (Temp corrected) 7.459 H Arterial Blood pCO2 (Temp correct) 26.0 L Arterial Blood pO2 (Temp corrected) 68.8 L Arterial Blood HCO3 18.0 L Arterial Blood Base Excess -4.5 L Arterial Blood Oxygen Saturation 94.3 L Vinayak Test ACCEPTAB Arterial Blood Gas Puncture Site Right Radial Arterial Blood Carboxyhemoglobin 0.3 Arterial Blood Methemoglobin 0.4 Blood Gas A-a O2 Differential 114.6 H Oxyhemoglobin Percent 93.6 Total Hemoglobin 11.3 L Blood Gas Temperature 37.0 Blood Gas Respiration Rate 12.0 Blood Gas Actual Respiration Rate 12 Blood Gas Modality VENT - AC FiO2 30.0 Blood Gas Tidal Volume 550.0 Blood Gas Low PEEP Setting 5.0 Blood Gas Notified Whom MA Blood Gas Notified Time 11/10/2016 6:08:20 AM Prothrombin Time 22.8 H Prothrombin Time Ratio 1.8 INR International Normalized Ratio 1.99 Activated Partial Thromboplast Time 51.7 H Sodium Level 134 L Potassium Level 3.6 Chloride Level 108 Carbon Dioxide Level 17 L Anion Gap 13 Blood Urea Nitrogen 15 Creatinine 1.08 Glucose Level 106 Calcium Level 8.7 Bedside Glucose 122 Medications Medications Current Medications Ondansetron HCl (Zofran Inj) 4 mg Q6H PRN IV NAUSEA AND/OR VOMITING Last administered on 10/27/16 13:51; Admin Dose 4 MG; Start 10/25/16 at 11:00 Nitroglycerin (Nitroglycerin (Sl Tab) 0.4 Mg) 1 tab Q5M PRN SL CHEST PAIN; Start 10/25/16 at 11:00 Acetaminophen (Tylenol Tab) 650 mg Q6H PRN PO PAIN LEVEL 1-3 OR FEVER Last administered on 11/04/16 15:30; Admin Dose 650 MG; Start 10/25/16 at 11:00 Acetaminophen (Tylenol Supp) 650 mg Q4H PRN [place] PAIN LEVEL 1-3 OR FEVER; Start 10/25/16 at 11:00 Docusate Sodium (Colace) 100 mg Q12H PRN PO CONSTIPATION; Start 10/25/16 at 11: 00 Bisacodyl (Dulcolax Supp) 10 mg DAILY PRN [place] CONSTIPATION; Start 10/25/16 at 11: 00 Amiodarone HCl (Cordarone) 400 mg BID GTB Last administered on 11/01/16 10:22 ; Admin Dose 400 MG; Start 10/25/16 at 21:00 Ascorbic Acid (Vitamin C) 500 mg DAILY GTB Last administered on 11/10/16 10:45 ; Admin Dose 500 MG; Start 10/26/16 at 09:00 Chlorhexidine Gluconate (Peridex) 15 ml Q12 MM Last administered on 11/10/16 10:45; Admin Dose 15 ML; Start 10/25/16 at 21:00 Collagenase (Santyl) 1 applic DAILY TOP Last administered on 11/10/16 10:47; Admin Dose 1 APPLIC; Start 10/26/16 at 09:00 Ferrous Sulfate (Feosol Liquid Cup) 330 mg DAILY GTB Last administered on 10:56; Admin Dose 330 MG; Start 10/26/16 at 09:00 Multivitamins Therapeutic (Theragran) 1 tab DAILY GTB Last administered on 11/10 10:46; Admin Dose 1 TAB; Start 10/26/16 at 09:00 Lactobacillus Acidoph/Bulgaricus (Floranex) 1 tab BID PO Last administered on 10:59; Admin Dose 1 TAB; Start 10/25/16 at 21:00 Fenofibrate (Tricor) 145 mg DAILY PO Last administered on 11/10/16 10:46; Admin Dose 145 MG; Start 10/26/16 at 09:00 IV Flush (NS 10 ml) 10 ml PRN PRN IV IV PROTOCOL; Start 10/25/16 at 11:30 Atorvastatin Calcium (Lipitor) 20 mg HS PO Last administered on 11/09/16 21:18 ; Admin Dose 20 MG; Start 10/25/16 at 21:00 Miscellaneous Information 1 ea NOTE XX ; Start 10/26/16 at 09:30 Glucose (Glutose) 15 gm Q15M PRN PO DECREASED GLUCOSE; Start 10/26/16 at 09:30 Glucose (Glutose) 22.5 gm Q15M PRN PO DECREASED GLUCOSE; Start 10/26/16 at 09:30 Dextrose (D50w Syringe) 25 ml Q15M PRN IV DECREASED GLUCOSE Last administered on 11/04/16 07:38; Admin Dose 25 ML; Start 10/26/16 at 09:30 Dextrose (D50w Syringe) 50 ml Q15M PRN IV DECREASED GLUCOSE; Start 10/26/16 at 09:30 Glucagon (Glucagen) 1 mg Q15M PRN IM DECREASED GLUCOSE; Start 10/26/16 at 09:30 Glucose (Glutose) 15 gm Q15M PRN BUCCAL DECREASED GLUCOSE; Start 10/26/16 at 09: 30 Insulin Glargine (Lantus) 12 unit DAILY@20 SC Last administered on 11/09/16 21 :22; Admin Dose 12 UNIT; Start 10/26/16 at 20:00 Sodium Hypochlorite (Dakin'S (1/4 Strength)) 1 applic DAILY IRR Last administered on 11/10/16 10:45; Admin Dose 1 APPLIC; Start 10/27/16 at 09:00 Insulin Aspart (Novolog Insulin Pen) NOVOLOG *MILD* ALGORI... Q6 SC Last administered on 11/08/16 12:17; Admin Dose 1 UNIT; Start 10/29/16 at 12:00 Linezolid 600 mg 600 mg BID PO Last administered on 11/10/16 10:46; Admin Dose 600 MG; Start 10/30/16 at 21:00 Colistimethate Sodium/Sodium Chloride (Coly-Mycin/NS) 100 ml @ 200 mls/hr Q12 IVPB Last administered on 11/10/16 10:59; Admin Dose 200 MLS/HR; Start at 21:00 Non-Formulary Medication 10 ml QID GTB Last administered on 11/10/16 10:45; Admin Dose 10 ML; Start 10/31/16 at 17:00 Mupirocin 1 applic 1 applic BID TOP Last administered on 11/10/16 10:47; Admin Dose 1 APPLIC; Start 11/02/16 at 16:30 Metronidazole (Flagyl 500 Mg (Pmx)) 100 ml @ 100 mls/hr Q8 IVPB Last administered on 11/10/16 05:42; Admin Dose 100 MLS/HR; Start 11/02/16 at 15:30 Lansoprazole (Prevacid) 30 mg BID@06,18 PO Last administered on 11/10/16 05:42 ; Admin Dose 30 MG; Start 11/06/16 at 18:00 Citric Acid/ Sodium Citrate (Bicitra) 30 ml TID PO Last administered on 10:59; Admin Dose 30 ML; Start 11/09/16 at 13:00 DAO PÉREZ MD Nov 10, 2016 11:27
--- NOTE | 2016-11-10 12:35 | CONS ---
Date/Time of Note Date/Time of Note DATE: 11/10/16 TIME: 12:34 Assessment/Plan Assessment/Plan Additional Assessment/Plan Sepsis Acute blood loss anemia Elevated troponin likely secondary to above Respiratory failure Paroxysmal atrial fibrillation, currently sinus rhythm Paroxysmal atrial tachycardia Preserved ejection fraction Acute kidney injury, improving -Patient remains in sinus rhythm, supplement potassium to maintain above 4.0 and magnesium above 2.0. No anticoagulation at the current time given recurrent hematuria and anemia. Consultation Date/Type/Reason Admit Date/Time Oct 25, 2016 at 10:54 Initial Consult Date 10/25/16 Type of Consultation: cv Referring Provider: DILIP ARELLANO MD 24 HR Interval Summary Free Text/Dictation Patient seen and examined Exam/Review of Systems Vital Signs Vitals Vital Signs Date Time Temp Pulse Resp B/P Pulse Ox O2 Delivery O2 Flow Rate FiO2 11/10/16 12:28 112 11/10/16 11:48 97.5 24 116/70 100 11/10/16 11:25 30 11/09/16 11:34 Mechanical Ventilator Intake and Output 11/09/16 11/09/16 11/10/16 15:00 23:00 07:00 Intake Total 700 ml 880 ml Output Total 700 ml 500 ml Balance 0 ml 380 ml Exam No apparent distress Head: normocephalic Neck: other (Tracheostomy) Respiratory: other (Coarse breath sounds bilaterally, no wheezing) Cardiovascular: other (S1-S2 heard), regular rate and rhythm Gastrointestinal: bowel sounds, non-tender, soft Extremities: edema Results Result Diagram: 11/09/16 0636 11/10/16 0545 Results 24 hrs Laboratory Tests Test 11/09/16 12:39 11/09/16 19:12 11/09/16 21:16 11/09/16 23:57 Bedside Glucose 109 108 124 120 Test 11/10/16 05:00 11/10/16 05:40 11/10/16 05:45 11/10/16 05:46 Blood Gas Specimen Source Blood arterial Arterial Blood Date Drawn 11/10/2016 6:00:19 AM Arterial Blood pH (Temp corrected) 7.459 H Arterial Blood pCO2 (Temp correct) 26.0 L Arterial Blood pO2 (Temp corrected) 68.8 L Arterial Blood HCO3 18.0 L Arterial Blood Base Excess -4.5 L Arterial Blood Oxygen Saturation 94.3 L Vinayak Test ACCEPTAB Arterial Blood Gas Puncture Site Right Radial Arterial Blood Carboxyhemoglobin 0.3 Arterial Blood Methemoglobin 0.4 Blood Gas A-a O2 Differential 114.6 H Oxyhemoglobin Percent 93.6 Total Hemoglobin 11.3 L Blood Gas Temperature 37.0 Blood Gas Respiration Rate 12.0 Blood Gas Actual Respiration Rate 12 Blood Gas Modality VENT - AC FiO2 30.0 Blood Gas Tidal Volume 550.0 Blood Gas Low PEEP Setting 5.0 Blood Gas Notified Whom MA Blood Gas Notified Time 11/10/2016 6:08:20 AM Prothrombin Time 22.8 H Prothrombin Time Ratio 1.8 INR International Normalized Ratio 1.99 Activated Partial Thromboplast Time 51.7 H Sodium Level 134 L Potassium Level 3.6 Chloride Level 108 Carbon Dioxide Level 17 L Anion Gap 13 Blood Urea Nitrogen 15 Creatinine 1.08 Glucose Level 106 Calcium Level 8.7 Bedside Glucose 122 Test 11/10/16 12:00 Bedside Glucose 115 Medications Medications Current Medications Ondansetron HCl (Zofran Inj) 4 mg Q6H PRN IV NAUSEA AND/OR VOMITING Last administered on 10/27/16 13:51; Admin Dose 4 MG; Start 10/25/16 at 11:00 Nitroglycerin (Nitroglycerin (Sl Tab) 0.4 Mg) 1 tab Q5M PRN SL CHEST PAIN; Start 10/25/16 at 11:00 Acetaminophen (Tylenol Tab) 650 mg Q6H PRN PO PAIN LEVEL 1-3 OR FEVER Last administered on 11/04/16 15:30; Admin Dose 650 MG; Start 10/25/16 at 11:00 Acetaminophen (Tylenol Supp) 650 mg Q4H PRN [place] PAIN LEVEL 1-3 OR FEVER; Start 10/25/16 at 11:00 Docusate Sodium (Colace) 100 mg Q12H PRN PO CONSTIPATION; Start 10/25/16 at 11: 00 Bisacodyl (Dulcolax Supp) 10 mg DAILY PRN [place] CONSTIPATION; Start 10/25/16 at 11: 00 Amiodarone HCl (Cordarone) 400 mg BID GTB Last administered on 11/01/16 10:22 ; Admin Dose 400 MG; Start 10/25/16 at 21:00 Ascorbic Acid (Vitamin C) 500 mg DAILY GTB Last administered on 11/10/16 10:45 ; Admin Dose 500 MG; Start 10/26/16 at 09:00 Chlorhexidine Gluconate (Peridex) 15 ml Q12 MM Last administered on 11/10/16 10:45; Admin Dose 15 ML; Start 10/25/16 at 21:00 Collagenase (Santyl) 1 applic DAILY TOP Last administered on 11/10/16 10:47; Admin Dose 1 APPLIC; Start 10/26/16 at 09:00 Ferrous Sulfate (Feosol Liquid Cup) 330 mg DAILY GTB Last administered on 10:56; Admin Dose 330 MG; Start 10/26/16 at 09:00 Multivitamins Therapeutic (Theragran) 1 tab DAILY GTB Last administered on 11/10 10:46; Admin Dose 1 TAB; Start 10/26/16 at 09:00 Lactobacillus Acidoph/Bulgaricus (Floranex) 1 tab BID PO Last administered on 10:59; Admin Dose 1 TAB; Start 10/25/16 at 21:00 Fenofibrate (Tricor) 145 mg DAILY PO Last administered on 11/10/16 10:46; Admin Dose 145 MG; Start 10/26/16 at 09:00 IV Flush (NS 10 ml) 10 ml PRN PRN IV IV PROTOCOL; Start 10/25/16 at 11:30 Atorvastatin Calcium (Lipitor) 20 mg HS PO Last administered on 11/09/16 21:18 ; Admin Dose 20 MG; Start 10/25/16 at 21:00 Miscellaneous Information 1 ea NOTE XX ; Start 10/26/16 at 09:30 Glucose (Glutose) 15 gm Q15M PRN PO DECREASED GLUCOSE; Start 10/26/16 at 09:30 Glucose (Glutose) 22.5 gm Q15M PRN PO DECREASED GLUCOSE; Start 10/26/16 at 09:30 Dextrose (D50w Syringe) 25 ml Q15M PRN IV DECREASED GLUCOSE Last administered on 11/04/16 07:38; Admin Dose 25 ML; Start 10/26/16 at 09:30 Dextrose (D50w Syringe) 50 ml Q15M PRN IV DECREASED GLUCOSE; Start 10/26/16 at 09:30 Glucagon (Glucagen) 1 mg Q15M PRN IM DECREASED GLUCOSE; Start 10/26/16 at 09:30 Glucose (Glutose) 15 gm Q15M PRN BUCCAL DECREASED GLUCOSE; Start 10/26/16 at 09: 30 Insulin Glargine (Lantus) 12 unit DAILY@20 SC Last administered on 11/09/16 21 :22; Admin Dose 12 UNIT; Start 10/26/16 at 20:00 Sodium Hypochlorite (Dakin'S (1/4 Strength)) 1 applic DAILY IRR Last administered on 11/10/16 10:45; Admin Dose 1 APPLIC; Start 10/27/16 at 09:00 Insulin Aspart (Novolog Insulin Pen) NOVOLOG *MILD* ALGORI... Q6 SC Last administered on 11/08/16 12:17; Admin Dose 1 UNIT; Start 10/29/16 at 12:00 Linezolid 600 mg 600 mg BID PO Last administered on 11/10/16 10:46; Admin Dose 600 MG; Start 10/30/16 at 21:00 Colistimethate Sodium/Sodium Chloride (Coly-Mycin/NS) 100 ml @ 200 mls/hr Q12 IVPB Last administered on 11/10/16 10:59; Admin Dose 200 MLS/HR; Start at 21:00 Non-Formulary Medication 10 ml QID GTB Last administered on 11/10/16 10:45; Admin Dose 10 ML; Start 10/31/16 at 17:00 Mupirocin 1 applic 1 applic BID TOP Last administered on 11/10/16 10:47; Admin Dose 1 APPLIC; Start 11/02/16 at 16:30 Metronidazole (Flagyl 500 Mg (Pmx)) 100 ml @ 100 mls/hr Q8 IVPB Last administered on 11/10/16 05:42; Admin Dose 100 MLS/HR; Start 11/02/16 at 15:30 Lansoprazole (Prevacid) 30 mg BID@06,18 PO Last administered on 11/10/16 05:42 ; Admin Dose 30 MG; Start 11/06/16 at 18:00 Citric Acid/ Sodium Citrate (Bicitra) 30 ml TID PO Last administered on 10:59; Admin Dose 30 ML; Start 11/09/16 at 13:00 Ervin Ceja DO Nov 10, 2016 12:35
[2016-11-10 13:01] LABS: HEMATOCRIT 30.5 % (42.0-52.0); HEMOGLOBIN 9.3 g/dl (14.0-18.0); MEAN CORPUSCULAR HEMOGLOBIN 27.2 pg (29.0-33.0); MEAN CORPUSCULAR HGB CONC 30.5 g/dl (32.0-37.0); MEAN CORPUSCULAR VOLUME 89.2 fl (82.0-101.0); MEAN PLATELET VOLUME 12.1 fl (7.4-10.4); PLATELET COUNT 277 10^3/UL (140-415); RED BLOOD COUNT 3.42 10^6/ul (4.70-6.10); RED CELL DISTRIBUTION WIDTH 18.7 % (11.5-14.5); WHITE BLOOD COUNT 10.4 10^3/ul (4.8-10.8)
[2016-11-10 14:42] LABS: LYMPHOCYTES # 1.8 10^3/ul (0.8-2.9); MONOCYTE # 0.2 10^3/ul (0.3-0.9); NEUTROPHIL # 7.9 10^3/ul (1.6-7.5)
--- NOTE | 2016-11-10 16:11 | CONS ---
Date/Time of Note Date/Time of Note DATE: 11/10/16 TIME: 16:10 Assessment/Plan Assessment/Plan Chief Complaint/Hosp Course SUBJECTIVE: No acute events. The patient is lying comfortably in bed, tolerates TF, no fevers. INDWELLINGS: Trach, PEG, Ferreira, rectal tube and PICC line placed on 10/25/2016. PHYSICAL EXAMINATION: GENERAL: This is a fragile, chronically ill-appearing, elderly man who is noncommunicative, in no distress. HEENT: Head atraumatic, normocephalic. Sclerae anicteric. Buccal mucosa dry. NECK: Supple. Tracheostomy present. CHEST: Rise symmetrical. Breath sounds diminished to bases. HEART: S1, S2. ABDOMEN: Distended, soft. Bowel tones present. EXTREMITIES: Without cyanosis. ASSESSMENT: 1. Resolving sepsis, status post shock. 2. Ileus with dilatation of the cecum and transverse colon per CT of the abdomen, status post rectal tube placement, no volvulus per CT, gastroenterology on case. 4. Status post Proteus mirabilis bacteremia. 5. Status post Escherichia coli UTI. 6. Methicillin-resistant Staphylococcus aureus nares colonization. 7. Unstageable sacral decubitus, status post debridement on 11/01/2016. 8. History of cerebrovascular accident and hematuria. PLAN: Stable, completed abx, will garrison cx prn, GI/surgical/urology rec-s [facility] staff Problems: Consultation Date/Type/Reason Admit Date/Time Oct 25, 2016 at 10:54 Initial Consult Date 10/25/16 Type of Consultation: ID Referring Provider: DILIP ARELLANO MD Exam/Review of Systems Vital Signs Vitals Vital Signs Date Time Temp Pulse Resp B/P Pulse Ox O2 Delivery O2 Flow Rate FiO2 11/10/16 15:30 107 20 94 30 11/10/16 15:04 97.4 92/59 11/09/16 11:34 Mechanical Ventilator Intake and Output 11/09/16 11/09/16 11/10/16 15:00 23:00 07:00 Intake Total 700 ml 880 ml Output Total 700 ml 500 ml Balance 0 ml 380 ml Results Result Diagram: 11/10/16 0455 11/10/16 0545 Results 24 hrs Laboratory Tests Test 11/09/16 19:12 11/09/16 21:16 11/09/16 23:57 11/10/16 04:55 Bedside Glucose 108 124 120 White Blood Count 10.4 Red Blood Count 3.42 L Hemoglobin 9.3 L Hematocrit 30.5 L Mean Corpuscular Volume 89.2 Mean Corpuscular Hemoglobin 27.2 L Mean Corpuscular Hemoglobin Concent 30.5 L Red Cell Distribution Width 18.7 H Platelet Count 277 # Mean Platelet Volume 12.1 H Neutrophils % 76.0 Band Neutrophils % 4.0 Lymphocytes % 17.0 Reactive Lymphocytes % 1.0 Monocytes % 2.0 Blast Cells % Neutrophils # 7.9 H Lymphocytes # 1.8 Monocytes # 0.2 L Blastocytes # Differential Comment MANUAL DIFF Giant Platelets OCCASIONAL Test 11/10/16 05:00 11/10/16 05:40 11/10/16 05:45 11/10/16 05:46 Blood Gas Specimen Source Blood arterial Arterial Blood Date Drawn 11/10/2016 6:00:19 AM Arterial Blood pH (Temp corrected) 7.459 H Arterial Blood pCO2 (Temp correct) 26.0 L Arterial Blood pO2 (Temp corrected) 68.8 L Arterial Blood HCO3 18.0 L Arterial Blood Base Excess -4.5 L Arterial Blood Oxygen Saturation 94.3 L Vinayak Test ACCEPTAB Arterial Blood Gas Puncture Site Right Radial Arterial Blood Carboxyhemoglobin 0.3 Arterial Blood Methemoglobin 0.4 Blood Gas A-a O2 Differential 114.6 H Oxyhemoglobin Percent 93.6 Total Hemoglobin 11.3 L Blood Gas Temperature 37.0 Blood Gas Respiration Rate 12.0 Blood Gas Actual Respiration Rate 12 Blood Gas Modality VENT - AC FiO2 30.0 Blood Gas Tidal Volume 550.0 Blood Gas Low PEEP Setting 5.0 Blood Gas Notified Whom MA Blood Gas Notified Time 11/10/2016 6:08:20 AM Prothrombin Time 22.8 H Prothrombin Time Ratio 1.8 INR International Normalized Ratio 1.99 Activated Partial Thromboplast Time 51.7 H Sodium Level 134 L Potassium Level 3.6 Chloride Level 108 Carbon Dioxide Level 17 L Anion Gap 13 Blood Urea Nitrogen 15 Creatinine 1.08 Glucose Level 106 Calcium Level 8.7 Bedside Glucose 122 Test 11/10/16 12:00 Bedside Glucose 115 Medications Medications Current Medications Ondansetron HCl (Zofran Inj) 4 mg Q6H PRN IV NAUSEA AND/OR VOMITING Last administered on 10/27/16t 13:51; Admin Dose 4 MG; Start 10/25/16 at 11:00 Nitroglycerin (Nitroglycerin (Sl Tab) 0.4 Mg) 1 tab Q5M PRN SL CHEST PAIN; Start 10/25/16 at 11:00 Acetaminophen (Tylenol Tab) 650 mg Q6H PRN PO PAIN LEVEL 1-3 OR FEVER Last administered on 11/04/16 15:30; Admin Dose 650 MG; Start 10/25/16 at 11:00 Acetaminophen (Tylenol Supp) 650 mg Q4H PRN [place] PAIN LEVEL 1-3 OR FEVER; Start 10/25/16 at 11:00 Docusate Sodium (Colace) 100 mg Q12H PRN PO CONSTIPATION; Start 10/25/16 at 11: 00 Bisacodyl (Dulcolax Supp) 10 mg DAILY PRN [place] CONSTIPATION; Start 10/25/16 at 11: 00 Ascorbic Acid (Vitamin C) 500 mg DAILY GTB Last administered on 11/10/16 10:45 ; Admin Dose 500 MG; Start 10/26/16 at 09:00 Chlorhexidine Gluconate (Peridex) 15 ml Q12 MM Last administered on 11/10/16 10:45; Admin Dose 15 ML; Start 10/25/16 at 21:00 Collagenase (Santyl) 1 applic DAILY TOP Last administered on 11/10/16 10:47; Admin Dose 1 APPLIC; Start 10/26/16 at 09:00 Ferrous Sulfate (Feosol Liquid Cup) 330 mg DAILY GTB Last administered on 10:56; Admin Dose 330 MG; Start 10/26/16 at 09:00 Multivitamins Therapeutic (Theragran) 1 tab DAILY GTB Last administered on 11/10 10:46; Admin Dose 1 TAB; Start 10/26/16 at 09:00 Lactobacillus Acidoph/Bulgaricus (Floranex) 1 tab BID PO Last administered on 10:59; Admin Dose 1 TAB; Start 10/25/16 at 21:00 Fenofibrate (Tricor) 145 mg DAILY PO Last administered on 11/10/16 10:46; Admin Dose 145 MG; Start 10/26/16 at 09:00 IV Flush (NS 10 ml) 10 ml PRN PRN IV IV PROTOCOL; Start 10/25/16 at 11:30 Atorvastatin Calcium (Lipitor) 20 mg HS PO Last administered on 11/09/16 21:18 ; Admin Dose 20 MG; Start 10/25/16 at 21:00 Miscellaneous Information 1 ea NOTE XX ; Start 10/26/16 at 09:30 Glucose (Glutose) 15 gm Q15M PRN PO DECREASED GLUCOSE; Start 10/26/16 at 09:30 Glucose (Glutose) 22.5 gm Q15M PRN PO DECREASED GLUCOSE; Start 10/26/16 at 09:30 Dextrose (D50w Syringe) 25 ml Q15M PRN IV DECREASED GLUCOSE Last administered on 11/04/16 07:38; Admin Dose 25 ML; Start 10/26/16 at 09:30 Dextrose (D50w Syringe) 50 ml Q15M PRN IV DECREASED GLUCOSE; Start 10/26/16 at 09:30 Glucagon (Glucagen) 1 mg Q15M PRN IM DECREASED GLUCOSE; Start 10/26/16 at 09:30 Glucose (Glutose) 15 gm Q15M PRN BUCCAL DECREASED GLUCOSE; Start 10/26/16 at 09: 30 Insulin Glargine (Lantus) 12 unit DAILY@20 SC Last administered on 11/09/16 21 :22; Admin Dose 12 UNIT; Start 10/26/16 at 20:00 Sodium Hypochlorite (Dakin'S (1/4 Strength)) 1 applic DAILY IRR Last administered on 11/10/16 10:45; Admin Dose 1 APPLIC; Start 10/27/16 at 09:00 Insulin Aspart (Novolog Insulin Pen) NOVOLOG *MILD* ALGORI... Q6 SC Last administered on 11/08/16 12:17; Admin Dose 1 UNIT; Start 10/29/16 at 12:00 Linezolid 600 mg 600 mg BID PO Last administered on 11/10/16 10:46; Admin Dose 600 MG; Start 10/30/16 at 21:00 Colistimethate Sodium/Sodium Chloride (Coly-Mycin/NS) 100 ml @ 200 mls/hr Q12 IVPB Last administered on 11/10/16 10:59; Admin Dose 200 MLS/HR; Start at 21:00 Non-Formulary Medication 10 ml QID GTB Last administered on 11/10/16 14:55; Admin Dose 10 ML; Start 10/31/16 at 17:00 Mupirocin 1 applic 1 applic BID TOP Last administered on 11/10/16 10:47; Admin Dose 1 APPLIC; Start 11/02/16 at 16:30 Metronidazole (Flagyl 500 Mg (Pmx)) 100 ml @ 100 mls/hr Q8 IVPB Last administered on 11/10/16 13:27; Admin Dose 100 MLS/HR; Start 11/02/16 at 15:30 Lansoprazole (Prevacid) 30 mg BID@06,18 PO Last administered on 11/10/16 05:42 ; Admin Dose 30 MG; Start 11/06/16 at 18:00 Citric Acid/ Sodium Citrate (Bicitra) 30 ml TID PO Last administered on 13:34; Admin Dose 30 ML; Start 11/09/16 at 13:00 Amiodarone HCl (Cordarone) 200 mg BID GTB ; Start 11/10/16 at 21:00 ADITYA CALLAHAN NP Nov 10, 2016 16:11
--- NOTE | 2016-11-10 16:35 | CONS ---
Date/Time of Note Date/Time of Note DATE: 11/10/16 TIME: 16:34 Consult Date/Type/Reason Admit Date/Time Oct 25, 2016 at 10:54 Initial Consult Date 10/25/16 Type of Consultation: pulmonary Ordering Provider: DILIP ARELLANO MD Subjective No significant changes remains unchanged Objective Vital Signs Date Time Temp Pulse Resp B/P Pulse Ox O2 Delivery O2 Flow Rate FiO2 11/10/16 16:18 107 11/10/16 15:30 20 94 30 11/10/16 15:04 97.4 92/59 11/09/16 11:34 Mechanical Ventilator Intake and Output 11/09/16 11/09/16 11/10/16 15:00 23:00 07:00 Intake Total 700 ml 880 ml Output Total 700 ml 500 ml Balance 0 ml 380 ml Exam PHYSICAL EXAMINATION GENERAL: Elderly gentleman, on mechanical ventilation VITAL SIGNS: see below. HEENT: Pupils equal, round, and reactive to light. Tracheostomy site clean and intact. CARDIAC: S1, S2, no added sounds or murmurs CHEST: Diminished air entry bilaterally. ABDOMEN: Mildly distended. Bowel sounds present. EXTREMITIES: No cyanosis, clubbing or edema. NEUROLOGIC: Unable to assess Results/Medications Result Diagram: 11/10/16 0455 11/10/16 0545 Results 24 hrs Laboratory Tests Test 11/09/16 19:12 11/09/16 21:16 11/09/16 23:57 11/10/16 04:55 Bedside Glucose 108 124 120 White Blood Count 10.4 Red Blood Count 3.42 L Hemoglobin 9.3 L Hematocrit 30.5 L Mean Corpuscular Volume 89.2 Mean Corpuscular Hemoglobin 27.2 L Mean Corpuscular Hemoglobin Concent 30.5 L Red Cell Distribution Width 18.7 H Platelet Count 277 # Mean Platelet Volume 12.1 H Neutrophils % 76.0 Band Neutrophils % 4.0 Lymphocytes % 17.0 Reactive Lymphocytes % 1.0 Monocytes % 2.0 Blast Cells % Neutrophils # 7.9 H Lymphocytes # 1.8 Monocytes # 0.2 L Blastocytes # Differential Comment MANUAL DIFF Giant Platelets OCCASIONAL Test 11/10/16 05:00 11/10/16 05:40 11/10/16 05:45 11/10/16 05:46 Blood Gas Specimen Source Blood arterial Arterial Blood Date Drawn 11/10/2016 6:00:19 AM Arterial Blood pH (Temp corrected) 7.459 H Arterial Blood pCO2 (Temp correct) 26.0 L Arterial Blood pO2 (Temp corrected) 68.8 L Arterial Blood HCO3 18.0 L Arterial Blood Base Excess -4.5 L Arterial Blood Oxygen Saturation 94.3 L Vinayak Test ACCEPTAB Arterial Blood Gas Puncture Site Right Radial Arterial Blood Carboxyhemoglobin 0.3 Arterial Blood Methemoglobin 0.4 Blood Gas A-a O2 Differential 114.6 H Oxyhemoglobin Percent 93.6 Total Hemoglobin 11.3 L Blood Gas Temperature 37.0 Blood Gas Respiration Rate 12.0 Blood Gas Actual Respiration Rate 12 Blood Gas Modality VENT - AC FiO2 30.0 Blood Gas Tidal Volume 550.0 Blood Gas Low PEEP Setting 5.0 Blood Gas Notified Whom MA Blood Gas Notified Time 11/10/2016 6:08:20 AM Prothrombin Time 22.8 H Prothrombin Time Ratio 1.8 INR International Normalized Ratio 1.99 Activated Partial Thromboplast Time 51.7 H Sodium Level 134 L Potassium Level 3.6 Chloride Level 108 Carbon Dioxide Level 17 L Anion Gap 13 Blood Urea Nitrogen 15 Creatinine 1.08 Glucose Level 106 Calcium Level 8.7 Bedside Glucose 122 Test 11/10/16 12:00 Bedside Glucose 115 Medications Current Medications Ondansetron HCl (Zofran Inj) 4 mg Q6H PRN IV NAUSEA AND/OR VOMITING Last administered on 10/27/16 13:51; Admin Dose 4 MG; Start 10/25/16 at 11:00 Nitroglycerin (Nitroglycerin (Sl Tab) 0.4 Mg) 1 tab Q5M PRN SL CHEST PAIN; Start 10/25/16 at 11:00 Acetaminophen (Tylenol Tab) 650 mg Q6H PRN PO PAIN LEVEL 1-3 OR FEVER Last administered on 11/04/16 15:30; Admin Dose 650 MG; Start 10/25/16 at 11:00 Acetaminophen (Tylenol Supp) 650 mg Q4H PRN [place] PAIN LEVEL 1-3 OR FEVER; Start 10/25/16 at 11:00 Docusate Sodium (Colace) 100 mg Q12H PRN PO CONSTIPATION; Start 10/25/16 at 11: 00 Bisacodyl (Dulcolax Supp) 10 mg DAILY PRN [place] CONSTIPATION; Start 10/25/16 at 11: 00 Ascorbic Acid (Vitamin C) 500 mg DAILY GTB Last administered on 11/10/16 10:45 ; Admin Dose 500 MG; Start 10/26/16 at 09:00 Chlorhexidine Gluconate (Peridex) 15 ml Q12 MM Last administered on 11/10/16 10:45; Admin Dose 15 ML; Start 10/25/16 at 21:00 Collagenase (Santyl) 1 applic DAILY TOP Last administered on 11/10/16 10:47; Admin Dose 1 APPLIC; Start 10/26/16 at 09:00 Ferrous Sulfate (Feosol Liquid Cup) 330 mg DAILY GTB Last administered on 10:56; Admin Dose 330 MG; Start 10/26/16 at 09:00 Multivitamins Therapeutic (Theragran) 1 tab DAILY GTB Last administered on 11/10 10:46; Admin Dose 1 TAB; Start 10/26/16 at 09:00 Lactobacillus Acidoph/Bulgaricus (Floranex) 1 tab BID PO Last administered on 10:59; Admin Dose 1 TAB; Start 10/25/16 at 21:00 Fenofibrate (Tricor) 145 mg DAILY PO Last administered on 11/10/16 10:46; Admin Dose 145 MG; Start 10/26/16 at 09:00 IV Flush (NS 10 ml) 10 ml PRN PRN IV IV PROTOCOL; Start 10/25/16 at 11:30 Atorvastatin Calcium (Lipitor) 20 mg HS PO Last administered on 11/09/16 21:18 ; Admin Dose 20 MG; Start 10/25/16 at 21:00 Miscellaneous Information 1 ea NOTE XX ; Start 10/26/16 at 09:30 Glucose (Glutose) 15 gm Q15M PRN PO DECREASED GLUCOSE; Start 10/26/16 at 09:30 Glucose (Glutose) 22.5 gm Q15M PRN PO DECREASED GLUCOSE; Start 10/26/16 at 09:30 Dextrose (D50w Syringe) 25 ml Q15M PRN IV DECREASED GLUCOSE Last administered on 11/04/16 07:38; Admin Dose 25 ML; Start 10/26/16 at 09:30 Dextrose (D50w Syringe) 50 ml Q15M PRN IV DECREASED GLUCOSE; Start 10/26/16 at 09:30 Glucagon (Glucagen) 1 mg Q15M PRN IM DECREASED GLUCOSE; Start 10/26/16 at 09:30 Glucose (Glutose) 15 gm Q15M PRN BUCCAL DECREASED GLUCOSE; Start 10/26/16 at 09: 30 Insulin Glargine (Lantus) 12 unit DAILY@20 SC Last administered on 11/09/16 21 :22; Admin Dose 12 UNIT; Start 10/26/16 at 20:00 Sodium Hypochlorite (Dakin'S (1/4 Strength)) 1 applic DAILY IRR Last administered on 11/10/16 10:45; Admin Dose 1 APPLIC; Start 10/27/16 at 09:00 Insulin Aspart (Novolog Insulin Pen) NOVOLOG *MILD* ALGORI... Q6 SC Last administered on 11/08/16 12:17; Admin Dose 1 UNIT; Start 10/29/16 at 12:00 Non-Formulary Medication 10 ml QID GTB Last administered on 11/10/16 14:55; Admin Dose 10 ML; Start 10/31/16 at 17:00 Mupirocin (Bactroban) 1 applic BID TOP Last administered on 11/10/16 10:47; Admin Dose 1 APPLIC; Start 11/02/16 at 16:30 Lansoprazole (Prevacid) 30 mg BID@06,18 PO Last administered on 11/10/16 05:42 ; Admin Dose 30 MG; Start 11/06/16 at 18:00 Citric Acid/ Sodium Citrate (Bicitra) 30 ml TID PO Last administered on 13:34; Admin Dose 30 ML; Start 11/09/16 at 13:00 Amiodarone HCl (Cordarone) 200 mg BID GTB ; Start 11/10/16 at 21:00 Assessment/Plan Chief Complaint/Hosp Course Assessment 1. Status post Septic shock secondary to urinary tract infection cultures demonstrating gram-negative organism 2. Severe anemia possibly secondary to chronic disease with component of GI bleeding status post colonoscopy and endoscopy 3. Metabolic acidosis 4. Chronic renal insufficiency component of dehydration improved 5. Vent dependent respiratory failure 6. Chronic encephalopathy 7. Dysphagia with G-tube 8. Urinary retention and scrotal edema managed by urology Plan 1. Continue ID recommendations 2. Continue mechanical ventilation 3. Continue to feeding as tolerated 4. Monitor H&H 5. DVT and GI prophylaxis 6. Consider discussion of CODE STATUS with family as overall prognosis very poor 7. Replace potassium Disposition Possible transfer to [facility] Problems: MUNIR DESHPANDE MD, FCCP Nov 10, 2016 16:35
[2016-11-10] MEDS: AMIODARONE 200 MG TAB GTB SCH (21:00)
[2016-11-10] MEDS: ATORVASTATIN 20 MG TAB PO SCH (22:01)
[2016-11-10] MEDS: INSULIN GLARGINE [LANtus] 3 ML PEN SC SCH (22:09)
[2016-11-11] VITALS (23 sets, daily range): BP systolic 86–113; BP diastolic 41–64; PULSE 100–110; RESP 17–22
[2016-11-11] MEDS: LANSOPRAZOLE 30 MG CAP PO SCH ×2 (05:02→18:47)
[2016-11-11] MEDS: INSULIN ASPART [NOVOLOG] 3 ML PEN SC SCH ×4 (05:04→23:54)
[2016-11-11 06:42] LABS: ADD SCAN DIFF NO
[2016-11-11 07:00] LABS: HEMATOCRIT 30.4 % (42.0-52.0); HEMOGLOBIN 9.4 g/dl (14.0-18.0); MEAN CORPUSCULAR HEMOGLOBIN 27.1 pg (29.0-33.0); MEAN CORPUSCULAR HGB CONC 30.9 g/dl (32.0-37.0); MEAN CORPUSCULAR VOLUME 87.6 fl (82.0-101.0); MEAN PLATELET VOLUME 11.4 fl (7.4-10.4); PLATELET COUNT 280 10^3/UL (140-415); RED BLOOD COUNT 3.47 10^6/ul (4.70-6.10); RED CELL DISTRIBUTION WIDTH 18.9 % (11.5-14.5)
[2016-11-11] MEDS ORDERED: ALTEPLASE (CATHFLO) 2 MG INJ CATHETER PRN (07:00)
[2016-11-11 07:03] LABS: CALCIUM 8.6 mg/dl (8.4-10.2); CREATININE 1.2 mg/dl (0.61-1.24); POTASSIUM 4.1 mmol/L (3.5-5.1)
[2016-11-11 07:05] LABS: INR 2.01; PT RATIO 1.8
[2016-11-11] MEDS: FERROUS SULFATE 60 MG/ML 5ML CUP GTB SCH (10:12)
[2016-11-11] MEDS: CITRIC ACID/NA CITRATE 30 ML CUP PO SCH ×3 (10:12→21:02)
[2016-11-11 10:13] LABS: EOSINOPHILS # 0.4 10^3/ul (0.0-0.5); LYMPHOCYTES # 2.3 10^3/ul (0.8-2.9); MONOCYTE # 0.6 10^3/ul (0.3-0.9); MYELOCYTES # 0.1; NEUTROPHIL # 6.5 10^3/ul (1.6-7.5)
[2016-11-11 10:14] LABS: ANISOCYTOSIS 1+; POLYCHROMASIA 1+
[2016-11-11] MEDS: AMIODARONE 200 MG TAB GTB SCH ×2 (10:14→21:02)
[2016-11-11] MEDS: FENOFIBRATE 145 MG TAB PO SCH (10:14)
[2016-11-11] MEDS: MULTIVITAMINS THERAPEUTIC TAB GTB SCH (10:14)
[2016-11-11] MEDS: SULFASALAZINE GTB SCH ×4 (10:14→21:02)
[2016-11-11] MEDS: ASCORBIC ACID 500 MG TAB GTB SCH (10:14)
[2016-11-11] MEDS: LACTOBACILLUS CHEW TAB PO SCH ×2 (10:14→21:02)
[2016-11-11] MEDS: MUPIROCIN 2% 22 GM OINT TOP SCH ×2 (10:15→21:03)
--- NOTE | 2016-11-11 10:46 | PN ---
Date/Time of Note Date/Time of Note DATE: 11/11/16 TIME: 10:46 Assessment/Plan VTE Prophylaxis VTE Prophylaxis Intervention: SCD's Lines/Catheters IV Catheter Type (from Nrs): PICC Line Central line still needed: No Urinary Cath still in place: Yes Reason Cath still needed: urinary retention Assessment/Plan Assessment/Plan Sepsis Acute blood loss anemia Elevated troponin likely secondary to above Respiratory failure Paroxysmal atrial fibrillation, currently sinus rhythm Paroxysmal atrial tachycardia Preserved ejection fraction Acute kidney injury, improving -Patient remains in sinus rhythm, supplement potassium to maintain above 4.0 and magnesium above 2.0. No anticoagulation at the current time given recurrent hematuria and anemia. Subjective 24 Hr Interval Summary Free Text/Dictation the patient with no cahnge Exam/Review of Systems Vital Signs Vitals Vital Signs Date Time Temp Pulse Resp B/P Pulse Ox O2 Delivery O2 Flow Rate FiO2 11/11/16 09:05 105 20 94 30 11/11/16 07:46 98.0 100/60 11/09/16 11:34 Mechanical Ventilator Intake and Output 11/10/16 11/10/16 11/11/16 15:00 23:00 07:00 Intake Total 680 ml 680 ml Output Total 800 ml 350 ml Balance -120 ml 330 ml Results Result Diagram: 11/11/16 0630 11/11/16 0630 Results 24 hrs Laboratory Tests Test 11/10/16 12:00 11/10/16 18:01 11/10/16 22:03 11/10/16 23:23 Bedside Glucose 115 108 137 109 Test 11/11/16 05:04 11/11/16 06:30 Bedside Glucose 107 White Blood Count 10.0 Red Blood Count 3.47 L Hemoglobin 9.4 L Hematocrit 30.4 L Mean Corpuscular Volume 87.6 Mean Corpuscular Hemoglobin 27.1 L Mean Corpuscular Hemoglobin Concent 30.9 L Red Cell Distribution Width 18.9 H Platelet Count 280 Mean Platelet Volume 11.4 H Neutrophils % 65.0 Band Neutrophils % 1.0 Lymphocytes % 23.0 Monocytes % 6.0 Eosinophils % 4.0 Myelocytes % 1.0 H Neutrophils # 6.5 Lymphocytes # 2.3 Monocytes # 0.6 Eosinophils # 0.4 Myelocytes # 0.1 Polychromasia 1+ Anisocytosis 1+ Prothrombin Time 23.0 H Prothrombin Time Ratio 1.8 INR International Normalized Ratio 2.01 Activated Partial Thromboplast Time 52.0 H Sodium Level 134 L Potassium Level 4.1 Chloride Level 109 Carbon Dioxide Level 17 L Anion Gap 12 Blood Urea Nitrogen 20 Creatinine 1.20 Glucose Level 97 Calcium Level 8.6 Medications Medications Current Medications Ondansetron HCl (Zofran Inj) 4 mg Q6H PRN IV NAUSEA AND/OR VOMITING Last administered on 10/27/16 13:51; Admin Dose 4 MG; Start 10/25/16 at 11:00 Nitroglycerin (Nitroglycerin (Sl Tab) 0.4 Mg) 1 tab Q5M PRN SL CHEST PAIN; Start 10/25/16 at 11:00 Acetaminophen (Tylenol Tab) 650 mg Q6H PRN PO PAIN LEVEL 1-3 OR FEVER Last administered on 11/04/16 15:30; Admin Dose 650 MG; Start 10/25/16 at 11:00 Acetaminophen (Tylenol Supp) 650 mg Q4H PRN AR PAIN LEVEL 1-3 OR FEVER; Start 10/25/16 at 11:00 Docusate Sodium (Colace) 100 mg Q12H PRN PO CONSTIPATION; Start 10/25/16 at 11: 00 Bisacodyl (Dulcolax Supp) 10 mg DAILY PRN [place] CONSTIPATION; Start 10/25/16 at 11: 00 Ascorbic Acid (Vitamin C) 500 mg DAILY GTB Last administered on 11/11/16 10:14 ; Admin Dose 500 MG; Start 10/26/16 at 09:00 Chlorhexidine Gluconate (Peridex) 15 ml Q12 MM Last administered on 11/10/16 22:01; Admin Dose 15 ML; Start 10/25/16 at 21:00 Collagenase (Santyl) 1 applic DAILY TOP Last administered on 11/10/16 10:47; Admin Dose 1 APPLIC; Start 10/26/16 at 09:00 Ferrous Sulfate (Feosol Liquid Cup) 330 mg DAILY GTB Last administered on 10:12; Admin Dose 330 MG; Start 10/26/16 at 09:00 Multivitamins Therapeutic (Theragran) 1 tab DAILY GTB Last administered on 11/11 10:14; Admin Dose 1 TAB; Start 10/26/16 at 09:00 Lactobacillus Acidoph/Bulgaricus (Floranex) 1 tab BID PO Last administered on 10:14; Admin Dose 1 TAB; Start 10/25/16 at 21:00 Fenofibrate (Tricor) 145 mg DAILY PO Last administered on 11/11/16 10:14; Admin Dose 145 MG; Start 10/26/16 at 09:00 IV Flush (NS 10 ml) 10 ml PRN PRN IV IV PROTOCOL; Start 10/25/16 at 11:30 Atorvastatin Calcium (Lipitor) 20 mg HS PO Last administered on 11/10/16 22:01 ; Admin Dose 20 MG; Start 10/25/16 at 21:00 Miscellaneous Information 1 ea NOTE XX ; Start 10/26/16 at 09:30 Glucose (Glutose) 15 gm Q15M PRN PO DECREASED GLUCOSE; Start 10/26/16 at 09:30 Glucose (Glutose) 22.5 gm Q15M PRN PO DECREASED GLUCOSE; Start 10/26/16 at 09:30 Dextrose (D50w Syringe) 25 ml Q15M PRN IV DECREASED GLUCOSE Last administered on 11/04/16 07:38; Admin Dose 25 ML; Start 10/26/16 at 09:30 Dextrose (D50w Syringe) 50 ml Q15M PRN IV DECREASED GLUCOSE; Start 10/26/16 at 09:30 Glucagon (Glucagen) 1 mg Q15M PRN IM DECREASED GLUCOSE; Start 10/26/16 at 09:30 Glucose (Glutose) 15 gm Q15M PRN BUCCAL DECREASED GLUCOSE; Start 10/26/16 at 09: 30 Insulin Glargine (Lantus) 12 unit DAILY@20 SC Last administered on 11/10/16 22 :09; Admin Dose 12 UNIT; Start 10/26/16 at 20:00 Sodium Hypochlorite (Dakin'S (1/4 Strength)) 1 applic DAILY IRR Last administered on 11/10/16 10:45; Admin Dose 1 APPLIC; Start 10/27/16 at 09:00 Insulin Aspart (Novolog Insulin Pen) NOVOLOG *MILD* ALGORI... Q6 SC Last administered on 11/08/16 12:17; Admin Dose 1 UNIT; Start 10/29/16 at 12:00 Non-Formulary Medication 10 ml QID GTB Last administered on 11/11/16 10:14; Admin Dose 10 ML; Start 10/31/16 at 17:00 Mupirocin (Bactroban) 1 applic BID TOP Last administered on 11/11/16 10:15; Admin Dose 1 APPLIC; Start 11/02/16 at 16:30 Lansoprazole (Prevacid) 30 mg BID@06,18 PO Last administered on 11/11/16 05:02 ; Admin Dose 30 MG; Start 11/06/16 at 18:00 Citric Acid/ Sodium Citrate (Bicitra) 30 ml TID PO Last administered on 10:12; Admin Dose 30 ML; Start 11/09/16 at 13:00 Amiodarone HCl (Cordarone) 200 mg BID GTB Last administered on 11/11/16 10:14 ; Admin Dose 200 MG; Start 11/10/16 at 21:00 JORGE CAZARES MD Nov 11, 2016 10:46
--- NOTE | 2016-11-11 10:50 | PN ---
Date/Time of Note Date/Time of Note DATE: 11/11/16 TIME: 10:50 Assessment/Plan VTE Prophylaxis VTE Prophylaxis Intervention: SCD's Assessment/Plan Chief Complaint/Hosp Course 1. S/p Septic shock 2/2 urinary tract infection, Off Pressors now, ID following 2. Ventilator-dependent respiratory failure. Continue vent management by information lead. 3. Non-ST myocardial infarction with elevated troponin, likely demand ischemia secondary to anemia. 4. Severe symptomatic anemia due to lower Gi bleeding s/p 2 U PRBC transfusion during this hospitalization- s/p EGD 10/27/2016 with finding of gastrostomy tube in the body of the stomach.Otherwise, normal esophagogastroduodenoscopy with no bleeding site identified s/p 10/31/2016 Colonoscopy and finding of an 8 mm ulcer in the proximal descending colon & A 4 cm ulcer in the cecum with Large internal hemorrhoids. 5. THEO due to ATN from sepsis and prerenal azotemia - stable cr 7. Diabetic mellitus . Place the patient on Lantus, continue insulin sliding scale. 8. History of essential hypertension. 9. Dyslipidemia, on statin. 10. Sacral decubitus, continue wound care, status post surgical debridement on 11/01/2016, continue postop care 12. Hematuria, urology has been consulted, resolved 13. PEG tube dysfunction, GI on case 14. Hypokalemia, Hypomagnesemia - pt is having interstitial defect due to IV colistin, d/c bicarbonate drip DVT prophylaxis; SCD, no Heparin/Lovenox due to GI bleeding possible transfer to [place] Problems: Subjective 24 Hr Interval Summary Subjective hx not possible: pt non-verbal Exam/Review of Systems Vital Signs Vitals Vital Signs Date Time Temp Pulse Resp B/P Pulse Ox O2 Delivery O2 Flow Rate FiO2 11/11/16 09:05 105 20 94 30 11/11/16 07:46 98.0 100/60 11/09/16 11:34 Mechanical Ventilator Intake and Output 11/10/16 11/10/16 11/11/16 15:00 23:00 07:00 Intake Total 680 ml 680 ml Output Total 800 ml 350 ml Balance -120 ml 330 ml Exam Constitutional: non-verbal Respiratory: clear to auscultation Cardiovascular: regular rate and rhythm Gastrointestinal: soft, No distended Musculoskeletal: nl extremities to inspection Results Result Diagram: 11/11/16 0630 11/11/16 0630 Results 24 hrs Laboratory Tests Test 11/10/16 12:00 11/10/16 18:01 11/10/16 22:03 11/10/16 23:23 Bedside Glucose 115 108 137 109 Test 11/11/16 05:04 11/11/16 06:30 Bedside Glucose 107 White Blood Count 10.0 Red Blood Count 3.47 L Hemoglobin 9.4 L Hematocrit 30.4 L Mean Corpuscular Volume 87.6 Mean Corpuscular Hemoglobin 27.1 L Mean Corpuscular Hemoglobin Concent 30.9 L Red Cell Distribution Width 18.9 H Platelet Count 280 Mean Platelet Volume 11.4 H Neutrophils % 65.0 Band Neutrophils % 1.0 Lymphocytes % 23.0 Monocytes % 6.0 Eosinophils % 4.0 Myelocytes % 1.0 H Neutrophils # 6.5 Lymphocytes # 2.3 Monocytes # 0.6 Eosinophils # 0.4 Myelocytes # 0.1 Polychromasia 1+ Anisocytosis 1+ Prothrombin Time 23.0 H Prothrombin Time Ratio 1.8 INR International Normalized Ratio 2.01 Activated Partial Thromboplast Time 52.0 H Sodium Level 134 L Potassium Level 4.1 Chloride Level 109 Carbon Dioxide Level 17 L Anion Gap 12 Blood Urea Nitrogen 20 Creatinine 1.20 Glucose Level 97 Calcium Level 8.6 Medications Medications Current Medications Ondansetron HCl (Zofran Inj) 4 mg Q6H PRN IV NAUSEA AND/OR VOMITING Last administered on 10/27/16 13:51; Admin Dose 4 MG; Start 10/25/16 at 11:00 Nitroglycerin (Nitroglycerin (Sl Tab) 0.4 Mg) 1 tab Q5M PRN SL CHEST PAIN; Start 10/25/16 at 11:00 Acetaminophen (Tylenol Tab) 650 mg Q6H PRN PO PAIN LEVEL 1-3 OR FEVER Last administered on 11/04/16 15:30; Admin Dose 650 MG; Start 10/25/16 at 11:00 Acetaminophen (Tylenol Supp) 650 mg Q4H PRN [place] PAIN LEVEL 1-3 OR FEVER; Start 10/25/16 at 11:00 Docusate Sodium (Colace) 100 mg Q12H PRN PO CONSTIPATION; Start 10/25/16 at 11: 00 Bisacodyl (Dulcolax Supp) 10 mg DAILY PRN MD CONSTIPATION; Start 10/25/16 at 11: 00 Ascorbic Acid (Vitamin C) 500 mg DAILY GTB Last administered on 11/11/16 10:14 ; Admin Dose 500 MG; Start 10/26/16 at 09:00 Chlorhexidine Gluconate (Peridex) 15 ml Q12 MM Last administered on 11/10/16 22:01; Admin Dose 15 ML; Start 10/25/16 at 21:00 Collagenase (Santyl) 1 applic DAILY TOP Last administered on 11/10/16 10:47; Admin Dose 1 APPLIC; Start 10/26/16 at 09:00 Ferrous Sulfate (Feosol Liquid Cup) 330 mg DAILY GTB Last administered on 10:12; Admin Dose 330 MG; Start 10/26/16 at 09:00 Multivitamins Therapeutic (Theragran) 1 tab DAILY GTB Last administered on 11/11 10:14; Admin Dose 1 TAB; Start 10/26/16 at 09:00 Lactobacillus Acidoph/Bulgaricus (Floranex) 1 tab BID PO Last administered on 10:14; Admin Dose 1 TAB; Start 10/25/16 at 21:00 Fenofibrate (Tricor) 145 mg DAILY PO Last administered on 11/11/16 10:14; Admin Dose 145 MG; Start 10/26/16 at 09:00 IV Flush (NS 10 ml) 10 ml PRN PRN IV IV PROTOCOL; Start 10/25/16 at 11:30 Atorvastatin Calcium (Lipitor) 20 mg HS PO Last administered on 11/10/16 22:01 ; Admin Dose 20 MG; Start 10/25/16 at 21:00 Miscellaneous Information 1 ea NOTE XX ; Start 10/26/16 at 09:30 Glucose (Glutose) 15 gm Q15M PRN PO DECREASED GLUCOSE; Start 10/26/16 at 09:30 Glucose (Glutose) 22.5 gm Q15M PRN PO DECREASED GLUCOSE; Start 10/26/16 at 09:30 Dextrose (D50w Syringe) 25 ml Q15M PRN IV DECREASED GLUCOSE Last administered on 11/04/16 07:38; Admin Dose 25 ML; Start 10/26/16 at 09:30 Dextrose (D50w Syringe) 50 ml Q15M PRN IV DECREASED GLUCOSE; Start 10/26/16 at 09:30 Glucagon (Glucagen) 1 mg Q15M PRN IM DECREASED GLUCOSE; Start 10/26/16 at 09:30 Glucose (Glutose) 15 gm Q15M PRN BUCCAL DECREASED GLUCOSE; Start 10/26/16 at 09: 30 Insulin Glargine (Lantus) 12 unit DAILY@20 SC Last administered on 11/10/16 22 :09; Admin Dose 12 UNIT; Start 10/26/16 at 20:00 Sodium Hypochlorite (Dakin'S (07/26 Strength)) 1 applic DAILY IRR Last administered on 11/10/16 10:45; Admin Dose 1 APPLIC; Start 10/27/16 at 09:00 Insulin Aspart (Novolog Insulin Pen) NOVOLOG *MILD* ALGORI... Q6 SC Last administered on 11/08/16 12:17; Admin Dose 1 UNIT; Start 10/29/16 at 12:00 Non-Formulary Medication 10 ml QID GTB Last administered on 11/11/16 10:14; Admin Dose 10 ML; Start 10/31/16 at 17:00 Mupirocin (Bactroban) 1 applic BID TOP Last administered on 11/11/16 10:15; Admin Dose 1 APPLIC; Start 11/02/16 at 16:30 Lansoprazole (Prevacid) 30 mg BID@06,18 PO Last administered on 11/11/16 05:02 ; Admin Dose 30 MG; Start 11/06/16 at 18:00 Citric Acid/ Sodium Citrate (Bicitra) 30 ml TID PO Last administered on 10:12; Admin Dose 30 ML; Start 11/09/16 at 13:00 Amiodarone HCl (Cordarone) 200 mg BID GTB Last administered on 11/11/16 10:14 ; Admin Dose 200 MG; Start 11/10/16 at 21:00 ISIS BATISTA Nov 11, 2016 10:50
--- NOTE | 2016-11-11 11:50 | PN ---
Date/Time of Note Date/Time of Note DATE: 11/11/16 TIME: 11:41 Assessment/Plan VTE Prophylaxis VTE Prophylaxis Intervention: SCD's Assessment/Plan Chief Complaint/Hosp Course Problems: Assessment/Plan Assessment: Colonic ileus resolved Sepsis resolving Anemia * s/p EGD 10/27/2016. * Gastrostomy tube in the body of the stomach. * Otherwise, normal esophagogastroduodenoscopy with no bleeding site identified * Status post bedside PEG reinsertion * s/o 10/31/2016 Colonoscopy * 8 mm ulcer in the proximal descending colon, biopsied. * 4 cm ulcer in the cecum, biopsied. * Normal ileum. * Otherwise, normal colonic mucosa. * Large internal hemorrhoids. Chronic OBS Plan: * continue tube feeding * continue present management * Will follow PRN Subjective 24 Hr Interval Summary Free Text/Dictation * Course reviewed with RN * Patient seen and examined * Tube feeding tolerated * No leak around G tube site Exam/Review of Systems Vital Signs Vitals Vital Signs Date Time Temp Pulse Resp B/P Pulse Ox O2 Delivery O2 Flow Rate FiO2 11/11/16 11:13 98.5 105 20 101/55 98 11/11/16 09:05 30 11/09/16 11:34 Mechanical Ventilator Intake and Output 11/10/16 11/10/16 11/11/16 15:00 23:00 07:00 Intake Total 680 ml 680 ml Output Total 800 ml 350 ml Balance -120 ml 330 ml Exam Constitutional: frail Neck: non-tender, supple Respiratory: clear to auscultation, diminished breath sounds, normal air movement, other (trach to ventilator) Cardiovascular: nl pulses, regular rate and rhythm Gastrointestinal: bowel sounds, non-tender, other (G tube site dry ,no leak), soft Genitourinary - Male: other (scrotal edema) Extremities: normal pulses Results Result Diagram: 11/11/16 0630 11/11/16 0630 Results 24 hrs Laboratory Tests Test 11/10/16 12:00 11/10/16 18:01 11/10/16 22:03 11/10/16 23:23 Bedside Glucose 115 108 137 109 Test 11/11/16 05:04 11/11/16 06:30 Bedside Glucose 107 White Blood Count 10.0 Red Blood Count 3.47 L Hemoglobin 9.4 L Hematocrit 30.4 L Mean Corpuscular Volume 87.6 Mean Corpuscular Hemoglobin 27.1 L Mean Corpuscular Hemoglobin Concent 30.9 L Red Cell Distribution Width 18.9 H Platelet Count 280 Mean Platelet Volume 11.4 H Neutrophils % 65.0 Band Neutrophils % 1.0 Lymphocytes % 23.0 Monocytes % 6.0 Eosinophils % 4.0 Myelocytes % 1.0 H Neutrophils # 6.5 Lymphocytes # 2.3 Monocytes # 0.6 Eosinophils # 0.4 Myelocytes # 0.1 Polychromasia 1+ Anisocytosis 1+ Prothrombin Time 23.0 H Prothrombin Time Ratio 1.8 INR International Normalized Ratio 2.01 Activated Partial Thromboplast Time 52.0 H Sodium Level 134 L Potassium Level 4.1 Chloride Level 109 Carbon Dioxide Level 17 L Anion Gap 12 Blood Urea Nitrogen 20 Creatinine 1.20 Glucose Level 97 Calcium Level 8.6 Medications Medications Current Medications Ondansetron HCl (Zofran Inj) 4 mg Q6H PRN IV NAUSEA AND/OR VOMITING Last administered on 10/27/16 13:51; Admin Dose 4 MG; Start 10/25/16 at 11:00 Nitroglycerin (Nitroglycerin (Sl Tab) 0.4 Mg) 1 tab Q5M PRN SL CHEST PAIN; Start 10/25/16 at 11:00 Acetaminophen (Tylenol Tab) 650 mg Q6H PRN PO PAIN LEVEL 1-3 OR FEVER Last administered on 11/04/16 15:30; Admin Dose 650 MG; Start 10/25/16 at 11:00 Acetaminophen (Tylenol Supp) 650 mg Q4H PRN [place] PAIN LEVEL 1-3 OR FEVER; Start 10/25/16 at 11:00 Docusate Sodium (Colace) 100 mg Q12H PRN PO CONSTIPATION; Start 10/25/16 at 11: 00 Bisacodyl (Dulcolax Supp) 10 mg DAILY PRN [place] CONSTIPATION; Start 10/25/16 at 11: 00 Ascorbic Acid (Vitamin C) 500 mg DAILY GTB Last administered on 11/11/16 10:14 ; Admin Dose 500 MG; Start 10/26/16 at 09:00 Chlorhexidine Gluconate (Peridex) 15 ml Q12 MM Last administered on 11/10/16 22:01; Admin Dose 15 ML; Start 10/25/16 at 21:00 Collagenase (Santyl) 1 applic DAILY TOP Last administered on 11/10/16 10:47; Admin Dose 1 APPLIC; Start 10/26/16 at 09:00 Ferrous Sulfate (Feosol Liquid Cup) 330 mg DAILY GTB Last administered on 10:12; Admin Dose 330 MG; Start 10/26/16 at 09:00 Multivitamins Therapeutic (Theragran) 1 tab DAILY GTB Last administered on 11/11 10:14; Admin Dose 1 TAB; Start 10/26/16 at 09:00 Lactobacillus Acidoph/Bulgaricus (Floranex) 1 tab BID PO Last administered on 10:14; Admin Dose 1 TAB; Start 10/25/16 at 21:00 Fenofibrate (Tricor) 145 mg DAILY PO Last administered on 11/11/16 10:14; Admin Dose 145 MG; Start 10/26/16 at 09:00 IV Flush (NS 10 ml) 10 ml PRN PRN IV IV PROTOCOL; Start 10/25/16 at 11:30 Atorvastatin Calcium (Lipitor) 20 mg HS PO Last administered on 11/10/16 22:01 ; Admin Dose 20 MG; Start 10/25/16 at 21:00 Miscellaneous Information 1 ea NOTE XX ; Start 10/26/16 at 09:30 Glucose (Glutose) 15 gm Q15M PRN PO DECREASED GLUCOSE; Start 10/26/16 at 09:30 Glucose (Glutose) 22.5 gm Q15M PRN PO DECREASED GLUCOSE; Start 10/26/16 at 09:30 Dextrose (D50w Syringe) 25 ml Q15M PRN IV DECREASED GLUCOSE Last administered on 11/04/16 07:38; Admin Dose 25 ML; Start 10/26/16 at 09:30 Dextrose (D50w Syringe) 50 ml Q15M PRN IV DECREASED GLUCOSE; Start 10/26/16 at 09:30 Glucagon (Glucagen) 1 mg Q15M PRN IM DECREASED GLUCOSE; Start 10/26/16 at 09:30 Glucose (Glutose) 15 gm Q15M PRN BUCCAL DECREASED GLUCOSE; Start 10/26/16 at 09: 30 Insulin Glargine (Lantus) 12 unit DAILY@20 SC Last administered on 11/10/16 22 :09; Admin Dose 12 UNIT; Start 10/26/16 at 20:00 Sodium Hypochlorite (Dakin'S (1/4 Strength)) 1 applic DAILY IRR Last administered on 11/10/16 10:45; Admin Dose 1 APPLIC; Start 10/27/16 at 09:00 Insulin Aspart (Novolog Insulin Pen) NOVOLOG *MILD* ALGORI... Q6 SC Last administered on 11/08/16 12:17; Admin Dose 1 UNIT; Start 10/29/16 at 12:00 Non-Formulary Medication 10 ml QID GTB Last administered on 11/11/16 10:14; Admin Dose 10 ML; Start 10/31/16 at 17:00 Mupirocin (Bactroban) 1 applic BID TOP Last administered on 11/11/16 10:15; Admin Dose 1 APPLIC; Start 11/02/16 at 16:30 Lansoprazole (Prevacid) 30 mg BID@06,18 PO Last administered on 11/11/16 05:02 ; Admin Dose 30 MG; Start 11/06/16 at 18:00 Citric Acid/ Sodium Citrate (Bicitra) 30 ml TID PO Last administered on 10:12; Admin Dose 30 ML; Start 11/09/16 at 13:00 Amiodarone HCl (Cordarone) 200 mg BID GTB Last administered on 11/11/16 10:14 ; Admin Dose 200 MG; Start 11/10/16 at 21:00 RAYMON BETANCOURT MD Nov 11, 2016 11:50
[2016-11-11] MEDS: CHLORHEXIDINE GLUCONATE 15 ML UD CUP MM SCH ×2 (13:00→21:02)
[2016-11-11] MEDS: SODIUM HYPOCHLORITE 0.125% 473 ML BTL IRR SCH (13:00)
[2016-11-11] MEDS: COLLAGENASE 30 GM TUBE TOP SCH (13:00)
--- NOTE | 2016-11-11 14:11 | CONS ---
Date/Time of Note Date/Time of Note DATE: 11/11/16 TIME: 13:57 Assessment/Plan Assessment/Plan Chief Complaint/Hosp Course ID PROGRESS NOTE CURRENT ABX=> OFF ABX 24H s/p ABX 11 days Zyvox, Colistin, Flagyl-> DC'd 11/10 s/p Vanco IV + Merrem prior 24H INTERVAL SUMMARY * Overall improved- Chronic debility, Vented, peg * Complete ABX course - repeat urine 11/10/16 growing GNR <10,000 + Yeast >100, 000 ? Possible colonization? * No fever, WBC stable, VSS, no evidence of true urosepsis today --- PHYSICAL EXAMINATION: GENERAL: VSS, NAD, Afebrile HEENT: Unremarkable NECK: Supple, trach-> Vent secure CHEST: Rise symmetrical, without dyspnea on observation HEART: Pulse RRR ABDOMEN: Soft, peg EXTREMITIES: Warm, trace edema SKIN: See wound photos ID ASSESSMENT 76 yo M admit with: 1. s/p Severe sepsis with shock, Polymicrobial bacteremia due to multifactorial infx conditions below => RESOLVED 2. S/P Acute anemia=> GI work-up completed with no obvious bleeding source * s/p EGD 10/27/16 * s/p Colonoscopy 10/31/16 3. (+)Bacteriuria 11/10/16 urine cx growing GNR <10,000 + YEAST >100,000 = QUERY asymptomatic colonization = No fevers, WBC normal, VSS * s/p Full course ABX Rx for recurrent urinary tract infection => s/p Colistin 11 days prior Rx Primaxin 4. Chronic respiratory failure-> trach 5. 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 Diabetes, blood sugars controlled. 7. Atrial fibrillation. 8. Dysphagia -> s/p PEG (+)MRSA Nares ->on Bactroban, s/p Vanco IV INVASIVES: Trach, PEG, Ferreira, PICC line placed on 10/25/2016. ABX ALLERGY: KNDA CURRENT ABX: => CURRENT ABX=> OFF ABX 24H s/p ABX 11 days Zyvox, Colistin, Flagyl-> DC'd 11/10 s/p Vanco IV + Merrem prior ID RECOMMENDATIONS * 1.Change to FC due to presence of yeast which adheres to the latex -- would NOT repeat UA C&S after FC has been changed unless recurrent sxs for urosepsis such as fevers, rising WBC, hypotension, etc. GNR is likely colonized. * 2. Observe over the weekend OFF ABX -> If no fevers, no hypotension, no leukocytosis - suspect urine colonization. . . . Problems: Consultation Date/Type/Reason Admit Date/Time Oct 25, 2016 at 10:54 Initial Consult Date 10/25/16 Type of Consultation: ID Referring Provider: DILIP ARELLANO MD Exam/Review of Systems Vital Signs Vitals Vital Signs Date Time Temp Pulse Resp B/P Pulse Ox O2 Delivery O2 Flow Rate FiO2 11/11/16 12:24 104 11/11/16 11:20 20 95 35 11/11/16 11:13 98.5 101/55 11/09/16 11:34 Mechanical Ventilator Intake and Output 11/10/16 11/10/16 11/11/16 15:00 23:00 07:00 Intake Total 680 ml 680 ml Output Total 800 ml 350 ml Balance -120 ml 330 ml Results Result Diagram: 11/11/16 0630 11/11/16 0630 Results 24 hrs Laboratory Tests Test 11/10/16 18:01 11/10/16 22:03 11/10/16 23:23 11/11/16 05:04 Bedside Glucose 108 137 109 107 Test 11/11/16 06:30 11/11/16 11:55 White Blood Count 10.0 Red Blood Count 3.47 L Hemoglobin 9.4 L Hematocrit 30.4 L Mean Corpuscular Volume 87.6 Mean Corpuscular Hemoglobin 27.1 L Mean Corpuscular Hemoglobin Concent 30.9 L Red Cell Distribution Width 18.9 H Platelet Count 280 Mean Platelet Volume 11.4 H Neutrophils % 65.0 Band Neutrophils % 1.0 Lymphocytes % 23.0 Monocytes % 6.0 Eosinophils % 4.0 Myelocytes % 1.0 H Neutrophils # 6.5 Lymphocytes # 2.3 Monocytes # 0.6 Eosinophils # 0.4 Myelocytes # 0.1 Polychromasia 1+ Anisocytosis 1+ Prothrombin Time 23.0 H Prothrombin Time Ratio 1.8 INR International Normalized Ratio 2.01 Activated Partial Thromboplast Time 52.0 H Sodium Level 134 L Potassium Level 4.1 Chloride Level 109 Carbon Dioxide Level 17 L Anion Gap 12 Blood Urea Nitrogen 20 Creatinine 1.20 Glucose Level 97 Calcium Level 8.6 Bedside Glucose 95 Medications Medications Current Medications Ondansetron HCl (Zofran Inj) 4 mg Q6H PRN IV NAUSEA AND/OR VOMITING Last administered on 10/27/16 13:51; Admin Dose 4 MG; Start 10/25/16 at 11:00 Nitroglycerin (Nitroglycerin (Sl Tab) 0.4 Mg) 1 tab Q5M PRN SL CHEST PAIN; Start 10/25/16 at 11:00 Acetaminophen (Tylenol Tab) 650 mg Q6H PRN PO PAIN LEVEL 1-3 OR FEVER Last administered on 11/04/16 15:30; Admin Dose 650 MG; Start 10/25/16 at 11:00 Acetaminophen (Tylenol Supp) 650 mg Q4H PRN [place] PAIN LEVEL 1-3 OR FEVER; Start 10/25/16 at 11:00 Docusate Sodium (Colace) 100 mg Q12H PRN PO CONSTIPATION; Start 10/25/16 at 11: 00 Bisacodyl (Dulcolax Supp) 10 mg DAILY PRN [place] CONSTIPATION; Start 10/25/16 at 11: 00 Ascorbic Acid (Vitamin C) 500 mg DAILY GTB Last administered on 11/11/16 10:14 ; Admin Dose 500 MG; Start 10/26/16 at 09:00 Chlorhexidine Gluconate (Peridex) 15 ml Q12 MM Last administered on 11/10/16 22:01; Admin Dose 15 ML; Start 10/25/16 at 21:00 Collagenase (Santyl) 1 applic DAILY TOP Last administered on 11/10/16 10:47; Admin Dose 1 APPLIC; Start 10/26/16 at 09:00 Ferrous Sulfate (Feosol Liquid Cup) 330 mg DAILY GTB Last administered on 10:12; Admin Dose 330 MG; Start 10/26/16 at 09:00 Multivitamins Therapeutic (Theragran) 1 tab DAILY GTB Last administered on 11/11 10:14; Admin Dose 1 TAB; Start 10/26/16 at 09:00 Lactobacillus Acidoph/Bulgaricus (Floranex) 1 tab BID PO Last administered on 10:14; Admin Dose 1 TAB; Start 10/25/16 at 21:00 Fenofibrate (Tricor) 145 mg DAILY PO Last administered on 11/11/16 10:14; Admin Dose 145 MG; Start 10/26/16 at 09:00 IV Flush (NS 10 ml) 10 ml PRN PRN IV IV PROTOCOL; Start 10/25/16 at 11:30 Atorvastatin Calcium (Lipitor) 20 mg HS PO Last administered on 11/10/16 22:01 ; Admin Dose 20 MG; Start 10/25/16 at 21:00 Miscellaneous Information 1 ea NOTE XX ; Start 10/26/16 at 09:30 Glucose (Glutose) 15 gm Q15M PRN PO DECREASED GLUCOSE; Start 10/26/16 at 09:30 Glucose (Glutose) 22.5 gm Q15M PRN PO DECREASED GLUCOSE; Start 10/26/16 at 09:30 Dextrose (D50w Syringe) 25 ml Q15M PRN IV DECREASED GLUCOSE Last administered on 11/04/16 07:38; Admin Dose 25 ML; Start 10/26/16 at 09:30 Dextrose (D50w Syringe) 50 ml Q15M PRN IV DECREASED GLUCOSE; Start 10/26/16 at 09:30 Glucagon (Glucagen) 1 mg Q15M PRN IM DECREASED GLUCOSE; Start 10/26/16 at 09:30 Glucose (Glutose) 15 gm Q15M PRN BUCCAL DECREASED GLUCOSE; Start 10/26/16 at 09: 30 Insulin Glargine (Lantus) 12 unit DAILY@20 SC Last administered on 11/10/16 22 :09; Admin Dose 12 UNIT; Start 10/26/16 at 20:00 Sodium Hypochlorite (Dakin'S (1/4 Strength)) 1 applic DAILY IRR Last administered on 11/10/16 10:45; Admin Dose 1 APPLIC; Start 10/27/16 at 09:00 Insulin Aspart (Novolog Insulin Pen) NOVOLOG *MILD* ALGORI... Q6 SC Last administered on 11/08/16 12:17; Admin Dose 1 UNIT; Start 10/29/16 at 12:00 Non-Formulary Medication 10 ml QID GTB Last administered on 11/11/16 10:14; Admin Dose 10 ML; Start 10/31/16 at 17:00 Mupirocin (Bactroban) 1 applic BID TOP Last administered on 11/11/16 10:15; Admin Dose 1 APPLIC; Start 11/02/16 at 16:30 Lansoprazole (Prevacid) 30 mg BID@06,18 PO Last administered on 11/11/16 05:02 ; Admin Dose 30 MG; Start 11/06/16 at 18:00 Citric Acid/ Sodium Citrate (Bicitra) 30 ml TID PO Last administered on 10:12; Admin Dose 30 ML; Start 11/09/16 at 13:00 Amiodarone HCl (Cordarone) 200 mg BID GTB Last administered on 11/11/16 10:14 ; Admin Dose 200 MG; Start 11/10/16 at 21:00 ANTON PORTILLO [employer] Nov 11, 2016 14:08
--- NOTE | 2016-11-11 16:57 | CONS ---
Date/Time of Note Date/Time of Note DATE: 11/11/16 TIME: 16:55 Consult Date/Type/Reason Admit Date/Time Oct 25, 2016 at 10:54 Initial Consult Date 10/25/16 Type of Consultation: Pulm Ordering Provider: DILIP ARELLANO MD Subjective No events. Objective Vital Signs Date Time Temp Pulse Resp B/P Pulse Ox O2 Delivery O2 Flow Rate FiO2 11/11/16 16:24 107 11/11/16 15:15 18 97 35 11/11/16 11:13 98.5 101/55 11/09/16 11:34 Mechanical Ventilator Intake and Output 11/10/16 11/10/16 11/11/16 15:00 23:00 07:00 Intake Total 680 ml 680 ml Output Total 800 ml 350 ml Balance -120 ml 330 ml Exam HEENT: Pupils equal, round, and reactive to light. Tracheostomy site clean and intact. CARDIAC: S1, S2, no added sounds or murmurs CHEST: Diminished air entry bilaterally. ABDOMEN: Mildly distended. Bowel sounds present. EXTREMITIES: No cyanosis, clubbing or edema. Results/Medications Result Diagram: 11/11/16 0630 11/11/16 0630 Results 24 hrs Laboratory Tests Test 11/10/16 18:01 11/10/16 22:03 11/10/16 23:23 11/11/16 05:04 Bedside Glucose 108 137 109 107 Test 11/11/16 06:30 11/11/16 11:55 White Blood Count 10.0 Red Blood Count 3.47 L Hemoglobin 9.4 L Hematocrit 30.4 L Mean Corpuscular Volume 87.6 Mean Corpuscular Hemoglobin 27.1 L Mean Corpuscular Hemoglobin Concent 30.9 L Red Cell Distribution Width 18.9 H Platelet Count 280 Mean Platelet Volume 11.4 H Neutrophils % 65.0 Band Neutrophils % 1.0 Lymphocytes % 23.0 Monocytes % 6.0 Eosinophils % 4.0 Myelocytes % 1.0 H Neutrophils # 6.5 Lymphocytes # 2.3 Monocytes # 0.6 Eosinophils # 0.4 Myelocytes # 0.1 Polychromasia 1+ Anisocytosis 1+ Prothrombin Time 23.0 H Prothrombin Time Ratio 1.8 INR International Normalized Ratio 2.01 Activated Partial Thromboplast Time 52.0 H Sodium Level 134 L Potassium Level 4.1 Chloride Level 109 Carbon Dioxide Level 17 L Anion Gap 12 Blood Urea Nitrogen 20 Creatinine 1.20 Glucose Level 97 Calcium Level 8.6 Bedside Glucose 95 Medications Current Medications Ondansetron HCl (Zofran Inj) 4 mg Q6H PRN IV NAUSEA AND/OR VOMITING Last administered on 10/27/16 13:51; Admin Dose 4 MG; Start 10/25/16 at 11:00 Nitroglycerin (Nitroglycerin (Sl Tab) 0.4 Mg) 1 tab Q5M PRN SL CHEST PAIN; Start 10/25/16 at 11:00 Acetaminophen (Tylenol Tab) 650 mg Q6H PRN PO PAIN LEVEL 1-3 OR FEVER Last administered on 11/04/16 15:30; Admin Dose 650 MG; Start 10/25/16 at 11:00 Acetaminophen (Tylenol Supp) 650 mg Q4H PRN [place] PAIN LEVEL 1-3 OR FEVER; Start 10/25/16 at 11:00 Docusate Sodium (Colace) 100 mg Q12H PRN PO CONSTIPATION; Start 10/25/16 at 11: 00 Bisacodyl (Dulcolax Supp) 10 mg DAILY PRN [place] CONSTIPATION; Start 10/25/16 at 11: 00 Ascorbic Acid (Vitamin C) 500 mg DAILY GTB Last administered on 11/11/16 10:14 ; Admin Dose 500 MG; Start 10/26/16 at 09:00 Chlorhexidine Gluconate (Peridex) 15 ml Q12 MM Last administered on 11/11/16 13:00; Admin Dose 15 ML; Start 10/25/16 at 21:00 Collagenase (Santyl) 1 applic DAILY TOP Last administered on 11/11/16 13:00; Admin Dose 1 APPLIC; Start 10/26/16 at 09:00 Ferrous Sulfate (Feosol Liquid Cup) 330 mg DAILY GTB Last administered on 10:12; Admin Dose 330 MG; Start 10/26/16 at 09:00 Multivitamins Therapeutic (Theragran) 1 tab DAILY GTB Last administered on 11/11 10:14; Admin Dose 1 TAB; Start 10/26/16 at 09:00 Lactobacillus Acidoph/Bulgaricus (Floranex) 1 tab BID PO Last administered on 10:14; Admin Dose 1 TAB; Start 10/25/16 at 21:00 Fenofibrate (Tricor) 145 mg DAILY PO Last administered on 11/11/16 10:14; Admin Dose 145 MG; Start 10/26/16 at 09:00 IV Flush (NS 10 ml) 10 ml PRN PRN IV IV PROTOCOL; Start 10/25/16 at 11:30 Atorvastatin Calcium (Lipitor) 20 mg HS PO Last administered on 11/10/16 22:01 ; Admin Dose 20 MG; Start 10/25/16 at 21:00 Miscellaneous Information 1 ea NOTE XX ; Start 10/26/16 at 09:30 Glucose (Glutose) 15 gm Q15M PRN PO DECREASED GLUCOSE; Start 10/26/16 at 09:30 Glucose (Glutose) 22.5 gm Q15M PRN PO DECREASED GLUCOSE; Start 10/26/16 at 09:30 Dextrose (D50w Syringe) 25 ml Q15M PRN IV DECREASED GLUCOSE Last administered on 11/04/16 07:38; Admin Dose 25 ML; Start 10/26/16 at 09:30 Dextrose (D50w Syringe) 50 ml Q15M PRN IV DECREASED GLUCOSE; Start 10/26/16 at 09:30 Glucagon (Glucagen) 1 mg Q15M PRN IM DECREASED GLUCOSE; Start 10/26/16 at 09:30 Glucose (Glutose) 15 gm Q15M PRN BUCCAL DECREASED GLUCOSE; Start 10/26/16 at 09: 30 Insulin Glargine (Lantus) 12 unit DAILY@20 SC Last administered on 11/10/16 22 :09; Admin Dose 12 UNIT; Start 10/26/16 at 20:00 Sodium Hypochlorite (Dakin'S (1/4 Strength)) 1 applic DAILY IRR Last administered on 11/11/16 13:00; Admin Dose 1 APPLIC; Start 10/27/16 at 09:00 Insulin Aspart (Novolog Insulin Pen) NOVOLOG *MILD* ALGORI... Q6 SC Last administered on 11/08/16 12:17; Admin Dose 1 UNIT; Start 10/29/16 at 12:00 Non-Formulary Medication 10 ml QID GTB Last administered on 11/11/16 14:57; Admin Dose 10 ML; Start 10/31/16 at 17:00 Mupirocin (Bactroban) 1 applic BID TOP Last administered on 11/11/16 10:15; Admin Dose 1 APPLIC; Start 11/02/16 at 16:30 Lansoprazole (Prevacid) 30 mg BID@06,18 PO Last administered on 11/11/16 05:02 ; Admin Dose 30 MG; Start 11/06/16 at 18:00 Citric Acid/ Sodium Citrate (Bicitra) 30 ml TID PO Last administered on 14:57; Admin Dose 30 ML; Start 11/09/16 at 13:00 Amiodarone HCl (Cordarone) 200 mg BID GTB Last administered on 11/11/16 10:14 ; Admin Dose 200 MG; Start 11/10/16 at 21:00 Assessment/Plan Additional Assessment/Plan IMP: 1. Status post Septic shock secondary to urinary tract infection cultures demonstrating gram-negative organism 2. Severe anemia possibly secondary to chronic disease with component of GI bleeding status post colonoscopy and endoscopy 3. Metabolic acidosis 4. Chronic renal insufficiency component of dehydration improved 5. Vent dependent respiratory failure 6. Chronic encephalopathy 7. Dysphagia with G-tube 8. Urinary retention and scrotal edema managed by urology RECS: 1. Vent support 2. Abx per ID 3. Continue to feeding as tolerated 4. Monitor H&H 5. DVT and GI prophylaxis MARI PACHECO MD Nov 11, 2016 16:57
[2016-11-11] MEDS: ATORVASTATIN 20 MG TAB PO SCH (21:02)
[2016-11-11] MEDS: INSULIN GLARGINE [LANtus] 3 ML PEN SC SCH (21:10)
[2016-11-12] VITALS (19 sets, daily range): BP systolic 104–116; BP diastolic 49–66; PULSE 108–110; RESP 17–22
[2016-11-12] MEDS ORDERED: SOD CHLORIDE 0.9% 500 ML IV ONE
--- NOTE | 2016-11-12 04:27 | PN ---
DATE: 11/11/2016 SUBJECTIVE: Gross hematuria that has cleared and penoscrotal edema. The patient himself is not cap able of expressing any pain or discomfort. OBJECTIVE: VITAL SIGNS: His temperature is 98.5. The blood pressure 101/55, pulse is 107, the respiration is 18. ABDOMEN: Soft and the penis and scrotum are swollen. The Ferreira catheter that was placed yesterday is draining clear urine. LABORATORY DATA: His CBC shows a white count of 10.0, hemoglobin 9.4, hematocrit 30.4. BUN is 20, creatinine 1.20. Sodium 134, potassium 4.1, chloride 109, CO2 17. Urine culture that was sent yest erday showed gram negative rods less than 10,000 and yeast more than 100,000. PLAN: To keep the Ferreira catheter in and elevate the scrotum on a towel at all times. Dictated By: TANA EMERSON MD BB/NTS Conf#: [id number] DID#: [id number] CC: RANDALL FRANKLIN MD; DILIP ARELLANO MD;*[facility]*
[2016-11-12] MEDS: LANSOPRAZOLE 30 MG CAP PO SCH ×2 (05:16→17:16)
[2016-11-12] MEDS: INSULIN ASPART [NOVOLOG] 3 ML PEN SC SCH ×2 (05:18→12:00)
[2016-11-12] MEDS ORDERED: L ACIDOPHIL/B LACTIS/B LONGUM CAPSULE PO SCH (09:00)
[2016-11-12] MEDS: FERROUS SULFATE 60 MG/ML 5ML CUP GTB SCH (09:03)
[2016-11-12] MEDS: SULFASALAZINE GTB SCH ×3 (09:03→17:00)
[2016-11-12] MEDS: ASCORBIC ACID 500 MG TAB GTB SCH (09:03)
[2016-11-12] MEDS: CITRIC ACID/NA CITRATE 30 ML CUP PO SCH ×2 (09:03→14:42)
[2016-11-12] MEDS: FENOFIBRATE 145 MG TAB PO SCH (09:03)
[2016-11-12] MEDS: MULTIVITAMINS THERAPEUTIC TAB GTB SCH (09:04)
[2016-11-12] MEDS: MUPIROCIN 2% 22 GM OINT TOP SCH (09:04)
[2016-11-12] MEDS: AMIODARONE 200 MG TAB GTB SCH (09:04)
--- NOTE | 2016-11-12 11:29 | PN ---
Date/Time of Note Date/Time of Note DATE: 11/12/16 TIME: 11:25 Assessment/Plan VTE Prophylaxis VTE Prophylaxis Intervention: SCD's Lines/Catheters IV Catheter Type (from [facility]): PICC Line Central line still needed: Yes Urinary Cath still in place: Yes Reason Cath still needed: urinary retention Assessment/Plan Chief Complaint/Hosp Course Problems: Assessment/Plan Colonic ileus resolved Sepsis resolving Anemia * s/p EGD 10/27/2016. * Gastrostomy tube in the body of the stomach. * Otherwise, normal esophagogastroduodenoscopy with no bleeding site identified * Status post bedside PEG reinsertion * s/o 10/31/2016 Colonoscopy * 8 mm ulcer in the proximal descending colon, biopsied. * 4 cm ulcer in the cecum, biopsied. * Normal ileum. * Otherwise, normal colonic mucosa. * Large internal hemorrhoids. Chronic OBS Plan: * continue tube feeding * continue present management * Will follow PRN Subjective 24 Hr Interval Summary Free Text/Dictation * Course reviewed with RN * patient seen and examined * G tube site no leak Exam/Review of Systems Vital Signs Vitals Vital Signs Date Time Temp Pulse Resp B/P Pulse Ox O2 Delivery O2 Flow Rate FiO2 11/12/16 09:25 111 22 94 30 11/12/16 06:44 97.9 111/54 11/09/16 11:34 Mechanical Ventilator Intake and Output 11/11/16 11/11/16 11/12/16 15:00 23:00 07:00 Intake Total 900 ml 980 ml Output Total 250 ml 250 ml Balance 650 ml 730 ml Exam Constitutional: frail Head: normocephalic Neck: non-tender, supple Respiratory: diminished breath sounds, normal air movement, other (on ventilator) Cardiovascular: nl pulses, regular rate and rhythm Gastrointestinal: bowel sounds, nl liver, spleen, other (G tube in placed,no leak), soft, No rebound or guarding Extremities: normal pulses, pitting pedal edema Skin: other (multiple decubitus) Results Result Diagram: 11/11/16 0630 11/11/16 0630 Results 24 hrs Laboratory Tests Test 11/11/16 11:55 11/11/16 17:33 11/11/16 20:58 11/11/16 23:54 Bedside Glucose 95 107 114 112 Test 11/12/16 05:16 11/12/16 09:53 Bedside Glucose 98 Lab Scanned Report REFERENCE LAB Medications Medications Current Medications Ondansetron HCl (Zofran Inj) 4 mg Q6H PRN IV NAUSEA AND/OR VOMITING Last administered on 10/27/16 13:51; Admin Dose 4 MG; Start 10/25/16 at 11:00 Nitroglycerin (Nitroglycerin (Sl Tab) 0.4 Mg) 1 tab Q5M PRN SL CHEST PAIN; Start 10/25/16 at 11:00 Acetaminophen (Tylenol Tab) 650 mg Q6H PRN PO PAIN LEVEL 1-3 OR FEVER Last administered on 11/04/16 15:30; Admin Dose 650 MG; Start 10/25/16 at 11:00 Acetaminophen (Tylenol Supp) 650 mg Q4H PRN IN PAIN LEVEL 1-3 OR FEVER; Start 10/25/16 at 11:00 Docusate Sodium (Colace) 100 mg Q12H PRN PO CONSTIPATION; Start 10/25/16 at 11: 00 Bisacodyl (Dulcolax Supp) 10 mg DAILY PRN IN CONSTIPATION; Start 10/25/16 at 11: 00 Ascorbic Acid (Vitamin C) 500 mg DAILY GTB Last administered on 11/12/16 09:03 ; Admin Dose 500 MG; Start 10/26/16 at 09:00 Chlorhexidine Gluconate (Peridex) 15 ml Q12 MM Last administered on 11/11/16 21:02; Admin Dose 15 ML; Start 10/25/16 at 21:00 Collagenase (Santyl) 1 applic DAILY TOP Last administered on 11/11/16 13:00; Admin Dose 1 APPLIC; Start 10/26/16 at 09:00 Ferrous Sulfate (Feosol Liquid Cup) 330 mg DAILY GTB Last administered on 09:03; Admin Dose 330 MG; Start 10/26/16 at 09:00 Multivitamins Therapeutic (Theragran) 1 tab DAILY GTB Last administered on 11/12 09:04; Admin Dose 1 TAB; Start 10/26/16 at 09:00 Fenofibrate (Tricor) 145 mg DAILY PO Last administered on 11/12/16 09:03; Admin Dose 145 MG; Start 10/26/16 at 09:00 IV Flush (NS 10 ml) 10 ml PRN PRN IV IV PROTOCOL; Start 10/25/16 at 11:30 Atorvastatin Calcium (Lipitor) 20 mg HS PO Last administered on 11/11/16 21:02 ; Admin Dose 20 MG; Start 10/25/16 at 21:00 Miscellaneous Information 1 ea NOTE XX ; Start 10/26/16 at 09:30 Glucose (Glutose) 15 gm Q15M PRN PO DECREASED GLUCOSE; Start 10/26/16 at 09:30 Glucose (Glutose) 22.5 gm Q15M PRN PO DECREASED GLUCOSE; Start 10/26/16 at 09:30 Dextrose (D50w Syringe) 25 ml Q15M PRN IV DECREASED GLUCOSE Last administered on 11/04/16 07:38; Admin Dose 25 ML; Start 10/26/16 at 09:30 Dextrose (D50w Syringe) 50 ml Q15M PRN IV DECREASED GLUCOSE; Start 10/26/16 at 09:30 Glucagon (Glucagen) 1 mg Q15M PRN IM DECREASED GLUCOSE; Start 10/26/16 at 09:30 Glucose (Glutose) 15 gm Q15M PRN BUCCAL DECREASED GLUCOSE; Start 10/26/16 at 09: 30 Insulin Glargine (Lantus) 12 unit DAILY@20 SC Last administered on 11/11/16 21 :10; Admin Dose 12 UNIT; Start 10/26/16 at 20:00 Sodium Hypochlorite (Dakin'S (1/4 Strength)) 1 applic DAILY IRR Last administered on 11/11/16 13:00; Admin Dose 1 APPLIC; Start 10/27/16 at 09:00 Insulin Aspart (Novolog Insulin Pen) NOVOLOG *MILD* ALGORI... Q6 SC Last administered on 11/08/16 12:17; Admin Dose 1 UNIT; Start 10/29/16 at 12:00 Non-Formulary Medication 10 ml QID GTB Last administered on 11/12/16 09:03; Admin Dose 10 ML; Start 10/31/16 at 17:00 Mupirocin (Bactroban) 1 applic BID TOP Last administered on 11/12/16 09:04; Admin Dose 1 APPLIC; Start 11/02/16 at 16:30 Lansoprazole (Prevacid) 30 mg BID@06,18 PO Last administered on 11/12/16 05:16 ; Admin Dose 30 MG; Start 11/06/16 at 18:00 Citric Acid/ Sodium Citrate (Bicitra) 30 ml TID PO Last administered on 09:03; Admin Dose 30 ML; Start 11/09/16 at 13:00 Amiodarone HCl (Cordarone) 200 mg BID GTB Last administered on 11/12/16 09:04 ; Admin Dose 200 MG; Start 11/10/16 at 21:00 Lactobacillus Acidophilus (Florajen3 Capsule) 1 each BID PO ; Start 11/12/16 at 09:00 RAYMON BETANCOURT MD Nov 12, 2016 11:29
[2016-11-12] MEDS: CHLORHEXIDINE GLUCONATE 15 ML UD CUP MM SCH (13:00)
[2016-11-12] MEDS: COLLAGENASE 30 GM TUBE TOP SCH (13:00)
[2016-11-12] MEDS: SODIUM HYPOCHLORITE 0.125% 473 ML BTL IRR SCH (13:00)
--- NOTE | 2016-11-12 15:33 | CONS ---
Date/Time of Note Date/Time of Note DATE: 11/12/16 TIME: 15:32 Assessment/Plan Assessment/Plan Additional Assessment/Plan Sepsis Acute blood loss anemia Elevated troponin likely secondary to above Respiratory failure Paroxysmal atrial fibrillation, currently sinus rhythm Paroxysmal atrial tachycardia Preserved ejection fraction Acute kidney injury, improving -Supplement potassium to maintain above 4.0 and magnesium above 2.0. Amiodarone has been decreased. No anticoagulation at the current time given recurrent hematuria and anemia. Consultation Date/Type/Reason Admit Date/Time Oct 25, 2016 at 10:54 Initial Consult Date 10/25/16 Type of Consultation: cv Referring Provider: DILIP ARELLANO MD 24 HR Interval Summary Free Text/Dictation Patient seen and examined Exam/Review of Systems Vital Signs Vitals Vital Signs Date Time Temp Pulse Resp B/P Pulse Ox O2 Delivery O2 Flow Rate FiO2 11/12/16 13:50 110 22 96 35 11/12/16 11:41 98.6 116/59 11/09/16 11:34 Mechanical Ventilator Intake and Output 11/11/16 11/11/16 11/12/16 15:00 23:00 07:00 Intake Total 900 ml 980 ml Output Total 250 ml 250 ml Balance 650 ml 730 ml Exam No apparent distress Head: normocephalic Neck: other (Tracheostomy) Respiratory: other (Coarse breath sounds bilaterally, no wheezing) Cardiovascular: other (S1-S2 heard), regular rate and rhythm Gastrointestinal: bowel sounds, non-tender, other (No guarding), soft Extremities: edema Results Result Diagram: 11/11/16 0630 11/11/16 0630 Results 24 hrs Laboratory Tests Test 11/11/16 17:33 11/11/16 20:58 11/11/16 23:54 11/12/16 05:16 Bedside Glucose 107 114 112 98 Test 11/12/16 09:53 11/12/16 12:08 Lab Scanned Report REFERENCE LAB Bedside Glucose 93 Medications Medications Current Medications Ondansetron HCl (Zofran Inj) 4 mg Q6H PRN IV NAUSEA AND/OR VOMITING Last administered on 10/27/16t 13:51; Admin Dose 4 MG; Start 10/25/16 at 11:00 Nitroglycerin (Nitroglycerin (Sl Tab) 0.4 Mg) 1 tab Q5M PRN SL CHEST PAIN; Start 10/25/16 at 11:00 Acetaminophen (Tylenol Tab) 650 mg Q6H PRN PO PAIN LEVEL 1-3 OR FEVER Last administered on 11/04/16 15:30; Admin Dose 650 MG; Start 10/25/16 at 11:00 Acetaminophen (Tylenol Supp) 650 mg Q4H PRN [place] PAIN LEVEL 1-3 OR FEVER; Start 10/25/16 at 11:00 Docusate Sodium (Colace) 100 mg Q12H PRN PO CONSTIPATION; Start 10/25/16 at 11: 00 Bisacodyl (Dulcolax Supp) 10 mg DAILY PRN [place] CONSTIPATION; Start 10/25/16 at 11: 00 Ascorbic Acid (Vitamin C) 500 mg DAILY GTB Last administered on 11/12/16 09:03 ; Admin Dose 500 MG; Start 10/26/16 at 09:00 Chlorhexidine Gluconate (Peridex) 15 ml Q12 MM Last administered on 11/12/16 13:00; Admin Dose 15 ML; Start 10/25/16 at 21:00 Collagenase (Santyl) 1 applic DAILY TOP Last administered on 11/12/16 13:00; Admin Dose 1 APPLIC; Start 10/26/16 at 09:00 Ferrous Sulfate (Feosol Liquid Cup) 330 mg DAILY GTB Last administered on 09:03; Admin Dose 330 MG; Start 10/26/16 at 09:00 Multivitamins Therapeutic (Theragran) 1 tab DAILY GTB Last administered on 11/12 09:04; Admin Dose 1 TAB; Start 10/26/16 at 09:00 Fenofibrate (Tricor) 145 mg DAILY PO Last administered on 11/12/16 09:03; Admin Dose 145 MG; Start 10/26/16 at 09:00 IV Flush (NS 10 ml) 10 ml PRN PRN IV IV PROTOCOL; Start 10/25/16 at 11:30 Atorvastatin Calcium (Lipitor) 20 mg HS PO Last administered on 11/11/16 21:02 ; Admin Dose 20 MG; Start 10/25/16 at 21:00 Miscellaneous Information 1 ea NOTE XX ; Start 10/26/16 at 09:30 Glucose (Glutose) 15 gm Q15M PRN PO DECREASED GLUCOSE; Start 10/26/16 at 09:30 Glucose (Glutose) 22.5 gm Q15M PRN PO DECREASED GLUCOSE; Start 10/26/16 at 09:30 Dextrose (D50w Syringe) 25 ml Q15M PRN IV DECREASED GLUCOSE Last administered on 11/04/16 07:38; Admin Dose 25 ML; Start 10/26/16 at 09:30 Dextrose (D50w Syringe) 50 ml Q15M PRN IV DECREASED GLUCOSE; Start 10/26/16 at 09:30 Glucagon (Glucagen) 1 mg Q15M PRN IM DECREASED GLUCOSE; Start 10/26/16 at 09:30 Glucose (Glutose) 15 gm Q15M PRN BUCCAL DECREASED GLUCOSE; Start 10/26/16 at 09: 30 Insulin Glargine (Lantus) 12 unit DAILY@20 SC Last administered on 11/11/16 21 :10; Admin Dose 12 UNIT; Start 10/26/16 at 20:00 Sodium Hypochlorite (Dakin'S (1/4 Strength)) 1 applic DAILY IRR Last administered on 11/12/16 13:00; Admin Dose 1 APPLIC; Start 10/27/16 at 09:00 Insulin Aspart (Novolog Insulin Pen) NOVOLOG *MILD* ALGORI... Q6 SC Last administered on 11/08/16 12:17; Admin Dose 1 UNIT; Start 10/29/16 at 12:00 Non-Formulary Medication 10 ml QID GTB Last administered on 11/12/16 14:39; Admin Dose 10 ML; Start 10/31/16 at 17:00 Mupirocin (Bactroban) 1 applic BID TOP Last administered on 11/12/16 09:04; Admin Dose 1 APPLIC; Start 11/02/16 at 16:30 Lansoprazole (Prevacid) 30 mg BID@06,18 PO Last administered on 11/12/16 05:16 ; Admin Dose 30 MG; Start 11/06/16 at 18:00 Citric Acid/ Sodium Citrate (Bicitra) 30 ml TID PO Last administered on 14:42; Admin Dose 30 ML; Start 11/09/16 at 13:00 Amiodarone HCl (Cordarone) 200 mg BID GTB Last administered on 11/12/16 09:04 ; Admin Dose 200 MG; Start 11/10/16 at 21:00 Lactobacillus Acidophilus (Florajen3 Capsule) 1 each BID PO Last administered on 11/12/16t 14:39; Admin Dose 1 EACH; Start 11/12/16 at 09:00 Ervin Ceja DO Nov 12, 2016 15:33
--- NOTE | 2016-11-12 16:55 | CONS ---
Date/Time of Note Date/Time of Note DATE: 11/12/16 TIME: 16:53 Consult Date/Type/Reason Admit Date/Time Oct 25, 2016 at 10:54 Initial Consult Date 10/25/16 Type of Consultation: Pulm Ordering Provider: DILIP ARELLANO MD Subjective No events. On vent. Objective Vital Signs Date Time Temp Pulse Resp B/P Pulse Ox O2 Delivery O2 Flow Rate FiO2 11/12/16 16:31 108 11/12/16 15:33 97.9 17 104/61 97 11/12/16 15:15 30 11/09/16 11:34 Mechanical Ventilator Intake and Output 11/11/16 11/11/16 11/12/16 15:00 23:00 07:00 Intake Total 900 ml 980 ml Output Total 250 ml 250 ml Balance 650 ml 730 ml Exam HEENT: Pupils equal, round, and reactive to light. Tracheostomy site clean and intact. CARDIAC: S1, S2, no added sounds or murmurs CHEST: Diminished air entry bilaterally. ABDOMEN: Mildly distended. Bowel sounds present. EXTREMITIES: No cyanosis, clubbing or edema. Results/Medications Result Diagram: 11/11/16 0630 11/11/16 0630 Results 24 hrs Laboratory Tests Test 11/11/16 17:33 11/11/16 20:58 11/11/16 23:54 11/12/16 05:16 Bedside Glucose 107 114 112 98 Test 11/12/16 09:53 11/12/16 12:08 Lab Scanned Report REFERENCE LAB Bedside Glucose 93 Medications Current Medications Ondansetron HCl (Zofran Inj) 4 mg Q6H PRN IV NAUSEA AND/OR VOMITING Last administered on 10/27/16 13:51; Admin Dose 4 MG; Start 10/25/16 at 11:00 Nitroglycerin (Nitroglycerin (Sl Tab) 0.4 Mg) 1 tab Q5M PRN SL CHEST PAIN; Start 10/25/16 at 11:00 Acetaminophen (Tylenol Tab) 650 mg Q6H PRN PO PAIN LEVEL 1-3 OR FEVER Last administered on 11/04/16 15:30; Admin Dose 650 MG; Start 10/25/16 at 11:00 Acetaminophen (Tylenol Supp) 650 mg Q4H PRN [place] PAIN LEVEL 1-3 OR FEVER; Start 10/25/16 at 11:00 Docusate Sodium (Colace) 100 mg Q12H PRN PO CONSTIPATION; Start 10/25/16 at 11: 00 Bisacodyl (Dulcolax Supp) 10 mg DAILY PRN [place] CONSTIPATION; Start 10/25/16 at 11: 00 Ascorbic Acid (Vitamin C) 500 mg DAILY GTB Last administered on 11/12/16 09:03 ; Admin Dose 500 MG; Start 10/26/16 at 09:00 Chlorhexidine Gluconate (Peridex) 15 ml Q12 MM Last administered on 11/12/16 13:00; Admin Dose 15 ML; Start 10/25/16 at 21:00 Collagenase (Santyl) 1 applic DAILY TOP Last administered on 11/12/16 13:00; Admin Dose 1 APPLIC; Start 10/26/16 at 09:00 Ferrous Sulfate (Feosol Liquid Cup) 330 mg DAILY GTB Last administered on 09:03; Admin Dose 330 MG; Start 10/26/16 at 09:00 Multivitamins Therapeutic (Theragran) 1 tab DAILY GTB Last administered on 11/12 09:04; Admin Dose 1 TAB; Start 10/26/16 at 09:00 Fenofibrate (Tricor) 145 mg DAILY PO Last administered on 11/12/16 09:03; Admin Dose 145 MG; Start 10/26/16 at 09:00 IV Flush (NS 10 ml) 10 ml PRN PRN IV IV PROTOCOL; Start 10/25/16 at 11:30 Atorvastatin Calcium (Lipitor) 20 mg HS PO Last administered on 11/11/16 21:02 ; Admin Dose 20 MG; Start 10/25/16 at 21:00 Miscellaneous Information 1 ea NOTE XX ; Start 10/26/16 at 09:30 Glucose (Glutose) 15 gm Q15M PRN PO DECREASED GLUCOSE; Start 10/26/16 at 09:30 Glucose (Glutose) 22.5 gm Q15M PRN PO DECREASED GLUCOSE; Start 10/26/16 at 09:30 Dextrose (D50w Syringe) 25 ml Q15M PRN IV DECREASED GLUCOSE Last administered on 11/04/16 07:38; Admin Dose 25 ML; Start 10/26/16 at 09:30 Dextrose (D50w Syringe) 50 ml Q15M PRN IV DECREASED GLUCOSE; Start 10/26/16 at 09:30 Glucagon (Glucagen) 1 mg Q15M PRN IM DECREASED GLUCOSE; Start 10/26/16 at 09:30 Glucose (Glutose) 15 gm Q15M PRN BUCCAL DECREASED GLUCOSE; Start 10/26/16 at 09: 30 Insulin Glargine (Lantus) 12 unit DAILY@20 SC Last administered on 11/11/16 21 :10; Admin Dose 12 UNIT; Start 10/26/16 at 20:00 Sodium Hypochlorite (Dakin'S (1/4 Strength)) 1 applic DAILY IRR Last administered on 11/12/16 13:00; Admin Dose 1 APPLIC; Start 10/27/16 at 09:00 Insulin Aspart (Novolog Insulin Pen) NOVOLOG *MILD* ALGORI... Q6 SC Last administered on 11/08/16 12:17; Admin Dose 1 UNIT; Start 10/29/16 at 12:00 Non-Formulary Medication 10 ml QID GTB Last administered on 11/12/16 14:39; Admin Dose 10 ML; Start 10/31/16 at 17:00 Mupirocin (Bactroban) 1 applic BID TOP Last administered on 11/12/16 09:04; Admin Dose 1 APPLIC; Start 11/02/16 at 16:30 Lansoprazole (Prevacid) 30 mg BID@06,18 PO Last administered on 11/12/16 05:16 ; Admin Dose 30 MG; Start 11/06/16 at 18:00 Citric Acid/ Sodium Citrate (Bicitra) 30 ml TID PO Last administered on 14:42; Admin Dose 30 ML; Start 11/09/16 at 13:00 Amiodarone HCl (Cordarone) 200 mg BID GTB Last administered on 11/12/16 09:04 ; Admin Dose 200 MG; Start 11/10/16 at 21:00 Lactobacillus Acidophilus (Florajen3 Capsule) 1 each BID PO Last administered on 11/12/16 14:39; Admin Dose 1 EACH; Start 11/12/16 at 09:00 Assessment/Plan Additional Assessment/Plan IMP: 1. Status post Septic shock secondary to urinary tract infection 2. Severe anemia possibly secondary to chronic disease with component of GI bleeding status post colonoscopy and endoscopy 3. Metabolic acidosis 4. Chronic renal insufficiency component of dehydration improved 5. Vent dependent respiratory failure 6. Chronic encephalopathy 7. Dysphagia with G-tube 8. Urinary retention and scrotal edema managed by urology RECS: 1. Vent support; BD's 2. Abx per ID 3. Continue to feeding as tolerated 4. Monitor H&H 5. DVT and GI prophylaxis 6. TF/Free H2O MARI PACHECO MD Nov 12, 2016 16:55
--- NOTE | 2016-11-12 19:20 | DS ---
DATE OF ADMISSION: 10/25/2016 DATE OF DISCHARGE: 11/12/2016 DISCHARGE DIAGNOSES: 1. Septic shock secondary to urinary tract infection, now stable. 2. Vent-dependent respiratory failure. The patient has a Garcia. 3. Non-ST elevation myocardial infarction type 2, likely secondary to demand ischemia from anemia a nd sepsis. 4. Severe symptomatic anemia secondary to lower gastrointestinal bleed, status post 2 units of pack ed red blood cells during this hospitalization, as well as, esophagogastroduodenoscopy with finding of gastrostomy tube in the body of the stomach, otherwise normal esophagogastroduodenoscopy. No ble eding site identified. 5. Acute kidney injury due to acute tubular necrosis from sepsis, stable. 6. Diabetes. Continue regimen. 7. Hypertension, stable. 8. Chronic obstructive pulmonary disease, stable. 9. Sacral decubitus ulcers, status post debridement on 11/01/2016. 10. ____ of radiology was consulted, resolved. 11. Chronic debility status post trache and PEG. HOSPITAL COURSE: The patient is a 76-year-old male with history of CVA, diabetes, COPD, respiratory failure , status post tracheostomy and PEG tube placement. The patient also has a history of BPH, coronary artery disease, arrhythmia, anemia, dyslipidemia. The patient resides at a custodial facility. She was found to be severely hypertensive. Patient was admitted for sepsis secondary to urinary tract infection. Troponins are elevated secondary to demand ischemia from sepsis. The pat ient had anemia as well and was seen by GI. The patient had EGD showed gastrostomy tube in the body of the stomach, otherwise normal EGD. No bleeding site identified. The patient had colonoscopy th at showed an 8 mm ulcer in the proximal ascending colon, 4 mm ulcer in the cecum with large internal hemorrhoids. The patient also had acute kidney injury due to ATN from sepsis. The patient has a s acral decubitus ulcer, was seen by wound care, and had a surgical debridement on 11/01/2016. The pa tient was felt to be appropriate for [facility] and ultimately was arranged for transfer to [facility]. On the day of discharge, vitals and labs, as well as, physical examination were stable. CONDITION ON DISCHARGE: Fair. DISPOSITION: To [facility]. MEDICATIONS: The patient is to continue inpatient medications. FOLLOWUP: The patient is to follow up with physicians at [facility]. Dictated By: ISIS BATISTA MD BS/NTS Conf#: [id number] DID#: [id number]
== END 2016-11-12 17:55 | DRG 853 ==
LOC: E/R 07:21 → ICU 10:54 → TEL 10-28 17:18
PROVIDERS: ADMIT Family Medicine; ATTEND Family Medicine
PROC: 02HV33Z Insertion of Infusion Device into Superior Vena Cava, Percutaneous Approach (ICD-10-PCS; principal; 2016-10-25)
PROC: 5A1955Z Respiratory Ventilation, Greater than 96 Consecutive Hours (ICD-10-PCS; 2016-10-25)
PROC: 30243N1 Transfusion of Nonautologous Red Blood Cells into Central Vein, Percutaneous Approach (ICD-10-PCS; 2016-10-25)
PROC: 0DJ08ZZ Inspection of Upper Intestinal Tract, Via Natural or Artificial Opening Endoscopic (ICD-10-PCS; 2016-10-27)
PROC: 0DBH8ZX Excision of Cecum, Via Natural or Artificial Opening Endoscopic, Diagnostic (ICD-10-PCS; 2016-10-31)
PROC: 0DBM8ZX Excision of Descending Colon, Via Natural or Artificial Opening Endoscopic, Diagnostic (ICD-10-PCS; 2016-10-31)
PROC: 0JB70ZZ Excision of Back Subcutaneous Tissue and Fascia, Open Approach (ICD-10-PCS; 2016-11-01)
PROC: 0D20XUZ Change Feeding Device in Upper Intestinal Tract, External Approach (ICD-10-PCS; 2016-11-02)
PROC: 3E1 Administration, Physiological Systems and Anatomical Regions, Irrigation (ICD-10-PCS; 2016-11-10)
DX: A41.9 Sepsis, unspecified organism (principal); R65.21 Severe sepsis with septic shock; I21.4 Non-ST elevation (NSTEMI) myocardial infarction; N17.0 Acute kidney failure with tubular necrosis; Z99.11 Dependence on respirator [ventilator] status; E87.0 Hyperosmolality and hypernatremia; K63.3 Ulcer of intestine; L89.150 Pressure ulcer of sacral region, unstageable; J96.11 Chronic respiratory failure with hypoxia; K56.7 Ileus, unspecified; N39.0 Urinary tract infection, site not specified; D62 Acute posthemorrhagic anemia; E87.2 Acidosis; K92.2 Gastrointestinal hemorrhage, unspecified; Z43.1 Encounter for attention to gastrostomy; E86.0 Dehydration; E78.5 Hyperlipidemia, unspecified; I10 Essential (primary) hypertension; E11.9 Type 2 diabetes mellitus without complications; J44.9 Chronic obstructive pulmonary disease, unspecified; R53.81 Other malaise; I25.10 Atherosclerotic heart disease of native coronary artery without angina pectoris; I48.0 Paroxysmal atrial fibrillation; E87.5 Hyperkalemia; I69.918 Other symptoms and signs involving cognitive functions following unspecified cerebrovascular disease; F01.50 Vascular dementia, unspecified severity, without behavioral disturbance, psychotic disturbance, mood disturbance, and anxiety; I73.9 Peripheral vascular disease, unspecified; E87.6 Hypokalemia; R31.0 Gross hematuria; K64.8 Other hemorrhoids; E83.42 Hypomagnesemia; B95.62 Methicillin resistant Staphylococcus aureus infection as the cause of diseases classified elsewhere; B96.20 Unspecified Escherichia coli [E. coli] as the cause of diseases classified elsewhere; B96.89 Other specified bacterial agents as the cause of diseases classified elsewhere; R33.9 Retention of urine, unspecified; N50.89 Other specified disorders of the male genital organs; Z93.0 Tracheostomy status; Z22.322 Carrier or suspected carrier of Methicillin resistant Staphylococcus aureus
CPT/HCPCS: 36415; 36430; 36569; 36600; 71010; 74000; 74176; 76937; 80048; 80053; 80162; 80202; 81001; 81003; 82270; 82728; 82803; 82962; 83036; 83540; 83605; 83615; 83735; 83880; 84100; 84439; 84443; 84481; 84484; 85014; 85018; 85025; 85610; 85730; 86850; 86900; 86901; 86920; 87040; 87070; 87081; 87086; 93005; 94002; 94003; 94644; 96365; 96366; 96368; 96372; 96375; C9113; J0171; J0692; J1250; J1815; J2185; J2250; J2405; J2765; J3010; J3370; J3475; J3480; J7030; J7040; J7042; J7050; J7070; P9016

== ENCOUNTER 2016-11-12 22:44 | Inpatient (IN) | payer MEDICARE, OTHER ==
[~2016-11-12] VITALS: Ht 172.7 cm; Wt 96.6 kg
[2016-11-12] MEDS ORDERED: SOD CHLORIDE 0.9% 1,000 ML IV ONE (23:30)
[2016-11-12 23:52] LABS: AADO2 Arterial 146.7 mmHg (7.0-24.0); Allen Test ACCEPTAB; Arterial Base Excess -7.3 mmol/L (-3.0-3); Arterial COHb 0.2 % (0.0-3.0); Arterial Fraction of Oxyhgb 92.8 % (93.0-99.0); Arterial MetHb 0.5 % (0.0-1.5); Arterial Total Hemglobin 9.9 g/dl (12.0-18.0); Blood Gas Low PEEP Setting 0 cmH2O; MODE VENT - AC
[2016-11-13] VITALS (16 sets, daily range): BP systolic 80–138; BP diastolic 50–77; PULSE 84–106; RESP 14–30; TEMP 98.1; Ht 172.7 cm; Wt 96.6 kg
[2016-11-13] MEDS ORDERED: NORepinephrine 8MG/250 ML (PMX 250 ML IV SCH
[2016-11-13 00:37] LABS: ADD SCAN DIFF NO
[2016-11-13 00:43] LABS: BASOPHILS % 0.2 % (0.0-2.0); EOSINOPHILS # 0.4 10^3/ul (0.0-0.5); EOSINOPHILS % 3.7 % (0.0-7.0); HEMOGLOBIN 8.4 g/dl (14.0-18.0); LYMPHOCYTES # 3.4 10^3/ul (0.8-2.9); LYMPHOCYTES % 31.1 % (15.0-51.0); MEAN CORPUSCULAR HEMOGLOBIN 26.7 pg (29.0-33.0); MEAN CORPUSCULAR VOLUME 88.9 fl (82.0-101.0); MEAN PLATELET VOLUME 10.8 fl (7.4-10.4); MONOCYTE # 0.9 10^3/ul (0.3-0.9); MONOCYTES % 8.1 % (0.0-11.0); NEUTROPHIL # 6.1 10^3/ul (1.6-7.5); NEUTROPHILS % 56.2 % (39.0-77.0); PLATELET COUNT 219 10^3/UL (140-415); RED BLOOD COUNT 3.15 10^6/ul (4.70-6.10); RED CELL DISTRIBUTION WIDTH 19.3 % (11.5-14.5)
[2016-11-13 01:03] LABS: ALBUMIN 1.7 g/dl (3.3-4.9); ALBUMIN/GLOBULIN RATIO 0.56; CALCIUM 8.7 mg/dl (8.4-10.2); CREATININE 1.74 mg/dl (0.61-1.24); TOTAL PROTEIN 4.7 g/dl (6.1-8.1)
[2016-11-13 01:07] LABS: INR 2.2; PROTIME 24.7 Sec (12.2-14.2); PT RATIO 1.9
[2016-11-13 01:08] LABS: PARTIAL THROMBOPLASTIN TIME 49.2 Sec (25.0-35.0)
[2016-11-13 01:12] LABS: TROPONIN-I 0.017 ng/ml (0.00-0.12)
[2016-11-13 01:28] LABS: ADD UMIC YES; URINE BILIRUBIN (Dip) 1+ (NEGATIVE); URINE BLOOD (Dip) 2+ (NEGATIVE); URINE COLOR DK. YELLOW (YELLOW); URINE GLUCOSE (Dip) NEGATIVE (NEGATIVE); URINE KETONES (Dip) TRACE (NEGATIVE); URINE LEUKOCYTE ESTERASE (Dip) 3+ (NEGATIVE); URINE NITRITE (Dip) POSITIVE (NEGATIVE); URINE TOTAL PROTEIN (Dip) 2+ (NEGATIVE); URINE UROBILINOGEN (Dip) 0.2 E.U./dL (0.1-1.0)
[2016-11-13] MEDS ORDERED: SOD CHLORIDE 0.9% 1,000 ML IV ONE ×2 (02:00)
[2016-11-13] MEDS ORDERED: PIPER-TAZO 3.375 GM IV (PMX) 100 ML IVPB ONE (02:00)
[2016-11-13 02:17] LABS: BACTERIA,URINE MANY; ICTOTEST NEGATIVE (NEGATIVE); SQUAMOUS EPITHELIAL CELL,UR FEW; URINE RBCS >50 /HPF (0)
[2016-11-13] MEDS ORDERED: DEXTROSE 50% 50 ML SYRINGE IV ONE (02:30)
[2016-11-13] MEDS ORDERED: CEFEPIME 1GM/50 ML (PMX) 50 ML IVPB ONE (02:30)
[2016-11-13] MEDS ORDERED: VANCOMYCIN 1 GM (PMX) 250 ML IVPB SCH (03:00)
--- NOTE | 2016-11-13 04:44 | RADRPT ---
PROCEDURE: CT abdomen and pelvis without intravenous contrast. CLINICAL INDICATION: Pain. TECHNIQUE: CT of the abdomen/pelvis was performed utilizing axial images with reconstructions in s agittal and coronal planes. The administered radiation dose is CTDI 21 mGy, DLP 1607 mGy-cm. COMPARISON: 11/05/2016 FINDINGS: Visualized Chest: There are moderate bilateral pleural effusions with associated atelectasis. The b oth lower lobes are likely completely collapsed. There is moderate cardiomegaly. Coronary artery c alcifications are noted. Abdomen: The liver, spleen, pancreas, gallbladder,and adrenal glands are unremarkable. The kidneys are without hydronephrosis. No definite urinary calculi are seen. Bilateral renal cysts are noted. A percutaneous gastrostomy tube tip is within the stomach. There is no evidence of bowel obstructio n. The appendix is normal. No intra-abdominal free air is seen. There is no evidence of intra-abdominal adenopathy. An inferior vena cava filter is present. Athero sclerotic calcifications are noted in the aorta and its branches. There is large intra-abdominal ascites. Diffuse anasarca is present. Pelvis: The urinary bladder is collapsed around a Ferreira catheter. The prostate is unremarkable. There is s ome ascites within the pelvis. No pelvic adenopathy is identified. Extensive scrotal skin thickening and edema are noted. Osseous structures: Unremarkable. IMPRESSION: No acute findings. Moderate bilateral pleural effusions with extensive associated atelectasis. Concurrent pneumonia wou ld not be excluded. Large intra-abdominal ascites and anasarca. RPTAT: HIKT .Kamron Bonner MD, MD Date Time Electronically viewed and signed by .Kamron Bonner MD, MD on 11/13/2016 04:44 .T/
--- NOTE | 2016-11-13 05:47 | HP ---
Date/Time of Note Date/Time of Note DATE: 11/13/16 TIME: 05:42 Assessment/Plan Assessment/Plan Assessment/Plan 1) Sepsis ,with hypotension requiring pressor support, due to UTI, organism unknown - Admit to ICU 2) UTI 3) Chronic Respiratory Failure UTI (urinary tract infection) Additional Impressions: Septic shock Renal insufficiency Anemia Altered mental status Respiratory failure HPI/ROS Admit Date/Time Admit Date/Time 11/13/16 0433 Hx of Present Illness History as per ER Physician as patient is intubated and there is no family present.:This 76-year-old female was transferred from [facility] for low blood pressure to the emergency room. Hhe had previously been admitted for UTI with sepsis and was in the regular hospital before he had great improvement and was transferred for respiratory rehabilitation to [place]. Patient is nonverbal because he is intubated. Aside from the low blood pressure there are no other unstable vital signs or change in patient condition reported. ER Course per ER Physician: Patient with UTI with sepsis. The same thing she was previously admitted to. Is initially given 30 mL/kg IV fluid. Her pressure did remain low. He was started on Levophed. Laboratories returned with a nitrate positive UTI with greater than 200 white blood cells. He had arty been treated empirically with vancomycin and Zosyn for sepsis. I noted that her urine was sensitive to cefepime and imipenem. I ordered a dose of cefepime at that time. Small dose of leave affect patient blood pressure was easy to control. Lactic acid was elevated at 6.2 and he was given additional liter of fluid lactic acid decreased only mildly. CT with no abscesses present but evidence of already known diagnosis of ascites with liver failure. Patient also had hypoglycemia and was given a amp of D50. CT and x-ray cardio the radiologist to speak of inability to rule out pneumonia. Patient is currently covered for this condition as well. Spoke with Dr. Talia Solis will be admitting the patient to the ICU. Perfusion Reassessment for Septic Shock: Time O211 Temp 98.2, Pulse 101, RR 20, BP 98/47 Heart Exam: Tachycardic Lung Exam: No Crackles Capillary Refill: Approximately 1-1/2 seconds. Peripheral Pulses: Radially present Skin: , pale ROS No additional ROS available due to patient's condition. 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; NSTEMI, PEG TUBE; DM; CKD: MULTIPLE PRESSURE ULCERS: DEPRESSION Past Surgical History R KNEE; PEG TUBE; TRACH Past Surgical Hx: other Social History Smoking Status: Unknown if ever smoked Exam/Review of Systems Vital Signs Vitals Vital Signs Date Time Temp Pulse Resp B/P Pulse Ox O2 Delivery O2 Flow Rate FiO2 11/13/16 04:57 96 99/68 11/13/16 04:30 98.7 14 96 Mechanical Ventilator 11/13/16 03:10 35 Intake and Output 11/12/16 11/12/16 11/13/16 15:00 23:00 07:00 Intake Total 1000 ml Balance 1000 ml Exam Exam General: Eyes: Sclera White, EOMI HENT: Normocephalic/Atraumatic, External Ears/Nose Normal, Moist Mucus Membranes Neck: Supple, Trachea Midline Cardiovascular: Normal Rate, Regular Rhythm, Normal S1 and S2, No Murmur, No Extra Sounds. Radial pulse +2/4. No pedal Edema. Pulmonary: Clear to Auscultation Bilaterally, Normal Respiratory Effort, No Rales, Rhonchi or Wheezes Gastrointestinal: Normoactive Bowel Sounds, Soft, Non-Tender/Non-Distended, No Hepatosplenomegaly Appreciated, No Pulsatile Masses Urogenital: Deferred Musculoskeletal: Normal Muscle Bulk and Tone Neurological: CN II - XII Grossly Intact, Non-Focal, Speech Normal Integumentary: Normal Moisture and Temperature, Good Turgor, No Jaundice, No Rash Lymphatic: No Cervical Lymphadenopathy Psychiatric: Appropriate Mood and Affect, Good Eye Contact Const: [] Mild distress, patient on ventilator, mild diaphoresis Head: Atraumatic Eyes: Normal Conjunctiva, pupils minimally responsive to light, able to test for extraocular muscle ENT: Normal External Ears, Nose and Mouth. Tympanic membranes clear bilaterally. ET tube in place. Neck: No JVD. Trachea midline and mobile Resp: Rhonchorous breath sounds bilaterally with apical ventilation Cardio: Regular tachycardia, no murmurs Abd: Soft, mild to moderate distention. Normal bowel sounds Skin: Mild, mild diaphoresis Ext: No cyanosis, or edema Neur: Patient unresponsive, positive corneal reflex Labs Result Diagram: 11/13/16 0010 11/13/16 0010 Medications Medications Home Meds Active Scripts Levofloxacin* (Levaquin*) 750 Mg Tablet, 750 MG GTB DAILY@06 for 10 Days, TAB Prov:DILIP ARELLANO MD 10/02/16 Diltiazem Hcl* (Cardizem*) 60 Mg Tablet, 60 MG GTB Q8 for 30 Days, TAB Prov:DILIP ARELLANO MD 10/02/16 Digoxin* (Digitek*) 125 Mcg Tablet, 0.125 MG GTB DAILY@13 for 30 Days, TAB Prov:DILIP ARELLANO MD 10/02/16 Collagenase* (Santyl*) 30 Gm Oint..gm., 1 APPLIC TOP DAILY for 30 Days Prov:DILIP ARELLANO MD 10/02/16 Aspirin (Aspir-Elvira) 325 Mg Tablet.dr, 325 MG PO DAILY, #30 Prov:DILIP ARELLANO MD 10/02/16 Amiodarone Hcl* (Amiodarone Hcl*) 200 Mg Tablet, 400 MG GTB BID for 30 Days, TAB Prov:DILIP ARELLANO MD 10/02/16 Reported Medications Multivitamins* (Theragran*) 1 Tab Tab, 1 TAB GTB DAILY, TAB 07/31/16 Fenofibrate, Micronized* (Fenofibrate*) 160 Mg Tablet, 160 MG GTB DAILY, TAB 07/31/16 Ferrous Sulfate (Ferrous Sulfate) 220 Mg/5 Ml Elixir, 7.5 ML GTB DAILY, BOTTLE 07/31/16 Acidophilus-Bulgaricus* (BD Lactinex*) 1 Pkt Packet, 1 PKT GTB BID, PACKET 07/31/16 Albuterol Sulfate* (Albuterol Sulfate* Neb) 0.083%-3 Ml Neb, 2.5 MG NEB Q3H Y for WHEEZING AND SOB, #30 VIAL 07/31/16 Acetaminophen* (Acetaminophen*) 650 Mg Tablet, 650 MG GTB Q4 Y for MILD PAIN LEVEL 1-3, #30 TAB 07/31/16 Cran/Vitc/Mannose/Inulin/Brom (Uti-Stat Liquid) 3,875 Mg/30 Ml Liquid, 3875 MG GTB BID 07/31/16 Ascorbic Acid* (Vitamin C* Liq) 500 Mg/5 Ml Syrup, 500 MG GTB DAILY, ML 07/31/16 Na Phos,M-B/Na Phos,Di-Ba (ENEMA READY TO USE) 135 Ml Enema, 135 ML RC PRN Y for CONSTIPATION, ENEMA 07/31/16 Atorvastatin Calcium* (Atorvastatin Calcium*) 20 Mg Tablet, 20 MG GTB QHS, #30 TAB 07/31/16 Magnesium Hydroxide* (Milk Of Magnesia*) 400 Mg/5 Ml Oral.susp, 30 ML GTB DAILY Y for CONSTIPATION, ML 07/31/16 Omeprazole* (Omeprazole*) 20 Mg Capsule.dr, 20 MG GTB DAILY, #30 CAP GIVE 30MIN PRIOR TO FEEDING 07/31/16 Docusate Sodium* (Colace*) 100 Mg Capsule, 100 MG GTB DAILY Y for CONSTIPATION, #30 CAP 07/31/16 Chlorhexidine Gluconate (Peridex) 473 Ml Mouthwash, 15 ML MM Q12, BOTTLE 07/31/16 Current Medications Medications (Trade) Dose Ordered Sig/Davidson Route PRN Reason Start Time Stop Time Status Last Admin Dose Admin Sodium Chloride 1,000 ml @ 1,000 mls/hr Q1H ONCE IV 11/12/16 23:30 11/13/16 00:29 DC 11/12/16 23:42 Norepinephrine 250 ml @ 1.875 mls/ hr TITRATE IV 11/13/16 00:00 Norepinephrine 16 mg/Dextrose 500 ml @ 1.87 mls/hr TITRATE IV 11/13/16 01:00 11/13/16 01:31 Sodium Chloride 1,000 ml @ 1,000 mls/hr Q1H ONCE IV 11/13/16 02:00 11/13/16 02:59 DC 11/13/16 01:49 Sodium Chloride 1,000 ml @ 1,000 mls/hr Q1H ONCE IV 11/13/16 02:00 11/13/16 02:59 DC 11/13/16 01:49 Piperacillin Sod/ Tazobactam Sod 100 ml @ 200 mls/hr ONCE ONCE IVPB 11/13/16 02:00 11/13/16 02:29 DC 11/13/16 02:23 Vancomycin HCl 250 ml @ 125 mls/hr ONCE IVPB 11/13/16 03:00 11/13/16 04:59 DC 11/13/16 04:02 Cefepime HCl (Maxipime 1gm/50 ml (Pmx)) 50 ml @ 100 mls/hr ONCE ONCE IVPB 11/13/16 02:30 11/13/16 02:59 DC 11/13/16 03:17 Dextrose 50 ml 50 ml ONCE ONCE IV 11/13/16 02:30 11/13/16 02:31 DC 11/13/16 03:17 Sodium Chloride 1,000 ml @ 1,000 mls/hr Q1H IV 11/13/16 05:43 11/13/16 07:42 Dobutamine HCl/ Dextrose 250 ml @ 12.75 mls/ hr TITRATE IV 11/13/16 06:00 Cefepime HCl (Maxipime 2gm/50 ml (Pmx)) 50 ml @ 100 mls/hr Q12 IVPB 11/13/16 09:00 Nitroglycerin (Nitroglycerin (Sl Tab) 0.4 Mg) 1 tab Q5M PRN SL CHEST PAIN 11/13/16 06:00 Famotidine (Pepcid Iv) 20 mg Q12 IV 11/13/16 09:00 11/13/16 09:00 DC Famotidine (Pepcid Iv) 20 mg DAILY IV 11/13/16 09:00 Procedures Procedures Laboratory Tests Test 11/12/16 23:06 11/13/16 00:10 11/13/16 02:18 11/13/16 05:40 Blood Gas Specimen Source Blood arterial Arterial Blood Date Drawn 11/12/2016 11:40:14 PM Arterial Blood pH (Temp corrected) 7.417 Arterial Blood pCO2 (Temp correct) 25.4mmhg Arterial Blood pO2 (Temp corrected) 73.3mmHG Arterial Blood HCO3 16.0mmol/L Arterial Blood Base Excess -7.3mmol/L Arterial Blood Oxygen Saturation 93.5mmHG Vinayak Test ACCEPTAB Arterial Blood Gas Puncture Site Right Radial Arterial Blood Carboxyhemoglobin 0.2% Arterial Blood Methemoglobin 0.5% Blood Gas A-a O2 Differential 146.7mmHg Oxyhemoglobin Percent 92.8% Total Hemoglobin 9.9g/dl Blood Gas Temperature 37.0C Blood Gas Respiration Rate 12.0 Blood Gas Actual Respiration Rate 16 Blood Gas Modality VENT - AC FiO2 35.0% Blood Gas Tidal Volume 550.0mL Blood Gas Low PEEP Setting 0cmH2O Blood Gas Notified Whom MA Blood Gas Notified Time 11/12/2016 11:52:48 PM White Blood Count 11.010^3/ul Red Blood Count 3.1510^6/ul Hemoglobin 8.4g/dl Hematocrit 28.0% Mean Corpuscular Volume 88.9fl Mean Corpuscular Hemoglobin 26.7pg Mean Corpuscular Hemoglobin Concent 30.0g/dl Red Cell Distribution Width 19.3% Platelet Count 35215^3/UL Mean Platelet Volume 10.8fl Neutrophils % 56.2% Lymphocytes % 31.1% Monocytes % 8.1% Eosinophils % 3.7% Basophils % 0.2% Nucleated Red Blood Cells % 0.0/100WBC Neutrophils # 6.110^3/ul Lymphocytes # 3.410^3/ul Monocytes # 0.910^3/ul Eosinophils # 0.410^3/ul Basophils # 0.010^3/ul Nucleated Red Blood Cells # 0.010^3/ul Prothrombin Time 24.7Sec Prothrombin Time Ratio 1.9 INR International Normalized Ratio 2.20 Activated Partial Thromboplast Time 49.2Sec Urine Color DK. YELLOW Urine Clarity CLEAR Urine pH 5.5 Urine Specific [place] 1.020 Urine Ketones TRACE Urine Nitrite POSITIVE Urine Bilirubin 1+ Urine Ictotest NEGATIVE Urine Urobilinogen 0.2 E.U./dL Urine Leukocyte Esterase 3+ Urine Microscopic RBC >50/HPF Urine Microscopic WBC >200/HPF Urine Squamous Epithelial Cells FEW Urine Bacteria MANY Urine Yeast MODERATE Urine Hemoglobin 2+ Urine Glucose NEGATIVE% Urine Total Protein 2+ Sodium Level 135mmol/L Potassium Level 4.0mmol/L Chloride Level 107mmol/L Carbon Dioxide Level 17mmol/L Anion Gap 15 Blood Urea Nitrogen 27mg/dl Creatinine 1.74mg/dl Glucose Level 68mg/dl Lactic Acid Level 6.2mmol/L 6.0mmol/L 5.9mmol/L Calcium Level 8.7mg/dl Total Bilirubin mg/dl Direct Bilirubin mg/dl Indirect Bilirubin mg/dl Aspartate Amino Transf (AST/SGOT) 28IU/L Alanine Aminotransferase (ALT/SGPT) 15IU/L Alkaline Phosphatase 316IU/L Troponin I 0.017ng/ml Total Protein 4.7g/dl Albumin 1.7g/dl Globulin 3.00g/dl Albumin/Globulin Ratio 0.56 EKG: Interpretation by ERPhysician: Mild sinus tachycardia, no ST or T-wave changes concerning for acute ischemia, no concerning intervals. PROCEDURE: CT abdomen and pelvis without intravenous contrast. CLINICAL INDICATION: Pain. TECHNIQUE: CT of the abdomen/pelvis was performed utilizing axial images with reconstructions in sagittal and coronal planes. The administered radiation dose is CTDI 21 mGy, DLP 1607 mGy-cm. COMPARISON: 11/05/2016 IMPRESSION: No acute findings. Moderate bilateral pleural effusions with extensive associated atelectasis. Concurrent pneumonia would not be excluded. Large intra-abdominal ascites and anasarca. TALIA SOLIS DO Nov 13, 2016 05:47 Procedures Procedures Conclusions 1. Normal left ventricular systolic function. Normal left ventricular cavity size. Mild asymmetric septal hypertrophy. Ejection fraction is visually estimated at 55 %. Tissue Doppler/Mitral Doppler indices are consistent with impaired relaxation (Stage I diastolic dysfunction). 2. Normal right ventricular size. Normal right ventricular systolic function. 3. The left atrium is normal in size. 4. The right atrium is normal in size. 5. No significant valvular stenosis or regurgitation seen. 6. Normal pericardium with no significant pericardial effusion. PROCEDURE: CT abdomen and pelvis without intravenous contrast. CLINICAL INDICATION: Pain. TECHNIQUE: CT of the abdomen/pelvis was performed utilizing axial images with reconstructions in sagittal and coronal planes. The administered radiation dose is CTDI 21 mGy, DLP 1607 mGy-cm. COMPARISON: 11/05/2016
[2016-11-13] MEDS ORDERED: NITROGLYCERIN (SL) 0.4 MG TAB SL PRN (06:00)
[2016-11-13] MEDS ORDERED: DOBUTamine/D5W 1 MG/ML DRIP 250 ML IV SCH (06:00)
--- NOTE | 2016-11-13 06:26 | ERA ---
ER Documentation Chief Complaint Date/Time DATE: 11/13/16 TIME: 06:14 Chief Complaint RECEIVED PT FROM [facility] W LOW BP ON THE 60S WHEN THEY GOT THE PT FROM TELE HPI This 76-year-old female was transferred from [facility] for low blood pressure to the emergency room. She had previously been admitted for UTI with sepsis and was in the regular hospital before she had great improvement and was transferred for respiratory rehabilitation to [place]. Patient herself is nonverbal because she is intubated. Side from the low blood pressure there are no other unstable vital signs or change in patient condition reported. ROS Unobtainable. Medications Home Meds Active Scripts Levofloxacin* (Levaquin*) 750 Mg Tablet, 750 MG GTB DAILY@06 for 10 Days, TAB Prov:DILIP ARELLANO MD 10/02/16 Diltiazem Hcl* (Cardizem*) 60 Mg Tablet, 60 MG GTB Q8 for 30 Days, TAB Prov:DILIP ARELLANO MD 10/02/16 Digoxin* (Digitek*) 125 Mcg Tablet, 0.125 MG GTB DAILY@13 for 30 Days, TAB Prov:DILIP ARELLANO MD 10/02/16 Collagenase* (Santyl*) 30 Gm Oint..gm., 1 APPLIC TOP DAILY for 30 Days Prov:DILIP ARELLANO MD 10/02/16 Aspirin (Aspir-Elvira) 325 Mg Tablet.dr, 325 MG PO DAILY, #30 Prov:DILIP ARELLANO MD 10/02/16 Amiodarone Hcl* (Amiodarone Hcl*) 200 Mg Tablet, 400 MG GTB BID for 30 Days, TAB Prov:DILIP ARELLANO MD 10/02/16 Reported Medications Multivitamins* (Theragran*) 1 Tab Tab, 1 TAB GTB DAILY, TAB 07/31/16 Fenofibrate, Micronized* (Fenofibrate*) 160 Mg Tablet, 160 MG GTB DAILY, TAB 07/31/16 Ferrous Sulfate (Ferrous Sulfate) 220 Mg/5 Ml Elixir, 7.5 ML GTB DAILY, BOTTLE 07/31/16 Acidophilus-Bulgaricus* (BD Lactinex*) 1 Pkt Packet, 1 PKT GTB BID, PACKET 07/31/16 Albuterol Sulfate* (Albuterol Sulfate* Neb) 0.083%-3 Ml Neb, 2.5 MG NEB Q3H Y for WHEEZING AND SOB, #30 VIAL 07/31/16 Acetaminophen* (Acetaminophen*) 650 Mg Tablet, 650 MG GTB Q4 Y for MILD PAIN LEVEL 1-3, #30 TAB 07/31/16 Cran/Vitc/Mannose/Inulin/Brom (Uti-Stat Liquid) 3,875 Mg/30 Ml Liquid, 3875 MG GTB BID 07/31/16 Ascorbic Acid* (Vitamin C* Liq) 500 Mg/5 Ml Syrup, 500 MG GTB DAILY, ML 07/31/16 Na Phos,M-B/Na Phos,Di-Ba (ENEMA READY TO USE) 135 Ml Enema, 135 ML RC PRN Y for CONSTIPATION, ENEMA 07/31/16 Atorvastatin Calcium* (Atorvastatin Calcium*) 20 Mg Tablet, 20 MG GTB QHS, #30 TAB 07/31/16 Magnesium Hydroxide* (Milk Of Magnesia*) 400 Mg/5 Ml Oral.susp, 30 ML GTB DAILY Y for CONSTIPATION, ML 07/31/16 Omeprazole* (Omeprazole*) 20 Mg Capsule.dr, 20 MG GTB DAILY, #30 CAP GIVE 30MIN PRIOR TO FEEDING 07/31/16 Docusate Sodium* (Colace*) 100 Mg Capsule, 100 MG GTB DAILY Y for CONSTIPATION, #30 CAP 07/31/16 Chlorhexidine Gluconate (Peridex) 473 Ml Mouthwash, 15 ML MM Q12, BOTTLE 07/31/16 Allergies Allergies: Coded Allergies: No Known Drug Allergies (Verified Allergy, Unknown, 11/12/16) PMhx/Soc History of Surgery: Yes (R KNEE, PEG TUBE, TRACH) Anesthesia Reaction: No Hx Neurological Disorder: No Hx Respiratory Disorders: Yes (RESP FAILURE, TRACH TO VENT) Hx Cardiac Disorders: Yes (NSTEMI) Hx Psychiatric Problems: Yes (DEPRESSION) Hx Miscellaneous Medical Probl: Yes (PEG TUBE, DM, CKD, MULTIPLE PRESSURE ULCERS) Hx Alcohol Use: No Hx Substance Use: No Hx Tobacco Use: No Smoking Status: Unknown if ever smoked Physical Exam Vitals Vital Signs Date Time Temp Pulse Resp B/P Pulse Ox O2 Delivery O2 Flow Rate FiO2 11/13/16 05:25 92 17 96 35 11/13/16 04:57 96 99/68 11/13/16 04:30 98.7 100 14 95/66 96 Mechanical Ventilator 11/13/16 04:00 102 94/65 11/13/16 03:30 99.2 100 14 109/72 96 Mechanical Ventilator 11/13/16 03:10 100 18 94 35 11/13/16 03:00 99 98/60 11/13/16 02:30 99.0 99 14 87/61 96 Mechanical Ventilator 11/13/16 02:00 99.0 92 14 92/58 96 Mechanical Ventilator 11/13/16 01:30 98 73/55 11/13/16 01:20 99 66/49 11/13/16 01:00 99 18 98 35 11/13/16 01:00 98.9 99 14 69/50 98 Mechanical Ventilator 11/12/16 23:42 99.0 106 14 88/58 97 Mechanical Ventilator 11/12/16 22:50 105 14 97 35 11/12/16 22:47 99.2 105 18 63/41 100 Physical Exam Const: [] Mild distress, patient on ventilator, mild diaphoresis Head: Atraumatic Eyes: Normal Conjunctiva, pupils minimally responsive to light, able to test for extraocular muscle ENT: Normal External Ears, Nose and Mouth. Tympanic membranes clear bilaterally. ET tube in place. Neck: No JVD. Trachea midline and mobile Resp: Rhonchorous breath sounds bilaterally with apical ventilation Cardio: Regular tachycardia, no murmurs Abd: Soft, mild to moderate distention. Normal bowel sounds Skin: Mild, mild diaphoresis Ext: No cyanosis, or edema Neur: Patient unresponsive, positive corneal reflex Result Diagram: 11/13/16 0010 11/13/16 0010 Results 24 hrs Laboratory Tests Test 11/12/16 23:06 11/13/16 00:10 11/13/16 02:18 11/13/16 05:40 Blood Gas Specimen Source Blood arterial Arterial Blood Date Drawn 11/12/2016 11:40:14 PM Arterial Blood pH (Temp corrected) 7.417 Arterial Blood pCO2 (Temp correct) 25.4mmhg Arterial Blood pO2 (Temp corrected) 73.3mmHG Arterial Blood HCO3 16.0mmol/L Arterial Blood Base Excess -7.3mmol/L Arterial Blood Oxygen Saturation 93.5mmHG Vinayak Test ACCEPTAB Arterial Blood Gas Puncture Site Right Radial Arterial Blood Carboxyhemoglobin 0.2% Arterial Blood Methemoglobin 0.5% Blood Gas A-a O2 Differential 146.7mmHg Oxyhemoglobin Percent 92.8% Total Hemoglobin 9.9g/dl Blood Gas Temperature 37.0C Blood Gas Respiration Rate 12.0 Blood Gas Actual Respiration Rate 16 Blood Gas Modality VENT - AC FiO2 35.0% Blood Gas Tidal Volume 550.0mL Blood Gas Low PEEP Setting 0cmH2O Blood Gas Notified Whom MA Blood Gas Notified Time 11/12/2016 11:52:48 PM White Blood Count 11.010^3/ul Red Blood Count 3.1510^6/ul Hemoglobin 8.4g/dl Hematocrit 28.0% Mean Corpuscular Volume 88.9fl Mean Corpuscular Hemoglobin 26.7pg Mean Corpuscular Hemoglobin Concent 30.0g/dl Red Cell Distribution Width 19.3% Platelet Count 93509^3/UL Mean Platelet Volume 10.8fl Neutrophils % 56.2% Lymphocytes % 31.1% Monocytes % 8.1% Eosinophils % 3.7% Basophils % 0.2% Nucleated Red Blood Cells % 0.0/100WBC Neutrophils # 6.110^3/ul Lymphocytes # 3.410^3/ul Monocytes # 0.910^3/ul Eosinophils # 0.410^3/ul Basophils # 0.010^3/ul Nucleated Red Blood Cells # 0.010^3/ul Prothrombin Time 24.7Sec Prothrombin Time Ratio 1.9 INR International Normalized Ratio 2.20 Activated Partial Thromboplast Time 49.2Sec Urine Color DK. YELLOW Urine Clarity CLEAR Urine pH 5.5 Urine Specific [place] 1.020 Urine Ketones TRACE Urine Nitrite POSITIVE Urine Bilirubin 1+ Urine Ictotest NEGATIVE Urine Urobilinogen 0.2 E.U./dL Urine Leukocyte Esterase 3+ Urine Microscopic RBC >50/HPF Urine Microscopic WBC >200/HPF Urine Squamous Epithelial Cells FEW Urine Bacteria MANY Urine Yeast MODERATE Urine Hemoglobin 2+ Urine Glucose NEGATIVE% Urine Total Protein 2+ Sodium Level 135mmol/L Potassium Level 4.0mmol/L Chloride Level 107mmol/L Carbon Dioxide Level 17mmol/L Anion Gap 15 Blood Urea Nitrogen 27mg/dl Creatinine 1.74mg/dl Glucose Level 68mg/dl Lactic Acid Level 6.2mmol/L 6.0mmol/L 5.9mmol/L Calcium Level 8.7mg/dl Total Bilirubin mg/dl Direct Bilirubin mg/dl Indirect Bilirubin mg/dl Aspartate Amino Transf (AST/SGOT) 28IU/L Alanine Aminotransferase (ALT/SGPT) 15IU/L Alkaline Phosphatase 316IU/L Troponin I 0.017ng/ml Total Protein 4.7g/dl Albumin 1.7g/dl Globulin 3.00g/dl Albumin/Globulin Ratio 0.56 Current Medications Medications (Trade) Dose Ordered Sig/Davidson Route PRN Reason Start Time Stop Time Status Last Admin Dose Admin Sodium Chloride 1,000 ml @ 1,000 mls/hr Q1H ONCE IV 11/12/16 23:30 11/13/16 00:29 DC 11/12/16 23:42 Norepinephrine 250 ml @ 1.875 mls/ hr TITRATE IV 11/13/16 00:00 Norepinephrine 16 mg/Dextrose 500 ml @ 1.87 mls/hr TITRATE IV 11/13/16 01:00 11/13/16 01:31 Sodium Chloride 1,000 ml @ 1,000 mls/hr Q1H ONCE IV 11/13/16 02:00 11/13/16 02:59 DC 11/13/16 01:49 Sodium Chloride 1,000 ml @ 1,000 mls/hr Q1H ONCE IV 11/13/16 02:00 11/13/16 02:59 DC 11/13/16 01:49 Piperacillin Sod/ Tazobactam Sod 100 ml @ 200 mls/hr ONCE ONCE IVPB 11/13/16 02:00 11/13/16 02:29 DC 11/13/16 02:23 Vancomycin HCl 250 ml @ 125 mls/hr ONCE IVPB 11/13/16 03:00 11/13/16 04:59 DC 11/13/16 04:02 Cefepime HCl (Maxipime 1gm/50 ml (Pmx)) 50 ml @ 100 mls/hr ONCE ONCE IVPB 11/13/16 02:30 11/13/16 02:59 DC 11/13/16 03:17 Dextrose 50 ml 50 ml ONCE ONCE IV 11/13/16 02:30 11/13/16 02:31 DC 11/13/16 03:17 Sodium Chloride 1,000 ml @ 1,000 mls/hr Q1H IV 11/13/16 05:43 11/13/16 07:42 Dobutamine HCl/ Dextrose 250 ml @ 12.75 mls/ hr TITRATE IV 11/13/16 06:00 Cefepime HCl (Maxipime 2gm/50 ml (Pmx)) 50 ml @ 100 mls/hr Q12 IVPB 11/13/16 09:00 Nitroglycerin (Nitroglycerin (Sl Tab) 0.4 Mg) 1 tab Q5M PRN SL CHEST PAIN 11/13/16 06:00 Famotidine (Pepcid Iv) 20 mg Q12 IV 11/13/16 09:00 11/13/16 09:00 DC Famotidine (Pepcid Iv) 20 mg DAILY IV 11/13/16 09:00 Procedures/MDM Patient with UTI with sepsis. The same thing she was previously admitted to. Is initially given 30 mL/kg IV fluid. Her pressure did remain low. She was started on Levophed. Laboratories returned with a nitrate positive UTI with greater than 200 white blood cells. She had arty been treated empirically with vancomycin and Zosyn for sepsis. I noted that her urine was sensitive to cefepime and imipenem. I ordered a dose of cefepime at that time. Small dose of leave affect patient blood pressure was easy to control. Lactic acid was elevated at 6.2 and she was given additional liter of fluid lactic acid decreased only mildly. CT with no abscesses present but evidence of arty known diagnosis of ascites with liver failure. Patient also had hypoglycemia and was given a amp of D50. CT and x-ray cardio the radiologist to speak of inability to rule out pneumonia. Patient is currently covered for this condition as well. Spoke with Dr. Talia Max will be admitting the patient to the ICU. EKG interpretation: Mild sinus tachycardia, no ST or T-wave changes concerning for acute ischemia, no concerning intervals. Cardio monitor interpretation: Persistent mild sinus tachycardia and with fluid administration. No other arrhythmias Chest x-ray interpretation: Mild pleural effusions with no obvious infiltrates, I see no pneumothorax, no widened mediastinum, no fractures CT abdomen and pelvis interpretation: Evidence of liver cirrhosis with ascites, no obstruction, no free air, no fractures Critical care time 44 minutes: This includes management of UTI with sepsis, possible pneumonia, careful fluid administration, appropriate antibiotic administration, ventilator management, use of vasodepressors to maintain blood pressure, chart review, discussion with admitting doctor. This time does not include any both procedures. Perfusion Reassessment for Septic Shock: Time O211 Temp 98.2, Pulse 101, RR 20, BP 98/47 Heart Exam: Tachycardic Lung Exam: No Crackles Capillary Refill: Approximately 1-1/2 seconds. Peripheral Pulses: Radially present Skin: , pale Departure Diagnosis: Primary Impression: UTI (urinary tract infection) Additional Impressions: Septic shock Renal insufficiency Anemia Altered mental status Respiratory failure Condition: Critical OTTONIEL GIBBS DO Nov 13, 2016 06:26
[2016-11-13] MEDS: SOD CHLORIDE 0.9% 1,000 ML IV SCH ×2 (06:43→09:31)
[2016-11-13 08:36] LABS: ADD SCAN DIFF NO
[2016-11-13 08:41] LABS: BASOPHILS % 0.3 % (0.0-2.0); EOSINOPHILS # 0.6 10^3/ul (0.0-0.5); EOSINOPHILS % 4.8 % (0.0-7.0); HEMATOCRIT 31.1 % (42.0-52.0); HEMOGLOBIN 9.3 g/dl (14.0-18.0); LYMPHOCYTES # 3.5 10^3/ul (0.8-2.9); LYMPHOCYTES % 29.4 % (15.0-51.0); MEAN CORPUSCULAR HEMOGLOBIN 26.3 pg (29.0-33.0); MEAN CORPUSCULAR HGB CONC 29.9 g/dl (32.0-37.0); MEAN CORPUSCULAR VOLUME 88.1 fl (82.0-101.0); MEAN PLATELET VOLUME 10.9 fl (7.4-10.4); MONOCYTE # 0.9 10^3/ul (0.3-0.9); MONOCYTES % 7.7 % (0.0-11.0); NEUTROPHIL # 6.8 10^3/ul (1.6-7.5); NEUTROPHILS % 57.1 % (39.0-77.0); PLATELET COUNT 243 10^3/UL (140-415); RED BLOOD COUNT 3.53 10^6/ul (4.70-6.10); RED CELL DISTRIBUTION WIDTH 19.3 % (11.5-14.5); WHITE BLOOD COUNT 11.9 10^3/ul (4.8-10.8)
[2016-11-13 08:51] LABS: INR 2.04; PROTIME 23.2 Sec (12.2-14.2); PT RATIO 1.8
[2016-11-13 08:52] LABS: ALBUMIN 1.8 g/dl (3.3-4.9); PARTIAL THROMBOPLASTIN TIME 51.6 Sec (25.0-35.0)
[2016-11-13 08:53] LABS: POTASSIUM 3.5 mmol/L (3.5-5.1)
[2016-11-13 08:55] LABS: ALBUMIN/GLOBULIN RATIO 0.54; CREATININE 1.85 mg/dl (0.61-1.24); TOTAL PROTEIN 5.1 g/dl (6.1-8.1)
[2016-11-13 08:56] LABS: CALCIUM 8.5 mg/dl (8.4-10.2)
[2016-11-13] MEDS: CEFEPIME 2GM/50 ML (PMX) 50 ML IVPB SCH (09:00)
[2016-11-13] MEDS ORDERED: FAMOTIDINE 20 MG INJ IV SCH (09:00)
[2016-11-13 09:07] LABS: TROPONIN-I 0.017 ng/ml (0.00-0.12)
[2016-11-13] MEDS: FAMOTIDINE 20 MG INJ IV SCH (10:37)
[2016-11-13] MEDS: ALBUTEROL 18 GM INHALER INH SCH ×3 (11:03→20:12)
--- NOTE | 2016-11-13 12:14 | CONS ---
Date/Time of Note Date/Time of Note DATE: 11/13/16 TIME: 12:11 Assessment/Plan Assessment/Plan Additional Assessment/Plan CT abdomen pelvis was reviewed which is showing ascites. No other acute abnormalities found. Ventilator settings; AC of 14, tidal volume 500, PEEP of 5, 40% FiO2. Patient is currently on Levophed at 11 mics per minute. Assessment recommendations; 1. Patient admitted for UTI and sepsis after having a very prolonged stay over here for discharge to long-term transfer back to ER. 2. Advanced multi-infarct dementia. 3. Recurrent sepsis. Continue current supportive care. Patient's prognosis is extremely poor. Consultation Date/Type/Reason Admit Date/Time Initial Consult Date Type of Consultation: Pulmonary/critical care Reason for Consultation Pulmonary consultations obtained for evaluation of chronic respiratory failure, patient admitted for sepsis. Patient is well-known to our service. Recently left [facility] from long-term after having a very prolonged stay over here for sepsis. Patient transferred back to ER for hypotension. Diagnosed with UTI and sepsis. General exam; elderly male, on ventilator via tracheostomy unresponsive. Currently in no distress. Exam/Review of Systems Vital Signs Vitals Vital Signs Date Time Temp Pulse Resp B/P Pulse Ox O2 Delivery O2 Flow Rate FiO2 11/13/16 11:04 88 14 99 35 11/13/16 11:00 131/75 Mechanical Ventilator 11/13/16 07:00 98.9 Intake and Output 11/12/16 11/12/16 11/13/16 15:00 23:00 07:00 Intake Total 3350 ml Balance 3350 ml Exam HEENT exam is; supple neck, tracheostomy placed with clean insertion site. No neck masses, no thyromegaly. No lymphadenopathy. Chest examination; diminished but clear vessel. S1-S2 audible, no murmurs. Abdomen examination; soft, G-tube in place. No organomegaly. Bowel sounds audible. Extremity exam is; no peripheral edema. Patient has contractures involving all 4 extremity's. [employer] examination; patient remains unresponsive. Results Result Diagram: 11/13/16 0828 11/13/16 0828 Results 24 hrs Laboratory Tests Test 11/12/16 23:06 11/13/16 00:10 11/13/16 02:18 11/13/16 05:40 Blood Gas Specimen Source Blood arterial Arterial Blood Date Drawn 11/12/2016 11:40:14 PM Arterial Blood pH (Temp corrected) 7.417 Arterial Blood pCO2 (Temp correct) 25.4 L Arterial Blood pO2 (Temp corrected) 73.3 L Arterial Blood HCO3 16.0 L Arterial Blood Base Excess -7.3 L Arterial Blood Oxygen Saturation 93.5 L Vinayak Test ACCEPTAB Arterial Blood Gas Puncture Site Right Radial Arterial Blood Carboxyhemoglobin 0.2 Arterial Blood Methemoglobin 0.5 Blood Gas A-a O2 Differential 146.7 H Oxyhemoglobin Percent 92.8 L Total Hemoglobin 9.9 L Blood Gas Temperature 37.0 Blood Gas Respiration Rate 12.0 Blood Gas Actual Respiration Rate 16 Blood Gas Modality VENT - AC FiO2 35.0 Blood Gas Tidal Volume 550.0 Blood Gas Low PEEP Setting 0 Blood Gas Notified Whom MA Blood Gas Notified Time 11/12/2016 11:52:48 PM White Blood Count 11.0 H Red Blood Count 3.15 L Hemoglobin 8.4 L Hematocrit 28.0 L Mean Corpuscular Volume 88.9 Mean Corpuscular Hemoglobin 26.7 L Mean Corpuscular Hemoglobin Concent 30.0 L Red Cell Distribution Width 19.3 H Platelet Count 219 # Mean Platelet Volume 10.8 H Neutrophils % 56.2 Lymphocytes % 31.1 Monocytes % 8.1 Eosinophils % 3.7 Basophils % 0.2 Nucleated Red Blood Cells % 0.0 Neutrophils # 6.1 Lymphocytes # 3.4 H Monocytes # 0.9 Eosinophils # 0.4 Basophils # 0.0 Nucleated Red Blood Cells # 0.0 Prothrombin Time 24.7 H Prothrombin Time Ratio 1.9 INR International Normalized Ratio 2.20 Activated Partial Thromboplast Time 49.2 H Urine Color DK. YELLOW Urine Clarity CLEAR Urine pH 5.5 Urine Specific [place] 1.020 Urine Ketones TRACE Urine Nitrite POSITIVE H Urine Bilirubin 1+ H Urine Ictotest NEGATIVE Urine Urobilinogen 0.2 E.U./dL Urine Leukocyte Esterase 3+ H Urine Microscopic RBC >50 Urine Microscopic WBC >200 Urine Squamous Epithelial Cells FEW Urine Bacteria MANY Urine Yeast MODERATE Urine Hemoglobin 2+ H Urine Glucose NEGATIVE Urine Total Protein 2+ H Sodium Level 135 Potassium Level 4.0 Chloride Level 107 Carbon Dioxide Level 17 L Anion Gap 15 Blood Urea Nitrogen 27 H Creatinine 1.74 H Glucose Level 68 #L Lactic Acid Level 6.2 *H 6.0 *H 5.9 *H Calcium Level 8.7 Total Bilirubin Direct Bilirubin Indirect Bilirubin Aspartate Amino Transf (AST/SGOT) 28 Alanine Aminotransferase (ALT/SGPT) 15 Alkaline Phosphatase 316 H Troponin I 0.017 Total Protein 4.7 L Albumin 1.7 L Globulin 3.00 Albumin/Globulin Ratio 0.56 Test 11/13/16 08:28 White Blood Count 11.9 H Red Blood Count 3.53 L Hemoglobin 9.3 L Hematocrit 31.1 L Mean Corpuscular Volume 88.1 Mean Corpuscular Hemoglobin 26.3 L Mean Corpuscular Hemoglobin Concent 29.9 L Red Cell Distribution Width 19.3 H Platelet Count 243 Mean Platelet Volume 10.9 H Neutrophils % 57.1 Lymphocytes % 29.4 Monocytes % 7.7 Eosinophils % 4.8 Basophils % 0.3 Nucleated Red Blood Cells % 0.0 Neutrophils # 6.8 Lymphocytes # 3.5 H Monocytes # 0.9 Eosinophils # 0.6 H Basophils # 0.0 Nucleated Red Blood Cells # 0.0 Prothrombin Time 23.2 H Prothrombin Time Ratio 1.8 INR International Normalized Ratio 2.04 Activated Partial Thromboplast Time 51.6 H Sodium Level 138 Potassium Level 3.5 Chloride Level 107 Carbon Dioxide Level 17 L Anion Gap 18 H Blood Urea Nitrogen 27 H Creatinine 1.85 H Glucose Level 94 Calcium Level 8.5 Total Bilirubin Direct Bilirubin Indirect Bilirubin Aspartate Amino Transf (AST/SGOT) 28 Alanine Aminotransferase (ALT/SGPT) 20 Alkaline Phosphatase 307 H Lactate Dehydrogenase 261 L Troponin I 0.017 Total Protein 5.1 L Albumin 1.8 L Globulin 3.30 H Albumin/Globulin Ratio 0.54 Medications Medications Current Medications Norepinephrine 250 ml @ 1.875 mls/ hr TITRATE IV ; Start 11/13/16 at 00:00 Norepinephrine 16 mg/Dextrose 500 ml @ 1.87 mls/hr TITRATE IV Last administered on 11/13/16 01:31; Admin Dose 1.87 MLS/HR; Start 11/13/16 at 01:00 Dobutamine HCl/ Dextrose 250 ml @ 12.75 mls/ hr TITRATE IV ; Start 11/13/16 at 06:00 Cefepime HCl (Maxipime 2gm/50 ml (Pmx)) 50 ml @ 100 mls/hr Q12 IVPB Last administered on 11/13/16 09:00; Admin Dose 100 MLS/HR; Start 11/13/16 at 09:00 Nitroglycerin (Nitroglycerin (Sl Tab) 0.4 Mg) 1 tab Q5M PRN SL CHEST PAIN; Start 11/13/16 at 06:00 Famotidine (Pepcid Iv) 20 mg DAILY IV Last administered on 11/13/16t 10:37; Admin Dose 20 MG; Start 11/13/16 at 09:00 JORGE ROBLES Nov 13, 2016 12:14
[2016-11-13 14:21] LABS: AADO2 Arterial 133.6 mmHg (7.0-24.0); Allen Test ACCEPTAB; Arterial Base Excess -8.9 mmol/L (-3.0-3); Arterial COHb 0.2 % (0.0-3.0); Arterial Fraction of Oxyhgb 95.2 % (93.0-99.0); Arterial HCO3 14.8 mmol/L (22.0-26.0); Arterial MetHb 0.3 % (0.0-1.5); Arterial Total Hemglobin 9.9 g/dl (12.0-18.0); Blood Gas Low PEEP Setting 0 cmH2O; MODE VENT - AC
[2016-11-14] VITALS (106 sets, daily range): BP systolic 78–124; BP diastolic 45–75; PULSE 83–104; RESP 13–33
[2016-11-14] MEDS: CEFEPIME 2GM/50 ML (PMX) 50 ML IVPB SCH ×3 (00:29→20:05)
[2016-11-14] MEDS: ALBUTEROL 18 GM INHALER INH SCH ×4 (01:33→20:29)
[2016-11-14] MEDS ORDERED: PENDING SANTYL ORDER FOR WOUND CARE XX PRN (03:30)
[2016-11-14 04:49] LABS: ADD SCAN DIFF NO
[2016-11-14 05:00] LABS: BASOPHILS % 0.3 % (0.0-2.0); EOSINOPHILS # 0.8 10^3/ul (0.0-0.5); EOSINOPHILS % 6.6 % (0.0-7.0); HEMATOCRIT 29.4 % (42.0-52.0); HEMOGLOBIN 8.8 g/dl (14.0-18.0); LYMPHOCYTES # 2.9 10^3/ul (0.8-2.9); LYMPHOCYTES % 24.5 % (15.0-51.0); MEAN CORPUSCULAR HEMOGLOBIN 26.3 pg (29.0-33.0); MEAN CORPUSCULAR HGB CONC 29.9 g/dl (32.0-37.0); MEAN CORPUSCULAR VOLUME 87.8 fl (82.0-101.0); MEAN PLATELET VOLUME 10.7 fl (7.4-10.4); MONOCYTE # 0.9 10^3/ul (0.3-0.9); MONOCYTES % 7.6 % (0.0-11.0); NEUTROPHIL # 7.1 10^3/ul (1.6-7.5); NEUTROPHILS % 60.1 % (39.0-77.0); PLATELET COUNT 219 10^3/UL (140-415); RED BLOOD COUNT 3.35 10^6/ul (4.70-6.10); RED CELL DISTRIBUTION WIDTH 19.4 % (11.5-14.5); WHITE BLOOD COUNT 11.8 10^3/ul (4.8-10.8)
[2016-11-14 05:06] LABS: ALBUMIN 1.7 g/dl (3.3-4.9)
[2016-11-14 05:07] LABS: POTASSIUM 3.4 mmol/L (3.5-5.1)
[2016-11-14 05:09] LABS: ALBUMIN/GLOBULIN RATIO 0.51; CREATININE 1.81 mg/dl (0.61-1.24)
[2016-11-14 05:10] LABS: CALCIUM 8.7 mg/dl (8.4-10.2)
[2016-11-14] MEDS: FAMOTIDINE 20 MG INJ IV SCH (08:58)
[2016-11-14] MEDS ORDERED: GLUCAGON 1 MG INJ IM PRN (10:00)
[2016-11-14] MEDS ORDERED: DEXTROSE 50% 50 ML SYRINGE IV PRN (10:00)
[2016-11-14] MEDS ORDERED: DEXTROSE 50% 50 ML SYRINGE IV ONE (10:00)
[2016-11-14] MEDS ORDERED: GLUCOSE GEL 15 GRAM TUBE PO PRN ×2 (10:00)
[2016-11-14] MEDS ORDERED: GLUCOSE GEL 15 GRAM TUBE BUCCAL PRN (10:00)
[2016-11-14] MEDS: INSULIN ASPART [NOVOLOG] 3 ML PEN SC SCH ×2 (12:00→18:00)
--- NOTE | 2016-11-14 12:37 | CONS ---
Date/Time of Note Date/Time of Note DATE: 11/14/16 TIME: 12:33 Consult Date/Type/Reason Admit Date/Time Nov 13, 2016 at 04:34 Type of Consultation: Pulmonary/critical care Subjective Patient continues mechanical ventilation transfer to intensive care unit for hypotension Objective Vital Signs Date Time Temp Pulse Resp B/P Pulse Ox O2 Delivery O2 Flow Rate FiO2 11/14/16 09:05 88 17 96 35 11/14/16 07:00 99/56 Mechanical Ventilator 11/14/16 04:00 97.0 Intake and Output 11/13/16 11/13/16 11/14/16 14:59 22:59 06:59 Intake Total 134.44 ml 154.96 ml Output Total 100 ml 155 ml Balance 34.44 ml -0.04 ml Exam PHYSICAL EXAMINATION GENERAL: Elderly gentleman, on mechanical ventilation VITAL SIGNS: see below. HEENT: Pupils equal, round, and reactive to light. Tracheostomy site clean and intact. CARDIAC: S1, S2, no added sounds or murmurs CHEST: Diminished air entry bilaterally. ABDOMEN: Mildly distended. Bowel sounds present. EXTREMITIES: No cyanosis, clubbing or edema. NEUROLOGIC: Unable to assess Results/Medications Result Diagram: 11/14/16 0400 11/14/16 0400 Results 24 hrs Laboratory Tests Test 11/13/16 13:33 11/14/16 04:00 11/14/16 08:11 11/14/16 10:21 Blood Gas Specimen Source Blood arterial Arterial Blood Date Drawn 11/13/2016 2:10:20 PM Arterial Blood pH (Temp corrected) 7.387 Arterial Blood pCO2 (Temp correct) 25.1 L Arterial Blood pO2 (Temp corrected) 86.8 Arterial Blood HCO3 14.8 L Arterial Blood Base Excess -8.9 L Arterial Blood Oxygen Saturation 95.7 Vinayak Test ACCEPTAB Arterial Blood Gas Puncture Site Right Radial Arterial Blood Carboxyhemoglobin 0.2 Arterial Blood Methemoglobin 0.3 Blood Gas A-a O2 Differential 133.6 H Oxyhemoglobin Percent 95.2 Total Hemoglobin 9.9 L Blood Gas Temperature 37.0 Blood Gas Respiration Rate 12.0 Blood Gas Actual Respiration Rate 16 Blood Gas Modality VENT - AC FiO2 35.0 Blood Gas Tidal Volume 550.0 Blood Gas Low PEEP Setting 0 Blood Gas Notified Whom DEDED Blood Gas Notified Time 11/13/2016 2:21:00 PM White Blood Count 11.8 H Red Blood Count 3.35 L Hemoglobin 8.8 L Hematocrit 29.4 L Mean Corpuscular Volume 87.8 Mean Corpuscular Hemoglobin 26.3 L Mean Corpuscular Hemoglobin Concent 29.9 L Red Cell Distribution Width 19.4 H Platelet Count 219 Mean Platelet Volume 10.7 H Neutrophils % 60.1 Lymphocytes % 24.5 Monocytes % 7.6 Eosinophils % 6.6 Basophils % 0.3 Nucleated Red Blood Cells % 0.0 Neutrophils # 7.1 Lymphocytes # 2.9 Monocytes # 0.9 Eosinophils # 0.8 H Basophils # 0.0 Nucleated Red Blood Cells # 0.0 Sodium Level 139 Potassium Level 3.4 L Chloride Level 109 Carbon Dioxide Level 15 L Anion Gap 18 H Blood Urea Nitrogen 30 H Creatinine 1.81 H Glucose Level 51 #L Calcium Level 8.7 Total Bilirubin Direct Bilirubin Indirect Bilirubin Aspartate Amino Transf (AST/SGOT) 28 Alanine Aminotransferase (ALT/SGPT) 19 Alkaline Phosphatase 275 H Total Protein 5.0 L Albumin 1.7 L Globulin 3.30 H Albumin/Globulin Ratio 0.51 Lab Scanned Report REFERENCE LAB Bedside Glucose 93 Medications Current Medications Norepinephrine 250 ml @ 1.875 mls/ hr TITRATE IV ; Start 11/13/16 at 00:00 Norepinephrine 16 mg/Dextrose 500 ml @ 1.87 mls/hr TITRATE IV Last administered on 11/13/16 01:31; Admin Dose 1.87 MLS/HR; Start 11/13/16 at 01:00 Dobutamine HCl/ Dextrose 250 ml @ 12.75 mls/ hr TITRATE IV ; Start 11/13/16 at 06:00 Cefepime HCl (Maxipime 2gm/50 ml (Pmx)) 50 ml @ 100 mls/hr Q12 IVPB Last administered on 11/14/16 08:58; Admin Dose 100 MLS/HR; Start 11/13/16 at 09:00 Nitroglycerin (Nitroglycerin (Sl Tab) 0.4 Mg) 1 tab Q5M PRN SL CHEST PAIN; Start 11/13/16 at 06:00 Famotidine (Pepcid Iv) 20 mg DAILY IV Last administered on 11/14/16 08:58; Admin Dose 20 MG; Start 11/13/16 at 09:00 Miscellaneous Information (Pending Santyl Order For Wound Care) This patient lopez... PRN PRN XX WOUND CARE; Start 11/14/16 at 03:30 Insulin Aspart (Novolog Insulin Pen) NOVOLOG *MILD* ALGORITHM Q6 SC ; Start at 12:00 Diagnostic Test (Pha) (Accu-Chek) 1 ea 02 XX ; Start 11/15/16 at 02:00 Miscellaneous Information 1 ea NOTE XX ; Start 11/14/16 at 10:00 Glucose (Glutose) 15 gm Q15M PRN PO DECREASED GLUCOSE; Start 11/14/16 at 10:00 Glucose (Glutose) 22.5 gm Q15M PRN PO DECREASED GLUCOSE; Start 11/14/16 at 10: 00 Dextrose (D50w Syringe) 25 ml Q15M PRN IV DECREASED GLUCOSE; Start 11/14/16 at 10:00 Dextrose (D50w Syringe) 50 ml Q15M PRN IV DECREASED GLUCOSE; Start 11/14/16 at 10:00 Glucagon (Glucagen) 1 mg Q15M PRN IM DECREASED GLUCOSE; Start 11/14/16 at 10:00 Glucose (Glutose) 15 gm Q15M PRN BUCCAL DECREASED GLUCOSE; Start 11/14/16 at 10 :00 Assessment/Plan Chief Complaint/Hosp Course Assessment 1. Septic shock polymicrobial 2. Vent dependent respiratory failure 3. History of CVA with encephalopathy 4. Renal insufficiency 5. Metabolic acidosis likely secondary to renal insufficiency 6. Dysphagia with G-tube Critical care time 35 minutes Problems: MUNIR DESHPANDE MD, [facility] Nov 14, 2016 12:37
[2016-11-14] MEDS: DEXTROSE 50% 50 ML SYRINGE IV PRN (13:05)
--- NOTE | 2016-11-14 13:45 | CONS ---
Date/Time of Note Date/Time of Note DATE: 11/14/16 TIME: 13:43 Assessment/Plan Assessment/Plan Additional Assessment/Plan Sepsis Acute blood loss anemia Elevated troponin likely secondary to above Respiratory failure Paroxysmal atrial fibrillation, currently sinus rhythm Paroxysmal atrial tachycardia Preserved ejection fraction Acute kidney injury -Patient with worsening hypotension concerning for worsening sepsis. IV pressor to maintain SBP greater than 90 and her map above 60, antibiotics as per infectious disease. Withhold any antihypertensives at the current time. Continue maintenance amiodarone if no contraindication to help maintain in sinus rhythm. Consultation Date/Type/Reason Admit Date/Time Nov 13, 2016 at 04:34 Initial Consult Date Type of Consultation: cv 24 HR Interval Summary Free Text/Dictation Patient transferred to [facility] and then to the emergency room secondary to hypotension, currently in ICU Exam/Review of Systems Vital Signs Vitals Vital Signs Date Time Temp Pulse Resp B/P Pulse Ox O2 Delivery O2 Flow Rate FiO2 11/14/16 12:00 103 11/14/16 09:05 17 96 35 11/14/16 07:00 99/56 Mechanical Ventilator 11/14/16 04:00 97.0 Intake and Output 11/13/16 11/13/16 11/14/16 15:00 23:00 07:00 Intake Total 147.56 ml 154.96 ml Output Total 120 ml 135 ml Balance 27.56 ml 19.96 ml Exam No apparent distress Head: normocephalic Neck: other (Tracheostomy) Respiratory: other (Gross breath sounds bilaterally, no wheezing, decreased at the bases) Cardiovascular: other (S1-S2 heard), regular rate and rhythm Gastrointestinal: bowel sounds, distended, non-tender, soft Extremities: edema Results Result Diagram: 11/14/16 0400 11/14/16 0400 Results 24 hrs Laboratory Tests Test 11/14/16 04:00 11/14/16 08:11 11/14/16 10:21 11/14/16 13:00 White Blood Count 11.8 H Red Blood Count 3.35 L Hemoglobin 8.8 L Hematocrit 29.4 L Mean Corpuscular Volume 87.8 Mean Corpuscular Hemoglobin 26.3 L Mean Corpuscular Hemoglobin Concent 29.9 L Red Cell Distribution Width 19.4 H Platelet Count 219 Mean Platelet Volume 10.7 H Neutrophils % 60.1 Lymphocytes % 24.5 Monocytes % 7.6 Eosinophils % 6.6 Basophils % 0.3 Nucleated Red Blood Cells % 0.0 Neutrophils # 7.1 Lymphocytes # 2.9 Monocytes # 0.9 Eosinophils # 0.8 H Basophils # 0.0 Nucleated Red Blood Cells # 0.0 Sodium Level 139 Potassium Level 3.4 L Chloride Level 109 Carbon Dioxide Level 15 L Anion Gap 18 H Blood Urea Nitrogen 30 H Creatinine 1.81 H Glucose Level 51 #L Calcium Level 8.7 Total Bilirubin Direct Bilirubin Indirect Bilirubin Aspartate Amino Transf (AST/SGOT) 28 Alanine Aminotransferase (ALT/SGPT) 19 Alkaline Phosphatase 275 H Total Protein 5.0 L Albumin 1.7 L Globulin 3.30 H Albumin/Globulin Ratio 0.51 Lab Scanned Report REFERENCE LAB Bedside Glucose 93 63 L Medications Medications Current Medications Norepinephrine 250 ml @ 1.875 mls/ hr TITRATE IV ; Start 11/13/16 at 00:00 Norepinephrine 16 mg/Dextrose 500 ml @ 1.87 mls/hr TITRATE IV Last administered on 11/13/16 01:31; Admin Dose 1.87 MLS/HR; Start 11/13/16 at 01:00 Dobutamine HCl/ Dextrose 250 ml @ 12.75 mls/ hr TITRATE IV ; Start 11/13/16 at 06:00 Cefepime HCl (Maxipime 2gm/50 ml (Pmx)) 50 ml @ 100 mls/hr Q12 IVPB Last administered on 11/14/16 08:58; Admin Dose 100 MLS/HR; Start 11/13/16 at 09:00 Nitroglycerin (Nitroglycerin (Sl Tab) 0.4 Mg) 1 tab Q5M PRN SL CHEST PAIN; Start 11/13/16 at 06:00 Famotidine (Pepcid Iv) 20 mg DAILY IV Last administered on 11/14/16 08:58; Admin Dose 20 MG; Start 11/13/16 at 09:00 Miscellaneous Information (Pending [facility] Order For Wound Care) This patient lopez... PRN PRN XX WOUND CARE; Start 11/14/16 at 03:30 Insulin Aspart (Novolog Insulin Pen) NOVOLOG *MILD* ALGORITHM Q6 SC ; Start at 12:00 Diagnostic Test (Pha) (Accu-Chek) 1 ea 02 XX ; Start 4/26/17 at 02:00 Miscellaneous Information 1 ea NOTE XX ; Start 11/14/16 at 10:00 Glucose (Glutose) 15 gm Q15M PRN PO DECREASED GLUCOSE; Start 11/14/16 at 10:00 Glucose (Glutose) 22.5 gm Q15M PRN PO DECREASED GLUCOSE; Start 11/14/16 at 10: 00 Dextrose (D50w Syringe) 25 ml Q15M PRN IV DECREASED GLUCOSE Last administered on 11/14/16t 13:05; Admin Dose 25 ML; Start 11/14/16 at 10:00 Dextrose (D50w Syringe) 50 ml Q15M PRN IV DECREASED GLUCOSE; Start 11/14/16 at 10:00 Glucagon (Glucagen) 1 mg Q15M PRN IM DECREASED GLUCOSE; Start 11/14/16 at 10:00 Glucose (Glutose) 15 gm Q15M PRN BUCCAL DECREASED GLUCOSE; Start 11/14/16 at 10 :00 Ervin Ceja DO Nov 14, 2016 13:45
--- NOTE | 2016-11-14 17:13 | CONS ---
Date/Time of Note Date/Time of Note DATE: 11/14/16 TIME: 16:45 Assessment/Plan Assessment/Plan Chief Complaint/Hosp Course ID PROGRESS NOTE NEW EVENTS: Patient was DC'd to [facility] on 11/12/16 in stable condition OFF ABX 48Hs. He became septic requiring pressors in early am 11/13/16 and was sent from [facility] to the ED, now re-admitted <24H back to [facility]. He is seen today by ID team as a follow up Dr. Chen's initial consult note dictation from 10/25/2016. CURRENT ABX=> Cefepime (11/13) * s/p ABX 11 days Zyvox, Colistin, Flagyl-> DC'd 11/10 * s/p Vanco IV + Merrem prior 24H INTERVAL SUMMARY * Chronic encephalopathy, stable on pressors in ICU, no fevers, VDRF, (+) Anasarca * 11/13 CXR 1. Mild failure with new left pleural effusion. 2. Differential considerations include left lung base pneumonia in setting of sepsis. * 11/13 CT ABD Moderate bilateral pleural effusions with extensive associated atelectasis. Concurrent pneumonia would not be excluded. Large intra-abdominal ascites and anasarca. * BCx 11/13/16 (-) Urine 11/13/16 (+) YEAST URINE CULTURE Final Organism 1 YEAST,NOT GRANT ALBICANS COLONY COUNT >100,000 CFU/ml PHYSICAL EXAMINATION: GENERAL: VSS, NAD, Afebrile HEENT: Unremarkable NECK: Supple, trach-> Vent secure CHEST: Rise symmetrical, without dyspnea on observation HEART: Pulse RRR ABDOMEN: Soft, peg EXTREMITIES: Warm, trace edema SKIN: See wound photos ID ASSESSMENT 76 yo M admit with: 1. Recurrent sepsis w/shock, Tmax 99.2, WBC 11.8 on Levophed admitted back to [facility] <24H after DC to [facility] = * s/p recent polymicrobial bacteremia due to multifactorial infx conditions below => RESOLVED 2. Recurrent yeast UTI 11/13/16, FC was changed 11/11/16 due to presence of yeast on prior cx 11/10/16 * s/p recent GNR UTI -/ received full course ABX Rx for recurrent urinary tract infection => s/p Colistin 11 days w/Primaxin Rx prior to Colistin 3. Chronic respiratory failure-> trach/Vent 4. Dysphagia -> s/p PEG 5. 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 CHF w/anasarca, ascites = fluid overloaded * 11/13 CXR 1. Mild failure with new left pleural effusion. 2. Differential considerations include left lung base pneumonia in setting of sepsis. * 11/13 CT ABD Moderate bilateral pleural effusions with extensive associated atelectasis. Concurrent pneumonia would not be excluded. Large intra-abdominal ascites and anasarca. 7. Atrial fibrillation. 8. Diabetes, blood sugars controlled. 9. Unstageable sacral decubitus => s/p debridement 11/01/16 * s/p lengthy ABX course for MRSA/ACBA=>ACBA may be colonized 10. S/P Acute anemia=> GI work-up completed with no obvious bleeding source * s/p EGD 10/27/16 * s/p Colonoscopy 10/31/16 (+)MRSA Nares ->on Bactroban, s/p Vanco IV INVASIVES: Trach, PEG, FC (changed 11/11), PICC (10/25/2016) ABX ALLERGY: KNDA CURRENT ABX: CURRENT ABX=> Cefepime #2 + Candidas #1 + Flagyl#1 s/p ABX 11 days Zyvox, Colistin, Flagyl-> DC'd 11/10 s/p Vanco IV + Merrem prior ID RECOMMENDATIONS 1. Continue Cefepime + add Flagyl anaerobic coverage for PNA, decubs, GI 2. Start Cancidas for yeast UTI = NOT C.Albicans * FC was already changed on 11/11/16 due to presence of yeast == start Cancidas will change FC again once med onboard * It is still dubious whether the source of sepsis is the Funguria vs PNA vs Decubs == will attempt to treat the yeast UTI 3. Continue topical wound treatment . Problems: Consultation Date/Type/Reason Admit Date/Time Nov 13, 2016 at 04:34 Initial Consult Date Type of Consultation: ID Exam/Review of Systems Vital Signs Vitals Vital Signs Date Time Temp Pulse Resp B/P Pulse Ox O2 Delivery O2 Flow Rate FiO2 11/14/16 13:10 91 16 98 35 11/14/16 07:00 99/56 Mechanical Ventilator 11/14/16 04:00 97.0 Intake and Output 11/13/16 11/13/16 11/14/16 15:00 23:00 07:00 Intake Total 147.56 ml 154.96 ml Output Total 120 ml 135 ml Balance 27.56 ml 19.96 ml Results Result Diagram: 11/14/16 0400 11/14/16 0400 Results 24 hrs Laboratory Tests Test 11/14/16 04:00 11/14/16 08:11 11/14/16 10:21 11/14/16 13:00 White Blood Count 11.8 H Red Blood Count 3.35 L Hemoglobin 8.8 L Hematocrit 29.4 L Mean Corpuscular Volume 87.8 Mean Corpuscular Hemoglobin 26.3 L Mean Corpuscular Hemoglobin Concent 29.9 L Red Cell Distribution Width 19.4 H Platelet Count 219 Mean Platelet Volume 10.7 H Neutrophils % 60.1 Lymphocytes % 24.5 Monocytes % 7.6 Eosinophils % 6.6 Basophils % 0.3 Nucleated Red Blood Cells % 0.0 Neutrophils # 7.1 Lymphocytes # 2.9 Monocytes # 0.9 Eosinophils # 0.8 H Basophils # 0.0 Nucleated Red Blood Cells # 0.0 Sodium Level 139 Potassium Level 3.4 L Chloride Level 109 Carbon Dioxide Level 15 L Anion Gap 18 H Blood Urea Nitrogen 30 H Creatinine 1.81 H Glucose Level 51 #L Calcium Level 8.7 Total Bilirubin Direct Bilirubin Indirect Bilirubin Aspartate Amino Transf (AST/SGOT) 28 Alanine Aminotransferase (ALT/SGPT) 19 Alkaline Phosphatase 275 H Total Protein 5.0 L Albumin 1.7 L Globulin 3.30 H Albumin/Globulin Ratio 0.51 Lab Scanned Report REFERENCE LAB Bedside Glucose 93 63 L Test 11/14/16 15:16 Bedside Glucose 82 Medications Medications Current Medications Norepinephrine 250 ml @ 1.875 mls/ hr TITRATE IV ; Start 11/13/16 at 00:00 Norepinephrine 16 mg/Dextrose 500 ml @ 1.87 mls/hr TITRATE IV Last administered on 11/13/16t 01:31; Admin Dose 1.87 MLS/HR; Start 11/13/16 at 01:00 Dobutamine HCl/ Dextrose 250 ml @ 12.75 mls/ hr TITRATE IV ; Start 11/13/16 at 06:00 Cefepime HCl (Maxipime 2gm/50 ml (Pmx)) 50 ml @ 100 mls/hr Q12 IVPB Last administered on 11/14/16 08:58; Admin Dose 100 MLS/HR; Start 11/13/16 at 09:00 Nitroglycerin (Nitroglycerin (Sl Tab) 0.4 Mg) 1 tab Q5M PRN SL CHEST PAIN; Start 11/13/16 at 06:00 Famotidine (Pepcid Iv) 20 mg DAILY IV Last administered on 11/14/16 08:58; Admin Dose 20 MG; Start 11/13/16 at 09:00 Miscellaneous Information (Pending Santyl Order For Wound Care) This patient lopez... PRN PRN XX WOUND CARE; Start 11/14/16 at 03:30 Insulin Aspart (Novolog Insulin Pen) NOVOLOG *MILD* ALGORITHM Q6 SC ; Start at 12:00 Diagnostic Test (Pha) (Accu-Chek) 1 ea 02 XX ; Start 11/15/16 at 02:00 Miscellaneous Information 1 ea NOTE XX ; Start 11/14/16 at 10:00 Glucose (Glutose) 15 gm Q15M PRN PO DECREASED GLUCOSE; Start 11/14/16 at 10:00 Glucose (Glutose) 22.5 gm Q15M PRN PO DECREASED GLUCOSE; Start 11/14/16 at 10: 00 Dextrose (D50w Syringe) 25 ml Q15M PRN IV DECREASED GLUCOSE Last administered on 11/14/16 13:05; Admin Dose 25 ML; Start 11/14/16 at 10:00 Dextrose (D50w Syringe) 50 ml Q15M PRN IV DECREASED GLUCOSE; Start 11/14/16 at 10:00 Glucagon (Glucagen) 1 mg Q15M PRN IM DECREASED GLUCOSE; Start 11/14/16 at 10:00 Glucose (Glutose) 15 gm Q15M PRN BUCCAL DECREASED GLUCOSE; Start 11/14/16 at 10 :00 Amiodarone HCl (Cordarone) 200 mg DAILY NGT ; Start 11/15/16 at 09:00 ANTON PORTILLO NP Nov 14, 2016 16:55
--- NOTE | 2016-11-14 17:47 | PN ---
Date/Time of Note Date/Time of Note DATE: 11/14/16 TIME: 17:41 Assessment/Plan VTE Prophylaxis VTE Prophylaxis Intervention: SCD's Assessment/Plan Chief Complaint/Hosp Course 1. Septic shock 2/2 urinary tract infection -cont Abx and Pressors now, ID consult appreciated 2. Hx of CVA with Debility with Chronic Ventilator-dependent respiratory failure -Continue vent management by manager retail 3. Non-ST myocardial infarction with elevated troponin, likely demand ischemia secondary to anemia. 4. Diabetic mellitus . Place the patient on Lantus, continue insulin sliding scale. 5. THEO due to ATN from sepsis and prerenal azotemia - stable cr 7. Sacral decubitus, continue wound care, status post surgical debridement on 11/01/2016, continue postop care DVT prophylaxis; SCD, no Heparin/Lovenox due to GI bleeding Problems: Subjective 24 Hr Interval Summary Subjective hx not possible: pt non-verbal Exam/Review of Systems Vital Signs Vitals Vital Signs Date Time Temp Pulse Resp B/P Pulse Ox O2 Delivery O2 Flow Rate FiO2 11/14/16 17:20 89 16 97 35 11/14/16 16:30 97/64 11/14/16 16:00 99.5 Mechanical Ventilator Intake and Output 11/13/16 11/13/16 11/14/16 15:00 23:00 07:00 Intake Total 147.56 ml 154.96 ml Output Total 120 ml 135 ml Balance 27.56 ml 19.96 ml Exam Constitutional: non-verbal Respiratory: clear to auscultation Cardiovascular: regular rate and rhythm Gastrointestinal: soft, No distended Musculoskeletal: nl extremities to inspection Results Result Diagram: 11/14/16 0400 11/14/16 0400 Results 24 hrs Laboratory Tests Test 11/14/16 04:00 11/14/16 08:11 11/14/16 10:21 11/14/16 13:00 White Blood Count 11.8 H Red Blood Count 3.35 L Hemoglobin 8.8 L Hematocrit 29.4 L Mean Corpuscular Volume 87.8 Mean Corpuscular Hemoglobin 26.3 L Mean Corpuscular Hemoglobin Concent 29.9 L Red Cell Distribution Width 19.4 H Platelet Count 219 Mean Platelet Volume 10.7 H Neutrophils % 60.1 Lymphocytes % 24.5 Monocytes % 7.6 Eosinophils % 6.6 Basophils % 0.3 Nucleated Red Blood Cells % 0.0 Neutrophils # 7.1 Lymphocytes # 2.9 Monocytes # 0.9 Eosinophils # 0.8 H Basophils # 0.0 Nucleated Red Blood Cells # 0.0 Sodium Level 139 Potassium Level 3.4 L Chloride Level 109 Carbon Dioxide Level 15 L Anion Gap 18 H Blood Urea Nitrogen 30 H Creatinine 1.81 H Glucose Level 51 #L Calcium Level 8.7 Total Bilirubin Direct Bilirubin Indirect Bilirubin Aspartate Amino Transf (AST/SGOT) 28 Alanine Aminotransferase (ALT/SGPT) 19 Alkaline Phosphatase 275 H Total Protein 5.0 L Albumin 1.7 L Globulin 3.30 H Albumin/Globulin Ratio 0.51 Lab Scanned Report REFERENCE LAB Bedside Glucose 93 63 L Test 11/14/16 15:16 Bedside Glucose 82 Medications Medications Current Medications Norepinephrine 16 mg/Dextrose 500 ml @ 1.87 mls/hr TITRATE IV Last administered on 11/13/16 01:31; Admin Dose 1.87 MLS/HR; Start 11/13/16 at 01:00 Dobutamine HCl/ Dextrose 250 ml @ 12.75 mls/ hr TITRATE IV ; Start 11/13/16 at 06:00 Cefepime HCl (Maxipime 2gm/50 ml (Pmx)) 50 ml @ 100 mls/hr Q12 IVPB Last administered on 11/14/16 08:58; Admin Dose 100 MLS/HR; Start 11/13/16 at 09:00 Nitroglycerin (Nitroglycerin (Sl Tab) 0.4 Mg) 1 tab Q5M PRN SL CHEST PAIN; Start 11/13/16 at 06:00 Famotidine (Pepcid Iv) 20 mg DAILY IV Last administered on 11/14/16 08:58; Admin Dose 20 MG; Start 11/13/16 at 09:00 Miscellaneous Information (Pending Santyl Order For Wound Care) This patient lopez... PRN PRN XX WOUND CARE; Start 11/14/16 at 03:30 Insulin Aspart (Novolog Insulin Pen) NOVOLOG *MILD* ALGORITHM Q6 SC ; Start at 12:00 Diagnostic Test (Pha) (Accu-Chek) 1 ea 02 XX ; Start 11/15/16 at 02:00 Miscellaneous Information 1 ea NOTE XX ; Start 11/14/16 at 10:00 Glucose (Glutose) 15 gm Q15M PRN PO DECREASED GLUCOSE; Start 11/14/16 at 10:00 Glucose (Glutose) 22.5 gm Q15M PRN PO DECREASED GLUCOSE; Start 11/14/16 at 10: 00 Dextrose (D50w Syringe) 25 ml Q15M PRN IV DECREASED GLUCOSE Last administered on 11/14/16t 13:05; Admin Dose 25 ML; Start 11/14/16 at 10:00 Dextrose (D50w Syringe) 50 ml Q15M PRN IV DECREASED GLUCOSE; Start 11/14/16 at 10:00 Glucagon (Glucagen) 1 mg Q15M PRN IM DECREASED GLUCOSE; Start 11/14/16 at 10:00 Glucose (Glutose) 15 gm Q15M PRN BUCCAL DECREASED GLUCOSE; Start 11/14/16 at 10 :00 Amiodarone HCl 200 mg 200 mg DAILY NGT ; Start 11/15/16 at 09:00 Metronidazole 100 ml @ 100 mls/hr Q8 IVPB ; Start 11/14/16 at 22:00 Caspofungin 70 mg/ Sodium Chloride 250 ml @ 250 mls/hr ONCE ONCE IVPB ; Start 11/14/16 at 18:30; Stop 11/14/16 at 19:29 Caspofungin/ Sodium Chloride (Cancidas/NS) 250 ml @ 250 mls/hr Q24H IVPB ; Start 11/15/16 at 18:30 ISIS BATISTA Nov 14, 2016 17:47
[2016-11-14] MEDS ORDERED: CASPOFUNGIN 70 MG in SOD CHLORIDE 0.9% 250 ML IVPB ONE (18:30)
[2016-11-14] MEDS: metroNIDAZOLE 500 MG/NS (PMX) 100 ML IVPB SCH (22:31)
[2016-11-15] VITALS (101 sets, daily range): BP systolic 69–110; BP diastolic 39–80; PULSE 79–98; RESP 12–30
[2016-11-15] MEDS: ALBUTEROL 18 GM INHALER INH SCH ×4 (01:41→20:23)
[2016-11-15] MEDS: ACCU-CHEK XX SCH (02:00)
[2016-11-15 05:25] LABS: ADD SCAN DIFF NO
[2016-11-15 05:28] LABS: BASOPHILS % 0.3 % (0.0-2.0); EOSINOPHILS # 0.9 10^3/ul (0.0-0.5); EOSINOPHILS % 7.2 % (0.0-7.0); HEMATOCRIT 28.1 % (42.0-52.0); HEMOGLOBIN 8.4 g/dl (14.0-18.0); LYMPHOCYTES # 2.2 10^3/ul (0.8-2.9); LYMPHOCYTES % 18.1 % (15.0-51.0); MEAN CORPUSCULAR HEMOGLOBIN 26.4 pg (29.0-33.0); MEAN CORPUSCULAR HGB CONC 29.9 g/dl (32.0-37.0); MEAN CORPUSCULAR VOLUME 88.4 fl (82.0-101.0); MONOCYTE # 0.9 10^3/ul (0.3-0.9); MONOCYTES % 6.9 % (0.0-11.0); NEUTROPHIL # 8.2 10^3/ul (1.6-7.5); NEUTROPHILS % 66.8 % (39.0-77.0); NUCLEATED RED BLOOD CELLS # 0.1 10^3/ul (0.0-0.0); NUCLEATED RED BLOOD CELLS% 0.4 /100WBC (0.0-0.0); PLATELET COUNT 169 10^3/UL (140-415); RED BLOOD COUNT 3.18 10^6/ul (4.70-6.10); RED CELL DISTRIBUTION WIDTH 19.6 % (11.5-14.5); WHITE BLOOD COUNT 12.3 10^3/ul (4.8-10.8)
[2016-11-15 05:52] LABS: POTASSIUM 3.7 mmol/L (3.5-5.1)
[2016-11-15 05:54] LABS: CREATININE 1.73 mg/dl (0.61-1.24)
[2016-11-15 05:55] LABS: CALCIUM 8.6 mg/dl (8.4-10.2); PHOSPHORUS 6.2 mg/dl (2.5-4.9)
[2016-11-15] MEDS: INSULIN ASPART [NOVOLOG] 3 ML PEN SC SCH ×5 (06:00→23:53)
[2016-11-15] MEDS: metroNIDAZOLE 500 MG/NS (PMX) 100 ML IVPB SCH ×4 (06:02→22:58)
[2016-11-15 07:59] LABS: AADO2 Arterial 149.5 mmHg (7.0-24.0); Allen Test ACCEPTAB; Arterial Base Excess -11.8 mmol/L (-3.0-3); Arterial COHb 0.2 % (0.0-3.0); Arterial Fraction of Oxyhgb 92.9 % (93.0-99.0); Arterial HCO3 11.7 mmol/L (22.0-26.0); Arterial MetHb 0.7 % (0.0-1.5); Arterial Total Hemglobin 9.3 g/dl (12.0-18.0); Blood Gas Low PEEP Setting 0 cmH2O; MODE VENT - AC
--- NOTE | 2016-11-15 09:14 | RADRPT ---
PROCEDURE: XR Chest. CLINICAL INDICATION: pna chf TECHNIQUE: Single frontal view of the chest was obtained. COMPARISON: Chest x-ray from 11/12/2016 FINDINGS: A tracheostomy and left-sided PICC line are again noted, unchanged in position. There are stable low lung volumes and cardiomegaly with prominence of interstitial markings, likely due to a combination of congestive changes and vascular crowding. There is a stable retrocardiac opacity due to atelectasis, infiltrate, and / or effusion. IMPRESSION: No significant interval change. RPTAT: EE Physician Ariadne Date Time Electronically viewed and signed by Physician Ariadne on 11/15/2016 09:14 /
[2016-11-15] MEDS: AMIODARONE 200 MG TAB NGT SCH (09:59)
[2016-11-15] MEDS: FAMOTIDINE 20 MG INJ IV SCH (09:59)
[2016-11-15] MEDS: CEFEPIME 2GM/50 ML (PMX) 50 ML IVPB SCH ×2 (09:59→21:25)
--- NOTE | 2016-11-15 10:13 | CONS ---
Date/Time of Note Date/Time of Note DATE: 11/15/16 TIME: 10:11 Consult Date/Type/Reason Admit Date/Time Nov 13, 2016 at 04:34 Type of Consultation: pulmonary ICU Subjective Continues to deteriorate increasing vasopressor requirements Remains somnolent on mechanical ventilation Increasing abdominal distention Elevated G-tube residuals Objective Vital Signs Date Time Temp Pulse Resp B/P Pulse Ox O2 Delivery O2 Flow Rate FiO2 11/15/16 08:00 87 11/15/16 06:30 21 91/48 98 11/15/16 06:00 Mechanical Ventilator 11/15/16 05:42 35 11/15/16 04:00 97.9 Intake and Output 11/14/16 11/14/16 11/15/16 15:00 23:00 07:00 Intake Total 204.96 ml 325.30 ml 789.82 ml Output Total 35 ml 60 ml Balance 204.96 ml 290.30 ml 729.82 ml Exam PHYSICAL EXAMINATION GENERAL: Elderly gentleman, on mechanical ventilation VITAL SIGNS: see below. HEENT: Pupils equal, round, and reactive to light. Tracheostomy site clean and intact. CARDIAC: S1, S2, no added sounds or murmurs CHEST: Diminished air entry bilaterally. ABDOMEN: Mildly distended. No bowel sounds but no guarding or rebound EXTREMITIES: No cyanosis, clubbing or edema. NEUROLOGIC: Unable to assess Results/Medications Result Diagram: 11/15/16 0400 11/15/16 0400 Results 24 hrs Laboratory Tests Test 11/14/16 10:21 11/14/16 13:00 11/14/16 15:16 11/14/16 18:03 Bedside Glucose 93 63 L 82 76 Test 11/15/16 00:01 11/15/16 04:00 11/15/16 06:00 11/15/16 07:00 Bedside Glucose 100 107 White Blood Count 12.3 H Red Blood Count 3.18 L Hemoglobin 8.4 L Hematocrit 28.1 L Mean Corpuscular Volume 88.4 Mean Corpuscular Hemoglobin 26.4 L Mean Corpuscular Hemoglobin Concent 29.9 L Red Cell Distribution Width 19.6 H Platelet Count 169 # Mean Platelet Volume 11.0 H Neutrophils % 66.8 Lymphocytes % 18.1 Monocytes % 6.9 Eosinophils % 7.2 H Basophils % 0.3 Nucleated Red Blood Cells % 0.4 H Neutrophils # 8.2 H Lymphocytes # 2.2 Monocytes # 0.9 Eosinophils # 0.9 H Basophils # 0.0 Nucleated Red Blood Cells # 0.1 H Sodium Level 138 Potassium Level 3.7 Chloride Level 110 Carbon Dioxide Level 15 L Anion Gap 17 H Blood Urea Nitrogen 35 H Creatinine 1.73 H Glucose Level 98 # Lactic Acid Level 6.3 *H Calcium Level 8.6 Phosphorus Level 6.2 H Magnesium Level 2.0 Ammonia 131 H Blood Gas Specimen Source Blood arterial Arterial Blood Date Drawn 11/15/2016 7:20:42 AM Arterial Blood pH (Temp corrected) 7.378 Arterial Blood pCO2 (Temp correct) 20.3 L Arterial Blood pO2 (Temp corrected) 76.5 L Arterial Blood HCO3 11.7 L Arterial Blood Base Excess -11.8 L Arterial Blood Oxygen Saturation 93.7 L Vinayak Test ACCEPTAB Arterial Blood Gas Puncture Site Right Radial Arterial Blood Carboxyhemoglobin 0.2 Arterial Blood Methemoglobin 0.7 Blood Gas A-a O2 Differential 149.5 H Oxyhemoglobin Percent 92.9 L Total Hemoglobin 9.3 L Blood Gas Temperature 37.0 Blood Gas Respiration Rate 12.0 Blood Gas Actual Respiration Rate 15 Blood Gas Modality VENT - AC FiO2 35.0 Blood Gas Tidal Volume 550.0 Blood Gas Low PEEP Setting 0 Blood Gas Notified Whom JLD Blood Gas Notified Time 11/15/2016 7:59:32 AM Medications Current Medications Norepinephrine 16 mg/Dextrose 500 ml @ 1.87 mls/hr TITRATE IV Last administered on 11/14/16 20:11; Admin Dose 16.87 MLS/HR; Start 11/13/16 at 01: 00 Dobutamine HCl/ Dextrose 250 ml @ 12.75 mls/ hr TITRATE IV ; Start 11/13/16 at 06:00 Cefepime HCl (Maxipime 2gm/50 ml (Pmx)) 50 ml @ 100 mls/hr Q12 IVPB Last administered on 11/15/16 09:59; Admin Dose 100 MLS/HR; Start 11/13/16 at 09:00 Nitroglycerin (Nitroglycerin (Sl Tab) 0.4 Mg) 1 tab Q5M PRN SL CHEST PAIN; Start 11/13/16 at 06:00 Famotidine (Pepcid Iv) 20 mg DAILY IV Last administered on 11/15/16 09:59; Admin Dose 20 MG; Start 11/13/16 at 09:00 Miscellaneous Information (Pending Santyl Order For Wound Care) This patient lopez... PRN PRN XX WOUND CARE; Start 11/14/16 at 03:30 Insulin Aspart (Novolog Insulin Pen) NOVOLOG *MILD* ALGORITHM Q6 SC ; Start at 12:00 Diagnostic Test (Pha) (Accu-Chek) 1 ea 02 XX ; Start 11/15/16 at 02:00 Miscellaneous Information 1 ea NOTE XX ; Start 11/14/16 at 10:00 Glucose (Glutose) 15 gm Q15M PRN PO DECREASED GLUCOSE; Start 11/14/16 at 10:00 Glucose (Glutose) 22.5 gm Q15M PRN PO DECREASED GLUCOSE; Start 11/14/16 at 10: 00 Dextrose (D50w Syringe) 25 ml Q15M PRN IV DECREASED GLUCOSE Last administered on 11/14/16 13:05; Admin Dose 25 ML; Start 11/14/16 at 10:00 Dextrose (D50w Syringe) 50 ml Q15M PRN IV DECREASED GLUCOSE; Start 11/14/16 at 10:00 Glucagon (Glucagen) 1 mg Q15M PRN IM DECREASED GLUCOSE; Start 11/14/16 at 10:00 Glucose (Glutose) 15 gm Q15M PRN BUCCAL DECREASED GLUCOSE; Start 11/14/16 at 10 :00 Amiodarone HCl 200 mg 200 mg DAILY NGT Last administered on 11/15/16 09:59; Admin Dose 200 MG; Start 11/15/16 at 09:00 Metronidazole 100 ml @ 100 mls/hr Q8 IVPB Last administered on 11/15/16 06:02 ; Admin Dose 100 MLS/HR; Start 11/14/16 at 22:00 Caspofungin/ Sodium Chloride (Cancidas/NS) 250 ml @ 250 mls/hr Q24H IVPB ; Start 11/15/16 at 18:30 Assessment/Plan Chief Complaint/Hosp Course Assessment 1. Septic shock polymicrobial continues vasopressor 2. Vent dependent respiratory failure continues mechanical ventilation 3. History of CVA with encephalopathy change from baseline 4. Renal insufficiency 5. Metabolic acidosis likely secondary to renal insufficiency 6. Dysphagia with G-tube 7. Acute abdomen concern for underlying ischemic patient is not a surgical candidate Critical care time 35 minutes Problems: MUNIR DESHPANDE MD, [facility] Nov 15, 2016 10:13
--- NOTE | 2016-11-15 12:50 | CONS ---
Date/Time of Note Date/Time of Note DATE: 11/15/16 TIME: 12:49 Assessment/Plan Assessment/Plan Additional Assessment/Plan Septic shock Acute blood loss anemia Elevated troponin likely secondary to above Respiratory failure Paroxysmal atrial fibrillation, currently sinus rhythm Paroxysmal atrial tachycardia Preserved ejection fraction Acute kidney injury -IV pressor to maintain SBP greater than 90 and her map above 60, antibiotics as per infectious disease. Withhold any antihypertensives at the current time. Continue maintenance amiodarone if no contraindication to help maintain in sinus rhythm. Consultation Date/Type/Reason Admit Date/Time Nov 13, 2016 at 04:34 Type of Consultation: cv 24 HR Interval Summary Free Text/Dictation Patient seen and examined, made DNR Exam/Review of Systems Vital Signs Vitals Vital Signs Date Time Temp Pulse Resp B/P Pulse Ox O2 Delivery O2 Flow Rate FiO2 11/15/16 12:00 87 11/15/16 06:30 21 91/48 98 11/15/16 06:00 Mechanical Ventilator 11/15/16 05:42 35 11/15/16 04:00 97.9 Intake and Output 11/14/16 11/14/16 11/15/16 15:00 23:00 07:00 Intake Total 204.96 ml 325.30 ml 789.82 ml Output Total 35 ml 60 ml Balance 204.96 ml 290.30 ml 729.82 ml Exam Awake, no apparent distress Head: normocephalic Neck: other (Tracheostomy) Respiratory: other (Coarse breath sounds bilaterally, no wheezing) Cardiovascular: other (S1-S2 heard), regular rate and rhythm Gastrointestinal: bowel sounds, distended, non-tender, soft Extremities: edema Results Result Diagram: 11/15/16 0400 11/15/16 0400 Results 24 hrs Laboratory Tests Test 11/14/16 13:00 11/14/16 15:16 11/14/16 18:03 11/15/16 00:01 Bedside Glucose 63 L 82 76 100 Test 11/15/16 04:00 11/15/16 06:00 11/15/16 07:00 White Blood Count 12.3 H Red Blood Count 3.18 L Hemoglobin 8.4 L Hematocrit 28.1 L Mean Corpuscular Volume 88.4 Mean Corpuscular Hemoglobin 26.4 L Mean Corpuscular Hemoglobin Concent 29.9 L Red Cell Distribution Width 19.6 H Platelet Count 169 # Mean Platelet Volume 11.0 H Neutrophils % 66.8 Lymphocytes % 18.1 Monocytes % 6.9 Eosinophils % 7.2 H Basophils % 0.3 Nucleated Red Blood Cells % 0.4 H Neutrophils # 8.2 H Lymphocytes # 2.2 Monocytes # 0.9 Eosinophils # 0.9 H Basophils # 0.0 Nucleated Red Blood Cells # 0.1 H Sodium Level 138 Potassium Level 3.7 Chloride Level 110 Carbon Dioxide Level 15 L Anion Gap 17 H Blood Urea Nitrogen 35 H Creatinine 1.73 H Glucose Level 98 # Lactic Acid Level 6.3 *H Calcium Level 8.6 Phosphorus Level 6.2 H Magnesium Level 2.0 Ammonia 131 H Bedside Glucose 107 Blood Gas Specimen Source Blood arterial Arterial Blood Date Drawn 11/15/2016 7:20:42 AM Arterial Blood pH (Temp corrected) 7.378 Arterial Blood pCO2 (Temp correct) 20.3 L Arterial Blood pO2 (Temp corrected) 76.5 L Arterial Blood HCO3 11.7 L Arterial Blood Base Excess -11.8 L Arterial Blood Oxygen Saturation 93.7 L Vinayak Test ACCEPTAB Arterial Blood Gas Puncture Site Right Radial Arterial Blood Carboxyhemoglobin 0.2 Arterial Blood Methemoglobin 0.7 Blood Gas A-a O2 Differential 149.5 H Oxyhemoglobin Percent 92.9 L Total Hemoglobin 9.3 L Blood Gas Temperature 37.0 Blood Gas Respiration Rate 12.0 Blood Gas Actual Respiration Rate 15 Blood Gas Modality VENT - AC FiO2 35.0 Blood Gas Tidal Volume 550.0 Blood Gas Low PEEP Setting 0 Blood Gas Notified Whom JLD Blood Gas Notified Time 11/15/2016 7:59:32 AM Medications Medications Current Medications Norepinephrine 16 mg/Dextrose 500 ml @ 1.87 mls/hr TITRATE IV Last administered on 11/14/16 20:11; Admin Dose 16.87 MLS/HR; Start 11/13/16 at 01: 00 Dobutamine HCl/ Dextrose 250 ml @ 12.75 mls/ hr TITRATE IV ; Start 11/13/16 at 06:00 Cefepime HCl (Maxipime 2gm/50 ml (Pmx)) 50 ml @ 100 mls/hr Q12 IVPB Last administered on 11/15/16 09:59; Admin Dose 100 MLS/HR; Start 11/13/16 at 09:00 Nitroglycerin (Nitroglycerin (Sl Tab) 0.4 Mg) 1 tab Q5M PRN SL CHEST PAIN; Start 11/13/16 at 06:00 Famotidine (Pepcid Iv) 20 mg DAILY IV Last administered on 11/15/16 09:59; Admin Dose 20 MG; Start 11/13/16 at 09:00 Miscellaneous Information (Pending Santyl Order For Wound Care) This patient lopez... PRN PRN XX WOUND CARE; Start 11/14/16 at 03:30 Insulin Aspart (Novolog Insulin Pen) NOVOLOG *MILD* ALGORITHM Q6 SC ; Start at 12:00 Diagnostic Test (Pha) (Accu-Chek) 1 ea 02 XX ; Start 11/15/16 at 02:00 Miscellaneous Information 1 ea NOTE XX ; Start 11/14/16 at 10:00 Glucose (Glutose) 15 gm Q15M PRN PO DECREASED GLUCOSE; Start 11/14/16 at 10:00 Glucose (Glutose) 22.5 gm Q15M PRN PO DECREASED GLUCOSE; Start 11/14/16 at 10: 00 Dextrose (D50w Syringe) 25 ml Q15M PRN IV DECREASED GLUCOSE Last administered on 11/14/16 13:05; Admin Dose 25 ML; Start 11/14/16 at 10:00 Dextrose (D50w Syringe) 50 ml Q15M PRN IV DECREASED GLUCOSE; Start 11/14/16 at 10:00 Glucagon (Glucagen) 1 mg Q15M PRN IM DECREASED GLUCOSE; Start 11/14/16 at 10:00 Glucose (Glutose) 15 gm Q15M PRN BUCCAL DECREASED GLUCOSE; Start 11/14/16 at 10 :00 Amiodarone HCl 200 mg 200 mg DAILY NGT Last administered on 11/15/16 09:59; Admin Dose 200 MG; Start 11/15/16 at 09:00 Metronidazole 100 ml @ 100 mls/hr Q8 IVPB Last administered on 11/15/16 06:02 ; Admin Dose 100 MLS/HR; Start 11/14/16 at 22:00 Caspofungin/ Sodium Chloride (Cancidas/NS) 250 ml @ 250 mls/hr Q24H IVPB ; Start 11/15/16 at 18:30 Ervin Ceja DO Nov 15, 2016 12:50
--- NOTE | 2016-11-15 15:10 | PN ---
Date/Time of Note Date/Time of Note DATE: 11/15/16 TIME: 15:09 Assessment/Plan VTE Prophylaxis VTE Prophylaxis Intervention: SCD's Assessment/Plan Chief Complaint/Hosp Course 1. Septic shock 2/2 urinary tract infection -cont Abx and Pressors now, ID consult appreciated 2. 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 Non-ST myocardial infarction with elevated troponin, likely demand ischemia secondary to anemia. 4. Diabetic mellitus . Place the patient on Lantus, continue insulin sliding scale. 5. THEO due to ATN from sepsis and prerenal azotemia - stable cr 7. Sacral decubitus, continue wound care, status post surgical debridement on 11/01/2016, continue postop care CODE STATUS-DNR DVT prophylaxis; SCD, no Heparin/Lovenox due to GI bleeding Problems: Subjective 24 Hr Interval Summary Subjective hx not possible: pt non-verbal Exam/Review of Systems Vital Signs Vitals Vital Signs Date Time Temp Pulse Resp B/P Pulse Ox O2 Delivery O2 Flow Rate FiO2 11/15/16 14:15 83 24 95/55 97 11/15/16 13:45 35 11/15/16 12:00 99.0 Mechanical Ventilator Intake and Output 11/14/16 11/14/16 11/15/16 15:00 23:00 07:00 Intake Total 204.96 ml 325.30 ml 789.82 ml Output Total 35 ml 60 ml Balance 204.96 ml 290.30 ml 729.82 ml Exam Constitutional: non-verbal Respiratory: clear to auscultation Cardiovascular: regular rate and rhythm Gastrointestinal: soft, No distended Musculoskeletal: nl extremities to inspection Results Result Diagram: 11/15/16 0400 11/15/16 0400 Results 24 hrs Laboratory Tests Test 11/14/16 15:16 11/14/16 18:03 11/15/16 00:01 11/15/16 04:00 Bedside Glucose 82 76 100 White Blood Count 12.3 H Red Blood Count 3.18 L Hemoglobin 8.4 L Hematocrit 28.1 L Mean Corpuscular Volume 88.4 Mean Corpuscular Hemoglobin 26.4 L Mean Corpuscular Hemoglobin Concent 29.9 L Red Cell Distribution Width 19.6 H Platelet Count 169 # Mean Platelet Volume 11.0 H Neutrophils % 66.8 Lymphocytes % 18.1 Monocytes % 6.9 Eosinophils % 7.2 H Basophils % 0.3 Nucleated Red Blood Cells % 0.4 H Neutrophils # 8.2 H Lymphocytes # 2.2 Monocytes # 0.9 Eosinophils # 0.9 H Basophils # 0.0 Nucleated Red Blood Cells # 0.1 H Sodium Level 138 Potassium Level 3.7 Chloride Level 110 Carbon Dioxide Level 15 L Anion Gap 17 H Blood Urea Nitrogen 35 H Creatinine 1.73 H Glucose Level 98 # Lactic Acid Level 6.3 *H Calcium Level 8.6 Phosphorus Level 6.2 H Magnesium Level 2.0 Ammonia 131 H Test 11/15/16 06:00 11/15/16 07:00 11/15/16 12:51 11/15/16 13:04 Bedside Glucose 107 Blood Gas Specimen Source Blood arterial Arterial Blood Date Drawn 11/15/2016 7:20:42 AM Arterial Blood pH (Temp corrected) 7.378 Arterial Blood pCO2 (Temp correct) 20.3 L Arterial Blood pO2 (Temp corrected) 76.5 L Arterial Blood HCO3 11.7 L Arterial Blood Base Excess -11.8 L Arterial Blood Oxygen Saturation 93.7 L Vinayak Test ACCEPTAB Arterial Blood Gas Puncture Site Right Radial Arterial Blood Carboxyhemoglobin 0.2 Arterial Blood Methemoglobin 0.7 Blood Gas A-a O2 Differential 149.5 H Oxyhemoglobin Percent 92.9 L Total Hemoglobin 9.3 L Blood Gas Temperature 37.0 Blood Gas Respiration Rate 12.0 Blood Gas Actual Respiration Rate 15 Blood Gas Modality VENT - AC FiO2 35.0 Blood Gas Tidal Volume 550.0 Blood Gas Low PEEP Setting 0 Blood Gas Notified Whom JLD Blood Gas Notified Time 11/15/2016 7:59:32 AM Lab Scanned Report REFERENCE LAB REFERENCE LAB Test 11/15/16 14:08 Bedside Glucose 107 Medications Medications Current Medications Norepinephrine 16 mg/Dextrose 500 ml @ 1.87 mls/hr TITRATE IV Last administered on 11/14/16 20:11; Admin Dose 16.87 MLS/HR; Start 11/13/16 at 01: 00 Dobutamine HCl/ Dextrose 250 ml @ 12.75 mls/ hr TITRATE IV ; Start 11/13/16 at 06:00 Cefepime HCl (Maxipime 2gm/50 ml (Pmx)) 50 ml @ 100 mls/hr Q12 IVPB Last administered on 11/15/16 09:59; Admin Dose 100 MLS/HR; Start 11/13/16 at 09:00 Nitroglycerin (Nitroglycerin (Sl Tab) 0.4 Mg) 1 tab Q5M PRN SL CHEST PAIN; Start 11/13/16 at 06:00 Famotidine (Pepcid Iv) 20 mg DAILY IV Last administered on 11/15/16 09:59; Admin Dose 20 MG; Start 11/13/16 at 09:00 [facility] This patient lopez... PRN PRN XX WOUND CARE; Start 11/14/16 at 03:30 Insulin Aspart (Novolog Insulin Pen) NOVOLOG *MILD* ALGORITHM Q6 SC ; Start at 12:00 Diagnostic Test (Pha) (Accu-Chek) 1 ea 02 XX ; Start 11/15/16 at 02:00 Miscellaneous Information 1 ea NOTE XX ; Start 11/14/16 at 10:00 Glucose (Glutose) 15 gm Q15M PRN PO DECREASED GLUCOSE; Start 11/14/16 at 10:00 Glucose (Glutose) 22.5 gm Q15M PRN PO DECREASED GLUCOSE; Start 11/14/16 at 10: 00 Dextrose (D50w Syringe) 25 ml Q15M PRN IV DECREASED GLUCOSE Last administered on 11/14/16 13:05; Admin Dose 25 ML; Start 11/14/16 at 10:00 Dextrose (D50w Syringe) 50 ml Q15M PRN IV DECREASED GLUCOSE; Start 11/14/16 at 10:00 Glucagon (Glucagen) 1 mg Q15M PRN IM DECREASED GLUCOSE; Start 11/14/16 at 10:00 Glucose (Glutose) 15 gm Q15M PRN BUCCAL DECREASED GLUCOSE; Start 11/14/16 at 10 :00 Amiodarone HCl 200 mg 200 mg DAILY NGT Last administered on 11/15/16 09:59; Admin Dose 200 MG; Start 11/15/16 at 09:00 Metronidazole 100 ml @ 100 mls/hr Q8 IVPB Last administered on 11/15/16 06:02 ; Admin Dose 100 MLS/HR; Start 11/14/16 at 22:00 Caspofungin/ Sodium Chloride (Cancidas/NS) 250 ml @ 250 mls/hr Q24H IVPB ; Start 11/15/16 at 18:30 ISIS BATISTA Nov 15, 2016 15:10
--- NOTE | 2016-11-15 16:28 | CONS ---
Date/Time of Note Date/Time of Note DATE: 11/15/16 TIME: 16: Assessment/Plan Assessment/Plan Chief Complaint/Hosp Course ID PROGRESS NOTE CURRENT ABX=> Cefepime #3 + Candidas #2 + Flagyl#2 * s/p ABX 11 days Zyvox, Colistin, Flagyl-> DC'd 11/10 * s/p Vanco IV + Merrem prior 24H INTERVAL SUMMARY * CLINICALLY STATUS QUO = CHRONIC RECURRENT SEPSIS => Chronic encephalopathy, stable on pressors in ICU, no fevers, VDRF, (+)Anasarca * Low grade temps, leukocytosis * PHYSICAL EXAMINATION: GENERAL: VSS, NAD, Afebrile HEENT: Unremarkable NECK: Supple, trach-> Vent secure CHEST: Rise symmetrical, without dyspnea on observation HEART: Pulse RRR ABDOMEN: Soft, peg EXTREMITIES: Warm, trace edema SKIN: See wound photos ID ASSESSMENT 76 yo M admit with: 1. Recurrent sepsis w/shock, Tmax 99.2, WBC 11.8 on Levophed admitted back to [facility] <24H after DC to [place] = * s/p recent polymicrobial bacteremia due to multifactorial infx conditions below => RESOLVED 2. Recurrent yeast UTI 11/13/16, FC was changed 11/11/16 due to presence of yeast on prior cx 11/10/16 * s/p recent GNR UTI -/ received full course ABX Rx for recurrent urinary tract infection => s/p Colistin 11 days w/Primaxin Rx prior to Colistin 3. Chronic respiratory failure-> trach/Vent 4. Dysphagia -> s/p PEG 5. 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 CHF w/anasarca, ascites = fluid overloaded * 11/13 CXR 1. Mild failure with new left pleural effusion. 2. Differential considerations include left lung base pneumonia in setting of sepsis. * 11/13 CT ABD Moderate bilateral pleural effusions with extensive associated atelectasis. Concurrent pneumonia would not be excluded. Large intra-abdominal ascites and anasarca. 7. Atrial fibrillation. 8. Diabetes, blood sugars controlled. 9. Unstageable sacral decubitus => s/p debridement 11/01/16 * s/p lengthy ABX course for MRSA/ACBA=>ACBA may be colonized 10. S/P Acute anemia=> GI work-up completed with no obvious bleeding source * s/p EGD 10/27/16 * s/p Colonoscopy 10/31/16 (+)MRSA Nares ->on Bactroban, s/p Vanco IV INVASIVES: Trach, PEG, FC (changed 11/11), PICC (10/25/2016) ABX ALLERGY: KNDA CURRENT ABX: Cefepime #3 + Candidas #2 + Flagyl#2 s/p ABX 11 days Zyvox, Colistin, Flagyl-> DC'd 11/10 s/p Vanco IV + Merrem prior ID RECOMMENDATIONS 1. Continue Cefepime + Flagyl anaerobic coverage for PNA, decubs, GI 2. Started on Cancidas for yeast UTI = NOT C.Albicans * FC was already changed on 11/11/16 due to presence of yeast == start Cancidas will change FC again once med onboard * It is still dubious whether the source of sepsis is the Funguria vs PNA vs Decubs == will attempt to treat the yeast UTI 3. Continue topical wound treatment . Problems: Consultation Date/Type/Reason Admit Date/Time Nov 13, 2016 at 04:34 Type of Consultation: cv Exam/Review of Systems Vital Signs Vitals Vital Signs Date Time Temp Pulse Resp B/P Pulse Ox O2 Delivery O2 Flow Rate FiO2 11/15/16 14:15 83 24 95/55 97 11/15/16 13:45 35 11/15/16 12:00 99.0 Mechanical Ventilator Intake and Output 11/14/16 11/14/16 11/15/16 15:00 23:00 07:00 Intake Total 204.96 ml 325.30 ml 789.82 ml Output Total 55 ml 55 ml 65 ml Balance 149.96 ml 270.30 ml 724.82 ml Results Result Diagram: 11/15/16 0400 11/15/16 0400 Results 24 hrs Laboratory Tests Test 11/14/16 18:03 11/15/16 00:01 11/15/16 04:00 11/15/16 06:00 Bedside Glucose 76 100 107 White Blood Count 12.3 H Red Blood Count 3.18 L Hemoglobin 8.4 L Hematocrit 28.1 L Mean Corpuscular Volume 88.4 Mean Corpuscular Hemoglobin 26.4 L Mean Corpuscular Hemoglobin Concent 29.9 L Red Cell Distribution Width 19.6 H Platelet Count 169 # Mean Platelet Volume 11.0 H Neutrophils % 66.8 Lymphocytes % 18.1 Monocytes % 6.9 Eosinophils % 7.2 H Basophils % 0.3 Nucleated Red Blood Cells % 0.4 H Neutrophils # 8.2 H Lymphocytes # 2.2 Monocytes # 0.9 Eosinophils # 0.9 H Basophils # 0.0 Nucleated Red Blood Cells # 0.1 H Sodium Level 138 Potassium Level 3.7 Chloride Level 110 Carbon Dioxide Level 15 L Anion Gap 17 H Blood Urea Nitrogen 35 H Creatinine 1.73 H Glucose Level 98 # Lactic Acid Level 6.3 *H Calcium Level 8.6 Phosphorus Level 6.2 H Magnesium Level 2.0 Ammonia 131 H Test 11/15/16 07:00 11/15/16 12:51 11/15/16 13:04 11/15/16 14:08 Blood Gas Specimen Source Blood arterial Arterial Blood Date Drawn 11/15/2016 7:20:42 AM Arterial Blood pH (Temp corrected) 7.378 Arterial Blood pCO2 (Temp correct) 20.3 L Arterial Blood pO2 (Temp corrected) 76.5 L Arterial Blood HCO3 11.7 L Arterial Blood Base Excess -11.8 L Arterial Blood Oxygen Saturation 93.7 L Vinayak Test ACCEPTAB Arterial Blood Gas Puncture Site Right Radial Arterial Blood Carboxyhemoglobin 0.2 Arterial Blood Methemoglobin 0.7 Blood Gas A-a O2 Differential 149.5 H Oxyhemoglobin Percent 92.9 L Total Hemoglobin 9.3 L Blood Gas Temperature 37.0 Blood Gas Respiration Rate 12.0 Blood Gas Actual Respiration Rate 15 Blood Gas Modality VENT - AC FiO2 35.0 Blood Gas Tidal Volume 550.0 Blood Gas Low PEEP Setting 0 Blood Gas Notified Whom JLD Blood Gas Notified Time 11/15/2016 7:59:32 AM Lab Scanned Report REFERENCE LAB REFERENCE LAB Bedside Glucose 107 Medications Medications Current Medications Norepinephrine 16 mg/Dextrose 500 ml @ 1.87 mls/hr TITRATE IV Last administered on 11/14/16t 20:11; Admin Dose 16.87 MLS/HR; Start 11/13/16 at 01: 00 Dobutamine HCl/ Dextrose 250 ml @ 12.75 mls/ hr TITRATE IV ; Start 11/13/16 at 06:00 Cefepime HCl (Maxipime 2gm/50 ml (Pmx)) 50 ml @ 100 mls/hr Q12 IVPB Last administered on 11/15/16 09:59; Admin Dose 100 MLS/HR; Start 11/13/16 at 09:00 Nitroglycerin (Nitroglycerin (Sl Tab) 0.4 Mg) 1 tab Q5M PRN SL CHEST PAIN; Start 11/13/16 at 06:00 Famotidine (Pepcid Iv) 20 mg DAILY IV Last administered on 11/15/16 09:59; Admin Dose 20 MG; Start 11/13/16 at 09:00 Miscellaneous Information [facility] This patient lopez... PRN PRN XX WOUND CARE; Start 11/14/16 at 03:30 Insulin Aspart (Novolog Insulin Pen) NOVOLOG *MILD* ALGORITHM Q6 SC ; Start at 12:00 Diagnostic Test (Pha) (Accu-Chek) 1 ea 02 XX ; Start 11/15/16 at 02:00 Miscellaneous Information 1 ea NOTE XX ; Start 11/14/16 at 10:00 Glucose (Glutose) 15 gm Q15M PRN PO DECREASED GLUCOSE; Start 11/14/16 at 10:00 Glucose (Glutose) 22.5 gm Q15M PRN PO DECREASED GLUCOSE; Start 11/14/16 at 10: 00 Dextrose (D50w Syringe) 25 ml Q15M PRN IV DECREASED GLUCOSE Last administered on 11/14/16 13:05; Admin Dose 25 ML; Start 11/14/16 at 10:00 Dextrose (D50w Syringe) 50 ml Q15M PRN IV DECREASED GLUCOSE; Start 11/14/16 at 10:00 Glucagon (Glucagen) 1 mg Q15M PRN IM DECREASED GLUCOSE; Start 11/14/16 at 10:00 Glucose (Glutose) 15 gm Q15M PRN BUCCAL DECREASED GLUCOSE; Start 11/14/16 at 10 :00 Amiodarone HCl 200 mg 200 mg DAILY NGT Last administered on 11/15/16 09:59; Admin Dose 200 MG; Start 11/15/16 at 09:00 Metronidazole 100 ml @ 100 mls/hr Q8 IVPB Last administered on 11/15/16 14:13 ; Admin Dose 100 MLS/HR; Start 11/14/16 at 22:00 Caspofungin/ Sodium Chloride (Cancidas/NS) 250 ml @ 250 mls/hr Q24H IVPB ; Start 11/15/16 at 18:30 ANTON PORTILLO NP Nov 15, 2016 16:28
[2016-11-15] MEDS: CASPOFUNGIN 50 MG in SOD CHLORIDE 0.9% 250 ML IVPB SCH (17:36)
--- NOTE | 2016-11-15 19:05 | PN ---
DATE: 11/15/2016 SUBJECTIVE: 1. Urinary retention. 2. History of gross hematuria and urinary tract infection. The patient is on a respirator and has no complaints himself. He was transferred to the ICU yesterd ay because of hypotension. OBJECTIVE: VITAL SIGNS: Temperature is 99. The blood pressure 96/59, pulse is 85, respirations 19. ABDOMEN: Obese and distended. External genitalia, he does have penoscrotal edema. This has increa sed since I had seen him before and the Ferreira catheter is draining clear urine. There is no bleedi ng. LOWER EXTREMITIES: Also edematous. LABORATORY DATA: The CBC shows a white count of 12.3, hemoglobin 8.4, hematocrit 28.1. BUN is 35, creatinine 1.73, sodium 138, potassium 3.7, chloride 110, CO2 15. Last urine culture from 2 days ag o showed yeast, not Sharyn albicans. The patient is on caspofungin IV 50 mg q. 24h. IMPRESSION: Gross hematuria that has cleared and urinary tract infection with yeast and it is not s urprising in this patient. He has had an indwelling Ferreira catheter for a long time even though I ch anged it a few days back and he received antibiotic for a long time as well. PLAN: To keep the Ferreira catheter in place and elevate the scrotum on a towel at all times to help d ecrease the swelling. Dictated By: TANA DUBOIS/GENOVEVA Conf#: [id number] DID#: [id number]
[2016-11-16] VITALS (103 sets, daily range): BP systolic 63–109; BP diastolic 29–68; PULSE 72–91; RESP 11–26
[2016-11-16] MEDS: ALBUTEROL 18 GM INHALER INH SCH ×4 (02:00→19:19)
[2016-11-16] MEDS ORDERED: COLLAGENASE 30 GM TUBE TOP PRN (02:00)
[2016-11-16] MEDS: ACCU-CHEK XX SCH (02:00)
[2016-11-16] MEDS: INSULIN ASPART [NOVOLOG] 3 ML PEN SC SCH ×3 (06:00→18:04)
[2016-11-16 06:07] LABS: ADD SCAN DIFF NO
[2016-11-16] MEDS: metroNIDAZOLE 500 MG/NS (PMX) 100 ML IVPB SCH ×3 (06:11→22:33)
[2016-11-16 06:35] LABS: HEMATOCRIT 26.2 % (42.0-52.0); HEMOGLOBIN 8.2 g/dl (14.0-18.0); MEAN CORPUSCULAR HEMOGLOBIN 27.4 pg (29.0-33.0); MEAN CORPUSCULAR HGB CONC 31.3 g/dl (32.0-37.0); MEAN CORPUSCULAR VOLUME 87.6 fl (82.0-101.0); MEAN PLATELET VOLUME 11.1 fl (7.4-10.4); PLATELET COUNT 136 10^3/UL (140-415); RED BLOOD COUNT 2.99 10^6/ul (4.70-6.10); RED CELL DISTRIBUTION WIDTH 19.3 % (11.5-14.5); WHITE BLOOD COUNT 12.4 10^3/ul (4.8-10.8)
[2016-11-16 06:40] LABS: POTASSIUM 3.4 mmol/L (3.5-5.1)
[2016-11-16 06:43] LABS: CREATININE 2.06 mg/dl (0.61-1.24)
[2016-11-16 06:44] LABS: CALCIUM 8.9 mg/dl (8.4-10.2)
[2016-11-16] MEDS: COLLAGENASE 30 GM TUBE TOP SCH (09:11)
[2016-11-16] MEDS: AMIODARONE 200 MG TAB NGT SCH (09:22)
[2016-11-16] MEDS: FAMOTIDINE 20 MG INJ IV SCH (09:22)
--- NOTE | 2016-11-16 10:30 | CONS ---
Date/Time of Note Date/Time of Note DATE: 11/16/16 TIME: 10:29 Consult Date/Type/Reason Admit Date/Time Nov 13, 2016 at 04:34 Type of Consultation: pulmonary ICU Subjective Patient continues mechanical ventilation appears comfortable no acute distress Continues vasopressor support Remains mostly somnolent Objective Vital Signs Date Time Temp Pulse Resp B/P Pulse Ox O2 Delivery O2 Flow Rate FiO2 11/16/16 08:00 81 11/16/16 07:50 21 94 35 11/16/16 07:00 90/53 Mechanical Ventilator 11/16/16 04:00 97.9 Intake and Output 11/15/16 11/15/16 11/16/16 15:00 23:00 07:00 Intake Total 324.96 ml 523.12 ml 261.25 ml Output Total 45 ml 60 ml 40 ml Balance 279.96 ml 463.12 ml 221.25 ml Exam PHYSICAL EXAMINATION GENERAL: Elderly gentleman, on mechanical ventilation VITAL SIGNS: see below. HEENT: Pupils equal, round, and reactive to light. Tracheostomy site clean and intact. CARDIAC: S1, S2, no added sounds or murmurs CHEST: Diminished air entry bilaterally. ABDOMEN: Mildly distended. No bowel sounds but no guarding or rebound EXTREMITIES: No cyanosis, clubbing or edema. NEUROLOGIC: Unable to assess Results/Medications Result Diagram: 11/16/16 0445 11/16/16 0445 Results 24 hrs Laboratory Tests Test 11/15/16 12:51 11/15/16 13:04 11/15/16 14:08 11/15/16 18:59 Lab Scanned Report REFERENCE LAB REFERENCE LAB Bedside Glucose 107 103 Test 11/15/16 23:45 11/16/16 04:45 11/16/16 06:04 Bedside Glucose 115 115 White Blood Count 12.4 H Red Blood Count 2.99 L Hemoglobin 8.2 L Hematocrit 26.2 L Mean Corpuscular Volume 87.6 Mean Corpuscular Hemoglobin 27.4 L Mean Corpuscular Hemoglobin Concent 31.3 L Red Cell Distribution Width 19.3 H Platelet Count 136 L Mean Platelet Volume 11.1 H Neutrophils % Lymphocytes % Monocytes % Neutrophils # Lymphocytes # Monocytes # Sodium Level 138 Potassium Level 3.4 L Chloride Level 108 Carbon Dioxide Level 12 L Anion Gap 21 H Blood Urea Nitrogen 35 H Creatinine 2.06 H Glucose Level 99 Calcium Level 8.9 Medications Current Medications Norepinephrine 16 mg/Dextrose 500 ml @ 1.87 mls/hr TITRATE IV Last administered on 11/16/16 06:14; Admin Dose 33.75 MLS/HR; Start 11/13/16 at 01: 00 Dobutamine HCl/ Dextrose 250 ml @ 12.75 mls/ hr TITRATE IV ; Start 11/13/16 at 06:00 Nitroglycerin (Nitroglycerin (Sl Tab) 0.4 Mg) 1 tab Q5M PRN SL CHEST PAIN; Start 11/13/16 at 06:00 Famotidine (Pepcid Iv) 20 mg DAILY IV Last administered on 11/15/16 09:59; Admin Dose 20 MG; Start 11/13/16 at 09:00 Insulin Aspart (Novolog Insulin Pen) NOVOLOG *MILD* ALGORITHM Q6 SC ; Start at 12:00 Diagnostic Test (Pha) (Accu-Chek) 1 ea 02 XX ; Start 11/15/16 at 02:00 Miscellaneous Information 1 ea NOTE XX ; Start 11/14/16 at 10:00 Glucose (Glutose) 15 gm Q15M PRN PO DECREASED GLUCOSE; Start 11/14/16 at 10:00 Glucose (Glutose) 22.5 gm Q15M PRN PO DECREASED GLUCOSE; Start 11/14/16 at 10: 00 Dextrose (D50w Syringe) 25 ml Q15M PRN IV DECREASED GLUCOSE Last administered on 11/14/16 13:05; Admin Dose 25 ML; Start 11/14/16 at 10:00 Dextrose (D50w Syringe) 50 ml Q15M PRN IV DECREASED GLUCOSE; Start 11/14/16 at 10:00 Glucagon (Glucagen) 1 mg Q15M PRN IM DECREASED GLUCOSE; Start 11/14/16 at 10:00 Glucose (Glutose) 15 gm Q15M PRN BUCCAL DECREASED GLUCOSE; Start 11/14/16 at 10 :00 Amiodarone HCl 200 mg 200 mg DAILY NGT Last administered on 11/15/16 09:59; Admin Dose 200 MG; Start 11/15/16 at 09:00 Metronidazole 100 ml @ 100 mls/hr Q8 IVPB Last administered on 11/16/16 06:11 ; Admin Dose 100 MLS/HR; Start 11/14/16 at 22:00 Caspofungin/ Sodium Chloride (Cancidas/NS) 250 ml @ 250 mls/hr Q24H IVPB Last administered on 11/15/16t 17:36; Admin Dose 250 MLS/HR; Start 11/15/16 at 18:30 Collagenase (Santyl) 1 applic PRN PRN TOP FULL THICKNESS WOUND; Start 11/16/16 at 02:00 Collagenase 1 applic 1 applic DAILY TOP ; Start 11/16/16 at 09:00 Cefepime HCl (Maxipime 2gm/50 ml (Pmx)) 50 ml @ 100 mls/hr Q24H IVPB ; Start at 21:00 Assessment/Plan Chief Complaint/Hosp Course Assessment 1. Septic shock polymicrobial continues vasopressor 2. Vent dependent respiratory failure continues mechanical ventilation 3. History of CVA with encephalopathy change from baseline 4. Renal insufficiency with severe metabolic acidosis 5. Metabolic acidosis likely secondary to renal insufficiency 6. Dysphagia with G-tube 7. Acute abdomen concern for underlying ischemic patient is not a surgical candidate Critical care time 35 minutes Overall very poor prognosis Problems: MUNIR DESHPANDE MD, [facility] Nov 16, 2016 10:30
[2016-11-16 10:58] LABS: EOSINOPHILS # 0.4 10^3/ul (0.0-0.5); LYMPHOCYTES # 1.5 10^3/ul (0.8-2.9); MONOCYTE # 0.4 10^3/ul (0.3-0.9); NEUTROPHIL # 8.7 10^3/ul (1.6-7.5)
--- NOTE | 2016-11-16 14:22 | CONS ---
Date/Time of Note Date/Time of Note DATE: 11/16/16 TIME: 14:21 Assessment/Plan Assessment/Plan Additional Assessment/Plan Septic shock Acute blood loss anemia Elevated troponin likely secondary to above Respiratory failure Paroxysmal atrial fibrillation, currently sinus rhythm Paroxysmal atrial tachycardia Preserved ejection fraction Acute kidney injury -IV pressor to maintain SBP greater than 90 and her map above 60, antibiotics as per infectious disease. Withhold any antihypertensives at the current time. Continue maintenance amiodarone if no contraindication to help maintain in sinus rhythm. Consultation Date/Type/Reason Admit Date/Time Nov 13, 2016 at 04:34 Type of Consultation: cv 24 HR Interval Summary Free Text/Dictation Patient seen and examined Exam/Review of Systems Vital Signs Vitals Vital Signs Date Time Temp Pulse Resp B/P Pulse Ox O2 Delivery O2 Flow Rate FiO2 11/16/16 12:00 79 11/16/16 11:40 21 95 35 11/16/16 11:15 89/53 11/16/16 11:00 Mechanical Ventilator 11/16/16 04:00 97.9 Intake and Output 11/15/16 11/15/16 11/16/16 15:00 23:00 07:00 Intake Total 324.96 ml 523.12 ml 295.00 ml Output Total 45 ml 60 ml 40 ml Balance 279.96 ml 463.12 ml 255.00 ml Exam No apparent distress Head: normocephalic Neck: other (Tracheostomy) Respiratory: other (Coarse breath sounds bilaterally, no wheezing) Cardiovascular: other (S1-S2 heard), regular rate and rhythm Gastrointestinal: bowel sounds, distended, non-tender, soft Extremities: edema Results Result Diagram: 11/16/16 0445 11/16/16 0445 Results 24 hrs Laboratory Tests Test 11/15/16 18:59 11/15/16 23:45 11/16/16 04:45 11/16/16 06:04 Bedside Glucose 103 115 115 White Blood Count 12.4 H Red Blood Count 2.99 L Hemoglobin 8.2 L Hematocrit 26.2 L Mean Corpuscular Volume 87.6 Mean Corpuscular Hemoglobin 27.4 L Mean Corpuscular Hemoglobin Concent 31.3 L Red Cell Distribution Width 19.3 H Platelet Count 136 L Mean Platelet Volume 11.1 H Neutrophils % 70.0 Band Neutrophils % 6.0 H Lymphocytes % 12.0 L Monocytes % 3.0 Eosinophils % 3.0 Promyelocytes % Blast Cells % 1.0 H Neutrophils # 8.7 H Lymphocytes # 1.5 Monocytes # 0.4 Eosinophils # 0.4 Promyelocytes # Blastocytes # 0.1 Differential Comment MANUAL DIFF Sodium Level 138 Potassium Level 3.4 L Chloride Level 108 Carbon Dioxide Level 12 L Anion Gap 21 H Blood Urea Nitrogen 35 H Creatinine 2.06 H Glucose Level 99 Calcium Level 8.9 Test 11/16/16 13:48 Bedside Glucose 113 Medications Medications Current Medications Norepinephrine 16 mg/Dextrose 500 ml @ 1.87 mls/hr TITRATE IV Last administered on 11/16/16 06:14; Admin Dose 33.75 MLS/HR; Start 11/13/16 at 01: 00 Dobutamine HCl/ Dextrose 250 ml @ 12.75 mls/ hr TITRATE IV ; Start 11/13/16 at 06:00 Nitroglycerin (Nitroglycerin (Sl Tab) 0.4 Mg) 1 tab Q5M PRN SL CHEST PAIN; Start 11/13/16 at 06:00 Famotidine (Pepcid Iv) 20 mg DAILY IV Last administered on 11/16/16 09:22; Admin Dose 20 MG; Start 11/13/16 at 09:00 Insulin Aspart (Novolog Insulin Pen) NOVOLOG *MILD* ALGORITHM Q6 SC ; Start at 12:00 Diagnostic Test (Pha) (Accu-Chek) 1 ea 02 XX ; Start 11/15/16 at 02:00 Miscellaneous Information 1 ea NOTE XX ; Start 11/14/16 at 10:00 Glucose (Glutose) 15 gm Q15M PRN PO DECREASED GLUCOSE; Start 11/14/16 at 10:00 Glucose (Glutose) 22.5 gm Q15M PRN PO DECREASED GLUCOSE; Start 11/14/16 at 10: 00 Dextrose (D50w Syringe) 25 ml Q15M PRN IV DECREASED GLUCOSE Last administered on 11/14/16 13:05; Admin Dose 25 ML; Start 11/14/16 at 10:00 Dextrose (D50w Syringe) 50 ml Q15M PRN IV DECREASED GLUCOSE; Start 11/14/16 at 10:00 Glucagon (Glucagen) 1 mg Q15M PRN IM DECREASED GLUCOSE; Start 11/14/16 at 10:00 Glucose (Glutose) 15 gm Q15M PRN BUCCAL DECREASED GLUCOSE; Start 11/14/16 at 10 :00 Amiodarone HCl 200 mg 200 mg DAILY NGT Last administered on 11/16/16 09:22; Admin Dose 200 MG; Start 11/15/16 at 09:00 Metronidazole 100 ml @ 100 mls/hr Q8 IVPB Last administered on 11/16/16 06:11 ; Admin Dose 100 MLS/HR; Start 11/14/16 at 22:00 Caspofungin/ Sodium Chloride (Cancidas/NS) 250 ml @ 250 mls/hr Q24H IVPB Last administered on 11/15/16 17:36; Admin Dose 250 MLS/HR; Start 11/15/16 at 18:30 Collagenase (Santyl) 1 applic PRN PRN TOP FULL THICKNESS WOUND; Start 11/16/16 at 02:00 Collagenase 1 applic 1 applic DAILY TOP ; Start 11/16/16 at 09:00 Cefepime HCl (Maxipime 2gm/50 ml (Pmx)) 50 ml @ 100 mls/hr Q24H IVPB ; Start at 21:00 Ervin Ceja DO Nov 16, 2016 14:22
--- NOTE | 2016-11-16 15:20 | CONS ---
Date/Time of Note Date/Time of Note DATE: 11/16/16 TIME: 15:15 Assessment/Plan Assessment/Plan Chief Complaint/Hosp Course ID PROGRESS NOTE CURRENT ABX DAY #4 => Cefepime #4 + Cancidas #3 + Flagyl#3 * s/p ABX 11 days Zyvox, Colistin, Flagyl-> DC'd 11/10 * s/p Vanco IV + Merrem prior 24H INTERVAL SUMMARY * Obtunded on the Vent, eyes open staring at ceiling non-tracking (+)Anasarca, large ascites * CHRONIC RECURRENT SEPSIS => Chronic encephalopathy, stable on pressors in ICU , no fevers, VDRF * Low grade temps, leukocytosis * Pt with multiple chronic wound on admission from [facility] -- patient reportedly refused to be moved by staff PHYSICAL EXAMINATION: GENERAL: VSS, NAD, Afebrile HEENT: Unremarkable NECK: Supple, trach-> Vent secure CHEST: Rise symmetrical, without dyspnea on observation HEART: Pulse RRR ABDOMEN: Soft, peg EXTREMITIES: Warm, trace edema SKIN: See wound photos ID ASSESSMENT 76 yo M admit with: 1. Recurrent sepsis w/shock, Tmax 99.2, WBC 11.8 on Levophed admitted back to [facility] <24H after DC to [place] = * s/p recent polymicrobial bacteremia due to multifactorial infx conditions below => RESOLVED 2. Recurrent yeast UTI 11/13/16, FC was changed 11/11/16 due to presence of yeast on prior cx 11/10/16 * s/p recent GNR UTI -/ received full course ABX Rx for recurrent urinary tract infection => s/p Colistin 11 days w/Primaxin Rx prior to Colistin 3. Chronic respiratory failure-> trach/Vent 4. Dysphagia -> s/p PEG 5. 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 CHF w/anasarca, ascites = fluid overloaded * 11/13 CXR 1. Mild failure with new left pleural effusion. 2. Differential considerations include left lung base pneumonia in setting of sepsis. * 11/13 CT ABD Moderate bilateral pleural effusions with extensive associated atelectasis. Concurrent pneumonia would not be excluded. Large intra-abdominal ascites and anasarca. 7. Atrial fibrillation. 8. Diabetes, blood sugars controlled. 9. Chronic decubs present on admission from [facility] => s/p debridement 11/01/16 * s/p lengthy ABX course for MRSA/ACBA=>ACBA may be colonized * STG 3 wounds:1. Mid back 2. Right Buttock * Unstageable: 1. Left ear 2. Tracheal 3. Right hip 4. Sacrum 5. Right ear 6. Left lateral calf7. Right calf 10. S/P Acute anemia=> GI work-up completed with no obvious bleeding source * s/p EGD 10/27/16 * s/p Colonoscopy 10/31/16 (+)MRSA Nares ->on Bactroban, s/p Vanco IV INVASIVES: Trach, PEG, FC (changed 11/11), PICC (10/25/2016) ABX ALLERGY: KNDA CURRENT ABX: #4 => Cefepime #4 + Cancidas #3 + Flagyl#3 s/p ABX 11 days Zyvox, Colistin, Flagyl-> DC'd 11/10 s/p Vanco IV + Merrem prior ID RECOMMENDATIONS 1. Continue Cefepime + Flagyl anaerobic coverage for PNA, decubs, GI 2. Continue Cancidas for yeast UTI = NOT C.Albicans == repeat ua C&S today if (+ )Change FC again * FC was already changed on 11/11/16 due to presence of yeast == start Cancidas will change FC again once med onboard * It is still dubious whether the source of sepsis is the Funguria vs PNA vs Decubs == will attempt to treat the yeast UTI 3. Continue topical wound treatment . Problems: Consultation Date/Type/Reason Admit Date/Time Nov 13, 2016 at 04:34 Type of Consultation: cv Exam/Review of Systems Vital Signs Vitals Vital Signs Date Time Temp Pulse Resp B/P Pulse Ox O2 Delivery O2 Flow Rate FiO2 11/16/16 12:00 79 11/16/16 11:40 21 95 35 11/16/16 11:15 89/53 11/16/16 11:00 Mechanical Ventilator 11/16/16 04:00 97.9 Intake and Output 11/15/16 11/15/16 11/16/16 15:00 23:00 07:00 Intake Total 324.96 ml 523.12 ml 295.00 ml Output Total 45 ml 60 ml 40 ml Balance 279.96 ml 463.12 ml 255.00 ml Results Result Diagram: 11/16/16 0445 11/16/16 0445 Results 24 hrs Laboratory Tests Test 11/15/16 18:59 11/15/16 23:45 11/16/16 04:45 11/16/16 06:04 Bedside Glucose 103 115 115 White Blood Count 12.4 H Red Blood Count 2.99 L Hemoglobin 8.2 L Hematocrit 26.2 L Mean Corpuscular Volume 87.6 Mean Corpuscular Hemoglobin 27.4 L Mean Corpuscular Hemoglobin Concent 31.3 L Red Cell Distribution Width 19.3 H Platelet Count 136 L Mean Platelet Volume 11.1 H Neutrophils % 70.0 Band Neutrophils % 6.0 H Lymphocytes % 12.0 L Monocytes % 3.0 Eosinophils % 3.0 Promyelocytes % Blast Cells % 1.0 H Neutrophils # 8.7 H Lymphocytes # 1.5 Monocytes # 0.4 Eosinophils # 0.4 Promyelocytes # Blastocytes # 0.1 Differential Comment MANUAL DIFF Sodium Level 138 Potassium Level 3.4 L Chloride Level 108 Carbon Dioxide Level 12 L Anion Gap 21 H Blood Urea Nitrogen 35 H Creatinine 2.06 H Glucose Level 99 Calcium Level 8.9 Test 11/16/16 13:48 Bedside Glucose 113 Medications Medications Current Medications Norepinephrine 16 mg/Dextrose 500 ml @ 1.87 mls/hr TITRATE IV Last administered on 11/16/16 06:14; Admin Dose 33.75 MLS/HR; Start 11/13/16 at 01: 00 Dobutamine HCl/ Dextrose 250 ml @ 12.75 mls/ hr TITRATE IV ; Start 11/13/16 at 06:00 Nitroglycerin (Nitroglycerin (Sl Tab) 0.4 Mg) 1 tab Q5M PRN SL CHEST PAIN; Start 11/13/16 at 06:00 Famotidine (Pepcid Iv) 20 mg DAILY IV Last administered on 11/16/16 09:22; Admin Dose 20 MG; Start 11/13/16 at 09:00 Insulin Aspart (Novolog Insulin Pen) NOVOLOG *MILD* ALGORITHM Q6 SC ; Start at 12:00 Diagnostic Test (Pha) (Accu-Chek) 1 ea 02 XX ; Start 11/15/16 at 02:00 Miscellaneous Information 1 ea NOTE XX ; Start 11/14/16 at 10:00 Glucose (Glutose) 15 gm Q15M PRN PO DECREASED GLUCOSE; Start 11/14/16 at 10:00 Glucose (Glutose) 22.5 gm Q15M PRN PO DECREASED GLUCOSE; Start 11/14/16 at 10: 00 Dextrose (D50w Syringe) 25 ml Q15M PRN IV DECREASED GLUCOSE Last administered on 11/14/16 13:05; Admin Dose 25 ML; Start 11/14/16 at 10:00 Dextrose (D50w Syringe) 50 ml Q15M PRN IV DECREASED GLUCOSE; Start 11/14/16 at 10:00 Glucagon (Glucagen) 1 mg Q15M PRN IM DECREASED GLUCOSE; Start 11/14/16 at 10:00 Glucose (Glutose) 15 gm Q15M PRN BUCCAL DECREASED GLUCOSE; Start 11/14/16 at 10 :00 Amiodarone HCl 200 mg 200 mg DAILY NGT Last administered on 11/16/16 09:22; Admin Dose 200 MG; Start 11/15/16 at 09:00 Metronidazole 100 ml @ 100 mls/hr Q8 IVPB Last administered on 11/16/16 06:11 ; Admin Dose 100 MLS/HR; Start 11/14/16 at 22:00 Caspofungin/ Sodium Chloride (Cancidas/NS) 250 ml @ 250 mls/hr Q24H IVPB Last administered on 11/15/16 17:36; Admin Dose 250 MLS/HR; Start 11/15/16 at 18:30 Collagenase (Santyl) 1 applic PRN PRN TOP FULL THICKNESS WOUND; Start 11/16/16 at 02:00 Collagenase 1 applic 1 applic DAILY TOP ; Start 11/16/16 at 09:00 Cefepime HCl (Maxipime 2gm/50 ml (Pmx)) 50 ml @ 100 mls/hr Q24H IVPB ; Start at 21:00 ANTON PORTILLO NP Nov 16, 2016 15:20
--- NOTE | 2016-11-16 15:33 | PN ---
Date/Time of Note Date/Time of Note DATE: 11/16/16 TIME: 15:32 Assessment/Plan VTE Prophylaxis VTE Prophylaxis Intervention: SCD's Assessment/Plan Chief Complaint/Hosp Course 1. Septic shock 2/2 urinary tract infection -cont Abx and Pressors now, ID consult appreciated 2. Hx of CVA with Debility with Chronic Ventilator-dependent respiratory failure -Continue vent management by board certified arts therapist 3. Non-ST myocardial infarction with elevated troponin, likely demand ischemia secondary to anemia. 4. Diabetic mellitus . Place the patient on Lantus, continue insulin sliding scale. 5. THEO due to ATN from sepsis and prerenal azotemia - stable cr 7. Sacral decubitus, continue wound care, status post surgical debridement on 11/01/2016, continue postop care CODE STATUS-DNR DVT prophylaxis; SCD, no Heparin/Lovenox due to GI bleeding Problems: Subjective 24 Hr Interval Summary Subjective hx not possible: pt non-verbal Exam/Review of Systems Vital Signs Vitals Vital Signs Date Time Temp Pulse Resp B/P Pulse Ox O2 Delivery O2 Flow Rate FiO2 11/16/16 12:00 79 11/16/16 11:40 21 95 35 11/16/16 11:15 89/53 11/16/16 11:00 Mechanical Ventilator 11/16/16 04:00 97.9 Intake and Output 11/15/16 11/15/16 11/16/16 15:00 23:00 07:00 Intake Total 324.96 ml 523.12 ml 295.00 ml Output Total 45 ml 60 ml 40 ml Balance 279.96 ml 463.12 ml 255.00 ml Exam Constitutional: non-verbal Respiratory: clear to auscultation Cardiovascular: regular rate and rhythm Gastrointestinal: soft, No distended Musculoskeletal: nl extremities to inspection Results Result Diagram: 11/16/16 0445 11/16/16 0445 Results 24 hrs Laboratory Tests Test 11/15/16 18:59 11/15/16 23:45 11/16/16 04:45 11/16/16 06:04 Bedside Glucose 103 115 115 White Blood Count 12.4 H Red Blood Count 2.99 L Hemoglobin 8.2 L Hematocrit 26.2 L Mean Corpuscular Volume 87.6 Mean Corpuscular Hemoglobin 27.4 L Mean Corpuscular Hemoglobin Concent 31.3 L Red Cell Distribution Width 19.3 H Platelet Count 136 L Mean Platelet Volume 11.1 H Neutrophils % 70.0 Band Neutrophils % 6.0 H Lymphocytes % 12.0 L Monocytes % 3.0 Eosinophils % 3.0 Promyelocytes % Blast Cells % 1.0 H Neutrophils # 8.7 H Lymphocytes # 1.5 Monocytes # 0.4 Eosinophils # 0.4 Promyelocytes # Blastocytes # 0.1 Differential Comment MANUAL DIFF Sodium Level 138 Potassium Level 3.4 L Chloride Level 108 Carbon Dioxide Level 12 L Anion Gap 21 H Blood Urea Nitrogen 35 H Creatinine 2.06 H Glucose Level 99 Calcium Level 8.9 Test 11/16/16 13:48 Bedside Glucose 113 Medications Medications Current Medications Norepinephrine 16 mg/Dextrose 500 ml @ 1.87 mls/hr TITRATE IV Last administered on 11/16/16 06:14; Admin Dose 33.75 MLS/HR; Start 11/13/16 at 01: 00 Dobutamine HCl/ Dextrose 250 ml @ 12.75 mls/ hr TITRATE IV ; Start 11/13/16 at 06:00 Nitroglycerin (Nitroglycerin (Sl Tab) 0.4 Mg) 1 tab Q5M PRN SL CHEST PAIN; Start 11/13/16 at 06:00 Famotidine (Pepcid Iv) 20 mg DAILY IV Last administered on 11/16/16 09:22; Admin Dose 20 MG; Start 11/13/16 at 09:00 Insulin Aspart (Novolog Insulin Pen) NOVOLOG *MILD* ALGORITHM Q6 SC ; Start at 12:00 Diagnostic Test (Pha) (Accu-Chek) 1 ea 02 XX ; Start 11/15/16 at 02:00 Miscellaneous Information 1 ea NOTE XX ; Start 11/14/16 at 10:00 Glucose (Glutose) 15 gm Q15M PRN PO DECREASED GLUCOSE; Start 11/14/16 at 10:00 Glucose (Glutose) 22.5 gm Q15M PRN PO DECREASED GLUCOSE; Start 11/14/16 at 10: 00 Dextrose (D50w Syringe) 25 ml Q15M PRN IV DECREASED GLUCOSE Last administered on 11/14/16 13:05; Admin Dose 25 ML; Start 11/14/16 at 10:00 Dextrose (D50w Syringe) 50 ml Q15M PRN IV DECREASED GLUCOSE; Start 11/14/16 at 10:00 Glucagon (Glucagen) 1 mg Q15M PRN IM DECREASED GLUCOSE; Start 11/14/16 at 10:00 Glucose (Glutose) 15 gm Q15M PRN BUCCAL DECREASED GLUCOSE; Start 11/14/16 at 10 :00 Amiodarone HCl 200 mg 200 mg DAILY NGT Last administered on 11/16/16 09:22; Admin Dose 200 MG; Start 11/15/16 at 09:00 Metronidazole 100 ml @ 100 mls/hr Q8 IVPB Last administered on 11/16/16 06:11 ; Admin Dose 100 MLS/HR; Start 11/14/16 at 22:00 Caspofungin/ Sodium Chloride (Cancidas/NS) 250 ml @ 250 mls/hr Q24H IVPB Last administered on 11/15/16 17:36; Admin Dose 250 MLS/HR; Start 11/15/16 at 18:30 Collagenase (Santyl) 1 applic PRN PRN TOP FULL THICKNESS WOUND; Start 11/16/16 at 02:00 Collagenase 1 applic 1 applic DAILY TOP ; Start 11/16/16 at 09:00 Cefepime HCl (Maxipime 2gm/50 ml (Pmx)) 50 ml @ 100 mls/hr Q24H IVPB ; Start at 21:00 ISIS BATISTA Nov 16, 2016 15:33
--- NOTE | 2016-11-16 17:29 | PN ---
DATE: 11/16/2016 SUBJECTIVE: The patient himself is not able to express any complaint and/or symptoms. He, however, does have a penoscrotal edema and swelling. He is on a respirator and has a G-tube and has had maxwell ss hematuria before, but that has cleared. OBJECTIVE FINDINGS: VITAL SIGNS: Temperature is 97.9. The blood pressure 89/53, pulse is 77, respiration is 22. ABDOMEN: Distended and obese. GENITOURINARY: External genitalia: Significant large swelling of the penis and the scrotum. The F oley catheter that he has is draining clear urine. There is no bleeding. LABORATORY DATA: CBC shows a white count of 12.4, hemoglobin 8.2, hematocrit 26.2. BUN is 35, crea tinine 2.06, sodium 138, potassium 3.4, chloride 108, CO2 of 12. The urine culture is showing yeast , not Sharyn albicans. The patient has been on caspofungin for that. IMPRESSION: Penoscrotal edema, and the patient has a history of gross hematuria that has cleared. PLAN: To keep the penis and the scrotum elevated on a towel all the time and keep the Ferreira cathete r in. Dictated By: TANA DUBOIS/GENOVEVA Conf#: [id number] DID#: [id number]
[2016-11-16] MEDS: CASPOFUNGIN 50 MG in SOD CHLORIDE 0.9% 250 ML IVPB SCH (18:56)
[2016-11-16] MEDS: CEFEPIME 2GM/50 ML IVPB SCH (20:07)
[2016-11-17] VITALS (97 sets, daily range): BP systolic 56–94; BP diastolic 35–73; PULSE 70–85; RESP 14–31
[2016-11-17] MEDS: ACCU-CHEK XX SCH (02:00)
[2016-11-17] MEDS: ALBUTEROL 18 GM INHALER INH SCH ×4 (02:36→20:14)
[2016-11-17 05:08] LABS: ADD UMIC YES; URINE BILIRUBIN (Dip) 1+ (NEGATIVE); URINE BLOOD (Dip) 3+ (NEGATIVE); URINE COLOR AMBER (YELLOW); URINE GLUCOSE (Dip) NEGATIVE (NEGATIVE); URINE KETONES (Dip) TRACE (NEGATIVE); URINE LEUKOCYTE ESTERASE (Dip) 2+ (NEGATIVE); URINE NITRITE (Dip) NEGATIVE (NEGATIVE); URINE TOTAL PROTEIN (Dip) 2+ (NEGATIVE); URINE UROBILINOGEN (Dip) 0.2 E.U./dL (0.1-1.0)
[2016-11-17 05:32] LABS: ICTOTEST NEGATIVE (NEGATIVE)
[2016-11-17 05:33] LABS: BACTERIA,URINE MODERATE; URINE RBCS >50 /HPF (0)
[2016-11-17] MEDS: metroNIDAZOLE 500 MG/NS (PMX) 100 ML IVPB SCH ×3 (05:33→22:27)
[2016-11-17] MEDS: INSULIN ASPART [NOVOLOG] 3 ML PEN SC SCH ×4 (05:35→17:30)
[2016-11-17 06:08] LABS: ADD SCAN DIFF NO
[2016-11-17 06:26] LABS: ABNORMAL IP MESSAGE 1; HEMATOCRIT 20.9 % (42.0-52.0); MEAN CORPUSCULAR HEMOGLOBIN 26.3 pg (29.0-33.0); MEAN CORPUSCULAR HGB CONC 29.7 g/dl (32.0-37.0); MEAN CORPUSCULAR VOLUME 88.6 fl (82.0-101.0); MEAN PLATELET VOLUME 10.9 fl (7.4-10.4); PLATELET COUNT 87 10^3/UL (140-415); RED BLOOD COUNT 2.36 10^6/ul (4.70-6.10); RED CELL DISTRIBUTION WIDTH 19.5 % (11.5-14.5); WHITE BLOOD COUNT 11.5 10^3/ul (4.8-10.8)
[2016-11-17 06:27] LABS: CALCIUM 8.9 mg/dl (8.4-10.2); CREATININE 1.93 mg/dl (0.61-1.24); POTASSIUM 3.4 mmol/L (3.5-5.1)
[2016-11-17 06:43] LABS: HEMOGLOBIN 6.2 g/dl (14.0-18.0)
[2016-11-17] MEDS ORDERED: SOD CHLORIDE 0.9% 250 ML IV* ONE (06:47)
[2016-11-17] MEDS: FAMOTIDINE 20 MG INJ IV SCH (08:23)
[2016-11-17] MEDS: COLLAGENASE 30 GM TUBE TOP SCH (08:24)
[2016-11-17] MEDS: AMIODARONE 200 MG TAB NGT SCH (08:24)
[2016-11-17 10:43] LABS: BASOPHIL # 0.1 10^3/ul (0.0-0.1); EOSINOPHILS # 0.5 10^3/ul (0.0-0.5); LYMPHOCYTES # 1.2 10^3/ul (0.8-2.9); NEUTROPHIL # 8.1 10^3/ul (1.6-7.5)
--- NOTE | 2016-11-17 10:58 | CONS ---
Date/Time of Note Date/Time of Note DATE: 11/17/16 TIME: 10:57 Consult Date/Type/Reason Admit Date/Time Nov 13, 2016 at 04:34 Type of Consultation: pulmonary ICU Subjective Patient remains unchanged this morning on mechanical ventilation and vasopressor support, agonal respiration Objective Vital Signs Date Time Temp Pulse Resp B/P Pulse Ox O2 Delivery O2 Flow Rate FiO2 11/17/16 10:15 74 20 89/53 94 11/17/16 10:00 Mechanical Ventilator 11/17/16 08:00 97.3 11/17/16 08:00 45 Intake and Output 11/16/16 11/16/16 11/17/16 15:00 23:00 07:00 Intake Total 269.99 ml 303.05 ml 595.61 ml Output Total 40 ml 40 ml 35 ml Balance 229.99 ml 263.05 ml 560.61 ml Exam PHYSICAL EXAMINATION GENERAL: Elderly gentleman, on mechanical ventilation VITAL SIGNS: see below. HEENT: Pupils equal, round, and reactive to light. Tracheostomy site clean and intact. CARDIAC: S1, S2, no added sounds or murmurs CHEST: Diminished air entry bilaterally. ABDOMEN: Mildly distended. No bowel sounds but no guarding or rebound EXTREMITIES: No cyanosis, clubbing or edema. NEUROLOGIC: Unable to assess Results/Medications Result Diagram: 11/17/16 0500 11/17/16 0500 Results 24 hrs Laboratory Tests Test 11/16/16 13:48 11/16/16 18:03 11/16/16 23:54 11/17/16 01:00 Bedside Glucose 113 103 95 Urine Color LANCE Urine Clarity CLOUDY H Urine pH 5.5 Urine Specific [place] 1.020 Urine Ketones TRACE Urine Nitrite NEGATIVE Urine Bilirubin 1+ H Urine Ictotest NEGATIVE Urine Urobilinogen 0.2 E.U./dL Urine Leukocyte Esterase 2+ H Urine Microscopic RBC >50 Urine Microscopic WBC >200 Urine Bacteria MODERATE Urine Hemoglobin 3+ H Urine Glucose NEGATIVE Urine Total Protein 2+ H Test 11/17/16 05:00 11/17/16 05:32 White Blood Count 11.5 H Red Blood Count 2.36 #L Hemoglobin 6.2 #*L Hematocrit 20.9 #L Mean Corpuscular Volume 88.6 Mean Corpuscular Hemoglobin 26.3 L Mean Corpuscular Hemoglobin Concent 29.7 L Red Cell Distribution Width 19.5 H Platelet Count 87 #L Mean Platelet Volume 10.9 H Neutrophils % 70.0 Band Neutrophils % 6.0 H Lymphocytes % 10.0 L Monocytes % 9.0 Eosinophils % 4.0 Basophils % 1.0 Nucleated Red Blood Cells % Neutrophils # 8.1 H Lymphocytes # 1.2 Monocytes # 1.0 H Eosinophils # 0.5 Basophils # 0.1 Nucleated Red Blood Cells # Differential Comment MANUAL DIFF Sodium Level 134 L Potassium Level 3.4 L Chloride Level 110 Carbon Dioxide Level 10 L Anion Gap 17 H Blood Urea Nitrogen 35 H Creatinine 1.93 H Glucose Level 91 Calcium Level 8.9 Bedside Glucose 91 Medications Current Medications Norepinephrine 16 mg/Dextrose 500 ml @ 1.87 mls/hr TITRATE IV Last administered on 11/17/16 06:23; Admin Dose 46.87 MLS/HR; Start 11/13/16 at 01: 00 Dobutamine HCl/ Dextrose 250 ml @ 12.75 mls/ hr TITRATE IV ; Start 11/13/16 at 06:00 Nitroglycerin (Nitroglycerin (Sl Tab) 0.4 Mg) 1 tab Q5M PRN SL CHEST PAIN; Start 11/13/16 at 06:00 Famotidine (Pepcid Iv) 20 mg DAILY IV Last administered on 11/17/16 08:23; Admin Dose 20 MG; Start 11/13/16 at 09:00 Insulin Aspart (Novolog Insulin Pen) NOVOLOG *MILD* ALGORITHM Q6 SC ; Start at 12:00 Diagnostic Test (Pha) (Accu-Chek) 1 ea 02 XX ; Start 11/15/16 at 02:00 Miscellaneous Information 1 ea NOTE XX ; Start 11/14/16 at 10:00 Glucose (Glutose) 15 gm Q15M PRN PO DECREASED GLUCOSE; Start 11/14/16 at 10:00 Glucose (Glutose) 22.5 gm Q15M PRN PO DECREASED GLUCOSE; Start 11/14/16 at 10: 00 Dextrose (D50w Syringe) 25 ml Q15M PRN IV DECREASED GLUCOSE Last administered on 11/14/16 13:05; Admin Dose 25 ML; Start 11/14/16 at 10:00 Dextrose (D50w Syringe) 50 ml Q15M PRN IV DECREASED GLUCOSE; Start 11/14/16 at 10:00 Glucagon (Glucagen) 1 mg Q15M PRN IM DECREASED GLUCOSE; Start 11/14/16 at 10:00 Glucose (Glutose) 15 gm Q15M PRN BUCCAL DECREASED GLUCOSE; Start 11/14/16 at 10 :00 Amiodarone HCl 200 mg 200 mg DAILY NGT Last administered on 11/16/16 09:22; Admin Dose 200 MG; Start 11/15/16 at 09:00 Metronidazole 100 ml @ 100 mls/hr Q8 IVPB Last administered on 11/17/16 05:33 ; Admin Dose 100 MLS/HR; Start 11/14/16 at 22:00 Caspofungin/ Sodium Chloride (Cancidas/NS) 250 ml @ 250 mls/hr Q24H IVPB Last administered on 11/16/16 18:56; Admin Dose 250 MLS/HR; Start 11/15/16 at 18:30 Collagenase (Santyl) 1 applic PRN PRN TOP FULL THICKNESS WOUND; Start 11/16/16 at 02:00 Collagenase 1 applic 1 applic DAILY TOP Last administered on 11/17/16 08:24; Admin Dose 1 APPLIC; Start 11/16/16 at 09:00 Cefepime HCl (Maxipime 2gm/50 ml (Pmx)) 50 ml @ 100 mls/hr Q24H IVPB Last administered on 11/16/16 20:07; Admin Dose 100 MLS/HR; Start 11/16/16 at 21:00 Assessment/Plan Chief Complaint/Hosp Course Assessment 1. Septic shock polymicrobial continues vasopressor 2. Vent dependent respiratory failure continues mechanical ventilation 3. History of CVA with encephalopathy change from baseline 4. Renal insufficiency with severe metabolic acidosis 5. Metabolic acidosis likely secondary to renal insufficiency 6. Dysphagia with G-tube 7. Acute abdomen concern for underlying ischemic patient is not a surgical candidate Critical care time 35 minutes Overall very poor prognosis Would hold blood transfusion as well as further aggressive care seems futile Problems: MUNIR DESHPANDE MD, [facility] Nov 17, 2016 10:58
[2016-11-17] MEDS ORDERED: PHENYLephrine 20MG IN 250 ML 250 ML IV SCH (11:00)
--- NOTE | 2016-11-17 11:30 | CONS ---
Date/Time of Note Date/Time of Note DATE: 11/17/16 TIME: 11:29 Assessment/Plan Assessment/Plan Additional Assessment/Plan Septic shock Acute blood loss anemia Elevated troponin likely secondary to above Respiratory failure Paroxysmal atrial fibrillation, currently sinus rhythm Paroxysmal atrial tachycardia Preserved ejection fraction Acute kidney injury -IV pressor to maintain SBP greater than 90 and her map above 60, if SBP does not remain above 90, second IV pressor to be started. Patient receiving blood transfusion. Antibiotics as per infectious disease. Withhold any antihypertensives at the current time. Continue maintenance amiodarone if no contraindication to help maintain in sinus rhythm. Potassium supplementation ordered. Consultation Date/Type/Reason Admit Date/Time Nov 13, 2016 at 04:34 Type of Consultation: cv 24 HR Interval Summary Free Text/Dictation Patient with worsening blood pressure this morning and severe anemia Exam/Review of Systems Vital Signs Vitals Vital Signs Date Time Temp Pulse Resp B/P Pulse Ox O2 Delivery O2 Flow Rate FiO2 11/17/16 10:15 74 20 89/53 94 11/17/16 10:00 Mechanical Ventilator 11/17/16 08:00 97.3 11/17/16 08:00 45 Intake and Output 11/16/16 11/16/16 11/17/16 15:00 23:00 07:00 Intake Total 269.99 ml 303.05 ml 595.61 ml Output Total 40 ml 40 ml 35 ml Balance 229.99 ml 263.05 ml 560.61 ml Exam Tachypneic, receiving blood transfusion Head: normocephalic Neck: other (Tracheostomy) Respiratory: other (Coarse breath sounds bilaterally, no wheezing) Cardiovascular: other (S1-S2 heard), regular rate and rhythm Gastrointestinal: bowel sounds, distended, non-tender, soft Extremities: edema Results Result Diagram: 11/17/16 0500 11/17/16 0500 Results 24 hrs Laboratory Tests Test 11/16/16 13:48 11/16/16 18:03 11/16/16 23:54 11/17/16 01:00 Bedside Glucose 113 103 95 Urine Color LANCE Urine Clarity CLOUDY H Urine pH 5.5 Urine Specific [place] 1.020 Urine Ketones TRACE Urine Nitrite NEGATIVE Urine Bilirubin 1+ H Urine Ictotest NEGATIVE Urine Urobilinogen 0.2 E.U./dL Urine Leukocyte Esterase 2+ H Urine Microscopic RBC >50 Urine Microscopic WBC >200 Urine Bacteria MODERATE Urine Hemoglobin 3+ H Urine Glucose NEGATIVE Urine Total Protein 2+ H Test 11/17/16 05:00 11/17/16 05:32 11/17/16 11:13 White Blood Count 11.5 H Red Blood Count 2.36 #L Hemoglobin 6.2 #*L Hematocrit 20.9 #L Mean Corpuscular Volume 88.6 Mean Corpuscular Hemoglobin 26.3 L Mean Corpuscular Hemoglobin Concent 29.7 L Red Cell Distribution Width 19.5 H Platelet Count 87 #L Mean Platelet Volume 10.9 H Neutrophils % 70.0 Band Neutrophils % 6.0 H Lymphocytes % 10.0 L Monocytes % 9.0 Eosinophils % 4.0 Basophils % 1.0 Nucleated Red Blood Cells % Neutrophils # 8.1 H Lymphocytes # 1.2 Monocytes # 1.0 H Eosinophils # 0.5 Basophils # 0.1 Nucleated Red Blood Cells # Differential Comment MANUAL DIFF Sodium Level 134 L Potassium Level 3.4 L Chloride Level 110 Carbon Dioxide Level 10 L Anion Gap 17 H Blood Urea Nitrogen 35 H Creatinine 1.93 H Glucose Level 91 Calcium Level 8.9 Bedside Glucose 91 109 Medications Medications Current Medications Norepinephrine 16 mg/Dextrose 500 ml @ 1.87 mls/hr TITRATE IV Last administered on 11/17/16 06:23; Admin Dose 46.87 MLS/HR; Start 11/13/16 at 01: 00 Dobutamine HCl/ Dextrose 250 ml @ 12.75 mls/ hr TITRATE IV ; Start 11/13/16 at 06:00 Nitroglycerin (Nitroglycerin (Sl Tab) 0.4 Mg) 1 tab Q5M PRN SL CHEST PAIN; Start 11/13/16 at 06:00 Famotidine (Pepcid Iv) 20 mg DAILY IV Last administered on 11/17/16 08:23; Admin Dose 20 MG; Start 11/13/16 at 09:00 Insulin Aspart (Novolog Insulin Pen) NOVOLOG *MILD* ALGORITHM Q6 SC ; Start at 12:00 Diagnostic Test (Pha) (Accu-Chek) 1 ea 02 XX ; Start 11/15/16 at 02:00 Miscellaneous Information 1 ea NOTE XX ; Start 11/14/16 at 10:00 Glucose (Glutose) 15 gm Q15M PRN PO DECREASED GLUCOSE; Start 11/14/16 at 10:00 Glucose (Glutose) 22.5 gm Q15M PRN PO DECREASED GLUCOSE; Start 11/14/16 at 10: 00 Dextrose (D50w Syringe) 25 ml Q15M PRN IV DECREASED GLUCOSE Last administered on 11/14/16 13:05; Admin Dose 25 ML; Start 11/14/16 at 10:00 Dextrose (D50w Syringe) 50 ml Q15M PRN IV DECREASED GLUCOSE; Start 11/14/16 at 10:00 Glucagon (Glucagen) 1 mg Q15M PRN IM DECREASED GLUCOSE; Start 11/14/16 at 10:00 Glucose (Glutose) 15 gm Q15M PRN BUCCAL DECREASED GLUCOSE; Start 11/14/16 at 10 :00 Amiodarone HCl 200 mg 200 mg DAILY NGT Last administered on 11/16/16 09:22; Admin Dose 200 MG; Start 11/15/16 at 09:00 Metronidazole 100 ml @ 100 mls/hr Q8 IVPB Last administered on 11/17/16 05:33 ; Admin Dose 100 MLS/HR; Start 11/14/16 at 22:00 Caspofungin/ Sodium Chloride (Cancidas/NS) 250 ml @ 250 mls/hr Q24H IVPB Last administered on 11/16/16 18:56; Admin Dose 250 MLS/HR; Start 11/15/16 at 18:30 Collagenase (Santyl) 1 applic PRN PRN TOP FULL THICKNESS WOUND; Start 11/16/16 at 02:00 Collagenase 1 applic 1 applic DAILY TOP Last administered on 11/17/16 08:24; Admin Dose 1 APPLIC; Start 11/16/16 at 09:00 Cefepime HCl 50 ml @ 100 mls/hr Q24H IVPB Last administered on 11/16/16 20:07 ; Admin Dose 100 MLS/HR; Start 11/16/16 at 21:00 Phenylephrine HCl (Rocky-Syneph) 250 ml @ 75 mls/hr TITRATE IV ; Start 11/17/16 at 11:00 Ervin Ceja DO Nov 17, 2016 11:30
[2016-11-17] MEDS ORDERED: POTASSIUM CHLORIDE 250 ML IVPB ONE (12:00)
--- NOTE | 2016-11-17 14:14 | PN ---
Date/Time of Note Date/Time of Note DATE: 11/17/16 TIME: 14:14 Assessment/Plan VTE Prophylaxis VTE Prophylaxis Intervention: SCD's Assessment/Plan Chief Complaint/Hosp Course 1. Septic shock 2/2 urinary tract infection -cont Abx and Pressors now, ID consult appreciated 2. 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 Non-ST myocardial infarction with elevated troponin, likely demand ischemia secondary to anemia. 4. Diabetic mellitus . Place the patient on Lantus, continue insulin sliding scale. 5. THEO due to ATN from sepsis and prerenal azotemia - stable cr 7. Sacral decubitus, continue wound care, status post surgical debridement on 11/01/2016, continue postop care CODE STATUS-DNR DVT prophylaxis; SCD, no Heparin/Lovenox due to GI bleeding Problems: Subjective 24 Hr Interval Summary Subjective hx not possible: pt non-verbal Exam/Review of Systems Vital Signs Vitals Vital Signs Date Time Temp Pulse Resp B/P Pulse Ox O2 Delivery O2 Flow Rate FiO2 11/17/16 11:50 74 20 97 50 11/17/16 10:15 89/53 11/17/16 10:00 Mechanical Ventilator 11/17/16 08:00 97.3 Intake and Output 11/16/16 11/16/16 11/17/16 15:00 23:00 07:00 Intake Total 269.99 ml 303.05 ml 595.61 ml Output Total 40 ml 40 ml 35 ml Balance 229.99 ml 263.05 ml 560.61 ml Exam Constitutional: non-verbal Respiratory: clear to auscultation Cardiovascular: regular rate and rhythm Gastrointestinal: soft, No distended Musculoskeletal: No nl extremities to inspection Results Result Diagram: 11/17/16 0500 11/17/16 0500 Results 24 hrs Laboratory Tests Test 11/16/16 18:03 11/16/16 23:54 11/17/16 01:00 11/17/16 05:00 Bedside Glucose 103 95 Urine Color LANCE Urine Clarity CLOUDY H Urine pH 5.5 Urine Specific [place] 1.020 Urine Ketones TRACE Urine Nitrite NEGATIVE Urine Bilirubin 1+ H Urine Ictotest NEGATIVE Urine Urobilinogen 0.2 E.U./dL Urine Leukocyte Esterase 2+ H Urine Microscopic RBC >50 Urine Microscopic WBC >200 Urine Bacteria MODERATE Urine Hemoglobin 3+ H Urine Glucose NEGATIVE Urine Total Protein 2+ H White Blood Count 11.5 H Red Blood Count 2.36 #L Hemoglobin 6.2 #*L Hematocrit 20.9 #L Mean Corpuscular Volume 88.6 Mean Corpuscular Hemoglobin 26.3 L Mean Corpuscular Hemoglobin Concent 29.7 L Red Cell Distribution Width 19.5 H Platelet Count 87 #L Mean Platelet Volume 10.9 H Neutrophils % 70.0 Band Neutrophils % 6.0 H Lymphocytes % 10.0 L Monocytes % 9.0 Eosinophils % 4.0 Basophils % 1.0 Nucleated Red Blood Cells % Neutrophils # 8.1 H Lymphocytes # 1.2 Monocytes # 1.0 H Eosinophils # 0.5 Basophils # 0.1 Nucleated Red Blood Cells # Differential Comment MANUAL DIFF Sodium Level 134 L Potassium Level 3.4 L Chloride Level 110 Carbon Dioxide Level 10 L Anion Gap 17 H Blood Urea Nitrogen 35 H Creatinine 1.93 H Glucose Level 91 Calcium Level 8.9 Test 11/17/16 05:32 11/17/16 11:13 Bedside Glucose 91 109 Medications Medications Current Medications Norepinephrine 16 mg/Dextrose 500 ml @ 1.87 mls/hr TITRATE IV Last administered on 11/17/16 06:23; Admin Dose 46.87 MLS/HR; Start 11/13/16 at 01: 00 Dobutamine HCl/ Dextrose 250 ml @ 12.75 mls/ hr TITRATE IV ; Start 11/13/16 at 06:00 Nitroglycerin (Nitroglycerin (Sl Tab) 0.4 Mg) 1 tab Q5M PRN SL CHEST PAIN; Start 11/13/16 at 06:00 Famotidine (Pepcid Iv) 20 mg DAILY IV Last administered on 11/17/16 08:23; Admin Dose 20 MG; Start 11/13/16 at 09:00 Insulin Aspart (Novolog Insulin Pen) NOVOLOG *MILD* ALGORITHM Q6 SC ; Start at 12:00 Diagnostic Test (Pha) (Accu-Chek) 1 ea 02 XX ; Start 11/15/16 at 02:00 Miscellaneous Information 1 ea NOTE XX ; Start 11/14/16 at 10:00 Glucose (Glutose) 15 gm Q15M PRN PO DECREASED GLUCOSE; Start 11/14/16 at 10:00 Glucose (Glutose) 22.5 gm Q15M PRN PO DECREASED GLUCOSE; Start 11/14/16 at 10: 00 Dextrose (D50w Syringe) 25 ml Q15M PRN IV DECREASED GLUCOSE Last administered on 11/14/16 13:05; Admin Dose 25 ML; Start 11/14/16 at 10:00 Dextrose (D50w Syringe) 50 ml Q15M PRN IV DECREASED GLUCOSE; Start 11/14/16 at 10:00 Glucagon (Glucagen) 1 mg Q15M PRN IM DECREASED GLUCOSE; Start 11/14/16 at 10:00 Glucose (Glutose) 15 gm Q15M PRN BUCCAL DECREASED GLUCOSE; Start 11/14/16 at 10 :00 Amiodarone HCl 200 mg 200 mg DAILY NGT Last administered on 11/16/16 09:22; Admin Dose 200 MG; Start 11/15/16 at 09:00 Metronidazole 100 ml @ 100 mls/hr Q8 IVPB Last administered on 11/17/16 13:33 ; Admin Dose 100 MLS/HR; Start 11/14/16 at 22:00 Caspofungin/ Sodium Chloride (Cancidas/NS) 250 ml @ 250 mls/hr Q24H IVPB Last administered on 11/16/16 18:56; Admin Dose 250 MLS/HR; Start 11/15/16 at 18:30 Collagenase (Santyl) 1 applic PRN PRN TOP FULL THICKNESS WOUND; Start 11/16/16 at 02:00 Collagenase 1 applic 1 applic DAILY TOP Last administered on 11/17/16 08:24; Admin Dose 1 APPLIC; Start 11/16/16 at 09:00 Cefepime HCl 50 ml @ 100 mls/hr Q24H IVPB Last administered on 11/16/16 20:07 ; Admin Dose 100 MLS/HR; Start 11/16/16 at 21:00 Phenylephrine HCl 250 ml @ 75 mls/hr TITRATE IV ; Start 11/17/16 at 11:00 Potassium Chloride (KCl 40 MEQ/250 ML NS) 250 ml @ 62.5 mls/hr ONCE ONCE IVPB Last administered on 11/17/16 11:53; Admin Dose 62.5 MLS/HR; Start 11/17/16 at 12:00; Stop 11/17/16 at 15:59 ISIS BATISTA Nov 17, 2016 14:14
--- NOTE | 2016-11-17 14:29 | CONS ---
Date/Time of Note Date/Time of Note DATE: 11/17/16 TIME: 14:18 Assessment/Plan Assessment/Plan Chief Complaint/Hosp Course ID PROGRESS NOTE CURRENT ABX DAY #5 => Cefepime #5 + Cancidas #4+ Flagyl#4 * s/p ABX 11 days Zyvox, Colistin, Flagyl-> DC'd 11/10 * s/p Vanco IV + Merrem prior 24H INTERVAL SUMMARY * Chronic encephalopathy -- noncommunicative on the Vent, pressors continue (+) Anasarca * btunded on the Vent, eyes open staring at ceiling non-tracking (+)Anasarca, large ascites * CHRONIC RECURRENT SEPSIS => Chronic encephalopathy, stable on pressors in ICU , no fevers, VDRF * Low grade temps, leukocytosis * Pt with multiple chronic wound on admission from [facility] -- patient reportedly refused to be moved by staff * Penoscrotal edema, and the patient has a history of gross hematuria that has cleared. PHYSICAL EXAMINATION: GENERAL: VSS, NAD, Afebrile HEENT: Unremarkable NECK: Supple, trach-> Vent secure CHEST: Rise symmetrical, without dyspnea on observation HEART: Pulse RRR ABDOMEN: Soft, peg EXTREMITIES: Warm, trace edema SKIN: See wound photos ID ASSESSMENT 76 yo M admit with: 1. Recurrent sepsis w/shock, Tmax 99.2, WBC 11.8 on Levophed admitted back to [facility] <24H after DC to [place] = REMAINS SEPTIC * s/p recent polymicrobial bacteremia due to multifactorial infx conditions below => RESOLVED 2. Recurrent yeast UTI 11/13/16, FC was changed 11/11/16 due to presence of yeast on prior cx 11/10/16 * s/p recent GNR UTI -/ received full course ABX Rx for recurrent urinary tract infection => s/p Colistin 11 days w/Primaxin Rx prior to Colistin 3. Chronic respiratory failure-> trach/Vent 4. Dysphagia -> s/p PEG 5. 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 CHF w/anasarca, ascites = fluid overloaded * 11/13 CXR 1. Mild failure with new left pleural effusion. 2. Differential considerations include left lung base pneumonia in setting of sepsis. * 11/13 CT ABD Moderate bilateral pleural effusions with extensive associated atelectasis. Concurrent pneumonia would not be excluded. Large intra-abdominal ascites and anasarca. 7. Atrial fibrillation. 8. Diabetes, blood sugars controlled. 9. Chronic decubs present on admission from SNF => s/p debridement 11/01/16 * s/p lengthy ABX course for MRSA/ACBA=>ACBA may be colonized * STG 3 wounds:1. Mid back 2. Right Buttock * Unstageable: 1. Left ear 2. Tracheal 3. Right hip 4. Sacrum 5. Right ear 6. Left lateral calf7. Right calf 10. S/P Acute anemia=> GI work-up completed with no obvious bleeding source * s/p EGD 10/27/16 * s/p Colonoscopy 10/31/16 (+)MRSA Nares ->on Bactroban, s/p Vanco IV INVASIVES: Trach, PEG, FC (changed 11/11), PICC (10/25/2016) ABX ALLERGY: KNDA CURRENT ABX: #5 => Cefepime #5 + Cancidas #4+ Flagyl #4 s/p ABX 11 days Zyvox, Colistin, Flagyl-> DC'd 11/10 s/p Vanco IV + Merrem prior ID RECOMMENDATIONS 1. Continue Cefepime + Flagyl anaerobic coverage for PNA, decubs, GI 2. Continue Cancidas for yeast UTI = NOT C.Albicans * == 11/16/16 repeat ua (-)Yeast if (+)recurrent yeast on final C&S then Change FC again * FC was already changed on 11/11/16 due to presence of yeast == start Cancidas will change FC again once med onboard * It is still dubious whether the source of sepsis is the Funguria vs PNA vs Decubs == will attempt to treat the yeast UTI 3. Continue topical wound treatment . Problems: Consultation Date/Type/Reason Admit Date/Time Nov 13, 2016 at 04:34 Type of Consultation: cv Exam/Review of Systems Vital Signs Vitals Vital Signs Date Time Temp Pulse Resp B/P Pulse Ox O2 Delivery O2 Flow Rate FiO2 11/17/16 11:50 74 20 97 50 11/17/16 10:15 89/53 11/17/16 10:00 Mechanical Ventilator 11/17/16 08:00 97.3 Intake and Output 11/16/16 11/16/16 11/17/16 15:00 23:00 07:00 Intake Total 269.99 ml 303.05 ml 595.61 ml Output Total 40 ml 40 ml 35 ml Balance 229.99 ml 263.05 ml 560.61 ml Results Result Diagram: 11/17/16 0500 11/17/16 0500 Results 24 hrs Laboratory Tests Test 11/16/16 18:03 11/16/16 23:54 11/17/16 01:00 11/17/16 05:00 Bedside Glucose 103 95 Urine Color LANCE Urine Clarity CLOUDY H Urine pH 5.5 Urine Specific [place] 1.020 Urine Ketones TRACE Urine Nitrite NEGATIVE Urine Bilirubin 1+ H Urine Ictotest NEGATIVE Urine Urobilinogen 0.2 E.U./dL Urine Leukocyte Esterase 2+ H Urine Microscopic RBC >50 Urine Microscopic WBC >200 Urine Bacteria MODERATE Urine Hemoglobin 3+ H Urine Glucose NEGATIVE Urine Total Protein 2+ H White Blood Count 11.5 H Red Blood Count 2.36 #L Hemoglobin 6.2 #*L Hematocrit 20.9 #L Mean Corpuscular Volume 88.6 Mean Corpuscular Hemoglobin 26.3 L Mean Corpuscular Hemoglobin Concent 29.7 L Red Cell Distribution Width 19.5 H Platelet Count 87 #L Mean Platelet Volume 10.9 H Neutrophils % 70.0 Band Neutrophils % 6.0 H Lymphocytes % 10.0 L Monocytes % 9.0 Eosinophils % 4.0 Basophils % 1.0 Nucleated Red Blood Cells % Neutrophils # 8.1 H Lymphocytes # 1.2 Monocytes # 1.0 H Eosinophils # 0.5 Basophils # 0.1 Nucleated Red Blood Cells # Differential Comment MANUAL DIFF Sodium Level 134 L Potassium Level 3.4 L Chloride Level 110 Carbon Dioxide Level 10 L Anion Gap 17 H Blood Urea Nitrogen 35 H Creatinine 1.93 H Glucose Level 91 Calcium Level 8.9 Test 11/17/16 05:32 11/17/16 11:13 Bedside Glucose 91 109 Medications Medications Current Medications Norepinephrine 16 mg/Dextrose 500 ml @ 1.87 mls/hr TITRATE IV Last administered on 11/17/16t 06:23; Admin Dose 46.87 MLS/HR; Start 11/13/16 at 01: 00 Dobutamine HCl/ Dextrose 250 ml @ 12.75 mls/ hr TITRATE IV ; Start 11/13/16 at 06:00 Nitroglycerin (Nitroglycerin (Sl Tab) 0.4 Mg) 1 tab Q5M PRN SL CHEST PAIN; Start 11/13/16 at 06:00 Famotidine (Pepcid Iv) 20 mg DAILY IV Last administered on 11/17/16 08:23; Admin Dose 20 MG; Start 11/13/16 at 09:00 Insulin Aspart (Novolog Insulin Pen) NOVOLOG *MILD* ALGORITHM Q6 SC ; Start at 12:00 Diagnostic Test (Pha) (Accu-Chek) 1 ea 02 XX ; Start 11/15/16 at 02:00 Miscellaneous Information 1 ea NOTE XX ; Start 11/14/16 at 10:00 Glucose (Glutose) 15 gm Q15M PRN PO DECREASED GLUCOSE; Start 11/14/16 at 10:00 Glucose (Glutose) 22.5 gm Q15M PRN PO DECREASED GLUCOSE; Start 11/14/16 at 10: 00 Dextrose (D50w Syringe) 25 ml Q15M PRN IV DECREASED GLUCOSE Last administered on 11/14/16 13:05; Admin Dose 25 ML; Start 11/14/16 at 10:00 Dextrose (D50w Syringe) 50 ml Q15M PRN IV DECREASED GLUCOSE; Start 11/14/16 at 10:00 Glucagon (Glucagen) 1 mg Q15M PRN IM DECREASED GLUCOSE; Start 11/14/16 at 10:00 Glucose (Glutose) 15 gm Q15M PRN BUCCAL DECREASED GLUCOSE; Start 11/14/16 at 10 :00 Amiodarone HCl 200 mg 200 mg DAILY NGT Last administered on 11/16/16 09:22; Admin Dose 200 MG; Start 11/15/16 at 09:00 Metronidazole 100 ml @ 100 mls/hr Q8 IVPB Last administered on 11/17/16 13:33 ; Admin Dose 100 MLS/HR; Start 11/14/16 at 22:00 Caspofungin/ Sodium Chloride (Cancidas/NS) 250 ml @ 250 mls/hr Q24H IVPB Last administered on 11/16/16 18:56; Admin Dose 250 MLS/HR; Start 11/15/16 at 18:30 Collagenase (Santyl) 1 applic PRN PRN TOP FULL THICKNESS WOUND; Start 11/16/16 at 02:00 Collagenase 1 applic 1 applic DAILY TOP Last administered on 11/17/16 08:24; Admin Dose 1 APPLIC; Start 11/16/16 at 09:00 Cefepime HCl 50 ml @ 100 mls/hr Q24H IVPB Last administered on 11/16/16 20:07 ; Admin Dose 100 MLS/HR; Start 11/16/16 at 21:00 Phenylephrine HCl 250 ml @ 75 mls/hr TITRATE IV ; Start 11/17/16 at 11:00 Potassium Chloride (KCl 40 MEQ/250 ML NS) 250 ml @ 62.5 mls/hr ONCE ONCE IVPB Last administered on 11/17/16 11:53; Admin Dose 62.5 MLS/HR; Start 11/17/16 at 12:00; Stop 11/17/16 at 15:59 ANTON PORTILLO NP Nov 17, 2016 14:28
[2016-11-17] MEDS: CASPOFUNGIN 50 MG in SOD CHLORIDE 0.9% 250 ML IVPB SCH (17:41)
[2016-11-17] MEDS ORDERED: PHENYLephrine 20MG IN 250 ML 250 ML ONE (18:13)
[2016-11-17] MEDS: PHENYLephrine 160 MG in DEXTROSE 5% 484 ML IV SCH (18:31)
[2016-11-17] MEDS: CEFEPIME 2GM/50 ML IVPB SCH (21:36)
[2016-11-18] VITALS (87 sets, daily range): BP systolic 43–72; BP diastolic 25–51; PULSE 0–78; RESP 12–27
[2016-11-18] MEDS: ACCU-CHEK XX SCH (01:02)
[2016-11-18] MEDS: ALBUTEROL 18 GM INHALER INH SCH ×4 (01:50→19:07)
[2016-11-18] MEDS: PHENYLephrine 160 MG in DEXTROSE 5% 484 ML IV SCH ×2 (03:40→12:12)
[2016-11-18] MEDS: INSULIN ASPART [NOVOLOG] 3 ML PEN SC SCH ×4 (05:30→17:55)
[2016-11-18] MEDS: metroNIDAZOLE 500 MG/NS (PMX) 100 ML IVPB SCH ×2 (05:30→16:02)
[2016-11-18] MEDS: AMIODARONE 200 MG TAB NGT SCH (08:59)
[2016-11-18] MEDS: COLLAGENASE 30 GM TUBE TOP SCH (08:59)
[2016-11-18] MEDS: FAMOTIDINE 20 MG INJ IV SCH (09:05)
--- NOTE | 2016-11-18 09:55 | CONS ---
Date/Time of Note Date/Time of Note DATE: 11/18/16 TIME: 09:52 Assessment/Plan Assessment/Plan Additional Assessment/Plan Ventilator settings; AC of 12, tidal volume 550, PEEP of 0, 50% FiO2. Patient currently on Levophed at 30 mics per minute, phenylephrine at 300 mics per minute. Assessment recommendations; 1. Patient admitted for severe sepsis from decubitus ulcers as well as UTI. 2. Profound shock. 3. Multi-infarct dementia. 4. Atrial fibrillation. 5. Anemia. 6. Acute renal insufficiency. Continue current supportive care. Prognosis is dismal. About 35 minutes of critical care time was spent evaluating the patient. Consultation Date/Type/Reason Admit Date/Time Nov 13, 2016 at 04:34 Type of Consultation: Pulmonary/critical care 24 HR Interval Summary Free Text/Dictation Patient condition remains extremely critical. Requiring high-dose pressor support with combination phenylephrine and Levophed drip. Remains profoundly unresponsive. General exam; elderly male, on ventilator via tracheostomy unresponsive, currently in no distress. Exam/Review of Systems Vital Signs Vitals Vital Signs Date Time Temp Pulse Resp B/P Pulse Ox O2 Delivery O2 Flow Rate FiO2 11/18/16 09:15 69 21 67/47 96 11/18/16 09:00 Mechanical Ventilator 11/18/16 08:00 95.8 11/18/16 05:00 50 Intake and Output 11/17/16 11/17/16 11/18/16 15:00 23:00 07:00 Intake Total 1150.00 ml 1509.385 ml 1121.865 ml Output Total 70 ml 40 ml 10 ml Balance 1080.00 ml 1469.385 ml 1111.865 ml Exam HEENT exam; supple neck, positive JVD. No lymphadenopathy. Midline trachea. No thyromegaly. Tracheostomy in place. Chest examination; diminished breath sounds bilaterally. S1-S2 audible, atrial fibrillation. No murmurs. Abdomen examination; soft, G-tube in place. Bowel sounds are very sluggish. Extremity exam is; no peripheral edema. Patient has contractures involving all 4 extremity's. OLIVE PICKER examination; patient remains unresponsive. Results Result Diagram: 11/17/16 0500 11/17/16 0500 Results 24 hrs Laboratory Tests Test 11/17/16 11:13 11/17/16 16:54 11/18/16 00:36 11/18/16 04:57 Bedside Glucose 109 91 96 94 Medications Medications Current Medications Norepinephrine 16 mg/Dextrose 500 ml @ 1.87 mls/hr TITRATE IV Last administered on 11/18/16 09:43; Admin Dose 1.87 MLS/HR; Start 11/13/16 at 01:00 Dobutamine HCl/ Dextrose 250 ml @ 12.75 mls/ hr TITRATE IV ; Start 11/13/16 at 06:00 Nitroglycerin (Nitroglycerin (Sl Tab) 0.4 Mg) 1 tab Q5M PRN SL CHEST PAIN; Start 11/13/16 at 06:00 Famotidine (Pepcid Iv) 20 mg DAILY IV Last administered on 11/18/16 09:05; Admin Dose 20 MG; Start 11/13/16 at 09:00 Insulin Aspart (Novolog Insulin Pen) NOVOLOG *MILD* ALGORITHM Q6 SC ; Start at 12:00 Diagnostic Test (Pha) (Accu-Chek) 1 ea 02 XX ; Start 11/15/16 at 02:00 Miscellaneous Information 1 ea NOTE XX ; Start 11/14/16 at 10:00 Glucose (Glutose) 15 gm Q15M PRN PO DECREASED GLUCOSE; Start 11/14/16 at 10:00 Glucose (Glutose) 22.5 gm Q15M PRN PO DECREASED GLUCOSE; Start 11/14/16 at 10: 00 Dextrose (D50w Syringe) 25 ml Q15M PRN IV DECREASED GLUCOSE Last administered on 11/14/16 13:05; Admin Dose 25 ML; Start 11/14/16 at 10:00 Dextrose (D50w Syringe) 50 ml Q15M PRN IV DECREASED GLUCOSE; Start 11/14/16 at 10:00 Glucagon (Glucagen) 1 mg Q15M PRN IM DECREASED GLUCOSE; Start 11/14/16 at 10:00 Glucose (Glutose) 15 gm Q15M PRN BUCCAL DECREASED GLUCOSE; Start 11/14/16 at 10 :00 Amiodarone HCl 200 mg 200 mg DAILY NGT Last administered on 11/16/16 09:22; Admin Dose 200 MG; Start 11/15/16 at 09:00 Metronidazole 100 ml @ 100 mls/hr Q8 IVPB Last administered on 11/18/16 05:30 ; Admin Dose 100 MLS/HR; Start 11/14/16 at 22:00 Caspofungin/ Sodium Chloride (Cancidas/NS) 250 ml @ 250 mls/hr Q24H IVPB Last administered on 11/17/16 17:41; Admin Dose 250 MLS/HR; Start 11/15/16 at 18:30 Collagenase (Santyl) 1 applic PRN PRN TOP FULL THICKNESS WOUND; Start 11/16/16 at 02:00 Collagenase 1 applic 1 applic DAILY TOP Last administered on 11/17/16 08:24; Admin Dose 1 APPLIC; Start 11/16/16 at 09:00 Cefepime HCl 50 ml @ 100 mls/hr Q24H IVPB Last administered on 11/17/16 21:36 ; Admin Dose 100 MLS/HR; Start 11/16/16 at 21:00 Phenylephrine HCl/ Dextrose (Rocky-Syneph/D5W) 500 ml @ 18.75 mls/ hr TITRATE IV Last administered on 11/18/16 03:40; Admin Dose 56.25 MLS/HR; Start 11/17/16 at 18:30 JORGE ROBLES Nov 18, 2016 09:54
--- NOTE | 2016-11-18 13:51 | PN ---
DATE: 11/18/2016 SUBJECTIVE: History of gross hematuria, which has cleared, and urinary tract infection. The patien t is on a respirator and he does have some secretions coming out of his mouth. He has a tracheostom y. OBJECTIVE: VITAL SIGNS: His temperature is 96.9, pulse is 71, respirations 22, blood pressure 70/45. GENITOURINARY: The Ferreira catheter is draining clear urine. There is no hematuria at the present. LABORATORY DATA: CBC shows a white count of 11.5. The urine culture did show yeast. The patient i s on caspofungin. IMPRESSION: Gross hematuria that has cleared. The Ferreira catheter is in place and draining well. T he patient's condition is critical. His condition has not improved and he appears to have deteriora raymond from the time I was seeing him before. Dictated By: TNAA DUBOIS/GENOVEVA Conf#: [id number] DID#: [id number]
[2016-11-18] MEDS ORDERED: morphine 2 MG INJ IV PRN (16:00)
--- NOTE | 2016-11-18 16:32 | PN ---
Date/Time of Note Date/Time of Note DATE: 11/18/16 TIME: 16:31 Assessment/Plan VTE Prophylaxis VTE Prophylaxis Intervention: SCD's Assessment/Plan Chief Complaint/Hosp Course 1. Septic shock 2/2 urinary tract infection -cont Abx and Pressors now, ID consult appreciated 2. Hx of CVA with Debility with Chronic Ventilator-dependent respiratory failure -Continue vent management by plasma cutting machine operator 3. Non-ST myocardial infarction with elevated troponin, likely demand ischemia secondary to anemia. 4. Diabetic mellitus . Place the patient on Lantus, continue insulin sliding scale. 5. THEO due to ATN from sepsis and prerenal azotemia - stable cr 7. Sacral decubitus, continue wound care, status post surgical debridement on 11/01/2016, continue postop care CODE STATUS-DNR DVT prophylaxis; SCD, no Heparin/Lovenox due to GI bleeding Problems: Subjective 24 Hr Interval Summary Subjective hx not possible: pt non-verbal Exam/Review of Systems Vital Signs Vitals Vital Signs Date Time Temp Pulse Resp B/P Pulse Ox O2 Delivery O2 Flow Rate FiO2 11/18/16 16:00 98.6 77 23 60/41 91 11/18/16 09:00 Mechanical Ventilator 11/18/16 08:15 45 Intake and Output 11/17/16 11/17/16 11/18/16 15:00 23:00 07:00 Intake Total 1150.00 ml 1509.385 ml 1121.865 ml Output Total 70 ml 40 ml 10 ml Balance 1080.00 ml 1469.385 ml 1111.865 ml Exam Constitutional: non-verbal Respiratory: clear to auscultation Cardiovascular: regular rate and rhythm Gastrointestinal: soft, No distended Musculoskeletal: nl extremities to inspection Results Result Diagram: 11/17/16 0500 11/17/16 0500 Results 24 hrs Laboratory Tests Test 11/17/16 16:54 11/18/16 00:36 11/18/16 04:57 11/18/16 11:58 Bedside Glucose 91 96 94 91 Medications Medications Current Medications Norepinephrine 16 mg/Dextrose 500 ml @ 1.87 mls/hr TITRATE IV Last administered on 11/18/16t 09:43; Admin Dose 1.87 MLS/HR; Start 11/13/16 at 01:00 Dobutamine HCl/ Dextrose 250 ml @ 12.75 mls/ hr TITRATE IV ; Start 11/13/16 at 06:00 Nitroglycerin (Nitroglycerin (Sl Tab) 0.4 Mg) 1 tab Q5M PRN SL CHEST PAIN; Start 11/13/16 at 06:00 Famotidine (Pepcid Iv) 20 mg DAILY IV Last administered on 11/18/16 09:05; Admin Dose 20 MG; Start 11/13/16 at 09:00 Insulin Aspart (Novolog Insulin Pen) NOVOLOG *MILD* ALGORITHM Q6 SC ; Start at 12:00 Diagnostic Test (Pha) (Accu-Chek) 1 ea 02 XX ; Start 11/15/16 at 02:00 Miscellaneous Information 1 ea NOTE XX ; Start 11/14/16 at 10:00 Glucose (Glutose) 15 gm Q15M PRN PO DECREASED GLUCOSE; Start 11/14/16 at 10:00 Glucose (Glutose) 22.5 gm Q15M PRN PO DECREASED GLUCOSE; Start 11/14/16 at 10: 00 Dextrose (D50w Syringe) 25 ml Q15M PRN IV DECREASED GLUCOSE Last administered on 11/14/16 13:05; Admin Dose 25 ML; Start 11/14/16 at 10:00 Dextrose (D50w Syringe) 50 ml Q15M PRN IV DECREASED GLUCOSE; Start 11/14/16 at 10:00 Glucagon (Glucagen) 1 mg Q15M PRN IM DECREASED GLUCOSE; Start 11/14/16 at 10:00 Glucose (Glutose) 15 gm Q15M PRN BUCCAL DECREASED GLUCOSE; Start 11/14/16 at 10 :00 Amiodarone HCl 200 mg 200 mg DAILY NGT Last administered on 11/16/16 09:22; Admin Dose 200 MG; Start 11/15/16 at 09:00 Metronidazole 100 ml @ 100 mls/hr Q8 IVPB Last administered on 11/18/16 16:02 ; Admin Dose 100 MLS/HR; Start 11/14/16 at 22:00 Caspofungin/ Sodium Chloride (Cancidas/NS) 250 ml @ 250 mls/hr Q24H IVPB Last administered on 11/17/16 17:41; Admin Dose 250 MLS/HR; Start 11/15/16 at 18:30 Collagenase (Santyl) 1 applic PRN PRN TOP FULL THICKNESS WOUND; Start 11/16/16 at 02:00 Collagenase 1 applic 1 applic DAILY TOP Last administered on 11/17/16 08:24; Admin Dose 1 APPLIC; Start 11/16/16 at 09:00 Cefepime HCl 50 ml @ 100 mls/hr Q24H IVPB Last administered on 11/17/16 21:36 ; Admin Dose 100 MLS/HR; Start 11/16/16 at 21:00 Phenylephrine HCl/ Dextrose (Rocky-Syneph/D5W) 500 ml @ 18.75 mls/ hr TITRATE IV Last administered on 11/18/16 12:12; Admin Dose 56.25 MLS/HR; Start 11/17/16 at 18:30 Morphine Sulfate (morphine) 2 mg Q2H PRN IV PAIN; Start 11/18/16 at 16:00 ISIS BATISTA Nov 18, 2016 16:32
--- NOTE | 2016-11-18 17:46 | CONS ---
Date/Time of Note Date/Time of Note DATE: 11/18/16 TIME: 17:41 Assessment/Plan Assessment/Plan Chief Complaint/Hosp Course ID PROGRESS NOTE CURRENT ABX DAY #6 => Cefepime #6 + Cancidas #5+ Flagyl#5 * s/p ABX 11 days Zyvox, Colistin, Flagyl-> DC'd 11/10 * s/p Vanco IV + Merrem prior 24H INTERVAL SUMMARY * Severe anemia * Repeat urine 11/17 shows YEAST has not cleared - despite Cancidas and change of FC on 11/10 * Penoscrotal edema, and the patient has a history of gross hematuria that has cleared. Michael: 11/17/16-99 Rcvd: 11/17/16 [facility] CATH Sp Descrip: Microbiology URINE CULTURE Preliminary Organism 1 YEAST COLONY COUNT >100,000 CFU/ml PHYSICAL EXAMINATION: GENERAL: VSS, NAD, Afebrile HEENT: Unremarkable NECK: Supple, trach-> Vent secure CHEST: Rise symmetrical, without dyspnea on observation HEART: Pulse RRR ABDOMEN: Soft, peg EXTREMITIES: Warm, trace edema SKIN: See wound photos ID ASSESSMENT 76 yo M admit with: 1. Recurrent sepsis w/shock, Tmax 99.2, WBC 11.8 on Levophed admitted back to [facility] <24H after DC to [place] = REMAINS SEPTIC * s/p recent polymicrobial bacteremia due to multifactorial infx conditions below => RESOLVED 2. Recurrent yeast UTI 11/13/16, FC was changed 11/11/16 due to presence of yeast on prior cx 11/10/16 * s/p recent GNR UTI -/ received full course ABX Rx for recurrent urinary tract infection => s/p Colistin 11 days w/Primaxin Rx prior to Colistin 3. Chronic respiratory failure-> trach/Vent 4. Dysphagia -> s/p PEG 5. 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 CHF w/anasarca, ascites = fluid overloaded * 11/13 CXR 1. Mild failure with new left pleural effusion. 2. Differential considerations include left lung base pneumonia in setting of sepsis. * 11/13 CT ABD Moderate bilateral pleural effusions with extensive associated atelectasis. Concurrent pneumonia would not be excluded. Large intra-abdominal ascites and anasarca. 7. Atrial fibrillation. 8. Diabetes, blood sugars controlled. 9. Chronic decubs present on admission from SNF => s/p debridement 11/01/16 * s/p lengthy ABX course for MRSA/ACBA=>ACBA may be colonized * STG 3 wounds:1. Mid back 2. Right Buttock * Unstageable: 1. Left ear 2. Tracheal 3. Right hip 4. Sacrum 5. Right ear 6. Left lateral calf7. Right calf 10. S/P Acute anemia=> GI work-up completed with no obvious bleeding source * s/p EGD 10/27/16 * s/p Colonoscopy 10/31/16 (+)MRSA Nares ->on Bactroban, s/p Vanco IV INVASIVES: Trach, PEG, FC (changed 11/11), PICC (10/25/2016) ABX ALLERGY: KNDA CURRENT ABX: #5 => Cefepime #5 + Cancidas #4+ Flagyl #4 s/p ABX 11 days Zyvox, Colistin, Flagyl-> DC'd 11/10 s/p Vanco IV + Merrem prior ID RECOMMENDATIONS 1. Continue Cefepime + Flagyl anaerobic coverage for PNA, decubs, GI 2. Continue Cancidas for yeast UTI = NOT C.Albicans 3. Recommend to advise on whether it is appropriate to change the FC again or not = concern HEMATURIA in setting anemia * Severe anemia * Repeat urine 11/17 shows YEAST has not cleared - despite Cancidas and change of FC on 11/10 * Penoscrotal edema, and the patient has a history of gross hematuria that has cleared. Michael: 11/17/16-0100 Rcvd: 11/17/16-0503 PO[facility] CATH Sp Descrip: Microbiology URINE CULTURE Preliminary Organism 1 YEAST COLONY COUNT >100,000 CFU/ml . Problems: Consultation Date/Type/Reason Admit Date/Time Nov 13, 2016 at 04:34 Type of Consultation: ID Exam/Review of Systems Vital Signs Vitals Vital Signs Date Time Temp Pulse Resp B/P Pulse Ox O2 Delivery O2 Flow Rate FiO2 11/18/16 16:00 77 11/18/16 16:00 98.6 23 60/41 91 11/18/16 09:00 Mechanical Ventilator 11/18/16 08:15 45 Intake and Output 11/17/16 11/17/16 11/18/16 15:00 23:00 07:00 Intake Total 1150.00 ml 1509.385 ml 1121.865 ml Output Total 70 ml 40 ml 10 ml Balance 1080.00 ml 1469.385 ml 1111.865 ml Results Result Diagram: 11/17/16 0500 11/17/16 0500 Results 24 hrs Laboratory Tests Test 11/18/16 00:36 11/18/16 04:57 11/18/16 11:58 Bedside Glucose 96 94 91 Medications Medications Current Medications Norepinephrine 16 mg/Dextrose 500 ml @ 1.87 mls/hr TITRATE IV Last administered on 11/18/16 09:43; Admin Dose 1.87 MLS/HR; Start 11/13/16 at 01:00 Dobutamine HCl/ Dextrose 250 ml @ 12.75 mls/ hr TITRATE IV ; Start 11/13/16 at 06:00 Nitroglycerin (Nitroglycerin (Sl Tab) 0.4 Mg) 1 tab Q5M PRN SL CHEST PAIN; Start 11/13/16 at 06:00 Famotidine (Pepcid Iv) 20 mg DAILY IV Last administered on 11/18/16 09:05; Admin Dose 20 MG; Start 11/13/16 at 09:00 Insulin Aspart (Novolog Insulin Pen) NOVOLOG *MILD* ALGORITHM Q6 SC ; Start at 12:00 Diagnostic Test (Pha) (Accu-Chek) 1 ea 02 XX ; Start 11/15/16 at 02:00 Miscellaneous Information 1 ea NOTE XX ; Start 11/14/16 at 10:00 Glucose (Glutose) 15 gm Q15M PRN PO DECREASED GLUCOSE; Start 11/14/16 at 10:00 Glucose (Glutose) 22.5 gm Q15M PRN PO DECREASED GLUCOSE; Start 11/14/16 at 10: 00 Dextrose (D50w Syringe) 25 ml Q15M PRN IV DECREASED GLUCOSE Last administered on 11/14/16 13:05; Admin Dose 25 ML; Start 11/14/16 at 10:00 Dextrose (D50w Syringe) 50 ml Q15M PRN IV DECREASED GLUCOSE; Start 11/14/16 at 10:00 Glucagon (Glucagen) 1 mg Q15M PRN IM DECREASED GLUCOSE; Start 11/14/16 at 10:00 Glucose (Glutose) 15 gm Q15M PRN BUCCAL DECREASED GLUCOSE; Start 11/14/16 at 10 :00 Amiodarone HCl 200 mg 200 mg DAILY NGT Last administered on 11/16/16 09:22; Admin Dose 200 MG; Start 11/15/16 at 09:00 Metronidazole 100 ml @ 100 mls/hr Q8 IVPB Last administered on 11/18/16 16:02 ; Admin Dose 100 MLS/HR; Start 11/14/16 at 22:00 Caspofungin/ Sodium Chloride (Cancidas/NS) 250 ml @ 250 mls/hr Q24H IVPB Last administered on 11/17/16 17:41; Admin Dose 250 MLS/HR; Start 11/15/16 at 18:30 Collagenase (Santyl) 1 applic PRN PRN TOP FULL THICKNESS WOUND; Start 11/16/16 at 02:00 Collagenase 1 applic 1 applic DAILY TOP Last administered on 11/17/16 08:24; Admin Dose 1 APPLIC; Start 11/16/16 at 09:00 Cefepime HCl 50 ml @ 100 mls/hr Q24H IVPB Last administered on 11/17/16 21:36 ; Admin Dose 100 MLS/HR; Start 11/16/16 at 21:00 Phenylephrine HCl/ Dextrose (Rocky-Syneph/D5W) 500 ml @ 18.75 mls/ hr TITRATE IV Last administered on 11/18/16 12:12; Admin Dose 56.25 MLS/HR; Start 11/17/16 at 18:30 Morphine Sulfate (morphine) 2 mg Q2H PRN IV PAIN; Start 11/18/16 at 16:00 ANTON PORTILLO NP Nov 18, 2016 17:46
[2016-11-18] MEDS: CASPOFUNGIN 50 MG in SOD CHLORIDE 0.9% 250 ML IVPB SCH (17:55)
[2016-11-18] MEDS: DEXTROSE 50% 50 ML SYRINGE IV PRN (17:57)
--- NOTE | 2016-11-18 21:48 | EN ---
Date/Time of Note Date/Time of Note DATE: 11/18/16 TIME: 21:47 Event Note Medicine Medicine Event Note note I was called by nurse that pt has and asked to pronounce. patient however was pronounce by Nurse Lead Network Engineer. Time of was 20:53. I have re- confirm with my own exam. patient had no pulse, unresponsive to noxious stimuli , no gag or corneal reflex and pupils were unresponsive to light. Per nurse, family was aware and were at bedside just a little while ago. . GARCIA EVANS MD Nov 18, 2016 21:48
--- NOTE | 2016-11-19 19:50 | DS ---
DATE OF ADMISSION: 11/13/2016 DATE OF DISCHARGE: 11/18/2016 FINAL DIAGNOSES: 1. Cardiopulmonary arrest secondary to severe sepsis from underlying decubitus ulcers. 2. Underlying history of debility from stroke status post percutaneous endoscopic gastrostomy and t racheostomy. HOSPITAL COURSE: The patient is a 76-year-old male with a history of CVA with chronic debility. He is status post trach and PEG with multiple hospitalizations for sepsis from UTI and ulcers. The pa roma also has a history of ____uria, depression, diabetes, and CKD. The patient presented once aga in with sepsis requiring pressors. It was felt to be due to UIT and/or patient's multiple decubitus ulcers. Conversation was had with the patient's son. It was decided that it was best that the pat ient be a DNR. The patient was requiring multiple pressors. Ultimately, the patient succumbed to h is comorbidities and he went into cardiac arrest. He was pronounced by the instrumental musician on the evenin g on 11/18/2016. Time of was reported at 2052 on 11/18/2016. The patient, once again, was pr onounced by the instrumental musician welcome wagon hostess. Dictated By: ISIS BATISTA MD BS/NTS Conf#: [id number] DID#: [id number] CC: CHATA SOLIS MD;*EndCC*
--- NOTE | 2016-11-20 07:39 | PN ---
DATE: 11/18/2016 CARDIOLOGY FOLLOWUP SUBJECTIVE: Discussed with the staff. Rhythm strip was reviewed. The patient remains status post trach on the vent in ICU on multiple pressors. Maxed out and is severely hypotensive. Remains in s inus rhythm, though has frequent PACs. Nonverbal, unresponsive. MEDICATIONS: Reviewed as per medication reconciliation, personally reviewed. On quadruple a nd Levophed drip. PHYSICAL EXAMINATION: VITAL SIGNS: Temperature 96.9, heart rate of 70, blood pressure 70/45, respiratory rate of 24, satu rating 95%. HEENT: Normocephalic, atraumatic. Eyes: Left pupil is dilated more than right. Both are dilated though. CARDIOVASCULAR: Regular rate and rhythm, systolic murmur. PULMONARY: With diffuse rhonchi. GASTROINTESTINAL: Positive for edema, status post PEG. EXTREMITIES: Diffuse lower extremity edema. NEUROLOGIC: Lethargic, does not respond to verbal or painful stimuli. LABORATORY DATA: WBC of 11.5, hemoglobin of 6.2, platelets of 87. Sodium 134, potassium 3.4, BUN o f 35, creatinine 1.93, glucose of 91. INR as of 11/13/2016 was 2. Chest x-ray on 11/15/2016 showed retrocardiac opacity. ASSESSMENT AND PLAN: 1. Severe sepsis. 2. Septic shock. 3. History of paroxysmal atrial fibrillation, currently remains in sinus rhythm in fact. 4. Severe hypotension. 5. Pneumonia. 6. Decubitus ulcers as well as urinary tract infection. 7. Multi-infarct dementia. 8. Severe anemia. 9. Renal failure. RECOMMENDATIONS: We will continue with ICU care for now. Vent support will be continued. Continue with the current pressors. Prognosis is very poor. Antibiotics will be continued and managed as p er ID recommendations. Code status is DNR now. Transfusion as per internal medicine. Consider pal liative care, but for the time being, we will continue with the ICU care and current cardiac care. More than 36 minutes of critical care time was spent in management of this patient excluding any pro cedures. Dictated By: BOY RANDOLPH MD AV/NTS Conf#: [id number] DID#: [id number] CC: JORGE ROBLES MD; ISIS BATISTA MD;*EndCC*
== END 2016-11-18 20:53 | disposition expired | DRG 870 ==
LOC: E/R 22:44 → ICU 11-13 04:34
PROVIDERS: ADMIT Family Medicine; ATTEND Family Medicine
PROC: 5A1955Z Respiratory Ventilation, Greater than 96 Consecutive Hours (ICD-10-PCS; principal; 2016-11-13)
DX: A41.9 Sepsis, unspecified organism (principal); R65.21 Severe sepsis with septic shock; J18.9 Pneumonia, unspecified organism; N17.0 Acute kidney failure with tubular necrosis; L89.154 Pressure ulcer of sacral region, stage 4; G93.40 Encephalopathy, unspecified; L89.894 Pressure ulcer of other site, stage 4; Z99.11 Dependence on respirator [ventilator] status; J96.10 Chronic respiratory failure, unspecified whether with hypoxia or hypercapnia; L89.103 Pressure ulcer of unspecified part of back, stage 3; E87.2 Acidosis; N39.0 Urinary tract infection, site not specified; I47.1 Supraventricular tachycardia; I69.398 Other sequelae of cerebral infarction; R53.81 Other malaise; F01.50 Vascular dementia, unspecified severity, without behavioral disturbance, psychotic disturbance, mood disturbance, and anxiety; I48.0 Paroxysmal atrial fibrillation; R13.10 Dysphagia, unspecified; E11.649 Type 2 diabetes mellitus with hypoglycemia without coma; D64.9 Anemia, unspecified; R33.9 Retention of urine, unspecified; N50.89 Other specified disorders of the male genital organs; E66.9 Obesity, unspecified; Z68.32 Body mass index [BMI] 32.0-32.9, adult; Z93.1 Gastrostomy status; Z93.0 Tracheostomy status; Z22.322 Carrier or suspected carrier of Methicillin resistant Staphylococcus aureus; Z66 Do not resuscitate
CPT/HCPCS: 36415; 36430; 36600; 71010; 74176; 80048; 80053; 81001; 81003; 82140; 82803; 82962; 83605; 83615; 83735; 84100; 84484; 85025; 85610; 85730; 86850; 86900; 86901; 86920; 87040; 87081; 87086; 93005; 94002; 94003; 94640; 96374; 96375; J0692; J1815; J2370; J2543; J3370; J3480; J7030; J7040; J7050; J7060; P9016